=== PATIENT | female | born 1960 | race Two or more races ===

== ENCOUNTER 2020-05-05 12:31 | Outpatient (REF) | payer OTHER, SELFPAY | END 2020-05-05 12:32 | disposition home or self-care (01) | LOC: HO.LAB 12:31 | PROVIDERS: PCP Internal Medicine; Visit Provider Urology | DX: N39.0 Urinary tract infection, site not specified (principal) | CPT/HCPCS: 87086; 87088; 87186 ==

== ENCOUNTER → 2020-10-16 09:46 | Outpatient (BNVA) | payer OTHER, SELFPAY | PROVIDERS: PCP Internal Medicine; Visit Provider Urology | DX: R32 Unspecified urinary incontinence (principal) | CPT/HCPCS: 99212 ==

== ENCOUNTER → 2020-12-11 09:45 | Outpatient (BNVA) | payer OTHER, SELFPAY | PROVIDERS: PCP Internal Medicine | DX: R32 Unspecified urinary incontinence (principal) | CPT/HCPCS: 99212 ==

== ENCOUNTER → 2021-03-30 14:48 | Outpatient (BNVA) | payer OTHER, SELFPAY | PROVIDERS: PCP Hospitalist ==

== ENCOUNTER 2021-04-23 11:21 | Outpatient (RCR) | payer OTHER, SELFPAY ==
--- NOTE | 2021-04-23 13:09 | MHC.PT.EP ---
[facility] [place] Office [place] Office [place] Office [address] Dilip Aguillon [address] [phone] F: [phone] F: [phone] F: [phone] F: [phone] Physical Therapy Plan of Care Date of Evaluation: Date of Surgery: Diagnosis: unspecified urinary incontinence. Assessment: The patient arrived reporting severe mixed urinary incontinence including Stress, Urge, and functional. This has negatively affected her quality of life. She has incontinence that causes her to have to wear a large pad at all times. This saturated pad irritates the skin in her bikini line. 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 This limits her ability to use the bathroom. She also reports fecal incontinence. She is a good candidate for skilled pelvic floor rehab to discuss bladder irritants, diet and lifestyle changes, as well as an internal pelvic muscle exam to assess her strength. The patient deferred internal exam today. Pt also educated about decreasing pressure on her abdomen with her clothing and during functional movements. Frequency and Duration: The patient will be seen 1x/week x 4 weeks. Short Term Goals: 1. Pt to be able to correctly activate her PFM to allow improved support to bowel and bladder. 2. Pt to be able to demonstrate diaphragmatic breathing to improve pressure exchange and intra abdominal load management. [facility] Goals: 3. Pt to be educated on bladder irritants in order to decrease UI triggers 4. Pt to complete a voiding log in order to accurately assess her bladder habits 5. Pt to be educated on behavior training to help decrease urge incontinence. Treatment Plan: Modalities to reduce pain, spasms and effusion. Manual therapy to restore motion and function. Therapeutic exercise to improve strength and flexibility. Neuromuscular re-education for posture and balance. Therapeutic activities to return to functional activities of daily living. Electronically signed by: Please sign and return to therapist. Thank you for your referral.
== END 2021-07-06 11:59 | disposition home or self-care (01) ==
LOC: HO.PT 11:21
PROVIDERS: PCP Hospitalist
DX: R32 Unspecified urinary incontinence (principal)
CPT/HCPCS: 97112; 97163; 97530

== ENCOUNTER → 2021-08-14 08:21 | Outpatient (BNVA) | payer OTHER, SELFPAY | PROVIDERS: PCP Hospitalist | DX: R32 Unspecified urinary incontinence (principal); N39.0 Urinary tract infection, site not specified | CPT/HCPCS: 99212 ==

== ENCOUNTER 2021-09-16 07:25 | Emergency (ER) | payer OTHER, SELFPAY ==
--- NOTE | ~2021-09-16 | CT_ITS ---
EXAMINATION: CT ABDOMEN AND PELVIS WITHOUT CONTRAST CLINICAL INFORMATION: Left-sided abdominal pain. COMPARISON: None TECHNIQUE: Multidetector volumetric imaging was performed from the superior aspect of the liver through the pubic symphysis. Sagittal and coronal reformatted images were obtained on the technologist's workstation. Lack of intravenous and oral contrast limits visceral evaluation. This CT examination was performed using dose optimization techniques as appropriate, variously including the following: *Automated exposure control *Adjustment of mA and/or kV according to patient size (this includes techniques or standardized protocols for targeted exams where dose is matched to indication/reason for exam; i.e. extremities or head) *Use of iterative reconstruction technique DLP: 1139 mGy-cm FINDINGS: LUNG BASES: Mild bibasilar linear atelectasis/scarring. No pleural or pericardial effusions. LIVER, GALLBLADDER, AND BILIARY TREE: Mild diffuse decreased hepatic attenuation with minimal focal fatty sparing adjacent to gallbladder. Minimally distended gallbladder without surrounding abnormality. PANCREAS: Mild fatty infiltration in the head without surrounding abnormality. No pancreatic ductal dilatation. SPLEEN: Unremarkable. ADRENAL GLANDS: Unremarkable. KIDNEYS AND URETERS: The kidneys are normal in size, shape, and attenuation. No hydronephrosis, hydroureter, or calculi seen. No perinephric stranding. BLADDER: Unremarkable. GASTROINTESTINAL TRACT: The stomach, small bowel and appendix are unremarkable. The colon and rectum are unremarkable. ABDOMINAL WALL: No significant hernia is appreciated. LYMPH NODES: No lymphadenopathy. VASCULAR: Unremarkable. PELVIC VISCERA: Unremarkable. OSSEOUS STRUCTURES: Unremarkable. CT/CT abdomen pelvis wo con IMPRESSION: 1. No acute intra-abdominal/pelvic abnormality to explain the patient's pain. 2. Hepatic steatosis. Fleischner guidelines were followed.
[2021-09-16 07:28] VITALS: BP 168/48; PULSE 88; RESP 16; TEMP 35.9; O2SAT 100; BMI 39.6
--- NOTE | 2021-09-16 08:39 | ED.ABDPAIN ---
HPI - Abdominal Pain General Chief Complaint: Abdominal Pain Stated Complaint: painfull ball in abd Time Seen by Provider: 09/16/21 08:26 Source: patient Mode of arrival: ambulatory Limitations: no limitations History of Present Illness HPI narrative: 60-year-old female came in for evaluation of left-sided abdominal pain and feeling bulging of left upper quadrant. Patient's symptoms started few months ago and gradually getting worse, patient was seen and evaluated by her PCP diagnosed with muscular pain. Patient presented today for feeling the pain is worse, pain described as severe 10/10 left upper abdominal and dull aching pain, no radiation, no aggravating factors, no relieving factors. No other symptoms associated with the pain. Normal bowel movement, no nausea, no vomiting, no recent unintentional loss of weight. Related Data Home Medications Medication Instructions Recorded Confirmed alcohol swabs pad TOPICAL TID 10/16/20 amlodipine 5 mg tablet 5 mg PO DAILY 10/16/20 apixaban 5 mg tablet 5 mg PO BID 10/16/20 atorvastatin 10 mg tablet 10 mg PO DAILY 10/16/20 blood sugar diagnostic #10 ea 10/16/20 cholecalciferol (vitamin D3) 50 50 mcg PO BEDTIME 10/16/20 mcg (2,000 unit) capsule citalopram 20 mg tablet 20 mg PO DAILY 10/16/20 citalopram 40 mg tablet 40 mg PO DAILY 10/16/20 diclofenac sodium 1 % topical gel g TOPICAL 10/16/20 fluticasone propionate 50 0 mcg INTRANASAL BID 10/16/20 mcg/actuation nasal spray,suspension hydrochlorothiazide 25 mg tablet 25 mg PO QAM 10/16/20 lancets 30 gauge #100 ea 10/16/20 loratadine 10 mg tablet 10 mg PO DAILY 10/16/20 losartan 100 mg tablet 100 mg PO DAILY 10/16/20 metformin 850 mg tablet 850 mg PO BID 10/16/20 metoprolol succinate 100 mg 100 mg PO DAILY 10/16/20 tablet,extended release 24 hr montelukast 10 mg tablet 10 mg PO DAILY 10/16/20 omeprazole 20 mg capsule,delayed 20 mg PO DAILY 10/16/20 release oxycodone 30 mg tablet 30 mg PO TID PRN 10/16/20 pen needle, diabetic 32 gauge x #50 ea 10/16/20 temazepam 30 mg capsule 30 mg PO BEDTIME PRN 10/16/20 triamcinolone acetonide 0.025 % appl TOPICAL 10/16/20 topical cream tizanidine 4 mg tablet 4 mg PO TID PRN 12/11/20 12/11/20 benzonatate 100 mg capsule 100 mg PO TID 08/14/21 dulaglutide 3 mg/0.5 mL mg SUBCUT QWEEK 08/14/21 subcutaneous pen injector (Trulicity) gemfibrozil 600 mg tablet 600 mg PO BID 08/14/21 insulin glargine 100 unit/mL (3 unit SUBCUT BEDTIME 08/14/21 mL) subcutaneous pen (Lantus Solostar U-100 Insulin) insulin lispro 100 unit/mL 30 unit SUBCUT TID 08/14/21 subcutaneous pen metronidazole 0.75 % vaginal gel 1 appful VAGINAL BEDTIME 08/14/21 Previous Rx's Medication Instructions Recorded incontinence pad, liner, disp #90 ea 10/16/20 (Poise Pads) nitrofurantoin macrocrystal 50 mg 50 mg PO BEDTIME 10 Days #10 cap 12/31/20 capsule Allergies Allergy/AdvReac Type Severity Reaction Status Date / Time oxybutynin Allergy Severe Difficulty Verified 08/14/21 08:39 Swallowing tolterodine Allergy Severe Difficulty Verified 08/14/21 08:39 Swallowing acetaminophen [Percocet] Allergy Unknown hives Verified 08/14/21 08:39 aspirin Allergy Unknown anaphylaxis Verified 08/14/21 08:39 citalopram Allergy Unknown Unknown Verified 08/14/21 08:39 gabapentin Allergy Unknown hives Verified 08/14/21 08:39 hydrocodone [Vicodin] Allergy Unknown hives Verified 08/14/21 08:39 naproxen [Naprosyn] Allergy Unknown anaphylaxis Verified 08/14/21 08:39 oxycodone [Percocet] Allergy Unknown hives Verified 08/14/21 08:39 sertraline Allergy Unknown Unknown Verified 08/14/21 08:39 peanut Allergy Anaphylaxis Verified 09/16/21 09:19 solifenacin AdvReac phlegm Unverified 08/27/21 13:11 Vicodin Allergy Unknown hives Uncoded 10/22/19 00:00 Review of Systems Review of Systems All other systems are reviewed and are negative Constitutional: Reports as per HPI and Reports no additional constitutional complaints Eyes: Reports as per HPI and Reports no additional eye complaints Reports system reviewed and no additional complaints, except as documented Cardiovascular: Reports as per HPI and Reports no additional cardiovascular complaints Respiratory: Reports as per HPI and Reports no additional respiratory complaints Gastrointestinal: Reports as per HPI and Reports no additional gastrointestinal complaints Genitourinary: Reports no additional female genitourinary complaints Musculoskeletal: Reports no additional musculoskeletal complaints Skin/Breast: Reports system reviewed and no additional complaints, except as docu Psychiatric: Reports no additional psychiatric complaints Endocrine: Reports no additional endocrine complaints Hematologic/Lymphatic: Reports no additional hematologic/lymphatic complaints Allergic/Immunologic: Reports no additional allergic/immunologic complaints Reports system reviewed and no additional complaints, except as documented and Reports Abnormal speech present [facility] Past Medical History Medical History Diabetes mellitus HTN (hypertension) Urinary incontinence Urinary incontinence UTI (urinary tract infection) Surgical History History of surgery Social History Social History Alcohol intake: never Patient Tobacco Use Status: Never used Tobacco Use of substances other than those prescribed or required for medical reasons: No Advance Directives: No Advance Directives Information Provided: No Physical Exam ED Vital Signs: Vital Signs - 24 hr 09/16/21 07:28 09/16/21 08:54 09/16/21 10:18 Temperature 96.6 F L Pulse Rate 88 84 92 Respiratory Rate 16 16 16 Blood Pressure 168/48 H 130/74 104/76 Pulse Oximetry 100 100 98 BMI result Body Mass Index 39.6 Vital signs have been reviewed as appeared to be correct. Blood pressure normal. Heart rate normal. Respiration rate normal. Temperature normal. Oxygen saturation normal. Appearance: Alert. Oriented X3. No acute distress. Head: Normal external exam. Normocephalic. Atraumatic. No Butt signs noted. No raccoon eyes noted Eyes: PERRLA. EOMI. Conjunctiva and sclera normal. Eyelids normal. ENT: TM's Normal. Pharynx normal. Uvula midline. Moist mucous membranes. No trismus noted. No drooling noted. No muffled voice noted. Neck: Normal inspection. Neck supple. FROM. No adenopathy. Thyroid Normal. No meningeal signs. No neck mass noted. CVS: Normal heart rate and rhythm. Heart sound normal. No murmurs noted. Pulses normal throughout. Respiratory: No respiratory distress. Painless inspiration. Breath sounds normal. No wheezes/rales/rhonchi noted. Chest nontender. No accessory muscle usage noted or decreased air movement noted. Abdomen: Soft, mild left upper quadrant tenderness, no palpable mass. No guarding, no rebound tenderness. Bowel sounds normal in all 4 quadrants. No distention noted. No organomegaly noted. No visible injury noted. Back: No CVA tenderness. Full range of motion noted. Skin: Skin warm and dry. Normal skin color. Normal skin turgor. No rashes/lesions/lacerations noted. Extremities: No lower extremity edema. Extremities exhibit normal range of motion. Extremities nontender. Neuro: Oriented X 3. Cranial nerve exam: II-XII are grossly intact No motor deficit. No sensory deficit. Reflexes normal. Course Course Course Narrative: Assessment and plan. 60-year-old female came in with left upper quadrant tenderness for the past few weeks, has been evaluated by her PCP and was told it was muscular, returned today for increased pain in the left upper abdominal area, patient declined chest pain or difficulty breathing, patient had a CT of the abdomen pelvis which was unremarkable for hernia or colon pathology. Patient was reassured, will discharge to follow-up with her PCP and continue with heating pad and using [id number] Tylenol for pain control. MDM - Abdominal Pain Lab Data Attestation: I reviewed the patient's lab results. Result diagrams: 09/16/21 08:44 09/16/21 08:44 Labs: Lab Results 09/16/21 09/16/21 09/16/21 Range/Units 08:44 08:44 10:55 WBC 8.2 (4.8-10.8) X10*3/uL RBC 4.24 (4.20-5.50) X10*6/uL Hgb 12.6 (12.0-16.0) g/dl Hct 38.4 (37.0-47.0) % MCV 90.6 (80.0-98.0) fL MCH 29.7 (27.0-33.0) pg MCHC 32.8 (31.0-35.0) g/dl RDW 13.5 (11.0-16.0) % Plt Count 229 (160-400) X10*3/uL MPV 9.2 L (9.4-12.3) fL Immature Gran % (Auto) 0.4 (0.0-0.4) % Neut % (Auto) 59.5 (45-73) % Lymph % (Auto) 29.3 (20-40) % [place]ven % (Auto) 6.1 (2-11) % Eos % (Auto) 4.3 H (0-4) % Baso % (Auto) 0.4 (0-2) % Lymph # (Auto) 2.4 (1.2-4.9) X10*3/uL [place]ven # (Auto) 0.5 (0.1-1.2) X10*3/uL Eos # (Auto) 0.4 (0.0-0.4) X10*3/uL Baso # (Auto) 0.0 (0.0-0.2) X10*3/uL Abs Immat Gran (auto) 0.03 (0.00-0.03) X10*3/uL Absolute Neuts (auto) 4.9 (2.0-8.3) x10*3/uL Absolute Nucleated RBC 0.000 (0.0-0.012) X10*3/uL Nucleated RBC % (auto) 0.0 (0.0-0.2) /100WBC Sodium 136 (135-145) mmol/L Potassium 4.5 (3.3-5.1) mmol/L Chloride 100 (96-108) mmol/L Carbon Dioxide 26 (22-29) mmol/L Anion Gap 15 (12-20) BUN 15 (9-16) mg/dL Creatinine 1.09 (0.5-1.4) mg/dL Estim Creat Clear Calc 61.6 Estimated GFR 52 Random Glucose 242 H (60-115) mg/dL Calcium 10.0 (8.4-10.2) mg/dL Total Bilirubin 0.8 (0.0-1.0) mg/dL Direct Bilirubin 0.3 (0.0-0.5) mg/dL AST 18 (5-31) U/L ALT 23 (0-31) U/L Alkaline Phosphatase 84 (39-117) U/L Total Protein 6.5 (6.5-8.0) g/dL Albumin 3.9 (3.5-5.0) g/dL Lipase 34 (8-78) U/L Urine Color YELLOW Urine Appearance CLEAR Urine pH 6.0 (5.0-8.0) Ur Specific [place] 1.015 (1.005-1.025) Urine Protein NEG (NEG-TRACE) MG/DL Urine Glucose (UA) NEG (NEG) MG/DL Urine Ketones NEG (NEG) MG/DL Urine Blood NEG (NEG) Urine Nitrite NEG (NEG) Ur Leukocyte Esterase NEG (NEG) Imaging Data CT scan - abdomen: Attestation: I personally reviewed and interpreted this imaging study as follows: Radiologist's impression: 1. No acute intra-abdominal/pelvic abnormality to explain the patient's pain. 2. Hepatic steatosis.? ? Discharge Plan Discharge Clinical Impression: Abdominal pain Patient Disposition: Home, Self-Care Instructions: Abdominal Pain (ED) Prescriptions: No Action nitrofurantoin macrocrystal 50 mg capsule 50 mg PO BEDTIME 10 Days Qty: 10 1RF Rx Instructions: must administer with a meal/food (DME) lancets 30 gauge misc See Rx Instructions ea .ROUTE TID Qty: 100 0RF Rx Instructions: As directed (DME) pen needle, diabetic 32 gauge x 5/32 needle See Rx Instructions ea .ROUTE .MEDSUPPLY Qty: 50 0RF Rx Instructions: As directed cholecalciferol (vitamin D3) 50 mcg (2,000 unit) capsule 50 mcg PO BEDTIME 0RF diclofenac sodium 1 % gel topical 0RF loratadine 10 mg tablet 10 mg PO DAILY 0RF fluticasone propionate 50 mcg/actuation spray,suspension 0 mcg intranasal BID 0RF losartan 100 mg tablet 100 mg PO DAILY 0RF hydrochlorothiazide 25 mg tablet 25 mg PO QAM 0RF alcohol swabs Pads, Medicated topical TID 0RF montelukast 10 mg tablet 10 mg PO DAILY 0RF omeprazole 20 mg capsule,delayed release(DR/EC) 20 mg PO DAILY 0RF temazepam 30 mg capsule 30 mg PO BEDTIME PRN0RF citalopram 20 mg tablet 20 mg PO DAILY 0RF amlodipine 5 mg tablet 5 mg PO DAILY 0RF (DME) FreeStyle Lite Strips Strip See Rx Instructions strip Not Applicable TID Qty: 10 0RF Rx Instructions: As directed metformin 850 mg tablet 850 mg PO BID 0RF metoprolol succinate 100 mg tablet extended release 24 hr 100 mg PO DAILY 0RF atorvastatin 10 mg tablet 10 mg PO DAILY 0RF citalopram 40 mg tablet 40 mg PO DAILY 0RF Eliquis 5 mg tablet 5 mg PO BID 0RF oxycodone 30 mg tablet 30 mg PO TID PRN0RF triamcinolone acetonide 0.025 % cream topical 0RF (DME) Poise Pads Pad See Rx Instructions .ROUTE .MEDSUPPLY Qty: 90 0RF Rx Instructions: As directed tizanidine 4 mg tablet 4 mg PO TID PRN0RF benzonatate 100 mg capsule 100 mg PO TID 0RF metronidazole 0.75 % gel 1 appful vaginal BEDTIME 0RF Trulicity 3 mg/0.5 mL pen injector subcut QWEEK 0RF Lantus Solostar U-100 Insulin 100 unit/mL (3 mL) insulin pen subcut BEDTIME 0RF insulin lispro 100 unit/mL insulin pen 30 unit subcut TID 0RF gemfibrozil 600 mg tablet 600 mg PO BID 0RF Referrals: Bagn Hilario MD [Primary Care Provider] -
[2021-09-16 08:52] LABS: MANUAL DIFF FLAG NO
[2021-09-16 08:54] VITALS: BP 130/74; PULSE 84; RESP 16; O2SAT 100
[2021-09-16 08:56] LABS: Basophils Percent Auto 0.4 % (0-2); Eosinophils Absolute Auto 0.4 X10*3/uL (0.0-0.4); Eosinophils Percent Auto 4.3 % (0-4); Hematocrit 38.4 % (37.0-47.0); Hemoglobin 12.6 g/dl (12.0-16.0); Imm Gran Abs Auto 0.03 X10*3/uL (0.00-0.03); Imm Gran Pct Auto 0.4 % (0.0-0.4); Lymphocytes Absolute Auto 2.4 X10*3/uL (1.2-4.9); Lymphocytes Percent Auto 29.3 % (20-40); Mean Corpuscular HGB Conc 32.8 g/dl (31.0-35.0); Mean Corpuscular Hemoglobin 29.7 pg (27.0-33.0); Mean Corpuscular Volume 90.6 fL (80.0-98.0); Mean Platelet Volume 9.2 fL (9.4-12.3); Monocytes Absolute Auto 0.5 X10*3/uL (0.1-1.2); Monocytes Percent Auto 6.1 % (2-11); Neutrophils Absolute Auto 4.9 x10*3/uL (2.0-8.3); Neutrophils Percent Auto 59.5 % (45-73); Platelet Count 229 X10*3/uL (160-400); Red Blood Count 4.24 X10*6/uL (4.20-5.50); Red Cell Distribution Width 13.5 % (11.0-16.0); White Blood Count 8.2 X10*3/uL (4.8-10.8)
--- NOTE | 2021-09-16 08:56 | PC.NURSE ---
Patient reports abdominal pain in LUQ, feels like a ball. Patient is alert and oriented. Respirations regular and even. Skin PWD. Lower left leg amputation. Labs drawn by [facility] via straight stick. Patient tolerated well. Gone to CT scan at this time. Will continue to monitor.
[2021-09-16 09:17] LABS: Alanine Aminotransferase 23 U/L (0-31); Albumin Level 3.9 g/dL (3.5-5.0); Alkaline Phosphatase 84 U/L (39-117); Anion Gap 15 (12-20); Aspartate Amino Transferase 18 U/L (5-31); Bilirubin Direct 0.3 mg/dL (0.0-0.5); Bilirubin Total 0.8 mg/dL (0.0-1.0); Blood Urea Nitrogen 15 mg/dL (9-16); Carbon Dioxide 26 mmol/L (22-29); Chloride 100 mmol/L (96-108); Creatinine Clr Calc Pharmacy 61.6; Estimated Glomerular Filt Rate 52; Glucose Random 242 mg/dL (60-115); Lipase 34 U/L (8-78); Potassium 4.5 mmol/L (3.3-5.1); Sodium 136 mmol/L (135-145); Total Protein 6.5 g/dL (6.5-8.0)
[2021-09-16 10:18] VITALS: BP 104/76; PULSE 92; RESP 16; O2SAT 98
[2021-09-16 11:05] LABS: Appearance Urine CLEAR; Color Urine YELLOW; Glucose Urine UA NEG (NEG); Leukocyte Esterase Urine NEG (NEG); Nitrite Urine NEG (NEG); Specific Gravity - Urine 1.015 (1.005-1.025); Urine Blood NEG (NEG); Urine Ketones NEG (NEG); Urine Protein NEG (NEG-TRACE)
[2021-09-16 11:48] VITALS: BP 136/80; PULSE 99; RESP 18; TEMP 36.8; O2SAT 97
== END 2021-09-16 11:58 | disposition home or self-care (01) ==
PROVIDERS: Emergency Provider Emergency Medicine; PCP Hospitalist
DX: R10.32 Left lower quadrant pain (principal); R10.12 Left upper quadrant pain; Z79.899 Other long term (current) drug therapy
CPT/HCPCS: 36415; 74176; 80048; 80076; 81003; 83690; 85025; 99284

== ENCOUNTER 2021-11-03 17:38 | Emergency (ER) | payer OTHER, SELFPAY ==
--- NOTE | ~2021-11-03 | XR_ITS ---
EXAMINATION: XR SHOULDER, RIGHT CLINICAL INFORMATION: Pain and limited range of motion COMPARISON: None TECHNIQUE: AP and transscapular Y views of the right shoulder. FINDINGS: No fracture or dislocation. Assessment for joint space narrowing is limited due to the absence of a Grashey or axillary view. No large osteophytes glenohumeral joint. Acromiohumeral interval is maintained. No evidence of calcific tendinopathy of the rotator cuff. AC joint is congruent and intact with minimal subchondral sclerosis and tiny osteophytes. Right lung is grossly clear. Facet arthrosis in the mid and lower cervical spine noted. XR/XR shoulder RT min 2V IMPRESSION: No fracture or dislocation identified.
--- NOTE | ~2021-11-03 | XR_ITS ---
EXAMINATION: XR TIBIA AND FIBULA, LEFT CLINICAL INFORMATION: Pain COMPARISON: None TECHNIQUE: AP and lateral views of the left tibia and fibula were obtained. FINDINGS: Status post below the knee amputation. Amputation margins appear well-defined. No erosive or destructive change. No aggressive periostitis. Small amount of curvilinear heterotopic bone just distal to the fibular amputation margin. No tracking soft tissue gas. No knee joint effusion. No large osteophytes the knee. No osseous lesion. XR/XR tibia fibula LT 2V IMPRESSION: 1. No osseous injury, radiographic evidence of advanced osteomyelitis, or knee joint effusion.
[2021-11-03 19:00] VITALS: BP 149/101; PULSE 96; RESP 15; TEMP 36.1; O2SAT 95; BMI 39.6
--- NOTE | 2021-11-03 19:12 | PC.NURSE ---
pt states that she is allergic to percocet, but regularly takes tylenol with no issues
[2021-11-03] MEDS: Acetaminophen 325 MG TABLET 975 MG PO (19:13)
--- NOTE | 2021-11-03 20:41 | ED_ITS ---
HPI - Fall General Chief Complaint: Fall Stated Complaint: fall- left leg injury Source: patient Mode of arrival: ambulatory Limitations: no limitations History of Present Illness HPI Narrative: 61-year-old female with left [id number] amp presents for injuries sustained from a fall that occurred last night. States that she lost balance while transferring from chair to bed. She reports right shoulder pain and left [id number] amputation stump pain she does have a bruise to the left stump. She does not report any other injuries from that fall. MD complaint: fall Onset (ago): day(s) (1) Fall from: chair Fall witnessed: yes, by bystander Place fall occurred: home Loss of consciousness: none Prolonged down time: no Symptoms prior to fall: none Context: tripped/slipped Location of injury - extremities: left: lower leg and right: shoulder Severity: moderate Severity scale (1-10): 6 Quality: aching Related Data Home Medications Medication Instructions Recorded Confirmed alcohol swabs pad topical TID 10/16/20 amlodipine 5 mg tablet 5 mg PO DAILY 10/16/20 apixaban 5 mg tablet 5 mg PO BID 10/16/20 atorvastatin 10 mg tablet 10 mg PO DAILY 10/16/20 blood sugar diagnostic #10 ea 10/16/20 cholecalciferol (vitamin D3) 50 50 mcg PO BEDTIME 10/16/20 mcg (2,000 unit) capsule citalopram 20 mg tablet 20 mg PO DAILY 10/16/20 citalopram 40 mg tablet 40 mg PO DAILY 10/16/20 diclofenac sodium 1 % topical gel g topical 10/16/20 fluticasone propionate 50 0 mcg intranasal BID 10/16/20 mcg/actuation nasal spray,suspension hydrochlorothiazide 25 mg tablet 25 mg PO QAM 10/16/20 lancets 30 gauge #100 ea 10/16/20 loratadine 10 mg tablet 10 mg PO DAILY 10/16/20 losartan 100 mg tablet 100 mg PO DAILY 10/16/20 metformin 850 mg tablet 850 mg PO BID 10/16/20 metoprolol succinate 100 mg 100 mg PO DAILY 10/16/20 tablet,extended release 24 hr montelukast 10 mg tablet 10 mg PO DAILY 10/16/20 omeprazole 20 mg capsule,delayed 20 mg PO DAILY 10/16/20 release oxycodone 30 mg tablet 30 mg PO TID PRN 10/16/20 pen needle, diabetic 32 gauge x #50 ea 10/16/20 temazepam 30 mg capsule 30 mg PO BEDTIME PRN 10/16/20 triamcinolone acetonide 0.025 % appl topical 10/16/20 topical cream tizanidine 4 mg tablet 4 mg PO TID PRN 12/11/20 12/11/20 benzonatate 100 mg capsule 100 mg PO TID 08/14/21 dulaglutide 3 mg/0.5 mL mg subcut QWEEK 08/14/21 subcutaneous pen injector (Trulicity) gemfibrozil 600 mg tablet 600 mg PO BID 08/14/21 insulin glargine 100 unit/mL (3 unit subcut BEDTIME 08/14/21 mL) subcutaneous pen (Lantus Solostar U-100 Insulin) insulin lispro 100 unit/mL 30 unit subcut TID 08/14/21 subcutaneous pen metronidazole 0.75 % vaginal gel 1 appful vaginal BEDTIME 08/14/21 Previous Rx's Medication Instructions Recorded incontinence pad, liner, disp #90 ea 10/16/20 (Poise Pads) nitrofurantoin macrocrystal 50 mg 50 mg PO BEDTIME 10 days #10 caps 12/31/20 capsule Allergies Allergy/AdvReac Type Severity Reaction Status Date / Time oxybutynin Allergy Severe Difficulty Verified 08/14/21 08:39 Swallowing tolterodine Allergy Severe Difficulty Verified 08/14/21 08:39 Swallowing acetaminophen [Percocet] Allergy Unknown hives Verified 08/14/21 08:39 aspirin Allergy Unknown anaphylaxis Verified 08/14/21 08:39 citalopram Allergy Unknown Unknown Verified 08/14/21 08:39 gabapentin Allergy Unknown hives Verified 08/14/21 08:39 hydrocodone [Vicodin] Allergy Unknown hives Verified 08/14/21 08:39 naproxen [Naprosyn] Allergy Unknown anaphylaxis Verified 08/14/21 08:39 oxycodone [Percocet] Allergy Unknown hives Verified 08/14/21 08:39 sertraline Allergy Unknown Unknown Verified 08/14/21 08:39 peanut Allergy Anaphylaxis Verified 09/16/21 09:19 solifenacin AdvReac phlegm Unverified 08/27/21 13:11 Vicodin Allergy Unknown hives Uncoded 10/22/19 00:00 Review of Systems Review of Systems: Constitutional: No Fever, No Chills ENT/Mouth: No Ear Pain, No Hoarseness, No sore throat Eyes: No Eye Pain, No Swelling, No Redness, No Foreign Body Cardiovascular: No Chest Pain, No SOB Respiratory: No Cough, No Dyspnea Gastrointestinal: No Nausea, No Vomiting, No Diarrhea, No abdominal Pain Genitourinary: No Dysuria, No Hematuria Musculoskeletal: positive right shoulder pain, No Myalgias, No Joint Swelling Skin: Positive brace into left AKA, No rash Neuro: No Weakness, No Numbness, No Paresthesias, No Loss of Consciousness, No Dizziness, No Headache Psych: No Anxiety/Panic, No Depression Heme/Lymph: no easy bruising, no Lymphadenopathy Endocrine: No Polyuria, No Polydipsia Yes all other systems are reviewed and are negative [facility] Past Medical History Attestation statement: The following information was validated with the patient. Source: old records reviewed Medical History Diabetes mellitus HTN (hypertension) Urinary incontinence Surgical History History of surgery Social History Social History Alcohol intake: never Patient Tobacco Use Status: Never used Tobacco Advance Directives: No Advance Directives Information Provided: Yes Physical Exam Vital Signs: Vital Signs: Last Vital Signs Temp 97 F 11/03/21 19:00 Pulse 96 11/03/21 19:00 Resp 15 11/03/21 19:00 BP 149/101 H 11/03/21 19:00 Pulse Ox 95 11/03/21 19:00 O2 Del Method 11/03/21 19:00 BMI result Body Mass Index 39.6 Appearance: Alert. Oriented X3. No acute distress. Eyes: Pupils equal, round and reactive to light. ENT: Pharynx normal. Neck: Normal inspection. Neck supple. CVS: Normal heart rate and rhythm. Pulses normal. Respiratory: No respiratory distress. Breath sounds normal. Abdomen: Soft and nontender. Skin: 1 cm x 1 cm superficial abrasion noted to left AKA, Skin warm and dry. Normal skin color. Normal skin turgor. Extremities: No lower extremity edema. Full range of motion to all extremities. No crepitus. Left AKA. Neuro: No motor deficit. No sensory deficit. Cranial nerves 2-12 intact. Course Course Course Narrative: 61-year-old female presents for injury sustained from a fall that occurred yesterday. Patient stated that she was transfering from a chair and slipped. No head injuries or prodromal symptoms. Is asking for x-rays. X-rays of the left AKA and right shoulder are negative for acute findings. Patient does have full range of motion no crepitus. No other injuries reported. X-rays negative for acute findings require emergent intervention. Patient does have significant pain management at home, oxycodone 30 mg b.i.d. patient does understand that I cannot prescribe her any further medications. She will take her home dosage. Patient verbalized understanding of and agrees plan of care discharge home. Verbalized understanding of signs symptoms indicating need for emergent intervention. MDM - Fall Differential Diagnosis Differential diagnosis: Likely dislocation and fracture Medical Records Attestation: I reviewed the patient's medical records. Lab Data Attestation: I reviewed the patient's lab results. Imaging Data Right shoulder x-ray: Attestation: I personally reviewed and interpreted this imaging study as follows: Radiologist's impression: EXAMINATION: XR SHOULDER, RIGHT CLINICAL INFORMATION: Pain and limited range of motion? COMPARISON: None? TECHNIQUE: AP and transscapular Y views of the right shoulder. FINDINGS: No fracture or dislocation. Assessment for joint space narrowing is limited due to the absence of a Grashey or axillary view. No large osteophytes glenohumeral joint. Acromiohumeral interval is maintained. No evidence of calcific tendinopathy of the rotator cuff. AC joint is congruent and intact with minimal subchondral sclerosis and tiny osteophytes. Right lung is grossly clear. Facet arthrosis in the mid and lower cervical spine noted.? XR/XR shoulder RT min 2V IMPRESSION: No fracture or dislocation identified. Tib-fib x-ray: Attestation: I personally reviewed and interpreted this imaging study as follows: Radiologist's impression: COMPARISON: None? TECHNIQUE: AP and lateral views of the left tibia and fibula were obtained. FINDINGS: Status post below the knee amputation. Amputation margins appear well-defined. No erosive or destructive change. No aggressive periostitis. Small amount of curvilinear heterotopic bone just distal to the fibular amputation margin. No tracking soft tissue gas. No knee joint effusion. No large osteophytes the knee. No osseous lesion. XR/XR tibia fibula LT 2V IMPRESSION: ? 1. No osseous injury, radiographic evidence of advanced osteomyelitis, or knee joint effusion. ? Discharge Plan Discharge Clinical Impression: Muscle strain, Bruise Patient Disposition: Home, Self-Care Instructions: Muscle Strain (ED), Contusion in Adults (ED) Additional Instructions: You were evaluated for injuries sustained from a fall. X-rays are negative to the right shoulder and the left [id number] amp. Injuries are consistent with a muscle strain and bruising. Please take your pain medications at home as prescribed Follow-up with primary care physician as needed. Thank you for choosing this emergency department for evaluation. Please follow-up with primary care physician as needed. Return to the emergency department for any new, concerning, or worsening symptoms. Prescriptions: No Action nitrofurantoin macrocrystal 50 mg capsule 50 mg PO BEDTIME 10 Days Qty: 10 1RF Rx Instructions: must administer with a meal/food (DME) lancets 30 gauge misc See Rx Instructions .ROUTE TID Qty: 100 Rx Instructions: As directed (DME) pen needle, diabetic 32 gauge x 5/32 needle See Rx Instructions .ROUTE .MEDSUPPLY Qty: 50 Rx Instructions: As directed cholecalciferol (vitamin D3) 50 mcg (2,000 unit) capsule 50 mcg PO BEDTIME diclofenac sodium 1 % gel topical loratadine 10 mg tablet 10 mg PO DAILY fluticasone propionate 50 mcg/actuation spray,suspension 0 mcg intranasal BID losartan 100 mg tablet 100 mg PO DAILY hydrochlorothiazide 25 mg tablet 25 mg PO QAM alcohol swabs Pads, Medicated topical TID montelukast 10 mg tablet 10 mg PO DAILY omeprazole 20 mg capsule,delayed release(DR/EC) 20 mg PO DAILY temazepam 30 mg capsule 30 mg PO BEDTIME PRN citalopram 20 mg tablet 20 mg PO DAILY amlodipine 5 mg tablet 5 mg PO DAILY (DME) FreeStyle Lite Strips Strip See Rx Instructions Not Applicable TID Qty: 10 Rx Instructions: As directed metformin 850 mg tablet 850 mg PO BID metoprolol succinate 100 mg tablet extended release 24 hr 100 mg PO DAILY atorvastatin 10 mg tablet 10 mg PO DAILY citalopram 40 mg tablet 40 mg PO DAILY Eliquis 5 mg tablet 5 mg PO BID oxycodone 30 mg tablet 30 mg PO TID PRN triamcinolone acetonide 0.025 % cream topical (DME) Poise Pads Pad See Rx Instructions .ROUTE .MEDSUPPLY Qty: 90 0RF Rx Instructions: As directed tizanidine 4 mg tablet 4 mg PO TID PRN benzonatate 100 mg capsule 100 mg PO TID metronidazole 0.75 % gel 1 appful vaginal BEDTIME Trulicity 3 mg/0.5 mL pen injector subcut QWEEK Lantus Solostar U-100 Insulin 100 unit/mL (3 mL) insulin pen subcut BEDTIME insulin lispro 100 unit/mL insulin pen 30 unit subcut TID gemfibrozil 600 mg tablet 600 mg PO BID Referrals: Bagn Hilario MD [Primary Care Provider] -
== END 2021-11-03 22:17 | disposition home or self-care (01) ==
PROVIDERS: Emergency Provider Emergency Medicine; PCP Hospitalist
DX: S80.12XA Contusion of left lower leg, initial encounter (principal); T14.8XXA Other injury of unspecified body region, initial encounter; M25.511 Pain in right shoulder; I10 Essential (primary) hypertension; E11.9 Type 2 diabetes mellitus without complications; Z79.891 Long term (current) use of opiate analgesic; Z89.612 Acquired absence of left leg above knee; W07.XXXA Fall from chair, initial encounter; Y93.9 Activity, unspecified; Y92.009 Unspecified place in unspecified non-institutional (private) residence as the place of occurrence of the external cause; Y99.9 Unspecified external cause status
CPT/HCPCS: 73030; 73590; 99283

== ENCOUNTER 2022-01-21 10:56 | Emergency (ER) | payer OTHER, SELFPAY ==
--- NOTE | ~2022-01-21 | CT_ITS ---
EXAMINATION: CT ABDOMEN AND PELVIS WITHOUT CONTRAST CLINICAL INFORMATION: Pain with blood in stool COMPARISON: 09/16/2021 TECHNIQUE: Multidetector volumetric imaging was performed from the superior aspect of the liver through the pubic symphysis. Sagittal and coronal reformatted images were obtained on the technologist's workstation. This CT examination was performed using dose optimization techniques as appropriate, variously including the following: *Automated exposure control *Adjustment of mA and/or kV according to patient size (this includes techniques or standardized protocols for targeted exams where dose is matched to indication/reason for exam; i.e. extremities or head) *Use of iterative reconstruction technique DLP: 1001 mGy-cm FINDINGS: LUNG BASES: Mild basilar atelectasis or scarring. LIVER, GALLBLADDER, AND BILIARY TREE: Liver unremarkable. The gallbladder is unremarkable with no evidence of radiopaque gallstones, gallbladder wall thickening, or obvious pericholecystic inflammatory changes. PANCREAS: Unremarkable. SPLEEN: Unremarkable. ADRENAL GLANDS: Unremarkable. KIDNEYS AND URETERS: The kidneys are normal in size, shape, and attenuation. No hydronephrosis, hydroureter, or calculi seen. No perinephric stranding. BLADDER: Unremarkable. GASTROINTESTINAL TRACT: Nonobstructing bowel pattern. No free fluid. Appendix within normal limits. ABDOMINAL WALL: No significant hernia is appreciated. LYMPH NODES: Normal. VASCULAR: Atherosclerotic changes. PELVIC VISCERA: Unremarkable. OSSEOUS STRUCTURES: Unremarkable. CT/CT abdomen pelvis wo IV con IMPRESSION: No acute finding. The bowel pattern is felt to be nonobstructing. There is no free fluid. Fleischner guidelines were followed.
[2022-01-21 11:11] VITALS: BP 156/81; PULSE 88; RESP 18; TEMP 36.6; O2SAT 98; BMI 40.2
[2022-01-21 12:28] LABS: MANUAL DIFF FLAG NO
[2022-01-21 12:32] LABS: Basophils Percent Auto 0.3 % (0-2); Eosinophils Absolute Auto 0.1 X10*3/uL (0.0-0.4); Eosinophils Percent Auto 0.9 % (0-4); Hematocrit 44.4 % (37.0-47.0); Hemoglobin 14.3 g/dl (12.0-16.0); Imm Gran Abs Auto 0.05 X10*3/uL (0.00-0.03); Imm Gran Pct Auto 0.4 % (0.0-0.4); Lymphocytes Absolute Auto 2.6 X10*3/uL (1.2-4.9); Lymphocytes Percent Auto 20.5 % (20-40); Mean Corpuscular HGB Conc 32.2 g/dl (31.0-35.0); Mean Corpuscular Volume 93.1 fL (80.0-98.0); Mean Platelet Volume 8.7 fL (9.4-12.3); Monocytes Absolute Auto 0.7 X10*3/uL (0.1-1.2); Monocytes Percent Auto 5.8 % (2-11); Neutrophils Absolute Auto 9.3 x10*3/uL (2.0-8.3); Neutrophils Percent Auto 72.1 % (45-73); Platelet Count 244 X10*3/uL (160-400); Red Blood Count 4.77 X10*6/uL (4.20-5.50); Red Cell Distribution Width 13.1 % (11.0-16.0); White Blood Count 12.9 X10*3/uL (4.8-10.8)
[2022-01-21 12:43] LABS: Appearance Urine Clear; Color Urine Yellow; Glucose Urine UA 500 mg/dL (Negative); Leukocyte Esterase Urine Trace (Negative); Nitrite Urine Negative (Negative); UMIC TRIGGER UACC YES; Urine Blood Negative (Negative); Urine Ketones Negative (Negative); Urine Protein Negative (Neg-Trace)
[2022-01-21 12:45] LABS: Anion Gap 13 (12-20); Blood Urea Nitrogen 16 mg/dL (9-16); Calcium 9.6 mg/dL (8.4-10.2); Carbon Dioxide 32 mmol/L (22-29); Chloride 98 mmol/L (96-108); Creatinine Clr Calc Pharmacy 68.9; Estimated Glomerular Filt Rate 59; Glucose Random 125 mg/dL (60-115); Potassium 4.1 mmol/L (3.3-5.1); Sodium 139 mmol/L (135-145)
[2022-01-21 12:46] LABS: Bacteria Urine None Seen (None Seen); Hyaline Casts Urine 0-2 /LPF (0-2); RBC Urine 0-2 /HPF (0-2); WBC Urine 0-5 /HPF (0-5)
[2022-01-21 15:30] LABS: Glucose, Whole Blood 115 mg/dL (60-115)
--- NOTE | 2022-01-21 18:29 | ED_ITS ---
HPI - Abdominal Pain General Chief Complaint: Abdominal Pain Stated Complaint: stomach pain, Vomiting Time Seen by Provider: 01/21/22 13:36 Source: patient Mode of arrival: ambulatory Limitations: no limitations History of Present Illness HPI narrative: 61 y/o female history of left-sided BKA, diabetes, urinary incontinence, hypertension presenting with generalized abdominal pain, nausea, and vomiting for the past 1 month. Patient tells me that on December 18 she underwent carpal tunnel release surgery and that since then she has had persistent nausea and vomiting. She tells me that she feels a bubbling in her stomach that radiates into her chest causing her to vomit and that she has been belching frequently. She reports feeling bloated. She tells me that she was started on medical marijuana about 1 month ago, unsure if this is related. She is on chronic oxycodone due to residual pain to right BKA. She also tells me that she recently stopped taking her omeprazole and Carafate because she thought this was contributing to the vomiting. She has been having fewer bowel movements recently but attributes this to her vomiting, last bowel movement today. She tells me that she vomits about 4x daily. She states that she is unable to keep down most food and water however, then states that she has been drinking pedialyte and was able to keep down helen crackers today. She also tells me that she was seen by her PCP recently and diagnosed with hemorrhoids, following rectal examination there she had some bleeding from the hemorrhoid but denies any rectal bleeding/blood in stool currently. She reports having shortness of breath but states that this is chronic, unchanged. No known sick contacts. Recent negative COVID-19 test. She denies any chest pain, dizziness, headache, dysuria, back pain, and changes in vision. Related Data Home Medications Medication Instructions Recorded Confirmed alcohol swabs pad topical TID 10/16/20 amlodipine 5 mg tablet 5 mg PO DAILY 10/16/20 apixaban 5 mg tablet 5 mg PO BID 10/16/20 atorvastatin 10 mg tablet 10 mg PO DAILY 10/16/20 blood sugar diagnostic #10 ea 10/16/20 cholecalciferol (vitamin D3) 50 50 mcg PO BEDTIME 10/16/20 mcg (2,000 unit) capsule citalopram 20 mg tablet 20 mg PO DAILY 10/16/20 citalopram 40 mg tablet 40 mg PO DAILY 10/16/20 diclofenac sodium 1 % topical gel g topical 10/16/20 fluticasone propionate 50 0 mcg intranasal BID 10/16/20 mcg/actuation nasal spray,suspension hydrochlorothiazide 25 mg tablet 25 mg PO QAM 10/16/20 lancets 30 gauge #100 ea 10/16/20 loratadine 10 mg tablet 10 mg PO DAILY 10/16/20 losartan 100 mg tablet 100 mg PO DAILY 10/16/20 metformin 850 mg tablet 850 mg PO BID 10/16/20 metoprolol succinate 100 mg 100 mg PO DAILY 10/16/20 tablet,extended release 24 hr montelukast 10 mg tablet 10 mg PO DAILY 10/16/20 omeprazole 20 mg capsule,delayed 20 mg PO DAILY 10/16/20 release oxycodone 30 mg tablet 30 mg PO TID PRN 10/16/20 pen needle, diabetic 32 gauge x #50 ea 10/16/20 temazepam 30 mg capsule 30 mg PO BEDTIME PRN 10/16/20 triamcinolone acetonide 0.025 % appl topical 10/16/20 topical cream tizanidine 4 mg tablet 4 mg PO TID PRN 12/11/20 12/11/20 benzonatate 100 mg capsule 100 mg PO TID 08/14/21 dulaglutide 3 mg/0.5 mL mg subcut QWEEK 08/14/21 subcutaneous pen injector (Trulicity) gemfibrozil 600 mg tablet 600 mg PO BID 08/14/21 insulin glargine 100 unit/mL (3 unit subcut BEDTIME 08/14/21 mL) subcutaneous pen (Lantus Solostar U-100 Insulin) insulin lispro 100 unit/mL 30 unit subcut TID 08/14/21 subcutaneous pen metronidazole 0.75 % (37.5 mg/5 1 appful vaginal BEDTIME 08/14/21 gram) vaginal gel dulaglutide 4.5 mg/0.5 mL mg subcut 12/15/21 subcutaneous pen injector (Trulicity) empagliflozin 10 mg tablet 10 mg PO QAM 12/15/21 (Jardiance) Previous Rx's Medication Instructions Recorded nitrofurantoin macrocrystal 50 mg 50 mg PO BEDTIME 10 days #10 caps 12/31/20 capsule incontinence pad, liner, disp #90 ea 11/13/21 (Poise Pads) vibegron 75 mg tablet (Gemtesa) 75 mg PO DAILY #30 tabs 11/13/21 ondansetron 4 mg disintegrating 4 mg PO Q6H PRN nausea and 01/22/22 tablet vomiting #14 tabs Allergies Allergy/AdvReac Type Severity Reaction Status Date / Time oxybutynin Allergy Severe Difficulty Verified 12/15/21 11:40 Swallowing tolterodine Allergy Severe Difficulty Verified 12/15/21 11:40 Swallowing acetaminophen [Percocet] Allergy Unknown hives Verified 12/15/21 11:40 aspirin Allergy Unknown anaphylaxis Verified 12/15/21 11:40 citalopram Allergy Unknown Unknown Verified 12/15/21 11:40 gabapentin Allergy Unknown hives Verified 12/15/21 11:40 hydrocodone [Vicodin] Allergy Unknown hives Verified 12/15/21 11:40 naproxen [Naprosyn] Allergy Unknown anaphylaxis Verified 12/15/21 11:40 oxycodone [Percocet] Allergy Unknown hives Verified 12/15/21 11:40 sertraline Allergy Unknown Unknown Verified 12/15/21 11:40 peanut Allergy Anaphylaxis Verified 12/15/21 11:40 solifenacin AdvReac phlegm Verified 12/15/21 11:40 Vicodin Allergy Unknown hives Uncoded 11/13/21 13:12 Review of Systems Review of Systems Constitutional : No Weight loss, No Fever, No Chills, No Fatigue, No Malaise ENT/Mouth : No sore throat, No Rhinorrhea Eyes: No Eye Pain, No Swelling, No Redness Cardiovascular : No Chest Pain, + SOB, No Dyspnea on Exertion, No Orthopnea, No Edema, No Palpitations Respiratory : No Cough, No Sputum, No Wheezing Gastrointestinal : + Nausea, + Vomiting, No Diarrhea, No Constipation, + abdominal Pain, No Hematochezia, No Melena Genitourinary : No Dysuria, No Urinary Frequency, No Hematuria, Musculoskeletal : No joint pain, No Myalgias, No Joint Swelling Skin : No Skin Lesions, No rash Neuro : No Weakness, No Numbness, No Dizziness, No Headache Psych : No Anxiety/Panic, No Depression Heme/Lymph: No Bruising, No Bleeding,No Lymphadenopathy Endocrine : No Polyuria, No Polydipsia All other systems reviewed and are negative Yes all other systems are reviewed and are negative [facility] Past Medical History Attestation statement: The following information was validated with the patient. Source: old records reviewed and nursing notes reviewed Medical History Diabetes mellitus HTN (hypertension) Urinary incontinence Urinary incontinence UTI (urinary tract infection) Surgical History History of surgery Social History Social History Alcohol intake: never Patient Tobacco Use Status: Never used Tobacco Advance Directives: No Physical Exam ED Vital Signs: Vital Signs - 24 hr 01/21/22 11:11 01/21/22 19:24 01/22/22 00:00 Temperature 98 F 98.1 F 98.8 F Pulse Rate 88 86 84 Respiratory Rate 18 16 24 H Blood Pressure 156/81 H 148/69 H 120/73 Pulse Oximetry 98 98 98 Oxygen Delivery Method Room Air Room Air Room Air BMI result Body Mass Index 40.2 VSS Appearance: Alert.? Oriented X3.? No acute distress.?Patient resting comfortably in bed. Head: Normocephalic, atraumatic, no step-offs or deformities Eyes: Pupils equal, round and reactive to light.? Neck: Normal inspection.? Neck supple.? CVS: Normal heart rate and rhythm.? Pulses normal.? Respiratory: No respiratory distress.? Breath sounds normal.? Abdomen: Soft. Mild generalized abdominal tenderness. ?+BS. Skin: Skin warm and dry.? Normal skin color.? Normal skin turgor.? Extremities: No lower extremity edema.? No calf ttp. 5/5 strength to bilateral upper and right lower extremity. Right BKA. Back: No midline tenderness, no C-spine tenderness, full range of motion, no CVA tenderness bilaterally Rectal exam: with non thrombosed external non bleeding hemorrhoids, not painful to palpation. Patient with normal rectal tone. No blood per rectum noted Neuro: Oriented X 3.? No motor deficit.? No sensory deficit. CN 2-12 intact Course Reevaluation(s) Reevaluation #1: CBC shows leukocytosis, suspect reactive due to pt's persistent nausea/vomiting. Chemistry unremarkable. Urine shows 500 glucose, otherwise negative. CT abd/pelvis pending. No gap, normal glucose, unlikley DKA. Time: 19:11 Reevaluation #2: CT of the abdomen and pelvis with no acute findings. The bowel pattern is nonobstructing. There is no free fluid. Normal appendix. No other abnormalities noted on exam. Patient will be given Maalox, Dulcolax. Time: 21:23 Reevaluation #3: Patient is still complaining of diffuse abdominal pain still. Time: 22:10 Additional Reevaluation(s): 2231 Patient had normal BM in department w/o blood rectal exam with non thrombosed external non bleeding hemorrhoids. Patient with normal rectal tone. 2237 Patient feeling better after receiving Maalox and Zofran. Suspect patient's pain is due to a combination of GERD/constipation. Patient tolerating PO fluids. Will discharge home and encourage to continue Carafate and Omeprazole. Patient in agreement, discussed return precautions including worsening pain, intractable nausea/vomiting, inability to tolerate PO intake. Patient expresses understanding. I am comfortable with discharge at this time. 2300 Patient's CBC with a stable H&H, not dropping, patient not having any rectal bleeding well here in the emergency department. When I went to go discharge patient telling me she is having pain again and now she is complaining that she cannot pee, of bedside bladder scan was done which showed 235 cc in the urinary bladder, I encouraged waiting for a little bit to see if patient could urinate on her own. 0126 Patient is still unable to urinate, complaining of suprapubic pressure, denies back pain, saddle paresthesias, bowel incontinence/retention, unlikely cauda equina. Patient not complaining of UTI symptoms, urine was clean earlier, no back pain or flank pain, unlikely pyelo. At this time is straight cath will be placed. MDM - Abdominal Pain MDM Narrative Medical decision making narrative: 19:00 PM 61 y/o F presenting with generalized abdominal pain, nausea, and vomiting x 1 month since carpal tunnel surgery. Recently started on medical marijuana, recently stopped carafate & omeprazole. PE remarkable for generalized abdominal tenderness. Abdomen is soft, no signs of acute abdomen. Plan to obtain basic labs, CT abdomen/pelvis, UA. Likely GERD vs. constipation vs. reaction to cannabis. Less likely appendicitis, diverticulitis, torsion, LBO, SBO, no signs of acute abdomen suggesting perforation. Changes in bowel habits could be secondary to chronic opiate use. Medical Records Attestation: I reviewed the patient's medical records. Lab Data Attestation: I reviewed the patient's lab results. Result diagrams: 01/21/22 22:52 01/21/22 12:21 Labs: Lab Results 01/21/22 01/21/22 01/21/22 Range/Units 12:21 12:21 12:32 WBC 12.9 H (4.8-10.8) X10*3/uL RBC 4.77 (4.20-5.50) X10*6/uL Hgb 14.3 (12.0-16.0) g/dl Hct 44.4 (37.0-47.0) % MCV 93.1 (80.0-98.0) fL MCH 30.0 (27.0-33.0) pg MCHC 32.2 (31.0-35.0) g/dl RDW 13.1 (11.0-16.0) % Plt Count 244 (160-400) X10*3/uL MPV 8.7 L (9.4-12.3) fL Immature Gran % (Auto) 0.4 (0.0-0.4) % Neut % (Auto) 72.1 (45-73) % Lymph % (Auto) 20.5 (20-40) % [place] % (Auto) 5.8 (2-11) % Eos % (Auto) 0.9 (0-4) % Baso % (Auto) 0.3 (0-2) % Lymph # (Auto) 2.6 (1.2-4.9) X10*3/uL [place] # (Auto) 0.7 (0.1-1.2) X10*3/uL Eos # (Auto) 0.1 (0.0-0.4) X10*3/uL Baso # (Auto) 0.0 (0.0-0.2) X10*3/uL Abs Immat Gran (auto) 0.05 H (0.00-0.03) X10*3/uL Absolute Neuts (auto) 9.3 H (2.0-8.3) x10*3/uL Absolute Nucleated RBC 0.000 (0.0-0.012) X10*3/uL Nucleated RBC % (auto) 0.0 (0.0-0.2) /100WBC Sodium 139 (135-145) mmol/L Potassium 4.1 (3.3-5.1) mmol/L Chloride 98 (96-108) mmol/L Carbon Dioxide 32 H (22-29) mmol/L Anion Gap 13 (12-20) BUN 16 (9-16) mg/dL Creatinine 0.97 (0.5-1.4) mg/dL Estim Creat Clear Calc 68.9 Estimated GFR 59 POC Glucose (60-115) mg/dL Random Glucose 125 H (60-115) mg/dL Calcium 9.6 (8.4-10.2) mg/dL Urine Color Yellow Urine Appearance Clear Urine pH 8.0 (5.0-9.0) Ur Specific [place] 1.020 (1.005-1.025) Urine Protein Negative (Neg-Trace) mg/dL Urine Glucose (UA) 500 H (Negative) mg/dL Urine Ketones Negative (Negative) mg/dL Urine Blood Negative (Negative) Urine Nitrite Negative (Negative) Ur Leukocyte Esterase Trace H (Negative) Urine RBC 0-2 (0-2) /HPF Urine WBC 0-5 (0-5) /HPF Ur Squamous Epith Cells 3-5 (0-2) /HPF Urine Bacteria None Seen (None Seen) Hyaline Casts 0-2 (0-2) /LPF 01/21/22 01/21/22 01/21/22 Range/Units 15:16 18:34 22:52 WBC 12.4 H (4.8-10.8) X10*3/uL RBC 4.54 (4.20-5.50) X10*6/uL Hgb 13.9 (12.0-16.0) g/dl Hct 41.6 (37.0-47.0) % MCV 91.6 (80.0-98.0) fL MCH 30.6 (27.0-33.0) pg MCHC 33.4 (31.0-35.0) g/dl RDW 13.1 (11.0-16.0) % Plt Count 259 (160-400) X10*3/uL MPV 8.9 L (9.4-12.3) fL Immature Gran % (Auto) 0.3 (0.0-0.4) % Neut % (Auto) 64.0 (45-73) % Lymph % (Auto) 27.9 (20-40) % [place] % (Auto) 6.4 (2-11) % Eos % (Auto) 1.1 (0-4) % Baso % (Auto) 0.3 (0-2) % Lymph # (Auto) 3.5 (1.2-4.9) X10*3/uL [place] # (Auto) 0.8 (0.1-1.2) X10*3/uL Eos # (Auto) 0.1 (0.0-0.4) X10*3/uL Baso # (Auto) 0.0 (0.0-0.2) X10*3/uL Abs Immat Gran (auto) 0.04 H (0.00-0.03) X10*3/uL Absolute Neuts (auto) 8.0 (2.0-8.3) x10*3/uL Absolute Nucleated RBC 0.000 (0.0-0.012) X10*3/uL Nucleated RBC % (auto) 0.0 (0.0-0.2) /100WBC Sodium (135-145) mmol/L Potassium (3.3-5.1) mmol/L Chloride (96-108) mmol/L Carbon Dioxide (22-29) mmol/L Anion Gap (12-20) BUN (9-16) mg/dL Creatinine (0.5-1.4) mg/dL Estim Creat Clear Calc Estimated GFR POC Glucose 115 133 H (60-115) mg/dL Random Glucose (60-115) mg/dL Calcium (8.4-10.2) mg/dL Urine Color Urine Appearance Urine pH (5.0-9.0) Ur Specific [place] (1.005-1.025) Urine Protein (Neg-Trace) mg/dL Urine Glucose (UA) (Negative) mg/dL Urine Ketones (Negative) mg/dL Urine Blood (Negative) Urine Nitrite (Negative) Ur Leukocyte Esterase (Negative) Urine RBC (0-2) /HPF Urine WBC (0-5) /HPF Ur Squamous Epith Cells (0-2) /HPF Urine Bacteria (None Seen) Hyaline Casts (0-2) /LPF Critical Care Time Critical Care Time Critical Care Time: No Discharge Plan Discharge Clinical Impression: Abdominal pain, Nausea & vomiting, Belching Patient Disposition: Home, Self-Care Instructions: Acute Nausea and Vomiting (ED), Abdominal Pain (ED) Additional Instructions: Take your medications as prescribed. If you were prescribed antibiotics today, it is important that you take your medication to their entirety, do not skip any doses, do not finish them early. Follow-up with your primary care provider this week. Follow-up with GI, information below. Return to the emergency department with new or worsening symptoms. Such as fevers, chills, chest pain, shortness of breath, nausea, vomiting, dizziness, headache, vision changes, lethargy In case of emergency call 911 Please continue taking your omeprazole and Carafate as prescribed Prescriptions: New ondansetron 4 mg tablet,disintegrating 4 mg PO Q6H PRN (Reason: nausea and vomiting) Qty: 14 0RF No Action nitrofurantoin macrocrystal 50 mg capsule 50 mg PO BEDTIME 10 Days Qty: 10 1RF Rx Instructions: must administer with a meal/food (DME) lancets 30 gauge misc See Rx Instructions .ROUTE TID Qty: 100 Rx Instructions: As directed (DME) pen needle, diabetic 32 gauge x 5/32 needle See Rx Instructions .ROUTE .MEDSUPPLY Qty: 50 Rx Instructions: As directed cholecalciferol (vitamin D3) 50 mcg (2,000 unit) capsule 50 mcg PO BEDTIME diclofenac sodium 1 % gel topical loratadine 10 mg tablet 10 mg PO DAILY fluticasone propionate 50 mcg/actuation spray,suspension 0 mcg intranasal BID losartan 100 mg tablet 100 mg PO DAILY hydrochlorothiazide 25 mg tablet 25 mg PO QAM alcohol swabs Pads, Medicated topical TID montelukast 10 mg tablet 10 mg PO DAILY omeprazole 20 mg capsule,delayed release(DR/EC) 20 mg PO DAILY temazepam 30 mg capsule 30 mg PO BEDTIME PRN citalopram 20 mg tablet 20 mg PO DAILY amlodipine 5 mg tablet 5 mg PO DAILY (DME) FreeStyle Lite Strips Strip See Rx Instructions Not Applicable TID Qty: 10 Rx Instructions: As directed metformin 850 mg tablet 850 mg PO BID metoprolol succinate 100 mg tablet extended release 24 hr 100 mg PO DAILY atorvastatin 10 mg tablet 10 mg PO DAILY citalopram 40 mg tablet 40 mg PO DAILY Eliquis 5 mg tablet 5 mg PO BID oxycodone 30 mg tablet 30 mg PO TID PRN triamcinolone acetonide 0.025 % cream topical tizanidine 4 mg tablet 4 mg PO TID PRN benzonatate 100 mg capsule 100 mg PO TID metronidazole 0.75 % gel 1 appful vaginal BEDTIME Trulicity 3 mg/0.5 mL pen injector subcut QWEEK Lantus Solostar U-100 Insulin 100 unit/mL (3 mL) insulin pen subcut BEDTIME insulin lispro 100 unit/mL insulin pen 30 unit subcut TID gemfibrozil 600 mg tablet 600 mg PO BID Trulicity 4.5 mg/0.5 mL pen injector subcut Jardiance 10 mg tablet 10 mg PO QAM (DME) Poise Pads Pad See Rx Instructions .ROUTE .MEDSUPPLY Qty: 90 0RF Rx Instructions: As directed Gemtesa 75 mg tablet 75 mg PO DAILY Qty: 30 3RF Referrals: Bang Hilario MD [Primary Care Provider] - 2 days Ila Shannon MD [Physician] - 3 days Stand Alone Forms: Work/School Release
[2022-01-21 18:37] LABS: Glucose, Whole Blood 133 mg/dL (60-115)
[2022-01-21 19:24] VITALS: BP 148/69; PULSE 86; RESP 16; TEMP 36.7; O2SAT 98
[2022-01-21] MEDS: 0.9 % Sodium Chloride 1,000 ML 999 ML IV (20:35)
[2022-01-21] MEDS: ondansetron HCL 4 MG/2 ML VIAL IVPUSH (20:35)
[2022-01-21] MEDS: Morphine Sulfate Immed Release 15 MG TABLET PO (21:52)
[2022-01-21] MEDS: Magnesium Hydrox/Alum Hydrox 30 ML ORAL.SUSP PO (21:52)
[2022-01-21] MEDS: bisacodyL 5 MG TABLET.DR 10 MG PO (21:52)
[2022-01-21 22:59] LABS: MANUAL DIFF FLAG NO
[2022-01-21 23:01] LABS: Basophils Percent Auto 0.3 % (0-2); Eosinophils Absolute Auto 0.1 X10*3/uL (0.0-0.4); Eosinophils Percent Auto 1.1 % (0-4); Hematocrit 41.6 % (37.0-47.0); Hemoglobin 13.9 g/dl (12.0-16.0); Imm Gran Abs Auto 0.04 X10*3/uL (0.00-0.03); Imm Gran Pct Auto 0.3 % (0.0-0.4); Lymphocytes Absolute Auto 3.5 X10*3/uL (1.2-4.9); Lymphocytes Percent Auto 27.9 % (20-40); Mean Corpuscular HGB Conc 33.4 g/dl (31.0-35.0); Mean Corpuscular Hemoglobin 30.6 pg (27.0-33.0); Mean Corpuscular Volume 91.6 fL (80.0-98.0); Mean Platelet Volume 8.9 fL (9.4-12.3); Monocytes Absolute Auto 0.8 X10*3/uL (0.1-1.2); Monocytes Percent Auto 6.4 % (2-11); Platelet Count 259 X10*3/uL (160-400); Red Blood Count 4.54 X10*6/uL (4.20-5.50); Red Cell Distribution Width 13.1 % (11.0-16.0); White Blood Count 12.4 X10*3/uL (4.8-10.8)
[2022-01-22] VITALS: BP 120/73; PULSE 84; RESP 24; TEMP 37.1; O2SAT 98
[2022-01-22 02:00] VITALS: BP 146/87; PULSE 90; RESP 16; TEMP 37.1; O2SAT 97
[2022-01-22] MEDS: Morphine Sulfate Immed Release 15 MG TABLET PO (02:05)
[2022-01-22] MEDS: Simethicone 80 MG TAB.CHEW PO (02:05)
[2022-01-22 02:19] LABS: Appearance Urine Clear; Color Urine Yellow; Glucose Urine UA >=1000 mg/dL (Negative); Leukocyte Esterase Urine Trace (Negative); Nitrite Urine Negative (Negative); PH 7.5 (5.0-9.0); UMIC TRIGGER UACC YES; Urine Blood Negative (Negative); Urine Ketones Negative (Negative); Urine Protein Negative (Neg-Trace)
[2022-01-22 02:34] LABS: Bacteria Urine Trace (None Seen); Hyaline Casts Urine 0-2 /LPF (0-2); RBC Urine 0-2 /HPF (0-2); WBC Urine 0-5 /HPF (0-5)
[2022-01-22 02:42] LABS: Alanine Aminotransferase 30 U/L (0-31); Albumin Level 3.8 g/dL (3.5-5.0); Alkaline Phosphatase 102 U/L (39-117); Aspartate Amino Transferase 17 U/L (5-31); Bilirubin Direct 0.4 mg/dL (0.0-0.5); Bilirubin Total 1.1 mg/dL (0.0-1.0); Lipase 103 U/L (8-78); Total Protein 6.3 g/dL (6.5-8.0)
== END 2022-01-22 03:34 | disposition home or self-care (01) ==
PROVIDERS: Physician Assistant; Emergency Provider Emergency Medicine; PCP Hospitalist
DX: R10.13 Epigastric pain (principal); R11.2 Nausea with vomiting, unspecified; R32 Unspecified urinary incontinence; F12.90 Cannabis use, unspecified, uncomplicated; Z79.899 Other long term (current) drug therapy
CPT/HCPCS: 36415; 74176; 80048; 80076; 81001; 82947; 83690; 85025; 96361; 96374; 99284; 99285; J2405

== ENCOUNTER 2022-06-06 10:58 | Emergency (ER) | payer OTHER, SELFPAY ==
--- NOTE | ~2022-06-06 | CT_ITS ---
EXAMINATION: CT CHEST ANGIOGRAM PE PROTOCOL CLINICAL INFORMATION: , Reason for Exam CP/SOB/ABD PAIN/N/V COMPARISON: None TECHNIQUE: Volumetric imaging was performed through the chest. Reformatted coronal and sagittal imaging was performed. 3-D MIP images performed at a dedicated separate workstation. This CT examination was performed using dose optimization techniques as appropriate, variously including the following: *Automated exposure control *Adjustment of mA and/or kV according to patient size (this includes techniques or standardized protocols for targeted exams where dose is matched to indication/reason for exam; i.e. extremities or head) *Use of iterative reconstruction technique CONTRAST: 85 mL Omnipaque 350 injected DLP: 357 FINDINGS: PULMONARY ARTERIES: There are no large central emboli, there are however nonocclusive filling defects in secondary and tertiary branches of the pulmonary artery to the right upper and right lower lobes, which could be artifact, cannot entirely rule out the possibility of small nonocclusive emboli. No CT evidence of cardiac strain. No pulmonary infarct. LINES/TUBES: None LUNGS: Lung Parenchyma: There is mild vascular congestion, patchy interstitial opacification over the right upper lobe, lingula, both right and left lower lobe, could be areas of superimposed patchy interstitial pneumonitis versus areas of edema's. Lung Nodules:There are no significant lung nodules. AIRWAYS: Trachea and bronchi are normal. PLEURA: No pleural effusion or pneumothorax. MEDIASTINUM AND ROBERTO: The visualized thyroid gland is unremarkable. No mediastinal, hilar or axillary lymphadenopathy. There is no mediastinal mass. VESSELS: Thoracic aorta is normal in size. HEART AND PERICARDIUM: Heart is normal in size. There is no pericardial effusion. There are coronary calcifications. CHEST WALL, LOWER NECK, SURROUNDING SOFT TISSUES: Normal VISUALIZED ABDOMEN: Unremarkable BONES: The visualized bony thorax is within normal limits. CT/CT angio chest PE protocol IMPRESSION: * There are no large central emboli, there are however nonocclusive filling defects in secondary and tertiary branches of the pulmonary arteries to the right upper and right lower lobes, which could be artifact, cannot entirely rule out the possibility of small nonocclusive emboli. No CT evidence of cardiac strain. No pulmonary infarct. * Mild vascular congestion, patchy interstitial opacification over the right upper lobe, lingula, both right and left lower lobe, could be superimposed patchy interstitial pneumonitis versus edema. * Mild Coronary calcifications. (Referring physician staff is being called, to be alerted of the above findings and recommendations.) AJ
--- NOTE | ~2022-06-06 | CT_ITS ---
EXAMINATION: CT abdomen pelvis w IV con CLINICAL INFORMATION: Reason for Exam CP/SOB/ABD PAIN/N/V COMPARISON: No prior CT available for comparison. TECHNIQUE: Multidetector volumetric imaging was performed from the superior aspect of the liver through the pubic symphysis 85 mL Omnipaque 350 injected Sagittal and coronal reformatted images were obtained on the technologist's workstation. This CT examination was performed using dose optimization techniques as appropriate, variously including the following: *Automated exposure control *Adjustment of mA and/or kV according to patient size (this includes techniques or standardized protocols for targeted exams where dose is matched to indication/reason for exam; i.e. extremities or head) *Use of iterative reconstruction technique DLP: 1278 mGy-cm FINDINGS: LOWER THORAX: Included lung bases are clear. HEPATOBILIARY: No focal hepatic lesions. No biliary ductal dilatation. GALLBLADDER: Gallbladder unremarkable. SPLEEN: Spleen is normal in size. PANCREAS: No focal mass or ductal dilatation. STOMACH AND GASTROINTESTINAL TRACT: Stomach is grossly unremarkable. There is no bowel distention or thickening. No CT evidence of appendicitis. ADRENALS: No adrenal nodules. KIDNEYS/URETERS: No hydronephrosis, stones or solid mass lesions. URINARY BLADDER: Partially decompressed. PELVIC VISCERA: Metallic object in the pelvis likely tubal ligation otherwise Unremarkable PERITONEUM: No free air or fluid. LYMPH NODES: No lymphadenopathy. VASCULAR: Mild aortic vascular calcification. Abdominal aorta normal in size, no aneurysm found. BONES, ABDOMINAL WALL AND SOFT TISSUES: Age-appropriate changes of the spine and skeletal system, no destructive osteolytic or osteosclerotic bone lesion found CT/CT abdomen pelvis w IV con IMPRESSION: No CT evidence of acute intra-abdominal process to explain patient's pain symptoms. Normal appendix. No kidney stone or hydronephrosis. Bilateral tubal ligation devices.
[2022-06-06 11:01] VITALS: BP 195/107; PULSE 97; RESP 18; TEMP 36.8; O2SAT 100; BMI 34.7
--- NOTE | 2022-06-06 11:10 | PC.NURSE ---
Patient has prostethic LLE history of blood clots provider aware.
--- NOTE | 2022-06-06 11:22 | ECG_ITS ---
Test Reason : nausea /abd pain Blood Pressure : / mmHG Vent. Rate : 112 BPM Atrial Rate : 112 BPM P-R Int : 146 ms QRS Dur : 094 ms QT Int : 484 ms P-R-T Axes : 041 038 027 degrees QTc Int : 660 ms Sinus tachycardia Nonspecific ST abnormality Prolonged QT Abnormal ECG No previous ECGs available Referred By: Joyce Noble Electronically Signed By:Boogie Isaacs
[2022-06-06 11:31] VITALS: BP 183/99; PULSE 92; RESP 20; O2SAT 98
[2022-06-06] MEDS: guaiFEN/Codeine SF 200/20/10ML 10 ML LIQUID PO (11:32)
[2022-06-06 11:46] LABS: MANUAL DIFF FLAG NO
[2022-06-06 11:48] LABS: Basophils Percent Auto 0.4 % (0-2); Eosinophils Absolute Auto 0.1 X10*3/uL (0.0-0.4); Eosinophils Percent Auto 1.8 % (0-4); Hematocrit 44.2 % (37.0-47.0); Imm Gran Abs Auto 0.02 X10*3/uL (0.00-0.03); Imm Gran Pct Auto 0.3 % (0.0-0.4); Lymphocytes Absolute Auto 1.6 X10*3/uL (1.2-4.9); Lymphocytes Percent Auto 21.7 % (20-40); Mean Corpuscular HGB Conc 33.9 g/dl (31.0-35.0); Mean Corpuscular Hemoglobin 30.2 pg (27.0-33.0); Mean Corpuscular Volume 89.1 fL (80.0-98.0); Mean Platelet Volume 8.9 fL (9.4-12.3); Monocytes Absolute Auto 0.4 X10*3/uL (0.1-1.2); Monocytes Percent Auto 5.3 % (2-11); Neutrophils Absolute Auto 5.2 x10*3/uL (2.0-8.3); Neutrophils Percent Auto 70.5 % (45-73); Platelet Count 288 X10*3/uL (160-400); Red Blood Count 4.96 X10*6/uL (4.20-5.50); Red Cell Distribution Width 13.1 % (11.0-16.0); White Blood Count 7.4 X10*3/uL (4.8-10.8)
[2022-06-06 11:52] LABS: INTERNATIONAL NORM RATIO 1.1 (0.9-1.1); Prothrombin Time 13.2 SEC (10.0-13.1)
[2022-06-06 12:01] LABS: Alanine Aminotransferase 14 U/L (0-31); Albumin Level 4.2 g/dL (3.5-5.0); Alkaline Phosphatase 99 U/L (39-117); Anion Gap 19 (12-20); Aspartate Amino Transferase 16 U/L (5-31); Bilirubin Total 0.9 mg/dL (0.0-1.0); Blood Urea Nitrogen 16 mg/dL (9-16); Calcium 9.7 mg/dL (8.4-10.2); Carbon Dioxide 24 mmol/L (22-29); Chloride 100 mmol/L (96-108); Creatinine Clr Calc Pharmacy 50.2; Estimated Glomerular Filt Rate 45; Glucose Random 193 mg/dL (60-115); Lipase 35 U/L (8-78); Magnesium 2.1 mg/dL (1.6-2.6); Potassium 3.3 mmol/L (3.3-5.1); Sodium 140 mmol/L (135-145); Total Protein 7.3 g/dL (6.5-8.0)
[2022-06-06 12:08] VITALS: PULSE 91; RESP 18; O2SAT 97
[2022-06-06 12:08] LABS: Troponin-I High Sensitivity < 3.5 ng/L (<3.5-17.0)
[2022-06-06] MEDS: Albuterol Sulfate (0.083%) 2.5 MG/3 ML VIAL.NEB 5 MG INHALE (12:08)
[2022-06-06 12:34] LABS: Influenza A PCR NEGATIVE (Negative); Influenza B PCR NEGATIVE (Negative); Resp Syncy Virus RNA Qual PCR NEGATIVE (Negative); SARS COV2 PCR INHOUSE POSITIVE (Negative)
[2022-06-06] MEDS: ondansetron HCL 4 MG/2 ML VIAL IVPUSH (12:49)
[2022-06-06] MEDS: LORazepam 2 MG/ML VIAL 1 MG IVPUSH (12:49)
[2022-06-06] MEDS: 0.9 % Sodium Chloride 1,000 ML 999 ML IVCONT (12:50)
--- NOTE | 2022-06-06 12:57 | ED_ITS ---
HPI - General Adult General Chief complaint: Abdominal Pain Stated complaint: Vomiting Time Seen by Provider: 06/06/22 11:08 Source: patient Mode of arrival: ambulatory Limitations: no limitations History of Present Illness HPI narrative: 61 y/o female history of left-sided BKA, HTN, diabetes, urinary incontinence, History of a PE currently on Eliquis who reports she was recently tested positive for flu 1 week ago who is presenting to the ER with complaints of worsening symptoms which include generalized fatigue /malaise, headaches, nasal congestion/ rhinorrhea, chest pain, shortness of breath, sputum production with clear/ yellow thick sputum, wheezing, nausea/vomiting, abdominal pain for the past 2-3 days worse today. Reports that she has been unable to take any of her medications today. she denies any measured fevers, dizziness, neck pain / stiffness, dyspnea on exertion, orthopnea, palpitations, paresthesias, diarrhea constipation, black or bloody stools, right lower extremity edema, calf tenderness to the right lower extremity, recent falls or trauma, recent travel or sick contacts that she is aware of, rashes, dysuria or hematuria, black or bloody stools, black or bloody emesis or any other symptoms complaints or concerns at this time. MD complaint: cough c sob c N/V and abd pain Onset (ago): day(s) (2-3 worse today) Related Data Home Medications Medication Instructions Recorded Confirmed alcohol swabs pad topical TID 10/16/20 amlodipine 5 mg tablet 5 mg PO DAILY 10/16/20 apixaban 5 mg tablet 5 mg PO BID 10/16/20 atorvastatin 10 mg tablet 10 mg PO DAILY 10/16/20 blood sugar diagnostic #10 ea 10/16/20 cholecalciferol (vitamin D3) 50 50 mcg PO BEDTIME 10/16/20 mcg (2,000 unit) capsule citalopram 20 mg tablet 20 mg PO DAILY 10/16/20 citalopram 40 mg tablet 40 mg PO DAILY 10/16/20 diclofenac sodium 1 % topical gel g topical 10/16/20 fluticasone propionate 50 0 mcg intranasal BID 10/16/20 mcg/actuation nasal spray,suspension hydrochlorothiazide 25 mg tablet 25 mg PO QAM 10/16/20 lancets 30 gauge #100 ea 10/16/20 loratadine 10 mg tablet 10 mg PO DAILY 10/16/20 losartan 100 mg tablet 100 mg PO DAILY 10/16/20 metformin 850 mg tablet 850 mg PO BID 10/16/20 metoprolol succinate 100 mg 100 mg PO DAILY 10/16/20 tablet,extended release 24 hr montelukast 10 mg tablet 10 mg PO DAILY 10/16/20 omeprazole 20 mg capsule,delayed 20 mg PO DAILY 10/16/20 release oxycodone 30 mg tablet 30 mg PO TID PRN 10/16/20 pen needle, diabetic 32 gauge x #50 ea 10/16/20 temazepam 30 mg capsule 30 mg PO BEDTIME PRN 10/16/20 triamcinolone acetonide 0.025 % appl topical 10/16/20 topical cream tizanidine 4 mg tablet 4 mg PO TID PRN 12/11/20 12/11/20 benzonatate 100 mg capsule 100 mg PO TID 08/14/21 dulaglutide 3 mg/0.5 mL mg subcut QWEEK 08/14/21 subcutaneous pen injector (Trulicity) gemfibrozil 600 mg tablet 600 mg PO BID 08/14/21 insulin glargine 100 unit/mL (3 unit subcut BEDTIME 08/14/21 mL) subcutaneous pen (Lantus Solostar U-100 Insulin) insulin lispro 100 unit/mL 30 unit subcut TID 08/14/21 subcutaneous pen metronidazole 0.75 % (37.5 mg/5 1 appful vaginal BEDTIME 08/14/21 gram) vaginal gel dulaglutide 4.5 mg/0.5 mL mg subcut 12/15/21 subcutaneous pen injector (Trulicity) empagliflozin 10 mg tablet 10 mg PO QAM 12/15/21 (Jardiance) Previous Rx's Medication Instructions Recorded nitrofurantoin macrocrystal 50 mg 50 mg PO BEDTIME 10 days #10 caps 12/31/20 capsule incontinence pad, liner, disp #90 ea 11/13/21 (Poise Pads) ondansetron 4 mg disintegrating 4 mg PO Q6H PRN nausea and 01/22/22 tablet vomiting #14 tabs vibegron 75 mg tablet (Gemtesa) 75 mg PO DAILY 90 days #90 tabs 04/27/22 albuterol sulfate 90 mcg/actuation 1 inh inhalation QID PRN shortness 06/06/22 aerosol inhaler of breath or wheezing #8.5 grams azithromycin 250 mg tablet See Rx Instructions PO .COMPLEX #6 06/06/22 tabs cefuroxime axetil 250 mg tablet 250 mg PO BID 7 days #14 tabs 06/06/22 codeine 10 mg-guaifenesin 100 mg/5 5 ml PO Q6H PRN cold symptoms #120 06/06/22 mL oral liquid (Guaifenesin AC) mL prednisone 20 mg tablet 40 mg PO DAILY inflammation 5 days 06/06/22 #10 tabs Allergies Allergy/AdvReac Type Severity Reaction Status Date / Time oxybutynin Allergy Severe Difficulty Verified 12/15/21 11:40 Swallowing tolterodine Allergy Severe Difficulty Verified 12/15/21 11:40 Swallowing acetaminophen [Percocet] Allergy Unknown hives Verified 12/15/21 11:40 aspirin Allergy Unknown anaphylaxis Verified 12/15/21 11:40 citalopram Allergy Unknown Unknown Verified 12/15/21 11:40 gabapentin Allergy Unknown hives Verified 12/15/21 11:40 hydrocodone [Vicodin] Allergy Unknown hives Verified 12/15/21 11:40 naproxen [Naprosyn] Allergy Unknown anaphylaxis Verified 12/15/21 11:40 oxycodone [Percocet] Allergy Unknown hives Verified 12/15/21 11:40 sertraline Allergy Unknown Unknown Verified 12/15/21 11:40 peanut Allergy Anaphylaxis Verified 12/15/21 11:40 solifenacin AdvReac phlegm Verified 12/15/21 11:40 Vicodin Allergy Unknown hives Uncoded 11/13/21 13:12 Review of Systems Review of Systems: Constitutional : +Chills/fatigue/malaise, No Weight loss, No Fever, No Night Sweats ENT/Mouth : No Hearing loss, No Ear Pain, No Nasal Congestion, No Sinus Pain, No Hoarseness, No sore throat, No Rhinorrhea, No Swallowing Difficulty Eyes: No Eye Pain, No Swelling, No Redness, No Foreign Body, No Discharge, No Vision Changes Cardiovascular : + Chest Pain, + SOB, No Dyspnea on Exertion, No Orthopnea, No Edema, No Palpitations Respiratory : + Cough, + Sputum, + Wheezing, No Smoke Exposure, No Dyspnea Gastrointestinal : + Nausea, + Vomiting, No Diarrhea, No Constipation, + abdominal Pain, No Hematochezia, No Melena Genitourinary : no irregular bleeding, No Dysuria, No Urinary Frequency, No Hematuria, No Urinary Incontinence, No Urgency, No Flank Pain, No Urinary Flow Changes, No Hesitancy Musculoskeletal : No joint pain, + Myalgias, No Joint Swelling Skin : No Skin Lesions, No rash Neuro : No Weakness, No Numbness, No Paresthesias, No Loss of Consciousness, No Dizziness, No Headache Psych : No Anxiety/Panic, No Depression, No SI/HI/AH/VH, No Social Issues, Heme/Lymph: No Bruising, No Bleeding,No Lymphadenopathy Endocrine : No Polyuria, No Polydipsia, No Temperature Intolerance Yes all other systems are reviewed and are negative [facility] Past Medical History Attestation statement: The following information was validated with the patient. Source: old records reviewed and nursing notes reviewed Medical History Diabetes mellitus HTN (hypertension) Urinary incontinence Urinary incontinence UTI (urinary tract infection) Surgical History History of surgery Social History Social History Alcohol intake: never Patient Tobacco Use Status: Never used Tobacco Smoked in Last 30 Days: No Use of substances other than those prescribed or required for medical reasons: No Advance Directives: No Advance Directives Information Provided: No Physical Exam ED Vital Signs: Vital Signs - 24 hr 06/06/22 11:01 06/06/22 11:31 06/06/22 12:08 Temperature 98.3 F Pulse Rate 97 92 91 Respiratory Rate 18 20 18 Blood Pressure 195/107 H 183/99 H Pulse Oximetry 100 98 Oxygen Delivery Method Room Air Room Air BMI result Body Mass Index 34.7 vital signs have been reviewed as normal and appeared to be correct. Blood pressure 195/107. Heart rate normal. Respiration rate normal. Temperature normal. Oxygen saturation normal. Appearance: Alert. Oriented X3. No acute distress. Head: Normal external exam. Normocephalic. Atraumatic. Eyes: PERRLA. EOMI. Conjunctiva and sclera normal. Eyelids normal. ENT: EAC normal. TM's Normal. Pharynx normal. Uvula midline. Moist mucous membranes. No lesions/ulcerations or masses noted on the tongue. Normal voice. No trismus noted. No drooling noted. No muffled voice noted. Neck: Normal inspection. Neck supple. FROM. No adenopathy. Thyroid Normal. No tracheal deviation noted. No crepitus is noted. No meningeal signs. No neck mass noted. No signs of trauma noted. CVS: Normal heart rate and rhythm. Heart sound normal. Pulses normal throughout. No murmurs/rales/gallops. Respiratory: No respiratory distress. Painless inspiration. Breath sounds normal. No wheezes/rales/rhonchi noted. Chest nontender. No crepitus is noted. No signs of trauma noted. No accessory muscle usage noted or decreased air movement noted. No signs of trauma. Abdomen: Soft and mild tenderness to the upper quadrants. Nondistended. No guarding. No rigidity. Bowel sounds normal in all 4 quadrants. No distention noted.? No organomegaly noted.? No visible injury noted.? No rebound tenderness.? Negative Rovsing sign.? Negative obturator's sign.? Negative psoas sign.? Negative Albright sign. Back: No CVA tenderness. Full range of motion noted. Nontender. No signs of trauma. Patient neuro intact bilaterally and distally on all 4 extremities. Patient's reflexes intact bilaterally and distally on all 4 extremities. No rashes/lesion/induration/fluctuance or signs of infection noted. Skin: Skin warm and dry. Normal skin color. Normal skin turgor. No rashes/lesions/lacerations noted. Extremities: Patient noted to have a left BKA. No right lower extremity or calf tenderness is noted. Otherwise all other extremities exhibit normal range of motion nontender. Neuro: Oriented X 3. No motor deficit. No sensory deficit. Reflexes normal. Normal steady gait. No focal neuro deficits noted. CN's II-XII intact bilaterally? Vascular: + radial pulses/+ 2 distal pedal pulses/+2 dorsalis pedis b/l. Normal cap refill. No cyanosis noted to upper extremity nails and lower extremity toes nails. Course Course Course Narrative: 11:20am 61 y/o female history of left-sided BKA, HTN, diabetes, urinary incontinence, History of a PE currently on Eliquis who reports she was recently tested positive for flu 1 week ago who is presenting to the ER with complaints of worsening symptoms which include generalized fatigue /malaise, headaches, nasal congestion/ rhinorrhea, chest pain, shortness of breath, sputum production with clear/ yellow thick sputum, wheezing, nausea/vomiting, abdominal pain for the past 2-3 days worse today. Reports that she has been unable to take any of her medications today. On exam patient is alert and oriented although very anxious. Mildly hypertensive at 195/107. Otherwise all other vitals are within normal limits. She is not hypoxic. She is afebrile. Neck is soft nontender supple full range of motion no meningeal signs. CV RRR. Lungs CTA. No wheezes/rhonchi/ rales on my exam. Abdomen is soft and nontender. No lower extremity edema To right lower extremity is noted. patient has left BKA. Plan: Will obtain labs, EKG, CTA of chest for PE, CT scan of abdomen pelvis IV contrast, COVID/RSV/ flu swab. Provide a breathing treatment with 4 mg of Zofran And some p.o. Robitussin with codeine and re-evaluate. Reevaluation(s) Reevaluation #1: Labs reviewed -193 Glucose - patient negative for influenza and RSV. - Patient positive for COVID. Otherwise all other labs are within normal limits. Plan: Therefore patient will need a repeat troponin. Awaiting imaging. Will give the patient her prescribed amlodipine and her chin hydrochlorothiazide along with some Ativan for the patient's anxiety and re-evaluate. Time: 13:53 Reevaluation #2: - repeat troponin 3.9 which is negative delta. CTA of chest have the pulmonary embolism for PE revealed that the patient still has her PEs that she is aware of that she is currently on Eliquis for. No cardiac strain or pulmonary infarct is noted. No large central emboli noted. There reporting mild vascular congestion with patchy interstitial ossification over the right upper lobe, lingula and both right and lower lobe could represent pneumonitis versus edema. Mild coronary calcifications. Otherwise no other acute Processes noted. Therefore at this time patient reports she feels much better and is agreeable to being discharged will DC home with antibiotics, steroids and cough medicine w ith instructions to self isolate per CDC guidelines and to return if any new or worsening symptoms. Patient understands agrees with this plan. Time: 15:18 Medications Administered Discontinued Medications Generic Name Dose Route Start Last Admin Trade Name Freq PRN Reason Stop Dose Admin Albuterol Sulfate 5 mg 06/06/22 11:24 06/06/22 12:08 Albuterol Sulfate (0.083%) 2.5 Mg/3 Ml Vial.Neb INHALE 06/06/22 11:25 5 mg ONCE ONE Administration Amlodipine Besylate 5 mg 06/06/22 13:50 06/06/22 14:13 Amlodipine Besylate 5 Mg Tablet PO 06/06/22 13:51 5 mg ONCE ONE Administration Protocol Guaifenesin/Codeine Phosphate 10 ml 06/06/22 11:24 06/06/22 11:32 Guaifen/Codeine Sf 200/20/10ml 10 Ml Liquid PO 06/06/22 11:25 10 ml ONCE ONE Administration Hydrochlorothiazide 25 mg 06/06/22 13:50 06/06/22 14:13 Hydrochlorothiazide 25 Mg Tablet PO 06/06/22 13:51 25 mg ONCE ONE Administration Protocol Sodium Chloride 1,000 mls @ 999 mls/hr 06/06/22 12:30 06/06/22 12:50 Ns IVCONT 06/06/22 13:30 999 mls/hr .Q1H1M LATASHA Administration Iohexol 100 ml 06/06/22 14:15 06/06/22 14:18 Iohexol 350 Mg/Ml 100 Ml Infus..Btl IV 06/06/22 14:16 85 ml ONCE ONE Administration Lorazepam 1 mg 06/06/22 12:44 06/06/22 12:49 Lorazepam 2 Mg/Ml Vial IVPUSH 06/06/22 12:45 1 mg ONCE ONE Administration Ondansetron HCl 4 mg 06/06/22 12:24 06/06/22 12:49 Ondansetron Hcl 4 Mg/2 Ml Vial IVPUSH 06/06/22 12:25 4 mg ONCE ONE Administration Medical Decision Making Lab Data MDM Lab Attestation statement: I reviewed the patient's lab results. 06/06/22 11:39 06/06/22 11:39 Labs: Lab Results 06/06/22 06/06/22 06/06/22 Range/Units 11:35 11:39 11:39 WBC 7.4 (4.8-10.8) X10*3/uL RBC 4.96 (4.20-5.50) X10*6/uL Hgb 15.0 (12.0-16.0) g/dl Hct 44.2 (37.0-47.0) % MCV 89.1 (80.0-98.0) fL MCH 30.2 (27.0-33.0) pg MCHC 33.9 (31.0-35.0) g/dl RDW 13.1 (11.0-16.0) % Plt Count 288 (160-400) X10*3/uL MPV 8.9 L (9.4-12.3) fL Immature Gran % (Auto) 0.3 (0.0-0.4) % Neut % (Auto) 70.5 (45-73) % Lymph % (Auto) 21.7 (20-40) % Bryan % (Auto) 5.3 (2-11) % Eos % (Auto) 1.8 (0-4) % Baso % (Auto) 0.4 (0-2) % Lymph # (Auto) 1.6 (1.2-4.9) X10*3/uL Bryan # (Auto) 0.4 (0.1-1.2) X10*3/uL Eos # (Auto) 0.1 (0.0-0.4) X10*3/uL Baso # (Auto) 0.0 (0.0-0.2) X10*3/uL Abs Immat Gran (auto) 0.02 (0.00-0.03) X10*3/uL Absolute Neuts (auto) 5.2 (2.0-8.3) x10*3/uL Absolute Nucleated RBC 0.000 (0.0-0.012) X10*3/uL Nucleated RBC % (auto) 0.0 (0.0-0.2) /100WBC PT (10.0-13.1) SEC INR (0.9-1.1) Sodium 140 (135-145) mmol/L Potassium 3.3 (3.3-5.1) mmol/L Chloride 100 (96-108) mmol/L Carbon Dioxide 24 (22-29) mmol/L Anion Gap 19 (12-20) BUN 16 (9-16) mg/dL Creatinine 1.23 (0.5-1.4) mg/dL Estim Creat Clear Calc 50.2 Estimated GFR 45 Random Glucose 193 H (60-115) mg/dL Calcium 9.7 (8.4-10.2) mg/dL Magnesium 2.1 (1.6-2.6) mg/dL Total Bilirubin 0.9 (0.0-1.0) mg/dL AST 16 (5-31) U/L ALT 14 (0-31) U/L Alkaline Phosphatase 99 (39-117) U/L Troponin I High Sens (<3.5-17.0) ng/L B-Natriuretic Peptide (<100) pg/mL Total Protein 7.3 (6.5-8.0) g/dL Albumin 4.2 (3.5-5.0) g/dL Lipase 35 (8-78) U/L Influenza Type A (PCR) NEGATIVE (Negative) Influenza Type B (PCR) NEGATIVE (Negative) RSV RNA Qual (PCR) NEGATIVE (Negative) SARS-CoV-2 RNA (RT-PCR) POSITIVE A (Negative) 06/06/22 06/06/22 06/06/22 Range/Units 11:39 11:39 11:39 WBC (4.8-10.8) X10*3/uL RBC (4.20-5.50) X10*6/uL Hgb (12.0-16.0) g/dl Hct (37.0-47.0) % MCV (80.0-98.0) fL MCH (27.0-33.0) pg MCHC (31.0-35.0) g/dl RDW (11.0-16.0) % Plt Count (160-400) X10*3/uL MPV (9.4-12.3) fL Immature Gran % (Auto) (0.0-0.4) % Neut % (Auto) (45-73) % Lymph % (Auto) (20-40) % Bryan % (Auto) (2-11) % Eos % (Auto) (0-4) % Baso % (Auto) (0-2) % Lymph # (Auto) (1.2-4.9) X10*3/uL Bryan # (Auto) (0.1-1.2) X10*3/uL Eos # (Auto) (0.0-0.4) X10*3/uL Baso # (Auto) (0.0-0.2) X10*3/uL Abs Immat Gran (auto) (0.00-0.03) X10*3/uL Absolute Neuts (auto) (2.0-8.3) x10*3/uL Absolute Nucleated RBC (0.0-0.012) X10*3/uL Nucleated RBC % (auto) (0.0-0.2) /100WBC PT 13.2 H (10.0-13.1) SEC INR 1.1 (0.9-1.1) Sodium (135-145) mmol/L Potassium (3.3-5.1) mmol/L Chloride (96-108) mmol/L Carbon Dioxide (22-29) mmol/L Anion Gap (12-20) BUN (9-16) mg/dL Creatinine (0.5-1.4) mg/dL Estim Creat Clear Calc Estimated GFR Random Glucose (60-115) mg/dL Calcium (8.4-10.2) mg/dL Magnesium (1.6-2.6) mg/dL Total Bilirubin (0.0-1.0) mg/dL AST (5-31) U/L ALT (0-31) U/L Alkaline Phosphatase (39-117) U/L Troponin I High Sens < 3.5 (<3.5-17.0) ng/L B-Natriuretic Peptide 18 (<100) pg/mL Total Protein (6.5-8.0) g/dL Albumin (3.5-5.0) g/dL Lipase (8-78) U/L Influenza Type A (PCR) (Negative) Influenza Type B (PCR) (Negative) RSV RNA Qual (PCR) (Negative) SARS-CoV-2 RNA (RT-PCR) (Negative) 06/06/22 Range/Units 14:22 WBC (4.8-10.8) X10*3/uL RBC (4.20-5.50) X10*6/uL Hgb (12.0-16.0) g/dl Hct (37.0-47.0) % MCV (80.0-98.0) fL MCH (27.0-33.0) pg MCHC (31.0-35.0) g/dl RDW (11.0-16.0) % Plt Count (160-400) X10*3/uL MPV (9.4-12.3) fL Immature Gran % (Auto) (0.0-0.4) % Neut % (Auto) (45-73) % Lymph % (Auto) (20-40) % Bryan % (Auto) (2-11) % Eos % (Auto) (0-4) % Baso % (Auto) (0-2) % Lymph # (Auto) (1.2-4.9) X10*3/uL Bryan # (Auto) (0.1-1.2) X10*3/uL Eos # (Auto) (0.0-0.4) X10*3/uL Baso # (Auto) (0.0-0.2) X10*3/uL Abs Immat Gran (auto) (0.00-0.03) X10*3/uL Absolute Neuts (auto) (2.0-8.3) x10*3/uL Absolute Nucleated RBC (0.0-0.012) X10*3/uL Nucleated RBC % (auto) (0.0-0.2) /100WBC PT (10.0-13.1) SEC INR (0.9-1.1) Sodium (135-145) mmol/L Potassium (3.3-5.1) mmol/L Chloride (96-108) mmol/L Carbon Dioxide (22-29) mmol/L Anion Gap (12-20) BUN (9-16) mg/dL Creatinine (0.5-1.4) mg/dL Estim Creat Clear Calc Estimated GFR Random Glucose (60-115) mg/dL Calcium (8.4-10.2) mg/dL Magnesium (1.6-2.6) mg/dL Total Bilirubin (0.0-1.0) mg/dL AST (5-31) U/L ALT (0-31) U/L Alkaline Phosphatase (39-117) U/L Troponin I High Sens 3.9 (<3.5-17.0) ng/L B-Natriuretic Peptide (<100) pg/mL Total Protein (6.5-8.0) g/dL Albumin (3.5-5.0) g/dL Lipase (8-78) U/L Influenza Type A (PCR) (Negative) Influenza Type B (PCR) (Negative) RSV RNA Qual (PCR) (Negative) SARS-CoV-2 RNA (RT-PCR) (Negative) Independent Interpretation I performed an independent interpretation of an: CT Scan Interpretation: FINDINGS: PULMONARY ARTERIES: There are no large central emboli, there are however nonocclusive filling defects in secondary and tertiary branches of the pulmonary artery to the right upper and right lower lobes, which could be artifact, cannot entirely rule out the possibility of small nonocclusive emboli. No CT evidence of cardiac strain. No pulmonary infarct. LINES/TUBES: None LUNGS: Lung Parenchyma: There is mild vascular congestion, patchy interstitial opacification over the right upper lobe, lingula, both right and left lower lobe, could be areas of superimposed patchy interstitial pneumonitis versus areas of edema's. Lung Nodules:There are no significant lung nodules. AIRWAYS: Trachea and bronchi are normal. PLEURA: No pleural effusion or pneumothorax. MEDIASTINUM AND ROBERTO: The visualized thyroid gland is unremarkable. No mediastinal, hilar or axillary lymphadenopathy. ? There is no mediastinal mass. VESSELS: Thoracic aorta is normal in size. HEART AND PERICARDIUM: Heart is normal in size. There is no pericardial effusion. There are coronary calcifications. CHEST WALL, LOWER NECK, SURROUNDING SOFT TISSUES: Normal VISUALIZED ABDOMEN: Unremarkable BONES: The visualized bony thorax is within normal limits. CT/CT angio chest PE protocol IMPRESSION: ? *? There are no large central emboli, there are however nonocclusive filling defects in secondary and tertiary branches of the pulmonary arteries to the right upper and right lower lobes, which could be artifact, cannot entirely rule out the possibility of small nonocclusive emboli. No CT evidence of cardiac strain. No pulmonary infarct. ? *? Mild vascular congestion, patchy interstitial opacification over the right upper lobe, lingula, both right and left lower lobe, could be superimposed patchy interstitial pneumonitis versus edema. ? *? Mild Coronary calcifications. FINDINGS: LOWER THORAX: Included lung bases are clear. HEPATOBILIARY: No focal hepatic lesions. No biliary ductal dilatation. GALLBLADDER: Gallbladder unremarkable. SPLEEN: Spleen is normal in size. PANCREAS: No focal mass or ductal dilatation. STOMACH AND GASTROINTESTINAL TRACT: Stomach is grossly unremarkable. There is no bowel distention or thickening. No CT evidence of appendicitis. ADRENALS: No adrenal nodules. KIDNEYS/URETERS: No hydronephrosis, stones or solid mass lesions. URINARY BLADDER: Partially decompressed. PELVIC VISCERA: Metallic object in the pelvis likely tubal ligation otherwise Unremarkable PERITONEUM: No free air or fluid. LYMPH NODES: No lymphadenopathy. VASCULAR: Mild aortic vascular calcification. Abdominal aorta normal in size, no aneurysm found. BONES, ABDOMINAL WALL AND SOFT TISSUES: Age-appropriate changes of the spine and skeletal system, no destructive osteolytic or osteosclerotic bone lesion found CT/CT abdomen pelvis w IV con IMPRESSION: No CT evidence of acute intra-abdominal process to explain patient's pain symptoms. ? Normal appendix. ? No kidney stone or hydronephrosis. ? Bilateral tubal ligation devices. Radiology Impression Discussion of test interpretation with radiology: I have reviewed the radiologis t's reading. External Record Review External record reviewed: Inpatient record, Office record, Outpatient record, Prior outpatient labs, Prior outpatient radiology, Primary care record and Outside ED record Critical Care Time Critical Care Time Critical Care Time: Yes Total Critical Care Time: 60 Attestation: I personally attest to this time spent taking care of the patient Discharge Plan Discharge Clinical Impression: COVID-19 Patient Disposition: Home, Self-Care Instructions: COVID-19 (Coronavirus Disease 2019) (ED) Prescriptions: New azithromycin 250 mg tablet See Rx Instructions .ROUTE .COMPLEX Qty: 6 0RF Rx Instructions: take 500 mg today (day 1), then 250 mg for 4 days (days 2-5) codeine-guaifenesin [Guaifenesin AC] 10-100 mg/5 mL liquid 5 ml PO Q6H PRN (Reason: cold symptoms) Qty: 120 0RF albuterol sulfate 90 mcg/actuation HFA aerosol inhaler 1 inh inhalation QID PRN (Reason: shortness of breath or wheezing) Qty: 8.5 0RF prednisone 20 mg tablet 40 mg PO DAILY 5 Days Qty: 10 0RF cefuroxime axetil 250 mg tablet 250 mg PO BID 7 Days Qty: 14 0RF No Action nitrofurantoin macrocrystal 50 mg capsule 50 mg PO BEDTIME 10 Days Qty: 10 1RF Rx Instructions: must administer with a meal/food Gemtesa 75 mg tablet 75 mg PO DAILY 90 Days Qty: 90 1RF ondansetron 4 mg tablet,disintegrating 4 mg PO Q6H PRN (Reason: nausea and vomiting) Qty: 14 0RF (DME) lancets 30 gauge misc See Rx Instructions .ROUTE TID Qty: 100 Rx Instructions: As directed (DME) pen needle, diabetic 32 gauge x 5/32 needle See Rx Instructions .ROUTE .MEDSUPPLY Qty: 50 Rx Instructions: As directed cholecalciferol (vitamin D3) 50 mcg (2,000 unit) capsule 50 mcg PO BEDTIME diclofenac sodium 1 % gel topical loratadine 10 mg tablet 10 mg PO DAILY fluticasone propionate 50 mcg/actuation spray,suspension 0 mcg intranasal BID losartan 100 mg tablet 100 mg PO DAILY hydrochlorothiazide 25 mg tablet 25 mg PO QAM alcohol swabs Pads, Medicated topical TID montelukast 10 mg tablet 10 mg PO DAILY omeprazole 20 mg capsule,delayed release(DR/EC) 20 mg PO DAILY temazepam 30 mg capsule 30 mg PO BEDTIME PRN citalopram 20 mg tablet 20 mg PO DAILY amlodipine 5 mg tablet 5 mg PO DAILY (DME) FreeStyle Lite Strips Strip See Rx Instructions Not Applicable TID Qty: 10 Rx Instructions: As directed metformin 850 mg tablet 850 mg PO BID metoprolol succinate 100 mg tablet extended release 24 hr 100 mg PO DAILY atorvastatin 10 mg tablet 10 mg PO DAILY citalopram 40 mg tablet 40 mg PO DAILY Eliquis 5 mg tablet 5 mg PO BID oxycodone 30 mg tablet 30 mg PO TID PRN triamcinolone acetonide 0.025 % cream topical tizanidine 4 mg tablet 4 mg PO TID PRN benzonatate 100 mg capsule 100 mg PO TID metronidazole 0.75 % gel 1 appful vaginal BEDTIME Trulicity 3 mg/0.5 mL pen injector subcut QWEEK Lantus Solostar U-100 Insulin 100 unit/mL (3 mL) insulin pen subcut BEDTIME insulin lispro 100 unit/mL insulin pen 30 unit subcut TID gemfibrozil 600 mg tablet 600 mg PO BID Trulicity 4.5 mg/0.5 mL pen injector subcut Jardiance 10 mg tablet 10 mg PO QAM (DME) Poise Pads Pad See Rx Instructions .ROUTE .MEDSULY Qty: 90 0RF Rx Instructions: As directed Referrals: Bang Hilario MD [Primary Care Provider] - 2 days
[2022-06-06 13:15] LABS: B Type Natriuretic Peptide 18 pg/mL (<100)
[2022-06-06] MEDS: amLODIPine Besylate 5 MG TABLET PO (14:13)
[2022-06-06] MEDS: hydroCHLOROthiazide 25 MG TABLET PO (14:13)
[2022-06-06] MEDS: iohexoL 350 MG/ML 100 ML INFUS..BTL IV (14:18)
[2022-06-06 14:45] LABS: Troponin-I High Sensitivity 3.9 ng/L (<3.5-17.0)
== END 2022-06-06 15:54 | disposition home or self-care (01) ==
PROVIDERS: Physician Assistant Medical; Emergency Provider Student in an Organized Health Care Education/Training Program; PCP Hospitalist
DX: U07.1 COVID-19 (principal); R51.9 Headache, unspecified; I10 Essential (primary) hypertension; R32 Unspecified urinary incontinence; M54.2 Cervicalgia; R10.13 Epigastric pain; R06.02 Shortness of breath; R53.1 Weakness; Z79.01 Long term (current) use of anticoagulants; Z79.899 Other long term (current) drug therapy; Z86.711 Personal history of pulmonary embolism
CPT/HCPCS: 0241U; 36415; 71275; 74177; 80053; 83690; 83735; 83880; 84484; 85025; 85610; 93005; 94640; 96361; 96374; 96375; 99285; J2060; J2405; Q9967

== ENCOUNTER → 2022-06-22 13:32 | Outpatient (BNVA) | payer OTHER, SELFPAY | PROVIDERS: PCP Hospitalist; Visit Provider Nurse Practitioner Family | DX: Z13.89 Encounter for screening for other disorder (principal) ==

== ENCOUNTER 2022-07-02 13:39 | Emergency (ER) | payer OTHER, SELFPAY ==
--- NOTE | ~2022-07-02 | XR_ITS ---
EXAMINATION: XR SHOULDER, LEFT CLINICAL INFORMATION: Lump, pain COMPARISON: CTA chest 06/06/2022 TECHNIQUE: Left shoulder is imaged in 3 views. FINDINGS: No fracture or dislocation. The glenohumeral joint is unremarkable. No visible rotator cuff calcifications. There is mild widening of the acromioclavicular joint, possibly related to prior sprain. There is mild superior spurring at the distal clavicle and superior spurring at the acromium which could be related to palpable concern. Clinically correlate. Left lung apex is clear. There is no pneumothorax or pleural reaction. XR/XR shoulder LT min 2V IMPRESSION: 1. Mild widening acromioclavicular joint, possibly related to prior sprain. 2. Superior spurring distal clavicle and superior acromium which could be related to palpable concern. Clinically correlate. 3. No fracture, dislocation, or visible rotator cuff calcifications.
--- NOTE | ~2022-07-02 | CT_ITS ---
EXAMINATION: CT CERVICAL SPINE WITHOUT CONTRAST CLINICAL INFORMATION: Fall, trauma 2 weeks ago. Neck pain. COMPARISON: CT had noncontrast 07/02/2022 TECHNIQUE: Multidetector volumetric CT imaging of the cervical spine is performed without contrast in the axial plane. Additional 2D reformatted coronal and sagittal images are generated on the CT workstation and uploaded to PACS. This CT examination was performed using dose optimization techniques as appropriate, variously including the following: *Automated exposure control *Adjustment of mA and/or kV according to patient size (this includes techniques or standardized protocols for targeted exams where dose is matched to indication/reason for exam; i.e. extremities or head) *Use of iterative reconstruction technique DLP: 571 mGy-cm FINDINGS: There is no vertebral compression fracture, fracture line, spondylolisthesis, or prevertebral soft tissue swelling. The craniocervical junction appears normal. The odontoid appears intact. There is straightening cervical lordosis. Degenerative disc changes are present at C4-C5 and C6-C7 with disc narrowing and vertebral spurring. There is are also degenerative changes between anterior arch C1 and the dens. There is no apical pneumothorax. No subcutaneous emphysema. CT/CT cervical spine wo IV con IMPRESSION: 1. No acute bony abnormality or prevertebral soft tissue swelling. 2. Degenerative disc changes C4-C5 and C6-C7.
--- NOTE | ~2022-07-02 | CT_ITS ---
EXAMINATION: CT HEAD WITHOUT CONTRAST CLINICAL INFORMATION: Fall, trauma 2 weeks ago. Headache. COMPARISON: None TECHNIQUE: Contiguous axial imaging was performed from the skull base to vertex without intravenous administration of contrast. Additional 2-D coronal and sagittal reformatted images are generated on the CT workstation and uploaded to PACS. This CT examination was performed using dose optimization techniques as appropriate, variously including the following: *Automated exposure control *Adjustment of mA and/or kV according to patient size (this includes techniques or standardized protocols for targeted exams where dose is matched to indication/reason for exam; i.e. extremities or head) *Use of iterative reconstruction technique DLP: 665 mGy-cm FINDINGS: There is no intracranial hemorrhage, hematoma, or extra-axial fluid collection. The ventricles are normal in size. There is no hydrocephalus, edema, or mass effect. The camarena-white matter differentiation appears well preserved . There is mild periventricular white matter gliosis adjacent to the frontal horns and anterior centrum semiovale consistent with mild chronic small vessel ischemic change. There is no visible acute territorial infarct or mass lesion. The calvarium appears intact. There is no pneumocephalus or orbital emphysema. The visualized sinuses and middle ears and mastoid air cells show no significant mucosal thickening. There are no air-fluid levels. CT/CT head/brain wo IV con IMPRESSION: No acute intracranial abnormality.
[2022-07-02 13:47] VITALS: BP 136/82; PULSE 98; RESP 18; TEMP 36.8; O2SAT 98; BMI 36.2
--- NOTE | 2022-07-02 13:47 | ED.GENADULT ---
HPI - General Adult General Chief complaint: Headache <ANITA Zimmerman - Last Filed: 07/02/22 13:48> Stated complaint: pain from head to L shoulder <ANITA Zimmerman Last Filed: 07/02/22 13:48> Time Seen by Provider: 07/02/22 17:40 <ANITA Zimmerman Last Filed: 07/02/22 13:48> Source: patient <ANITA Colin Last Filed: 07/02/22 20:45> Mode of arrival: ambulatory <ANITA Colin Last Filed: 07/02/22 20:45> Limitations: no limitations <ANITA Colin Last Filed: 07/02/22 20:45> History of Present Illness HPI narrative: 61-year-old female with a history of hypertension and diabetes presents for 2 weeks of a left-sided headache that radiates to her shoulder and at times down her entire L. arm. Patient states she is in 04/17. Patient states that touching the area and moving makes it worse. Patient tells me that 2 weeks ago she dropped something and crawled under the table to retrieve it and hit her head when she was standing up, pain has been constant since then there was no LOC. Patient is currently on Eliquis. Patient states that icing her shoulder area it is the only way to relieve the pain. Has taken oxycodone for the pain with no relief. Patient denies fevers, chills, cp, sob, nausea, vomiting, dizziness, abdominal pain, numbness, tingling, vision changes. NIHSS-0 <ANITA Colin Last Filed: 07/02/22 20:45> Related Data Home medications: Home Medications Medication Instructions Recorded Confirmed alcohol swabs pad topical TID 10/16/20 amlodipine 5 mg tablet 5 mg PO DAILY 10/16/20 apixaban 5 mg tablet 5 mg PO BID 10/16/20 atorvastatin 10 mg tablet 10 mg PO DAILY 10/16/20 blood sugar diagnostic #10 ea 10/16/20 cholecalciferol (vitamin D3) 50 50 mcg PO BEDTIME 10/16/20 mcg (2,000 unit) capsule citalopram 40 mg tablet 40 mg PO DAILY 10/16/20 diclofenac sodium 1 % topical gel g topical 10/16/20 fluticasone propionate 50 0 mcg intranasal BID 10/16/20 mcg/actuation nasal spray,suspension hydrochlorothiazide 25 mg tablet 25 mg PO QAM 10/16/20 lancets 30 gauge #100 ea 10/16/20 loratadine 10 mg tablet 10 mg PO DAILY 10/16/20 losartan 100 mg tablet 100 mg PO DAILY 10/16/20 metoprolol succinate 100 mg 100 mg PO DAILY 10/16/20 tablet,extended release 24 hr montelukast 10 mg tablet 10 mg PO DAILY 10/16/20 omeprazole 20 mg capsule,delayed 20 mg PO DAILY 10/16/20 release oxycodone 30 mg tablet 30 mg PO TID PRN 10/16/20 pen needle, diabetic 32 gauge x #50 ea 10/16/20 temazepam 30 mg capsule 30 mg PO BEDTIME PRN 10/16/20 triamcinolone acetonide 0.025 % appl topical 10/16/20 topical cream tizanidine 4 mg tablet 4 mg PO TID PRN 12/11/20 12/11/20 benzonatate 100 mg capsule 100 mg PO TID 08/14/21 gemfibrozil 600 mg tablet 600 mg PO BID 08/14/21 insulin glargine 100 unit/mL (3 unit subcut BEDTIME 08/14/21 mL) subcutaneous pen (Lantus Solostar U-100 Insulin) insulin lispro 100 unit/mL 30 unit subcut TID 08/14/21 subcutaneous pen metronidazole 0.75 % (37.5 mg/5 1 appful vaginal BEDTIME 08/14/21 gram) vaginal gel dulaglutide 4.5 mg/0.5 mL mg subcut 12/15/21 subcutaneous pen injector (Trulicity) empagliflozin 10 mg tablet 10 mg PO QAM 12/15/21 (Jardiance) Previous Rx's Medication Instructions Recorded nitrofurantoin macrocrystal 50 mg 50 mg PO BEDTIME 10 days #10 caps 12/31/20 capsule incontinence pad, liner, disp #90 ea 11/13/21 (Poise Pads) ondansetron 4 mg disintegrating 4 mg PO Q6H PRN nausea and 01/22/22 tablet vomiting #14 tabs vibegron 75 mg tablet (Gemtesa) 75 mg PO DAILY 90 days #90 tabs 04/27/22 albuterol sulfate 90 mcg/actuation 1 inh inhalation QID PRN shortness 06/06/22 aerosol inhaler of breath or wheezing #8.5 grams pumpkin seed extract-soy germ 300 1 cap PO DAILY 30 days #30 caps 06/22/22 mg capsule (Azo Bladder Control) diphenhydramine HCl 25 mg capsule 25 mg PO TID PRN headache #20 caps 07/02/22 (Benadryl) lidocaine 5 % topical patch 1 patch topical DAILY PRN pain #15 07/02/22 ea metoclopramide HCl 10 mg tablet 10 mg PO Q6H PRN nausea and 07/02/22 (Reglan) vomiting #20 tabs morphine 15 mg immediate release 15 mg PO Q6H PRN pain 5 days #10 07/02/22 tablet tabs prednisone 20 mg tablet 20 mg PO DAILY 5 days #5 tabs 07/02/22 <ANITA Zimmerman - Last Filed: 07/02/22 13:48> Allergies/adverse reactions: Allergies Allergy/AdvReac Type Severity Reaction Status Date / Time oxybutynin Allergy Severe Difficulty Verified 07/02/22 13:47 Swallowing tolterodine Allergy Severe Difficulty Verified 07/02/22 13:47 Swallowing acetaminophen [Percocet] Allergy Unknown hives Verified 07/02/22 13:47 aspirin Allergy Unknown anaphylaxis Verified 07/02/22 13:47 citalopram Allergy Unknown Unknown Verified 07/02/22 13:47 gabapentin Allergy Unknown hives Verified 07/02/22 13:47 hydrocodone [Vicodin] Allergy Unknown hives Verified 07/02/22 13:47 naproxen [Naprosyn] Allergy Unknown anaphylaxis Verified 07/02/22 13:47 oxycodone [Percocet] Allergy Unknown hives Verified 07/02/22 13:47 sertraline Allergy Unknown Unknown Verified 07/02/22 13:47 peanut Allergy Anaphylaxis Verified 06/22/22 16:01 solifenacin AdvReac phlegm Verified 06/22/22 16:01 Vicodin Allergy Unknown hives Uncoded 06/22/22 16:01 <ANITA Zimmerman - Last Filed: 07/02/22 13:48> Review of Systems Review of Systems: Constitutional : No Weight loss, No Fever, No Chills, No Fatigue, No Malaise ENT/Mouth : No sore throat, No Rhinorrhea Eyes: No Eye Pain, No Swelling, No Redness Cardiovascular : No Chest Pain, No SOB, No Dyspnea on Exertion, No Orthopnea, No Edema, No Palpitations Respiratory : No Cough, No Sputum, No Wheezing Gastrointestinal : No Nausea, No Vomiting, No Diarrhea, No Constipation, No abdominal Pain, No Hematochezia, No Melena Genitourinary : No Dysuria, No Urinary Frequency, No Hematuria, Musculoskeletal : No joint pain, + Myalgias, No Joint Swelling, + neck pain Skin : No Skin Lesions, No rash Neuro : No Weakness, No Numbness, No Dizziness, No Headache Psych : No Anxiety/Panic, No Depression All other systems reviewed and are negative <ANITA Colin - Last Filed: 07/02/22 20:45> Yes all other systems are reviewed and are negative <ANITA Colin - Last Filed: 07/02/22 20:45> [facility] Past Medical History Attestation statement: The following information was validated with the patient. <ANITA Colin - Last Filed: 07/02/22 20:45> Source: old records reviewed and nursing notes reviewed <ANITA Colin - Last Filed: 07/02/22 20:45> Medical History: Medical History Diabetes mellitus HTN (hypertension) Urinary incontinence Urinary incontinence UTI (urinary tract infection) <ANITA Zimmerman - Last Filed: 07/02/22 13:48> Surgical History: Surgical History History of surgery <ANITA Zimmerman - Last Filed: 07/02/22 13:48> Social History Social History: Social History Alcohol intake: never Patient Tobacco Use Status: Never used Tobacco Advance Directives: No Advance Directives Information Provided: No <ANITA Zimmerman - Last Filed: 07/02/22 13:48> Physical Exam ED Vital Signs: Vital Signs - 24 hr 02/24/23 13:47 07/02/22 17:18 Temperature 98.2 F 98.5 F Pulse Rate 98 94 Respiratory Rate 18 20 Blood Pressure 136/82 152/82 H Pulse Oximetry 98 98 Oxygen Delivery Method Room Air Room Air BMI result Body Mass Index 36.2 <ANITA Zimmerman Last Filed: 07/02/22 13:48> Vital Signs - 24 hr 07/02/22 13:47 07/02/22 17:18 Temperature 98.2 F 98.5 F Pulse Rate 98 94 Respiratory Rate 18 20 Blood Pressure 136/82 152/82 H Pulse Oximetry 98 98 Oxygen Delivery Method Room Air Room Air BMI result Body Mass Index 36.2 vss <ANITA Colin Last Filed: 07/02/22 20:45> Appearance: Alert.? Oriented X3.? No acute distress.? Head: Normocephalic, atraumatic, no step-offs or deformities Eyes: Pupils equal, round and reactive to light.? ENT: Pharynx normal.??External ears normal, TMs normal bilaterally and EAC's normal. No pain with manipulation of external ears bilaterally. No mastoid tenderness. Neck: Normal inspection.? Neck supple.? No midline tenderness to neck. CVS: Normal heart rate and rhythm.? Pulses normal.? Respiratory: No respiratory distress.? Breath sounds normal.? Abdomen: Soft and nontender.? Skin: Skin warm and dry.? Normal skin color.? Normal skin turgor.? Extremities: No lower extremity edema.? No calf ttp. 5/5 strength to bilateral upper and lower extremities Back: No midline tenderness, no C-spine tenderness, full range of motion, no CVA tenderness bilaterally + Left sided cervical paraspinous tenderness throughout, w/ tenderness to palpation over L. sided trapezius and latissimus dorsi. Neuro: Oriented X 3.? No motor deficit.? No sensory deficit. CN 2-12 intact . Patient ambulating with steady gait normal coordination.Normal finger to nose. <ANITA Colin Last Filed: 07/02/22 20:45> Course Course Course Narrative: RME performed by Maria E Montes PA-C. Patient is a 61 year old female presenting to the emergency department with a headache. Patient states that she hit her head 2 weeks and is having a lot of pain in her head and her neck. Patient states that she also has a lump on her left shoulder. Imaging ordered. Patient placed back in the waiting room pending results and room availability. <ANITA Zimmerman - Last Filed: 07/02/22 13:48> Reevaluation(s) Reevaluation #1: Patient reports this is the best she has felt in weeks, she reports her headache is completely gone. Her left shoulder still feel somewhat sore however much improved. Patient appears much more comfortable than she did when she 1st arrived initially reporting 12/10 pain now reporting her headache is at is 0 and her left shoulder is just slightly bothering her however she states she is very happy as she is finally feeling better. I suspect cervical radiculopathy. As well as headache. Educated patient on diagnosis and treatment plan, answered all question, patient verbalizes understanding. At this time patient will be discharged home, advised to return with new or worsening symptoms. Educated on worrisome signs and symptoms and when to return. At this time I feel comfortable discharge home. <ANITA Colin - Last Filed: 07/02/22 20:45> Time: 18:30 <ANITA Colin - Last Filed: 07/02/22 20:45> Reevaluation #2: Patients CBC wnl. noted to have an acute kidney injury, I explained to her that she would benefit from IV fluids and repeat laboratory studies, patient refusing she tells me she feels so much better. She tells me she is going to drink a lot of water at home advised her to follow-up with her PCP to have repeat laboratory studies. Upon chart review it appears as though patient's kidney function has been this high before however is not around her baseline. She is hydrating tolerating p.o., feels better ambulatory, no complaints with urination no abdominal pain or flank pain. Patient will be discharged home. <ANITA Colin - Last Filed: 07/02/22 20:45> Medications Administered Discontinued Medications Generic Name Dose Route Start Last Admin Trade Name Freq PRN Reason Stop Dose Admin Diazepam 2 mg 07/02/22 17:54 07/02/22 18:16 Diazepam 2 Mg Tablet PO 07/02/22 17:55 2 mg ONCE ONE Administration Diphenhydramine HCl 25 mg 07/02/22 17:40 07/02/22 17:51 Diphenhydramine Hcl 25 Mg Capsule PO 07/02/22 17:41 25 mg ONCE ONE Administration Sodium Chloride 1,000 mls @ 999 mls/hr 07/02/22 20:15 07/02/22 20:25 Ns IV 07/02/22 21:15 Not Given .Q1H1M LATASHA Lidocaine 1 patch 07/02/22 17:54 07/02/22 18:16 Lidocaine 4 % Patch Adh..Patch TRANSDERMA 07/02/22 17:55 1 patch ONCE ONE Administration Protocol Metoclopramide HCl 10 mg 07/02/22 17:40 07/02/22 17:51 Metoclopramide Hcl 10 Mg Tablet PO 07/02/22 17:41 10 mg ONCE ONE Administration Morphine Sulfate 15 mg 07/02/22 17:54 07/02/22 18:16 Morphine Sulfate Immed Release 15 Mg Tablet PO 07/02/22 17:55 15 mg ONCE ONE Administration <ANITA Zimmerman - Last Filed: 07/02/22 13:48> Medications Administered Discontinued Medications Generic Name Dose Route Start Last Admin Trade Name Freq PRN Reason Stop Dose Admin Diazepam 2 mg 07/02/22 17:54 07/02/22 18:16 Diazepam 2 Mg Tablet PO 07/02/22 17:55 2 mg ONCE ONE Administration Diphenhydramine HCl 25 mg 07/02/22 17:40 07/02/22 17:51 Diphenhydramine Hcl 25 Mg Capsule PO 07/02/22 17:41 25 mg ONCE ONE Administration Sodium Chloride 1,000 mls @ 999 mls/hr 07/02/22 20:15 07/02/22 20:25 Ns IV 07/02/22 21:15 Not Given .Q1H1M LATASHA Lidocaine 1 patch 07/02/22 17:54 07/02/22 18:16 Lidocaine 4 % Patch Adh..Patch TRANSDERMA 07/02/22 17:55 1 patch ONCE ONE Administration Protocol Metoclopramide HCl 10 mg 07/02/22 17:40 07/02/22 17:51 Metoclopramide Hcl 10 Mg Tablet PO 07/02/22 17:41 10 mg ONCE ONE Administration Morphine Sulfate 15 mg 07/02/22 17:54 07/02/22 18:16 Morphine Sulfate Immed Release 15 Mg Tablet PO 07/02/22 17:55 15 mg ONCE ONE Administration <ANITA Colin - Last Filed: 07/02/22 20:45> Medical Decision Making Medical Decision Making [facility] Narrative: 1757 61-year-old female presents with headache, neck pain with intermittent radiation down left arm, exacerbated by movement better at rest. Physical exam significant for Left sided cervical paraspinous tenderness throughout, w/ tenderness to palpation over L. sided trapezius and latissimus dorsi. Patient's neuro exam nonfocal. Cerebellar intact. Bilateral tympanic membranes and ear canals within normal limits. Negative Kernig and Brudzinski Likely cervical radiculopathy and probable headache. I do not suspect intracranial hemorrhage, stroke, posterior stroke, disection, meningitis, epidural abscess, cord compression. Plan at this time basic labs, inflammatory markers, head CT, medications for pain <ANITA Colin - Last Filed: 07/02/22 20:45> Differential Diagnosis Differential Diagnoses: The differential diagnosis associated with the presentation includes <ANITA Colin - Last Filed: 07/02/22 20:45> Likely cervical radiculopathy and probable headache. I do not suspect intracranial hemorrhage, stroke, disection, posterior stroke, meningitis, epidural abscess, cord compression. <ANITA Colin - Last Filed: 07/02/22 20:45> Admission/Observation Consideration of admission/observation: Escalation of care including admission/observation considered <ANITA Colin - Last Filed: 07/02/22 20:45> Unlikely <ANITA Colin - Last Filed: 07/02/22 20:45> Lab Data Result Diagrams: 07/02/22 19:31 07/02/22 19:31 <ANITA Zimmerman - Last Filed: 07/02/22 13:48> Labs: Lab Results 07/02/22 07/02/22 07/02/22 Range/Units 19:31 19:31 19:31 WBC 10.5 (4.8-10.8) X10*3/uL RBC 4.91 (4.20-5.50) X10*6/uL Hgb 15.0 (12.0-16.0) g/dl Hct 43.8 (37.0-47.0) % MCV 89.2 (80.0-98.0) fL MCH 30.5 (27.0-33.0) pg MCHC 34.2 (31.0-35.0) g/dl RDW 13.5 (11.0-16.0) % Plt Count 364 D (160-400) X10*3/uL MPV 8.9 L (9.4-12.3) fL Immature Gran % (Auto) 0.4 (0.0-0.4) % Neut % (Auto) 53.1 (45-73) % Lymph % (Auto) 35.8 (20-40) % Lipscomb % (Auto) 7.9 (2-11) % Eos % (Auto) 2.3 (0-4) % Baso % (Auto) 0.5 (0-2) % Lymph # (Auto) 3.8 (1.2-4.9) X10*3/uL Lipscomb # (Auto) 0.8 (0.1-1.2) X10*3/uL Eos # (Auto) 0.2 (0.0-0.4) X10*3/uL Baso # (Auto) 0.1 (0.0-0.2) X10*3/uL Abs Immat Gran (auto) 0.04 H (0.00-0.03) X10*3/uL Absolute Neuts (auto) 5.6 (2.0-8.3) x10*3/uL Absolute Nucleated RBC 0.000 (0.0-0.012) X10*3/uL Nucleated RBC % (auto) 0.0 (0.0-0.2) /100WBC ESR 34 H (0-20) MM/HR Sodium 138 (135-145) mmol/L Potassium 3.5 (3.3-5.1) mmol/L Chloride 99 (96-108) mmol/L Carbon Dioxide 28 (22-29) mmol/L Anion Gap 15 (12-20) BUN 27 H (9-16) mg/dL Creatinine 1.61 H (0.5-1.4) mg/dL Estim Creat Clear Calc 39.2 Estimated GFR 33 Random Glucose 139 H (60-115) mg/dL Calcium 9.6 (8.4-10.2) mg/dL Total Bilirubin 0.9 (0.0-1.0) mg/dL AST 16 (5-31) U/L ALT 21 (0-31) U/L Alkaline Phosphatase 114 (39-117) U/L Troponin I High Sens (<3.5-17.0) ng/L C-Reactive Protein 1.42 H (< or = 0.50) mg/dL Total Protein 7.2 (6.5-8.0) g/dL Albumin 4.2 (3.5-5.0) g/dL 07/02/22 Range/Units 19:31 WBC (4.8-10.8) X10*3/uL RBC (4.20-5.50) X10*6/uL Hgb (12.0-16.0) g/dl Hct (37.0-47.0) % MCV (80.0-98.0) fL MCH (27.0-33.0) pg MCHC (31.0-35.0) g/dl RDW (11.0-16.0) % Plt Count (160-400) X10*3/uL MPV (9.4-12.3) fL Immature Gran % (Auto) (0.0-0.4) % Neut % (Auto) (45-73) % Lymph % (Auto) (20-40) % Lipscomb % (Auto) (2-11) % Eos % (Auto) (0-4) % Baso % (Auto) (0-2) % Lymph # (Auto) (1.2-4.9) X10*3/uL Lipscomb # (Auto) (0.1-1.2) X10*3/uL Eos # (Auto) (0.0-0.4) X10*3/uL Baso # (Auto) (0.0-0.2) X10*3/uL Abs Immat Gran (auto) (0.00-0.03) X10*3/uL Absolute Neuts (auto) (2.0-8.3) x10*3/uL Absolute Nucleated RBC (0.0-0.012) X10*3/uL Nucleated RBC % (auto) (0.0-0.2) /100WBC ESR (0-20) MM/HR Sodium (135-145) mmol/L Potassium (3.3-5.1) mmol/L Chloride (96-108) mmol/L Carbon Dioxide (22-29) mmol/L Anion Gap (12-20) BUN (9-16) mg/dL Creatinine (0.5-1.4) mg/dL Estim Creat Clear Calc Estimated GFR Random Glucose (60-115) mg/dL Calcium (8.4-10.2) mg/dL Total Bilirubin (0.0-1.0) mg/dL AST (5-31) U/L ALT (0-31) U/L Alkaline Phosphatase (39-117) U/L Troponin I High Sens 3.5 (<3.5-17.0) ng/L C-Reactive Protein (< or = 0.50) mg/dL Total Protein (6.5-8.0) g/dL Albumin (3.5-5.0) g/dL <ANITA Zimmerman - Last Filed: 07/02/22 13:48> Lab Results 07/02/22 07/02/22 07/02/22 Range/Units 19:31 19:31 19:31 WBC 10.5 (4.8-10.8) X10*3/uL RBC 4.91 (4.20-5.50) X10*6/uL Hgb 15.0 (12.0-16.0) g/dl Hct 43.8 (37.0-47.0) % MCV 89.2 (80.0-98.0) fL MCH 30.5 (27.0-33.0) pg MCHC 34.2 (31.0-35.0) g/dl RDW 13.5 (11.0-16.0) % Plt Count 364 D (160-400) X10*3/uL MPV 8.9 L (9.4-12.3) fL Immature Gran % (Auto) 0.4 (0.0-0.4) % Neut % (Auto) 53.1 (45-73) % Lymph % (Auto) 35.8 (20-40) % Lipscomb % (Auto) 7.9 (2-11) % Eos % (Auto) 2.3 (0-4) % Baso % (Auto) 0.5 (0-2) % Lymph # (Auto) 3.8 (1.2-4.9) X10*3/uL Lipscomb # (Auto) 0.8 (0.1-1.2) X10*3/uL Eos # (Auto) 0.2 (0.0-0.4) X10*3/uL Baso # (Auto) 0.1 (0.0-0.2) X10*3/uL Abs Immat Gran (auto) 0.04 H (0.00-0.03) X10*3/uL Absolute Neuts (auto) 5.6 (2.0-8.3) x10*3/uL Absolute Nucleated RBC 0.000 (0.0-0.012) X10*3/uL Nucleated RBC % (auto) 0.0 (0.0-0.2) /100WBC ESR 34 H (0-20) MM/HR Sodium 138 (135-145) mmol/L Potassium 3.5 (3.3-5.1) mmol/L Chloride 99 (96-108) mmol/L Carbon Dioxide 28 (22-29) mmol/L Anion Gap 15 (12-20) BUN 27 H (9-16) mg/dL Creatinine 1.61 H (0.5-1.4) mg/dL Estim Creat Clear Calc 39.2 Estimated GFR 33 Random Glucose 139 H (60-115) mg/dL Calcium 9.6 (8.4-10.2) mg/dL Total Bilirubin 0.9 (0.0-1.0) mg/dL AST 16 (5-31) U/L ALT 21 (0-31) U/L Alkaline Phosphatase 114 (39-117) U/L Troponin I High Sens (<3.5-17.0) ng/L C-Reactive Protein 1.42 H (< or = 0.50) mg/dL Total Protein 7.2 (6.5-8.0) g/dL Albumin 4.2 (3.5-5.0) g/dL 07/02/22 Range/Units 19:31 WBC (4.8-10.8) X10*3/uL RBC (4.20-5.50) X10*6/uL Hgb (12.0-16.0) g/dl Hct (37.0-47.0) % MCV (80.0-98.0) fL MCH (27.0-33.0) pg MCHC (31.0-35.0) g/dl RDW (11.0-16.0) % Plt Count (160-400) X10*3/uL MPV (9.4-12.3) fL Immature Gran % (Auto) (0.0-0.4) % Neut % (Auto) (45-73) % Lymph % (Auto) (20-40) % Lipscomb % (Auto) (2-11) % Eos % (Auto) (0-4) % Baso % (Auto) (0-2) % Lymph # (Auto) (1.2-4.9) X10*3/uL Lipscomb # (Auto) (0.1-1.2) X10*3/uL Eos # (Auto) (0.0-0.4) X10*3/uL Baso # (Auto) (0.0-0.2) X10*3/uL Abs Immat Gran (auto) (0.00-0.03) X10*3/uL Absolute Neuts (auto) (2.0-8.3) x10*3/uL Absolute Nucleated RBC (0.0-0.012) X10*3/uL Nucleated RBC % (auto) (0.0-0.2) /100WBC ESR (0-20) MM/HR Sodium (135-145) mmol/L Potassium (3.3-5.1) mmol/L Chloride (96-108) mmol/L Carbon Dioxide (22-29) mmol/L Anion Gap (12-20) BUN (9-16) mg/dL Creatinine (0.5-1.4) mg/dL Estim Creat Clear Calc Estimated GFR Random Glucose (60-115) mg/dL Calcium (8.4-10.2) mg/dL Total Bilirubin (0.0-1.0) mg/dL AST (5-31) U/L ALT (0-31) U/L Alkaline Phosphatase (39-117) U/L Troponin I High Sens 3.5 (<3.5-17.0) ng/L C-Reactive Protein (< or = 0.50) mg/dL Total Protein (6.5-8.0) g/dL Albumin (3.5-5.0) g/dL <ANITA Colin - Last Filed: 07/02/22 20:45> Critical Care Time Critical Care Time Critical Care Time: No <ANITA Colin - Last Filed: 07/02/22 20:45> Discharge Plan Discharge Clinical Impression: Cervical radiculopathy, Headache, MICKEY (acute kidney injury) <ANITA Zimmerman Last Filed: 07/02/22 13:48> Patient Disposition: Home, Self-Care <ANITA Zimmerman - Last Filed: 07/02/22 13:48> Instructions: Acute Headache (ED), Cervical Radiculopathy (ED) <ANITA Zimmerman Last Filed: 07/02/22 13:48> Additional Instructions: Take your medications as prescribed. If you were prescribed antibiotics today, it is important that you take your medication to their entirety, do not skip any doses, do not finish them early. Follow-up with your primary care provider this week. Return to the emergency department with new or worsening symptoms. Such as fevers, chills, chest pain, shortness of breath, nausea, vomiting, dizziness, headache, vision changes, lethargy In case of emergency call 911 Remember, I prescribed you Reglan and Benadryl for headaches, please take these medications together. Please do not take Reglan alone as it can cause involuntary muscle spasms. Prednisone was also sent to her pharmacy, since your diabetic, it can increase her sugars please closely monitor your sugars if they are too high you can discontinue prednisone or adjust insulin. Morphine a narcotic has been sent to your pharmacy please take this as prescribed. Do not take more than the prescribed dose. Narcotic medications can cause addiction. Please do not mix them with alcohol. Do not take them while driving or operating machinery. Do not take them with any other narcotics. Do not share them with friends or family. They can cause constipation. Take them only for severe pain. <ANITA Zimmerman - Last Filed: 07/02/22 13:48> Prescriptions: New metoclopramide HCl [Reglan] 10 mg tablet 10 mg PO Q6H PRN (Reason: nausea and vomiting) Qty: 20 0RF diphenhydramine HCl [Benadryl] 25 mg capsule 25 mg PO TID PRN (Reason: headache) Qty: 20 0RF lidocaine 5 % adhesive patch,medicated 1 patch topical DAILY PRN (Reason: pain) Qty: 15 0RF Rx Instructions: leave on most painful area for up to 12 hrs prednisone 20 mg tablet 20 mg PO DAILY 5 Days Qty: 5 0RF morphine 15 mg tablet 15 mg PO Q6H PRN (Reason: pain) 5 Days Qty: 10 0RF Rx Instructions: Partial Fill upon patient request. No Action nitrofurantoin macrocrystal 50 mg capsule 50 mg PO BEDTIME 10 Days Qty: 10 1RF Rx Instructions: must administer with a meal/food Gemtesa 75 mg tablet 75 mg PO DAILY 90 Days Qty: 90 1RF ondansetron 4 mg tablet,disintegrating 4 mg PO Q6H PRN (Reason: nausea and vomiting) Qty: 14 0RF albuterol sulfate 90 mcg/actuation HFA aerosol inhaler 1 inh inhalation QID PRN (Reason: shortness of breath or wheezing) Qty: 8.5 0RF (DME) lancets 30 gauge misc See Rx Instructions .ROUTE TID Qty: 100 Rx Instructions: As directed (DME) pen needle, diabetic 32 gauge x 5/32 needle See Rx Instructions .ROUTE .MEDSUPPLY Qty: 50 Rx Instructions: As directed cholecalciferol (vitamin D3) 50 mcg (2,000 unit) capsule 50 mcg PO BEDTIME diclofenac sodium 1 % gel topical loratadine 10 mg tablet 10 mg PO DAILY fluticasone propionate 50 mcg/actuation spray,suspension 0 mcg intranasal BID losartan 100 mg tablet 100 mg PO DAILY hydrochlorothiazide 25 mg tablet 25 mg PO QAM alcohol swabs Pads, Medicated topical TID montelukast 10 mg tablet 10 mg PO DAILY omeprazole 20 mg capsule,delayed release(DR/EC) 20 mg PO DAILY temazepam 30 mg capsule 30 mg PO BEDTIME PRN amlodipine 5 mg tablet 5 mg PO DAILY (DME) FreeStyle Lite Strips Strip See Rx Instructions Not Applicable TID Qty: 10 Rx Instructions: As directed metoprolol succinate 100 mg tablet extended release 24 hr 100 mg PO DAILY atorvastatin 10 mg tablet 10 mg PO DAILY citalopram 40 mg tablet 40 mg PO DAILY Eliquis 5 mg tablet 5 mg PO BID oxycodone 30 mg tablet 30 mg PO TID PRN triamcinolone acetonide 0.025 % cream topical tizanidine 4 mg tablet 4 mg PO TID PRN benzonatate 100 mg capsule 100 mg PO TID metronidazole 0.75 % gel 1 appful vaginal BEDTIME Lantus Solostar U-100 Insulin 100 unit/mL (3 mL) insulin pen subcut BEDTIME insulin lispro 100 unit/mL insulin pen 30 unit subcut TID gemfibrozil 600 mg tablet 600 mg PO BID Trulicity 4.5 mg/0.5 mL pen injector subcut Jardiance 10 mg tablet 10 mg PO QAM Azo Bladder Control 300 mg capsule 1 cap PO DAILY 30 Days Qty: 30 3RF (DME) Poise Pads Pad See Rx Instructions .ROUTE .MEDSUPPLY Qty: 90 0RF Rx Instructions: As directed <ANITA Zimmerman - Last Filed: 07/02/22 13:48> Referrals: Bang Hilario MD [Primary Care Provider] - 2 days <ANITA Zimmerman - Last Filed: 07/02/22 13:48> Interventions: ED Discharge Assessment Last Done: 07/02/22 20:26 <ANITA Zimmerman - Last Filed: 07/02/22 13:48> Discharge Date/Time: 07/02/22 20:27 <ANITA Zimmerman - Last Filed: 07/02/22 13:48>
[2022-07-02 17:18] VITALS: BP 152/82; PULSE 94; RESP 20; TEMP 36.9; O2SAT 98
[2022-07-02] MEDS: diphenhydrAMINE HCL 25 MG CAPSULE PO (17:51)
[2022-07-02] MEDS: Metoclopramide HCl 10 MG TABLET PO (17:51)
--- NOTE | 2022-07-02 17:59 | ECG_ITS ---
Test Reason : SHOULDER PAIN Blood Pressure : / mmHG Vent. Rate : 086 BPM Atrial Rate : 087 BPM P-R Int : 146 ms QRS Dur : 090 ms QT Int : 356 ms P-R-T Axes : 032 026 000 degrees QTc Int : 426 ms Normal sinus rhythm Normal ECG When compared with ECG of 06-JUN-2022 13:01, No significant change was found Referred By: Ingrid Reyes Electronically Signed By:ARABELLA PRASAD
[2022-07-02] MEDS: diazePAM 2 MG TABLET PO (18:16)
[2022-07-02] MEDS: Morphine Sulfate Immed Release 15 MG TABLET PO (18:16)
[2022-07-02] MEDS: Lidocaine 4 % Patch ADH..PATCH 1 PATCH TRANSDERMA (18:16)
[2022-07-02 19:38] LABS: MANUAL DIFF FLAG NO
[2022-07-02 19:41] LABS: Basophils Absolute Auto 0.1 X10*3/uL (0.0-0.2); Basophils Percent Auto 0.5 % (0-2); Eosinophils Absolute Auto 0.2 X10*3/uL (0.0-0.4); Eosinophils Percent Auto 2.3 % (0-4); Hematocrit 43.8 % (37.0-47.0); Imm Gran Abs Auto 0.04 X10*3/uL (0.00-0.03); Imm Gran Pct Auto 0.4 % (0.0-0.4); Lymphocytes Absolute Auto 3.8 X10*3/uL (1.2-4.9); Lymphocytes Percent Auto 35.8 % (20-40); Mean Corpuscular HGB Conc 34.2 g/dl (31.0-35.0); Mean Corpuscular Hemoglobin 30.5 pg (27.0-33.0); Mean Corpuscular Volume 89.2 fL (80.0-98.0); Mean Platelet Volume 8.9 fL (9.4-12.3); Monocytes Absolute Auto 0.8 X10*3/uL (0.1-1.2); Monocytes Percent Auto 7.9 % (2-11); Neutrophils Absolute Auto 5.6 x10*3/uL (2.0-8.3); Neutrophils Percent Auto 53.1 % (45-73); Platelet Count 364 X10*3/uL (160-400); Red Blood Count 4.91 X10*6/uL (4.20-5.50); Red Cell Distribution Width 13.5 % (11.0-16.0); White Blood Count 10.5 X10*3/uL (4.8-10.8)
[2022-07-02 19:58] LABS: Alanine Aminotransferase 21 U/L (0-31); Albumin Level 4.2 g/dL (3.5-5.0); Alkaline Phosphatase 114 U/L (39-117); Anion Gap 15 (12-20); Aspartate Amino Transferase 16 U/L (5-31); Bilirubin Total 0.9 mg/dL (0.0-1.0); Blood Urea Nitrogen 27 mg/dL (9-16); C Reactive Protein 1.42 mg/dL (< or = 0.50); Calcium 9.6 mg/dL (8.4-10.2); Carbon Dioxide 28 mmol/L (22-29); Chloride 99 mmol/L (96-108); Creatinine Clr Calc Pharmacy 39.2; Estimated Glomerular Filt Rate 33; Glucose Random 139 mg/dL (60-115); Potassium 3.5 mmol/L (3.3-5.1); Sodium 138 mmol/L (135-145); Total Protein 7.2 g/dL (6.5-8.0)
[2022-07-02 20:05] LABS: Troponin-I High Sensitivity 3.5 ng/L (<3.5-17.0)
[2022-07-02 20:24] LABS: Erythrocyte Sedimentation Rate 34 MM/HR (0-20)
--- NOTE | 2022-07-02 20:25 | PC.NURSE ---
Pt refusing IVF, PA aware. Pt requesting DC paperwork.
== END 2022-07-02 20:27 | disposition home or self-care (01) ==
PROVIDERS: Physician Assistant; Emergency Provider Emergency Medicine Emergency Medical Services; PCP Hospitalist
DX: M54.12 Radiculopathy, cervical region (principal); R51.9 Headache, unspecified; R07.89 Other chest pain; I10 Essential (primary) hypertension; E11.9 Type 2 diabetes mellitus without complications; M25.512 Pain in left shoulder; M25.511 Pain in right shoulder; Z79.899 Other long term (current) drug therapy
CPT/HCPCS: 36415; 70450; 72125; 73030; 80053; 84484; 85025; 85652; 86140; 93005; 99283; 99284

== ENCOUNTER 2022-10-29 09:37 | Emergency (ER) | payer OTHER, SELFPAY ==
--- NOTE | ~2022-10-29 | CT_ITS ---
EXAMINATION: CT ABDOMEN AND PELVIS WITHOUT CONTRAST CLINICAL INFORMATION: Abdominal pain. Nausea and vomiting. COMPARISON: 06/06/2022 TECHNIQUE: Multidetector volumetric imaging was performed from the superior aspect of the liver through the pubic symphysis. Sagittal and coronal reformatted images were obtained on the technologist's workstation. This CT examination was performed using dose optimization techniques as appropriate, variously including the following: *Automated exposure control *Adjustment of mA and/or kV according to patient size (this includes techniques or standardized protocols for targeted exams where dose is matched to indication/reason for exam; i.e. extremities or head) *Use of iterative reconstruction technique DLP: 833 mGy-cm FINDINGS: LUNG BASES: No pleural or pericardial effusion. LIVER, GALLBLADDER, AND BILIARY TREE: The noncontrast liver is normal in size and contour. No biliary ductal dilatation is present. The gallbladder is unremarkable with no evidence of radiopaque gallstones, gallbladder wall thickening, or obvious pericholecystic inflammatory changes. PANCREAS: Unremarkable. SPLEEN: Unremarkable. ADRENAL GLANDS: Unremarkable. KIDNEYS AND URETERS: The kidneys are symmetric in size. 8 mm upper pole right renal cyst. No hydronephrosis, hydroureter, or calculi seen. No perinephric stranding. BLADDER: Unremarkable. GASTROINTESTINAL TRACT: Small and large bowel loops are of normal caliber. No small bowel obstruction. Appendix is within normal limits. Moderate retained stool in the colon. ABDOMINAL WALL: No significant hernia is appreciated. LYMPH NODES: No bulky abdominal or pelvic lymphadenopathy. VASCULAR: Normal caliber abdominal aorta. PELVIC VISCERA: The uterus and adnexa are unremarkable. OSSEOUS STRUCTURES: No destructive bone lesions. CT/CT abdomen pelvis wo IV con IMPRESSION: No acute abnormality in the abdomen or pelvis.
[2022-10-29 09:38] VITALS: BP 147/61; PULSE 85; RESP 20; TEMP 36.9; O2SAT 100; BMI 39.1
[2022-10-29 09:57] LABS: MANUAL DIFF FLAG NO
[2022-10-29 10:00] LABS: Basophils Percent Auto 0.3 % (0-2); Eosinophils Absolute Auto 0.3 X10*3/uL (0.0-0.4); Eosinophils Percent Auto 2.7 % (0-4); Hemoglobin 15.2 g/dl (12.0-16.0); Imm Gran Abs Auto 0.04 X10*3/uL (0.00-0.03); Imm Gran Pct Auto 0.4 % (0.0-0.4); Lymphocytes Absolute Auto 2.4 X10*3/uL (1.2-4.9); Mean Corpuscular Hemoglobin 30.7 pg (27.0-33.0); Mean Corpuscular Volume 92.9 fL (80.0-98.0); Mean Platelet Volume 8.7 fL (9.4-12.3); Monocytes Absolute Auto 0.6 X10*3/uL (0.1-1.2); Monocytes Percent Auto 6.7 % (2-11); Neutrophils Absolute Auto 6.2 x10*3/uL (2.0-8.3); Neutrophils Percent Auto 64.9 % (45-73); Platelet Count 277 X10*3/uL (160-400); Red Blood Count 4.95 X10*6/uL (4.20-5.50); Red Cell Distribution Width 12.9 % (11.0-16.0); White Blood Count 9.5 X10*3/uL (4.8-10.8)
--- NOTE | 2022-10-29 10:00 | PC.NURSE ---
24g iv inserted in L index finger. meds given, fluids started as ordered.
--- NOTE | 2022-10-29 10:17 | ED_ITS ---
HPI - General Adult General Chief complaint: Abdominal Pain Stated complaint: nausea Time Seen by Provider: 10/29/22 10:07 Source: patient Mode of arrival: ambulatory Limitations: no limitations History of Present Illness HPI narrative: 8-year-old female with diabetes, gastroparesis presents with nausea vomiting. Symptoms started over the last 3 days. They have been progressively getting worse. Vomitus is green in color. Patient has moderate pain in the abdomen particularly in the upper abdominal area. The pain is intermittent. There is no clear relieving or exacerbating features. The pain does not radiate. There is no diarrhea but she does have constipation. She denies any fevers or chills. No urinary complaints. Patient is now afraid to eat or drink any food or fluids. Related Data Home Medications Medication Instructions Recorded Confirmed alcohol swabs pad topical TID 10/16/20 amlodipine 5 mg tablet 5 mg PO DAILY 10/16/20 apixaban 5 mg tablet 5 mg PO BID 10/16/20 atorvastatin 10 mg tablet 10 mg PO DAILY 10/16/20 blood sugar diagnostic #10 ea 10/16/20 cholecalciferol (vitamin D3) 50 50 mcg PO BEDTIME 10/16/20 mcg (2,000 unit) capsule citalopram 40 mg tablet 40 mg PO DAILY 10/16/20 diclofenac sodium 1 % topical gel g topical 10/16/20 fluticasone propionate 50 0 mcg intranasal BID 10/16/20 mcg/actuation nasal spray,suspension hydrochlorothiazide 25 mg tablet 25 mg PO QAM 10/16/20 lancets 30 gauge #100 ea 10/16/20 loratadine 10 mg tablet 10 mg PO DAILY 10/16/20 losartan 100 mg tablet 100 mg PO DAILY 10/16/20 metoprolol succinate 100 mg 100 mg PO DAILY 10/16/20 tablet,extended release 24 hr montelukast 10 mg tablet 10 mg PO DAILY 10/16/20 omeprazole 20 mg capsule,delayed 20 mg PO DAILY 10/16/20 release oxycodone 30 mg tablet 30 mg PO TID PRN 10/16/20 pen needle, diabetic 32 gauge x #50 ea 10/16/20 temazepam 30 mg capsule 30 mg PO BEDTIME PRN 10/16/20 triamcinolone acetonide 0.025 % appl topical 10/16/20 topical cream tizanidine 4 mg tablet 4 mg PO TID PRN 12/11/20 12/11/20 benzonatate 100 mg capsule 100 mg PO TID 08/14/21 gemfibrozil 600 mg tablet 600 mg PO BID 08/14/21 insulin glargine 100 unit/mL (3 unit subcut BEDTIME 08/14/21 mL) subcutaneous pen (Lantus Solostar U-100 Insulin) insulin lispro 100 unit/mL 30 unit subcut TID 08/14/21 subcutaneous pen metronidazole 0.75 % (37.5 mg/5 1 appful vaginal BEDTIME 08/14/21 gram) vaginal gel dulaglutide 4.5 mg/0.5 mL mg subcut 12/15/21 subcutaneous pen injector (Trulicity) empagliflozin 10 mg tablet 10 mg PO QAM 12/15/21 (Jardiance) Previous Rx's Medication Instructions Recorded nitrofurantoin macrocrystal 50 mg 50 mg PO BEDTIME 10 days #10 caps 12/31/20 capsule incontinence pad, liner, disp #90 ea 11/13/21 (Poise Pads) ondansetron 4 mg disintegrating 4 mg PO Q6H PRN nausea and 01/22/22 tablet vomiting #14 tabs albuterol sulfate 90 mcg/actuation 1 inh inhalation QID PRN shortness 06/06/22 aerosol inhaler of breath or wheezing #8.5 grams pumpkin seed extract-soy germ 300 1 cap PO DAILY 30 days #30 caps 06/22/22 mg capsule (Azo Bladder Control) diphenhydramine HCl 25 mg capsule 25 mg PO TID PRN headache #20 caps 07/02/22 (Benadryl) lidocaine 5 % topical patch 1 patch topical DAILY PRN pain #15 07/02/22 ea metoclopramide HCl 10 mg tablet 10 mg PO Q6H PRN nausea and 07/02/22 (Reglan) vomiting #20 tabs morphine 15 mg immediate release 15 mg PO Q6H PRN pain 5 days #10 07/02/22 tablet tabs prednisone 20 mg tablet 20 mg PO DAILY 5 days #5 tabs 07/02/22 vibegron 75 mg tablet (Gemtesa) 75 mg PO DAILY 90 days #90 tabs 07/07/22 metoclopramide HCl 10 mg tablet 10 mg PO Q6H PRN nausea and 10/29/22 (Reglan) vomiting #10 tabs ondansetron 4 mg disintegrating 4 mg PO Q8H PRN nausea and 10/29/22 tablet vomiting #10 tabs Allergies Allergy/AdvReac Type Severity Reaction Status Date / Time oxybutynin Allergy Severe Difficulty Verified 07/02/22 13:47 Swallowing tolterodine Allergy Severe Difficulty Verified 07/02/22 13:47 Swallowing acetaminophen [Percocet] Allergy Unknown hives Verified 07/02/22 13:47 aspirin Allergy Unknown anaphylaxis Verified 07/02/22 13:47 citalopram Allergy Unknown Unknown Verified 07/02/22 13:47 gabapentin Allergy Unknown hives Verified 07/02/22 13:47 hydrocodone [Vicodin] Allergy Unknown hives Verified 07/02/22 13:47 naproxen [Naprosyn] Allergy Unknown anaphylaxis Verified 07/02/22 13:47 oxycodone [Percocet] Allergy Unknown hives Verified 07/02/22 13:47 sertraline Allergy Unknown Unknown Verified 07/02/22 13:47 peanut Allergy Anaphylaxis Verified 06/22/22 16:01 solifenacin AdvReac phlegm Verified 06/22/22 16:01 Vicodin Allergy Unknown hives Uncoded 06/22/22 16:01 Review of Systems Review of Systems: CONSTITUTIONAL: Denies weight loss, fever and chills. HEENT: Denies changes in vision and hearing. RESPIRATORY: Denies SOB and cough. CV: Denies palpitations no CP. GI: See HPI : Denies dysuria and urinary frequency. MSK: Denies myalgia and joint pain. SKIN: Denies rash and pruritus. NEUROLOGICAL: Denies headache and syncope. PSYCHIATRIC: Denies recent changes in mood. Denies anxiety and depression. All other ROS are negative unless in HPI PMFSH Past Medical History Medical History Diabetes mellitus HTN (hypertension) Urinary incontinence Urinary incontinence UTI (urinary tract infection) Surgical History History of surgery Social History Social History Alcohol intake: never Patient Tobacco Use Status: Never used Tobacco Smoked in Last 30 Days: No Use of substances other than those prescribed or required for medical reasons: No Advance Directives: Yes Advance Directives Information Provided: Yes Advance Directives on File: No Physical Exam ED Vital Signs: Vital Signs - 24 hr 10/29/22 09:38 10/29/22 14:49 Temperature 98.5 F 98.1 F Pulse Rate 85 82 Respiratory Rate 20 14 Blood Pressure 147/61 H 113/60 Pulse Oximetry 100 97 Oxygen Delivery Method Room Air Room Air BMI result Body Mass Index 39.1 GEN: Well developed, no acute distress, alert, oriented HEENT: Normocephalic, atraumatic, normal external ears, nose appears normal, no oropharyngeal edema or exudates Eyes: Normal to appearance Neck: Supple, no lymphadenopathy Respiratory: Talks in complete sentences, no respiratory distress, clear to auscultation bilaterally Cardiovascular: Regular rate and rhythm, no murmurs rubs or gallops Abdomen: Soft, epigastric and left upper quadrant tenderness, nondistended, no guarding, no rebound Back: No CVA tenderness Extremities: No clubbing cyanosis or edema Neurologic: No focal neurologic deficits, cranial nerves 2-12 intact, strength is 5/5 bilaterally Skin: No rash Course Course Course Narrative: 62-year-old female with history of diabetes and gastroparesis presents with nausea vomiting. She has been emergency department approximately 5 hours at this point. Her nausea has resolved. CT scan did not reveal any evidence of small-bowel obstruction. Lab work was unremarkable. She wished to be discharged at this time. Patient is stable. I will provide prescriptions for antiemetics. She can return for any worsening or concerning symptoms. Medications Administered Discontinued Medications Generic Name Dose Route Start Last Admin Trade Name Emily PRN Reason Stop Dose Admin Famotidine 20 mg 10/29/22 10:14 10/29/22 11:13 Famotidine/Pf 20 Mg/2 Ml Vial IVPUSH 10/29/22 10:15 20 mg ONCE ONE Administration Sodium Chloride 1,000 mls @ 999 mls/hr 10/29/22 10:15 10/29/22 12:19 Ns IV 10/29/22 11:15 Infused .Q1H1M LATASHA Infusion Ceftriaxone Sodium 1 gm/ 50 mls @ 100 mls/hr 10/29/22 12:53 10/29/22 15:08 Sodium Chloride IV 10/29/22 13:22 Infused ONCE ONE Infusion Metoclopramide HCl 10 mg 10/29/22 10:14 10/29/22 11:12 Metoclopramide Hcl 10 Mg/2 Ml Vial IVPUSH 10/29/22 10:15 10 mg ONCE ONE Administration Ondansetron HCl 4 mg 10/29/22 14:33 10/29/22 15:08 Ondansetron Hcl 4 Mg/2 Ml Vial IVPUSH 10/29/22 14:34 Not Given ONCE ONE Medical Decision Making Medical Decision Making [facility] Narrative: 8-year-old female presents with nausea vomiting. Examination reveals upper abdominal tenderness. Differential diagnosis includes gastroparesis, gastritis, peptic ulcer disease, small-bowel obstruction, ileus, outlet obstruction, gastroenteritis, enteritis, colitis, diverticulitis, doubt AAA or dissection. Doubt mesenteric ischemia. Will obtain a CT scan the abdomen pelvis. Will provide patient with symptomatic relief. Will provide her with IV fluids. Will check additional lab testing for other possible causes. Differential Diagnosis Differential Diagnoses: The differential diagnosis associated with the presentation includes (See above) Admission/Observation Consideration of admission/observation: Escalation of care including admission/observation considered Lab Data [facility] Lab Attestation statement: I reviewed the patient's lab results. 10/29/22 09:52 10/29/22 09:52 Labs: Lab Results 10/29/22 10/29/22 10/29/22 Range/Units 09:52 09:52 12:32 WBC 9.5 (4.8-10.8) X10*3/uL RBC 4.95 (4.20-5.50) X10*6/uL Hgb 15.2 (12.0-16.0) g/dl Hct 46.0 (37.0-47.0) % MCV 92.9 (80.0-98.0) fL MCH 30.7 (27.0-33.0) pg MCHC 33.0 (31.0-35.0) g/dl RDW 12.9 (11.0-16.0) % Plt Count 277 (160-400) X10*3/uL MPV 8.7 L (9.4-12.3) fL Immature Gran % (Auto) 0.4 (0.0-0.4) % Neut % (Auto) 64.9 (45-73) % Lymph % (Auto) 25.0 (20-40) % Lassen % (Auto) 6.7 (2-11) % Eos % (Auto) 2.7 (0-4) % Baso % (Auto) 0.3 (0-2) % Lymph # (Auto) 2.4 (1.2-4.9) X10*3/uL Lassen # (Auto) 0.6 (0.1-1.2) X10*3/uL Eos # (Auto) 0.3 (0.0-0.4) X10*3/uL Baso # (Auto) 0.0 (0.0-0.2) X10*3/uL Abs Immat Gran (auto) 0.04 H (0.00-0.03) X10*3/uL Absolute Neuts (auto) 6.2 (2.0-8.3) x10*3/uL Absolute Nucleated RBC 0.000 (0.0-0.012) X10*3/uL Nucleated RBC % (auto) 0.0 (0.0-0.2) /100WBC Sodium 138 (135-145) mmol/L Potassium 3.8 (3.3-5.1) mmol/L Chloride 97 (96-108) mmol/L Carbon Dioxide 31 H (22-29) mmol/L Anion Gap 14 (12-20) BUN 22 H (9-16) mg/dL Creatinine 1.25 (0.5-1.4) mg/dL Estim Creat Clear Calc 52.0 Estimated GFR 44 Random Glucose 150 H (60-115) mg/dL Calcium 10.3 H D (8.4-10.2) mg/dL Total Bilirubin 1.7 H (0.0-1.0) mg/dL Direct Bilirubin 0.4 (0.0-0.5) mg/dL AST 28 (5-31) U/L ALT 22 (0-31) U/L Alkaline Phosphatase 109 (39-117) U/L Total Protein 7.5 (6.5-8.0) g/dL Albumin 4.0 (3.5-5.0) g/dL Lipase 29 (8-78) U/L Urine Color Yellow Urine Appearance Clear Urine pH 6.5 (5.0-9.0) Ur Specific Stow 1.020 (1.005-1.025) Urine Protein Negative (Neg-Trace) mg/dL Urine Glucose (UA) >=1000 H (Negative) mg/dL Urine Ketones 15 (Negative) mg/dL Urine Blood Negative (Negative) Urine Nitrite Negative (Negative) Ur Leukocyte Esterase Moderate (2+) H (Negative) Urine RBC 0-2 (0-2) /HPF Urine WBC 21-50 H (0-5) /HPF Ur Squamous Epith Cells 3-5 (0-2) /HPF Urine Bacteria None Seen (None Seen) Hyaline Casts 0-2 (0-2) /LPF Independent Interpretation I performed an independent interpretation of an: CT Scan Radiology Impression Discussion of test interpretation with radiology: I have reviewed the radiologist's reading. (I have personally reviewed the medical images. I agree with the radiologist's interpretation) Radiologist Impression: CT/CT abdomen pelvis wo IV con IMPRESSION: No acute abnormality in the abdomen or pelvis. Dictated By: Angely Motley MD Signed By: <Electronically signed by Angely Motley MD in OV> 10/29/22 1147 Prescription Management I considered prescription management with: Pain Medication and Antibiotic Chronic Conditions Patient?s care impacted by: Diabetes Discharge Plan Discharge Clinical Impression: Gastroparesis, Abdominal pain Patient Disposition: Home, Self-Care Instructions: Diabetic Gastroparesis (DC), Abdominal Pain (ED) Prescriptions: New metoclopramide HCl [Reglan] 10 mg tablet 10 mg PO Q6H PRN (Reason: nausea and vomiting) Qty: 10 0RF ondansetron 4 mg tablet,disintegrating 4 mg PO Q8H PRN (Reason: nausea and vomiting) Qty: 10 0RF No Action nitrofurantoin macrocrystal 50 mg capsule 50 mg PO BEDTIME 10 Days Qty: 10 1RF Rx Instructions: must administer with a meal/food Gemtesa 75 mg tablet 75 mg PO DAILY 90 Days Qty: 90 1RF ondansetron 4 mg tablet,disintegrating 4 mg PO Q6H PRN (Reason: nausea and vomiting) Qty: 14 0RF albuterol sulfate 90 mcg/actuation HFA aerosol inhaler 1 inh inhalation QID PRN (Reason: shortness of breath or wheezing) Qty: 8.5 0RF metoclopramide HCl [Reglan] 10 mg tablet 10 mg PO Q6H PRN (Reason: nausea and vomiting) Qty: 20 0RF diphenhydramine HCl [Benadryl] 25 mg capsule 25 mg PO TID PRN (Reason: headache) Qty: 20 0RF lidocaine 5 % adhesive patch,medicated 1 patch topical DAILY PRN (Reason: pain) Qty: 15 0RF Rx Instructions: leave on most painful area for up to 12 hrs prednisone 20 mg tablet 20 mg PO DAILY 5 Days Qty: 5 0RF morphine 15 mg tablet 15 mg PO Q6H PRN (Reason: pain) 5 Days Qty: 10 0RF Rx Instructions: Partial Fill upon patient request. (DME) lancets 30 gauge misc See Rx Instructions .ROUTE TID Qty: 100 Rx Instructions: As directed (DME) pen needle, diabetic 32 gauge x / needle See Rx Instructions .ROUTE .MEDSUPPLY Qty: 50 Rx Instructions: As directed cholecalciferol (vitamin D3) 50 mcg (2,000 unit) capsule 50 mcg PO BEDTIME diclofenac sodium 1 % gel topical loratadine 10 mg tablet 10 mg PO DAILY fluticasone propionate 50 mcg/actuation spray,suspension 0 mcg intranasal BID losartan 100 mg tablet 100 mg PO DAILY hydrochlorothiazide 25 mg tablet 25 mg PO QAM alcohol swabs Pads, Medicated topical TID montelukast 10 mg tablet 10 mg PO DAILY omeprazole 20 mg capsule,delayed release(DR/EC) 20 mg PO DAILY temazepam 30 mg capsule 30 mg PO BEDTIME PRN amlodipine 5 mg tablet 5 mg PO DAILY (DME) FreeStyle Lite Strips Strip See Rx Instructions Not Applicable TID Qty: 10 Rx Instructions: As directed metoprolol succinate 100 mg tablet extended release 24 hr 100 mg PO DAILY atorvastatin 10 mg tablet 10 mg PO DAILY citalopram 40 mg tablet 40 mg PO DAILY Eliquis 5 mg tablet 5 mg PO BID oxycodone 30 mg tablet 30 mg PO TID PRN triamcinolone acetonide 0.025 % cream topical tizanidine 4 mg tablet 4 mg PO TID PRN benzonatate 100 mg capsule 100 mg PO TID metronidazole 0.75 % gel 1 appful vaginal BEDTIME Lantus Solostar U-100 Insulin 100 unit/mL (3 mL) insulin pen subcut BEDTIME insulin lispro 100 unit/mL insulin pen 30 unit subcut TID gemfibrozil 600 mg tablet 600 mg PO BID Trulicity 4.5 mg/0.5 mL pen injector subcut Jardiance 10 mg tablet 10 mg PO QAM Azo Bladder Control 300 mg capsule 1 cap PO DAILY 30 Days Qty: 30 3RF (DME) Poise Pads Pad See Rx Instructions .ROUTE .MEDSUPPLY Qty: 90 0RF Rx Instructions: As directed Referrals: Bang Hilario MD [Primary Care Provider] - 5 days
[2022-10-29 10:32] LABS: Alanine Aminotransferase 22 U/L (0-31); Alkaline Phosphatase 109 U/L (39-117); Anion Gap 14 (12-20); Aspartate Amino Transferase 28 U/L (5-31); Bilirubin Direct 0.4 mg/dL (0.0-0.5); Bilirubin Total 1.7 mg/dL (0.0-1.0); Blood Urea Nitrogen 22 mg/dL (9-16); Calcium 10.3 mg/dL (8.4-10.2); Carbon Dioxide 31 mmol/L (22-29); Chloride 97 mmol/L (96-108); Estimated Glomerular Filt Rate 44; Glucose Random 150 mg/dL (60-115); Lipase 29 U/L (8-78); Potassium 3.8 mmol/L (3.3-5.1); Sodium 138 mmol/L (135-145); Total Protein 7.5 g/dL (6.5-8.0)
[2022-10-29] MEDS: 0.9 % Sodium Chloride 1,000 ML 999 ML IV (11:08)
[2022-10-29] MEDS: Metoclopramide HCl 10 MG/2 ML VIAL IVPUSH (11:12)
[2022-10-29] MEDS: Famotidine/PF 20 MG/2 ML VIAL IVPUSH (11:13)
[2022-10-29 12:43] LABS: Appearance Urine Clear; Color Urine Yellow; Glucose Urine UA >=1000 mg/dL (Negative); Leukocyte Esterase Urine Moderate (2+) (Negative); Nitrite Urine Negative (Negative); PH 6.5 (5.0-9.0); UMIC TRIGGER UACC YES; Urine Blood Negative (Negative); Urine Ketones 15 mg/dL (Negative); Urine Protein Negative (Neg-Trace)
[2022-10-29 12:45] LABS: Bacteria Urine None Seen (None Seen); Hyaline Casts Urine 0-2 /LPF (0-2); RBC Urine 0-2 /HPF (0-2); UACC Culture Trigger YES; WBC Urine 21-50 /HPF (0-5)
[2022-10-29] MEDS: cefTRIAXone sodium 1 GM in 0.9 % Sodium Chloride 50 ML IV (13:32)
[2022-10-29 14:49] VITALS: BP 113/60; PULSE 82; RESP 14; TEMP 36.7; O2SAT 97
== END 2022-10-29 15:30 | disposition home or self-care (01) ==
PROVIDERS: Emergency Provider Emergency Medicine; PCP Hospitalist
DX: K31.84 Gastroparesis (principal); R10.9 Unspecified abdominal pain; Z79.899 Other long term (current) drug therapy
CPT/HCPCS: 36415; 74176; 80053; 81001; 82248; 83690; 85025; 87086; 96361; 96365; 96375; 99284; J0696; J2765

== ENCOUNTER 2023-01-13 12:01 | Outpatient (AMB) | payer OTHER, SELFPAY ==
--- NOTE | 2023-01-13 13:38 | A.OFFVIS_ITS ---
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 Required: No Accompanied by: Self / Same As Patient Allergies oxybutynin Allergy (Severe, Verified 01/13/23 21:43) Difficulty Swallowing tolterodine Allergy (Severe, Verified 01/13/23 21:43) Difficulty Swallowing acetaminophen [Percocet] Allergy (Unknown, Verified 01/13/23 21:43) hives aspirin Allergy (Unknown, Verified 01/13/23 21:43) anaphylaxis citalopram Allergy (Unknown, Verified 01/13/23 21:43) Unknown gabapentin Allergy (Unknown, Verified 01/13/23 21:43) hives hydrocodone [Vicodin] Allergy (Unknown, Verified 01/13/23 21:43) hives naproxen [Naprosyn] Allergy (Unknown, Verified 01/13/23 21:43) anaphylaxis oxycodone [Percocet] Allergy (Unknown, Verified 01/13/23 21:43) hives sertraline Allergy (Unknown, Verified 01/13/23 21:43) Unknown peanut Allergy (Verified 01/13/23 21:43) Anaphylaxis solifenacin Adverse Reaction (Verified 01/13/23 21:43) phlegm Vicodin Allergy (Unknown, Uncoded 01/13/23 21:43) hives Medication List - Last Reconciled 01/13/23 by DORIAN Holt albuterol sulfate 90 mcg/actuation 1 inh inhalation QID PRN alcohol swabs pad topical TID amlodipine 5 mg PO DAILY apixaban 5 mg PO BID atorvastatin 10 mg PO DAILY benzonatate 100 mg PO TID blood sugar diagnostic As directed cholecalciferol (vitamin D3) 50 mcg PO BEDTIME citalopram 40 mg PO DAILY diclofenac sodium 1% grams topical diphenhydramine HCl (Benadryl) 25 mg PO TID PRN dulaglutide (Trulicity) mg subcut empagliflozin (Jardiance) 10 mg PO QAM ezetimibe 10 mg PO DAILY fluocinonide 0.05% appl topical DAILY fluticasone propionate 50 mcg/actuation 0 mcg intranasal BID hydrochlorothiazide 25 mg PO QAM hydroxyzine HCl 25 mg PO DAILY incontinence pad, liner, disp (Poise Pads) As directed insulin glargine (Lantus Solostar U-100 Insulin) units subcut BEDTIME insulin lispro 30 units subcut TID lancets As directed lidocaine 5% 1 patch topical DAILY PRN loratadine 10 mg PO DAILY lorazepam 1 mg PO BID losartan 100 mg PO DAILY metformin 850 mg PO BID metoclopramide HCl (Reglan) 10 mg PO Q6H PRN metoclopramide HCl (Reglan) 10 mg PO Q6H PRN metoprolol succinate ER 100 mg PO DAILY metronidazole 0.75%(37.5mg/5gram) 1 appful vaginal BEDTIME montelukast 10 mg PO DAILY nitrofurantoin macrocrystal 50 mg PO BEDTIME 10 days nystatin 1 appl topical TID 30 days omeprazole 20 mg PO DAILY ondansetron 4 mg PO Q8H PRN oxycodone 30 mg PO TID PRN pen needle, diabetic As directed temazepam 30 mg PO BEDTIME PRN tizanidine 4 mg PO TID PRN triamcinolone acetonide 0.025% appl topical vibegron (Gemtesa) 75 mg PO DAILY 90 days HPI HPI Comments History of Present Illness Details Maribell is a pleasant 62-year-old female patient of Dr. Hilario. She has a past medical history of urinary incontinence, hypertension, diabetes, urinary tract infections, gastroparesis, constipation, chronic back pain, left leg below the knee amputation, hypertension, and history of a PE currently on Eliquis. She presents to the office today for follow-up of her lower urinary tract symptoms and history of recurrent urinary tract infections. In discussion with the patient today she reports to be doing and feeling well. She discusses her recent vacation to [facility], and [place]. She reports to be doing well on 75 mg of Gemtesa for lower urinary tract symptoms. She denies any urinary tract like infection symptoms and or to have had any recent UTIs. She discusses losing approximately 80 lb over the last year. When asked she denies any bothersome urinary issues or concerns at this time. However, she discusses issues with her gastroparesis, and constipation. She reports following up with Gastroenterology through [facility] however does not feel any improvement. Discussed at length affects of constipation and bowel issues in correlation with bladder issues. Patient with previous allergies to oxybutynin, tolterodine, and VESIcare. When asked she denies any urological issues or concerns at this time. When asked she denies urinary frequency, urinary urgency, dysuria, hematuria, fever, flank pain, and or chills. In office urinalysis results reviewed with the patient today. PVR 0 mL. PFSH Medical History Urinary incontinence HTN (hypertension) Diabetes mellitus Urinary incontinence UTI (urinary tract infection) Surgical History History of surgery Social History Alcohol intake: never Patient Tobacco Use Status: Never used Tobacco Review of Systems Const Reports no additional complaints Eyes Reports no additional complaints ENT Reports no additional complaints Card Reports no additional complaints Resp Reports no additional complaints GI Reports no additional complaints Reports as per HPI Musc Reports no additional complaints Neuro Reports no additional complaints Endo Reports no additional complaints Rip/Lymph Reports no additional complaints Aller/Immun Reports no additional complaints Physical Exam Const General: cooperative, comfortable, no acute distress, well developed, alert and awake Nutritional Appearance: overweight Orientation/consciousness: patient oriented x3 Limitations: other limitations (patient with left lower limb prosthetic ) HEENT Head: Yes normal to inspection, Yes normocephalic and Yes atraumatic Ears: hearing grossly normal bilaterally Eyes General: appearance normal, both eyes and all related structures Neck Neck: Yes normal visual inspection and Yes trachea midline Chest Chest palpation & inspection: normal inspection of the chest Resp Effort & Inspection: normal respiratory effort and able to speak in complete sentences Cardio Rate: regular rate GI Inspection: Yes normal to inspection General: Yes no CVA tenderness Back/Spine/Pelvis Back: no CVA tenderness Skin General skin exam: no rashes or lesions noted Neuro General: patient oriented x3 Extrem General: Yes normal to inspection Psych Appearance: grossly normal and well kempt Mental Status: mental status grossly normal Speech and movement: Normal speech and movement present and Clear speech present Affect: normal affect Attitude: cooperative Thought process: Normal thought process present Thought content: Normal thought content present Insight: Fair insight present (Psych) Judgement: Fair judgement present (Psych) Office Procedures Post Void Residual Post Residual Void Post Void Residual (PVR): 0 87662-Lnth Void Residual by ultrasound Results AMB Urinalysis, Automated UA Leukoctes 15 Hiral/uL Last Edit by Osvaldo Monroy on 01/13/23 14:00 UA Nitrite Last Edit by Osvaldo Monroy on 01/13/23 14:00 UA Urobilinogen 0.2 mg/dL Last Edit by Brandyce Porfirio on 01/13/23 14:00 UA Protein 0 mg/dL Last Edit by [facility] [employer] Porfirio on 01/13/23 14:00 UA pH 6.0 Last Edit by [facility] Porfirio on 01/13/23 14:00 UA Blood 0 Iron/uL Last Edit by [employer] on 01/13/23 14:00 UA Specific [place] 1.015 Last Edit by [facility] Monroy on 01/13/23 14:00 UA Ketone Last Edit by [facility] [employer] Porfirio on 01/13/23 14:00 UA Bilirubin 0 mg/dL Last Edit by [employer] Porfirio on 01/13/23 14:00 UA Glucose 1000 mg/dL Last Edit by [facility] [employer] Porfir[facility] on 01/13/23 14:00 Results Reviewed Results Reviewed: Laboratory Last Values Urine pH (Auto) 6.0 01/13/23 13:59 Specific [place] (Auto) 1.015 01/13/23 13:59 Urine Protein (Auto) 0 mg/dL 01/13/23 13:59 Glucose (UA)(Auto) 1000 mg/dL 01/13/23 13:59 Urine Blood (Auto) 0 Iron/uL 01/13/23 13:59 Urine Bilirubin (Auto) 0 mg/dL 01/13/23 13:59 Urine Urobilinogen (Auto) 0.2 mg/dL 01/13/23 13:59 Leukocyte Esterase (Auto) 15 Hiral/uL 01/13/23 13:59 Assessment & Plan Assessment & Plan (1) Urinary incontinence: Code(s): R32 - Unspecified urinary incontinence (2) Pelvic floor dysfunction in female: Code(s): M62.89 - Other specified disorders of muscle Plan In office urinalysis results reviewed with the patient today; as noted above PVR 0 mL Continue Gemtesa as prescribed Discussed at length importance of managing diabetes as well as weight loss for improvement in urinary symptoms as well as overall health and well-being. Will refer to GI; patient reporting longstanding history of constipation and gastroparesis; would like referral Start Nystatin as prescribed to abdominal folds. Discussed pelvic floor exercises; information provided Will obtain retroperitoneal ultrasound for further assessment evaluation Discussed near future in office cystoscopy if symptoms worsen Follow-up in 6 months; or sooner with any issues, concerns, and or questions Orders: Orders AMB Urinalysis Automated 01/13/23 Z13.9 - Encounter for screening, unspecified AMB Post Void Residual by ultrasound 01/13/23 R32 - Unspecified urinary incontinence US retroperitoneal comp 01/13/23 M62.89 - Other specified disorders of muscle, R32 - Unspecified urinary incontinence Referrals Gastroenterology Referral K31.84 - Gastroparesis Medications: New nystatin to abdominal fold bilaterally 1 appl topical TID 30 grams 0RF 30 days Patient Instructions: The patient had an opportunity to ask questions regarding the treatment plan. All questions were answered. Physical exam, labs, and imaging were discussed and reviewed in detail. As well as risks, benefits, and discussion of treatment choices. No major barriers to understanding were identified. The patient expressed understanding and agreement with the above treatment plan. The patient was made aware they should contact our office by phone for worsening of their current condition, the appearance of new symptoms, or with any questions or concerns. Compliance is encouraged with any medications and follow up testing that is ordered. It is a privilege to be allowed the opportunity to participate in? your urological care.? Again, if you have any questions or concerns If you have any questions or concerns please do not hesitate to contact me. The office is [phone]. This note is constructed using voice recognition software. While every effort has been made to ensure accuracy guest relations receptionist errors may have been included. Yours sincerely, DORIAN Holt Coding Level of Care Code Est Pt Level 4 (27210) Diagnoses Urinary incontinence R32 Pelvic floor dysfunction in female M62.89 CPT Codes Post Residual Void - PVR CPT Code: 41385-Totr Void Residual by ultrasound ([id number])
== END 2023-01-13 14:46 | disposition home or self-care (01) ==
PROVIDERS: PCP Hospitalist; Visit Provider Nurse Practitioner Family
DX: R32 Unspecified urinary incontinence (principal); M62.89 Other specified disorders of muscle
CPT/HCPCS: 99214

== ENCOUNTER → 2023-01-13 12:01 | Outpatient (BNVA) | payer OTHER, SELFPAY | PROVIDERS: Visit Provider Nurse Practitioner Family | DX: M62.89 Other specified disorders of muscle (principal); R32 Unspecified urinary incontinence | CPT/HCPCS: 51798; 81003; 99212 ==

== ENCOUNTER 2023-02-15 13:11 | Outpatient (AMB) | payer OTHER, SELFPAY ==
--- NOTE | 2023-02-15 13:12 | MHC.OFFVIS ---
Intake Intake Visit Reasons: follow up/ supplies Intake Note: Patient presents for follow up OAB /supplies Urology Medication: Gemtesa Blood thinner: Apixaban Diesel Inspector Required: No Accompanied by: Self / Same As Patient Allergies oxybutynin Allergy (Severe, Verified 02/15/23 13:17) Difficulty Swallowing tolterodine Allergy (Severe, Verified 02/15/23 13:17) Difficulty Swallowing acetaminophen [Percocet] Allergy (Unknown, Verified 02/15/23 13:17) hives aspirin Allergy (Unknown, Verified 02/15/23 13:17) anaphylaxis citalopram Allergy (Unknown, Verified 02/15/23 13:17) Unknown gabapentin Allergy (Unknown, Verified 02/15/23 13:17) hives hydrocodone [Vicodin] Allergy (Unknown, Verified 02/15/23 13:17) hives naproxen [Naprosyn] Allergy (Unknown, Verified 02/15/23 13:17) anaphylaxis oxycodone [Percocet] Allergy (Unknown, Verified 02/15/23 13:17) hives sertraline Allergy (Unknown, Verified 02/15/23 13:17) Unknown peanut Allergy (Verified 02/15/23 13:17) Anaphylaxis solifenacin Adverse Reaction (Verified 02/15/23 13:17) phlegm Vicodin Allergy (Unknown, Uncoded 02/15/23 13:17) hives Medication List - Last Reconciled 02/15/23 by DORIAN Holt albuterol sulfate 90 mcg/actuation 1 inh inhalation QID PRN alcohol swabs pad topical TID amlodipine 5 mg PO DAILY apixaban 5 mg PO BID atorvastatin 10 mg PO DAILY benzonatate 100 mg PO TID blood sugar diagnostic As directed cholecalciferol (vitamin D3) 50 mcg PO BEDTIME citalopram 40 mg PO DAILY diclofenac sodium 1% grams topical diphenhydramine HCl (Benadryl) 25 mg PO TID PRN dulaglutide (Trulicity) mg subcut empagliflozin (Jardiance) 10 mg PO QAM ezetimibe 10 mg PO DAILY fluocinonide 0.05% appl topical DAILY fluticasone propionate 50 mcg/actuation 0 mcg intranasal BID hydrochlorothiazide 25 mg PO QAM hydroxyzine HCl 25 mg PO DAILY incontinence pad, liner, disp (Poise Pads) As directed insulin glargine (Lantus Solostar U-100 Insulin) units subcut BEDTIME insulin lispro 30 units subcut TID lancets As directed lidocaine 5% 1 patch topical DAILY PRN loratadine 10 mg PO DAILY lorazepam 1 mg PO BID losartan 100 mg PO DAILY metformin 850 mg PO BID metoclopramide HCl (Reglan) 10 mg PO Q6H PRN metoclopramide HCl (Reglan) 10 mg PO Q6H PRN metoprolol succinate ER 100 mg PO DAILY metronidazole 0.75%(37.5mg/5gram) 1 appful vaginal BEDTIME montelukast 10 mg PO DAILY nitrofurantoin macrocrystal 50 mg PO BEDTIME 10 days nystatin 1 appl topical TID 30 days omeprazole 20 mg PO DAILY ondansetron 4 mg PO Q8H PRN oxycodone 30 mg PO TID PRN pen needle, diabetic As directed temazepam 30 mg PO BEDTIME PRN tizanidine 4 mg PO TID PRN triamcinolone acetonide 0.025% appl topical vibegron (Gemtesa) 75 mg PO DAILY 90 days HPI HPI Comments History of Present Illness Details Maribell is a pleasant 62-year-old female patient of Dr. Hilario. She has a past medical history of urinary incontinence, hypertension, diabetes, urinary tract infections, gastroparesis, constipation, chronic back pain, left leg below the knee amputation, hypertension, and history of a PE currently on Eliquis. She is being follow-up on today for her lower urinary tract symptoms and history of recurrent urinary tract infections. Discussion with the patient today she reports to be doing and feeling well. She reports previously getting urological supplies/scripts for her incontinent pads, bed pads, and gloves through primary care. However, her new PCP would like her to follow-up with Urology regarding this matter. Patient reports urinary symptoms are much improved on 75 mg of Gemtesa compared to previously. She reports previously being incontinent at all times sensed and unsensed however feels Gemtesa helps lessen incontinent episodes. She denies any urinary tract like infection symptoms and or to have had any recent UTIs. She discusses losing approximately 80 lb over the last year. When asked she denies any bothersome urinary issues or concerns at this time. Patient with previous allergies to oxybutynin, tolterodine, and VESIcare. When asked she denies any urological issues or concerns at this time. When asked she denies dysuria, hematuria, fever, flank pain, and or chills. [facility] Medical History Urinary incontinence HTN (hypertension) Diabetes mellitus Urinary incontinence UTI (urinary tract infection) Surgical History History of surgery Social History Alcohol intake: never Patient Tobacco Use Status: Never used Tobacco Review of Systems Const Reports no additional complaints Eyes Reports no additional complaints ENT Reports no additional complaints Card Reports no additional complaints Resp Reports no additional complaints GI Reports no additional complaints Reports as per HPI Musc Reports no additional complaints Neuro Reports no additional complaints Endo Reports no additional complaints Rip/Lymph Reports no additional complaints Aller/Immun Reports no additional complaints Physical Exam Const General: cooperative Orientation/consciousness: patient oriented x3 Neuro General: patient oriented x3 Psych Speech and movement: Clear speech present Attitude: cooperative Insight: Fair insight present (Psych) Judgement: Fair judgement present (Psych) Assessment & Plan Assessment & Plan (1) Urinary incontinence: Code(s): R32 - Unspecified urinary incontinence (2) Pelvic floor dysfunction in female: Code(s): M62.89 - Other specified disorders of muscle Plan Continue Gemtesa as prescribed Discussed at length importance of managing diabetes as well as weight loss for improvement in urinary symptoms as well as overall health and well-being. Discussed pelvic floor exercises Discussed near future in office cystoscopy if symptoms worsen and or Urodynamics Will send scripts for incontinent pads, bed pads and gloves to [facility] Obtain retroperitoneal ultrasound prior to next appointment. Follow-up in 6 months; or sooner with any issues, concerns, and or questions Patient Instructions: The patient had an opportunity to ask questions regarding the treatment plan. All questions were answered. Physical exam, labs, and imaging were discussed and reviewed in detail. As well as risks, benefits, and discussion of treatment choices. No major barriers to understanding were identified. The patient expressed understanding and agreement with the above treatment plan. The patient was made aware they should contact our office by phone for worsening of their current condition, the appearance of new symptoms, or with any questions or concerns. Compliance is encouraged with any medications and follow up testing that is ordered. It is a privilege to be allowed the opportunity to participate in? your urological care.? Again, if you have any questions or concerns If you have any questions or concerns please do not hesitate to contact me. The office is [phone]. This note is constructed using voice recognition software. While every effort has been made to ensure accuracy generator mechanic errors may have been included. Yours sincerely, CANDELARIO Holt Telehealth Telehealth Location of provider rendering services: practice address Location of patient: address on file Patient Identification confirmed using: Name, : Yes Telehealth method: voice only Patient verbally consented to treatment: Yes Patient verbally consented to billing insurance company: Yes Patient informed of any privacy concerns related to visit: Yes Coding Level of Care Code Tele Est Pt Level 3 (53939) Diagnoses Urinary incontinence R32 Pelvic floor dysfunction in female M62.89
== END 2023-02-15 16:15 | disposition home or self-care (01) ==
LOC: HO.HUSH 13:12
PROVIDERS: PCP Hospitalist; Visit Provider Nurse Practitioner Family
DX: R32 Unspecified urinary incontinence (principal); M62.89 Other specified disorders of muscle
CPT/HCPCS: 99213

== ENCOUNTER → 2023-02-15 13:11 | Outpatient (BNVA) | payer OTHER, SELFPAY | PROVIDERS: PCP Hospitalist; Visit Provider Nurse Practitioner Family ==

== ENCOUNTER 2023-03-15 09:57 | Outpatient (AMB) | payer OTHER, SELFPAY ==
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
[2023-03-15 10:20] VITALS: BP 146/65; PULSE 76; BMI 39.7
== END 2023-03-15 11:13 | disposition home or self-care (01) ==
PROVIDERS: PCP Hospitalist; Visit Provider Nurse Practitioner
DX: K21.9 Gastro-esophageal reflux disease without esophagitis (principal); Z88.9 Allergy status to unspecified drugs, medicaments and biological substances; Z91.018 Allergy to other foods; F11.90 Opioid use, unspecified, uncomplicated; Z98.890 Other specified postprocedural states
CPT/HCPCS: 99203

== ENCOUNTER → 2023-03-15 09:57 | Outpatient (BNVA) | payer OTHER, SELFPAY | PROVIDERS: PCP Hospitalist; Visit Provider Nurse Practitioner | DX: K31.84 Gastroparesis (principal); K21.9 Gastro-esophageal reflux disease without esophagitis; E11.9 Type 2 diabetes mellitus without complications; Z91.018 Allergy to other foods; Z98.890 Other specified postprocedural states; Z79.891 Long term (current) use of opiate analgesic | CPT/HCPCS: 99202 ==

== ENCOUNTER 2023-03-27 13:19 | Emergency (ER) | payer OTHER, SELFPAY ==
[2023-03-27 13:22] VITALS: BP 142/71; PULSE 83; RESP 18; TEMP 37; O2SAT 98; BMI 36.1
--- NOTE | 2023-03-27 13:31 | ED_ITS ---
HPI - General Adult General Chief complaint: Ear Problems Stated complaint: L ear pain Time Seen by Provider: 03/27/23 13:28 Source: patient Mode of arrival: ambulatory Limitations: no limitations History of Present Illness HPI narrative: 62 yold female with pmh of DVT, Anxiety, degenerative disc disease, DM, CKD presents to the for left ear pain since last Tuesday. Patient denies any ear discharge, fever, chills, redness/swelling in front or behind ear, neck pain, headache, nausea, vomitting, chest pain, shortness of breath, blurry vision, or any recent trauma. Patient deneis any loss of hearing. Patient was prescribed neomycin/hydrocortiosne drops by her PCP. Related Data Home Medications Medication Instructions Recorded Confirmed alcohol swabs pad topical TID 10/16/20 amlodipine 5 mg tablet 5 mg PO DAILY 10/16/20 apixaban 5 mg tablet 5 mg PO BID 10/16/20 atorvastatin 10 mg tablet 10 mg PO DAILY 10/16/20 blood sugar diagnostic #10 ea 10/16/20 cholecalciferol (vitamin D3) 50 50 mcg PO BEDTIME 10/16/20 mcg (2,000 unit) capsule citalopram 40 mg tablet 40 mg PO DAILY 10/16/20 diclofenac sodium 1 % topical gel g topical 10/16/20 fluticasone propionate 50 0 mcg intranasal BID 10/16/20 mcg/actuation nasal spray,suspension hydrochlorothiazide 25 mg tablet 25 mg PO QAM 10/16/20 lancets 30 gauge #100 ea 10/16/20 loratadine 10 mg tablet 10 mg PO DAILY 10/16/20 losartan 100 mg tablet 100 mg PO DAILY 10/16/20 metoprolol succinate 100 mg 100 mg PO DAILY 10/16/20 tablet,extended release 24 hr montelukast 10 mg tablet 10 mg PO DAILY 10/16/20 omeprazole 20 mg capsule,delayed 20 mg PO DAILY 10/16/20 release oxycodone 30 mg tablet 30 mg PO TID PRN 10/16/20 pen needle, diabetic 32 gauge x #50 ea 10/16/20 temazepam 30 mg capsule 30 mg PO BEDTIME PRN 10/16/20 triamcinolone acetonide 0.025 % appl topical 10/16/20 topical cream tizanidine 4 mg tablet 4 mg PO TID PRN 12/11/20 12/11/20 benzonatate 100 mg capsule 100 mg PO TID 08/14/21 insulin glargine 100 unit/mL (3 unit subcut BEDTIME 08/14/21 mL) subcutaneous pen (Lantus Solostar U-100 Insulin) insulin lispro 100 unit/mL 30 unit subcut TID 08/14/21 subcutaneous pen metronidazole 0.75 % (37.5 mg/5 1 appful vaginal BEDTIME 08/14/21 gram) vaginal gel dulaglutide 4.5 mg/0.5 mL mg subcut 12/15/21 subcutaneous pen injector (Trulicity) empagliflozin 10 mg tablet 10 mg PO QAM 12/15/21 (Jardiance) ezetimibe 10 mg tablet 10 mg PO DAILY 01/13/23 fluocinonide 0.05 % topical cream appl topical DAILY 01/13/23 hydroxyzine HCl 25 mg tablet 25 mg PO DAILY 01/13/23 lorazepam 1 mg tablet 1 mg PO BID 01/13/23 metformin 850 mg tablet 850 mg PO BID 01/13/23 Previous Rx's Medication Instructions Recorded nitrofurantoin macrocrystal 50 mg 50 mg PO BEDTIME 10 days #10 caps 12/31/20 capsule incontinence pad, liner, disp #90 ea 11/13/21 (Poise Pads) albuterol sulfate 90 mcg/actuation 1 inh inhalation QID PRN shortness 06/06/22 aerosol inhaler of breath or wheezing #8.5 grams diphenhydramine HCl 25 mg capsule 25 mg PO TID PRN headache #20 caps 07/02/22 (Benadryl) lidocaine 5 % topical patch 1 patch topical DAILY PRN pain #15 07/02/22 ea metoclopramide HCl 10 mg tablet 10 mg PO Q6H PRN nausea and 07/02/22 (Reglan) vomiting #20 tabs vibegron 75 mg tablet (Gemtesa) 75 mg PO DAILY 90 days #90 tabs 07/07/22 metoclopramide HCl 10 mg tablet 10 mg PO Q6H PRN nausea and 10/29/22 (Reglan) vomiting #10 tabs ondansetron 4 mg disintegrating 4 mg PO Q8H PRN nausea and 10/29/22 tablet vomiting #10 tabs nystatin 100,000 unit/gram topical 1 appl topical TID 30 days #30 01/13/23 powder grams disposable gloves (Nitrile Exam #50 ea 02/15/23 Gloves) incontinence pad, liner, disp #180 ea 02/15/23 underpads (Bed Underpads) #90 ea 02/15/23 amoxicillin 875 mg-potassium 1 tab PO Q12H 7 days #14 tabs 03/27/23 clavulanate 125 mg tablet Allergies Allergy/AdvReac Type Severity Reaction Status Date / Time octopus Allergy Severe Anaphylaxis Verified 03/27/23 13:22 oxybutynin Allergy Severe Difficulty Verified 03/27/23 13:22 Swallowing tolterodine Allergy Severe Difficulty Verified 03/27/23 13:22 Swallowing acetaminophen [Percocet] Allergy Unknown hives Verified 03/27/23 13:22 aspirin Allergy Unknown anaphylaxis Verified 03/27/23 13:22 citalopram Allergy Unknown Unknown Verified 03/27/23 13:22 empagliflozin Allergy Unknown Unknown Verified 03/27/23 13:22 [From Jardiance] Fish Containing Products Allergy Unknown Unknown Verified 03/27/23 13:22 gabapentin Allergy Unknown hives Verified 03/27/23 13:22 hydrocodone [Vicodin] Allergy Unknown hives Verified 03/27/23 13:22 naproxen [Naprosyn] Allergy Unknown anaphylaxis Verified 03/27/23 13:22 oxycodone [Percocet] Allergy Unknown hives Verified 03/27/23 13:22 pregabalin [From Lyrica] Allergy Unknown Unknown Verified 03/27/23 13:22 sertraline Allergy Unknown Unknown Verified 03/27/23 13:22 shellfish derived Allergy Unknown Unknown Verified 03/27/23 13:22 peanut Allergy Anaphylaxis Verified 03/27/23 13:22 solifenacin AdvReac phlegm Verified 03/27/23 13:22 Vicodin Allergy Unknown hives Uncoded 02/15/23 13:17 Review of Systems Review of Systems: Left ear pain Yes all other systems are reviewed and are negative PMFSH Past Medical History Medical History Amputated toe of right foot History of left below knee amputation Ganglion cyst Urinary incontinence HTN (hypertension) Diabetes mellitus Urinary incontinence UTI (urinary tract infection) Surgical History S/P carpal tunnel release History of surgical removal of ganglion cyst S/P rotator cuff repair History of surgery Social History Social History Alcohol intake: never Patient Tobacco Use Status: Never used Tobacco Advance Directives: No Advance Directives Information Provided: No Physical Exam ED Vital Signs: Vital Signs - 24 hr 03/27/23 13:22 Temperature 98.6 F Pulse Rate 83 Respiratory Rate 18 Blood Pressure 142/71 H Pulse Oximetry 98 Oxygen Delivery Method Room Air BMI result Body Mass Index 36.1 Const General: cooperative, healthy appearing, comfortable, no acute distress, well developed, alert, awake and Physically active Orientation/consciousness: oriented to person, oriented to place, oriented to time and patient oriented x3 HENMT Head: Yes normal to inspection, Yes No palpable skull fracture present, Yes normocephalic and Yes atraumatic Ears: hearing grossly normal bilaterally, external ears normal, mastoids normal, no periauricular adenopathy, Abnormal EAC present (left ear canal swelling. no discharge) edema and TM abnormal erythematous (left ear) Face and sinus: Yes normal facial exam and Yes sinuses nontender Throat: Yes posterior oropharynx normal, Yes tonsils normal and Yes uvula midline Eyes General: appearance normal, both eyes and all related structures Neck Neck: Yes normal visual inspection, Yes full ROM, Yes no lymphadenopathy, Yes no meningeal signs, Yes trachea midline, Yes supple, No anterior neck swelling and No tender Chest Chest palpation & inspection: normal inspection of the chest and normal palpation of entire chest wall Resp Effort & Inspection: normal respiratory effort and able to speak in complete sentences Auscultation: clear to auscultation bilaterally Cardio Jugular venous distension: no JVD Heart sounds: S1 normal heart sound present and S2 normal heart sound present GI Inspection: Yes normal to inspection and No abdominal wall ecchymosis Palpation (GI): Soft to palpation, not firm, nontender, no guarding and not rigid General: Yes no CVA tenderness Back/Spine/Pelvis Back: no CVA tenderness and No back tenderness Skin General skin exam: no rashes or lesions noted, elasticity normal and turgor normal Neuro General: oriented to person, oriented to place, oriented to time, patient oriented x3, gait normal, tone normal, moves all extremities, Normal light touch and pain sensation, no meningeal signs and no focal motor deficits Extrem General: Yes normal to inspection, Yes full ROM and Yes capillary refill normal Psych Appearance: grossly normal, well kempt and not disheveled Course Course Course Narrative: RME: 62 yold female presents to the ED for left ear pain. presently on neomycin and polymyxin and hydrcorotsone since . Left Ear Canal Swelling, but not much discharge. no need wick. TM erythema. Medical Decision Making Medical Decision Making [facility] Narrative: 62 yold female presents to the ED for left ear pain since last tuesday. Patient denies any recent trauma, headache, nausea, vomitting, ringing in the ear, dizziness, chest pain, shortness of breath, blurry vision, neck pain, swelling of face/neck/behind or in front of ears, photophobia, rash, or discharge from ear. Physical exam indicates otitis media/externa. Physical exam does not indicate mastoditits, parotitis, meningitis, carotid disection, TM perforation, vertigo, myocarial infarction, glaucoma, migraine, or barotrauma. Patient instructed to continue taking neomycin and will be discharged with augmentin. Differential Diagnosis Differential Diagnoses: The differential diagnosis associated with the presentation includes (mastoditits, parotitis, meningitis, carotid disection, TM perforation, vertigo, myocardial infarction, glaucoma, migraine, barotrouam) Admission/Observation Consideration of admission/observation: Escalation of care including admission/observation considered External Record Review External record reviewed: Other (Prior Visit) Prescription Management I considered prescription management with: Antibiotic Discharge Plan Discharge Clinical Impression: Otitis media, Otitis externa Patient Disposition: Home, Self-Care Instructions: Otitis Externa (ED), Ear Infection (ED) Additional Instructions: Continue taking your otic antibiotics. You will also be discharged with oral antibiotics for one week due tympanic membrane erythema. DUe to allergies only take tyelnol for pain. Return to the ED for worsening ear pain, decrease hearing, redness/swelling behind right ear, heaache, fever, chills, dizziness, headache, chest pain, shortness of breath, or any other concerning symptoms. Pleae follow up with PPC. Prescriptions: New amoxicillin-pot clavulanate 875-125 mg tablet 1 tab PO Q12H 7 Days Qty: 14 0RF No Action nitrofurantoin macrocrystal 50 mg capsule 50 mg PO BEDTIME 10 Days Qty: 10 1RF Rx Instructions: must administer with a meal/food Gemtesa 75 mg tablet 75 mg PO DAILY 90 Days Qty: 90 1RF (DME) disposable gloves [Nitrile Exam Gloves] Misc See Rx Instructions .Route Qty: 50 11RF Rx Instructions: As directed- pt requesting size XL (DME) incontinence pad, liner, disp Pad See Rx Instructions .ROUTE .MEDSUPPLY Qty: 180 11RF Rx Instructions: As directed- pt requesting 6 per day (DME) underpads [Bed Underpads] Pad See Rx Instructions .Route Qty: 90 11RF Rx Instructions: As directed- pt requesting 3 per night albuterol sulfate 90 mcg/actuation HFA aerosol inhaler 1 inh inhalation QID PRN (Reason: shortness of breath or wheezing) Qty: 8.5 0RF metoclopramide HCl [Reglan] 10 mg tablet 10 mg PO Q6H PRN (Reason: nausea and vomiting) Qty: 20 0RF diphenhydramine HCl [Benadryl] 25 mg capsule 25 mg PO TID PRN (Reason: headache) Qty: 20 0RF lidocaine 5 % adhesive patch,medicated 1 patch topical DAILY PRN (Reason: pain) Qty: 15 0RF Rx Instructions: leave on most painful area for up to 12 hrs metoclopramide HCl [Reglan] 10 mg tablet 10 mg PO Q6H PRN (Reason: nausea and vomiting) Qty: 10 0RF ondansetron 4 mg tablet,disintegrating 4 mg PO Q8H PRN (Reason: nausea and vomiting) Qty: 10 0RF (DME) lancets 30 gauge misc See Rx Instructions .ROUTE TID Qty: 100 Rx Instructions: As directed (DME) pen needle, diabetic 32 gauge x 5/32 needle See Rx Instructions .ROUTE .MEDSUPPLY Qty: 50 Rx Instructions: As directed cholecalciferol (vitamin D3) 50 mcg (2,000 unit) capsule 50 mcg PO BEDTIME diclofenac sodium 1 % gel topical loratadine 10 mg tablet 10 mg PO DAILY fluticasone propionate 50 mcg/actuation spray,suspension 0 mcg intranasal BID losartan 100 mg tablet 100 mg PO DAILY hydrochlorothiazide 25 mg tablet 25 mg PO QAM alcohol swabs Pads, Medicated topical TID montelukast 10 mg tablet 10 mg PO DAILY omeprazole 20 mg capsule,delayed release(DR/EC) 20 mg PO DAILY temazepam 30 mg capsule 30 mg PO BEDTIME PRN amlodipine 5 mg tablet 5 mg PO DAILY (DME) FreeStyle Lite Strips Strip See Rx Instructions Not Applicable TID Qty: 10 Rx Instructions: As directed metoprolol succinate 100 mg tablet extended release 24 hr 100 mg PO DAILY atorvastatin 10 mg tablet 10 mg PO DAILY citalopram 40 mg tablet 40 mg PO DAILY Eliquis 5 mg tablet 5 mg PO BID oxycodone 30 mg tablet 30 mg PO TID PRN triamcinolone acetonide 0.025 % cream topical tizanidine 4 mg tablet 4 mg PO TID PRN benzonatate 100 mg capsule 100 mg PO TID metronidazole 0.75 % gel 1 appful vaginal BEDTIME Lantus Solostar U-100 Insulin 100 unit/mL (3 mL) insulin pen subcut BEDTIME insulin lispro 100 unit/mL insulin pen 30 unit subcut TID Trulicity 4.5 mg/0.5 mL pen injector subcut Jardiance 10 mg tablet 10 mg PO QAM (DME) Poise Pads Pad See Rx Instructions .ROUTE .MEDSUPPLY Qty: 90 0RF Rx Instructions: As directed ezetimibe 10 mg tablet 10 mg PO DAILY fluocinonide 0.05 % cream topical DAILY lorazepam 1 mg tablet 1 mg PO BID hydroxyzine HCl 25 mg tablet 25 mg PO DAILY metformin 850 mg tablet 850 mg PO BID nystatin 100,000 unit/gram powder 1 appl topical TID 30 Days Qty: 30 0RF Rx Instructions: to abdominal fold bilaterally Stand Alone Forms: Work/School Release Interventions: ED Discharge Assessment Last Done: 03/27/23 13:40 Discharge Date/Time: 03/27/23 13:52 Print Language: Syriac
== END 2023-03-27 13:52 | disposition home or self-care (01) ==
PROVIDERS: Emergency Provider Emergency Medicine; PCP Hospitalist
DX: H92.02 Otalgia, left ear (principal); H66.93 Otitis media, unspecified, bilateral; H60.93 Unspecified otitis externa, bilateral
CPT/HCPCS: 99282

== ENCOUNTER 2023-04-01 09:52 | Emergency (ER) | payer OTHER, SELFPAY ==
--- NOTE | ~2023-04-01 | CT_ITS ---
EXAMINATION: CT SOFT TISSUE NECK WITH CONTRAST CLINICAL INFORMATION: Left-sided neck pain and swelling. COMPARISON: Cervical spine CT scan 07/02/2022. TECHNIQUE: Following the intravenous administration of 60 mL of Omnipaque 350 intravenous contrast, helical imaging was performed in the axial plane with generation of coronal and sagittal reformatted images. This CT examination was performed using dose optimization techniques as appropriate, variously including the following: *Automated exposure control *Adjustment of mA and/or kV according to patient size (this includes techniques or standardized protocols for targeted exams where dose is matched to indication/reason for exam; i.e. extremities or head) *Use of iterative reconstruction technique DLP: 573 mGy-cm FINDINGS: Pharyngeal mucosal spaces are symmetric. Parapharyngeal and retromaxillary fat is preserved. Set Up And Charger spaces are symmetric. The parotid and submandibular glands are normal. The tongue base and epiglottis are normal. Preepiglottic fat is preserved. Glottic and subglottic airways are widely patent. The thyroid gland is normal and the remainder of the visualized visceral soft tissues are normal. There are no pathologically enlarged cervical lymph nodes. No mediastinal or axillary adenopathy is visualized within the [id number] of this examination. Lung apices are clear. Scattered atheromatous calcification involves the aortic arch apex. Cervical carotid and vertebral arteries are grossly patent. Internal jugular veins fill symmetrically. There is no acute osseous finding. Specifically no worrisome lytic or blastic osseous lesion. Grossly no spinal canal compromise. The skull base is intact. No mastoid middle ear effusion. No active paranasal sinus disease. Limited visualization of the intracranial anatomy reveals no abnormal finding. CT/CT soft tissue neck w IV con IMPRESSION: Unremarkable soft tissue neck CT scan. No discrete anatomic finding to provide an explanation for this patient's left-sided neck pain.
[2023-04-01 10:09] VITALS: BP 100/73; PULSE 82; RESP 16; TEMP 37.1; O2SAT 97; BMI 39.5
--- NOTE | 2023-04-01 11:23 | ED.GENADULT ---
HPI - General Adult General Chief complaint: General Medical Stated complaint: L side facial pain/ seen recently Time Seen by Provider: 04/01/23 11:16 Source: patient and old records reviewed Mode of arrival: ambulatory Limitations: no limitations History of Present Illness HPI narrative: 62 yo female with PMH of DVT on eliquis, PAD, CKD, anxiety, GERD, HTN, DM, UTI seen on 03/27 placed on augmentin after starting ear drops on 03/25 (neomycin poly) now here with c/o pain opening jaw swelling to face down into neck, chills and subjective fevers. Notes she took augmentin but threw it up yesterday complaint: L sided neck and facial pain/swelling Onset (ago): day(s) (1+) Location: face and neck Severity: severe Quality: crushing Pain Consistency: constant Relieving factors: none Exacerbating factors: eating Associated symptoms: fever/chills Treatments prior to arrival: other (antibiotic) Related Data Home Medications Medication Instructions Recorded Confirmed alcohol swabs pad topical TID 10/16/20 amlodipine 5 mg tablet 5 mg PO DAILY 10/16/20 apixaban 5 mg tablet 5 mg PO BID 10/16/20 atorvastatin 10 mg tablet 10 mg PO DAILY 10/16/20 blood sugar diagnostic #10 ea 10/16/20 cholecalciferol (vitamin D3) 50 50 mcg PO BEDTIME 10/16/20 mcg (2,000 unit) capsule citalopram 40 mg tablet 40 mg PO DAILY 10/16/20 diclofenac sodium 1 % topical gel g topical 10/16/20 fluticasone propionate 50 0 mcg intranasal BID 10/16/20 mcg/actuation nasal spray,suspension hydrochlorothiazide 25 mg tablet 25 mg PO QAM 10/16/20 lancets 30 gauge #100 ea 10/16/20 loratadine 10 mg tablet 10 mg PO DAILY 10/16/20 losartan 100 mg tablet 100 mg PO DAILY 10/16/20 metoprolol succinate 100 mg 100 mg PO DAILY 10/16/20 tablet,extended release 24 hr montelukast 10 mg tablet 10 mg PO DAILY 10/16/20 omeprazole 20 mg capsule,delayed 20 mg PO DAILY 10/16/20 release oxycodone 30 mg tablet 30 mg PO TID PRN 10/16/20 pen needle, diabetic 32 gauge x #50 ea 10/16/20 temazepam 30 mg capsule 30 mg PO BEDTIME PRN 10/16/20 triamcinolone acetonide 0.025 % appl topical 10/16/20 topical cream tizanidine 4 mg tablet 4 mg PO TID PRN 12/11/20 12/11/20 benzonatate 100 mg capsule 100 mg PO TID 08/14/21 insulin glargine 100 unit/mL (3 unit subcut BEDTIME 08/14/21 mL) subcutaneous pen (Lantus Solostar U-100 Insulin) insulin lispro 100 unit/mL 30 unit subcut TID 08/14/21 subcutaneous pen metronidazole 0.75 % (37.5 mg/5 1 appful vaginal BEDTIME 08/14/21 gram) vaginal gel dulaglutide 4.5 mg/0.5 mL mg subcut 12/15/21 subcutaneous pen injector (Trulicity) empagliflozin 10 mg tablet 10 mg PO QAM 12/15/21 (Jardiance) ezetimibe 10 mg tablet 10 mg PO DAILY 01/13/23 fluocinonide 0.05 % topical cream appl topical DAILY 01/13/23 hydroxyzine HCl 25 mg tablet 25 mg PO DAILY 01/13/23 lorazepam 1 mg tablet 1 mg PO BID 01/13/23 metformin 850 mg tablet 850 mg PO BID 01/13/23 Previous Rx's Medication Instructions Recorded nitrofurantoin macrocrystal 50 mg 50 mg PO BEDTIME 10 days #10 caps 12/31/20 capsule incontinence pad, liner, disp #90 ea 11/13/21 (Poise Pads) albuterol sulfate 90 mcg/actuation 1 inh inhalation QID PRN shortness 06/06/22 aerosol inhaler of breath or wheezing #8.5 grams diphenhydramine HCl 25 mg capsule 25 mg PO TID PRN headache #20 caps 07/02/22 (Benadryl) lidocaine 5 % topical patch 1 patch topical DAILY PRN pain #15 07/02/22 ea metoclopramide HCl 10 mg tablet 10 mg PO Q6H PRN nausea and 07/02/22 (Reglan) vomiting #20 tabs vibegron 75 mg tablet (Gemtesa) 75 mg PO DAILY 90 days #90 tabs 07/07/22 metoclopramide HCl 10 mg tablet 10 mg PO Q6H PRN nausea and 10/29/22 (Reglan) vomiting #10 tabs ondansetron 4 mg disintegrating 4 mg PO Q8H PRN nausea and 10/29/22 tablet vomiting #10 tabs nystatin 100,000 unit/gram topical 1 appl topical TID 30 days #30 01/13/23 powder grams disposable gloves (Nitrile Exam #50 ea 02/15/23 Gloves) incontinence pad, liner, disp #180 ea 02/15/23 underpads (Bed Underpads) #90 ea 02/15/23 amoxicillin 875 mg-potassium 1 tab PO Q12H 7 days #14 tabs 03/27/23 clavulanate 125 mg tablet Allergies Allergy/AdvReac Type Severity Reaction Status Date / Time octopus Allergy Severe Anaphylaxis Verified 03/27/23 13:22 oxybutynin Allergy Severe Difficulty Verified 03/27/23 13:22 Swallowing tolterodine Allergy Severe Difficulty Verified 03/27/23 13:22 Swallowing aspirin Allergy Unknown anaphylaxis Verified 03/27/23 13:22 citalopram Allergy Unknown Unknown Verified 03/27/23 13:22 empagliflozin Allergy Unknown Unknown Verified 03/27/23 13:22 [From Jardiance] Fish Containing Products Allergy Unknown Unknown Verified 03/27/23 13:22 gabapentin Allergy Unknown hives Verified 03/27/23 13:22 hydrocodone [Vicodin] Allergy Unknown hives Verified 03/27/23 13:22 naproxen [Naprosyn] Allergy Unknown anaphylaxis Verified 03/27/23 13:22 oxycodone [Percocet] Allergy Unknown hives Verified 03/27/23 13:22 pregabalin [From Lyrica] Allergy Unknown Unknown Verified 03/27/23 13:22 sertraline Allergy Unknown Unknown Verified 03/27/23 13:22 shellfish derived Allergy Unknown Unknown Verified 03/27/23 13:22 peanut Allergy Anaphylaxis Verified 03/27/23 13:22 solifenacin AdvReac phlegm Verified 03/27/23 13:22 Vicodin Allergy Unknown hives Uncoded 02/15/23 13:17 Review of Systems Review of Systems: Constitutional : No Fever, No Chills, No Fatigue ENT/Mouth : No sore throat, No Rhinorrhea, pos facial pain, pos neck pain Eyes: No Eye Pain, No Swelling, No Redness Cardiovascular : No Chest Pain, No SOB, No Dyspnea on Exertion Respiratory : No Cough, No Sputum Gastrointestinal : No Nausea, No Vomiting, No Diarrhea, No abdominal Pain Genitourinary : No Dysuria, No Urinary Frequency, No Hematuria, Musculoskeletal : No joint pain, No Myalgias, No Joint Swelling Skin : No Skin Lesions, No rash Neuro : No Weakness, No Numbness, No Dizziness, positive Headache Psych : No Anxiety/Panic, No Depression Heme/Lymph: No Bruising, No Bleeding,No Lymphadenopathy Endocrine : No Polyuria, No Polydipsia All other systems reviewed and are negative [facility] Past Medical History Attestation statement: The following information was validated with the patient. Source: old records reviewed Medical History Amputated toe of right foot History of left below knee amputation Ganglion cyst Urinary incontinence HTN (hypertension) Diabetes mellitus Urinary incontinence UTI (urinary tract infection) Surgical History S/P carpal tunnel release History of surgical removal of ganglion cyst S/P rotator cuff repair History of surgery Social History Alcohol intake: never Patient Tobacco Use Status: Never used Tobacco Smoked in Last 30 Days: No Substance Use Type: Marijuana Substance Use Frequency: Occasionally Last Used Substance: Weeks (ago) Advance Directives: No Physical Exam ED Vital Signs: Vital Signs - 24 hr 04/01/23 10:09 04/01/23 11:26 Temperature 98.8 F 98.1 F Pulse Rate 82 Respiratory Rate 16 18 Blood Pressure 100/73 101/49 L Pulse Oximetry 97 Oxygen Delivery Method Room Air BMI result Body Mass Index 39.5 Appearance: Alert. Oriented X3. No acute distress. Eyes: Pupils equal, round and reactive to light. ENT: Pharynx trismus noted no dental abscess, no intraoral swelling no sublingual swelling - has no fluctuance or firmness or erythema/warmth noted in submandibular or parotid area but she reports ttp her face does have obesity but it seems symmetric to me. L TM normal Neck: Normal inspection. Neck supple. CVS: Normal heart rate and rhythm. Pulses normal. Respiratory: No respiratory distress. Breath sounds normal. Abdomen: Soft and nontender. Skin: Skin warm and dry. Normal skin color. Normal skin turgor. Extremities: No lower extremity edema. No calf ttp Neuro: Oriented X 3. No motor deficit. No sensory deficit. Course Course Course Narrative: has oxycodone at home Medications Administered Discontinued Medications Generic Name Dose Route Start Last Admin Trade Name Emily PRN Reason Stop Dose Admin Iohexol 60 ml 04/01/23 13:02 04/01/23 13:03 Iohexol 350 Mg/Ml 100 Ml Infus..Btl IV 04/01/23 13:03 60 ml ONCE ONE Administration Medical Decision Making Medical Decision Making [facility] Narrative: 62 yo female with PMH of DVT on eliquis, PAD, CKD, anxiety, GERD, HTN, DM, UTI seen on 03/27 placed on augmentin after starting ear drops on 03/25 (neomycin poly) now here with worsening pain and trismus I do not appreciate a mass or abscess but she is very tender at this time will need basic labs, CT neck for deeper space infection. normal voice and tolerating secretions Differential Diagnosis Differential Diagnoses: The differential diagnosis associated with the presentation includes pain, abscess, parotid gland infection Admission/Observation Consideration of admission/observation: Escalation of care including admission/observation considered labs and CT scan normal Lab Data [facility] Lab Attestation statement: I reviewed the patient's lab results. 04/01/23 11:51 04/01/23 11:51 Labs: Lab Results 04/01/23 Range/Units 11:51 WBC 9.4 (4.8-10.8) X10*3/uL RBC 4.32 (4.20-5.50) X10*6/uL Hgb 13.5 (12.0-16.0) g/dl Hct 40.6 (37.0-47.0) % MCV 94.0 (80.0-98.0) fL MCH 31.3 (27.0-33.0) pg MCHC 33.3 (31.0-35.0) g/dl RDW 13.9 (11.0-16.0) % Plt Count 234 (160-400) X10*3/uL MPV 9.2 L (9.4-12.3) fL Immature Gran % (Auto) 0.4 (0.0-0.4) % Neut % (Auto) 57.3 (45-73) % Lymph % (Auto) 32.7 (20-40) % [place] % (Auto) 6.2 (2-11) % Eos % (Auto) 3.1 (0-4) % Baso % (Auto) 0.3 (0-2) % Lymph # (Auto) 3.1 (1.2-4.9) X10*3/uL [place] # (Auto) 0.6 (0.1-1.2) X10*3/uL Eos # (Auto) 0.3 (0.0-0.4) X10*3/uL Baso # (Auto) 0.0 (0.0-0.2) X10*3/uL Abs Immat Gran (auto) 0.04 H (0.00-0.03) X10*3/uL Absolute Neuts (auto) 5.4 (2.0-8.3) x10*3/uL Absolute Nucleated RBC 0.000 (0.0-0.012) X10*3/uL Nucleated RBC % (auto) 0.0 (0.0-0.2) /100WBC Sodium 141 (135-145) mmol/L Potassium 3.8 (3.3-5.1) mmol/L Chloride 103 (96-108) mmol/L Carbon Dioxide 30 H (22-29) mmol/L Anion Gap 12 (12-20) BUN 17 H (9-16) mg/dL Creatinine 1.35 (0.5-1.4) mg/dL Estim Creat Clear Calc 48.4 Estimated GFR 40 Random Glucose 140 H (60-115) mg/dL Calcium 9.4 D (8.4-10.2) mg/dL Magnesium 1.8 (1.6-2.6) mg/dL Total Bilirubin 0.7 (0.0-1.0) mg/dL Direct Bilirubin 0.2 (0.0-0.5) mg/dL AST 19 (5-31) U/L ALT 21 (0-31) U/L Alkaline Phosphatase 71 (39-117) U/L Total Protein 6.7 (6.5-8.0) g/dL Albumin 3.8 (3.5-5.0) g/dL Independent Interpretation I performed an independent interpretation of an: CT Scan Radiology Impression Discussion of test interpretation with radiology: I have reviewed the radiologist's reading. Independent Historian Clinical information obtained from an independent historian. History obtained from or confirmed by: Spouse External Record Review External record reviewed: Inpatient record Prescription Management I considered prescription management with: Pain Medication Chronic Conditions Patient?s care impacted by: Diabetes Discharge Plan Discharge Clinical Impression: Acute otalgia Qualifiers: Laterality: left Qualified Code(s): H92.02 - Otalgia, left ear Patient Disposition: Home, Self-Care Instructions: Earache (ED) Additional Instructions: your labs and CT scan are normal no signs of infection. continue your medications and follow up with your doctor on , call ENT again next week to get appointment return for worsening pain, fevers, or any other concerns. FINDINGS: Pharyngeal mucosal spaces are symmetric. Parapharyngeal and retromaxillary fat is preserved. [employer] Super[employer] spaces are symmetric. The parotid and submandibular glands are normal. The tongue base and epiglottis are normal. Preepiglottic fat is preserved. Glottic and subglottic airways are widely patent. The thyroid gland is normal and the remainder of the visualized visceral soft tissues are normal. There are no pathologically enlarged cervical lymph nodes. No mediastinal or axillary adenopathy is visualized within the [id number] of this examination. Lung apices are clear. Scattered atheromatous calcification involves the aortic arch apex. Cervical carotid and vertebral arteries are grossly patent. Internal jugular veins fill symmetrically. There is no acute osseous finding. Specifically no worrisome lytic or blastic osseous lesion. Grossly no spinal canal compromise. The skull base is intact. No mastoid middle ear effusion. No active paranasal sinus disease. Limited visualization of the intracranial anatomy reveals no abnormal finding. CT/CT soft tissue neck w IV con IMPRESSION: Unremarkable soft tissue neck CT scan. No discrete anatomic finding to provide an explanation for this patient's left-sided neck pain. Prescriptions: No Action nitrofurantoin macrocrystal 50 mg capsule 50 mg PO BEDTIME 10 Days Qty: 10 1RF Rx Instructions: must administer with a meal/food Gemtesa 75 mg tablet 75 mg PO DAILY 90 Days Qty: 90 1RF (DME) disposable gloves [Nitrile Exam Gloves] Misc See Rx Instructions .Route Qty: 50 11RF Rx Instructions: As directed- pt requesting size XL (DME) incontinence pad, liner, disp Pad See Rx Instructions .ROUTE .MEDSUPPLY Qty: 180 11RF Rx Instructions: As directed- pt requesting 6 per day (DME) underpads [Bed Underpads] Pad See Rx Instructions .Route Qty: 90 11RF Rx Instructions: As directed- pt requesting 3 per night albuterol sulfate 90 mcg/actuation HFA aerosol inhaler 1 inh inhalation QID PRN (Reason: shortness of breath or wheezing) Qty: 8.5 0RF metoclopramide HCl [Reglan] 10 mg tablet 10 mg PO Q6H PRN (Reason: nausea and vomiting) Qty: 20 0RF diphenhydramine HCl [Benadryl] 25 mg capsule 25 mg PO TID PRN (Reason: headache) Qty: 20 0RF lidocaine 5 % adhesive patch,medicated 1 patch topical DAILY PRN (Reason: pain) Qty: 15 0RF Rx Instructions: leave on most painful area for up to 12 hrs metoclopramide HCl [Reglan] 10 mg tablet 10 mg PO Q6H PRN (Reason: nausea and vomiting) Qty: 10 0RF ondansetron 4 mg tablet,disintegrating 4 mg PO Q8H PRN (Reason: nausea and vomiting) Qty: 10 0RF amoxicillin-pot clavulanate 875-125 mg tablet 1 tab PO Q12H 7 Days Qty: 14 0RF (DME) lancets 30 gauge misc See Rx Instructions .ROUTE TID Qty: 100 Rx Instructions: As directed (DME) pen needle, diabetic 32 gauge x 5/32 needle See Rx Instructions .ROUTE .MEDSUPPLY Qty: 50 Rx Instructions: As directed cholecalciferol (vitamin D3) 50 mcg (2,000 unit) capsule 50 mcg PO BEDTIME diclofenac sodium 1 % gel topical loratadine 10 mg tablet 10 mg PO DAILY fluticasone propionate 50 mcg/actuation spray,suspension 0 mcg intranasal BID losartan 100 mg tablet 100 mg PO DAILY hydrochlorothiazide 25 mg tablet 25 mg PO QAM alcohol swabs Pads, Medicated topical TID montelukast 10 mg tablet 10 mg PO DAILY omeprazole 20 mg capsule,delayed release(DR/EC) 20 mg PO DAILY temazepam 30 mg capsule 30 mg PO BEDTIME PRN amlodipine 5 mg tablet 5 mg PO DAILY (DME) FreeStyle Lite Strips Strip See Rx Instructions Not Applicable TID Qty: 10 Rx Instructions: As directed metoprolol succinate 100 mg tablet extended release 24 hr 100 mg PO DAILY atorvastatin 10 mg tablet 10 mg PO DAILY citalopram 40 mg tablet 40 mg PO DAILY Eliquis 5 mg tablet 5 mg PO BID oxycodone 30 mg tablet 30 mg PO TID PRN triamcinolone acetonide 0.025 % cream topical tizanidine 4 mg tablet 4 mg PO TID PRN benzonatate 100 mg capsule 100 mg PO TID metronidazole 0.75 % gel 1 appful vaginal BEDTIME Lantus Solostar U-100 Insulin 100 unit/mL (3 mL) insulin pen subcut BEDTIME insulin lispro 100 unit/mL insulin pen 30 unit subcut TID Trulicity 4.5 mg/0.5 mL pen injector subcut Jardiance 10 mg tablet 10 mg PO QAM (DME) Poise Pads Pad See Rx Instructions .ROUTE .MEDSUPPLY Qty: 90 0RF Rx Instructions: As directed ezetimibe 10 mg tablet 10 mg PO DAILY fluocinonide 0.05 % cream topical DAILY lorazepam 1 mg tablet 1 mg PO BID hydroxyzine HCl 25 mg tablet 25 mg PO DAILY metformin 850 mg tablet 850 mg PO BID nystatin 100,000 unit/gram powder 1 appl topical TID 30 Days Qty: 30 0RF Rx Instructions: to abdominal fold bilaterally
[2023-04-01 11:26] VITALS: BP 101/49; RESP 18; TEMP 36.7
--- NOTE | 2023-04-01 11:28 | PC.NURSE ---
talks w/o issue. reports l facial pain. no swelling noted. no airway issues. +pallor. reports she feels like her left face/neck is swollen/tender.
[2023-04-01 11:56] LABS: MANUAL DIFF FLAG NO
[2023-04-01 12:01] LABS: Basophils Percent Auto 0.3 % (0-2); Eosinophils Absolute Auto 0.3 X10*3/uL (0.0-0.4); Eosinophils Percent Auto 3.1 % (0-4); Hematocrit 40.6 % (37.0-47.0); Hemoglobin 13.5 g/dl (12.0-16.0); Imm Gran Abs Auto 0.04 X10*3/uL (0.00-0.03); Imm Gran Pct Auto 0.4 % (0.0-0.4); Lymphocytes Absolute Auto 3.1 X10*3/uL (1.2-4.9); Lymphocytes Percent Auto 32.7 % (20-40); Mean Corpuscular HGB Conc 33.3 g/dl (31.0-35.0); Mean Corpuscular Hemoglobin 31.3 pg (27.0-33.0); Mean Platelet Volume 9.2 fL (9.4-12.3); Monocytes Absolute Auto 0.6 X10*3/uL (0.1-1.2); Monocytes Percent Auto 6.2 % (2-11); Neutrophils Absolute Auto 5.4 x10*3/uL (2.0-8.3); Neutrophils Percent Auto 57.3 % (45-73); Platelet Count 234 X10*3/uL (160-400); Red Blood Count 4.32 X10*6/uL (4.20-5.50); Red Cell Distribution Width 13.9 % (11.0-16.0); White Blood Count 9.4 X10*3/uL (4.8-10.8)
[2023-04-01 12:14] LABS: Alanine Aminotransferase 21 U/L (0-31); Albumin Level 3.8 g/dL (3.5-5.0); Alkaline Phosphatase 71 U/L (39-117); Anion Gap 12 (12-20); Aspartate Amino Transferase 19 U/L (5-31); Bilirubin Direct 0.2 mg/dL (0.0-0.5); Bilirubin Total 0.7 mg/dL (0.0-1.0); Blood Urea Nitrogen 17 mg/dL (9-16); Calcium 9.4 mg/dL (8.4-10.2); Carbon Dioxide 30 mmol/L (22-29); Chloride 103 mmol/L (96-108); Creatinine Clr Calc Pharmacy 48.4; Estimated Glomerular Filt Rate 40; Glucose Random 140 mg/dL (60-115); Magnesium 1.8 mg/dL (1.6-2.6); Potassium 3.8 mmol/L (3.3-5.1); Sodium 141 mmol/L (135-145); Total Protein 6.7 g/dL (6.5-8.0)
--- NOTE | 2023-04-01 13:00 | PC.NURSE ---
no distress. talks well. breathing well
[2023-04-01] MEDS: iohexoL 350 MG/ML 100 ML INFUS..BTL 60 ML IV (13:03)
[2023-04-01 14:00] VITALS: BP 114/64; PULSE 74; RESP 16; TEMP 36.6; O2SAT 100
[2023-04-01] MEDS: Acetaminophen 325 MG TABLET 975 MG PO (14:25)
== END 2023-04-01 14:36 | disposition home or self-care (01) ==
PROVIDERS: Emergency Provider Emergency Medicine; PCP Hospitalist
DX: H92.02 Otalgia, left ear (principal); R50.9 Fever, unspecified; M54.2 Cervicalgia; I10 Essential (primary) hypertension; R51.9 Headache, unspecified; E11.9 Type 2 diabetes mellitus without complications; Z79.01 Long term (current) use of anticoagulants; Z86.718 Personal history of other venous thrombosis and embolism; Z79.899 Other long term (current) drug therapy; Z79.4 Long term (current) use of insulin
CPT/HCPCS: 36415; 70491; 80048; 80076; 83735; 85025; 99284; Q9967

== ENCOUNTER 2023-04-05 10:14 | Outpatient (AMB) | payer OTHER, SELFPAY ==
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
[2023-04-05 10:27] VITALS: BP 143/71; PULSE 71; BMI 40.1
== END 2023-04-05 11:06 | disposition home or self-care (01) ==
PROVIDERS: PCP Hospitalist; Referring Provider Hospitalist; Visit Provider Nurse Practitioner
DX: K21.9 Gastro-esophageal reflux disease without esophagitis (principal); Z88.9 Allergy status to unspecified drugs, medicaments and biological substances; Z91.018 Allergy to other foods; K31.84 Gastroparesis; E11.9 Type 2 diabetes mellitus without complications
CPT/HCPCS: 99213

== ENCOUNTER → 2023-04-05 10:14 | Outpatient (BNVA) | payer OTHER, SELFPAY | PROVIDERS: PCP Hospitalist; Visit Provider Nurse Practitioner | DX: K31.84 Gastroparesis (principal); K21.9 Gastro-esophageal reflux disease without esophagitis; E11.9 Type 2 diabetes mellitus without complications; Z88.9 Allergy status to unspecified drugs, medicaments and biological substances; Z91.018 Allergy to other foods | CPT/HCPCS: 99212 ==

== ENCOUNTER 2023-04-21 12:45 | Outpatient (AMB) | payer OTHER, MEDICAID, SELFPAY ==
--- NOTE | 2023-04-21 12:58 | MHC.OFFVIS ---
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 States she has like an electrical pulsing in her left ear and headache. Pt states no one has prescribed prednisone. She did has labwork done in late March 2023. Pt states her headache started about a month ago. Pts main issue is the pain and pressure near her ear. Accompanied by: Self / Same As Patient Allergies octopus Allergy (Severe, Verified 04/21/23 13:05) Anaphylaxis oxybutynin Allergy (Severe, Verified 04/21/23 13:05) Difficulty Swallowing tolterodine Allergy (Severe, Verified 04/21/23 13:05) Difficulty Swallowing aspirin Allergy (Unknown, Verified 04/21/23 13:05) anaphylaxis citalopram Allergy (Unknown, Verified 04/21/23 13:05) Unknown empagliflozin [From Jardiance] Allergy (Unknown, Verified 04/21/23 13:05) Unknown Fish Containing Products Allergy (Unknown, Verified 04/21/23 13:05) Unknown gabapentin Allergy (Unknown, Verified 04/21/23 13:05) hives hydrocodone [Vicodin] Allergy (Unknown, Verified 04/21/23 13:05) hives naproxen [Naprosyn] Allergy (Unknown, Verified 04/21/23 13:05) anaphylaxis oxycodone [Percocet] Allergy (Unknown, Verified 04/21/23 13:05) hives pregabalin [From Lyrica] Allergy (Unknown, Verified 04/21/23 13:05) Unknown sertraline Allergy (Unknown, Verified 04/21/23 13:05) Unknown shellfish derived Allergy (Unknown, Verified 04/21/23 13:05) Unknown peanut Allergy (Verified 04/21/23 13:05) Anaphylaxis solifenacin Adverse Reaction (Verified 04/21/23 13:05) phlegm Vicodin Allergy (Unknown, Uncoded 04/21/23 13:05) hives HPI 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 She had originally presented to the ENT. She was prescribed antibiotic drops by her primary care which did not give any improvement. She was at that time given oral Augmentin and did not note any relief. She had presented to her ENT who at that time suggested a possible temporal artery biopsy. She now presents for evaluation. [facility] Medical History Gastroparesis Amputated toe of right foot History of left below knee amputation Ganglion cyst Urinary incontinence HTN (hypertension) Diabetes mellitus Urinary incontinence UTI (urinary tract infection) Surgical History S/P carpal tunnel release History of surgical removal of ganglion cyst S/P rotator cuff repair History of surgery Social History Alcohol intake: never Patient Tobacco Use Status: Never used Tobacco Substance Use Type: Marijuana Review of Systems Const All systems reviewed & are unremarkable except as noted in HPI and below Reports no additional complaints ENT Reports Normal hearing present Card Denies chest pain, Denies chest pain at rest, Denies chest pain with activity and Denies pedal edema Resp Denies cough GI Denies abdominal pain Musc Denies abnormal gait, Denies muscle cramps and Denies radiating pain into limb Skin/Breast Denies skin ulcer and Denies wounds Neuro Reports Normal hearing present and Denies abnormal gait Psych Reports no additional complaints Physical Exam Vital Signs: BMI result Body Mass Index 40.1 Const Other: Morbidly obese General: cooperative, healthy appearing and comfortable Orientation/consciousness: oriented to person, oriented to place and oriented to time HEENT Head: Yes normal to inspection Neck Neck: Yes normal visual inspection Carotids: no bruits Chest Chest palpation & inspection: normal inspection of the chest Resp Effort & Inspection: normal respiratory effort and able to speak in complete sentences Auscultation: clear to auscultation bilaterally, no crackles, no rales, no rhonchi and no wheezes Cardio Rate: regular rate Rhythm: regular rhythm Heart sounds: S1 normal heart sound present and S2 normal heart sound present Bruits: no carotid bruits Peripheral pulses: Peripheral pulses 2+ throughout GI Inspection: Yes normal to inspection Skin Wounds: no wounds Hair: normal Neuro General: oriented to person, oriented to place and oriented to time Cranial nerves: Yes CN's II-XII intact bilaterally and Yes Normal hearing present Cognition (Neuro): normal cognition Motor exam (neuro): 5/5 motor strength present throughout Extrem Other: venous exam: No significant superficial varicosities or spider telangiectasias, minimal edema General: No clubbing, No cyanosis and No edema Psych Appearance: grossly normal Mental Status: mental status grossly normal Speech and movement: Normal speech and movement present Results Reviewed Results Reviewed: 07/02/2022 ESR 34 CRP 1.42 Assessment & Plan Assessment & Plan (1) Giant cell arteritis: Code(s): M31.6 - Other giant cell arteritis Plan: In short the patient notes left-sided temporal headache. Inflammatory markers are elevated although dated back in June there still concerning. She will require left temporal artery biopsy. Risks benefits complications of the procedure were discussed in detail with the patient. They understood and consented. We will schedule as soon as possible. Thank you for allowing us to assist in her care. If there are any questions or concerns please do not hesitate to contact us. The patient had an opportunity to ask questions regarding the treatment plan. All questions were answered. Imaging studies, laboratory studies and physical exam results were discussed and reviewed in detail. No major barriers to understanding were identified. The patient expressed understanding and agreement with the above treatment plan. The patient is aware they should contact our office by phone for worsening of the current condition or the appearance of new symptoms. Thank you for allowing me to participate in the vascular care of this patient. If you have any questions or concerns regarding the treatment for the above condition please do not hesitate to contact me. The office telephone contact is [phone]. This note is constructed using voice recognition software. While every effort has been made to ensure accuracy, radiology transcriptionist errors may have been included. Thank you for allowing me to participate in the care of your patient. Yours sincerely, Alo Franz MD, FACS, R.P.V.I. Coding Level of Care Code New Pt Level 4 (90534) Diagnoses Giant cell arteritis M31.6
[2023-04-21 12:59] VITALS: BMI 40.1
== END 2023-04-21 13:43 | disposition home or self-care (01) ==
PROVIDERS: PCP Hospitalist; Visit Provider Surgery Vascular Surgery
DX: M31.6 Other giant cell arteritis (principal)
CPT/HCPCS: 99204

== ENCOUNTER → 2023-04-21 12:45 | Outpatient (BNVA) | payer OTHER, SELFPAY | PROVIDERS: PCP Hospitalist; Visit Provider Surgery Vascular Surgery | DX: M31.6 Other giant cell arteritis (principal) | CPT/HCPCS: 99202 ==

== ENCOUNTER 2023-04-25 08:55 | Day surgery (SDC) | payer OTHER, SELFPAY ==
--- NOTE | 2023-04-22 08:56 | HO.ANESPROP2 ---
Documented by User: Sanjana Campbell NP 04/22/23 09:01 HPI - Anesthesia Eval Consult details Narrative: 62yo F for Left Temporal Artery Biopsy Eliquis for Hx DVT / PAD No prednisone rx Anesthesia Pre-Procedure Meds Is the patient on any of the following meds?: Dulaglutide (Trulicity) PMFSH Active Problems Active Problems: All Active Problems (Updated 04/21/23 @ 13:31 by Alo Franz MD) Giant cell arteritis (Acute) Multiple food allergies (Acute) Multiple drug allergies (Acute) GERD (gastroesophageal reflux disease) (Acute) Lumbosacral radiculopathy due to degenerative joint disease of spine (Acute) Generalized anxiety disorder (Acute) Amputation of left lower extremity below knee (Acute) Chronic deep vein thrombosis (DVT) (Acute) Chronic anticoagulation (Acute) Peripheral arterial disease (Acute) Chronic, continuous use of opioids (Acute) Chronic pain (Acute) Chronic kidney disease, stage 3 (Acute) IDDM (insulin dependent diabetes mellitus) (Acute) High cholesterol (Acute) MUSA (obstructive sleep apnea) (Acute) Asthma (Acute) Morbid obesity (Acute) COVID-19 (Acute) HTN (hypertension) (Acute) Diabetes mellitus (Acute) Pelvic floor dysfunction in female (Acute) Urinary incontinence (Acute) UTI (urinary tract infection) (Acute) Past Medical History Medical History Gastroparesis Amputated toe of right foot History of left below knee amputation Ganglion cyst Urinary incontinence HTN (hypertension) Diabetes mellitus Urinary incontinence UTI (urinary tract infection) Surgical History Surgical History S/P carpal tunnel release History of surgical removal of ganglion cyst S/P rotator cuff repair History of surgery Social History Social History Alcohol intake: never Patient Tobacco Use Status: Never used Tobacco Substance Use Type: Marijuana Substance Use Frequency: Occasionally Are you DNR?: No Advance Directives: No Advance Directives Information Provided: Yes Nutrition Risks: No Nutritional Risk Meds Allergies Allergy/AdvReac Type Severity Reaction Status Date / Time octopus Allergy Severe Anaphylaxis Verified 04/21/23 13:05 oxybutynin Allergy Severe Difficulty Verified 04/21/23 13:05 Swallowing tolterodine Allergy Severe Difficulty Verified 04/21/23 13:05 Swallowing aspirin Allergy Unknown anaphylaxis Verified 04/21/23 13:05 citalopram Allergy Unknown Unknown Verified 04/21/23 13:05 empagliflozin Allergy Unknown Unknown Verified 04/21/23 13:05 [From Jardiance] Fish Containing Products Allergy Unknown Unknown Verified 04/21/23 13:05 gabapentin Allergy Unknown hives Verified 04/21/23 13:05 hydrocodone [Vicodin] Allergy Unknown hives Verified 04/21/23 13:05 naproxen [Naprosyn] Allergy Unknown anaphylaxis Verified 04/21/23 13:05 oxycodone [Percocet] Allergy Unknown hives Verified 04/21/23 13:05 pregabalin [From Lyrica] Allergy Unknown Unknown Verified 04/21/23 13:05 sertraline Allergy Unknown Unknown Verified 04/21/23 13:05 shellfish derived Allergy Unknown Unknown Verified 04/21/23 13:05 peanut Allergy Anaphylaxis Verified 04/21/23 13:05 solifenacin AdvReac phlegm Verified 04/21/23 13:05 Vicodin Allergy Unknown hives Uncoded 04/21/23 13:05 Home Medications Medication Instructions Recorded Confirmed Last Taken Type alcohol swabs pad topical TID 10/16/20 Unknown History amlodipine 5 mg tablet 5 mg PO DAILY 10/16/20 Unknown History apixaban 5 mg tablet 5 mg PO BID 10/16/20 04/25/23 04/23/23 History atorvastatin 10 mg tablet 10 mg PO DAILY 10/16/20 Unknown History blood sugar diagnostic #10 ea 10/16/20 Unknown History cholecalciferol (vitamin D3) 50 50 mcg PO BEDTIME 10/16/20 Unknown History mcg (2,000 unit) capsule citalopram 40 mg tablet 40 mg PO DAILY 10/16/20 04/25/23 04/25/23 History diclofenac sodium 1 % topical gel g topical 10/16/20 Unknown History fluticasone propionate 50 0 mcg intranasal BID 10/16/20 Unknown History mcg/actuation nasal spray,suspension hydrochlorothiazide 25 mg tablet 25 mg PO QAM 10/16/20 Unknown History lancets 30 gauge #100 ea 10/16/20 Unknown History loratadine 10 mg tablet 10 mg PO DAILY 10/16/20 Unknown History losartan 100 mg tablet 100 mg PO DAILY 10/16/20 Unknown History metoprolol succinate 100 mg 100 mg PO DAILY 10/16/20 Unknown History tablet,extended release 24 hr montelukast 10 mg tablet 10 mg PO DAILY 10/16/20 Unknown History omeprazole 20 mg capsule,delayed 20 mg PO DAILY 10/16/20 Unknown History release oxycodone 30 mg tablet 30 mg PO TID PRN 10/16/20 Unknown History pen needle, diabetic 32 gauge x #50 ea 10/16/20 Unknown History temazepam 30 mg capsule 30 mg PO BEDTIME PRN 10/16/20 Unknown History triamcinolone acetonide 0.025 % appl topical 10/16/20 Unknown History topical cream tizanidine 4 mg tablet 4 mg PO TID PRN 12/11/20 12/11/20 Unknown History benzonatate 100 mg capsule 100 mg PO TID 08/14/21 Unknown History insulin glargine 100 unit/mL (3 unit subcut BEDTIME 08/14/21 Unknown History mL) subcutaneous pen (Lantus Solostar U-100 Insulin) insulin lispro 100 unit/mL 30 unit subcut TID 08/14/21 Unknown History subcutaneous pen metronidazole 0.75 % (37.5 mg/5 1 appful vaginal BEDTIME 08/14/21 Unknown History gram) vaginal gel dulaglutide 4.5 mg/0.5 mL mg subcut 12/15/21 04/17/23 History subcutaneous pen injector (Trulicity) empagliflozin 10 mg tablet 10 mg PO QAM 12/15/21 Unknown History (Jardiance) ezetimibe 10 mg tablet 10 mg PO DAILY 01/13/23 Unknown History fluocinonide 0.05 % topical cream appl topical DAILY 01/13/23 Unknown History hydroxyzine HCl 25 mg tablet 25 mg PO DAILY 01/13/23 Unknown History lorazepam 1 mg tablet 1 mg PO BID 01/13/23 Unknown History metformin 850 mg tablet 850 mg PO BID 01/13/23 Unknown History Exam Pertinent Lab Results Pertinent Lab Results: Laboratory Tests 04/01/23 11:51 WBC 9.4 Hgb 13.5 Hct 40.6 Plt Count 234 Sodium 141 Potassium 3.8 Chloride 103 Carbon Dioxide 30 H BUN 17 H Creatinine 1.35 Narrative Narrative: EKG 06/2022 Vent. Rate : 086 BPM Atrial Rate : 087 BPM P-R Int : 146 ms QRS Dur : 090 ms QT Int : 356 ms P-R-T Axes : 032 026 000 degrees QTc Int : 426 ms Normal sinus rhythm Normal ECG When compared with ECG of 06-JUN-2022 13:01, No significant change was found Assessment and Plan Assessment Anesthesia Assessment: Chart Reviewed Documented by User: Sharee Hunter MD 04/25/23 11:14 HPI - Anesthesia Eval Consult details Narrative: 62yo F for Left Temporal Artery Biopsy Eliquis for Hx DVT / PAD. Last dose 04/23/23 No prednisone rx Anesthesia Pre-Procedure Meds Is the patient on any of the following meds?: Dulaglutide (Trulicity) (Last dose 04/17/23) If Yes to any meds - educate patient: Pt education - increased risk of aspiration PMFSH Active Problems Active Problems: All Active Problems (Updated 04/25/23 @ 10:20 by Sharee Hunter MD) Giant cell arteritis (Acute) Multiple food allergies (Acute) Multiple drug allergies (Acute) GERD (gastroesophageal reflux disease) (Acute) Lumbosacral radiculopathy due to degenerative joint disease of spine (Acute) Generalized anxiety disorder (Acute) Amputation of left lower extremity below knee (Acute) Chronic deep vein thrombosis (DVT) (Acute) Chronic anticoagulation (Acute) Peripheral arterial disease (Acute) Chronic, continuous use of opioids (Acute) Chronic pain (Acute) Chronic kidney disease, stage 3 (Acute) IDDM (insulin dependent diabetes mellitus) (Acute) High cholesterol (Acute) MUSA (obstructive sleep apnea) (Acute). Uses CPAP at night and sometimes during the day Asthma (Acute) Morbid obesity (Acute) BMI 38.8 COVID-19 (Acute) HTN (hypertension) (Acute) Diabetes mellitus (Acute) Pelvic floor dysfunction in female (Acute) Urinary incontinence (Acute) UTI (urinary tract infection) (Acute) Past Medical History Medical History Gastroparesis Amputated toe of right foot History of left below knee amputation Ganglion cyst Urinary incontinence HTN (hypertension) Diabetes mellitus Urinary incontinence UTI (urinary tract infection) Family History Family history of problems with anesthesia: No Surgical History Surgical History S/P carpal tunnel release History of surgical removal of ganglion cyst S/P rotator cuff repair History of surgery History of Problems with Anesthesia: Yes (Patient states 'stopped breathing' with shoulder surgery at [facility] 2019 ?cardiac arrest. Had to be intubated and 'brought back'. ?Cpr. No problems with other surgeries since. No records available. ?problems with intravascular local anesthesia or diaphragmatic affectation if blocked.) Social History Social History Alcohol intake: never Patient Tobacco Use Status: Never used Tobacco Substance Use Type: Marijuana Substance Use Frequency: Occasionally Are you DNR?: No Advance Directives: No Advance Directives Information Provided: Yes Nutrition Risks: No Nutritional Risk Meds Allergies Allergy/AdvReac Type Severity Reaction Status Date / Time octopus Allergy Severe Anaphylaxis Verified 04/21/23 13:05 oxybutynin Allergy Severe Difficulty Verified 04/21/23 13:05 Swallowing tolterodine Allergy Severe Difficulty Verified 04/21/23 13:05 Swallowing aspirin Allergy Unknown anaphylaxis Verified 04/21/23 13:05 citalopram Allergy Unknown Unknown Verified 04/21/23 13:05 empagliflozin Allergy Unknown Unknown Verified 04/21/23 13:05 [From Jardiance] Fish Containing Products Allergy Unknown Unknown Verified 04/21/23 13:05 gabapentin Allergy Unknown hives Verified 04/21/23 13:05 hydrocodone [Vicodin] Allergy Unknown hives Verified 04/21/23 13:05 naproxen [Naprosyn] Allergy Unknown anaphylaxis Verified 04/21/23 13:05 oxycodone [Percocet] Allergy Unknown hives Verified 04/21/23 13:05 pregabalin [From Lyrica] Allergy Unknown Unknown Verified 04/21/23 13:05 sertraline Allergy Unknown Unknown Verified 04/21/23 13:05 shellfish derived Allergy Unknown Unknown Verified 04/21/23 13:05 peanut Allergy Anaphylaxis Verified 04/21/23 13:05 solifenacin AdvReac phlegm Verified 04/21/23 13:05 Vicodin Allergy Unknown hives Uncoded 04/21/23 13:05 Home Medications Medication Instructions Recorded Confirmed Last Taken Type alcohol swabs pad topical TID 10/16/20 Unknown History amlodipine 5 mg tablet 5 mg PO DAILY 10/16/20 Unknown History apixaban 5 mg tablet 5 mg PO BID 10/16/20 04/25/23 04/23/23 History atorvastatin 10 mg tablet 10 mg PO DAILY 10/16/20 Unknown History blood sugar diagnostic #10 ea 10/16/20 Unknown History cholecalciferol (vitamin D3) 50 50 mcg PO BEDTIME 10/16/20 Unknown History mcg (2,000 unit) capsule citalopram 40 mg tablet 40 mg PO DAILY 10/16/20 04/25/23 04/25/23 History diclofenac sodium 1 % topical gel g topical 10/16/20 Unknown History fluticasone propionate 50 0 mcg intranasal BID 10/16/20 Unknown History mcg/actuation nasal spray,suspension hydrochlorothiazide 25 mg tablet 25 mg PO QAM 10/16/20 Unknown History lancets 30 gauge #100 ea 10/16/20 Unknown History loratadine 10 mg tablet 10 mg PO DAILY 10/16/20 Unknown History losartan 100 mg tablet 100 mg PO DAILY 10/16/20 Unknown History metoprolol succinate 100 mg 100 mg PO DAILY 10/16/20 Unknown History tablet,extended release 24 hr montelukast 10 mg tablet 10 mg PO DAILY 10/16/20 Unknown History omeprazole 20 mg capsule,delayed 20 mg PO DAILY 10/16/20 Unknown History release oxycodone 30 mg tablet 30 mg PO TID PRN 10/16/20 Unknown History pen needle, diabetic 32 gauge x #50 ea 10/16/20 Unknown History temazepam 30 mg capsule 30 mg PO BEDTIME PRN 10/16/20 Unknown History triamcinolone acetonide 0.025 % appl topical 10/16/20 Unknown History topical cream tizanidine 4 mg tablet 4 mg PO TID PRN 12/11/20 12/11/20 Unknown History benzonatate 100 mg capsule 100 mg PO TID 08/14/21 Unknown History insulin glargine 100 unit/mL (3 unit subcut BEDTIME 08/14/21 Unknown History mL) subcutaneous pen (Lantus Solostar U-100 Insulin) insulin lispro 100 unit/mL 30 unit subcut TID 08/14/21 Unknown History subcutaneous pen metronidazole 0.75 % (37.5 mg/5 1 appful vaginal BEDTIME 08/14/21 Unknown History gram) vaginal gel dulaglutide 4.5 mg/0.5 mL mg subcut 12/15/21 04/17/23 History subcutaneous pen injector (Trulicity) empagliflozin 10 mg tablet 10 mg PO QAM 12/15/21 Unknown History (Jardiance) ezetimibe 10 mg tablet 10 mg PO DAILY 01/13/23 Unknown History fluocinonide 0.05 % topical cream appl topical DAILY 01/13/23 Unknown History hydroxyzine HCl 25 mg tablet 25 mg PO DAILY 01/13/23 Unknown History lorazepam 1 mg tablet 1 mg PO BID 01/13/23 Unknown History metformin 850 mg tablet 850 mg PO BID 01/13/23 Unknown History Exam Height,Weight and Vital Signs: Height 5 ft 2 in Weight 96.162 kg Vital Signs Temp Pulse Resp BP Pulse Ox O2 Del Method 04/25/23 10:00 98.2 F 84 18 166/76 H 100 Room Air Pertinent Lab Results Pertinent Lab Results: Laboratory Tests 04/01/23 11:51 WBC 9.4 Hgb 13.5 Hct 40.6 Plt Count 234 Sodium 141 Potassium 3.8 Chloride 103 Carbon Dioxide 30 H BUN 17 H Creatinine 1.35 Lab Results 04/25/23 Range/Units 09:54 POC Glucose 121 H (60-115) mg/dL Airway Mallampati Class: IV (TMJ problems. Minimal openong) TM Dist: >3cm Neck ROM: Poor Loose/Missing/Broken Teeth: Yes (Missing molars and a couple more teeth. Denies broken or loose teeth) Heart: RRR Lungs: CTAB Assessment and Plan Assessment Anesthesia Assessment: Anesthesia Plan Discussed Final Anesthetic Review Family History of Problems with Anesthesia: No History of Problems with Anesthesia: Yes (Patient states 'stopped breathing' with shoulder surgery at [facility] 2019 ?cardiac arrest. Had to be intubated and 'brought back'. ?Cpr. No problems with other surgeries since. No records available. ?problems with intravascular local anesthesia or diaphragmatic affectation if blocked.) NPO: Yes ASA Class: III Final Preanesthetic Review: No Changes in Pt Med Stat, Meds/Allgs Chart Reviewed, Consent Obtained/Reviewed and Anes Risks/Benef Reviewed Patient Risk: Intermediate Procedure Risk: Low Assessment/Block/Sedation in SS: Assess/Block/Sedation-SS Anesthetic Plan Anesthetic Plan: GA Disposition: Standard PACU
[2023-04-25] VITALS (7 sets, daily range): BP systolic 127–166; BP diastolic 62–79; PULSE 80–86; RESP 14–18; TEMP 36.6–36.9; O2SAT 95–100; BMI 38.8
[2023-04-25] MEDS: Lactated Ringers 1,000 ML 100 ML IVCONT (09:39)
[2023-04-25 09:59] LABS: Glucose, Whole Blood 121 mg/dL (60-115)
--- NOTE | 2023-04-25 10:23 | MHC.SHP ---
Pre-Procedural Eval Section A Date of Service: 04/25/23 The patient is an INPATIENT: No Changes since office visit: Yes Patient answered all questions The History & Physical has been completed within 30 days and I have reviewed it.: Yes Section B Chief Complaint: Other giant cell arteritis Allergies: Allergies Allergy/AdvReac Type Severity Reaction Status Date / Time octopus Allergy Severe Anaphylaxis Verified 04/21/23 13:05 oxybutynin Allergy Severe Difficulty Verified 04/21/23 13:05 Swallowing tolterodine Allergy Severe Difficulty Verified 04/21/23 13:05 Swallowing aspirin Allergy Unknown anaphylaxis Verified 04/21/23 13:05 citalopram Allergy Unknown Unknown Verified 04/21/23 13:05 empagliflozin Allergy Unknown Unknown Verified 04/21/23 13:05 [From Jardiance] Fish Containing Products Allergy Unknown Unknown Verified 04/21/23 13:05 gabapentin Allergy Unknown hives Verified 04/21/23 13:05 hydrocodone [Vicodin] Allergy Unknown hives Verified 04/21/23 13:05 naproxen [Naprosyn] Allergy Unknown anaphylaxis Verified 04/21/23 13:05 oxycodone [Percocet] Allergy Unknown hives Verified 04/21/23 13:05 pregabalin [From Lyrica] Allergy Unknown Unknown Verified 04/21/23 13:05 sertraline Allergy Unknown Unknown Verified 04/21/23 13:05 shellfish derived Allergy Unknown Unknown Verified 04/21/23 13:05 peanut Allergy Anaphylaxis Verified 04/21/23 13:05 solifenacin AdvReac phlegm Verified 04/21/23 13:05 Vicodin Allergy Unknown hives Uncoded 04/21/23 13:05 Plan I have reviewed the history and physical and performed a pertinent physical examination on my patient. No changes have occurred unless specified. Time Spent With Patient Time: Total time managing care of this patient today ____ minutes.
--- NOTE | 2023-04-25 11:26 | W.PM.OPN ---
Operative Note Operative Note Date of Service: 04/25/23 Narrative: Operative note by [facility] Preoperative diagnosis:1. left temporal headache 2. rule out giant cell arteritis Postoperative diagnosis: same Procedure: left temporal artery biopsy Surgeon:Alo Franz M.D. [employer] Make Ready Worker: none Anesthesia: general Specimens: 1 Drains: none Estimated blood loss: minimal Indications: very pleasant 62-year-old female with history of left temporal headache. Old testing demonstrated elevated ESR and CRP. She now presents for left temporal artery biopsy. The patient has signed the informed consent after reviewing risks, complications, benefits, and alternatives previously discussed with the patient. The patient was given the opportunity to ask any additional questions or voice any concerns. All questions were answered to the patient's satisfaction. Procedure in detail: patient was brought to the operating room prior to which a time-out was called for patient identification site verification. Left temporal region was cleansed with Hibiclens. Incision was carried out just anterior to the year over the temporal artery pulse. Approximately a 3 cm incision was created. There was carried down through the skin fascial tissue and we were able to easily identify the temporal artery. We dissected this clear. Once this was accomplished we placed a 3-0 silk tie proximally and distally. We ligated this. Approximately a 2 cm specimen was sent. Wound was then thoroughly irrigated. Adequate hemostasis was obtained with electrocautery. Deep layer was reapproximated using 2-0 Polysorb skin with a 4-0 Monocryl and Exofin was used as a sterile dressing. This note is constructed using voice recognition software. While every effort has been made to ensure accuracy, proposal development manager errors may have been included. Thank you for allowing me to participate in the care of your patient. Yours sincerely, Alo Franz MD, FACS, R.P.V.I.
== END 2023-04-25 12:43 | disposition home or self-care (01) ==
PROVIDERS: PCP Hospitalist; Visit Provider Surgery Vascular Surgery
PROC: (CPT 37609; principal; 2023-04-25 10:50)
DX: M31.6 Other giant cell arteritis (principal); G89.4 Chronic pain syndrome; I10 Essential (primary) hypertension; E78.00 Pure hypercholesterolemia, unspecified; E11.43 Type 2 diabetes mellitus with diabetic autonomic (poly)neuropathy; K31.84 Gastroparesis; J45.909 Unspecified asthma, uncomplicated; G47.33 Obstructive sleep apnea (adult) (pediatric); E66.01 Morbid (severe) obesity due to excess calories; Z68.41 Body mass index [BMI] 40.0-44.9, adult; F41.1 Generalized anxiety disorder; F11.20 Opioid dependence, uncomplicated; Z89.512 Acquired absence of left leg below knee; Z79.84 Long term (current) use of oral hypoglycemic drugs; Z79.85 Long-term (current) use of injectable non-insulin antidiabetic drugs; Z79.01 Long term (current) use of anticoagulants; Z79.51 Long term (current) use of inhaled steroids; Z79.899 Other long term (current) drug therapy; Z88.5 Allergy status to narcotic agent; Z88.8 Allergy status to other drugs, medicaments and biological substances; Z98.890 Other specified postprocedural states
CPT/HCPCS: 37609; 82947; 88305; J0690; J2250; J2405; J2704; J2795; J3010

== ENCOUNTER → 2023-04-25 08:55 | Outpatient (BNV) | payer OTHER, SELFPAY | PROVIDERS: PCP Hospitalist; Visit Provider Surgery Vascular Surgery | DX: M31.6 Other giant cell arteritis (principal) | CPT/HCPCS: 37609 ==

== ENCOUNTER 2023-05-24 09:15 | Outpatient (REF) | payer OTHER, SELFPAY ==
[2023-05-24 12:35] LABS: Estimated Average Glucose 126 mg/dL
== END 2023-05-24 09:16 | disposition home or self-care (01) ==
LOC: HO.LAB 09:15
PROVIDERS: PCP Hospitalist; Visit Provider Nurse Practitioner
DX: R51.9 Headache, unspecified (principal); K21.9 Gastro-esophageal reflux disease without esophagitis; K31.84 Gastroparesis; E11.9 Type 2 diabetes mellitus without complications; E66.01 Morbid (severe) obesity due to excess calories; Z91.018 Allergy to other foods; Z88.9 Allergy status to unspecified drugs, medicaments and biological substances
CPT/HCPCS: 36415; 83036; 99212

== ENCOUNTER 2023-05-24 09:15 | Outpatient (AMB) | payer OTHER, SELFPAY ==
--- NOTE | 2023-05-24 09:19 | MHC.OFFVIS ---
Intake Vital Signs 05/24/23 09:26 Height 5 ft 2 in Weight 207 lb 3.752 oz BMI 37.9 BP 156/72 H Blood Pressure Location Lt brachial Position Sitting Pulse 80 Intake Visit Reasons: 2 month follow up Intake Note: Patient presents to in office visit today in 2 months follow up of gastroparesis. CC: Patient reports she has been having regular BMs. She c/o vomiting about 4 times per week, dizziness, and losing her balance. Live Ammunition Inspector Required: No Accompanied by: Self / Same As Patient Allergies octopus Allergy (Severe, Verified 05/24/23 10:56) Anaphylaxis oxybutynin Allergy (Severe, Verified 05/24/23 10:56) Difficulty Swallowing tolterodine Allergy (Severe, Verified 05/24/23 10:56) Difficulty Swallowing aspirin Allergy (Unknown, Verified 05/24/23 10:56) anaphylaxis citalopram Allergy (Unknown, Verified 05/24/23 10:56) Unknown empagliflozin [From Jardiance] Allergy (Unknown, Verified 05/24/23 10:56) Unknown Fish Containing Products Allergy (Unknown, Verified 05/24/23 10:56) Unknown gabapentin Allergy (Unknown, Verified 05/24/23 10:56) hives hydrocodone [Vicodin] Allergy (Unknown, Verified 05/24/23 10:56) hives naproxen [Naprosyn] Allergy (Unknown, Verified 05/24/23 10:56) anaphylaxis oxycodone [Percocet] Allergy (Unknown, Verified 05/24/23 10:56) hives pregabalin [From Lyrica] Allergy (Unknown, Verified 05/24/23 10:56) Unknown sertraline Allergy (Unknown, Verified 05/24/23 10:56) Unknown shellfish derived Allergy (Unknown, Verified 05/24/23 10:56) Unknown peanut Allergy (Verified 05/24/23 10:56) Anaphylaxis solifenacin Adverse Reaction (Verified 05/24/23 10:56) phlegm Vicodin Allergy (Unknown, Uncoded 05/24/23 10:56) hives HPI 2 month follow up HPI Details Assessment & Plan (1) GERD (gastroesophageal reflux disease): Code(s): K21.9 - Gastro-esophageal reflux disease without esophagitis (2) Multiple drug allergies: Code(s): Z88.9 - Allergy status to unspecified drugs, medicaments and biological substances (3) Multiple food allergies: Code(s): Z91.018 - Allergy to other foods (4) Gastroparesis: Code(s): K31.84 - Gastroparesis (5) Diabetes mellitus: Code(s): E11.9 - Type 2 diabetes mellitus without complications Plan I review the med list from her PCP and she has been on reglan in the past and tolerated it. BUT she was only taking it BID along with zofran. I will stop zofran and expand metoclompramide dosing to qid scheduled. She still struggles with CIC but she was given senna from her PCP and with the Miralax she is moving her bowels 3 times a day. She feels better with this. She continues to have early satiety, pressure at the epigastrum and intermittent vomiting. I still have not received the records from [facility], and I really need these. ROV May to titrate reglan etc. and review [facility] records. Orders: Orders Hemoglobin A1c 04/05/23 K31.84 - Gastropar esis, E11.9 - Type 2 diabetes mellit us without complic ations Medications: Changed From metoclopramide HCl 10 mg PO Q6H PRN 10 tabs 0RF nausea and vomiting K31.84 - Gastropar esis To metoclopramide HCl (Reglan) 10 mg PO QID 120 t abs 3RF gastropare sis K31.84 - Gastropar esis Discontinued metoclopramide HCl Discontinued R rosanne: Doctor's O rder 10 mg PO Q6H PRN 20 tabs 0RF nausea and vomiting ondansetron Dis continued Reason: Patient Completed Course 4 mg PO Q8H PRN 1 0 tabs 0RF nausea and vomiting LABS: Not obtained not obtained TODAY'S VISIT She is still having nausea and vomiting about twice a day, often in the AM and in the after noon. However, she does feel it is much improved since we started the reglan and she is not having any adverse effects. Since she does have a large BMI I will give her a total of 6 doses a day to see if this helps better. She is also on a very large dose of Trulicity which has gastric stasis s/e. She says she is moving her bowels well, 203 times a day of formed stool and she feels complete evacuation. She is losing weight r/t intentional dieting, about 30 lbs now. She is doing portion control, limiting fats and eating more healthfully. She lost a leg to diabetes, so she is serious about this. Will go for her A1C today, she shows me her glucometer and it appears her recent average blood glucose os 137. I also received the records from [facility], all 48 pages! she DID have a very abnormal GES there with >56% retention and a large amt of food in the stomach after EGD. She got a puppy for [employer], its a terrier mix! He is a handful. ROV 6 weeks. FOR[facility]LY [facility], [facility] Medical History Gastroparesis COVID-19 UTI (urinary tract infection) Amputated toe of right foot History of left below knee amputation Ganglion cyst Urinary incontinence HTN (hypertension) Diabetes mellitus Urinary incontinence Surgical History S/P carpal tunnel release History of surgical removal of ganglion cyst S/P rotator cuff repair History of surgery Social History Alcohol intake: never Patient Tobacco Use Status: Never used Tobacco Substance Use Type: Marijuana Review of Systems Const Denies fatigue, Denies fever(s), Denies night sweats, Denies poor appetite and Reports weight loss (Intentional dieting) Eyes Details: glasses Reports requires corrective lenses ENT Reports Normal hearing present, Denies dental pain, Denies dysphagia, Denies hearing loss, Denies mouth pain, Denies odynophagia, Denies throat swelling, Denies tongue swelling and Reports other (Dentition adequate) Card Reports no additional complaints Resp Reports no additional complaints GI Denies abdominal pain, Denies melena, Denies bloating, Denies hematochezia, Denies constipation, Denies GI cramping, Denies dysphagia, Denies excessive flatus, Reports early satiety, Reports heartburn, Denies diarrhea, Reports nausea, Denies odynophagia, Denies vomiting and Denies hematemesis Skin/Breast Denies pruritus, Denies lesions, Denies rash and Denies jaundice Neuro Reports Normal hearing present and Denies Abnormal speech present Endo Denies fatigue Aller/Immun Denies throat swelling and Denies tongue swelling Physical Exam Vital Signs: Last Vital Signs Pulse 80 05/24/23 09:26 BP 156/72 H 05/24/23 09:26 BMI result Body Mass Index 37.9 Const General: cooperative, no acute distress, well developed and well groomed Nutritional Appearance: well nourished and obese morbidly obese Orientation/consciousness: oriented to person, oriented to place and oriented to time Limitations: No language barrier HEENT Head: Yes normocephalic and Yes atraumatic Eyes General: appearance normal, both eyes and all related structures Pupils: Equal, round and reactive pupils present Neck Neck: Yes normal visual inspection and Yes no lymphadenopathy Thyroid: Thyroid normal Resp Effort & Inspection: normal respiratory effort and able to speak in complete sentences Auscultation: clear to auscultation bilaterally Cardio Rate: regular rate Rhythm: regular rhythm Heart sounds: Normal, physiologic split S2 sound present Peripheral pulses: radial pulses present and posterior tibial pulses present GI Inspection: No distended, Yes Abdominal panniculus present and Yes obesity Palpation (GI): Soft to palpation, nontender, no guarding, not rigid and No hepatosplenomegaly present Percussion: Yes normal to percussion Auscultation: normal bowel sounds Rectal Exam - Female: deferred Skin General skin exam: no rashes or lesions noted, turgor normal, skin not dry, no jaundice, No spider nevi and no striae Rashes: no rashes Nails: normal Neuro General: oriented to person, oriented to place and oriented to time Cranial nerves: Yes Equal, round and reactive pupils present and Yes Normal hearing present Speech: No Abnormal speech present Extrem General: Yes normal to inspection, No clubbing, No cyanosis and No edema Psych Appearance: grossly normal and well kempt Mental Status: mental status grossly normal Speech and movement: Normal speech and movement present Affect: normal affect Attitude: cooperative Thought process: Normal thought process present and not confabulating Thought content: Normal thought content present Insight: Fair insight present (Psych) and Limited insight present (Psych) Judgement: Fair judgement present (Psych) and Limited judgement present (Psych) Assessment & Plan Assessment & Plan (1) GERD (gastroesophageal reflux disease): Code(s): K21.9 - Gastro-esophageal reflux disease without esophagitis (2) Multiple drug allergies: Code(s): Z88.9 - Allergy status to unspecified drugs, medicaments and biological substances (3) Multiple food allergies: Code(s): Z91.018 - Allergy to other foods (4) IDDM (insulin dependent diabetes mellitus): (5) Morbid obesity: Code(s): E66.01 - Morbid (severe) obesity due to excess calories (6) Gastroparesis: Code(s): K31.84 - Gastroparesis Plan She is still having nausea and vomiting about twice a day, often in the AM and in the after noon. However, she does feel it is much improved since we started the reglan and she is not having any adverse effects. Since she does have a large BMI I will give her a total of 6 doses a day to see if this helps better. She is also on a very large dose of Trulicity which has gastric stasis s/e. She continues on her omeprazole 20 mg once a day as well. She says she is moving her bowels well, 203 times a day of formed stool and she feels complete evacuation. She is losing weight r/t intentional dieting, about 30 lbs now. She is doing portion control, limiting fats and eating more healthfully. She lost a leg to diabetes, so she is serious about this. Will go for her A1C today, she shows me her glucometer and it appears her recent average blood glucose os 137. I also received the records from [facility], all 48 pages! she DID have a very abnormal GES there with >56% retention and a large amt of food in the stomach after EGD. She got a puppy for [employer], its a terrier mix! He is a handful. ROV 6 weeks. Medications: New omeprazole 20 mg PO DAILY 30 caps 6RF Changed From metoclopramide HCl (Reglan) 10 mg PO QID 120 tabs 3RF gastroparesis K31.84 - Gastroparesis To metoclopramide HCl (Reglan) 10 mg PO .six times a day 180 tabs 6RF gastroparesis K31.84 - Gastroparesis Coding Level of Care Code Est Pt Level 3 (10541) Diagnoses GERD (gastroesophageal reflux disease) K21.9 Multiple drug allergies Z88.9 Multiple food allergies Z91.018 IDDM (insulin dependent diabetes mellitus) Morbid obesity E66.01 Gastroparesis K31.84
[2023-05-24 09:26] VITALS: BP 156/72; PULSE 80; BMI 37.9
== END 2023-05-24 10:20 | disposition home or self-care (01) ==
PROVIDERS: PCP Hospitalist; Referring Provider Hospitalist; Visit Provider Nurse Practitioner
DX: K21.9 Gastro-esophageal reflux disease without esophagitis (principal); Z88.9 Allergy status to unspecified drugs, medicaments and biological substances; Z91.018 Allergy to other foods; E66.01 Morbid (severe) obesity due to excess calories; K31.84 Gastroparesis
CPT/HCPCS: 99213

== ENCOUNTER 2023-05-24 10:54 | Outpatient (AMB) | payer OTHER, SELFPAY ==
--- NOTE | 2023-05-24 10:53 | A.OFFVIS_ITS ---
Intake Vital Signs 05/24/23 10:54 Height 5 ft 2 in Weight 207 lb BMI 37.9 BP 126/78 Blood Pressure Location Lt brachial Position Sitting Pulse 87 Pulse Source Pulse Oximeter Pulse Oximetry (%) 100 Oxygen Delivery Method Room Air Intake Visit Reasons: Temporal Biopsy pain Intake Note: Pt presents to the office today for temporal biopsy pain. Pt states she has a burning sensation in her left ear that is constantly there. Pt states it wakes her up in the middle of the night. Pt states the inside of her ear is also painful. Allergies octopus Allergy (Severe, Verified 05/24/23 10:56) Anaphylaxis oxybutynin Allergy (Severe, Verified 05/24/23 10:56) Difficulty Swallowing tolterodine Allergy (Severe, Verified 05/24/23 10:56) Difficulty Swallowing aspirin Allergy (Unknown, Verified 05/24/23 10:56) anaphylaxis citalopram Allergy (Unknown, Verified 05/24/23 10:56) Unknown empagliflozin [From Jardiance] Allergy (Unknown, Verified 05/24/23 10:56) Unknown Fish Containing Products Allergy (Unknown, Verified 05/24/23 10:56) Unknown gabapentin Allergy (Unknown, Verified 05/24/23 10:56) hives hydrocodone [Vicodin] Allergy (Unknown, Verified 05/24/23 10:56) hives naproxen [Naprosyn] Allergy (Unknown, Verified 05/24/23 10:56) anaphylaxis oxycodone [Percocet] Allergy (Unknown, Verified 05/24/23 10:56) hives pregabalin [From Lyrica] Allergy (Unknown, Verified 05/24/23 10:56) Unknown sertraline Allergy (Unknown, Verified 05/24/23 10:56) Unknown shellfish derived Allergy (Unknown, Verified 05/24/23 10:56) Unknown peanut Allergy (Verified 05/24/23 10:56) Anaphylaxis solifenacin Adverse Reaction (Verified 05/24/23 10:56) phlegm Vicodin Allergy (Unknown, Uncoded 05/24/23 10:56) hives HPI Temporal Biopsy pain HPI Details Very pleasant 62-year-old female presents for evaluation regarding pain towards her left temporal region. She actually underwent left temporal artery biopsy almost a month ago on 04/25/2023. Upon discussion with her she describes this as more of an inner ear pain and postauricular pain. She does not have any issues with the incision line. She now presents for follow-up evaluation. Of note pathology results were negative for temporal arteritis [facility] Medical History Gastroparesis COVID-19 UTI (urinary tract infection) Amputated toe of right foot History of left below knee amputation Ganglion cyst Urinary incontinence HTN (hypertension) Diabetes mellitus Urinary incontinence Surgical History S/P carpal tunnel release History of surgical removal of ganglion cyst S/P rotator cuff repair History of surgery Social History Alcohol intake: never Patient Tobacco Use Status: Never used Tobacco Substance Use Type: Marijuana Review of Systems Const All systems reviewed & are unremarkable except as noted in HPI and below Reports no additional complaints ENT Reports Normal hearing present Card Denies chest pain, Denies chest pain at rest, Denies chest pain with activity and Denies pedal edema Resp Denies cough GI Denies abdominal pain Musc Denies abnormal gait, Denies muscle cramps and Denies radiating pain into limb Skin/Breast Denies skin ulcer and Denies wounds Neuro Reports Normal hearing present and Denies abnormal gait Psych Reports no additional complaints Physical Exam Vital Signs: Last Vital Signs Pulse 87 05/24/23 10:54 BP 126/78 05/24/23 10:54 Pulse Ox 100 05/24/23 10:54 Oxygen Delivery Method Room Air 05/24/23 10:54 BMI result Body Mass Index 37.9 Const General: cooperative, healthy appearing and comfortable Orientation/consciousness: oriented to person, oriented to place and oriented to time HEENT Head: Yes normal to inspection Neck Neck: Yes normal visual inspection Carotids: no bruits Chest Chest palpation & inspection: normal inspection of the chest Resp Effort & Inspection: normal respiratory effort and able to speak in complete sentences Auscultation: clear to auscultation bilaterally, no crackles, no rales, no rhonchi and no wheezes Cardio Rate: regular rate Rhythm: regular rhythm Heart sounds: S1 normal heart sound present and S2 normal heart sound present Bruits: no carotid bruits Peripheral pulses: Peripheral pulses 2+ throughout GI Inspection: Yes normal to inspection Skin Other: Incision well healed Wounds: no wounds Hair: normal Neuro General: oriented to person, oriented to place and oriented to time Cranial nerves: Yes CN's II-XII intact bilaterally and Yes Normal hearing present Cognition (Neuro): normal cognition Motor exam (neuro): 5/5 motor strength present throughout Extrem Other: venous exam: No significant superficial varicosities or spider telangiectasias, minimal edema General: No clubbing, No cyanosis and No edema Psych Appearance: grossly normal Mental Status: mental status grossly normal Speech and movement: Normal speech and movement present Assessment & Plan Assessment & Plan (1) Headache: Code(s): R51.9 - Headache, unspecified Plan: In short pain does not appear to be related to surgery. Her incision line site is well healed and that is not the source of her pain. She describes in her ear pain which was actually present prior to the surgery according to the patient. She appears to be doing well from a surgical standpoint. She will follow up w ith us on an as-needed basis. Thank you for allowing us to assist in her care. If there are any questions or concerns please do not hesitate to contact us. Coding Level of Care Code Est Pt Level 4 (93592) Diagnoses Headache R51.9
[2023-05-24 10:54] VITALS: BP 126/78; PULSE 87; O2SAT 100; BMI 37.9
== END 2023-05-24 11:14 | disposition home or self-care (01) ==
PROVIDERS: PCP Hospitalist; Visit Provider Surgery Vascular Surgery
DX: R51.9 Headache, unspecified (principal)
CPT/HCPCS: 99213

== ENCOUNTER 2023-05-30 13:11 | Emergency (ER) | payer OTHER, SELFPAY ==
--- NOTE | ~2023-05-30 | CT_ITS ---
EXAMINATION: CT HEAD WITHOUT CONTRAST CLINICAL INFORMATION: Headache dizziness COMPARISON: CT head from 07/02/2022 TECHNIQUE: Contiguous axial imaging was performed from the skull base to vertex without intravenous administration of contrast. This CT examination was performed using dose optimization techniques as appropriate, variously including the following: *Automated exposure control *Adjustment of mA and/or kV according to patient size (this includes techniques or standardized protocols for targeted exams where dose is matched to indication/reason for exam; i.e. extremities or head) *Use of iterative reconstruction technique DLP: 637 mGy-cm FINDINGS: There is no evidence of acute intracranial hemorrhage or territorial infarction. Chronic white matter small vessel ischemic changes. Mild cerebral atrophy with commensurate ventricular changes. No abnormal mass effect or midline shift is seen. Benitez to white matter differentiation is well preserved. No extra-axial fluid collections are identified. The ventricles are normal in size. There is no abnormal attenuation within the brain parenchyma. The osseous structures and soft tissues are normal. The mastoid air cells and visualized portions of the paranasal sinuses are well aerated. As described calcifications are noted. CT/CT head/brain wo IV con IMPRESSION: 1. No acute intracranial pathology. 2. Chronic white matter small vessel ischemic changes.
--- NOTE | 2023-05-30 13:26 | ED.GENADULT ---
HPI - General Adult General Chief complaint: Dizziness Stated complaint: Feels off balanced/dizziness Time Seen by Provider: 05/30/23 20:37 Source: patient Mode of arrival: ambulatory Limitations: no limitations History of Present Illness HPI narrative: Patient is a 62 year old assigned female at with a history of DM and CKD presenting to the emergency department today with dizziness and feeling off balance since waking up. Patient states that ever since she woke up she has felt some what dizzy and off balance. Patient denies any lightheadedness, abdominal pain, nausea, vomiting, fever, chills, blurry vision, double vision, loss of vision, chest pain, difficulty breathing, shortness of breath, back pain, night sweats, pain with urination, increased urinary frequency, increased urinary urgency, blood in her urine or stool, syncope or a near syncopal episode, recent trauma or falls, bowel incontinence, bladder incontinence, bowel retention, bladder retention, or any other complaints at this time. Onset (ago): hour(s) Severity: mild Relieving factors: none Exacerbating factors: none Associated symptoms: denies other symptoms Treatments prior to arrival: none Related Data Home Medications Medication Instructions Recorded Confirmed alcohol swabs pad topical TID 10/16/20 amlodipine 5 mg tablet 5 mg PO DAILY 10/16/20 apixaban 5 mg tablet 5 mg PO BID 10/16/20 04/25/23 atorvastatin 10 mg tablet 10 mg PO DAILY 10/16/20 blood sugar diagnostic #10 ea 10/16/20 cholecalciferol (vitamin D3) 50 50 mcg PO BEDTIME 10/16/20 mcg (2,000 unit) capsule citalopram 40 mg tablet 40 mg PO DAILY 10/16/20 04/25/23 diclofenac sodium 1 % topical gel g topical 10/16/20 fluticasone propionate 50 0 mcg intranasal BID 10/16/20 mcg/actuation nasal spray,suspension hydrochlorothiazide 25 mg tablet 25 mg PO QAM 10/16/20 lancets 30 gauge #100 ea 10/16/20 loratadine 10 mg tablet 10 mg PO DAILY 10/16/20 losartan 100 mg tablet 100 mg PO DAILY 10/16/20 metoprolol succinate 100 mg 100 mg PO DAILY 10/16/20 tablet,extended release 24 hr montelukast 10 mg tablet 10 mg PO DAILY 10/16/20 oxycodone 30 mg tablet 30 mg PO TID PRN 10/16/20 pen needle, diabetic 32 gauge x #50 ea 10/16/20 temazepam 30 mg capsule 30 mg PO BEDTIME PRN 10/16/20 triamcinolone acetonide 0.025 % appl topical 10/16/20 topical cream tizanidine 4 mg tablet 4 mg PO TID PRN 12/11/20 12/11/20 benzonatate 100 mg capsule 100 mg PO TID 08/14/21 insulin glargine 100 unit/mL (3 unit subcut BEDTIME 08/14/21 mL) subcutaneous pen (Lantus Solostar U-100 Insulin) insulin lispro 100 unit/mL 30 unit subcut TID 08/14/21 subcutaneous pen metronidazole 0.75 % (37.5 mg/5 1 appful vaginal BEDTIME 08/14/21 gram) vaginal gel dulaglutide 4.5 mg/0.5 mL mg subcut 12/15/21 subcutaneous pen injector (Trulicity) empagliflozin 10 mg tablet 10 mg PO QAM 12/15/21 (Jardiance) ezetimibe 10 mg tablet 10 mg PO DAILY 01/13/23 fluocinonide 0.05 % topical cream appl topical DAILY 01/13/23 hydroxyzine HCl 25 mg tablet 25 mg PO DAILY 01/13/23 lorazepam 1 mg tablet 1 mg PO BID 01/13/23 metformin 850 mg tablet 850 mg PO BID 01/13/23 Previous Rx's Medication Instructions Recorded incontinence pad, liner, disp #90 ea 11/13/21 (Poise Pads) albuterol sulfate 90 mcg/actuation 1 inh inhalation QID PRN shortness 06/06/22 aerosol inhaler of breath or wheezing #8.5 grams diphenhydramine HCl 25 mg capsule 25 mg PO TID PRN headache #20 caps 07/02/22 (Benadryl) lidocaine 5 % topical patch 1 patch topical DAILY PRN pain #15 07/02/22 ea vibegron 75 mg tablet (Gemtesa) 75 mg PO DAILY 90 days #90 tabs 07/07/22 nystatin 100,000 unit/gram topical 1 appl topical TID 30 days #30 01/13/23 powder grams disposable gloves (Nitrile Exam #50 ea 02/15/23 Gloves) incontinence pad, liner, disp #180 ea 02/15/23 underpads (Bed Underpads) #90 ea 02/15/23 metoclopramide HCl 10 mg tablet 10 mg PO .six times a day 05/24/23 (Reglan) gastroparesis #180 tabs omeprazole 20 mg capsule,delayed 20 mg PO DAILY #30 caps 05/24/23 release Allergies Allergy/AdvReac Type Severity Reaction Status Date / Time octopus Allergy Severe Anaphylaxis Verified 05/30/23 13:26 oxybutynin Allergy Severe Difficulty Verified 05/30/23 13:26 Swallowing tolterodine Allergy Severe Difficulty Verified 05/30/23 13:26 Swallowing aspirin Allergy Unknown anaphylaxis Verified 05/30/23 13:26 citalopram Allergy Unknown Unknown Verified 05/30/23 13:26 empagliflozin Allergy Unknown Unknown Verified 05/30/23 13:26 [From Jardiance] Fish Containing Products Allergy Unknown Unknown Verified 05/30/23 13:26 gabapentin Allergy Unknown hives Verified 05/30/23 13:26 hydrocodone [Vicodin] Allergy Unknown hives Verified 05/30/23 13:26 naproxen [Naprosyn] Allergy Unknown anaphylaxis Verified 05/30/23 13:26 oxycodone [Percocet] Allergy Unknown hives Verified 05/30/23 13:26 pregabalin [From Lyrica] Allergy Unknown Unknown Verified 05/30/23 13:26 sertraline Allergy Unknown Unknown Verified 05/30/23 13:26 shellfish derived Allergy Unknown Unknown Verified 05/30/23 13:26 peanut Allergy Anaphylaxis Verified 05/30/23 13:26 solifenacin AdvReac phlegm Verified 05/30/23 13:26 Vicodin Allergy Unknown hives Uncoded 05/30/23 13:26 Review of Systems Constitutional: Constitutional: Reports no additional constitutional complaints, Denies chills, Denies fever(s) and Denies night sweats Eyes: Eyes: Reports no additional eye complaints, Denies blurry vision, Denies change in vision, Denies diplopia, Denies eye discharge, Denies loss of vision and Denies eye pain ENT: Reports dizziness Cardiovascular: Cardiovascular: Reports no additional cardiovascular complaints, Denies chest pain, Denies lightheadedness, Denies Loss of Consciousness and Denies dyspnea Respiratory: Respiratory: Reports no additional respiratory complaints and Denies dyspnea Gastrointestinal: Gastrointestinal: Reports no additional gastrointestinal complaints, Denies abdominal pain, Denies melena, Denies hematochezia, Denies change in bowel habits and Denies change in stool character Genitourinary: Genitourinary: Denies hematuria, Denies urinary frequency, Denies dysuria, Denies urinary incontinence, Denies urinary hesitancy and Denies urinary urgency Musculoskeletal: Musculoskeletal: Reports no additional musculoskeletal complaints, Denies numbness and Denies tingling Neurologic: Reports dizziness, Denies loss of vision, Denies numbness and Denies tingling Psychiatric: Psychiatric: Reports no additional psychiatric complaints Endocrine: Endocrine: Reports no additional endocrine complaints Hematologic/Lymphatic: Hematologic/Lymphatic: Reports no additional hematologic/lymphatic complaints Allergic/Immunologic: Allergic/Immunologic: Reports no additional allergic/immunologic complaints PMFSH Past Medical History Attestation statement: The following information was validated with the patient. Source: old records reviewed and nursing notes reviewed Medical History Gastroparesis COVID-19 UTI (urinary tract infection) Amputated toe of right foot History of left below knee amputation Ganglion cyst Urinary incontinence HTN (hypertension) Diabetes mellitus Urinary incontinence Surgical History S/P carpal tunnel release History of surgical removal of ganglion cyst S/P rotator cuff repair History of surgery Social History Social History Alcohol intake: never Patient Tobacco Use Status: Never used Tobacco Substance Use Type: Marijuana Advance Directives: No Advance Directives Information Provided: No Physical Exam ED Vital Signs: Vital Signs - 24 hr 05/30/23 13:27 05/30/23 16:55 Temperature 98 F 97.6 F Pulse Rate 81 80 Respiratory Rate 18 16 Blood Pressure 144/71 H 138/71 Pulse Oximetry 99 97 Oxygen Delivery Method Room Air Room Air BMI result Body Mass Index 36.2 Const General: cooperative, no acute distress, alert and awake Nutritional Appearance: well nourished Orientation/consciousness: patient oriented x3 Limitations: no limitations HENMT Head: Yes normal to inspection and Yes atraumatic Ears: hearing grossly normal bilaterally and external ears normal General nose exam: Normal external nose present, no nasal discharge noted and no epistaxis Face and sinus: Yes normal facial exam, No abrasion and No laceration Mouth: Normal oral and palatal mucosa present, no drooling and no muffled voice Eyes General: appearance normal, both eyes and all related structures Periorbital: periorbital findings normal Eyelids: Yes eyelids normal Conjunctivae: conjunctivae normal Pupils: Equal, round and reactive pupils present EOM: EOMs intact bilaterally Neck Neck: Yes normal visual inspection, Yes full ROM and Yes no lymphadenopathy Chest Chest palpation & inspection: normal inspection of the chest Resp Effort & Inspection: normal respiratory effort and able to speak in complete sentences GI Inspection: Yes normal to inspection Neuro General: patient oriented x3 and moves all extremities Cranial nerves: Yes Equal, round and reactive pupils present Cognition (Neuro): normal cognition Motor exam (neuro): 5/5 motor strength present throughout Sensory Exam: Normal double simultaneous stimulation for sensation Coordination: [id number] test normal Extrem General: Yes normal to inspection, Yes full ROM and Yes capillary refill normal Psych Appearance: grossly normal Mental Status: mental status grossly normal Affect: normal affect Attitude: cooperative Thought process: Normal thought process present Thought content: Normal thought content present Insight: Good insight present (Psych) Course Course Course Narrative: RME performed by Maria E Montes PA-C. Patient is a 62 year old assigned female at presenting to the emergency department with dizziness and feeling off balance. Detailed physical exam and review of systems are deferred to the reinspector. [\Labs, imaging, and swabs ordered. Patient placed back in the waiting room pending room availability and results. Medical Decision Making Medical Decision Making MDM Narrative: Patient is a 62 year old assigned female at with a history of DM and CKD presenting to the emergency department today with dizziness and feeling off balance. Patient's limited physical exam performed in triage was unremarkable. Patient had no neurologic deficits. Patient's blood work was unremarkable. Patient's EKG was unremarkable. Patient's head CT showed no acute process. Patient left the department without completing treatment. Patient left the department before myself or any of the other emergency clinicians could review or explain physical exam findings, test results, need or lack there of for additional testing, treatment options, or any treatment plans. Differential Diagnosis Differential Diagnoses: The differential diagnosis associated with the presentation includes Dizziness Admission/Observation Consideration of admission/observation: Escalation of care including admission/observation considered Patient would have been admitted to the hospital had her work up had any findings where hospital admission was appropriate, her clinical presentation warranted hospital admission, and she hadn't left the department. Lab Data [facility] Lab Attestation statement: I reviewed the patient's lab results. My interpretation of these results are in the MDM Rationale portion of this note. 05/30/23 14:55 05/30/23 14:55 Labs: Lab Results 05/30/23 Range/Units 14:55 WBC 11.2 H (4.8-10.8) X10*3/uL RBC 4.70 (4.20-5.50) X10*6/uL Hgb 14.4 (12.0-16.0) g/dl Hct 42.5 (37.0-47.0) % MCV 90.4 (80.0-98.0) fL MCH 30.6 (27.0-33.0) pg MCHC 33.9 (31.0-35.0) g/dl RDW 13.6 (11.0-16.0) % Plt Count 260 (160-400) X10*3/uL MPV 9.1 L (9.4-12.3) fL Immature Gran % (Auto) 0.3 (0.0-0.4) % Neut % (Auto) 54.1 (45-73) % Lymph % (Auto) 36.5 (20-40) % [place] % (Auto) 6.0 (2-11) % Eos % (Auto) 2.7 (0-4) % Baso % (Auto) 0.4 (0-2) % Lymph # (Auto) 4.1 (1.2-4.9) X10*3/uL [place] # (Auto) 0.7 (0.1-1.2) X10*3/uL Eos # (Auto) 0.3 (0.0-0.4) X10*3/uL Baso # (Auto) 0.0 (0.0-0.2) X10*3/uL Abs Immat Gran (auto) 0.03 (0.00-0.03) X10*3/uL Absolute Neuts (auto) 6.1 (2.0-8.3) x10*3/uL Absolute Nucleated RBC 0.000 (0.0-0.012) X10*3/uL Nucleated RBC % (auto) 0.0 (0.0-0.2) /100WBC Sodium 140 (135-145) mmol/L Potassium 3.8 (3.3-5.1) mmol/L Chloride 102 (96-108) mmol/L Carbon Dioxide 29 (22-29) mmol/L Anion Gap 13 (12-20) BUN 24 H (9-16) mg/dL Creatinine 1.23 (0.5-1.4) mg/dL Estim Creat Clear Calc 50.7 Estimated GFR 45 Random Glucose 82 (60-115) mg/dL Calcium 9.7 (8.4-10.2) mg/dL Magnesium 2.0 (1.6-2.6) mg/dL Total Bilirubin 0.5 (0.0-1.0) mg/dL AST 16 (5-31) U/L ALT 20 (0-31) U/L Alkaline Phosphatase 86 (39-117) U/L Troponin I High Sens < 2.7 (<3.5-17.0) ng/L Total Protein 7.2 (6.5-8.0) g/dL Albumin 4.2 (3.5-5.0) g/dL COVID-19 (ANN) Negative (Negative) COVID-19 Clin Com See Note Influenza Type A ([facility]) Negative (Negative) Influenza Type B ([place]) Negative (Negative) Influenza A & B Note See Note Independent Interpretation I performed an independent interpretation of an: EKG and CT Scan Interpretation: My interpretation is in agreement with the radiologist's impression of this imaging study. EXAMINATION: CT HEAD WITHOUT CONTRAST CLINICAL INFORMATION: Headache dizziness COMPARISON: CT head from 07/02/2022 TECHNIQUE: Contiguous axial imaging was performed from the skull base to vertex without intravenous administration of contrast. This CT examination was performed using dose optimization techniques as appropriate, variously including the following: *Automated exposure control *Adjustment of mA and/or kV according to patient size (this includes techniques or standardized protocols for targeted exams where dose is matched to indication/reason for exam; i.e. extremities or head) *Use of iterative reconstruction technique DLP: 637 mGy-cm FINDINGS: There is no evidence of acute intracranial hemorrhage or territorial infarction. Chronic white matter small vessel ischemic changes. Mild cerebral atrophy with commensurate ventricular changes. No abnormal mass effect or midline shift is seen. Benitez to white matter differentiation is well preserved. No extra-axial fluid collections are identified. The ventricles are normal in size. There is no abnormal attenuation within the brain parenchyma. The osseous structures and soft tissues are normal. The mastoid air cells and visualized portions of the paranasal sinuses are well aerated. As described calcifications are noted. CT/CT head/brain wo IV con IMPRESSION: 1. No acute intracranial pathology. 2. Chronic white matter small vessel ischemic changes. Dictated By: Delia Martínez MD Signed By: Electronically signed by Delia Martínez MD 05/30/23 1540 Vent. Rate: 076 BPM Atrial Rate: 076 BPM P-R Int: 144 ms QRS Dur: 088 ms QT Int: 404 ms P-R-T Axes: -03 011 011 degrees QTc Int: 454 ms Normal sinus rhythm Normal ECG When compared with ECG of 02-JUL-2022 19:11, No significant change was found DD/ 1427 Radiology Impression Discussion of test interpretation with radiology: I have reviewed the radiologist's reading. Discharge Plan Discharge Clinical Impression: Dizziness Patient Disposition: Left W/O Completing Treatment Prescriptions: No Action Gemtesa 75 mg tablet 75 mg PO DAILY 90 Days Qty: 90 1RF (DME) disposable gloves [Nitrile Exam Gloves] Misc See Rx Instructions .Route Qty: 50 11RF Rx Instructions: As directed- pt requesting size XL (DME) incontinence pad, liner, disp Pad See Rx Instructions .ROUTE .MEDSUPPLY Qty: 180 11RF Rx Instructions: As directed- pt requesting 6 per day (DME) underpads [Bed Underpads] Pad See Rx Instructions .Route Qty: 90 11RF Rx Instructions: As directed- pt requesting 3 per night albuterol sulfate 90 mcg/actuation HFA aerosol inhaler 1 inh inhalation QID PRN (Reason: shortness of breath or wheezing) Qty: 8.5 0RF diphenhydramine HCl [Benadryl] 25 mg capsule 25 mg PO TID PRN (Reason: headache) Qty: 20 0RF lidocaine 5 % adhesive patch,medicated 1 patch topical DAILY PRN (Reason: pain) Qty: 15 0RF Rx Instructions: leave on most painful area for up to 12 hrs (DME) lancets 30 gauge misc See Rx Instructions .ROUTE TID Qty: 100 Rx Instructions: As directed (DME) pen needle, diabetic 32 gauge x 5/32 needle See Rx Instructions .ROUTE .MEDSUPPLY Qty: 50 Rx Instructions: As directed cholecalciferol (vitamin D3) 50 mcg (2,000 unit) capsule 50 mcg PO BEDTIME diclofenac sodium 1 % gel topical loratadine 10 mg tablet 10 mg PO DAILY fluticasone propionate 50 mcg/actuation spray,suspension 0 mcg intranasal BID losartan 100 mg tablet 100 mg PO DAILY hydrochlorothiazide 25 mg tablet 25 mg PO QAM alcohol swabs Pads, Medicated topical TID montelukast 10 mg tablet 10 mg PO DAILY temazepam 30 mg capsule 30 mg PO BEDTIME PRN amlodipine 5 mg tablet 5 mg PO DAILY (DME) FreeStyle Lite Strips Strip See Rx Instructions Not Applicable TID Qty: 10 Rx Instructions: As directed metoprolol succinate 100 mg tablet extended release 24 hr 100 mg PO DAILY atorvastatin 10 mg tablet 10 mg PO DAILY citalopram 40 mg tablet 40 mg PO DAILY Eliquis 5 mg tablet 5 mg PO BID oxycodone 30 mg tablet 30 mg PO TID PRN triamcinolone acetonide 0.025 % cream topical tizanidine 4 mg tablet 4 mg PO TID PRN benzonatate 100 mg capsule 100 mg PO TID metronidazole 0.75 % gel 1 appful vaginal BEDTIME Lantus Solostar U-100 Insulin 100 unit/mL (3 mL) insulin pen subcut BEDTIME insulin lispro 100 unit/mL insulin pen 30 unit subcut TID Trulicity 4.5 mg/0.5 mL pen injector subcut Jardiance 10 mg tablet 10 mg PO QAM (DME) Poise Pads Pad See Rx Instructions .ROUTE .MEDSUPPLY Qty: 90 0RF Rx Instructions: As directed ezetimibe 10 mg tablet 10 mg PO DAILY fluocinonide 0.05 % cream topical DAILY lorazepam 1 mg tablet 1 mg PO BID hydroxyzine HCl 25 mg tablet 25 mg PO DAILY metformin 850 mg tablet 850 mg PO BID nystatin 100,000 unit/gram powder 1 appl topical TID 30 Days Qty: 30 0RF Rx Instructions: to abdominal fold bilaterally metoclopramide HCl [Reglan] 10 mg tablet 10 mg PO .six times a day Qty: 180 6RF omeprazole 20 mg capsule,delayed release(DR/EC) 20 mg PO DAILY Qty: 30 6RF Discharge Date/Time: 05/30/23 21:07
[2023-05-30 13:27] VITALS: BP 144/71; PULSE 81; RESP 18; TEMP 36.6; O2SAT 99; BMI 36.2
--- NOTE | 2023-05-30 13:27 | ECG_ITS ---
Test Reason : DIZZY Blood Pressure : / mmHG Vent. Rate : 076 BPM Atrial Rate : 076 BPM P-R Int : 144 ms QRS Dur : 088 ms QT Int : 404 ms P-R-T Axes : -03 011 011 degrees QTc Int : 454 ms Normal sinus rhythm Normal ECG When compared with ECG of 02-JUL-2022 19:11, No significant change was found Referred By: Maria E Montes Electronically Signed By:Boogie Isaacs
[2023-05-30 15:00] LABS: MANUAL DIFF FLAG NO
[2023-05-30 15:02] LABS: Basophils Percent Auto 0.4 % (0-2); Eosinophils Absolute Auto 0.3 X10*3/uL (0.0-0.4); Eosinophils Percent Auto 2.7 % (0-4); Hematocrit 42.5 % (37.0-47.0); Hemoglobin 14.4 g/dl (12.0-16.0); Imm Gran Abs Auto 0.03 X10*3/uL (0.00-0.03); Imm Gran Pct Auto 0.3 % (0.0-0.4); Lymphocytes Absolute Auto 4.1 X10*3/uL (1.2-4.9); Lymphocytes Percent Auto 36.5 % (20-40); Mean Corpuscular HGB Conc 33.9 g/dl (31.0-35.0); Mean Corpuscular Hemoglobin 30.6 pg (27.0-33.0); Mean Corpuscular Volume 90.4 fL (80.0-98.0); Mean Platelet Volume 9.1 fL (9.4-12.3); Monocytes Absolute Auto 0.7 X10*3/uL (0.1-1.2); Neutrophils Absolute Auto 6.1 x10*3/uL (2.0-8.3); Neutrophils Percent Auto 54.1 % (45-73); Platelet Count 260 X10*3/uL (160-400); Red Cell Distribution Width 13.6 % (11.0-16.0); White Blood Count 11.2 X10*3/uL (4.8-10.8)
[2023-05-30 15:19] LABS: COVID-19 Test Negative (Negative); IDNOW Serial# 08D9AD1C
[2023-05-30 15:20] LABS: Alanine Aminotransferase 20 U/L (0-31); Albumin Level 4.2 g/dL (3.5-5.0); Alkaline Phosphatase 86 U/L (39-117); Anion Gap 13 (12-20); Aspartate Amino Transferase 16 U/L (5-31); Bilirubin Total 0.5 mg/dL (0.0-1.0); Blood Urea Nitrogen 24 mg/dL (9-16); Calcium 9.7 mg/dL (8.4-10.2); Carbon Dioxide 29 mmol/L (22-29); Chloride 102 mmol/L (96-108); Creatinine Clr Calc Pharmacy 50.7; Estimated Glomerular Filt Rate 45; Glucose Random 82 mg/dL (60-115); Potassium 3.8 mmol/L (3.3-5.1); Sodium 140 mmol/L (135-145); Total Protein 7.2 g/dL (6.5-8.0)
[2023-05-30 15:21] LABS: IDNOW Serial# 9DB6401D; Influenza A Negative (Negative); Influenza B2 Negative (Negative)
[2023-05-30 15:27] LABS: Troponin-I High Sensitivity < 2.7 ng/L (<3.5-17.0)
[2023-05-30 16:55] VITALS: BP 138/71; PULSE 80; RESP 16; TEMP 36.4; O2SAT 97
== END 2023-05-30 21:07 | disposition left against medical advice (07) ==
LOC: HO.ED 21:07
PROVIDERS: Physician Assistant Medical; Emergency Provider Emergency Medicine; PCP Hospitalist
DX: R42 Dizziness and giddiness (principal); Z11.52 Encounter for screening for COVID-19; E11.9 Type 2 diabetes mellitus without complications; I10 Essential (primary) hypertension; E78.00 Pure hypercholesterolemia, unspecified; Z89.512 Acquired absence of left leg below knee; Z79.02 Long term (current) use of antithrombotics/antiplatelets; Z79.01 Long term (current) use of anticoagulants; Z79.4 Long term (current) use of insulin; Z79.85 Long-term (current) use of injectable non-insulin antidiabetic drugs; Z79.899 Other long term (current) drug therapy
CPT/HCPCS: 36415; 70450; 80053; 83735; 84484; 85025; 87502; 87635; 93005; 99283; 99284

== ENCOUNTER → 2023-05-30 13:27 | Outpatient (BNV) | payer OTHER, SELFPAY | PROVIDERS: Emergency Provider Emergency Medicine; PCP Hospitalist; Visit Provider Internal Medicine Cardiovascular Disease | DX: R42 Dizziness and giddiness (principal) | CPT/HCPCS: 93010 ==

== ENCOUNTER 2023-07-19 10:14 | Outpatient (REF) | payer OTHER, SELFPAY ==
--- NOTE | ~2023-07-19 | US_ITS ---
EXAMINATION: US RETROPERITONEAL COMPLETE (RENAL) CLINICAL INFORMATION: Unspecified urinary incontinence. COMPARISON: CT abdomen and pelvis 10/29/2022 ultrasound abdomen 04/09/2022. TECHNIQUE: Real-time imaging of the kidneys and bladder. FINDINGS: RIGHT KIDNEY: 10.8 x 5.3 x 4.8 cm (SAG x AP x TRV). The kidney is normal in size, contour, and echogenicity. Renal cortical thickness is normal. No calculi or focal parenchymal lesions. No hydronephrosis. LEFT KIDNEY: 9.2 x 5.1 x 3.9 cm (SAG x AP x TRV). The kidney is normal in size, contour, and echogenicity. Renal cortical thickness is normal. No calculi or focal parenchymal lesions. No hydronephrosis. BLADDER: Well distended and normal. Bilateral ureteral jets are demonstrated. Prevoid bladder volume is 181 mL. There is no postvoid residual. US/US retroperitoneal comp IMPRESSION: 1. No nephrolithiasis or hydronephrosis. 2. Postvoid bladder volume of essentially 0 mL with visualization of the bilateral ureteral jets.
== END 2023-07-19 10:15 | disposition home or self-care (01) ==
LOC: HO.US 10:14
PROVIDERS: PCP Hospitalist; Visit Provider Nurse Practitioner Family
DX: R32 Unspecified urinary incontinence (principal); M62.89 Other specified disorders of muscle
CPT/HCPCS: 76770

== ENCOUNTER 2023-09-29 07:14 | Emergency (ER) | payer OTHER, SELFPAY ==
--- NOTE | ~2023-09-29 | CT_ITS ---
EXAMINATION: CT HEAD WITHOUT CONTRAST CLINICAL INFORMATION: Left-sided headache numbness COMPARISON: CT head from 05/30/2023 TECHNIQUE: Contiguous axial imaging was performed from the skull base to vertex without intravenous administration of contrast. This CT examination was performed using dose optimization techniques as appropriate, variously including the following: *Automated exposure control *Adjustment of mA and/or kV according to patient size (this includes techniques or standardized protocols for targeted exams where dose is matched to indication/reason for exam; i.e. extremities or head) *Use of iterative reconstruction technique DLP: 634.06 mGy-cm FINDINGS: There is no evidence of acute intracranial hemorrhage or territorial infarction. Chronic white matter small vessel ischemic changes. No abnormal mass effect or midline shift is seen. Benitez to white matter differentiation is well preserved. No extra-axial fluid collections are identified. The ventricles are normal in size. There is no abnormal attenuation within the brain parenchyma. The osseous structures and soft tissues are normal. Layering fluid in the left maxillary sinus. The mastoid air cells and visualized portions of the paranasal sinuses are well aerated. CT/CT cervical spine wo IV con IMPRESSION: 1. No acute intracranial pathology. 2. Chronic white matter small vessel ischemic changes. 3. Layering fluid in the left maxillary sinus. EXAMINATION: Noncontrast CT scan of the cervical spine. INDICATION: Left-sided headache changes in sensation COMPARISON: CT cervical spine from 07/02/2023 TECHNIQUE: Helical, multidetector axial images were obtained from the occiput to the upper thorax. Coronal and sagittal reformats of the cervical spine were provided for interpretation. DLP: 424.82 mGy-cm FINDINGS: No acute fractures or dislocations of the cervical spine are seen. Straightening of normal cervical curvature. Multilevel degenerative changes. Anatomic alignment and positioning of the vertebral bodies and posterior elements is noted. The atlantoaxial joint and craniovertebral articulations are normal without evidence of subluxation. There is no prevertebral soft tissue swelling. The thyroid gland and visualized portions of the lung apices and mediastinum are unremarkable. IMPRESSION: 1. No acute visible fracture or dislocation. 2. Straightening of normal cervical curvature. 3. Multilevel degenerative changes.
[2023-09-29 07:19] VITALS: BP 124/69; PULSE 81; RESP 18; TEMP 36.1; O2SAT 100; BMI 38.7
--- NOTE | 2023-09-29 07:48 | ED_ITS ---
HPI - General Adult General Chief complaint: General Medical Stated complaint: Pain L side of head Time Seen by Provider: 09/29/23 07:47 Source: patient Mode of arrival: ambulatory Limitations: no limitations History of Present Illness ED Provider: Maria E Montes PA-C HPI narrative: Patient is a 63 year old assigned female at with a history of CKD, DM, MUSA, asthma, HTN, HLD, Chronic DVTs on anti-coagulant medication, and left BKA presenting to the emergency department today with left ear and face pain / tingling. Patient states that over the last 5 days she has had left sided ear pain, face pain, and intermittent left sided facial tingling. Patient states that she was recently seen by her PCP for this who referred her to vascular surgery. Vascular surgery performed a biopsy for temporal arteritis on the left. Biopsy was negative for temporal arteritis. Patient denies any dizziness, lightheadedness, abdominal pain, nausea, vomiting, fever, chills, blurry vision, double vision, loss of vision, chest pain, difficulty breathing, shortness of breath, back pain, night sweats, pain with urination, increased urinary frequency, increased urinary urgency, blood in her urine or stool, syncope or a near syncopal episode, recent trauma or falls, bowel incontinence, bladder incontinence, bowel retention, bladder retention, or any other complaints at this time. Onset (ago): day(s) (5) Location: face and left Severity: mild Severity scale (1-10): 3 Pain Consistency: intermittent Relieving factors: none Exacerbating factors: none Associated symptoms: denies other symptoms Treatments prior to arrival: none Related Data Home Medications ?Medication ?Instructions ?Recorded ?Confirmed alcohol swabs pad topical TID 10/16/20 amlodipine 5 mg tablet 5 mg PO DAILY 10/16/20 apixaban 5 mg tablet 5 mg PO BID 10/16/20 04/25/23 atorvastatin 10 mg tablet 10 mg PO DAILY 10/16/20 blood sugar diagnostic #10 ea 10/16/20 cholecalciferol (vitamin D3) 50 50 mcg PO BEDTIME 10/16/20 mcg (2,000 unit) capsule citalopram 40 mg tablet 40 mg PO DAILY 10/16/20 04/25/23 diclofenac sodium 1 % topical gel g topical 10/16/20 fluticasone propionate 50 0 mcg intranasal BID 10/16/20 mcg/actuation nasal spray,suspension hydrochlorothiazide 25 mg tablet 25 mg PO QAM 10/16/20 lancets 30 gauge #100 ea 10/16/20 loratadine 10 mg tablet 10 mg PO DAILY 10/16/20 losartan 100 mg tablet 100 mg PO DAILY 10/16/20 metoprolol succinate 100 mg 100 mg PO DAILY 10/16/20 tablet,extended release 24 hr montelukast 10 mg tablet 10 mg PO DAILY 10/16/20 oxycodone 30 mg tablet 30 mg PO TID PRN 10/16/20 pen needle, diabetic 32 gauge x #50 ea 10/16/20 temazepam 30 mg capsule 30 mg PO BEDTIME PRN 10/16/20 triamcinolone acetonide 0.025 % appl topical 10/16/20 topical cream tizanidine 4 mg tablet 4 mg PO TID PRN 12/11/20 12/11/20 benzonatate 100 mg capsule 100 mg PO TID 08/14/21 insulin glargine 100 unit/mL (3 unit subcut BEDTIME 08/14/21 mL) subcutaneous pen (Lantus Solostar U-100 Insulin) insulin lispro 100 unit/mL 30 unit subcut TID 08/14/21 subcutaneous pen metronidazole 0.75 % (37.5 mg/5 1 appful vaginal BEDTIME 08/14/21 gram) vaginal gel dulaglutide 4.5 mg/0.5 mL mg subcut 12/15/21 subcutaneous pen injector (Trulicity) empagliflozin 10 mg tablet 10 mg PO QAM 12/15/21 (Jardiance) ezetimibe 10 mg tablet 10 mg PO DAILY 01/13/23 fluocinonide 0.05 % topical cream appl topical DAILY 01/13/23 hydroxyzine HCl 25 mg tablet 25 mg PO DAILY 01/13/23 lorazepam 1 mg tablet 1 mg PO BID 01/13/23 metformin 850 mg tablet 850 mg PO BID 01/13/23 Previous Rx's ?Medication ?Instructions ?Recorded incontinence pad, liner, disp #90 ea 11/13/21 (Poise Pads) albuterol sulfate 90 mcg/actuation 1 inh inhalation QID PRN shortness 06/06/22 aerosol inhaler of breath or wheezing #8.5 grams diphenhydramine HCl 25 mg capsule 25 mg PO TID PRN headache #20 caps 07/02/22 (Benadryl) lidocaine 5 % topical patch 1 patch topical DAILY PRN pain #15 07/02/22 ea nystatin 100,000 unit/gram topical 1 appl topical TID 30 days #30 01/13/23 powder grams disposable gloves (Nitrile Exam #50 ea 02/15/23 Gloves) incontinence pad, liner, disp #180 ea 02/15/23 underpads (Bed Underpads) #90 ea 02/15/23 metoclopramide HCl 10 mg tablet 10 mg PO .six times a day 05/24/23 (Reglan) gastroparesis #180 tabs omeprazole 20 mg capsule,delayed 20 mg PO DAILY #30 caps 05/24/23 release vibegron 75 mg tablet (Gemtesa) 75 mg PO DAILY 90 days #90 tabs 06/07/23 doxycycline hyclate 100 mg tablet 100 mg PO BID 7 days #14 tabs 09/29/23 Allergies Allergy/AdvReac Type Severity Reaction Status Date / Time octopus Allergy Severe Anaphylaxis Verified 09/29/23 07:25 oxybutynin Allergy Severe Difficulty Verified 09/29/23 07:25 Swallowing tolterodine Allergy Severe Difficulty Verified 09/29/23 07:25 Swallowing aspirin Allergy Unknown anaphylaxis Verified 09/29/23 07:25 citalopram Allergy Unknown Unknown Verified 09/29/23 07:25 empagliflozin Allergy Unknown Unknown Verified 09/29/23 07:25 [From Jardiance] Fish Containing Products Allergy Unknown Unknown Verified 09/29/23 07:25 gabapentin Allergy Unknown hives Verified 09/29/23 07:25 hydrocodone [Vicodin] Allergy Unknown hives Verified 09/29/23 07:25 naproxen [Naprosyn] Allergy Unknown anaphylaxis Verified 09/29/23 07:25 oxycodone [Percocet] Allergy Unknown hives Verified 09/29/23 07:25 pregabalin [From Lyrica] Allergy Unknown Unknown Verified 09/29/23 07:25 sertraline Allergy Unknown Unknown Verified 09/29/23 07:25 shellfish derived Allergy Unknown Unknown Verified 09/29/23 07:25 peanut Allergy Anaphylaxis Verified 09/29/23 07:25 solifenacin AdvReac phlegm Verified 09/29/23 07:25 Vicodin Allergy Unknown hives Uncoded 05/30/23 13:26 Review of Systems 2 Constitutional: Constitutional: Reports no additional constitutional complaints, Denies chills, Denies fever(s) and Denies night sweats Eyes: Eyes: Reports no additional eye complaints, Denies blurry vision, Denies change in vision, Denies diplopia, Denies eye discharge, Denies loss of vision and Denies eye pain ENT: Denies dizziness Comments: left sided facial pain, left sided ear pain, tingling of the left face / ear Cardiovascular: Cardiovascular: Reports no additional cardiovascular complaints, Denies chest pain, Denies lightheadedness, Denies Loss of Consciousness and Denies dyspnea Respiratory: Respiratory: Reports no additional respiratory complaints and Denies dyspnea Gastrointestinal: Gastrointestinal: Reports no additional gastrointestinal complaints, Denies abdominal pain, Denies melena, Denies hematochezia, Denies change in bowel habits and Denies change in stool character Genitourinary: Genitourinary: Denies hematuria, Denies urinary frequency, Denies dysuria, Denies urinary incontinence, Denies urinary hesitancy and Denies urinary urgency Musculoskeletal: Musculoskeletal: Reports no additional musculoskeletal complaints, Denies numbness and Denies tingling Neurologic: Denies dizziness, Denies loss of vision, Denies numbness and Denies tingling Psychiatric: Psychiatric: Reports no additional psychiatric complaints Endocrine: Endocrine: Reports no additional endocrine complaints Hematologic/Lymphatic: Hematologic/Lymphatic: Reports no additional hematologic/lymphatic complaints Allergic/Immunologic: Allergic/Immunologic: Reports no additional allergic/immunologic complaints PMFSH Past Medical History Attestation statement: The following information was validated with the patient. Source: old records reviewed and nursing notes reviewed Medical History Gastroparesis COVID-19 UTI (urinary tract infection) Amputated toe of right foot Ganglion cyst Urinary incontinence HTN (hypertension) Diabetes mellitus Urinary incontinence Surgical History History of left below knee amputation S/P carpal tunnel release History of surgical removal of ganglion cyst S/P rotator cuff repair History of surgery Social History Social History Alcohol intake: never Patient Tobacco Use Status: Never used Tobacco Substance Use Type: Marijuana Advance Directives: No Advance Directives Information Provided: Yes Do you have a plan to hurt others: No Plan Physical Exam ED Vital Signs: Vital Signs - 24 hr 09/29/23 07:19 09/29/23 08:15 09/29/23 10:17 Temperature 97.0 F 97.5 F 97.5 F Pulse Rate 81 77 77 Respiratory Rate 18 16 16 Blood Pressure 124/69 126/76 126/76 Pulse Oximetry 100 98 98 Oxygen Delivery Method Room Air Room Air Room Air BMI result Body Mass Index 38.7 Const General: cooperative, no acute distress, alert and awake Nutritional Appearance: well nourished Orientation/consciousness: patient oriented x3 Limitations: no limitations HENMT Head: Yes normal to inspection and Yes atraumatic Ears: hearing grossly normal bilaterally and external ears normal General nose exam: Normal external nose present, no nasal discharge noted and no epistaxis Face and sinus: Yes normal facial exam, No abrasion and No laceration Mouth: Normal oral and palatal mucosa present, no drooling and no muffled voice Eyes General: appearance normal, both eyes and all related structures Periorbital: periorbital findings normal Eyelids: Yes eyelids normal Conjunctivae: conjunctivae normal Pupils: Equal, round and reactive pupils present EOM: EOMs intact bilaterally Neck Neck: Yes normal visual inspection, Yes full ROM and Yes no lymphadenopathy Chest Chest palpation & inspection: normal inspection of the chest Resp Effort & Inspection: normal respiratory effort and able to speak in complete sentences GI Inspection: Yes normal to inspection Neuro General: patient oriented x3 and moves all extremities Cranial nerves: Yes Equal, round and reactive pupils present Cognition (Neuro): normal cognition Motor exam (neuro): 5/5 motor strength present throughout Sensory Exam: Normal double simultaneous stimulation for sensation Coordination: [id number] test normal Extrem Other: patient has a chronic left BKA Psych Appearance: grossly normal Mental Status: mental status grossly normal Affect: normal affect Attitude: cooperative Thought process: Normal thought process present Thought content: Normal thought content present Insight: Good insight present (Psych) NIH Stroke Scale Internal: Initial- Upon Arrival Time: 07:14 Level of Consciousness: Alert Level of Consciousness Questions: Answers both questions correctly Level of Consciousness Commands: Performs both tasks correctly Best Gaze: Normal Visual: No visual loss Facial Palsy: Normal Motor Arm (Right): No drift Motor Arm (Left): No drift Motor Leg (Right): No drift Motor Leg (Left): No drift Limb Ataxia: Absent Sensory: Normal Best Language: No aphasia Dysarthia: Normal Extinction and Inattention: No abnormality Score: 0 Medical Decision Making Medical Decision Making [facility] Narrative: Patient is a 63 year old assigned female at with a history of CKD, DM, MUSA, asthma, HTN, HLD, Chronic DVTs on anti-coagulant medication, and left BKA presenting to the emergency department today with left sided ear pain, face pain, numbness and tingling of the left face / ear. Patient's physical exam was unremarkable and consistent with her baseline. Patient's blood work was unremarkable. Patient's CT head and c-spine showed layering fluid in the left maxillary sinus. Given the patient's presentation, the CT findings in the left sinus could show an acute sinusitis which could attribute to the patient's symptoms. However, cannot definitively rule out Trigeminal Neuralgia which would also be consistent with the patient's symptoms. I explained my physical exam findings as well as all test results to the patient. I answered all questions asked by the patient. I stressed the importance of the patient taking her medication as prescribed. I stressed the importance of the patient following up with her primary care provider, a neurologist, and an ENT specialist. I stressed the importance of the patient returning to the emergency department immediately if her symptoms were to worsen or if she were to develop any dizziness, shortness of breath, difficulty breathing, chest pain, blurry vision, loss of vision, nausea, vomiting, abdominal pain, fever, chills, back pain, or any other complaints. Patient verbalized agreement and understanding with this treatment plan and discharge. Differential Diagnosis Differential Diagnoses: The differential diagnosis associated with the presentation includes Trigeminal neuralgia Paresthesias Sinusitis Admission/Observation Consideration of admission/observation: Escalation of care including admission/observation considered Patient would have been admitted to the hospital had her work up had any findings where hospital admission was appropriate and her clinical presentation warranted hospital admission. Lab Data [facility] Lab Attestation statement: I reviewed the patient's lab results. My interpretation of these results are in the [facility] Rationale portion of this note. 09/29/23 08:28 09/29/23 08:28 Labs: Lab Results 09/29/23 Range/Units 08:28 WBC 9.5 (4.8-10.8) X10*3/uL RBC 4.24 (4.20-5.50) X10*6/uL Hgb 13.3 (12.0-16.0) g/dl Hct 39.2 (37.0-47.0) % MCV 92.5 (80.0-98.0) fL MCH 31.4 (27.0-33.0) pg MCHC 33.9 (31.0-35.0) g/dl RDW 12.9 (11.0-16.0) % Plt Count 221 (160-400) X10*3/uL MPV 9.1 L (9.4-12.3) fL Immature Gran % (Auto) 0.3 (0.0-0.4) % Neut % (Auto) 53.5 (45-73) % Lymph % (Auto) 35.4 (20-40) % [place] % (Auto) 6.8 (2-11) % Eos % (Auto) 3.5 (0-4) % Baso % (Auto) 0.5 (0-2) % Lymph # (Auto) 3.4 (1.2-4.9) X10*3/uL [place] # (Auto) 0.7 (0.1-1.2) X10*3/uL Eos # (Auto) 0.3 (0.0-0.4) X10*3/uL Baso # (Auto) 0.1 (0.0-0.2) X10*3/uL Abs Immat Gran (auto) 0.03 (0.00-0.03) X10*3/uL Absolute Neuts (auto) 5.1 (2.0-8.3) x10*3/uL Absolute Nucleated RBC 0.000 (0.0-0.012) X10*3/uL Nucleated RBC % (auto) 0.0 (0.0-0.2) /100WBC Sodium 138 (135-145) mmol/L Potassium 4.2 (3.3-5.1) mmol/L Chloride 102 (96-108) mmol/L Carbon Dioxide 27 (22-29) mmol/L Anion Gap 13 (12-20) BUN 17 H (9-16) mg/dL Creatinine 1.00 (0.5-1.4) mg/dL Estim Creat Clear Calc 63.8 Estimated GFR 56 Random Glucose 132 H (60-115) mg/dL Calcium 9.8 (8.4-10.2) mg/dL Magnesium 2.0 (1.6-2.6) mg/dL Total Bilirubin 0.6 (0.0-1.0) mg/dL AST 24 (5-31) U/L ALT 33 H (0-31) U/L Alkaline Phosphatase 89 (39-117) U/L Total Protein 6.7 (6.5-8.0) g/dL Albumin 3.9 (3.5-5.0) g/dL Independent Interpretation I performed an independent interpretation of an: CT Scan Interpretation: My interpretation is in agreement with the radiologist's impression of these imaging studies. - EXAMINATION: CT HEAD WITHOUT CONTRAST CLINICAL INFORMATION: Left-sided headache numbness COMPARISON: CT head from 05/30/2023 TECHNIQUE: Contiguous axial imaging was performed from the skull base to vertex without intravenous administration of contrast. This CT examination was performed using dose optimization techniques as appropriate, variously including the following: *Automated exposure control *Adjustment of mA and/or kV according to patient size (this includes techniques or standardized protocols for targeted exams where dose is matched to indication/reason for exam; i.e. extremities or head) *Use of iterative reconstruction technique DLP: 634.06 mGy-cm FINDINGS: There is no evidence of acute intracranial hemorrhage or territorial infarction. Chronic white matter small vessel ischemic changes. No abnormal mass effect or midline shift is seen. [place] to white matter differentiation is well preserved. No extra-axial fluid collections are identified. The ventricles are normal in size. There is no abnormal attenuation within the brain parenchyma. The osseous structures and soft tissues are normal. Layering fluid in the left maxillary sinus. The mastoid air cells and visualized portions of the paranasal sinuses are well aerated. CT/CT head/brain wo IV con IMPRESSION: 1. No acute intracranial pathology. 2. Chronic white matter small vessel ischemic changes. 3. Layering fluid in the left maxillary sinus. EXAMINATION: Noncontrast CT scan of the cervical spine. INDICATION: Left-sided headache changes in sensation COMPARISON: CT cervical spine from 07/02/2023 TECHNIQUE: Helical, multidetector axial images were obtained from the occiput to the upper thorax. Coronal and sagittal reformats of the cervical spine were provided for interpretation. DLP: 424.82 mGy-cm FINDINGS: No acute fractures or dislocations of the cervical spine are seen. Straightening of normal cervical curvature. Multilevel degenerative changes. Anatomic alignment and positioning of the vertebral bodies and posterior elements is noted. The atlantoaxial joint and craniovertebral articulations are normal without evidence of subluxation. There is no prevertebral soft tissue swelling. The thyroid gland and visualized portions of the lung apices and mediastinum are unremarkable. IMPRESSION: 1. No acute visible fracture or dislocation. 2. Straightening of normal cervical curvature. 3. Multilevel degenerative changes. Dictated By: Delia Martínez MD Signed By: Electronically signed by Delia Martínez MD 09/29/23 0928 Radiology Impression Discussion of test interpretation with radiology: I have reviewed the radiologist's reading. Prescription Management I considered prescription management with: Antibiotic (patient prescribed an antibiotic for sinusitis) Chronic Conditions Patient?s care impacted by: Diabetes and Hypertension Critical Care Time Critical Care Time Critical Care Time: Yes Total Critical Care Time: 35 Attestation: I spent 35 minutes of Critical Care Time with this patient. This does not include time spent on separately reported billable procedures. Discharge Plan Discharge Clinical Impression: Sinusitis, Trigeminal neuralgia Patient Disposition: Home, Self-Care Instructions: Sinusitis (ED), Trigeminal Neuralgia (ED) Additional Instructions: Your CT scan showed a possible infection of your LEFT sinus. Given this is the same side you are having the issue, we are going to treat it with an antibiotic. However, given the length of time you've had this issue, I am still suspicious of Trigeminal Neuralgia. Follow up with your primary care provider, an ENT specialist, and a neurologist. Return to the emergency department immediately if your symptoms worsen or if you develop any dizziness, shortness of breath, difficulty breathing, chest pain, blurry vision, loss of vision, nausea, vomiting, abdominal pain, fever, chills, back pain, or any other complaints. Prescriptions: New doxycycline hyclate 100 mg tablet 100 mg PO BID 7 Days Qty: 14 0RF No Action (DME) disposable gloves [Nitrile Exam Gloves] Misc See Rx Instructions .Route Qty: 50 11RF Rx Instructions: As directed- pt requesting size XL (DME) incontinence pad, liner, disp Pad See Rx Instructions .ROUTE .MEDSUPPLY Qty: 180 11RF Rx Instructions: As directed- pt requesting 6 per day (DME) underpads [Bed Underpads] Pad See Rx Instructions .Route Qty: 90 11RF Rx Instructions: As directed- pt requesting 3 per night Gemtesa 75 mg tablet 75 mg PO DAILY 90 Days Qty: 90 1RF albuterol sulfate 90 mcg/actuation HFA aerosol inhaler 1 inh inhalation QID PRN (Reason: shortness of breath or wheezing) Qty: 8.5 0RF diphenhydramine HCl [Benadryl] 25 mg capsule 25 mg PO TID PRN (Reason: headache) Qty: 20 0RF lidocaine 5 % adhesive patch,medicated 1 patch topical DAILY PRN (Reason: pain) Qty: 15 0RF Rx Instructions: leave on most painful area for up to 12 hrs (DME) lancets 30 gauge misc See Rx Instructions .ROUTE TID Qty: 100 Rx Instructions: As directed (DME) pen needle, diabetic 32 gauge x 5/32 needle See Rx Instructions .ROUTE .MEDSUPPLY Qty: 50 Rx Instructions: As directed cholecalciferol (vitamin D3) 50 mcg (2,000 unit) capsule 50 mcg PO BEDTIME diclofenac sodium 1 % gel topical loratadine 10 mg tablet 10 mg PO DAILY fluticasone propionate 50 mcg/actuation spray,suspension 0 mcg intranasal BID losartan 100 mg tablet 100 mg PO DAILY hydrochlorothiazide 25 mg tablet 25 mg PO QAM alcohol swabs Pads, Medicated topical TID montelukast 10 mg tablet 10 mg PO DAILY temazepam 30 mg capsule 30 mg PO BEDTIME PRN amlodipine 5 mg tablet 5 mg PO DAILY (DME) FreeStyle Lite Strips Strip See Rx Instructions Not Applicable TID Qty: 10 Rx Instructions: As directed metoprolol succinate 100 mg tablet extended release 24 hr 100 mg PO DAILY atorvastatin 10 mg tablet 10 mg PO DAILY citalopram 40 mg tablet 40 mg PO DAILY Eliquis 5 mg tablet 5 mg PO BID oxycodone 30 mg tablet 30 mg PO TID PRN triamcinolone acetonide 0.025 % cream topical tizanidine 4 mg tablet 4 mg PO TID PRN benzonatate 100 mg capsule 100 mg PO TID metronidazole 0.75 % gel 1 appful vaginal BEDTIME Lantus Solostar U-100 Insulin 100 unit/mL (3 mL) insulin pen subcut BEDTIME insulin lispro 100 unit/mL insulin pen 30 unit subcut TID Trulicity 4.5 mg/0.5 mL pen injector subcut Jardiance 10 mg tablet 10 mg PO QAM (DME) Poise Pads Pad See Rx Instructions .ROUTE .MEDSUPPLY Qty: 90 0RF Rx Instructions: As directed ezetimibe 10 mg tablet 10 mg PO DAILY fluocinonide 0.05 % cream topical DAILY lorazepam 1 mg tablet 1 mg PO BID hydroxyzine HCl 25 mg tablet 25 mg PO DAILY metformin 850 mg tablet 850 mg PO BID nystatin 100,000 unit/gram powder 1 appl topical TID 30 Days Qty: 30 0RF Rx Instructions: to abdominal fold bilaterally metoclopramide HCl [Reglan] 10 mg tablet 10 mg PO .six times a day Qty: 180 6RF omeprazole 20 mg capsule,delayed release(DR/EC) 20 mg PO DAILY Qty: 30 6RF Referrals: [facility] [place] Neuro/Sleep [Provider Group] (Call to establish and follow up with a neurologist.) Bang Hilario MD [Primary Care Provider] - Rick Henry [Physician] - (Call to establish and follow up with an ENT specialist.) Interventions: ED Discharge Assessment Last Done: 09/29/23 10:17 Discharge Date/Time: 09/29/23 10:18 Print Language: Hebrew
[2023-09-29 08:15] VITALS: BP 126/76; PULSE 77; RESP 16; TEMP 36.4; O2SAT 98
[2023-09-29 08:39] LABS: MANUAL DIFF FLAG NO
[2023-09-29 08:42] LABS: Basophils Absolute Auto 0.1 X10*3/uL (0.0-0.2); Basophils Percent Auto 0.5 % (0-2); Eosinophils Absolute Auto 0.3 X10*3/uL (0.0-0.4); Eosinophils Percent Auto 3.5 % (0-4); Hematocrit 39.2 % (37.0-47.0); Hemoglobin 13.3 g/dl (12.0-16.0); Imm Gran Abs Auto 0.03 X10*3/uL (0.00-0.03); Imm Gran Pct Auto 0.3 % (0.0-0.4); Lymphocytes Absolute Auto 3.4 X10*3/uL (1.2-4.9); Lymphocytes Percent Auto 35.4 % (20-40); Mean Corpuscular HGB Conc 33.9 g/dl (31.0-35.0); Mean Corpuscular Hemoglobin 31.4 pg (27.0-33.0); Mean Corpuscular Volume 92.5 fL (80.0-98.0); Mean Platelet Volume 9.1 fL (9.4-12.3); Monocytes Absolute Auto 0.7 X10*3/uL (0.1-1.2); Monocytes Percent Auto 6.8 % (2-11); Neutrophils Absolute Auto 5.1 x10*3/uL (2.0-8.3); Neutrophils Percent Auto 53.5 % (45-73); Platelet Count 221 X10*3/uL (160-400); Red Blood Count 4.24 X10*6/uL (4.20-5.50); Red Cell Distribution Width 12.9 % (11.0-16.0); White Blood Count 9.5 X10*3/uL (4.8-10.8)
[2023-09-29 08:57] LABS: Alanine Aminotransferase 33 U/L (0-31); Albumin Level 3.9 g/dL (3.5-5.0); Alkaline Phosphatase 89 U/L (39-117); Anion Gap 13 (12-20); Aspartate Amino Transferase 24 U/L (5-31); Bilirubin Total 0.6 mg/dL (0.0-1.0); Blood Urea Nitrogen 17 mg/dL (9-16); Calcium 9.8 mg/dL (8.4-10.2); Carbon Dioxide 27 mmol/L (22-29); Chloride 102 mmol/L (96-108); Creatinine Clr Calc Pharmacy 63.8; Estimated Glomerular Filt Rate 56; Glucose Random 132 mg/dL (60-115); Potassium 4.2 mmol/L (3.3-5.1); Sodium 138 mmol/L (135-145); Total Protein 6.7 g/dL (6.5-8.0)
[2023-09-29 10:17] VITALS: BP 126/76; PULSE 77; RESP 16; TEMP 36.4; O2SAT 98
== END 2023-09-29 10:18 | disposition home or self-care (01) ==
PROVIDERS: Physician Assistant Medical; Emergency Provider Emergency Medicine; PCP Hospitalist
DX: G50.0 Trigeminal neuralgia (principal); J32.9 Chronic sinusitis, unspecified; H92.02 Otalgia, left ear; I12.9 Hypertensive chronic kidney disease with stage 1 through stage 4 chronic kidney disease, or unspecified chronic kidney disease; E11.22 Type 2 diabetes mellitus with diabetic chronic kidney disease; N18.9 Chronic kidney disease, unspecified; I82.509 Chronic embolism and thrombosis of unspecified deep veins of unspecified lower extremity; Z79.01 Long term (current) use of anticoagulants; R51.9 Headache, unspecified
CPT/HCPCS: 36415; 70450; 72125; 80053; 83735; 85025; 99283; 99284

== ENCOUNTER 2023-11-04 13:36 | Outpatient (REF) | payer OTHER, SELFPAY | END 2023-11-04 13:37 | disposition home or self-care (01) | LOC: HO.LNP 13:36 | PROVIDERS: PCP Hospitalist; Visit Provider Nurse Practitioner Family | DX: R32 Unspecified urinary incontinence (principal); R39.9 Unspecified symptoms and signs involving the genitourinary system | CPT/HCPCS: 81003; 87086; 99212 ==

== ENCOUNTER 2023-11-04 13:36 | Outpatient (AMB) | payer OTHER, SELFPAY ==
--- NOTE | 2023-11-04 14:09 | MHC.OFFVIS ---
Intake Visit Reasons: US/PVR(set) Intake Note: Patient is present for PVR/US Urology Medication:gemtesa,nystatin Antibiotic Allergy:none Blood Thinner:apixaban Last PVR:0ml Todays PVR:0ml Machine Castings Plasterer Required: No Allergies octopus Allergy (Severe, Verified 11/04/23 14:54) Anaphylaxis oxybutynin Allergy (Severe, Verified 11/04/23 14:54) Difficulty Swallowing tolterodine Allergy (Severe, Verified 11/04/23 14:54) Difficulty Swallowing aspirin Allergy (Unknown, Verified 11/04/23 14:54) anaphylaxis citalopram Allergy (Unknown, Verified 11/04/23 14:54) Unknown empagliflozin [From Jardiance] Allergy (Unknown, Verified 11/04/23 14:54) Unknown Fish Containing Products Allergy (Unknown, Verified 11/04/23 14:54) Unknown gabapentin Allergy (Unknown, Verified 11/04/23 14:54) hives hydrocodone [Vicodin] Allergy (Unknown, Verified 11/04/23 14:54) hives naproxen [Naprosyn] Allergy (Unknown, Verified 11/04/23 14:54) anaphylaxis oxycodone [Percocet] Allergy (Unknown, Verified 11/04/23 14:54) hives pregabalin [From Lyrica] Allergy (Unknown, Verified 11/04/23 14:54) Unknown sertraline Allergy (Unknown, Verified 11/04/23 14:54) Unknown shellfish derived Allergy (Unknown, Verified 11/04/23 14:54) Unknown peanut Allergy (Verified 11/04/23 14:54) Anaphylaxis solifenacin Adverse Reaction (Verified 11/04/23 14:54) phlegm Vicodin Allergy (Unknown, Uncoded 11/04/23 14:54) hives Medication List - Last Reconciled 11/04/23 by DORIAN Holt albuterol sulfate 90 mcg/actuation 1 inh inhalation QID PRN alcohol swabs pad topical TID amlodipine 5 mg PO DAILY apixaban 5 mg PO BID atorvastatin 10 mg PO DAILY benzonatate 100 mg PO TID blood sugar diagnostic As directed cholecalciferol (vitamin D3) 50 mcg PO BEDTIME citalopram 40 mg PO DAILY diclofenac sodium 1% grams topical diphenhydramine HCl (Benadryl) 25 mg PO TID PRN disposable gloves (Nitrile Exam Gloves) As directed- pt requesting size XL doxycycline hyclate 100 mg PO BID 7 days dulaglutide (Trulicity) mg subcut empagliflozin (Jardiance) 10 mg PO QAM ezetimibe 10 mg PO DAILY fluocinonide 0.05% appl topical DAILY fluticasone propionate 50 mcg/actuation 0 mcg intranasal BID hydrochlorothiazide 25 mg PO QAM hydroxyzine HCl 25 mg PO DAILY incontinence pad, liner, disp (Poise Pads) As directed incontinence pad, liner, disp As directed- pt requesting 6 per day insulin glargine (Lantus Solostar U-100 Insulin) units subcut BEDTIME insulin lispro 30 units subcut TID lancets As directed lidocaine 5% 1 patch topical DAILY PRN loratadine 10 mg PO DAILY lorazepam 1 mg PO BID losartan 100 mg PO DAILY metformin 850 mg PO BID metoclopramide HCl (Reglan) 10 mg PO .six times a day metoprolol succinate ER 100 mg PO DAILY metronidazole 0.75%(37.5mg/5gram) 1 appful vaginal BEDTIME montelukast 10 mg PO DAILY nystatin 1 appl topical TID 30 days omeprazole 20 mg PO DAILY oxycodone 30 mg PO TID PRN pen needle, diabetic As directed temazepam 30 mg PO BEDTIME PRN tizanidine 4 mg PO TID PRN triamcinolone acetonide 0.025% appl topical underpads (Bed Underpads) As directed- pt requesting 3 per night vibegron (Gemtesa) 75 mg PO DAILY 90 days HPI Comments Details: Maribell is a pleasant 62-year-old female patient of Dr. Hilario. She has a past medical history of urinary incontinence, hypertension, diabetes, urinary tract infections, gastroparesis, constipation, chronic back pain, left leg below the knee amputation, hypertension, and history of a PE currently on Eliquis. She is being follow-up on today for her lower urinary tract symptoms and history of recurrent urinary tract infections. In discussion with the patient today she reports to be doing and feeling well. She reports no improvement in her lower urinary tract symptoms with 75 mg of Gemtesa daily. She continues with unsensed and sensed urinary incontinence. She continues to report episodes of urinary urgency and frequency. She reports utilizing 4-6 Lyric pads per day. She has previously trialed oxybutynin, tolterodine, and VESIcare. In office urinalysis results reviewed with the patient today 3+ leukocytes negative nitrates. She has baseline lower urinary tract symptoms and is unsure if she has a UTI at this time. PVR 0 mL. Recent retroperitoneal ultrasound results reviewed with the patient today. Bilateral kidneys with no lesions, hydronephrosis, or calculi noted. The bladder is well distended and normal. Bilateral ureteral jets are demonstrated. Pre void bladder volume is approximately 180 mL. There is no postvoid residual. She otherwise denies dysuria, hematuria, fever, flank pain, and or chills. When asked she denies any urological issues or concerns at this time. [facility] Medical History Gastroparesis COVID-19 UTI (urinary tract infection) Amputated toe of right foot Ganglion cyst Urinary incontinence HTN (hypertension) Diabetes mellitus Urinary incontinence Surgical History History of left below knee amputation S/P carpal tunnel release History of surgical removal of ganglion cyst S/P rotator cuff repair History of surgery Social History Alcohol intake: never Patient Tobacco Use Status: Never used Tobacco Substance Use Type: Marijuana Review of Systems Const Reports no additional complaints Eyes Reports no additional complaints ENT Reports no additional complaints Card Reports as per HPI Resp Reports no additional complaints GI Reports as per HPI Reports as per HPI Musc Reports as per HPI Neuro Reports no additional complaints Psych Reports no additional complaints Endo Reports as per HPI Rip/Lymph Reports as per HPI Aller/Immun Reports no additional complaints Physical Exam Const General: cooperative, healthy appearing, comfortable, no acute distress, well developed, alert and awake Nutritional Appearance: overweight Orientation/consciousness: patient oriented x3 Limitations: other limitations (left sided lower leg prosthesis) HEENT Head: Yes normal to inspection, Yes normocephalic and Yes atraumatic Ears: hearing grossly normal bilaterally Eyes General: appearance normal, both eyes and all related structures Neck Neck: Yes normal visual inspection and Yes trachea midline Chest Chest palpation & inspection: normal inspection of the chest Resp Effort & Inspection: normal respiratory effort and able to speak in complete sentences Cardio Rate: regular rate GI Inspection: Yes normal to inspection General: Yes no CVA tenderness Back/Spine/Pelvis Back: no CVA tenderness Skin General skin exam: no rashes or lesions noted Neuro General: patient oriented x3 Extrem General: Yes normal to inspection Psych Appearance: grossly normal and well kempt Mental Status: mental status grossly normal Speech and movement: Normal speech and movement present and Clear speech present Affect: normal affect Attitude: cooperative Thought process: Normal thought process present Thought content: Normal thought content present Insight: Fair insight present (Psych) Judgement: Fair judgement present (Psych) Results AMB Urinalysis, Automated UA Leukoctes 500 Hiral/uL Last Edit by ANDREW Bauer on 11/04/23 14:33 UA Nitrite Negative Last Edit by ANDREW Bauer on 11/04/23 14:33 UA Urobilinogen 0.2 mg/dL Last Edit by Cecille Aguiar CCM on 11/04/23 14:33 UA Protein 15 mg/dL Last Edit by Cecille Aguiar CCM on 11/04/23 14:33 UA pH 6.0 Last Edit by Cecille Aguiar CCM on 11/04/23 14:33 UA Blood 10 Iron/uL Last Edit by ANDREW Bauer on 11/04/23 14:33 UA Specific [place] 1.015 Last Edit by Cecille Aguiar CCM on 11/04/23 14:33 UA Ketone Positive Last Edit by ANDREW Bauer on 11/04/23 14:33 UA Bilirubin 0 mg/dL Last Edit by Cecille Aguiar CCM on 11/04/23 14:33 UA Glucose 0 mg/dL Last Edit by Cecille Aguiar CCM on 11/04/23 14:33 Results Reviewed Results Reviewed: Laboratory Last Values Urine pH (Auto) 6.0 11/04/23 14:31 Specific [place] (Auto) 1.015 11/04/23 14:31 Urine Protein (Auto) 15 mg/dL 11/04/23 14:31 Glucose (UA)(Auto) 0 mg/dL 11/04/23 14:31 Urine Ketones (Auto) Positive 11/04/23 14:31 Urine Blood (Auto) 10 Iron/uL 11/04/23 14:31 Urine Nitrite (Auto) Negative 11/04/23 14:31 Urine Bilirubin (Auto) 0 mg/dL 11/04/23 14:31 Urine Urobilinogen (Auto) 0.2 mg/dL 11/04/23 14:31 Leukocyte Esterase (Auto) 500 Hiarl/uL 11/04/23 14:31 Date of Service: 07/19/23 EXAMINATION: US RETROPERITONEAL COMPLETE (RENAL) FINDINGS: RIGHT KIDNEY: 10.8 x 5.3 x 4.8 cm (SAG x AP x TRV). The kidney is normal in size, contour, and echogenicity. Renal cortical thickness is normal. No calculi or focal parenchymal lesions. No hydronephrosis. LEFT KIDNEY: 9.2 x 5.1 x 3.9 cm (SAG x AP x TRV). The kidney is normal in size, contour, and echogenicity. Renal cortical thickness is normal. No calculi or focal parenchymal lesions. No hydronephrosis. BLADDER: Well distended and normal. Bilateral ureteral jets are demonstrated. Prevoid bladder volume is 181 mL. There is no postvoid residual. IMPRESSION: 1. No nephrolithiasis or hydronephrosis. 2. Postvoid bladder volume of essentially 0 mL with visualization of the bilateral ureteral jets. Assessment & Plan Assessment & Plan (1) Urinary incontinence: Code(s): R32 - Unspecified urinary incontinence Category: Medical (2) Lower urinary tract symptoms: Code(s): R39.9 - Unspecified symptoms and signs involving the genitourinary system Category: Medical Plan In office urinalysis results reviewed with the patient today; as noted above; will send for urine culture. Continue Gemtesa 75 mg daily. Recent retroperitoneal ultrasound results reviewed with the patient today; as noted above. Discussed bladder triggers/irritants. Discussed pelvic floor exercises information provided. Will schedule for in office urodynamics for further assessment evaluation. Orders: Orders AMB Urinalysis Automated Today Z13.9 - Encounter for screening, unspecified Urine Culture Today R32 - Unspecified urinary incontinence Medications: Refilled vibegron (Gemtesa) 75 mg PO DAILY 90 days 90 tabs 1RF Discontinued doxycycline hyclate Discontinued Reason: Patient Completed Course 100 mg PO BID 7 days 14 tabs 0RF Patient Instructions: The patient had an opportunity to ask questions regarding the treatment plan. All questions were answered. Physical exam, labs, and imaging were discussed and reviewed in detail. As well as risks, benefits, and discussion of treatment choices. No major barriers to understanding were identified. The patient expressed understanding and agreement with the above treatment plan. The patient was made aware they should contact our office by phone for worsening of their current condition, the appearance of new symptoms, or with any questions or concerns. Compliance is encouraged with any medications and follow up testing that is ordered. It is a privilege to be allowed the opportunity to participate in? your urological care.? Again, if you have any questions or concerns If you have any questions or concerns please do not hesitate to contact me. The office is [phone]. This note is constructed using voice recognition software. While every effort has been made to ensure accuracy digital sales planner errors may have been included. Yours sincerely, DORIAN Holt Coding Level of Care Code Est Pt Level 3 (65446) Complex EM visit Add On G2211 Diagnoses Urinary incontinence R32 Lower urinary tract symptoms R39.9
== END 2023-11-04 14:56 | disposition home or self-care (01) ==
PROVIDERS: PCP Hospitalist; Referring Provider Hospitalist; Visit Provider Nurse Practitioner Family
DX: R32 Unspecified urinary incontinence (principal); R39.9 Unspecified symptoms and signs involving the genitourinary system; Z13.9 Encounter for screening, unspecified
CPT/HCPCS: 99213; G2211

== ENCOUNTER → 2024-01-17 13:11 | Outpatient (BNV) | payer OTHER, SELFPAY | PROVIDERS: PCP Hospitalist; Visit Provider Urology | DX: R39.9 Unspecified symptoms and signs involving the genitourinary system (principal); R32 Unspecified urinary incontinence; M62.89 Other specified disorders of muscle | CPT/HCPCS: 81003 ==

== ENCOUNTER 2024-01-17 16:39 | Outpatient (REF) | payer OTHER, SELFPAY | END 2024-01-17 16:40 | disposition home or self-care (01) | LOC: HO.LNP 16:39 | PROVIDERS: Visit Provider Urology | DX: R39.9 Unspecified symptoms and signs involving the genitourinary system (principal); R32 Unspecified urinary incontinence; M62.89 Other specified disorders of muscle | CPT/HCPCS: 87086 ==

== ENCOUNTER 2024-03-13 16:34 | Outpatient (REF) | payer OTHER, SELFPAY ==
[2024-03-13 17:07] LABS: Appearance Urine Clear; Color Urine Yellow; Glucose Urine UA Negative (Negative); Leukocyte Esterase Urine Small (1+) (Negative); Nitrite Urine Negative (Negative); PH 5.5 (5.0-9.0); Specific Gravity - Urine 1.015 (1.005-1.025); UMIC TRIGGER UA YES; Urine Blood Negative (Negative); Urine Ketones Negative (Negative); Urine Protein Negative (Neg-Trace)
[2024-03-13 17:12] LABS: Bacteria Urine None Seen (None Seen); Hyaline Casts Urine 0-2 /LPF (0-2); RBC Urine 0-2 /HPF (0-2); Squamous Epithelial Cell Urine 0-2 /HPF (0-2)
== END 2024-03-13 16:35 | disposition home or self-care (01) ==
LOC: HO.LAB 16:34
PROVIDERS: PCP Hospitalist; Visit Provider Urology
DX: R39.9 Unspecified symptoms and signs involving the genitourinary system (principal); R32 Unspecified urinary incontinence; M62.89 Other specified disorders of muscle
CPT/HCPCS: 81001; 87086

== ENCOUNTER 2024-04-17 11:45 | Outpatient (AMB) | payer OTHER, SELFPAY ==
--- NOTE | 2024-04-17 11:52 | A.OFFVIS_ITS ---
Intake Visit Reasons: follow up Intake Note: Patient is present for follow up Urology Medication:gemtesa,nystatin Antibiotic Allergy:none Blood Thinner:apixaban Last PVR:0ml Electroencephalograph Technologist Required: No Allergies octopus Allergy (Severe, Verified 04/17/24 16:28) Anaphylaxis oxybutynin Allergy (Severe, Verified 04/17/24 16:28) Difficulty Swallowing tolterodine Allergy (Severe, Verified 04/17/24 16:28) Difficulty Swallowing aspirin Allergy (Unknown, Verified 04/17/24 16:28) anaphylaxis citalopram Allergy (Unknown, Verified 04/17/24 16:28) Unknown empagliflozin [From Jardiance] Allergy (Unknown, Verified 04/17/24 16:28) Unknown Fish Containing Products Allergy (Unknown, Verified 04/17/24 16:28) Unknown gabapentin Allergy (Unknown, Verified 04/17/24 16:28) hives hydrocodone [Vicodin] Allergy (Unknown, Verified 04/17/24 16:28) hives naproxen [Naprosyn] Allergy (Unknown, Verified 04/17/24 16:28) anaphylaxis oxycodone [Percocet] Allergy (Unknown, Verified 04/17/24 16:28) hives pregabalin [From Lyrica] Allergy (Unknown, Verified 04/17/24 16:28) Unknown sertraline Allergy (Unknown, Verified 04/17/24 16:28) Unknown shellfish derived Allergy (Unknown, Verified 04/17/24 16:28) Unknown peanut Allergy (Verified 04/17/24 16:28) Anaphylaxis solifenacin Adverse Reaction (Verified 04/17/24 16:28) phlegm Vicodin Allergy (Unknown, Uncoded 04/17/24 16:28) hives Medication List - Last Reconciled 04/17/24 by DORIAN Holt albuterol sulfate 90 mcg/actuation 1 inh inhalation QID PRN alcohol swabs pad topical TID amlodipine 5 mg PO DAILY apixaban 5 mg PO BID atorvastatin 10 mg PO DAILY benzonatate 100 mg PO TID blood sugar diagnostic As directed cholecalciferol (vitamin D3) 50 mcg PO BEDTIME citalopram 40 mg PO DAILY diclofenac sodium 1% grams topical diphenhydramine HCl (Benadryl) 25 mg PO TID PRN disposable gloves (Nitrile Exam Gloves) As directed- pt requesting size XL dulaglutide (Trulicity) mg subcut empagliflozin (Jardiance) 10 mg PO QAM ezetimibe 10 mg PO DAILY fluocinonide 0.05% appl topical DAILY fluticasone propionate 50 mcg/actuation 0 mcg intranasal BID hydrochlorothiazide 25 mg PO QAM hydroxyzine HCl 25 mg PO DAILY incontinence pad, liner, disp (Poise Pads) As directed incontinence pad, liner, disp As directed- pt requesting 6 per day insulin glargine (Lantus Solostar U-100 Insulin) units subcut BEDTIME insulin lispro 30 units subcut TID lancets As directed lidocaine 5% 1 patch topical DAILY PRN loratadine 10 mg PO DAILY lorazepam 1 mg PO BID losartan 100 mg PO DAILY metformin 850 mg PO BID metoclopramide HCl (Reglan) 10 mg PO .six times a day metoprolol succinate ER 100 mg PO DAILY montelukast 10 mg PO DAILY nitrofurantoin monohyd/m-cryst 100 mg (Macrobid) 100 mg PO BID 7 days nitrofurantoin monohyd/m-cryst 100 mg (Macrobid) 100 mg PO BID 3 days nystatin 1 appl topical TID 30 days omeprazole 20 mg PO DAILY oxycodone 30 mg PO TID PRN pen needle, diabetic As directed temazepam 30 mg PO BEDTIME PRN tizanidine 4 mg PO TID PRN triamcinolone acetonide 0.025% appl topical underpads (Bed Underpads) As directed- pt requesting 3 per night vibegron (Gemtesa) 75 mg PO DAILY 90 days HPI Comments Details: Maribell is a pleasant 63-year-old female patient of Dr. Hilario. She has a past medical history of urinary incontinence, hypertension, diabetes, urinary tract infections, gastroparesis, constipation, chronic back pain, left leg below the knee amputation, hypertension, and history of a PE currently on Eliquis. She is being follow-up on today via telehealth for her lower urinary tract symptoms and history of recurrent urinary tract infections. She discusses having come to the office last month to undergo urodynamics however was unable to as she had been experiencing episodes of hypoglycemia and diarrhea. She is enquiring reschedule at this time. She reports no improvement in her lower urinary tract symptoms with 75 mg of Gemtesa daily. She continues with unsensed and sensed urinary incontinence. She continues to report episodes of urinary urgency and frequency. She reports utilizing 4-6 Lyric pads per day. She has previously trialed oxybutynin, tolterodine, and VESIcare. Previous workup has included a retroperitoneal ultrasound 07/30 noting bilateral kidneys with no lesions, hydronephrosis, or calculi noted. The bladder is well distended and normal. Bilateral ureteral jets are demonstrated. Pre void bladder volume is approximately 180 mL. There is no postvoid residual. She otherwise denies dysuria, hematuria, fever, flank pain, and or chills. When asked she denies any urological issues or concerns at this time. [facility] Medical History Gastroparesis COVID-19 UTI (urinary tract infection) Amputated toe of right foot Ganglion cyst Urinary incontinence HTN (hypertension) Diabetes mellitus Urinary incontinence Surgical History History of left below knee amputation S/P carpal tunnel release History of surgical removal of ganglion cyst S/P rotator cuff repair History of surgery Social History Alcohol intake: never Patient Tobacco Use Status: Never used Tobacco Substance Use Type: Marijuana Review of Systems Const Reports no additional complaints Eyes Reports no additional complaints ENT Reports no additional complaints Card Reports as per HPI Resp Reports no additional complaints GI Reports as per HPI Reports as per HPI Musc Reports as per HPI Neuro Reports no additional complaints Psych Reports no additional complaints Endo Reports as per HPI Rip/Lymph Reports as per HPI Aller/Immun Reports no additional complaints Physical Exam Const General: cooperative Orientation/consciousness: oriented to person Resp Effort & Inspection: able to speak in complete sentences Neuro General: oriented to person Psych Attitude: cooperative Thought content: Normal thought content present Insight: Fair insight present (Psych) Judgement: Fair judgement present (Psych) Telehealth Telehealth Telehealth Platform: Telephone Location of provider rendering services: practice address Location of patient: address on file Patient Identification confirmed using: Name, : Yes Telehealth method: video Patient verbally consented to treatment: Yes Patient verbally consented to billing insurance company: Yes Patient informed of any privacy concerns related to visit: Yes Minutes spent on Phone/Video with Pt.: 15 Assessment & Plan Assessment & Plan (1) Lower urinary tract symptoms: Code(s): R39.9 - Unspecified symptoms and signs involving the genitourinary system Category: Medical (2) Urinary incontinence: Code(s): R32 - Unspecified urinary incontinence Category: Medical Plan Continue Gemtesa 75 mg daily. Discussed importance of timed/scheduled voiding given patient's decreased mobility Discussed bladder triggers/irritants. Discussed pelvic floor exercises. Will re-schedule for in office urodynamics for further assessment evaluation. Medications: Discontinued nitrofurantoin monohyd/m-cryst 100 mg (Macrobid) must administer with a meal/food Discontinued Reason: Patient Completed Course 100 mg PO BID 7 days 14 caps 0RF nitrofurantoin monohyd/m-cryst 100 mg (Macrobid) must administer with a meal/food Discontinued Reason: Patient Completed Course 100 mg PO BID 3 days 6 caps 0RF Patient Instructions: The patient had an opportunity to ask questions regarding the treatment plan. All questions were answered. Physical exam, labs, and imaging were discussed and reviewed in detail. As well as risks, benefits, and discussion of treatment choices. No major barriers to understanding were identified. The patient expressed understanding and agreement with the above treatment plan. The patient was made aware they should contact our office by phone for worsening of their current condition, the appearance of new symptoms, or with any questions or concerns. Compliance is encouraged with any medications and follow up testing that is ordered. It is a privilege to be allowed the opportunity to participate in? your urological care.? Again, if you have any questions or concerns If you have any questions or concerns please do not hesitate to contact me. The office is [phone]. This note is constructed using voice recognition software. While every effort has been made to ensure accuracy laser machine operator errors may have been included. Yours sincerely, DORIAN Holt Coding Level of Care Code Tele Est Pt Level 3 (11676) Diagnoses Lower urinary tract symptoms R39.9 Urinary incontinence R32
--- OUTSIDE RECORDS SUMMARY | 2024-04-18 20:46 | XMS_ITS ---
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 Name Role Phone ELLA MICHAEL Primary Care Provider Adolfo Vilchis Unavailable [phone] Allergies Allergen (clinical drug ingredient) Drug/Non Drug Allergy documented on EMR Reaction Allergy Type Onset Date Status Fish derivative (substance) fish (uncoded) Unknown Allergy Active Octopus Octopus (uncoded) anaphylaxis Allergy Active peanuts (uncoded) Unknown Allergy Ac tive Shellfish (FN) shellfish (uncoded) Unknown Allergy Active aspirin Aspirin Unknown Drug Allergy Active gabapentin Gabapentin Unknown Drug Allergy Activ e pregabalin Lyrica Unknown Drug Allergy Active naproxen Naprosyn Unknown Drug Allergy Active empagliflozin Jardiance Yeast infection Drug Allergy Active fluocinolone Fluocinolone Unknown Drug Allergy A ctive solifenacin Solifenacin Unknown Drug Allergy Act kathleen REASON FOR VISIT f/up from the last appointment Medications Medication SIG (Take, Route, Frequency, Duration) Notes Start Date End Date Status Albuterol Sulfate HFA 108 (90 Base) MCG/ACT 2 puffs as needed Inhalation every 6 hrs Active Easy Touch Lancets 28G - as directed for 30 days Active LORazepam 1 MG 1 tablet at bedtime as needed Orally Once a day Active Temazepam 30 MG 1 capsule at bedtime as needed Orally Once a day Not-Taking Ventolin HFA 108 (90 Base) MCG/ACT 1 puff as needed Inhalation every 4 hrs Active Zofran 4 MG as directed Orally for 7 days 07/07/2018 Unknown Omeprazole 40 MG 1 capsule 1/2 to 1 hour before morning meal Orally Once a day for 30 days 04/18/2024 Active clonazePAM 1 MG 2 tablets in the am and 2 tablets in pm Orally twice a day CHD Unknown Fluconazole 50 MG 1 tablet Orally Daily for 10 day(s) 06/16/2020 Unknown Ozempic (0.25 or 0.5 MG/DOSE) 2 MG/3ML as directed Subcutaneous once a week Active Fluticasone Propionate 50 MCG/ACT SPRAY TWICE INTO EACH NOSTRIL ONCE A DAY for 30 Unknown metroNIDAZOLE 0.75 % _insert 1 APPLICATORFUL VAGINALLY ONCE A DAY AT BEDTIME FOR 10 DAYS for 10 Unknown Azithromycin 250 MG 2 tablet day one 1 tab daily for 4 days Orally daily for 5 days 03/19/2022 Not-Taking Trulicity 3 MG/0.5ML inject the content of 1 pen under the skin each week as directed Subcutaneous weekly for 30 days 02/23/2022 Not-Taking Admelog SoloStar 100 UNIT/ML 11 units Subcutaneous three times a day for 30 Unknown Benzonatate 100 MG 1 capsule as needed Orally Three times a day for 7 days 10/25/2022 Not-Taking Tessalon Perles 100 MG 1 capsule as need ed Orally Three times a day for 7 days 03/19/2022 Not-Taking predniSONE 10 MG 1 tablet Orally Once a day for 7 days 10/06/2023 Not-Taking Cephalexin 500 MG 1 capsule Orally every 8 hours for 7 days 09/21/2023 Not-Taking Trulicity 1.5 MG/0.5ML inject the conten t of 1 pen under the skin each week as directed Subcutaneous weekly for 30 days 02/23/2022 Not-Taking oxyCODONE HCl 30 mg TAKE 1 TABLET BY MOUTH 3 (THREE) TIMES A DAY NEEDED FOR PAIN by mouth 3 times a day for 14 days 01/02/2024 Not-Taking Doxycycline Hyclate 100 MG 1 capsule Orally Twice a day for 7 days 12/06/2023 Not-Taking Benzonatate 100 MG 1 capsule as needed Orally Three times a day for 14 days 02/29/2024 Not-Taking Benzonatate 100 MG 1 capsule as needed Orally Three times a day for 7 days 12/06/2023 Not-Taking predniSONE 20 MG 1 tablet Orally Once a day for 7 days 12/06/2023 Not-Taking tiZANidine HCl 4 mg 1 tablet oral three times a day prn for 10 days Active Ezetimibe 10 mg TAKE 1 TABLET BY MOUTH ONCE DAILY for 30 days Active Metoprolol Succinate ER 100 mg TAKE 1 TABLET BY MOUTH ONCE DAILY for 30 days Active predniSONE 20 MG 1 tablet Orally Once a day for 7 days 02/29/2024 Not-Taking Montelukast Sodium 10 mg TAKE 1 TABLET B Y MOUTH ONCE A DAY for 30 days Active Losartan Potassium 100 mg TAKE 1 TABLET BY MOUTH ONCE DAILY for 30 days Active Tobramycin 0.3 % 1 drop into affected eye Ophthalmic every 4 hrs for 7 days 02/01/2024 Not-Taking metFORMIN HCl 850 mg TAKE ONE TABLET BY MOUTH two (2) times a day. TAKE WITH MEALS for 30 days Active amLODIPine Besylate 5 mg TAKE ONE TABLET BY MOUTH ONCE A DAY for 30 days Active Atorvastatin Calcium 10 mg TAKE 1 TABLET BY MOUTH ONCE DAILY for 30 days Active FreeStyle Lite Test - USE TO TEST FINGER STICK BLOOD SUGAR 3 (THREE) TIMES A DAY for 30 Active Loratadine 10 mg TAKE 1 TABLET BY MOUTH ONCE DAILY for 30 Active Fluconazole 150 mg TAKE 1 TABLET BY MOUTH EVERY 3 DAYS for 3 Not-Taking Vitamin D3 50 MCG (2000 UT) TAKE 1 CAPSULE BY MOUTH ONCE DAILY for 30 days Active Eliquis 5 mg TAKE ONE TABLET BY MOUTH two (2) times a day 30 for 30 Active hydrOXYzine HCl 25 mg TAKE 1 TABLET BY MOUTH EVERY NIGHT AT BEDTIME NEEDED FOR ITCH for 30 days Active True Comfort Safety Lancets - USE TO TEST FINGER STICK BLOOD SUGAR 3 (THREE) TIMES A DAY for 30 Active Diclofenac Sodium 1 % APPLY TO THE AFFECTED AREA 3 (THREE) TIMES A DAY DIRECTED for 30 Active Rkrcdngx-Fzrjenbgo-TU 1 % 4 drops into affected ear Otic Three times a day for 7 days 05/31/2023 Active Meclizine HCl 25 MG 1 tablet as needed Orally every 12 hrs for 10 days 05/31/2023 Active True Comfort Pen Cogswell 32G X 4 MM USE TO INJECT insulin 5 TIMES A DAY for 25 Active Lidocaine 5 % Apply 1 patch to the affected area for 12 hours a day. Remove for 12 hours. NEEDED FOR most painful AREA for 30 Active Fmwwkcht-Wrnfawdlf-FL 1 % 4 drops into affected ear Otic Three times a day for 7 days 03/18/2023 Not-Taking Ofloxacin 0.3 % 10 drops into affected ear Otic Once a day for 7 days 03/18/2023 Not-Taking Alcohol Pads 70 % USE TOPICALLY THREE TIMES DAILY DIRECTED for 30 Active hydroCHLOROthiazide 25 mg TAKE 1 TABLET BY MOUTH EVERY MORNING for 30 Active Lantus SoloStar 100 UNIT/ML INJECT 90 UNITS UNDER THE SKIN ONCE A DAY DIRECTED for 30 Active Omeprazole 20 mg TAKE 1 CAPSULE BY MOUTH 30 MINUTES BEFORE morning meal for 30 Active Lidocaine HCl Urethral/Mucosal 2 % APPLY SPARINGLY TO THE AFFECTED AREA ON RIGHT TO THE ARM AND CHEST 2 TO 3 TIMES A DAY IF ITCHY for 30 Active Econazole Nitrate 1 % 1 application Externally twice a day for 30 days 11/05/2022 Active Metoclopramide HCl 10 MG 1 tablet before meals Orally Twice a day for 30 days 11/01/2022 Active Insulin Lispro (1 Unit Dial) 100 unit/mL INJECT 30 UNITS UNDER THE SKIN 3 (THREE) TIMES A DAY for 30 Active Serevent Diskus 50 MCG/DOSE Inhale 1 Puff into the lungs 2 times daily for 30 days. for 30 Active Myrbetriq 50 MG 1 tablet Orally twice a day for 30 Urologist Active Ondansetron HCl 4 MG 1 tablet Orally twice a day for 7 days 11/05/2022 Active FreeStyle Lite - as directed to check blood sugars Dx: E11.9 in vitro three times daily for 30 days 02/24/2018 Active EpiPen 2-Amadeo 0.3 MG/0.3ML as directed Injection once as needed for 30 days 10/02/2020 Active Carafate 1 GM/10ML 10 ml on an empty stomach Orally Twice a day for 30 day(s) 05/04/2021 Not-Taking Xopenex 1.25 MG/3ML 3 ml Inhalation three times daily for 15 Active ProAir HFA 108 (90 Base) MCG/ACT 2 puffs Inhalation Every 4 hours,PRN:for wheezing for 17 Not-Taking Cyproheptadine HCl 4 MG TAKE ONE TABLET BY MOUTH 3 (THREE) TIMES A DAY NEEDED FOR ITCH 30 30 for 30 Active Mometasone Furoate 0.1 % Apply sparingly first before calcipotriene twice a day to affected areas on arms and chest as needed 30 30 for 30 Active Citalopram Hydrobromide 40 MG 2 tablet Orally Once a day for 30 day(s) Psy Active Flovent HFA 110 MCG/ACT 2 puffs Inhalati on 2 times a day,Instr:rinse mouth and throat after use for 30 Active Nebulizer/Tubing/Mouthpie ce - as directed for treatment of Dx: J45.30 inhalation every 4-6 hours prn for 30 days 06/26/2019 Active Azelastine HCl 0.1 % 1 puff in each nostril Nasally Twice a day Active Problems Problem Type SNOMED Code ICD Code Onset Dates Problem Status W/U Status Risk Notes Problem Dysphagia (58122378) Dysphagia, unspecified (R13.10) Active confirmed Vital Signs Temperature 97.1 degrees Fahrenheit 04/18/20 24 Oximetry 91 % 04/18/2024 Heart Rate 88 /min 04/18/2024 Blood pressure systolic 130 mm Hg 04/18/20 24 Blood pressure diastolic 74 mm Hg 024 Weight 212.8 lbs 04/18/2024 BMI 38.62 kg/m2 04/18/2024 Height 62.24 in 04/18/2024 Encounters Encounter Location Date Provider Diagnosis [facility] [address] [address] 04/18/2024 Adolfo Efraínindia Diabetes mellitus du e to underlying condition with diabetic neuropathy, unspecified E08.40 ; Essential (primary) hypertension I10 ; Chronic kidney disease, stage 3 unspecified N18.30 and Dysphagia, unspecified R13.10 Assessments Encounter Date Diagnosis (ICD Code) Assessment Notes Treatment Notes Treatment Clinical Notes Section Notes 04/18/2024 Diabetes mellitus due to underlying condition with diabetic neuropathy, unspecified (ICD-10 - E08.40) Maribell is a 63-year-old lady with DM2, hypertension, hyperlipidemia, asthma, insomnia and anxiety here for follow up. Plan is as follows: Type II diabetes mellitus. Hb A1c improve energy 6.1.She is on right medications. She has seen her grill associate in the past 1 year. Foot care discussed. Check A1c. Hypertension. Blood pressure is within reasonable limits. Continue current regimen. DVT. She is on Eliquis 5 MG twice a day. Lumbar radiculopathy. She was on oxycodone 30 MG as needed and her urine toxicology screen was negative. Initially patient mentioned that she was told by urologist to stop taking pain meds while she is on antibiotics. We checked with urology office and they did not give such orders. Today she mentioned that there was a misunderstanding and she forgot to take her pills.. She has used gabapentin and Lyrica with no success. Continue Tylenol arthritis 650 mg 2 tablets twice a day and 1 tablet in the afternoon for breakthrough pains. Urine is positive for benzodiazepines because she is on temazepam. Referred to [facility] Dr. Iraheta. Chronic kidney disease stage 3. She does not appear to be in volume overload. Advised appropriate hydration. Avoid NSAIDs. She sees Dr. Lakhani. Asthma. She uses her inhalers as needed. Generalized anxiety disorder. Mood is stable on Lorazepam 3 times a day. She has a psychiatrist and a therapist. GERD/gastroparesis. Continue Reglan 10 MG twice a day. General health concerns discussed with patient. 04/18/2024 Essential (primary) hypertension (ICD-10 - I10) Maribell is a 63-year-old lady with DM2, hypertension, hyperlipidemia, asthma, insomnia and anxiety here for follow up. Plan is as follows: Type II diabetes mellitus. Hb A1c improve energy 6.1.She is on right medications. She has seen her grill associate in the past 1 year. Foot care discussed. Check A1c. Hypertension. Blood pressure is within reasonable limits. Continue current regimen. DVT. She is on Eliquis 5 MG twice a day. Lumbar radiculopathy. She was on oxycodone 30 MG as needed and her urine toxicology screen was negative. Initially patient mentioned that she was told by urologist to stop taking pain meds while she is on antibiotics. We checked with urology office and they did not give such orders. Today she mentioned that there was a misunderstanding and she forgot to take her pills.. She has used gabapentin and Lyrica with no success. Continue Tylenol arthritis 650 mg 2 tablets twice a day and 1 tablet in the afternoon for breakthrough pains. Urine is positive for benzodiazepines because she is on temazepam. Referred to [facility] Dr. Iraheta. Chronic kidney disease stage 3. She does not appear to be in volume overload. Advised appropriate hydration. Avoid NSAIDs. She sees Dr. Lakhani. Asthma. She uses her inhalers as needed. Generalized anxiety disorder. Mood is stable on Lorazepam 3 times a day. She has a psychiatrist and a therapist. GERD/gastroparesis. Continue Reglan 10 MG twice a day. General health concerns discussed with patient. 04/18/2024 Chronic kidney disease, stage 3 unspecified (ICD-10 - N18.30) Maribell is a 63-year-old lady with DM2, hypertension, hyperlipidemia, asthma, insomnia and anxiety here for follow up. Plan is as follows: Type II diabetes mellitus. Hb A1c improve energy 6.1.She is on right medications. She has seen her grill associate in the past 1 year. Foot care discussed. Check A1c. Hypertension. Blood pressure is within reasonable limits. Continue current regimen. DVT. She is on Eliquis 5 MG twice a day. Lumbar radiculopathy. She was on oxycodone 30 MG as needed and her urine toxicology screen was negative. Initially patient mentioned that she was told by urologist to stop taking pain meds while she is on antibiotics. We checked with urology office and they did not give such orders. Today she mentioned that there was a misunderstanding and she forgot to take her pills.. She has used gabapentin and Lyrica with no success. Continue Tylenol arthritis 650 mg 2 tablets twice a day and 1 tablet in the afternoon for breakthrough pains. Urine is positive for benzodiazepines because she is on temazepam. Referred to [facility] Dr. Iraheta. Chronic kidney disease stage 3. She does not appear to be in volume overload. Advised appropriate hydration. Avoid NSAIDs. She sees Dr. Lakhani. Asthma. She uses her inhalers as needed. Generalized anxiety disorder. Mood is stable on Lorazepam 3 times a day. She has a psychiatrist and a therapist. GERD/gastroparesis. Continue Reglan 10 MG twice a day. General health concerns discussed with patient. 04/18/2024 Dysphagia, unspecified (ICD-10 - R13.10) aMribell is a 63-year-old lady with DM2, hypertension, hyperlipidemia, asthma, insomnia and anxiety here for follow up. Plan is as follows: Type II diabetes mellitus. Hb A1c improve energy 6.1.She is on right medications. She has seen her grill associate in the past 1 year. Foot care discussed. Check A1c. Hypertension. Blood pressure is within reasonable limits. Continue current regimen. DVT. She is on Eliquis 5 MG twice a day. Lumbar radiculopathy. She was on oxycodone 30 MG as needed and her urine toxicology screen was negative. Initially patient mentioned that she was told by urologist to stop taking pain meds while she is on antibiotics. We checked with urology office and they did not give such orders. Today she mentioned that there was a misunderstanding and she forgot to take her pills.. She has used gabapentin and Lyrica with no success. Continue Tylenol arthritis 650 mg 2 tablets twice a day and 1 tablet in the afternoon for breakthrough pains. Urine is positive for benzodiazepines because she is on temazepam. Referred to [facility] Dr. Iraheta. Chronic kidney disease stage 3. She does not appear to be in volume overload. Advised appropriate hydration. Avoid NSAIDs. She sees Dr. Lakhani. Asthma. She uses her inhalers as needed. Generalized anxiety disorder. Mood is stable on Lorazepam 3 times a day. She has a psychiatrist and a therapist. GERD/gastroparesis. Continue Reglan 10 MG twice a day. General health concerns discussed with patient. Plan Of Treatment Medication Medication Name Sig Start Date Stop Date Notes Omeprazole 40 MG 1 capsule 1/2 to 1 h our before morning meal Orally Once a day for 30 days 04/18/2024 Pending Test Test Name Order Date Albumin/Creatinine Ratio,Urine-[id number] Lipid Panel-[id number] 04/18/2024 Comp. Metabolic Panel [id number] 2023 Next Appt Details Follow Up: schedule appt, Re ason: Provider Name:ELLA MICHAEL , 05/23/2024 09:30:00 AM, [address] [place] [address], [id number], Procedure Notes * Category Sub-Category Detail Notes Urinalysis Protein: Negative Ketones: Trace Leukocytes: Negative Nitrates: Negative pH: 6 Spec [place]: 1.010 Glucose: Negative Blood: Negative Bilirubin: Negative Urobili: Negative Progress Notes * MARIBELL TAYLOR HDOB: [birth year] (63 yo F)Acc No.[id number]:04/18/2024 Progress Notes Patient:?MARIBELL TAYLOR Provider:?Adolfo Vilchis :1960???Age:63 Y???Sex:Female D ate:04/18/2024 Address:[address] [place] [address] [id number] Pcp:ELLA MICHAEL Subjective: * Chief Complaints: * ???1. F/up from the last jeffrey ointment. * HPI: ???Internal Medicine:?Maribell is a 63-year-old lady with DM2, hypertension, hyperlipidemia, asthma, insomnia and anxiety here for follow-up. She states that she has a blister on the first digit of the right foot. She has been using Neosporin and slowly improving. She continues nasal congestion, with yellow discharging. She has dry cough. No fever, chills. She also states that she has sensation of something stuck in her throat, and she states that it worsens after eating and she also experiences acid reflux. she also endorses increased urinary Frequency.? That has been chronic.? She denies urgency, burning sensation with urination, flank pain, hematuria.? She states that she has a follow-up with her urologist for urethral sling. Denies any other active issues. * ROS:?General/Constitutional:?Overall health?Good.?Change in appetite?denies.?Chills?denies.?Fever?denies.?Lightheadedness?denies.?Night sweats?denies.?Sleep disturbance?denies.?Weight gain?denies.?Weight loss?denies.?Neurologic:?Difficulty speaking?denies.?Dizziness?denies.?Gait abnormality?denies.?Headache?denies.?Loss of strength?denies.?Memory loss?denies.?Seizures?denies.?Tingling/Numbness?denies ?.?Ophthalmologic:?Blurred vision?denies.?Discharge?denies.?Dry eye?denies.?Red eye?denies.?ENT:?Change in Voice?Denies.?Cold Symptoms?Denies.?Cough?Admits Dry cough..?Dizziness?Denies.?Nasal Congestion?Denies.?Otalgia?Denies.?postnasal drip?Admit.?Blocked ear?denies.?Nosebleed?denies.?Pain?denies.?Snoring?denies.?Cardiovascular:?Diaphoresis?Denies.?Pedal Edema?Denies.?PND (Paroxsymal nocturnal dyspnea)?Denies.?Chest pain?denies.?Difficulty laying flat?denies.?Dyspnea on exertion?denies.?Heart murmur?denies.?Orthopnea?denies.?Respiratory:?Snoring?denies.?Asthma?admits.?Breathing problems?denies.?Cough?admits,non-productive,.?Shortness of breath with exertion?denies.?Sputum production?denies.?Wheezing?denies.?Gastrointestinal:?Change in bowel habits?denies.?Constipation?denies.?Decreased appetite?denies.?Diarrhea?denies.?Heartburn?denies.?Nausea?denies.?Vomiting?sarita es.?Musculoskeletal:?tingling/numbness?Denies.?myalgias?Denies.?Joint Swelling?Denies.?extremeties?normal.?Arthritis?denies.?Back problems?denies.?Carpal tunnel?denies.?Joint stiffness?denies.?Muscle aches?admits.?Painful joints?denies.?Endocrine:?Bowel Changes?Denies.?Breast Discharge?Denies.?poor libido?Denies.?Cold intolerance?denies.?Excessive sweating?denies.?Excessive thirst?denies.?Frequent urination?denies.?Thyroid problems?denies.?Skin:?Bruising?Denies.?Eczema?denies.?Hair changes?denies.?Rash?denies.?Skin lesion(s)?denies.?Psychiatric:?Anxiety?denies.?Depressed mood?denies.?Difficulty sleeping?denies.?Nervous breakdown?denies.?Substance abuse?denies.?Urology:?abnormal menstrual bleeding?denies.?blood in urine?denies.?burning on urination?denies.?difficulty urinating?denies.?discharge?denies.?dysuria?denies.? * Medical History:?Hypertensio n, benign, Hyperlipidemia, IDDM T 2, [facility], Urinary incontinence and she sees Dr. Garcia at [place], Left shoulder pain and she sees Dr. Watters and she is also seen Dr. Diaz, Asthma and she sees Pul at [facility], Generalized anxiety disorder and she is seen by a psychiatrist and she goes to [facility], Pain management and has seen Dr. Montiel at [facility] in past, Peripheral arterial disease and status post amputation below knee joint currently on Coumadin and goes to Coumadin clinic, Lumbar radiculopathy on oxycodone 30 mg 3 times a day, DVT leg LE, sleep apnea see Pul at [facility], Left leg amputation below knee joint, Chronic kidney disease stage 3, Dr. Lakhani, Personal history of COVID-19, - [facility]. * Medications:?Taking Ozempic (0.25 or 0.5 MG/DOSE) 2 MG/3ML Solution Pen-injector as directed Subcutaneous once a week , Taking Ventolin HFA 108 (90 Base) MCG/ACT Aerosol Solution 1 puff as needed Inhalation every 4 hrs , Taking LORazepam 1 MG Tablet 1 tablet at bedtime as needed Orally Once a day , Taking Easy Touch Lancets 28G - Miscellaneous as directed , Taking Albuterol Sulfate HFA 108 (90 Base) MCG/ACT Aerosol Solution 2 puffs as needed Inhalation every 6 hrs , Taking Azelastine HCl 0.1 % Solution 1 puff in each nostril Nasally Twice a day , Taking Citalopram Hydrobromide 40 MG Tablet 2 tablet Orally Once a day , Notes to Pharmacist: Psy, Taking Mometasone Furoate 0.1 % Cream Apply sparingly first before calcipotriene twice a day to affected areas on arms and chest as needed 30 30 , Taking Cyproheptadine HCl 4 MG Tablet TAKE ONE TABLET BY MOUTH 3 (THREE) TIMES A DAY NEEDED FOR ITCH 30 30 , Taking Nebulizer/Tubing/Mouthpiece - Kit as directed for treatment of Dx: J45.30 inhalation every 4-6 hours prn , Taking Flovent HFA 110 MCG/ACT Aerosol 2 puffs Inhalation 2 times a day,Instr:rinse mouth and throat after use , Taking Xopenex 1.25 MG/3ML Nebulization Solution 3 ml Inhalation three times daily , Taking EpiPen 2-Amadeo 0.3 MG/0.3ML Solution Auto-injector as directed Injection once as needed , Taking FreeStyle Lite - Device as directed to check blood sugars Dx: E11.9 in vitro three times daily , Taking Myrbetriq 50 MG Tablet Extended Release 24 Hour 1 tablet Orally twice a day , Notes to Pharmacist: Urologist, Taking Serevent Diskus 50 MCG/DOSE Aerosol Powder Breath Activated Inhale 1 Puff into the lungs 2 times daily for 30 days. , Taking Insulin Lispro (1 Unit Dial) 100 unit/mL Solution Pen-injector INJECT 30 UNITS UNDER THE SKIN 3 (THREE) TIMES A DAY , Taking Metoclopramide HCl 10 MG Tablet 1 tablet before meals Orally Twice a day , Taking Ondansetron HCl 4 MG Tablet 1 tablet Orally twice a day , Taking Econazole Nitrate 1 % Cream 1 application Externally twice a day , Taking Lidocaine HCl Urethral/Mucosal 2 % Gel APPLY SPARINGLY TO THE AFFECTED AREA ON RIGHT TO THE ARM AND CHEST 2 TO 3 TIMES A DAY IF ITCHY , Taking Omeprazole 20 mg Capsule Delayed Release TAKE 1 CAPSULE BY MOUTH 30 MINUTES BEFORE morning meal , Taking hydroCHLOROthiazide 25 mg Tablet TAKE 1 TABLET BY MOUTH EVERY MORNING , Taking Lantus SoloStar 100 UNIT/ML Solution Pen-injector INJECT 90 UNITS UNDER THE SKIN ONCE A DAY DIRECTED , Taking True Comfort Pen Cogswell 32G X 4 MM Miscellaneous USE TO INJECT insulin 5 TIMES A DAY , Taking Alcohol Pads 70 % Pad USE TOPICALLY THREE TIMES DAILY DIRECTED , Taking Lidocaine 5 % Patch Apply 1 patch to the affected area for 12 hours a day. Remove for 12 hours. NEEDED FOR most painful AREA , Taking Meclizine HCl 25 MG Tablet 1 tablet as needed Orally every 12 hrs , Taking Fyyecteh-Dckwrrvat-SE 1 % Solution 4 drops into affected ear Otic Three times a day , Taking Diclofenac Sodium 1 % Gel APPLY TO THE AFFECTED AREA 3 (THREE) TIMES A DAY DIRECTED , Taking True Comfort Safety Lancets - Miscellaneous USE TO TEST FINGER STICK BLOOD SUGAR 3 (THREE) TIMES A DAY , Taking hydrOXYzine HCl 25 mg Tablet TAKE 1 TABLET BY MOUTH EVERY NIGHT AT BEDTIME NEEDED FOR ITCH , Taking Loratadine 10 mg Tablet TAKE 1 TABLET BY MOUTH ONCE DAILY , Taking FreeStyle Lite Test - Strip USE TO TEST FINGER STICK BLOOD SUGAR 3 (THREE) TIMES A DAY , Taking Eliquis 5 mg Tablet TAKE ONE TABLET BY MOUTH two (2) times a day 30 , Taking Vitamin D3 50 MCG (2000 UT) Capsule TAKE 1 CAPSULE BY MOUTH ONCE DAILY , Taking Atorvastatin Calcium 10 mg Tablet TAKE 1 TABLET BY MOUTH ONCE DAILY , Taking amLODIPine Besylate 5 mg Tablet TAKE ONE TABLET BY MOUTH ONCE A DAY , Taking metFORMIN HCl 850 mg Tablet TAKE ONE TABLET BY MOUTH two (2) times a day. TAKE WITH MEALS , Taking Losartan Potassium 100 mg Tablet TAKE 1 TABLET BY MOUTH ONCE DAILY , Taking Metoprolol Succinate ER 100 mg Tablet Extended Release 24 Hour TAKE 1 TABLET BY MOUTH ONCE DAILY , Taking Ezetimibe 10 mg Tablet TAKE 1 TABLET BY MOUTH ONCE DAILY , Taking tiZANidine HCl 4 mg Tablet 1 tablet oral three times a day prn , Taking Montelukast Sodium 10 mg Tablet TAKE 1 TABLET BY MOUTH ONCE A DAY , Not- Taking Temazepam 30 MG Capsule 1 capsule at bedtime as needed Orally Once a day , Not- Taking ProAir HFA 108 (90 Base) MCG/ACT Aerosol Solution 2 puffs Inhalation Every 4 hours,PRN:for wheezing , Not-Taking Carafate 1 GM/10ML Suspension 10 ml on an empty stomach Orally Twice a day , Not-Taking Ofloxacin 0.3 % Solution 10 drops into affected ear Otic Once a day , Not-Taking Nibkxhnd-Btnyoaxkn-[place] 1 % Solution 4 drops into affected ear Otic Three times a day , Not-Taking Fluconazole 150 mg Tablet TAKE 1 TABLET BY MOUTH EVERY 3 DAYS , Not-Taking Tobramycin 0.3 % Solution 1 drop into affected eye Ophthalmic every 4 hrs , Not-Taking predniSONE 20 MG Tablet 1 tablet Orally Once a day , Not-Taking Benzonatate 100 MG Capsule 1 capsule as needed Orally Three times a day , Not-Taking Doxycycline Hyclate 100 MG Capsule 1 capsule Orally Twice a day , Not-Taking predniSONE 20 MG Tablet 1 tablet Orally Once a day , Not-Taking Benzonatate 100 MG Capsule 1 capsule as needed Orally Three times a day , Not-Taking oxyCODONE HCl 30 mg Tablet TAKE 1 TABLET BY MOUTH 3 (THREE) TIMES A DAY NEEDED FOR PAIN by mouth 3 times a day , Not-Taking Cephalexin 500 MG Capsule 1 capsule Orally every 8 hours , Not-Taking predniSONE 10 MG Tablet 1 tablet Orally Once a day , Not-Taking Tessalon Perles 100 MG Capsule 1 capsule as needed Orally Three times a day , Not-Taking Benzonatate 100 MG Capsule 1 capsule as needed Orally Three times a day , Not-Taking Trulicity 1.5 MG/0.5ML Solution Pen-injector inject the content of 1 pen under the skin each week as directed Subcutaneous weekly , Not-Taking Trulicity 3 MG/0.5ML Solution Pen-injector inject the content of 1 pen under the skin each week as directed Subcutaneous weekly , Not-Taking Azithromycin 250 MG Tablet 2 tablet day one 1 tab daily for 4 days Orally daily , Unknown metroNIDAZOLE 0.75 % Gel _insert 1 APPLICATORFUL VAGINALLY ONCE A DAY AT BEDTIME FOR 10 DAYS , Unknown Admelog SoloStar 100 UNIT/ML Solution Pen-injector 11 units Subcutaneous three times a day , Unknown Fluticasone Propionate 50 MCG/ACT Suspension SPRAY TWICE INTO EACH NOSTRIL ONCE A DAY , Unknown Zofran 4 MG Tablet as directed Orally , Unknown Fluconazole 50 MG Tablet 1 tablet Orally Daily , Unknown clonazePAM 1 MG Tablet 2 tablets in the am and 2 tablets in pm Orally twice a day , Notes to Pharmacist: CHD, Medication List reviewed and reconciled with the patient * Allergies:?Aspirin: Allergy, Naprosyn: Allergy, shellfish: Allergy, fish: Allergy, Gabapentin: Allergy, Octopus: anaphylaxis - Allergy, peanuts: Allergy, Jardiance: Yeast infection - Side Effects, Solifenacin, Lyrica, Fluocinolone: Unknown. Objective: * Vitals:?Temp:97.1F, Oxygen s at %:91%, HR:88/min, BP:130/74mm Hg, Wt:212.8lbs, BMI:38.62Index, Ht: 62.24 in. * ???Past Orders: ???Lab:Hemoglobin [id number] (Order Date - 02/16/2024) (Collection Date & Time - 02/18/2024 09:35 AM) ? Value Reference Range ?Hemoglobin A1c/ Hemoglobin total 6.1 H 4.8-5.6 - % * Examination: ???General Examination: ?Psychiatry?Normal.?GENERAL APPEARANCE:?Well developed, well nourished, in no acute distress.?MUSCULOSKELETAL:?left prosthetic leg.?HEAD:?Normocephalic, atraumatic.?EYES:?Pupils equal, round, reactive to light and accommodation, sclera non-icteric.?EARS:?normal, .?ORAL CAVITY:?Normal.?THROAT:?Clear.?OROPHARYNX?Normal.?SINUSES?Normal.?NECK/THYROID:?Neck supple, full range of motion, no cervical lymphadenopathy.?SKIN:?Warm and dry, no suspicious lesions.?HEART:?Normal.?LUNGS:?clear to auscultation bilaterally, , no wheezes, rales, rhonchi.?BREASTS:?__.?ABDOMEN:?bowel sounds present, no rebound tenderness,tender in the epigastric area.?EXTREMITIES:?Normal.?PERIPHERAL PULSES:?Normal.?NEUROLOGIC:??appropriate strength bilateral upper extremities and in the right lower extremity.? Status post amputation left leg below knee joint.?FEMALE GENITOURINARY:?__.?MALE GENITOURINARY:?__.?Verifier Operator? .? Assessment: * Assessment: 1.?Diabetes mellitus due to underlying condition with diabetic neuropathy, unspecified - E08.40???2.?Essential (primary) hypertension - I10???3.?Chronic kidney disease, stage 3 unspecified - N18.30???4.?Dysphagia, unspecified - R13.10??? Maribell is a 63-year-old lady with DM2, hypertension, hyperlipidemia, asthma, insomnia and anxiety here for follow up. Plan is as follows: Type II diabetes mellitus. Hb A1c improve energy 6.1.She is on right medications. She has seen her grill associate in the past 1 year. Foot care discussed. Check A1c. Hypertension. Blood pressure is within reasonable limits. Continue current regimen. DVT. She is on Eliquis 5 MG twice a day. Lumbar radiculopathy. She was on oxycodone 30 MG as needed and her urine toxicology screen was negative. Initially patient mentioned that she was told by urologist to stop taking pain meds while she is on antibiotics. We checked with urology office and they did not give such orders. Today she mentioned that there was a misunderstanding and she forgot to take her pills.. She has used gabapentin and Lyrica with no success. Continue Tylenol arthritis 650 mg 2 tablets twice a day and 1 tablet in the afternoon for breakthrough pains. Urine is positive for benzodiazepines because she is on temazepam. Referred to [facility] Dr. Iraheta. Chronic kidney disease stage 3. She does not appear to be in volume overload. Advised appropriate hydration. Avoid NSAIDs. She sees Dr. Lakhani. Asthma. She uses her inhalers as needed. Generalized anxiety disorder. Mood is stable on Lorazepam 3 times a day. She has a psychiatrist and a therapist. GERD/gastroparesis. Continue Reglan 10 MG twice a day. General health concerns discussed with patient. Plan: * Treatment: 2.?Essential (primary) hyper tension?LAB: Albumin/Creatinine Ratio,[id number] 3.?Dysphagia, unspecified? Start Omeprazole Capsule Delayed Release, 40 MG, 1 capsule 1/2 to 1 hour before morning meal, Orally, Once a day, 30 days, 30, Refills 3.?? * Procedures:?Urinalysis:?Glucose:?Negative.?Bilirubin:?Negative.?Ketones:?Trace.?Spec [place]:?1.010.?Blood:?Negative.?pH:?6.?Protein:?Negative.?Urobili:?Negative.?Nitrates:?Negative.?Leukocytes:?Negative.? * Procedure Codes:?3078F DIAST BP < 80 MM HG, 3075F SYST BP GE 130 - 139MM HG, 79225 URINALYSIS, AUTO, W/O SCOPE, Modifiers: QW * Follow Up:?schedule appt * * Electronic signature of Marco Vilchis PA-C on 04/18/2024 at 08:45 PM EST Sign off status: Pending * Provider:?Adolfo Vilchis Date:?04/18/20 Generated for Hood sanchez/Nataliia/Barbara on:?04/18/2024 08:45 PM EST History and Physical Notes * HPI (History of Present Illness) Category Sub-Category Detail Notes Category Not es Internal Medicine Maribell is a 63-year-old lady with DM2, hypertension, hyperlipidemia, asthma, insomnia and anxiety here for follow-up. She states that she has a blister on the first digit of the right foot. She has been using Neosporin and slowly improving. She continues nasal congestion, with yellow discharging. She has dry cough. No fever, chills. She also states that she has sensation of something stuck in her throat, and she states that it worsens after eating and she also experiences acid reflux. she also endorses increased urinary Frequency. That has been chronic. She denies urgency, burning sensation with urination, flank pain, hematuria. She states that she has a follow-up with her urologist for urethral sling. Denies any other active issues. Examination Category Sub-Category Detail Notes Category Not es General Examination GENERAL APPEARANCE: Well dev eloped, well nourished, in no acute distress HEAD: Normocephalic, atrau matic EYES: Pupils equal, round, reactive to light and accommodation, sclera non-icteric EARS: normal, THROAT: Clear NECK/THYROID: Neck supple, full ra nge of motion, no cervical lymphadenopathy HEART: Normal LUNGS: clear to auscultatio n bilaterally, , no wheezes, rales, rhonchi ABDOMEN: bowel sounds present , no rebound tenderness, tender in the epigastric area NEUROLOGIC: appropriate strength bilateral upper extremities and in the right lower extremity. Status post amputation left leg below knee joint SKIN: Warm and dry, no randy picious lesions EXTREMITIES: Normal PERIPHERAL PULSES: Normal BREASTS: __ MUSCULOSKELETAL: left prosthetic leg MALE GENITOURINARY: __ FEMALE GENITOURINARY: __ ORAL CAVITY: Normal Psychiatry Normal OROPHARYNX Normal SINUSES Normal Verifier Operator
--- OUTSIDE RECORDS SUMMARY | 2024-04-18 20:46 | XMS_ITS ---
Author Organization [facility] Address [address] [place] [id number] Care Team Providers Care Education Administrator Name Role Phone ELLA MICHAEL Primary Care Provider REASON FOR VISIT Montelukast Sodium Medications Medication SIG (Take, Route, Frequency, Duration) Notes Start Date End Date Status Montelukast Sodium 10 mg TAKE 1 TABLET B Y MOUTH ONCE A DAY for 30 days Active Encounters Encounter Location Date Provider Diagnosis [address] [phone] 04/16/2024 ELLA MICHAEL Plan Of Treatment Medication Medication Name Sig Start Date Stop Date Notes Montelukast Sodium 10 mg TAKE 1 TABLET B Y MOUTH ONCE A DAY for 30 days Next Appt Details Provider Name:ELLA MICHAEL , 05/23/2024 09:30:00 AM, [address] [place] [address], [place], [phone], Progress Notes * ZOIE SWEENEY HDOB: 3 (63 yo F)Acc No.[id number]:04/16/2024 Patient:?ZOIE SWEENEY :1960???Age:63 Y???Sex:Female Address:[address] [place] [phone] * Refills? Refill Montelukast Sodium Tablet, 10 mg, 90 Tablet, TAKE 1 TABLET BY MOUTH ONCE A DAY, 30 days, Refills=5 * true * Date:? Generated for Hood sanchez/Nataliia/eTransmitting on:?04/18/2024 08:46 PM EST
--- OUTSIDE RECORDS SUMMARY | 2024-04-18 20:46 | XMS_ITS ---
Author Organization [facility] Address [address] [place] [phone] Care Team Providers Care Detail Maker And Fitter Name Role Phone ELLA MICHAEL Primary Care Provider [phone] REASON FOR VISIT [facility] request Encounters Encounter Location Date Provider Diagnosis [facility] [address] [phone] 04/16/2024 ELLA MICHAEL Plan Of Treatment Next Appt Details Provider Name:ELLA MICHAEL , 05/23/2024 09:30:00 AM, [address] [address], [place], [phone], Progress Notes * ZOIE SWEENEY HDOB: 3 (63 yo F)Acc No.[id number]:04/16/2024 Patient:?ZOIE SWEENEY :1960???Age:63 Y???Sex:Female Address:[address] [place] [phone] * * Date:?
--- OUTSIDE RECORDS SUMMARY | 2024-04-18 20:46 | XMS_ITS | Patient Health Record ---
Author Organization [facility] Address [address] [place] [address] Care Team Providers Care Gas Distribution Supervisor Name Role Phone ELLA MICHAEL Primary Care Provider [phone] Adolfo Vilchis Unavailable [phone] Allergies Allergen (clinical drug ingredient) Drug/Non Drug [...] solifenacin Solifenacin Unknown Drug Allergy Act kathleen Results Component Value Reference Range Notes Hemoglobin [id number] Reviewed date:11/15/2023 07:52:21 AM Interpretation: Performing Lab:[facility], [address] [place] [address], Phone - [phone], Director - Mohsen Notes/Report: Hemoglobin A1c 6.6 4.8-5.6 % . Prediabetes: 5.7 - 6.4 Diabetes: >6.4 Glycemic control for adults with diabetes: <7.0 Acetaminophen, MS, Ur RFX Reviewed date:11/21/2023 08:01:23 AM Interpretation: Performing Lab:[facility], [address] [place] [address], Phone - [phone], Director - Sheri Notes/Report: ANALGESICS/NSAIDS +POSITIVE+ Acetaminophen PRESENT ToxAssure Flex 23, [id number] Reviewed date:11/23/2023 09:11:12 AM Interpretation: Performing Lab:[facility], [address] [place] [address], Phone - [phone], Director - Sheri Notes/Report: Summary Report FINAL Acetaminophen, MS, Ur RFX ToxAssure Flex 23, Urine Test Result Flag Units Drug Present Oxazepam 292 ng/mg creat Temazepam >1639 ng/mg creat Oxazepam and temazepam are expected metabolites of diazepam. Oxazepam is also an expected metabolite of other benzodiazepine drugs, including chlordiazepoxide, prazepam, clorazepate, halazepam, and temazepam. Oxazepam and temazepam are available as scheduled prescription medications. Lorazepam 801 ng/mg creat Source of lorazepam is a scheduled prescription medication. Acetaminophen PRESENT Test Result Flag Units Ref Range Creatinine 122 mg/dL >=20 Declared Medications: Medication list was not provided. For clinical consultation, please call . Creatinine 122 REFERENCE RANGE : Ref Range>=20 AMPHETAMINES IA Negative CUTOFF:300 ng/mL BENZODIAZEPINES +POSITIVE+ Diazepam Not Detected Desmethyldiazepam Not Detected Oxazepam 292 Temazepam >1639 Expected metabolism of benzodiazepine class drugs: Parent Drug Detected Metabolites Diazepam: Desmethyldiazepam, Temazepam, Oxazepam Chlordiazepoxide: Desmethyldiazepam, Oxazepam Clorazepate: Desmethyldiazepam, Oxazepam Halazepam: Desmethyldiazepam, Oxazepam Temazepam: Oxazepam Oxazepam: None Alprazolam Not Detected Alpha-hydroxyalprazolam Not Detected Desalkylflurazepam Not Detected Lorazepam 801 Alpha-hydroxytriazolam Not Detected Clonazepam Not Detected 7-aminoclonazepam Not Detected Midazolam Not Detected Alpha-hydroxymidazolam Not Detected Flunitrazepam Not Detected Desmethylflunitrazepam Not Detected COCAINE METABOLITE IA Negative CUTOFF:150 ng/mL ETHYL ALCOHOL Enzymatic Negative CUTOFF:0 .020 g/dL ETHANOL BIOMARKERS IA Negative CUTOFF:500 ng/mL 6-ACETYLMORPHINE IA Negative CUTOFF:10 ng/mL OPIATE CLASS IA Negative CUTOFF:100 ng/mL OXYCODONE CLASS IA Negative CUTOFF:100 ng/mL METHADONE IA Negative CUTOFF:100 ng/mL METHADONE MTB IA Negative CUTOFF:100 ng/mL BUPRENORPHINE Negative Buprenorphine Not Detected Norbuprenorphine Not Detected FENTANYL / ANALOGUES Negative Fentanyl Not Detected Norfentanyl Not Detected TAPENTADOL IA Negative CUTOFF:200 ng/mL MEPERIDINE IA Negative CUTOFF:200 ng/mL PROPOXYPHENE IA Negative CUTOFF:300 ng/mL TRAMADOL IA Negative CUTOFF:200 ng/mL BARBITURATES IA Negative CUTOFF:200 ng/mL OTHER HALLUCINOGENS Negative Ketamine Not Detected Norketamine Not Detected PHENCYCLIDINE IA Negative CUTOFF:25 ng/mL GABAPENTIN IA Negative CUTOFF:1.0 ug/mL CARISOPRODOL IA Negative CUTOFF:100 ng/mL SEDATIVE/HYPNOTICS Negative Zolpidem Not Detected Zolpidem Acid Not Detected Zopiclone/Eszopiclone Not Detected Amino Chloropyridine Not Detected Zaleplon Not Detected Expected metabolism of Sedatives/Hypnotics: Parent Drug Detected Metabolites Zolpidem: Zolpidem Acid Zopiclone/Eszopiclone: Amino Chloropyridine Zaleplon: None ACETAMINOPHEN IA CUTOFF:5.0 ug/mL Further testing indicated MISCELLANEOUS Negative Dextromethorphan Not Detected Dextrorphan/Levorphanol Not Detected Expected metabolism of Dextromethorphan and Dextrorphan/Levorphanol : Parent Drug Detected Metabolites Dextromethorphan: Dextrorphan Dextrorphan/Levorphanol : None Dextrophan cannot be distinguished from Levorphanol by the method used for analysis. NICOTINE METABOLITE Negative Cotinine Not Detected HEMOGLOBIN A1C WITH EST GLUC OSE Reviewed date:06/02/2023 03:03:34 PM Interpretation: Performing Lab:Testing performed or reported by [facility], a Service of [facility], [address] [place] [address] Tim Watson MD, Acid Conditioning Worker [facility]# [id number] Notes/Report: HEMOGLOBIN A1C 6.3 (4.0-5.6) % MONITORING: In known diabetic patients, hemoglobin A1c targets should be discussed with health care provider. DIAGNOSTIC USE: The [place] Diabetes Association (ADA) and the World Health Organization (WHO) recommend the use of HbA1c to diagnose diabetes using a threshold of 6.5%. Patients who have an HbA1c between 5.7% and 6.4% are considered at increased risk for developing diabetes in the future. CAUTION: Falsely low HbA1c results may be observed in patients with hemolytic anemia, homozygous forms of abnormal hemoglobin (e.g. SS, CC, SC), , recent blood loss or hemoglobin F greater than 7%. Fructosamine may be used as an alternate test in these cases. REFERENCE: ADA: Standards of Medical Care in Diabetes 2020, The Journal of Clinical and Applied Research and Education Volume 43, Supplement 1 ESTIMATED AVERAGE GLUCOSE 134 MICROALBUMIN, URINE Reviewed date:05/19/2023 04:11:12 PM Interpretation: Performing Lab:Testing performed or reported by [facility], a Service of [address] [address] Tim Watson MD, Acid Conditioning Worker [facility]# [id number] Notes/Report: MICRO-ALBUMIN <12.0 (<20) MG/L The urine microalbumin test is designed to monitor renal function. When screening for Bence Hinds proteinuria, urine electrophoresis is recommended. MALB/CREAT RATIO Unable to calculate (0-20) MG/GM URINE CREAT FOR MICRO ALBUMIN 116.5 LIPID PANEL Reviewed date:06/02/2023 03:03:28 PM Interpretation: Performing Lab:Testing performed or reported by [facility], a Service of [address] [address] Tim Watson MD, Acid Conditioning Worker [facility]# [id number] Notes/Report: CHOLESTEROL, TOTAL 105 (<200) MG/DL TRIGLYCERIDE 160 (<150) MG/DL HDL CHOL 34 (>39) MG/DL LDL CHOLESTEROL, CALCULATED 39 (0-130) MG/DL NON HDL CHOLESTEROL (CALC) 71 (<160) MG/DL COMPREHENSIVE METABOLIC PANE L Reviewed date:06/02/2023 03:03:20 PM Interpretation: Performing Lab:Testing performed or reported by [facility], a Service of [address] [address] Tim Watson MD, Acid Conditioning Worker [facility]# [id number] Notes/Report: GLUCOSE 151 (70-99) MG/DL BUN 15 (8-23) MG/DL CREATININE 1.2 (0.5-1.0) MG/DL SODIUM 142 (133-145) MMOL/L POTASSIUM 4.0 (3.6-5.2) MMOL/L CHLORIDE 102 (98-107) MMOL/L BICARBONATE 31 (22-29) MMOL/L ANION GAP 9 (4-17) ALBUMIN 4.1 (3.4-4.8) GM/DL CALCIUM 9.7 (8.6-10.5) MG/DL BILIRUBIN,TOTAL 0.6 (0-1.2) MG/DL TOTAL PROTEIN 6.8 (6.2-8.2) GM/DL AG RATIO 1.5 AST 20 (0-32) U/L ALK PHOS 91 (35-104) U/L ALT 20 (0-33) U/L ESTIMATED GFR CREATININE 52 Creatinine based estimated glomerular filtration (eGFR) in adults is calculated using the National Kidney Foundation recommended 2020 CKD-EPI equation. Estimates GFR from serum creatinine, age and sex. Hemoglobin [id number] Reviewed date:02/20/2024 08:28:37 AM Interpretation: Performing Lab:[facility], [address] [place] [address], Phone - [phone], Director - Mohsen Notes/Report: Hemoglobin A1c 6.1 4.8-5.6 % . Prediabetes: 5.7 - 6.4 Diabetes: >6.4 Glycemic control for adults with diabetes: <7.0 Reason For Referral Reason essential tremors- D r. [place] Diagnosis 1 Essential tremor (G2 5.0) Referral Organization [facility] Referring Provider First Name ELAL Referring Provider Last Name [facility] Referring Provider Speciality Internal edicine Referred Provider Specialty Neurology General Notes Referral faxed - Dep t will call patient for scheduling.Janene Latraya 09/27/2023 02:58:10 PM > Referral Priority Routine Reason Evaluation and manag ement - Dr. Haley Diagnosis 1 Arthralgia of tempor omandibular joint, unspecified side (M26.629) Referral Organization [facility] Referring Provider First Name ELLA Referring Provider Last Name [facility] Referring Provider Speciality Internal edicine Referred Provider Specialty Physical Med icine and Rehabilitation General Notes Referral faxed - Dep t will call patient for scheduling.Janene Latraya 09/21/2023 12:07:16 PM > Referral Priority Routine Reason Evaluation and manag ement Juma Cruz Diagnosis 1 Other hammer toe(s) (acquired), right foot (M20.41) Referral Organization [facility] Referring Provider First Name JARAMILLO Referring Provider Last Name [facility] Referring Provider Speciality Internal M edicine Referred Provider Specialty Podiatry General Notes Referral sent to [facility] in [place] - Office will call patient for scheduling.Janene Latraya 02/02/2024 09:36:19 AM > Referral Priority Routine Reason Evaluation and manag jane - Dr Iraheta Diagnosis 1 Radiculopathy, lumbo sacral region (M54.17) Diagnosis 2 Pain in right should er (M25.511) Diagnosis 3 Pain in left wrist ( M25.532) Diagnosis 4 Pain in left hand (M 79.642) Diagnosis 5 Pain in right foot ( M79.671) Diagnosis 6 Low back pain (M54.5 ) Referral Organization [facility] Referring Provider First Name ELLA Referring Provider Last Name [facility] Referring Provider Speciality Internal M edicine Referred Provider Specialty Pain Medicin e General Notes Referral sent to [facility] in [place] - Office will call patient for scheduling., Naty Watters 02/21/2024 10:54:41 AM > Referral Priority Routine Medications Medication SIG (Take, Route, Frequency, Duration) Notes Start Date End Date Status Zofran 4 MG as directed Orally for 7 days 07/07/2018 Unknown Fluticasone Propionate 50 MCG/ACT SPRAY TWICE INTO EACH NOSTRIL ONCE A DAY for [address] 32G X 4 MM USE TO INJECT insulin 5 TIMES A DAY for 25 Active Lantus SoloStar 100 UNIT/ML INJECT 90 UNITS UNDER THE SKIN ONCE A DAY DIRECTED for 30 Active clonazePAM 1 MG 2 tablets in the am and 2 tablets in pm Orally twice a day CHD Unknown Fluconazole 50 MG 1 tablet Orally Daily for 10 day(s) 06/16/2020 Unknown Lidocaine 5 % Apply 1 patch to the affected area for 12 hours a day. Remove for 12 hours. NEEDED FOR most painful AREA for 30 Active Audvoutf-Zuzgpatkd-UK 1 % 4 drops into affected ear Otic Three times a day for 7 days 03/18/2023 Not-Taking Ofloxacin 0.3 % 10 drops into affected ear Otic Once a day for 7 days 03/18/2023 Not-Taking Alcohol Pads 70 % USE TOPICALLY THREE TIMES DAILY DIRECTED for 30 Active True Comfort Safety Lancets - USE TO TEST FINGER STICK BLOOD SUGAR 3 (THREE) TIMES A DAY for 30 Active Diclofenac Sodium 1 % APPLY TO THE AFFECTED AREA 3 (THREE) TIMES A DAY DIRECTED for 30 Active Egvitxin-Iglxyvzhz-WT 1 % 4 drops into affected ear Otic Three times a day for 7 days 05/31/2023 Active Meclizine HCl 25 MG 1 tablet as needed Orally every 12 hrs for 10 days 05/31/2023 Active oxyCODONE HCl 30 mg TAKE 1 TABLET BY MOUTH 3 (THREE) TIMES A DAY NEEDED FOR PAIN by mouth 3 times a day for 14 days 01/02/2024 Not-Taking Carafate 1 GM/10ML 10 ml on an empty stomach Orally Twice a day for 30 day(s) 05/04/2021 Not-Taking Benzonatate 100 MG 1 capsule as [...] 8 hours for 7 days 09/21/2023 Not-Taking hydroCHLOROthiazide 25 mg TAKE 1 TABLET BY MOUTH EVERY MORNING for 30 Active Metoclopramide HCl 10 MG 1 tablet before meals Orally Twice a day for 30 days 11/01/2022 Active metroNIDAZOLE 0.75 % _insert 1 APPLICATORFUL VAGINALLY ONCE A DAY AT BEDTIME FOR 10 DAYS for 10 Unknown Insulin Lispro (1 Unit Dial) 100 unit/mL INJECT 30 UNITS UNDER THE SKIN 3 (THREE) TIMES A DAY for 30 Active Azithromycin 250 MG 2 tablet day one 1 tab daily for 4 days Orally daily for 5 days 03/19/2022 Not-Taking Serevent Diskus 50 MCG/DOSE Inhale 1 Puff into the lungs 2 times daily for 30 days. for 30 Active Trulicity 3 MG/0.5ML inject the content of 1 pen under the skin each week as directed Subcutaneous weekly for 30 days 02/23/2022 Not-Taking Myrbetriq 50 MG 1 tablet Orally twice a day for 30 Urologist Active Trulicity 1.5 MG/0.5ML inject the conten t of 1 pen under the skin each week as directed Subcutaneous weekly for 30 days 02/23/2022 Not-Taking Omeprazole 20 mg TAKE 1 CAPSULE BY MOUTH 30 MINUTES BEFORE morning meal for 30 Active Lidocaine HCl Urethral/Mucosal 2 % APPLY SPARINGLY TO THE AFFECTED AREA ON RIGHT TO THE ARM AND CHEST 2 TO 3 TIMES A DAY IF ITCHY for 30 Active Econazole Nitrate 1 % 1 application Externally twice a day for 30 days 11/05/2022 Active Ondansetron HCl 4 MG 1 tablet Orally twice a day for 7 days 11/05/2022 Active Admelog SoloStar 100 UNIT/ML 11 units Subcutaneous three times a day for 30 Unknown tiZANidine HCl 4 mg 1 tablet oral three times a day prn for 10 days Active Ezetimibe 10 mg TAKE 1 TABLET BY MOUTH ONCE DAILY for 30 days Active Metoprolol Succinate ER 100 mg TAKE 1 TABLET BY MOUTH ONCE DAILY for 30 days Active Losartan Potassium 100 mg TAKE 1 TABLET BY MOUTH ONCE DAILY for 30 days Active FreeStyle Lite - as directed to check blood sugars Dx: E11.9 in vitro three times daily for 30 days 02/24/2018 Active Omeprazole 40 MG 1 capsule 1/2 to 1 hour before morning meal Orally Once a day for 30 days 04/18/2024 Active EpiPen 2-Amadeo 0.3 MG/0.3ML as directed Injection once as needed for 30 days 10/02/2020 Active Cyproheptadine HCl 4 MG TAKE ONE TABLET BY MOUTH 3 (THREE) TIMES A DAY NEEDED FOR ITCH 30 30 for 30 Active Doxycycline Hyclate 100 MG 1 capsule Orally Twice a day for 7 days 12/06/2023 Not-Taking Mometasone Furoate 0.1 % Apply sparingly first before calcipotriene twice a day to affected areas on arms and chest as needed 30 30 for 30 Active Benzonatate 100 MG 1 capsule as needed Orally Three times a day for 14 days 02/29/2024 Not-Taking Citalopram Hydrobromide 40 MG 2 tablet Orally Once a day for 30 day(s) Psy Active predniSONE 20 MG 1 tablet Orally Once a day for 7 days 02/29/2024 Not-Taking Azelastine HCl 0.1 % 1 puff in each nostril Nasally Twice a day Active Montelukast Sodium 10 mg TAKE 1 TABLET B Y MOUTH ONCE A DAY for 30 days Active Xopenex 1.25 MG/3ML 3 ml Inhalation three times daily for 15 Active ProAir HFA 108 (90 Base) MCG/ACT 2 puffs Inhalation Every 4 hours,PRN:for wheezing for 17 Not-Taking Flovent HFA 110 MCG/ACT 2 puffs Inhalati on 2 times a day,Instr:rinse mouth and throat after use for 30 Active Benzonatate 100 MG 1 capsule as needed Orally Three times a day for 7 days 12/06/2023 Not-Taking Nebulizer/Tubing/Mouthpie ce - as directed for treatment of Dx: J45.30 inhalation every 4-6 hours prn for 30 days 06/26/2019 Active predniSONE 20 MG 1 tablet Orally Once a day for 7 days 12/06/2023 Not-Taking FreeStyle Lite Test - USE TO TEST FINGER STICK BLOOD SUGAR 3 (THREE) TIMES A DAY for 30 Active Loratadine 10 mg TAKE 1 TABLET BY MOUTH ONCE DAILY for 30 Active hydrOXYzine HCl 25 mg TAKE 1 TABLET BY MOUTH EVERY NIGHT AT BEDTIME NEEDED FOR ITCH for 30 days Active Albuterol Sulfate HFA 108 (90 Base) MCG/ACT 2 puffs as needed Inhalation every 6 hrs Active Easy Touch Lancets 28G - as directed for 30 days Active LORazepam 1 MG 1 tablet at bedtime as needed Orally Once a day Active Tobramycin 0.3 % 1 drop into affected eye Ophthalmic every 4 hrs for 7 days 02/01/2024 Not-Taking Fluconazole 150 mg TAKE 1 TABLET BY MOUTH EVERY 3 DAYS for 3 Not-Taking Vitamin D3 50 MCG (2000 UT) TAKE 1 CAPSULE BY MOUTH ONCE DAILY for 30 days Active Eliquis 5 mg TAKE ONE TABLET BY MOUTH two (2) times a day 30 for 30 Active Temazepam 30 MG 1 capsule at bedtime as needed Orally Once a day Not-Taking Ventolin HFA 108 (90 Base) MCG/ACT 1 puff as needed Inhalation every 4 hrs Active metFORMIN HCl 850 mg TAKE ONE TABLET BY MOUTH two (2) times a day. TAKE WITH MEALS for 30 days Active Ozempic (0.25 or 0.5 MG/DOSE) 2 MG/3ML as directed Subcutaneous once a week Active amLODIPine Besylate 5 mg TAKE ONE TABLET BY MOUTH ONCE A DAY for 30 days Active Atorvastatin Calcium 10 mg TAKE 1 TABLET BY MOUTH ONCE DAILY for 30 days Active Immunizations Vaccine Route Administration Date Status Comme nts Influenza, high dose seasonal IM Intramuscular 04/20/2018 Administered Influenza, high dose seasonal Unknown 05/10/2021 Administered Influenza, seasonal, injectable (split), for 3 yrs and up IM Intramuscular 01/29/2019 Administered Social History Tobacco Use: Social History Observation Description Date Details (start date - stop date) Former Smoker NA - NA Tobacco Use/Smoking Question Answer Notes Are you a former smoker How long has it been since you last smoked? > 10 years Alcohol Screen (Audit-C) Question Answer Notes Did you have a drink containing alcohol in the p ast year? No Points 0 Interpretation Negative Problems Problem Type SNOMED Code ICD Code Onset Dates Problem Status W/U Status Risk Notes Problem Diabetic neuropathy (952103958) Diabetes mellitus due to underlying condition with diabetic neuropathy, unspecified (E08.40) Active confirmed Problem Morbid obesity (disorder) (799265755) Morbid (severe) obesity due to excess calories (E66.01) Active confirmed Problem Anxiety disorder (559070027) Anxiety disorder, unspecified (F41.9) Active confirmed Problem Essential tremor (706918228) Essential tremor (G25.0) Active confirmed Problem Insomnia (062360103) Insomnia, unspecified (G47.00) Active confirmed Problem Obstructive sleep apnea syndrome (99687715) Obstructive sleep apnea (adult) (pediatric) (G47.33) Active confirmed Problem Essential hypertension (18712632) Essential (primary) hypertension (I10) Active confirmed Problem Peripheral vascular disease (131853081) Peripheral vascular disease, unspecified (I73.9) Active confirmed Problem Embolism from thrombosis of vein of lower extremity (958268212) Chronic embolism and thrombosis of unspecified deep veins of unspecified lower extremity (I82.509) Active confirmed Problem Uncomplicated mild persistent asthma (025464279) Mild persistent asthma, uncomplicated (J45.30) Active confirmed Problem Polyp of colon (81711238) Polyp of colon (K63.5) Active confirmed Problem Acquired hammer toe of right foot (8839440853302713) Other hammer toe(s) (acquired), right foot (M20.41) Active confirmed Problem Shoulder joint pain (034208582) Pain in left shoulder (M25.512) Active confirmed Problem Lumbosacral radiculopathy (8922546) Radiculopathy, lumbosacral region (M54.17) Active confirmed Problem Dysphagia (95415103) Dysphagia, unspecified (R13.10) Active confirmed Problem Paresthesia (finding) (52662448) Paresthesia of skin (R20.2) Active confirmed Problem Amputated below knee (089617095) Acquired absence of left leg below knee (Z89.512) Active confirmed Problem Chronic kidney disease stage 3 (disorder) (071282650) Chronic kidney disease, stage 3 unspecified (N18.30) Active confirmed Problem 70297609 Type 2 diabetes mellitus with other specified complication, without long-term current use of insulin (E11.69) Active confirmed Problem Gastroesophageal reflux disease (244686888) Gastroesophageal reflux disease, unspecified whether esophagitis present (K21.9) Active confirmed Vital Signs Heart Rate 88 /min 04/18/2024 Temperature 97.1 degrees Fahrenheit 04/18/2024 Blood pressure diastolic 74 mm Hg 04/18/2024 Oximetry 91 % 04/18/2024 Height 62.24 in 04/18/2024 Blood pressure systolic 130 mm Hg 04/18/2024 Weight 212.8 lbs 04/18/2024 BMI 38.62 kg/m2 04/18/2024 Encounters Encounter Location Date Provider Diagnosis [address] [place] [address] 04/18/2024 Adolfo Vilchis Diabetes mellitus du e to underlying condition with diabetic neuropathy, unspecified E08.40 ; Essential (primary) hypertension I10 ; Chronic kidney disease, stage 3 unspecified N18.30 and Dysphagia, unspecified R13.[address] [place] [address] 05/17/2023 ELLA MICHAEL Encounter for genera l adult medical examination without abnormal findings Z00.00 ; Diabetes mellitus due to underlying condition with diabetic neuropathy, unspecified E08.40 ; Essential (primary) hypertension I10 ; Mild persistent asthma, uncomplicated J45.30 ; Radiculopathy, lumbosacral region M54.17 ; Chronic embolism and thrombosis of unspecified deep veins of unspecified lower extremity I82.509 and Chronic kidney disease, stage 3 unspecified N18.[address] [place] [address] 08/18/2023 JARAMILLO GUL Radiculopathy, lumbosacral region M54.17 ; Type 2 diabetes mellitus with other specified complication, without long-term current use of insulin E11.69 ; Essential (primary) hypertension I10 ; Anxiety disorder, unspecified F41.9 ; Insomnia, unspecified G47.00 and Left temporomandibular joint disorder, unspecified M26.[address] [place] [address] 09/01/2023 JARAMILLO GUL Otalgia, left ear H9 2.[address] [place] [address] 09/21/2023 JARAMILLO GUL Local infection of t he skin and subcutaneous tissue, unspecified L08.9 ; Left temporomandibular joint disorder, unspecified M26.602 and Essential tremor G25.[address] [place] [address] 10/06/2023 JARAMILLO GUL Left temporomandibul ar joint disorder, unspecified M26.602 and Otalgia, left ear H92.[address] [place] [address] 11/15/2023 JARAMILLO GUL Radiculopathy, lumbosacral region M54.17 ; Diabetes mellitus due to underlying condition with diabetic neuropathy, unspecified E08.40 ; Essential (primary) hypertension I10 and Chronic kidney disease, stage 3 unspecified N18.[address] [place] [address] 12/06/2023 JARAMILLO GUL Mild persistent asth ma, uncomplicated J45.[address] [place] [address] 02/01/2024 JARAMILLO GUL Other conjunctivitis H10.89 ; Left temporomandibular joint disorder, unspecified M26.602 ; Radiculopathy, lumbosacral region M54.17 and Other hammer toe(s) (acquired), right foot M20.41 [address] [place] [address] 02/21/2024 [facility] Radiculopathy, lumbosacral region M54.17 ; Diabetes mellitus due to underlying condition with diabetic neuropathy, unspecified E08.40 ; Essential (primary) hypertension I10 and Chronic kidney disease, stage 3 unspecified N18.30 [facility] [address] [place] [address] 02/29/2024 Adolfo Vilchis Acute URI J06.9 [facility] [address] [place] [address] 04/16/2024 [facility] [address] [place] [address] 04/19/2023 [facility] [address] [place] [address] 04/22/2023 [facility] [address] [place] [address] 04/28/2023 [facility] [address] [place] [address] 05/31/2023 [facility] [address] [place] [address] 05/31/2023 [facility] [address] [place] [address] 05/31/2023 [facility] [address] [place] [address] 05/31/2023 [facility] [address] [place] [address] 06/07/2023 [facility] [address] [place] [address] 06/10/2023 [facility] [address] [place] [address] 06/16/2023 [facility] [address] [place] [address] 08/04/2023 JARAMILLO L [facility] [address] [place] [address] 08/18/2023 JARAMILLO L [facility] [address] [place] [address] 08/22/2023 [facility] [address] [place] [address] 08/29/2023 [facility] [address] [facility] [place] [address] 09/22/2023 JARAMILLO L Local infection of t he skin and subcutaneous tissue, unspecified L08.9 [facility] [address] [facility] [place] [address] 09/29/2023 [facility] [address] [facility] [place] [address] 10/04/2023 [facility] [address] [facility] [place] [address] 11/14/2023 [facility] [address] [facility] [place] [address] 12/05/2023 [facility] [address] [facility] [place] [address] 12/07/2023 [facility] [address] [place] [address] 12/19/2023 [facility] [address] [facility] [place] [address] 01/02/2024 [facility] [address] [place] [address] 01/10/2024 [facility] [address] [facility] [place] [address] 01/25/2024 ELLA MICHAEL [address] [place] [address] 02/02/2024 ELLA MICHAEL Other conjunctivitis H10.[address] [place] [address] 02/07/2024 ELLA MICHAEL [address] [place] [address] 02/16/2024 ELLA MICHAEL Diabetes mellitus du e to underlying condition with diabetic neuropathy, unspecified E08.[address] [place] [address] 02/23/2024 JARAMILLO [address] [place] [address] 02/28/2024 JARAMILLOMARLON MICHAEL [address] [place] [address] 03/05/2024 Adolfo Vilchis [address] [place] [address] 04/16/2024 ELLA MICHAEL Assessments Encounter Date Diagnosis (ICD Code) Assessment Notes Treatment Notes Treatment Clinical Notes Section Notes 05/17/2023 Encounter for general adult medical examination without abnormal findings (ICD-10 - Z00.00) Maribell is a 62-year-old lady with DM2, hypertension, hyperlipidemia, asthma, insomnia and anxiety here for annual physical. Plan is as follows: Type II diabetes mellitus. Her blood sugars are within reasonable limits. She is on right medications. She has seen her regional operations director in the past 1 year. Foot care discussed. Hypertension. Her blood pressure is borderline high in the office today. Cut back on sodium intake. Advised appropriate hydration, cardio exercises and weight loss. Continue current regimen. Hyperlipidemia. Continue on current regimen. DVT. She is on Eliquis 5 MG twice a day. Lumbar radiculopathy. She takes oxycodone 30 MG as needed. She uses Lidocaine gel. Urine toxicology reviewed and appropriately positive and negative Chronic kidney disease stage 3. She does not appear to be in volume overload. Advised appropriate hydration. Avoid NSAIDs. She sees Dr. Lakhani. Asthma. She uses her inhalers as needed. Morbid obesity. Advised dietary restrictions and regimental exercise. Generalized anxiety disorder. She is under a lot of stress and she has been taking Lorazepam 3 times a day. She has a psychiatrist and a therapist. GERD/gastroparesis. Continue Reglan 10 MG twice a day. Breast cancer screening. She follows up with her background investigator for breast and pelvic exams. Eye screening. She sees her regional operations director regularly. Dental screening. She sees dentist at least twice a year. Colon cancer screening. She is up to date on her colonoscopy. Immunizations. She is up to date on her COVID vaccinations. Blood work reviewed with patient and questions answered. Screening blood work before next appointment General health concerns discussed with patient. 08/18/2023 Radiculopathy, lumbosacral region (ICD-10 - M54.17) Maribell is a 62-year-old lady with DM2, hypertension, hyperlipidemia, asthma, insomnia and anxiety here for follow up. Plan is as follows: Type II diabetes mellitus. A1c 6.3. Fasting sugars 151. She is on right medications. She has seen her regional operations director in the past 1 year. Foot care discussed. Check A1c. Hypertension. Blood pressure is within reasonable limits. Continue current regimen. Hyperlipidemia. Triglycerides are running high. Suggested dietary modifications. Continue on current regimen. DVT. She is on Eliquis 5 MG twice a day. Lumbar radiculopathy. She takes oxycodone 30 MG as needed. She uses Lidocaine gel. Urine toxicology reviewed and appropriately positive and negative Left temporomandibular joint dysfunction. Most likely osteoarthritis/arth ralgia. She is currently going to physical therapy Chronic kidney disease stage 3. She does not appear to be in volume overload. Advised appropriate hydration. Avoid NSAIDs. She sees Dr. Lakhani. Asthma. She uses her inhalers as needed. Morbid obesity. Advised dietary restrictions and regimental exercise. Generalized anxiety disorder. She is under a lot of stress and she has been taking Lorazepam 3 times a day. She has a psychiatrist and a therapist. GERD/gastroparesis. Continue Reglan 10 MG twice a day. Blood work reviewed with patient and questions answered. General health concerns discussed with patient. Scribe services used to formulate this note under HIPAA compliance and under [place] law mandated for scribe services. Patient aware of service. Verbal consent and written consent taken from the patient. Patient understands and verbalizes understanding of the scribes services and all questions answered regarding scribes services. Patient agrees to use of scribes services. 09/21/2023 Local infection of the skin and subcutaneous tissue, unspecified (ICD-10 - L08.9) Maribell is a 62-year-old lady with DM2, hypertension, hyperlipidemia, asthma, insomnia and anxiety here with complaints of umbilical discharge and TMJ pain. Plan is as follows: Umbilical discharge. Start Cephalexin 500 MG every 8 hours for 7 days. Advised nothing is alarming at this point. TMJ disorder. Referred to Physiatry, Dr. Haley. Essential tremor. Referred to Neurology, General health concerns discussed with patient. Scribe services used to formulate this note under HIPAA compliance and under [place] law mandated for scribe services. Patient aware of service. Verbal consent and written consent taken from the patient. Patient understands and verbalizes understanding of the scribes services and all questions answered regarding scribes services. Patient agrees to use of scribes services. 09/21/2023 Left temporomandibular joint disorder, unspecified (ICD-10 - M26.602) Maribell is a 62-year-old lady with DM2, hypertension, hyperlipidemia, asthma, insomnia and anxiety here with complaints of umbilical discharge and TMJ pain. Plan is as follows: Umbilical discharge. Start Cephalexin 500 MG every 8 hours for 7 days. Advised nothing is alarming at this point. TMJ disorder. Referred to PhysiatryDr. Haley. Essential tremor. Referred to Neurology, General health concerns discussed with patient. Scribe services used to formulate this note under HIPAA compliance and under [place] law mandated for scribe services. Patient aware of service. Verbal consent and written consent taken from the patient. Patient understands and verbalizes understanding of the scribes services and all questions answered regarding scribes services. Patient agrees to use of scribes services. 09/22/2023 Local infection of the skin and subcutaneous tissue, unspecified (ICD-10 - L08.9) 10/06/2023 Otalgia, left ear (ICD-10 - H92.02) Maribell is 63 years old lady with above-mentioned comorbidities is here for follow-up after visit to [facility]. Records not available at this point. She complains of left TMJ pain and discomfort and left ear pain. Plan is as follows Left TMJ pain. She is currently on oxycodone and she also use [id number] Tylenol arthritis with no significant relief. We will give her low-dose prednisone on trial basis for 7 days. She has completed physical therapy for TMJ and she has seen dentist for mouth guard. CT scan of the head reviewed with the patient and there were no acute findings. She has appointment with neurologist at [facility] for headaches Left ear pain. She had a couple of courses of antibiotics and there is no improvement. There are no signs of active infection and no need for any more antibiotics. She has an appointment with ENT on October 19 for follow-up. She was advised not to use any Q-tips. 10/06/2023 Left temporomandibular joint disorder, unspecified (ICD-10 - M26.602) Maribell is 63 years old lady with above-mentioned comorbidities is here for follow-up after visit to [facility]. Records not available at this point. She complains of left TMJ pain and discomfort and left ear pain. Plan is as follows Left TMJ pain. She is currently on oxycodone and she also use [id number] Tylenol arthritis with no significant relief. We will give her low-dose prednisone on trial basis for 7 days. She has completed physical therapy for TMJ and she has seen dentist for mouth guard. CT scan of the head reviewed with the patient and there were no acute findings. She has appointment with neurologist at [facility] for headaches Left ear pain. She had a couple of courses of antibiotics and there is no improvement. There are no signs of active infection and no need for any more antibiotics. She has an appointment with ENT on October 19 for follow-up. She was advised not to use any Q-tips. 11/15/2023 Diabetes mellitus due to underlying condition with diabetic neuropathy, unspecified (ICD-10 - E08.40) Maribell is a 63-year-old lady with DM2, hypertension, hyperlipidemia, asthma, insomnia and anxiety here for follow up. Plan is as follows: Type II diabetes mellitus. A1c 6.6. Glucose 151. She is on right medications. She has seen her regional operations director in the past 1 year. Foot care discussed. Check A1c. Hypertension. Blood pressure is within reasonable limits. Continue current regimen. Hyperlipidemia. Triglycerides are running high. Suggested dietary modifications. Continue on current regimen. DVT. She is on Eliquis 5 MG twice a day. Lumbar radiculopathy. She takes oxycodone 30 MG as needed. She uses Lidocaine gel. Urine toxicology reviewed and is negative for oxycodone and urine will be sent out for evaluation. Urine is positive for benzodiazepines because she is on temazepam Chronic kidney disease stage 3. She does not appear to be in volume overload. Advised appropriate hydration. Avoid NSAIDs. She sees Dr. Lakhani. Asthma. She uses her inhalers as needed. Morbid obesity. Advised dietary restrictions and regimental exercise. Generalized anxiety disorder. Mood is stable on Lorazepam 3 times a day. She has a psychiatrist and a therapist. GERD/gastroparesis. Continue Reglan 10 MG twice a day. General health concerns discussed with patient. Scribe services used to formulate this note under HIPAA compliance and under [place] law mandated for scribe services. Patient aware of service. Verbal consent and written consent taken from the patient. Patient understands and verbalizes understanding of the scribes services and all questions answered regarding scribes services. Patient agrees to use of scribes services. 08/18/2023 Type 2 diabetes mellitus with other specified complication, without long-term current use of insulin (ICD-10 - E11.69) Maribell is a 62-year-old lady with DM2, hypertension, hyperlipidemia, asthma, insomnia and anxiety here for follow up. Plan is as follows: Type II diabetes mellitus. A1c 6.3. Fasting sugars 151. She is on right medications. She has seen her regional operations director in the past 1 year. Foot care discussed. Check A1c. Hypertension. Blood pressure is within reasonable limits. Continue current regimen. Hyperlipidemia. Triglycerides are running high. Suggested dietary modifications. Continue on current regimen. DVT. She is on Eliquis 5 MG twice a day. Lumbar radiculopathy. She takes oxycodone 30 MG as needed. She uses Lidocaine gel. Urine toxicology reviewed and appropriately positive and negative Left temporomandibular joint dysfunction. Most likely osteoarthritis/arth ralgia. She is currently going to physical therapy Chronic kidney disease stage 3. She does not appear to be in volume overload. Advised appropriate hydration. Avoid NSAIDs. She sees Dr. Lakhani. Asthma. She uses her inhalers as needed. Morbid obesity. Advised dietary restrictions and regimental exercise. Generalized anxiety disorder. She is under a lot of stress and she has been taking Lorazepam 3 times a day. She has a psychiatrist and a therapist. GERD/gastroparesis. Continue Reglan 10 MG twice a day. Blood work reviewed with patient and questions answered. General health concerns discussed with patient. Scribe services used to formulate this note under HIPAA compliance and under [place] law mandated for scribe services. Patient aware of service. Verbal consent and written consent taken from the patient. Patient understands and verbalizes understanding of the scribes services and all questions answered regarding scribes services. Patient agrees to use of scribes services. 09/01/2023 Otalgia, left ear (ICD-10 - H92.02) Maribell is a 62-year-old lady with DM2, hypertension, hyperlipidemia, asthma, insomnia and anxiety here with complaints of left ear pain. There is no apparent discharge, there is no problem hearing. She denies any upper respiratory tract symptoms. Plan is as follows: Otalgia. otitis externa. Advised not to be used Q-tips in the ear and do not use hydrogen peroxide which can irritate the ear canal. She is using ciprofloxacin drops which are helping General health concerns discussed with patient. Scribe services used to formulate this note under HIPAA compliance and under [place] law mandated for scribe services. Patient aware of service. Verbal consent and written consent taken from the patient. Patient understands and verbalizes understanding of the scribes services and all questions answered regarding scribes services. Patient agrees to use of scribes services. 11/15/2023 Radiculopathy, lumbosacral region (ICD-10 - M54.17) Maribell is a 63-year-old lady with DM2, hypertension, hyperlipidemia, asthma, insomnia and anxiety here for follow up. Plan is as follows: Type II diabetes mellitus. A1c 6.6. Glucose 151. She is on right medications. She has seen her regional operations director in the past 1 year. Foot care discussed. Check A1c. Hypertension. Blood pressure is within reasonable limits. Continue current regimen. Hyperlipidemia. Triglycerides are running high. Suggested dietary modifications. Continue on current regimen. DVT. She is on Eliquis 5 MG twice a day. Lumbar radiculopathy. She takes oxycodone 30 MG as needed. She uses Lidocaine gel. Urine toxicology reviewed and is negative for oxycodone and urine will be sent out for evaluation. Urine is positive for benzodiazepines because she is on temazepam Chronic kidney disease stage 3. She does not appear to be in volume overload. Advised appropriate hydration. Avoid NSAIDs. She sees Dr. Lakhani. Asthma. She uses her inhalers as needed. Morbid obesity. Advised dietary restrictions and regimental exercise. Generalized anxiety disorder. Mood is stable on Lorazepam 3 times a day. She has a psychiatrist and a therapist. GERD/gastroparesis. Continue Reglan 10 MG twice a day. General health concerns discussed with patient. Scribe services used to formulate this note under HIPAA compliance and under [place] law mandated for scribe services. Patient aware of service. Verbal consent and written consent taken from the patient. Patient understands and verbalizes understanding of the scribes services and all questions answered regarding scribes services. Patient agrees to use of scribes services. 12/06/2023 Mild persistent asthma, uncomplicated (ICD-10 - J45.30) Maribell is a 63-year-old lady with DM2, hypertension, hyperlipidemia, asthma, insomnia and anxiety here complaining of breathing problems. She also mentioned her throat has been bothering her and she admits getting sick with fever/chills and body aches. She is also complaining of cough associated with wheezing and she also feels dizzy and light headed at this point. Plan is as follows: Mild persistent asthma. Start Doxycycline 100 MG BID for 7 days along with prednisone 20 MG once a day for 7 days. Cough. Discussed there can also be a touch of walking pneumonia. Start Benzonatate 100 MG TID PRN for 7 days. She can also take Tylenol as needed. Advised appropriate hydration. General health concerns discussed with patient. Scribe services used to formulate this note under HIPAA compliance and under [place] law mandated for scribe services. Patient aware of service. Verbal consent and written consent taken from the patient. Patient understands and verbalizes understanding of the scribes services and all questions answered regarding scribes services. Patient agrees to use of scribes services. 02/01/2024 Other conjunctivitis (ICD-10 - H10.89) Maribell is a 63-year-old lady with DM2, hypertension, hyperlipidemia, asthma, insomnia and anxiety here complaining of arthritic pain. She also presents with eye infection today. Plan is as follows: Conjunctivitis. Start Tobramycin ,1 drop into affected eye, every 4 hrs for 7 days. TMJ pain. She was seen by ENT not too long ago and her exams were negative. Advised there is no need to see a Neurology at this point. Margarita. Referred to Dr Cruz at podiatry. Degenerative disc disease/lumbar radiculopathy. She was on oxycodone 30 mg 1 tablet 3 times a day but her recent urine toxicology screen was negative and it was sent to [facility] for further evaluation and it was reported negative for opioids. It is a breach of contract. Patient mentioned that she was told by urologist to stop narcotics when she was on antibiotics. We reached out to urologist and they report did not mention about stopping narcotics. Furthermore we also discussed with the patient that she has been on antibiotics and at the same time she was taking narcotics so there was no indications to stop narcotics. We can refer her to pain management but she is not interested. General health concerns discussed with patient. Scribe services used to formulate this note under HIPAA compliance and under [place] law mandated for scribe services. Patient aware of service. Verbal consent and written consent taken from the patient. Patient understands and verbalizes understanding of the scribes services and all questions answered regarding scribes services. Patient agrees to use of scribes services. 02/01/2024 Left temporomandibular joint disorder, unspecified (ICD-10 - M26.602) Maribell is a 63-year-old lady with DM2, hypertension, hyperlipidemia, asthma, insomnia and anxiety here complaining of arthritic pain. She also presents with eye infection today. Plan is as follows: Conjunctivitis. Start Tobramycin ,1 drop into affected eye, every 4 hrs for 7 days. TMJ pain. She was seen by ENT not too long ago and her exams were negative. Advised there is no need to see a Neurology at this point. Margarita. Referred to Dr Cruz at podiatry. Degenerative disc disease/lumbar radiculopathy. She was on oxycodone 30 mg 1 tablet 3 times a day but her recent urine toxicology screen was negative and it was sent to [facility] for further evaluation and it was reported negative for opioids. It is a breach of contract. Patient mentioned that she was told by urologist to stop narcotics when she was on antibiotics. We reached out to urologist and they report did not mention about stopping narcotics. Furthermore we also discussed with the patient that she has been on antibiotics and at the same time she was taking narcotics so there was no indications to stop narcotics. We can refer her to pain management but she is not interested. General health concerns discussed with patient. Scribe services used to formulate this note under HIPAA compliance and under [place] law mandated for scribe services. Patient aware of service. Verbal consent and written consent taken from the patient. Patient understands and verbalizes understanding of the scribes services and all questions answered regarding scribes services. Patient agrees to use of scribes services. 02/02/2024 Other conjunctivitis (ICD-10 - H10.89) 02/16/2024 Diabetes mellitus due to underlying condition with diabetic neuropathy, unspecified (ICD-10 - E08.40) 02/21/2024 Diabetes mellitus due to underlying condition with diabetic neuropathy, unspecified (ICD-10 - E08.40) Maribell is a 63-year-old lady with DM2, hypertension, hyperlipidemia, asthma, insomnia and anxiety here for follow up. Plan is as follows: Type II diabetes mellitus. Hb A1c improve energy 6.1.She is on right medications. She has seen her regional operations director in the past 1 year. Foot care [...] because she is on temazepam. Referred to [facility] Dr. Iraheta. Chronic kidney [...] day. General health concerns discussed with patient. Scribe services used to formulate this note under HIPAA compliance and under [place] law mandated for scribe services. Patient aware of service. Verbal consent and written consent taken from the patient. Patient understands and verbalizes understanding of the scribes services and all questions answered regarding scribes services. Patient agrees to use of scribes services. 02/29/2024 Acute URI (ICD-10 - J06.9) Maribell is a 63-year-old lady with DM2, hypertension, hyperlipidemia, asthma, insomnia and anxiety here for For flulike symptoms. Plan as follows Acute URI - Negative flu test, negative strep test, per patient negative COVID test. Physical examination is unremarkable, lungs are clear to auscultation bilateral no wheezing is appreciated, vital signs are within normal limits, no exudative tonsils. Differential diagnosis viral URI, low suspicion for bacterial infection. Given an ongoing cough that wakes her up at night I prescribed prednisone short course for 7 days advised on being compliant with taking albuterol and inhaled corticosteroid as scheduled. I will also start patient on benzonatate for the cough, she can also take Tylenol as needed. Advised hydration. Informed patient that if she spikes a fever, nausea or vomit, productive cough with yellowish to greenish sputum, shortness of breath than she should contact us to order an x-ray to rule out pneumonia. I have rendered the services for this patient under direct supervision of Dr. Michael, who did not see the patient but was available upon request I was present and available in the office during the visit 04/18/2024 Diabetes mellitus due to underlying condition with diabetic neuropathy, unspecified (ICD-10 - E08.40) Maribell is a 63-year-old lady with DM2, hypertension, hyperlipidemia, asthma, insomnia and anxiety here for follow up. Plan is as follows: Type II diabetes mellitus. Hb A1c improve energy 6.1.She is on right medications. She has seen her regional operations director in the past 1 year. Foot care [...] because she is on temazepam. Referred to [facility] Dr. Iraheta. Chronic kidney [...] day. General health concerns discussed with patient. 02/21/2024 Radiculopathy, lumbosacral region (ICD-10 - M54.17) Maribell is a 63-year-old lady with DM2, hypertension, hyperlipidemia, asthma, insomnia and anxiety here for follow up. Plan is as follows: Type II diabetes mellitus. Hb A1c improve energy 6.1.She is on right medications. She has seen her regional operations director in the past 1 year. Foot care [...] because she is on temazepam. Referred to [facility] Dr. Iraheta. Chronic kidney [...] day. General health concerns discussed with patient. Scribe services used to formulate this note under HIPAA compliance and under [place] law mandated for scribe services. Patient aware of service. Verbal consent and written consent taken from the patient. Patient understands and verbalizes understanding of the scribes services and all questions answered regarding scribes services. Patient agrees to use of scribes services. 04/18/2024 Essential (primary) hypertension (ICD-10 - I10) Maribell is a 63-year-old lady with DM2, hypertension, hyperlipidemia, asthma, insomnia and anxiety here for follow up. Plan is as follows: Type II diabetes mellitus. Hb A1c improve energy 6.1.She is on right medications. She has seen her regional operations director in the past 1 year. Foot care [...] because she is on temazepam. Referred to [facility] Dr. Iraheta. Chronic kidney [...] day. General health concerns discussed with patient. 02/21/2024 Essential (primary) hypertension (ICD-10 - I10) Maribell is a 63-year-old lady with DM2, hypertension, hyperlipidemia, asthma, insomnia and anxiety here for follow up. Plan is as follows: Type II diabetes mellitus. Hb A1c improve energy 6.1.She is on right medications. She has seen her regional operations director in the past 1 year. Foot care [...] because she is on temazepam. Referred to [facility] Dr. Iraheta. Chronic kidney [...] day. General health concerns discussed with patient. Scribe services used to formulate this note under HIPAA compliance and under [place] law mandated for scribe services. Patient aware of service. Verbal consent and written consent taken from the patient. Patient understands and verbalizes understanding of the scribes services and all questions answered regarding scribes services. Patient agrees to use of scribes services. 08/18/2023 Essential (primary) hypertension (ICD-10 - I10) Maribell is a 62-year-old lady with DM2, hypertension, hyperlipidemia, asthma, insomnia and anxiety here for follow up. Plan is as follows: Type II diabetes mellitus. A1c 6.3. Fasting sugars 151. She is on right medications. She has seen her regional operations director in the past 1 year. Foot care discussed. Check A1c. Hypertension. Blood pressure is within reasonable limits. Continue current regimen. Hyperlipidemia. Triglycerides are running high. Suggested dietary modifications. Continue on current regimen. DVT. She is on Eliquis 5 MG twice a day. Lumbar radiculopathy. She takes oxycodone 30 MG as needed. She uses Lidocaine gel. Urine toxicology reviewed and appropriately positive and negative Left temporomandibular joint dysfunction. Most likely osteoarthritis/arth ralgia. She is currently going to physical therapy Chronic kidney disease stage 3. She does not appear to be in volume overload. Advised appropriate hydration. Avoid NSAIDs. She sees Dr. Lakhani. Asthma. She uses her inhalers as needed. Morbid obesity. Advised dietary restrictions and regimental exercise. Generalized anxiety disorder. She is under a lot of stress and she has been taking Lorazepam 3 times a day. She has a psychiatrist and a therapist. GERD/gastroparesis. Continue Reglan 10 MG twice a day. Blood work reviewed with patient and questions answered. General health concerns discussed with patient. Scribe services used to formulate this note under HIPAA compliance and under [place] law mandated for scribe services. Patient aware of service. Verbal consent and written consent taken from the patient. Patient understands and verbalizes understanding of the scribes services and all questions answered regarding scribes services. Patient agrees to use of scribes services. 02/01/2024 Radiculopathy, lumbosacral region (ICD-10 - M54.17) Maribell is a 63-year-old lady with DM2, hypertension, hyperlipidemia, asthma, insomnia and anxiety here complaining of arthritic pain. She also presents with eye infection today. Plan is as follows: Conjunctivitis. Start Tobramycin ,1 drop into affected eye, every 4 hrs for 7 days. TMJ pain. She was seen by ENT not too long ago and her exams were negative. Advised there is no need to see a Neurology at this point. Margarita. Referred to Dr Cruz at podiatry. Degenerative disc disease/lumbar radiculopathy. She was on oxycodone 30 mg 1 tablet 3 times a day but her recent urine toxicology screen was negative and it was sent to [facility] for further evaluation and it was reported negative for opioids. It is a breach of contract. Patient mentioned that she was told by urologist to stop narcotics when she was on antibiotics. We reached out to urologist and they report did not mention about stopping narcotics. Furthermore we also discussed with the patient that she has been on antibiotics and at the same time she was taking narcotics so there was no indications to stop narcotics. We can refer her to pain management but she is not interested. General health concerns discussed with patient. Scribe services used to formulate this note under HIPAA compliance and under [place] law mandated for scribe services. Patient aware of service. Verbal consent and written consent taken from the patient. Patient understands and verbalizes understanding of the scribes services and all questions answered regarding scribes services. Patient agrees to use of scribes services. 09/21/2023 Essential tremor (ICD-10 - G25.0) Maribell is a 62-year-old lady with DM2, hypertension, hyperlipidemia, asthma, insomnia and anxiety here with complaints of umbilical discharge and TMJ pain. Plan is as follows: Umbilical discharge. Start Cephalexin 500 MG every 8 hours for 7 days. Advised nothing is alarming at this point. TMJ disorder. Referred to Physiatry, Dr. Haley. Essential tremor. Referred to Neurology, General health concerns discussed with patient. Scribe services used to formulate this note under HIPAA compliance and under [place] law mandated for scribe services. Patient aware of service. Verbal consent and written consent taken from the patient. Patient understands and verbalizes understanding of the scribes services and all questions answered regarding scribes services. Patient agrees to use of scribes services. 11/15/2023 Essential (primary) hypertension (ICD-10 - I10) Maribell is a 63-year-old lady with DM2, hypertension, hyperlipidemia, asthma, insomnia and anxiety here for follow up. Plan is as follows: Type II diabetes mellitus. A1c 6.6. Glucose 151. She is on right medications. She has seen her regional operations director in the past 1 year. Foot care discussed. Check A1c. Hypertension. Blood pressure is within reasonable limits. Continue current regimen. Hyperlipidemia. Triglycerides are running high. Suggested dietary modifications. Continue on current regimen. DVT. She is on Eliquis 5 MG twice a day. Lumbar radiculopathy. She takes oxycodone 30 MG as needed. She uses Lidocaine gel. Urine toxicology reviewed and is negative for oxycodone and urine will be sent out for evaluation. Urine is positive for benzodiazepines because she is on temazepam Chronic kidney disease stage 3. She does not appear to be in volume overload. Advised appropriate hydration. Avoid NSAIDs. She sees Dr. Lakhani. Asthma. She uses her inhalers as needed. Morbid obesity. Advised dietary restrictions and regimental exercise. Generalized anxiety disorder. Mood is stable on Lorazepam 3 times a day. She has a psychiatrist and a therapist. GERD/gastroparesis. Continue Reglan 10 MG twice a day. General health concerns discussed with patient. Scribe services used to formulate this note under HIPAA compliance and under [place] law mandated for scribe services. Patient aware of service. Verbal consent and written consent taken from the patient. Patient understands and verbalizes understanding of the scribes services and all questions answered regarding scribes services. Patient agrees to use of scribes services. 05/17/2023 Diabetes mellitus due to underlying condition with diabetic neuropathy, unspecified (ICD-10 - E08.40) Maribell is a 62-year-old lady with DM2, hypertension, hyperlipidemia, asthma, insomnia and anxiety here for annual physical. Plan is as follows: Type II diabetes mellitus. Her blood sugars are within reasonable limits. She is on right medications. She has seen her regional operations director in the past 1 year. Foot care discussed. Hypertension. Her blood pressure is borderline high in the office today. Cut back on sodium intake. Advised appropriate hydration, cardio exercises and weight loss. Continue current regimen. Hyperlipidemia. Continue on current regimen. DVT. She is on Eliquis 5 MG twice a day. Lumbar radiculopathy. She takes oxycodone 30 MG as needed. She uses Lidocaine gel. Urine toxicology reviewed and appropriately positive and negative Chronic kidney disease stage 3. She does not appear to be in volume overload. Advised appropriate hydration. Avoid NSAIDs. She sees Dr. Lakhani. Asthma. She uses her inhalers as needed. Morbid obesity. Advised dietary restrictions and regimental exercise. Generalized anxiety disorder. She is under a lot of stress and she has been taking Lorazepam 3 times a day. She has a psychiatrist and a therapist. GERD/gastroparesis. Continue Reglan 10 MG twice a day. Breast cancer screening. She follows up with her background investigator for breast and pelvic exams. Eye screening. She sees her regional operations director regularly. Dental screening. She sees dentist at least twice a year. Colon cancer screening. She is up to date on her colonoscopy. Immunizations. She is up to date on her COVID vaccinations. Blood work reviewed with patient and questions answered. Screening blood work before next appointment General health concerns discussed with patient. 05/17/2023 Essential (primary) hypertension (ICD-10 - I10) Maribell is a 62-year-old lady with DM2, hypertension, hyperlipidemia, asthma, insomnia and anxiety here for annual physical. Plan is as follows: Type II diabetes mellitus. Her blood sugars are within reasonable limits. She is on right medications. She has seen her regional operations director in the past 1 year. Foot care discussed. Hypertension. Her blood pressure is borderline high in the office today. Cut back on sodium intake. Advised appropriate hydration, cardio exercises and weight loss. Continue current regimen. Hyperlipidemia. Continue on current regimen. DVT. She is on Eliquis 5 MG twice a day. Lumbar radiculopathy. She takes oxycodone 30 MG as needed. She uses Lidocaine gel. Urine toxicology reviewed and appropriately positive and negative Chronic kidney disease stage 3. She does not appear to be in volume overload. Advised appropriate hydration. Avoid NSAIDs. She sees Dr. Lakhani. Asthma. She uses her inhalers as needed. Morbid obesity. Advised dietary restrictions and regimental exercise. Generalized anxiety disorder. She is under a lot of stress and she has been taking Lorazepam 3 times a day. She has a psychiatrist and a therapist. GERD/gastroparesis. Continue Reglan 10 MG twice a day. Breast cancer screening. She follows up with her background investigator for breast and pelvic exams. Eye screening. She sees her regional operations director regularly. Dental screening. She sees dentist at least twice a year. Colon cancer screening. She is up to date on her colonoscopy. Immunizations. She is up to date on her COVID vaccinations. Blood work reviewed with patient and questions answered. Screening blood work before next appointment General health concerns discussed with patient. 08/18/2023 Anxiety disorder, unspecified (ICD-10 - F41.9) Maribell is a 62-year-old lady with DM2, hypertension, hyperlipidemia, asthma, insomnia and anxiety here for follow up. Plan is as follows: Type II diabetes mellitus. A1c 6.3. Fasting sugars 151. She is on right medications. She has seen her regional operations director in the past 1 year. Foot care discussed. Check A1c. Hypertension. Blood pressure is within reasonable limits. Continue current regimen. Hyperlipidemia. Triglycerides are running high. Suggested dietary modifications. Continue on current regimen. DVT. She is on Eliquis 5 MG twice a day. Lumbar radiculopathy. She takes oxycodone 30 MG as needed. She uses Lidocaine gel. Urine toxicology reviewed and appropriately positive and negative Left temporomandibular joint dysfunction. Most likely osteoarthritis/arth ralgia. She is currently going to physical therapy Chronic kidney disease stage 3. She does not appear to be in volume overload. Advised appropriate hydration. Avoid NSAIDs. She sees Dr. Lakhani. Asthma. She uses her inhalers as needed. Morbid obesity. Advised dietary restrictions and regimental exercise. Generalized anxiety disorder. She is under a lot of stress and she has been taking Lorazepam 3 times a day. She has a psychiatrist and a therapist. GERD/gastroparesis. Continue Reglan 10 MG twice a day. Blood work reviewed with patient and questions answered. General health concerns discussed with patient. Scribe services used to formulate this note under HIPAA compliance and under [place] law mandated for scribe services. Patient aware of service. Verbal consent and written consent taken from the patient. Patient understands and verbalizes understanding of the scribes services and all questions answered regarding scribes services. Patient agrees to use of scribes services. 11/15/2023 Chronic kidney disease, stage 3 unspecified (ICD-10 - N18.30) Maribell is a 63-year-old lady with DM2, hypertension, hyperlipidemia, asthma, insomnia and anxiety here for follow up. Plan is as follows: Type II diabetes mellitus. A1c 6.6. Glucose 151. She is on right medications. She has seen her regional operations director in the past 1 year. Foot care discussed. Check A1c. Hypertension. Blood pressure is within reasonable limits. Continue current regimen. Hyperlipidemia. Triglycerides are running high. Suggested dietary modifications. Continue on current regimen. DVT. She is on Eliquis 5 MG twice a day. Lumbar radiculopathy. She takes oxycodone 30 MG as needed. She uses Lidocaine gel. Urine toxicology reviewed and is negative for oxycodone and urine will be sent out for evaluation. Urine is positive for benzodiazepines because she is on temazepam Chronic kidney disease stage 3. She does not appear to be in volume overload. Advised appropriate hydration. Avoid NSAIDs. She sees Dr. Lakhani. Asthma. She uses her inhalers as needed. Morbid obesity. Advised dietary restrictions and regimental exercise. Generalized anxiety disorder. Mood is stable on Lorazepam 3 times a day. She has a psychiatrist and a therapist. GERD/gastroparesis. Continue Reglan 10 MG twice a day. General health concerns discussed with patient. Scribe services used to formulate this note under HIPAA compliance and under [place] law mandated for scribe services. Patient aware of service. Verbal consent and written consent taken from the patient. Patient understands and verbalizes understanding of the scribes services and all questions answered regarding scribes services. Patient agrees to use of scribes services. 02/01/2024 Other hammer toe(s) (acquired), right foot (ICD-10 - M20.41) Maribell is a 63-year-old lady with DM2, hypertension, hyperlipidemia, asthma, insomnia and anxiety here complaining of arthritic pain. She also presents with eye infection today. Plan is as follows: Conjunctivitis. Start Tobramycin ,1 drop into affected eye, every 4 hrs for 7 days. TMJ pain. She was seen by ENT not too long ago and her exams were negative. Advised there is no need to see a Neurology at this point. Margarita. Referred to Dr Cruz at podiatry. Degenerative disc disease/lumbar radiculopathy. She was on oxycodone 30 mg 1 tablet 3 times a day but her recent urine toxicology screen was negative and it was sent to [facility] for further evaluation and it was reported negative for opioids. It is a breach of contract. Patient mentioned that she was told by urologist to stop narcotics when she was on antibiotics. We reached out to urologist and they report did not mention about stopping narcotics. Furthermore we also discussed with the patient that she has been on antibiotics and at the same time she was taking narcotics so there was no indications to stop narcotics. We can refer her to pain management but she is not interested. General health concerns discussed with patient. Scribe services used to formulate this note under HIPAA compliance and under [place] law mandated for scribe services. Patient aware of service. Verbal consent and written consent taken from the patient. Patient understands and verbalizes understanding of the scribes services and all questions answered regarding scribes services. Patient agrees to use of scribes services. 02/21/2024 Chronic kidney disease, stage 3 unspecified (ICD-10 - N18.30) Maribell is a 63-year-old lady with DM2, hypertension, hyperlipidemia, asthma, insomnia and anxiety here for follow up. Plan is as follows: Type II diabetes mellitus. Hb A1c improve energy 6.1.She is on right medications. She has seen her regional operations director in the past 1 year. Foot care [...] because she is on temazepam. Referred to [facility] Dr. Iraheta. Chronic kidney [...] day. General health concerns discussed with patient. Scribe services used to formulate this note under HIPAA compliance and under [place] law mandated for scribe services. Patient aware of service. Verbal consent and written consent taken from the patient. Patient understands and verbalizes understanding of the scribes services and all questions answered regarding scribes services. Patient agrees to use of scribes services. 04/18/2024 Chronic kidney disease, stage 3 unspecified (ICD-10 - N18.30) Maribell is a 63-year-old lady with DM2, hypertension, hyperlipidemia, asthma, insomnia and anxiety here for follow up. Plan is as follows: Type II diabetes mellitus. Hb A1c improve energy 6.1.She is on right medications. She has seen her regional operations director in the past 1 year. Foot care [...] because she is on temazepam. Referred to [facility] Dr. Iraheta. Chronic kidney [...] patient. 04/18/2024 Dysphagia, unspecified (ICD-10 - R13.10) Maribell is a 63-year-old lady with DM2, hypertension, hyperlipidemia, asthma, insomnia and anxiety here for follow up. Plan is as follows: Type II diabetes mellitus. Hb A1c improve energy 6.1.She is on right medications. She has seen her regional operations director in the past 1 year. Foot care [...] because she is on temazepam. Referred to [facility] Dr. Iraheta. Chronic kidney [...] day. General health concerns discussed with patient. 08/18/2023 Insomnia, unspecified (ICD-10 - G47.00) Maribell is a 62-year-old lady with DM2, hypertension, hyperlipidemia, asthma, insomnia and anxiety here for follow up. Plan is as follows: Type II diabetes mellitus. A1c 6.3. Fasting sugars 151. She is on right medications. She has seen her regional operations director in the past 1 year. Foot care discussed. Check A1c. Hypertension. Blood pressure is within reasonable limits. Continue current regimen. Hyperlipidemia. Triglycerides are running high. Suggested dietary modifications. Continue on current regimen. DVT. She is on Eliquis 5 MG twice a day. Lumbar radiculopathy. She takes oxycodone 30 MG as needed. She uses Lidocaine gel. Urine toxicology reviewed and appropriately positive and negative Left temporomandibular joint dysfunction. Most likely osteoarthritis/arth ralgia. She is currently going to physical therapy Chronic kidney disease stage 3. She does not appear to be in volume overload. Advised appropriate hydration. Avoid NSAIDs. She sees Dr. Lakhani. Asthma. She uses her inhalers as needed. Morbid obesity. Advised dietary restrictions and regimental exercise. Generalized anxiety disorder. She is under a lot of stress and she has been taking Lorazepam 3 times a day. She has a psychiatrist and a therapist. GERD/gastroparesis. Continue Reglan 10 MG twice a day. Blood work reviewed with patient and questions answered. General health concerns discussed with patient. Scribe services used to formulate this note under HIPAA compliance and under [place] law mandated for scribe services. Patient aware of service. Verbal consent and written consent taken from the patient. Patient understands and verbalizes understanding of the scribes services and all questions answered regarding scribes services. Patient agrees to use of scribes services. 05/17/2023 Mild persistent asthma, uncomplicated (ICD-10 - J45.30) Maribell is a 62-year-old lady with DM2, hypertension, hyperlipidemia, asthma, insomnia and anxiety here for annual physical. Plan is as follows: Type II diabetes mellitus. Her blood sugars are within reasonable limits. She is on right medications. She has seen her regional operations director in the past 1 year. Foot care discussed. Hypertension. Her blood pressure is borderline high in the office today. Cut back on sodium intake. Advised appropriate hydration, cardio exercises and weight loss. Continue current regimen. Hyperlipidemia. Continue on current regimen. DVT. She is on Eliquis 5 MG twice a day. Lumbar radiculopathy. She takes oxycodone 30 MG as needed. She uses Lidocaine gel. Urine toxicology reviewed and appropriately positive and negative Chronic kidney disease stage 3. She does not appear to be in volume overload. Advised appropriate hydration. Avoid NSAIDs. She sees Dr. Lakhani. Asthma. She uses her inhalers as needed. Morbid obesity. Advised dietary restrictions and regimental exercise. Generalized anxiety disorder. She is under a lot of stress and she has been taking Lorazepam 3 times a day. She has a psychiatrist and a therapist. GERD/gastroparesis. Continue Reglan 10 MG twice a day. Breast cancer screening. She follows up with her background investigator for breast and pelvic exams. Eye screening. She sees her regional operations director regularly. Dental screening. She sees dentist at least twice a year. Colon cancer screening. She is up to date on her colonoscopy. Immunizations. She is up to date on her COVID vaccinations. Blood work reviewed with patient and questions answered. Screening blood work before next appointment General health concerns discussed with patient. 05/17/2023 Radiculopathy, lumbosacral region (ICD-10 - M54.17) Maribell is a 62-year-old lady with DM2, hypertension, hyperlipidemia, asthma, insomnia and anxiety here for annual physical. Plan is as follows: Type II diabetes mellitus. Her blood sugars are within reasonable limits. She is on right medications. She has seen her regional operations director in the past 1 year. Foot care discussed. Hypertension. Her blood pressure is borderline high in the office today. Cut back on sodium intake. Advised appropriate hydration, cardio exercises and weight loss. Continue current regimen. Hyperlipidemia. Continue on current regimen. DVT. She is on Eliquis 5 MG twice a day. Lumbar radiculopathy. She takes oxycodone 30 MG as needed. She uses Lidocaine gel. Urine toxicology reviewed and appropriately positive and negative Chronic kidney disease stage 3. She does not appear to be in volume overload. Advised appropriate hydration. Avoid NSAIDs. She sees Dr. Lakhani. Asthma. She uses her inhalers as needed. Morbid obesity. Advised dietary restrictions and regimental exercise. Generalized anxiety disorder. She is under a lot of stress and she has been taking Lorazepam 3 times a day. She has a psychiatrist and a therapist. GERD/gastroparesis. Continue Reglan 10 MG twice a day. Breast cancer screening. She follows up with her background investigator for breast and pelvic exams. Eye screening. She sees her regional operations director regularly. Dental screening. She sees dentist at least twice a year. Colon cancer screening. She is up to date on her colonoscopy. Immunizations. She is up to date on her COVID vaccinations. Blood work reviewed with patient and questions answered. Screening blood work before next appointment General health concerns discussed with patient. 08/18/2023 Left temporomandibular joint disorder, unspecified (ICD-10 - M26.602) Maribell is a 62-year-old lady with DM2, hypertension, hyperlipidemia, asthma, insomnia and anxiety here for follow up. Plan is as follows: Type II diabetes mellitus. A1c 6.3. Fasting sugars 151. She is on right medications. She has seen her regional operations director in the past 1 year. Foot care discussed. Check A1c. Hypertension. Blood pressure is within reasonable limits. Continue current regimen. Hyperlipidemia. Triglycerides are running high. Suggested dietary modifications. Continue on current regimen. DVT. She is on Eliquis 5 MG twice a day. Lumbar radiculopathy. She takes oxycodone 30 MG as needed. She uses Lidocaine gel. Urine toxicology reviewed and appropriately positive and negative Left temporomandibular joint dysfunction. Most likely osteoarthritis/arth ralgia. She is currently going to physical therapy Chronic kidney disease stage 3. She does not appear to be in volume overload. Advised appropriate hydration. Avoid NSAIDs. She sees Dr. Lakhani. Asthma. She uses her inhalers as needed. Morbid obesity. Advised dietary restrictions and regimental exercise. Generalized anxiety disorder. She is under a lot of stress and she has been taking Lorazepam 3 times a day. She has a psychiatrist and a therapist. GERD/gastroparesis. Continue Reglan 10 MG twice a day. Blood work reviewed with patient and questions answered. General health concerns discussed with patient. Scribe services used to formulate this note under HIPAA compliance and under [place] law mandated for scribe services. Patient aware of service. Verbal consent and written consent taken from the patient. Patient understands and verbalizes understanding of the scribes services and all questions answered regarding scribes services. Patient agrees to use of scribes services. 05/17/2023 Chronic embolism and thrombosis of unspecified deep veins of unspecified lower extremity (ICD-10 - I82.509) Maribell is a 62-year-old lady with DM2, hypertension, hyperlipidemia, asthma, insomnia and anxiety here for annual physical. Plan is as follows: Type II diabetes mellitus. Her blood sugars are within reasonable limits. She is on right medications. She has seen her regional operations director in the past 1 year. Foot care discussed. Hypertension. Her blood pressure is borderline high in the office today. Cut back on sodium intake. Advised appropriate hydration, cardio exercises and weight loss. Continue current regimen. Hyperlipidemia. Continue on current regimen. DVT. She is on Eliquis 5 MG twice a day. Lumbar radiculopathy. She takes oxycodone 30 MG as needed. She uses Lidocaine gel. Urine toxicology reviewed and appropriately positive and negative Chronic kidney disease stage 3. She does not appear to be in volume overload. Advised appropriate hydration. Avoid NSAIDs. She sees Dr. Lakhani. Asthma. She uses her inhalers as needed. Morbid obesity. Advised dietary restrictions and regimental exercise. Generalized anxiety disorder. She is under a lot of stress and she has been taking Lorazepam 3 times a day. She has a psychiatrist and a therapist. GERD/gastroparesis. Continue Reglan 10 MG twice a day. Breast cancer screening. She follows up with her background investigator for breast and pelvic exams. Eye screening. She sees her regional operations director regularly. Dental screening. She sees dentist at least twice a year. Colon cancer screening. She is up to date on her colonoscopy. Immunizations. She is up to date on her COVID vaccinations. Blood work reviewed with patient and questions answered. Screening blood work before next appointment General health concerns discussed with patient. 05/17/2023 Chronic kidney disease, stage 3 unspecified (ICD-10 - N18.30) Maribell is a 62-year-old lady with DM2, hypertension, hyperlipidemia, asthma, insomnia and anxiety here for annual physical. Plan is as follows: Type II diabetes mellitus. Her blood sugars are within reasonable limits. She is on right medications. She has seen her regional operations director in the past 1 year. Foot care discussed. Hypertension. Her blood pressure is borderline high in the office today. Cut back on sodium intake. Advised appropriate hydration, cardio exercises and weight loss. Continue current regimen. Hyperlipidemia. Continue on current regimen. DVT. She is on Eliquis 5 MG twice a day. Lumbar radiculopathy. She takes oxycodone 30 MG as needed. She uses Lidocaine gel. Urine toxicology reviewed and appropriately positive and negative Chronic kidney disease stage 3. She does not appear to be in volume overload. Advised appropriate hydration. Avoid NSAIDs. She sees Dr. Lakhani. Asthma. She uses her inhalers as needed. Morbid obesity. Advised dietary restrictions and regimental exercise. Generalized anxiety disorder. She is under a lot of stress and she has been taking Lorazepam 3 times a day. She has a psychiatrist and a therapist. GERD/gastroparesis. Continue Reglan 10 MG twice a day. Breast cancer screening. She follows up with her background investigator for breast and pelvic exams. Eye screening. She sees her regional operations director regularly. Dental screening. She sees dentist at least twice a year. Colon cancer screening. She is up to date on her colonoscopy. Immunizations. She is up to date on her COVID vaccinations. Blood work reviewed with patient and questions answered. Screening blood work before next appointment General health concerns discussed with patient. Plan Of Treatment Pending Test Test Name Order Date Urinalysis, Routine 07/04/2020 Urine toxicology 11/25/2017 BASIC METABOLIC PANEL 07/04/2020 HEMOGLOBIN A1C 07/04/2020 LIPID PANEL 07/04/2020 PROTIME PROFILE 12/18/2018 Hemoglobin A1C 04/18/2018 Hemoglobin A1C 01/20/2018 UA W/REFLEX MICROSCOPIC & CULTURE 2022 UA W/REFLEX MICROSCOPIC & CULTURE 2022 Albumin/Creatinine Ratio,[id number] Lipid Panel-[id number] 04/18/2024 Comp. Metabolic Panel [id number] 2023 Next Appt Details Provider Name:ELLA MICHAEL , 05/23/2024 09:30:00 AM, [address] [place] [address] [address], [place], [id number], Insurance Providers Payer Name Payer Address Payer Phone Subscriber Number Group Number Insured Name Patient Relationship to Insured Coverage Start Date Coverage End Date [facility] [address] [place] [address] [id number] CLAUDIAMARIBELL Self - patient is the insured Medical (General) History Medical History History ICD Code hypertension, benign hyperlipidemia IDDM T 2, [facility] endo Urinary incontinence and she sees Dr. England at [place] Left shoulder pain and she sees Dr. Alida villa and she is also seen Dr. Diaz Asthma and she sees Pul at [facility] Generalized anxiety disorder and she is seen by a psychiatrist and she goes to [facility] Pain management and has seen Dr. Montiel at [facility] in past Peripheral arterial disease and status post amputation below knee joint currently on Coumadin and goes to Coumadin clinic Lumbar radiculopathy on oxycodone 30 mg 3 times a day DVT leg LE sleep apnea see Pul at [facility] Left leg amputation below knee joint Chronic kidney disease stage 3, Dr. Janis smalls Personal history of COVID-19 GI- [facility] Surgical History Surgery Date(Month/Year) rotator cuff tear repair September 2017 wrist surgery below the knee amputation 25 11 left side for Blood clots 2/2 to OCP and pt was smoking rt toes amputation 2004 right wrist synovial cyst resection, Dr. Henriquez 2021 right carpal tunnel decompression, Dr. Flores hadley 2021 Hospitalization History Reason Date(Month/Year)
--- OUTSIDE RECORDS SUMMARY | 2024-04-18 20:47 | XMS_ITS | Continuity of Care Document ---
Author Organization [facility] Address [address] [place] [id number] Care Team Providers Care Furnace Maintenance Name Role Phone Samuel Hilario MD Primary Care Physician [facility] Date[place] 03/13/24 - 04/12/24 [facility] [address] [place] [id number] Encounter Type: Triage Allergies, Adverse Reactions, Alerts Substance Criticality Severity Reaction Reaction Severity Status naproxen hives Active aspirin anaphylactic re action Hives Active Depakote swelling lips Active Percocet ITCHING Activ e gabapentin Active Vicodin ITCHING Active Peanuts 1 Active Seafood Anaphylactic re action to food anaphylactic reaction shellfish Active Gold Calero C/O: itching Active 1Peanut butter Immunizations Given and Recorded Vaccine Date Status Refusal Reason SARS-CoV-2(COVID-19)mRNA-LNP vac([id number]) 03/08/24 Given influenza virus vaccine, inactivated 03/08/24 Give n Medications atorvastatin 10 mg oral tablet 1 tablet = 10 mg, By Mouth, Daily, # 30 tablet, 0 Refills, Maintenance, Do Not Route Start Date: 08/21/17 Status: Ordered Quantity: 30.0 Unit: tablet Repeat number: 1 azelastine 137 mcg/inh (0.1%) nasal spray 2 sprays, Nares, Both, Daily, PRN Other Allergies, # 30 mL, 4 Refills, Maintenance, 03/22/22 1:50:00 PM EST, [facility] [place], [place] - [phone], Partial fill upon patient requestif the prescription is for a schedule II opioid drug., 2 sprays Nares, Both Daily,PRN:Other Allergies, 158, cm, 11/03/21 9:54:00 EDT, Height, 99.8, kg, 12/18/21 8:59:00 EDT, Dry Weight Start Date: 03/22/22 Status: Ordered Quantity: 30.0 Unit: mL Repeat number: 5 Benadryl 25 mg oral tablet 25 mg, 1, tablet, By Mouth, 3 times a day, PRN as needed for allergy symptoms, # 30 tablet, 0 Refills, Maintenance Start Date: 12/18/21 Status: Ordered Quantity: 30.0 Unit: tablet Repeat number: 1 benzonatate 100 mg oral capsule 0 Refills, Maintenance, 03/08/24 8:22:00 AM EDT, Partial fill upon patient request if the prescription is for a schedule II opioid drug. Start Date: 03/08/24 Status: Ordered Repeat number: 1 busPIRone 10 mg oral tablet 10 mg, 1, tablet, By Mouth, 2 times a day, # 60 tablet, Refills 0, Tot. Refills 0, Maintenance, 08/21/17 6:57:43 PM EDT, Do Not Route Start Date: 08/21/17 Status: Ordered Quantity: 60.0 Unit: tablet Repeat number: 1 cetirizine 10 mg oral tablet 1 tablet = 10 mg, By Mouth, Daily, # 30 tablet, 0 Refills, Maintenance, 08/21/17 7:01:19 PM EDT, Tablet Start Date: 08/21/17 Status: Ordered Quantity: 30.0 Unit: tablet Repeat number: 1 citalopram 20 mg oral tablet 20 mg, 1, tablet, By Mouth, Daily, # 30 tablet, Refills 0, Tot. Refills 0, Maintenance, 08/21/17 6:56:23 PM EDT, Do Not Route Start Date: 08/21/17 Status: Ordered Quantity: 30.0 Unit: tablet Repeat number: 1 CPAP Machine See Instructions, # 1 each, Maintenance, AutoCPAP 01-24., 10/08/22 3:00:00 PM EDT, Compound Start Date: 10/08/22 Status: Ordered Quantity: 1.0 Unit: each Repeat number: 1 Diflucan 150 mg oral tablet 1 tablet = 150 mg, By Mouth, Once, # 1 tablet, 0 Refills, Soft Stop, 09/16/20 9:26:00 PM EDT, Tablet, [facility]/pharmacy #[id number], Partial fill upon patient request if the prescription is for a schedule II opioid drug., 158, cm, 02/11/20 10:02:00 EDT, Height, 116, kg, 07/10/19 7:58:00 EST, Dry Weight Start Date: 09/16/20 Status: Ordered Quantity: 1.0 Unit: tablet Repeat number: 1 Eliquis 5 mg oral tablet TAKE ONE TABLET BY MOUTH 2 (two) times a day Start Date: 05/03/19 Status: Ordered Repeat number: 1 EPI PEN EPI PEN, PRN Anaphylactic Reaction, Refills 0, Maintenance, 12/18/21 9:03:00 AM EDT, Supply Start Date: 12/18/21 Status: Ordered Repeat number: 1 fluticasone CFC free 110 mcg/inh inhalation aerosol 2 puffs, Inhalation, 2 times a day, # 1 each, 5 Refills, Maintenance, 03/15/24 12:40:00 PM EST, [facility], [place], [place] - [phone], Partial fill upon patient request if the prescription is for a schedule II opioid drug., 158, cm, 03/08/24 8:18:00 EDT, Height Start Date: 03/15/24 Status: Ordered Quantity: 1.0 Unit: each Repeat number: 6 Freestyle Antonio Monitor See Instructions, # 1 each, Refills 0, Tot. Refills 0, Maintenance, use as directed for Type 2 Diabetes Mellitus, E11.9, 07/12/23 1:42:00 PM EST, Supply, 158, cm, 06/08/23 12:26:00 EST, Height, 99.8, kg, 12/18/21 8:59:00 EDT, Dry Weight Start Date: 07/12/23 Stop Date: 08/11/23 Status: Ordered Quantity: 1.0 Unit: each Repeat number: 1 Freestyle Antonio Sensor See Instructions, # 6 each, Refills 3, Tot. Refills 3, Maintenance, Antonio 2 sensors one every 14 days use as directed E11.9, 12/13/23 5:14:00 AM EDT, Supply, 158, cm, 06/08/23 12:26:00 EST, Height, 99.8, kg, 12/18/21 8:59:00 EDT, Dry Weight Start Date: 12/13/23 Stop Date: 04/11/24 Status: Ordered Quantity: 6.0 Unit: each Repeat number: 4 Freestyle Lite Test Strips See Instructions, # 150 each, Refills 11, Tot. Refills 11, Maintenance, e11.65. use with freestyle lite meter to test blood glucose 4 times a day, 11/11/21 1:27:00 PM EDT, Supply, 158, cm, 11/03/21 9:54:00 EDT, Height Start Date: 11/11/21 Status: Ordered Quantity: 150.0 Unit: each Repeat number: 12 Freestyle Lite Test Strips See Instructions, # 100 each, Refills 10, Tot. Refills 10, Maintenance, Test three times daily E11.9, 12/03/22 2:25:00 PM EDT, Compound, 158, cm, 09/23/22 12:25:00 EDT, Height, 99.8, kg, 12/18/21 8:59:00 EDT, Dry Weight Start Date: 12/03/22 Status: Ordered Quantity: 100.0 Unit: each Repeat number: 11 gemfibrozil 600 mg oral tablet 600 mg, 1, tablet, By Mouth, 2 times a day, Refills 0, Maintenance, 12/16/21 5:16:00 PM EDT, Partialfill upon patient request if the prescription is for a schedule II opioid drug. Start Date: 12/16/21 Status: Ordered Repeat number: 1 Gemtesa = 75 mg, By Mouth, Daily, 0 Refills, Maintenance, 12/16/21 5:20:00 PM EDT, Partial fill upon patientrequest if the prescription is for a schedule II opioid drug. Start Date: 12/16/21 Status: Ordered Repeat number: 1 hydrocortisone/neomycin/polymyxin B otic 1%-0.35%-79062 u/ml suspension INSTILL 4 DROP IN THE AFFECTED EAR 3 (THREE) TIMES A DAY FOR 7 DAYS Start Date: 06/08/23 Status: Ordered Repeat number: 1 HydrOXYzine = 25 mg, By Mouth, Daily, as needed for anxiety., 0 Refills, Maintenance, 09/04/19 2:18:00 PM EDT Start Date: 09/04/19 Status: Ordered Repeat number: 1 Jardiance 10 mg oral tablet 1 tablet, By Mouth, Daily in AM, # 30 tablet, 6 Refills, Maintenance, 06/08/23 1:10:00 PM EST, [place], [place] - [phone], 158, cm, 06/08/23 12:26:00 EST, Height, 99.8, kg, 12/18/21 8:59:00 EDT, Dry Weight Start Date: 06/08/23 Status: Ordered Quantity: 30.0 Unit: tablet Repeat number: 7 lidocaine 2% topical gel with applicator 10 mL = 0.2 Gm, Topically, Once, # 30 mL, 0 Refills, Maintenance, 03/06/18 10:08:12 AM EDT, Gel Start Date: 03/06/18 Status: Ordered Quantity: 30.0 Unit: mL Repeat number: 1 Lorazepam By Mouth, Daily at bedtime, 0 Refills, Maintenance, 11/03/21 9:59:00 AM EDT, Partial fill upon patient request if the prescription is for a schedule II opioid drug. Start Date: 11/03/21 Status: Ordered Repeat number: 1 losartan 100 mg oral tablet 1 tablet = 100 mg, By Mouth, Daily, # 30 tablet, 0 Refills, Maintenance, 08/21/17 6:54:52 PM EDT Start Date: 08/21/17 Status: Ordered Quantity: 30.0 Unit: tablet Repeat number: 1 meclizine 25 mg oral tablet TAKE 1 TABLET BY MOUTH EVERY TWELVE HOURS NEEDED FOR 10 DAYS Start Date: 06/08/23 Status: Ordered Repeat number: 1 metFORMIN 850 mg oral tablet 1 tablet = 850 mg, By Mouth, 2 times a day, # 60 tablet, 0 Refills, Maintenance, 08/21/17 6:54:39 PMEDT, Tablet Start Date: 08/21/17 Status: Ordered Quantity: 60.0 Unit: tablet Repeat number: 1 metoprolol 100 mg oral tablet, extended release 100 mg, 1, tablet, By Mouth, Daily, # 30 tablet, Refills 0, Tot. Refills 0, Maintenance, 08/21/17 6:54:28 PM EDT, Do Not Route Start Date: 08/21/17 Status: Ordered Quantity: 30.0 Unit: tablet Repeat number: 1 mometasone 0.1% topical cream 1 application, Topically, Daily, # 30 Gm, 0 Refills, Maintenance, 03/06/18 10:07:50 AM EDT, Cream Start Date: 03/06/18 Status: Ordered Quantity: 30.0 Unit: g Repeat number: 1 montelukast 10 mg oral tablet 10 mg, 1, tablet, By Mouth, Daily, Refills 0, Maintenance, 03/06/18 10:07:58 AM EDT Start Date: 03/06/18 Status: Ordered Repeat number: 1 Nebulizer Supplies Nebulizer Supplies, See Instructions, # 1 each, Refills 11, Tot. Refills 11, Maintenance, Nebulizersupplies A7003 Neb Disp Set A7014 Neb non-Disp Filter A7005 Neb Non-Disp set A7015 Aerosol Mask A7013 Neb Disp Filter Length of need lifetime 99 months. dx Asthma J45.909, 02/07/20 1:26:00 PM EDT, Supply Start Date: 02/07/20 Status: Ordered Quantity: 1.0 Unit: each Repeat number: 12 oxycodone 30 mg oral tablet, extended release 1 tablet = 30 mg, By Mouth, Every 12 hours, # 60 tablet, 0 Refills, Maintenance, 08/21/17 7:00:46 PMEDT Start Date: 08/21/17 Status: Ordered Quantity: 60.0 Unit: tablet Repeat number: 1 Ozempic 2 mg/1.5 mL (0.25 mg or 0.5 mg dose) subcutaneous solution = 0.5 mg, Subcutaneous Injection, Every week, rotate injection sites, # 5 each, 6 Refills, Maintenance, 09/29/23 2:26:00 PM EDT, Solution, [place], [place] - [phone], Partial fill upon patient request if the prescription is for a schedule II opioid drug., 0.5 mg Subcutaneous Injection Every week,x30 days,Instr:rotate injection sites, 158, cm, 06/08/23 12:26:00 EST, Height, 99.8, kg, 12/18/21 8:59:00 EDT, Dry Weight Start Date: 09/29/23 Stop Date: 04/26/24 Status: Ordered Quantity: 5.0 Unit: each Repeat number: 7 pantoprazole 40 mg oral delayed release tablet 1 tablet = 40 mg, By Mouth, Daily, # 30 tablet, 0 Refills, Maintenance, 08/21/17 6:57:28 PM EDT Start Date: 08/21/17 Status: Ordered Quantity: 30.0 Unit: tablet Repeat number: 1 ProAir HFA 90 mcg/inh inhalation aerosol with adapter 2, puffs, Inhalation, Every 4 hours, PRN, j45.40, # 1 each, Refills 6, Tot. Refills 6, Maintenance,03/22/22 12:24:00 PM EST, Route to Pharmacy Electronically, [id number], [place], [place] - [phone], 158, cm, 11/03/21 9:54:00 EDT, Height, 99.8, kg, 12/18/21 8:59:00 EDT, Dry Weight Start Date: 03/22/22 Status: Ordered Quantity: 1.0 Unit: each Repeat number: 7 Serevent Diskus 50 mcg inhalation powder 1 puffs, Inhalation, Every 12 hours, # 60 Unknown, 0 Refills, Maintenance, 03/22/22 9:01:00 AM EST,[facility], 30, INHALE 1 PUFF BY MOUTH INTO THE lungs EVERY TWELVE HOURS, 158, cm, 11/03/21 9:54:00 EDT, Height, 99.8, kg, 12/18/21 8:59:00 EDT, Dry Weight Start Date: 03/22/22 Status: Ordered Quantity: 60.0 Unit: Unknown Repeat number: 1 triamcinolone 0.025% topical cream 1 application, Topically, 3 times a day, PRN Itch, # 60 Gm, 0 Refills, Maintenance, 09/16/20 9:27:00PM EDT, Cream, [facility]/pharmacy #[id number], Partial fill upon patient request if the prescription is for a schedule II opioid drug., 1 application Topically 3 times a day,PRN:Itch, 158, cm, 02/11/20 10:02:00 EDT, Height, 116, kg, 07/10/19 7:58:00 EST, Dry Weight Start Date: 09/16/20 Status: Ordered Quantity: 60.0 Unit: g Repeat number: 1 Trulicity Pen 4.5 mg/0.5 mL subcutaneous solution = 0.5 mL, Subcutaneous Injection, Every week, Please take on same day every week, rotate injection sites E11.9, # 2 mL, 11 Refills, Maintenance, 06/08/23 1:10:00 PM EST, Solution, [place], [place] - [phone], Partial fill upon patient request if the prescription is for a schedule II opioid drug., 158, cm, 06/08/23 12:26:00 EST, Height, 99.8, kg, 12/18/21 8:59:00 EDT, Dry Weight Start Date: 06/08/23 Status: Ordered Quantity: 2.0 Unit: mL Repeat number: 12 Vitamin D3 2000 intl units oral tablet 1 tablet = 2,000 International_Units, By Mouth, Daily, # 30 tablet, 0 Refills, Maintenance, :56:10 PM EDT Start Date: 08/21/17 Status: Ordered Quantity: 30.0 Unit: tablet Repeat number: 1 Problem List Condition Confirmation Course Effective Dates Status H ealth Status Informant Amputated below knee Confirmed Active Asthma Confirmed Active Overactive bladder Confirmed Active Chronic kidney disease stage 3 Confirmed Active Essential hypertension Confirmed Active 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 Confirmed Active Hyperlipidemia Confirmed Active Major depression Confirmed Active Urinary incontinence, mixed Confirmed Active 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 Neuropathy, lower extremity Confirmed Active Obesity Confirmed Active MUSA (obstructive sleep apnea) Confirmed Active Severe obesity (BMI 35.0-39.9) with comorbidity Confirmed Active Shoulder pain, bilateral Confirmed Active Thrombophilia Confirmed Active Controlled type 2 diabetes mellitus Confirmed Active Type 2 diabetes mellitus Confirmed Active Social History Social History Type Response Smoking Status Former smoker, quit more than 30 days ago entered on: 03/08/24 Sex Sex Representation Female (finding) Patient Care team information Care Team Personnel Name: Lacey Lopez Position: [facility] Outreach Member Role: Lifetime Consulting Physician Name: Samuel Hilario MD Position: [facility] Physician - Primary Care Member Role: PCP Address: [address] [place] [address] Telecom: Name: Rosa Carney RN Position: [facility] RN Member Role: Primary Care Nurse Name: Coty Steve Position: [facility] Outreach Member Role: Lifetime Consulting Physician Name: Rukhsana Taylor RN Position: [facility] AMB Nurse Member Role: Primary Care Nurse Name: Nata Gottlieb Position: [facility] Outreach Member Role: Lifetime Consulting Physician Name: Juana Ramirez RN Position: [facility] AMB Nurse Member Role: Primary Care Nurse Care Team Related Persons Name: TEJ TAYLOR Name: JUAN TAYLOR Insurance Providers Guarantor name: [facility] Plan Information #: 1 Payer: [facility] Member Number: NA Policy Number: NA Group Number: NA
--- OUTSIDE RECORDS SUMMARY | 2024-04-18 20:47 | XMS_ITS | Continuity of Care Document ---
Author Organization [facility] Address [address] [place] [address]- Care Team Providers Care Noise Abatement Engineer Name Role Phone Samuel Hilario MD Primary Care Physician [id number] Date(s): 03/08/24 - 04/07/24 [facility] [address], [place] [id number] Encounter Type: Triage Allergies, Adverse Reactions, Alerts Substance Criticality Severity Reaction Reaction Severity Status naproxen hives Active aspirin anaphylactic re action Hives Active Depakote swelling lips Active Percocet 5/325 ITCHING Activ e gabapentin Active Vicodin ITCHING Active Peanuts 1 Active Seafood Anaphylactic re action to food anaphylactic reaction shellfish Active Gold Calero C/O: itching Active 1Peanut butter Immunizations Given and Recorded Vaccine Date Status Refusal Reason SARS-CoV-2(COVID-19)mRNA-LNP vac([id number]) 03/08/24 Given influenza virus vaccine, inactivated 03/08/24 [...] 4 Refills, Maintenance, 03/22/22 1:50:00 PM EST, [place], [facility] [place], [place] - [phone], Partial fill upon patient requestif the prescription [...] # 1 tablet, 0 Refills, Soft Stop, 5/11/21 9:26:00 PM EDT, Tablet, [facility]/pharmacy #[id number], Partial fill upon patient request if the [...] Refills, Maintenance, 03/15/24 12:40:00 PM EST, [facility], [place], [place] - [phone], Partial fill upon patient request if the [...] Ordered Repeat number: 1 hydrocortisone/neomycin/polymyxin B otic 1%-0.35%-59755 u/ml suspension INSTILL 4 DROP IN THE [...] 6 Refills, Maintenance, 06/08/23 1:10:00 PM EST, [place], [place] - [phone], 158, cm, 06/08/23 12:26:00 EST, Height, 99.8, [...] Refills, Maintenance, 09/29/23 2:26:00 PM EDT, Solution, [place], [place] - [phone], Partial fill upon patient request if the [...] 12:24:00 PM EST, Route to Pharmacy Electronically, [id number], [place], [place] - [id number], 158, cm, 11/03/21 9:54:00 EDT, Height, 99.8, kg, 12/18/21 8:59:00 EDT, Dry Weight Start Date: 03/22/22 Status: Ordered Quantity: 1.0 Unit: each Repeat number: 7 Serevent Diskus 50 mcg inhalation powder 1 puffs, Inhalation, Every 12 hours, # 60 Unknown, 0 Refills, Maintenance, 03/22/22 9:01:00 AM EST,[facility], 30, INHALE 1 PUFF BY MOUTH INTO THE lungs EVERY TWELVE HOURS, 158, cm, 11/03/21 9:54:00 EDT, Height, 99.8, kg, 12/18/21 8:59:00 EDT, Dry Weight Start Date: 03/22/22 Status: Ordered Quantity: 60.0 Unit: Unknown Repeat number: 1 triamcinolone 0.025% topical cream 1 application, Topically, 3 times a day, PRN Itch, # 60 Gm, 0 Refills, Maintenance, 09/16/20 9:27:00PM EDT, Cream, [facility]/pharmacy #[id number], Partial fill upon patient request if the [...] Refills, Maintenance, 06/08/23 1:10:00 PM EST, [facility], [place], [place] - [phone], Partial fill upon patient request if the [...] Care Team Personnel Name: Lacey Lopez Position: [facility] Outreach Member Role: Lifetime Consulting Physician Name: Samuel Hilario MD Position: [facility] Physician - Primary Care Member Role: PCP Address: [address] [place] [id number] Telecom: Name: Rosa Carney RN Position: [facility] RN Member Role: Primary Care Nurse Name: Coty Steve Position: [facility] Outreach Member Role: Lifetime Consulting Physician Name: Rukhsana Taylor RN Position: [facility] AMB Nurse Member Role: Primary Care Nurse Name: Nata Gottlieb Position: [facility] Outreach Member Role: Lifetime Consulting Physician Name: Juana Ramirez RN Position: [facility] AMB Nurse Member Role: Primary Care Nurse Care Team Related Persons Name: CLAUDIABRIAN Name: JUAN TAYLOR Insurance Providers Guarantor name: [facility] Information #: 1 Payer: [facility] Member Number: NA Policy Number: NA Group Number: NA
--- OUTSIDE RECORDS SUMMARY | 2024-04-18 20:47 | XMS_ITS | Continuity of Care Document ---
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 Name Role Phone Samuel Hilario MD Primary Care Physician Encounter [facility] Date(s): 02/29/24 - 03/30/24 [facility] [address] [place] [id number] Encounter Type: Triage Allergies, Adverse Reactions, Alerts Substance Criticality Severity Reaction Reaction Severity Status naproxen hives Active aspirin anaphylactic re action Hives Active gabapentin Active Vicodin ITCHING Active Depakote swelling lips Active Peanuts 1 Active Seafood Anaphylactic re action to food anaphylactic reaction shellfish Active Percocet 5/325 ITCHING Activ e Gold Calero C/O: itching Active 1Peanut butter Immunizations Given and Recorded Vaccine Date Status Refusal Reason SARS-CoV-2(COVID-19)mRNA-LNP vac([id number]) 03/08/24 Given influenza virus vaccine, inactivated 03/08/24 [...] 4 Refills, Maintenance, 03/22/22 1:50:00 PM EST, [place], [facility] - [place], [place] - [phone], Partial fill upon patient requestif the prescription [...] Soft Stop, 09/16/20 9:26:00 PM EDT, Tablet, [facility]/pharmacy #[id number], Partial fill upon patient request if the [...] Refills, Maintenance, 03/15/24 12:40:00 PM EST, [facility], [place], [place] - [phone], Partial fill upon patient request if the [...] Ordered Repeat number: 1 hydrocortisone/neomycin/polymyxin B otic 1%-0.35%-58543 u/ml suspension INSTILL 4 DROP IN THE [...] 6 Refills, Maintenance, 06/08/23 1:10:00 PM EST, [place], [place] - [phone], 158, cm, 06/08/23 12:26:00 EST, Height, 99.8, [...] Refills, Maintenance, 09/29/23 2:26:00 PM EDT, [facility], [place], [place] - [phone], Partial fill upon patient request if the [...] 12:24:00 PM EST, Route to Pharmacy Electronically, [id number], [place], [place] - [id number], 158, cm, 11/03/21 9:54:00 EDT, Height, 99.8, kg, 12/18/21 8:59:00 EDT, Dry Weight Start Date: 03/22/22 Status: Ordered Quantity: 1.0 Unit: each Repeat number: 7 Serevent Diskus 50 mcg inhalation powder 1 puffs, Inhalation, Every 12 hours, # 60 Unknown, 0 Refills, Maintenance, 03/22/22 9:01:00 AM EST,[facility], 30, INHALE 1 PUFF BY MOUTH INTO THE lungs EVERY TWELVE HOURS, 158, cm, 11/03/21 9:54:00 EDT, Height, 99.8, kg, 12/18/21 8:59:00 EDT, Dry Weight Start Date: 03/22/22 Status: Ordered Quantity: 60.0 Unit: Unknown Repeat number: 1 triamcinolone 0.025% topical cream 1 application, Topically, 3 times a day, PRN Itch, # 60 Gm, 0 Refills, Maintenance, 09/16/20 9:27:00PM EDT, Cream, [facility]/pharmacy #[id number], Partial fill upon patient request if the [...] Refills, Maintenance, 06/08/23 1:10:00 PM EST, [facility], [place], [place] - [phone], Partial fill upon patient request if the [...] Care Team Personnel Name: Lacey Lopez Position: [facility] Outreach Member Role: Lifetime Consulting Physician Name: Samuel Hilario MD Position: [facility] Physician - Primary Care Member Role: PCP Address: [address] [place] [address] Telecom: Name: Rosa Carney RN Position: [facility] RN Member Role: Primary Care Nurse Name: Coty Steve Position: [facility] Outreach Member Role: Lifetime Consulting Physician Name: Rukhsana Taylor RN Position: [facility] AMB Nurse Member Role: Primary Care Nurse Name: Nata Gottlieb Position: [facility] Outreach Member Role: Lifetime Consulting Physician Name: Juana Ramirze RN Position: [facility] AMB Nurse Member Role: Primary Care Nurse Care Team Related Persons Name: TEJ TAYLOR Name: JUAN TAYLOR Insurance Providers Guarantor name: [facility] Plan Information #: 1 Payer: [facility] Member Number: NA Policy Number: NA Group Number: NA
--- OUTSIDE RECORDS SUMMARY | 2024-04-18 20:47 | XMS_ITS | Data Portability ---
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 Plan of Treatment Reminders Order Date Submit Date Provider Last Modified By Organization Details Last Modified Time Details Appointments [facility] 15 2024 10:15A M DURAN NELSON MD Not available Not available Not available Lab None recorded . Referral None recorded . Procedures None recorded . Surgeries None recorded . Imaging MRI, brain, w/wo contrast - prefers [facility] eld 2023 024 [email or web address] [facility] ([facility]), [address] [place], [address], 01/03/2024 14:20:34 Medication Orders clotrima zole-bet amethaso ne 1 %-0.05 % topical cream 2023 024 [facility] [place], [place] - [phone], [address] [place], [address], 02/29/2024 15:08:30 Patient TargetsNo targets recorded. Patient InstructionsNo instructions recorded. Reason for Referral None Reported. Results Created Date Observation Date Name Description Value Unit Range Abnormal Flag Note LastModifiedBy Organization Detail LastModifiedTime 12/13/19 24 12/12/2023 MRI, brain + brain stem, w/wo contr ast [facility] Access ion Number : [id number] Jhoana lange Name: Maribell Sweeneya l Record Number : [id number] Date of : 1960 Date of Exam: 2023 Referr ing Physic kellen: Duran [facility]es [facility] [place] [address] [place] [address] Exam: MR Brain (C-/C+ ) CPT 24867 Room Descri ption: [facility] Verio 3.0T MR Brain (C-/C+ ) CPT 78604 INDICA TION / CLINIC AL QUESTI ON: Trigem inal neural nish TECHNI QUE: Multip lanar, multis equenc e MRI of the brain was perfor med with and withou t intrav enous contra st. 20 mL Dotare m intrav enous contra st was admini stered . COMPAR KIANA: CT head 024. FINDIN GS: BRAIN and EXTRA- AXIAL SPACES : High-r esolut ion imagin g of the basal cister ns was perfor med. On the right, there is a promin ent draini ng vein abutti ng and mildly indent ing the latera l aspect of the cister nal right trigem inal nerve. On the left, there is a tiny branch vein coursi ng inferi or to the cister nal trigem inal nerve, with no defini te compre ssion or indent ation of the nerve. There is no mass effect , midlin e shift, or efface ment of the basal cister ns. On diffus ion weight ed imagin g, there are no region s of restri cted diffus ion to indica te an acute or subacu te infarc t. There is no eviden ce of intrac ranial hemorr homero on suscep tibili ty sensit kathleen sequen ce. Mild to modera te patchy foci of T2 prolon gation are seen in the subcor tical, deep, and perive ntricu lar white matter . The midlin e struct ures are unrema rkable . Ventri cles, cister ns, and sulci are mildly promin ent, consis tent with volume loss, withou t hydroc ephalu s. No abnorm al extra- axial fluid collec tions are seen. Mening eal surfac es are normal . No abnorm al intrac ranial enhanc ement is seen. Major intrac ranial flow voids are presen t. EXTRAC RANIAL SOFT TISSUE S: Orbits are unrema rkable . There is mild scatte red mucosa l thicke mraiposa in the parana agustin sinuse s, with trace layeri ng fluid in the left maxill shirin sinus. Trace bilate ral mastoi d effusi ons are presen t. Octavianooph radha al contou r is symmet drew. BONES: Marrow signal is preser josemanuel. IMPRES CORNELIO: 1. No mass, infarc t, or other acute intrac ranial abnorm ality. 2. High resolu tion imagin g of the basal cister ns demons trates mild indent ation of the right trigem inal nerve by a promin ent draini ng vein; a smalle r draini ng vein abuts the inferi or left trigem inal nerve withou t indent ation or compre ssion. Correl ate with latera l to the patien t's sympto ms. 3. Mild scatte red mucosa l thicke mariposa in the parana agustin sinuse s with small amount of layeri ng fluid in the left maxill shirin sinus. This may reflec t acute sinusi tis in the appro riate clinic al settin g. Correl ate with patien t's sympto ms. 4. Mild to modera te T2/FLA IR hyperi ntense foci in the white matter , nonspe cific but most common ly reflec ting chroni c small vessel diseas e. Electr onical ly Signed By: Abdulaziz Parmar MD [facility] ([facility]) [address] [facility] [place], [address], 12/31/2023 04:57:08 12/28/19 24 07/18/2023 imagi ng/di agnos tic resul t No observ ation record ed. [email or web address] Not Available 03:26:08 12/28/19 24 07/18/2023 imagi ng/di agnos tic resul t No observ ation record ed. [email or web address] Not Available 03:26:11 12/28/19 24 07/19/2023 imagi ng/di agnos tic resul t No observ ation record ed. [email or web address] Not Available 03:26:12 12/28/19 24 08/04/2020 imagi ng/di agnos tic resul t No observ ation record ed. [email or web address] Not Available 03:26:14 12/28/19 24 04/08/2021 imagi ng/di agnos tic resul t No observ ation record ed. [email or web address] Not Available 03:26:50 Result Notes None recorded. Problems Name Problem SNOMED Code Status Onset Date Resolution Date Notes Provider Name and Address Organization Details Recorded Time Otalgia of left ear 0649322896 Active 2020 Otalgia, left ear; Note: Date Diagnosed : 04/08/2021 3:18 PM (H92.02) Not Available [facility] 4 02:15:47 Diffuse otitis externa 67752270 Active 2020 Diffuse otitis externa, left ear; Note: Date Diagnosed : 07/17/2020 5:26 PM (H60.312) Note: Date Diagnosed : 07/17/2020 5:26 PM (H60.312) Not Available [facility] 4 00:49:08 Pain of left temporoma ndibular joint [id number] 553945 Active 2020 Arthralgi a of left temporoma ndibular joint; Note: Date Diagnosed : 04/08/2021 3:18 PM (M26.622) Not Available [facility] 4 02:15:35 Tinnitus of left ear 91589157074 06 Active 2020 Tinnitus, left ear; Note: Date Diagnosed : 04/08/2021 3:18 PM (H93.12) Not Available [facility] 4 02:13:36 Disorder of nasal sinus 6568225 Active 2019 Unspecifi ed disorder of nose and nasal sinuses; Note: Date Diagnosed : 12/11/2019 7:07 PM (J34.9) Not Available [facility] 4 02:14:50 Disorder of the nose 09913194 Active 2019 Unspecifi ed disorder of nose and nasal sinuses; Note: Date Diagnosed : 12/11/2019 7:07 PM (J34.9) Not Available [facility] 4 02:14:50 Dysphagia 88652004 Active 2017 Dysphagia , unspecifi ed; Note: Date Diagnosed : 10/26/2017 3:35 PM (R13.10) Not Available [facility] 4 02:15:17 Acute maxillary sinusitis 41941431 Active 2019 Acute maxillary sinusitis , unspecifi ed; Note: Date Diagnosed : 12/11/2019 7:07 PM (J01.00) Not Available [facility] 4 02:13:26 Itching of skin 195039465 Active 2019 Pruritus, unspecifi ed; Note: Date Diagnosed : 12/17/2019 9:41 AM (L29.9) Not Available [facility] 4 02:15:04 Gastroeso phageal reflux disease without esophagit is 325728296 Active 2017 Gastro-es ophageal reflux disease without esophagit is; Note: Date Diagnosed : 10/26/2017 3:36 PM (K21.9) Not Available [facility] 4 02:13:57 Sensorine ural hearing loss 63752187 Active 2020 Sensorine ural hearing loss, unilatera l, left ear, with unrestric trisha hearing on the contralat eral side; Note: Date Diagnosed : 08/04/2020 11:03 AM (H90.42) Not Available [facility] 4 02:14:29 Trigemina l neuralgia 10470929 Active 2023 DURAN NELSON MD [address] [place] [address], [facility] [place], [address] , [facility] - [facility] 4 18:40:58 Localized masticato ry muscle soreness 736123802 Active 2023 Myalgia of masticati on muscle; Note: Date Diagnosed : 07/26/2023 2:53 PM (M79.11) Not Available [facility] 4 02:15:11 Type 2 diabetes mellitus without complicat ion 038669930 Active 2023 Type 2 diabetes mellitus without complicat ions; Note: Date Diagnosed : 06/13/2023 1:31 PM (E11.9) Not Available [facility] 4 02:15:17 Problem Notes None recorded. Procedures Surgical History None recorded. Imaging Results Imaging Date Name Status LastModified by Organiz ation Details LastModified Time 12/12/2023 MRI, brain + brain stem, w/wo contrast completed [facility] ([facility]) [address], [place], [address], 12/31/2023 04:57:08 07/18/2023 imaging/diagn ostic result completed Information not available 12/28/2023 03:26:08 07/18/2023 imaging/diagn ostic result completed Information not available 12/28/2023 03:26:11 07/19/2023 imaging/diagn ostic result completed Information not available 12/28/2023 03:26:12 08/04/2020 imaging/diagn ostic result completed Information not available 12/28/2023 03:26:14 04/08/2021 imaging/diagn ostic result completed Information not available 12/28/2023 03:26:50 Procedure Notes None recorded. Medical Equipment None Reported. Allergies Allergen ID Allergen Name Allergen Category Reaction Reaction Severity Criticality Documentation Date Start Date Code Code System Note Provider Name and Address Organization Details Recorded Time 71585 aspirin medicatio n other Not available Not available 09/20/2023 1191 RxNorm React ion: unkno wn, unspe cifie d;; Not Available [facility] 4 00:49:02 36059 acetamino phen / oxycodone medicatio n other Not available Not available 09/20/2023 15871 3 RxNorm React ion: unkno wn, unspe cifie d;; Not Available [facility] 4 00:49:48 65637 naproxen medicatio n other Not available Not available 09/20/2023 7258 RxNorm React ion: unkno wn, unspe cifie d;; Not Available [facility] 4 00:49:48 Medications Name Sig Start Date Stop Date Status Note LastModified by Organization Details LastModified Time d3 50 mcg (1999 ut) caps active Not Available Not Available Not Available alcohol pads 70 % pads active Not Available Not Available Not Available safety lancet 30g/press ure activate d misc active Not Available Not Available Not Available true comfort safety pen needles 32g x 4mm 32g x 4 mm misc active Not Available Not Available Not Available true comfort safety lancets/3 0g misc active Not Available Not Available Not Available neomycin- polymyxin -hydrocor t 3.5 mg/mL-10, 000 unit/mL-1 % ear solution INSTILL 4 DROP IN THE AFFECTED EAR 3 (THREE) TIMES A DAY FOR 7 DAYS active Not Available Not Available No t Available prednison e 10 mg tablet TAKE 1 TABLET BY MOUTH ONCE DAILY FOR 7 DAYS 01/11 completed Not Available Not Available Not Available doxycycli ne hyclate 100 mg capsule TAKE 1 CAPSULE BY MOUTH two (2) times a day FOR 7 DAYS 01/11 completed Not Available Not Available Not Available citalopra m 40 mg tablet Take one (1) tablet by mouth every morning. Dose reduced from 60m to 40mg per day active Not Available Not Available No t Available trazodone 50 mg tablet TAKE 1 TO 2 TABLETS BY MOUTH ONCE DAILY AT BEDTIME active Not Available Not Available No t Available atorvasta tin 10 mg tablet TAKE 1 TABLET BY MOUTH ONCE DAILY active Not Available Not Available No t Available tizanidin e 4 mg tablet TAKE 1 TABLET BY MOUTH 3 (THREE) TIMES A DAY NEEDED active Not Available Not Available No t Available fluconazo le 150 mg tablet TAKE 1 TABLET BY MOUTH EVERY 3 DAYS 01/11 completed Not Available Not Available Not Available benzonata te 200 mg capsule TAKE 1 CAPSULE BY MOUTH 3 (THREE) TIMES A DAY active Not Available Not Available No t Available metronida zole 0.75 % (37.5 mg/5 gram) vaginal gel INSERT 1 APPLICAT ORFUL VAGINALL Y ONCE A DAY AT BEDTIME FOR 10 DAYS active Not Available Not Available No t Available ondansetr on HCl 4 mg tablet TAKE 1 TABLET BY MOUTH two (2) times a day FOR 7 DAYS 01/11 completed Not Available Not Available Not Available prednison e 20 mg tablet TAKE 1 TABLET BY MOUTH ONCE DAILY FOR 7 DAYS 01/11 completed Not Available Not Available Not Available Alcohol Pads USE TOPICALL Y 3 (THREE) TIMES A DAY DIRECTED active Not Available Not Available No t Available metoprolo l succinate ER 100 mg tablet,ex tended release 24 hr TAKE 1 TABLET BY MOUTH ONCE DAILY active Not Available Not Available No t Available metformin 850 mg tablet TAKE ONE TABLET BY MOUTH two (2) times a day. TAKE WITH MEALS active Not Available Not Available No t Available amlodipin e 5 mg tablet TAKE ONE TABLET BY MOUTH ONCE A DAY active Not Available Not Available No t Available ciproflox acin 500 mg tablet Take 1 tablet by mouth twice a day 2023 active Medicati on ID: [id number] D uration Value: 10 Brand Name: ciproflo xacin HCl Send Method: E-Prescr ibed Sub s Allowed: subs OK Medic ationGen ericName : ciproflo xacin HCl Not Available Not Available Not Available zinc oxide 20 % topical ointment APPLY TO THE AFFECTED AREA TOPICALL Y two (2) times a day active Not Available Not Available No t Available nystatin- triamcino lone 100,000 unit/gram -0.1 % topical ointment APPLY TO THE AFFECTED AREA TOPICALL Y two (2) times a day FOR UP TO 2 WEEKS active Not Available Not Available No t Available cyprohept adine 4 mg tablet 2017 active Medicati on ID: [id number] D uration Value: 30 Brand Name: cyprohep tadine S end Method: E-Prescr ibed Sub s Allowed: subs OK Speci al Instruct ion: TAKE ONE TABLET BY MOUTH 3 (THREE) TIMES A DAY NEEDED FOR ITCH Med icationG enericNa me: cyprohep tadine Not Available Not Available Not Available citalopra m 20 mg tablet TAKE 1 TABLET BY MOUTH EVERY MORNING WITH 40mg TABLET, TDD 60mg 01/11 completed Not Available Not Available Not Available temazepam 30 mg capsule Take one (1) capsule by mouth at bedtime, as needed for sleep active Not Available Not Available No t Available meclizine 25 mg tablet TAKE 1 TABLET BY MOUTH EVERY TWELVE HOURS NEEDED FOR 10 DAYS active Not Available Not Available No t Available benzonata te 100 mg capsule TAKE 1 CAPSULE BY MOUTH 3 (THREE) TIMES A DAY NEEDED FOR 7 DAYS active Not Available Not Available No t Available econazole 1 % topical cream APPLY TO THE AFFECTED AREA TOPICALL Y two (2) times a day active Not Available Not Available No t Available cephalexi n 500 mg capsule TAKE 1 CAPSULE BY MOUTH EVERY 8 HOURS FOR 7 DAYS 10/19 completed Not Available Not Available Not Available clotrimaz ole-betam ethasone 1 %-0.05 % topical cream APPLY a small amount of cream TO THE AFFECTED AREA 1 TO 2 TIMES PER WEEK OR APPLY NEEDED FOR PAIN OR itching active Not Available Not Available No t Available lidocaine 5 % topical patch APPLY 1 PATCH TOPICALL Y TO THE AFFECTED AREA FOR 12 HOURS A DAY. remove patch after 12 hours. USE NEEDED FOR most painful AREA active Not Available Not Available No t Available clotrimaz ole 1 % topical solution 01/11 completed Medicati on ID: [id number] D uration Value: 14 Prescri bed By Name: AZUCENA Andrade nd Name: clotrima zoldeja Pa d Method: E-Prescr ibed Sub s Allowed: subs OK Speci al Instruct ion: 4 drops to affected ear BID x 2 weeks Me dication GenericN jean carlos: clotrima zole Not Available Not Available Not Available omeprazol e 20 mg capsule,d elayed release TAKE 1 CAPSULE BY MOUTH 30 MINUTES BEFORE BREAKFAS T active Not Available Not Available No t Available monteluka st 10 mg tablet TAKE 1 TABLET BY MOUTH ONCE A DAY active Not Available Not Available No t Available hydroxyzi ne HCl 25 mg tablet TAKE 1 TABLET BY MOUTH EVERY NIGHT AT BEDTIME NEEDED FOR ITCH active Not Available Not Available No t Available hydrochlo rothiazid e 25 mg tablet TAKE 1 TABLET BY MOUTH IN THE MORNING active Not Available Not Available No t Available mupirocin 2 % topical ointment 1 a small amount 2020 active Medicati on ID: [id number] D uration Value: 7 Prescri bed By Name: AZUCENA Andrade nd Name: lyndseypirocfrankie abel Send Method: E-Prescr ibed Sub s Allowed: subs OK Medic ationGen ericName : mupiroci n Not Available Not Available Not Available oxycodone 30 mg tablet TAKE 1 TABLET BY MOUTH 3 (THREE) TIMES A DAY NEEDED FOR PAIN active Not Available Not Available No t Available lorazepam 1 mg tablet Take one (1) tablet by mouth twice a day, as needed active Not Available Not Available No t Available azelastin e 137 mcg (0.1 %) nasal spray SPRAY TWICE INTO EACH NOSTRIL ONCE DAILY NEEDED FOR ALLERGIE S active Not Available Not Available No t Available epinephri ne 0.3 mg/0.3 mL injection , auto-inje ctor INJECT INTRAMUS CULARLY THE CONTENT OF 1 pen as indicate d by anaphyla xis active Not Available Not Available No t Available polyethyl mayito glycol 3350 17 gram/dose oral powder DISSOLVE 1 capful (17gm) IN WATER AND DRINK 1 TO 2 TIMES daily as NEEDED FOR CONSTIPA TION active Not Available Not Available No t Available fluocinon dee 0.05 % topical cream APPLY TO ARMS AND ON LEGS ONCE DAILY NEEDED FOR flares, decrease USE as SYMPTOMS improve 01/11 completed Not Available Not Available Not Available ondansetr on 4 mg disintegr ating tablet place 1 TABLET UNDER THE TONGUE TO DISSOLVE EVERY 8 HOURS NEEDED FOR NAUSEA AND FOR VOMITING active Not Available Not Available No t Available losartan 100 mg tablet TAKE 1 TABLET BY MOUTH ONCE DAILY active Not Available Not Available No t Available doxycycli ne hyclate 100 mg tablet TAKE 1 TABLET BY MOUTH two (2) times a day FOR 7 DAYS 01/11 completed Not Available Not Available Not Available loratadin e 10 mg tablet TAKE 1 TABLET BY MOUTH ONCE DAILY active Not Available Not Available No t Available metoclopr amide 10 mg tablet TAKE 1 TABLET BY MOUTH 6 TIMES A DAY FOR gastropa resis active Not Available Not Available No t Available amoxicill in 875 mg-potass ium clavulana te 125 mg tablet TAKE 1 TABLET BY MOUTH two (2) times a day 10/19 completed Not Available Not Available Not Available Ventolin HFA 90 mcg/actua tion aerosol inhaler INHALE TWO PUFFS BY MOUTH BY MOUTH EVERY 4 HOURS NEEDED FOR WHEEZING active Not Available Not Available No t Available neomycin- polymyxin -hydrocor t 3.5 mg-10,000 unit/mL-1 % ear drops,randy p INSTILL 4 DROP IN THE AFFECTED EAR 3 (THREE) TIMES A DAY FOR 7 DAYS 01/11 completed Not Available Not Available Not Available TobraDex 0.3 %-0.1 % eye drops,randy pension 01/11 completed Medicati on ID: [id number] Aquilino newberry By Name: AZUCENA Andrade nd Name: TobraDex Send Method: E-Prescr ibed Sub s Allowed: subs OK Speci al Instruct ion: Instill 3 drops in the affect ear BID for 14 days Med icationG enericNa me: TobraDex Not Available Not Available Not Available ezetimibe 10 mg tablet TAKE 1 TABLET BY MOUTH ONCE DAILY active Not Available Not Available No t Available ciproflox acin 0.3 %-dexamet hasone 0.1 % ear drops,randy pension Instill 4 drop into left ear twice a day as directed 01/11 completed Not Available Not Available Not Available nitrofura ntoin monohydra te/macroc rystals 100 mg capsule TAKE 1 CAPSULE BY MOUTH two (2) times a day FOR 3 DAYS. must TAKE WITH A MEAL OR FOOD active Not Available Not Available No t Available Flovent HFA 110 mcg/actua tion aerosol inhaler INHALE TWO PUFFS BY MOUTH two (2) times a day. RINSE MOUTH AFTER USE active Not Available Not Available No t Available Nyamyc 100,000 unit/gram topical powder APPLY TO THE AFFECTED AREA TOPICALL Y 3 (THREE) TIMES A DAY. APPLY TO abdomina l fold bilatera lly active Not Available Not Available No t Available DermOtic Oil 0.01 % ear drops 5 drop 2020 active Medicati on ID: [id number] D uration Value: 30 Prescri bed By Name: Matt lovell MD Brand Name: DermOtic Oil Send Method: E-Prescr ibed Sub s Allowed: subs OK Medic ationGen ericName : DermOtic Oil Not Available Not Available Not Available FreeStyle Lite Strips USE TO TEST FINGER STICK BLOOD SUGAR 3 (THREE) TIMES A DAY active Not Available Not Available No t Available Lantus Solostar U-100 Insulin 100 unit/mL (3 mL) subcutane ous pen INJECT 90 UNITS SUBCUTAN EOUSLY ONCE DAILY active Not Available Not Available No t Available omeprazol e 20 mg tablet,de layed release 1 tablet by mouth 10/19 completed Medicati on ID: [id number] D uration Value: 30 Prescri bed By Name: Paula KrugerVINAY nd Name: omeprazo le Send Method: E-Prescr ibed Sub s Allowed: subs OK Speci al Instruct ion: Take 1 tablet by mouth every day before a meal Med icationG enericNa me: omeprazo le Medic ation ID: [id number] D uration Value: 30 Prescri bed By Name: Paula KrugerVINAY nd Name: omeprazo le Send Method: E-Prescr ibed Sub s Allowed: subs OK Speci al Instruct ion: Take 1 tablet by mouth every day before a meal Med icationG enericNa me: omeprazo le Not Available Not Available Not Available diclofena c 1 % topical gel APPLY TO THE AFFECTED AREA 3 (THREE) TIMES A DAY DIRECTED active Not Available Not Available No t Available cholecalc iferol (vitamin D3) 50 mcg (2,000 unit) capsule TAKE 1 CAPSULE BY MOUTH ONCE DAILY active Not Available Not Available No t Available Eliquis 5 mg tablet TAKE 1 TABLET BY MOUTH two (2) times a day active Not Available Not Available No t Available Comfort EZ Pen [place] 32 gauge x 5/32 USE TO INJECT insulin 5 TIMES A DAY active Not Available Not Available No t Available Jardiance 10 mg tablet TAKE 1 TABLET BY MOUTH EVERY MORNING active Not Available Not Available No t Available Flonase Allergy Relief 50 mcg/actua tion nasal spray,randy pension 2 puff into both nostrils 2019 active Medicati on ID: [id number] D uration Value: 30 Prescri bed By Name: AZUCENA Alexandra nd Name: Flonase Allergy Relief S end Method: E-Prescr ibed Sub s Allowed: subs OK Medic ationGen ericName : Flonase Allergy Relief Not Available Not Available Not Available True Comfort Lancet 30 gauge USE TO TEST FINGER STICK BLOOD SUGAR 3 (THREE) TIMES A DAY active Not Available Not Available No t Available FreeStyle Antonio 2 Sensor kit Antonio 2 sensors; one every 14 days use as directed ; E11.9 active Not Available Not Available No t Available FreeStyle Antonio 2 [place] USE DIRECTED active Not Available Not Available No t Available Trulicity 4.5 mg/0.5 mL subcutane ous pen injector INJECT THE CONTENT OF 1 pen SUBCUTAN EOUSLY EVERY WEEK. USE ON THE same DAY EVERY WEEK. rotate injectio n sites 10/19 completed Not Available Not Available Not Available Gemtesa 75 mg tablet TAKE 1 TABLET BY MOUTH ONCE DAILY active Not Available Not Available No t Available True Comfort Safety Pen Needle 32 gauge x 5/32 USE TO INJECT INSULIN FIVE TIMES DAILY active Not Available Not Available No t Available Ozempic 0.25 mg or 0.5 mg (2 mg/3 mL) subcutane ous pen injector INJECT 0.5mg UNDER THE SKIN EACH WEEK. rotate injectio n sites active Not Available Not Available No t Available Vitals Date Recorded Body height Body mass index (BMI) Body weight Provider Name and Address Organization Details Last Updated DateTime 12/27/2023 157.48 cm 35.5 kg/m2 92760.92 g Nyla Rowland [place] - [facility] 12/27/2023 13:07:29 Date Recorded Body height Body mass index (BMI) Body weight Provider Name and Address Organization Details Last Updated DateTime 01/12/2024 157.48 cm 35.5 kg/m2 25363.92 g Nyla Rowland [facility] 01/12/2024 13:05:16 Date Recorded Body height Body mass index (BMI) Body weight Provider Name and Address Organization Details Last Updated DateTime 10/20/2023 157.48 cm 38.2 kg/m2 97304.81 g Nyla Rowland [facility] 10/20/2023 13:21:31 Social History None recorded. Functional Status None recorded. Mental Status None recorded. Family History Nothing Reported. Medical History No medical history recorded. Gynecological HistoryNo gynecological history recorded. Obstetrics History GPAL:G 0 P 0 0 0 0 Past Encounters Encounter ID Performer Location Encounter Start Date Encounter Closed Date Diagnosis/Indication Diagnosis SNOMED-CT Code Diagnosis ICD10 Code [id number] DURAN NELSON MD [facility] on [address] [place] [address] 10/20/2023 13:04:44 10/20/2023 14:59:17 Otalgia of left ear 0699209675 H92.02 Trigeminal neuralgia 316 38351 G50.0 [id number] DURAN NELSON MD [facility] on [address] [place] [id number] 2 12/27/2023 13:00:52 12/27/2023 13:42:13 Diffuse otitis externa [id number] H60.312 Otalgia of left ear 1010 [id number] H92.02 [id number] DURAN NELSON MD [facility] on [address] [place] [id number] 2 01/12/2024 12:56:02 01/12/2024 14:21:07 Otalgia of left ear [id number] H92.02 Health Concerns Section Related Observation LastModified by Organization Detai ls LastModified Time None Recorded Concern Status LastModified by Organization Details LastModified Time None Recorded Advance Directives Directive None Recorded Payers Encounter Date Sequence Insurance Name Policy Number Policy Yost Covered Member ID Yost Member ID Guarantor Name 10/20/2023 1 [facility] [id number] Maribell H Colon [id number] 1 Maribell H Colon 12/27/2023 1 [facility] [id number] Maribell H Colon [id number] 1 Maribell H Colon 01/12/2024 1 [facility] [id number] Maribell H Colon [id number] 1 Maribell H Colon Notes Date Note Type Note Provider Name and Address Organization Details Recorded Time 10/20/2023 text/html 63 yo F presents for follow up of her left ear. She is here for scheduled cerumen removal, but she is concerned about persistent pain. She was seen in [place] at the end of January and had a CT which purportedly showed possible infection in the left sinus, but overall symptoms thought to be more consistent with trigeminal neuralgia. She has not yet seen a neurologist. PV:62-year-old female presents for reevaluation of left-sided periauricular pain. Patient has well controlled diabetes and has been followed for a left-sided OE. Initially a wick was placed and she was treated with oral ciprofloxacin and ciprodex drops. She discontinued oral medication after several days as she was having hallucinations. She did continue Ciprodex drops. When the wick was removed she had improved canal edema but but with persistent OE. She was having significant pain with manipulation of the ear and given history of diabetes a CT temporal bone was recommended to rule out osteomyelitis. This was completed and noted to be normal, without signs of chronic inflammation, middle ear, or mastoid disease. Today she reports continued pain in the ear particularly with manipulation. The pain is behind the ear and radiates out into her face. She has completed her otic drops as prescribed and her sugars remain well-managed.Previo usly, the patient has been evaluated for pain on left side in our office with normal ear exam. She had a CT scan of the neck at [place] which did not show any sign of malignancy or adenopathy. She has had persistent normal ear examination in the presence of significant otalgia. There was concern about temporal arteritis versus trigeminal neuralgia. She had a negative temporal artery biopsy. There has also been concern about TMJ D in the past. She has a mouth guard which she wears every night. She reports that she wakes up in the morning and can barely open her mouth to to tightness DURAN NELSON MD [address] [place] [address], [id number], [facility] - [facility] 10/30/2023 18:46:54 12/27/2023 text/html 63-year-old luis carlos bull presents today for follow-up and reassessment of her ear. PV:63 yo F presents for follow up of her left ear. She is here for scheduled cerumen removal, but she is concerned about persistent pain. She was seen in [place] at the end of January and had a CT which purportedly showed possible infection in the left sinus, but overall symptoms thought to be more consistent with trigeminal neuralgia. She has not yet seen a neurologist. PV:62-year-old female presents for reevaluation of left-sided periauricular pain. Patient has well controlled diabetes and has been followed for a left-sided OE. Initially a wick was placed and she was treated with oral ciprofloxacin and ciprodex drops. She discontinued oral medication after several days as she was having hallucinations. She did continue Ciprodex drops. When the wick was removed she had improved canal edema but but with persistent OE. She was having significant pain with manipulation of the ear and given history of diabetes a CT temporal bone was recommended to rule out osteomyelitis. This was completed and noted to be normal, without signs of chronic inflammation, middle ear, or mastoid disease. Today she reports continued pain in the ear particularly with manipulation. The pain is behind the ear and radiates out into her face. She has completed her otic drops as prescribed and her sugars remain well-managed.Previo usly, the patient has been evaluated for pain on left side in our office with normal ear exam. She had a CT scan of the neck at [place] which did not show any sign of malignancy or adenopathy. She has had persistent normal ear examination in the presence of significant otalgia. There was concern about temporal arteritis versus trigeminal neuralgia. She had a negative temporal artery biopsy. There has also been concern about TMJ D in the past. She has a mouth guard which she wears every night. She reports that she wakes up in the morning and can barely open her mouth to to tightness DURAN NELSON MD [address] [place] [address],[address], [id number], [facility] 01/03/2024 08:17:01 01/12/2024 text/html 63 yo F presents for follow up after lotrisone injection on the left. She does feel improvement in left otalgia. \ She was seen in [place] at the end of January and had a CT which purportedly showed possible infection in the left sinus, but overall symptoms thought to be more consistent with trigeminal neuralgia. Of note, her imaging earlier this year did not show clinically significant sinus disease. She has not yet seen a neurologist. She has been worked up for the otalgia extensively, including CT temporal bone, CT neck with contrast, dental evaluation, temporal artery biopsy. Since her last visit, she did have an MRI which did show proximity of veins to her trigeminal nerves, but this was actually more prominent on the right side and she is having symptoms on the left. DURAN NELSON MD [address] [place] [address],[address], [phone], [place] - [facility] 01/18/2024 06:10:12 OBGyn Episode No OBEpisode recorded.
--- OUTSIDE RECORDS SUMMARY | 2024-04-18 20:47 | XMS_ITS | Continuity of Care Document ---
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 Name Role Phone Samuel Hilario MD Primary Care Physician Encounter [facility] Date(s): 03/08/24 - 04/07/24 [facility] [address] [place] [id number] Attending Physician: AdmNicole cast Admitting Physician: AdmtrNicole Referring Physician: Admtr, Ar8 Encounter Type: Triage Allergies, Adverse Reactions, Alerts [...] Recorded Vaccine Date Status Refusal Reason SARS-CoV-2(COVID-19)mRNA-LNP vac([id number]) 03/08/24 Given influenza virus vaccine, inactivated 03/08/24 [...] 4 Refills, Maintenance, 03/22/22 1:50:00 PM EST, [facility] - [place], [place] - [phone], Partial fill upon patient requestif the prescription [...] See Instructions, # 1 each, Maintenance, AutoCPAP 9-18., 10/08/22 3:00:00 PM EDT, Compound Start Date: 10/08/22 Status: Ordered Quantity: 1.0 Unit: each Repeat number: 1 Diflucan 150 mg oral tablet 1 tablet = 150 mg, By Mouth, Once, # 1 tablet, 0 Refills, Soft Stop, 09/16/20 9:26:00 PM EDT, Tablet, [facility]/pharmacy #[id number], Partial fill upon patient request if the [...] Refills, Maintenance, 03/15/24 12:40:00 PM EST, [facility], [place], [place] - [phone], Partial fill upon patient request if the [...] Ordered Repeat number: 1 hydrocortisone/neomycin/polymyxin B otic 1%-0.35%-88526 u/ml suspension INSTILL 4 DROP IN THE [...] 6 Refills, Maintenance, 06/08/23 1:10:00 PM EST, [place], [place] - [phone], 158, cm, 06/08/23 12:26:00 EST, Height, 99.8, [...] Refills, Maintenance, 09/29/23 2:26:00 PM EDT, [facility], [place], [place] - [phone], Partial fill upon patient request if the [...] 12:24:00 PM EST, Route to Pharmacy Electronically, [id number], [place], [place] - [phone], 158, cm, 11/03/21 9:54:00 EDT, Height, 99.8, kg, 12/18/21 8:59:00 EDT, Dry Weight Start Date: 03/22/22 Status: Ordered Quantity: 1.0 Unit: each Repeat number: 7 Serevent Diskus 50 mcg inhalation powder 1 puffs, Inhalation, Every 12 hours, # 60 Unknown, 0 Refills, Maintenance, 03/22/22 9:01:00 AM EST,[facility], 30, INHALE 1 PUFF BY MOUTH INTO THE lungs EVERY TWELVE HOURS, 158, cm, 11/03/21 9:54:00 EDT, Height, 99.8, kg, 12/18/21 8:59:00 EDT, Dry Weight Start Date: 03/22/22 Status: Ordered Quantity: 60.0 Unit: Unknown Repeat number: 1 triamcinolone 0.025% topical cream 1 application, Topically, 3 times a day, PRN Itch, # 60 Gm, 0 Refills, Maintenance, 09/16/20 9:27:00PM EDT, Cream, [facility]/pharmacy #[id number], Partial fill upon patient request if the [...] Refills, Maintenance, 06/08/23 1:10:00 PM EST, [facility], [place], [place] - [phone], Partial fill upon patient request if the prescription is for a schedule II opioid drug., 158, cm, 06/08/23 12:26:00 EST, Height, 99.8, kg, 12/18/21 8:59:00 EDT, Dry Weight Start Date: 06/08/23 Status: Ordered Quantity: 2.0 Unit: mL Repeat number: 12 Vitamin D3 2000 intl units oral tablet 1 tablet = 2,000 International_Units, By Mouth, Daily, # 30 tablet, 0 Refills, Maintenance, 186:56:10 PM EDT Start Date: 08/21/17 Status: Ordered [...] on: 03/08/24 Sex Sex Representation Female (finding) Laboratory * Event Display: Non BH Lab Results Authored Date: * Event Display: Non BH Lab Results Authored Date: * Event Display: Non BH Lab Results Authored Date: Radiology * Event Display: CT Scan Abdomen, Non- BH Authored Date: * Event Display: X-Ray Chest, Non- Authored Date: Patient Care team information Care Team Personnel Name: BruceLacey reeder Position: [facility] Outreach Member Role: Lifetime Consulting Physician Name: Samuel Hilario MD Position: [facility] Physician - Primary Care Member Role: PCP Address: [address] [place] [address] Telecom: Name: Rosa Carney RN Position: [facility] RN Member Role: Primary Care Nurse Name: Coty Steve Position: [facility] Outreach Member Role: Lifetime Consulting Physician Name: Rukhsana Taylor RN Position: [facility] AMB Nurse Member Role: Primary Care Nurse Name: Nata Gottlieb Position: [facility] Outreach Member Role: Lifetime Consulting Physician Name: Juana Ramirez RN Position: [facility] AMB Nurse Member Role: Primary Care Nurse Care Team Related Persons Name: TEJ TAYLOR Name: JUAN TAYLOR Insurance Providers Guarantor name: [facility] Health Plan Information #: 1 Payer: [facility] Member Number: NA Policy Number: NA Group Number: NA
== END 2024-04-17 16:14 | disposition home or self-care (01) ==
LOC: HO.HUSH 11:45
PROVIDERS: PCP Hospitalist; Visit Provider Nurse Practitioner Family
DX: R39.9 Unspecified symptoms and signs involving the genitourinary system (principal); R32 Unspecified urinary incontinence
CPT/HCPCS: 99213

== ENCOUNTER 2024-04-20 10:22 | Outpatient (AMB) | payer OTHER, SELFPAY ==
--- OUTSIDE RECORDS SUMMARY | 2024-04-20 10:41 | XMS_ITS ---
Author Organization [facility] Address [address] [place] [address] Care Team Providers Care Optimization Analyst Name Role Phone ELLA MICHAEL Primary Care Provider Adolfo Vilchis Unavailable [phone] Allergies Allergen (clinical drug ingredient) Drug/Non Drug [...] TIMES A DAY DIRECTED for 30 Active Vrrawcoq-Nmtwhqlbr-UJ 1 % 4 drops into affected ear Otic Three times a day for 7 days 05/31/2023 Active Meclizine HCl 25 MG 1 tablet as needed Orally every 12 hrs for 10 days 05/31/2023 Active True Comfort Pen [place] 32G X 4 MM USE TO INJECT insulin 5 TIMES A DAY for 25 Active Lidocaine 5 % Apply 1 patch to the affected area for 12 hours a day. Remove for 12 hours. NEEDED FOR most painful AREA for 30 Active Brucmfbq-Lqiroancq-MP 1 % 4 drops into affected ear [...] Status W/U Status Risk Notes Problem Dysphagia ([id number]) Dysphagia, unspecified (R13.10) Active confirmed Problem Urinary incontinence (477796809) Urinary incontinence, unspecified type (R32) Active confirmed Vital Signs Temperature 97.1 degrees Fahrenheit 04/18/20 Oximetry 91 % 04/18/2024 Heart Rate 88 /min 04/18/2024 Blood pressure systolic 130 mm Hg 04/18/20 Blood pressure diastolic 74 mm Hg 024 Weight 212.8 lbs 04/18/2024 BMI 38.62 kg/m2 04/18/2024 Height 62.24 in 04/18/2024 Encounters Encounter Location Date Provider Diagnosis [facility] [address] [address] 04/18/2024 Adolfo Vilchis Diabetes mellitus du e to underlying condition with diabetic neuropathy, unspecified E08.40 ; Essential (primary) hypertension I10 ; Chronic embolism and thrombosis of unspecified deep veins of unspecified lower extremity I82.509 ; Radiculopathy, lumbosacral region M54.17 ; Chronic kidney disease, stage 3 unspecified N18.30 ; Anxiety disorder, unspecified F41.9 ; Dysphagia, unspecified R13.10 ; Gastroesophageal reflux disease, unspecified whether esophagitis present K21.9 ; Mild persistent asthma, uncomplicated J45.30 ; Obstructive sleep apnea (adult) (pediatric) G47.33 ; Urinary incontinence, unspecified type R32 ; Frequency of micturition R35.0 and Epidermal cyst L72.0 Assessments Encounter Date Diagnosis (ICD Code) Assessment Notes Treatment Notes Treatment Clinical Notes Section Notes 04/18/2024 Diabetes mellitus due to underlying condition with diabetic neuropathy, unspecified (ICD-10 - E08.40) Maribell is a 63-year-old lady with DM2, hypertension, hyperlipidemia, asthma, insomnia and anxiety here for follow up. Plan is as follows: Type II diabetes mellitus. - A1c improve energy 6.1.She is on right medications. She follows with Endocrinology every 3 months. Hypertension. -Blood pressure is within reasonable limits. Continue current regimen. DVT. -She is on Eliquis 5 MG twice a day. Lumbar radiculopathy. - Continue Tylenol arthritis 650 mg 2 tablets twice a day and 1 tablet in the afternoon for breakthrough pains. She follows with [facility] Dr. Iraheta. Chronic kidney disease stage 3. -She does not appear to be in volume overload. Advised appropriate hydration. Avoid NSAIDs. She sees Dr. Lakhani. Asthma. -She uses her inhalers as needed. Follows with Dr. [facility] Generalized anxiety disorder. -Mood is stable on Lorazepam 3 times a day. She has a psychiatrist and a therapist. GERD/gastropares is/dysphagia - Currently she is on omperazole 20m and Reglan 10 MG twice a day. I have increased omperazole to 40mg and advised patient to follow-up with her GI at [facility]. She has an appt in May. MUSA: - Stable on CPAP. Urinary incontience Frequency of micturition: - She has an upcoming procedure to help with urinary incontinence. Negative UA. Negative CVA. It is secondary due to overreactive bladder. Patient is to follow with her urologist Epidermal cyst on the first right big toe: - Reassurance is given. No signs of infection. Continue using abx neosporin. She can also soak foot in salt/water. Apply warm compresses. General health concerns discussed with patient. total of 60 minutes spent with the patient reviewing her problem list and answering questions to her satisfaction I have rendered the services for this patient under direct supervision of Dr. Michael, who did not see the patient but was available upon request 04/18/2024 Essential (primary) hypertension (ICD-10 - I10) Maribell is a 63-year-old lady with DM2, hypertension, hyperlipidemia, asthma, insomnia and anxiety here for follow up. Plan is as follows: Type II diabetes mellitus. - A1c improve energy 6.1.She is on right medications. She follows with Endocrinology every 3 months. Hypertension. -Blood pressure is within reasonable limits. Continue current regimen. DVT. -She is on Eliquis 5 MG twice a day. Lumbar radiculopathy. - Continue Tylenol arthritis 650 mg 2 tablets twice a day and 1 tablet in the afternoon for breakthrough pains. She follows with [facility] Dr. Iraheta. Chronic kidney disease stage 3. -She does not appear to be in volume overload. Advised appropriate hydration. Avoid NSAIDs. She sees Dr. Lakhani. Asthma. -She uses her inhalers as needed. Follows with Dr. [facility] Generalized anxiety disorder. -Mood is stable on Lorazepam 3 times a day. She has a psychiatrist and a therapist. GERD/gastropares is/dysphagia - Currently she is on omperazole 20m and Reglan 10 MG twice a day. I have increased omperazole to 40mg and advised patient to follow-up with her GI at [facility]. She has an appt in May. MUSA: - Stable on CPAP. Urinary incontience Frequency of micturition: - She has an upcoming procedure to help with urinary incontinence. Negative UA. Negative CVA. It is secondary due to overreactive bladder. Patient is to follow with her urologist Epidermal cyst on the first right big toe: - Reassurance is given. No signs of infection. Continue using abx neosporin. She can also soak foot in salt/water. Apply warm compresses. General health concerns discussed with patient. total of 60 minutes spent with the patient reviewing her problem list and answering questions to her satisfaction I have rendered the services for this patient under direct supervision of Dr. 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 Plan is as follows: Type II diabetes mellitus. - A1c improve energy 6.1.She is on right medications. She follows with Endocrinology every 3 months. Hypertension. -Blood pressure is within reasonable limits. Continue current regimen. DVT. -She is on Eliquis 5 MG twice a day. Lumbar radiculopathy. - Continue Tylenol arthritis 650 mg 2 tablets twice a day and 1 tablet in the afternoon for breakthrough pains. She follows with [facility] Dr. Iraheta. Chronic kidney disease stage 3. -She does not appear to be in volume overload. Advised appropriate hydration. Avoid NSAIDs. She sees Dr. Lakhani. Asthma. -She uses her inhalers as needed. Follows with Dr. Rea Generalized anxiety disorder. -Mood is stable on Lorazepam 3 times a day. She has a psychiatrist and a therapist. GERD/gastropares is/dysphagia - Currently she is on omperazole 20m and Reglan 10 MG twice a day. I have increased omperazole to 40mg and advised patient to follow-up with her GI at [facility]. She has an appt in May. MUSA: - Stable on CPAP. Urinary incontience Frequency of micturition: - She has an upcoming procedure to help with urinary incontinence. Negative UA. Negative CVA. It is secondary due to overreactive bladder. Patient is to follow with her urologist Epidermal cyst on the first right big toe: - Reassurance is given. No signs of infection. Continue using abx neosporin. She can also soak foot in salt/water. Apply warm compresses. General health concerns discussed with patient. total of 60 minutes spent with the patient reviewing her problem list and answering questions to her satisfaction I have rendered the services for this patient under direct supervision of Dr. Michael, who did not see the patient but was available upon request 04/18/2024 Radiculopathy, lumbosacral region (ICD-10 - M54.17) Maribell is a 63-year-old lady with DM2, hypertension, hyperlipidemia, asthma, insomnia and anxiety here for follow up. Plan is as follows: Type II diabetes mellitus. - A1c improve energy 6.1.She is on right medications. She follows with Endocrinology every 3 months. Hypertension. -Blood pressure is within reasonable limits. Continue current regimen. DVT. -She is on Eliquis 5 MG twice a day. Lumbar radiculopathy. - Continue Tylenol arthritis 650 mg 2 tablets twice a day and 1 tablet in the afternoon for breakthrough pains. She follows with [facility] Dr. Iraheta. Chronic kidney disease stage 3. -She does not appear to be in volume overload. Advised appropriate hydration. Avoid NSAIDs. She sees Dr. Lakhani. Asthma. -She uses her inhalers as needed. Follows with Dr. Rea Generalized anxiety disorder. -Mood is stable on Lorazepam 3 times a day. She has a psychiatrist and a therapist. GERD/gastropares is/dysphagia - Currently she is on omperazole 20m and Reglan 10 MG twice a day. I have increased omperazole to 40mg and advised patient to follow-up with her GI at [facility]. She has an appt in May. MUSA: - Stable on CPAP. Urinary incontience Frequency of micturition: - She has an upcoming procedure to help with urinary incontinence. Negative UA. Negative CVA. It is secondary due to overreactive bladder. Patient is to follow with her urologist Epidermal cyst on the first right big toe: - Reassurance is given. No signs of infection. Continue using abx neosporin. She can also soak foot in salt/water. Apply warm compresses. General health concerns discussed with patient. total of 60 minutes spent with the patient reviewing her problem list and answering questions to her satisfaction I have rendered the services for this patient under direct supervision of Dr. Michael, who did not see the patient but was available upon request 04/18/2024 Chronic kidney disease, stage 3 unspecified (ICD-10 - N18.30) Maribell is a 63-year-old lady with DM2, hypertension, hyperlipidemia, asthma, insomnia and anxiety here for follow up. Plan is as follows: Type II diabetes mellitus. - A1c improve energy 6.1.She is on right medications. She follows with Endocrinology every 3 months. Hypertension. -Blood pressure is within reasonable limits. Continue current regimen. DVT. -She is on Eliquis 5 MG twice a day. Lumbar radiculopathy. - Continue Tylenol arthritis 650 mg 2 tablets twice a day and 1 tablet in the afternoon for breakthrough pains. She follows with [facility] Dr. Iraheta. Chronic kidney disease stage 3. -She does not appear to be in volume overload. Advised appropriate hydration. Avoid NSAIDs. She sees Dr. Lakhani. Asthma. -She uses her inhalers as needed. Follows with Dr. [facility] Generalized anxiety disorder. -Mood is stable on Lorazepam 3 times a day. She has a psychiatrist and a therapist. GERD/gastropares is/dysphagia - Currently she is on omperazole 20m and Reglan 10 MG twice a day. I have increased omperazole to 40mg and advised patient to follow-up with her GI at [facility]. She has an appt in May. MUSA: - Stable on CPAP. Urinary incontience Frequency of micturition: - She has an upcoming procedure to help with urinary incontinence. Negative UA. Negative CVA. It is secondary due to overreactive bladder. Patient is to follow with her urologist Epidermal cyst on the first right big toe: - Reassurance is given. No signs of infection. Continue using abx neosporin. She can also soak foot in salt/water. Apply warm compresses. General health concerns discussed with patient. total of 60 minutes spent with the patient reviewing her problem list and answering questions to her satisfaction I have rendered the services for this patient under direct supervision of Dr. Michael, who did not see the patient but was available upon request 04/18/2024 Anxiety disorder, unspecified (ICD-10 - F41.9) Maribell is a 63-year-old lady with DM2, hypertension, hyperlipidemia, asthma, insomnia and anxiety here for follow up. Plan is as follows: Type II diabetes mellitus. - A1c improve energy 6.1.She is on right medications. She follows with Endocrinology every 3 months. Hypertension. -Blood pressure is within reasonable limits. Continue current regimen. DVT. -She is on Eliquis 5 MG twice a day. Lumbar radiculopathy. - Continue Tylenol arthritis 650 mg 2 tablets twice a day and 1 tablet in the afternoon for breakthrough pains. She follows with [facility] Dr. Iraheta. Chronic kidney disease stage 3. -She does not appear to be in volume overload. Advised appropriate hydration. Avoid NSAIDs. She sees Dr. Lakhani. Asthma. -She uses her inhalers as needed. Follows with Dr. [facility] Generalized anxiety disorder. -Mood is stable on Lorazepam 3 times a day. She has a psychiatrist and a therapist. GERD/gastropares is/dysphagia - Currently she is on omperazole 20m and Reglan 10 MG twice a day. I have increased omperazole to 40mg and advised patient to follow-up with her GI at [facility]. She has an appt in May. MUSA: - Stable on CPAP. Urinary incontience Frequency of micturition: - She has an upcoming procedure to help with urinary incontinence. Negative UA. Negative CVA. It is secondary due to overreactive bladder. Patient is to follow with her urologist Epidermal cyst on the first right big toe: - Reassurance is given. No signs of infection. Continue using abx neosporin. She can also soak foot in salt/water. Apply warm compresses. General health concerns discussed with patient. total of 60 minutes spent with the patient reviewing her problem list and answering questions to her satisfaction I have rendered the services for this patient under direct supervision of Dr. Michael, who did not see the patient but was available upon request 04/18/2024 Dysphagia, unspecified (ICD-10 - R13.10) Maribell is a 63-year-old lady with DM2, hypertension, hyperlipidemia, asthma, insomnia and anxiety here for follow up. Plan is as follows: Type II diabetes mellitus. - A1c improve energy 6.1.She is on right medications. She follows with Endocrinology every 3 months. Hypertension. -Blood pressure is within reasonable limits. Continue current regimen. DVT. -She is on Eliquis 5 MG twice a day. Lumbar radiculopathy. - Continue Tylenol arthritis 650 mg 2 tablets twice a day and 1 tablet in the afternoon for breakthrough pains. She follows with [facility] Dr. Iraheta. Chronic kidney disease stage 3. -She does not appear to be in volume overload. Advised appropriate hydration. Avoid NSAIDs. She sees Dr. Lakhani. Asthma. -She uses her inhalers as needed. Follows with Dr. [facility] Generalized anxiety disorder. -Mood is stable on Lorazepam 3 times a day. She has a psychiatrist and a therapist. GERD/gastropares is/dysphagia - Currently she is on omperazole 20m and Reglan 10 MG twice a day. I have increased omperazole to 40mg and advised patient to follow-up with her GI at [facility]. She has an appt in May. MUSA: - Stable on CPAP. Urinary incontience Frequency of micturition: - She has an upcoming procedure to help with urinary incontinence. Negative UA. Negative CVA. It is secondary due to overreactive bladder. Patient is to follow with her urologist Epidermal cyst on the first right big toe: - Reassurance is given. No signs of infection. Continue using abx neosporin. She can also soak foot in salt/water. Apply warm compresses. General health concerns discussed with patient. total of 60 minutes spent with the patient reviewing her problem list and answering questions to her satisfaction I have rendered the services for this patient under direct supervision of Dr. Michael, who did not see the patient but was available upon request 04/18/2024 Gastroesophageal reflux disease, unspecified whether esophagitis present (ICD-10 - K21.9) Maribell is a 63-year-old lady with DM2, hypertension, hyperlipidemia, asthma, insomnia and anxiety here for follow up. Plan is as follows: Type II diabetes mellitus. - A1c improve energy 6.1.She is on right medications. She follows with Endocrinology every 3 months. Hypertension. -Blood pressure is within reasonable limits. Continue current regimen. DVT. -She is on Eliquis 5 MG twice a day. Lumbar radiculopathy. - Continue Tylenol arthritis 650 mg 2 tablets twice a day and 1 tablet in the afternoon for breakthrough pains. She follows with [facility] Dr. Iraheta. Chronic kidney disease stage 3. -She does not appear to be in volume overload. Advised appropriate hydration. Avoid NSAIDs. She sees Dr. Lakhani. Asthma. -She uses her inhalers as needed. Follows with Dr. [facility] Generalized anxiety disorder. -Mood is stable on Lorazepam 3 times a day. She has a psychiatrist and a therapist. GERD/gastropares is/dysphagia - Currently she is on omperazole 20m and Reglan 10 MG twice a day. I have increased omperazole to 40mg and advised patient to follow-up with her GI at [facility]. She has an appt in May. MUSA: - Stable on CPAP. Urinary incontience Frequency of micturition: - She has an upcoming procedure to help with urinary incontinence. Negative UA. Negative CVA. It is secondary due to overreactive bladder. Patient is to follow with her urologist Epidermal cyst on the first right big toe: - Reassurance is given. No signs of infection. Continue using abx neosporin. She can also soak foot in salt/water. Apply warm compresses. General health concerns discussed with patient. total of 60 minutes spent with the patient reviewing her problem list and answering questions to her satisfaction I have rendered the services for this patient under direct supervision of Dr. Michael, who did not see the patient but was available upon request 04/18/2024 Mild persistent asthma, uncomplicated (ICD-10 - J45.30) Maribell is a 63-year-old lady with DM2, hypertension, hyperlipidemia, asthma, insomnia and anxiety here for follow up. Plan is as follows: Type II diabetes mellitus. - A1c improve energy 6.1.She is on right medications. She follows with Endocrinology every 3 months. Hypertension. -Blood pressure is within reasonable limits. Continue current regimen. DVT. -She is on Eliquis 5 MG twice a day. Lumbar radiculopathy. - Continue Tylenol arthritis 650 mg 2 tablets twice a day and 1 tablet in the afternoon for breakthrough pains. She follows with [facility] Dr. Iraheta. Chronic kidney disease stage 3. -She does not appear to be in volume overload. Advised appropriate hydration. Avoid NSAIDs. She sees Dr. Lakhani. Asthma. -She uses her inhalers as needed. Follows with Dr. [facility] Generalized anxiety disorder. -Mood is stable on Lorazepam 3 times a day. She has a psychiatrist and a therapist. GERD/gastropares is/dysphagia - Currently she is on omperazole 20m and Reglan 10 MG twice a day. I have increased omperazole to 40mg and advised patient to follow-up with her GI at [facility]. She has an appt in May. MUSA: - Stable on CPAP. Urinary incontience Frequency of micturition: - She has an upcoming procedure to help with urinary incontinence. Negative UA. Negative CVA. It is secondary due to overreactive bladder. Patient is to follow with her urologist Epidermal cyst on the first right big toe: - Reassurance is given. No signs of infection. Continue using abx neosporin. She can also soak foot in salt/water. Apply warm compresses. General health concerns discussed with patient. total of 60 minutes spent with the patient reviewing her problem list and answering questions to her satisfaction I have rendered the services for this patient under direct supervision of Dr. Michael, who did not see the patient but was available upon request 04/18/2024 Obstructive sleep apnea (adult) (pediatric) (ICD-10 - G47.33) Maribell is a 63-year-old lady with DM2, hypertension, hyperlipidemia, asthma, insomnia and anxiety here for follow up. Plan is as follows: Type II diabetes mellitus. - A1c improve energy 6.1.She is on right medications. She follows with Endocrinology every 3 months. Hypertension. -Blood pressure is within reasonable limits. Continue current regimen. DVT. -She is on Eliquis 5 MG twice a day. Lumbar radiculopathy. - Continue Tylenol arthritis 650 mg 2 tablets twice a day and 1 tablet in the afternoon for breakthrough pains. She follows with [facility] Dr. Iraheta. Chronic kidney disease stage 3. -She does not appear to be in volume overload. Advised appropriate hydration. Avoid NSAIDs. She sees Dr. Lahkani. Asthma. -She uses her inhalers as needed. Follows with Dr. [facility] Generalized anxiety disorder. -Mood is stable on Lorazepam 3 times a day. She has a psychiatrist and a therapist. GERD/gastropares is/dysphagia - Currently she is on omperazole 20m and Reglan 10 MG twice a day. I have increased omperazole to 40mg and advised patient to follow-up with her GI at [facility]. She has an appt in May. MUSA: - Stable on CPAP. Urinary incontience Frequency of micturition: - She has an upcoming procedure to help with urinary incontinence. Negative UA. Negative CVA. It is secondary due to overreactive bladder. Patient is to follow with her urologist Epidermal cyst on the first right big toe: - Reassurance is given. No signs of infection. Continue using abx neosporin. She can also soak foot in salt/water. Apply warm compresses. General health concerns discussed with patient. total of 60 minutes spent with the patient reviewing her problem list and answering questions to her satisfaction I have rendered the services for this patient under direct supervision of Dr. Michael, who did not see the patient but was available upon request 04/18/2024 Urinary incontinence, unspecified type (ICD-10 - R32) Maribell is a 63-year-old lady with DM2, hypertension, hyperlipidemia, asthma, insomnia and anxiety here for follow up. Plan is as follows: Type II diabetes mellitus. - A1c improve energy 6.1.She is on right medications. She follows with Endocrinology every 3 months. Hypertension. -Blood pressure is within reasonable limits. Continue current regimen. DVT. -She is on Eliquis 5 MG twice a day. Lumbar radiculopathy. - Continue Tylenol arthritis 650 mg 2 tablets twice a day and 1 tablet in the afternoon for breakthrough pains. She follows with [facility] Dr. Iraheta. Chronic kidney disease stage 3. -She does not appear to be in volume overload. Advised appropriate hydration. Avoid NSAIDs. She sees Dr. Lakhani. Asthma. -She uses her inhalers as needed. Follows with Dr. [facility] Generalized anxiety disorder. -Mood is stable on Lorazepam 3 times a day. She has a psychiatrist and a therapist. GERD/gastropares is/dysphagia - Currently she is on omperazole 20m and Reglan 10 MG twice a day. I have increased omperazole to 40mg and advised patient to follow-up with her GI at [facility]. She has an appt in May. MUSA: - Stable on CPAP. Urinary incontience Frequency of micturition: - She has an upcoming procedure to help with urinary incontinence. Negative UA. Negative CVA. It is secondary due to overreactive bladder. Patient is to follow with her urologist Epidermal cyst on the first right big toe: - Reassurance is given. No signs of infection. Continue using abx neosporin. She can also soak foot in salt/water. Apply warm compresses. General health concerns discussed with patient. total of 60 minutes spent with the patient reviewing her problem list and answering questions to her satisfaction I have rendered the services for this patient under direct supervision of Dr. Michael, who did not see the patient but was available upon request 04/18/2024 Frequency of micturition (ICD-10 - R35.0) Maribell is a 63-year-old lady with DM2, hypertension, hyperlipidemia, asthma, insomnia and anxiety here for follow up. Plan is as follows: Type II diabetes mellitus. - A1c improve energy 6.1.She is on right medications. She follows with Endocrinology every 3 months. Hypertension. -Blood pressure is within reasonable limits. Continue current regimen. DVT. -She is on Eliquis 5 MG twice a day. Lumbar radiculopathy. - Continue Tylenol arthritis 650 mg 2 tablets twice a day and 1 tablet in the afternoon for breakthrough pains. She follows with [facility] Dr. Iraheta. Chronic kidney disease stage 3. -She does not appear to be in volume overload. Advised appropriate hydration. Avoid NSAIDs. She sees Dr. Lakhani. Asthma. -She uses her inhalers as needed. Follows with Dr. Rea Generalized anxiety disorder. -Mood is stable on Lorazepam 3 times a day. She has a psychiatrist and a therapist. GERD/gastropares is/dysphagia - Currently she is on omperazole 20m and Reglan 10 MG twice a day. I have increased omperazole to 40mg and advised patient to follow-up with her GI at [facility]. She has an appt in May. MUSA: - Stable on CPAP. Urinary incontience Frequency of micturition: - She has an upcoming procedure to help with urinary incontinence. Negative UA. Negative CVA. It is secondary due to overreactive bladder. Patient is to follow with her urologist Epidermal cyst on the first right big toe: - Reassurance is given. No signs of infection. Continue using abx neosporin. She can also soak foot in salt/water. Apply warm compresses. General health concerns discussed with patient. total of 60 minutes spent with the patient reviewing her problem list and answering questions to her satisfaction I have rendered the services for this patient under direct supervision of Dr. Michael, who did not see the patient but was available upon request 04/18/2024 Epidermal cyst (ICD-10 - L72.0) Maribell is a 63-year-old lady with DM2, hypertension, hyperlipidemia, asthma, insomnia and anxiety here for follow up. Plan is as follows: Type II diabetes mellitus. - A1c improve energy 6.1.She is on right medications. She follows with Endocrinology every 3 months. Hypertension. -Blood pressure is within reasonable limits. Continue current regimen. DVT. -She is on Eliquis 5 MG twice a day. Lumbar radiculopathy. - Continue Tylenol arthritis 650 mg 2 tablets twice a day and 1 tablet in the afternoon for breakthrough pains. She follows with [facility] Dr. Iraheta. Chronic kidney disease stage 3. -She does not appear to be in volume overload. Advised appropriate hydration. Avoid NSAIDs. She sees Dr. Lakhani. Asthma. -She uses her inhalers as needed. Follows with Dr. Rea Generalized anxiety disorder. -Mood is stable on Lorazepam 3 times a day. She has a psychiatrist and a therapist. GERD/gastropares is/dysphagia - Currently she is on omperazole 20m and Reglan 10 MG twice a day. I have increased omperazole to 40mg and advised patient to follow-up with her GI at [facility]. She has an appt in May. MUSA: - Stable on CPAP. Urinary incontience Frequency of micturition: - She has an upcoming procedure to help with urinary incontinence. Negative UA. Negative CVA. It is secondary due to overreactive bladder. Patient is to follow with her urologist Epidermal cyst on the first right big toe: - Reassurance is given. No signs of infection. Continue using abx neosporin. She can also soak foot in salt/water. Apply warm compresses. General health concerns discussed with patient. total of 60 minutes spent with the patient reviewing her problem list and answering questions to her satisfaction I have rendered the services for this patient under direct supervision of Dr. Michael, who did not see the patient but was available upon request Plan Of Treatment Medication Medication Name Sig Start Date Stop Date Notes Omeprazole 40 MG 1 capsule 1/2 to 1 h our before morning meal Orally Once a day for 30 days 04/18/2024 Pending Test Test Name Order Date Albumin/Creatinine Ratio,[id number] Lipid Panel-[id number] 04/18/2024 Comp. Metabolic Panel [id number] 2023 Next Appt Details Follow Up: schedule Rosanne flores son: Provider Name:ELLA MICHAEL , 05/23/2024 09:30:00 AM, [address] [place] [address], [id number], Procedure Notes * Category Sub-Category Detail Notes Urinalysis Protein: Negative Ketones: Trace Leukocytes: Negative Nitrates: Negative pH: 6 Spec Dania: 1.010 Glucose: Negative Blood: Negative Bilirubin: Negative Urobili: Negative Progress Notes * CLAUDIA MARIBELL HDOB: [birth year] (63 yo F)Acc No.[id number]:04/18/2024 Progress Notes Patient:?MARIBELL TAYLOR Provider:?Adolfo Vilchis DOB:1960???Age:63 Y???Sex:Female D ate:04/18/2024 Address:[address] [place] [address] [place] [phone] Pcp:ELLA MICHAEL Subjective: * Chief Complaints: * ???F/up from the last appoin tment * HPI: ???Internal Medicine:?Maribell is a 63-year-old lady with DM2, hypertension, hyperlipidemia, asthma, insomnia and anxiety here for follow-up. She states that she has a blister on the first digit of the right foot. She has been using Neosporin and slowly improving. She continues nasal congestion, with yellow discharging. She has dry cough. No fever, chills, n/v, SOB. She also states that she has sensation [...] gain?denies.?Weight loss?denies.?Neurologic:?Difficulty speaking?denies.?Dizziness?denies.?Gait abnormality?denies.?Headache?denies.?Loss of strength?denies.?Memory loss?denies.?Seizures?denies.?Tingling/Numbness?denies .?Ophthalmologic:?Blurred vision?denies.?Discharge?denies.?Dry eye?denies.?Red eye?denies.?ENT:?Change in Voice?Denies.?Cold Symptoms?Denies.?Cough?Admits Dry cough..?Dizziness?Denies.?Nasal Congestion?Denies.?Otalgia?Denies.?postnasal drip?Admit.?Blocked ear?denies.?Nosebleed?denies.?Pain?denies.?Snoring?denies.?Cardiovascular:?Diaphoresis?Denies.?Pedal Edema?Denies.?PND (Paroxsymal nocturnal dyspnea)?Denies.?Chest pain?denies.?Difficulty laying flat?denies.?Dyspnea on exertion?denies.?Heart murmur?denies.?Orthopnea?denies.?Respiratory:?Snoring?denies.?Asthma?admits.?Breathing problems?denies.?Cough?admits,non-productive,.?Shortness of breath with exertion?denies.?Sputum production?denies.?Wheezing?denies.?Gastrointestinal:?Patient complaining of?dysphagia.?Change in bowel habits?denies.?Constipation?denies.?Decreased appetite?denies.?Diarrhea?denies.?Heartburn?admits,aggravated by food.?Nausea?denies.?Vomiting?denies.?Musculoskeletal:?tingling/numbness?Denies.?myalgias?Denies.?Joint Swelling?Denies.?extremeties?normal.?Arthritis?denies.?Back problems?denies.?Carpal tunnel?denies.?Joint stiffness?denies.?Muscle aches?admits.?Painful joints?denies.?Endocrine:?Bowel Changes?Denies.?Breast Discharge?Denies.?poor libido?Denies.?Cold intolerance?denies.?Excessive sweating?denies.?Excessive thirst?denies.?Frequent urination?admits.?Thyroid problems?denies.?Skin:?Bruising?Denies.?Eczema?denies.?Hair changes?denies.?Rash?denies.?Skin lesion(s)?denies.?Psychiatric:?Anxiety?denies.?Depressed mood?denies.?Difficulty sleeping?denies.?Nervous breakdown?denies.?Substance abuse?denies.?Urology:?abnormal menstrual bleeding?denies.?blood in urine?denies.?burning on urination?denies.?difficulty urinating?denies.?discharge?denies.?dysuria?denies.? * Medical History:? * Surgical History:? * Hospitalization/Major Diagno stic Procedure:? * Medications:?TakingOzempic ( 0.25 or 0.5 MG/DOSE) 2 MG/3ML Solution Pen-injector as directed Subcutaneous once a week Ventolin HFA 108 (90 Base) MCG/ACT Aerosol Solution 1 puff as needed Inhalation every 4 hrs LORazepam 1 MG Tablet 1 tablet at bedtime as needed Orally Once a day Easy Touch Lancets 28G - Miscellaneous as directed Albuterol Sulfate HFA 108 (90 Base) MCG/ACT Aerosol Solution 2 puffs as needed Inhalation every 6 hrs Azelastine HCl 0.1 % Solution 1 puff in each nostril Nasally Twice a day Citalopram Hydrobromide 40 MG Tablet 2 tablet Orally Once a day , Notes to Pharmacist: PsyMometasone Furoate 0.1 % Cream Apply sparingly first before calcipotriene twice a day to affected areas on arms and chest as needed 30 30 Cyproheptadine HCl 4 MG Tablet TAKE ONE TABLET BY MOUTH 3 (THREE) TIMES A DAY NEEDED FOR ITCH 30 30 Nebulizer/Tubing/Mouthpiece - Kit as directed for treatment of Dx: J45.30 inhalation every 4-6 hours prn Flovent HFA 110 MCG/ACT Aerosol 2 puffs Inhalation 2 times a day,Instr:rinse mouth and throat after use Xopenex 1.25 MG/3ML Nebulization Solution 3 ml Inhalation three times daily EpiPen 2-Amadeo 0.3 MG/0.3ML Solution Auto-injector as directed Injection once as needed FreeStyle Lite - Device as directed to check blood sugars Dx: E11.9 in vitro three times daily Myrbetriq 50 MG Tablet Extended Release 24 Hour 1 tablet Orally twice a day , Notes to Pharmacist: UrologistSerevent Diskus 50 MCG/DOSE Aerosol Powder Breath Activated Inhale 1 Puff into the lungs 2 times daily for 30 days. Insulin Lispro (1 Unit Dial) 100 unit/mL Solution Pen-injector INJECT 30 UNITS UNDER THE SKIN 3 (THREE) TIMES A DAY Metoclopramide HCl 10 MG Tablet 1 tablet before meals Orally Twice a day Ondansetron HCl 4 MG Tablet 1 tablet Orally twice a day Econazole Nitrate 1 % Cream 1 application Externally twice a day Lidocaine HCl Urethral/Mucosal 2 % Gel APPLY SPARINGLY TO THE AFFECTED AREA ON RIGHT TO THE ARM AND CHEST 2 TO 3 TIMES A DAY IF ITCHY Omeprazole 20 mg Capsule Delayed Release TAKE 1 CAPSULE BY MOUTH 30 MINUTES BEFORE morning meal hydroCHLOROthiazide 25 mg Tablet TAKE 1 TABLET BY MOUTH EVERY MORNING Lantus SoloStar 100 UNIT/ML Solution Pen-injector INJECT 90 UNITS UNDER THE SKIN ONCE A DAY DIRECTED True Comfort Pen [place] 32G X 4 MM Miscellaneous USE TO INJECT insulin 5 TIMES A DAY Alcohol Pads 70 % Pad USE TOPICALLY THREE TIMES DAILY DIRECTED Lidocaine 5 % Patch Apply 1 patch to the affected area for 12 hours a day. Remove for 12 hours. NEEDED FOR most painful AREA Meclizine HCl 25 MG Tablet 1 tablet as needed Orally every 12 hrs Nrotmskb-Tzbzydhfo-WS 1 % Solution 4 drops into affected ear Otic Three times a day Diclofenac Sodium 1 % Gel APPLY TO THE AFFECTED AREA 3 (THREE) TIMES A DAY DIRECTED True Comfort Safety Lancets - Miscellaneous USE TO TEST FINGER STICK BLOOD SUGAR 3 (THREE) TIMES A DAY hydrOXYzine HCl 25 mg Tablet TAKE 1 TABLET BY MOUTH EVERY NIGHT AT BEDTIME NEEDED FOR ITCH Loratadine 10 mg Tablet TAKE 1 TABLET BY MOUTH ONCE DAILY FreeStyle Lite Test - Strip USE TO TEST FINGER STICK BLOOD SUGAR 3 (THREE) TIMES A DAY Eliquis 5 mg Tablet TAKE ONE TABLET BY MOUTH two (2) times a day 30 Vitamin D3 50 MCG (1999 UT) Capsule TAKE 1 CAPSULE BY MOUTH ONCE DAILY Atorvastatin Calcium 10 mg Tablet TAKE 1 TABLET BY MOUTH ONCE DAILY amLODIPine Besylate 5 mg Tablet TAKE ONE TABLET BY MOUTH ONCE A DAY metFORMIN HCl 850 mg Tablet TAKE ONE TABLET BY MOUTH two (2) times a day. TAKE WITH MEALS Losartan Potassium 100 mg Tablet TAKE 1 TABLET BY MOUTH ONCE DAILY Metoprolol Succinate ER 100 mg Tablet Extended Release 24 Hour TAKE 1 TABLET BY MOUTH ONCE DAILY Ezetimibe 10 mg Tablet TAKE 1 TABLET BY MOUTH ONCE DAILY tiZANidine HCl 4 mg Tablet 1 tablet oral three times a day prn Montelukast Sodium 10 mg Tablet TAKE 1 TABLET BY MOUTH ONCE A DAY Taking Ozempic (0.25 or 0.5 MG/DOSE) 2 MG/3ML Solution Pen-injector as directed Subcutaneous once a week Taking Ventolin HFA 108 (90 Base) MCG/ACT Aerosol Solution 1 puff as needed Inhalation every 4 hrs Taking LORazepam 1 MG Tablet 1 tablet at bedtime as needed Orally Once a day Taking Easy Touch Lancets 28G - Miscellaneous as directed Taking Albuterol Sulfate HFA 108 (90 Base) MCG/ACT Aerosol Solution 2 puffs as needed Inhalation every 6 hrs Taking Azelastine HCl 0.1 % Solution 1 puff in each nostril Nasally Twice a day Taking Citalopram Hydrobromide 40 MG Tablet 2 tablet Orally Once a day , Notes to Pharmacist: PsyTaking Mometasone Furoate 0.1 % Cream Apply sparingly first before calcipotriene twice a day to affected areas on arms and chest as needed 30 30 Taking Cyproheptadine HCl 4 MG Tablet TAKE ONE TABLET BY MOUTH 3 (THREE) TIMES A DAY NEEDED FOR ITCH 30 30 Taking Nebulizer/Tubing/Mouthpiece - Kit as directed for treatment of Dx: J45.30 inhalation every 4-6 hours prn Taking Flovent HFA 110 MCG/ACT Aerosol 2 puffs Inhalation 2 times a day,Instr:rinse mouth and throat after use Taking Xopenex 1.25 MG/3ML Nebulization Solution 3 ml Inhalation three times daily Taking EpiPen 2-Amadeo 0.3 MG/0.3ML Solution Auto-injector as directed Injection once as needed Taking FreeStyle Lite - Device as directed to check blood sugars Dx: E11.9 in vitro three times daily Taking Myrbetriq 50 MG Tablet Extended Release 24 Hour 1 tablet Orally twice a day , Notes to Pharmacist: UrologistTaking Serevent Diskus 50 MCG/DOSE Aerosol Powder Breath Activated Inhale 1 Puff into the lungs 2 times daily for 30 days. Taking Insulin Lispro (1 Unit Dial) 100 unit/mL Solution Pen-injector INJECT 30 UNITS UNDER THE SKIN 3 (THREE) TIMES A DAY Taking Metoclopramide HCl 10 MG Tablet 1 tablet before meals Orally Twice a day Taking Ondansetron HCl 4 MG Tablet 1 tablet Orally twice a day Taking Econazole Nitrate 1 % Cream 1 application Externally twice a day Taking Lidocaine HCl Urethral/Mucosal 2 % Gel APPLY SPARINGLY TO THE AFFECTED AREA ON RIGHT TO THE ARM AND CHEST 2 TO 3 TIMES A DAY IF ITCHY Taking Omeprazole 20 mg Capsule Delayed Release TAKE 1 CAPSULE BY MOUTH 30 MINUTES BEFORE morning meal Taking hydroCHLOROthiazide 25 mg Tablet TAKE 1 TABLET BY MOUTH EVERY MORNING Taking Lantus SoloStar 100 UNIT/ML Solution Pen-injector INJECT 90 UNITS UNDER THE SKIN ONCE A DAY DIRECTED Taking True Comfort Pen [place] 32G X 4 MM Miscellaneous USE TO INJECT insulin 5 TIMES A DAY Taking Alcohol Pads 70 % Pad USE TOPICALLY THREE TIMES DAILY DIRECTED Taking Lidocaine 5 % Patch Apply 1 patch to the affected area for 12 hours a day. Remove for 12 hours. NEEDED FOR most painful AREA Taking Meclizine HCl 25 MG Tablet 1 tablet as needed Orally every 12 hrs Taking Rljonrdr-Dmdaywzjt-FL 1 % Solution 4 drops into affected ear Otic Three times a day Taking Diclofenac Sodium 1 % Gel APPLY TO THE AFFECTED AREA 3 (THREE) TIMES A DAY DIRECTED Taking True Comfort Safety Lancets - Miscellaneous USE TO TEST FINGER STICK BLOOD SUGAR 3 (THREE) TIMES A DAY Taking hydrOXYzine HCl 25 mg Tablet TAKE 1 TABLET BY MOUTH EVERY NIGHT AT BEDTIME NEEDED FOR ITCH Taking Loratadine 10 mg Tablet TAKE 1 TABLET BY MOUTH ONCE DAILY Taking FreeStyle Lite Test - Strip USE TO TEST FINGER STICK BLOOD SUGAR 3 (THREE) TIMES A DAY Taking Eliquis 5 mg Tablet TAKE ONE TABLET BY MOUTH two (2) times a day 30 Taking Vitamin D3 50 MCG (1999 UT) Capsule TAKE 1 CAPSULE BY MOUTH ONCE DAILY Taking Atorvastatin Calcium 10 mg Tablet TAKE 1 TABLET BY MOUTH ONCE DAILY Taking amLODIPine Besylate 5 mg Tablet TAKE ONE TABLET BY MOUTH ONCE A DAY Taking metFORMIN HCl 850 mg Tablet TAKE ONE TABLET BY MOUTH two (2) times a day. TAKE WITH MEALS Taking Losartan Potassium 100 mg Tablet TAKE 1 TABLET BY MOUTH ONCE DAILY Taking Metoprolol Succinate ER 100 mg Tablet Extended Release 24 Hour TAKE 1 TABLET BY MOUTH ONCE DAILY Taking Ezetimibe 10 mg Tablet TAKE 1 TABLET BY MOUTH ONCE DAILY Taking tiZANidine HCl 4 mg Tablet 1 tablet oral three times a day prn Taking Montelukast Sodium 10 mg Tablet TAKE 1 TABLET BY MOUTH ONCE A DAY Not-TakingTemazepam 30 MG Capsule 1 capsule at bedtime as needed Orally Once a day ProAir HFA 108 (90 Base) MCG/ACT Aerosol Solution 2 puffs Inhalation Every 4 hours,PRN:for wheezing Carafate 1 GM/10ML Suspension 10 ml on an empty stomach Orally Twice a day Ofloxacin 0.3 % Solution 10 drops into affected ear Otic Once a day Qxyoepfe-Izyweqjcy-JI 1 % Solution 4 drops into affected ear Otic Three times a day Fluconazole 150 mg Tablet TAKE 1 TABLET BY MOUTH EVERY 3 DAYS Tobramycin 0.3 % Solution 1 drop into affected eye Ophthalmic every 4 hrs predniSONE 20 MG Tablet 1 tablet Orally Once a day Benzonatate 100 MG Capsule 1 capsule as needed Orally Three times a day Doxycycline Hyclate 100 MG Capsule 1 capsule Orally Twice a day predniSONE 20 MG Tablet 1 tablet Orally Once a day Benzonatate 100 MG Capsule 1 capsule as needed Orally Three times a day oxyCODONE HCl 30 mg Tablet TAKE 1 TABLET BY MOUTH 3 (THREE) TIMES A DAY NEEDED FOR PAIN by mouth 3 times a day Cephalexin 500 MG Capsule 1 capsule Orally every 8 hours predniSONE 10 MG Tablet 1 tablet Orally Once a day Tessalon Perles 100 MG Capsule 1 capsule as needed Orally Three times a day Benzonatate 100 MG Capsule 1 capsule as needed Orally Three times a day Trulicity 1.5 MG/0.5ML Solution Pen-injector inject the content of 1 pen under the skin each week as directed Subcutaneous weekly Trulicity 3 MG/0.5ML Solution Pen-injector inject the content of 1 pen under the skin each week as directed Subcutaneous weekly Azithromycin 250 MG Tablet 2 tablet day one 1 tab daily for 4 days Orally daily Not-Taking Temazepam 30 MG Capsule 1 capsule at bedtime as needed Orally Once a day Not-Taking ProAir HFA 108 (90 Base) MCG/ACT Aerosol Solution 2 puffs Inhalation Every 4 hours,PRN:for wheezing Not-Taking Carafate 1 GM/10ML Suspension 10 ml on an empty stomach Orally Twice a day Not-Taking Ofloxacin 0.3 % Solution 10 drops into affected ear Otic Once a day Not-Taking Ikyjmubn-Vvuukghkm-PY 1 % Solution 4 drops into affected ear Otic Three times a day Not-Taking Fluconazole 150 mg Tablet TAKE 1 TABLET BY MOUTH EVERY 3 DAYS Not-Taking Tobramycin 0.3 % Solution 1 drop into affected eye Ophthalmic every 4 hrs Not-Taking predniSONE 20 MG Tablet 1 tablet Orally Once a day Not-Taking Benzonatate 100 MG Capsule 1 capsule as needed Orally Three times a day Not-Taking Doxycycline Hyclate 100 MG Capsule 1 capsule Orally Twice a day Not-Taking predniSONE 20 MG Tablet 1 tablet Orally Once a day Not-Taking Benzonatate 100 MG Capsule 1 capsule as needed Orally Three times a day Not-Taking oxyCODONE HCl 30 mg Tablet TAKE 1 TABLET BY MOUTH 3 (THREE) TIMES A DAY NEEDED FOR PAIN by mouth 3 times a day Not-Taking Cephalexin 500 MG Capsule 1 capsule Orally every 8 hours Not-Taking predniSONE 10 MG Tablet 1 tablet Orally Once a day Not-Taking Tessalon Perles 100 MG Capsule 1 capsule as needed Orally Three times a day Not-Taking Benzonatate 100 MG Capsule 1 capsule as needed Orally Three times a day Not-Taking Trulicity 1.5 MG/0.5ML Solution Pen-injector inject the content of 1 pen under the skin each week as directed Subcutaneous weekly Not- Taking Trulicity 3 MG/0.5ML Solution Pen-injector inject the content of 1 pen under the skin each week as directed Subcutaneous weekly Not-Taking Azithromycin 250 MG Tablet 2 tablet day one 1 tab daily for 4 days Orally daily UnknownmetroNIDAZOLE 0.75 % Gel _insert 1 APPLICATORFUL VAGINALLY ONCE A DAY AT BEDTIME FOR 10 DAYS Admelog SoloStar 100 UNIT/ML Solution Pen-injector 11 units Subcutaneous three times a day Fluticasone Propionate 50 MCG/ACT Suspension SPRAY TWICE INTO EACH NOSTRIL ONCE A DAY Zofran 4 MG Tablet as directed Orally Fluconazole 50 MG Tablet 1 tablet Orally Daily clonazePAM 1 MG Tablet 2 tablets in the am and 2 tablets in pm Orally twice a day , Notes to Pharmacist: CHDMedication List reviewed and reconciled with the patientUnknown metroNIDAZOLE 0.75 % Gel _insert 1 APPLICATORFUL VAGINALLY ONCE A DAY AT BEDTIME FOR 10 DAYS Unknown Admelog SoloStar 100 UNIT/ML Solution Pen-injector 11 units Subcutaneous three times a day Unknown Fluticasone Propionate 50 MCG/ACT Suspension SPRAY TWICE INTO EACH NOSTRIL ONCE A DAY Unknown Zofran 4 MG Tablet as directed Orally Unknown Fluconazole 50 MG Tablet 1 tablet Orally Daily Unknown clonazePAM 1 MG Tablet 2 tablets in the am and 2 tablets in pm Orally twice a day , Notes to Pharmacist: CHDMedication List reviewed and reconciled with the patient * Allergies:?Aspirin: AllergyN aprosyn: Allergyshellfish: Allergyfish: AllergyGabapentin: AllergyOctopus: anaphylaxis - Allergypeanuts: AllergyJardiance: Yeast infection - Side EffectsSolifenacinLyricaFluocinolone: Unknownno[Allergies Verified] Objective: * Vitals:?Temp:97.1F, Oxygen s at %:91%, HR:88/min, BP:130/74mm Hg, Wt:212.8lbs, BMI:38.62Index, Ht: 62.24 in. * ???Past Orders: ???Lab:Hemoglobin [id number] (Order Date - 02/16/2024) (Collection Date & [...] amputation left leg below knee joint.?FEMALE GENITOURINARY:?__.?MALE GENITOURINARY:?__.?[employer]? .? Assessment: * Assessment: 1.?Diabetes mellitus due to underlying condition with diabetic neuropathy, unspecified - E08.40???2.?Essential (primary) hypertension - I10???3.?Chronic embolism and thrombosis of unspecified deep veins of unspecified lower extremity - I82.509???4.?Radiculopathy, lumbosacral region - M54.17???5.?Chronic kidney disease, stage 3 unspecified - N18.30???6.?Anxiety disorder, unspecified - F41.9???7.?Dysphagia, unspecified - R13.10???8.?Gastroesophageal reflux disease, unspecified whether esophagitis present - K21.9???9.?Mild persistent asthma, uncomplicated - J45.30???10.?Obstructive sleep apnea (adult) (pediatric) - G47.33???11.?Urinary incontinence, unspecified type - R32???12.?Frequency of micturition - R35.0???13.?Epidermal cyst - L72.0??? Maribell is a 63-year-old lady with DM2, hypertension, hyperlipidemia, asthma, insomnia and anxiety here for follow up. Plan is as follows: Type II diabetes mellitus. - A1c improve energy 6.1.She is on right medications. She follows with Endocrinology every 3 months. Hypertension. -Blood pressure is within reasonable limits. Continue current regimen. DVT. -She is on Eliquis 5 MG twice a day. Lumbar radiculopathy. - Continue Tylenol arthritis 650 mg 2 tablets twice a day and 1 tablet in the afternoon for breakthrough pains. She follows with [facility] Dr. Iraheta. Chronic kidney disease stage 3. -She does not appear to be in volume overload. Advised appropriate hydration. Avoid NSAIDs. She sees Dr. Lakhani. Asthma. -She uses her inhalers as needed. Follows with Dr. [facility] Generalized anxiety disorder. -Mood is stable on Lorazepam 3 times a day. She has a psychiatrist and a therapist. GERD/gastroparesis/dysphagia - Currently she is on omperazole 20m and Reglan 10 MG twice a day. I have increased omperazole to 40mg and advised patient to follow-up with her GI at [facility]. She has an appt in May. MUSA: - Stable on CPAP. Urinary incontience Frequency of micturition: - She has an upcoming procedure to help with urinary incontinence. Negative UA. Negative CVA. It is secondary due to overreactive bladder. Patient is to follow with her urologist Epidermal cyst on the first right big toe: - Reassurance is given. No signs of infection. Continue using abx neosporin. She can also soak foot in salt/water. Apply warm compresses. General health concerns discussed with patient. total of 60 minutes spent with the patient reviewing her problem list and answering questions to her satisfaction I have rendered the services for this patient under direct supervision of Dr. Michael, who did not see the patient but was available upon request Plan: * Treatment: 2.?Essential (primary) hyper tension?LAB: Albumin/Creatinine Ratio,[id number] 3.?Dysphagia, unspecified? Start Omeprazole Capsule Delayed Release, 40 MG, 1 capsule 1/2 to 1 hour before morning meal, Orally, Once a day, 30 days, 30, Refills 3.?? * Procedures:?Urinalysis:?Glucose:?Negative.?Bilirubin:?Negative.?Ketones:?Trace.?Spec Dania:?1.010.?Blood:?Negative.?pH:?6.?Protein:?Negative.?Urobili:?Negative.?Nitrates:?Negative.?Leukocytes:?Negative.? * Procedure Codes:?3078F DIAST BP < 80 MM [id number] SYST BP GE 130 - 139MM [id number] URINALYSIS, AUTO, W/O SCOPE, Modifiers: QW * Follow Up:?schedule sandra * * Sign off status: Completed true * Provider:?Adolfo Vilchis Date:?04/18/20 24 Generated for Hood sanchez/Nataliia/eTransmitting on:?04/20/2024 10:40 AM EST History and Physical Notes * HPI [...] discharging. She has dry cough. No fever, chills, n/v, SOB. She also states that she has sensation [...] Normal Psychiatry Normal OROPHARYNX Normal SINUSES Normal [employer]
--- OUTSIDE RECORDS SUMMARY | 2024-04-20 10:41 | XMS_ITS ---
Author Organization [facility] Address [address] [place] [id number] Care Team Providers Care Correctional Probation Officer Name Role Phone ELLA MICHAEL Primary Care Provider [phone] REASON FOR VISIT [facility] request Encounters Encounter Location Date Provider Diagnosis [facility] [address] [address] 04/16/2024 ELLA MICHAEL Plan Of Treatment Next Appt Details Provider Name:ELLA MICHAEL , 05/23/2024 09:30:00 AM, [address] [address], [place], [phone], Progress Notes * ZOIE SWEENEY HDOB: 3 (63 yo F)Acc No.[id number]:04/16/2024 Patient:?ZOIE SWEENEY :1960???Age:63 Y???Sex:Female Address:[address] [place] [id number] * * Date:?
--- OUTSIDE RECORDS SUMMARY | 2024-04-20 10:41 | XMS_ITS ---
Author Organization [facility] Address [address] [place] [phone] Care Team Providers Care Digital Commentator Name Role Phone ELLA MICHAEL Primary Care Provider [phone] REASON FOR VISIT Montelukast Sodium Medications Medication SIG (Take, Route, Frequency, Duration) Notes Start Date End Date Status Montelukast Sodium 10 mg TAKE 1 TABLET B Y MOUTH ONCE A DAY for 30 days Active Encounters Encounter Location Date Provider Diagnosis [address] [address] 04/16/2024 ELLA MICHAEL Plan Of Treatment Medication Medication Name Sig Start Date Stop Date Notes Montelukast Sodium 10 mg TAKE 1 TABLET B Y MOUTH ONCE A DAY for 30 days Next Appt Details Provider Name:ELLA MICHAEL , 05/23/2024 09:30:00 AM, [address] [place] [address], [place], [phone], Progress Notes * ZOIE SWEENEY HDOB: 3 (63 yo F)Acc No.[id number]:04/16/2024 Patient:?ZOIE SWEENEY :1960???Age:63 Y???Sex:Female Address:[address] [place] [id number] * Refills? Refill Montelukast Sodium Tablet, 10 mg, 90 Tablet, TAKE 1 TABLET BY MOUTH ONCE A DAY, 30 days, Refills=5 * true * Date:? Generated for Hood sanchez/Nataliia/eTransmitting on:?04/20/2024 10:41 AM EST
--- OUTSIDE RECORDS SUMMARY | 2024-04-20 10:42 | XMS_ITS | Patient Health Record ---
Author Organization [facility] [facility] Address [address] [place] [address] Care Team Providers Care Meeting Planner Name Role Phone ELLA MICHAEL Primary Care Provider Adolfo Vilchis Unavailable [phone] Allergies Allergen (clinical drug ingredient) Drug/Non Drug [...] kathleen Results Component Value Reference Range Notes Acetaminophen, MS, Ur RFX Reviewed date:11/21/2023 08:01:23 AM Interpretation: Performing Lab:[facility], [address] [place] [address], Phone - [phone], Director - Sheri Notes/Report: ANALGESICS/NSAIDS +POSITIVE+ Acetaminophen PRESENT Hemoglobin [id number] Reviewed date:11/15/2023 07:52:21 AM Interpretation: Performing Lab:[facility], [address] [place] [address], Phone - [phone], Director - Mohsen Notes/Report: Hemoglobin A1c 6.6 4.8-5.6 % . Prediabetes: 5.7 - 6.4 Diabetes: >6.4 Glycemic control for adults with diabetes: <7.0 ToxAssure Flex 23, Urine-[id number] Reviewed date:11/23/2023 09:11:12 AM Interpretation: Performing Lab:[facility], [address] [place] [address], Phone - [phone], Director - Sheri Notes/Report: Summary Report FINAL [...] analysis. NICOTINE METABOLITE Negative Cotinine Not Detected Hemoglobin [id number] Reviewed date:02/20/2024 08:28:37 AM Interpretation: Performing Lab:[facility], [address] [place] [address], [place], Phone - [phone], Director - Mohsen Notes/Report: Hemoglobin A1c 6.1 4.8-5.6 % . Prediabetes: 5.7 - 6.4 Diabetes: >6.4 Glycemic control for adults with diabetes: <7.0 HEMOGLOBIN A1C WITH EST GLUC OSE Reviewed date:06/02/2023 03:03:34 PM Interpretation: Performing Lab:Testing performed or reported by [facility], a Service of [facility], [address] [place] [address] Tim Watson MD, [employer] [facility]# [id number] Notes/Report: HEMOGLOBIN A1C 6.3 (4.0-5.6) % MONITORING: In known diabetic patients, hemoglobin A1c targets should be discussed with health care provider. DIAGNOSTIC USE: The [place] Diabetes [employer] (ADA) and the World Health [...] Interpretation: Performing Lab:Testing performed or reported by [facility], [place] [address] Tim Watson MD, Brick Molder [employer] [facility]# [id number] Notes/Report: MICRO-ALBUMIN <12.0 (<20) MG/L The urine microalbumin test is designed to monitor renal function. When screening for Bence Hinds proteinuria, urine electrophoresis is recommended. MALB/CREAT RATIO Unable to calculate (0-20) MG/GM URINE CREAT FOR MICRO ALBUMIN 116.5 LIPID PANEL Reviewed date:06/02/2023 03:03:28 PM Interpretation: Performing Lab:Testing performed or reported by [facility], a Service of [address] [address] Tim Watson MD, Brick [employer] [facility]# [id number] Notes/Report: CHOLESTEROL, TOTAL 105 (<200) MG/DL TRIGLYCERIDE 160 (<150) MG/DL HDL CHOL 34 (>39) MG/DL LDL CHOLESTEROL, CALCULATED 39 (0-130) MG/DL NON HDL CHOLESTEROL (CALC) 71 (<160) MG/DL COMPREHENSIVE METABOLIC PANE L Reviewed date:06/02/2023 03:03:20 PM Interpretation: Performing Lab:Testing performed or reported by [facility], a Service of [address] [address] Tim Watson MD, Brick [employer] [facility]# [id number] Notes/Report: GLUCOSE 151 (70-99) MG/DL BUN 15 [...] GFR from serum creatinine, age and sex. Reason For Referral Reason essential tremors- D r. [place] Diagnosis 1 Essential tremor (G2 5.0) Referral Organization [facility] Referring Provider First Name JARAMILLO Referring Provider Last Name [facility] Referring Provider Speciality Internal edicine Referred Provider Specialty Neurology General Notes Referral faxed - Dep t will call patient for scheduling.Janene Latraya 09/27/2023 02:58:10 PM > Referral Priority Routine Reason Evaluation and manag ement - Dr. Haley Diagnosis 1 Arthralgia of tempor omandibular joint, unspecified side (M26.629) Referral Organization [facility] Referring Provider First Name JARAMILLO Referring Provider Last Name [facility] Referring Provider Speciality Internal edicine Referred Provider Specialty Physical Med icine and Rehabilitation General Notes Referral faxed - Dep t will call patient for scheduling.Janene Latraya 09/21/2023 12:07:16 PM > Referral Priority Routine Reason Evaluation and manag ement Juma Cruz Diagnosis 1 Other hammer toe(s) (acquired), right foot (M20.41) Referral Organization [facility] Referring Provider First Name JARAMILLO Referring Provider Last Name [facility] Referring Provider Speciality Internal M edicine Referred Provider Specialty Podiatry General Notes Referral sent to [facility] in [place] - Office will call patient for scheduling.Janene [...] Low back pain (M54.5 ) Referral Organization [facility] Referring Provider First Name ELLA Referring Provider Last Name [facility] Referring Provider Speciality Internal M edicine Referred Provider Specialty Pain Medicin e General Notes Referral sent to [facility] in [place] - Office will call patient for scheduling., Naty Watters 02/21/2024 10:54:41 AM > Referral Priority Routine Medications Medication SIG (Take, Route, Frequency, Duration) Notes Start Date End Date Status Zofran 4 MG as directed Orally for 7 days 07/07/2018 Unknown Fluticasone Propionate 50 MCG/ACT SPRAY TWICE INTO EACH NOSTRIL ONCE A DAY for 30 Unknown True Comfort [place] 32G X 4 MM USE TO INJECT [...] FOR most painful AREA for 30 Active Rpvfpkaf-Disdatuka-II 1 % 4 drops into affected ear [...] TIMES A DAY DIRECTED for 30 Active Cuhmirfl-Ozfxwzogr-MT 1 % 4 drops into affected ear [...] W/U Status Risk Notes Problem Diabetic neuropathy (898381148) Diabetes mellitus due to underlying condition with diabetic neuropathy, unspecified (E08.40) Active confirmed Problem Morbid obesity (disorder) (312953274) Morbid (severe) obesity due to excess calories (E66.01) Active confirmed Problem Anxiety disorder (245561640) Anxiety disorder, unspecified (F41.9) Active confirmed Problem Essential tremor (475992280) Essential tremor (G25.0) Active confirmed Problem Insomnia (660968423) Insomnia, unspecified (G47.00) Active confirmed Problem Obstructive sleep apnea syndrome (91017588) Obstructive sleep apnea (adult) (pediatric) (G47.33) Active confirmed Problem Essential hypertension (54861672) Essential (primary) hypertension (I10) Active confirmed Problem Peripheral vascular disease (508468868) Peripheral vascular disease, unspecified (I73.9) Active confirmed Problem Embolism from thrombosis of vein of lower extremity (150764112) Chronic embolism and thrombosis of unspecified deep veins of unspecified lower extremity (I82.509) Active confirmed Problem Uncomplicated mild persistent asthma (236209106) Mild persistent asthma, uncomplicated (J45.30) Active confirmed Problem Polyp of colon (42290232) Polyp of colon (K63.5) Active confirmed Problem Acquired hammer toe of right foot (6484153422557629) Other hammer toe(s) (acquired), right foot (M20.41) Active confirmed Problem Shoulder joint pain (241310696) Pain in left shoulder (M25.512) Active confirmed Problem Lumbosacral radiculopathy (6788536) Radiculopathy, lumbosacral region (M54.17) Active confirmed Problem Dysphagia (29616681) Dysphagia, unspecified (R13.10) Active confirmed Problem Paresthesia (finding) (96132154) Paresthesia of skin (R20.2) Active confirmed Problem Amputated below knee (985786164) Acquired absence of left leg below knee (Z89.512) Active confirmed Problem Chronic kidney disease stage 3 (disorder) (764858922) Chronic kidney disease, stage 3 unspecified (N18.30) Active confirmed Problem 34313345 Type 2 diabetes mellitus with other specified complication, without long-term current use of insulin (E11.69) Active confirmed Problem Urinary incontinence (918237354) Urinary incontinence, unspecified type (R32) Active confirmed Problem Gastroesophageal reflux disease (033062806) Gastroesophageal reflux disease, unspecified whether esophagitis present (K21.9) Active confirmed Vital Signs Heart Rate 88 /min 04/18/2024 Temperature 97.1 degrees Fahrenheit 04/18/2024 Blood pressure diastolic 74 mm Hg 04/18/2024 Oximetry 91 % 04/18/2024 Height 62.24 in 04/18/2024 Blood pressure systolic 130 mm Hg 04/18/2024 Weight 212.8 lbs 04/18/2024 BMI 38.62 kg/m2 04/18/2024 Encounters Encounter Location Date Provider Diagnosis [facility] [address] [facility] [address] [place] [address] 05/17/2023 ELLA MICHAEL Encounter for genera l [...] Chronic kidney disease, stage 3 unspecified N18.30 [facility] [address] [facility] [address] [place] [address] 08/18/2023 ELLA MICHAEL Radiculopathy, lumbosacral region M54.17 ; Type 2 diabetes mellitus with other specified complication, without long-term current use of insulin E11.69 ; Essential (primary) hypertension I10 ; Anxiety disorder, unspecified F41.9 ; Insomnia, unspecified G47.00 and Left temporomandibular joint disorder, unspecified M26.[address] [place] [address] 09/01/2023 JARAMILLO GUL Otalgia, left ear H9 2.[address] [place] [address] 09/21/2023 JARAMILLO GUL Local infection of t he skin and subcutaneous tissue, unspecified L08.9 ; Left temporomandibular joint disorder, unspecified M26.602 and Essential tremor G25.[address] [place] [address] 10/06/2023 JARAMILLO GUL Left temporomandibul ar joint disorder, unspecified M26.602 and Otalgia, left ear H92.[address] [place] [address] 11/15/2023 JARAMILLO GUL Radiculopathy, lumbosacral region M54.17 ; Diabetes mellitus due to underlying condition with diabetic neuropathy, unspecified E08.40 ; Essential (primary) hypertension I10 and Chronic kidney disease, stage 3 unspecified N18.[address] [place] [address] 12/06/2023 JARAMILLO GUL Mild persistent asth ma, uncomplicated J45.[address] [place] [address] 02/01/2024 JARAMILLO GUL Other conjunctivitis H10.89 ; Left temporomandibular joint disorder, unspecified M26.602 ; Radiculopathy, lumbosacral region M54.17 and Other hammer toe(s) (acquired), right foot M20.[address] [address] 02/21/2024 JARAMILLO GUL Radiculopathy, lumbosacral region M54.17 ; Diabetes mellitus due to underlying condition with diabetic neuropathy, unspecified E08.40 ; Essential (primary) hypertension I10 and Chronic kidney disease, stage 3 unspecified N18.30 [facility] [address] [facility] [address] [place] [address] 02/29/2024 Mitchelldeandra Efraínindia Acute URI J06.9 [facility] [address] [place] [address] 04/18/2024 Mitchelldeandra Efraínindia Diabetes mellitus du e to underlying [...] of micturition R35.0 and Epidermal cyst L72.[address] [place] [address] 04/16/[address] [place] [address] 04/22/[address] [place] [address] 04/28/[address] [place] [address] 05/31/[address] [place] [address] 05/31/[address] [place] [address] 05/31/[address] [place] [address] 05/31/[address] [facility] [place] [address] 06/07/2023 [facility] [address] [facility] [place] [address] 06/10/2023 [facility] [address] [facility] [place] [address] 06/16/2023 [facility] [address] [place] [address] 08/04/2023 [facility] [address] [place] [address] 08/18/2023 [facility] [address] [place] [address] 08/22/2023 [facility] [address] [place] [address] 08/29/2023 [facility] [address] [place] [address] 09/22/2023 [facility] Local infection of t he skin and subcutaneous tissue, unspecified L08.9 [facility] [address] [place] [address] 09/29/2023 [facility] [address] [place] [address] 10/04/2023 [facility] [address] [place] [address] 11/14/2023 [facility] [address] [place] [address] 12/05/2023 [facility] [address] [place] [address] 12/07/2023 [facility] [address] [place] [address] 12/19/[address] [place] [address] 01/02/[address] [place] [address] 01/10/[address] [place] [address] 01/25/[address] [place] [address] 02/02/2024 [facility] Other conjunctivitis H10.[address] [place] [address] 02/07/[address] [place] [address] 02/16/2024 [facility] Diabetes mellitus du e to underlying condition with diabetic neuropathy, unspecified E08.[address] [place] [address] 02/23/[address] [place] [address] 02/28/[address] [place] [address] 03/05/2024 Adolfo Vilchis [address] [place] [address] 04/16/2024 JARAMILLO GU Assessments Encounter Date Diagnosis (ICD Code) Assessment [...] on right medications. She has seen her air brake man in the past 1 year. Foot care [...] cancer screening. She follows up with her professor of kinesiology for breast and pelvic exams. Eye screening. She sees her air brake man regularly. Dental screening. She sees dentist at [...] on right medications. She has seen her air brake man in the past 1 year. Foot care [...] this note under HIPAA compliance and under [place] law mandated for scribe services. Patient aware [...] on right medications. She has seen her air brake man in the past 1 year. Foot care [...] this note under HIPAA compliance and under [place] law mandated for scribe services. Patient aware [...] this note under HIPAA compliance and under [place] law mandated for scribe services. Patient aware [...] this note under HIPAA compliance and under [place] law mandated for scribe services. Patient aware [...] this note under HIPAA compliance and under [place] law mandated for scribe services. Patient aware of service. Verbal consent and written consent taken from the patient. Patient understands and verbalizes understanding of the scribes services and all questions answered regarding scribes services. Patient agrees to use of scribes services. 09/22/2023 Local infection of the skin and subcutaneous tissue, unspecified (ICD-10 - L08.9) 10/06/2023 Left temporomandibular joint disorder, unspecified (ICD-10 - M26.602) Maribell is 63 years old lady with above-mentioned comorbidities is here for follow-up after visit to [facility]. Records not available at this point. She complains of left TMJ pain and discomfort and left ear pain. Plan is as follows Left TMJ pain. She is currently on oxycodone and she also use sjru-rtx-tnxqpwu Tylenol arthritis with no significant relief. We will give her low-dose prednisone on trial basis for 7 days. She has completed physical therapy for TMJ and she has seen dentist for mouth guard. CT scan of the head reviewed with the patient and there were no acute findings. She has appointment with neurologist at [facility] for headaches Left ear pain. She had a couple of courses of antibiotics and there is no improvement. There are no signs of active infection and no need for any more antibiotics. She has an appointment with ENT on October 19 for follow-up. She was advised not to use any Q-tips. 10/06/2023 Otalgia, left ear (ICD-10 - H92.02) Maribell is 63 years old lady with above-mentioned comorbidities is here for follow-up after visit to [facility]. Records not available at this point. She complains of left TMJ pain and discomfort and left ear pain. Plan is as follows Left TMJ pain. She is currently on oxycodone and she also use kydz-nwk-lzypjll Tylenol arthritis with no significant relief. We will give her low-dose prednisone on trial basis for 7 days. She has completed physical therapy for TMJ and she has seen dentist for mouth guard. CT scan of the head reviewed with the patient and there were no acute findings. She has appointment with neurologist at [facility] for headaches Left ear pain. She had a couple of courses of antibiotics and there is no improvement. There are no signs of active infection and no need for any more antibiotics. She has an appointment with ENT on October 19 for follow-up. She was advised not to use any Q-tips. 11/15/2023 Radiculopathy, lumbosacral region (ICD-10 - M54.17) Maribell is a 63-year-old lady with DM2, hypertension, hyperlipidemia, asthma, insomnia and anxiety here for follow up. Plan is as follows: Type II diabetes mellitus. A1c 6.6. Glucose 151. She is on right medications. She has seen her air brake man in the past 1 year. Foot care [...] this note under HIPAA compliance and under [place] law mandated for scribe services. Patient aware of service. Verbal consent and written consent taken from the patient. Patient understands and verbalizes understanding of the scribes services and all questions answered regarding scribes services. Patient agrees to use of scribes services. 11/15/2023 Diabetes mellitus due to underlying condition with diabetic neuropathy, unspecified (ICD-10 - E08.40) Maribell is a 63-year-old lady with DM2, hypertension, hyperlipidemia, asthma, insomnia and anxiety here for follow up. Plan is as follows: Type II diabetes mellitus. A1c 6.6. Glucose 151. She is on right medications. She has seen her air brake man in the past 1 year. Foot care [...] this note under HIPAA compliance and under [place] law mandated for scribe services. Patient aware [...] this note under HIPAA compliance and under [place] law mandated for scribe services. Patient aware [...] was negative and it was sent to [facility] for further evaluation and it was reported [...] this note under HIPAA compliance and under [place] law mandated for scribe services. Patient aware [...] to see a Neurology at this point. Celialorrainedeja. Referred to Dr Cruz at podiatry. Degenerative disc disease/lumbar radiculopathy. She was on oxycodone 30 mg 1 tablet 3 times a day but her recent urine toxicology screen was negative and it was sent to [facility] for further evaluation and it was reported [...] this note under HIPAA compliance and under [place] law mandated for scribe services. Patient aware of service. Verbal consent and written consent taken from the patient. Patient understands and verbalizes understanding of the scribes services and all questions answered regarding scribes services. Patient agrees to use of scribes services. 02/02/2024 Other conjunctivitis (ICD-10 - H10.89) 02/16/2024 Diabetes mellitus due to underlying condition with diabetic neuropathy, unspecified (ICD-10 - E08.40) 02/21/2024 Radiculopathy, lumbosacral region (ICD-10 - M54.17) Maribell is a 63-year-old lady with DM2, hypertension, hyperlipidemia, asthma, insomnia and anxiety here for follow up. Plan is as follows: Type II diabetes mellitus. Hb A1c improve energy 6.1.She is on right medications. She has seen her air brake man in the past 1 year. Foot care [...] because she is on temazepam. Referred to [facility] Dr. Iraheta. Chronic kidney disease [...] this note under HIPAA compliance and under [place] law mandated for scribe services. Patient aware of service. Verbal consent and written consent taken from the patient. Patient understands and verbalizes understanding of the scribes services and all questions answered regarding scribes services. Patient agrees to use of scribes services. 02/21/2024 Diabetes mellitus due to underlying condition with diabetic neuropathy, unspecified (ICD-10 - E08.40) Maribell is a 63-year-old lady with DM2, hypertension, hyperlipidemia, asthma, insomnia and anxiety here for follow up. Plan is as follows: Type II diabetes mellitus. Hb A1c improve energy 6.1.She is on right medications. She has seen her air brake man in the past 1 year. Foot care [...] because she is on temazepam. Referred to [facility] Dr. Iraheta. Chronic kidney disease [...] this note under HIPAA compliance and under [place] law mandated for scribe services. Patient aware [...] afternoon for breakthrough pains. She follows with [facility] Dr. Iraheta. Chronic kidney disease stage 3. -She does not appear to be in volume overload. Advised appropriate hydration. Avoid NSAIDs. She sees Dr. Lakhani. Asthma. -She uses her inhalers as needed. Follows with Dr. Shipley-[facility] Generalized anxiety disorder. -Mood is stable on Lorazepam 3 times a day. She has a psychiatrist and a therapist. GERD/gastroparesis/ dysphagia - Currently she is on omperazole 20m and Reglan 10 MG twice a day. I have increased omperazole to 40mg and advised patient to follow-up with her GI at [place]. She has an appt in May. MUSA: [...] afternoon for breakthrough pains. She follows with [facility] Dr. Iraheta. Chronic kidney disease stage 3. -She does not appear to be in volume overload. Advised appropriate hydration. Avoid NSAIDs. She sees Dr. Lakhani. Asthma. -She uses her inhalers as needed. Follows with Dr. Shipley-[facility] Generalized anxiety disorder. -Mood is stable on Lorazepam 3 times a day. She has a psychiatrist and a therapist. GERD/gastroparesis/ dysphagia - Currently she is on omperazole 20m and Reglan 10 MG twice a day. I have increased omperazole to 40mg and advised patient to follow-up with her GI at [place]. She has an appt in May. MUSA: [...] the patient but was available upon request 02/21/2024 Essential (primary) hypertension (ICD-10 - I10) Maribell is a 63-year-old lady with DM2, hypertension, hyperlipidemia, asthma, insomnia and anxiety here for follow up. Plan is as follows: Type II diabetes mellitus. Hb A1c improve energy 6.1.She is on right medications. She has seen her air brake man in the past 1 year. Foot care [...] because she is on temazepam. Referred to [facility] Dr. Iraheta. Chronic kidney disease [...] this note under HIPAA compliance and under [place] law mandated for scribe services. Patient aware [...] was negative and it was sent to [facility] for further evaluation and it was reported [...] this note under HIPAA compliance and under [place] law mandated for scribe services. Patient aware [...] on right medications. She has seen her air brake man in the past 1 year. Foot care [...] this note under HIPAA compliance and under [place] law mandated for scribe services. Patient aware [...] this note under HIPAA compliance and under [place] law mandated for scribe services. Patient aware [...] on right medications. She has seen her air brake man in the past 1 year. Foot care [...] this note under HIPAA compliance and under [place] law mandated for scribe services. Patient aware [...] on right medications. She has seen her air brake man in the past 1 year. Foot care [...] cancer screening. She follows up with her professor of kinesiology for breast and pelvic exams. Eye screening. She sees her air brake man regularly. Dental screening. She sees dentist at [...] on right medications. She has seen her air brake man in the past 1 year. Foot care [...] cancer screening. She follows up with her professor of kinesiology for breast and pelvic exams. Eye screening. She sees her air brake man regularly. Dental screening. She sees dentist at [...] on right medications. She has seen her air brake man in the past 1 year. Foot care [...] this note under HIPAA compliance and under [place] law mandated for scribe services. Patient aware [...] on right medications. She has seen her air brake man in the past 1 year. Foot care [...] this note under HIPAA compliance and under [place] law mandated for scribe services. Patient aware [...] was negative and it was sent to [facility] for further evaluation and it was reported [...] this note under HIPAA compliance and under [place] law mandated for scribe services. Patient aware [...] on right medications. She has seen her air brake man in the past 1 year. Foot care [...] because she is on temazepam. Referred to [facility] Dr. Iraheta. Chronic kidney disease [...] this note under HIPAA compliance and under [place] law mandated for scribe services. Patient aware of service. Verbal consent and written consent taken from the patient. Patient understands and verbalizes understanding of the scribes services and all questions answered regarding scribes services. Patient agrees to use of scribes services. 04/18/2024 Chronic embolism and thrombosis of unspecified [...] afternoon for breakthrough pains. She follows with [facility] Dr. Iraheta. Chronic kidney disease stage 3. -She does not appear to be in volume overload. Advised appropriate hydration. Avoid NSAIDs. She sees Dr. Lakhani. Asthma. -She uses her inhalers as needed. [place]s with [place]. [place] Generalized anxiety disorder. -Mood is stable on Lorazepam 3 times a day. She has a psychiatrist and a therapist. GERD/gastroparesis/ dysphagia - Currently she is on omperazole 20m and Reglan 10 MG twice a day. I have increased omperazole to 40mg and advised patient to follow-up with her GI at [place]. She has an appt in May. MUSA: [...] afternoon for breakthrough pains. She follows with [facility] Dr. Iraheta. Chronic kidney disease stage 3. -She does not appear to be in volume overload. Advised appropriate hydration. Avoid NSAIDs. She sees Dr. Lakhani. Asthma. -She uses her inhalers as needed. Follows with Dr. Rea Generalized anxiety disorder. -Mood is stable on Lorazepam 3 times a day. She has a psychiatrist and a therapist. GERD/gastroparesis/ dysphagia - Currently she is on omperazole 20m and Reglan 10 MG twice a day. I have increased omperazole to 40mg and advised patient to follow-up with her GI at [place]. She has an appt in May. MUSA: [...] the patient but was available upon request 08/18/2023 Insomnia, unspecified (ICD-10 - G47.00) Maribell is a 62-year-old lady with DM2, hypertension, hyperlipidemia, asthma, insomnia and anxiety here for follow up. Plan is as follows: Type II diabetes mellitus. A1c 6.3. Fasting sugars 151. She is on right medications. She has seen her air brake man in the past 1 year. Foot care [...] this note under HIPAA compliance and under [place] law mandated for scribe services. Patient aware [...] on right medications. She has seen her air brake man in the past 1 year. Foot care [...] cancer screening. She follows up with her professor of kinesiology for breast and pelvic exams. Eye screening. She sees her air brake man regularly. Dental screening. She sees dentist at [...] on right medications. She has seen her air brake man in the past 1 year. Foot care [...] cancer screening. She follows up with her professor of kinesiology for breast and pelvic exams. Eye screening. She sees her air brake man regularly. Dental screening. She sees dentist at [...] on right medications. She has seen her air brake man in the past 1 year. Foot care [...] this note under HIPAA compliance and under [place] law mandated for scribe services. Patient aware [...] afternoon for breakthrough pains. She follows with [facility] Dr. Iraheta. Chronic kidney disease stage 3. -She does not appear to be in volume overload. Advised appropriate hydration. Avoid NSAIDs. She sees Dr. Lakhani. Asthma. -She uses her inhalers as needed. Follows with Dr. Shipley-[facility] Generalized anxiety disorder. -Mood is stable on Lorazepam 3 times a day. She has a psychiatrist and a therapist. GERD/gastroparesis/ dysphagia - Currently she is on omperazole 20m and Reglan 10 MG twice a day. I have increased omperazole to 40mg and advised patient to follow-up with her GI at [place]. She has an appt in May. MUSA: [...] the patient but was available upon request 05/17/2023 Chronic embolism and thrombosis of unspecified deep veins of unspecified lower extremity (ICD-10 - I82.509) Maribell is a 62-year-old lady with DM2, hypertension, hyperlipidemia, asthma, insomnia and anxiety here for annual physical. Plan is as follows: Type II diabetes mellitus. Her blood sugars are within reasonable limits. She is on right medications. She has seen her air brake man in the past 1 year. Foot care [...] cancer screening. She follows up with her professor of kinesiology for breast and pelvic exams. Eye screening. She sees her air brake man regularly. Dental screening. She sees dentist at least twice a year. Colon cancer screening. She is up to date on her colonoscopy. Immunizations. She is up to date on her COVID vaccinations. Blood work reviewed with patient and questions answered. Screening blood work before next appointment General health concerns discussed with patient. 04/18/2024 Anxiety disorder, unspecified (ICD-10 - F41.9) [...] afternoon for breakthrough pains. She follows with [facility] Dr. Iraheta. Chronic kidney disease stage 3. -She does not appear to be in volume overload. Advised appropriate hydration. Avoid NSAIDs. She sees Dr. Lakhani. Asthma. -She uses her inhalers as needed. Follows with Dr. Shipley-[facility] Generalized anxiety disorder. -Mood is stable on Lorazepam 3 times a day. She has a psychiatrist and a therapist. GERD/gastroparesis/ dysphagia - Currently she is on omperazole 20m and Reglan 10 MG twice a day. I have increased omperazole to 40mg and advised patient to follow-up with her GI at [place]. She has an appt in May. MUSA: [...] the patient but was available upon request 05/17/2023 Chronic kidney disease, stage 3 unspecified (ICD-10 - N18.30) Maribell is a 62-year-old lady with DM2, hypertension, hyperlipidemia, asthma, insomnia and anxiety here for annual physical. Plan is as follows: Type II diabetes mellitus. Her blood sugars are within reasonable limits. She is on right medications. She has seen her air brake man in the past 1 year. Foot care [...] cancer screening. She follows up with her professor of kinesiology for breast and pelvic exams. Eye screening. She sees her air brake man regularly. Dental screening. She sees dentist at least twice a year. Colon cancer screening. She is up to date on her colonoscopy. Immunizations. She is up to date on her COVID vaccinations. Blood work reviewed with patient and questions answered. Screening blood work before next appointment General health concerns discussed with patient. 04/18/2024 [...] afternoon for breakthrough pains. She follows with [facility] Dr. Iraheta. Chronic kidney disease stage 3. -She does not appear to be in volume overload. Advised appropriate hydration. Avoid NSAIDs. She sees Dr. Lakhani. Asthma. -She uses her inhalers as needed. Follows with Dr. Rea Generalized anxiety disorder. -Mood is stable on Lorazepam 3 times a day. She has a psychiatrist and a therapist. GERD/gastroparesis/ dysphagia - Currently she is on omperazole 20m and Reglan 10 MG twice a day. I have increased omperazole to 40mg and advised patient to follow-up with her GI at [place]. She has an appt in May. MUSA: [...] afternoon for breakthrough pains. She follows with [facility] Dr. Iraheta. Chronic kidney disease stage 3. -She does not appear to be in volume overload. Advised appropriate hydration. Avoid NSAIDs. She sees Dr. Lakhani. Asthma. -She uses her inhalers as needed. Follows with Dr. Rea Generalized anxiety disorder. -Mood is stable on Lorazepam 3 times a day. She has a psychiatrist and a therapist. GERD/gastroparesis/ dysphagia - Currently she is on omperazole 20m and Reglan 10 MG twice a day. I have increased omperazole to 40mg and advised patient to follow-up with her GI at [place]. She has an appt in May. MUSA: [...] afternoon for breakthrough pains. She follows with [facility] Dr. Iraheta. Chronic kidney disease stage 3. -She does not appear to be in volume overload. Advised appropriate hydration. Avoid NSAIDs. She sees Dr. Lakhani. Asthma. -She uses her inhalers as needed. Follows with Dr. Shipley-[facility] Generalized anxiety disorder. -Mood is stable on Lorazepam 3 times a day. She has a psychiatrist and a therapist. GERD/gastroparesis/ dysphagia - Currently she is on omperazole 20m and Reglan 10 MG twice a day. I have increased omperazole to 40mg and advised patient to follow-up with her GI at [place]. She has an appt in May. MUSA: [...] afternoon for breakthrough pains. She follows with [facility] Dr. Iraheta. Chronic kidney disease stage 3. -She does not appear to be in volume overload. Advised appropriate hydration. Avoid NSAIDs. She sees Dr. Lakhani. Asthma. -She uses her inhalers as needed. Follows with Dr. Shipley-[facility] Generalized anxiety disorder. -Mood is stable on Lorazepam 3 times a day. She has a psychiatrist and a therapist. GERD/gastroparesis/ dysphagia - Currently she is on omperazole 20m and Reglan 10 MG twice a day. I have increased omperazole to 40mg and advised patient to follow-up with her GI at [place]. She has an appt in May. MUSA: [...] afternoon for breakthrough pains. She follows with [facility] Dr. Iraheta. Chronic kidney disease stage 3. -She does not appear to be in volume overload. Advised appropriate hydration. Avoid NSAIDs. She sees Dr. Lakahni. Asthma. -She uses her inhalers as needed. Follows with Dr. Shipley-[facility] Generalized anxiety disorder. -Mood is stable on Lorazepam 3 times a day. She has a psychiatrist and a therapist. GERD/gastroparesis/ dysphagia - Currently she is on omperazole 20m and Reglan 10 MG twice a day. I have increased omperazole to 40mg and advised patient to follow-up with her GI at [place]. She has an appt in May. MUSA: [...] afternoon for breakthrough pains. She follows with [facility] Dr. Iraheta. Chronic kidney disease stage 3. -She does not appear to be in volume overload. Advised appropriate hydration. Avoid NSAIDs. She sees Dr. Lakhani. Asthma. -She uses her inhalers as needed. Follows with Dr. Shipley-[facility] Generalized anxiety disorder. -Mood is stable on Lorazepam 3 times a day. She has a psychiatrist and a therapist. GERD/gastroparesis/ dysphagia - Currently she is on omperazole 20m and Reglan 10 MG twice a day. I have increased omperazole to 40mg and advised patient to follow-up with her GI at [place]. She has an appt in May. MUSA: [...] afternoon for breakthrough pains. She follows with [facility] Dr. Iraheta. Chronic kidney disease stage 3. -She does not appear to be in volume overload. Advised appropriate hydration. Avoid NSAIDs. She sees Dr. Lakhani. Asthma. -She uses her inhalers as needed. Follows with Dr. Shipley-[facility] Generalized anxiety disorder. -Mood is stable on Lorazepam 3 times a day. She has a psychiatrist and a therapist. GERD/gastroparesis/ dysphagia - Currently she is on omperazole 20m and Reglan 10 MG twice a day. I have increased omperazole to 40mg and advised patient to follow-up with her GI at [place]. She has an appt in May. MUSA: [...] was available upon request Plan Of Treatment Pending Test Test Name Order Date Urinalysis, Routine 07/04/2020 Urine toxicology 11/25/2017 BASIC METABOLIC PANEL 07/04/2020 HEMOGLOBIN A1C 07/04/2020 LIPID PANEL 07/04/2020 PROTIME PROFILE 12/18/2018 Hemoglobin A1C 04/18/2018 Hemoglobin A1C 01/20/2018 UA W/REFLEX MICROSCOPIC & CULTURE 2022 UA W/REFLEX MICROSCOPIC & CULTURE 2022 Albumin/Creatinine Ratio,[id number] Lipid Panel-[id number] 04/18/2024 Comp. Metabolic Panel [id number] 2023 Next Appt Details Provider Name:ELLA MICHAEL , 05/23/2024 09:30:00 AM, [address] [place] [address] [address], [place], [id number], Insurance Providers Payer Name Payer Address Payer Phone Subscriber Number Group Number Insured Name Patient Relationship to Insured Coverage Start Date Coverage End Date [facility] [address] [place] [address] [id number] MARIBELL TAYLOR Self - patient is the insured Medical (General) History Medical History History ICD Code hypertension, benign hyperlipidemia IDDM T 2, [facility] Urinary incontinence and she sees Dr. England at [place] Left shoulder pain and she sees Dr. Alida villa and she is also seen Dr. Diaz Asthma and she sees Pul at [facility] Generalized anxiety disorder and she is seen by a psychiatrist and she goes to [facility] management and has seen Dr. Montiel at [facility] in past Peripheral arterial disease and status post amputation below knee joint currently on Coumadin and goes to Coumadin clinic Lumbar radiculopathy on oxycodone 30 mg 3 times a day DVT leg LE sleep apnea [place] [facility] [place] leg amputation below knee joint Chronic kidney disease stage 3, Dr. Janis smalls Personal history of COVID-19 GI- [facility] Surgical History Surgery Date(Month/Year) rotator cuff tear repair September 2017 wrist surgery below the knee amputation 07 left side for Blood clots 2/2 to OCP and pt was smoking rt toes amputation 2004 right wrist synovial cyst resection, Dr. Henriquez 2021 right carpal tunnel decompression, Dr. Flores hadley 2021 Hospitalization History Reason Date(Month/Year)
[2024-04-20 10:45] VITALS: BP 117/64; PULSE 84; O2SAT 97; BMI 37.6
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
== END 2024-04-20 12:29 | disposition home or self-care (01) ==
PROVIDERS: PCP Hospitalist; Visit Provider Nurse Practitioner Family
DX: R51.9 Headache, unspecified (principal); M26.622 Arthralgia of left temporomandibular joint; M54.2 Cervicalgia
CPT/HCPCS: 99204

== ENCOUNTER → 2024-04-20 10:22 | Outpatient (BNVA) | payer OTHER, SELFPAY | PROVIDERS: PCP Hospitalist; Visit Provider Nurse Practitioner Family | DX: R51.9 Headache, unspecified (principal); M54.2 Cervicalgia; M26.622 Arthralgia of left temporomandibular joint | CPT/HCPCS: 99202 ==

== ENCOUNTER 2024-04-24 11:28 | Outpatient (REF) | payer OTHER, SELFPAY ==
--- OUTSIDE RECORDS SUMMARY | 2024-04-24 11:46 | XMS_ITS ---
Author Organization [facility] Address [address] [place] [id number] Care Team Providers Care Sports Cartoonist Name Role Phone ELLA MICHAEL Primary Care Provider REASON FOR VISIT [facility] request Encounters Encounter Location Date Provider Diagnosis [facility] [address] [phone] 04/16/2024 ELLA MICHAEL Plan Of Treatment Next Appt Details Provider Name:ELLA MICHAEL , 05/23/2024 09:30:00 AM, [address] [address], [place], [id number], Progress Notes * ZOIE SWEENEY HDOB: 3 (63 yo F)Acc No.[id number]:04/16/2024 Patient:?ZOIE SWEENEY :1960???Age:63 Y???Sex:Female Address:[address] [place] [id number] * true * Date:? Generated for Jaylyni daniel/Nataliia/eTransmitting on:?04/24/2024 11:45 AM EST
--- OUTSIDE RECORDS SUMMARY | 2024-04-24 11:46 | XMS_ITS | Patient Health Record ---
Author Organization [facility] Address [address] [place] [address] Care Team Providers Care Catastrophe Claims Supervisor Name Role Phone FERNANDA JARAMILLO Primary Care Provider Adolfo Vilchis Unavailable [phone] Allergies Allergen (clinical drug ingredient) Drug/Non Drug [...] kathleen Results Component Value Reference Range Notes COMPREHENSIVE METABOLIC PANE L Reviewed date:06/02/2023 03:03:20 PM Interpretation: Performing Lab:Testing performed or reported by [facility], a Service of [facility], [address] [place] [address] Tim Watson MD, [employer] [facility]# [id number] Notes/Report: GLUCOSE 151 (70-99) MG/DL BUN 15 [...] GFR from serum creatinine, age and sex. LIPID PANEL Reviewed date:06/02/2023 03:03:28 PM Interpretation: Performing Lab:Testing performed or reported by [facility], [place] [address] Tim Watson MD, [employer] [facility]# [id number] Notes/Report: CHOLESTEROL, TOTAL 105 (<200) MG/DL TRIGLYCERIDE 160 (<150) MG/DL HDL CHOL 34 (>39) MG/DL LDL CHOLESTEROL, CALCULATED 39 (0-130) MG/DL NON HDL CHOLESTEROL (CALC) 71 (<160) MG/DL MICROALBUMIN, URINE Reviewed date:05/19/2023 04:11:12 PM Interpretation: Performing Lab:Testing performed or reported by [facility], [place] [address] Tim Watson MD, [employer] [facility]# [id number] Notes/Report: MICRO-ALBUMIN <12.0 (<20) MG/L The urine microalbumin test is designed to monitor renal function. When screening for Bence Hinds proteinuria, urine electrophoresis is recommended. MALB/CREAT RATIO Unable to calculate (0-20) MG/GM URINE CREAT FOR MICRO ALBUMIN 116.5 HEMOGLOBIN A1C WITH EST GLUC OSE Reviewed date:06/02/2023 03:03:34 PM Interpretation: Performing Lab:Testing performed or reported by [facility], a Service of [address] [address] Tim Watson MD, [employer] [facility]# [id number] Notes/Report: HEMOGLOBIN A1C 6.3 (4.0-5.6) % MONITORING: In known diabetic patients, hemoglobin A1c targets should be discussed with health care provider. DIAGNOSTIC USE: The [place] Diabetes Association (ADA) and the World Health [...] 43, Supplement 1 ESTIMATED AVERAGE GLUCOSE 134 Hemoglobin [id number] Reviewed date:02/20/2024 08:28:37 AM Interpretation: Performing Lab:[facility], [address] [place] [address], Phone - [phone], Director - Mohsen Notes/Report: Hemoglobin A1c 6.1 4.8-5.6 % . Prediabetes: 5.7 - 6.4 Diabetes: >6.4 Glycemic control for adults with diabetes: <7.0 Acetaminophen, MS, Ur RFX Reviewed date:11/21/2023 08:01:23 AM Interpretation: Performing Lab:[facility], [address] [place] [address], Phone - [phone], Director - Sheri Notes/Report: ANALGESICS/NSAIDS +POSITIVE+ Acetaminophen PRESENT Hemoglobin [id number] Reviewed date:11/15/2023 07:52:21 AM Interpretation: Performing Lab:[facility], [address] [place] [address], Phone - [phone], Director - Mohsen Notes/Report: Hemoglobin A1c 6.6 4.8-5.6 % . Prediabetes: 5.7 - 6.4 Diabetes: >6.4 Glycemic control for adults with diabetes: <7.0 ToxAssure Flex 23, Urine-010 379 Reviewed date:11/23/2023 09:11:12 AM Interpretation: Performing Lab:[facility], [address] [place] [address], Phone - [phone], Director - Sheri Notes/Report: Summary Report FINAL [...] analysis. NICOTINE METABOLITE Negative Cotinine Not Detected Reason For Referral Reason essential tremors- D r. [place] Diagnosis 1 Essential tremor (G2 5.0) Referral Organization [facility] Referring Provider First Name [facility] Referring Provider Last Name [facility] Referring Provider Speciality [facility] Referred Provider Specialty Neurology General Notes Referral faxed - Dep t will call patient for scheduling.Janene Latraya 09/27/2023 02:58:10 PM > Referral Priority Routine Reason Evaluation and manag ement - Dr. Haley Diagnosis 1 Arthralgia of tempor omandibular joint, unspecified side (M26.629) Referral Organization [facility] Referring Provider First Name [facility] Referring Provider Last Name [facility] Referring Provider Speciality [facility] Referred Provider Specialty Physical Med icine and Rehabilitation General Notes Referral faxed - Dep t will call patient for scheduling.Janene Latraya 09/21/2023 12:07:16 PM > Referral Priority Routine Reason Evaluation and manag ement Juma Cruz Diagnosis 1 Other hammer toe(s) (acquired), right foot (M20.41) Referral Organization [facility] Referring Provider First Name JARAMILLO Referring Provider Last Name [facility] Referring Provider Speciality Internal [facility] edicine Referred Provider Specialty Podiatry General Notes Referral sent to [facility] in [place] - Office will call patient for scheduling.Janene [...] Low back pain (M54.5 ) Referral Organization [facility] Referring Provider First Name ELLA Referring Provider Last Name [facility] Referring Provider Speciality Internal [facility] edicine Referred Provider Specialty Pain Medicin e General Notes Referral sent to [facility] in [place] - Office will call patient for scheduling., Naty Watters 02/21/2024 10:54:41 AM > Referral Priority Routine Medications Medication SIG (Take, Route, Frequency, Duration) Notes Start Date End Date Status Zofran 4 MG as directed Orally for 7 days 07/07/2018 Unknown Fluticasone Propionate 50 MCG/ACT SPRAY TWICE INTO EACH NOSTRIL ONCE A DAY for 30 Unknown True Comfort Pen [place] 32G X 4 MM USE TO INJECT [...] FOR most painful AREA for 30 Active Lzlcystm-Tsnqudakm-RF 1 % 4 drops into affected ear [...] TIMES A DAY DIRECTED for 30 Active Ajrdwywo-Xznidtrix-KZ 1 % 4 drops into affected ear [...] W/U Status Risk Notes Problem Diabetic neuropathy (249865062) Diabetes mellitus due to underlying condition with diabetic neuropathy, unspecified (E08.40) Active confirmed Problem Morbid obesity (disorder) (179501398) Morbid (severe) obesity due to excess calories (E66.01) Active confirmed Problem Anxiety disorder (730901175) Anxiety disorder, unspecified (F41.9) Active confirmed Problem Essential tremor (293175068) Essential tremor (G25.0) Active confirmed Problem Insomnia (647756772) Insomnia, unspecified (G47.00) Active confirmed Problem Obstructive sleep apnea syndrome (34656709) Obstructive sleep apnea (adult) (pediatric) (G47.33) Active confirmed Problem Essential hypertension (80202969) Essential (primary) hypertension (I10) Active confirmed Problem Peripheral vascular disease (426153225) Peripheral vascular disease, unspecified (I73.9) Active confirmed Problem Embolism from thrombosis of vein of lower extremity (400318166) Chronic embolism and thrombosis of unspecified deep veins of unspecified lower extremity (I82.509) Active confirmed Problem Uncomplicated mild persistent asthma (128504077) Mild persistent asthma, uncomplicated (J45.30) Active confirmed Problem Polyp of colon (53682524) Polyp of colon (K63.5) Active confirmed Problem Acquired hammer toe of right foot (5097994132857924) Other hammer toe(s) (acquired), right foot (M20.41) Active confirmed Problem Shoulder joint pain (574647310) Pain in left shoulder (M25.512) Active confirmed Problem Lumbosacral radiculopathy (2171933) Radiculopathy, lumbosacral region (M54.17) Active confirmed Problem Dysphagia (30324185) Dysphagia, unspecified (R13.10) Active confirmed Problem Paresthesia (finding) (14149968) Paresthesia of skin (R20.2) Active confirmed Problem Amputated below knee (464803576) Acquired absence of left leg below knee (Z89.512) Active confirmed Problem Chronic kidney disease stage 3 (disorder) (054124727) Chronic kidney disease, stage 3 unspecified (N18.30) Active confirmed Problem 60759629 Type 2 diabetes mellitus with other specified complication, without long-term current use of insulin (E11.69) Active confirmed Problem Urinary incontinence (513410508) Urinary incontinence, unspecified type (R32) Active confirmed Problem Gastroesophageal reflux disease (228681163) Gastroesophageal reflux disease, unspecified whether esophagitis present (K21.9) Active confirmed Vital Signs Heart Rate 88 /min 04/18/2024 Temperature 97.1 degrees Fahrenheit 04/18/2024 Oximetry 91 % 04/18/2024 Blood pressure diastolic 74 mm Hg 04/18/2024 Height 62.24 in 04/18/2024 Blood pressure systolic 130 mm Hg 04/18/2024 Weight 212.8 lbs 04/18/2024 BMI 38.62 kg/m2 04/18/2024 Encounters Encounter Location Date Provider Diagnosis [facility] [address] [place] [address] 05/17/2023 ELLA MICHAEL Encounter for genera l [...] Chronic kidney disease, stage 3 unspecified N18.30 [facility] [address] [place] [address] 08/18/2023 ELLA MICHAEL Radiculopathy, lumbosacral region M54.17 ; Type 2 diabetes mellitus with other specified complication, without long-term current use of insulin E11.69 ; Essential (primary) hypertension I10 ; Anxiety disorder, unspecified F41.9 ; Insomnia, unspecified G47.00 and Left temporomandibular joint disorder, unspecified M26.[address] [place] [address] 09/01/2023 JARAMILLO GUL Otalgia, left ear H9 2.[address] [place] [address] 09/21/2023 JARAMILLO GUL Local infection of t he skin and subcutaneous tissue, unspecified L08.9 ; Left temporomandibular joint disorder, unspecified M26.602 and Essential tremor G25.[address] [place] [address] 10/06/2023 JARAMILLO GUL Left temporomandibul ar joint disorder, unspecified M26.602 and Otalgia, left ear H92.[address] [place] [address] 11/15/2023 JARAMILLO GUL Radiculopathy, lumbosacral region M54.17 ; Diabetes mellitus due to underlying condition with diabetic neuropathy, unspecified E08.40 ; Essential (primary) hypertension I10 and Chronic kidney disease, stage 3 unspecified N18.[address] [place] [address] 12/06/2023 JARAMILLO GUL Mild persistent asth ma, uncomplicated J45.[address] [place] [address] 02/01/2024 JARAMILLO GUL Other conjunctivitis H10.89 ; Left temporomandibular joint disorder, unspecified M26.602 ; Radiculopathy, lumbosacral region M54.17 and Other hammer toe(s) (acquired), right foot M20.[address] [address] 02/21/2024 JARAMILLO GUL Radiculopathy, lumbosacral region M54.17 ; Diabetes mellitus due to underlying condition with diabetic neuropathy, unspecified E08.40 ; Essential (primary) hypertension I10 and Chronic kidney disease, stage 3 unspecified N18.30 [facility] [address] [place] [address] 02/29/2024 Mitchelldeandra Efraínindia Acute URI J06.9 [facility] [address] [place] [address] 04/18/2024 Mitchellkarolynnas Kennyindia Diabetes mellitus du e to underlying condition [...] of micturition R35.0 and Epidermal cyst L72.[address] [place] [address] 04/28/[address] [place] [address] 05/31/[address] [place] [address] 05/31/[address] [place] [address] 05/31/[address] [place] [address] 05/31/[address] [place] [address] 06/07/[address] [place] [address] 06/10/[address] [facility] [place] [address] 06/16/2023 JARAMILLO L [facility] [address] [facility] [address] 08/04/2023 [facility] [address] [facility] [place] [address] 08/18/2023 [facility] [address] [facility] [place] [address] 08/22/2023 [facility] [address] [place] [address] 08/29/2023 [facility] [address] [facility] [place] [address] 09/22/2023 [facility] Local infection of t he skin and subcutaneous tissue, unspecified L08.9 [facility] [address] [facility] [place] [address] 09/29/2023 [facility] [address] [place] [address] 10/04/2023 [facility] [address] [facility] [place] [address] 11/14/2023 [facility] [address] [place] [address] 12/05/2023 [facility] [address] [facility] [address] 12/07/2023 [facility] [address] [place] [address] 12/19/2023 [facility] [address] [facility] [place] [address] 01/02/2024 [facility] [address] [place] [address] 01/10/[address] [place] [address] 01/25/[address] [place] [address] 02/02/2024 JARAMILLO JAZMIN Other conjunctivitis H10.[address] [place] [address] 02/07/[address] [place] [address] 02/16/2024 JARAMILLO [facility] Diabetes mellitus du e to underlying condition with diabetic neuropathy, unspecified E08.[address] [place] [address] 02/23/[address] [place] [address] 02/28/[address] [place] [address] 03/05/2024 Adolfo Vilchis [address] [place] [address] 04/16/[address] [place] [address] 04/16/2024 JARAMILLO FERNANDA Assessments Encounter Date Diagnosis (ICD Code) Assessment Notes Treatment Notes Treatment Clinical Notes Section Notes 02/01/2024 Other conjunctivitis (ICD-10 - H10.89) Maribell [...] was negative and it was sent to [facility] for further evaluation and it was reported [...] this note under HIPAA compliance and under [place] law mandated for scribe services. Patient aware [...] was negative and it was sent to [facility] for further evaluation and it was reported [...] this note under HIPAA compliance and under [place] law mandated for scribe services. Patient aware [...] on right medications. She has seen her hotel maintenance technician in the past 1 year. Foot care [...] because she is on temazepam. Referred to [facility] Dr. Iraheta. Chronic kidney disease [...] this note under HIPAA compliance and under [place] law mandated for scribe services. Patient aware of service. Verbal consent and written consent taken from the patient. Patient understands and verbalizes understanding of the scribes services and all questions answered regarding scribes services. Patient agrees to use of scribes services. 05/17/2023 Encounter for general adult medical examination without abnormal findings (ICD-10 - Z00.00) Maribell is a 62-year-old lady with DM2, hypertension, hyperlipidemia, asthma, insomnia and anxiety here for annual physical. Plan is as follows: Type II diabetes mellitus. Her blood sugars are within reasonable limits. She is on right medications. She has seen her hotel maintenance technician in the past 1 year. Foot care [...] cancer screening. She follows up with her platform builder for breast and pelvic exams. Eye screening. She sees her hotel maintenance technician regularly. Dental screening. She sees dentist at [...] on right medications. She has seen her hotel maintenance technician in the past 1 year. Foot care [...] this note under HIPAA compliance and under [place] law mandated for scribe services. Patient aware [...] on right medications. She has seen her hotel maintenance technician in the past 1 year. Foot care [...] this note under HIPAA compliance and under [place] law mandated for scribe services. Patient aware [...] this note under HIPAA compliance and under [place] law mandated for scribe services. Patient aware [...] this note under HIPAA compliance and under [place] law mandated for scribe services. Patient aware [...] this note under HIPAA compliance and under [place] law mandated for scribe services. Patient aware [...] is here for follow-up after visit to [facility]. Records not available at this point. She complains of left TMJ pain and discomfort and left ear pain. Plan is as follows Left TMJ pain. She is currently on oxycodone and she also use kxmr-chd-zdszzwc Tylenol arthritis with no significant relief. We will give her low-dose prednisone on trial basis for 7 days. She has completed physical therapy for TMJ and she has seen dentist for mouth guard. CT scan of the head reviewed with the patient and there were no acute findings. She has appointment with neurologist at [facility] for headaches Left ear pain. She had [...] is here for follow-up after visit to [facility]. Records not available at this point. She complains of left TMJ pain and discomfort and left ear pain. Plan is as follows Left TMJ pain. She is currently on oxycodone and she also use plxi-zmj-fhdezip Tylenol arthritis with no significant relief. We will give her low-dose prednisone on trial basis for 7 days. She has completed physical therapy for TMJ and she has seen dentist for mouth guard. CT scan of the head reviewed with the patient and there were no acute findings. She has appointment with neurologist at [facility] for headaches Left ear pain. She had [...] on right medications. She has seen her hotel maintenance technician in the past 1 year. Foot care [...] this note under HIPAA compliance and under [place] law mandated for scribe services. Patient aware [...] on right medications. She has seen her hotel maintenance technician in the past 1 year. Foot care [...] this note under HIPAA compliance and under [place] law mandated for scribe services. Patient aware [...] this note under HIPAA compliance and under [place] law mandated for scribe services. Patient aware [...] with diabetic neuropathy, unspecified (ICD-10 - E08.40) aMribell is a 63-year-old lady with DM2, [...] afternoon for breakthrough pains. She follows with [facility] Dr. Iraheta. Chronic kidney disease stage 3. -She does not appear to be in volume overload. Advised appropriate hydration. Avoid NSAIDs. She sees Dr. Lakhani. Asthma. -She uses her inhalers as needed. Follows with Dr. [facility] Generalized anxiety disorder. -Mood is stable on Lorazepam 3 times a day. She has a psychiatrist and a therapist. GERD/gastroparesis/ dysphagia - Currently she is on omperazole 20m and Reglan 10 MG twice a day. I have increased omperazole to 40mg and advised patient to follow-up with her GI at [facility]. She has an appt in May. MUSA: [...] patient but was available upon request 02/21/2024 Radiculopathy, lumbosacral region (ICD-10 - M54.17) Maribell is a 63-year-old lady with DM2, hypertension, hyperlipidemia, asthma, insomnia and anxiety here for follow up. Plan is as follows: Type II diabetes mellitus. Hb A1c improve energy 6.1.She is on right medications. She has seen her hotel maintenance technician in the past 1 year. Foot care [...] because she is on temazepam. Referred to [facility] Dr. Iraheta. Chronic kidney disease [...] this note under HIPAA compliance and under [place] law mandated for scribe services. Patient aware [...] afternoon for breakthrough pains. She follows with [facility] Dr. Iraheta. Chronic kidney disease stage 3. -She does not appear to be in volume overload. Advised appropriate hydration. Avoid NSAIDs. She sees Dr. Lakhani. Asthma. -She uses her inhalers as needed. Follows with Dr. [facility] Generalized anxiety disorder. -Mood is stable on Lorazepam 3 times a day. She has a psychiatrist and a therapist. GERD/gastroparesis/ dysphagia - Currently she is on omperazole 20m and Reglan 10 MG twice a day. I have increased omperazole to 40mg and advised patient to follow-up with her GI at [facility]. She has an appt in May. MUSA: [...] the patient but was available upon request 11/15/2023 Essential (primary) hypertension (ICD-10 - I10) Maribell is a 63-year-old lady with DM2, hypertension, hyperlipidemia, asthma, insomnia and anxiety here for follow up. Plan is as follows: Type II diabetes mellitus. A1c 6.6. Glucose 151. She is on right medications. She has seen her hotel maintenance technician in the past 1 year. Foot care [...] this note under HIPAA compliance and under [place] law mandated for scribe services. Patient aware [...] this note under HIPAA compliance and under [place] law mandated for scribe services. Patient aware [...] on right medications. She has seen her hotel maintenance technician in the past 1 year. Foot care [...] this note under HIPAA compliance and under [place] law mandated for scribe services. Patient aware [...] on right medications. She has seen her hotel maintenance technician in the past 1 year. Foot care [...] cancer screening. She follows up with her platform builder for breast and pelvic exams. Eye screening. She sees her hotel maintenance technician regularly. Dental screening. She sees dentist at least twice a year. Colon cancer screening. She is up to date on her colonoscopy. Immunizations. She is up to date on her COVID vaccinations. Blood work reviewed with patient and questions answered. Screening blood work before next appointment General health concerns discussed with patient. 02/21/2024 Essential (primary) hypertension (ICD-10 - I10) Maribell is a 63-year-old lady with DM2, hypertension, hyperlipidemia, asthma, insomnia and anxiety here for follow up. Plan is as follows: Type II diabetes mellitus. Hb A1c improve energy 6.1.She is on right medications. She has seen her hotel maintenance technician in the past 1 year. Foot care [...] because she is on temazepam. Referred to [facility] Dr. Iraheta. Chronic kidney disease [...] this note under HIPAA compliance and under [place] law mandated for scribe services. Patient aware [...] was negative and it was sent to [facility] for further evaluation and it was reported [...] this note under HIPAA compliance and under [place] law mandated for scribe services. Patient aware [...] was negative and it was sent to [facility] for further evaluation and it was reported [...] this note under HIPAA compliance and under [place] law mandated for scribe services. Patient aware of service. Verbal consent and written consent taken from the patient. Patient understands and verbalizes understanding of the scribes services and all questions answered regarding scribes services. Patient agrees to use of scribes services. 05/17/2023 Essential (primary) hypertension (ICD-10 - I10) Maribell is a 62-year-old lady with DM2, hypertension, hyperlipidemia, asthma, insomnia and anxiety here for annual physical. Plan is as follows: Type II diabetes mellitus. Her blood sugars are within reasonable limits. She is on right medications. She has seen her hotel maintenance technician in the past 1 year. Foot care [...] cancer screening. She follows up with her platform builder for breast and pelvic exams. Eye screening. She sees her hotel maintenance technician regularly. Dental screening. She sees dentist at [...] on right medications. She has seen her hotel maintenance technician in the past 1 year. Foot care [...] this note under HIPAA compliance and under [place] law mandated for scribe services. Patient aware [...] on right medications. She has seen her hotel maintenance technician in the past 1 year. Foot care [...] this note under HIPAA compliance and under [place] law mandated for scribe services. Patient aware [...] afternoon for breakthrough pains. She follows with [facility] Dr. Iraheta. Chronic kidney disease stage 3. -She does not appear to be in volume overload. Advised appropriate hydration. Avoid NSAIDs. She sees Dr. Lakhani. Asthma. -She uses her inhalers as needed. Follows with Dr. [facility] Generalized anxiety disorder. -Mood is stable on Lorazepam 3 times a day. She has a psychiatrist and a therapist. GERD/gastroparesis/ dysphagia - Currently she is on omperazole 20m and Reglan 10 MG twice a day. I have increased omperazole to 40mg and advised patient to follow-up with her GI at [facility]. She has an appt in May. MUSA: [...] patient but was available upon request 02/21/2024 Chronic kidney disease, stage 3 unspecified (ICD-10 - N18.30) Maribell is a 63-year-old lady with DM2, hypertension, hyperlipidemia, asthma, insomnia and anxiety here for follow up. Plan is as follows: Type II diabetes mellitus. Hb A1c improve energy 6.1.She is on right medications. She has seen her hotel maintenance technician in the past 1 year. Foot care [...] because she is on temazepam. Referred to [facility] Dr. Iraheta. Chronic kidney disease [...] this note under HIPAA compliance and under [place] law mandated for scribe services. Patient aware of service. Verbal consent and written consent taken from the patient. Patient understands and verbalizes understanding of the scribes services and all questions answered regarding scribes services. Patient agrees to use of scribes services. 04/18/2024 Radiculopathy, lumbosacral region (ICD-10 - M54.17) [...] afternoon for breakthrough pains. She follows with [facility] Dr. Iraheta. Chronic kidney disease stage 3. -She does not appear to be in volume overload. Advised appropriate hydration. Avoid NSAIDs. She sees Dr. Lakhani. Asthma. -She uses her inhalers as needed. Follows with Dr. [facility] Generalized anxiety disorder. -Mood is stable on Lorazepam 3 times a day. She has a psychiatrist and a therapist. GERD/gastroparesis/ dysphagia - Currently she is on omperazole 20m and Reglan 10 MG twice a day. I have increased omperazole to 40mg and advised patient to follow-up with her GI at [facility]. She has an appt in May. MUSA: [...] on right medications. She has seen her hotel maintenance technician in the past 1 year. Foot care [...] this note under HIPAA compliance and under [place] law mandated for scribe services. Patient aware [...] on right medications. She has seen her hotel maintenance technician in the past 1 year. Foot care [...] cancer screening. She follows up with her platform builder for breast and pelvic exams. Eye screening. She sees her hotel maintenance technician regularly. Dental screening. She sees dentist at [...] on right medications. She has seen her hotel maintenance technician in the past 1 year. Foot care [...] cancer screening. She follows up with her platform builder for breast and pelvic exams. Eye screening. She sees her hotel maintenance technician regularly. Dental screening. She sees dentist at [...] on right medications. She has seen her hotel maintenance technician in the past 1 year. Foot care [...] this note under HIPAA compliance and under [place] law mandated for scribe services. Patient aware [...] afternoon for breakthrough pains. She follows with [facility] Dr. Iraheta. Chronic kidney disease stage 3. -She does not appear to be in volume overload. Advised appropriate hydration. Avoid NSAIDs. She sees Dr. Lakhani. Asthma. -She uses her inhalers as needed. Follows with Dr. [facility] Generalized anxiety disorder. -Mood is stable on Lorazepam 3 times a day. She has a psychiatrist and a therapist. GERD/gastroparesis/ dysphagia - Currently she is on omperazole 20m and Reglan 10 MG twice a day. I have increased omperazole to 40mg and advised patient to follow-up with her GI at [facility]. She has an appt in May. MUSA: [...] afternoon for breakthrough pains. She follows with [facility] Dr. Iraheta. Chronic kidney disease stage 3. -She does not appear to be in volume overload. Advised appropriate hydration. Avoid NSAIDs. She sees Dr. Lakhani. Asthma. -She uses her inhalers as needed. Follows with Dr. [facility] Generalized anxiety disorder. -Mood is stable on Lorazepam 3 times a day. She has a psychiatrist and a therapist. GERD/gastroparesis/ dysphagia - Currently she is on omperazole 20m and Reglan 10 MG twice a day. I have increased omperazole to 40mg and advised patient to follow-up with her GI at [facility]. She has an appt in May. MUSA: [...] on right medications. She has seen her hotel maintenance technician in the past 1 year. Foot care [...] cancer screening. She follows up with her platform builder for breast and pelvic exams. Eye screening. She sees her hotel maintenance technician regularly. Dental screening. She sees dentist at [...] on right medications. She has seen her hotel maintenance technician in the past 1 year. Foot care [...] cancer screening. She follows up with her platform builder for breast and pelvic exams. Eye screening. She sees her hotel maintenance technician regularly. Dental screening. She sees dentist at [...] afternoon for breakthrough pains. She follows with [facility] Dr. Iraheta. Chronic kidney disease [...] patient to follow-up with her GI at [facility]. She has an appt in May. MUSA: [...] afternoon for breakthrough pains. She follows with [facility] Dr. Iraheta. Chronic kidney disease [...] patient to follow-up with her GI at [facility]. She has an appt in May. MUSA: [...] afternoon for breakthrough pains. She follows with [facility] Dr. Iraheta. Chronic kidney disease stage 3. -She does not appear to be in volume overload. Advised appropriate hydration. Avoid NSAIDs. She sees Dr. Lakhani. Asthma. -She uses her inhalers as needed. Follows with Dr. [facility] Generalized anxiety disorder. -Mood is stable on Lorazepam 3 times a day. She has a psychiatrist and a therapist. GERD/gastroparesis/ dysphagia - Currently she is on omperazole 20m and Reglan 10 MG twice a day. I have increased omperazole to 40mg and advised patient to follow-up with her GI at [facility]. She has an appt in May. MUSA: [...] afternoon for breakthrough pains. She follows with [facility] Dr. Iraheta. Chronic kidney disease stage 3. -She does not appear to be in volume overload. Advised appropriate hydration. Avoid NSAIDs. She sees Dr. Lakhani. Asthma. -She uses her inhalers as needed. Follows with Dr. [facility] Generalized anxiety disorder. -Mood is stable on Lorazepam 3 times a day. She has a psychiatrist and a therapist. GERD/gastroparesis/ dysphagia - Currently she is on omperazole 20m and Reglan 10 MG twice a day. I have increased omperazole to 40mg and advised patient to follow-up with her GI at [facility]. She has an appt in May. MUSA: [...] afternoon for breakthrough pains. She follows with [facility] Dr. Iraheta. Chronic kidney disease stage 3. -She does not appear to be in volume overload. Advised appropriate hydration. Avoid NSAIDs. She sees Dr. Lakhani. Asthma. -She uses her inhalers as needed. Follows with Dr. [facility] Generalized anxiety disorder. -Mood is stable on Lorazepam 3 times a day. She has a psychiatrist and a therapist. GERD/gastroparesis/ dysphagia - Currently she is on omperazole 20m and Reglan 10 MG twice a day. I have increased omperazole to 40mg and advised patient to follow-up with her GI at [facility]. She has an appt in May. MUSA: [...] afternoon for breakthrough pains. She follows with [facility] Dr. Iraheta. Chronic kidney disease stage 3. -She does not appear to be in volume overload. Advised appropriate hydration. Avoid NSAIDs. She sees Dr. Lakhani. Asthma. -She uses her inhalers as needed. Follows with Dr. [facility] Generalized anxiety disorder. -Mood is stable on Lorazepam 3 times a day. She has a psychiatrist and a therapist. GERD/gastroparesis/ dysphagia - Currently she is on omperazole 20m and Reglan 10 MG twice a day. I have increased omperazole to 40mg and advised patient to follow-up with her GI at [facility]. She has an appt in May. MUSA: [...] afternoon for breakthrough pains. She follows with [facility] Dr. Iraheta. Chronic kidney disease stage 3. -She does not appear to be in volume overload. Advised appropriate hydration. Avoid NSAIDs. She sees Dr. Lakhani. Asthma. -She uses her inhalers as needed. Follows with Dr. [facility] Generalized anxiety disorder. -Mood is stable on Lorazepam 3 times a day. She has a psychiatrist and a therapist. GERD/gastroparesis/ dysphagia - Currently she is on omperazole 20m and Reglan 10 MG twice a day. I have increased omperazole to 40mg and advised patient to follow-up with her GI at [facility]. She has an appt in May. MUSA: [...] UA W/REFLEX MICROSCOPIC & CULTURE 2022 Albumin/Creatinine Ratio,[id number] Lipid Panel-[id number] 04/18/2024 Comp. Metabolic Panel [id number] 2023 Next Appt Details Provider Name:ELLA MICHAEL , 05/23/2024 09:30:00 AM, [address] [place] [address], [place], [phone], Insurance Providers Payer Name Payer Address Payer Phone Subscriber Number Group Number Insured Name Patient Relationship to Insured Coverage Start Date Coverage End Date [facility] [address] [place] [address] [id number] MARIBELL TAYLOR Self - patient is the insured Medical (General) History Medical History History ICD Code hypertension, benign hyperlipidemia IDDM T 2, [facility] endo Urinary incontinence and she sees Dr. England at [facility] Left shoulder pain and she sees Dr. Alida villa and she is also seen Dr. Diaz Asthma and she sees Pul at [facility] Generalized anxiety disorder and she is seen by a psychiatrist and she goes to [facility] Pain management and has seen Dr. Montiel at [facility] in past Peripheral arterial disease and status post amputation below knee joint currently on Coumadin and goes to Coumadin clinic Lumbar radiculopathy on oxycodone 30 mg 3 times a day DVT leg LE sleep apnea see Pul at [facility] Left leg amputation below knee joint Chronic kidney disease stage 3, Dr. Janis smalls Personal history of COVID-19 GI- [facility] Surgical History Surgery Date(Month/Year) rotator cuff tear repair September 2017 wrist surgery below the knee amputation 20 07 left side for Blood clots 2/2 to OCP and pt was smoking rt toes amputation 2004 right wrist synovial cyst resection, Dr. Henriquez 2021 right carpal tunnel decompression, Dr. Flores hadley 2021 Hospitalization History Reason Date(Month/Year)
--- OUTSIDE RECORDS SUMMARY | 2024-04-24 11:46 | XMS_ITS ---
Author Organization [facility] Address [address] [place] [id number] Care Team Providers Care Counter Intelligence Name Role Phone ELLA MICHAEL Primary Care Provider REASON FOR VISIT Montelukast Sodium Medications Medication SIG (Take, Route, Frequency, Duration) Notes Start Date End Date Status Montelukast Sodium 10 mg TAKE 1 TABLET B Y MOUTH ONCE A DAY for 30 days Active Encounters Encounter Location Date Provider Diagnosis [address] [id number] 04/16/2024 ELLA MICHAEL Plan Of Treatment Medication Medication Name Sig Start Date Stop Date Notes Montelukast Sodium 10 mg TAKE 1 TABLET B Y MOUTH ONCE A DAY for 30 days Next Appt Details Provider Name:ELLA MICHAEL , 05/23/2024 09:30:00 AM, [address] [place] [address], [place], [phone], Progress Notes * ZOIE SWEENEY HDOB: 3 (63 yo F)Acc No.[id number]:04/16/2024 Patient:?ZOIE SWEENEY :1960???Age:63 Y???Sex:Female Address:[address] [place] [id number] * Refills? Refill Montelukast Sodium Tablet, 10 mg, 90 Tablet, TAKE 1 TABLET BY MOUTH ONCE A DAY, 30 days, Refills=5 * true * Date:? Generated for Hood sanchez/Nataliia/eTransmitting on:?04/24/2024 11:45 AM EST
--- OUTSIDE RECORDS SUMMARY | 2024-04-24 11:46 | XMS_ITS ---
Author Organization [facility] Address [address] [place] [address] Care Team Providers Care Pigment Presser Name Role Phone ELLA MICHAEL Primary Care Provider Adolfo Vilchis Unavailable [phone] Allergies Allergen (clinical drug ingredient) Drug/Non Drug [...] TIMES A DAY DIRECTED for 30 Active Jlnadhzd-Dgrfmaxqb-HJ 1 % 4 drops into affected ear Otic Three times a day for 7 days 05/31/2023 Active Meclizine HCl 25 MG 1 tablet as needed Orally every 12 hrs for 10 days 05/31/2023 Active True Comfort Pen [place] 32G X 4 MM USE TO INJECT insulin 5 TIMES A DAY for 25 Active Lidocaine 5 % Apply 1 patch to the affected area for 12 hours a day. Remove for 12 hours. NEEDED FOR most painful AREA for 30 Active Phoqeqdo-Nkxoqcyoe-HX 1 % 4 drops into affected ear [...] Status W/U Status Risk Notes Problem Dysphagia (98017925) Dysphagia, unspecified (R13.10) Active confirmed Problem Urinary incontinence (213047658) Urinary incontinence, unspecified type (R32) Active confirmed Vital Signs Temperature 97.1 degrees Fahrenheit 04/18/20 Oximetry 91 % 04/18/2024 Heart Rate 88 /min 04/18/2024 Blood pressure systolic 130 mm Hg 04/18/20 Blood pressure diastolic 74 mm Hg 024 Weight 212.8 lbs 04/18/2024 BMI 38.62 kg/m2 04/18/2024 Height 62.24 in 04/18/2024 Encounters Encounter Location Date Provider Diagnosis [facility] [address] [address] 04/18/2024 Adolfo Vilchis Diabetes mellitus du e [...] afternoon for breakthrough pains. She follows with [facility] Dr. Iraheta. Chronic kidney disease stage 3. -She does not appear to be in volume overload. Advised appropriate hydration. Avoid NSAIDs. She sees Dr. Lakhani. Asthma. -She uses her inhalers as needed. Follows with Dr. [facility] Generalized anxiety disorder. -Mood is stable on Lorazepam 3 times a day. She has a psychiatrist and a therapist. GERD/gastropares is/dysphagia - Currently she is on omperazole 20m and Reglan 10 MG twice a day. I have increased omperazole to 40mg and advised patient to follow-up with her GI at [place]. She has an appt in May. MUSA: [...] afternoon for breakthrough pains. She follows with [facility] Dr. Iraheta. Chronic kidney disease stage 3. -She does not appear to be in volume overload. Advised appropriate hydration. Avoid NSAIDs. She sees Dr. Lakhani. Asthma. -She uses her inhalers as needed. Follows with Dr. [facility] Generalized anxiety disorder. -Mood is stable on Lorazepam 3 times a day. She has a psychiatrist and a therapist. GERD/gastropares is/dysphagia - Currently she is on omperazole 20m and Reglan 10 MG twice a day. I have increased omperazole to 40mg and advised patient to follow-up with her GI at [place]. She has an appt in May. MUSA: [...] afternoon for breakthrough pains. She follows with [facility] Dr. Iraheta. Chronic kidney [...] patient to follow-up with her GI at [place]. She has an appt in May. MUSA: [...] afternoon for breakthrough pains. She follows with [facility] Dr. Iraheta. Chronic kidney [...] patient to follow-up with her GI at [place]. She has an appt in May. MUSA: [...] disease, stage 3 unspecified (ICD-10 - N18.30) Mariblel is a 63-year-old lady with DM2, hypertension, [...] afternoon for breakthrough pains. She follows with [facility] Dr. Iraheta. Chronic kidney disease stage 3. -She does not appear to be in volume overload. Advised appropriate hydration. Avoid NSAIDs. She sees Dr. Lakhani. Asthma. -She uses her inhalers as needed. Follows with Dr. [facility] Generalized anxiety disorder. -Mood is stable on Lorazepam 3 times a day. She has a psychiatrist and a therapist. GERD/gastropares is/dysphagia - Currently she is on omperazole 20m and Reglan 10 MG twice a day. I have increased omperazole to 40mg and advised patient to follow-up with her GI at [place]. She has an appt in May. MUSA: [...] afternoon for breakthrough pains. She follows with [facility] Dr. Iraheta. Chronic kidney disease stage 3. -She does not appear to be in volume overload. Advised appropriate hydration. Avoid NSAIDs. She sees Dr. Lakhani. Asthma. -She uses her inhalers as needed. Follows with Dr. [facility] Generalized anxiety disorder. -Mood is stable on Lorazepam 3 times a day. She has a psychiatrist and a therapist. GERD/gastropares is/dysphagia - Currently she is on omperazole 20m and Reglan 10 MG twice a day. I have increased omperazole to 40mg and advised patient to follow-up with her GI at [place]. She has an appt in May. MUSA: [...] afternoon for breakthrough pains. She follows with [facility] Dr. Iraheta. Chronic kidney disease stage 3. -She does not appear to be in volume overload. Advised appropriate hydration. Avoid NSAIDs. She sees Dr. Lakhani. Asthma. -She uses her inhalers as needed. Follows with Dr. [facility] Generalized anxiety disorder. -Mood is stable on Lorazepam 3 times a day. She has a psychiatrist and a therapist. GERD/gastropares is/dysphagia - Currently she is on omperazole 20m and Reglan 10 MG twice a day. I have increased omperazole to 40mg and advised patient to follow-up with her GI at [place]. She has an appt in May. MUSA: [...] afternoon for breakthrough pains. She follows with [facility] Dr. Iraheta. Chronic kidney disease stage 3. -She does not appear to be in volume overload. Advised appropriate hydration. Avoid NSAIDs. She sees Dr. Lakhani. Asthma. -She uses her inhalers as needed. Follows with Dr. [facility] Generalized anxiety disorder. -Mood is stable on Lorazepam 3 times a day. She has a psychiatrist and a therapist. GERD/gastropares is/dysphagia - Currently she is on omperazole 20m and Reglan 10 MG twice a day. I have increased omperazole to 40mg and advised patient to follow-up with her GI at [place]. She has an appt in May. MUSA: [...] afternoon for breakthrough pains. She follows with [facility] Dr. Iraheta. Chronic kidney disease stage 3. -She does not appear to be in volume overload. Advised appropriate hydration. Avoid NSAIDs. She sees Dr. Lakhani. Asthma. -She uses her inhalers as needed. Follows with Dr. [facility] Generalized anxiety disorder. -Mood is stable on Lorazepam 3 times a day. She has a psychiatrist and a therapist. GERD/gastropares is/dysphagia - Currently she is on omperazole 20m and Reglan 10 MG twice a day. I have increased omperazole to 40mg and advised patient to follow-up with her GI at [place]. She has an appt in May. MUSA: [...] afternoon for breakthrough pains. She follows with [facility] Dr. Iraheta. Chronic kidney disease stage 3. -She does not appear to be in volume overload. Advised appropriate hydration. Avoid NSAIDs. She sees Dr. Lakhani. Asthma. -She uses her inhalers as needed. Follows with Dr. [facility] Generalized anxiety disorder. -Mood is stable on Lorazepam 3 times a day. She has a psychiatrist and a therapist. GERD/gastropares is/dysphagia - Currently she is on omperazole 20m and Reglan 10 MG twice a day. I have increased omperazole to 40mg and advised patient to follow-up with her GI at [place]. She has an appt in May. MUSA: [...] afternoon for breakthrough pains. She follows with [facility] Dr. Iraheta. Chronic kidney disease stage 3. -She does not appear to be in volume overload. Advised appropriate hydration. Avoid NSAIDs. She sees Dr. Lakhani. Asthma. -She uses her inhalers as needed. Follows with Dr. [facility] Generalized anxiety disorder. -Mood is stable on Lorazepam 3 times a day. She has a psychiatrist and a therapist. GERD/gastropares is/dysphagia - Currently she is on omperazole 20m and Reglan 10 MG twice a day. I have increased omperazole to 40mg and advised patient to follow-up with her GI at [place]. She has an appt in May. MUSA: [...] afternoon for breakthrough pains. She follows with [facility] Dr. Iraheta. Chronic kidney [...] patient to follow-up with her GI at [place]. She has an appt in May. MUSA: [...] afternoon for breakthrough pains. She follows with [facility] Dr. Iraheta. Chronic kidney [...] patient to follow-up with her GI at [place]. She has an appt in May. MUSA: [...] Pending Test Test Name Order Date Albumin/Creatinine Ratio,Urine-[id number] Lipid Panel-[id number] 04/18/2024 Comp. Metabolic Panel [id number] 2023 Next Appt Details Follow Up: schedule Rosanne flores son: Provider Name:ELLA MICHAEL , 05/23/2024 09:30:00 AM, [address] [place] [address], [phone], Procedure Notes * Category Sub-Category Detail Notes Urinalysis Protein: Negative Ketones: Trace Leukocytes: Negative Nitrates: Negative pH: 6 Spec Hampton: 1.010 Glucose: Negative Blood: Negative Bilirubin: Negative Urobili: Negative Progress Notes * CLAUDIA MARIBELL HDOB: 3 (63 yo F)Acc No.[id number]:04/18/2024 Progress Notes Patient:?MARIBELL TAYLOR Provider:?Adolfo Vilchis DOB:1960???Age:63 Y???Sex:Female D ate:04/18/2024 Address:[address] [place] [address] PAULINO [phone] Pcp:ELLA MICHAEL Subjective: * Chief Complaints: * [...] ONCE A DAY DIRECTED True Comfort Pen [place] 32G X 4 MM Miscellaneous USE TO INJECT insulin 5 TIMES A DAY Alcohol Pads 70 % Pad USE TOPICALLY THREE TIMES DAILY DIRECTED Lidocaine 5 % Patch Apply 1 patch to the affected area for 12 hours a day. Remove for 12 hours. NEEDED FOR most painful AREA Meclizine HCl 25 MG Tablet 1 tablet as needed Orally every 12 hrs Kccvkiij-Jqqdverub-FU 1 % Solution 4 drops into affected [...] A DAY DIRECTED Taking True Comfort Pen [place] 32G X 4 MM Miscellaneous USE TO [...] as needed Orally every 12 hrs Taking Yskanzel-Ypcbtdlml-RI 1 % Solution 4 drops into affected [...] into affected ear Otic Once a day Wispuxas-Swekqiszk-AK 1 % Solution 4 drops into affected [...] affected ear Otic Once a day Not-Taking Fvbmtbah-Duqnkwdft-AY 1 % Solution 4 drops into affected [...] Ht: 62.24 in. * ???Past Orders: ???Lab:Hemoglobin [id number] (Order Date - 02/16/2024) (Collection Date & [...] amputation left leg below knee joint.?FEMALE GENITOURINARY:?__.?MALE GENITOURINARY:?__.?Mold Repair Technician? .? Assessment: * Assessment: 1.?Diabetes mellitus due [...] afternoon for breakthrough pains. She follows with [facility] Dr. Iraheta. Chronic kidney disease stage 3. -She does not appear to be in volume overload. Advised appropriate hydration. Avoid NSAIDs. She sees Dr. Lakhani. Asthma. -She uses her inhalers as needed. Follows with Dr. [facility] Generalized anxiety disorder. -Mood is stable on Lorazepam 3 times a day. She has a psychiatrist and a therapist. GERD/gastroparesis/dysphagia - Currently she is on omperazole 20m and Reglan 10 MG twice a day. I have increased omperazole to 40mg and advised patient to follow-up with her GI at [place]. She has an appt in May. MUSA: [...] * Treatment: 2.?Essential (primary) hyper tension?LAB: Albumin/Creatinine Ratio,Urine-[id number] 3.?Dysphagia, unspecified? Start Omeprazole Capsule Delayed Release, 40 MG, 1 capsule 1/2 to 1 hour before morning meal, Orally, Once a day, 30 days, 30, Refills 3.?? * Procedures:?Urinalysis:?Glucose:?Negative.?Bilirubin:?Negative.?Ketones:?Trace.?Spec Hampton:?1.010.?Blood:?Negative.?pH:?6.?Protein:?Negative.?Urobili:?Negative.?Nitrates:?Negative.?Leukocytes:?Negative.? * Procedure Codes:?3078F DIAST BP < 80 MM FY7973V SYST BP GE 130 - 139MM [id number] URINALYSIS, AUTO, W/O SCOPE, Modifiers: QW * Follow Up:?schedule sandra * * Sign off status: Completed true * Provider:?Adolfo Vilchis Date:?04/18/20 24 Generated for Hood sanchez/Nataliia/eTransmitting on:?04/24/2024 11:45 AM EST History and Physical Notes * [...] Normal Psychiatry Normal OROPHARYNX Normal SINUSES Normal Mold Repair Technician
--- OUTSIDE RECORDS SUMMARY | 2024-04-24 11:47 | XMS_ITS | Data Portability ---
Author Organization [place] - [facility], Allergy Address [address] [address] Care Team Providers Care Medical Office Rep Name Role Phone ELLA MICHAEL Primary Care [...] Imaging MRI, brain, w/wo contrast - prefers [facility] eld 2023 0[facility] ([facility] [address] [place], [address], 01/03/2024 14:20:34 Medication Orders clotrima zole-bet amethaso ne 1 %-0.05 % topical cream 2023 024 [facility] [place], [place] - [id number], [address] [place], [address], 02/29/2024 15:08:30 Patient TargetsNo targets recorded. Patient InstructionsNo instructions recorded. Reason for Referral None Reported. Results Created Date Observation Date Name Description Value Unit Range Abnormal Flag Note LastModifiedBy Organization Detail LastModifiedTime 12/13/19 24 12/12/2023 MRI, brain + brain stem, w/wo contr ast [facility] Access ion Number : [id number] Jhoana lange Name: Maribell Sweeneya l Record Number : [id number] Date of : 1960 Date of Exam: 2023 Referr ing Physic kellen: [facility] [place] [address] [place] [address] Exam: MR Brain (C-/C+ ) CPT 78205 Room Descri ption: [facility] Verio 3.0T MR Brain (C-/C+ ) CPT 95121 INDICA TION / CLIN[facility] ON: [...] is mild scatte red mucosa l thicke mar[place] in the parana agustin sinuse s, with [...] onical ly Signed By: Abdulaziz Parmar MD [facility] ([facility]) [address] [facility] [place], [address], 12/31/2023 04:57:08 12/28/19 24 07/18/2023 imagi ng/di [...] Details Recorded Time Otalgia of left ear 7781962966 Active 2020 Otalgia, left ear; Note: Date Diagnosed : 04/08/2021 3:18 PM (H92.02) Not Available [facility] 4 02:15:47 Diffuse otitis externa 12875841 Active 2020 Diffuse otitis externa, left ear; Note: Date Diagnosed : 07/17/2020 5:26 PM (H60.312) Note: Date Diagnosed : 07/17/2020 5:26 PM (H60.312) Not Available [facility] 4 00:49:08 Pain of left temporoma ndibular joint 75081629675 017754 Active 2020 Arthralgi a of left temporoma ndibular joint; Note: Date Diagnosed : 04/08/2021 3:18 PM (M26.622) Not Available [facility] 4 02:15:35 Tinnitus of left ear 28982817059 06 Active 2020 Tinnitus, left ear; Note: Date Diagnosed : 04/08/2021 3:18 PM (H93.12) Not Available [facility] 4 02:13:36 Disorder of nasal sinus 7441717 Active 2019 Unspecifi ed disorder of nose and nasal sinuses; Note: Date Diagnosed : 12/11/2019 7:07 PM (J34.9) Not Available [facility] 4 02:14:50 Disorder of the nose 84950772 Active 2019 Unspecifi ed disorder of nose and nasal sinuses; Note: Date Diagnosed : 12/11/2019 7:07 PM (J34.9) Not Available [facility] 4 02:14:50 Dysphagia 28672477 Active 2017 Dysphagia , unspecifi ed; Note: Date Diagnosed : 10/26/2017 3:35 PM (R13.10) Not Available [facility] 4 02:15:17 Acute maxillary sinusitis 45726065 Active 2019 Acute maxillary sinusitis , unspecifi ed; Note: Date Diagnosed : 12/11/2019 7:07 PM (J01.00) Not Available [facility] 4 02:13:26 Itching of skin 721509717 Active 2019 Pruritus, unspecifi ed; Note: Date Diagnosed : 12/17/2019 9:41 AM (L29.9) Not Available [facility] 4 02:15:04 Gastroeso phageal reflux disease without esophagit is 781576416 Active 2017 Gastro-es ophageal reflux disease without esophagit is; Note: Date Diagnosed : 10/26/2017 3:36 PM (K21.9) Not Available [facility] hospital 4 02:13:57 Sensorine ural hearing loss 77633433 Active 2020 Sensorine ural hearing loss, unilatera l, left ear, with unrestric trisha hearing on the contralat eral side; Note: Date Diagnosed : 08/04/2020 11:03 AM (H90.42) Not Available Critical [facility] hospital 4 02:14:29 Trigemina l neuralgia 94990684 Active 2023 DURAN NELSON MD [address] [place] [address], [place], [address] , [facility] - [facility] 4 18:40:58 Localized masticato ry muscle soreness 086441125 Active 2023 Myalgia of masticati on muscle; Note: Date Diagnosed : 07/26/2023 2:53 PM (M79.11) Not Available [facility] 4 02:15:11 Type 2 diabetes mellitus without complicat ion 210642064 Active 2023 Type 2 diabetes mellitus without complicat ions; Note: Date Diagnosed : 06/13/2023 1:31 PM (E11.9) Not Available Critical access hospital 4 02:15:17 Problem Notes None recorded. Procedures Surgical History None recorded. Imaging Results Imaging Date Name Status LastModified by Organiz ation Details LastModified Time 12/12/2023 MRI, brain + brain stem, w/wo contrast completed [facility] ([facility]) [address], [place], [address], 12/31/2023 04:57:08 07/18/2023 imaging/diagn ostic result completed [...] Name and Address Organization Details Recorded Time 22977 aspirin medicatio n other Not available Not available 09/20/2023 1191 RxNorm React ion: unkno wn, unspe cifie d;; Not Available [facility] 4 00:49:02 11360 acetamino phen / oxycodone medicatio n other Not available Not available 09/20/2023 50206 3 RxNorm React ion: unkno wn, unspe cifie d;; Not Available [facility] 4 00:49:48 27142 naproxen medicatio n other Not available Not available 09/20/2023 7258 RxNorm React ion: unkno wn, unspe cifie d;; Not Available [facility] 4 00:49:48 Medications Name Sig Start Date [...] a day 2023 active Medicati on ID: 832408 D uration Value: 10 Brand Name: ciproflo [...] mg tablet 2017 active Medicati on ID: 503460 D uration Value: 30 Brand Name: cyprohep [...] topical solution 01/11 completed Medicati on ID: 783490 D uration Value: 14 Prescri bed By [...] small amount 2020 active Medicati on ID: 415158 D uration Value: 7 Prescri bed By [...] drops,randy pension 01/11 completed Medicati on ID: 211388 Aquilino newberry By Name: AZUCENA Andrade nd [...] 5 drop 2020 active Medicati on ID: 549957 D uration Value: 30 Prescri bed By [...] by mouth 10/19 completed Medicati on ID: 961813 D uration Value: 30 Prescri bed By Name: Paula KrugerVINAY nd Name: omeprazo le Send Method: E-Prescr ibed Sub s Allowed: subs OK Speci al Instruct ion: Take 1 tablet by mouth every day before a meal Med icationG enericNa me: omeprazo le Medic ation ID: [id number] D uration Value: 30 Prescri bed By [...] Available No t Available Comfort EZ Pen [place] 32 gauge x 5/32 USE TO INJECT insulin 5 TIMES A DAY active Not Available Not Available No t Available Jardiance 10 mg tablet TAKE 1 TABLET BY MOUTH EVERY MORNING active Not Available Not Available No t Available Flonase Allergy Relief 50 mcg/actua tion nasal spray,randy pension 2 puff into both nostrils 2019 active Medicati on ID: 356276 D uration Value: 30 Prescri bed By [...] Available No t Available FreeStyle Antonio 2 [place] USE DIRECTED active Not Available Not Available [...] Updated DateTime 12/27/2023 157.48 cm 35.5 kg/m2 69978.92 g Nyla Rowland [place] - [facility] 12/27/2023 13:07:29 Date Recorded Body height Body mass index (BMI) Body weight Provider Name and Address Organization Details Last Updated DateTime 01/12/2024 157.48 cm 35.5 kg/m2 28505.92 g Nyla Rowland [facility] 01/12/2024 13:05:16 Date Recorded Body height Body mass index (BMI) Body weight Provider Name and Address Organization Details Last Updated DateTime 10/20/2023 157.48 cm 38.2 kg/m2 45548.81 g Nyla Rowland [facility] 10/20/2023 13:21:31 Social History None recorded. [...] Code 3841 DURAN NELSON MD [facility] on [address] [place] [address] 10/20/2023 13:04:44 10/20/2023 14:59:17 Otalgia of left ear 9865607622 H92.02 Trigeminal neuralgia 316 12717 G50.0 20907 DURAN NELSON MD [facility] on [address] [place] [address] 12/27/2023 13:00:52 12/27/2023 13:42:13 Diffuse otitis externa 30059293 H60.312 Otalgia of left ear 1010 566859 H92.02 22953 DURAN NELSON MD [facility] on [address] [place] [phone] 01/12/2024 12:56:02 01/12/2024 14:21:07 Otalgia of left ear 3161583792 H92.02 Health Concerns Section Related Observation LastModified by Organization Detai ls LastModified Time None Recorded Concern Status LastModified by Organization Details LastModified Time None Recorded Advance Directives Directive None Recorded Payers Encounter Date Sequence Insurance Name Policy Number Policy Yost Covered Member ID Yost Member ID Guarantor Name 10/20/2023 1 [facility] [id number] Maribell H Colon [id number] 1 Maribell H Colon 12/27/2023 1 [facility] [id number] Maribell H Colon [id number] 1 Maribell H Colon 01/12/2024 1 [facility] [id number] Maribell H Colon [id number] 1 Maribell H Colon Notes Date Note Type Note Provider Name and Address Organization Details Recorded Time 10/20/2023 text/html 63 yo F presents for follow up of her left ear. She is here for scheduled cerumen removal, but she is concerned about persistent pain. She was seen in [place] at the end of January and had [...] a CT scan of the neck at [place] which did not show any sign of [...] mouth to to tightness DURAN NELSON MD [address] [place] [address], [phone], [facility] - [facility] 10/30/2023 18:46:54 12/27/2023 text/html 63-year-old luis carlos bull presents today for follow-up and reassessment of her ear. PV:63 yo F presents for follow up of her left ear. She is here for scheduled cerumen removal, but she is concerned about persistent pain. She was seen in [place] at the end of January and had [...] a CT scan of the neck at [place] which did not show any sign of [...] mouth to to tightness DURAN NELSON MD [address] [place] [address],[address], [address], [facility] 01/03/2024 08:17:01 01/12/2024 text/html 63 yo F presents for follow up after lotrisone injection on the left. She does feel improvement in left otalgia. \ She was seen in [place] at the end of January and had [...] symptoms on the left. DURAN NELSON MD [address] [place] [address], [address], [place] - [facility] 01/18/2024 06:10:12 OBGyn Episode No OBEpisode recorded.
[2024-04-24 11:58] LABS: MANUAL DIFF FLAG NO
[2024-04-24 12:02] LABS: Basophils Percent Auto 0.4 % (0-2); Eosinophils Absolute Auto 0.4 X10*3/uL (0.0-0.4); Eosinophils Percent Auto 3.7 % (0-4); Hematocrit 37.4 % (37.0-47.0); Hemoglobin 12.9 g/dl (12.0-16.0); Imm Gran Abs Auto 0.03 X10*3/uL (0.00-0.03); Imm Gran Pct Auto 0.3 % (0.0-0.4); Lymphocytes Percent Auto 31.3 % (20-40); Mean Corpuscular HGB Conc 34.5 g/dl (31.0-35.0); Mean Corpuscular Hemoglobin 31.7 pg (27.0-33.0); Mean Corpuscular Volume 91.9 fL (80.0-98.0); Mean Platelet Volume 9.1 fL (9.4-12.3); Monocytes Absolute Auto 0.6 X10*3/uL (0.1-1.2); Monocytes Percent Auto 6.2 % (2-11); Neutrophils Absolute Auto 5.7 x10*3/uL (2.0-8.3); Neutrophils Percent Auto 58.1 % (45-73); Platelet Count 225 X10*3/uL (160-400); Red Blood Count 4.07 X10*6/uL (4.20-5.50); White Blood Count 9.7 X10*3/uL (4.8-10.8)
[2024-04-24 12:13] LABS: Estimated Average Glucose 143 mg/dL; Hemoglobin A1C 162.1124 umol/L; Hemoglobin A1c % 6.6 % (<6.0); Total Hemoglobin (HGBA1C) 3305.0443 umol/L
[2024-04-24 12:42] LABS: Erythrocyte Sedimentation Rate 12 MM/HR (0-20)
[2024-04-24 12:51] LABS: Rheumatoid Factor < 13.0 IU/mL (<15.0); TSH reflex Free T4 1.98 uIU/mL (0.32-4.0)
[2024-04-24 12:52] LABS: Alanine Aminotransferase 47 U/L (0-31); Albumin Level 3.8 g/dL (3.5-5.0); Alkaline Phosphatase 87 U/L (39-117); Anion Gap 10 (12-20); Aspartate Amino Transferase 33 U/L (5-31); Bilirubin Total 0.3 mg/dL (0.0-1.0); Blood Urea Nitrogen 16 mg/dL (9-16); Calcium 9.6 mg/dL (8.4-10.2); Carbon Dioxide 29 mmol/L (22-29); Chloride 106 mmol/L (96-108); Estimated Glomerular Filt Rate 52; Glucose Random 124 mg/dL (60-115); Potassium 4.6 mmol/L (3.3-5.1); Sodium 140 mmol/L (135-145); Total Protein 6.5 g/dL (6.5-8.0)
[2024-04-24 13:04] LABS: Vitamin B12 565 pg/mL (200-900)
[2024-04-25 08:18] LABS: HBc Num1 0.08 S/CO (0.00-0.79); HBsAGNum1 0.31 S/CO (0.00-0.99); HIV AB/AG Nonreactive (Nonreactive); HIV Num 1 0.06 S/CO (0.00-0.99); Hepatitis A Antibody IgM 0.14 Index (0-0.79); Hepatitis B Core Antibody Nonreactive (Nonreactive); Hepatitis B Surface Antigen Negative (Negative); ~HepC Num1 0.08 S/CO (0.00-0.79); ~Hepatitis A Antibody IgM Nonreactive (Nonreactive); ~Hepatitis B Surface Antibody NONREACTIVE (Nonreactive); ~Hepatitis C Antibody Nonreactive (Nonreactive)
[2024-04-26 14:43] LABS: Anti Nuclear Antibody Screen NEGATIVE (NEGATIVE)
[2024-04-28 13:03] LABS: CRP High Sensitivity 5.1 mg/L
== END 2024-04-24 11:29 | disposition home or self-care (01) ==
LOC: HO.LAB 11:28
PROVIDERS: Absent Provider Nurse Practitioner; PCP Hospitalist; Visit Provider Nurse Practitioner Family
DX: M31.6 Other giant cell arteritis (principal); R19.7 Diarrhea, unspecified; I73.9 Peripheral vascular disease, unspecified; N18.30 Chronic kidney disease, stage 3 unspecified; R51.9 Headache, unspecified
CPT/HCPCS: 36415; 80053; 82607; 82746; 83036; 84443; 85025; 85652; 86038; 86141; 86431; 86704; 86706; 86709; 86803; 87340; 87389

== ENCOUNTER 2024-04-27 13:23 | Outpatient (REF) | payer OTHER, SELFPAY ==
--- OUTSIDE RECORDS SUMMARY | 2024-04-27 13:25 | XMS_ITS ---
Author Organization [facility] Address [address] [place] [phone] Care Team Providers Care Make Up Editor Name Role Phone ELLA MICHAEL Primary Care Provider REASON FOR VISIT [facility] request Encounters Encounter Location Date Provider Diagnosis [facility] [address] [address] 04/16/2024 ELLA MICHAEL Plan Of Treatment Next Appt Details Provider Name:ELLA MICHAEL , 05/23/2024 09:30:00 AM, [address] [address], [place], [address], Progress Notes * ZOIE SWEENEY HDOB: 3 (63 yo F)Acc No.[id number]:04/16/2024 Patient:?ZOIE SWEENEY :1960???Age:63 Y???Sex:Female Address:[address] [place] [phone] * true * Date:? Generated for Jaylyni daniel/Nataliia/eTransmitting on:?04/27/2024 01:25 PM EST
--- OUTSIDE RECORDS SUMMARY | 2024-04-27 13:25 | XMS_ITS ---
Author Organization [facility] Address [address] [place] [id number] Care Team Providers Care Metropolitan Editor Name Role Phone ELLA MICHAEL Primary Care Provider [phone] REASON FOR VISIT Montelukast Sodium Medications Medication SIG (Take, Route, Frequency, Duration) Notes Start Date End Date Status Montelukast Sodium 10 mg TAKE 1 TABLET B Y MOUTH ONCE A DAY for 30 days Active Encounters Encounter Location Date Provider Diagnosis [address] [address] 04/16/2024 ELLA MICHAEL Plan Of Treatment Medication Medication Name Sig Start Date Stop Date Notes Montelukast Sodium 10 mg TAKE 1 TABLET B Y MOUTH ONCE A DAY for 30 days Next Appt Details Provider Name:ELLA MICHAEL , 05/23/2024 09:30:00 AM, [address] [place] [address], [place], [phone], Progress Notes * ZOIE SWEENEY HDOB: 3 (63 yo F)Acc No.[id number]:04/16/2024 Patient:?ZOIE SWEENEY :1960???Age:63 Y???Sex:Female Address:[address] [place] [id number] * Refills? Refill Montelukast Sodium Tablet, 10 mg, 90 Tablet, TAKE 1 TABLET BY MOUTH ONCE A DAY, 30 days, Refills=5 * true * Date:? Generated for Hood sanchez/Nataliia/eTransmitting on:?04/27/2024 01:25 PM EST
--- OUTSIDE RECORDS SUMMARY | 2024-04-27 13:25 | XMS_ITS ---
Author Organization [facility] Address [address] [facility] [address] [place] [address] Care Team Providers Care Account Resolution Analyst Name Role Phone ELLA MICHAEL Primary Care Provider [phone] Adolfo Vilchis Unavailable [phone] Allergies Allergen (clinical drug ingredient) Drug/Non Drug [...] TIMES A DAY DIRECTED for 30 Active Zedbazca-Nsepsttpn-HK 1 % 4 drops into affected ear Otic Three times a day for 7 days 05/31/2023 Active Meclizine HCl 25 MG 1 tablet as needed Orally every 12 hrs for 10 days 05/31/2023 Active True Comfort Pen Bidwell 32G X 4 MM USE TO INJECT insulin 5 TIMES A DAY for 25 Active Lidocaine 5 % Apply 1 patch to the affected area for 12 hours a day. Remove for 12 hours. NEEDED FOR most painful AREA for 30 Active Rbprxjvv-Micgbvqqw-DK 1 % 4 drops into affected ear [...] Status W/U Status Risk Notes Problem Dysphagia (69820094) Dysphagia, unspecified (R13.10) Active confirmed Problem Urinary incontinence (715074373) Urinary incontinence, unspecified type (R32) Active confirmed Vital Signs Temperature 97.1 degrees Fahrenheit 04/18/20 Oximetry 91 % 04/18/2024 Heart Rate 88 /min 04/18/2024 Blood pressure systolic 130 mm Hg 04/18/20 Blood pressure diastolic 74 mm Hg 024 Weight 212.8 lbs 04/18/2024 BMI 38.62 kg/m2 04/18/2024 Height 62.24 in 04/18/2024 Encounters Encounter Location Date Provider Diagnosis [facility] [address] [phone] 04/18/2024 Adolfo Vilchis Diabetes mellitus du e [...] afternoon for breakthrough pains. She follows with [facility] Dr. Iraheta. Chronic kidney disease stage 3. -She does not appear to be in volume overload. Advised appropriate hydration. Avoid NSAIDs. She sees Dr. Lakhani. Asthma. -She uses her inhalers as needed. Follows with Dr. [facility] Generalized anxiety disorder. -Mood is stable on Lorazepam 3 times a day. She has a psychiatrist and a therapist. GERD/gastropares is/dysphagia - Currently she is on omperazole 20m and Reglan 10 MG twice a day. I have increased omperazole to 40mg and advised patient to follow-up with her GI at [place]. She has an appt in May. MUSA: [...] afternoon for breakthrough pains. She follows with [facility] Dr. Iraheta. Chronic kidney disease stage 3. -She does not appear to be in volume overload. Advised appropriate hydration. Avoid NSAIDs. She sees Dr. Lakhani. Asthma. -She uses her inhalers as needed. Follows with Dr. [facility] Generalized anxiety disorder. -Mood is stable on Lorazepam 3 times a day. She has a psychiatrist and a therapist. GERD/gastropares is/dysphagia - Currently she is on omperazole 20m and Reglan 10 MG twice a day. I have increased omperazole to 40mg and advised patient to follow-up with her GI at [place]. She has an appt in May. MUSA: [...] afternoon for breakthrough pains. She follows with [facility] Dr. Iraheta. Chronic kidney [...] patient to follow-up with her GI at [place]. She has an appt in May. MUSA: [...] afternoon for breakthrough pains. She follows with [facility] Dr. Iraheta. Chronic kidney [...] patient to follow-up with her GI at [place]. She has an appt in May. MUSA: [...] afternoon for breakthrough pains. She follows with [facility] Dr. Iraheta. Chronic kidney disease stage 3. -She does not appear to be in volume overload. Advised appropriate hydration. Avoid NSAIDs. She sees Dr. Lakhani. Asthma. -She uses her inhalers as needed. Follows with Dr. [facility] Generalized anxiety disorder. -Mood is stable on Lorazepam 3 times a day. She has a psychiatrist and a therapist. GERD/gastropares is/dysphagia - Currently she is on omperazole 20m and Reglan 10 MG twice a day. I have increased omperazole to 40mg and advised patient to follow-up with her GI at [place]. She has an appt in May. MUSA: [...] afternoon for breakthrough pains. She follows with [facility] Dr. Iraheta. Chronic kidney disease stage 3. -She does not appear to be in volume overload. Advised appropriate hydration. Avoid NSAIDs. She sees Dr. Lakhani. Asthma. -She uses her inhalers as needed. Follows with Dr. [facility] Generalized anxiety disorder. -Mood is stable on Lorazepam 3 times a day. She has a psychiatrist and a therapist. GERD/gastropares is/dysphagia - Currently she is on omperazole 20m and Reglan 10 MG twice a day. I have increased omperazole to 40mg and advised patient to follow-up with her GI at [place]. She has an appt in May. MUSA: [...] afternoon for breakthrough pains. She follows with [facility] Dr. Iraheta. Chronic kidney disease stage 3. -She does not appear to be in volume overload. Advised appropriate hydration. Avoid NSAIDs. She sees Dr. Lakhani. Asthma. -She uses her inhalers as needed. Follows with Dr. [facility] Generalized anxiety disorder. -Mood is stable on Lorazepam 3 times a day. She has a psychiatrist and a therapist. GERD/gastropares is/dysphagia - Currently she is on omperazole 20m and Reglan 10 MG twice a day. I have increased omperazole to 40mg and advised patient to follow-up with her GI at [place]. She has an appt in May. MUSA: [...] afternoon for breakthrough pains. She follows with [facility] Dr. Iraheta. Chronic kidney disease stage 3. -She does not appear to be in volume overload. Advised appropriate hydration. Avoid NSAIDs. She sees Dr. Lakhani. Asthma. -She uses her inhalers as needed. Follows with Dr. [facility] Generalized anxiety disorder. -Mood is stable on Lorazepam 3 times a day. She has a psychiatrist and a therapist. GERD/gastropares is/dysphagia - Currently she is on omperazole 20m and Reglan 10 MG twice a day. I have increased omperazole to 40mg and advised patient to follow-up with her GI at [place]. She has an appt in May. MUSA: [...] afternoon for breakthrough pains. She follows with [facility] Dr. Iraheta. Chronic kidney disease stage 3. -She does not appear to be in volume overload. Advised appropriate hydration. Avoid NSAIDs. She sees Dr. Lakhani. Asthma. -She uses her inhalers as needed. Follows with Dr. [facility] Generalized anxiety disorder. -Mood is stable on Lorazepam 3 times a day. She has a psychiatrist and a therapist. GERD/gastropares is/dysphagia - Currently she is on omperazole 20m and Reglan 10 MG twice a day. I have increased omperazole to 40mg and advised patient to follow-up with her GI at [place]. She has an appt in May. MUSA: [...] afternoon for breakthrough pains. She follows with [facility] Dr. Iraheta. Chronic kidney disease stage 3. -She does not appear to be in volume overload. Advised appropriate hydration. Avoid NSAIDs. She sees Dr. Lakhani. Asthma. -She uses her inhalers as needed. Follows with Dr. [facility] Generalized anxiety disorder. -Mood is stable on Lorazepam 3 times a day. She has a psychiatrist and a therapist. GERD/gastropares is/dysphagia - Currently she is on omperazole 20m and Reglan 10 MG twice a day. I have increased omperazole to 40mg and advised patient to follow-up with her GI at [place]. She has an appt in May. MUSA: [...] afternoon for breakthrough pains. She follows with [facility] Dr. Iraheta. Chronic kidney disease stage 3. -She does not appear to be in volume overload. Advised appropriate hydration. Avoid NSAIDs. She sees Dr. Lakhani. Asthma. -She uses her inhalers as needed. Follows with Dr. [facility] Generalized anxiety disorder. -Mood is stable on Lorazepam 3 times a day. She has a psychiatrist and a therapist. GERD/gastropares is/dysphagia - Currently she is on omperazole 20m and Reglan 10 MG twice a day. I have increased omperazole to 40mg and advised patient to follow-up with her GI at [place]. She has an appt in May. MUSA: [...] afternoon for breakthrough pains. She follows with [facility] Dr. Iraheta. Chronic kidney [...] patient to follow-up with her GI at [place]. She has an appt in May. MUSA: [...] afternoon for breakthrough pains. She follows with [facility] Dr. Iraheta. Chronic kidney [...] patient to follow-up with her GI at [place]. She has an appt in May. MUSA: [...] Pending Test Test Name Order Date Albumin/Creatinine Ratio,[id number] Lipid Panel-[id number] 04/18/2024 Comp. Metabolic Panel [id number] 2023 Next Appt Details Follow Up: schedule Rosanne flores son: Provider Name:ELLA MICHAEL , 05/23/2024 09:30:00 AM, [address] [place] [address], [phone], Procedure Notes * Category Sub-Category Detail Notes Urinalysis Protein: Negative Ketones: Trace Leukocytes: Negative Nitrates: Negative pH: 6 Spec Bennett: 1.010 Glucose: Negative Blood: Negative Bilirubin: Negative Urobili: Negative Progress Notes * CLAUDIA MARIBELL HDOB: 3 (63 yo F)Acc No.[id number]:04/18/2024 Progress Notes Patient:?MARIBELL TAYLOR Provider:?Adolfo Vilchis DOB:1960???Age:63 Y???Sex:Female D ate:04/18/2024 Address:[address] [place] [address] [place] [id number] Pcp:ELLA MICHAEL Subjective: * Chief Complaints: * [...] ONCE A DAY DIRECTED True Comfort Pen Bidwell 32G X 4 MM Miscellaneous USE TO INJECT insulin 5 TIMES A DAY Alcohol Pads 70 % Pad USE TOPICALLY THREE TIMES DAILY DIRECTED Lidocaine 5 % Patch Apply 1 patch to the affected area for 12 hours a day. Remove for 12 hours. NEEDED FOR most painful AREA Meclizine HCl 25 MG Tablet 1 tablet as needed Orally every 12 hrs Wfsceovp-Mqzddwvzc-OX 1 % Solution 4 drops into affected [...] A DAY DIRECTED Taking True Comfort Pen Bidwell 32G X 4 MM Miscellaneous USE TO [...] as needed Orally every 12 hrs Taking Yevioemn-Ugvciwexs-ZU 1 % Solution 4 drops into affected [...] into affected ear Otic Once a day Fmzlokfs-Xxdzammdl-HI 1 % Solution 4 drops into affected [...] affected ear Otic Once a day Not-Taking Vzsstohx-Zhviyqskq-IC 1 % Solution 4 drops into affected [...] Ht: 62.24 in. * ???Past Orders: ???Lab:Hemoglobin [id number] (Order Date - 02/16/2024) (Collection Date & [...] amputation left leg below knee joint.?FEMALE GENITOURINARY:?__.?MALE GENITOURINARY:?__.?Software Installer? .? Assessment: * Assessment: 1.?Diabetes mellitus due [...] afternoon for breakthrough pains. She follows with [facility] Dr. Iraheta. Chronic kidney disease stage 3. -She does not appear to be in volume overload. Advised appropriate hydration. Avoid NSAIDs. She sees Dr. Lakhani. Asthma. -She uses her inhalers as needed. Follows with Dr. [facility] Generalized anxiety disorder. -Mood is stable on Lorazepam 3 times a day. She has a psychiatrist and a therapist. GERD/gastroparesis/dysphagia - Currently she is on omperazole 20m and Reglan 10 MG twice a day. I have increased omperazole to 40mg and advised patient to follow-up with her GI at [place]. She has an appt in May. MUSA: [...] * Treatment: 2.?Essential (primary) hyper tension?LAB: Albumin/Creatinine Ratio,Urine-[id number] 3.?Dysphagia, unspecified? Start Omeprazole Capsule Delayed Release, 40 MG, 1 capsule 1/2 to 1 hour before morning meal, Orally, Once a day, 30 days, 30, Refills 3.?? * Procedures:?Urinalysis:?Glucose:?Negative.?Bilirubin:?Negative.?Ketones:?Trace.?Spec Bennett:?1.010.?Blood:?Negative.?pH:?6.?Protein:?Negative.?Urobili:?Negative.?Nitrates:?Negative.?Leukocytes:?Negative.? * Procedure Codes:?3078F DIAST BP < 80 MM [id number] SYST BP GE 130 - 139MM [id number] URINALYSIS, AUTO, W/O SCOPE, Modifiers: QW * Follow Up:?schedule sandra * * Sign off status: Completed true * Provider:?Adolfo Vilchis Date:?04/18/20 24 Generated for Hood sanchez/Nataliia/eTransmitting on:?04/27/2024 01:25 PM EST History and Physical Notes * [...] Normal Psychiatry Normal OROPHARYNX Normal SINUSES Normal Software Installer
--- OUTSIDE RECORDS SUMMARY | 2024-04-27 13:26 | XMS_ITS | Patient Health Record ---
Author Organization [facility] Address [address] [place] [address] Care Team Providers Care Occupational Therapy Instructor Name Role Phone ELLA MICHAEL Primary Care Provider Adolfo Vilchis Unavailable [phone] Allergies Allergen (clinical drug ingredient) Drug/Non Drug [...] RFX Reviewed date:11/21/2023 08:01:23 AM Interpretation: Performing Lab:[facility], [address] [place] [address], Phone - [phone], Director - Sheri Notes/Report: ANALGESICS/NSAIDS +POSITIVE+ Acetaminophen PRESENT Hemoglobin [id number] Reviewed date:11/15/2023 07:52:21 AM Interpretation: Performing Lab:[facility], [address] [place] [address], Phone - [phone], Director - Mohsen Notes/Report: Hemoglobin A1c 6.6 4.8-5.6 % . Prediabetes: 5.7 - 6.4 Diabetes: >6.4 Glycemic control for adults with diabetes: <7.0 ToxAssure Flex 23, Urine-[id number] Reviewed date:11/23/2023 09:11:12 AM Interpretation: Performing Lab:[facility], [address] [place] [address], Phone - [phone], Director - Sheri Notes/Report: Summary Report FINAL [...] Interpretation: Performing Lab:Testing performed or reported by [facility], a Service of [facility], [address] [place] [address] Tim Watson MD, Meat S[employer] [facility]# [id number] Notes/Report: HEMOGLOBIN A1C 6.3 (4.0-5.6) % MONITORING: In known diabetic patients, hemoglobin A1c targets should be discussed with health care provider. DIAGNOSTIC USE: The [place] Diabetes [employer] (ADA) and the World Health [...] Interpretation: Performing Lab:Testing performed or reported by [facility], a Service of [address] [address] Tim Watson MD, Meat Slicer [facility]# [id number] Notes/Report: MICRO-ALBUMIN <12.0 (<20) MG/L The urine microalbumin test is designed to monitor renal function. When screening for Bence Hinds proteinuria, urine electrophoresis is recommended. MALB/CREAT RATIO Unable to calculate (0-20) MG/GM URINE CREAT FOR MICRO ALBUMIN 116.5 LIPID PANEL Reviewed date:06/02/2023 03:03:28 PM Interpretation: Performing Lab:Testing performed or reported by [facility], a Service of [address] [address] Tim Watson MD, Meat S[employer] [facility]# [id number] Notes/Report: CHOLESTEROL, TOTAL 105 (<200) MG/DL TRIGLYCERIDE 160 (<150) MG/DL HDL CHOL 34 (>39) MG/DL LDL CHOLESTEROL, CALCULATED 39 (0-130) MG/DL NON HDL CHOLESTEROL (CALC) 71 (<160) MG/DL COMPREHENSIVE METABOLIC PANE L Reviewed date:06/02/2023 03:03:20 PM Interpretation: Performing Lab:Testing performed or reported by [facility], a Service of [address] [address] Tim Watson MD, Meat S[employer]er [facility]# [id number] Notes/Report: GLUCOSE 151 (70-99) MG/DL BUN 15 [...] from serum creatinine, age and sex. Hemoglobin [id number] Reviewed date:02/20/2024 08:28:37 AM Interpretation: Performing Lab:[facility], [address] [place] [address], Phone - [phone], Director - Mohsen Notes/Report: Hemoglobin A1c 6.1 4.8-5.6 % . Prediabetes: 5.7 - 6.4 Diabetes: >6.4 Glycemic control for adults with diabetes: <7.0 Reason For Referral Reason essential tremors- D r. [place] Diagnosis 1 Essential tremor (G2 5.0) Referral Organization [facility] Referring Provider First Name ELLA Referring Provider Last Name [facility] Referring Provider Speciality Internal edicine Referred Provider Specialty Neurology General Notes Referral faxed - Dep t will call patient for scheduling.Janene Latraya 09/27/2023 02:58:10 PM > Referral Priority Routine Reason Evaluation and manag ement - Dr. Haley Diagnosis 1 Arthralgia of tempor omandibular joint, unspecified side (M26.629) Referral Organization [facility] Referring Provider First Name ELLA Referring Provider Last Name [facility] Referring Provider Speciality Internal edicine Referred Provider Specialty Physical Med icine and Rehabilitation General Notes Referral faxed - Dep t will call patient for scheduling.Janene Latraya 09/21/2023 12:07:16 PM > Referral Priority Routine Reason Evaluation and manag ement Juma Cruz Diagnosis 1 Other hammer toe(s) (acquired), right foot (M20.41) Referral Organization [facility] Referring Provider First Name JARAMILLO Referring Provider Last Name GU Referring Provider Speciality Internal M edicine Referred Provider Specialty Podiatry General Notes Referral sent to [facility] in [place] - Office will call patient for scheduling.Janene Latraya 02/02/2024 09:36:19 AM > Referral Priority Routine Reason Evaluation and manag jane Iraheta Diagnosis 1 Radiculopathy, lumbo sacral region (M54.17) Diagnosis 2 Pain in right should er (M25.511) Diagnosis 3 Pain in left wrist ( M25.532) Diagnosis 4 Pain in left hand (M 79.642) Diagnosis 5 Pain in right foot ( M79.671) Diagnosis 6 Low back pain (M54.5 ) Referral Organization [facility] Referring Provider First Name ELLA Referring Provider Last Name [facility] Referring Provider Speciality Internal M edicine Referred Provider Specialty Pain Medicin e General Notes Referral sent to [facility] in [place] - Office will call patient for scheduling., Naty Watters 02/21/2024 10:54:41 AM > Referral Priority Routine Medications Medication SIG (Take, Route, Frequency, Duration) Notes Start Date End Date Status Zofran 4 MG as directed Orally for 7 days 07/07/2018 Unknown Fluticasone Propionate 50 MCG/ACT SPRAY TWICE INTO EACH NOSTRIL ONCE A DAY for 30 Unknown True Comfort Pen Lawrence 32G X 4 MM USE TO INJECT insulin 5 TIMES A DAY for 25 Active Lantus SoloStar 100 UNIT/ML INJECT 90 UNITS UNDER THE SKIN ONCE A DAY DIRECTED for 30 Active clonazePAM 1 MG 2 tablets in the am and 2 tablets in pm Orally twice a day CHD Unknown Fluconazole 50 MG 1 tablet Orally Daily for 10 day(s) 06/16/2020 Unknown hydrOXYzine HCl 25 MG 1 tablet Orally Once a day for 90 days Active Lsfsspbt-Vilsnybpt-QU 1 % 4 drops into affected ear Otic Three times a day for 7 days 03/18/2023 Not-Taking Lidocaine 5 % 1 patch remove after 12 hours Externally Once a day for 90 days Active Ofloxacin 0.3 % 10 drops into affected [...] TIMES A DAY DIRECTED for 30 Active Bxpldcql-Xxjmxdblk-BH 1 % 4 drops into affected ear [...] BY MOUTH ONCE DAILY for 30 Active Albuterol Sulfate HFA 108 (90 Base) [...] W/U Status Risk Notes Problem Diabetic neuropathy (830788642) Diabetes mellitus due to underlying condition with diabetic neuropathy, unspecified (E08.40) Active confirmed Problem Morbid obesity (disorder) (719115925) Morbid (severe) obesity due to excess calories (E66.01) Active confirmed Problem Anxiety disorder (280830040) Anxiety disorder, unspecified (F41.9) Active confirmed Problem Essential tremor (781038718) Essential tremor (G25.0) Active confirmed Problem Insomnia (113853993) Insomnia, unspecified (G47.00) Active confirmed Problem Obstructive sleep apnea syndrome (26788789) Obstructive sleep apnea (adult) (pediatric) (G47.33) Active confirmed Problem Essential hypertension (53994266) Essential (primary) hypertension (I10) Active confirmed Problem Peripheral vascular disease (336676725) Peripheral vascular disease, unspecified (I73.9) Active confirmed Problem Embolism from thrombosis of vein of lower extremity (598900810) Chronic embolism and thrombosis of unspecified deep veins of unspecified lower extremity (I82.509) Active confirmed Problem Uncomplicated mild persistent asthma (846652581) Mild persistent asthma, uncomplicated (J45.30) Active confirmed Problem Polyp of colon (70402995) Polyp of colon (K63.5) Active confirmed Problem Acquired hammer toe of right foot (6986452656994013) Other hammer toe(s) (acquired), right foot (M20.41) Active confirmed Problem Shoulder joint pain (642114909) Pain in left shoulder (M25.512) Active confirmed Problem Lumbosacral radiculopathy (7219726) Radiculopathy, lumbosacral region (M54.17) Active confirmed Problem Dysphagia (36967673) Dysphagia, unspecified (R13.10) Active confirmed Problem Paresthesia (finding) (73956541) Paresthesia of skin (R20.2) Active confirmed Problem Amputated below knee (038157203) Acquired absence of left leg below knee (Z89.512) Active confirmed Problem Chronic kidney disease stage 3 (disorder) (720709208) Chronic kidney disease, stage 3 unspecified (N18.30) Active confirmed Problem 47097287 Type 2 diabetes mellitus with other specified complication, without long-term current use of insulin (E11.69) Active confirmed Problem Urinary incontinence (234478177) Urinary incontinence, unspecified type (R32) Active confirmed Problem Gastroesophageal reflux disease (878455035) Gastroesophageal reflux disease, unspecified whether esophagitis present (K21.9) Active confirmed Vital Signs Heart Rate 88 /min 04/18/2024 Temperature 97.1 degrees Fahrenheit 04/18/2024 Blood pressure diastolic 74 mm Hg 04/18/2024 Oximetry 91 % 04/18/2024 Height 62.24 in 04/18/2024 Blood pressure systolic 130 mm Hg 04/18/2024 Weight 212.8 lbs 04/18/2024 BMI 38.62 kg/m2 04/18/2024 Encounters Encounter Location Date Provider Diagnosis [address] [place] [address] 05/17/2023 ELLA MICHAEL Encounter for genera l [...] Chronic kidney disease, stage 3 unspecified N18.[address] [place] [address] 08/18/2023 ELLA MICHAEL Radiculopathy, lumbosacral region M54.17 ; Type 2 diabetes mellitus with other specified complication, without long-term current use of insulin E11.69 ; Essential (primary) hypertension I10 ; Anxiety disorder, unspecified F41.9 ; Insomnia, unspecified G47.00 and Left temporomandibular joint disorder, unspecified M26.[address] [place] [address] 09/01/2023 JARAMILLO GUL Otalgia, left ear H9 2.[address] [place] [address] 09/21/2023 JARAMILLO GUL Local infection of t he skin and subcutaneous tissue, unspecified L08.9 ; Left temporomandibular joint disorder, unspecified M26.602 and Essential tremor G25.[address] [place] [address] 10/06/2023 JARAMILLO GUL Left temporomandibul ar joint disorder, unspecified M26.602 and Otalgia, left ear H92.[address] [place] [address] 11/15/2023 JARAMILLO GUL Radiculopathy, lumbosacral region M54.17 ; Diabetes mellitus due to underlying condition with diabetic neuropathy, unspecified E08.40 ; Essential (primary) hypertension I10 and Chronic kidney disease, stage 3 unspecified N18.[address] [place] [address] 12/06/2023 JARAMILLO GUL Mild persistent asth ma, uncomplicated J45.[address] [address] 02/01/2024 JARAMILLO GUL Other conjunctivitis H10.89 ; Left temporomandibular joint disorder, unspecified M26.602 ; Radiculopathy, lumbosacral region M54.17 and Other hammer toe(s) (acquired), right foot M20.[address] [address] 02/21/2024 JARAMILLO GUL Radiculopathy, lumbosacral region M54.17 ; Diabetes mellitus due to underlying condition with diabetic neuropathy, unspecified E08.40 ; Essential (primary) hypertension I10 and Chronic kidney disease, stage 3 unspecified N18.[address] [place] [address] 02/29/2024 Adolfo Efraínindia Acute URI J06.9 [facility] [address] [place] [address] 04/18/2024 Mitchellkarolynnas Kennypolykuldeep Diabetes mellitus du e to underlying condition [...] of micturition R35.0 and Epidermal cyst L72.[address] [place] [address] 04/28/[address] [place] [address] 05/31/[address] [place] [address] 05/31/[address] [place] [address] 05/31/[address] [place] [address] 05/31/[address] [place] [address] 06/07/[address] [place] [address] 06/10/[address] [place] [address] 06/16/2023 [facility] [address] [place] [address] 08/04/2023 JARAMILLO L [facility] [address] [place] [address] 08/18/2023 JARAMILLO L [facility] [address] [place] [address] 08/22/2023 JARAMILLO L [facility] [address] [place] [address] 08/29/2023 JARAMILLO L [facility] [address] [place] [address] 09/22/2023 JARAMILLO L Local infection of t he skin and subcutaneous tissue, unspecified L08.9 [facility] [address] [place] [address] 09/29/2023 [facility] [address] [place] [address] 10/04/2023 [facility] [address] [place] [address] 11/14/2023 [facility] [address] [facility] [place] [address] 12/05/2023 [facility] [address] [place] [address] 12/07/2023 JARAMILLO L [facility] [address] [place] [address] 12/19/2023 JARAMILLO GUL [facility] [address] [place] [address] 01/02/2024 [facility] [address] [place] [address] 01/10/2024 JARAMILLO L [facility] [address] [facility] [place] [address] 01/25/[address] [place] [address] 02/02/2024 ELLA MICHAEL Other conjunctivitis H10.[address] [place] [address] 02/07/[address] [place] [address] 02/16/2024 ELLA MICHAEL Diabetes mellitus du e to underlying condition with diabetic neuropathy, unspecified E08.[address] [place] [address] 02/23/2024 [address]ARAM[address] [place] [address] 02/28/2024 [address]ARAM[address] [place] [address] 03/05/2024 Adolfo Vilchis [address] [place] [address] 04/16/[address] [place] [address] 04/16/2024 ELLA MICHAEL Assessments Encounter Date Diagnosis [...] on right medications. She has seen her card assembler in the past 1 year. Foot care [...] cancer screening. She follows up with her field marketer for breast and pelvic exams. Eye screening. She sees her card assembler regularly. Dental screening. She sees dentist at [...] on right medications. She has seen her card assembler in the past 1 year. Foot care [...] this note under HIPAA compliance and under [place] law mandated for scribe services. Patient aware of service. Verbal consent and written consent taken from the patient. Patient understands and verbalizes understanding of the scribes services and all questions answered regarding scribes services. Patient agrees to use of scribes services. 09/21/2023 Local infection of the skin and subcutaneous tissue, unspecified (ICD-10 - L08.9) Mairbell is a 62-year-old lady with DM2, hypertension, [...] this note under HIPAA compliance and under [place] law mandated for scribe services. Patient aware [...] this note under HIPAA compliance and under [place] law mandated for scribe services. Patient aware [...] is here for follow-up after visit to [facility]. Records not available at this point. She complains of left TMJ pain and discomfort and left ear pain. Plan is as follows Left TMJ pain. She is currently on oxycodone and she also use nhkq-bdo-ejvywmk Tylenol arthritis with no significant relief. We will give her low-dose prednisone on trial basis for 7 days. She has completed physical therapy for TMJ and she has seen dentist for mouth guard. CT scan of the head reviewed with the patient and there were no acute findings. She has appointment with neurologist at [facility] for headaches Left ear pain. She had [...] is here for follow-up after visit to [facility]. Records not available at this point. She complains of left TMJ pain and discomfort and left ear pain. Plan is as follows Left TMJ pain. She is currently on oxycodone and she also use qvvj-onp-kgxvpbn Tylenol arthritis with no significant relief. We will give her low-dose prednisone on trial basis for 7 days. She has completed physical therapy for TMJ and she has seen dentist for mouth guard. CT scan of the head reviewed with the patient and there were no acute findings. She has appointment with neurologist at [facility] for headaches Left ear pain. She had [...] on right medications. She has seen her card assembler in the past 1 year. Foot care [...] this note under HIPAA compliance and under [place] law mandated for scribe services. Patient aware [...] on right medications. She has seen her card assembler in the past 1 year. Foot care [...] this note under HIPAA compliance and under [place] law mandated for scribe services. Patient aware [...] this note under HIPAA compliance and under [place] law mandated for scribe services. Patient aware [...] on right medications. She has seen her card assembler in the past 1 year. Foot care [...] this note under HIPAA compliance and under [place] law mandated for scribe services. Patient aware [...] this note under HIPAA compliance and under [place] law mandated for scribe services. Patient aware [...] negative and it was sent to [facility] for further evaluation and it was reported [...] this note under HIPAA compliance and under [place] law mandated for scribe services. Patient aware [...] negative and it was sent to [facility] for further evaluation and it was reported [...] this note under HIPAA compliance and under [place] law mandated for scribe services. Patient aware [...] on right medications. She has seen her card assembler in the past 1 year. Foot care [...] because she is on temazepam. Referred to [facility] Dr. Iraheta. Chronic kidney [...] this note under HIPAA compliance and under [place] law mandated for scribe services. Patient aware [...] afternoon for breakthrough pains. She follows with [facility] Dr. Iraheta. Chronic kidney disease stage 3. -She does not appear to be in volume overload. Advised appropriate hydration. Avoid NSAIDs. She sees Dr. Lakhani. Asthma. -She uses her inhalers as needed. Follows with Dr. [facility] Generalized anxiety disorder. -Mood is stable on Lorazepam 3 times a day. She has a psychiatrist and a therapist. GERD/gastroparesis/ dysphagia - Currently she is on omperazole 20m and Reglan 10 MG twice a day. I have increased omperazole to 40mg and advised patient to follow-up with her GI at [place]. She has an appt in May. MUSA: [...] on right medications. She has seen her card assembler in the past 1 year. Foot care [...] because she is on temazepam. Referred to [facility] Dr. Iraheta. Chronic kidney [...] this note under HIPAA compliance and under [place] law mandated for scribe services. Patient aware [...] afternoon for breakthrough pains. She follows with [facility] Dr. Iraheta. Chronic kidney disease stage 3. -She does not appear to be in volume overload. Advised appropriate hydration. Avoid NSAIDs. She sees Dr. Lakhani. Asthma. -She uses her inhalers as needed. Follows with Dr. Shipley-[facility] Generalized anxiety disorder. -Mood is stable on Lorazepam 3 times a day. She has a psychiatrist and a therapist. GERD/gastroparesis/ dysphagia - Currently she is on omperazole 20m and Reglan 10 MG twice a day. I have increased omperazole to 40mg and advised patient to follow-up with her GI at [place]. She has an appt in May. MUSA: [...] on right medications. She has seen her card assembler in the past 1 year. Foot care [...] because she is on temazepam. Referred to [facility] Dr. Iraheta. Chronic kidney [...] this note under HIPAA compliance and under [place] law mandated for scribe services. Patient aware [...] on right medications. She has seen her card assembler in the past 1 year. Foot care [...] this note under HIPAA compliance and under [place] law mandated for scribe services. Patient aware [...] negative and it was sent to [facility] for further evaluation and it was reported [...] this note under HIPAA compliance and under [place] law mandated for scribe services. Patient aware [...] this note under HIPAA compliance and under [place] law mandated for scribe services. Patient aware [...] on right medications. She has seen her card assembler in the past 1 year. Foot care [...] this note under HIPAA compliance and under [place] law mandated for scribe services. Patient aware [...] on right medications. She has seen her card assembler in the past 1 year. Foot care [...] cancer screening. She follows up with her field marketer for breast and pelvic exams. Eye screening. She sees her card assembler regularly. Dental screening. She sees dentist at [...] on right medications. She has seen her card assembler in the past 1 year. Foot care [...] cancer screening. She follows up with her field marketer for breast and pelvic exams. Eye screening. She sees her card assembler regularly. Dental screening. She sees dentist at [...] on right medications. She has seen her card assembler in the past 1 year. Foot care [...] this note under HIPAA compliance and under [place] law mandated for scribe services. Patient aware [...] on right medications. She has seen her card assembler in the past 1 year. Foot care [...] this note under HIPAA compliance and under [place] law mandated for scribe services. Patient aware [...] negative and it was sent to [facility] for further evaluation and it was reported [...] this note under HIPAA compliance and under [place] law mandated for scribe services. Patient aware [...] afternoon for breakthrough pains. She follows with [facility] Dr. Iraheta. Chronic kidney disease stage 3. -She does not appear to be in volume overload. Advised appropriate hydration. Avoid NSAIDs. She sees Dr. Lakhani. Asthma. -She uses her inhalers as needed. Follows with Dr. Shipley-[facility] Generalized anxiety disorder. -Mood is stable on Lorazepam 3 times a day. She has a psychiatrist and a therapist. GERD/gastroparesis/ dysphagia - Currently she is on omperazole 20m and Reglan 10 MG twice a day. I have increased omperazole to 40mg and advised patient to follow-up with her GI at [place]. She has an appt in May. MUSA: [...] on right medications. She has seen her card assembler in the past 1 year. Foot care [...] because she is on temazepam. Referred to [facility] Dr. Iraheta. Chronic kidney [...] this note under HIPAA compliance and under [place] law mandated for scribe services. Patient aware [...] afternoon for breakthrough pains. She follows with [facility] Dr. Iraheta. Chronic kidney disease stage 3. -She does not appear to be in volume overload. Advised appropriate hydration. Avoid NSAIDs. She sees Dr. Lakhani. Asthma. -She uses her inhalers as needed. Follows with Dr. Shipley-[facility] Generalized anxiety disorder. -Mood is stable on Lorazepam 3 times a day. She has a psychiatrist and a therapist. GERD/gastroparesis/ dysphagia - Currently she is on omperazole 20m and Reglan 10 MG twice a day. I have increased omperazole to 40mg and advised patient to follow-up with her GI at [place]. She has an appt in May. MUSA: [...] on right medications. She has seen her card assembler in the past 1 year. Foot care [...] this note under HIPAA compliance and under [place] law mandated for scribe services. Patient aware [...] on right medications. She has seen her card assembler in the past 1 year. Foot care [...] cancer screening. She follows up with her field marketer for breast and pelvic exams. Eye screening. She sees her card assembler regularly. Dental screening. She sees dentist at [...] on right medications. She has seen her card assembler in the past 1 year. Foot care [...] cancer screening. She follows up with her field marketer for breast and pelvic exams. Eye screening. She sees her card assembler regularly. Dental screening. She sees dentist at [...] on right medications. She has seen her card assembler in the past 1 year. Foot care [...] this note under HIPAA compliance and under [place] law mandated for scribe services. Patient aware [...] afternoon for breakthrough pains. She follows with [facility] Dr. Iraheta. Chronic kidney disease stage 3. -She does not appear to be in volume overload. Advised appropriate hydration. Avoid NSAIDs. She sees Dr. Lakhani. Asthma. -She uses her inhalers as needed. Follows with Dr. Shipley-[facility] Generalized anxiety disorder. -Mood is stable on Lorazepam 3 times a day. She has a psychiatrist and a therapist. GERD/gastroparesis/ dysphagia - Currently she is on omperazole 20m and Reglan 10 MG twice a day. I have increased omperazole to 40mg and advised patient to follow-up with her GI at [place]. She has an appt in May. MUSA: [...] afternoon for breakthrough pains. She follows with [facility] Dr. Iraheta. Chronic kidney disease stage 3. -She does not appear to be in volume overload. Advised appropriate hydration. Avoid NSAIDs. She sees Dr. Lakhani. Asthma. -She uses her inhalers as needed. Follows with Dr. Shipley-[facility] Generalized anxiety disorder. -Mood is stable on Lorazepam 3 times a day. She has a psychiatrist and a therapist. GERD/gastroparesis/ dysphagia - Currently she is on omperazole 20m and Reglan 10 MG twice a day. I have increased omperazole to 40mg and advised patient to follow-up with her GI at [place]. She has an appt in May. MUSA: [...] on right medications. She has seen her card assembler in the past 1 year. Foot care [...] cancer screening. She follows up with her field marketer for breast and pelvic exams. Eye screening. She sees her card assembler regularly. Dental screening. She sees dentist at [...] on right medications. She has seen her card assembler in the past 1 year. Foot care [...] cancer screening. She follows up with her field marketer for breast and pelvic exams. Eye screening. She sees her card assembler regularly. Dental screening. She sees dentist at [...] afternoon for breakthrough pains. She follows with [facility] Dr. Iraheta. Chronic kidney disease stage 3. -She does not appear to be in volume overload. Advised appropriate hydration. Avoid NSAIDs. She sees Dr. Lakhani. Asthma. -She uses her inhalers as needed. Follows with Dr. Shipley-[facility] Generalized anxiety disorder. -Mood is stable on Lorazepam 3 times a day. She has a psychiatrist and a therapist. GERD/gastroparesis/ dysphagia - Currently she is on omperazole 20m and Reglan 10 MG twice a day. I have increased omperazole to 40mg and advised patient to follow-up with her GI at [place]. She has an appt in May. MUSA: [...] afternoon for breakthrough pains. She follows with [facility] Dr. Iraheta. Chronic kidney disease stage 3. -She does not appear to be in volume overload. Advised appropriate hydration. Avoid NSAIDs. She sees Dr. Lakhani. Asthma. -She uses her inhalers as needed. Follows with Dr. Shipley-[facility] Generalized anxiety disorder. -Mood is stable on Lorazepam 3 times a day. She has a psychiatrist and a therapist. GERD/gastroparesis/ dysphagia - Currently she is on omperazole 20m and Reglan 10 MG twice a day. I have increased omperazole to 40mg and advised patient to follow-up with her GI at [place]. She has an appt in May. MUSA: [...] afternoon for breakthrough pains. She follows with [facility] Dr. Iraheta. Chronic kidney disease stage 3. -She does not appear to be in volume overload. Advised appropriate hydration. Avoid NSAIDs. She sees Dr. Lakhani. Asthma. -She uses her inhalers as needed. Follows with Dr. Shipley-[facility] Generalized anxiety disorder. -Mood is stable on Lorazepam 3 times a day. She has a psychiatrist and a therapist. GERD/gastroparesis/ dysphagia - Currently she is on omperazole 20m and Reglan 10 MG twice a day. I have increased omperazole to 40mg and advised patient to follow-up with her GI at [place]. She has an appt in May. MUSA: [...] afternoon for breakthrough pains. She follows with [facility] Dr. Iraheta. Chronic kidney disease stage 3. -She does not appear to be in volume overload. Advised appropriate hydration. Avoid NSAIDs. She sees Dr. Lakhani. Asthma. -She uses her inhalers as needed. Follows with Dr. Shipley-[facility] Generalized anxiety disorder. -Mood is stable on Lorazepam 3 times a day. She has a psychiatrist and a therapist. GERD/gastroparesis/ dysphagia - Currently she is on omperazole 20m and Reglan 10 MG twice a day. I have increased omperazole to 40mg and advised patient to follow-up with her GI at [place]. She has an appt in May. MUSA: [...] afternoon for breakthrough pains. She follows with [facility] Dr. Iraheta. Chronic kidney disease stage 3. -She does not appear to be in volume overload. Advised appropriate hydration. Avoid NSAIDs. She sees Dr. Lakhani. Asthma. -She uses her inhalers as needed. Follows with Dr. Shipley-[facility] Generalized anxiety disorder. -Mood is stable on Lorazepam 3 times a day. She has a psychiatrist and a therapist. GERD/gastroparesis/ dysphagia - Currently she is on omperazole 20m and Reglan 10 MG twice a day. I have increased omperazole to 40mg and advised patient to follow-up with her GI at [place]. She has an appt in May. MUSA: [...] afternoon for breakthrough pains. She follows with [facility] Dr. Iraheta. Chronic kidney disease stage 3. -She does not appear to be in volume overload. Advised appropriate hydration. Avoid NSAIDs. She sees Dr. Lakhani. Asthma. -She uses her inhalers as needed. Follows with Dr. Shipley-[facility] Generalized anxiety disorder. -Mood is stable on Lorazepam 3 times a day. She has a psychiatrist and a therapist. GERD/gastroparesis/ dysphagia - Currently she is on omperazole 20m and Reglan 10 MG twice a day. I have increased omperazole to 40mg and advised patient to follow-up with her GI at [place]. She has an appt in May. MUSA: [...] afternoon for breakthrough pains. She follows with [facility] Dr. Iraheta. Chronic kidney disease stage 3. -She does not appear to be in volume overload. Advised appropriate hydration. Avoid NSAIDs. She sees Dr. Lakhani. Asthma. -She uses her inhalers as needed. Follows with Dr. Shipley-[facility] Generalized anxiety disorder. -Mood is stable on Lorazepam 3 times a day. She has a psychiatrist and a therapist. GERD/gastroparesis/ dysphagia - Currently she is on omperazole 20m and Reglan 10 MG twice a day. I have increased omperazole to 40mg and advised patient to follow-up with her GI at [place]. She has an appt in May. MUSA: [...] UA W/REFLEX MICROSCOPIC & CULTURE 2022 Albumin/Creatinine Ratio,Urine-[id number] Lipid Panel-[id number] 04/18/2024 Comp. Metabolic Panel [id number] 2023 Next Appt Details Provider Name:ELLA MICHAEL , 05/23/2024 09:30:00 AM, [address] [place] [address] [address], [place], [address], Insurance Providers Payer Name Payer Address Payer Phone Subscriber Number Group Number Insured Name Patient Relationship to Insured Coverage Start Date Coverage End Date [facility] [address] [place] [address] [id number] MARIBELL TAYLOR Self - patient is the insured Medical (General) History Medical History History ICD Code hypertension, benign hyperlipidemia IDDM T 2, [facility] Urinary incontinence and she sees Dr. England at [place] Left shoulder pain and she sees Dr. Alida villa and she is also seen Dr. Diaz Asthma and she sees Pul at [facility] Generalized anxiety disorder and she is seen by a psychiatrist and she goes to [facility] Pain management and has seen Dr. Montiel at [facility] in past Peripheral arterial disease and status post amputation below knee joint currently on Coumadin and goes to Coumadin clinic Lumbar radiculopathy on oxycodone 30 mg 3 times a day DVT leg LE sleep apnea see Pul at [facility] Left leg amputation below knee joint Chronic kidney disease stage 3, Dr. Janis smalls Personal history of COVID-19 GI- [facility] Surgical History Surgery Date(Month/Year) rotator cuff tear repair September 2017 wrist surgery below the knee amputation 07 left side for Blood clots 2/2 to OCP and pt was smoking rt toes amputation 2004 right wrist synovial cyst resection, Dr. Henriquez 2021 right carpal tunnel decompression, Dr. Flores hadley 2021 Hospitalization History Reason Date(Month/Year)
[2024-04-27 14:49] LABS: CDiff Gene PCR NEGATIVE (Negative)
[2024-04-27 14:59] LABS: Adenovirus F 40/41 Not Detected (Not Detect.); Astrovirus Not Detected (Not Detect.); Campylobacter Not Detected (Not Detect.); Cryptosporidium Not Detected (Not Detect.); Cyclospora cayetanensis Not Detected (Not Detect.); E. coli EAEC Not Detected (Not Detect.); E. coli EPEC Not Detected (Not Detect.); E. coli ETEC Not Detected (Not Detect.); E. coli STEC Not Detected (Not Detect.); Entamoeba histolytica Not Detected (Not Detect.); Giardia lamblia Not Detected (Not Detect.); Norovirus GI/GII Not Detected (Not Detect.); Plesiomonas shigelloides Not Detected (Not Detect.); Rotavirus A Not Detected (Not Detect.); Salmonella Not Detected (Not Detect.); Sapovirus Not Detected (Not Detect.); Shigella sp./EIEC Not Detected (Not Detect.); Vibrio Not Detected (Not Detect.); Vibrio Cholerae Not Detected (Not Detect.); Yersinia enterocolitica Not Detected (Not Detect.)
== END 2024-04-27 13:24 | disposition home or self-care (01) ==
LOC: HO.LNP 13:23
PROVIDERS: Visit Provider Nurse Practitioner
DX: R19.7 Diarrhea, unspecified (principal)
CPT/HCPCS: 87493; 87507

== ENCOUNTER 2024-05-14 07:22 | Outpatient (REF) | payer OTHER, SELFPAY ==
[2024-05-14 07:38] LABS: MANUAL DIFF FLAG NO
[2024-05-14 08:21] LABS: Basophils Absolute Auto 0.1 X10*3/uL (0.0-0.2); Basophils Percent Auto 0.5 % (0-2); Eosinophils Absolute Auto 0.3 X10*3/uL (0.0-0.4); Eosinophils Percent Auto 3.3 % (0-4); Hematocrit 39.2 % (37.0-47.0); Hemoglobin 12.8 g/dl (12.0-16.0); Imm Gran Abs Auto 0.13 X10*3/uL (0.00-0.03); Imm Gran Pct Auto 1.3 % (0.0-0.4); Lymphocytes Absolute Auto 3.2 X10*3/uL (1.2-4.9); Lymphocytes Percent Auto 32.9 % (20-40); Mean Corpuscular HGB Conc 32.7 g/dl (31.0-35.0); Mean Corpuscular Hemoglobin 31.1 pg (27.0-33.0); Mean Corpuscular Volume 95.1 fL (80.0-98.0); Mean Platelet Volume 9.2 fL (9.4-12.3); Monocytes Absolute Auto 0.6 X10*3/uL (0.1-1.2); Monocytes Percent Auto 6.2 % (2-11); Neutrophils Absolute Auto 5.5 x10*3/uL (2.0-8.3); Neutrophils Percent Auto 55.8 % (45-73); Platelet Count 242 X10*3/uL (160-400); Red Blood Count 4.12 X10*6/uL (4.20-5.50); Red Cell Distribution Width 12.8 % (11.0-16.0); White Blood Count 9.8 X10*3/uL (4.8-10.8)
[2024-05-14 08:56] LABS: Appearance Urine Hazy; Color Urine Yellow; Glucose Urine UA Negative (Negative); Leukocyte Esterase Urine Moderate (2+) (Negative); Nitrite Urine Negative (Negative); PH 5.5 (5.0-9.0); Specific Gravity - Urine >= 1.030 (1.005-1.025); UMIC TRIGGER UA YES; Urine Blood Trace (Negative); Urine Ketones Negative (Negative); Urine Protein Negative (Neg-Trace)
[2024-05-14 09:08] LABS: Bacteria Urine None Seen (None Seen); RBC Urine 0-2 /HPF (0-2)
[2024-05-14 09:15] LABS: Alanine Aminotransferase 42 U/L (0-31); Albumin Level 3.8 g/dL (3.5-5.0); Alkaline Phosphatase 82 U/L (39-117); Anion Gap 14 (12-20); Aspartate Amino Transferase 27 U/L (5-31); Bilirubin Total 0.6 mg/dL (0.0-1.0); Blood Urea Nitrogen 20 mg/dL (9-16); Calcium 9.6 mg/dL (8.4-10.2); Carbon Dioxide 24 mmol/L (22-29); Chloride 107 mmol/L (96-108); Estimated Glomerular Filt Rate 43; Glucose Random 174 mg/dL (60-115); Potassium 4.5 mmol/L (3.3-5.1); Sodium 140 mmol/L (135-145); Total Protein 6.6 g/dL (6.5-8.0)
== END 2024-05-14 07:23 | disposition home or self-care (01) ==
LOC: HO.LAB 07:22
PROVIDERS: Absent Provider Nurse Practitioner Family; PCP Hospitalist; Visit Provider Nurse Practitioner Family
DX: M31.6 Other giant cell arteritis (principal); I73.9 Peripheral vascular disease, unspecified; N18.30 Chronic kidney disease, stage 3 unspecified; R51.9 Headache, unspecified; R39.9 Unspecified symptoms and signs involving the genitourinary system; R32 Unspecified urinary incontinence
CPT/HCPCS: 36415; 80053; 81001; 85025; 87086

== ENCOUNTER 2024-05-25 08:11 | Outpatient (AMB) | payer OTHER, SELFPAY ==
--- OUTSIDE RECORDS SUMMARY | 2024-05-25 08:23 | XMS_ITS | Data Portability ---
Author Organization [place] - [facility], Allergy Address [address] [address] Care Team Providers Care Steel Manager Name Role Phone ELLA MICHAEL Primary Care Provider Assessment No assessment recorded. Plan of Treatment Reminders Order Date Submit Date Provider Last Modified By Organization Details Last Modified Time Details Appointments [facility] 15 2024 10:15A M DURAN NELSON MD Not available Not available Not available Lab None recorded . Referral None recorded . Procedures None recorded . Surgeries None recorded . Imaging MRI, brain, w/wo contrast - prefers [facility] eld 2023 024 [email or web address] ([facility]), [address] [place], [address], 01/03/2024 14:20:34 Medication Orders clotrima zole-bet amethaso ne 1 %-0.05 % topical cream 2023 024 [facility] [place], [place] - [id number], [address] [place], [address], 02/29/2024 15:08:30 Patient TargetsNo targets recorded. Patient InstructionsNo instructions recorded. Reason for Referral None Reported. Results Created Date Observation Date Name Description Value Unit Range Abnormal Flag Note LastModifiedBy Organization Detail LastModifiedTime 12/13/19 24 12/12/2023 MRI, brain + brain stem, w/wo contr ast [facility] Access ion Number : [id number] Jhoana lange Name: Maribell Sweeneya l Record Number : [id number] Date of : 1960 Date of Exam: 2023 Referr ing Physic kellen: Duran Estes [facility] [place] [address] [facility] [place] [address] Exam: MR Brain (C-/C+ ) CPT 23424 Room Descri ption: [facility] Verio 3.0T MR Brain (C-/C+ ) CPT 74823 INDICA TION / [facility] ON: [...] onical ly Signed By: Abdulaziz Parmar MD [facility] ([facility]) [address] [facility] [place], [address], 12/31/2023 04:57:08 12/28/19 24 07/18/2023 imagi ng/di [...] Details Recorded Time Otalgia of left ear 5653804705 Active 2020 Otalgia, left ear; Note: Date Diagnosed : 04/08/2021 3:18 PM (H92.02) Not Available [facility] 4 02:15:47 Diffuse otitis externa 44771122 Active 2020 Diffuse otitis externa, left ear; Note: Date Diagnosed : 07/17/2020 5:26 PM (H60.312) Note: Date Diagnosed : 07/17/2020 5:26 PM (H60.312) Not Available [facility] 4 00:49:08 Pain of left temporoma ndibular joint 26209256911 343620 Active 2020 Arthralgi a of left temporoma ndibular joint; Note: Date Diagnosed : 04/08/2021 3:18 PM (M26.622) Not Available [facility] 4 02:15:35 Tinnitus of left ear 51111828453 06 Active 2020 Tinnitus, left ear; Note: Date Diagnosed : 04/08/2021 3:18 PM (H93.12) Not Available [facility] 4 02:13:36 Disorder of nasal sinus 4623344 Active 2019 Unspecifi ed disorder of nose and nasal sinuses; Note: Date Diagnosed : 12/11/2019 7:07 PM (J34.9) Not Available [facility] 4 02:14:50 Disorder of the nose 95238231 Active 2019 Unspecifi ed disorder of nose and nasal sinuses; Note: Date Diagnosed : 12/11/2019 7:07 PM (J34.9) Not Available [facility] 4 02:14:50 Dysphagia 39685486 Active 2017 Dysphagia , unspecifi ed; Note: Date Diagnosed : 10/26/2017 3:35 PM (R13.10) Not Available [facility] 4 02:15:17 Acute maxillary sinusitis 39860898 Active 2019 Acute maxillary sinusitis , unspecifi ed; Note: Date Diagnosed : 12/11/2019 7:07 PM (J01.00) Not Available [facility] 4 02:13:26 Itching of skin 362508834 Active 2019 Pruritus, unspecifi ed; Note: Date Diagnosed : 12/17/2019 9:41 AM (L29.9) Not Available [facility] 4 02:15:04 Gastroeso phageal reflux disease without esophagit is 973793560 Active 2017 Gastro-es ophageal reflux disease without esophagit is; Note: Date Diagnosed : 10/26/2017 3:36 PM (K21.9) Not Available [facility] 4 02:13:57 Sensorine ural hearing loss 04181582 Active 2020 Sensorine ural hearing loss, unilatera l, left ear, with unrestric trisha hearing on the contralat eral side; Note: Date Diagnosed : 08/04/2020 11:03 AM (H90.42) Not Available [facility] 4 02:14:29 Trigemina l neuralgia 10824606 Active 2023 DURAN NELSON MD [address] [place] [address], [place], [address] , [facility] - [facility] 4 18:40:58 Localized masticato ry muscle soreness 804948610 Active 2023 Myalgia of masticati on muscle; Note: Date Diagnosed : 07/26/2023 2:53 PM (M79.11) Not Available [facility] 4 02:15:11 Type 2 diabetes mellitus without complicat ion 798680870 Active 2023 Type 2 diabetes mellitus without complicat ions; Note: Date Diagnosed : 06/13/2023 1:31 PM (E11.9) Not Available [facility] 4 02:15:17 Problem Notes None recorded. Procedures Surgical History None recorded. Imaging Results Imaging Date Name Status LastModified by Organiz ation Details LastModified Time 12/12/2023 MRI, brain + brain stem, w/wo contrast completed [facility] ([facility]) [address], [place], [address], 12/31/2023 04:57:08 07/18/2023 imaging/diagn ostic result completed [...] Name and Address Organization Details Recorded Time 66937 aspirin medicatio n other Not available Not available 09/20/2023 1191 RxNorm React ion: unkno wn, unspe cifie d;; Not Available [facility] 4 00:49:02 34127 acetamino phen / oxycodone medicatio n other Not available Not available 09/20/2023 50133 3 RxNorm React ion: unkno wn, unspe cifie d;; Not Available [facility] 4 00:49:48 51214 naproxen medicatio n other Not available Not available 09/20/2023 7258 RxNorm React ion: unkno wn, unspe cifie d;; Not Available [facility] 4 00:49:48 Medications Name Sig Start Date [...] a day 2023 active Medicati on ID: 358754 D uration Value: 10 Brand Name: ciproflo [...] mg tablet 2017 active Medicati on ID: 543476 D uration Value: 30 Brand Name: cyprohep [...] Available Not Available No t Available econazole nitrate 1 % topical cream APPLY TO THE [...] topical solution 01/11 completed Medicati on ID: 099885 D uration Value: 14 Prescri bed By [...] small amount 2020 active Medicati on ID: 340432 D uration Value: 7 Prescri bed By Name: AZUCENA Andrade nd Name: ramirez abel Send Method: E-Prescr ibed Sub s [...] drops,randy pension 01/11 completed Medicati on ID: 700585 Aquilino newberry By Name: AZUCENA Andrade nd [...] 5 drop 2020 active Medicati on ID: 381304 D uration Value: 30 Prescri bed By [...] by mouth 10/19 completed Medicati on ID: 523583 D uration Value: 30 Prescri bed By Name: Paula KrugerVINAY nd Name: omeprazo le Send Method: E-Prescr ibed Sub s Allowed: subs OK Speci al Instruct ion: Take 1 tablet by mouth every day before a meal Med icationG enericNa me: omeprazo le Medic ation ID: [id number] D uration Value: 30 Prescri bed By [...] Available No t Available Comfort EZ Pen [place] 32 gauge x 5/32 USE TO INJECT insulin 5 TIMES A DAY active Not Available Not Available No t Available Jardiance 10 mg tablet TAKE 1 TABLET BY MOUTH EVERY MORNING active Not Available Not Available No t Available Flonase Allergy Relief 50 mcg/actua tion nasal spray,randy pension 2 puff into both nostrils 2019 active Medicati on ID: 281969 D uration Value: 30 Prescri bed By [...] Available No t Available FreeStyle Antonio 2 [place] USE DIRECTED active Not Available Not Available [...] Updated DateTime 12/27/2023 157.48 cm 35.5 kg/m2 18145.92 g Nyla Rowland [facility] 12/27/2023 13:07:29 Date Recorded Body height Body mass index (BMI) Body weight Provider Name and Address Organization Details Last Updated DateTime 01/12/2024 157.48 cm 35.5 kg/m2 81602.92 g Nyla Rowland [facility] 01/12/2024 13:05:16 Date Recorded Body height Body mass index (BMI) Body weight Provider Name and Address Organization Details Last Updated DateTime 10/20/2023 157.48 cm 38.2 kg/m2 41654.81 g Nyla Rowland [facility] 10/20/2023 13:21:31 Social History None recorded. Functional Status None recorded. Mental Status None recorded. Family History Nothing Reported. Medical History No medical history recorded. Gynecological HistoryNo gynecological history recorded. Obstetrics History GPAL:G 0 P 0 0 0 0 Past Encounters Encounter ID Performer Location Encounter Start Date Encounter Closed Date Diagnosis/Indication Diagnosis SNOMED-CT Code Diagnosis ICD10 Code Diagnosis Note [id number] DURAN NELSON MD [facility] on [address] [place] [address] 10/20/2023 13:04:44 10/20/2023 14:59:17 Otalgia of left ear 8785217739 H92.02 63 yo F presents for follow up of her left ear. She is here for scheduled cerumen removal, but she is concerned about persistent pain. She was seen in [place] at the end of January and had a CT which purportedl y showed possible infection in the left sinus, but overall symptoms thought to be more consistent with trigeminal neuralgia. Of note, her imaging earlier this year did not show clinically significan t sinus disease. She has not yet seen a neurologis t. She has been worked up for the otalgia extensivel y, including CT temporal bone, CT neck with contrast, dental evaluation , temporal artery biopsy. There is no evidence of ear infection on exam or any obstructiv e cerumen. I recommende d against any Q tip use. There is tenderness over her midface. [facility] Trigeminal neuralgia 316 16459 G50.0 [id number] DURAN NELSON MD [facility] on [address] [place] [address] 12/27/2023 13:00:52 12/27/2023 13:42:13 Diffuse otitis externa 99858234 H60.312 Otalgia of left ear 1010 014741 H92.02 63 yo F presents for follow up of her left ear. She is here for scheduled cerumen removal, but she is concerned about persistent pain. She was seen in [place] at the end of January and had a CT which purportedl y showed possible infection in the left sinus, but overall symptoms thought to be more consistent with trigeminal neuralgia. Of note, her imaging earlier this year did not show clinically significan t sinus disease. She has not yet seen a neurologis t. She has been worked up for the otalgia extensivel y, including CT temporal bone, CT neck with contrast, dental evaluation , temporal artery biopsy. Since her last visit, she did have an MRI which did show proximity of veins to her trigeminal nerves, but this was actually more prominent on the right side and she is having symptoms on the left.On exam today, there was some squamous debris in the ear canal which was suctioned. I did put some Lotrisone into the canal. Follow-up 2 weeks. [id number] DURAN NELSON MD [facility] on [address] [facility] [place] [address] 01/12/2024 12:56:02 01/12/2024 14:21:07 Otalgia of left ear 7558386934 H92.02 63 yo F presents for follow up of her left ear. Lotrisone is gone. No infection. Middle ear aerated. she can continue the vinegar drops for maintenanc e as lotrisone sparingly to the EAC meatus. Follow up three months for reassessme nt and cleaning. Health Concerns Section Related Observation LastModified by Organization Detai ls LastModified Time None Recorded Concern Status LastModified by Organization Details LastModified Time None Recorded Advance Directives Directive None Recorded Payers Encounter Date Sequence Insurance Name Policy Number Policy Yost Covered Member ID Yost Member ID Guarantor Name 10/20/2023 1 [facility] [id number] Maribell H Colon [id number] 1 Maribell H Colon 12/27/2023 1 [facility] [id number] Maribell H Colon [id number] 1 Maribell H Colon 01/12/2024 1 [facility] [id number] Maribell H Colon [id number] 1 Maribell H Colon Notes Date Note Type Note Provider Name and Address Organization Details Recorded Time 10/20/2023 text/html 63 yo F presents for follow up of her left ear. She is here for scheduled cerumen removal, but she is concerned about persistent pain. She was seen in [place] at the end of January and had [...] a CT scan of the neck at [place] which did not show any sign of [...] mouth to to tightness DURAN NELSON MD [address] [place] [address], [id number], [facility] - [facility] 10/30/2023 18:46:54 12/27/2023 text/html 63-year-old luis carlos bull presents today for follow-up and reassessment of her ear. PV:63 yo F presents for follow up of her left ear. She is here for scheduled cerumen removal, but she is concerned about persistent pain. She was seen in [place] at the end of January and had [...] a CT scan of the neck at [place] which did not show any sign of [...] mouth to to tightness DURAN NELSON MD [address] [facility],[address], [address], [facility] - [facility] 01/03/2024 08:17:01 01/12/2024 text/html 63 yo F presents for follow up after lotrisone injection on the left. She does feel improvement in left otalgia. \ She was seen in [place] at the end of January and had [...] symptoms on the left. DURAN NELSON MD [address] [facility],[place] [address], [place], [address], [place] - [facility] 01/18/2024 06:10:12 OBGyn Episode No OBEpisode recorded.
--- NOTE | 2024-05-25 08:34 | MHC.OFFVIS ---
Intake Visit Reasons: urodynamics Intake Note: Patient is present for Urodynamics Allergies octopus Allergy (Severe, Verified 04/20/24 10:49) Anaphylaxis oxybutynin Allergy (Severe, Verified 04/20/24 10:49) Difficulty Swallowing tolterodine Allergy (Severe, Verified 04/20/24 10:49) Difficulty Swallowing aspirin Allergy (Unknown, Verified 04/20/24 10:49) anaphylaxis citalopram Allergy (Unknown, Verified 04/20/24 10:49) Unknown empagliflozin [From Jardiance] Allergy (Unknown, Verified 04/20/24 10:49) Unknown Fish Containing Products Allergy (Unknown, Verified 04/20/24 10:49) Unknown gabapentin Allergy (Unknown, Verified 04/20/24 10:49) hives hydrocodone [Vicodin] Allergy (Unknown, Verified 04/20/24 10:49) hives naproxen [Naprosyn] Allergy (Unknown, Verified 04/20/24 10:49) anaphylaxis oxycodone [Percocet] Allergy (Unknown, Verified 04/20/24 10:49) hives pregabalin [From Lyrica] Allergy (Unknown, Verified 04/20/24 10:49) Unknown sertraline Allergy (Unknown, Verified 04/20/24 10:49) Unknown shellfish derived Allergy (Unknown, Verified 04/20/24 10:49) Unknown peanut Allergy (Verified 04/20/24 10:49) Anaphylaxis solifenacin Adverse Reaction (Verified 04/20/24 10:49) phlegm Vicodin Allergy (Unknown, Uncoded 04/17/24 16:28) hives Medication List - Last Reconciled 05/25/24 by Nahun Aldana MD albuterol sulfate 90 mcg/actuation 1 inh inhalation QID PRN alcohol swabs pad topical TID amlodipine 5 mg PO DAILY apixaban 5 mg PO BID atorvastatin 10 mg PO DAILY baclofen 10 mg PO BID 30 days benzonatate 100 mg PO TID blood sugar diagnostic As directed cholecalciferol (vitamin D3) 50 mcg PO BEDTIME citalopram 40 mg PO DAILY diclofenac sodium 1% grams topical diphenhydramine HCl (Benadryl) 25 mg PO TID PRN disposable gloves (Nitrile Exam Gloves) As directed- pt requesting size XL dulaglutide (Trulicity) mg subcut empagliflozin (Jardiance) 10 mg PO QAM ezetimibe 10 mg PO DAILY fluocinonide 0.05% appl topical DAILY fluticasone propionate 50 mcg/actuation 0 mcg intranasal BID hydrochlorothiazide 25 mg PO QAM hydroxyzine HCl 25 mg PO DAILY incontinence pad, liner, disp (Poise Pads) As directed incontinence pad, liner, disp As directed- pt requesting 6 per day insulin glargine (Lantus Solostar U-100 Insulin) units subcut BEDTIME insulin lispro 30 units subcut TID lancets As directed lidocaine 5% 1 patch topical DAILY PRN loratadine 10 mg PO DAILY lorazepam 1 mg PO BID losartan 100 mg PO DAILY metformin 850 mg PO BID metoclopramide HCl (Reglan) 10 mg PO .six times a day metoprolol succinate ER 100 mg PO DAILY montelukast 10 mg PO DAILY nystatin 1 appl topical TID 30 days omeprazole 20 mg PO DAILY oxcarbazepine (Trileptal) 150 mg PO DAILY 30 days pen needle, diabetic As directed temazepam 30 mg PO BEDTIME PRN triamcinolone acetonide 0.025% appl topical trospium ER 60 mg PO DAILY underpads (Bed Underpads) As directed- pt requesting 3 per night vibegron (Gemtesa) 75 mg PO DAILY 90 days HPI Comments Details: Maribell is here for urodynamics. The patient has complaints of urinary incontinence. She has been on several anticholinergics without adequate improvement in urinary symptoms. Currently she is on Gemtesa 75 mg daily and takes OTC Azo-bladder. Interpretation: During the filling phase there was sensory urgency was noted, strong urge was noted at 169 mL with a small detrusor contraction; bladder capacity was less than average, the patient felt that she was at capacity at 182 mL and voided 190 mL. Findings consistent with neurogenic bladder, less than average functional bladder capacity. EMG- Appropriate changes in the waveforms were noted through out the study. Discussed with patient that urinary leakage can be related to pelvic floor muscles weakness and/or bladder spasms. Discussed findings. Treatment options discussed for OAB included anticholinergics/antimuscarinics, neuromodulation, bladder botox injection. The patient wants to avoid any procedures at this time. Will use combination PO anticholinergic Gemtesa with trospium. [facility] Medical History Gastroparesis COVID-19 UTI (urinary tract infection) Amputated toe of right foot Ganglion cyst Urinary incontinence HTN (hypertension) Diabetes mellitus Urinary incontinence Surgical History History of left below knee amputation S/P carpal tunnel release History of surgical removal of ganglion cyst S/P rotator cuff repair History of surgery Social History Alcohol intake: never Patient Tobacco Use Status: Never used Tobacco Substance Use Type: Marijuana Review of Systems Const All systems reviewed & are unremarkable except as noted in HPI and below Reports no additional complaints Eyes Reports no additional complaints ENT Reports no additional complaints Card Reports no additional complaints Resp Reports no additional complaints GI Reports no additional complaints Reports as per HPI Musc Reports no additional complaints Skin/Breast Reports system reviewed and no additional complaints, except as documented Neuro Reports no additional complaints Psych Reports no additional complaints Endo Reports no additional complaints Rip/Lymph Reports no additional complaints Aller/Immun Reports no additional complaints Office Procedures Urodynamic Studies Consent Discussed risk and benefit or proposed procedure with the patient. Information consent for procedure given to the patient. Discussed technical aspects, risks, benefits and alternatives in full. Addressed all of the patient's questions and concerns regarding the procedure. The patient demonstrated knowledge and understanding. They wish to proceed with this procedure. Preparation The patient was prepped in the usual manner. A beer coil cleaner was present and in the room. Genitalia was prepped with betadine solution in a sterile manner. Procedure Complex Uroflow Complex uroflow performed by: Nahun Aldana Maximum urinary flow rate (mL/second): 14 Voiding time (seconds): 13 Voided volume (mL): 95 Residual urine (mL): minimal Cystometrogram Vaginal/rectal catheter type: vaginal First sensation at (mL): 13 mL Strong desire to void occured at (mL): 179 mL Strong desire detrussor pressure (cm H2O): 3.7 Maximum fill (mL): 182 mL Voided with max detrussor pressure of (cm H2O): 82 collected (more urine missed contained- estimated voided urine 190 Maximum flow rate (mL/second): 11 mL/s Prep: The patient was prepped in the usual manner. A beer coil cleaner was present and in the room. Genitalia was prepped with betadine solution in a sterile manner. 73764-Eyyiviroioxrrr w/ APPLICATION SUPPORT DEVELOPER 26824-Cgrituh-Ifrhmtofeoiy First 63826-Qvii/Urinary Muscle Study 83516-Utulr-Eqatvfwsv Pressure Test Procedure code (CPT) selection complete Office Meds nitrofurantoin monohydrate/macrocrystals 100 mg capsule Performing Provider: Nahun Aldana MD [facility] Administered by: Malachi Carter LPN on 05/25/24 08:45 Dose Route Admin Location Dispensed Lot Number Expiration Date NDC Java Mobile Developer 100 mg PO 1 cap Assessment & Plan Assessment & Plan (1) Spastic neurogenic bladder: Code(s): N31.8 - Other neuromuscular dysfunction of bladder Category: Medical (2) Urge incontinence of urine: Code(s): N39.41 - Urge incontinence Category: Medical Plan Disussed Botox bladder injection Orders: Orders AMB Urodynamics Studies Today M62.89 - Other specified disorders of muscle, R32 - Unspecified urinary incontinence, R39.9 - Unspecified symptoms and signs involving the genitourinary system Medications: New trospium ER must be taken on empty stomach at least 1 hour before a meal/food with water only 60 mg PO DAILY 90 caps 3RF Refilled vibegron (Gemtesa) 75 mg PO DAILY 90 days 90 tabs 3RF Patient Instructions: The patient had an opportunity to ask questions regarding treatment plan. The patient expressed understanding and agreement with the above treatment plan. The patient is aware they should contact our office by phone for worsening of their current condition or the appearance of new symptoms. Compliance is encouraged with any medications and followup testing that is ordered. It is a privilege to be allowed the opportunity to participate in the urologic care of your patient. If you have any questions or concerns regarding treatment for the above conditions please do not hesitate to contact me. The office telephone contact is [phone]. This note is constructed in part using voice recognition software. While every effort has been made to ensure accuracy self sealing fuel tank builder errors may have been included. Yours sincerely, Nahun Aldana MD Coding Level of Care Code Est Pt Level 3 (36208) Diagnoses Spastic neurogenic bladder N31.8 Urge incontinence of urine N39.41 CPT Codes Urodynamic Studies - CPT: 82346-Tqroxzecofqqwn w/ APPLICATION SUPPORT DEVELOPER ([id number]) Urodynamic Studies - CPT: 58792-Dfjlgyb-Slbudjcjhthq First ([id number]) Urodynamic Studies - CPT: 30912-Olry/Urinary Muscle Study ([id number]) Urodynamic Studies - CPT: 10767-Slpuc-Rktislpff Pressure Test ([id number])
== END 2024-05-25 10:00 | disposition home or self-care (01) ==
PROVIDERS: PCP Hospitalist; Visit Provider Urology
DX: R39.9 Unspecified symptoms and signs involving the genitourinary system (principal); R32 Unspecified urinary incontinence; M62.89 Other specified disorders of muscle; N31.8 Other neuromuscular dysfunction of bladder; N39.41 Urge incontinence
CPT/HCPCS: 51728; 51741; 51784; 51797; 99213

== ENCOUNTER → 2024-05-25 08:11 | Outpatient (BNVA) | payer OTHER, SELFPAY | PROVIDERS: PCP Hospitalist; Visit Provider Urology | DX: N31.8 Other neuromuscular dysfunction of bladder (principal); N39.41 Urge incontinence | CPT/HCPCS: 51728; 51741; 51784; 51797; 99212 ==

== ENCOUNTER → 2024-05-30 16:12 | Outpatient (BNV) | payer OTHER, SELFPAY | PROVIDERS: PCP Hospitalist; Visit Provider Radiology Diagnostic Radiology | DX: G95.89 Other specified diseases of spinal cord (principal) | CPT/HCPCS: 72141 ==

== ENCOUNTER 2024-05-30 16:40 | Outpatient (REF) | payer OTHER, SELFPAY ==
--- NOTE | ~2024-05-30 | MR_ITS ---
CLINICAL HISTORY: M26.622 - Arthralgia of left temporomandibular joint MR cervical spine without gadolinium Comparison: CT/REG/SR - CT CERVICAL SPINE WO IV CON - 09/29/23 08:[address]/SR - CT CERVICAL SPINE WO IV CON - 07/02/22 14:09 EST Findings: Similar straightening of the cervical lordosis. Normal vertebral body height and precervical soft tissue thickness. Chronic fibro sclerotic predominantly Modic type 2 and type 3 degenerative endplate changes at C4-5 and C5-6. No acute appearing marrow signal changes. Intact craniocervical junction and C1-2. C2-3: Left-sided facet arthritis narrowing left C3 foramen. Disc level otherwise intact. C3-4: Small disc osteophyte complex without cord contact or effacement. Left-sided facet arthritis and C4 foraminal narrowing greater to left. C4-5: Broad-based disc osteophyte complex without cord contact or effacement. Mild facet arthritis. Bilateral C5 foraminal narrowing. C5-6: Small disc osteophyte complex without significant mass effect. Mild facet arthritis and effacement C4 C6 foramina. C6-7: Broad-based disc osteophyte complex approaching although not clearly abutting or effacing ventral cervical cord. Facet arthritis and C7 foraminal narrowing slightly greater to the left. C7-T1: Disc osteophyte complex eccentric laterally to the left. Mild thecal sac effacement without marked mass effect. Narrowing left C8 foramen. Generalized disc desiccation and disc space narrowing of T1-2, T2-3 and T3-4. Mild Modic type 1 reactive endplate changes at T2-3 eccentric to the left. The cervical cord signal and contours normal. Posterior fossa structures intact. No acute appearing abnormality of the paracervical soft tissues. Impression: Generalized degenerative changes throughout the cervical spine with very similar appearance to prior CT. Ventral defects on the thecal sac at each level. No cord effacement or intradural signal abnormality. Multilevel facet arthritis and generalized foraminal narrowing as detailed. This document has been electronically signed by: Nick Hamm MD on 05/31/2024 12:20:45
--- OUTSIDE RECORDS SUMMARY | 2024-05-30 18:22 | XMS_ITS | Encounter Summary ---
Author Organization [employer] Address [address] [place] [address] Care Team Providers Care Clinical Nurse Manager Name Role Phone Samuel Hilario MD Primary Care Provider [phone] Reason for Visit * Reason Comments Foot Problem bryson Avila Encounter Details Date Type Department Care Team ([facility] st Contact Info) Description 05/10/2024 1:30 PM EST Consult Orthopedic Surgery [facility] [address] [phone] Nolberto Cruz, DPM [address] [place] [address] Dermatophytosis of nail (Primary Dx); Hx of BKA, left ([facility]/HCC); Type II diabetes mellitus with peripheral circulatory disorder ([facility]/HCC); Diabetic mononeuropathy simplex ([facility]); Corns and callosities Social History Tobacco Use Types Packs/Day Years Used Date Smoking Tobacco: Former Cigarettes Q uit: 05/09/1999 Smokeless Tobacco: Never Alcohol Use Standard Drinks/Week Comments No 0 (1 standard drink = 0.6 oz pur e alcohol) Sex and Gender Information Value Date Recorded Sex Assigned at Not on file Gender Identity Not on file Sexual Orientation Not on file Job Start Date Occupation Industry Not on file Not on file Not on file documented as of this encounter Last Filed Vital Signs Vital Sign Reading Time Taken Comments Blood Pressure - - Pulse - - Temperature - - Respiratory Rate - - Oxygen Saturation - - Inhaled Oxygen Concentration - - Weight 91.2 kg (201 lb) 05/10/2024 1:49 PM EST Height 157.5 cm (5' 2.01 ) 05/10/2024 1:49 PM ES T Body Mass Index 36.75 05/10/2024 1:49 PM EST documented in this encounter Progress Notes * Nolberto Cruz DPM - 05/10/2024 1:30 PM EST IDENTIFIER: Patel is a 63 y.o. year old female who presents for consultation. CC: Foot pain HPI: Presents today for evaluation of her feet has a history of below-knee amputation left lower extremity is a type II diabetic from blood clots notes that her right foot is well She does not she occasionally has throbbing achy pain in her right lower extremity she has numbness and tingling does not that she is also getting curling of her toes states that her big toes hammering is been bothering her w ith irritation of the skin ROS: GENERAL: Pt denies nausea, fever, vomiting, chills, or shortness of breath. Pt in NAD. CARDIOLOGY: pt denies chest pain, palpitations LUNGS: pt denies shortness of breath MUSCULOSKELETAL: See HPI, otherwise no joint pain or swelling, back pain, or muscle pain. SKIN: see HPI, otherwise no lesions, rash or itching NEURO: No persistent headache, weakness or numbness The remainder of the review of systems is noncontributory PAST MEDICAL HISTORY: Patient Active Problem List Diagnosis Arterial embolism and thrombosis of lower extremity ([facility]) Hypertension Morbid obesity ([facility]) Type 2 diabetes mellitus with neurological manifestations ([facility]) Diabetic gastroparesis ([facility]) Heartburn Fatty liver Diarrhea Urinary incontinence Postmenopausal bleeding Phantom limb syndrome ([facility]) Sleep apnea MUSA (obstructive sleep apnea) Asthma Chronic shoulder pain Chronic pain Carpal tunnel syndrome Depressive disorder Panic attacks Lumbago Lumbosacral spondylosis without myelopathy Rotator cuff tear Prurigo nodularis Eczema Generalized headaches History of leg amputation ([facility]) S/P BKA (below knee amputation) ([facility]) Tardive dyskinesia SOCIAL HISTORY: Social History Tobacco Use Smoking status: Former Current packs/day: 0.00 Types: Cigarettes Quit date: 05/09/1999 Years since quittin.0 Smokeless tobacco: Never Substance Use Topics Alcohol use: No ACTIVE MEDICATIONS: No outpatient medications have been marked as taking for the 05/10/24 encounter (Consult) with Nolberto Cruz DPM. ALLERGIES: Allergies Allergen Reactions Nsaids (Non-Steroidal Anti-Inflammatory Drug) Anaphylaxis Shellfish Containing Products Anaphylaxis Shellfish Derived Anaphylaxis Acetaminophen Aspirin Cephalexin Codeine Iodinated Contrast Media Menthol-Zinc Oxide Rash Naproxen Wheezing Oxycodone-Acetaminophen Peanut Butter Flavor Topiramate PHYSICAL EXAM: Visit Vitals Ht 1.575 m (62.01 ) Wt 91.2 kg (201 lb) BMI 36.75 kg/m?? Smoking Status Former BSA 1.92 m?? PODIATRIC EXAMINATION: GENERAL: Patient appears well nourished, with NAD. VASCULAR: PT 0 out of 4 DP 1 out of 4 right lower extremity Left BKA NEUROLOGICAL: Sharp/dull sensation , protective sensation 0/10 with 5.07 semmes ana paula bilaterally, vibratory sensation with tuning fork intact to the tibial tuberosity. ORTHOPEDIC: BKA left DERMATOLOGICAL:.Nails thickened discolored x 10 irritation of skin right great toe BIOMECHANICS: Below-knee amputation left hammertoe right hallux IMAGING: IMPRESSION: 1. Dermatophytosis of nail 2. Hx of BKA, left ([facility]) 3. Type II diabetes mellitus with peripheral circulatory disorder ([facility]) 4. Diabetic mononeuropathy simplex ([facility]) PLAN: Pt was seen and examined, history reviewed. New diabetic shoes prescribed for contractural deformity with preulcerative lesions Silicone toe sleeve recommended for hammertoe contracture right foot Discussed with patient regarding proper glucose control, exercise, and diet. Explained to patient proper shoe gear, and importance of daily foot checks. I reviewed neuropathy and why it occurs in diabetics. I educated the patient on proper blood sugar control and the importance of an HgBA1c of less than 7.0%. I reviewed the signs and symptoms of neuropathy with the patient Pt to return for another evaluation in 1-3 months. Nolberto Cruz DPM documented in this encounter Plan of Treatment Upcoming Encounters Date Type Department Care Team (Late st Contact Info) Description 06/21/2024 3:15 PM EST Office Visit Orthopedic Surgery - [place] [address] [phone] Nolberto Cruz DPM [address] [place] [address] 08/07/2024 2:30 PM EDT Office Visit Obstetrics & Gynecology - [address] [phone] Betty Matt, CNM [address] [place] [address] documented as of this encounter Visit Diagnoses Diagnosis Dermatophytosis of nail- Primary Hx of BKA, left ([facility]) Type II diabetes mellitus with peripheral circulatory disorder ([facility]) Type II or unspecified type diabetes mellitus with peripheral circulatory disorders, not stated as uncontrolled Diabetic mononeuropathy simplex ([facility]) Type II or unspecified type diabetes mellitus with neurological manifestations, not stated as uncontrolled Corns and callosities documented in this encounter Care Teams Clinical Nurse Manager Relationship Specialty Start Date End Date Samuel Hilario MD [address] [place] [phone] PCP - General Internal Medicine 03/19/20 documented as of this encounter
--- OUTSIDE RECORDS SUMMARY | 2024-05-30 18:22 | XMS_ITS | Clinical Summary ---
Author Organization [facility] Address [address] [facility] [address] [place] [address] Phone Care Team Providers Care Short Order Fry Cook Name Role Phone Samuel Hilario MD Primary Care Provider [phone] Allergies Active Allergy Reactions Criticality Noted Date Comments Aspirin Anaphylaxis,Hives High 05/26/2021 Gabapentin 05/26/2021 Pregabalin 03/22/2022 Menthol-Zinc Oxide Other (see comments) 022 Naproxen Hives 05/26/2021 Oxycodone-Acetaminophen Itching 05/26/2021 Valproic Acid Anaphylaxis High 05/26/2021 Hydrocodone-Acetaminophen Itching 05/26/2021 Medications glucose blood test strip See Instructions, # 100 each, Maintenance, Test three times daily, 08/21/17 18:59:38 EDT, Compound 8 Active salmeterol (Serevent Diskus) 50 MCG/DOSE diskus inhaler Inhale 50 mcg 8 Active cholecalciferol (VITAMIN D-3) 50 MCG (2000 UT) capsule Take 2,000 Int'l Units by mouth 8 Active albuterol (2.5 MG/3ML) 0.083% nebulizer solution Inhale 2.5 mg 9 Active apixaban (ELIQUIS) 5 MG tablet TAKE ONE TABLET BY MOUTH 2 (two) times a day 9 Active busPIRone (BUSPAR) 10 MG tablet Take 10 mg by mouth 8 Active cetirizine (ZyrTEC) 10 MG tablet Take 10 mg by mouth 8 Active citalopram (CeleXA) 20 MG tablet Take 20 mg by mouth 8 Active fluticasone HFA (Flovent HFA) 110 MCG/ACT inhaler Inhale 9 Active Insulin Degludec (TRESIBA FLEXTOUCH SC) once a week, 0 Refills, Maintenance, 02/11/20 10:04:00 EDT 0 Active insulin glargine (LANTUS) 100 UNIT/ML injection Inject under the skin 8 Active Insulin Lispro, 1 Unit Dial, 100 UNIT/ML solution pen-injector Inject under the skin 9 Active insulin lispro (HumaLOG) 100 UNIT/ML injection Inject under the skin 8 Active lidocaine (XYLOCAINE) 2 % jelly Apply 0.2 g topically 8 Active loratadine (CLARITIN) 10 MG tablet Take 10 mg by mouth 9 Active losartan (COZAAR) 100 MG tablet Take 100 mg by mouth 8 Active metoprolol succinate XL (TOPROL-XL) 100 MG 24 hr tablet Take 100 mg by mouth 8 Active mometasone (ELOCON) 0.1 % cream Apply topically 8 Active montelukast (SINGULAIR) 10 MG tablet Take 10 mg by mouth 8 Active nystatin (MYCOSTATIN) powder Apply topically 4 Active pantoprazole (PROTONIX) 40 MG EC tablet Take 40 mg by mouth 8 Active amLODIPine (NORVASC) 5 MG tablet TAKE ONE TABLET BY MOUTH ONCE A DAY 2 Active Trulicity 3 MG/0.5ML solution pen-injector INJECT THE CONTENT OF 1 pen UNDER THE SKIN EACH WEEK DIRECTED 2 Active fluticasone (FLONASE) 50 MCG/ACT nasal spray 2 Active hydrOXYzine (ATARAX) 25 MG tablet TAKE ONE TABLET BY MOUTH 3 (THREE) TIMES A DAY NEEDED 1 Active Comfort EZ Pen [place] 32G X 4 MM [facility] 2 Active Easy Comfort Lancets [facility] 2 Active gemfibrozil (LOPID) 600 MG tablet TAKE ONE TABLET BY MOUTH two (2) times a day 30 MINUTES BEFORE morning AND EVENING MEALS 2 Active oxyCODONE (ROXICODONE) 30 MG immediate release tablet 2 Active omeprazole (PriLOSEC) [address] capsule TAKE ONE CAPSULE BY MOUTH DAILY DIRECTED BEFORE A MEAL 2 Active hydroCHLOROthiaz dee 25 MG tablet TAKE ONE TABLET BY MOUTH ONCE A DAY IN THE MORNING 2 Active temazepam (RESTORIL) 30 MG capsule Take 30 mg by mouth at night if needed 2 Active tiZANidine (ZANAFLEX) 4 MG tablet TAKE ONE TABLET BY MOUTH 3 (THREE) TIMES A DAY FOR 7 DAYS 1 Active EPINEPHrine (EPIPEN IJ) Inject as directed Active levalbuterol (XOPENEX) 1.25 MG/3ML nebulizer solution Take 1 ampule by nebulization 3 (three) times a day Active cyproheptadine (PERIACTIN) 4 MG tablet Take 4 mg by mouth 3 (three) times a day if needed for allergies Active azelastine (OPTIVAR) 0.05 % ophthalmic solution 1 drop 2 (two) times a day Active ondansetron (ZOFRAN) 24 MG tablet Take 24 mg by mouth 1 (one) time Active sulfamethoxazole -trimethoprim 800-160 MG per tablet Take 1 tablet by mouth in the morning and 1 tablet in the evening. Do all this for 5 days. 10 tablet 1 2 Active Semaglutide 3 MG tabletIndication s:Type 2 diabetes mellitus with diabetic chronic kidney disease (HCC) Take 1 tablet by mouth 1 (one) time each day 90 tablet 5 2 Active solifenacin (VESICARE) 10 MG tablet Take 10 mg by mouth 1 (one) time each day Swallow tablet whole; do not crush, chew, or split. Active pregabalin (Lyrica) 25 MG capsuleIndicatio ns:Type 2 diabetes mellitus with diabetic chronic kidney disease (HCC),Persistent proteinuria,Esse ntial hypertension Take 1 capsule (25 mg total) by mouth in the morning and 1 capsule (25 mg total) in the evening. 180 capsule 3 2 Active Fluticasone-Salm eterol 250-50 MCG/ACT aerosol powder Inhale Active azelastine (ASTELIN) 0.1 % nasal spray 2 sprays each nostril each day Active docusate calcium (SURFAK) 240 MG capsule Take by mouth Active beclomethasone (QNASL) 80 MCG/ACT aerosol solution Administer 2 Squirts into affected nostril(s) 8 Active betamethasone, augmented, (DIPROLENE) 0.05 % cream Apply to eczematous patches daily as needed, for no longer than a 2-3 week period, then only on Sat/Sun 7 Active calcipotriene (DOVONOX) 0.005 % ointment Apply sparingly second after mometasone twice a day to affected areas on arms and legs as needed 7 Active clotrimazole-bet amethasone (LOTRISONE) cream Apply topically Acti ve clobetasol (TEMOVATE) 0.05 % cream To affected area 2-3 times daily for no more than 2-3 weeks, then only using on the weekends prn 7 Active fluconazole (DIFLUCAN) 150 MG tablet Take one tab today, if no improvement in 3 dys then take 2nd dose 3 Active Empagliflozin (Jardiance) 10 MG tablet Take 1 tablet by mouth 2 Active diclofenac (VOLTAREN) 75 MG EC tablet Take 75 mg by mouth Active ipratropium-albu terol (DUO-NEB) 0.5-2.5 mg/3 mL nebulizer solution Inhale 0 Active Lactobacillus (Acidophilus) capsule Take 1 capsule by mouth 1 (one) time each day 2 Active levalbuterol (XOPENEX) 0.63 MG/3ML nebulizer solution Inhale 0.63 mg 8 Active Mirabegron ER (Myrbetriq) 25 MG tablet sustained-releas e 24 hour 1 tablet 7 Active metFORMIN (GLUCOPHAGE) 850 MG tablet Take 850 mg by mouth Active ezetimibe (ZETIA) 10 MG tablet Take 10 mg by mouth 1 (one) time each day 3 Active Vibegron (Gemtesa) 75 MG tablet Take by mouth Active Active Problems Problem Noted Date Diagnosed Date Persistent proteinuria 02/06/2024 Stage 3a chronic kidney disease 02/02/2024 Gastroparesis due to diabetes mellitus 3 Insomnia 06/17/2021 Deep venous thrombosis 06/17/2021 Anxiety 06/17/2021 Asthma 05/26/2021 Bladder muscle dysfunction - overactive 05/26/19 22 Hypertension 05/26/2021 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 Abilify Long-term current use of anticoagulant 5 Rupture of rotator cuff of shoulder 05/18/2014 Overview (09/06/2022): Chronic anterior/superior tear, managed medically Carpal tunnel syndrome 05/18/2014 Overview (09/06/2022): left Chronic pain 04/15/2014 Overview (09/06/2022): Left upper leg. ?neuropathy. Intol gabapentin Fibromyalgia Pain clinic injection 09/20. Good results Intolerant gabapentin Urinary incontinence 03/29/2014 Overview (09/06/2022): [place]. Changed to [place] Panic attack 03/29/2014 Overview (09/06/2022): Sees psych Disorder of nervous system due to type 2 diabete s mellitus 03/29/2014 Overview (09/06/2022): Left stump neuropathy Intolerant metformin Refused increase med. See Tel. 02/02/16 Lumbosacral spondylosis without myelopathy 03/18 H/O: pulmonary embolus 03/18/2014 Overview (09/06/2022): 2011 Dr. Junior. Chronic coumadin (this history was noted in old records but pt denies. States coumadin since 2004, ?arterial clot, recommended by Dr. 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/19/2005 Overview (09/06/2022): from birthcontrol.had amputation on 10/11.on coumadin since October previous pcp dr ANA Echeverria reclathal u/s negative in [place] 08/16/05 plastic sugeon for wound care s/p amputation.sees dr loyd for infection suresh gray is her plastic surgeon just finished reconstruciton Family History Medical History Relation Comments Diabetes Brother Hypertension Brother Stroke Mother Relation Status Comments Brother Mother Social History Tobacco Use Types Packs/Day Years Used Date Smoking Tobacco: Former Cigarettes Smokeless Tobacco: Never Tobacco Cessation:Counseling Given: Not Answered Alcohol Use Standard Drinks/Week Comments Not Currently 0 (1 standard drink = 0.6 oz pur e alcohol) Comments Unknown Sex and Gender Information Value Date Recorded Sex Assigned at Not on file Legal Sex Female 9:26 AM EST Gender Identity Not on file Sexual Orientation Not on file Last Filed Vital Signs Vital Sign Reading Time Taken Comments Blood Pressure 102/68 02/02/2024 10:54 AM EDT Pulse 78 08/01/2023 3:46 PM EDT Temperature - - Respiratory Rate - - Oxygen Saturation 93% 09/29/2022 12:23 PM EDT Inhaled Oxygen Concentration - - Weight 93.9 kg (207 lb) 02/02/2024 10:54 AM EDT Height 157.5 cm (5' 2 ) 08/18/2021 11:20 AM EDT Body Mass Index 37.86 08/18/2021 11:20 AM EDT Plan of Treatment Upcoming Encounters Date Type Department Care Team (Late st Contact Info) Description 06/09/2024 Orders Only [facility] [address] [place] [address] [phone] Racheal Wood ARNP [address] [phone] Stage 3a chronic kidney disease (HCC); Hypertension; Persistent proteinuria 08/01/2024 11:00 AM EDT Office Visit [facility] [address] [phone] Racheal Wood ARNP [address] [place] [phone] Health Maintenance Due Date Last Done Comments Breast Cancer Screening 1960 Colorectal Cancer Screening: Annual FOBT 09/25/2011 Colorectal Cancer Screening: Colonoscopy 09/25/2011 Colorectal Cancer Screening: Sigmoidoscopy 09/25/2011 Pneumococcal Vaccine: Pediat rics (0 to 5 Years) and At-Risk Patients (6 to 64 Years) (2 of 2 - PCV) 04/29/2015 04/29/2014 Diabetes: Ophthalmology Exam 05/26/2021 09/25/2009 Diabetes: Pedal Pulse Checked 05/26/2021 Diabetes: Sensory Foot Exam 05/26/2021 Diabetes: Visual Foot Exam 05/26/2021 Diabetes: Hemoglobin A1C 09/14/2021 06/17/2021 Influenza Vaccine (#1) 2024 02/02/2017 Hepatitis B Vaccine Aged Out No longe r eligible based on patient's age to complete this topic Procedures Procedure Name Priority Date/Time Associated Diagnosis Comments HEMOGLOBIN A1C Routine 06/17/2021 4:28 PM EST Type 2 diabetes mellitus with diabetic chronic kidney disease (HCC) from Last 3 Months or Most Recently Relevant to Health Maintenance Results * (ABNORMAL) Hemoglobin A1c (06/17/2021 4:28 PM EST) Hemoglobin A1C 9.2(H) (4.0-5.6) % [facility] Comment: MONITORING: In known diabetic patients, hemoglobin A1c targets should be discussed with health care provider. DIAGNOSTIC USE: ??The [place] [employer] Association (ADA) and the World Health [...] Research and Education Volume 43, Supplement 1 Testing performed or reported by [facility], a Service of [facility], [address] [place] [address] Bertin Bethea MD, Wildlife Photographer [facility]# [id number] Blood (Blood, Venous) 06/17/2021 4:28 PM EST 06/17/2021 4:29 PM EST Feroz Lakhani MD LAB BLOOD ORDERABLES Final Re sult [facility] from Last 3 Months or Most Recently Relevant to Health Maintenance Insurance [place] [employer] Care Teams Short Order Fry Cook Relationship Specialty Start Date End Date Samuel Hilario MD [address] [place] [phone] PCP - General Internal Medicine 05/26/21
--- OUTSIDE RECORDS SUMMARY | 2024-05-30 18:22 | XMS_ITS | Clinical Summary ---
Author Organization 175 [facility] Address [address] [place] [phone] Phone Care Team Providers Care Rodbuster Name Role Phone Samuel Hilario MD Primary Care Provider [phone] Allergies Active Allergy Reactions Criticality Noted Date Comments Acetaminophen 05/21/2016 Aspirin 05/21/2016 Cephalexin 05/21/2016 Codeine 05/21/2016 Iodinated Contrast Media 05/21/2016 Menthol-Zinc Oxide Rash 08/19/2005 Naproxen Wheezing 08/19/2005 Nsaids (Non-Steroidal Anti-I nflammatory Drug) Anaphylaxis High 03/18/2014 Oxycodone-Acetaminophen 05/21/2016 Peanut Butter Flavor 10/02/2020 Shellfish Containing Products Anaphylaxis High 04/17 Shellfish Derived Anaphylaxis High 05/15/2009 Topiramate 05/21/2016 Medications Medication Sig Dispensed Refills Start Date End Date Status polyethylene glycol (MIRALAX) 17 gram packet DISSOLVE 1 capful (17gm) IN WATER AND DRINK 1 TO 2 TIMES daily as NEEDED FOR CONSTIPATION 10/18/2023 Active zinc oxide 20 % ointment APPLY TO THE AFFECTED AREA TOPICALLY two (2) times a day 10/13/2023 Active fluconazole (DIFLUCAN) 150 mg tablet Take one tab today, if no improvement in 3 days then take 2nd dose 07/01/2023 Active nystatin-triamcinol one (MYCOLOG II) ointment Apply to affected area BID for up to 2 weeks 07/01/2023 Active LACTOBACILLUS BIFIDUS ORAL Take 1 capsule by mouth 1 (one) time each day. 03/09/2022 Active empagliflozin-metfo rmin (Synjardy XR) 12.5-1,000 mg tablet, IR - ER, biphasic 24hr Take by mouth. 1 at bedtime Active apixaban (ELIQUIS) 5 mg tablet Take by mouth. Active montelukast (SINGULAIR) 10 mg tablet Take 1 tablet (10 mg total) by mouth at bedtime. For 30 days 10/19/2017 Active oxyCODONE (ROXICODONE) 30 mg immediate release tablet Take 1 tablet (30 mg total) by mouth 3 (three) times a day if needed for moderate pain. Max Daily Amount: 90 mg 08/04/2017 Active EASY COMFORT LANCETS MISC USE TO TEST FINGER STICK BLOOD SUGAR THREE TIMES DAILY 08/04/2017 Active mometasone (ELOCON) 0.1 % cream Apply sparingly first before calcipotriene twice a day to affected areas on arms and chest as needed 08/04/2017 Active isopropyl alcohol-benzocaine 70-6 % pads, medicated USE TOPICALLY THREE TIMES DAILY DIRECTED 07/12/2017 Active cyproheptadine (PERIACTIN) 4 mg tablet TAKE ONE TABLET BY MOUTH 3 (THREE) TIMES A DAY NEEDED FOR ITCH 07/12/2017 Active insulin glargine,hum.rec.an log (Basaglar KwchemaPen U-100 Insulin) 100 unit/mL (3 mL) injection pen INJECT 75 UNITS UNDER THE SKIN DAILY 07/12/2017 Active cetirizine (ZyrTEC) 10 mg tablet Take 1 tablet (10 mg total) by mouth 1 (one) time each day. 06/06/2017 Active atorvastatin (LIPITOR) 10 mg tablet Take 1 tablet (10 mg total) by mouth 1 (one) time each day. 06/06/2017 Active losartan (COZAAR) 100 mg tablet Take 1 tablet (100 mg total) by mouth 1 (one) time each day. 06/06/2017 Active salmeteroL (SEREVENT) 50 mcg/dose diskus inhaler Inhale 1 puff by mouth 2 (two) times a day. For 30 days 06/01/2017 Active azelastine (ASTELIN) 137 mcg (0.1 %) nasal spray 2 Sprays by Each Nare route 2 times daily for 30 days. Use in each nostril as directed 06/01/2017 Active fluticasone HFA (FLOVENT HFA) 110 mcg/actuation inhaler Inhale 2 puffs by mouth 2 (two) times a day. For 30 days 06/01/2017 Active levalbuterol (XOPENEX) 0.63 mg/3 mL nebulizer solution Take 1 ampule by nebulization every 4 (four) hours if needed for wheezing. 06/01/2017 Active albuterol HFA (PROAIR HFA ; PROVENTIL HFA ; VENTOLIN HFA) 90 mcg/actuation inhaler Inhale 2 puffs by mouth every 4 (four) hours if needed for wheezing or shortness of breath (for up to 30 days). 06/01/2017 Active beclomethasone (QNASL) 80 mcg/actuation HFA aerosol inhaler 2 Squirts by Nasal route daily for 30 days. 06/01/2017 Active lidocaine hydrogel ([facility]) 2 % topical spray Apply sparingly 2-3 times a day to affected areas on right arm and chest if itchy 04/14/2017 Active pantoprazole (PROTONIX) 40 mg EC tablet Take 1 tablet (40 mg total) by mouth 1 (one) time each day. 04/11/2017 Active tiZANidine (ZANAFLEX) 2 mg tablet Take 1 tablet (2 mg total) by mouth every 8 (eight) hours if needed for muscle spasms (for up to 5 days). 03/25/2017 Active pen needle, diabetic 32 gauge x needle Inject 5x daily 03/01/2017 Active blood sugar diagnostic (FreeStyle Lite Strips) test strip USE TO TEST FINGER STICK BLOOD SUGAR THREE TIMES DAILY 02/07/2017 Active temazepam (RESTORIL) 15 mg capsule Take 1 capsule (15 mg total) by mouth at bedtime as needed. Max Daily Amount: 15 mg Active calcipotriene (DOVONOX) 0.005 % ointment Apply sparingly second after mometasone twice a day to affected areas on arms and legs as needed 11/13/2016 Active mirabegron (Myrbetriq) 25 mg 24 hr tablet 1 Tab daily. 09/10/2016 Active insulin lispro (HumaLOG KwikPen Insulin) 100 unit/mL injection pen Inject 5-10 Units into the skin 3 times daily (with meals). 10/01/2016 Active clobetasoL (TEMOVATE) 0.05 % cream To affected area 2-3 times daily for no more than 2-3 weeks, then only using on the weekends prn 08/11/2016 Active hydrOXYzine HCL (ATARAX) 10 mg tablet Take 1 tablet (10 mg total) by mouth 3 (three) times a day if needed for itching. 08/11/2016 Active betamethasone, augmented, (DIPROLENE-AF) 0.05 % cream Apply to eczematous patches daily as needed, for no longer than a 2-3 week period, then only on Sat/Sun 08/11/2016 Active citalopram (CeleXA) 20 mg tablet Take 1 tablet (20 mg total) by mouth 1 (one) time each day. Active albuterol HFA (PROAIR HFA ; PROVENTIL HFA ; VENTOLIN HFA) 90 mcg/actuation inhaler Inhale 2 puffs by mouth every 4 (four) hours if needed. 03/20/2009 Active oxycodone HCl/acetaminophen (TYLOX ORAL) 1 CAPSULE EVERY 6 HOURS NEEDED 08/28/2009 Active incontinence pad, liner, disp pad use as directed 08/05/2009 Acti ve QUEtiapine (SEROquel) 100 mg tablet 1 tab at hs 07/08/2009 Active mirtazapine (REMERON) 15 mg tablet 1 TABLET DAILY 07/08/2009 Active azelastine HCl (AZELASTINE NASL) 2 sprays each nostril each day Active ipratropium-albuter oL (DUONEB) 0.5-2.5 mg/3 mL nebulizer solution 3 ML 4 TIMES DAILY 07/02/2009 Active triamcinolone (KENALOG) 0.1 % cream apply bid to affected areas 05/28/2009 Active hydroCHLOROthiazide (HYDRODIURIL) 25 mg tablet 1 TABLET DAILY 05/28/2009 Active metoprolol succinate (TOPROL-XL) 100 mg 24 hr tablet 1 TABLET DAILY 05/28/2009 Active UNDERPADS MISC use for bed at night for incontinence 04/25/2009 Active docusate sodium (STOOL SOFTENER ORAL) None Entered Active albuterol HFA (PROAIR HFA ; PROVENTIL HFA ; VENTOLIN HFA) 90 mcg/actuation inhaler Inhale 2 puffs by mouth every 4 (four) hours if needed. Active clotrimazole-betame thasone (LOTRISONE) 1-0.05 % cream apply to affected area bid Active fluticasone-salmete rol (Advair Diskus) 250-50 mcg/dose diskus inhaler 1 PUFF BID Active loratadine (Claritin) 10 mg tablet 1 po qd prn Active Active Problems Problem Noted Date Diagnosed Date Hypertension 03/27/2024 Postmenopausal bleeding 10/07/2022 Overview (03/27/2024): Last Assessment & Plan: I discussed the common causes of postmenopausal bleeding including trauma, atrophy, and endometrial polyps, as well as less common but more concerning causes including endometrial hyperplasia and endometrial carcinoma. Recommend pelvic ultrasound, which was ordered today. Discussed recommendation for endometrial sampling, as well, particulary if the endometrial stripe measures >4mm on ultrasound. I reviewed with the patient that it is reasonable to continue with expectant management if the endometrial stripe is <4mm, however if she experiences another episode of PMB endometrial sampling would be indicated at that time. All questions answered. Diabetic gastroparesis 08/25/2022 Prurigo nodularis 11/13/2016 Overview (03/27/2024): Prurigo nodularis 11/22 right arm Generalized headaches 05/31/2016 Diarrhea 02/13/2016 Overview (03/27/2024): Pleet 02/21 prob IBS Fatty liver 01/02/2016 Tardive dyskinesia 09/04/2015 Overview (03/27/2024): 08/22. Abilify Carpal tunnel syndrome 05/18/2014 Overview (03/27/2024): left Rotator cuff tear 05/18/2014 Overview (03/27/2024): Chronic anterior/superior tear, managed medically Chronic shoulder pain 04/15/2014 Overview (03/27/2024): Left rotator tear per pt. surg declined by ortho Chronic pain 04/15/2014 Overview (03/27/2024): Left upper leg. ?neuropathy. Intol gabapentin Fibromyalgia Pain clinic injection 09/20. 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 See Tel. 02/02/16 Urinary incontinence 03/29/2014 Overview (03/27/2024): Darline. 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 08/19/2005 Overview (03/27/2024): from birthcontrol.had amputation on 10/11.on coumadin since October previous pcp dr ANA ignacio u/s negative in [place] 08/16/05 plastic sugeon for wound care s/p amputation.sees dr loyd for infection suresh gray is her plastic surgeon just finished reconstruciton Heartburn 08/19/2005 Phantom limb syndrome 08/19/2005 Overview (03/27/2024): IMO update Asthma 08/19/2005 Depressive disorder 08/19/2005 Overview (03/27/2024): [facility].they give wellbutrin,remerenon,seroquel Encounters Date Type Department Care Team Description 05/14/2024 Telephone Orthopedic Surgery [facility] [address] [phone] Nolberto Cruz DPM medication 05/10/2024 1:30 PM EST Consult Orthopedic Surgery [facility] [address] [phone] Nolberto Cruz, DPM Dermatophytosis of nail (Primary Dx); Hx of BKA, left ([facility]); Type II diabetes mellitus with peripheral circulatory disorder ([facility]); Diabetic mononeuropathy simplex ([facility]); Corns and callosities from Last 3 Months Immunizations Name Administration Dates Next Due Influenza Quadravalent, MDCK , 0.5ml, with preservative (Flucelvax) 6mo and older 02/02/2017 Moderna SARS-CoV-2 COVID-19, mRNA, LNP-S, preservative free 09/19/2020,08/21/2020 Pneumococcal polysaccharide 23 valent (Pneumovax 23) 2yo and older 04/29/2014 Tdap Tetanus diptheria acell ular pertussis (Boostrix; Adacel) 7yo and older 04/17/2015 Surgical History Surgery Date Site/Laterality Comments ENDOMETRIAL ABLATION 2006 PROCEDURE: [place] ENDOMETRIAL ABLTJ THERMAL W/O HYSTEROSCOPIC GUID; COMMENT: Whit OTHER SURGICAL HISTORY 2011 Left PROCEDURE: HISTORICAL BELOW KNEE AMP; COMMENT: vascular problems COLONOSCOPY 08/20/2008 PROCEDURE: HISTORICAL COLONOSCOPY; COMMENT: normal TUBAL LIGATION PROCEDURE: HISTORICAL TUBAL LIGATION CARPAL TUNNEL RELEASE 2021 PROCEDURE: [place] NEUROPLASTY &/TRANSPOS MEDIAN NRV CARPAL TUNNE Medical History Medical History Date Comments 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) DX:Arterial embolism and thr ombosis of lower extremity (HCC) Left hip pain DX:Left hip pain Amenorrhea DX:Amenorrhea Chronic abdominal pain DX:Chroni c abdominal pain Asthma DX:Asthma Obesity DX:Obesity Amputation of leg (CMS/HCC) DX:A mputation of leg ([facility]) Incontinence DX:Incontinence Otitis media DX:Otitis media Pelvic pain DX:Pelvic pain Left shoulder pain DX:Left shoul krystle pain Sleep apnea DX:Sleep apnea; COMMENT: CPAP Historical Medical DX 2004 DX:HTN; CO MMENT: Metropolol and Buspar Rotator cuff tear 05/18/2014 DX:Rotator cuf f tear; COMMENT: Chronic anterior/superior tear, managed medically Carpal tunnel syndrome 05/18/2014 DX:Carpal tunnel syndrome; COMMENT: left History of leg amputation ([facility]) 03/18/2014 DX:History of leg amputation ([facility]); COMMENT: BKA 08/10/11 (leg not specified) History of pulmonary embolism 03/18/2014 DX :History of pulmonary embolism; COMMENT: 2011 MUSA (obstructive sleep apnea) 03/18/2014 DX :MUSA (obstructive sleep apnea) Impaired fasting glucose 03/18/2014 DX:Impa ired fasting glucose Lumbosacral spondylosis with out myelopathy 03/18/2014 DX:Lumbosacral spondylosis w ithout myelopathy Eczema 03/18/2014 DX:Eczema Morbid obesity ([facility]) 03/18/2014 DX:Morb id obesity ([facility]); COMMENT: BMI 43.0 on 02/07/14 Hypertension DX:Hypertension Type 2 diabetes mellitus wit hout complications ([facility]) DX:Type 2 diabetes mellitus without complications ([facility]) Diabetic gastroparesis ([facility]) 08/25/2022 DX:Diabetic gastroparesis ([facility]) Family History Medical History Relation Name Comments Breast cancer Aunt father's siste r, unsure of age at dx Coronary artery disease Mother Blindness Neg Hx Cancer of Small Bowel Neg Hx Cataracts Neg Hx Colon cancer Neg Hx Glaucoma Neg Hx Kidney cancer Neg Hx Macular degeneration Neg Hx Ovarian cancer Neg Hx Pancreatic cancer Neg Hx Strabismus Neg Hx Uterine cancer Neg Hx Relation Name Status Comments Aunt Alive Brother Alive 2,healthy Father throat ca/copd; colostomy Maternal Grandfather throat cancer Maternal Grandmother DM Mother Alive CAD Sister Alive 3,healthy Social History Tobacco Use Types Packs/Day Years [...] file Not on file Not on file Obstetrics History Last Filed Vital Signs Vital Sign Reading Time Taken Comments Blood Pressure 101/66 07/01/2023 1:38 PM EST Pulse 88 07/01/2023 1:38 PM EST Temperature - - Respiratory Rate - - Oxygen Saturation - - Inhaled Oxygen Concentration - - Weight 91.2 kg (201 lb) 05/10/2024 1:49 PM EST Height 157.5 cm (5' 2.01 ) 05/10/2024 1:49 PM ES T Body Mass Index 36.75 05/10/2024 1:49 PM EST Plan of Treatment Upcoming Encounters Date Type Department Care Team (Late st Contact Info) Description 06/21/2024 3:15 PM EST Office Visit Orthopedic Surgery [place] [id number] [phone] Nolberto Cruz, DPM [address] [place] [address] 08/07/2024 2:30 PM EDT Office Visit Obstetrics & Gynecology - [facility] [address] [place] [phone] Tony Matt, NAZ [address] [place] [id number] Health Maintenance Due Date Last Done Comments Diabetes: Annual GFR (Glomerular Filtration Rate) 1960 Diabetes: Annual Foot Exam 1972 Diabetes: Annual Retina Eye Exam 1972 Pneumococcal Vaccine: Pediatrics (0 to 5 Years) and At-Risk Patients (6 to 64 Years) (2 of 2 - PCV) 04/29/2015 04/29/2014 Cholesterol Screening (Lipid Panel) 04/17/2022 02/25/2017 Colorectal Cancer Screening: Colonoscopy 04/17/2022 Depression Screening 04/17/2022 08/19/2005 HIV Screening 04/17/2022 Social Influencers of Health Screening 04/17/2022 Diabetes: Annual Urine Albumin-Creatinine Ratio (uACR) 04/24/2022 02/25/2017 Diabetes: Blood Sugar Control Test (HGBA1C) 04/24/2022 06/17/2021, 02/25/2017 Hypertension/CHF/CAD Annual BMP Blood Test 04/24/2022 Breast Cancer Screening 10/21/2022 10/22/19, 08/22/2018, 08/18/2017 DTaP,Tdap,and Td Vaccines (2 - Td or Tdap) 04/17/2025 04/17/2015 Cervical Cancer Screening: HPV 10/02/2025 10/02/2020 Hepatitis C Screening Completed 01/02/2016 RSV Immunization Patients 60+ Years Old Completed 02/28/2023 Zoster Vaccines Completed 05/12/2023, 02/28/2023 COVID-19 Vaccine Completed 03/08/2024, 06/2021, 05/12/2021, Additional history exists Influenza Vaccine Completed 03/08/2024, , 05/10/2021, Additional history exists HIB Vaccines Aged Out No longer eligi ble based on patient's age to complete this topic HPV Vaccines Aged Out No longer eligi ble based on patient's age to complete this topic Hepatitis A Vaccines Aged Out No long er eligible based on patient's age to complete this topic Hepatitis B Vaccines Aged Out No long er eligible based on patient's age to complete this topic IPV Vaccines Aged Out No longer eligi ble based on patient's age to complete this topic MMR Vaccines Aged Out No longer eligi ble based on patient's age to complete this topic Meningococcal ACWY Vaccine Aged Out N o longer eligible based on patient's age to complete this topic RSV Immunization Patients Under 20 months Aged Out No longer eligible based on patient's age to complete this topic Varicella Vaccines Aged Out No longer eligible based on patient's age to complete this topic Procedures Procedure Name Priority Date/Time Associated Diagnosis Comments LAURA SCREENING DIGITAL Routine 10/21/2020 11:47 AM EDT Encounter for screening mammogram for malignant neoplasm of breast HM HPV Routine 10/02/2020 HM URINE ALBUMIN CREATININE RATIO Routine 02/25/2017 HEMOGLOBIN A1C Routine 02/25/2017 LIPID PANEL Routine 02/25/2017 HEPATITIS C SCREENING Routine 01/02/2016 DEPRESSION SCREENING Routine 08/19/2005 from Last 3 Months or Most Recently Relevant to Health Maintenance Results * LAURA SCREENING DIGITAL (10/21/2020 11:47 AM EDT) Anatomical Region Laterality Modality Mammography 10/21/2020 10:5 4 AM EDT Narrative 10/21/2020 11:47 AM EDT [facility] Diagnostic Imaging Department [address] [place] [address] Patient: ??COLON,MARIBELL ?/Age/Sex: 1960 - 60 - F Unit#: ??[id number] ? Location/Status: ??SPDIMAM/REG CLI ? Mnemonic/Ordering Site: ??DIGSC/SPMAM Ordering Physician: ??TONY MATT CNM Laura Screening Digital - 10/21/201120 EXAM: Laura Screening Digital EXAM DATE AND TIME: 10/21/2020 11:22 AM HISTORY: ??Screening. COMPARISON: ??08/22/18, 08/18/17, 07/15/16, 06/05/15 TECHNIQUE: CC and MLO views of both breasts were obtained using full field digital mammography. Bilateral digital breast tomosynthesis was performed in the MLO projection. Computer aided detection with the Twijector 7.2-H was employed. TISSUE DENSITY: a. The breasts are almost entirely fatty. FINDINGS: No suspicious masses, grouped microcalcifications, or areas of architectural distortion are seen. Vascular calcification is present. The skin is unremarkable. IMPRESSION: Stable mammographic appearance of the breasts. ??No evidence of malignancy is seen. A negative mammogram in the presence of a clinically suspicious palpable abnormality does not preclude the possibility of malignancy or alter the indications for biopsy. BI-RADS: ??Category 2: Benign RECOMMENDATION(S): 1: Routine screening mammogram BILATERAL in 1 year. [id number], [id number] 3342F, 7025F Dictating Physician: ??BONNIE OSUNA MD Electronically Signed by: ??BONNIE OSUNA MD Dic Date/Time: ??10/21/20 1146 Sign date/Time: ??10/21/20 1147 Procedure Note Bonnie Osuna MD - 04/27/2022 [facility] Diagnostic Imaging Department [address] [place] [id number] Patient: MARIBELL TAYLOR./Age/Sex: 1960 - 60 - F Unit#: [id number] Location/Status: [facility]/REG CLI Mnemonic/Ordering Site: [facility] Ordering Physician: TONY MATT CNM [facility] Screening Digital - 10/21/20 - 112 EXAM: [facility] Screening Digital EXAM DATE AND TIME: 10/21/2020 11:22 AM HISTORY: Screening. COMPARISON: 08/22/18, 08/18/17, 07/15/16, 06/05/15 TECHNIQUE: CC and MLO views of both breasts were obtained using fullfield digital mammography. Bilateral digital breast tomosynthesis was performedin the MLO projection. Computer aided detection with the [employer].2-AirPOSas employed. TISSUE DENSITY: a. The breasts are almost entirely fatty. FINDINGS: No suspicious masses, grouped microcalcifications, or areas ofarchitectural distortion are seen. Vascular calcification is present. The skin is unremarkable. IMPRESSION: Stable mammographic appearance of the breasts. No evidence of malignancyis seen. A negative mammogram in the presence of a clinically suspicious palpable abnormality does not preclude the possibility of malignancy or alter the indications for biopsy. BI-RADS: Category 2: Benign RECOMMENDATION(S): 1: Routine screening mammogram BILATERAL in 1 year. [id number], [id number] 3342F, 7025F Dictating Physician: BONNIE OSUNA MD Electronically Signed by: BONNIE OSUNA MD Dic Date/Time: 10/21/20 1146 Sign date/Time: 10/21/20 1147 Tony Matt CNM IMG BI PROCEDURES * Cervical Cancer Screening: HPV (10/02/2020) [facility] Cervical Cancer Screening: HPV abstracted, negative Historical Provider MD ISABEL CARRENO * Urine Albumin Creatinine Ratio (02/25/2017) [facility] Urine Albumin Creatinine Ratio abstracted Historical Provider MD ISABEL CARRENO E * (ABNORMAL) Hemoglobin A1c (02/25/2017) [facility] Hemoglobin A1C 7.4(A) 4.0 - 6.0 % Blood Venous blood specimen / Unknown Historical Provider LAB BLOOD ORDERAB LES * (ABNORMAL) Lipid panel (02/25/2017) [facility] LDL/HDL Ratio 4 0 - 4 Triglycerides 280(A) 0 - 150 mg/dL Cholesterol 110 0 - 200 mg/dL HDL 29(A) 40 mg/dL LDL Cholesterol 25 0 - 100 mg/dL Blood Venous blood specimen / Unknown Historical Provider LAB BLOOD ORDERAB LES * Hepatitis C Screening (01/02/2016) Hepatitis C Screening abstracted Historical Provider [facility] * Depression Screening (08/19/2005) Depression Screening abstracted Historical Provider [facility] from Last 3 Months or Most Recently Relevant to Health Maintenance Care Teams Rodbuster Relationship Specialty Start Date End Date Samuel Hilario MD [address] [place] [phone] PCP - General Internal Medicine 03/19/20
--- OUTSIDE RECORDS SUMMARY | 2024-05-30 18:22 | XMS_ITS | Data Portability ---
Author Organization [place] - [facility], Allergy Address [address] [address] Care Team Providers Care Military Education Coordinator Name Role Phone ELLA MICHAEL Primary Care Provider [phone] Assessment No assessment recorded. Plan of Treatment Reminders Order Date Submit Date Provider Last Modified By Organization Details Last Modified Time Details Appointments [facility] 15 2024 10:15A M DURAN NELSON MD Not available Not available Not available Lab None recorded . Referral None recorded . Procedures None recorded . Surgeries None recorded . Imaging MRI, brain, w/wo contrast - prefers [facility] eld 2023 024 [email or web address] [facility] ([facility]), [address] [place], [address], 01/03/2024 14:20:34 Medication Orders clotrima zole-bet amethaso ne 1 %-0.05 % topical cream 2023 024 [facility] [place], [place] - [id number], [address] [place], [address], 02/29/2024 15:08:30 Patient TargetsNo targets recorded. Patient InstructionsNo instructions recorded. Reason for Referral None Reported. Results Created Date Observation Date Name Description Value Unit Range Abnormal Flag Note LastModifiedBy Organization Detail LastModifiedTime 12/13/19 24 12/12/2023 MRI, brain + brain stem, w/wo contr ast [facility] Access ion Number : [id number] Jhoana lange Name: Maribell Sweeneya l Record Number : [id number] Date of : 1960 Date of Exam: 2023 Referr ing Physic kellen: Duran Estes [facility] [place] [address] [place] [address] Exam: MR Brain (C-/C+ ) CPT 23926 Room Descri ption: [facility] Verio 3.0T MR Brain (C-/C+ ) CPT 66975 INDICA TION / [facility] ON: [...] onical ly Signed By: Abdulaziz Parmar MD [facility] ([facility]) [address] [facility] [place], [address], 12/31/2023 04:57:08 12/28/19 24 07/18/2023 imagi ng/di [...] Details Recorded Time Otalgia of left ear 9934992026 Active 2020 Otalgia, left ear; Note: Date Diagnosed : 04/08/2021 3:18 PM (H92.02) Not Available [facility] 4 02:15:47 Diffuse otitis externa 18772387 Active 2020 Diffuse otitis externa, left ear; Note: Date Diagnosed : 07/17/2020 5:26 PM (H60.312) Note: Date Diagnosed : 07/17/2020 5:26 PM (H60.312) Not Available [facility] 4 00:49:08 Pain of left temporoma ndibular joint 53121195784 754679 Active 2020 Arthralgi a of left temporoma ndibular joint; Note: Date Diagnosed : 04/08/2021 3:18 PM (M26.622) Not Available [facility] 4 02:15:35 Tinnitus of left ear 42217256510 06 Active 2020 Tinnitus, left ear; Note: Date Diagnosed : 04/08/2021 3:18 PM (H93.12) Not Available [facility] 4 02:13:36 Disorder of nasal sinus 9360877 Active 2019 Unspecifi ed disorder of nose and nasal sinuses; Note: Date Diagnosed : 12/11/2019 7:07 PM (J34.9) Not Available [facility] 4 02:14:50 Disorder of the nose 51225959 Active 2019 Unspecifi ed disorder of nose and nasal sinuses; Note: Date Diagnosed : 12/11/2019 7:07 PM (J34.9) Not Available [facility] 4 02:14:50 Dysphagia 39295053 Active 2017 Dysphagia , unspecifi ed; Note: Date Diagnosed : 10/26/2017 3:35 PM (R13.10) Not Available [facility] 4 02:15:17 Acute maxillary sinusitis 84042038 Active 2019 Acute maxillary sinusitis , unspecifi ed; Note: Date Diagnosed : 12/11/2019 7:07 PM (J01.00) Not Available [facility] 4 02:13:26 Itching of skin 304565680 Active 2019 Pruritus, unspecifi ed; Note: Date Diagnosed : 12/17/2019 9:41 AM (L29.9) Not Available [facility] 4 02:15:04 Gastroeso phageal reflux disease without esophagit is 321847936 Active 2017 Gastro-es ophageal reflux disease without esophagit is; Note: Date Diagnosed : 10/26/2017 3:36 PM (K21.9) Not Available [facility] 4 02:13:57 Sensorine ural hearing loss 24570210 Active 2020 Sensorine ural hearing loss, unilatera l, left ear, with unrestric trisha hearing on the contralat eral side; Note: Date Diagnosed : 08/04/2020 11:03 AM (H90.42) Not Available [facility] 4 02:14:29 Trigemina l neuralgia 22782592 Active 2023 DURAN NELSON MD [address] [place] [address], [place], [address] , [facility] - [facility] 4 18:40:58 Localized masticato ry muscle soreness 916869966 Active 2023 Myalgia of masticati on muscle; Note: Date Diagnosed : 07/26/2023 2:53 PM (M79.11) Not Available [facility] 4 02:15:11 Type 2 diabetes mellitus without complicat ion 460011740 Active 2023 Type 2 diabetes mellitus without complicat ions; Note: Date Diagnosed : 06/13/2023 1:31 PM (E11.9) Not Available [facility] 4 02:15:17 Problem Notes None recorded. Procedures Surgical History None recorded. Imaging Results Imaging Date Name Status LastModified by Organiz ation Details LastModified Time 12/12/2023 MRI, brain + brain stem, w/wo contrast completed [facility] ([facility]) [address], [place], [address], 12/31/2023 04:57:08 07/18/2023 imaging/diagn ostic result completed [...] Name and Address Organization Details Recorded Time 76167 aspirin medicatio n other Not available Not available 09/20/2023 1191 RxNorm React ion: unkno wn, unspe cifie d;; Not Available [facility] 4 00:49:02 92747 acetamino phen / oxycodone medicatio n other Not available Not available 09/20/2023 84249 3 RxNorm React ion: unkno wn, unspe cifie d;; Not Available [facility] 4 00:49:48 02682 naproxen medicatio n other Not available Not available 09/20/2023 7258 RxNorm React ion: unkno wn, unspe cifie d;; Not Available [facility] 4 00:49:48 Medications Name Sig Start [...] a day 2023 active Medicati on ID: 632304 D uration Value: 10 Brand Name: ciproflo [...] mg tablet 2017 active Medicati on ID: 565740 D uration Value: 30 Brand Name: cyprohep [...] topical solution 01/11 completed Medicati on ID: 764376 D uration Value: 14 Prescri bed By [...] small amount 2020 active Medicati on ID: 052807 D uration Value: 7 Prescri bed By [...] drops,randy pension 01/11 completed Medicati on ID: 711799 Aquilino newberry By Name: AZUCENA Andrade nd [...] 5 drop 2020 active Medicati on ID: 856664 D uration Value: 30 Prescri bed By [...] by mouth 10/19 completed Medicati on ID: 337822 D uration Value: 30 Prescri bed By Name: Paula KrugerVINAY nd Name: omeprazo le Send Method: E-Prescr ibed Sub s Allowed: subs OK Speci al Instruct ion: Take 1 tablet by mouth every day before a meal Med icationG enericNa me: omeprazo le Medic ation ID: [id number] D uration Value: 30 Prescri bed By [...] Available No t Available Comfort EZ Pen [place] 32 gauge x 5/32 USE TO INJECT insulin 5 TIMES A DAY active Not Available Not Available No t Available Jardiance 10 mg tablet TAKE 1 TABLET BY MOUTH EVERY MORNING active Not Available Not Available No t Available Flonase Allergy Relief 50 mcg/actua tion nasal spray,randy pension 2 puff into both nostrils 2019 active Medicati on ID: 956706 D uration Value: 30 Prescri bed By [...] Available No t Available FreeStyle Antonio 2 [place] USE DIRECTED active Not Available Not Available [...] Updated DateTime 12/27/2023 157.48 cm 35.5 kg/m2 57710.92 g Nyla Rowland [facility] 12/27/2023 13:07:29 Date Recorded Body height Body mass index (BMI) Body weight Provider Name and Address Organization Details Last Updated DateTime 01/12/2024 157.48 cm 35.5 kg/m2 90404.92 g Nyla Rowland [facility] 01/12/2024 13:05:16 Date Recorded Body height Body mass index (BMI) Body weight Provider Name and Address Organization Details Last Updated DateTime 10/20/2023 157.48 cm 38.2 kg/m2 73027.81 g Nyla Rowland [facility] 10/20/2023 13:21:31 Social History None recorded. Functional [...] Note [id number] DURAN NELSON MD [facility] on [address] [place] [address] 10/20/2023 13:04:44 10/20/2023 14:59:17 Otalgia of left ear 8710205387 H92.02 63 yo F presents for follow up of her left ear. She is here for scheduled cerumen removal, but she is concerned about persistent pain. She was seen in [place] at the end of January and had [...] her midface. [place] [facility]. Trigeminal neuralgia 316 32826 G50.0 [id number] DURAN NELSON MD [facility] on [address] [place] [address] 12/27/2023 13:00:52 12/27/2023 13:42:13 Diffuse otitis externa 04460119 H60.312 Otalgia of left ear 1010 648535 H92.02 63 yo F presents for follow up of her left ear. She is here for scheduled cerumen removal, but she is concerned about persistent pain. She was seen in [place] at the end of January and had [...] Lotrisone into the canal. Follow-up 2 weeks. [id number] DURAN NELSON MD [facility] on [address] [facility] [address] 01/12/2024 12:56:02 01/12/2024 14:21:07 Otalgia of left ear 4465610221 H92.02 63 yo F presents for follow [...] Yost Member ID Guarantor Name 10/20/2023 1 [facility] [id number] Maribell H Colon [id number] 1 Maribell H Colon 12/27/2023 1 [facility] [id number] Maribell H Colon [id number] 1 Maribell H Colon 01/12/2024 1 [facility] [id number] Maribell H Colon [id number] 1 Maribell H Colon Notes Date Note Type Note Provider Name and Address Organization Details Recorded Time 10/20/2023 text/html 63 yo F presents for follow up of her left ear. She is here for scheduled cerumen removal, but she is concerned about persistent pain. She was seen in [place] at the end of January and had [...] a CT scan of the neck at [place] which did not show any sign of [...] mouth to to tightness DURAN NELSON MD [address] [place] [address], [address], [facility] - [facility] 10/30/2023 18:46:54 12/27/2023 text/html 63-year-old luis carlos bull presents today for follow-up and reassessment of her ear. PV:63 yo F presents for follow up of her left ear. She is here for scheduled cerumen removal, but she is concerned about persistent pain. She was seen in [place] at the end of January and had [...] a CT scan of the neck at [place] which did not show any sign of [...] to to tightness DURAN NELSON MD [address] [facility],[address], [address], [facility] - [facility] 01/03/2024 08:17:01 01/12/2024 text/html 63 yo F presents for follow up after lotrisone injection on the left. She does feel improvement in left otalgia. \ She was seen in [place] at the end of January and had [...] on the left. DURAN NELSON MD [address] [facility],[place] [address], [place], [address], [place] - [facility] 01/18/2024 06:10:12 OBGyn Episode No OBEpisode recorded.
--- OUTSIDE RECORDS SUMMARY | 2024-05-30 18:22 | XMS_ITS | Encounter Summary ---
Author Organization [facility] Address [address] [place] [address] Care Team Providers Care Igniter Capper Name Role Phone Samuel Hilario MD Primary Care Provider [phone] Reason for Visit * Reason Onset Date Comments medication 05/14/2024 Encounter Details Date Type Department Care Team ([facility] Contact Info) Description 05/14/2024 Telephone Orthopedic Surgery [facility] [address] [address] Nolberto Cruz, DPM [address] [place] [address] medication Social History Tobacco Use Types Packs/Day Years [...] on file documented as of this encounter Progress Notes * Katia Beavers - 05/14/2024 2:45 PM EST Patient is calling inquiring on the status of a script for a Cream for her right foot for dry skin [facility]/ Please advise. She can be reached @ [phone] Thanks. documented in this encounter Plan of Treatment Upcoming Encounters Date Type Department Care Team (Late Contact Info) Description 06/21/2024 3:15 PM EST Office Visit Orthopedic Surgery - [place] [address] [facility] [address] [place] [phone] Nolberto Cruz, DPM [address] [place] [address] 08/07/2024 2:30 PM EDT Office Visit Obstetrics & Gynecology - [address] [phone] Betty Matt, NAZ [address] [place] [address] documented as of this encounter Visit Diagnoses Not on filedocumented in this encounter Care Teams Igniter Capper Relationship Specialty Start Date End Date Samuel Hilario MD [address] [place] [address] PCP - General Internal Medicine 03/19/20 documented as of this encounter
== END 2024-05-30 16:41 | disposition home or self-care (01) ==
LOC: HO.MRI 16:40
PROVIDERS: PCP Hospitalist; Visit Provider Nurse Practitioner Family
DX: M26.622 Arthralgia of left temporomandibular joint (principal); M54.2 Cervicalgia; G24.3 Spasmodic torticollis
CPT/HCPCS: 72141

== ENCOUNTER 2024-06-04 11:37 | Outpatient (REF) | payer OTHER, SELFPAY ==
[2024-06-04 12:48] LABS: Appearance Urine Cloudy; Color Urine Yellow; Glucose Urine UA Negative (Negative); Leukocyte Esterase Urine Large (3+) (Negative); Nitrite Urine Negative (Negative); PH 5.5 (5.0-9.0); UMIC TRIGGER UA YES; Urine Blood Negative (Negative); Urine Ketones Negative (Negative); Urine Protein Negative (Neg-Trace)
[2024-06-04 13:34] LABS: Bacteria Urine 1+ (None Seen); Hyaline Casts Urine 0-2 /LPF (0-2); WBC Urine 0-5 /HPF (0-5)
[2024-06-04 13:35] LABS: RBC Urine 0-2 /HPF (0-2)
--- OUTSIDE RECORDS SUMMARY | 2024-06-04 16:33 | XMS_ITS | Clinical Summary ---
Author Organization [facility] Address [address] [facility] [address] [place] [address] Phone Care Team Providers Care Sales Assistant Institutional Sales Name Role Phone Samuel Hilario MD Primary Care Provider [phone] Allergies Active Allergy Reactions Criticality Noted Date [...] DAY NEEDED 1 Active Comfort EZ Pen [place] 32G X 4 MM [facility] 2 Active Easy Comfort Lancets [facility] 2 Active gemfibrozil (LOPID) 600 MG tablet [...] incontinence 03/29/2014 Overview (09/06/2022): Darline. Changed to [place] Panic attack 03/29/2014 Overview (09/06/2022): Sees psych [...] Orders Only [facility] [address] [place] [phone] Racheal Wood ARNP [address] [phone] Stage 3a chronic kidney disease (HCC); Hypertension; Persistent proteinuria 08/01/2024 11:00 AM EDT Office Visit [facility] [address] [phone] Racheal Wood ARNP [address] [place] [phone] Health Maintenance Due Date Last Done Comments [...] PM EST) Hemoglobin A1C 9.2(H) (4.0-5.6) % [facility] Comment: MONITORING: In known diabetic patients, hemoglobin A1c targets should be discussed with health care provider. DIAGNOSTIC USE: ??The [place] Diabetes Association (ADA) and the World Health [...] Supplement 1 Testing performed or reported by [facility], a Service of [facility], [address] [place] [address] Bertin Bethea MD, Excellence Consultant [facility]# [id number] Blood (Blood, Venous) 06/17/2021 4:28 PM EST 06/17/2021 4:29 PM EST Feroz Lakhani MD LAB BLOOD ORDERABLES Final Re sult [facility] from Last 3 Months or Most Recently Relevant to Health Maintenance Insurance [place] [employer] Care Teams Sales Assistant Institutional Sales Relationship Specialty Start Date End Date Samuel Hilario MD [address] [place] [phone] PCP - General Internal Medicine 05/26/21
--- OUTSIDE RECORDS SUMMARY | 2024-06-04 16:33 | XMS_ITS | Clinical Summary ---
Author Organization [facility] Address [address] [place] [phone] Phone Care Team Providers Care Railroad Auditor Name Role Phone Samuel Hilario MD Primary Care Provider [phone] Allergies Active Allergy Reactions Criticality Noted Date [...] incontinence 03/29/2014 Overview (03/27/2024): Darline. Changed to [place] Panic attacks 03/29/2014 Overview (03/27/2024): Sees psych [...] Care Team Description 05/14/2024 Telephone Orthopedic Surgery [facility] [address] [phone] Nolberto Cruz DPM medication 05/10/2024 1:30 PM EST Consult Orthopedic Surgery [facility] [address] [phone] Nolberto Cruz, DPM Dermatophytosis of nail (Primary Dx); Hx of BKA, left ([facility]); Type II diabetes mellitus with peripheral circulatory disorder ([facility]); Diabetic mononeuropathy simplex ([facility]); Corns and callosities from Last 3 Months [...] Date Site/Laterality Comments ENDOMETRIAL ABLATION 2006 PROCEDURE: GA ENDOMETRIAL ABLTJ THERMAL W/O HYSTEROSCOPIC GUID; COMMENT: Whit OTHER SURGICAL HISTORY 2011 Left PROCEDURE: HISTORICAL BELOW KNEE AMP; COMMENT: vascular problems COLONOSCOPY 08/20/2008 PROCEDURE: HISTORICAL COLONOSCOPY; COMMENT: normal TUBAL LIGATION PROCEDURE: HISTORICAL TUBAL LIGATION CARPAL TUNNEL RELEASE 2021 PROCEDURE: GA NEUROPLASTY &/TRANSPOS MEDIAN NRV CARPAL TUNNE Medical History Medical History Date Comments 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) DX:Arterial embolism and thr ombosis of lower extremity (HCC) Left hip pain DX:Left hip pain Amenorrhea DX:Amenorrhea Chronic abdominal pain DX:Chroni c abdominal pain Asthma DX:Asthma Obesity DX:Obesity Amputation of leg (CMS/HCC) DX:A mputation of leg ([facility]) Incontinence DX:Incontinence Otitis media DX:Otitis media Pelvic pain DX:Pelvic pain Left shoulder pain DX:Left shoul krystle pain Sleep apnea DX:Sleep apnea; COMMENT: CPAP Historical Medical DX 2004 DX:HTN; CO MMENT: Metropolol and Buspar Rotator cuff tear 05/18/2014 DX:Rotator cuf f tear; COMMENT: Chronic anterior/superior tear, managed medically Carpal tunnel syndrome 05/18/2014 DX:Carpal tunnel syndrome; COMMENT: left History of leg amputation ([facility]) 03/18/2014 DX:History of leg amputation ([facility]); COMMENT: BKA 08/10/11 (leg not specified) History of pulmonary embolism 03/18/2014 DX :History of pulmonary embolism; COMMENT: 2011 MUSA (obstructive sleep apnea) 03/18/2014 DX :MUSA (obstructive sleep apnea) Impaired fasting glucose 03/18/2014 DX:Impa ired fasting glucose Lumbosacral spondylosis with out myelopathy 03/18/2014 DX:Lumbosacral spondylosis w ithout myelopathy Eczema 03/18/2014 DX:Eczema Morbid obesity ([facility]) 03/18/2014 DX:Morb id obesity ([facility]); COMMENT: BMI 43.0 on 02/07/14 Hypertension DX:Hypertension Type 2 diabetes mellitus wit hout complications ([facility]) DX:Type 2 diabetes mellitus without complications ([facility]) Diabetic gastroparesis ([facility]) 08/25/2022 DX:Diabetic gastroparesis ([facility]) Family History Medical History Relation Name Comments [...] 3:15 PM EST Office Visit Orthopedic Surgery [place] [address] [phone] Nolberto Cruz, DPM [address] [address] 08/07/2024 2:30 PM EDT Office Visit Obstetrics & Gynecology - [facility] [address] [place] [phone] Tony Matt, ALAINAM [address] [place] [phone] Health Maintenance Due Date Last Done Comments [...] AM EDT Narrative 10/21/2020 11:47 AM EDT [facility] Diagnostic Imaging Department [address] [place] [address] Patient: ??COLON,MARIBELL ?/Age/Sex: 1960 - 60 - F Unit#: ??[id number] ? Location/Status: ??SPDIMAM/REG CLI ? Mnemonic/Ordering Site: [...] MLO projection. Computer aided detection with the Zentila 7.2-H was employed. TISSUE DENSITY: a. The [...] Routine screening mammogram BILATERAL in 1 year. [address], [id number] 3342F, 7025F Dictating Physician: ??BONNIE OSUNA MD Electronically Signed by: ??BONNIE OSUNA MD Dic Date/Time: ??10/21/20 1146 Sign date/Time: ??10/21/20 1147 Procedure Note Bonnie Osuna MD - 04/27/2022 [facility] Diagnostic Imaging Department [address] [place] [id number] Patient: MARIBELL TAYLOR D.O.B./Age/Sex: 1960 - 60 - F Unit#: [id number] Location/Status: [facility]/REG CLI Mnemonic/Ordering Site: [facility] Ordering Physician: TONY MATT CNM [facility] Screening Digital - 10/21/20 - 1121 EXAM: [facility] Screening Digital EXAM DATE AND TIME: 10/21/2020 11:22 AM HISTORY: Screening. COMPARISON: 08/22/18, 08/18/17, 07/15/16, 06/05/15 TECHNIQUE: CC and MLO views of both breasts were obtained using fullfield digital mammography. Bilateral digital breast tomosynthesis was performedin the MLO projection. Computer aided detection with the Osito[employer] employed. TISSUE DENSITY: a. The breasts are [...] Routine screening mammogram BILATERAL in 1 year. 34377, [id number] 3342F, 7025F Dictating Physician: BONNIE OSUNA MD Electronically Signed by: BONNIE OSUNA MD Dic Date/Time: 10/21/20 1146 Sign date/Time: 10/21/20 1147 Tony Matt CNM IMG BI PROCEDURES * Cervical Cancer Screening: HPV (10/02/2020) [facility] Cervical Cancer Screening: HPV abstracted, negative Historical [facility] * Urine Albumin Creatinine Ratio (02/25/2017) [facility] Urine Albumin Creatinine Ratio abstracted Historical Provider MD ISABEL CARRENO E * (ABNORMAL) Hemoglobin A1c (02/25/2017) [facility] Hemoglobin A1C 7.4(A) 4.0 - 6.0 % Blood Venous blood specimen / Unknown Historical Provider LAB BLOOD ORDERAB LES * (ABNORMAL) Lipid panel (02/25/2017) [facility] LDL/HDL Ratio 4 0 - 4 Triglycerides 280(A) 0 - 150 mg/dL Cholesterol 110 0 - 200 mg/dL HDL 29(A) 40 mg/dL LDL Cholesterol 25 0 - 100 mg/dL Blood Venous blood specimen / Unknown Historical Provider LAB BLOOD ORDERAB LES * Hepatitis C Screening (01/02/2016) Hepatitis C Screening abstracted Historical Provider HEALTH MAINTENANC E * Depression Screening (08/19/2005) Depression Screening abstracted Historical Provider MD HALL MAINTENANC E from Last 3 Months or Most Recently Relevant to Health Maintenance Care Teams Railroad Auditor Relationship Specialty Start Date End Date Samuel Hilario MD [address] [phone] PCP - General Internal Medicine 03/19/20
--- OUTSIDE RECORDS SUMMARY | 2024-06-04 16:33 | XMS_ITS ---
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 Name Role Phone ELLA MICHAEL Primary Care Provider Allergies Allergen (clinical drug ingredient) Drug/Non Drug [...] Drug Allergy Act kathleen REASON FOR VISIT 3 month f/u Medications Medication SIG (Take, Route, Frequency, Duration) Notes Start Date End Date Status predniSONE 10 MG 1 tablet Orally Once a day for 7 days 10/06/2023 Not-Taking Tessalon Perles 100 MG 1 capsule as need ed Orally Three times a day for 7 days 03/19/2022 Not-Taking Cephalexin 500 MG 1 capsule Orally every 8 hours for 7 days 09/21/2023 Not-Taking Trulicity 1.5 MG/0.5ML inject the conten t of 1 pen under the skin each week as directed Subcutaneous weekly for 30 days 02/23/2022 Not-Taking Benzonatate 100 MG 1 capsule as needed Orally Three times a day for 7 days 10/25/2022 Not-Taking oxyCODONE HCl 30 mg TAKE 1 TABLET BY MOUTH 3 (THREE) TIMES A DAY NEEDED FOR PAIN by mouth 3 times a day for 14 days 01/02/2024 Not-Taking predniSONE 20 MG 1 tablet Orally Once a day for 7 days 12/06/2023 Not-Taking Benzonatate 100 MG 1 capsule as needed Orally Three times a day for 7 days 12/06/2023 Not-Taking Benzonatate 100 MG 1 capsule as needed Orally Three times a day for 14 days 02/29/2024 Not-Taking Doxycycline Hyclate 100 MG 1 capsule Orally Twice a day for 7 days 12/06/2023 Not-Taking Ofloxacin 0.3 % 10 drops into affected ear Otic Once a day for 7 days 03/18/2023 Not-Taking Hiscjnla-Loicvonpo-ZN 1 % 4 drops into affected ear Otic Three times a day for 7 days 03/18/2023 Not-Taking Fluconazole 150 mg TAKE 1 TABLET BY MOUTH EVERY 3 DAYS for 3 Not-Taking Tobramycin 0.3 % 1 drop into affected eye Ophthalmic every 4 hrs for 7 days 02/01/2024 Not-Taking predniSONE 20 MG 1 tablet Orally Once a day for 7 days 02/29/2024 Not-Taking ProAir HFA 108 (90 Base) MCG/ACT 2 puffs Inhalation Every 4 hours,PRN:for wheezing for 17 Not-Taking Carafate 1 GM/10ML 10 ml on an empty stomach Orally Twice a day for 30 day(s) 05/04/2021 Not-Taking Lidocaine 5 % 1 patch remove after 12 hours Externally Once a day for 90 days Active Temazepam 30 MG 1 capsule at bedtime as needed Orally Once a day Not-Taking hydrOXYzine HCl 25 MG 1 tablet Orally Once a day for 90 days Active Metoprolol Succinate ER 100 mg TAKE 1 TABLET BY MOUTH ONCE DAILY for 30 days Active Ezetimibe 10 mg TAKE 1 TABLET BY MOUTH ONCE DAILY for 30 days Active tiZANidine HCl 4 mg 1 tablet oral three times a day prn for 10 days Active Montelukast Sodium 10 mg TAKE 1 TABLET B Y MOUTH ONCE A DAY for 30 days Active Omeprazole 40 MG 1 capsule 1/2 to 1 hour before morning meal Orally Once a day for 30 days 04/18/2024 Active Losartan Potassium 100 mg TAKE 1 TABLET BY MOUTH ONCE DAILY for 30 days Active amLODIPine Besylate 5 mg TAKE ONE TABLET BY MOUTH ONCE A DAY for 30 days Active metFORMIN HCl 850 mg TAKE ONE TABLET BY MOUTH two (2) times a day. TAKE WITH MEALS for 30 days Active Vitamin D3 50 MCG (2000 UT) TAKE 1 CAPSULE BY MOUTH ONCE DAILY for 30 days Active Atorvastatin Calcium 10 mg TAKE 1 TABLET BY MOUTH ONCE DAILY for 30 days Active Loratadine 10 mg TAKE 1 TABLET BY MOUTH ONCE DAILY for 30 Active Diclofenac Sodium 1 % APPLY TO THE AFFECTED AREA 3 (THREE) TIMES A DAY DIRECTED for 30 Active True Comfort Safety Lancets - USE TO TEST FINGER STICK BLOOD SUGAR 3 (THREE) TIMES A DAY for 30 Active FreeStyle Lite Test - USE TO TEST FINGER STICK BLOOD SUGAR 3 (THREE) TIMES A DAY for 30 Active Eliquis 5 mg TAKE ONE TABLET BY MOUTH two (2) times a day 30 for 30 Active Meclizine HCl 25 MG 1 tablet as needed Orally every 12 hrs for 10 days 05/31/2023 Active Znuesltg-Jztbaeamk-IR 1 % 4 drops into affected ear Otic Three times a day for 7 days 05/31/2023 Active True Comfort Pen [place] 32G X 4 MM USE TO INJECT insulin 5 TIMES A DAY for 25 Active Alcohol Pads 70 % USE TOPICALLY THREE TIMES DAILY DIRECTED for 30 Active Lantus SoloStar 100 UNIT/ML INJECT 90 UNITS UNDER THE SKIN ONCE A DAY DIRECTED for 30 Active Econazole Nitrate 1 % 1 application Externally twice a day for 30 days 11/05/2022 Active Lidocaine HCl Urethral/Mucosal 2 % APPLY SPARINGLY TO THE AFFECTED AREA ON RIGHT TO THE ARM AND CHEST 2 TO 3 TIMES A DAY IF ITCHY for 30 Active Ondansetron HCl 4 MG 1 tablet Orally twice a day for 7 days 11/05/2022 Active hydroCHLOROthiazide 25 mg TAKE 1 TABLET BY MOUTH EVERY MORNING for 30 Active Omeprazole 20 mg TAKE 1 CAPSULE BY MOUTH 30 MINUTES BEFORE morning meal for 30 Active Serevent Diskus 50 MCG/DOSE Inhale 1 Puff into the lungs 2 times daily for 30 days. for 30 Active Insulin Lispro (1 Unit Dial) 100 unit/mL INJECT 30 UNITS UNDER THE SKIN 3 (THREE) TIMES A DAY for 30 Active FreeStyle Lite - as directed to check blood sugars Dx: E11.9 in vitro three times daily for 30 days 02/24/2018 Active Myrbetriq 50 MG 1 tablet Orally twice a day for 30 Urologist Active Metoclopramide HCl 10 MG 1 tablet before meals Orally Twice a day for 30 days 11/01/2022 Active Cyproheptadine HCl 4 MG TAKE ONE TABLET BY MOUTH 3 (THREE) TIMES A DAY NEEDED FOR ITCH 30 30 for 30 Active Nebulizer/Tubing/Mouthpie ce - as directed for treatment of Dx: J45.30 inhalation every 4-6 hours prn for 30 days 06/26/2019 Active Flovent HFA 110 MCG/ACT 2 puffs Inhalati on 2 times a day,Instr:rinse mouth and throat after use for 30 Active Xopenex 1.25 MG/3ML 3 ml Inhalation three times daily for 15 Active EpiPen 2-Amadeo 0.3 MG/0.3ML as directed Injection once as needed for 30 days 10/02/2020 Active Albuterol Sulfate HFA 108 (90 Base) MCG/ACT 2 puffs as needed Inhalation every 6 hrs Active Azelastine HCl 0.1 % 1 puff in each nostril Nasally Twice a day Active Easy Touch Lancets 28G - as directed for 30 days Active Citalopram Hydrobromide 40 MG 2 tablet Orally Once a day for 30 day(s) Psy Active Mometasone Furoate 0.1 % Apply sparingly first before calcipotriene twice a day to affected areas on arms and chest as needed 30 30 for 30 Active LORazepam 1 MG 1 tablet at bedtime as needed Orally Once a day Active Baclofen 10 MG 1 tablet as needed Orally Twice a day Active OXcarbazepine 150 MG 1 tablet Orally Once a day Active Ozempic (0.25 or 0.5 MG/DOSE) 2 MG/3ML as directed Subcutaneous once a week Active Ventolin HFA 108 (90 Base) MCG/ACT 1 puff as needed Inhalation every 4 hrs Active clonazePAM 1 MG 2 tablets in the am and 2 tablets in pm Orally twice a day CHD Unknown Zofran 4 MG as directed Orally for 7 days 07/07/2018 Unknown Fluconazole 50 MG 1 tablet Orally Daily for 10 day(s) 06/16/2020 Unknown Admelog SoloStar 100 UNIT/ML 11 units Subcutaneous three times a day for 30 Unknown Fluticasone Propionate 50 MCG/ACT SPRAY TWICE INTO EACH NOSTRIL ONCE A DAY for 30 Unknown Trulicity 3 MG/0.5ML inject the content of 1 pen under the skin each week as directed Subcutaneous weekly for 30 days 02/23/2022 Not-Taking Azithromycin 250 MG 2 tablet day one 1 tab daily for 4 days Orally daily for 5 days 03/19/2022 Not-Taking metroNIDAZOLE 0.75 % _insert 1 APPLICATORFUL VAGINALLY ONCE A DAY AT BEDTIME FOR 10 DAYS for 10 Unknown Vital Signs Temperature 95.7 degrees Fahrenheit 05/23/19 25 Oximetry 97 % 05/23/2024 Heart Rate 84 /min 05/23/2024 Blood pressure systolic 120 mm Hg 05/23/19 25 Blood pressure diastolic 72 mm Hg 025 Weight 220.8 lbs 05/23/2024 BMI 40.07 kg/m2 05/23/2024 Height 62.24 in 05/23/2024 Encounters Encounter Location Date Provider Diagnosis [facility] [address] [id number] 05/23/2024 ELLA MICHAEL Diabetes mellitus du e to underlying condition with diabetic neuropathy, unspecified E08.40 ; Essential (primary) hypertension I10 ; Obstructive sleep apnea (adult) (pediatric) G47.33 ; Anxiety disorder, unspecified F41.9 ; Mild persistent asthma, uncomplicated J45.30 ; Chronic embolism and thrombosis of unspecified deep veins of unspecified lower extremity I82.509 and Chronic kidney disease, stage 3 unspecified N18.30 Assessments Encounter Date Diagnosis (ICD Code) Assessment Notes Treatment Notes Treatment Clinical Notes Section Notes 05/23/2024 Diabetes mellitus due to underlying condition with diabetic neuropathy, unspecified (ICD-10 - E08.40) Maribell is 63 years old lady with DM type II, hypertension, hyperlipidemia, morbid persistent asthma, generalized anxiety disorder/depressio n, chronic kidney disease stage IIIa, trigeminal neuralgia, obstructive sleep apnea, chronic pain syndrome is here for follow-up. Plan is as follows Diabetes mellitus type 2 with diabetic neuropathy. She follows up with [facility] endocrinology and according to patient her last A1c was within normal range. She is seen power barker in the past. She follows up with [facility] try out worker and kidney function is stable. Foot care discussed with the patient. Hypertension/hyper lipidemia. Blood pressure well controlled and last lipid panel was within reasonable limits Obstructive sleep apnea. Continue on CPAP machine and no daytime sleepiness. Moderate persistent asthma. She stable when she follows up with bacon stringer Anxiety/depression . Stable on current regimen. Considering her neuropathy she may be a good candidate for duloxetine which can be added to her regimen and she will check with her psychiatrist. Chronic kidney disease. She is stable and she follows up with [facility] try out worker to avoid NSAIDs. Right lower extremity swelling. It is nonpitting edema most likely lymphedema. She is on Eliquis and less likely to be a DVT but considering her history we will do ultrasound right lower extremity in the next few days. 05/23/2024 Essential (primary) hypertension (ICD-10 - I10) Maribell is 63 years old lady with DM type II, hypertension, hyperlipidemia, morbid persistent asthma, generalized anxiety disorder/depressio n, chronic kidney disease stage IIIa, trigeminal neuralgia, obstructive sleep apnea, chronic pain syndrome is here for follow-up. Plan is as follows Diabetes mellitus type 2 with diabetic neuropathy. She follows up with [facility] endocrinology and according to patient her last A1c was within normal range. She is seen power barker in the past. She follows up with [facility] try out worker and kidney function is stable. Foot care discussed with the patient. Hypertension/hyper lipidemia. Blood pressure well controlled and last lipid panel was within reasonable limits Obstructive sleep apnea. Continue on CPAP machine and no daytime sleepiness. Moderate persistent asthma. She stable when she follows up with bacon stringer Anxiety/depression . Stable on current regimen. Considering her neuropathy she may be a good candidate for duloxetine which can be added to her regimen and she will check with her psychiatrist. Chronic kidney disease. She is stable and she follows up with [facility] try out worker to avoid NSAIDs. Right lower extremity swelling. It is nonpitting edema most likely lymphedema. She is on Eliquis and less likely to be a DVT but considering her history we will do ultrasound right lower extremity in the next few days. 05/23/2024 Obstructive sleep apnea (adult) (pediatric) (ICD-10 - G47.33) Maribell is 63 years old lady with DM type II, hypertension, hyperlipidemia, morbid persistent asthma, generalized anxiety disorder/depressio n, chronic kidney disease stage IIIa, trigeminal neuralgia, obstructive sleep apnea, chronic pain syndrome is here for follow-up. Plan is as follows Diabetes mellitus type 2 with diabetic neuropathy. She follows up with [facility] endocrinology and according to patient her last A1c was within normal range. She is seen power barker in the past. She follows up with [facility] try out worker and kidney function is stable. Foot care discussed with the patient. Hypertension/hyper lipidemia. Blood pressure well controlled and last lipid panel was within reasonable limits Obstructive sleep apnea. Continue on CPAP machine and no daytime sleepiness. Moderate persistent asthma. She stable when she follows up with bacon stringer Anxiety/depression . Stable on current regimen. Considering her neuropathy she may be a good candidate for duloxetine which can be added to her regimen and she will check with her psychiatrist. Chronic kidney disease. She is stable and she follows up with [facility] try out worker to avoid NSAIDs. Right lower extremity swelling. It is nonpitting edema most likely lymphedema. She is on Eliquis and less likely to be a DVT but considering her history we will do ultrasound right lower extremity in the next few days. 05/23/2024 Anxiety disorder, unspecified (ICD-10 - F41.9) Maribell is 63 years old lady with DM type II, hypertension, hyperlipidemia, morbid persistent asthma, generalized anxiety disorder/depressio n, chronic kidney disease stage IIIa, trigeminal neuralgia, obstructive sleep apnea, chronic pain syndrome is here for follow-up. Plan is as follows Diabetes mellitus type 2 with diabetic neuropathy. She follows up with [facility] endocrinology and according to patient her last A1c was within normal range. She is seen power barker in the past. She follows up with [facility] try out worker and kidney function is stable. Foot care discussed with the patient. Hypertension/hyper lipidemia. Blood pressure well controlled and last lipid panel was within reasonable limits Obstructive sleep apnea. Continue on CPAP machine and no daytime sleepiness. Moderate persistent asthma. She stable when she follows up with bacon stringer Anxiety/depression . Stable on current regimen. Considering her neuropathy she may be a good candidate for duloxetine which can be added to her regimen and she will check with her psychiatrist. Chronic kidney disease. She is stable and she follows up with [facility] try out worker to avoid NSAIDs. Right lower extremity swelling. It is nonpitting edema most likely lymphedema. She is on Eliquis and less likely to be a DVT but considering her history we will do ultrasound right lower extremity in the next few days. 05/23/2024 Mild persistent asthma, uncomplicated (ICD-10 - J45.30) Maribell is 63 years old lady with DM type II, hypertension, hyperlipidemia, morbid persistent asthma, generalized anxiety disorder/depressio n, chronic kidney disease stage IIIa, trigeminal neuralgia, obstructive sleep apnea, chronic pain syndrome is here for follow-up. Plan is as follows Diabetes mellitus type 2 with diabetic neuropathy. She follows up with [facility] endocrinology and according to patient her last A1c was within normal range. She is seen power barker in the past. She follows up with [facility] try out worker and kidney function is stable. Foot care discussed with the patient. Hypertension/hyper lipidemia. Blood pressure well controlled and last lipid panel was within reasonable limits Obstructive sleep apnea. Continue on CPAP machine and no daytime sleepiness. Moderate persistent asthma. She stable when she follows up with bacon stringer Anxiety/depression . Stable on current regimen. Considering her neuropathy she may be a good candidate for duloxetine which can be added to her regimen and she will check with her psychiatrist. Chronic kidney disease. She is stable and she follows up with [facility] die try out worker to avoid NSAIDs. Right lower extremity swelling. It is nonpitting edema most likely lymphedema. She is on Eliquis and less likely to be a DVT but considering her history we will do ultrasound right lower extremity in the next few days. 05/23/2024 Chronic embolism and thrombosis of unspecified deep veins of unspecified lower extremity (ICD-10 - I82.509) Maribell is 63 years old lady with DM type II, hypertension, hyperlipidemia, morbid persistent asthma, generalized anxiety disorder/depressio n, chronic kidney disease stage IIIa, trigeminal neuralgia, obstructive sleep apnea, chronic pain syndrome is here for follow-up. Plan is as follows Diabetes mellitus type 2 with diabetic neuropathy. She follows up with [facility] endocrinology and according to patient her last A1c was within normal range. She is seen power barker in the past. She follows up with stamp[facility] die try out worker and kidney function is stable. Foot care discussed with the patient. Hypertension/hyper lipidemia. Blood pressure well controlled and last lipid panel was within reasonable limits Obstructive sleep apnea. Continue on CPAP machine and no daytime sleepiness. Moderate persistent asthma. She stable when she follows up with bacon stringer Anxiety/depression . Stable on current regimen. Considering her neuropathy she may be a good candidate for duloxetine which can be added to her regimen and she will check with her psychiatrist. Chronic kidney disease. She is stable and she follows up with [facility] try out worker to avoid NSAIDs. Right lower extremity swelling. It is nonpitting edema most likely lymphedema. She is on Eliquis and less likely to be a DVT but considering her history we will do ultrasound right lower extremity in the next few days. 05/23/2024 Chronic kidney disease, stage 3 unspecified (ICD-10 - N18.30) Maribell is 63 years old lady with DM type II, hypertension, hyperlipidemia, morbid persistent asthma, generalized anxiety disorder/depressio n, chronic kidney disease stage IIIa, trigeminal neuralgia, obstructive sleep apnea, chronic pain syndrome is here for follow-up. Plan is as follows Diabetes mellitus type 2 with diabetic neuropathy. She follows up with [facility] endocrinology and according to patient her last A1c was within normal range. She is seen power barker in the past. She follows up with stamp[facility] die try out worker and kidney function is stable. Foot care discussed with the patient. Hypertension/hyper lipidemia. Blood pressure well controlled and last lipid panel was within reasonable limits Obstructive sleep apnea. Continue on CPAP machine and no daytime sleepiness. Moderate persistent asthma. She stable when she follows up with bacon stringer Anxiety/depression . Stable on current regimen. Considering her neuropathy she may be a good candidate for duloxetine which can be added to her regimen and she will check with her psychiatrist. Chronic kidney disease. She is stable and she follows up with stamp[facility] die try out worker to avoid NSAIDs. Right lower extremity swelling. It is nonpitting edema most likely lymphedema. She is on Eliquis and less likely to be a DVT but considering her history we will do ultrasound right lower extremity in the next few days. Plan Of Treatment Next Appt Details Follow Up: 6 Months, Reason: Provider Name:ELLA MICHAEL , 11/26/2024 10:00:00 AM, [address] [place] [address], [id number], Progress Notes * MARIBELL TAYLOR HDOB: [birth year] (63 yo F)Acc No.[id number]:05/23/2024 Progress Notes Patient:?MARIBELL TAYLOR Provider:?ELLA MICHAEL MD :1960???Age:63 Y???Sex:Female D ate:05/23/2024 Address:[address] [place], [place] [id number] Subjective: * Chief Complaints: * ???3 month f/u * HPI: ???Internal Medicine:?Maribell is a 63-year-old lady with DM2, hypertension, hyperlipidemia, asthma, insomnia and anxiety here for follow-up. She was seen recently for swelling of the right leg and she still waiting for ultrasound right lower extremity to rule out DVT.? They may be question of lymphedema which is causing swelling and she is also on Eliquis which puts her at a lower risk for DVT.? She follows up with endocrinology at [facility] and according to the patient and her A1c is within reasonable limits.? She also follows up with psychiatrist and her anxiety and depression are under control.? She is not exercising much.? She was on pain pills in the past and her urine toxicology was negative for oxycodone and she was tapered off.? She still complained of neuropathic pain.? She has obstructive sleep apnea and she uses CPAP machine.? She does not complain of any or GI issues.? No other complaints today. * ROS:?General/Constitutional:?Overall health?Good.?Change in appetite?denies.?Chills?denies.?Fever?denies.?Lightheadedness?denies.?Night sweats?denies.?Sleep disturbance?denies.?Weight gain?denies.?Weight loss?denies.?Neurologic:?Difficulty speaking?denies.?Dizziness?denies.?Gait abnormality?denies.?Headache?denies.?Loss of strength?denies.?Memory loss?denies.?Seizures?denies.?Tingling/Numbness?denies .?Ophthalmologic:?Blurred vision?denies.?Discharge?denies.?Dry eye?denies.?Red eye?denies.?ENT:?Change in Voice?Denies.?Cold Symptoms?Denies.?Cough?Admits Dry cough..?Dizziness?Denies.?Nasal Congestion?Denies.?Otalgia?Denies.?postnasal drip?, Denies.?Blocked ear?denies.?Nosebleed?denies.?Pain?denies.?Snoring?denies.?Cardiovascular:?Diaphoresis?Denies.?Pedal Edema?Denies.?PND (Paroxsymal nocturnal dyspnea)?Denies.?Chest pain?denies.?Difficulty laying flat?denies.?Dyspnea on exertion?denies.?Heart murmur?denies.?Orthopnea?denies.?Respiratory:?Snoring?denies.?Asthma?, denies.?Breathing problems?denies.?Cough?, denies.?Shortness of breath with exertion?denies.?Sputum production?denies.?Wheezing?denies.?Gastrointestinal:?Change in bowel habits?denies.?Constipation?denies.?Decreased appetite?denies.?Diarrhea?denies.?Nausea?denies.?Vomiting?denies.?Musculoskeletal:?tingling/numbness?Denies.?myalgias?Denies.?Joint Swelling?Denies.?extremeties?normal.?Arthritis?denies.?Back problems?denies.?Carpal tunnel?denies.?Joint stiffness?denies.?Muscle aches?admits in the right leg.?Painful joints?denies.?Endocrine:?Bowel Changes?Denies.?Breast Discharge?Denies.?poor libido?Denies.?Cold intolerance?denies.?Excessive sweating?denies.?Excessive thirst?denies.?Frequent urination?, denies.?Thyroid problems?denies.?Skin:?Bruising?Denies.?Eczema?denies.?Hair changes?denies.?Rash?denies.?Skin lesion(s)?denies.?Psychiatric:?Anxiety?denies.?Depressed mood?denies.?Difficulty sleeping?denies.?Nervous breakdown?denies.?Substance abuse?denies.?Urology:?abnormal menstrual bleeding?denies.?blood in urine?denies.?burning on urination?denies.?difficulty urinating?denies.?discharge?denies.?dysuria?denies.? * Medical History:? * Surgical History:?rotator cu ff tear repair September 2017 wrist surgery below the knee amputation 2006 left side for Blood clots 2/2 to OCP and pt was smoking rt toes amputation 2004 right wrist synovial cyst resection, Dr. Henriquez ight carpal tunnel decompression, Dr. Henriquez 2021 * Hospitalization/Major Diagno stic Procedure:? * Family History:?Father: dece ased, esophagus cancer.?Mother: alive, alzheimer's dementia, diagnosed with Hypertension.? * Social History:?Miscellaneous:?Exercise: none. ?Marital status: . ?Occupation: Unemployed. * Medications:?TakingBaclofen 10 MG Tablet 1 tablet as needed Orally Twice a day OXcarbazepine 150 MG Tablet 1 tablet Orally Once a day Ozempic (0.25 or 0.5 MG/DOSE) 2 MG/3ML [...] ONCE A DAY DIRECTED True Comfort Pen [place] 32G X 4 MM Miscellaneous USE TO INJECT insulin 5 TIMES A DAY Alcohol Pads 70 % Pad USE TOPICALLY THREE TIMES DAILY DIRECTED Meclizine HCl 25 MG Tablet 1 tablet as needed Orally every 12 hrs Kcdsqoif-Sayrhsuda-WL 1 % Solution 4 drops into affected ear Otic Three times a day Diclofenac Sodium 1 % Gel APPLY TO THE AFFECTED AREA 3 (THREE) TIMES A DAY DIRECTED True Comfort Safety Lancets - Miscellaneous USE TO TEST FINGER STICK BLOOD SUGAR 3 (THREE) TIMES A DAY Loratadine 10 mg Tablet TAKE 1 TABLET BY MOUTH ONCE DAILY FreeStyle Lite Test - Strip USE TO TEST FINGER STICK BLOOD SUGAR 3 (THREE) TIMES A DAY Eliquis 5 mg Tablet TAKE ONE TABLET BY MOUTH two (2) times a day 30 Vitamin D3 50 MCG (2000 UT) Capsule [...] 1 TABLET BY MOUTH ONCE A DAY Omeprazole 40 MG Capsule Delayed Release 1 capsule 1/2 to 1 hour before morning meal Orally Once a day hydrOXYzine HCl 25 MG Tablet 1 tablet Orally Once a day Lidocaine 5 % Patch 1 patch remove after 12 hours Externally Once a day Taking Baclofen 10 MG Tablet 1 tablet as needed Orally Twice a day Taking OXcarbazepine 150 MG Tablet 1 tablet Orally Once a day Taking Ozempic (0.25 or 0.5 MG/DOSE) 2 [...] as directed Injection once as needed Taking VibeDeck Lite - Device as directed to check [...] A DAY DIRECTED Taking True Comfort [place] 32G X 4 MM Miscellaneous USE TO INJECT insulin 5 TIMES A DAY Taking Alcohol Pads 70 % Pad USE TOPICALLY THREE TIMES DAILY DIRECTED Taking Meclizine HCl 25 MG Tablet 1 tablet as needed Orally every 12 hrs Taking Jtsmkkqu-Iyvdtpzgj-PQ 1 % Solution 4 drops into affected ear Otic Three times a day Taking Diclofenac Sodium 1 % Gel APPLY TO THE AFFECTED AREA 3 (THREE) TIMES A DAY DIRECTED Taking True Comfort Safety Lancets - Miscellaneous USE TO TEST FINGER STICK BLOOD SUGAR 3 (THREE) TIMES A DAY Taking Loratadine 10 mg Tablet TAKE 1 [...] TABLET BY MOUTH ONCE A DAY Taking Omeprazole 40 MG Capsule Delayed Release 1 capsule 1/2 to 1 hour before morning meal Orally Once a day Taking hydrOXYzine HCl 25 MG Tablet 1 tablet Orally Once a day Taking Lidocaine 5 % Patch 1 patch remove after 12 hours Externally Once a day Not-TakingTemazepam 30 MG Capsule 1 capsule at bedtime as needed Orally Once a day ProAir HFA 108 (90 Base) MCG/ACT Aerosol Solution 2 puffs Inhalation Every 4 hours,PRN:for wheezing Carafate 1 GM/10ML Suspension 10 ml on an empty stomach Orally Twice a day Ofloxacin 0.3 % Solution 10 drops into affected ear Otic Once a day Iramkebt-Unscexuva-AX 1 % Solution 4 drops into affected [...] affected ear Otic Once a day Not-Taking Cqdmoxme-Rahaotvye-AW 1 % Solution 4 drops into affected [...] - Side EffectsSolifenacinLyricaFluocinolone: Unknownno[Allergies Verified] Objective: * Vitals:?Temp:95.7F, Oxygen s at %:97%, HR:84/min, BP:120/72mm Hg, Wt:220.8lbs, BMI:40.07Index, Ht: 62.24 in. * ???Past Orders: Lab:Hemoglobin P1c-[id number] * Collection Date 02/18/2024 11/14/2023 Collection Time 09:35 AM 08:56 AM Order Date 02/16/2024 11/14/2023 Hemoglobin A1c/ Hemoglobin total 6.1? H (Ref Range: 4.8-5.6 %) 6.6?H (Ref Range: 4.8-5.6 %) * Examination: ???General Examination: ?Psychiatry?Normal.?GENERAL APPEARANCE:?Well developed, well nourished, in no acute distress.?MUSCULOSKELETAL:?left prosthetic leg.? Right leg pain on palpation in the calf and Homans sign is weak positive.?HEAD:?Normocephalic, atraumatic.?EYES:?Pupils equal, round, reactive to light and accommodation, sclera non-icteric.?EARS:?normal, .?ORAL CAVITY:?Normal.?THROAT:?Clear.?OROPHARYNX?Normal.?SINUSES?Normal.?NECK/THYROID:?Neck supple, full range of motion, no cervical lymphadenopathy.?SKIN:?Warm and dry, no suspicious lesions.?HEART:?Normal.?LUNGS:?clear to auscultation bilaterally, , no wheezes, rales, rhonchi.?BREASTS:?__.?ABDOMEN:?bowel sounds present, no rebound tenderness,?.?EXTREMITIES:?Normal.?PERIPHERAL PULSES:?Normal.?NEUROLOGIC:??appropriate strength bilateral upper extremities and in the right lower extremity.? Status post amputation left leg below knee joint.?FEMALE GENITOURINARY:?__.?MALE GENITOURINARY:?__.?Turf Farmer? .? Assessment: * Assessment: 1.?Diabetes mellitus due to underlying condition with diabetic neuropathy, unspecified - E08.40 (Primary)???2.?Essential (primary) hypertension - I10???3.?Obstructive sleep apnea (adult) (pediatric) - G47.33???4.?Anxiety disorder, unspecified - F41.9???5.?Mild persistent asthma, uncomplicated - J45.30???6.?Chronic embolism and thrombosis of unspecified deep veins of unspecified lower extremity - I82.509???7.?Chronic kidney disease, stage 3 unspecified - N18.30??? Maribell is 63 years old lady with DM type II, hypertension, hyperlipidemia, morbid persistent asthma, generalized anxiety disorder/depression, chronic kidney disease stage IIIa, trigeminal neuralgia, obstructive sleep apnea, chronic pain syndrome is here for follow-up.? Plan is as follows Diabetes mellitus type 2 with diabetic neuropathy.? She follows up with [facility] endocrinology and according to patient her last A1c was within normal range.? She is seen power barker in the past.? She follows up with stamping die try out worker and kidney function is stable.? Foot care discussed with the patient. Hypertension/hyperlipidemia.? Blood pressure well controlled and last lipid panel was within reasonable limits Obstructive sleep apnea.? Continue on CPAP machine and no daytime sleepiness. Moderate persistent asthma.? She stable when she follows up with bacon stringer Anxiety/depression.? Stable on current regimen.? Considering her neuropathy she may be a good candidate for duloxetine which can be added to her regimen and she will check with her psychiatrist. Chronic kidney disease.? She is stable and she follows up with stamping die try out worker to avoid NSAIDs. Right lower extremity swelling.? It is nonpitting edema most likely lymphedema.? She is on Eliquis and less likely to be a DVT but considering her history we will do ultrasound right lower extremity in the next few days. Plan: * Treatment: * Procedure Codes:?3078F DIAST BP < 80 MM [id number] SYST BP LT 130 MM HG * Follow Up:?6 Months * * Sign off status: Completed true * Provider:?ELLA MICHAEL MD Date:?05/23 Generated for Hood sanchez/Nataliia/Josefransmitting on:?06/04/2024 04:33 PM EST History and Physical Notes * HPI (History of Present Illness) Category Sub-Category Detail Notes Category Not es Internal Medicine Maribell is a 63-year-old lady with DM2, hypertension, hyperlipidemia, asthma, insomnia and anxiety here for follow-up. She was seen recently for swelling of the right leg and she still waiting for ultrasound right lower extremity to rule out DVT. They may be question of lymphedema which is causing swelling and she is also on Eliquis which puts her at a lower risk for DVT. She follows up with endocrinology at [facility] and according to the patient and her A1c is within reasonable limits. She also follows up with psychiatrist and her anxiety and depression are under control. She is not exercising much. She was on pain pills in the past and her urine toxicology was negative for oxycodone and she was tapered off. She still complained of neuropathic pain. She has obstructive sleep apnea and she uses CPAP machine. She does not complain of any or GI issues. No other complaints today. Examination Category Sub-Category Detail Notes Category Not [...] bowel sounds present , no rebound tenderness, NEUROLOGIC: appropriate strength bilateral upper extremities and in the right lower extremity. Status post amputation left leg below knee joint SKIN: Warm and dry, no randy picious lesions EXTREMITIES: Normal PERIPHERAL PULSES: Normal BREASTS: __ MUSCULOSKELETAL: left prosthetic leg. Right leg pain on palpation in the calf and Homans sign is weak positive MALE GENITOURINARY: __ FEMALE GENITOURINARY: __ ORAL CAVITY: Normal Psychiatry Normal OROPHARYNX Normal SINUSES Normal Turf Farmer
--- OUTSIDE RECORDS SUMMARY | 2024-06-04 16:33 | XMS_ITS | Data Portability ---
Author Organization [place] - [facility], Allergy Address [address] [address] Care Team Providers Care Vice President Business Development Name Role Phone ELLA MICHAEL Primary Care Provider Assessment No assessment recorded. Plan of Treatment Reminders Order Date Submit Date Provider Last Modified By Organization Details Last Modified Time Details Appointments [facility] 15 2024 10:15A M DURAN NELSON MD Not available Not available Not available Lab None recorded . Referral None recorded . Procedures None recorded . Surgeries None recorded . Imaging MRI, brain, w/wo contrast - prefers [facility] eld 2023 024 [email or web address] [facility] ([facility]), [address] [place], [address], 01/03/2024 14:20:34 Medication Orders clotrima zole-bet amethaso ne 1 %-0.05 % topical cream 2023 024 [facility] - [place], [place] - [id number], [address] [place], [address], 02/29/2024 15:08:30 Patient TargetsNo targets recorded. Patient InstructionsNo instructions recorded. Reason for Referral None Reported. Results Created Date Observation Date Name Description Value Unit Range Abnormal Flag Note LastModifiedBy Organization Detail LastModifiedTime 12/13/19 24 12/12/2023 MRI, brain + brain stem, w/wo contr ast [facility] Access ion Number : [id number] Jhoana lange Name: Maribell Sweeneya l Record Number : [id number] Date of : 1960 Date of Exam: 2023 Referr ing Physic kellen: Duran Estes [facility] [place] [address] [facility] [place] [address] Exam: MR Brain (C-/C+ ) CPT 72247 Room Descri ption: [facility] Verio 3.0T MR Brain (C-/C+ ) CPT 61273 INDICA TION / [facility] ON: [...] onical ly Signed By: Abdulaziz Parmar MD [facility] ([facility]) [address] [facility] [place], [address], 12/31/2023 04:57:08 12/28/19 24 07/18/2023 imagi ng/di [...] Details Recorded Time Otalgia of left ear 1856976204 Active 2020 Otalgia, left ear; Note: Date Diagnosed : 04/08/2021 3:18 PM (H92.02) Not Available [facility] 4 02:15:47 Diffuse otitis externa 15493753 Active 2020 Diffuse otitis externa, left ear; Note: Date Diagnosed : 07/17/2020 5:26 PM (H60.312) Note: Date Diagnosed : 07/17/2020 5:26 PM (H60.312) Not Available [facility] 4 00:49:08 Pain of left temporoma ndibular joint 04371625231 742430 Active 2020 Arthralgi a of left temporoma ndibular joint; Note: Date Diagnosed : 04/08/2021 3:18 PM (M26.622) Not Available [facility] 4 02:15:35 Tinnitus of left ear 35827933448 06 Active 2020 Tinnitus, left ear; Note: Date Diagnosed : 04/08/2021 3:18 PM (H93.12) Not Available [facility] 4 02:13:36 Disorder of nasal sinus 4839620 Active 2019 Unspecifi ed disorder of nose and nasal sinuses; Note: Date Diagnosed : 12/11/2019 7:07 PM (J34.9) Not Available [facility] 4 02:14:50 Disorder of the nose 35937940 Active 2019 Unspecifi ed disorder of nose and nasal sinuses; Note: Date Diagnosed : 12/11/2019 7:07 PM (J34.9) Not Available [facility] 4 02:14:50 Dysphagia 74276543 Active 2017 Dysphagia , unspecifi ed; Note: Date Diagnosed : 10/26/2017 3:35 PM (R13.10) Not Available [facility] 4 02:15:17 Acute maxillary sinusitis 71511456 Active 2019 Acute maxillary sinusitis , unspecifi ed; Note: Date Diagnosed : 12/11/2019 7:07 PM (J01.00) Not Available [facility] 4 02:13:26 Itching of skin 765300845 Active 2019 Pruritus, unspecifi ed; Note: Date Diagnosed : 12/17/2019 9:41 AM (L29.9) Not Available [facility] 4 02:15:04 Gastroeso phageal reflux disease without esophagit is 838831481 Active 2017 Gastro-es ophageal reflux disease without esophagit is; Note: Date Diagnosed : 10/26/2017 3:36 PM (K21.9) Not Available [facility] 4 02:13:57 Sensorine ural hearing loss 31501306 Active 2020 Sensorine ural hearing loss, unilatera l, left ear, with unrestric trisha hearing on the contralat eral side; Note: Date Diagnosed : 08/04/2020 11:03 AM (H90.42) Not Available [facility] 4 02:14:29 Trigemina l neuralgia 41808343 Active 2023 DURAN NELSON MD [address] [place] [address], [place], [address] , [facility] - [facility] 4 18:40:58 Localized masticato ry muscle soreness 191903417 Active 2023 Myalgia of masticati on muscle; Note: Date Diagnosed : 07/26/2023 2:53 PM (M79.11) Not Available [facility] 4 02:15:11 Type 2 diabetes mellitus without complicat ion 875650142 Active 2023 Type 2 diabetes mellitus without complicat ions; Note: Date Diagnosed : 06/13/2023 1:31 PM (E11.9) Not Available [facility] 4 02:15:17 Problem Notes None recorded. Procedures Surgical History None recorded. Imaging Results Imaging Date Name Status LastModified by Organiz ation Details LastModified Time 12/12/2023 MRI, brain + brain stem, w/wo contrast completed [facility] ([facility]) [address], [place], [address], 12/31/2023 04:57:08 07/18/2023 imaging/diagn ostic result completed [...] Name and Address Organization Details Recorded Time 70461 aspirin medicatio n other Not available Not available 09/20/2023 1191 RxNorm React ion: unkno wn, unspe cifie d;; Not Available [facility] 4 00:49:02 60829 acetamino phen / oxycodone medicatio n other Not available Not available 09/20/2023 64201 3 RxNorm React ion: unkno wn, unspe cifie d;; Not Available [facility] 4 00:49:48 42985 naproxen medicatio n other Not available Not available 09/20/2023 7258 RxNorm React ion: unkno wn, unspe cifie d;; Not Available [facility] 4 00:49:48 Medications Name Sig Start [...] a day 2023 active Medicati on ID: 750946 D uration Value: 10 Brand Name: ciproflo [...] mg tablet 2017 active Medicati on ID: 165010 D uration Value: 30 Brand Name: cyprohep [...] topical solution 01/11 completed Medicati on ID: 303026 D uration Value: 14 Prescri bed By [...] small amount 2020 active Medicati on ID: 128016 D uration Value: 7 Prescri bed By [...] drops,randy pension 01/11 completed Medicati on ID: 853292 Aquilino newberry By Name: AZUCENA Andrade nd [...] 5 drop 2020 active Medicati on ID: 631380 D uration Value: 30 Prescri bed By [...] by mouth 10/19 completed Medicati on ID: 655066 D uration Value: 30 Prescri bed By Name: Paula KrugerVINAY nd Name: omeprazo le Send Method: E-Prescr ibed Sub s Allowed: subs [place] Speci al Instruct ion: Take 1 tablet by mouth every day before a meal Med icationG enericNa me: omeprazo le Medic ation ID: [id number] D uration Value: 30 Prescri bed By [...] Available No t Available Comfort EZ Pen Peerless 32 gauge x 5/32 USE TO INJECT insulin 5 TIMES A DAY active Not Available Not Available No t Available Jardiance 10 mg tablet TAKE 1 TABLET BY MOUTH EVERY MORNING active Not Available Not Available No t Available Flonase Allergy Relief 50 mcg/actua tion nasal spray,randy pension 2 puff into both nostrils 2019 active Medicati on ID: 945065 D uration Value: 30 Prescri bed By [...] Available No t Available FreeStyle Antonio 2 Brooks USE DIRECTED active Not Available Not Available [...] Updated DateTime 12/27/2023 157.48 cm 35.5 kg/m2 07903.[address] [facility] 12/27/2023 13:07:29 Date Recorded Body height Body mass index (BMI) Body weight Provider Name and Address Organization Details Last Updated DateTime 01/12/2024 157.48 cm 35.5 kg/m2 [address]242.[address] [facility] 01/12/2024 13:05:16 Date Recorded Body height Body mass index (BMI) Body weight Provider Name and Address Organization Details Last Updated DateTime 10/20/2023 157.48 cm 38.2 kg/m2 [address]1224.[address] [facility] 10/20/2023 13:21:31 Social History None recorded. [...] Note [id number] DURAN NELSON MD [facility] [address] [place] [address] 10/20/2023 13:04:44 10/20/2023 14:59:17 Otalgia of left ear 3128101069 H92.02 63 yo F presents for follow up of her left ear. She is here for scheduled cerumen removal, but she is concerned about persistent pain. She was seen in [place] at the end of January and had [...] her midface. [facility]. Trigeminal neuralgia 316 84408 G50.0 [id number] DURAN NELSON MD [facility] [address] [place] [address] 12/27/2023 13:00:52 12/27/2023 13:42:13 Diffuse otitis externa 80607070 H60.312 Otalgia of left ear 1010 744493 H92.02 63 yo F presents for follow up of her left ear. She is here for scheduled cerumen removal, but she is concerned about persistent pain. She was seen in [place] at the end of January and had [...] Lotrisone into the canal. Follow-up 2 weeks. [id number] DURAN NELSON MD [facility] [address] [facility] [place] [address] 01/12/2024 12:56:02 01/12/2024 14:21:07 Otalgia of left ear 6067779505 H92.02 63 yo F presents for follow [...] Yost Member ID Guarantor Name 10/20/2023 1 [facility] [id number] Maribell H Colon [id number] 1 Maribell H Colon 12/27/2023 1 [facility] [id number] Maribell H Colon [id number] 1 Maribell H Colon 01/12/2024 1 [facility] [id number] Maribell H Colon [id number] 1 Maribell H Colon Notes Date Note Type Note Provider Name and Address Organization Details Recorded Time 10/20/2023 text/html 63 yo F presents for follow up of her left ear. She is here for scheduled cerumen removal, but she is concerned about persistent pain. She was seen in [place] at the end of January and had [...] a CT scan of the neck at [place] which did not show any sign of [...] mouth to to tightness DURAN NELSON MD [address] [place] [address], [address], [facility] - [facility] 10/30/2023 18:46:54 12/27/2023 text/html 63-year-old luis carlos bull presents today for follow-up and reassessment of her ear. PV:63 yo F presents for follow up of her left ear. She is here for scheduled cerumen removal, but she is concerned about persistent pain. She was seen in [place] at the end of January and had [...] a CT scan of the neck at [place] which did not show any sign of [...] to to tightness DURAN NELSON MD [address] [facility],[address], [address], [facility] - [facility] 01/03/2024 08:17:01 01/12/2024 text/html 63 yo F presents for follow up after lotrisone injection on the left. She does feel improvement in left otalgia. \ She was seen in [place] at the end of January and had [...] on the left. DURAN NELSON MD [address] [facility],[place] [address], [place], [address], [place] - [facility] 01/18/2024 06:10:12 OBGyn Episode No OBEpisode recorded.
--- OUTSIDE RECORDS SUMMARY | 2024-06-04 16:33 | XMS_ITS | Encounter Summary ---
Author Organization [facility] Address [address] [place] [address] Care Team Providers Care Grill Associate Name Role Phone Samuel Hilario MD Primary Care Provider [phone] Reason for Visit * Reason Onset Date Comments medication 05/14/2024 Encounter Details Date Type Department Care Team ([facility] [address] Contact Info) Description 05/14/2024 Telephone Orthopedic Surgery - [place] [address] [phone] Nolberto Cruz, DPM [address] [address] medication Social History Tobacco Use Types Packs/Day [...] skin [facility]/ Please advise. She can be reached @ [phone] Thanks. documented in this encounter Plan of Treatment Upcoming Encounters Date Type Department Care Team (Late Contact Info) Description 06/21/2024 3:15 PM EST Office Visit Orthopedic Surgery - [place] [address] [phone] Nolberto Cruz, DPM [address] [address] 08/07/2024 2:30 PM EDT Office Visit Obstetrics & Gynecology - [address] [phone] Betty Matt, [facility] [address] [place] [address] documented as of this encounter Visit Diagnoses Not on filedocumented in this encounter Care Teams Grill Associate Relationship Specialty Start Date End Date Samuel Hilario MD [address] [place] [place] [address] PCP - General Internal Medicine 03/19/20 documented as of this encounter
--- OUTSIDE RECORDS SUMMARY | 2024-06-04 16:33 | XMS_ITS ---
Author Organization [facility] Address [address] [place] [address] Care Team Providers Care Swift Tender Name Role Phone ELLA MICHAEL Primary Care [...] Drug Allergy Act kathleen REASON FOR VISIT Right leg is swollen Medications Medication SIG (Take, Route, Frequency, Duration) Notes Start Date End Date Status Ondansetron HCl 4 MG 1 tablet Orally twice a day for 7 days 11/05/2022 Active Econazole Nitrate 1 % 1 application Externally twice a day for 30 days 11/05/2022 Active Insulin Lispro (1 Unit Dial) 100 unit/mL INJECT 30 UNITS UNDER THE SKIN 3 (THREE) TIMES A DAY for 30 Active Metoclopramide HCl 10 MG 1 tablet before meals Orally Twice a day for 30 days 11/01/2022 Active Lidocaine HCl Urethral/Mucosal 2 % APPLY SPARINGLY TO THE AFFECTED AREA ON RIGHT TO THE ARM AND CHEST 2 TO 3 TIMES A DAY IF ITCHY for 30 Active Myrbetriq 50 MG 1 tablet Orally twice a day for 30 Urologist Active Serevent Diskus 50 MCG/DOSE Inhale 1 Puff into the lungs 2 times daily for 30 days. for 30 Active FreeStyle Lite - as directed to check blood sugars Dx: E11.9 in vitro three times daily for 30 days 02/24/2018 Active Xopenex 1.25 MG/3ML 3 ml Inhalation three times daily for 15 Active EpiPen 2-Amadeo 0.3 MG/0.3ML as directed Injection once as needed for 30 days 10/02/2020 Active Mometasone Furoate 0.1 % Apply sparingly first before calcipotriene twice a day to affected areas on arms and chest as needed 30 30 for 30 Active Cyproheptadine HCl 4 MG TAKE ONE TABLET BY MOUTH 3 (THREE) TIMES A DAY NEEDED FOR ITCH 30 30 for 30 Active Citalopram Hydrobromide 40 MG 2 tablet Orally Once a day for 30 day(s) Psy Active Nebulizer/Tubing/Mouthpie ce - as directed for treatment of Dx: J45.30 inhalation every 4-6 hours prn for 30 days 06/26/2019 Active Flovent HFA 110 MCG/ACT 2 puffs Inhalati on 2 times a day,Instr:rinse mouth and throat after use for 30 Active Azelastine HCl 0.1 % 1 puff in each nostril Nasally Twice a day Active Easy Touch Lancets 28G - as directed for 30 days Active Albuterol Sulfate HFA 108 (90 Base) MCG/ACT 2 puffs as needed Inhalation every 6 hrs Active LORazepam 1 MG 1 tablet at bedtime as needed Orally Once a day Active Ventolin HFA 108 (90 Base) MCG/ACT 1 puff as needed Inhalation every 4 hrs Active clonazePAM 1 MG 2 tablets in the am and 2 tablets in pm Orally twice a day CHD Unknown Fluconazole 50 MG 1 tablet Orally Daily for 10 day(s) 06/16/2020 Unknown Ozempic (0.25 or 0.5 MG/DOSE) 2 MG/3ML as directed Subcutaneous once a week Active Baclofen 10 MG 1 tablet as needed Orally Twice a day Active OXcarbazepine 150 MG 1 tablet Orally Once a day Active Zofran 4 MG as directed Orally for 7 days 07/07/2018 Unknown Admelog SoloStar 100 UNIT/ML 11 units Subcutaneous three times a day for 30 Unknown Fluticasone Propionate 50 MCG/ACT SPRAY TWICE INTO EACH NOSTRIL ONCE A DAY for 30 Unknown Azithromycin 250 MG 2 tablet day one 1 tab daily for 4 days Orally daily for 5 days 03/19/2022 Not-Taking metroNIDAZOLE 0.75 % _insert 1 APPLICATORFUL VAGINALLY ONCE A DAY AT BEDTIME FOR 10 DAYS for 10 Unknown Trulicity 3 MG/0.5ML inject the content of 1 pen under the skin each week as directed Subcutaneous weekly for 30 days 02/23/2022 Not-Taking Benzonatate 100 MG 1 capsule as needed Orally Three times a day for 7 days 10/25/2022 Not-Taking Trulicity 1.5 MG/0.5ML inject the conten t of 1 pen under the skin each week as directed Subcutaneous weekly for 30 days 02/23/2022 Not-Taking predniSONE 10 MG 1 tablet Orally Once a day for 7 days 10/06/2023 Not-Taking Tessalon Perles 100 MG 1 capsule as need ed Orally Three times a day for 7 days 03/19/2022 Not-Taking oxyCODONE HCl 30 mg TAKE 1 TABLET BY MOUTH 3 (THREE) TIMES A DAY NEEDED FOR PAIN by mouth 3 times a day for 14 days 01/02/2024 Not-Taking Cephalexin 500 MG 1 capsule Orally every 8 hours for 7 days 09/21/2023 Not-Taking predniSONE 20 MG 1 tablet Orally Once a day for 7 days 12/06/2023 Not-Taking Benzonatate 100 MG 1 capsule as needed Orally Three times a day for 7 days 12/06/2023 Not-Taking Doxycycline Hyclate 100 MG 1 capsule Orally Twice a day for 7 days 12/06/2023 Not-Taking predniSONE 20 MG 1 tablet Orally Once a day for 7 days 02/29/2024 Not-Taking Fluconazole 150 mg TAKE 1 TABLET BY MOUTH EVERY 3 DAYS for 3 Not-Taking Tobramycin 0.3 % 1 drop into affected eye Ophthalmic every 4 hrs for 7 days 02/01/2024 Not-Taking Dsvmlfsx-Gxjfqvuue-KY 1 % 4 drops into affected ear Otic Three times a day for 7 days 03/18/2023 Not-Taking Benzonatate 100 MG 1 capsule as needed Orally Three times a day for 14 days 02/29/2024 Not-Taking Ofloxacin 0.3 % 10 drops into affected ear Otic Once a day for 7 days 03/18/2023 Not-Taking ProAir HFA 108 (90 Base) MCG/ACT [...] as needed Orally Once a day Not-Taking Montelukast Sodium 10 mg TAKE 1 TABLET B Y MOUTH ONCE A DAY for 30 days Active Omeprazole 40 MG 1 capsule 1/2 to 1 hour before morning meal Orally Once a day for 30 days 04/18/2024 Active Ezetimibe 10 mg TAKE 1 TABLET BY MOUTH ONCE DAILY for 30 days Active tiZANidine HCl 4 mg 1 tablet oral three times a day prn for 10 days Active hydrOXYzine HCl 25 MG 1 tablet Orally Once a day for 90 days Active Losartan Potassium 100 mg TAKE [...] TAKE WITH MEALS for 30 days Active Atorvastatin Calcium 10 mg TAKE 1 TABLET BY MOUTH ONCE DAILY for 30 days Active True Comfort Safety Lancets - USE TO TEST FINGER STICK BLOOD SUGAR 3 (THREE) TIMES A DAY for 30 Active Loratadine 10 mg TAKE 1 TABLET BY MOUTH ONCE DAILY for 30 Active Vitamin D3 50 MCG (2000 UT) TAKE 1 CAPSULE BY MOUTH ONCE DAILY for 30 days Active FreeStyle Lite Test - USE TO TEST FINGER STICK BLOOD SUGAR 3 (THREE) TIMES A DAY for 30 Active Eliquis 5 mg TAKE ONE TABLET BY MOUTH two (2) times a day 30 for 30 Active Uvdxogfq-Emdaekupa-GC 1 % 4 drops into affected ear Otic Three times a day for 7 days 05/31/2023 Active Diclofenac Sodium 1 % APPLY TO THE AFFECTED AREA 3 (THREE) TIMES A DAY DIRECTED for 30 Active Alcohol Pads 70 % USE TOPICALLY THREE TIMES DAILY DIRECTED for 30 Active Meclizine HCl 25 MG 1 tablet as needed Orally every 12 hrs for 10 days 05/31/2023 Active True Comfort Pen [place] 32G X 4 MM USE TO INJECT insulin 5 TIMES A DAY for 25 Active Lantus SoloStar 100 UNIT/ML INJECT 90 UNITS UNDER THE SKIN ONCE A DAY DIRECTED for 30 Active hydroCHLOROthiazide 25 mg TAKE 1 TABLET BY MOUTH EVERY MORNING for 30 Active Omeprazole 20 mg TAKE 1 CAPSULE BY MOUTH 30 MINUTES BEFORE morning meal for 30 Active Vital Signs Temperature 95.6 degrees Fahrenheit 05/14/19 25 Oximetry 96 % 05/14/2024 Heart Rate 80 /min 05/14/2024 Blood pressure systolic 130 mm Hg 05/14/19 25 Blood pressure diastolic 76 mm Hg 025 Weight 217.2 lbs 05/14/2024 BMI 39.42 kg/m2 05/14/2024 Height 62.24 in 05/14/2024 Encounters Encounter Location Date Provider Diagnosis [facility] [address] [facility] [address] [place] [address] 05/14/2024 ELLA MICHAEL Pain in right leg M79.604 Assessments Encounter Date Diagnosis (ICD Code) Assessment Notes Treatment Notes Treatment Clinical Notes Section Notes 05/14/2024 Pain in right leg (ICD-10 - M79.604) Maribell is 63 years old lady with DM type II, hypertension, hyperlipidemia, generalized anxiety disorder, mild persistent asthma, insomnia, peripheral vascular disease, history of DVT, obesity, chronic kidney disease stage III is here for pain and discomfort in the right calf. Plan is as follows Pain right calf. She has history of DVT/pulmonary embolism. We will do ultrasound right lower extremity to rule out DVT. Keep leg elevated and continue Eliquis 5 mg twice a day Plan Of Treatment Pending Test Test Name Order Date US Duplex Venous Study RT 05/14/2024 Next Appt Details Follow Up: next appt, Reason : Provider Name:ELLA MICHAEL , 11/26/2024 10:00:00 AM, [address] [facility] [address], [place], [address], Progress Notes * MARIBELL SWEENEY HDOB: [birth year] (63 yo F)Acc No.[id number]:05/14/2024 Patient:?MARIBELL SWEENEY Provider:?ELLA MICHAEL MD :[id number]???Age:63 Y???Sex:Female D ate:05/14/2024 Address:[address] [place] [address] [place] [id number] Subjective: * Chief Complaints: * ???Right leg is swollen * HPI: ???Internal Medicine:?Maribell is a 63-year-old lady with DM2, hypertension, hyperlipidemia, asthma, insomnia and anxiety here for follow-up. She states that she had swelling of the right leg pain and discomfort.? She recently traveled to [facility].? There was no discoloration of the right leg.? No history of injury or trauma.? No other complaints. * ROS:?General/Constitutional:?Overall health?Good.?Change in appetite?denies.?Chills?denies.?Fever?denies.?Lightheadedness?denies.?Night sweats?denies.?Sleep disturbance?denies.?Weight [...] on urination?denies.?difficulty urinating?denies.?discharge?denies.?dysuria?denies.? * Medical History:? * Medications:?TakingBaclofen 10 MG Tablet 1 tablet [...] ONCE A DAY DIRECTED True Comfort Pen [place] 32G X 4 MM Miscellaneous USE TO INJECT insulin 5 TIMES A DAY Alcohol Pads 70 % Pad USE TOPICALLY THREE TIMES DAILY DIRECTED Meclizine HCl 25 MG Tablet 1 tablet as needed Orally every 12 hrs Mbqbrlyo-Rodrxdqfr-WK 1 % Solution 4 drops into affected [...] A DAY DIRECTED Taking True Comfort Pen [place] 32G X 4 MM Miscellaneous USE TO INJECT insulin 5 TIMES A DAY Taking Alcohol Pads 70 % Pad USE TOPICALLY THREE TIMES DAILY DIRECTED Taking Meclizine HCl 25 MG Tablet 1 tablet as needed Orally every 12 hrs Taking Nxgvdyou-Lgfhvyzng-AP 1 % Solution 4 drops into affected [...] day 30 Taking Vitamin D3 50 MCG (2000 UT) [...] into affected ear Otic Once a day Jzgnkcnm-Guoxeclpe-RG 1 % Solution 4 drops into affected [...] affected ear Otic Once a day Not-Taking Cvpcrsok-Mfmkrvdhq-GA 1 % Solution 4 drops into affected [...] - Side EffectsSolifenacinLyricaFluocinolone: Unknownno[Allergies Verified] Objective: * Vitals:?Temp:95.6F, Oxygen s at %:96%, HR:80/min, BP:130/76mm Hg, Wt:217.2lbs, BMI:39.42Index, Ht: 62.24 in. * Examination: ???General Examination: ?Psychiatry?Normal.?GENERAL APPEARANCE:?Well developed, [...] amputation left leg below knee joint.?FEMALE GENITOURINARY:?__.?MALE GENITOURINARY:?__.?Marquetry Worker? .? Assessment: * Assessment: 1.?Pain in right leg - M79.6 04 (Primary)??? Maribell is 63 years old lady with DM type II, hypertension, hyperlipidemia, generalized anxiety disorder, mild persistent asthma, insomnia, peripheral vascular disease, history of DVT, obesity, chronic kidney disease stage III is here for pain and discomfort in the right calf.? Plan is as follows Pain right calf.? She has history of DVT/pulmonary embolism.? We will do ultrasound right lower extremity to rule out DVT.? Keep leg elevated and continue Eliquis 5 mg twice a day Plan: * Treatment: * Procedure Codes:?3078F DIAST BP < 80 MM [id number] SYST BP GE 130 - 139MM HG * Follow Up:?next appt * * Sign off status: Completed true * Provider:?ELLA MICHAEL MD Date:?05/14 Generated for Hood sanchez/Nataliia/Barbara on:?06/04/2024 04:32 PM EST History and Physical Notes * HPI (History of Present Illness) Category Sub-Category Detail Notes Category Not es Internal Medicine Maribell is a 63-year-old lady with DM2, hypertension, hyperlipidemia, asthma, insomnia and anxiety here for follow-up. She states that she had swelling of the right leg pain and discomfort. She recently traveled to [facility]. There was no discoloration of the right leg. No history of injury or trauma. No other complaints Examination Category Sub-Category Detail Notes Category Not [...] Normal Psychiatry Normal OROPHARYNX Normal SINUSES Normal Marquetry Worker
--- OUTSIDE RECORDS SUMMARY | 2024-06-04 16:34 | XMS_ITS | Encounter Summary ---
Author Organization [facility] Address [address] [place] [address] Care Team Providers Care Media Center Director School Name Role Phone Samuel Hilario MD Primary Care Provider [phone] Reason for Visit * Reason Comments Foot Problem bryson Avila Encounter Details Date Type Department Care Team ([facility] st Contact Info) Description 05/10/2024 1:30 PM EST Consult Orthopedic Surgery - [place] [address] [phone] Nolberto Cruz, DPM [address] [address] Dermatophytosis of nail (Primary Dx); Hx of BKA, left ([facility]/HCC); Type II diabetes mellitus with peripheral circulatory disorder ([facility]); Diabetic mononeuropathy simplex ([facility]); Corns and callosities Social History [...] Arterial embolism and thrombosis of lower extremity ([facility]) Hypertension Morbid obesity ([facility]) Type 2 diabetes mellitus with neurological manifestations ([facility]) Diabetic gastroparesis ([facility]) Heartburn Fatty liver Diarrhea Urinary incontinence Postmenopausal bleeding Phantom limb syndrome ([facility]) Sleep apnea MUSA (obstructive sleep apnea) Asthma Chronic shoulder pain Chronic pain Carpal tunnel syndrome Depressive disorder Panic attacks Lumbago Lumbosacral spondylosis without myelopathy Rotator cuff tear Prurigo nodularis Eczema Generalized headaches History of leg amputation ([facility]) S/P BKA (below knee amputation) ([facility]) Tardive dyskinesia SOCIAL HISTORY: Social [...] of nail 2. Hx of BKA, left ([facility]) 3. Type II diabetes mellitus with peripheral circulatory disorder ([facility]) 4. Diabetic mononeuropathy simplex ([facility]) PLAN: Pt was seen and [...] PM EST Office Visit Orthopedic Surgery - [place] [address] [phone] Nolberto Cruz DPM [address] [address] 08/07/2024 2:30 PM EDT Office Visit Obstetrics & Gynecology - [address] [phone] Betty Matt, CNM [address] [place] [address] documented as of this encounter Visit Diagnoses Diagnosis Dermatophytosis of nail- Primary Hx of BKA, left ([facility]) Type II diabetes mellitus with peripheral circulatory disorder ([facility]) Type II or unspecified type diabetes mellitus with peripheral circulatory disorders, not stated as uncontrolled Diabetic mononeuropathy simplex ([facility]) Type II or unspecified type diabetes mellitus with neurological manifestations, not stated as uncontrolled Corns and callosities documented in this encounter Care Teams Media Center Director School Relationship Specialty Start Date End Date Samuel Hilario MD [address] [place] [place] [address] PCP - General Internal Medicine 03/19/20 documented as of this encounter
== END 2024-06-04 11:38 | disposition home or self-care (01) ==
LOC: HO.LAB 11:37
PROVIDERS: PCP Hospitalist; Visit Provider Nurse Practitioner Family
DX: N39.41 Urge incontinence (principal); R39.9 Unspecified symptoms and signs involving the genitourinary system
CPT/HCPCS: 81001; 87086; 87088; 87186

== ENCOUNTER 2024-07-05 10:47 | Outpatient (REF) | payer OTHER, SELFPAY ==
--- OUTSIDE RECORDS SUMMARY | 2024-07-05 12:49 | XMS_ITS | Encounter Summary ---
Author Organization [employer] Address [address] [place] [address] Care Team Providers Care Press Helper Name Role Phone Samuel Hilario MD Primary Care Provider [phone] Reason for Visit * Reason Onset Date Comments medication 05/14/2024 Encounter Details Date Type Department Care Team ([facility] Contact Info) Description 05/14/2024 Telephone Orthopedic Surgery - [place] [address] [phone] Nolberto Cruz, DPM [address] [address] medication Social History Tobacco Use Types Packs/Day Years Used Date Smoking Tobacco: Former Cigarettes Q uit: 05/09/1999 Smokeless Tobacco: Never Alcohol Use Standard Drinks/Week Comments No 0 (1 standard drink = 0.6 oz pur e alcohol) Comments Unknown Sex and Gender Information Value Date Recorded Sex Assigned at Not on file Legal Sex Female 1:57 PM EST Gender Identity Not on file Sexual Orientation Not on file documented as of this encounter Progress Notes * Katia Beavers - 05/14/2024 2:45 PM EST Patient is calling inquiring on the status of a script for a Cream for her right foot for dry skin [facility]/ Please advise. She can be reached @ [phone] Thanks. documented in this encounter Plan of Treatment Upcoming Encounters Date Type Department Care Team ([facility] Contact Info) Description 08/07/2024 2:30 PM EDT [facility] [address] [place] [address] Betty Matt, NAZ [address] [place] [address] 09/19/2024 2:00 PM EDT Office Visit Orthopedic Surgery - [place] [address] [phone] Nolberto Cruz, DPM [address] [address] documented as of this encounter Visit Diagnoses Not on filedocumented in this encounter Care Teams Press Helper Relationship Specialty Start Date End Date Samuel Hilario MD [address] [place] [address] PCP - General Internal Medicine 03/19/20 documented as of this encounter
--- OUTSIDE RECORDS SUMMARY | 2024-07-05 12:49 | XMS_ITS | Continuity of Care Document ---
Author Organization [facility], [facility] Address [address] [place] [address] Care Team Providers Care Stablehand Name Role Phone ELLA MICHAEL Primary Care Provider Assessment No assessment recorded. Plan of Treatment Reminders Order Date Submit Date Provider Last Modified By Organization Details Last Modified Time Details Appointments Hearing Test 2024 03:00P M Hearing Test Not available Not available Not available Establish ed 15 2024 03:30P M DURAN NELSON MD Not available Not available Not available Lab None recorded. Referral None recorded. Procedures None recorded. Surgeries None recorded. Imaging None recorded. Medication Orders None recorded. Patient TargetsNo targets recorded. Patient InstructionsNo instructions recorded. Reason for Referral None Reported. Results Created Date Observation Date Name Description Value Unit Range Abnormal Flag Note LastModifiedBy Organization Detail LastModifiedTime 06/14/19 25 05/30/2024 MRI, cervi elina spine , w/o contr ast No observ ation record ed. [facility]iology ([facility]) [address], [place], [address], 06/14/2024 10:19:22 06/20/19 25 05/30/2024 MRI, cervi elina spine , w/o contr ast No observ ation record ed. [email or web address] Not Available 2024 16:10:50 Result Notes None recorded. Problems Name Problem SNOMED Code Status Onset Date Resolution Date Notes Provider Name and Address Organization Details Recorded Time Otalgia of left ear 5193991628 Active 2020 Otalgia, left ear; Note: Date Diagnosed : 04/08/2021 3:18 PM (H92.02) Not Available [facility] 4 02:15:47 Diffuse otitis externa 80113759 Active 2020 Diffuse otitis externa, left ear; Note: Date Diagnosed : 07/17/2020 5:26 PM (H60.312) Note: Date Diagnosed : 07/17/2020 5:26 PM (H60.312) Not Available [facility] 4 00:49:08 Pain of left temporoma ndibular joint [id number] 924675 Active 2020 Arthralgi a of left temporoma ndibular joint; Note: Date Diagnosed : 04/08/2021 3:18 PM (M26.622) Not Available [facility] 4 02:15:35 Tinnitus of left ear 90592714914 06 Active 2020 Tinnitus, left ear; Note: Date Diagnosed : 04/08/2021 3:18 PM (H93.12) Not Available [facility] 4 02:13:36 Disorder of nasal sinus 1333605 Active 2019 Unspecifi ed disorder of nose and nasal sinuses; Note: Date Diagnosed : 12/11/2019 7:07 PM (J34.9) Not Available [facility] 4 02:14:50 Disorder of the nose 68207577 Active 2019 Unspecifi ed disorder of nose and nasal sinuses; Note: Date Diagnosed : 12/11/2019 7:07 PM (J34.9) Not Available [facility] 4 02:14:50 Dysphagia 05692009 Active 2017 Dysphagia , unspecifi ed; Note: Date Diagnosed : 10/26/2017 3:35 PM (R13.10) Not Available [facility] 4 02:15:17 Acute maxillary sinusitis 08468501 Active 2019 Acute maxillary sinusitis , unspecifi ed; Note: Date Diagnosed : 12/11/2019 7:07 PM (J01.00) Not Available [facility] 4 02:13:26 Itching of skin 517380796 Active 2019 Pruritus, unspecifi ed; Note: Date Diagnosed : 12/17/2019 9:41 AM (L29.9) Not Available [facility] 4 02:15:04 Gastroeso phageal reflux disease without esophagit is 187083677 Active 2017 Gastro-es ophageal reflux disease without esophagit is; Note: Date Diagnosed : 10/26/2017 3:36 PM (K21.9) Not Available [facility] 4 02:13:57 Sensorine ural hearing loss 29836726 Active 2020 Sensorine ural hearing loss, unilatera l, left ear, with unrestric trisha hearing on the contralat eral side; Note: Date Diagnosed : 08/04/2020 11:03 AM (H90.42) Not Available [facility] 4 02:14:29 Trigemina l neuralgia 23860968 Active 2023 DURAN NELSON MD [address] [place] [address], [facility] [place], [address] , [facility] 4 18:40:58 Localized masticato ry muscle soreness 764797875 Active 2023 Myalgia of masticati on muscle; Note: Date Diagnosed : 07/26/2023 2:53 PM (M79.11) Not Available [facility] 4 02:15:11 Type 2 diabetes mellitus without complicat ion 303993171 Active 2023 Type 2 diabetes mellitus without complicat ions; Note: Date Diagnosed : 06/13/2023 1:31 PM (E11.9) Not Available [facility] 4 02:15:17 Problem Notes None recorded. Medical Equipment None Reported. Allergies Allergen ID Allergen Name Allergen Category Reaction Reaction Severity Criticality Documentation Date Start Date Code Code System Note Provider Name and Address Organization Details Recorded Time 13406 aspirin medicatio n other Not available Not available 09/20/2023 1191 RxNorm React ion: unkno wn, unspe cifie d;; Not Available [facility] 4 00:49:02 26210 acetamino phen / oxycodone medicatio n other Not available Not available 09/20/2023 61542 3 RxNorm React ion: unkno wn, unspe cifie d;; Not Available [facility] 4 00:49:48 03065 naproxen medicatio n other Not available Not available 09/20/2023 7258 RxNorm React ion: unkno wn, unspe cifie d;; Not Available [facility] 4 00:49:48 Medications Name Sig Start Date Stop Date Status Note LastModified by Organization Details LastModified Time d3 super strength 50 mcg (1999 ut) caps active Not Available Not Available Not Available d3 50 mcg (1999 ut) caps active [...] (THREE) TIMES A DAY FOR 7 DAYS 06/14 completed Not Available Not Available Not Available oxcarbaze pine 150 mg tablet TAKE 1 TABLET BY [...] 1 TABLET BY MOUTH EVERY 3 DAYS 06/14 completed Not Available Not Available Not Available benzonata te 200 mg capsule TAKE 1 CAPSULE BY MOUTH 3 (THREE) TIMES A DAY 06/14 completed Not Available Not Available Not Available metronida zole 0.75 % (37.5 mg/5 [...] BY MOUTH ONCE DAILY FOR 7 DAYS 06/14 completed Not Available Not Available Not Available Alcohol Pads USE TOPICALL Y THREE TIMES DAILY active Not Available Not Available No t Available metoprolo l succinate ER 100 mg tablet,ex tended release 24 hr TAKE 1 TABLET BY MOUTH ONCE DAILY active Not Available Not Available No t Available metformin 850 mg tablet TAKE 1 TABLET BY MOUTH two (2) times a day. TAKE WITH MEALS 06/14 completed Not Available Not Available Not Available amlodipin e 5 mg tablet TAKE ONE TABLET BY MOUTH ONCE A DAY active Not Available Not Available No t Available ciproflox acin 500 mg tablet Take 1 tablet by mouth twice a day 06/14 completed Medicati on ID: [id number] D uration Value: 10 Brand Name: ciproflo xacin HCl Send Method: E-Prescr ibed Sub s Allowed: subs OK Medic ationGen ericName : ciproflo xacin HCl Not Available Not Available Not Available omeprazol e 40 mg capsule,d elayed release TAKE 1 CAPSULE BY MOUTH 1/2 TO 1 HOUR BEFORE A MEAL IN THE MORNING active Not Available Not Available No t Available zinc oxide 20 % topical ointment [...] mg tablet 2017 active Medicati on ID: [id number] D uration Value: 30 Brand Name: cyprohep [...] Not Available Not Available No t Available baclofen 10 mg tablet TAKE 1 TABLET BY MOUTH two (2) times a day active Not Available Not Available No t Available benzonata te 100 mg capsule TAKE 1 CAPSULE BY MOUTH 3 (THREE) TIMES A DAY NEEDED 06/14 completed Not Available Not Available Not Available econazole nitrate 1 % topical cream APPLY TO THE AFFECTED AREA TOPICALL Y two (2) times a day active Not Available Not Available No t Available cephalexi n 500 mg capsule TAKE 1 CAPSULE BY MOUTH EVERY 8 HOURS FOR 7 DAYS 10/19 completed Not Available Not Available Not Available tobramyci n 0.3 % eye drops INSTILL 1 DROP INTO AFFECTED EYE(S) EVERY 4 HOURS FOR 7 DAYS 06/14 completed Not Available Not Available Not Available [...] topical solution 01/11 completed Medicati on ID: [id number] D uration Value: 14 Prescri bed By Name: AZUCENA Andrade nd Name: charity newberry Method: E-Prescr ibed Sub s Allowed: subs OK Speci al Instruct ion: 4 drops to affected ear BID x 2 weeks Me dication GenericN jean carlos: clotrima zole Not Available Not Available Not Available omeprazol e 20 mg capsule,d elayed release TAKE 1 CAPSULE BY MOUTH 30 MINUTES BEFORE BREAKFAS T 06/14 completed Not Available Not Available Not Available monteluka st 10 mg tablet TAKE [...] small amount 2020 active Medicati on ID: [id number] D uration Value: 7 Prescri bed By Name: AZUCENA Andrade nd Name: ramirez aebl Send Method: E-Prescr ibed Sub s Allowed: subs OK Medic ationGen ericName : mupiroci n Not Available Not Available Not Available oxycodone 30 mg tablet TAKE 1 TABLET BY MOUTH 3 (THREE) TIMES A DAY NEEDED FOR PAIN 06/14 completed Not Available Not Available Not Available lorazepam 1 mg tablet TAKE 1 TABLET BY MOUTH two (2) times a day NEEDED active Not Available Not Available No [...] HOURS NEEDED FOR NAUSEA AND FOR VOMITING 06/14 completed Not Available Not Available Not Available losartan 100 mg tablet TAKE 1 [...] Not Available Not Available No t Available fluticaso ne propionat e 110 mcg/actua tion HFA aerosol inhaler INHALE 2 PUFFS BY MOUTH INTO THE lungs two (2) times a day active Not [...] completed Not Available Not Available Not Available amoxicill in 500 mg-potass ium clavulana te 125 mg tablet TAKE 1 TABLET BY MOUTH EVERY 8 HOURS FOR 10 DAYS active Not Available Not Available No t Available Ventolin HFA 90 mcg/actua tion aerosol [...] drops,randy pension 01/11 completed Medicati on ID: [id number] P stewart d By Name: AZUCENA Andrade nd Name: TobraDex Send Method: E-Prescr ibed Sub s Allowed: subs OK Speci al Instruct ion: Instill 3 drops in the affect ear BID for 14 days Med icationG enericNa me: TobraDex Not Available Not Available Not Available ezetimibe 10 mg tablet TAKE 1 TABLET BY MOUTH ONCE DAILY active Not Available Not Available No t Available metformin ER 750 mg tablet,ex tended release 24 hr TAKE 1 TABLET BY MOUTH two (2) [...] must TAKE WITH A MEAL OR FOOD 06/14 completed Not Available Not Available Not Available Nyamyc 100,000 unit/gram topical powder APPLY TO THE AFFECTED AREA TOPICALL Y 3 (THREE) TIMES A DAY. APPLY TO abdomina l fold bilatera lly active Not Available Not Available No t Available DermOtic Oil 0.01 % ear drops 5 drop 2020 active Medicati on ID: [id number] D uration Value: 30 Prescri bed By [...] by mouth 10/19 completed Medicati on ID: [id number] D uration Value: 30 Prescri bed By Name: VINAY Cheney nd Name: omeprazo le Send Method: E-Prescr ibed Sub s Allowed: subs OK Speci al Instruct ion: Take 1 tablet by mouth every day before a meal Med icationG enericNa me: omeprazo le Medic ation ID: [id number] D uration Value: 30 Prescri bed By Name: VINAY Cheney nd Name: omeprazo le Send Method: E-Prescr [...] Not Available Not Available No t Available Vitamin D3 50 mcg (2,000 unit) capsule TAKE 1 CAPSULE BY MOUTH ONCE DAILY active Not Available Not Available No t Available Eliquis 5 mg tablet TAKE 1 TABLET BY MOUTH two (2) times a day active Not Available Not Available No t Available Comfort EZ Pen [place] 32 gauge x 5/32 USE TO INJECT insulin 5 TIMES A DAY active Not Available Not Available No t Available Jardiance 10 mg tablet TAKE 1 TABLET BY MOUTH EVERY MORNING active Not Available Not Available No t Available Asmanex HFA 100 mcg/actua tion aerosol inhaler INHALE 2 PUFFS BY MOUTH INTO THE LUNGS two (2) times a day, rinse mouth and throat after use active Not Available Not Available No t Available Flonase Allergy Relief 50 mcg/actua tion nasal spray,randy pension 2 puff into both nostrils 2019 active Medicati on ID: [id number] D uration Value: 30 Prescri bed By [...] Available No t Available FreeStyle Antonio 2 Hellier USE DIRECTED active Not Available Not Available [...] and Address Organization Details Last Updated DateTime 06/14/2024 157.48 cm 36.9 kg/m2 36146.66 g Nyla Rowland [place] - [facility] 06/14/2024 09:18:50 Social History None recorded. Functional Status None recorded. Mental Status None recorded. Family History Nothing Reported. Medical History No medical history recorded. Gynecological HistoryNo gynecological history recorded. Obstetrics History GPAL:G 0 P 0 0 0 0 Past Encounters Encounter ID Performer Location Encounter Start Date Encounter Closed Date Diagnosis/Indication Diagnosis SNOMED-CT Code Diagnosis ICD10 Code Diagnosis Note [id number] DURAN NELSON MD [facility] [address] [place] [address] 06/14/2024 09:03:19 06/14/2024 09:30:18 Otalgia of left ear [id number] H92.02 63 yo F presents for follow up of her left ear. No infection. Middle ear aerated. she can continue the vinegar drops for maintenanc e and lotrisone sparingly to the EAC meatus as needed. Follow up three months for reassessme nt. Will recheck hearing then. If ear canal is healthy appearing at that visit, we will stretch follow-up to 6 months. Health Concerns Section Related Observation LastModified by Organization Detai ls LastModified Time None Recorded Concern Status LastModified by Organization Details LastModified Time None Recorded Payers Encounter Date Sequence Insurance Name Policy Number Policy Yost Covered Member ID Yost Member ID Guarantor Name 06/14/2024 1 [facility] [id number] Maribell Blackwell Colon [id number] Maribell Blackwell Colon Notes Date Note Type Note Provider Name and Address Organization Details Recorded Time 06/14/2024 text/html Oxcarbazepine helping with headaches. Since her last visit, she had an MRI of the cervical spine which showed generalized degenerative changes with very similar appearance to prior CT, ventral defects of the thecal sac at each level with no cord effacement or intradural signal abnormality. There is also multi level facet and general foraminal narrowing. She has been referred for physical therapy. She had to defer that as she is currently being treated for a UTI. Some intermittent tinnitus on the left. Most recent AIC 7.4. DURAN NELSON MD [address] [place] [address], [place], [address], [place] [facility] 06/14/2024 09:30:26 OBGyn Episode No OBEpisode recorded.
[2024-07-05 12:50] LABS: Appearance Urine Clear; Color Urine Yellow; Glucose Urine UA Negative (Negative); Leukocyte Esterase Urine Negative (Negative); Nitrite Urine Negative (Negative); PH 5.5 (5.0-9.0); Urine Blood Negative (Negative); Urine Ketones Negative (Negative); Urine Protein Negative (Neg-Trace)
--- OUTSIDE RECORDS SUMMARY | 2024-07-05 12:50 | XMS_ITS | Encounter Summary ---
Author Organization [facility] Address [address] [place] [address] Care Team Providers Care Electrical Cad Designer Name Role Phone Samuel Hilario MD Primary Care Provider [phone] Reason for Visit * Reason Comments Follow-up Hammer toe right carmel t Encounter Details Date Type Department Care Team ([facility] st Contact Info) Description 06/20/2024 2:45 PM EST Office Visit Orthopedic Surgery [facility] [address] [phone] Nolberto Cruz, DPM [address] [address] Acquired hammer toe of right foot (Primary Dx); Dermatophytosis of nail; Hx of BKA, left (CMS/HCC); Type II diabetes mellitus with peripheral circulatory disorder ([facility]/HCC); Corns and callosities; Diabetic mononeuropathy simplex ([facility]) Social History Tobacco Use Types Packs/Day Years [...] - Inhaled Oxygen Concentration - - Weight 90.7 kg (200 lb) 06/20/2024 1:38 PM EST Height 157.5 cm (5' 2.01 ) 06/20/2024 1:38 PM ES T Body Mass Index 36.57 06/20/2024 1:38 PM EST documented in this encounter Progress Notes * Nolberto Cruz, DPM - 06/20/2024 2:45 PM EST S Presents today for evaluation of her feet [...] her w ith irritation of the skin states that she can do much better new shoe gear previously prescribed states she needs a new shoes and has helped tremendously with her hammertoe contractural deformity she is very happy with wider shoe gear ROS: GENERAL: Pt denies nausea, fever, vomiting, [...] Arterial embolism and thrombosis of lower extremity ([facility]) Hypertension Morbid obesity ([facility]) Type 2 diabetes mellitus with neurological manifestations ([facility]) Diabetic gastroparesis ([facility]) Heartburn Fatty liver Diarrhea Urinary incontinence Postmenopausal bleeding Phantom limb syndrome ([facility]) Sleep apnea MUSA (obstructive sleep apnea) Asthma Chronic shoulder pain Chronic pain Carpal tunnel syndrome Depressive disorder Panic attacks Lumbago Lumbosacral spondylosis without myelopathy Rotator cuff tear Prurigo nodularis Eczema Generalized headaches History of leg amputation ([facility]) S/P BKA (below knee amputation) ([facility]) Tardive dyskinesia SOCIAL HISTORY: Social History Tobacco Use Smoking status: Former Current packs/day: 0.00 Types: Cigarettes Quit date: 05/09/1999 Years since quittin.1 Smokeless tobacco: Never Substance Use Topics Alcohol use: No ACTIVE MEDICATIONS: Outpatient Medications Marked as Taking for the 06/20/24 encounter (Office Visit) with Nolberto Sun DPM Medication Sig Dispense Refill albuterol HFA (PROAIR HFA ; PROVENTIL HFA ; VENTOLIN HFA) 90 mcg/actuation inhaler Inhale 2 puffs by mouth every 4 (four) hours if needed for wheezing or shortness of breath (for up to 30 days). albuterol HFA (PROAIR HFA ; PROVENTIL HFA ; VENTOLIN HFA) 90 mcg/actuation inhaler Inhale 2 puffs by mouth every 4 (four) hours if needed. albuterol HFA (PROAIR HFA ; PROVENTIL HFA ; VENTOLIN HFA) 90 mcg/actuation inhaler Inhale 2 puffs by mouth every 4 (four) hours if needed. apixaban (ELIQUIS) 5 mg tablet Take by mouth. atorvastatin (LIPITOR) 10 mg tablet Take 1 tablet (10 mg total) by mouth 1 (one) time each day. azelastine (ASTELIN) 137 mcg (0.1 %) nasal spray 2 Sprays by Each Nare route 2 times daily for 30 days. Use in each nostril as directed azelastine HCl (AZELASTINE NASL) 2 sprays each nostril each day beclomethasone (QNASL) 80 mcg/actuation HFA aerosol inhaler 2 Squirts by Nasal route daily for 30 days. betamethasone, augmented, (DIPROLENE-AF) 0.05 % cream Apply to eczematous patches daily as needed, for no longer than a 2-3 week period, then only on Sat/Sun blood sugar diagnostic (FreeStyle Lite Strips) test strip USE TO TEST FINGER STICK BLOOD SUGAR THREE TIMES DAILY calcipotriene (DOVONOX) 0.005 % ointment Apply sparingly second after mometasone twice a day to affected areas on arms and legs as needed cetirizine (ZyrTEC) 10 mg tablet Take 1 tablet (10 mg total) by mouth 1 (one) time each day. citalopram (CeleXA) 20 mg tablet Take 1 tablet (20 mg total) by mouth 1 (one) time each day. clobetasoL (TEMOVATE) 0.05 % cream To affected area 2-3 times daily for no more than 2-3 weeks, then only using on the weekends prn clotrimazole-betamethasone (LOTRISONE) 1-0.05 % cream apply to affected area bid cyproheptadine (PERIACTIN) 4 mg tablet TAKE ONE TABLET BY MOUTH 3 (THREE) TIMES A DAY NEEDED FORITCH docusate sodium (STOOL SOFTENER ORAL) None Entered EASY COMFORT LANCETS MISC USE TO TEST FINGER STICK BLOOD SUGAR THREE TIMES DAILY empagliflozin-metformin (Synjardy XR) 12.5-1,000 mg tablet, IR - ER, biphasic 24hr Take by mouth. 1at bedtime fluconazole (DIFLUCAN) 150 mg tablet Take one tab today, if no improvement in 3 days then take 2nd dose fluticasone HFA (FLOVENT HFA) 110 mcg/actuation inhaler Inhale 2 puffs by mouth 2 (two) times a day. For 30 days fluticasone-salmeterol (Advair Diskus) 250-50 mcg/dose diskus inhaler 1 PUFF BID hydroCHLOROthiazide (HYDRODIURIL) 25 mg tablet 1 TABLET DAILY hydrOXYzine HCL (ATARAX) 10 mg tablet Take 1 tablet (10 mg total) by mouth 3 (three) times a day ifneeded for itching. incontinence pad, liner, disp pad use as directed insulin glargine,hum.rec.anlog (Basaglar KwikPen U-100 Insulin) 100 unit/mL (3 mL) injection pen INJECT 75 UNITS UNDER THE SKIN DAILY insulin lispro (HumaLOG KwikPen Insulin) 100 unit/mL injection pen Inject 5-10 Units into the skin 3 times daily (with meals). ipratropium-albuteroL (DUONEB) 0.5-2.5 mg/3 mL nebulizer solution 3 ML 4 TIMES DAILY isopropyl alcohol-benzocaine 70-6 % pads, medicated USE TOPICALLY THREE TIMES DAILY DIRECTED LACTOBACILLUS BIFIDUS ORAL Take 1 capsule by mouth 1 (one) time each day. levalbuterol (XOPENEX) 0.63 mg/3 mL nebulizer solution Take 1 ampule by nebulization every 4 (four)hours if needed for wheezing. lidocaine hydrogel ([facility]) 2 % topical spray Apply sparingly 2-3 times a day to affected areas on right arm and chest if itchy loratadine (Claritin) 10 mg tablet 1 po qd prn losartan (COZAAR) 100 mg tablet Take 1 tablet (100 mg total) by mouth 1 (one) time each day. metoprolol succinate (TOPROL-XL) 100 mg 24 hr tablet 1 TABLET DAILY mirabegron (Myrbetriq) 25 mg 24 hr tablet 1 Tab daily. mirtazapine (REMERON) 15 mg tablet 1 TABLET DAILY mometasone (ELOCON) 0.1 % cream Apply sparingly first before calcipotriene twice a day to affected areas on arms and chest as needed montelukast (SINGULAIR) 10 mg tablet Take 1 tablet (10 mg total) by mouth at bedtime. For 30 days nystatin-triamcinolone (MYCOLOG II) ointment Apply to affected area BID for up to 2 weeks oxyCODONE (ROXICODONE) 30 mg immediate release tablet Take 1 tablet (30 mg total) by mouth 3 (three) times a day if needed for moderate pain. oxycodone HCl/acetaminophen (TYLOX ORAL) 1 CAPSULE EVERY 6 HOURS NEEDED pantoprazole (PROTONIX) 40 mg EC tablet Take 1 tablet (40 mg total) by mouth 1 (one) time each day. pen needle, diabetic 32 gauge x 5/32 needle Inject 5x daily polyethylene glycol (MIRALAX) 17 gram packet DISSOLVE 1 capful (17gm) IN WATER AND DRINK 1 TO 2 TIMES daily as NEEDED FOR CONSTIPATION QUEtiapine (SEROquel) 100 mg tablet 1 tab at hs salmeteroL (SEREVENT) 50 mcg/dose diskus inhaler Inhale 1 puff by mouth 2 (two) times a day. For 30days temazepam (RESTORIL) 15 mg capsule Take 1 capsule (15 mg total) by mouth at bedtime as needed. tiZANidine (ZANAFLEX) 2 mg tablet Take 1 tablet (2 mg total) by mouth every 8 (eight) hours if needed for muscle spasms (for up to 5 days). triamcinolone (KENALOG) 0.1 % cream apply bid to affected areas UNDERPADS MISC use for bed at night for incontinence zinc oxide 20 % ointment APPLY TO THE AFFECTED AREA TOPICALLY two (2) times a day ALLERGIES: Allergies Allergen Reactions Nsaids (Non-Steroidal Anti-Inflammatory Drug) Anaphylaxis Shellfish Containing Products Anaphylaxis Shellfish Derived Anaphylaxis Acetaminophen Aspirin Cephalexin Codeine Iodinated Contrast Media Menthol-Zinc Oxide Rash Naproxen Wheezing Oxycodone-Acetaminophen Peanut Butter Flavor Topiramate PHYSICAL EXAM: Visit Vitals Ht 1.575 m (62.01 ) Wt 90.7 kg (200 lb) BMI 36.57 kg/m?? Smoking Status Former BSA 1.91 m?? PODIATRIC EXAMINATION: GENERAL: Patient appears well [...] left hammertoe right hallux IMAGING: IMPRESSION: 1. Acquired hammer toe of right foot 2. Dermatophytosis of nail 3. Hx of BKA, left ([facility]) 4. Type II diabetes mellitus with peripheral circulatory disorder ([facility]) 5. Corns and callosities 6. Diabetic mononeuropathy simplex ([facility]) PLAN: Pt was seen and examined, history reviewed. Continue with newly fitted diabetic shoes prescribed for contractural deformity with [...] Care Team (Late st Contact Info) Description 08/07/2024 2:30 PM EDT Office Visit [facility] [address] [place] [address] Betty Matt CNM [address] [place] [address] 09/19/2024 2:00 PM EDT Office Visit Orthopedic Surgery - [place] [address] [phone] Nolberto Cruz, DPM [address] [phone] documented as of this encounter Visit Diagnoses Diagnosis Acquired hammer toe of right foot- Primary Dermatophytosis of nail Hx of BKA, left (CMS/HCC) Type II diabetes mellitus with peripheral circulatory disorder (CMS/HCC) Type II or unspecified type diabetes mellitus with peripheral circulatory disorders, not stated as uncontrolled Corns and callosities Diabetic mononeuropathy simplex (CMS/HCC) Type II or unspecified type diabetes mellitus with neurological manifestations, not stated as uncontrolled documented in this encounter Care Teams Electrical Cad Designer Relationship Specialty Start Date End Date Samuel Hilario MD [address] [place] [address] PCP - General Internal Medicine 03/19/20 documented as of this encounter
--- OUTSIDE RECORDS SUMMARY | 2024-07-05 12:50 | XMS_ITS | Clinical Summary ---
Author Organization 175 [facility] Address [address] [place] [address] Phone Care Team Providers Care Field Operations Technician Name Role Phone Samuel Hilario MD Primary Care Provider [phone] Allergies Active Allergy Reactions Criticality Noted Date Comments Acetaminophen 05/21/2016 Aspirin 05/21/2016 Cephalexin 05/21/2016 Codeine 05/21/2016 Iodinated Contrast Media 05/21/2016 Menthol-Zinc Oxide Rash 08/19/2005 Naproxen Wheezing 08/19/2005 Nsaids (Non-Steroidal Anti-I nflammatory Drug) Anaphylaxis High 03/18/2014 Oxycodone-Acetaminophen 05/21/2016 Peanut Butter Flavor 10/02/2020 Shellfish Containing Products Anaphylaxis High 04/17 Shellfish Derived Anaphylaxis High 05/15/2009 Topiramate 05/21/2016 Medications polyethylene glycol (MIRALAX) 17 gram packet DISSOLVE 1 capful (17gm) IN WATER AND DRINK 1 TO 2 TIMES daily as NEEDED FOR CONSTIPATION 4 Active zinc oxide 20 % ointment APPLY TO THE AFFECTED AREA TOPICALLY two (2) times a day 4 Active fluconazole (DIFLUCAN) 150 mg tablet Take one tab today, if no improvement in 3 days then take 2nd dose 4 Active nystatin-triam cinolone (MYCOLOG II) ointment Apply to affected area BID for up to 2 weeks 4 Active LACTOBACILLUS BIFIDUS ORAL Take 1 capsule by mouth 1 (one) time each day. 2 Active empagliflozin- metformin (Synjardy XR) 12.5-1,000 mg tablet, IR - ER, biphasic 24hr Take by mouth. 1 at bedtime Active apixaban (ELIQUIS) 5 mg tablet Take by mouth. Activ e montelukast (SINGULAIR) 10 mg tablet Take 1 tablet (10 mg total) by mouth at bedtime. For 30 days 8 Active oxyCODONE (ROXICODONE) 30 mg immediate release tablet Take 1 tablet (30 mg total) by mouth 3 (three) times a day if needed for moderate pain. 8 Active EASY COMFORT LANCETS MISC USE TO TEST FINGER STICK BLOOD SUGAR THREE TIMES DAILY 8 Active mometasone (ELOCON) 0.1 % cream Apply sparingly first before calcipotriene twice a day to affected areas on arms and chest as needed 8 Active isopropyl alcohol-benzoc berhane 70-6 % pads, medicated USE TOPICALLY THREE TIMES DAILY DIRECTED 8 Active cyproheptadine (PERIACTIN) 4 mg tablet TAKE ONE TABLET BY MOUTH 3 (THREE) TIMES A DAY NEEDED FOR ITCH 8 Active insulin glargine,hum.r ec.anlog (Basaglar KwikPen U-100 Insulin) 100 unit/mL (3 mL) injection pen INJECT 75 UNITS UNDER THE SKIN DAILY 8 Active cetirizine (ZyrTEC) 10 mg tablet Take 1 tablet (10 mg total) by mouth 1 (one) time each day. 8 Active atorvastatin (LIPITOR) 10 mg tablet Take 1 tablet (10 mg total) by mouth 1 (one) time each day. 8 Active losartan (COZAAR) 100 mg tablet Take 1 tablet (100 mg total) by mouth 1 (one) time each day. 8 Active salmeteroL (SEREVENT) 50 mcg/dose diskus inhaler Inhale 1 puff by mouth 2 (two) times a day. For 30 days 8 Active azelastine (ASTELIN) 137 mcg (0.1 %) nasal spray 2 Sprays by Each Nare route 2 times daily for 30 days. Use in each nostril as directed 8 Active fluticasone HFA (FLOVENT HFA) 110 mcg/actuation inhaler Inhale 2 puffs by mouth 2 (two) times a day. For 30 days 8 Active levalbuterol (XOPENEX) 0.63 mg/3 mL nebulizer solution Take 1 ampule by nebulization every 4 (four) hours if needed for wheezing. 8 Active albuterol HFA (PROAIR HFA ; PROVENTIL HFA ; VENTOLIN HFA) 90 mcg/actuation inhaler Inhale 2 puffs by mouth every 4 (four) hours if needed for wheezing or shortness of breath (for up to 30 days). 8 Active beclomethasone (QNASL) 80 mcg/actuation HFA aerosol inhaler 2 Squirts by Nasal route daily for 30 days. 8 Active lidocaine hydrogel ([facility] [place] [facility]) 2 % topical spray Apply sparingly 2-3 times a day to affected areas on right arm and chest if itchy 7 Active pantoprazole (PROTONIX) 40 mg EC tablet Take 1 tablet (40 mg total) by mouth 1 (one) time each day. 7 Active tiZANidine (ZANAFLEX) 2 mg tablet Take 1 tablet (2 mg total) by mouth every 8 (eight) hours if needed for muscle spasms (for up to 5 days). 7 Active pen needle, diabetic 32 gauge x /32 needle Inject 5x daily 7 Active blood sugar diagnostic (FreeStyle Lite Strips) test strip USE TO TEST FINGER STICK BLOOD SUGAR THREE TIMES DAILY 7 Active temazepam (RESTORIL) 15 mg capsule Take 1 capsule (15 mg total) by mouth at bedtime as needed. Active calcipotriene (DOVONOX) 0.005 % ointment Apply sparingly second after mometasone twice a day to affected areas on arms and legs as needed 7 Active mirabegron (Myrbetriq) 25 mg 24 hr tablet 1 Tab daily. 7 Active insulin lispro (HumaLOG KwikPen Insulin) 100 unit/mL injection pen Inject 5-10 Units into the skin 3 times daily (with meals). 7 Active clobetasoL (TEMOVATE) 0.05 % cream To affected area 2-3 times daily for no more than 2-3 weeks, then only using on the weekends prn 7 Active hydrOXYzine HCL (ATARAX) 10 mg tablet Take 1 tablet (10 mg total) by mouth 3 (three) times a day if needed for itching. 7 Active betamethasone, augmented, (DIPROLENE-AF) 0.05 % cream Apply to eczematous patches daily as needed, for no longer than a 2-3 week period, then only on Sat/Sun 7 Active citalopram (CeleXA) 20 mg tablet Take 1 tablet (20 mg total) by mouth 1 (one) time each day. Active albuterol HFA (PROAIR HFA ; PROVENTIL HFA ; VENTOLIN HFA) 90 mcg/actuation inhaler Inhale 2 puffs by mouth every 4 (four) hours if needed. 9 Active oxycodone HCl/acetaminop hen (TYLOX ORAL) 1 CAPSULE EVERY 6 HOURS NEEDED 0 Active incontinence pad, liner, disp pad use as directed 0 Active QUEtiapine (SEROquel) 100 mg tablet 1 tab at hs 0 Active mirtazapine (REMERON) 15 mg tablet 1 TABLET DAILY 0 Active azelastine HCl (AZELASTINE NASL) 2 sprays each nostril each day Active ipratropium-al buteroL (DUONEB) 0.5-2.5 mg/3 mL nebulizer solution 3 ML 4 TIMES DAILY 0 Active triamcinolone (KENALOG) 0.1 % cream apply bid to affected areas 0 Active hydroCHLOROthi azide (HYDRODIURIL) 25 mg tablet 1 TABLET DAILY 0 Active metoprolol succinate (TOPROL-XL) 100 mg 24 hr tablet 1 TABLET DAILY 0 Active UNDERPADS MISC use for bed at night for incontinence 9 Active docusate sodium (STOOL SOFTENER ORAL) None Entered Ac tive albuterol HFA (PROAIR HFA ; PROVENTIL HFA ; VENTOLIN HFA) 90 mcg/actuation inhaler Inhale 2 puffs by mouth every 4 (four) hours if needed. Active clotrimazole-b etamethasone (LOTRISONE) 1-0.05 % cream apply to affected area bid Active fluticasone-sa lmeterol (Advair Diskus) 250-50 mcg/dose diskus inhaler 1 PUFF BID Acti ve loratadine (Claritin) 10 mg tablet 1 po [...] incontinence 03/29/2014 Overview (03/27/2024): Darline. Changed to [place] Panic attacks 03/29/2014 Overview (03/27/2024): Sees psych [...] Asthma 08/19/2005 Depressive disorder 08/19/2005 Overview (03/27/2024): [facility] wellbut[facility],remerenon,seroquel Encounters Date Type Department Care Team Description 06/20/2024 2:45 PM EST Office Visit Orthopedic Surgery [place] [address] [phone] Nolberto Cruz DPM Acquired hammer toe of right foot (Primary Dx); Dermatophytosis of nail; Hx of BKA, left (CMS/HCC); Type II diabetes mellitus with peripheral circulatory disorder (CMS/HCC); Corns and callosities; Diabetic mononeuropathy simplex (CMS/HCC) 05/14/2024 Telephone Orthopedic Surgery [facility] [address] [phone] Nolberto Cruz DPM medication 05/10/2024 1:30 PM EST Consult Orthopedic Surgery [facility] [address] [phone] Nolberto Cruz DPM Dermatophytosis of nail (Primary Dx); Hx of BKA, left (CMS/HCC); Type II diabetes mellitus with peripheral circulatory disorder ([facility]/HCC); Diabetic mononeuropathy simplex ([facility]/HCC); Corns and callosities from Last 3 Months [...] Date Site/Laterality Comments ENDOMETRIAL ABLATION 2006 PROCEDURE: MI ENDOMETRIAL ABLTJ THERMAL W/O HYSTEROSCOPIC GUID; COMMENT: Whit OTHER SURGICAL HISTORY 2011 Left PROCEDURE: HISTORICAL BELOW KNEE AMP; COMMENT: vascular problems COLONOSCOPY 08/20/2008 PROCEDURE: HISTORICAL COLONOSCOPY; COMMENT: normal TUBAL LIGATION PROCEDURE: HISTORICAL TUBAL LIGATION CARPAL TUNNEL RELEASE 2021 PROCEDURE: MI NEUROPLASTY &/TRANSPOS MEDIAN NRV CARPAL TUNNE Medical History Medical History Date Comments 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) DX:Arterial embolism and thr ombosis of lower extremity (HCC) Left hip pain DX:Left hip pain Amenorrhea DX:Amenorrhea Chronic abdominal pain DX:Chroni c abdominal pain Asthma DX:Asthma Obesity DX:Obesity Amputation of leg (CMS/HCC) DX:A mputation of leg ([facility]) Incontinence DX:Incontinence Otitis media DX:Otitis media Pelvic pain DX:Pelvic pain Left shoulder pain DX:Left shoul krystle pain Sleep apnea DX:Sleep apnea; COMMENT: CPAP Historical Medical DX 2004 DX:HTN; CO MMENT: Metropolol and Buspar Rotator cuff tear 05/18/2014 DX:Rotator cuf f tear; COMMENT: Chronic anterior/superior tear, managed medically Carpal tunnel syndrome 05/18/2014 DX:Carpal tunnel syndrome; COMMENT: left History of leg amputation (CMS/HCC) 03/18/2014 DX:History of leg amputation ([facility]); COMMENT: BKA 08/10/11 (leg not specified) History of pulmonary embolism 03/18/2014 DX :History of pulmonary embolism; COMMENT: 2011 MUSA (obstructive sleep apnea) 03/18/2014 DX :MUSA (obstructive sleep apnea) Impaired fasting glucose 03/18/2014 DX:Impa ired fasting glucose Lumbosacral spondylosis with out myelopathy 03/18/2014 DX:Lumbosacral spondylosis w ithout myelopathy Eczema 03/18/2014 DX:Eczema Morbid obesity (CMS/HCC) 03/18/2014 DX:Morb id obesity ([facility]); COMMENT: BMI 43.0 on 02/07/14 Hypertension DX:Hypertension Type 2 diabetes mellitus wit hout complications (CMS/HCC) DX:Type 2 diabetes mellitus without complications ([facility]) Diabetic gastroparesis (CMS/HCC) 08/25/2022 DX:Diabetic gastroparesis ([facility]) Family History Medical History Relation Name [...] on file Sexual Orientation Not on file Obstetrics History Last Filed [...] Mass Index 36.57 06/20/2024 1:38 PM EST Plan of Treatment Upcoming Encounters Date Type Department Care Team (Late st Contact Info) Description 08/07/2024 2:30 PM EDT Office Visit Obstetrics and Gynecology - [facility] [address] [place] [address] Tony Matt, CNM [address] [place] [address] 09/19/2024 2:00 PM EDT Office Visit Orthopedic Surgery - [place] [address] [phone] Nolberto Cruz, DPM [address] [address] Health Maintenance Due Date Last Done Comments Diabetes: Annual GFR (Glomerular Filtration Rate) 1962 Diabetes: Annual Foot Exam 1972 Diabetes: Annual Retina Eye Exam 1972 Pneumococcal Vaccine: 50+ Years (2 of 2 - PCV) 04/29/2015 04/29/2014 Pneumococcal Vaccine: Pediatrics (0 to 5 Years) [...] patient's age to complete this topic Meningococcal B Vacine Aged Out No lo nger eligible based on patient's age to complete [...] screening mammogram for malignant neoplasm of breast HPV Routine 10/02/2020 URINE ALBUMIN CREATININE RATIO Routine 02/25/2017 HEMOGLOBIN [facility] Department [address] [place] [address] [id number] Patient: ??COLON,MARIBELL ?/Age/Sex: 1960 - 60 - F Unit#: ??[id number] ? Location/Status: ??SPDIMAM/REG CLI ? Mnemonic/Ordering Site: [...] MLO projection. 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 TISSUE DENSITY: a. The breasts [...] Routine screening mammogram BILATERAL in 1 year. [address]573, [id number] 3342F, 7025F Dictating Physician: ??BONNIE OSUNA MD Electronically Signed by: ??BONNIE OSUNA MD Dic Date/Time: ??10/21/20 1146 Sign date/Time: ??10/21/20 1147 Procedure Note Bonnie Osuna MD - 04/27/2022 [facility] Diagnostic Imaging Department [address] [place], [place] [id number] Patient: MARIBELL TAYLOR /Age/Sex: 1960 - 60 - F Unit#: [id number] Location/Status: SPDIMAM/REG CLI Mnemonic/Ordering Site: [facility] Ordering Physician: TONY MATT CNM [facility] Screening Digital - 10/21/20 - 1120 EXAM: [facility] Screening Digital EXAM DATE AND TIME: 10/21/2020 11:22 AM HISTORY: Screening. COMPARISON: 08/22/18, 08/18/17, 07/15/16, 06/05/15 TECHNIQUE: CC and MLO views of both breasts were obtained using fullfield digital mammography. Bilateral digital breast tomosynthesis was performedin the MLO projection. 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 TISSUE DENSITY: a. The breasts are [...] Routine screening mammogram BILATERAL in 1 year. [address]862, [id number] 3342F, 7025F Dictating Physician: BONNIE OSUNA MD Electronically Signed by: BONNIE OSUNA MD Dic Date/Time: 10/21/20 1146 Sign date/Time: 10/21/20 1147 Tony Matt CNM [facility] BI PROCEDURES Final Resul t * Hm Cervical Cancer Screening: HPV (10/02/2020) [facility] Cervical Cancer Screening: HPV abstracted, negative Result [facility] Provider HEALTH MAINTENANCE Final Result * Urine Albumin Creatinine Ratio (02/25/2017) [facility] Urine Albumin Creatinine Ratio abstracted Result [facility] Provider HEALTH MAINTENANCE Final Result * (ABNORMAL) Hemoglobin A1c (02/25/2017) [facility] Hemoglobin A1C 7.4(A) 4.0 - 6.0 % Blood Venous blood specimen / Unknown Result [facility] Provider LAB BLOOD ORDERABLES Jessy l Result * (ABNORMAL) Lipid panel (02/25/2017) [facility] LDL/HDL Ratio 4 0 - 4 Triglycerides 280(A) 0 - 150 mg/dL Cholesterol 110 0 - 200 mg/dL HDL 29(A) >=40 mg/dL LDL Cholesterol 25 0 - 100 mg/dL Blood Venous blood specimen / Unknown Result [facility] Provider LAB BLOOD ORDERABLES Jessy l Result * Hepatitis C Screening (01/02/2016) [facility] Hepatitis C Screening abstracted Result [facility] Provider HEALTH MAINTENANCE Final Result * Depression Screening (08/19/2005) [facility] Depression Screening abstracted Result [facility] Provider HEALTH MAINTENANCE Final Result from Last 3 Months or Most Recently Relevant to Health Maintenance Insurance [facility] [employer] Care Teams Field Operations Technician Relationship Specialty Start Date End Date Samuel Hilario MD [address] [place] [address] PCP - General Internal Medicine 03/19/20
--- OUTSIDE RECORDS SUMMARY | 2024-07-05 12:50 | XMS_ITS | Clinical Summary ---
Author Organization [facility] Address [address] [facility] [address] [place] [address] Phone Care Team Providers Care Night Filler Name Role Phone Samuel Hilario MD Primary Care Provider [phone] Allergies Active Allergy Reactions Criticality Noted Date [...] DAY NEEDED 1 Active Comfort EZ Pen Shirley 32G X 4 MM [facility] 2 Active Easy Comfort Lancets [facility] 2 Active gemfibrozil (LOPID) 600 MG tablet [...] incontinence 03/29/2014 Overview (09/06/2022): Darline. Changed to [place] Panic attack 03/29/2014 Overview (09/06/2022): Sees psych [...] is her plastic surgeon just finished reconstruciton Encounters Date Type Department Care Team Description 06/09/2024 Orders Only [facility] [address] [phone] Racheal Wood ARNP Stage 3a chronic kidney disease (HCC); Hypertension; Persistent proteinuria from Last 3 Months Family History Medical History Relation Comments Diabetes [...] Care Team (Late st Contact Info) Description 07/07/2024 Orders Only [facility] [place] [id number] [phone] Racheal Wood ARNP [address] [phone] Stage 3a chronic kidney disease (HCC); Hypertension 08/01/2024 11:00 AM EDT Office Visit [facility] [address] [phone] Racheal Wood ARNP [address] [facility] [address] [place] [address] Health Maintenance Due Date Last Done Comments [...] PM EST) Hemoglobin A1C 9.2(H) (4.0-5.6) % [facility] Comment: MONITORING: In known diabetic patients, hemoglobin A1c targets should be discussed with health care provider. DIAGNOSTIC USE: ??The [place] [employer] (ADA) and the World Health [...] Supplement 1 Testing performed or reported by [facility], a Service of [facility], [address] [place] [address] Bertin Bethea MD, [employer] [facility]# [id number] Blood (Blood, Venous) 06/17/2021 4:28 PM EST 06/17/2021 4:29 PM EST Feroz Lakhani MD LAB BLOOD ORDERABLES Final Re sult [facility] from Last 3 Months or Most Recently Relevant to Health Maintenance Insurance [place] Care Teams Night Filler Relationship Specialty Start Date End Date Samuel Hilario MD [address] [place] [address] PCP - General Internal Medicine 05/26/21
--- OUTSIDE RECORDS SUMMARY | 2024-07-05 12:50 | XMS_ITS | Data Portability ---
Author Organization [facility], Allergy Address [address] [address] Care Team Providers Care Consulting Psychiatrist Name Role Phone ELLA MICHAEL Primary Care Provider Assessment No assessment recorded. Plan of Treatment Reminders Order Date Submit Date Provider Last Modified By Organization Details Last Modified Time Details Appointments Hearing Test 2024 03:00P M Hearing Test Not available Not available Not available Establis hed 15 2024 03:30P M DURAN NELSON MD Not available Not available Not available Lab None recorded . Referral None recorded . Procedures None recorded . Surgeries None recorded . Imaging MRI, brain, w/wo contrast - prefers [facility] eld 2023 024 david [facility] ([facility]), [address] [place], [address], 01/03/2024 14:20:34 Medication Orders clotrima zole-bet amethaso ne 1 %-0.05 % topical cream 2023 024 [facility] [place], [place] - [id number], [address] [place], [address], 02/29/2024 15:08:30 Patient TargetsNo targets recorded. Patient InstructionsNo instructions recorded. Reason for Referral None Reported. Results Created Date Observation Date Name Description Value Unit Range Abnormal Flag Note LastModifiedBy Organization Detail LastModifiedTime 12/13/19 24 12/12/2023 MRI, brain + brain stem, w/wo contr ast [facility] Access ion Number : [id number] Patien t Name: Maribell Sweeney Record Number : [id number] Date of : 1960 Date of Exam: 2023 Referr ing Physic kellen: Duran Estes [facility] [address] [place] [address] Exam: MR Brain (C-/C+ ) CPT 49538 Room Descri ption: [facility] Verio 3.0T MR Brain (C-/C+ ) CPT 61082 INDICA TION / CLINIC AL QUESTI ON: [...] mastoi d effusi ons are presen t. Nasoph arynge al contou r is symmet drew. BONES: [...] reflec t acute sinusi tis in the approp riate clinic al settin g. Correl ate with patien t's sympto ms. 4. Mild to modera te T2/FLA IR hyperi ntense foci in the white matter , nonspe cific but most common ly reflec ting chroni c small vessel diseas e. Electr onical ly Signed By: Abdulaziz Parmar MD [facility] ([facility]) [address] [facility] [address], [place], [address], 12/31/2023 04:57:08 12/28/1907/18/2023 imagi ng/di agnos tic resul t No observ ation record ed. [email or web address] Not Available 03:26:08 12/28/19 24 07/18/2023 imagi ng/di agnos tic resul t No observ ation record ed. [email or web address] Not Available 03:26:11 12/28/1907/19/2023 imagi ng/di agnos tic resul t No observ ation record ed. [email or web address] Not Available 03:26:12 12/28/19 24 08/04/2020 imagi ng/di agnos tic resul t No observ ation record ed. [email or web address] Not Available 03:26:14 12/28/19 24 04/08/2021 imagi ng/di agnos tic resul t No observ ation record ed. [email or web address] Not Available 03:26:50 06/14/19 25 05/30/2024 MRI, cervi elina spine , w/o contr ast No observ ation record ed. [facility] [address] [facility] [address], [place], [address], 06/14/2024 10:19:22 06/20/19 25 05/30/2024 MRI, cervi elina spine , w/o contr ast No observ ation record ed. [email or web address] Not Available 2024 16:10:50 Result Notes None recorded. Problems Name Problem SNOMED Code Status Onset Date Resolution Date Notes Provider Name and Address Organization Details Recorded Time Otalgia of left ear 6772704806 Active 2020 Otalgia, left ear; Note: Date Diagnosed : 04/08/2021 3:18 PM (H92.02) Not Available [facility] 4 02:15:47 Diffuse otitis externa 77768862 Active 2020 Diffuse otitis externa, left ear; Note: Date Diagnosed : 07/17/2020 5:26 PM (H60.312) Note: Date Diagnosed : 07/17/2020 5:26 PM (H60.312) Not Available [facility] 4 00:49:08 Pain of left temporoma ndibular joint 88148268531 236542 Active 2020 Arthralgi a of left temporoma ndibular joint; Note: Date Diagnosed : 04/08/2021 3:18 PM (M26.622) Not Available [facility] 4 02:15:35 Tinnitus of left ear 88630124335 06 Active 2020 Tinnitus, left ear; Note: Date Diagnosed : 04/08/2021 3:18 PM (H93.12) Not Available [facility] 4 02:13:36 Disorder of nasal sinus 2478809 Active 2019 Unspecifi ed disorder of nose and nasal sinuses; Note: Date Diagnosed : 12/11/2019 7:07 PM (J34.9) Not Available [facility] 4 02:14:50 Disorder of the nose 13019616 Active 2019 Unspecifi ed disorder of nose and nasal sinuses; Note: Date Diagnosed : 12/11/2019 7:07 PM (J34.9) Not Available [facility] 4 02:14:50 Dysphagia 18414135 Active 2017 Dysphagia , unspecifi ed; Note: Date Diagnosed : 10/26/2017 3:35 PM (R13.10) Not Available [facility] 4 02:15:17 Acute maxillary sinusitis 78197200 Active 2019 Acute maxillary sinusitis , unspecifi ed; Note: Date Diagnosed : 12/11/2019 7:07 PM (J01.00) Not Available [facility] 4 02:13:26 Itching of skin 331957005 Active 2019 Pruritus, unspecifi ed; Note: Date Diagnosed : 12/17/2019 9:41 AM (L29.9) Not Available [facility] 4 02:15:04 Gastroeso phageal reflux disease without esophagit is 440007827 Active 2017 Gastro-es ophageal reflux disease without esophagit is; Note: Date Diagnosed : 10/26/2017 3:36 PM (K21.9) Not Available [facility] 4 02:13:57 Sensorine ural hearing loss 46384754 Active 2020 Sensorine ural hearing loss, unilatera l, left ear, with unrestric trisha hearing on the contralat eral side; Note: Date Diagnosed : 08/04/2020 11:03 AM (H90.42) Not Available [facility] 4 02:14:29 Trigemina l neuralgia 91847785 Active 2023 DURAN NELSON MD [address] [place] [address], [place], [address] , [facility] - [facility] 4 18:40:58 Localized masticato ry muscle soreness 323031578 Active 2023 Myalgia of masticati on muscle; Note: Date Diagnosed : 07/26/2023 2:53 PM (M79.11) Not Available [facility] 02:15:11 Type 2 diabetes mellitus without complicat ion 418627056 Active 2023 Type 2 diabetes mellitus without complicat ions; Note: Date Diagnosed : 06/13/2023 1:31 PM (E11.9) Not Available [facility] 02:15:17 Problem Notes None recorded. Procedures Surgical History None recorded. Imaging Results Imaging Date Name Status [facility]Modified by [facility] Details LastModified Time 12/12/2023 MRI, brain + brain stem, w/wo contrast completed [facility] ([facility]) [address], [place], [address], 12/31/2023 04:57:08 07/18/2023 imaging/diagn ostic result completed Information not available 12/28/2023 03:26:08 07/18/2023 imaging/diagn ostic result completed Information not available 12/28/2023 03:26:11 07/19/2023 imaging/diagn ostic result completed Information not available 12/28/2023 03:26:12 08/04/2020 imaging/diagn ostic result completed Information not available 12/28/2023 03:26:14 04/08/2021 imaging/diagn ostic result completed Information not available 12/28/2023 03:26:50 05/30/2024 MRI, cervical spine, w/o contrast completed [facility] ([facility]) [address] [facility] [address], [place], [address], 06/14/2024 10:19:22 05/30/2024 MRI, cervical spine, w/o contrast completed [email or web address] Information not available 06/20/2024 16:10:50 Procedure Notes None recorded. Medical Equipment None Reported. Allergies Allergen ID Allergen Name Allergen Category Reaction Reaction Severity Criticality Documentation Date Start Date Code Code System Note Provider Name and Address Organization Details Recorded Time 26654 aspirin medicatio n other Not available Not available 09/20/2023 1191 RxNorm React ion: unkno wn, unspe cifie d;; Not Available [facility] 4 00:49:02 22548 acetamino phen / oxycodone medicatio n other Not available Not available 09/20/2023 38397 3 RxNorm React ion: unkno wn, unspe cifie d;; Not Available [facility] 4 00:49:48 66949 naproxen medicatio n other Not available Not available 09/20/2023 7258 RxNorm React ion: unkno wn, unspe cifie d;; Not Available [facility] 4 00:49:48 Medications Name Sig Start Date Stop Date Status Note LastModified by Organization Details LastModified Time d3 super strength 50 mcg (2000 ut) caps active Not Available Not Available Not Available d3 50 mcg (2000 ut) caps active Not Available Not Available [...] a day 06/14 completed Medicati on ID: 984883 D uration Value: 10 Brand Name: ciproflo [...] mg tablet 2017 active Medicati on ID: 712069 D uration Value: 30 Brand Name: cyprohep tadine S end Method: E-Prescr ibed Sub s Allowed: subs OK Speci al Instruct ion: TAKE ONE TABLET BY MOUTH 3 (THREE) TIMES A DAY NEEDED FOR ITCH Med ication enericNa me: cyprohep tadine Not Available Not [...] topical solution 01/11 completed Medicati on ID: 683670 D uration Value: 14 Prescri bed By Name: AZUCENA Andrade nd Name: clotrima krish Sen d Method: E-Prescr ibed Sub s Allowed: [...] small amount 2020 active Medicati on ID: 843114 D uration Value: 7 Prescri bed By Name: AZUCENA Andrade nd Name: mupiroci n Send Method: E-Prescr ibed Sub s Allowed: [...] (THREE) TIMES A DAY FOR 7 DAYS 09/05 /2024 completed Not Available Not Available Not Available TobraDex 0.3 %-0.1 % eye drops,randy pension 01/11 completed Medicati on ID: 458994 Aquilino william d By Name: AZUCENA Andrade nd Name: [...] 5 drop 2020 active Medicati on ID: 553319 D uration Value: 30 Prescri bed By [...] by mouth 10/19 completed Medicati on ID: 992239 D uration Value: 30 Prescri bed By Name: Paula KrugerVINAY nd Name: omeprazo le Send Method: E-Prescr ibed Sub s Allowed: subs OK Speci al Instruct ion: Take 1 tablet by mouth every day before a meal Med icationG enericNa me: omeprazo le Medic ation ID: [id number] D uration Value: 30 Prescri bed By [...] Available No t Available Comfort EZ Pen Colerain 32 gauge x 5/32 USE TO INJECT [...] both nostrils 2019 active Medicati on ID: 923517 D uration Value: 30 Prescri bed By [...] Available No t Available FreeStyle Antonio 2 Mcdade USE DIRECTED active Not Available Not Available [...] Updated DateTime 12/27/2023 157.48 cm 35.5 kg/m2 00362.92 g Nyla Rowland MD - [facility] 12/27/2023 13:07:29 Date Recorded Body height Body mass index (BMI) Body weight Provider Name and Address Organization Details Last Updated DateTime 01/12/2024 157.48 cm 35.5 kg/m2 35863.92 g Nyla Rowland [place] - [facility] 01/12/2024 13:05:16 Date Recorded Body height Body mass index (BMI) Body weight Provider Name and Address Organization Details Last Updated DateTime 06/14/2024 157.48 cm 36.9 kg/m2 06747.66 g Nyla Rowland [place] - [facility] 06/14/2024 09:18:50 Date Recorded Body height Body mass index (BMI) Body weight Provider Name and Address Organization Details Last Updated DateTime 10/20/2023 157.48 cm 38.2 kg/m2 56829.81 g Nyla Rowland MD - [facility] [...] Note [id number] DURAN NELSON MD [facility] on [address] [place] [address] 10/20/2023 13:04:44 10/20/2023 14:59:17 Otalgia of left ear 9969671910 H92.02 63 yo F presents for follow up of her left ear. She is here for scheduled cerumen removal, but she is concerned about persistent pain. She was seen in [place] at the end of January and had [...] her midface. I have ordered MRI in anticipati on of her neurology visit. Trigeminal neuralgia 316 21141 G50.0 [id number] DURAN NELSON MD [facility] on [address] [place] [address] 12/27/2023 13:00:52 12/27/2023 13:42:13 Diffuse otitis externa 17063741 H60.312 Otalgia of left ear 1010 160019 H92.02 63 yo F presents for follow up of her left ear. She is here for scheduled cerumen removal, but she is concerned about persistent pain. She was seen in [place] at the end of January and had [...] Lotrisone into the canal. Follow-up 2 weeks. [id number] DURAN NELSON MD [facility] on [address] [place] [address], [place] [address] 01/12/2024 12:56:02 01/12/2024 14:21:07 Otalgia of left ear 2214118430 H92.02 63 yo F presents for follow up of her left ear. Lotrisone is gone. No infection. Middle ear aerated. she can continue the vinegar drops for maintenanc e as lotrisone sparingly to the EAC meatus. Follow up three months for reassessme nt and cleaning. [id number] DURAN NELSON MD [facility] on [address] [place] [address], [place] [address] 06/14/2024 09:03:19 06/14/2024 09:30:18 Otalgia of left ear 8994140071 H92.02 63 yo F presents for follow [...] Yost Member ID Guarantor Name 10/20/2023 1 [facility] [id number] Maribell H Colon [id number] 1 Maribell H Colon 12/27/2023 1 [facility] [id number] Maribell H Colon [id number] 1 Maribell H Colon 01/12/2024 1 [facility] [id number] Maribell Blackwell Colon [id number] 1 Maribell Blackwell Colon 06/14/2024 1 [facility] [id number] Maribell Blackwell Colon [id number] 1 Maribell Blackwell Colon Notes Date Note Type Note Provider Name and Address Organization Details Recorded Time 10/20/2023 text/html 63 yo F presents for follow up of her left ear. She is here for scheduled cerumen removal, but she is concerned about persistent pain. She was seen in [place] at the end of January and had [...] a CT scan of the neck at [place] which did not show any sign of [...] mouth to to tightness DURAN NELSON MD [address] [place] [address], [place], [address], [place] - [facility] 10/30/2023 18:46:54 12/27/2023 text/html 63-year-old luis carlos bull presents today for follow-up and reassessment of her ear. PV:63 yo F presents for follow up of her left ear. She is here for scheduled cerumen removal, but she is concerned about persistent pain. She was seen in [place] at the end of January and had [...] a CT scan of the neck at [place] which did not show any sign of [...] mouth to to tightness DURAN NELSON MD [address] [place] [address], [place], [address], [place] - [facility] 01/03/2024 08:17:01 01/12/2024 text/html 63 yo F presents for follow up after lotrisone injection on the left. She does feel improvement in left otalgia. \ She was seen in [place] at the end of January and had [...] on the left. DURAN NELSON MD 100 [facility],[address], [address], [place] - [facility] 01/18/2024 06:10:12 06/14/2024 text/html Oxcarbazepine helping with headaches. Since [...] Most recent AIC 7.4. DURAN NELSON MD 100 [facility],[address], [address], [place] - [facility] 06/14/2024 09:30:26 OBGyn Episode No OBEpisode recorded.
--- OUTSIDE RECORDS SUMMARY | 2024-07-05 12:50 | XMS_ITS | Encounter Summary ---
Author Organization [facility] Address [address] [address] Phone Care Team Providers Care Senior Investment Manager Name Role Phone Samuel Hilario MD Primary Care Provider [phone] Encounter Details Date Type Department Care Team ([facility] Contact Info) Description 06/09/2024 Orders Only [facility] [address] [place] [phone] Racheal Wood ARNP [address] [address] Stage 3a chronic kidney disease (HCC); Hypertension; Persistent proteinuria Social History Tobacco Use Types Packs/Day Years Used Date Smoking Tobacco: Former Cigarettes Smokeless Tobacco: Never Alcohol Use Standard Drinks/Week Comments Not Currently 0 (1 standard drink = 0.6 oz pur e alcohol) Comments Unknown Sex and Gender Information Value Date Recorded Sex Assigned at Not on file Legal Sex Female 9:26 AM EST Gender Identity Not on file Sexual Orientation Not on file documented as of this encounter Plan of Treatment Upcoming Encounters Date Type Department Care Team (Late Contact Info) Description 07/07/2024 Orders Only [facility] [address] [address] Racheal Wood ARNP [address] [address] Stage 3a chronic kidney disease (HCC); Hypertension 08/01/2024 11:00 AM EDT Office Visit [facility] [address] [address] Racheal Wood ARNP [address] [address] documented as of this encounter Visit Diagnoses Diagnosis Stage 3a chronic kidney disease (HCC) Hypertension Persistent proteinuria Stage 3a chronic kidney disease (HCC) Hypertension documented in this encounter Care Teams Senior Investment Manager Relationship Specialty Start Date End Date Samuel Hilario MD [address] [place] [id number] PCP - General Internal Medicine 05/26/21 documented as of this encounter
--- OUTSIDE RECORDS SUMMARY | 2024-07-05 12:50 | XMS_ITS ---
Author Organization [facility] Address [address] [place] [address] Care Team Providers Care Scientific Glass Blower Name Role Phone ELLA MICHAEL Primary Care Provider [phone] REASON FOR VISIT FYI. Encounters Encounter Location Date Provider Diagnosis [facility] [address] [address] 06/21/2024 ELLA MICHAEL Plan Of Treatment Next Appt Details Provider Name:ELLA MICHAEL , 11/26/2024 10:00:00 AM, [address] [address], [place], [address], Progress Notes * ZOIE SWEENEY HDOB: 3 (63 yo F)Acc No.[id number]:06/21/2024 Patient:?ZOIE SWEENEY :1960???Age:63 Y???Sex:Female Address:[address] [place] [address] * true * Date:? Generated for Printi daniel/Nataliia/eTransmitting on:?07/05/2024 12:50 PM EST
[2024-07-05 13:00] LABS: Bacteria Urine None Seen (None Seen); Hyaline Casts Urine 0-2 /LPF (0-2); RBC Urine 0-2 /HPF (0-2); Squamous Epithelial Cell Urine 0-2 /HPF (0-2)
== END 2024-07-05 10:48 | disposition home or self-care (01) ==
LOC: HO.LAB 10:47
PROVIDERS: PCP Hospitalist; Visit Provider Nurse Practitioner Family
DX: N39.41 Urge incontinence (principal); N31.8 Other neuromuscular dysfunction of bladder; R39.9 Unspecified symptoms and signs involving the genitourinary system; R32 Unspecified urinary incontinence
CPT/HCPCS: 81001; 87086

== ENCOUNTER 2024-07-25 09:44 | Outpatient (REF) | payer OTHER, SELFPAY ==
--- NOTE | 2024-07-25 09:47 | EMG_ITS ---
Chief complaint: Seen by Neurology in ED for left-sided facial/temporal headache. She also has history of diabetes with neuropathy, left BKA, left sided Carpal Tunnel Syndrome years ago, left rotator cuff surgery and tendinitis surgery on left wrist. Reason for referral: Evaluate for radiculopathy Referred by: Kassy Bai NP Procedure done: Bilateral upper extremities NCS/EMG Precautions and/or limitations: She is on Eliquis which is a contraindication to needle EMG to paraspinals. The limb temperature was monitored continuously and remained between 32-36 degrees C during the performance of the NCS. Ulnar motor NCS was performed with moderate elbow flexion between 70-90 degrees, with across-elbow distance of 10 cm. Nerve Conduction Studies Anti Sensory Summary Table ?Stim Site NR Onset (ms) Norm Onset (ms) Peak (ms) Norm Peak (ms) O-P Amp (?V) Norm O-P Amp Site1 Site2 Delta-0 (ms) Dist (cm) Lincoln (m/s) Norm Lincoln (m/s) Left Median Anti Sensory (2nd Digit) Wrist ? 3.3 4.0 <3.6 12.7 >10 Wrist 2nd Digit 3.3 14.0 42 Right Median Anti Sensory (2nd Digit) Wrist ? 3.0 4.0 <3.6 16.2 >10 Wrist 2nd Digit 3.0 14.0 47 Left Radial Anti Sensory (Thumb) Forearm ? 2.0 2.5 <3.1 14.4 Forearm Thumb 2.0 0.0 Right Radial Anti Sensory (Thumb) Forearm ? 1.8 2.3 <3.1 5.6 Forearm Thumb 1.8 0.0 Left Ulnar Anti Sensory (5th Digit) Wrist ? 2.8 3.7 <3.7 6.9 >15.0 Wrist 5th Digit 2.8 14.0 50 Right Ulnar Anti Sensory (5th Digit) Wrist ? 2.5 3.6 <3.7 15.3 >15.0 Wrist 5th Digit 2.5 24.0 96 Motor Summary Table ?Stim Site NR Onset (ms) Norm Onset (ms) O-P Amp (mV) Norm O-P Amp iAmp (mV) Amp (1st) (%) Site1 Site2 Delta-0 (ms) Dist (cm) Lincoln (m/s) Norm Lincoln (m/s) Left Median Motor (Abd Poll Brev) Wrist ? 4.1 <3.9 8.6 >4.5 10.4 100.0 Elbow Wrist 4.0 17.0 43 >45 Elbow ? 8.1 6.8 8.4 79.1 Right Median Motor (Abd Poll Brev) Wrist ? 3.8 <3.9 7.2 >4.5 9.4 100.0 Elbow Wrist 3.8 18.0 47 >45 Elbow ? 7.6 6.6 8.6 91.7 Left Ulnar Motor (Abd Dig Minimi) Wrist ? 3.3 <3.0 6.5 >5 7.8 100.0 B Elbow Wrist 3.1 16.0 52 >45 B Elbow ? 6.4 5.8 7.1 89.2 A Elbow B Elbow 1.3 10.0 77 >45 A Elbow ? 7.7 5.4 7.1 83.1 Right Ulnar Motor (Abd Dig Minimi) Wrist ? 3.3 <3.0 7.7 >5 9.0 100.0 B Elbow Wrist 3.2 16.0 50 >45 B Elbow ? 6.5 6.9 8.4 89.6 A Elbow B Elbow 1.7 10.0 59 >45 A Elbow ? 8.2 6.0 7.4 77.9 EMG ?Side Muscle Nerve Root Ins Act Fibs Psw Amp Dur Poly Recrt Int Pat Comment Right 1stDorInt Ulnar C8-T1 Incr 1+ 1+ Nml Nml 0 Nml Complete Right FlexCarRad Median C6-7 Nml Nml Nml Nml Nml 0 Nml Complete Right Biceps Musculocut C5-6 Nml Nml Nml Nml Nml 0 Nml Complete Right Triceps Radial C6-7-8 Nml Nml Nml Nml Nml 0 Nml Complete Right Deltoid Axillary C5-6 Nml Nml Nml Nml Nml 0 Nml Complete Left 1stDorInt Ulnar C8-T1 Nml Nml Nml Nml Nml 0 Nml Complete Left FlexCarRad Median C6-7 Nml Nml Nml Nml Nml 0 Nml Complete Left Biceps Musculocut C5-6 Nml Nml Nml Nml Nml 0 Nml Complete Left Triceps Radial C6-7-8 Nml Nml Nml Nml Nml 0 Nml Complete Left Deltoid Axillary C5-6 Nml Nml Nml Nml Nml 0 Nml Complete Left ExtIndicis Radial (Post Int) C7-8 Nml Nml Nml Nml Nml 0 Nml Complete FINDINGS: Left median motor nerve showed prolonged distal latency, normal amplitude and slow conduction velocity. Bilateral ulnar motor nerves showed prolonged distal latency, normal amplitude and normal conduction velocity. No conduction block across elbow. Bilateral median sensory nerves showed prolonged peak latency. Left ulnar sensory nerve showed normal peak latency but small amplitude. All other nerves tested were within normal. Concentric needle EMG was performed in selected muscles of the bilateral upper extremities. Study revealed signs of electric abnormalities as shown in the table above. Right FDI showed increased insertional activity, PSWs and fibrillations. No other C8 innervated muscle showed denervation. IMPRESSION: 1. This is an abnormal study. 2. There is electrodiagnostic evidence for left moderate-severe and right mild median neuropathy at the wrist, consistent with Carpal Tunnel Syndrome. 3. There are electrodiagnostic findings suggestive of chronic bilateral ulnar neuropathy. Interpret such evidence in the setting of diabetic neuropathy. 4. There is no electrodiagnostic evidence for brachial plexopathy or cervical radiculopathy. CLINICAL COMMENT: Interpret above results in the setting of diabetic neuropathy. Thank you for your kind referral. Anita Acuna MD, GINA Board Certified, [place] [employer] and Rehabilitation (ABPMR) Board Certified, [place] Board of Electrodiagnostic Medicine (ABEM) CODIN [phone] MTDD
--- OUTSIDE RECORDS SUMMARY | 2024-07-25 10:53 | XMS_ITS | Encounter Summary ---
Author Organization [facility] Address [address] [place] [phone] Phone Care Team Providers Care Shellacker Name Role Phone Samuel Hilario MD Primary Care Provider [phone] Encounter Details Date Type Department Care Team ([facility] Contact Info) Description 07/07/2024 Orders Only [facility] [address] [place] [phone] Racheal Wood ARNP [address] [phone] Stage 3a chronic kidney disease (HCC); Hypertension Social History Tobacco Use Types Packs/Day Years [...] Upcoming Encounters Date Type Department Care Team ([facility] Contact Info) Description 08/01/2024 11:00 AM EDT Office Visit [facility] [address] [phone] Racheal Wood ARNP [address] [phone] documented as of this encounter Visit Diagnoses Diagnosis Stage 3a chronic kidney disease (HCC) Hypertension documented in this encounter Care Teams Shellacker Relationship Specialty Start Date End Date Samuel Hilario MD [address] [place] [address] PCP - General Internal Medicine 05/26/21 documented as of this encounter
--- OUTSIDE RECORDS SUMMARY | 2024-07-25 10:53 | XMS_ITS ---
Author Organization [facility] Address [address] [address] Care Team Providers Care Power Press Supervisor Name Role Phone ELLA MICHAEL Primary Care Provider REASON FOR VISIT [facility] Urology Referral Encounters Encounter Location Date Provider Diagnosis [facility] [address] [facility] [address] [place] [address] 07/13/2024 ELLA MICHAEL Plan Of Treatment Next Appt Details Provider Name:ELLA MICHAEL , 11/26/2024 10:00:00 AM, [address] [facility] [address], [place], [address], Progress Notes * ZOIE SWEENEY HDOB: 3 (63 yo F)Acc No.[id number]:07/13/2024 Patient:?ZOIE SWEENEY :1960???Age:63 Y???Sex:Female Address:[address] [place] [phone] * true * Date:? Generated for Printi daniel/Nataliia/eTransmitting on:?07/25/2024 10:53 AM EDT
--- OUTSIDE RECORDS SUMMARY | 2024-07-25 10:53 | XMS_ITS | Continuity of Care Document ---
Author Organization [facility] Address [address] [place] [phone]- Care Team Providers Care Wrapper Counter Name Role Phone Samuel Hilario MD Primary Care Physician Encounter [facility] Date(s): 06/14/24 - 07/14/24 [facility] [address] [place] [id number] Encounter Type: Triage Allergies, Adverse Reactions, Alerts Substance Criticality Severity Reaction Reaction Severity Status naproxen hives Active aspirin anaphylactic re action Hives Active gabapentin Active Depakote swelling lips Active Seafood Anaphylactic re action to food anaphylactic reaction shellfish Active Percocet 5/325 ITCHING Activ e Vicodin ITCHING Active Peanuts 1 Active Gold Calero C/O: itching Active 1Peanut butter Immunizations Given and Recorded Vaccine Date Status Refusal Reason SARS-CoV-2(COVID-19)mRNA-LNP vac([id number]) 03/08/24 Given influenza virus vaccine, inactivated 03/08/24 Give n Medications Asmanex HFA 100 mcg/inh inhalation aerosol 2 inhalation = 200 mcg, Inhalation, 2 times a day, rinse mouth and throat after use, # 1 each, 6 Refills, Maintenance, 06/27/24 12:48:00 PM EST, Aerosol, [facility] - [place], [place] - [phone], Replacing Fluticasone, 158, cm, 05/17/24 10:23:00 EST, Height Start Date: 06/27/24 Status: Ordered Quantity: 1.0 Unit: each Repeat number: 7 atorvastatin 10 mg oral tablet 1 tablet = 10 mg, By Mouth, Daily, # 30 tablet, 0 Refills, Maintenance, Do Not Route Start Date: 08/21/17 Status: Ordered Quantity: 30.0 Unit: tablet Repeat number: 1 azelastine 137 mcg/inh (0.1%) nasal spray 2 sprays, Nares, Both, Daily, PRN Other Allergies, # 30 mL, 4 Refills, Maintenance, 03/22/22 1:50:00 PM EST, [facility], [place], [place] - [phone], Partial fill upon patient requestif the prescription [...] Soft Stop, 09/16/20 9:26:00 PM EDT, Tablet, [facility]/pharmacy #[id number], Partial fill upon patient request if [...] Date: 12/18/21 Status: Ordered Repeat number: 1 Freestyle Antonio Monitor See Instructions, # 1 [...] Ordered Repeat number: 1 hydrocortisone/neomycin/polymyxin B otic 1%-0.35%-41437 u/ml suspension INSTILL 4 DROP IN THE [...] 6 Refills, Maintenance, 06/08/23 1:10:00 PM EST, [facility], [place] - [phone], 158, cm, 06/08/23 12:26:00 EST, Height, 99.8, [...] 06/08/23 Status: Ordered Repeat number: 1 metFORMIN 750 mg oral tablet, extended release See Instructions, 1 tablet By Mouth twice daily. 3- day supply, # 60 each, 11 Refills, Maintenance,05/17/24 10:49:00 AM EST, [facility], [place], [place] - [phone], Partial fill upon patient request if the prescription is for a schedule II opioid drug., 158, cm, 05/17/24 10:23:00 EST, Height Start Date: 05/17/24 Status: Ordered Quantity: 60.0 Unit: each Repeat number: 12 metFORMIN 850 mg oral tablet 1 tablet [...] Refills, Maintenance, 09/29/23 2:26:00 PM EDT, [facility], [place], [place] - [phone], Partial fill upon patient request if the [...] 12:24:00 PM EST, Route to Pharmacy Electronically, [id number], [place], [place] - [id number], 158, cm, 11/03/21 9:54:00 EDT, Height, 99.8, kg, 12/18/21 8:59:00 EDT, Dry Weight Start Date: 03/22/22 Status: Ordered Quantity: 1.0 Unit: each Repeat number: 7 Serevent Diskus 50 mcg inhalation powder 1 puffs, Inhalation, Every 12 hours, # 60 Unknown, 0 Refills, Maintenance, 03/22/22 9:01:00 AM EST,[facility], 30, INHALE 1 PUFF BY MOUTH INTO THE lungs EVERY TWELVE HOURS, 158, cm, 11/03/21 9:54:00 EDT, Height, 99.8, kg, 12/18/21 8:59:00 EDT, Dry Weight Start Date: 03/22/22 Status: Ordered Quantity: 60.0 Unit: Unknown Repeat number: 1 triamcinolone 0.025% topical cream 1 application, Topically, 3 times a day, PRN Itch, # 60 Gm, 0 Refills, Maintenance, 09/16/20 9:27:00PM EDT, Cream, [id number], Partial fill upon patient request if the prescription is for a schedule II opioid drug., 1 application Topically 3 times a day,PRN:Itch, 158, cm, 02/11/20 10:02:00 EDT, Height, 116, kg, 07/10/19 7:58:00 EST, Dry Weight Start Date: 09/16/20 Status: Ordered Quantity: 60.0 Unit: g Repeat number: 1 Vitamin D3 2000 intl units oral tablet [...] Care Team Personnel Name: Lacey Lopez Position: [facility] Outreach Member Role: Lifetime Consulting Physician Name: Samuel Hilario MD Position: [facility] Physician - Primary Care Member Role: PCP Address: [address] [facility] [address] [place] [address]- Telecom: Name: Rosa Carney RN Position: [facility] RN Member Role: Primary Care Nurse Name: Coty Steve Position: [facility] Outreach Member Role: Lifetime Consulting Physician Name: Rukhsana Taylor RN Position: [facility] Nurse Member Role: Primary Care Nurse Name: Nata Gottlieb Position: [facility] Outreach Member Role: Lifetime Consulting Physician Name: Juana Ramirez RN Position: [facility] AMB Nurse Member Role: Primary Care Nurse Care Team Related Persons Name: TEJ TAYLOR Name: JUAN TAYLOR Insurance Providers Guarantor name: [facility] Plan Information #: 1 Payer: [employer] Member Number: NA Policy Number: NA Group Number: NA
--- OUTSIDE RECORDS SUMMARY | 2024-07-25 10:54 | XMS_ITS | Data Portability ---
Author Organization [facility], Allergy Address [address] [address] Care Team Providers Care Sql Consultant Name Role Phone ELLA MICHAEL Primary Care [...] Imaging MRI, brain, w/wo contrast - prefers [facility] eld 2023 024 david Benjamin [facility] ([facility]), [address] [place], [address], 01/03/2024 14:20:34 Medication Orders clotrima zole-bet amethaso ne 1 %-0.05 % topical cream 2023 024 [facility] [place], [place] - [id number], [address] [place], [address], 02/29/2024 15:08:30 Patient TargetsNo targets recorded. Patient InstructionsNo instructions recorded. Reason for Referral None Reported. Results Created Date Observation Date Name Description Value Unit Range Abnormal Flag Note LastModifiedBy Organization Detail LastModifiedTime 12/13/19 24 12/12/2023 MRI, brain + brain stem, w/wo contr ast [facility] Access ion Number : [id number] Patien t Name: Maribell Sweeney Record Number : [id number] Date of : 1960 Date of Exam: 2023 Referr ing Physic kellen: Duran Estes [facility] [address] [facility] [place] [address] Exam: MR Brain (C-/C+ ) CPT 02146 Room Descri ption: [facility] Verio 3.0T MR Brain (C-/C+ ) CPT 59849 INDICA TION / CLIN[facility] ON: [...] onical ly Signed By: Abdulaziz Parmar MD [facility] ([facility]) [address] [facility] [address], [place], [address], 12/31/2023 04:57:08 12/28/1907/18/2023 imagi ng/di agnos tic [...] contr ast No observ ation record ed. [facility] [address] [facility] [address], [place], [address], 06/14/2024 10:19:22 06/20/19 25 05/30/2024 MRI, cervi elina spine , w/o contr ast No observ ation record ed. [email or web address] Not Available 2024 16:10:50 Result Notes None recorded. Problems Name Problem SNOMED Code Status Onset Date Resolution Date Notes Provider Name and Address Organization Details Recorded Time Otalgia of left ear 2384983200 Active 2020 Otalgia, left ear; Note: Date Diagnosed : 04/08/2021 3:18 PM (H92.02) Not Available [facility] 4 02:15:47 Diffuse otitis externa 68580701 Active 2020 Diffuse otitis externa, left ear; Note: Date Diagnosed : 07/17/2020 5:26 PM (H60.312) Note: Date Diagnosed : 07/17/2020 5:26 PM (H60.312) Not Available [facility] 4 00:49:08 Pain of left temporoma ndibular joint 37487706947 761808 Active 2020 Arthralgi a of left temporoma ndibular joint; Note: Date Diagnosed : 04/08/2021 3:18 PM (M26.622) Not Available [facility] 4 02:15:35 Tinnitus of left ear 77251194119 06 Active 2020 Tinnitus, left ear; Note: Date Diagnosed : 04/08/2021 3:18 PM (H93.12) Not Available [facility] 4 02:13:36 Disorder of nasal sinus 1869320 Active 2019 Unspecifi ed disorder of nose and nasal sinuses; Note: Date Diagnosed : 12/11/2019 7:07 PM (J34.9) Not Available [facility] 4 02:14:50 Disorder of the nose 87895054 Active 2019 Unspecifi ed disorder of nose and nasal sinuses; Note: Date Diagnosed : 12/11/2019 7:07 PM (J34.9) Not Available [facility] 4 02:14:50 Dysphagia 35286681 Active 2017 Dysphagia , unspecifi ed; Note: Date Diagnosed : 10/26/2017 3:35 PM (R13.10) Not Available [facility] 4 02:15:17 Acute maxillary sinusitis 38406621 Active 2019 Acute maxillary sinusitis , unspecifi ed; Note: Date Diagnosed : 12/11/2019 7:07 PM (J01.00) Not Available [facility] 4 02:13:26 Itching of skin 334540392 Active 2019 Pruritus, unspecifi ed; Note: Date Diagnosed : 12/17/2019 9:41 AM (L29.9) Not Available [facility] 4 02:15:04 Gastroeso phageal reflux disease without esophagit is 730612909 Active 2017 Gastro-es ophageal reflux disease without esophagit is; Note: Date Diagnosed : 10/26/2017 3:36 PM (K21.9) Not Available [facility] 4 02:13:57 Sensorine ural hearing loss 53599632 Active 2020 Sensorine ural hearing loss, unilatera l, left ear, with unrestric trisha hearing on the contralat eral side; Note: Date Diagnosed : 08/04/2020 11:03 AM (H90.42) Not Available [facility] 4 02:14:29 Trigemina l neuralgia 22980627 Active 2023 DURAN NELSON MD [address] [place] [address], [place], [address] , [facility] - [facility] 4 18:40:58 Localized masticato ry muscle soreness 470288033 Active 2023 Myalgia of masticati on muscle; Note: Date Diagnosed : 07/26/2023 2:53 PM (M79.11) Not Available [facility] 02:15:11 Type 2 diabetes mellitus without complicat ion 258727456 Active 2023 Type 2 diabetes mellitus without complicat ions; Note: Date Diagnosed : 06/13/2023 1:31 PM (E11.9) Not Available [facility] 02:15:17 Problem Notes None recorded. Procedures Surgical History None recorded. Imaging Results Imaging Date Name Status LastModified by [facility] Details LastModified Time 12/12/2023 MRI, brain + brain stem, w/wo contrast completed [facility] ([facility]) [address], [place], [address], 12/31/2023 04:57:08 07/18/2023 imaging/diagn ostic result completed Information not available 12/28/2023 03:26:08 07/18/2023 imaging/diagn ostic result completed Information not available 12/28/2023 03:26:11 07/19/2023 imaging/diagn ostic result completed Information not available 12/28/2023 03:26:12 08/04/2020 imaging/diagn ostic result completed Information not available 12/28/2023 03:26:14 04/08/2021 imaging/diagn ostic result completed Information not available 12/28/2023 03:26:50 05/30/2024 MRI, cervical spine, w/o contrast completed [facility] ([facility]) [address] [facility] [address], [place], [address], 06/14/2024 10:19:22 05/30/2024 MRI, cervical spine, w/o contrast completed [email or web address] Information not available 06/20/2024 16:10:50 Procedure Notes None recorded. Medical Equipment None Reported. Allergies Allergen ID Allergen Name Allergen Category Reaction Reaction Severity Criticality Documentation Date Start Date Code Code System Note Provider Name and Address Organization Details Recorded Time 56173 aspirin medicatio n other Not available Not available 09/20/2023 1191 RxNorm React ion: unkno wn, unspe cifie d;; Not Available [facility] 4 00:49:02 49668 acetamino phen / oxycodone medicatio n other Not available Not available 09/20/2023 70242 3 RxNorm React ion: unkno wn, unspe cifie d;; Not Available [facility] 4 00:49:48 47167 naproxen medicatio n other Not available Not available 09/20/2023 7258 RxNorm React ion: unkno wn, unspe cifie d;; Not Available [facility] 4 00:49:48 Medications Name Sig Start Date Stop Date Status Note LastModified by Organization Details LastModified Time d3 50 mcg (2000 ut) caps active Not Available Not Available Not Available d3 super strength 50 mcg (2000 ut) [...] a day 06/14 completed Medicati on ID: 123278 D uration Value: 10 Brand Name: ciproflo [...] mg tablet 2017 active Medicati on ID: 039682 D uration Value: 30 Brand Name: cyprohep [...] topical solution 01/11 completed Medicati on ID: 016981 D uration Value: 14 Prescri bed By [...] small amount 2020 active Medicati on ID: 130058 D uration Value: 7 Prescri bed By [...] drops,randy pension 01/11 completed Medicati on ID: [id number] Aquilino william d By Name: AZUCENA Andrade [...] 5 drop 2020 active Medicati on ID: 966422 D uration Value: 30 Prescri bed By [...] by mouth 10/19 completed Medicati on ID: 066828 D uration Value: 30 Prescri bed By Name: Paula KrugerVINAY nd Name: omeprazo le Send Method: E-Prescr ibed Sub s Allowed: subs OK Speci al Instruct ion: Take 1 tablet by mouth every day before a meal Med icationG enericNa me: omeprazo le Medic ation ID: [id number] D uration Value: 30 Prescri bed By [...] Available No t Available Comfort EZ Pen [place] 32 gauge x 5/32 USE TO INJECT [...] both nostrils 2019 active Medicati on ID: 769859 D uration Value: 30 Prescri bed By [...] Available No t Available FreeStyle [place] 2 [place] USE DIRECTED active Not Available Not Available [...] Updated DateTime 12/27/2023 157.48 cm 35.5 kg/m2 44789.92 g Nyla Rowland [place] - [facility] 12/27/2023 13:07:29 Date Recorded Body height Body mass index (BMI) Body weight Provider Name and Address Organization Details Last Updated DateTime 01/12/2024 157.48 cm 35.5 kg/m2 70847.92 g Nyla Rowland [place] - [facility] 01/12/2024 13:05:16 Date Recorded Body height Body mass index (BMI) Body weight Provider Name and Address Organization Details Last Updated DateTime 06/14/2024 157.48 cm 36.9 kg/m2 65016.66 g Nyla Rowland [place] - [facility] 06/14/2024 09:18:50 Date Recorded Body height Body mass index (BMI) Body weight Provider Name and Address Organization Details Last Updated DateTime 10/20/2023 157.48 cm 38.2 kg/m2 92039.81 g Nyla Rowland [place] [facility] 10/20/2023 13:21:31 Social History None recorded. Functional Status None recorded. Mental Status None recorded. Family History Nothing Reported. Medical History No medical history recorded. Gynecological HistoryNo gynecological history recorded. Obstetrics History GPAL:G 0 P 0 0 0 0 Past Encounters Encounter ID Performer Location Encounter Start Date Encounter Closed Date Diagnosis/Indication Diagnosis SNOMED-CT Code Diagnosis ICD10 Code Diagnosis Note [id number] UDRAN NELSON MD [facility] [address] [place] [address] 10/20/2023 13:04:44 10/20/2023 14:59:17 Otalgia of left ear 3240387668 H92.02 63 yo F presents for follow up of her left ear. She is here for scheduled cerumen removal, but she is concerned about persistent pain. She was seen in [place] at the end of January and had [...] of her neurology visit. Trigeminal neuralgia 316 81056 G50.0 [id number] DURAN NELSON MD [facility] on [address] [place] [address] 2 12/27/2023 13:00:52 12/27/2023 13:42:13 Diffuse otitis externa 68783275 H60.312 Otalgia of left ear 1010 499661 H92.02 63 yo F presents for follow up of her left ear. She is here for scheduled cerumen removal, but she is concerned about persistent pain. She was seen in [place] at the end of January and had [...] Lotrisone into the canal. Follow-up 2 weeks. [id number] DURAN NELSON MD [facility] on [address] [place] [address], [place] [address] 01/12/2024 12:56:02 01/12/2024 14:21:07 Otalgia of left ear 6198816273 H92.02 63 yo F presents for follow up of her left ear. Lotrisone is gone. No infection. Middle ear aerated. she can continue the vinegar drops for maintenanc e as lotrisone sparingly to the EAC meatus. Follow up three months for reassessme nt and cleaning. [id number] DURAN NELSON MD [facility] on [address] [place] [address], [place] [address] 06/14/2024 09:03:19 06/14/2024 09:30:18 Otalgia of left ear 2146550457 H92.02 63 yo F presents for follow [...] Yost Member ID Guarantor Name 10/20/2023 1 [facility] [id number] Maribell H Colon [id number] 1 Maribell H Colon 12/27/2023 1 [facility] [id number] Maribell H Colon [id number] 1 Maribell H Colon 01/12/2024 1 [facility] [id number] Maribell Blackwell Colon [id number] 1 Maribell Blackwell Colon 06/14/2024 1 [facility] [id number] Maribell Blackwell Colon [id number] 1 Maribell Blackwell Colon Notes Date Note Type Note Provider Name and Address Organization Details Recorded Time 10/20/2023 text/html 63 yo F presents for follow up of her left ear. She is here for scheduled cerumen removal, but she is concerned about persistent pain. She was seen in [place] at the end of January and had [...] a CT scan of the neck at [place] which did not show any sign of [...] mouth to to tightness DURAN NELSON MD [address] [place] [address], [place], [address], [place] [facility] [place] 10/30/2023 18:46:54 12/27/2023 text/html 63-year-old luis carlos bull presents today for follow-up and reassessment of her ear. PV:63 yo F presents for follow up of her left ear. She is here for scheduled cerumen removal, but she is concerned about persistent pain. She was seen in [place] at the end of January and had [...] a CT scan of the neck at [place] which did not show any sign of [...] mouth to to tightness DURAN NELSON MD [address] [place] [address], [place], [address], [place] - [facility] 01/03/2024 08:17:01 01/12/2024 text/html 63 yo F presents for follow up after lotrisone injection on the left. She does feel improvement in left otalgia. \ She was seen in [place] at the end of January and had [...] on the left. DURAN NELSON MD 100 [facility],[address], [address], [place] - [facility] 01/18/2024 06:10:12 06/14/2024 text/html Oxcarbazepine helping with [...] recent AIC 7.4. DURAN NELSON MD 100 [facility],[address], [address], [place] - [facility] 06/14/2024 09:30:26 OBGyn Episode No OBEpisode recorded.
--- OUTSIDE RECORDS SUMMARY | 2024-07-25 10:54 | XMS_ITS | Clinical Summary ---
Author Organization [facility] Address [address] [place] [address] Phone Care Team Providers Care Head Turbine Operator Name Role Phone Samuel Hilario MD Primary Care Provider [phone] Allergies Active Allergy Reactions Criticality Noted Date [...] DAY NEEDED 1 Active Comfort EZ Pen [place] 32G X 4 MM [facility] 2 Active Easy Comfort Lancets [facility] 2 Active gemfibrozil (LOPID) 600 MG tablet [...] incontinence 03/29/2014 Overview (09/06/2022): Darline. Changed to [place] Panic attack 03/29/2014 Overview (09/06/2022): Sees psych [...] care s/p amputation.sees dr loyd for infection denaudrey marina is her plastic surgeon just finished reconstruciton Encounters Date Type Department Care Team Description 07/07/2024 Orders Only [facility] [address] [address] Racheal Wood ARNP Stage 3a chronic kidney disease (HCC); Hypertension 06/09/2024 Orders Only [facility] [place] [id number] [address] Racheal Wood ARNP Stage 3a chronic [...] Care Team (Late st Contact Info) Description 08/01/2024 11:00 AM EDT Office Visit [facility] [address] [address] WoodRacheal ARNP [address] [address] Health Maintenance Due Date Last Done Comments Breast Cancer Screening 1960 Colorectal Cancer Screening: Annual FOBT 09/25/2011 Colorectal Cancer Screening: Colonoscopy 09/25/2011 Colorectal Cancer Screening: Sigmoidoscopy 09/25/2011 Pneumococcal Vaccine: Pediatrics (0 to 5 Years) and At-Risk Patients (6 to 64 Years) (2 of 2 - PCV) 04/29/2015 04/29/2014 Diabetes: Ophthalmology Exam 05/26/2021 09/25/2009 Diabetes: Pedal Pulse Checked 05/26/2021 Diabetes: Sensory Foot Exam 05/26/2021 Diabetes: Visual Foot Exam 05/26/2021 Diabetes: Hemoglobin A1C 09/14/2021 022, 02/25/2017 Influenza Vaccine Completed 03/08/2024, 02/02/2017 Hepatitis B Vaccine Aged Out No [...] PM EST) Hemoglobin A1C 9.2(H) (4.0-5.6) % [facility] Comment: MONITORING: In known diabetic patients, hemoglobin A1c targets should be discussed with health care provider. DIAGNOSTIC USE: ??The [place] Diabetes Association (ADA) and the World Health [...] Supplement 1 Testing performed or reported by [facility] [employer], a Service of [facility], [address] [place] [address] Bertin Bethea MD, Scratch Finisher [facility]# [id number] Blood (Blood, Venous) 06/17/2021 4:28 PM EST 06/17/2021 4:29 PM EST Feroz Lakhani MD LAB BLOOD ORDERABLES Final Re sult [facility] from Last 3 Months or Most Recently Relevant to Health Maintenance Insurance MEDICAID MEDICAID Care Teams Head Turbine Operator Relationship Specialty Start Date End Date Samuel Hilario MD [address] [place] [address] PCP - General Internal Medicine 05/26/21
--- OUTSIDE RECORDS SUMMARY | 2024-07-25 10:54 | XMS_ITS | Clinical Summary ---
Author Organization 175 [facility] Address 175 [place] [address] Phone Care Team Providers Care Pmo Project Manager Name Role Phone Samuel Hilario MD Primary Care Provider [phone] Allergies Active Allergy Reactions Criticality Noted Date [...] incontinence 03/29/2014 Overview (03/27/2024): Darline. Changed to [place] Panic attacks 03/29/2014 Overview (03/27/2024): Sees psych [...] 08/19/2005 Depressive disorder 08/19/2005 Overview (03/27/2024): [facility] give wellbutrin,remerenon,seroquel Encounters Date Type Department Care Team Description 06/20/2024 2:45 PM EST Office Visit Orthopedic Surgery [place] [address] [phone] Nolberto Cruz DPM Acquired hammer toe of right foot (Primary Dx); Dermatophytosis of nail; Hx of BKA, left (CMS/HCC); Type II diabetes mellitus with peripheral circulatory disorder (CMS/HCC); Corns and callosities; Diabetic mononeuropathy simplex (CMS/HCC) 05/14/2024 Telephone Orthopedic Surgery [facility] [address] [phone] Nolberto Cruz DPM medication 05/10/2024 1:30 PM EST Consult Orthopedic Surgery [facility] [address] [phone] Nolberto Cruz DPM Dermatophytosis of nail (Primary Dx); Hx of BKA, left (CMS/HCC); Type II diabetes mellitus with peripheral circulatory disorder ([facility]/HCC); Diabetic mononeuropathy simplex ([facility]/HCC); Corns and callosities from Last 3 Months [...] Date Site/Laterality Comments ENDOMETRIAL ABLATION 2006 PROCEDURE: WI ENDOMETRIAL ABLTJ THERMAL W/O HYSTEROSCOPIC GUID; COMMENT: Whit OTHER SURGICAL HISTORY 2011 Left PROCEDURE: HISTORICAL BELOW KNEE AMP; COMMENT: vascular problems COLONOSCOPY 08/20/2008 PROCEDURE: HISTORICAL COLONOSCOPY; COMMENT: normal TUBAL LIGATION PROCEDURE: HISTORICAL TUBAL LIGATION CARPAL TUNNEL RELEASE 2021 PROCEDURE: WI NEUROPLASTY &/TRANSPOS MEDIAN NRV CARPAL TUNNE Medical History Medical History Date Comments 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) DX:Arterial embolism and thr ombosis of lower extremity (HCC) Left hip pain DX:Left hip pain Amenorrhea DX:Amenorrhea Chronic abdominal pain DX:Chroni c abdominal pain Asthma DX:Asthma Obesity DX:Obesity Amputation of leg (CMS/HCC) DX:A mputation of leg ([facility]) Incontinence DX:Incontinence Otitis media DX:Otitis media Pelvic [...] amputation (CMS/HCC) 03/18/2014 DX:History of leg amputation ([facility]); COMMENT: BKA 08/10/11 (leg not specified) History of pulmonary embolism 03/18/2014 DX :History of pulmonary embolism; COMMENT: 2011 MUSA (obstructive sleep apnea) 03/18/2014 DX :MUSA (obstructive sleep apnea) Impaired fasting glucose 03/18/2014 DX:Impa ired fasting glucose Lumbosacral spondylosis with out myelopathy 03/18/2014 DX:Lumbosacral spondylosis w ithout myelopathy Eczema 03/18/2014 DX:Eczema Morbid obesity (CMS/HCC) 03/18/2014 DX:Morb id obesity ([facility]); COMMENT: BMI 43.0 on 02/07/14 Hypertension DX:Hypertension Type 2 diabetes mellitus wit hout complications (CMS/HCC) DX:Type 2 diabetes mellitus without complications ([facility]) Diabetic gastroparesis (CMS/HCC) 08/25/2022 DX:Diabetic gastroparesis ([facility]) Family History Medical History Relation Name Comments [...] EDT Office Visit Obstetrics and Gynecology - [facility] [address] [place] [address] Tony Matt, CNM [address] [place] [address] 09/19/2024 2:00 PM EDT Office Visit Orthopedic Surgery - [place] [address] [phone] Nolberto Cruz, DPM [address] [address] Health Maintenance Due Date Last Done Comments [...] AM EDT Narrative 10/21/2020 11:47 AM EDT [facility] Diagnostic Imaging Department [address] [place] [address] [id number] Patient: ??COLON,MARIBELL ?/Age/Sex: 1960 - 60 - F Unit#: ??[id number] ? Location/Status: ??SPDIMAM/REG CLI ? Mnemonic/Ordering Site: [...] MLO projection. 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 TISSUE DENSITY: a. The breasts [...] Routine screening mammogram BILATERAL in 1 year. 14428, 35800 3342F, 7025F Dictating Physician: ??BONNIE OSUNA MD Electronically Signed by: ??BONNIE OSUNA MD Dic Date/Time: ??10/21/20 1146 Sign date/Time: ??10/21/20 1147 Procedure Note Bonnie Osuna MD - 04/27/2022 [facility] Diagnostic Imaging Department [address] [place], [place] [id number] Patient: MARIBELL TAYLOR /Age/Sex: 1960 - 60 - F Unit#: [id number] Location/Status: SPDIMAM/REG CLI Mnemonic/Ordering Site: [facility] Ordering Physician: TONY MATT CNM [facility] Screening Digital - 10/21/20 - 1120 EXAM: [facility] Screening Digital EXAM DATE AND TIME: 10/21/2020 11:22 AM HISTORY: Screening. COMPARISON: 08/22/18, 08/18/17, 07/15/16, 06/05/15 TECHNIQUE: CC and MLO views of both breasts were obtained using fullfield digital mammography. Bilateral digital breast tomosynthesis was performedin the MLO projection. 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 TISSUE DENSITY: a. The breasts are [...] Routine screening mammogram BILATERAL in 1 year. 86544, 19163 3342F, 7025F Dictating Physician: BONNIE OSUNA MD Electronically Signed by: BONNIE OSUNA MD Dic Date/Time: 10/21/20 1146 Sign date/Time: 10/21/20 1147 Tony Matt CNM [facility] BI PROCEDURES Final Resul t * Hm Cervical Cancer Screening: HPV (10/02/2020) [facility] Cervical Cancer Screening: HPV abstracted, negative Result [facility] Provider HEALTH MAINTENANCE Final Result * Urine Albumin Creatinine Ratio (02/25/2017) [facility] Urine Albumin Creatinine Ratio abstracted Result [facility] Provider HEALTH MAINTENANCE Final Result * (ABNORMAL) Hemoglobin A1c (02/25/2017) [facility] Hemoglobin A1C 7.4(A) 4.0 - 6.0 % Blood Venous blood specimen / Unknown Result [facility] Provider LAB BLOOD ORDERABLES Jessy l Result * (ABNORMAL) Lipid panel (02/25/2017) [facility] LDL/HDL Ratio 4 0 - 4 Triglycerides 280(A) 0 - 150 mg/dL Cholesterol 110 0 - 200 mg/dL HDL 29(A) >=40 mg/dL LDL Cholesterol 25 0 - 100 mg/dL Blood Venous blood specimen / Unknown Result [facility] Provider LAB BLOOD ORDERABLES Jessy l Result * Hepatitis C Screening (01/02/2016) [facility] Hepatitis C Screening abstracted Result [facility] Provider HEALTH MAINTENANCE Final Result * Depression Screening (08/19/2005) [facility] Depression Screening abstracted Result [facility] Provider HEALTH MAINTENANCE Final Result from Last 3 Months or Most Recently Relevant to Health Maintenance Insurance [facility] [employer] Care Teams Pmo Project Manager Relationship Specialty Start Date End Date Samuel Hilario MD [address] [place] [address] PCP - General Internal Medicine 03/19/20
--- OUTSIDE RECORDS SUMMARY | 2024-07-25 10:55 | XMS_ITS ---
Author Organization [facility] Address [address] [place] [phone] Care Team Providers Care Electrical Appliance Mechanic Name Role Phone ELLA MICHAEL Primary Care Provider REASON FOR VISIT FYI. Encounters Encounter Location Date Provider Diagnosis [facility] [address] [phone] 06/21/2024 ELLA MICHAEL Plan Of Treatment Next Appt Details Provider Name:ELLA MICHAEL , 11/26/2024 10:00:00 AM, [address] [address], [place], [address], Progress Notes * ZOIE SWEENEY HDOB: 3 (63 yo F)Acc No.[id number]:06/21/2024 Patient:?ZOIE SWEENEY :1960???Age:63 Y???Sex:Female Address:[address] [place] [address] * true * Date:? Generated for Printi ng/Faramag/eTransmitting on:?07/25/2024 10:54 AM EDT
== END 2024-07-25 09:45 | disposition home or self-care (01) ==
LOC: HO.NEURO 09:44
PROVIDERS: PCP Hospitalist; Visit Provider Nurse Practitioner Family
DX: R51.9 Headache, unspecified (principal); M54.2 Cervicalgia; M48.02 Spinal stenosis, cervical region; G24.3 Spasmodic torticollis
CPT/HCPCS: 95886; 95911

== ENCOUNTER → 2024-07-25 09:47 | Outpatient (BNV) | payer OTHER, SELFPAY | PROVIDERS: PCP Hospitalist; Visit Provider Physical Medicine & Rehabilitation | DX: G56.03 Carpal tunnel syndrome, bilateral upper limbs (principal); G56.23 Lesion of ulnar nerve, bilateral upper limbs; E11.40 Type 2 diabetes mellitus with diabetic neuropathy, unspecified | CPT/HCPCS: 95886; 95911 ==

== ENCOUNTER 2024-07-30 13:16 | Outpatient (AMB) | payer OTHER, SELFPAY ==
--- NOTE | 2024-07-30 13:16 | MHC.OFFVIS ---
Intake Visit Reasons: 10w follow up Intake Note: Patient is present for 10w follow up Urology Medication:Gemtesa Blood Thinner:Apixaban Allergy to Antibiotic: Allergies octopus Allergy (Severe, Verified 07/30/24 13:20) Anaphylaxis oxybutynin Allergy (Severe, Verified 07/30/24 13:20) Difficulty Swallowing tolterodine Allergy (Severe, Verified 07/30/24 13:20) Difficulty Swallowing aspirin Allergy (Unknown, Verified 07/30/24 13:20) anaphylaxis citalopram Allergy (Unknown, Verified 07/30/24 13:20) Unknown empagliflozin [From Jardiance] Allergy (Unknown, Verified 07/30/24 13:20) Unknown Fish Containing Products Allergy (Unknown, Verified 07/30/24 13:20) Unknown gabapentin Allergy (Unknown, Verified 07/30/24 13:20) hives hydrocodone [Vicodin] Allergy (Unknown, Verified 07/30/24 13:20) hives naproxen [Naprosyn] Allergy (Unknown, Verified 07/30/24 13:20) anaphylaxis oxycodone [Percocet] Allergy (Unknown, Verified 07/30/24 13:20) hives pregabalin [From Lyrica] Allergy (Unknown, Verified 07/30/24 13:20) Unknown sertraline Allergy (Unknown, Verified 07/30/24 13:20) Unknown shellfish derived Allergy (Unknown, Verified 07/30/24 13:20) Unknown peanut Allergy (Verified 07/30/24 13:20) Anaphylaxis solifenacin Adverse Reaction (Verified 07/30/24 13:20) phlegm Vicodin Allergy (Unknown, Uncoded 04/17/24 16:28) hives Medication List - Last Reconciled 07/30/24 by Nahun Aldana MD albuterol sulfate 90 mcg/actuation 1 inh inhalation QID PRN alcohol swabs pad topical TID amlodipine 5 mg PO DAILY amoxicillin-pot clavulanate 500-125 mg (Augmentin) 1 tab PO Q8H 10 days apixaban 5 mg PO BID atorvastatin 10 mg PO DAILY baclofen 10 mg PO BID 30 days benzonatate 100 mg PO TID blood sugar diagnostic As directed cholecalciferol (vitamin D3) 50 mcg PO BEDTIME citalopram 40 mg PO DAILY diclofenac sodium 1% grams topical diphenhydramine HCl (Benadryl) 25 mg PO TID PRN disposable gloves (Nitrile Exam Gloves) As directed- pt requesting size XL dulaglutide (Trulicity) mg subcut empagliflozin (Jardiance) 10 mg PO QAM ezetimibe 10 mg PO DAILY fluocinonide 0.05% appl topical DAILY fluticasone propionate 50 mcg/actuation 0 mcg intranasal BID hydrochlorothiazide 25 mg PO QAM hydroxyzine HCl 25 mg PO DAILY incontinence pad, liner, disp (Poise Pads) As directed incontinence pad, liner, disp As directed- pt requesting 6 per day insulin glargine (Lantus Solostar U-100 Insulin) units subcut BEDTIME insulin lispro 30 units subcut TID lancets As directed lidocaine 5% 1 patch topical DAILY PRN loratadine 10 mg PO DAILY lorazepam 1 mg PO BID losartan 100 mg PO DAILY metformin 850 mg PO BID metoclopramide HCl (Reglan) 10 mg PO .six times a day metoprolol succinate ER 100 mg PO DAILY montelukast 10 mg PO DAILY nystatin 1 appl topical TID 30 days omeprazole 20 mg PO DAILY oxcarbazepine (Trileptal) 150 mg PO DAILY 30 days pen needle, diabetic As directed temazepam 30 mg PO BEDTIME PRN triamcinolone acetonide 0.025% appl topical trospium ER 60 mg PO DAILY underpads (Bed Underpads) As directed- pt requesting 3 per night vibegron (Gemtesa) 75 mg PO DAILY 90 days HPI Comments Details: 07/30/24--Maribell is a 63-year-old female presenting with overactive bladder. She had urodynamics performed on May 25, 2024, findings c/w detrusor overactivity, neurogenic bladder. Despite being prescribed Gemtesa, she is currently experiencing ongoing urinary incontinence, requiring the use of 8-9 pads daily. Also using [id number] bladder control agents have also been ineffective. The frequency and impact of symptoms are significant, affecting her daily routine and quality of life. The patient is on Eliquis. I have discussed I do not need her to stop the eliquis prior to the botox procedure. I have discussed risks to include hematuria, UTI, urinary retention, need to repeat procedure for sustained efficacy. 05/25/24--Maribell is here for urodynamics. The patient has complaints of urinary incontinence. She has been on several anticholinergics without adequate improvement in urinary symptoms. Currently she is on Gemtesa 75 mg daily and takes OTC Azo-bladder. Interpretation: During the filling phase there was sensory urgency was noted, strong urge was noted at 169 mL with a small detrusor contraction; bladder capacity was less than average, the patient felt that she was at capacity at 182 mL and voided 190 mL. Findings consistent with neurogenic bladder, less than average functional bladder capacity. EMG- Appropriate changes in the waveforms were noted through out the study. Discussed with patient that urinary leakage can be related to pelvic floor muscles weakness and/or bladder spasms. Discussed findings. Treatment options discussed for OAB included anticholinergics/antimuscarinics, neuromodulation, bladder botox injection. The patient wants to avoid any procedures at this time. Will use combination PO anticholinergic Gemtesa with trospium. [facility] Medical History Gastroparesis COVID-19 UTI (urinary tract infection) Amputated toe of right foot Ganglion cyst Urinary incontinence HTN (hypertension) Diabetes mellitus Urinary incontinence Surgical History History of left below knee amputation S/P carpal tunnel release History of surgical removal of ganglion cyst S/P rotator cuff repair History of surgery Social History Alcohol intake: never Patient Tobacco Use Status: Never used Tobacco Substance Use Type: Marijuana Review of Systems Const All systems reviewed & are unremarkable except as noted in HPI and below Reports no additional complaints Eyes Reports no additional complaints ENT Reports no additional complaints Card Reports no additional complaints Resp Reports no additional complaints GI Reports no additional complaints Reports as per HPI Musc Reports no additional complaints Skin/Breast Reports system reviewed and no additional complaints, except as documented Neuro Reports no additional complaints Psych Reports no additional complaints Endo Reports no additional complaints Rip/Lymph Reports no additional complaints Aller/Immun Reports no additional complaints Telehealth Telehealth Telehealth Platform: [facility] Location of provider rendering services: practice address Location of patient: address on file Patient Identification confirmed using: Name, : Yes Telehealth method: video Patient verbally consented to treatment: Yes Patient verbally consented to billing insurance company: Yes Patient informed of any privacy concerns related to visit: Yes Assessment & Plan Assessment & Plan (1) Spastic neurogenic bladder: Code(s): N31.8 - Other neuromuscular dysfunction of bladder Category: Medical (2) Urge incontinence of urine: Code(s): N39.41 - Urge incontinence Category: Medical (3) OAB (overactive bladder): Code(s): N32.81 - Overactive bladder Category: Medical Plan Plan - Continue taking Gemtesa as prescribed - Botox injection procedure 100 units, needs insurance approval - No need to stop Eliquis before the procedure - the nurse will contact for further instructions on scheduling - Use urinary pads as needed Patient Instructions: The patient had an opportunity to ask questions regarding treatment plan. The patient expressed understanding and agreement with the above treatment plan. The patient is aware they should contact our office by phone for worsening of their current condition or the appearance of new symptoms. Compliance is encouraged with any medications and followup testing that is ordered. It is a privilege to be allowed the opportunity to participate in the urologic care of your patient. If you have any questions or concerns regarding treatment for the above conditions please do not hesitate to contact me. The office telephone contact is [phone]. This note is constructed in part using voice recognition software. While every effort has been made to ensure accuracy perioperative manager errors may have been included. Yours sincerely, Nahun Aldana MD Scribe Plan - Not visible on output: Patient was informed and verbally consented to the use of an ambient scribe for clinic note documentation during this visit. Coding Level of Care Code Est Pt Level 4 (92664) Diagnoses Spastic neurogenic bladder N31.8 Urge incontinence of urine N39.41 OAB (overactive bladder) N32.81
== END 2024-07-30 14:47 | disposition home or self-care (01) ==
LOC: HO.HUSH 13:16
PROVIDERS: PCP Hospitalist; Visit Provider Urology
DX: N31.8 Other neuromuscular dysfunction of bladder (principal); N39.41 Urge incontinence; N32.81 Overactive bladder
CPT/HCPCS: 99214

== ENCOUNTER → 2024-07-30 13:16 | Outpatient (BNVA) | payer OTHER, SELFPAY | PROVIDERS: PCP Hospitalist; Visit Provider Urology | DX: N32.81 Overactive bladder (principal); N31.8 Other neuromuscular dysfunction of bladder; N39.41 Urge incontinence | CPT/HCPCS: 99212 ==

== ENCOUNTER 2024-08-16 12:26 | Outpatient (RCR) | payer OTHER, SELFPAY ==
[2024-07-05 12:27] VITALS: BP 138/64; PULSE 84; O2SAT 96
--- NOTE | 2024-07-05 15:19 | MHC.PT.EP ---
[facility] [place] Office [place] Office [place] Office [address] Dilip [address] [phone] F: [phone] F: [phone] F: [phone] F: [phone] Physical Therapy Plan of Care Date of Evaluation: 07/05/24 Date of Surgery: Diagnosis: CERVICALGIA- Lt TMJ, Lt TEMPORAL HEADACHE Assessment: 63 YO FEMALE REF TO PT WITH CERVICAL PAIN AND TEMPORAL DE [place], SINCE SEPTEMBER 2023-> SHE DENIES TRAUMA AND TIA/ NEURO ORIGIN R/O-> SHE HAS A H/O Lt RC REPAIR YRS AGO. THE Pt HAS A Lt BKA PROSTHESIS AND COMPENSATORY POSTURE. 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 FUNCTIONALLY, THE Pt LEADS A SEDENTARY LIFESTYLE, SHE STATED SHE SPENDS HER DAYS LYING IN BED WATCHING TV- SHE STATED SHE IS LIMITED W HOUSECHORES AND HAS DIFFIC SLEEPING W HER CPAP MACHINE. WE DISCUSSED A PT POC , ADDRESSING POSTURE, SOFT TISSUE TENSION, DEV HEP, AND ADDRESSING PAIN MGMT-> INCREASING HEWR OVERALL ADL TOLERANCE/ ACTIVITY LEVEL. Frequency and Duration: The patient will be seen 2 x WK x 4 WKS Short Term Goals: DECR CERV /UT TISSUE TENSION INCR CERV AROM INITIATE HEP DECR CERV PAIN TO 2-3/10 Retirement Goals: Pt INDEP W HEP Pt INCREASE HER ADL [place] , SLEEP , EVIDENT W IMPROVED NPDI (AT EVAL 32/50) Pt INCREASE POST RC/ SCAP STRENGTH BY 1/2 TO 1 GRADE Pt DEMON INDEP W SELF CORRECT POSTURE W VRIED ADLs Treatment Plan: Modalities to reduce pain, spasms and effusion. Manual therapy to restore motion and function. Therapeutic exercise to improve strength and flexibility. Neuromuscular re-education for posture and balance. Therapeutic activities to return to functional activities of daily living. Electronically signed by: TYESHA WALLS,PT Please sign and return to therapist. Thank you for your referral.
--- NOTE | 2024-08-16 13:42 | MHC.PT.DC ---
[facility] [place] Office [place] Office [place] Office [address] Dilip Aguillon [address] [phone] F: [phone] F: [phone] F: [phone] F: [phone] Physical Therapy Discharge Report Diagnosis: CERVICALGIA- Lt TMJ, Lt TEMPORAL HEADACHE Date of Surgery: Date of Evaluation: 07/05/24 Date of Discharge: 08/16/24 Treatments to Date: 8 Cancellations to Date: No Shows to Date: 1 Discharge Status: Achieved Goals Improved Function Independent with HEP Discharge Summary: ZOIE HAS PROGRESSED NICELY IN PT- SHE HAS REDUCED NECK PAIN AND IMPROVED ACTIVITY [place]- HER NPDI AT [place] WAS 32/50 AND TODAY AT D/C , 12/50. HER CERV AROM HAS GREATLY IMPROVED WELL POSTERIOR RC/ SCAPULAR MM ACTIV. SHE HAS MET HER PT GOALS AT THIS TIME AND IS D/C W HER HEP AT THIS TIME Electronically signed by: TYESHA WALLS,PT Please sign and return to therapist. Thank you for your referral.
== END 2024-08-16 13:42 | disposition home or self-care (01) ==
LOC: HO.PT 12:26
PROVIDERS: PCP Hospitalist; Visit Provider Nurse Practitioner Family
DX: M54.2 Cervicalgia (principal); M26.622 Arthralgia of left temporomandibular joint; R51.9 Headache, unspecified
CPT/HCPCS: 97110; 97140; 97162

== ENCOUNTER 2024-09-04 07:50 | Day surgery (SDC) | payer OTHER, SELFPAY ==
--- OUTSIDE RECORDS SUMMARY | 2024-08-22 14:10 | XMS_ITS ---
Author Organization [facility] Address [address] [place] [address] [address] [place] [address] Care Team Providers Care Solar Installer Pv Name Role Phone ELLA MICHAEL Primary Care Provider REASON FOR VISIT Lipid Panel 6 months lab slip Encounters Encounter Location Date Provider Diagnosis [facility] 294 [facility] [address] [place] [address] 08/16/2024 ELLA MICHAEL Pure hypercholesterolemia, unspecified E78.00 Assessments Encounter Date Diagnosis (ICD Code) Assessment Notes Treatment Notes Treatment Clinical Notes Section Notes 08/16/2024 Pure hypercholesterol emia, unspecified (ICD-10 - E78.00) Plan Of Treatment Pending Test Test Name Order Date Lipid Panel-[id number] 08/16/2024 Next Appt Details Provider Name:ELLA Flores FERNANDA , 11/06/2024 09:30:00 AM, [address] [place] [address], [phone], Provider Name:JARAMILLOMARLON WUAme , 11/26/2024 10:00:00 AM, [address] [place] [address], [phone], Progress Notes * ZOIE TAYLOR HDOB: 3 (63 yo F)Acc No.[id number]:08/16/2024 Patient:?ZOIE TAYLOR :1960???Age:63 Y???Sex:Female Address:[address] [place] [phone] Subjective: * Chief Complaints: * ???Lipid Panel 6 months lab slip * Medical History:? * Surgical History:? * Hospitalization/Major Diagno stic Procedure:? * Medications:? Objective: * Vitals:? * Physical Examination:? Assessment: * Assessment: 1.?Pure hypercholesterolemia , unspecified - E78.00??? Plan: * Treatment: * Procedure Codes:? * true * Date:? Generated for Hood sanchez/Nataliia/eTransmitting on:?08/22/2024 02:10 PM EDT
--- OUTSIDE RECORDS SUMMARY | 2024-08-22 14:11 | XMS_ITS | Encounter Summary ---
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 Phone Samuel Hilario MD Primary Care Provider [phone] Reason for Referral * Imaging (Routine) - Authorized Specialty Diagnoses / Procedures Referred By Rosie lange Referred To Contact Radiology Diagnoses Encounter for well woman exam with routine gynecological exam Screening breast examination Procedures MG Mammo Digital Screening w Betty Schaefer CNM [address] [place] [address] Phone: tel: fax: [address] [phone] Phone: tel: Referral ID Status Reason Start Date Expiration Date V isits Requested Visits Authorized [id number] Authorized 08/07/2024 08/07/2025 1 1 Reason for Visit * Imaging (Routine) - Authorized Specialty Diagnoses / Procedures Referred By Rosie lange Referred To Contact Radiology Diagnoses Encounter for well woman exam with routine gynecological exam Screening breast examination Procedures MG Mammo Digital Screening w Betty Schaefer CNM [address] [place] [address] Phone: tel: fax: [address] [phone] Phone: tel: Referral ID Status Reason Start Date Expiration Date V isits Requested Visits Authorized [id number] Authorized 08/07/2024 08/07/2025 1 1 Encounter Details Date Type Department Care Team (Latest Contact Info) Description 08/20/2024 9:05 AM EDT - 08/20/2024 11:59 PM EDT Hospital [facility] [address] [phone] Encounter for well woman exam with routine gynecological exam; Screening breast examination Discharge Disposition: Home or Self Care Social History Tobacco Use Types Packs/Day Years Used Date Smoking Tobacco: Former Cigarettes Q uit: 05/09/1999 Smokeless Tobacco: Never Alcohol Use Standard Drinks/Week Comments No 0 (1 standard drink = 0.6 oz pur e alcohol) Comments No Sex and Gender Information Value Date Recorded Sex Assigned at Not on file Legal Sex Female 1:57 PM EST Gender Identity Not on file Sexual Orientation Not on file Occupation Industry Job Start Date Job End Date Disabled Not on file Not on file Not on file documented as of this encounter Last Filed Vital Signs Vital Sign Reading Time Taken Comments Blood Pressure - - Pulse - - Temperature - - Respiratory Rate - - Oxygen Saturation - - Inhaled Oxygen Concentration - - Weight 100 kg (221 lb) 08/20/2024 9:36 AM EDT Height 157.5 cm (5' 2 ) 08/20/2024 9:36 AM EDT Body Mass Index 40.42 08/20/2024 9:36 AM EDT documented in this encounter Medications at Time of Discharge albuterol HFA (PROAIR HFA ; PROVENTIL HFA ; VENTOLIN HFA) 90 mcg/actuation inhaler Inhale 2 puffs by mouth every 4 (four) hours if needed for wheezing or shortness of breath (for up to 30 days). 06/01/2017 albuterol HFA (PROAIR HFA ; PROVENTIL HFA ; VENTOLIN HFA) 90 mcg/actuation inhaler Inhale 2 puffs by mouth every 4 (four) hours if needed. 03/20/2009 albuterol HFA (PROAIR HFA ; PROVENTIL HFA ; VENTOLIN HFA) 90 mcg/actuation inhaler Inhale 2 puffs by mouth every 4 (four) hours if needed. apixaban (ELIQUIS) 5 mg tablet Take by mouth. atorvastatin (LIPITOR) 10 mg tablet Take 1 tablet (10 mg total) by mouth 1 (one) time each day. 06/06/2017 azelastine (ASTELIN) 137 mcg (0.1 %) nasal spray 2 Sprays by Each Nare route 2 times daily for 30 days. Use in each nostril as directed 06/01/2017 azelastine HCl (AZELASTINE NASL) 2 sprays each nostril each day beclomethasone (QNASL) 80 mcg/actuation HFA aerosol inhaler 2 Squirts by Nasal route daily for 30 days. 06/01/2017 betamethasone, augmented, (DIPROLENE-AF) 0.05 % cream Apply to eczematous patches daily as needed, for no longer than a 2-3 week period, then only on Sat/Sun 08/11/2016 blood sugar diagnostic (FreeStyle Lite Strips) test strip USE TO TEST FINGER STICK BLOOD SUGAR THREE TIMES DAILY 02/07/2017 calcipotriene (DOVONOX) 0.005 % ointment Apply sparingly second after mometasone twice a day to affected areas on arms and legs as needed 11/13/2016 cetirizine (ZyrTEC) 10 mg tablet Take 1 tablet (10 mg total) by mouth 1 (one) time each day. 06/06/2017 citalopram (CeleXA) 20 mg tablet Take 1 tablet (20 mg total) by mouth 1 (one) time each day. clobetasoL (TEMOVATE) 0.05 % cream To affected area 2-3 times daily for no more than 2-3 weeks, then only using on the weekends prn 08/11/2016 clotrimazole-bet amethasone (LOTRISONE) 1-0.05 % cream apply to affected area bid cyproheptadine (PERIACTIN) 4 mg tablet TAKE ONE TABLET BY MOUTH 3 (THREE) TIMES A DAY NEEDED FOR ITCH 07/12/2017 docusate sodium (STOOL SOFTENER ORAL) None Entered EASY COMFORT LANCETS MISC USE TO TEST FINGER STICK BLOOD SUGAR THREE TIMES DAILY 08/04/2017 empagliflozin-me tformin (Synjardy XR) 12.5-1,000 mg tablet, IR - ER, biphasic 24hr Take by mouth. 1 at bedtime fluconazole (DIFLUCAN) 150 mg tablet Take one tab today, if no improvement in 3 days then take 2nd dose 07/01/2023 fluticasone HFA (FLOVENT HFA) 110 mcg/actuation inhaler Inhale 2 puffs by mouth 2 (two) times a day. For 30 days 06/01/2017 fluticasone-salm eterol (Advair Diskus) 250-50 mcg/dose diskus inhaler 1 PUFF BID hydroCHLOROthiaz dee (HYDRODIURIL) 25 mg tablet 1 TABLET DAILY 05/28/2009 hydrOXYzine HCL (ATARAX) 10 mg tablet Take 1 tablet (10 mg total) by mouth 3 (three) times a day if needed for itching. 08/11/2016 incontinence pad, liner, disp pad use as directed 08/05/2009 insulin glargine,hum.rec .anlog (Basaglar KwikPen U-100 Insulin) 100 unit/mL (3 mL) injection pen INJECT 75 UNITS UNDER THE SKIN DAILY 07/12/2017 insulin lispro (HumaLOG KwikPen Insulin) 100 unit/mL injection pen Inject 5-10 Units into the skin 3 times daily (with meals). 10/01/2016 ipratropium-albu teroL (DUONEB) 0.5-2.5 mg/3 mL nebulizer solution 3 ML 4 TIMES DAILY 07/02/2009 isopropyl alcohol-benzocai ne 70-6 % pads, medicated USE TOPICALLY THREE TIMES DAILY DIRECTED 07/12/2017 LACTOBACILLUS BIFIDUS ORAL Take 1 capsule by mouth 1 (one) time each day. 03/09/2022 levalbuterol (XOPENEX) 0.63 mg/3 mL nebulizer solution Take 1 ampule by nebulization every 4 (four) hours if needed for wheezing. 06/01/2017 lidocaine hydrogel ([facility]) 2 % topical spray Apply sparingly 2-3 times a day to affected areas on right arm and chest if itchy 04/14/2017 loratadine (Claritin) 10 mg tablet 1 po qd prn losartan (COZAAR) 100 mg tablet Take 1 tablet (100 mg total) by mouth 1 (one) time each day. 06/06/2017 metoprolol succinate (TOPROL-XL) 100 mg 24 hr tablet 1 TABLET DAILY 05/28/2009 mirabegron (Myrbetriq) 25 mg 24 hr tablet 1 Tab daily. 09/10/2016 mirtazapine (REMERON) 15 mg tablet 1 TABLET DAILY 07/08/2009 mometasone (ELOCON) 0.1 % cream Apply sparingly first before calcipotriene twice a day to affected areas on arms and chest as needed 08/04/2017 montelukast (SINGULAIR) 10 mg tablet Take 1 tablet (10 mg total) by mouth at bedtime. For 30 days 10/19/2017 nystatin (MYCOSTATIN) 100,000 unit/gram powder Apply topically 3 (three) times a day. 15 g 2 08/07/2024 nystatin-triamci nolone (MYCOLOG II) ointment Apply to affected area BID for up to 2 weeks 07/01/2023 oxyCODONE (ROXICODONE) 30 mg immediate release tablet Take 1 tablet (30 mg total) by mouth 3 (three) times a day if needed for moderate pain. 08/04/2017 oxycodone HCl/acetaminophe n (TYLOX ORAL) 1 CAPSULE EVERY 6 HOURS NEEDED 08/28/2009 pantoprazole (PROTONIX) 40 mg EC tablet Take 1 tablet (40 mg total) by mouth 1 (one) time each day. 04/11/2017 pen needle, diabetic 32 gauge x 32 needle Inject 5x daily 03/01/2017 polyethylene glycol (MIRALAX) 17 gram packet DISSOLVE 1 capful (17gm) IN WATER AND DRINK 1 TO 2 TIMES daily as NEEDED FOR CONSTIPATION 10/18/2023 QUEtiapine (SEROquel) 100 mg tablet 1 tab at hs 07/08/2009 salmeteroL (SEREVENT) 50 mcg/dose diskus inhaler Inhale 1 puff by mouth 2 (two) times a day. For 30 days 06/01/2017 temazepam (RESTORIL) 15 mg capsule Take 1 capsule (15 mg total) by mouth at bedtime as needed. tiZANidine (ZANAFLEX) 2 mg tablet Take 1 tablet (2 mg total) by mouth every 8 (eight) hours if needed for muscle spasms (for up to 5 days). 03/25/2017 triamcinolone (KENALOG) 0.1 % cream apply bid to affected areas 05/28/2009 UNDERPADS MISC use for bed at night for incontinence 04/25/2009 zinc oxide 20 % ointment APPLY TO THE AFFECTED AREA TOPICALLY two (2) times a day 10/13/2023 documented as of this encounter Discharge Disposition Disposition Code Departure Means Destination Home or Self Care documented in this encounter Plan of Treatment Upcoming Encounters Date Type Department Care Team (Late st Contact Info) Description 09/19/2024 2:00 PM EDT Office Visit Orth[facility] [place] [address] [phone] Nolberto Cruz, DPM [address] [address] documented as of this encounter Procedures Procedure Name Priority Date/Time Associated Diagnosis Comments MG MAMMO DIGITAL SCREENING W LOUIE BILAT Routine 08/20/2024 10:13 AM EDT Encounter for well woman exam with routine gynecological exam Screening breast examination documented in this encounter Results * MG Mammo Digital Screening w Louie bilat (08/20/2024 10:13 AM EDT) Anatomical Region Laterality Modality Breast Bilateral Mammography 08/20/2024 4:32 PM EDT Impressions 08/20/2024 4:39 PM EDT No mammographic evidence of malignancy. ?? No suspicious interval change. A negative mammogram in the presence of a clinically suspicious palpable abnormality does not preclude the possibility of malignancy or alter the indications for biopsy. ASSESSMENT: ?? BI-RADS 1: NEGATIVE RECOMMENDATION(S): 1: Routine screening mammogram BILATERAL in 1 year. [facility] [address] [place], [address] -------- FINAL REPORT -------- Dictated By: Sd Restrepo Dictated Date: 08/20/2024 16:32 ET Assigned Physician: Sd Restrepo Reviewed and Electronically Signed By: Sd Restrepo Signed Date: 08/20/2024 16:39 ET Workstation ID: [id number] Transcribed By: Self Edit Transcribed Date: 08/20/2024 16:32 ET Narrative 08/20/2024 4:39 PM EDT EXAM: ??SCREENING MAMMOGRAPHY, BILATERAL HISTORY: ??SCREENING. ??Paternal aunt diagnosed with breast cancer age 39 COMPARISON: ??10/21/20 TECHNIQUE: Synthesized CC and MLO projections of each breast. ??Tomosynthesis of each breast in the CC and MLO projections. ADDITIONAL IMAGING: None Computer-aided detection was employed with the iCAD ??ProFound AI 3-D. TISSUE DENSITY: The breasts are almost entirely fatty. (BI-RADS ??Category A) FINDINGS: RIGHT BREAST: No suspicious mass. No suspicious calcification. No distortion. ?? No additional suspicious right breast findings LEFT BREAST: No suspicious mass. No suspicious calcification. No distortion. ?? No additional suspicious left breast findings Procedure Note Sd Restrepo MD - 08/20/2024 EXAM: SCREENING MAMMOGRAPHY, BILATERAL HISTORY: SCREENING. Paternal aunt diagnosed with breast cancer age 39 COMPARISON: 10/21/20 TECHNIQUE: Synthesized CC and MLO projections of each breast.Tomosynthesis of each breast in the CC and MLO projections. ADDITIONAL IMAGING: None Computer-aided detection was employed with the iCAD ProFound AI 3-D. TISSUE DENSITY: The breasts are almost entirely fatty. (BI-RADS CategoryA) FINDINGS: RIGHT BREAST: No suspicious mass. No suspicious calcification. No distortion. Noadditional suspicious right breast findings LEFT BREAST: No suspicious mass. No suspicious calcification. No distortion. Noadditional suspicious left breast findings IMPRESSION: No mammographic evidence of malignancy. No suspicious interval change. A negative mammogram in the presence of a clinically suspicious palpableabnormality does not preclude the possibility of malignancy or alter theindications for biopsy. ASSESSMENT: BI-RADS 1: NEGATIVE RECOMMENDATION(S): 1: Routine screening mammogram BILATERAL in 1 year. [facility] location[facility] [address], [address] -------- FINAL REPORT -------- Dictated By: Sd Restrepo Dictated Date: 08/20/2024 16:32 ET Assigned Physician: Sd Restrepo Reviewed and Electronically Signed By: Sd Restrepo Signed Date: 08/20/2024 16:39 ET Workstation ID: [id number] Transcribed By: Self Edit Transcribed Date: 08/20/2024 16:32 ET Betty Matt CNM IMG BI PROCEDURES Final Resul t documented in this encounter Visit Diagnoses Diagnosis Encounter for well woman exam with routine gynecological exam Screening breast examination Other screening breast examination documented in this encounter 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
--- OUTSIDE RECORDS SUMMARY | 2024-08-22 14:11 | XMS_ITS | Clinical Summary ---
Author Organization [facility] Address [address] [place] [address] Phone Care Team Providers Care Stylist Apprentice Name Role Phone Samuel Hilario MD Primary Care Provider Allergies Active Allergy Reactions Criticality Noted Date [...] mg tablet 1 po qd prn Active nystatin (MYCOSTATIN) 100,000 unit/gram powder Apply topically 3 (three) times a day. 15 g 2 5 08/08/19 26 Active Active Problems Problem Noted Date Diagnosed [...] that time. All questions answered. Diabetic gastroparesis ([facility] V24, [facility] V28 ) 08/25/2022 Prurigo nodularis 11/13/2016 Overview (03/27/2024): Prurigo [...] results Intolerant gabapentin Type 2 diabetes mellitus wit h neurological manifestations ([facility] V24, [facility] V28) 03/29/2014 Overview (03/27/2024): Left stump neuropathy Intolerant metformin Refused increase med. See Tel. 02/02/16 Urinary incontinence 03/29/2014 Overview (03/27/2024): Darline. Changed to [place] Panic attacks 03/29/2014 Overview (03/27/2024): Sees psych Morbid obesity ([facility] V24, [facility] V28) 2013 Overview (03/27/2024): BMI 43.0 on 02/07/14 per transfer records MUSA (obstructive sleep apnea) 03/18/2014 Lumbosacral spondylosis without myelopathy 03/18 Eczema 03/18/2014 History of leg amputation ([facility] V24, [facility] V28) 03/18/2014 Overview (03/27/2024): BKA 08/10/11 left Lumbago 04/16/2009 S/P BKA (below knee amputation) ([facility] V24, S/[facility] V28) 12/30/2008 Overview (03/27/2024): left Sleep apnea 09/01/2005 Overview (03/27/2024): uses CPAP IMO update 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 ([facility] V24, [facility] V28) 08/19/2005 Overview (03/27/2024): from birthcontrol.had amputation on 10/11.on coumadin since October previous pcp dr ANA ignacio u/s negative in [place] 08/16/05 plastic sugeon for wound care s/p amputation.sees dr loyd for infection suresh gray is her plastic surgeon just finished reconstruciton Heartburn 08/19/2005 Phantom limb syndrome ([facility] V24, [facility] V28) 08/19/2005 Overview (03/27/2024): IMO update Asthma 08/19/2005 Depressive disorder 08/19/2005 Overview (03/27/2024): [facility] give wellbutrin,remerenon,seroquel Encounters Date Type Department Care Team Description 08/20/2024 9:05 AM EDT - 08/20/2024 11:59 PM EDT Hospital [facility] [address] [place] [id number] Encounter for well woman exam with routine gynecological exam; Screening breast examination Discharge Disposition: Home or Self Care 08/07/2024 2:30 PM EDT [facility] [address] [place] [phone] Betty Matt CNM Encounter for well woman exam with routine gynecological exam (Primary Dx); Screening breast examination; Screening for malignant neoplasm of cervix 06/20/2024 2:45 PM EST Office Visit Orthopedic Surgery - [facility] [address] [facility] [address] [place] [phone] Nolberto Cruz DPM Acquired hammer toe of right foot (Primary Dx); Dermatophytosis of nail; Hx of BKA, left ([facility] V24, [facility] V28); Type II diabetes mellitus with peripheral circulatory disorder ([facility] V24, [facility] V28); Corns and callosities; Diabetic mononeuropathy simplex ([facility] V24, [facility] V28) from Last 3 Months Immunizations Name Administration Dates Next Due Influenza Quadravalent, MDCK , 0.5ml, with preservative (Flucelvax) 6mo and older 02/02/2017 Moderna SARS-CoV-2 COVID-19, mRNA, LNP-S, preservative free 09/19/2020,08/21/2020 Pneumococcal polysaccharide 23 valent (Pneumovax 23) 2yo and older 04/29/2014 Tdap Tetanus diptheria acell ular pertussis (Boostrix; Adacel) 7yo and older 04/17/2015 Surgical History Surgery Date Site/Laterality Comments ENDOMETRIAL ABLATION 2006 PROCEDURE: OR ENDOMETRIAL ABLTJ THERMAL W/O HYSTEROSCOPIC GUID; COMMENT: Whit OTHER SURGICAL HISTORY 2011 Left PROCEDURE: HISTORICAL BELOW KNEE AMP; COMMENT: vascular problems COLONOSCOPY 08/20/2008 PROCEDURE: HISTORICAL COLONOSCOPY; COMMENT: normal TUBAL LIGATION PROCEDURE: HISTORICAL TUBAL LIGATION CARPAL TUNNEL RELEASE 2021 PROCEDURE: OR NEUROPLASTY &/TRANSPOS MEDIAN NRV CARPAL TUNNE Medical History Medical History Date Comments 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 ([facility] V24, [facility] V28) DX:Arterial embolism and thr ombosis of lower extremity ([facility]) Left hip pain DX:Left hip pain Amenorrhea DX:Amenorrhea Chronic abdominal pain DX:Chroni c abdominal pain Asthma DX:Asthma Obesity DX:Obesity Amputation of leg ([facility] V 24, [facility] V28) DX:Amputation of leg ([facility]) Incontinence DX:Incontinence Otitis media DX:Otitis media Pelvic pain DX:Pelvic pain Left shoulder pain DX:Left shoul krystle pain Sleep apnea DX:Sleep apnea; COMMENT: CPAP Historical Medical DX 2004 DX:HTN; CO MMENT: Metropolol and Buspar Rotator cuff tear 05/18/2014 DX:Rotator cuf f tear; COMMENT: Chronic anterior/superior tear, managed medically Carpal tunnel syndrome 05/18/2014 DX:Carpal tunnel syndrome; COMMENT: left History of leg amputation ([facility] V24, [facility] V28) 03/18/2014 DX:History of leg amputation ([facility]); COMMENT: BKA 08/10/11 (leg not specified) History of pulmonary embolism 03/18/2014 DX :History of pulmonary embolism; COMMENT: 2011 MUSA (obstructive sleep apnea) 03/18/2014 DX :MUSA (obstructive sleep apnea) Impaired fasting glucose 03/18/2014 DX:Impa ired fasting glucose Lumbosacral spondylosis with out myelopathy 03/18/2014 DX:Lumbosacral spondylosis w ithout myelopathy Eczema 03/18/2014 DX:Eczema Morbid obesity ([facility] V24, [facility] V28) 03/18/2014 DX:Morbid obesity (HCC); COM MENT: BMI 43.0 on 02/07/14 Hypertension DX:Hypertension Type 2 diabetes mellitus wit hout complications ([facility] V24, [facility] V28) DX:Type 2 diabetes mellitus without complications (HCC) Diabetic gastroparesis ([facility] V24, [facility] V28) 08/25/2022 DX:Diabetic gastroparesis (H CC) Family History Medical History Relation Name Comments [...] Grandfather throat cancer Maternal Grandmother DM Mother CAD Sister Alive 3,healthy Social History Tobacco Use Types Packs/Day Years Used Date Smoking Tobacco: Former Cigarettes Q uit: 05/09/1999 Smokeless Tobacco: Never Tobacco Cessation:Counseling Given: Not Answered Alcohol Use Standard Drinks/Week Comments No 0 [...] on file Not on file Obstetrics History Para Term AB IAB SAB Ectopic Multiple Livin g Live Births 3 3 3 Date Outcome GA Total Labor Labor/2nd/3rd Weight Sex Type Anes PTL Mi A1 A5 Name Clin SAB SAB 2009 SAB Comments:d&c Last Filed Vital Signs Vital Sign Reading Time Taken Comments Blood Pressure 153/80 08/07/2024 1:51 PM EDT Pulse 93 08/07/2024 1:51 PM EDT Temperature - - Respiratory Rate 12 08/07/2024 1:51 PM EDT Oxygen Saturation - - Inhaled Oxygen Concentration - - Weight 100 kg (221 lb) 08/20/2024 9:36 AM EDT Height 157.5 cm (5' 2 ) 08/20/2024 9:36 AM EDT Body Mass Index 40.42 08/20/2024 9:36 AM EDT Plan of Treatment Upcoming Encounters Date Type Department Care Team (Late st Contact Info) Description 09/19/2024 2:00 PM EDT Office Visit Orthopedic Surgery - [facility] [address] [phone] Nolberto Cruz, TOI [address] [address] Health Maintenance Due Date Last Done Comments [...] 02/25/2017 Hypertension/CHF/CAD Annual BMP Blood Test 04/24/2022 DTaP,Tdap,and Td Vaccines (2 - Td or Tdap) 04/17/2025 04/17/2015 Breast Cancer Screening 08/20/2026 08/21/19, 10/21/2020, 08/22/2018, Additional history exists Cervical Cancer Screening: HPV 08/07/2029 08/07/2024, 10/02/2020 Hepatitis C Screening Completed 01/02/2016 RSV Immunization Adult Patients Completed 02/28/2023 Zoster Vaccines Completed 05/12/2023, 02/28/2023 [...] age to complete this topic Meningococcal B Vaccine Aged Out No l onger eligible based on patient's age to complete [...] with routine gynecological exam Screening breast examination PAP SMEAR Routine 08/07/2024 2:32 PM EDT Encounter for well woman exam with routine gynecological exam Screening for malignant neoplasm of cervix HPV WITH REFLEX GENOTYPE Routine 08/07/2024 2:32 PM EDT Encounter for well woman exam with routine gynecological exam Screening for malignant neoplasm of cervix HM URINE ALBUMIN CREATININE RATIO Routine 02/25/2017 HEMOGLOBIN A1C Routine 02/25/2017 LIPID PANEL Routine 02/25/2017 HM HEPATITIS C SCREENING Routine 01/02/2016 DEPRESSION SCREENING Routine 08/19/2005 from Last 3 Months or Most Recently Relevant to Health Maintenance Results * MG Mammo Digital Screening w Louie bilat (08/20/2024 10:13 AM EDT) Anatomical Region Laterality Modality Breast Bilateral Mammography 08/20/2024 4:3 2 PM EDT Impressions 08/20/2024 4:39 PM EDT No mammographic evidence of malignancy. ?? No suspicious interval change. A negative mammogram in the presence of a clinically suspicious palpable abnormality does not preclude the possibility of malignancy or alter the indications for biopsy. ASSESSMENT: ?? BI-RADS 1: NEGATIVE RECOMMENDATION(S): 1: Routine screening mammogram BILATERAL in 1 year. [facility] location[facility] [address], [address] -------- FINAL REPORT -------- Dictated By: Sd Restrepo Dictated Date: 08/20/2024 16:32 ET Assigned Physician: Sd Restrepo Reviewed and Electronically Signed By: Sd Restrepo Signed Date: 08/20/2024 16:39 ET Workstation ID: [id number] Transcribed By: Self Edit Transcribed Date: 08/20/2024 [...] year. Mammography location: [facility] [address], [address] -------- FINAL REPORT -------- Dictated By: Sd Restrepo Dictated Date: 08/20/2024 16:32 ET Assigned Physician: Sd Restrepo Reviewed and Electronically Signed By: Sd Restrepo Signed Date: 08/20/2024 16:39 ET Workstation ID: [id number] Transcribed By: Self Edit Transcribed Date: 08/20/2024 16:32 ET Betty Matt CNM IMG BI PROCEDURES Final Resul t * HPV with reflex genotype (08/07/2024 2:32 PM EDT) HPV Negative Negative LAB MICROBIOLOGY METHOD 08/08/2024 1:09 PM EDT [facility] Brushing/Spatula Cervix uteri structure / Unknown 08/07/2024 2:32 PM EDT 08/08/2024 6:17 AM EDT Betty FOLEY LAB MOLECULAR DIAGNOSTICS ORD ERABLES Final Result Performing Organization Address City/[facility]/ZIP Co de Phone Number [facility] [address] [place] [address], [place] [phone] * Pap smear (08/07/2024 2:32 PM EDT) Interpretation Negative for intraepithelial lesion or malignancy 08/09/2024 8:45 AM EDT [facility] General Categorization Negative 08/09/2024 8:45 AM EDT [facility] Specimen Adequacy Satisfactory for evaluation, endocervical/rothman sformation zone component present 08/09/2024 8:45 AM EDT [facility] Pap Methodology Liquid Based Pap Test 08/09/2024 8:45 AM EDT [facility] Disclaimer The Pap test is a screening test which carries an inherent false negative rate. These test results should be correlated with the patient's clinical findings and history. This Pap test was processed using an automated screening system. Technical cytopathology services provided by [facility], at [address] [place] [address] (CLIA # [id number]/Lainey Connelly MD, Manager Customer.) 08/09/2024 8:45 AM EDT [facility] Console Pap Interpretation Reported 08/09/2024 8:45 AM EDT [facility] Brushing/Spatula Cervix uteri structure / Unknown 08/07/2024 2:32 PM EDT 08/07/2024 2:32 PM EDT Betty Matt [facility] CYTOLOGY ORDERABLES Final Result Performing Organization Address City/[facility]/ZIP Co de Phone Number [facility] [address] [place] [address], [place] [phone] * HM Urine Albumin Creatinine Ratio (02/25/2017) Pathologist [facility] Urine Albumin Creatinine Ratio abstracted Result [facility] Provider HEALTH MAINTENANCE Final Result * (ABNORMAL) Hemoglobin A1c (02/25/2017) [facility] Hemoglobin A1C 7.4(A) 4.0 - 6.0 % Blood Venous blood specimen / Unknown Result [facility] Provider LAB BLOOD ORDERABLES Jessy l Result * (ABNORMAL) Lipid panel (02/25/2017) [facility] LDL/HDL Ratio 4 0 - 4 Triglycerides 280(A) 0 - 150 mg/dL Cholesterol 110 0 - 200 mg/dL HDL 29(A) >=40 mg/dL LDL Cholesterol 25 0 - 100 mg/dL Blood Venous blood specimen / Unknown Result [facility] Provider LAB BLOOD ORDERABLES Jessy l Result * Hepatitis C Screening (01/02/2016) [facility] Hepatitis C Screening abstracted Result [facility] Provider HEALTH MAINTENANCE Final Result * Depression Screening (08/19/2005) [facility] Depression Screening abstracted Result [facility] Provider HEALTH MAINTENANCE Final Result from Last 3 Months or Most Recently Relevant to Health Maintenance Insurance [facility] [employer] Care Teams Stylist Apprentice Relationship Specialty Start Date End Date Samuel Hilario MD [address] [place] [address] PCP - General Internal Medicine 03/19/20
--- OUTSIDE RECORDS SUMMARY | 2024-08-22 14:11 | XMS_ITS ---
Author Organization [facility] Address [address] [place] [phone] Care Team Providers Care Revenue Investigator Name Role Phone ELLA MICHAEL Primary Care Provider REASON FOR VISIT Zinc Oxide Ointment Medications Medication SIG (Take, Route, Fr equency, Duration) Notes Start Date End Date Status Econazole Nitrate 1 % 1 application Exte rnally twice a day for 30 days 11/05/2022 Active Encounters Encounter Location Date Provider Diagnosis [address] [phone] 08/22/2024 ELLA MICHAEL Plan Of Treatment Medication Medication Name Sig Start Date Stop Date Notes Econazole Nitrate 1 % 1 application Exte rnally twice a day for 30 days 11/05/2022 Next Appt Details Provider Name:ELLA MICHAEL , 11/06/2024 09:30:00 AM, [address] [place] [address], [phone], Provider Name:ELLA MICHAEL , 11/26/2024 10:00:00 AM, [address] [place] [address], [phone], Progress Notes * ZOIE SWEENEY HDOB: 3 (63 yo F)Acc No.[id number]:08/22/2024 Patient:?ZOIE SWEENEY :1960???Age:63 Y???Sex:Female Address:[address] [place] [address] [place] [address] * Refills? Refill Econazole Nitrate Cream, 1 %, Externally, 1 Unspecified, 1 application, twice a day, 30 days, Refills=0 Subjective: * Chief Complaints: * ???Zinc Oxide Ointment * Medical History:? * Surgical History:? * Hospitalization/Major Diagno stic Procedure:? * Medications:? Objective: * Vitals:? * Physical Examination:? Assessment: Plan: * Treatment: * Procedure Codes:? * true * Date:? Generated for Hood sanchez/Nataliia/eTransmitting on:?08/22/2024 02:10 PM EDT
--- OUTSIDE RECORDS SUMMARY | 2024-08-22 14:11 | XMS_ITS | Data Portability ---
Author Organization [facility] - [facility], Allergy Address [address] [address] Care Team Providers Care Junior Project Manager Name Role Phone ELLA MICHAEL Primary Care Provider [phone] Assessment No assessment recorded. Plan of Treatment [...] Imaging MRI, brain, w/wo contrast - prefers [facility] eld 2023 024 david [facility] ([facility]), [address] [place], [address], 01/03/2024 14:20:34 Medication Orders clotrima zole-bet amethaso ne 1 %-0.05 % topical cream 2023 024 [facility] - [place], [place] - [id number], [address] [place], [address], 02/29/2024 15:08:30 Patient TargetsNo targets recorded. Patient InstructionsNo instructions recorded. Reason for Referral None Reported. Results Created Date Observation Date Name Description Value Unit Range Abnormal Flag Note LastModifiedBy Organization Detail LastModifiedTime 12/13/19 24 12/12/2023 MRI, brain + brain stem, w/wo contr ast [facility] Access ion Number : [id number] Patien t Name: Maribell Sweeney Record Number : [id number] Date of : 1960 Date of Exam: 2023 Referr ing Physic kellen: Duran Estes [facility] [address] [place] [address] Exam: MR Brain (C-/C+ ) CPT 23565 Room Descri ption: [facility] Verio 3.0T MR Brain (C-/C+ ) CPT 64956 INDICA TION / [facility] ON: [...] onical ly Signed By: Abdulaziz Parmar MD [facility] ([facility]) [address] [facility] [address], [place], [address], 12/31/2023 04:57:08 12/28/1907/18/2023 imagi ng/di agnos tic [...] contr ast No observ ation record ed. [facility] [address] [facility] [address], [place], [address], 06/14/2024 10:19:22 06/20/19 25 05/30/2024 MRI, cervi elina spine , w/o contr ast No observ ation record ed. [email or web address] Not Available 2024 16:10:50 Result Notes None recorded. Problems Name Problem SNOMED Code Status Onset Date Resolution Date Notes Provider Name and Address Organization Details Recorded Time Otalgia of left ear 4065312822 Active 2020 Otalgia, left ear; Note: Date Diagnosed : 04/08/2021 3:18 PM (H92.02) Not Available [facility] 4 02:15:47 Diffuse otitis externa 36289904 Active 2020 Diffuse otitis externa, left ear; Note: Date Diagnosed : 07/17/2020 5:26 PM (H60.312) Note: Date Diagnosed : 07/17/2020 5:26 PM (H60.312) Not Available [facility] 4 00:49:08 Pain of left temporoma ndibular joint 23047385098 860726 Active 2020 Arthralgi a of left temporoma ndibular joint; Note: Date Diagnosed : 04/08/2021 3:18 PM (M26.622) Not Available [facility] 4 02:15:35 Tinnitus of left ear 92870541830 06 Active 2020 Tinnitus, left ear; Note: Date Diagnosed : 04/08/2021 3:18 PM (H93.12) Not Available [facility] 4 02:13:36 Disorder of nasal sinus 1542479 Active 2019 Unspecifi ed disorder of nose and nasal sinuses; Note: Date Diagnosed : 12/11/2019 7:07 PM (J34.9) Not Available [facility] 4 02:14:50 Disorder of the nose 36964486 Active 2019 Unspecifi ed disorder of nose and nasal sinuses; Note: Date Diagnosed : 12/11/2019 7:07 PM (J34.9) Not Available [facility] 4 02:14:50 Dysphagia 20018133 Active 2017 Dysphagia , unspecifi ed; Note: Date Diagnosed : 10/26/2017 3:35 PM (R13.10) Not Available [facility] 4 02:15:17 Acute maxillary sinusitis 25279620 Active 2019 Acute maxillary sinusitis , unspecifi ed; Note: Date Diagnosed : 12/11/2019 7:07 PM (J01.00) Not Available [facility] 4 02:13:26 Itching of skin 856711200 Active 2019 Pruritus, unspecifi ed; Note: Date Diagnosed : 12/17/2019 9:41 AM (L29.9) Not Available [facility] 4 02:15:04 Gastroeso phageal reflux disease without esophagit is 050920432 Active 2017 Gastro-es ophageal reflux disease without esophagit is; Note: Date Diagnosed : 10/26/2017 3:36 PM (K21.9) Not Available [facility] 4 02:13:57 Sensorine ural hearing loss 60179024 Active 2020 Sensorine ural hearing loss, unilatera l, left ear, with unrestric trisha hearing on the contralat eral side; Note: Date Diagnosed : 08/04/2020 11:03 AM (H90.42) Not Available [facility] 4 02:14:29 Trigemina l neuralgia 70158920 Active 2023 DURAN NELSON MD [address] [place] [address], [facility] [place], [address] , [facility] - [facility] 4 18:40:58 Localized masticato ry muscle soreness 269428277 Active 2023 Myalgia of masticati on muscle; Note: Date Diagnosed : 07/26/2023 2:53 PM (M79.11) Not Available [facility] 02:15:11 Type 2 diabetes mellitus without complicat ion 526441841 Active 2023 Type 2 diabetes mellitus without complicat ions; Note: Date Diagnosed : 06/13/2023 1:31 PM (E11.9) Not Available [facility] 02:15:17 Problem Notes None recorded. Procedures Surgical History None recorded. Imaging Results Imaging Date Name Status LastModified by Organiz [facility] Details LastModified Time 12/12/2023 MRI, brain + brain stem, w/wo contrast completed [facility] ([facility]) [address], [place], [address], 12/31/2023 04:57:08 07/18/2023 imaging/diagn ostic result completed Information not available 12/28/2023 03:26:08 07/18/2023 imaging/diagn ostic result completed Information not available 12/28/2023 03:26:11 07/19/2023 imaging/diagn ostic result completed Information not available 12/28/2023 03:26:12 08/04/2020 imaging/diagn ostic result completed Information not available 12/28/2023 03:26:14 04/08/2021 imaging/diagn ostic result completed Information not available 12/28/2023 03:26:50 05/30/2024 MRI, cervical spine, w/o contrast completed [facility] ([facility]) [address] [facility] [address], [place], [address], 06/14/2024 10:19:22 05/30/2024 MRI, cervical spine, w/o contrast completed [email or web address] Information not available 06/20/2024 16:10:50 Procedure Notes None recorded. Medical Equipment None Reported. Allergies Allergen ID Allergen Name Allergen Category Reaction Reaction Severity Criticality Documentation Date Start Date Code Code System Note Provider Name and Address Organization Details Recorded Time 52132 aspirin medicatio n other Not available Not available 09/20/2023 1191 RxNorm React ion: unkno wn, unspe cifie d;; Not Available [facility] 4 00:49:02 72039 acetamino phen / oxycodone medicatio n other Not available Not available 09/20/2023 74152 3 RxNorm React ion: unkno wn, unspe cifie d;; Not Available [facility] 4 00:49:48 12025 naproxen medicatio n other Not available Not available 09/20/2023 7258 RxNorm React ion: unkno wn, unspe cifie d;; Not Available [facility] 4 00:49:48 Medications Name Sig Start [...] a day 06/14 completed Medicati on ID: 514226 D uration Value: 10 Brand Name: ciproflo [...] mg tablet 2017 active Medicati on ID: 170225 D uration Value: 30 Brand Name: cyprohep [...] topical solution 01/11 completed Medicati on ID: 963670 D uration Value: 14 Prescri bed By [...] small amount 2020 active Medicati on ID: 391248 D uration Value: 7 Prescri bed By [...] drops,randy pension 01/11 completed Medicati on ID: 636308 Aquilino william d By Name: AZUCENA Andrade [...] 5 drop 2020 active Medicati on ID: 504277 D uration Value: 30 Prescri bed By [...] by mouth 10/19 completed Medicati on ID: 920852 D uration Value: 30 Prescri bed By Name: Paula KrugerVINAY nd Name: omeprazo le Send Method: E-Prescr ibed Sub s Allowed: subs OK Speci al Instruct ion: Take 1 tablet by mouth every day before a meal Med icationG enericNa me: omeprazo le Medic ation ID: [id number] D uration Value: 30 Prescri bed By [...] Available No t Available Comfort EZ Pen [place] 32 gauge x 5/32 USE TO INJECT [...] both nostrils 2019 active Medicati on ID: 825982 D uration Value: 30 Prescri bed By [...] Available No t Available FreeStyle Antonio 2 Naches USE DIRECTED active Not Available Not Available [...] Updated DateTime 12/27/2023 157.48 cm 35.5 kg/m2 02190.92 g Nyla Rowland [place] - [facility] 12/27/2023 13:07:29 Date Recorded Body height Body mass index (BMI) Body weight Provider Name and Address Organization Details Last Updated DateTime 01/12/2024 157.48 cm 35.5 kg/m2 97616.92 g Nyla Rowland [place] - [facility] 01/12/2024 13:05:16 Date Recorded Body height Body mass index (BMI) Body weight Provider Name and Address Organization Details Last Updated DateTime 06/14/2024 157.48 cm 36.9 kg/m2 40663.66 g Nyla Rowland [place] - [facility] 06/14/2024 09:18:50 Date Recorded Body height Body mass index (BMI) Body weight Provider Name and Address Organization Details Last Updated DateTime 10/20/2023 157.48 cm 38.2 kg/m2 76383.81 g Nyla Rowland [place] - [facility] 10/20/2023 13:21:31 Social History None recorded. [...] Note [id number] DURAN NELSON MD [facility] on [address] [place] [address] 10/20/2023 13:04:44 10/20/2023 14:59:17 Otalgia of left ear 2425063813 H92.02 63 yo F presents for follow up of her left ear. She is here for scheduled cerumen removal, but she is concerned about persistent pain. She was seen in [place] at the end of January and had [...] of her neurology visit. Trigeminal neuralgia 316 68809 G50.0 [id number] DURAN NELSON MD [facility] on [address] [place] [address] 12/27/2023 13:00:52 12/27/2023 13:42:13 Diffuse otitis externa 20144914 H60.312 Otalgia of left ear 1010 379534 H92.02 63 yo F presents for follow up of her left ear. She is here for scheduled cerumen removal, but she is concerned about persistent pain. She was seen in [place] at the end of January and had [...] Lotrisone into the canal. Follow-up 2 weeks. [id number] DURAN NELSON MD [facility] on [address] [place] [address], [place] [address] 01/12/2024 12:56:02 01/12/2024 14:21:07 Otalgia of left ear 6122859745 H92.02 63 yo F presents for follow up of her left ear. Lotrisone is gone. No infection. Middle ear aerated. she can continue the vinegar drops for maintenanc e as lotrisone sparingly to the EAC meatus. Follow up three months for reassessme nt and cleaning. [id number] DURAN NELSON MD [facility] on [address] [place] [address], [place] [address] 06/14/2024 09:03:19 06/14/2024 09:30:18 Otalgia of left ear 0609080290 H92.02 63 yo F presents for follow [...] Yost Member ID Guarantor Name 10/20/[address] [facility] [id number] Maribell H Colon [id number] 1 Maribell H Colon 12/27/[address] [facility] [id number] Maribell H Colon [id number] 1 Maribell H Colon 01/12/[address] [facility] [id number] Maribell [place] Colon [id number] 1 Maribell Blackwell Colon 06/14/[address] [facility] [id number] Maribell [place] Colon [id number] 1 Maribell Blackwell Colon Notes Date Note Type Note Provider Name and Address Organization Details Recorded Time 10/20/2023 text/html 63 yo F presents for follow up of her left ear. She is here for scheduled cerumen removal, but she is concerned about persistent pain. She was seen in [place] at the end of January and had [...] a CT scan of the neck at [place] which did not show any sign of [...] mouth to to tightness DURAN NELSON MD [address] [place] [address], [place], [address], [place] - [facility] [place] 10/30/2023 18:46:54 12/27/2023 text/html 63-year-old luis carlos bull presents today for follow-up and reassessment of her ear. PV:63 yo F presents for follow up of her left ear. She is here for scheduled cerumen removal, but she is concerned about persistent pain. She was seen in [place] at the end of January and had [...] a CT scan of the neck at [place] which did not show any sign of [...] mouth to to tightness DURAN NELSON MD [address] [place] [address], [place], [address], [place] - [facility] 01/03/2024 08:17:01 01/12/2024 text/html 63 yo F presents for follow up after lotrisone injection on the left. She does feel improvement in left otalgia. \ She was seen in [place] at the end of January and had [...] on the left. DURAN NELSON MD 100 [facility],[address], [address], [place] - [facility] 01/18/2024 06:10:12 06/14/2024 text/html Oxcarbazepine helping [...] recent AIC 7.4. DURAN NELSON MD 100 [facility],[address], [address], [place] - [facility] 06/14/2024 09:30:26 OBGyn Episode No OBEpisode recorded.
--- OUTSIDE RECORDS SUMMARY | 2024-08-22 14:11 | XMS_ITS | Clinical Summary ---
Author Organization [facility] Address [address] [place] [phone] Phone Care Team Providers Care Director Of Housing And Energy Services Name Role Phone Samuel Hilario MD Primary [...] DAY NEEDED 1 Active Comfort EZ Pen [place] 32G X 4 MM [facility] 2 Active Easy Comfort Lancets [facility] 2 Active gemfibrozil (LOPID) 600 MG tablet [...] Active Problems Problem Noted Date Diagnosed Date Dysuria 08/01/2024 Left flank pain 08/01/2024 Persistent proteinuria 02/06/2024 Stage 3a chronic kidney [...] incontinence 03/29/2014 Overview (09/06/2022): Darline. Changed to [place] Panic attack 03/29/2014 Overview (09/06/2022): Sees psych [...] since October previous pcp dr ANA Echeverria recntl u/s negative in [place] 08/16/05 plastic sugeon for wound care s/p amputation.sees dr loyd for infection suresh gray is her plastic surgeon just finished reconstruciton Encounters Date Type Department Care Team Description 08/01/2024 11:00 AM EDT Office Visit [facility] [address] [phone] Racheal Wood ARNP Stage 3a chronic kidney disease (HCC) (Primary Dx); Hypertension; Dysuria; Left flank pain 07/07/2024 Orders Only [facility] [address] [address] Racheal Wood ARNP Stage 3a chronic kidney disease (HCC); Hypertension 06/09/2024 Orders Only [facility] [address] [address] Racheal Wood ARNP Stage 3a [...] Sign Reading Time Taken Comments Blood Pressure 130/80 08/01/2024 11:44 AM EDT Pulse 77 08/01/2024 11:44 AM EDT Temperature - - Respiratory Rate - - Oxygen Saturation 98% 08/01/2024 11:44 AM EDT Inhaled Oxygen Concentration - - Weight 98 kg (216 lb) 08/01/2024 11:44 AM EDT Height 157.5 cm (5' 2 ) 08/18/2021 11:20 AM EDT Body Mass Index 39.51 08/18/2021 11:20 AM EDT Plan of Treatment Upcoming Encounters Date Type Department Care Team (Late st Contact Info) Description 02/04/2025 11:15 AM EDT Office Visit [facility] P.CLloyd [address] [address] Racheal Wood ARNP [address] [address] Health Maintenance Due Date Last Done Comments Breast Cancer Screening 1960 Colorectal Cancer Screening: Annual FOBT 09/25/2011 Colorectal Cancer Screening: Colonoscopy 09/25/2011 Colorectal Cancer Screening: Sigmoidoscopy 09/25/2011 Pneumococcal Vaccine: 50+ Years (2 of 2 - PCV) 04/29/2015 04/29/2014 Diabetes: Ophthalmology Exam 05/26/2021 09/25/2009 Diabetes: Pedal Pulse Checked 05/26/2021 Diabetes: Sensory Foot Exam 05/26/2021 Diabetes: Visual Foot Exam 05/26/2021 Diabetes: Hemoglobin A1C 09/14/2021 022, 02/25/2017 Pneumococcal Vaccine: Peds ( 0 to 5 Years) and At-Risk Patients (6 to 49 Years) Discontinued 04/29/2014 Influenza Vaccine Completed 03/08/2024, 02/02/2017 Hepatitis B Vaccine Aged Out No longe r eligible based on patient's age to complete this topic Procedures Procedure Name Priority Date/Time Associated Diagnosis Comments PROTEIN / CREATININE RATIO, URINE Routine 08/01/2024 9:51 AM EDT Stage 3a chronic kidney disease (HCC) Hypertension CBC Routine 08/01/2024 9:51 AM EDT Stage 3a chronic kidney disease (HCC) Hypertension RENAL FUNCTION PANEL Routine 08/01/2024 9:51 AM EDT Stage 3a chronic kidney disease (HCC) Hypertension PTH, INTACT Routine 08/01/2024 9:51 AM EDT Stage 3a chronic kidney disease (HCC) Hypertension HEMOGLOBIN A1C Routine 06/17/2021 4:28 PM EST Type 2 diabetes mellitus with diabetic chronic kidney disease (HCC) from Last 3 Months or Most Recently Relevant to Health Maintenance Results * Urine Protein / creatinine ratio (08/01/2024 9:51 AM EDT) Creatinine, Ur 91.5 Not Estab. mg/dL [facility] Protein, Ur 15.4 Not Estab. mg/dL [facility] Urine Protein/Creatin ine Ratio 168 0 - 200 mg/g creat [facility] Urine (Urine, Clean Catch) 08/01/2024 9:51 AM EDT 08/01/2024 Racheal RUCKER LAB URINE ORDERABLES Final Result [facility] [address] [place] [address] * CBC (08/01/2024 9:51 AM EDT) WBC 8.6 3.4 - 10.8 x10E3/uL [facility] RBC 4.26 3.77 - 5.28 x10E6/uL [facility] Hemoglobin 13.0 11.1 - 15.9 g/dL [facility] Hematocrit 39.2 34.0 - 46.6 % [facility] MCV 92 79 - 97 fL [facility] MCH 30.5 26.6 - 33.0 pg [facility] MCHC 33.2 31.5 - 35.7 g/dL [facility] RDW 12.3 11.7 - 15.4 % [facility] Platelets 243 150 - 450 x10E3/uL [facility] Blood (Blood, Venous) 08/01/2024 9:51 AM EDT 08/01/2024 Racheal [facility] LAB BLOOD ORDERABLES Final Result [facility] [address] [place] [address] * PTH, intact (08/01/2024 9:51 AM EDT) Pathologist [facility] PTH 28 15 - 65 pg/mL [facility] Blood (Blood, Venous) 08/01/2024 9:51 AM EDT 08/01/2024 Racheal [facility] LAB BLOOD ORDERABLES Final Result Performing Organization Address [facility]/ZIP Co de Phone Number [facility] [address] [place] [address] * (ABNORMAL) Renal function panel (08/01/2024 9:51 AM EDT) Pathologist [facility] Glucose 100(H) 70 - 99 mg/dL [facility] BUN 19 8 - 27 mg/dL [facility] Creatinine 1.28(H) 0.57 - 1.00 mg/dL [facility] eGFR CKD-EPI CR 2020 48(L) >59 mL/min/1.7 3 [facility] BUN/Creatinine Ratio 15 12 - 28 [facility] Sodium 140 134 - 144 mmol/L [facility] Potassium 4.7 3.5 - 5.2 mmol/L [facility] Chloride 102 96 - 106 mmol/L [facility] Bicarbonate (CO2) 24 20 - 29 mmol/L [facility] Calcium 9.8 8.7 - 10.3 mg/dL [facility] Phosphorus 5.3(H) 3.0 - 4.3 mg/dL [facility] Albumin 4.1 3.9 - 4.9 g/dL [facility] Blood (Blood, Venous) 08/01/2024 9:51 AM EDT 08/01/2024 Racheal Israel [facility] LAB BLOOD ORDERABLES Final Result [facility] [address] [place] [address] * (ABNORMAL) Hemoglobin A1c (06/17/2021 4:28 PM EST) Hemoglobin A1C 9.2(H) (4.0-5.6) % [facility] Comment: MONITORING: In known diabetic patients, hemoglobin A1c targets should be discussed with health care provider. DIAGNOSTIC USE: ??The [place] Diabetes Association (ADA) and the World Health [...] Supplement 1 Testing performed or reported by [facility], a Service of [facility], [address] [place] [address] Bertin Bethea MD, Investment Advisor [facility]# [id number] Blood (Blood, Venous) 06/17/2021 4:28 PM EST 06/17/2021 4:29 PM EST Feroz Lakhani MD LAB BLOOD ORDERABLES Final Re sult [facility] from Last 3 Months or Most Recently Relevant to Health Maintenance [place] [address] Medicaid Care Teams Director Of Housing And Energy Services Relationship Specialty Start Date End Date Samuel Hilario MD [address] [place] [address] PCP - General Internal Medicine 05/26/21
--- OUTSIDE RECORDS SUMMARY | 2024-08-22 14:12 | XMS_ITS ---
Author Organization [facility] Address [address] [place] [address] [address] [place] [address] Care Team Providers Care Aircraft Mechanic Armament Name Role Phone JAZMINAme JARAMILLO Primary Care Provider Adolfo Vilchis [phone] REASON FOR VISIT returning call regarding labs Encounters Encounter Location Date Provider Diagnosis [address] [place] [address] 08/16/2024 Adolfo Vilchis Plan Of Treatment Next Appt Details Provider Name:JARAMILLOMARLON WUAme , 11/06/2024 09:30:00 AM, [address] [place] [address], [place], [address], Provider Name:ELLA MICHAEL , 11/26/2024 10:00:00 AM, [address] [place] [address], [place], [address], Progress Notes * ZOIE TAYLOR HDOB: 3 (63 yo F)Acc No.[id number]:08/16/2024 Patient:?ZOIE TAYLOR :1960???Age:63 Y???Sex:Female Address:[address] [place] [address] * true * Date:? Generated for Printi ng/Faramag/eTransmitting on:?08/22/2024 02:12 PM EDT
--- OUTSIDE RECORDS SUMMARY | 2024-08-22 14:12 | XMS_ITS | Patient Health Record ---
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 Prediabetes: 5.7 - 6.4 Diabetes: >6.4 Glycemic control for adults with diabetes: <7.0 HPV WITH REFLEX GENOTYPE Reviewed date:08/08/2024 01:37:20 PM Interpretation: Performing Lab: Notes/Report: HPV Negative Negative MG MAMMO DIGITAL SCREENING W TONG BILAT (Not yet reviewed by provider) Interpretation: Performing Lab: Notes/Report: Note See Note [facility], a member of [employer] Patient Name: MARIBELL TAYLOR Date of : 1960 Reason for Exam: Breast cancer screen, avg risk, asymptomatic (Age => 42y) Exam Date: 08/20/2024 [id number] EST Report Status: Final Ordering Provider: TONY RAPP PCP: ELLA MICHAEL EXAM: SCREENING MAMMOGRAPHY, BILATERAL HISTORY: SCREENING. Paternal aunt diagnosed with breast cancer age 39 COMPARISON: 10/21/20 TECHNIQUE: Synthesized CC and MLO projections of each breast. Tomosynthesis of each breast in the CC and MLO projections. ADDITIONAL IMAGING: None Computer-aided detection was employed with the iCAD ProFound AI 3-D. TISSUE DENSITY: The breasts are almost entirely fatty. (BI-RADS Category A) FINDINGS: RIGHT BREAST: No suspicious mass. No suspicious calcification. No distortion. No additional suspicious right breast findings LEFT BREAST: No suspicious mass. No suspicious calcification. No distortion. No additional suspicious left breast findings IMPRESSION: No mammographic evidence of malignancy. No suspicious interval change. A negative mammogram in the presence of a clinically suspicious palpable abnormality does not preclude the possibility of malignancy or alter the indications for biopsy. ASSESSMENT: BI-RADS 1: NEGATIVE RECOMMENDATION(S): 1: Routine screening mammogram BILATERAL in 1 year. [facility]amm[facility] location[facility] [address], [address] -------- FINAL REPOR T -------- Dictated By: Sd Restrepo Dictated Date: 08/20/2024 16:32 ET Assigned Physician: Sd Restrepo Reviewed and Electronically Signed By: Sd Restrepo Signed Date: 08/20/2024 16:39 ET Workstation ID: [id number] Transcribed By: Self Edit Transcribed Date: 08/20/2024 16:32 ET PAP SMEAR Reviewed date:08/09/2024 01:14:25 PM Interpretation: Performing Lab: Notes/Report: Interpretation Negative for intraepithelial lesion or malignancy Specimen Adequacy Satisfactory for evaluation, endocervical/transfor mation zone component present Pap Methodology Liquid Based Pap Test Disclaimer The Pap test is a screening test which carries an inherent false negative rate. These test results should be correlated with the patient's clinical findings and history. This Pap test was processed using an automated screening system. Technical cytopathology services provided by [facility], at [address] [place] [address], [place] [address] ([facility] # [id number]/Omi Connelly MD, Switchman.) Console Pap Interpretation Reported General Categorization Negative Acetaminophen, MS, Ur RFX Reviewed date:11/21/2023 08:01:23 AM Interpretation: Performing Lab:[facility], [address] [place] [address], Phone - [phone], Director - Sheri Notes/Report: ANALGESICS/NSAIDS +POSITIVE+ Acetaminophen PRESENT ToxAssure Flex 23, Urine-[id number] Reviewed date:11/23/2023 09:11:12 AM Interpretation: Performing Lab:[facility], [address] [place] [address], Phone - [phone], Director - Sheri Notes/Report: Summary Report FINAL ===== Acetaminophen, MS, Ur RFX ToxAssure Flex 23, Urine ===== Test Result Flag Units Drug Present Oxazepam 292 ng/mg creat Temazepam >1639 ng/mg creat Oxazepam and temazepam are expected metabolites of diazepam. Oxazepam is also an expected metabolite of other benzodiazepine drugs, including chlordiazepoxide, prazepam, clorazepate, halazepam, and temazepam. Oxazepam and temazepam are available as scheduled prescription medications. Lorazepam 801 ng/mg creat Source of lorazepam is a scheduled prescription medication. Acetaminophen PRESENT ===== Test Result Flag Units Ref Range Creatinine 122 mg/dL >=20 ===== Declared Medications: Medication list was not provided. ===== For clinical consultation, please call . ===== Creatinine 122 REFERENCE RANGE : Ref Range>=20 [...] Parent Drug Detected Metabolites Zolpidem: Zolpidem Acid Zopiclone/Eszopiclone : Amino Chloropyridine Zaleplon: None ACETAMINOPHEN IA CUTOFF:5.0 ug/mL Further testing indicated MISCELLANEOUS Negative Dextromethorphan Not Detected Dextrorphan/Levorphanol Not Detected Expected metabolism of Dextromethorphan and Dextrorphan/Levorphan ol: Parent Drug Detected Metabolites Dextromethorphan: Dextrorphan Dextrorphan/Levorphan ol: None Dextrophan cannot be distinguished from Levorphanol by the method used for analysis. NICOTINE METABOLITE Negative Cotinine Not Detected Hemoglobin [id number] Reviewed date:02/20/2024 08:28:37 AM Interpretation: Performing Lab:[facility], [address] [place] [address], Phone - [phone], Director - MDHelgadry Notes/Report: Hemoglobin A1c 6.1 4.8-5.6 % . Prediabetes: 5.7 - 6.4 Diabetes: >6.4 Glycemic control for adults with diabetes: <7.0 Comp. Metabolic Panel ([id number] Reviewed date:08/04/2024 01:36:37 PM Interpretation: Performing Lab:[facility], [address] [place] [address], Phone - [phone], Director - MDHelgadry Notes/Report: Glucose 101 70-99 mg/dL BUN 19 8-27 mg/dL Creatinine 1.31 0.57-1.00 mg/dL eGFR 46 >59 mL/min/1.73 BUN/Creatinine Ratio 15 12-28 Sodium 141 134-144 mmol/L Potassium 4.7 3.5-5.2 mmol/L Chloride 101 96-106 mmol/L Carbon Dioxide, Total 24 20-29 mmol/L Calcium 9.8 8.7-10.3 mg/dL Protein, Total 6.2 6.0-8.5 g/dL Albumin 4.1 3.9-4.9 g/dL Globulin, Total 2.1 1.5-4.5 g/dL Bilirubin, Total 0.2 0.0-1.2 mg/dL Alkaline Phosphatase 100 44-121 IU/L AST (SGOT) 29 0-40 IU/L ALT (SGPT) 46 0-32 IU/L Lipid [id number] Reviewed date:08/16/2024 04:22:18 PM Interpretation: Performing Lab:[facility] [address] [place] [address], Phone - [phone], Director - MDHelgadry Notes/Report: Cholesterol, Total 132 100-199 mg/dL Triglycerides 228 0-149 mg/dL HDL Cholesterol 38 >39 mg/dL VLDL Cholesterol Timothy 37 5-40 mg/dL LDL Chol Calc (NIH) 57 0-99 mg/dL Albumin/Creatinine Ratio,Uri ne-[id number] Reviewed date:08/04/2024 01:31:32 PM Interpretation: Performing Lab:[facility] [address] [place] [address], Phone - [phone], Director - MDJodry Notes/Report: Creatinine, Urine 88.2 Not Estab. mg/dL Albumin, Urine 19.2 Not Estab. ug/mL Alb/Creat Ratio 22 0-29 mg/g creat Normal: 0 - 29 Moderately increased: 30 - 300 Severely increased: >300 Hemoglobin [id number] Reviewed date:08/04/2024 01:31:25 PM Interpretation: Performing Lab:[facility] [place], [address], [place], Phone - [phone], Director - Sonyay Notes/Report: Hemoglobin A1c 7.1 4.8-5.6 % . Prediabetes: 5.7 - 6.4 Diabetes: >6.4 Glycemic control for adults with diabetes: <7.0 Reason For Referral Reason essential tremors- D r. [place] Diagnosis 1 Essential tremor (G2 5.0) Referral Organization [facility] Referring Provider First Name ELLA Referring Provider Last Name [facility] Referring Provider Speciality Internal edicine Referred Provider Specialty Neurology General Notes Referral faxed - Dep t will call patient for scheduling.Janene Latraya 09/27/2023 02:58:10 PM > Referral Priority Routine Reason Evaluation and manag ement - Dr. Haley Diagnosis 1 Arthralgia of tempor omandibular joint, unspecified side (M26.629) Referral Organization [facility] Referring Provider First Name ELLA Referring Provider Last Name [facility] Referring Provider Speciality Internal edicine Referred Provider Specialty Physical Med icine and Rehabilitation General Notes Referral faxed - Dep t will call patient for scheduling.Janene Latraya 09/21/2023 12:07:16 PM > Referral Priority Routine Reason Evaluation and manag ement - Dr Cruz Diagnosis 1 Other hammer toe(s) (acquired), right foot (M20.41) Referral Organization [facility] Referring Provider First Name ELLA Referring Provider Last Name [facility] Referring Provider Speciality Internal edicine Referred Provider Specialty Podiatry General Notes Referral sent to [facility] in [place] - Office will call patient for scheduling.Janene Latraya 02/02/2024 09:36:19 AM > Referral Priority Routine Reason Evaluation and manag ement - Dr Iraheta Diagnosis 1 Radiculopathy, lumbo sacral region (M54.17) Diagnosis 2 Pain in right should er (M25.511) Diagnosis 3 Pain in left wrist ( M25.532) Diagnosis 4 Pain in left hand (M 79.642) Diagnosis 5 Pain in right foot ( M79.671) Diagnosis 6 Low back pain (M54.5 ) Referral Organization [facility] Referring Provider First Name ELLA Referring Provider Last Name FERNANDA Referring Provider Speciality Internal M edicine Referred Provider Specialty Pain Medicin e General Notes Referral sent to [facility] in [place] - Office will call patient for scheduling., Naty Watters 02/21/2024 10:54:41 AM > Referral Priority Routine Medications Medication SIG (Take, Route, Frequency, Duration) Notes Start Date End Date Status tiZANidine HCl 4 mg 1 tablet oral three times a day prn for 10 days Active Fluticasone Propionate 50 MCG/ACT SPRAY TWICE INTO EACH NOSTRIL ONCE A DAY for 30 Unknown Montelukast Sodium 10 mg TAKE 1 TABLET B Y MOUTH ONCE A DAY for 30 days Active Zofran 4 MG as directed Orally for 7 days 07/07/2018 Unknown Fluconazole 50 MG 1 tablet Orally Daily for 10 day(s) 06/16/2020 Unknown clonazePAM 1 MG 2 tablets in the am and 2 tablets in pm Orally twice a day CHD Unknown Losartan Potassium 100 mg TAKE 1 TABLET BY MOUTH ONCE DAILY for 30 days Active Diflucan 150 MG 1 tablet Orally daily for 3 days 07/31/2024 Active Ezetimibe 10 mg TAKE 1 TABLET BY MOUTH ONCE DAILY for 30 days Active Admelog SoloStar 100 UNIT/ML 11 units Subcutaneous three times a day for 30 Unknown Eliquis 5 mg TAKE ONE TABLET BY MOUTH two (2) times a day 30 for 30 Active Vitamin D3 50 MCG (1999 UT) TAKE 1 CAPSULE BY MOUTH ONCE DAILY for 30 days Active Atorvastatin Calcium 10 mg TAKE 1 TABLET BY MOUTH ONCE DAILY for 30 days Active amLODIPine Besylate 5 mg TAKE ONE TABLET BY MOUTH ONCE A DAY for 30 Active Azithromycin 250 MG 2 tablet day one 1 tab daily for 4 days Orally daily for 5 days 03/19/2022 Not-Taking metroNIDAZOLE 0.75 % _insert 1 APPLICATORFUL VAGINALLY ONCE A DAY AT BEDTIME FOR 10 DAYS for 10 Unknown Tessalon Perles 100 MG 1 capsule as need ed Orally Three times a day for 7 days 03/19/2022 Not-Taking Benzonatate 100 MG 1 capsule as needed Orally Three times a day for 7 days 10/25/2022 Not-Taking Trulicity 1.5 MG/0.5ML inject the conten t of 1 pen under the skin each week as directed Subcutaneous weekly for 30 days 02/23/2022 Not-Taking Trulicity 3 MG/0.5ML inject the content of 1 pen under the skin each week as directed Subcutaneous weekly for 30 days 02/23/2022 Not-Taking LORazepam 1 MG 1 tablet at bedtime as needed Orally Once a day Active Insulin Lispro (1 Unit Dial) 100 unit/mL INJECT 30 UNITS UNDER THE SKIN 3 (THREE) TIMES A DAY for 30 Active Easy Touch Lancets 28G - as directed for 30 days Active Albuterol Sulfate HFA 108 (90 Base) MCG/ACT 2 puffs as needed Inhalation every 6 hrs Active Azelastine HCl 0.1 % 1 puff in each nostril Nasally Twice a day Active Baclofen 10 MG 1 tablet as needed Orally Twice a day Active Diclofenac Sodium 1 % as directed Externally 2 times a day for 30 days Active OXcarbazepine 150 MG 1 tablet Orally Onc e a day Active Fluconazole 150 mg TAKE 1 TABLET BY MOUTH EVERY 3 DAYS for 3 Active Ozempic (0.25 or 0.5 MG/DOSE) 2 MG/3ML as directed Subcutaneous once a week Active Omeprazole 40 MG 1 capsule 1/2 to 1 hour before morning meal Orally Once a day for 30 days Active Ventolin HFA 108 (90 Base) MCG/ACT 1 puff as needed Inhalation every 4 hrs Active EPINEPHrine 0.3 MG/0.3ML INJECT INTRAMUSCULARLY THE CONTENT OF 1 pen as indicated by anaphylaxis for 7 Active Lidocaine 5 % 1 patch remove after 12 hours Externally Once a day for 90 days Active Alcohol Pads 70 % USE TOPICALLY THREE TIMES DAILY for 30 days Active True Comfort Pen Dawson 32G X 4 MM USE TO INJECT insulin 5 TIMES A DAY for 25 Active True Comfort Safety Lancets - USE TO TEST FINGER STICK BLOOD SUGAR 3 (THREE) TIMES A DAY for 30 Active hydrOXYzine HCl 25 MG 1 tablet Orally On ce a day for 90 days Active Metoprolol Succinate ER 100 mg TAKE 1 TABLET BY MOUTH ONCE DAILY for 30 Active metFORMIN HCl 850 mg TAKE 1 TABLET BY MOUTH two (2) times a day. TAKE WITH MEALS for 30 Active FreeStyle Lite - as directed to check blood sugars Dx: E11.9 in vitro three times daily for 30 days 02/24/2018 Active Myrbetriq 50 MG 1 tablet Orally twice a day for 30 Urologist Active Serevent Diskus 50 MCG/DOSE Inhale 1 Puff into the lungs 2 times daily for 30 days. for 30 Active Metoclopramide HCl 10 MG 1 tablet before meals Orally Twice a day for 30 days 11/01/2022 Active Nebulizer/Tubing/Mouthpie ce - as directed for treatment of Dx: J45.30 inhalation every 4-6 hours prn for 30 days 06/26/2019 Active predniSONE 20 MG 1 tablet Orally Once a day for 7 days 02/29/2024 Not-Taking Flovent HFA 110 MCG/ACT 2 puffs Inhalati on 2 times a day,Instr:rinse mouth and throat after use for 30 Active Benzonatate 100 MG 1 capsule as needed Orally Three times a day for 14 days 02/29/2024 Not-Taking Xopenex 1.25 MG/3ML 3 ml Inhalation three times daily for 15 Active Doxycycline Hyclate 100 MG 1 capsule Orally Twice a day for 7 days 12/06/2023 Not-Taking EpiPen 2-Amadeo 0.3 MG/0.3ML as directed Injection once as needed for 30 days 10/02/2020 Active predniSONE 20 MG 1 tablet Orally Once a day for 7 days 12/06/2023 Not-Taking Carafate 1 GM/10ML 10 ml on an empty stomach Orally Twice a day for 30 day(s) 05/04/2021 Not-Taking Ofloxacin 0.3 % 10 drops into affected ear Otic Once a day for 7 days 03/18/2023 Not-Taking Mometasone Furoate 0.1 % Apply sparingly first before calcipotriene twice a day to affected areas on arms and chest as needed 30 30 for 30 Active Vflzqrdg-Dqzsfvzmt-FR 1 % 4 drops into affected ear Otic Three times a day for 7 days 03/18/2023 Not-Taking Cyproheptadine HCl 4 MG TAKE ONE TABLET BY MOUTH 3 (THREE) TIMES A DAY NEEDED FOR ITCH 30 30 for 30 Active Tobramycin 0.3 % 1 drop into affected eye Ophthalmic every 4 hrs for 7 days 02/01/2024 Not-Taking Temazepam 30 MG 1 capsule at bedtime as needed Orally Once a day Not-Taking ProAir HFA 108 (90 Base) MCG/ACT 2 puffs Inhalation Every 4 hours,PRN:for wheezing for 17 Not-Taking Citalopram Hydrobromide 40 MG 2 tablet Orally Once a day for 30 day(s) Psy Active Fwtfyfqh-Rnsrxumza-EE 1 % 4 drops into affected ear Otic Three times a day for 7 days 05/31/2023 Active Benzonatate 100 MG 1 capsule as needed Orally Three times a day for 7 days 12/06/2023 Not-Taking Loratadine 10 mg TAKE 1 TABLET BY MOUTH ONCE DAILY for 30 Active oxyCODONE HCl 30 mg TAKE 1 TABLET BY MOUTH 3 (THREE) TIMES A DAY NEEDED FOR PAIN by mouth 3 times a day for 14 days 01/02/2024 Not-Taking FreeStyle Lite Test - USE TO TEST FINGER STICK BLOOD SUGAR 3 (THREE) TIMES A DAY for 30 Active Cephalexin 500 MG 1 capsule Orally every 8 hours for 7 days 09/21/2023 Not-Taking predniSONE 10 MG 1 tablet Orally Once a day for 7 days 10/06/2023 Not-Taking Omeprazole 20 mg TAKE 1 CAPSULE BY MOUTH 30 MINUTES BEFORE morning meal for 30 Active hydroCHLOROthiazide 25 mg TAKE 1 TABLET BY MOUTH EVERY MORNING for 30 Active Lantus SoloStar 100 UNIT/ML INJECT 90 UNITS UNDER THE SKIN ONCE A DAY DIRECTED for 30 Active Meclizine HCl 25 MG 1 tablet as needed Orally every 12 hrs for 10 days 05/31/2023 Active Ondansetron HCl 4 MG 1 tablet Orally twice a day for 7 days 11/05/2022 Active Lidocaine HCl Urethral/Mucosal 2 % APPLY SPARINGLY TO THE AFFECTED AREA ON RIGHT TO THE ARM AND CHEST 2 TO 3 TIMES A DAY IF ITCHY for 30 Active Econazole Nitrate 1 % 1 application Externally twice a day for 30 days 11/05/2022 Active Immunizations Vaccine Route Administration Date Status [...] W/U Status Risk Notes Problem Diabetic neuropathy (282309685) Diabetes mellitus due to underlying condition with diabetic neuropathy, unspecified (E08.40) Active confirmed Problem Morbid obesity (disorder) (586678373) Morbid (severe) obesity due to excess calories (E66.01) Active confirmed Problem Anxiety disorder (404403998) Anxiety disorder, unspecified (F41.9) Active confirmed Problem Essential tremor (639938833) Essential tremor (G25.0) Active confirmed Problem Insomnia (101898798) Insomnia, unspecified (G47.00) Active confirmed Problem Obstructive sleep apnea syndrome (15696996) Obstructive sleep apnea (adult) (pediatric) (G47.33) Active confirmed Problem Essential hypertensi on (61868639) Essential (primary) hypertension (I10) Active confirmed Problem Peripheral vascular disease (649595301) Peripheral vascular disease, unspecified (I73.9) Active confirmed Problem Embolism from thrombosis of vein of lower extremity (406053244) Chronic embolism and thrombosis of unspecified deep veins of unspecified lower extremity (I82.509) Active confirmed Problem Uncomplicated mild persistent asthma (711228585) Mild persistent asthma, uncomplicated (J45.30) Active confirmed Problem Polyp of colon (06647084) Polyp of colon (K63.5) Active confirmed Problem Acquired hammer toe of right foot (0012649182430595) Other hammer toe(s) (acquired), right foot (M20.41) Active confirmed Problem Shoulder joint pain (121365028) Pain in left shoulder (M25.512) Active confirmed Problem Lumbosacral radiculopathy (8767108) Radiculopathy, lumbosacral region (M54.17) Active confirmed Problem Dysphagia (24868438) Dysphagia, unspecified (R13.10) Active confirmed Problem Paresthesia (finding ) (66647090) Paresthesia of skin (R20.2) Active confirmed Problem Amputated below knee (355932044) Acquired absence of left leg below knee (Z89.512) Active confirmed Problem Pure hypercholesterolemia (335098545) Pure hypercholesterolem ia, unspecified (E78.00) Active confirmed Problem Chronic kidney disea se stage 3 (disorder) (509149591) Chronic kidney disease, stage 3 unspecified (N18.30) Active confirmed Problem 97527204 Type 2 diabetes mellitus with other specified complication, without long-term current use of insulin (E11.69) Active confirmed Problem Urinary incontinence (439723576) Urinary incontinence, unspecified type (R32) Active confirmed Problem Gastroesophageal reflux disease (201654854) Gastroesophageal reflux disease, unspecified whether esophagitis present (K21.9) Active confirmed Vital Signs Heart Rate 84 /min 07/31/2024 Temperature 97.2 degrees Fahrenheit 07/31/2024 Blood pressure diastolic 82 mm Hg 07/31/2024 Oximetry 99 % 07/31/2024 Height 62.24 in 07/31/2024 Blood pressure systolic 130 mm Hg 07/31/2024 Weight 222.7 lbs 07/31/2024 BMI 40.41 kg/m2 07/31/2024 Encounters Encounter Location Date Provider Diagnosis [address] [address] 09/01/2023 JARAMILLO GUL Otalgia, left ear H9 2.[address] [address] 09/21/2023 JARAMILLO GUL Local infection of t he skin and subcutaneous tissue, unspecified L08.9 ; Left temporomandibular joint disorder, unspecified M26.602 and Essential tremor G25.[address] [address] 10/06/2023 JARAMILLO GUL Left temporomandibul ar joint disorder, unspecified M26.602 and Otalgia, left ear H92.[address] [address] 11/15/2023 JARAMILLO GUL Radiculopathy, lumbosacral region M54.17 ; Diabetes mellitus due to underlying condition with diabetic neuropathy, unspecified E08.40 ; Essential (primary) hypertension I10 and Chronic kidney disease, stage 3 unspecified N18.[address] [place] [address] 12/06/2023 JARAMILLO GUL Mild persistent asth ma, uncomplicated J45.[address] [place] [address] 02/01/2024 JARAMILLO GUL Other conjunctivitis H10.89 ; Left temporomandibular joint disorder, unspecified M26.602 ; Radiculopathy, lumbosacral region M54.17 and Other hammer toe(s) (acquired), right foot M20.[address] [place] [address] 02/21/2024 JARAMILLO GUL Radiculopathy, lumbosacral region M54.17 ; Diabetes mellitus due to underlying condition with diabetic neuropathy, unspecified E08.40 ; Essential (primary) hypertension I10 and Chronic kidney disease, stage 3 unspecified N18.[address] [address] 02/29/2024 Ghadeer Efraínloum Acute URI J06.[address] [address] 04/18/2024 Ghadeer Mazloum Diabetes mellitus du e to underlying condition [...] of micturition R35.0 and Epidermal cyst L72.[address] [address] 05/14/2024 JARAMILLO GUL Pain in right leg M7 9.[address] [place] [address] 05/23/2024 ELLA MICHAEL Diabetes mellitus du e to underlying condition with diabetic neuropathy, unspecified E08.40 ; Essential (primary) hypertension I10 ; Obstructive sleep apnea (adult) (pediatric) G47.33 ; Anxiety disorder, unspecified F41.9 ; Mild persistent asthma, uncomplicated J45.30 ; Chronic embolism and thrombosis of unspecified deep veins of unspecified lower extremity I82.509 and Chronic kidney disease, stage 3 unspecified N18.[address] [place] [address] 07/31/2024 ELLA MICHAEL Diabetes mellitus du e to underlying condition with diabetic neuropathy, unspecified E08.40 ; Other urogenital candidiasis B37.49 ; Essential (primary) hypertension I10 ; Obstructive sleep apnea (adult) (pediatric) G47.33 ; Anxiety disorder, unspecified F41.9 ; Mild persistent asthma, uncomplicated J45.30 ; Chronic embolism and thrombosis of unspecified deep veins of unspecified lower extremity I82.509 and Chronic kidney disease, stage 3 unspecified N18.[address] [place] [address] 08/29/[address] [place] [address] 09/22/2023 ELLA MICHAEL Local infection of t he skin and subcutaneous tissue, unspecified L08.[address] [place] [address] 09/29/[address] [place] [address] 10/04/[address] [place] [address] 11/14/[address] [place] [address] 12/05/[address] [place] [address] 12/07/2023 [facility] [address] [place] [address] 12/19/2023 [facility] [address] [place] [address] 01/02/2024 [facility] [address] [place] [address] 01/10/2024 [facility] [address] [place] [address] 01/25/2024 [facility] [address] [place] [address] 02/02/2024 [facility] Other conjunctivitis H10.89 [facility] [address] [place] [address] 02/07/2024 [facility] [address] [place] [address] 02/16/2024 [facility] Diabetes mellitus du e to underlying condition with diabetic neuropathy, unspecified E08.40 [facility] [address] [place] [address] 02/23/2024 [facility] [address] [place] [address] 02/28/2024 [facility] [address] [place] [address] 03/05/2024 Adolfo Vlichis [facility] [facility] [address] [place] [address] 04/16/2024 [facility] [address] [place] [address] 04/16/2024 [facility] [address] [place] [address] 06/21/[address] [place] [address] 07/13/[address] [place] [address] 07/30/2024 [address]O [address] [place] [address] 08/16/2024 Adolfo Vilchis [address] [place] [address] 08/16/2024 [facility] Pure hypercholesterolemia, unspecified E78.[address] [place] [address] 08/22/2024 JARAMILLO [facility] Assessments Encounter Date Diagnosis (ICD Code) Assessment Notes Treatment Notes Treatment Clinical Notes Section Notes 07/31/2024 Diabetes mellitus due to underlying condition with diabetic neuropathy, unspecified (ICD-10 - E08.40) Maribell is 63 years old lady with DM type II, hypertension, hyperlipidemia, morbid persistent asthma, generalized anxiety disorder/depressio n, chronic kidney disease stage IIIa, trigeminal neuralgia, obstructive sleep apnea, chronic pain syndrome is here for follow-up. Plan is as follows Diabetes mellitus type 2 with diabetic neuropathy. She has noticed her blood sugars at home. Continue on Lantus 90 units and lispro 30 units with meals along with metformin 850 mg twice a day and check fasting blood sugars and hemoglobin A1c and follows up with [facility] endocrinology. She is seen roof promenade tile setter in the past. She follows up with bit sander and kidney function is stable. Foot care discussed with the patient. Hypertension/hyper lipidemia. Blood pressure well controlled and last lipid panel was within reasonable limits Obstructive sleep apnea. Continue on CPAP machine and no daytime sleepiness. Moderate persistent asthma. She stable when she follows up with software team leader Anxiety/depression . Stable on current regimen. Considering her neuropathy she may be a good candidate for duloxetine which can be added to her regimen and she will check with her psychiatrist. Chronic kidney disease. She is stable and she follows up with bit sander to avoid NSAIDs. Right lower extremity swelling. It is nonpitting edema most likely lymphedema. She is on Eliquis and less likely to be a DVT and ultrasound lower extremity was negative. Vaginal candidiasis. She is given fluconazole and advised to control blood sugars 08/16/2024 Pure hypercholesterolemia , unspecified (ICD-10 - E78.00) 09/21/2023 Local infection of the skin and [...] is here for follow-up after visit to [facility]. Records not available at this point. She complains of left TMJ pain and discomfort and left ear pain. Plan is as follows Left TMJ pain. She is currently on oxycodone and she also use [id number] Tylenol arthritis with no significant relief. We will give her low-dose prednisone on trial basis for 7 days. She has completed physical therapy for TMJ and she has seen dentist for mouth guard. CT scan of the head reviewed with the patient and there were no acute findings. She has appointment with neurologist at [facility] for headaches Left ear pain. [...] is here for follow-up after visit to [facility]. Records not available at this point. She complains of left TMJ pain and discomfort and left ear pain. Plan is as follows Left TMJ pain. She is currently on oxycodone and she also use [id number] Tylenol arthritis with no significant relief. We will give her low-dose prednisone on trial basis for 7 days. She has completed physical therapy for TMJ and she has seen dentist for mouth guard. CT scan of the head reviewed with the patient and there were no acute findings. She has appointment with neurologist at [facility] for headaches Left ear pain. [...] on right medications. She has seen her roof promenade tile setter in the past 1 year. Foot care [...] She has a psychiatrist and a therapist. GERD/gastroparesis . Continue Reglan 10 MG twice a day. [...] 09/01/2023 Otalgia, left ear (ICD-10 - H92.02) aMribell is a 62-year-old lady with DM2, hypertension, [...] on right medications. She has seen her roof promenade tile setter in the past 1 year. Foot care [...] She has a psychiatrist and a therapist. GERD/gastroparesis . Continue Reglan 10 MG twice a day. [...] negative and it was sent to [facility] for further evaluation and it was [...] on right medications. She has seen her roof promenade tile setter in the past 1 year. Foot care [...] because she is on temazepam. Referred to [facility] Dr. Iraheta. Chronic kidney disease stage 3. She does not appear to be in volume overload. Advised appropriate hydration. Avoid NSAIDs. She sees Dr. Lakhani. Asthma. She uses her inhalers as needed. Generalized anxiety disorder. Mood is stable on Lorazepam 3 times a day. She has a psychiatrist and a therapist. GERD/gastroparesis . Continue Reglan 10 MG twice a day. [...] negative and it was sent to [facility] for further evaluation and it was [...] agrees to use of scribes services. 02/21/2024 Radiculopathy, lumbosacral region (ICD-10 - M54.17) Maribell is a 63-year-old lady with DM2, hypertension, hyperlipidemia, asthma, insomnia and anxiety here for follow up. Plan is as follows: Type II diabetes mellitus. Hb A1c improve energy 6.1.She is on right medications. She has seen her roof promenade tile setter in the past 1 year. Foot care [...] because she is on temazepam. Referred to [facility] Dr. Iraheta. Chronic kidney disease stage 3. She does not appear to be in volume overload. Advised appropriate hydration. Avoid NSAIDs. She sees Dr. Lakhani. Asthma. She uses her inhalers as needed. Generalized anxiety disorder. Mood is stable on Lorazepam 3 times a day. She has a psychiatrist and a therapist. GERD/gastroparesis . Continue Reglan 10 MG twice a day. [...] afternoon for breakthrough pains. She follows with [facility] Dr. Iraheta. Chronic kidney disease stage 3. -She does not appear to be in volume overload. Advised appropriate hydration. Avoid NSAIDs. She sees Dr. Lakhani. Asthma. -She uses her inhalers as needed. Follows with Dr. Shipley-[facility] Generalized anxiety disorder. -Mood is stable on Lorazepam 3 times a day. She has a psychiatrist and a therapist. GERD/gastroparesis /dysphagia - Currently she is on omperazole 20m and Reglan 10 MG twice a day. I have increased omperazole to 40mg and advised patient to follow-up with her GI at [facility]. She has an appt in May. MUSA: [...] the patient but was available upon request 05/14/2024 Pain in right leg (ICD-10 - [...] continue Eliquis 5 mg twice a day 05/23/2024 Diabetes mellitus due to underlying condition [...] with diabetic neuropathy. She follows up with [facility] endocrinology and according to patient her last A1c was within normal range. She is seen roof promenade tile setter in the past. She follows up with bit sander and kidney function is stable. Foot care discussed with the patient. Hypertension/hyper lipidemia. Blood pressure well controlled and last lipid panel was within reasonable limits Obstructive sleep apnea. Continue on CPAP machine and no daytime sleepiness. Moderate persistent asthma. She stable when she follows up with software team leader Anxiety/depression . Stable on current regimen. Considering her neuropathy she may be a good candidate for duloxetine which can be added to her regimen and she will check with her psychiatrist. Chronic kidney disease. She is stable and she follows up with bit sander to avoid NSAIDs. Right lower extremity swelling. It is nonpitting edema most likely lymphedema. She is on Eliquis and less likely to be a DVT but considering her history we will do ultrasound right lower extremity in the next few days. 02/01/2024 Radiculopathy, lumbosacral region (ICD-10 - M54.17) [...] negative and it was sent to [facility] for further evaluation and it was [...] Patient agrees to use of scribes services. 05/23/2024 Essential (primary) hypertension (ICD-10 - I10) Maribell is 63 years old lady with DM type II, hypertension, hyperlipidemia, morbid persistent asthma, generalized anxiety disorder/depressio n, chronic kidney disease stage IIIa, trigeminal neuralgia, obstructive sleep apnea, chronic pain syndrome is here for follow-up. Plan is as follows Diabetes mellitus type 2 with diabetic neuropathy. She follows up with [facility] endocrinology and according to patient her last A1c was within normal range. She is seen roof promenade tile setter in the past. She follows up with bit sander and kidney function is stable. Foot care discussed with the patient. Hypertension/hyper lipidemia. Blood pressure well controlled and last lipid panel was within reasonable limits Obstructive sleep apnea. Continue on CPAP machine and no daytime sleepiness. Moderate persistent asthma. She stable when she follows up with software team leader Anxiety/depression . Stable on current regimen. Considering her neuropathy she may be a good candidate for duloxetine which can be added to her regimen and she will check with her psychiatrist. Chronic kidney disease. She is stable and she follows up with bit sander to avoid NSAIDs. Right lower extremity swelling. It is nonpitting edema most likely lymphedema. She is on Eliquis and less likely to be a DVT but considering her history we will do ultrasound right lower extremity in the next few days. 04/18/2024 Essential (primary) hypertension (ICD-10 - I10) [...] afternoon for breakthrough pains. She follows with [facility] Dr. Iraheta. Chronic kidney disease stage 3. -She does not appear to be in volume overload. Advised appropriate hydration. Avoid NSAIDs. She sees Dr. Lakhani. Asthma. -She uses her inhalers as needed. Follows with Dr. Shipley-[facility] Generalized anxiety disorder. -Mood is stable on Lorazepam 3 times a day. She has a psychiatrist and a therapist. GERD/gastroparesis /dysphagia - Currently she is on omperazole 20m and Reglan 10 MG twice a day. I have increased omperazole to 40mg and advised patient to follow-up with her GI at [facility]. She has an appt in May. MUSA: [...] on right medications. She has seen her roof promenade tile setter in the past 1 year. Foot care [...] because she is on temazepam. Referred to [facility] Dr. Iraheta. Chronic kidney disease stage 3. She does not appear to be in volume overload. Advised appropriate hydration. Avoid NSAIDs. She sees Dr. Lakhani. Asthma. She uses her inhalers as needed. Generalized anxiety disorder. Mood is stable on Lorazepam 3 times a day. She has a psychiatrist and a therapist. GERD/gastroparesis . Continue Reglan 10 MG twice a day. [...] on right medications. She has seen her roof promenade tile setter in the past 1 year. Foot care [...] She has a psychiatrist and a therapist. GERD/gastroparesis . Continue Reglan 10 MG twice a day. [...] Patient agrees to use of scribes services. 07/31/2024 Other urogenital candidiasis (ICD-10 - B37.49) Maribell is 63 years old lady with DM type II, hypertension, hyperlipidemia, morbid persistent asthma, generalized anxiety disorder/depressio n, chronic kidney disease stage IIIa, trigeminal neuralgia, obstructive sleep apnea, chronic pain syndrome is here for follow-up. Plan is as follows Diabetes mellitus type 2 with diabetic neuropathy. She has noticed her blood sugars at home. Continue on Lantus 90 units and lispro 30 units with meals along with metformin 850 mg twice a day and check fasting blood sugars and hemoglobin A1c and follows up with [facility] endocrinology. She is seen roof promenade tile setter in the past. She follows up with bit sander and kidney function is stable. Foot care discussed with the patient. Hypertension/hyper lipidemia. Blood pressure well controlled and last lipid panel was within reasonable limits Obstructive sleep apnea. Continue on CPAP machine and no daytime sleepiness. Moderate persistent asthma. She stable when she follows up with software team leader Anxiety/depression . Stable on current regimen. Considering her neuropathy she may be a good candidate for duloxetine which can be added to her regimen and she will check with her psychiatrist. Chronic kidney disease. She is stable and she follows up with bit sander to avoid NSAIDs. Right lower extremity swelling. It is nonpitting edema most likely lymphedema. She is on Eliquis and less likely to be a DVT and ultrasound lower extremity was negative. Vaginal candidiasis. She is given fluconazole and advised to control blood sugars 07/31/2024 Essential (primary) hypertension (ICD-10 - I10) Maribell is 63 years old lady with DM type II, hypertension, hyperlipidemia, morbid persistent asthma, generalized anxiety disorder/depressio n, chronic kidney disease stage IIIa, trigeminal neuralgia, obstructive sleep apnea, chronic pain syndrome is here for follow-up. Plan is as follows Diabetes mellitus type 2 with diabetic neuropathy. She has noticed her blood sugars at home. Continue on Lantus 90 units and lispro 30 units with meals along with metformin 850 mg twice a day and check fasting blood sugars and hemoglobin A1c and follows up with [facility] endocrinology. She is seen roof promenade tile setter in the past. She follows up with bit sander and kidney function is stable. Foot care discussed with the patient. Hypertension/hyper lipidemia. Blood pressure well controlled and last lipid panel was within reasonable limits Obstructive sleep apnea. Continue on CPAP machine and no daytime sleepiness. Moderate persistent asthma. She stable when she follows up with software team leader Anxiety/depression . Stable on current regimen. Considering her neuropathy she may be a good candidate for duloxetine which can be added to her regimen and she will check with her psychiatrist. Chronic kidney disease. She is stable and she follows up with bit sander to avoid NSAIDs. Right lower extremity swelling. It is nonpitting edema most likely lymphedema. She is on Eliquis and less likely to be a DVT and ultrasound lower extremity was negative. Vaginal candidiasis. She is given fluconazole and advised to control blood sugars 05/23/2024 Obstructive sleep apnea (adult) (pediatric) (ICD-10 - G47.33) Maribell is 63 years old lady with DM type II, hypertension, hyperlipidemia, morbid persistent asthma, generalized anxiety disorder/depressio n, chronic kidney disease stage IIIa, trigeminal neuralgia, obstructive sleep apnea, chronic pain syndrome is here for follow-up. Plan is as follows Diabetes mellitus type 2 with diabetic neuropathy. She follows up with [facility] endocr[facility]ology and according to patient her last A1c was within normal range. She is seen roof promenade tile setter in the past. She follows up with bit sander and kidney function is stable. Foot care discussed with the patient. Hypertension/hyper lipidemia. Blood pressure well controlled and last lipid panel was within reasonable limits Obstructive sleep apnea. Continue on CPAP machine and no daytime sleepiness. Moderate persistent asthma. She stable when she follows up with software team leader Anxiety/depression . Stable on current regimen. Considering her neuropathy she may be a good candidate for duloxetine which can be added to her regimen and she will check with her psychiatrist. Chronic kidney disease. She is stable and she follows up with bit sander to avoid NSAIDs. Right lower extremity swelling. It is nonpitting edema most likely lymphedema. She is on Eliquis and less likely to be a DVT but considering her history we will do ultrasound right lower extremity in the next few days. 07/31/2024 Obstructive sleep apnea (adult) (pediatric) (ICD-10 - G47.33) Maribell is 63 years old lady with DM type II, hypertension, hyperlipidemia, morbid persistent asthma, generalized anxiety disorder/depressio n, chronic kidney disease stage IIIa, trigeminal neuralgia, obstructive sleep apnea, chronic pain syndrome is here for follow-up. Plan is as follows Diabetes mellitus type 2 with diabetic neuropathy. She has noticed her blood sugars at home. Continue on Lantus 90 units and lispro 30 units with meals along with metformin 850 mg twice a day and check fasting blood sugars and hemoglobin A1c and follows up with [facility] endocrinology. She is seen roof promenade tile setter in the past. She follows up with bit sander and kidney function is stable. Foot care discussed with the patient. Hypertension/hyper lipidemia. Blood pressure well controlled and last lipid panel was within reasonable limits Obstructive sleep apnea. Continue on CPAP machine and no daytime sleepiness. Moderate persistent asthma. She stable when she follows up with software team leader Anxiety/depression . Stable on current regimen. Considering her neuropathy she may be a good candidate for duloxetine which can be added to her regimen and she will check with her psychiatrist. Chronic kidney disease. She is stable and she follows up with bit sander to avoid NSAIDs. Right lower extremity swelling. It is nonpitting edema most likely lymphedema. She is on Eliquis and less likely to be a DVT and ultrasound lower extremity was negative. Vaginal candidiasis. She is given fluconazole and advised to control blood sugars 11/15/2023 Chronic kidney disease, stage 3 unspecified (ICD-10 - N18.30) Maribell is a 63-year-old lady with DM2, hypertension, hyperlipidemia, asthma, insomnia and anxiety here for follow up. Plan is as follows: Type II diabetes mellitus. A1c 6.6. Glucose 151. She is on right medications. She has seen her roof promenade tile setter in the past 1 year. Foot care [...] She has a psychiatrist and a therapist. GERD/gastroparesis . Continue Reglan 10 MG twice a day. [...] afternoon for breakthrough pains. She follows with [facility] Dr. Iraheta. Chronic kidney disease stage 3. -She does not appear to be in volume overload. Advised appropriate hydration. Avoid NSAIDs. She sees Dr. Lakhani. Asthma. -She uses her inhalers as needed. Follows with Dr. Shipley-[facility] Generalized anxiety disorder. -Mood is stable on Lorazepam 3 times a day. She has a psychiatrist and a therapist. GERD/gastroparesis /dysphagia - Currently she is on omperazole 20m and Reglan 10 MG twice a day. I have increased omperazole to 40mg and advised patient to follow-up with her GI at [facility]. She has an appt in May. MUSA: [...] on right medications. She has seen her roof promenade tile setter in the past 1 year. Foot care [...] because she is on temazepam. Referred to [facility] Dr. Iraheta. Chronic kidney disease stage 3. She does not appear to be in volume overload. Advised appropriate hydration. Avoid NSAIDs. She sees Dr. Lakhani. Asthma. She uses her inhalers as needed. Generalized anxiety disorder. Mood is stable on Lorazepam 3 times a day. She has a psychiatrist and a therapist. GERD/gastroparesis . Continue Reglan 10 MG twice a day. [...] negative and it was sent to [facility] for further evaluation and it was [...] Patient agrees to use of scribes services. 05/23/2024 Anxiety disorder, unspecified (ICD-10 - F41.9) Maribell is 63 years old lady with DM type II, hypertension, hyperlipidemia, morbid persistent asthma, generalized anxiety disorder/depressio n, chronic kidney disease stage IIIa, trigeminal neuralgia, obstructive sleep apnea, chronic pain syndrome is here for follow-up. Plan is as follows Diabetes mellitus type 2 with diabetic neuropathy. She follows up with [facility] endocr[facility]ology and according to patient her last A1c was within normal range. She is seen roof promenade tile setter in the past. She follows up with bit sander and kidney function is stable. Foot care discussed with the patient. Hypertension/hyper lipidemia. Blood pressure well controlled and last lipid panel was within reasonable limits Obstructive sleep apnea. Continue on CPAP machine and no daytime sleepiness. Moderate persistent asthma. She stable when she follows up with software team leader Anxiety/depression . Stable on current regimen. Considering her neuropathy she may be a good candidate for duloxetine which can be added to her regimen and she will check with her psychiatrist. Chronic kidney disease. She is stable and she follows up with bit sander to avoid NSAIDs. Right lower extremity swelling. It is nonpitting edema most likely lymphedema. She is on Eliquis and less likely to be a DVT but considering her history we will do ultrasound right lower extremity in the next few days. 04/18/2024 Radiculopathy, lumbosacral region (ICD-10 - M54.17) [...] afternoon for breakthrough pains. She follows with [facility] Dr. Iraheta. Chronic kidney disease stage 3. -She does not appear to be in volume overload. Advised appropriate hydration. Avoid NSAIDs. She sees Dr. Lakhani. Asthma. -She uses her inhalers as needed. Follows with Dr. Shipley-[facility] Generalized anxiety disorder. -Mood is stable on Lorazepam 3 times a day. She has a psychiatrist and a therapist. GERD/gastroparesis /dysphagia - Currently she is on omperazole 20m and Reglan 10 MG twice a day. I have increased omperazole to 40mg and advised patient to follow-up with her GI at [facility]. She has an appt in May. MUSA: [...] the patient but was available upon request 07/31/2024 Anxiety disorder, unspecified (ICD-10 - F41.9) Maribell is 63 years old lady with DM type II, hypertension, hyperlipidemia, morbid persistent asthma, generalized anxiety disorder/depressio n, chronic kidney disease stage IIIa, trigeminal neuralgia, obstructive sleep apnea, chronic pain syndrome is here for follow-up. Plan is as follows Diabetes mellitus type 2 with diabetic neuropathy. She has noticed her blood sugars at home. Continue on Lantus 90 units and lispro 30 units with meals along with metformin 850 mg twice a day and check fasting blood sugars and hemoglobin A1c and follows up with [facility] end[facility]. She is seen roof promenade tile setter in the past. She follows up with bit sander and kidney function is stable. Foot care discussed with the patient. Hypertension/hyper lipidemia. Blood pressure well controlled and last lipid panel was within reasonable limits Obstructive sleep apnea. Continue on CPAP machine and no daytime sleepiness. Moderate persistent asthma. She stable when she follows up with software team leader Anxiety/depression . Stable on current regimen. Considering her neuropathy she may be a good candidate for duloxetine which can be added to her regimen and she will check with her psychiatrist. Chronic kidney disease. She is stable and she follows up with bit sander to avoid NSAIDs. Right lower extremity swelling. It is nonpitting edema most likely lymphedema. She is on Eliquis and less likely to be a DVT and ultrasound lower extremity was negative. Vaginal candidiasis. She is given fluconazole and advised to control blood sugars 07/31/2024 Mild persistent asthma, uncomplicated (ICD-10 - J45.30) Maribell is 63 years old lady with DM type II, hypertension, hyperlipidemia, morbid persistent asthma, generalized anxiety disorder/depressio n, chronic kidney disease stage IIIa, trigeminal neuralgia, obstructive sleep apnea, chronic pain syndrome is here for follow-up. Plan is as follows Diabetes mellitus type 2 with diabetic neuropathy. She has noticed her blood sugars at home. Continue on Lantus 90 units and lispro 30 units with meals along with metformin 850 mg twice a day and check fasting blood sugars and hemoglobin A1c and follows up with [facility] endocr[facility]ology. She is seen roof promenade tile setter in the past. She follows up with bit sander and kidney function is stable. Foot care discussed with the patient. Hypertension/hyper lipidemia. Blood pressure well controlled and last lipid panel was within reasonable limits Obstructive sleep apnea. Continue on CPAP machine and no daytime sleepiness. Moderate persistent asthma. She stable when she follows up with software team leader Anxiety/depression . Stable on current regimen. Considering her neuropathy she may be a good candidate for duloxetine which can be added to her regimen and she will check with her psychiatrist. Chronic kidney disease. She is stable and she follows up with bit sander to avoid NSAIDs. Right lower extremity swelling. It is nonpitting edema most likely lymphedema. She is on Eliquis and less likely to be a DVT and ultrasound lower extremity was negative. Vaginal candidiasis. She is given fluconazole and advised to control blood sugars 04/18/2024 Chronic kidney disease, stage 3 unspecified [...] afternoon for breakthrough pains. She follows with [facility] Dr. Iraheta. Chronic kidney disease stage 3. -She does not appear to be in volume overload. Advised appropriate hydration. Avoid NSAIDs. She sees Dr. Lakhani. Asthma. -She uses her inhalers as needed. Follows with Dr. Shipley-[facility] Generalized anxiety disorder. -Mood is stable on Lorazepam 3 times a day. She has a psychiatrist and a therapist. GERD/gastroparesis /dysphagia - Currently she is on omperazole 20m and Reglan 10 MG twice a day. I have increased omperazole to 40mg and advised patient to follow-up with her GI at [facility]. She has an appt in May. MUSA: [...] the patient but was available upon request 05/23/2024 Mild persistent asthma, uncomplicated (ICD-10 - J45.30) Maribell is 63 years old lady with DM type II, hypertension, hyperlipidemia, morbid persistent asthma, generalized anxiety disorder/depressio n, chronic kidney disease stage IIIa, trigeminal neuralgia, obstructive sleep apnea, chronic pain syndrome is here for follow-up. Plan is as follows Diabetes mellitus type 2 with diabetic neuropathy. She follows up with [facility] endocrinology and according to patient her last A1c was within normal range. She is seen roof promenade tile setter in the past. She follows up with bit sander and kidney function is stable. Foot care discussed with the patient. Hypertension/hyper lipidemia. Blood pressure well controlled and last lipid panel was within reasonable limits Obstructive sleep apnea. Continue on CPAP machine and no daytime sleepiness. Moderate persistent asthma. She stable when she follows up with software team leader Anxiety/depression . Stable on current regimen. Considering her neuropathy she may be a good candidate for duloxetine which can be added to her regimen and she will check with her psychiatrist. Chronic kidney disease. She is stable and she follows up with bit sander to avoid NSAIDs. Right lower extremity swelling. [...] with diabetic neuropathy. She follows up with [facility] endocrinology and according to patient her last A1c was within normal range. She is seen roof promenade tile setter in the past. She follows up with bit sander and kidney function is stable. Foot care discussed with the patient. Hypertension/hyper lipidemia. Blood pressure well controlled and last lipid panel was within reasonable limits Obstructive sleep apnea. Continue on CPAP machine and no daytime sleepiness. Moderate persistent asthma. She stable when she follows up with software team leader Anxiety/depression . Stable on current regimen. Considering her neuropathy she may be a good candidate for duloxetine which can be added to her regimen and she will check with her psychiatrist. Chronic kidney disease. She is stable and she follows up with bit sander to avoid NSAIDs. Right lower extremity swelling. It is nonpitting edema most likely lymphedema. She is on Eliquis and less likely to be a DVT but considering her history we will do ultrasound right lower extremity in the next few days. 04/18/2024 Anxiety disorder, unspecified (ICD-10 - F41.9) [...] afternoon for breakthrough pains. She follows with [facility] Dr. Iraheta. Chronic kidney disease stage 3. -She does not appear to be in volume overload. Advised appropriate hydration. Avoid NSAIDs. She sees Dr. Lakhani. Asthma. -She uses her inhalers as needed. Follows with Dr. Shipley-[facility] Generalized anxiety disorder. -Mood is stable on Lorazepam 3 times a day. She has a psychiatrist and a therapist. GERD/gastroparesis /dysphagia - Currently she is on omperazole 20m and Reglan 10 MG twice a day. I have increased omperazole to 40mg and advised patient to follow-up with her GI at [facility]. She has an appt in May. MUSA: [...] the patient but was available upon request 07/31/2024 Chronic embolism and thrombosis of unspecified deep veins of unspecified lower extremity (ICD-10 - I82.509) Maribell is 63 years old lady with DM type II, hypertension, hyperlipidemia, morbid persistent asthma, generalized anxiety disorder/depressio n, chronic kidney disease stage IIIa, trigeminal neuralgia, obstructive sleep apnea, chronic pain syndrome is here for follow-up. Plan is as follows Diabetes mellitus type 2 with diabetic neuropathy. She has noticed her blood sugars at home. Continue on Lantus 90 units and lispro 30 units with meals along with metformin 850 mg twice a day and check fasting blood sugars and hemoglobin A1c and follows up with [facility] endocrinology. She is seen roof promenade tile setter in the past. She follows up with bit sander and kidney function is stable. Foot care discussed with the patient. Hypertension/hyper lipidemia. Blood pressure well controlled and last lipid panel was within reasonable limits Obstructive sleep apnea. Continue on CPAP machine and no daytime sleepiness. Moderate persistent asthma. She stable when she follows up with software team leader Anxiety/depression . Stable on current regimen. Considering her neuropathy she may be a good candidate for duloxetine which can be added to her regimen and she will check with her psychiatrist. Chronic kidney disease. She is stable and she follows up with bit sander to avoid NSAIDs. Right lower extremity swelling. It is nonpitting edema most likely lymphedema. She is on Eliquis and less likely to be a DVT and ultrasound lower extremity was negative. Vaginal candidiasis. She is given fluconazole and advised to control blood sugars 07/31/2024 Chronic kidney disease, stage 3 unspecified (ICD-10 - N18.30) Maribell is 63 years old lady with DM type II, hypertension, hyperlipidemia, morbid persistent asthma, generalized anxiety disorder/depressio n, chronic kidney disease stage IIIa, trigeminal neuralgia, obstructive sleep apnea, chronic pain syndrome is here for follow-up. Plan is as follows Diabetes mellitus type 2 with diabetic neuropathy. She has noticed her blood sugars at home. Continue on Lantus 90 units and lispro 30 units with meals along with metformin 850 mg twice a day and check fasting blood sugars and hemoglobin A1c and follows up with [facility] endocrinology. She is seen roof promenade tile setter in the past. She follows up with bit sander and kidney function is stable. Foot care discussed with the patient. Hypertension/hyper lipidemia. Blood pressure well controlled and last lipid panel was within reasonable limits Obstructive sleep apnea. Continue on CPAP machine and no daytime sleepiness. Moderate persistent asthma. She stable when she follows up with software team leader Anxiety/depression . Stable on current regimen. Considering her neuropathy she may be a good candidate for duloxetine which can be added to her regimen and she will check with her psychiatrist. Chronic kidney disease. She is stable and she follows up with bit sander to avoid NSAIDs. Right lower extremity swelling. It is nonpitting edema most likely lymphedema. She is on Eliquis and less likely to be a DVT and ultrasound lower extremity was negative. Vaginal candidiasis. She is given fluconazole and advised to control blood sugars 04/18/2024 Dysphagia, unspecified (ICD-10 - R13.10) Maribell [...] afternoon for breakthrough pains. She follows with [facility] Dr. Iraheta. Chronic kidney disease stage 3. -She does not appear to be in volume overload. Advised appropriate hydration. Avoid NSAIDs. She sees Dr. Lakhani. Asthma. -She uses her inhalers as needed. Follows with Dr. Shipley-[facility] Generalized anxiety disorder. -Mood is stable on Lorazepam 3 times a day. She has a psychiatrist and a therapist. GERD/gastroparesis /dysphagia - Currently she is on omperazole 20m and Reglan 10 MG twice a day. I have increased omperazole to 40mg and advised patient to follow-up with her GI at [facility]. She has an appt in May. MUSA: [...] the patient but was available upon request 05/23/2024 Chronic kidney disease, stage 3 unspecified (ICD-10 - N18.30) Maribell is 63 years old lady with DM type II, hypertension, hyperlipidemia, morbid persistent asthma, generalized anxiety disorder/depressio n, chronic kidney disease stage IIIa, trigeminal neuralgia, obstructive sleep apnea, chronic pain syndrome is here for follow-up. Plan is as follows Diabetes mellitus type 2 with diabetic neuropathy. She follows up with [facility] endocr[facility]ology and according to patient her last A1c was within normal range. She is seen roof promenade tile setter in the past. She follows up with bit sander and kidney function is stable. Foot care discussed with the patient. Hypertension/hyper lipidemia. Blood pressure well controlled and last lipid panel was within reasonable limits Obstructive sleep apnea. Continue on CPAP machine and no daytime sleepiness. Moderate persistent asthma. She stable when she follows up with software team leader Anxiety/depression . Stable on current regimen. Considering her neuropathy she may be a good candidate for duloxetine which can be added to her regimen and she will check with her psychiatrist. Chronic kidney disease. She is stable and she follows up with bit sander to avoid NSAIDs. Right lower extremity swelling. It is nonpitting edema most likely lymphedema. She is on Eliquis and less likely to be a DVT but considering her history we will do ultrasound right lower extremity in the next few days. 04/18/2024 Gastroesophageal reflux disease, unspecified whether esophagitis [...] afternoon for breakthrough pains. She follows with [facility] Dr. Iraheta. Chronic kidney disease stage 3. -She does not appear to be in volume overload. Advised appropriate hydration. Avoid NSAIDs. She sees Dr. Lakhani. Asthma. -She uses her inhalers as needed. Follows with Dr. Rea Generalized anxiety disorder. -Mood is stable on Lorazepam 3 times a day. She has a psychiatrist and a therapist. GERD/gastroparesis /dysphagia - Currently she is on omperazole 20m and Reglan 10 MG twice a day. I have increased omperazole to 40mg and advised patient to follow-up with her GI at [facility]. She has an appt in May. MUSA: [...] afternoon for breakthrough pains. She follows with [facility] Dr. Iraheta. Chronic kidney disease stage 3. -She does not appear to be in volume overload. Advised appropriate hydration. Avoid NSAIDs. She sees Dr. Lakhani. Asthma. -She uses her inhalers as needed. Follows with Dr. Rea Generalized anxiety disorder. -Mood is stable on Lorazepam 3 times a day. She has a psychiatrist and a therapist. GERD/gastroparesis /dysphagia - Currently she is on omperazole 20m and Reglan 10 MG twice a day. I have increased omperazole to 40mg and advised patient to follow-up with her GI at [facility]. She has an appt in May. MUSA: [...] afternoon for breakthrough pains. She follows with [facility] Dr. Iraheta. Chronic kidney disease stage 3. -She does not appear to be in volume overload. Advised appropriate hydration. Avoid NSAIDs. She sees Dr. Lakhani. Asthma. -She uses her inhalers as needed. Follows with Dr. Shipley-[facility] Generalized anxiety disorder. -Mood is stable on Lorazepam 3 times a day. She has a psychiatrist and a therapist. GERD/gastroparesis /dysphagia - Currently she is on omperazole 20m and Reglan 10 MG twice a day. I have increased omperazole to 40mg and advised patient to follow-up with her GI at [facility]. She has an appt in May. MUSA: [...] afternoon for breakthrough pains. She follows with [facility] Dr. Iraheta. Chronic kidney disease stage 3. -She does not appear to be in volume overload. Advised appropriate hydration. Avoid NSAIDs. She sees Dr. Lakhani. Asthma. -She uses her inhalers as needed. Follows with Dr. Shipley-[facility] Generalized anxiety disorder. -Mood is stable on Lorazepam 3 times a day. She has a psychiatrist and a therapist. GERD/gastroparesis /dysphagia - Currently she is on omperazole 20m and Reglan 10 MG twice a day. I have increased omperazole to 40mg and advised patient to follow-up with her GI at [facility]. She has an appt in May. MUSA: [...] afternoon for breakthrough pains. She follows with [facility] Dr. Iraheta. Chronic kidney disease stage 3. -She does not appear to be in volume overload. Advised appropriate hydration. Avoid NSAIDs. She sees Dr. Lakhani. Asthma. -She uses her inhalers as needed. Follows with Dr. Shipley-[facility] Generalized anxiety disorder. -Mood is stable on Lorazepam 3 times a day. She has a psychiatrist and a therapist. GERD/gastroparesis /dysphagia - Currently she is on omperazole 20m and Reglan 10 MG twice a day. I have increased omperazole to 40mg and advised patient to follow-up with her GI at [facility]. She has an appt in May. MUSA: [...] afternoon for breakthrough pains. She follows with [facility] Dr. Iraheta. Chronic kidney disease stage 3. -She does not appear to be in volume overload. Advised appropriate hydration. Avoid NSAIDs. She sees Dr. Lakhani. Asthma. -She uses her inhalers as needed. Follows with Dr. Shipley-[facility] Generalized anxiety disorder. -Mood is stable on Lorazepam 3 times a day. She has a psychiatrist and a therapist. GERD/gastroparesis /dysphagia - Currently she is on omperazole 20m and Reglan 10 MG twice a day. I have increased omperazole to 40mg and advised patient to follow-up with her GI at [facility]. She has an appt in May. MUSA: [...] 07/04/2020 LIPID PANEL 07/04/2020 PROTIME PROFILE 12/18/2018 US Duplex Venous Study RT 05/14/2024 Hemoglobin A1C 04/18/2018 Hemoglobin A1C 01/20/2018 UA W/REFLEX MICROSCOPIC & CULTURE 2022 UA W/REFLEX MICROSCOPIC & CULTURE 2022 Albumin/Creatinine Ratio,[id number] Lipid Panel-[id number] 08/16/2024 Lipid Panel-[id number] 04/18/2024 Comp. Metabolic Panel [id number] 2023 MG MAMMO DIGITAL SCREENING W TONG BILAT 08/20/2024 Next Appt Details Provider Name:ELLA MICHAEL , 11/06/2024 09:30:00 AM, [address] [place] [address], [phone], Provider Name:ELLA MICHAEL , 11/26/2024 10:00:00 AM, [address] [place] [address], [id number], Insurance Providers Payer Name Payer Address Payer Phone Subscriber Number Group Number Insured Name Patient Relationship to Insured Coverage Start Date Coverage End Date [facility] [address] [place] [phone] [id number] MARIBELL TAYLOR Self - patient is the insured Medical (General) History Medical History History ICD Code hypertension, benign hyperlipidemia IDDM T 2, [facility] end[facility] Urinary incontinence and she sees Dr. England at [facility] Left shoulder pain and she sees Dr. Alida villa and she is also seen Dr. Diaz Asthma and she sees Pul at [facility] Generalized anxiety disorder and she is seen by a psychiatrist and she goes to [facility] and has seen Dr. Montiel at [facility] in past Peripheral arterial disease and status post amputation below knee joint currently on Coumadin and goes to Coumadin clinic Lumbar radiculopathy on oxycodone 30 mg 3 times a day DVT leg LE sleep apnea see Pul at [facility] Left leg amputation below knee joint Chronic kidney disease stage 3, Dr. Janis smalls Personal history of COVID-19 [facility] Surgical History Surgery Date(Month/Year) rotator cuff tear repair September 2017 wrist surgery below the knee amputation 07 left side for Blood clots 2/2 to OCP and pt was smoking rt toes amputation 2004 right wrist synovial cyst resection, Dr. Henriquez 2021 right carpal tunnel decompression, Dr. Flores hadley 2021 Hospitalization History Reason Date(Month/Year)
[2024-08-31 11:46] VITALS: BMI 37.5
--- NOTE | 2024-09-03 11:58 | P.CONAN_ITS ---
Documented by User: Sanjana Campbell NP 09/03/24 12:02 HPI - Anesthesia Eval Consult details Narrative: 63yo F for Cystoscopy Botox Injection Eliquis - chronic DVT s/p amp Anesthesia Pre-Procedure Meds Is the patient on any of the following meds?: GLP1/DPP4 and SGLT2 Inhib PMFSH Active Problems Active Problems: All Active Problems Ulnar neuropathy (Acute) Carpal tunnel syndrome (Acute) OAB (overactive bladder) (Acute) Neuroforaminal stenosis of cervical spine (Acute) Urge incontinence of urine (Acute) Spastic neurogenic bladder (Acute) Cervical dystonia (Acute) Left temporal headache (Acute) Left-sided temporomandibular joint pain-dysfunction syndrome (Acute) Cervicalgia (Acute) Acute diarrhea (Acute) Lower urinary tract symptoms (Acute) Giant cell arteritis (Acute) Multiple food allergies (Acute) Multiple drug allergies (Acute) GERD (gastroesophageal reflux disease) (Acute) Lumbosacral radiculopathy due to degenerative joint disease of spine (Acute) Generalized anxiety disorder (Acute) Amputation of left lower extremity below knee (Acute) Chronic deep vein thrombosis (DVT) (Acute) Chronic anticoagulation (Acute) Peripheral arterial disease (Acute) Chronic, continuous use of opioids (Acute) Chronic pain (Acute) Chronic kidney disease, stage 3 (Acute) IDDM (insulin dependent diabetes mellitus) (Acute) High cholesterol (Acute) MUSA (obstructive sleep apnea) (Acute) Asthma (Acute) Morbid obesity (Acute) Pelvic floor dysfunction in female (Acute) Gastroparesis (Acute) HTN (hypertension) (Acute) Diabetes mellitus (Acute) Urinary incontinence (Acute) Past Medical History Medical History Gastroparesis COVID-19 UTI (urinary tract infection) Amputated toe of right foot Ganglion cyst Urinary incontinence HTN (hypertension) Diabetes mellitus Urinary incontinence Family History Family history of problems with anesthesia: No Surgical History Surgical History History of left below knee amputation S/P carpal tunnel release History of surgical removal of ganglion cyst S/P rotator cuff repair History of surgery History of Problems with Anesthesia: Yes Social History Social History Are you a primary urgent care physician assistant to a significant other at home: No Do you presently have visiting nurse or other home services: No Alcohol intake: never Patient Tobacco Use Status: Former Tobacco user Use of substances other than those prescribed or required for medical reasons: No Substance Use Type: Marijuana Have you been hit, kicked, punched, or otherwise hurt by someone within the past year? If so, by whom?: No Are you DNR?: No Advance Directives: No Advance Directives Information Provided: Yes Meds Allergies Allergy/AdvReac Type Severity Reaction Status Date / Time octopus Allergy Severe Anaphylaxis Verified 09/04/24 08:26 oxybutynin Allergy Severe Difficulty Verified 09/04/24 08:26 Swallowing tolterodine Allergy Severe Difficulty Verified 09/04/24 08:26 Swallowing aspirin Allergy Unknown anaphylaxis Verified 09/04/24 08:26 citalopram Allergy Unknown Unknown Verified 09/04/24 08:26 empagliflozin Allergy Unknown Unknown Verified 09/04/24 08:26 [From Jardiance] Fish Containing Products Allergy Unknown Unknown Verified 09/04/24 08:26 gabapentin Allergy Unknown hives Verified 09/04/24 08:26 hydrocodone [Vicodin] Allergy Unknown hives Verified 09/04/24 08:26 naproxen [Naprosyn] Allergy Unknown anaphylaxis Verified 09/04/24 08:26 oxycodone [Percocet] Allergy Unknown hives Verified 09/04/24 08:26 pregabalin [From Lyrica] Allergy Unknown Unknown Verified 09/04/24 08:26 sertraline Allergy Unknown Unknown Verified 09/04/24 08:26 shellfish derived Allergy Unknown Unknown Verified 09/04/24 08:26 peanut Allergy Anaphylaxis Verified 09/04/24 08:26 solifenacin AdvReac phlegm Verified 09/04/24 08:26 Vicodin Allergy Unknown hives Uncoded 09/04/24 08:26 Home Medications ?Medication ?Instructions ?Recorded ?Confirmed ?Last Taken ?Type alcohol swabs pad topical TID 10/16/20 07/30/24 Unknown History amlodipine 5 mg tablet 5 mg PO DAILY 10/16/20 09/04/24 09/04/24 History apixaban 5 mg tablet 5 mg PO BID 10/16/20 09/04/24 08/26/24 History atorvastatin 10 mg tablet 10 mg PO DAILY 10/16/20 07/30/24 Unknown History blood sugar diagnostic #10 ea 10/16/20 07/30/24 Unknown History cholecalciferol (vitamin D3) 50 50 mcg PO BEDTIME 10/16/20 07/30/24 Unknown History mcg (2,000 unit) capsule citalopram 40 mg tablet 40 mg PO DAILY 10/16/20 07/30/24 04/25/23 History diclofenac sodium 1 % topical gel g topical 10/16/20 07/30/24 Unknown History fluticasone propionate 50 0 mcg intranasal BID 10/16/20 07/30/24 Unknown History mcg/actuation nasal spray,suspension hydrochlorothiazide 25 mg tablet 25 mg PO QAM 10/16/20 07/30/24 Unknown History lancets 30 gauge #100 ea 10/16/20 07/30/24 Unknown History loratadine 10 mg tablet 10 mg PO DAILY 10/16/20 07/30/24 Unknown History losartan 100 mg tablet 100 mg PO DAILY 10/16/20 09/04/24 09/04/24 History metoprolol succinate 100 mg 100 mg PO DAILY 10/16/20 07/30/24 Unknown History tablet,extended release 24 hr montelukast 10 mg tablet 10 mg PO DAILY 10/16/20 07/30/24 Unknown History pen needle, diabetic 32 gauge x #50 ea 10/16/20 07/30/24 Unknown History temazepam 30 mg capsule 30 mg PO BEDTIME PRN 10/16/20 07/30/24 Unknown History triamcinolone acetonide 0.025 % appl topical 10/16/20 07/30/24 Unknown History topical cream benzonatate 100 mg capsule 100 mg PO TID 08/14/21 07/30/24 Unknown History insulin glargine 100 unit/mL (3 unit subcut BEDTIME 08/14/21 07/30/24 Unknown History mL) subcutaneous pen (Lantus Solostar U-100 Insulin) insulin lispro 100 unit/mL 30 unit subcut TID 08/14/21 07/30/24 Unknown History subcutaneous pen dulaglutide 4.5 mg/0.5 mL mg subcut 12/15/21 07/30/24 08/22/24 History subcutaneous pen injector (Trulicity) ezetimibe 10 mg tablet 10 mg PO DAILY 01/13/23 07/30/24 Unknown History fluocinonide 0.05 % topical cream appl topical DAILY 01/13/23 07/30/24 Unknown History hydroxyzine HCl 25 mg tablet 25 mg PO DAILY 01/13/23 07/30/24 Unknown History lorazepam 1 mg tablet 1 mg PO BID 01/13/23 07/30/24 Unknown History metformin 850 mg tablet 850 mg PO BID 01/13/23 07/30/24 Unknown History Exam Height,Weight and Vital Signs: Height 5 ft 2 in Weight 92.986 kg Pertinent Lab Results Pertinent Lab Results: Laboratory Tests 05/14/24 07:36 WBC 9.8 Hgb 12.8 Hct 39.2 Plt Count 242 Sodium 140 Potassium 4.5 Chloride 107 Carbon Dioxide 24 BUN 20 H Creatinine 1.27 Assessment and Plan Assessment Anesthesia Assessment: Chart Reviewed Final Anesthetic Review Family History of Problems with Anesthesia: No History of Problems with Anesthesia: Yes Documented by User: Saniya Goldberg MD 09/04/24 08:46 [facility] [place] Past Medical History Medical History Gastroparesis COVID-19 UTI (urinary tract infection) Amputated toe of right foot Ganglion cyst Urinary incontinence HTN (hypertension) Diabetes mellitus Urinary incontinence Surgical History Surgical History History of left below knee amputation S/P carpal tunnel release History of surgical removal of ganglion cyst S/P rotator cuff repair History of surgery History of Problems with Anesthesia: No Social History Social History Are you a primary urgent care physician assistant to a significant other at home: No Do you presently have visiting nurse or other home services: No Alcohol intake: never Patient Tobacco Use Status: Former Tobacco user Use of substances other than those prescribed or required for medical reasons: No Substance Use Type: Marijuana Have you been hit, kicked, punched, or otherwise hurt by someone within the past year? If so, by whom?: No Are you DNR?: No Advance Directives: No Advance Directives Information Provided: Yes Meds Allergies Allergy/AdvReac Type Severity Reaction Status Date / Time octopus Allergy Severe Anaphylaxis Verified 09/04/24 08:26 oxybutynin Allergy Severe Difficulty Verified 09/04/24 08:26 Swallowing tolterodine Allergy Severe Difficulty Verified 09/04/24 08:26 Swallowing aspirin Allergy Unknown anaphylaxis Verified 09/04/24 08:26 citalopram Allergy Unknown Unknown Verified 09/04/24 08:26 empagliflozin Allergy Unknown Unknown Verified 09/04/24 08:26 [From Jardiance] Fish Containing Products Allergy Unknown Unknown Verified 09/04/24 08:26 gabapentin Allergy Unknown hives Verified 09/04/24 08:26 hydrocodone [Vicodin] Allergy Unknown hives Verified 09/04/24 08:26 naproxen [Naprosyn] Allergy Unknown anaphylaxis Verified 09/04/24 08:26 oxycodone [Percocet] Allergy Unknown hives Verified 09/04/24 08:26 pregabalin [From Lyrica] Allergy Unknown Unknown Verified 09/04/24 08:26 sertraline Allergy Unknown Unknown Verified 09/04/24 08:26 shellfish derived Allergy Unknown Unknown Verified 09/04/24 08:26 peanut Allergy Anaphylaxis Verified 09/04/24 08:26 solifenacin AdvReac phlegm Verified 09/04/24 08:26 Vicodin Allergy Unknown hives Uncoded 09/04/24 08:26 Home Medications ?Medication ?Instructions ?Recorded ?Confirmed ?Last Taken ?Type alcohol swabs pad topical TID 10/16/20 07/30/24 Unknown History amlodipine 5 mg tablet 5 mg PO DAILY 10/16/20 09/04/24 09/04/24 History apixaban 5 mg tablet 5 mg PO BID 10/16/20 09/04/24 08/26/24 History atorvastatin 10 mg tablet 10 mg PO DAILY 10/16/20 07/30/24 Unknown History blood sugar diagnostic #10 ea 10/16/20 07/30/24 Unknown History cholecalciferol (vitamin D3) 50 50 mcg PO BEDTIME 10/16/20 07/30/24 Unknown History mcg (2,000 unit) capsule citalopram 40 mg tablet 40 mg PO DAILY 10/16/20 07/30/24 04/25/23 History diclofenac sodium 1 % topical gel g topical 10/16/20 07/30/24 Unknown History fluticasone propionate 50 0 mcg intranasal BID 10/16/20 07/30/24 Unknown History mcg/actuation nasal spray,suspension hydrochlorothiazide 25 mg tablet 25 mg PO QAM 10/16/20 07/30/24 Unknown History lancets 30 gauge #100 ea 10/16/20 07/30/24 Unknown History loratadine 10 mg tablet 10 mg PO DAILY 10/16/20 07/30/24 Unknown History losartan 100 mg tablet 100 mg PO DAILY 10/16/20 09/04/24 09/04/24 History metoprolol succinate 100 mg 100 mg PO DAILY 10/16/20 07/30/24 Unknown History tablet,extended release 24 hr montelukast 10 mg tablet 10 mg PO DAILY 10/16/20 07/30/24 Unknown History pen needle, diabetic 32 gauge x #50 ea 10/16/20 07/30/24 Unknown History temazepam 30 mg capsule 30 mg PO BEDTIME PRN 10/16/20 07/30/24 Unknown History triamcinolone acetonide 0.025 % appl topical 10/16/20 07/30/24 Unknown History topical cream benzonatate 100 mg capsule 100 mg PO TID 08/14/21 07/30/24 Unknown History insulin glargine 100 unit/mL (3 unit subcut BEDTIME 08/14/21 07/30/24 Unknown History mL) subcutaneous pen (Lantus Solostar U-100 Insulin) insulin lispro 100 unit/mL 30 unit subcut TID 08/14/21 07/30/24 Unknown History subcutaneous pen dulaglutide 4.5 mg/0.5 mL mg subcut 12/15/21 07/30/24 08/22/24 History subcutaneous pen injector (Trulicity) ezetimibe 10 mg tablet 10 mg PO DAILY 01/13/23 07/30/24 Unknown History fluocinonide 0.05 % topical cream appl topical DAILY 01/13/23 07/30/24 Unknown History hydroxyzine HCl 25 mg tablet 25 mg PO DAILY 01/13/23 07/30/24 Unknown History lorazepam 1 mg tablet 1 mg PO BID 01/13/23 07/30/24 Unknown History metformin 850 mg tablet 850 mg PO BID 01/13/23 07/30/24 Unknown History Exam Airway Mallampati Class: III TM Dist: >3cm Neck ROM: Full Assessment and Plan Assessment Anesthesia Assessment: Anesthesia Plan Discussed Final Anesthetic Review History of Problems with Anesthesia: No NPO: Yes ASA Class: III Final Preanesthetic Review: No Changes in Pt Med Stat, Meds/Allgs Chart Reviewed, Consent Obtained/Reviewed and Anes Risks/Benef Reviewed Patient Risk: Intermediate Procedure Risk: Low Anesthetic Plan Anesthetic Plan: TIVA Disposition: Standard PACU
[2024-09-04] VITALS (7 sets, daily range): BP systolic 117–152; BP diastolic 42–83; PULSE 78–83; RESP 14–16; TEMP 36.2–36.4; O2SAT 94–100; BMI 39.5
--- NOTE | 2024-09-04 09:09 | W.PM.OPN ---
Operative Note Operative Note Date of Service: 09/04/24 Narrative: PREOP DIAGNOSIS: OAB POSTOP DIAGNOSIS: OAB PROCEDURE: CYSTOSCOPY, BLADDER BOTOX INJECTION 100 UNITS SURGEON: Nahun Aldana MD ANESTHESIA: General Details of procedure: The patient was brought into the operating room placed on the OR table in supine position. Antibiotics confirmed. General anesthesia was administered. The patient was repositioned into lithotomy position, prepped and draped in the usual sterile fashion. Time-out was done per protocol. A 22 fr cystoscope was placed transurethrally into the bladder. Urine was sent for culture. The right and left ureteral orifices were visualized. There were moderate trabeculations noted. There were no suspicious bladder lesions seen. The Botox 100 units was mixed with 10 cc of normal saline and transurethral injections were placed into the posterior wall of the bladder. 0.5cc placed at each injection site. Injections were placed in a grid 5 across and 4 longitudinally. Injections were placed from the inferior to superior position. 2% lidocaine urojet was passed transurethrally into the bladder. The patient was brought out of anesthesia and taken to recovery in stable condition. Complications: None EBL: minimal (<5 mL) Drains: none
--- NOTE | 2024-09-04 09:09 | MHC.SHP ---
Pre-Procedural Eval Section A - 24 Hr Update-Section A only Date of Service: 09/04/24 The patient is an INPATIENT: No The patient has been examined within 24 hours of the surgical procedure. The History & Physical has been completed within 30 days and I have reviewed it.: Yes Section B - Complete if H&P > 30 days Chief Complaint: Overactive bladder Allergies: Allergies Allergy/AdvReac Type Severity Reaction Status Date / Time octopus Allergy Severe Anaphylaxis Verified 09/04/24 08:26 oxybutynin Allergy Severe Difficulty Verified 09/04/24 08:26 Swallowing tolterodine Allergy Severe Difficulty Verified 09/04/24 08:26 Swallowing aspirin Allergy Unknown anaphylaxis Verified 09/04/24 08:26 citalopram Allergy Unknown Unknown Verified 09/04/24 08:26 empagliflozin Allergy Unknown Unknown Verified 09/04/24 08:26 [From Jardiance] Fish Containing Products Allergy Unknown Unknown Verified 09/04/24 08:26 gabapentin Allergy Unknown hives Verified 09/04/24 08:26 hydrocodone [Vicodin] Allergy Unknown hives Verified 09/04/24 08:26 naproxen [Naprosyn] Allergy Unknown anaphylaxis Verified 09/04/24 08:26 oxycodone [Percocet] Allergy Unknown hives Verified 09/04/24 08:26 pregabalin [From Lyrica] Allergy Unknown Unknown Verified 09/04/24 08:26 sertraline Allergy Unknown Unknown Verified 09/04/24 08:26 shellfish derived Allergy Unknown Unknown Verified 09/04/24 08:26 peanut Allergy Anaphylaxis Verified 09/04/24 08:26 solifenacin AdvReac phlegm Verified 09/04/24 08:26 Vicodin Allergy Unknown hives Uncoded 09/04/24 08:26 Plan Diagnosis/Plan: Unchanged I have reviewed the history and physical and performed a pertinent physical examination on my patient. No changes have occurred unless specified. Cystoscopy. Bladder botox injection 100 units. I have discussed risks to include hematuria, UTI, urinary retention, need to repeat procedure for sustained efficacy. Time Spent With Patient Time: Total time managing care of this patient today ____ minutes.
[2024-09-04] MEDS: Lactated Ringers 1,000 ML 100 ML IVCONT (09:30)
[2024-09-04] MEDS: Phenazopyridine HCL 200 MG TABLET PO (10:23)
== END 2024-09-04 11:58 | disposition home or self-care (01) ==
PROVIDERS: PCP Hospitalist; Visit Provider Urology
PROC: 3E0K8GC Introduction of Other Therapeutic Substance into Genitourinary Tract, Via Natural or Artificial Opening Endoscopic (ICD-10-PCS; CPT 52287; principal; 2024-09-04 09:30)
DX: N32.81 Overactive bladder (principal); N39.41 Urge incontinence; N31.8 Other neuromuscular dysfunction of bladder; I10 Essential (primary) hypertension; E11.9 Type 2 diabetes mellitus without complications; K31.84 Gastroparesis; Z89.421 Acquired absence of other right toe(s); Z79.4 Long term (current) use of insulin; Z79.84 Long term (current) use of oral hypoglycemic drugs; Z79.85 Long-term (current) use of injectable non-insulin antidiabetic drugs; Z79.01 Long term (current) use of anticoagulants; Z79.899 Other long term (current) drug therapy; Z88.6 Allergy status to analgesic agent; Z88.8 Allergy status to other drugs, medicaments and biological substances; Z91.010 Allergy to peanuts; Z91.013 Allergy to seafood; Z91.09 Other allergy status, other than to drugs and biological substances
CPT/HCPCS: 52287; 87086; J0585; J0690; J2003; J2405; J2704; J3010

== ENCOUNTER → 2024-09-04 07:50 | Outpatient (BNV) | payer OTHER, SELFPAY | PROVIDERS: PCP Hospitalist; Visit Provider Urology | DX: N32.81 Overactive bladder (principal) | CPT/HCPCS: 52287 ==

== ENCOUNTER → 2024-09-12 09:01 | Outpatient (BNVA) | payer OTHER, SELFPAY | PROVIDERS: PCP Hospitalist; Visit Provider Urology | DX: N32.81 Overactive bladder (principal) | CPT/HCPCS: 51798 ==

== ENCOUNTER 2024-09-28 08:43 | Outpatient (AMB) | payer OTHER, SELFPAY ==
--- NOTE | 2024-09-28 08:46 | A.OFFVIS_ITS ---
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 Patient reports numbness and tingling of the right basal joint as well as the right ring and small fingers that occurs on some days, sporadic. Patient explains it is hard to open and close lids. She finds herself dropping objects and having difficulty staying asleep. Denies bilateral finger locking. Patient reports right tendonitis surgery at [facility] over 5 years ago, left carpal tunnel release and cyst excision 3-4 years ago at [facility]. EMG done 07/25/24. Allergies octopus Allergy (Severe, Verified 09/28/24 09:23) Anaphylaxis oxybutynin Allergy (Severe, Verified 09/28/24 09:23) Difficulty Swallowing tolterodine Allergy (Severe, Verified 09/28/24 09:23) Difficulty Swallowing aspirin Allergy (Unknown, Verified 09/28/24 09:23) anaphylaxis citalopram Allergy (Unknown, Verified 09/28/24 09:23) Unknown empagliflozin [From Jardiance] Allergy (Unknown, Verified 09/28/24 09:23) Unknown Fish Containing Products Allergy (Unknown, Verified 09/28/24 09:23) Unknown gabapentin Allergy (Unknown, Verified 09/28/24 09:23) hives hydrocodone [Vicodin] Allergy (Unknown, Verified 09/28/24 09:23) hives naproxen [Naprosyn] Allergy (Unknown, Verified 09/28/24 09:23) anaphylaxis oxycodone [Percocet] Allergy (Unknown, Verified 09/28/24 09:23) hives pregabalin [From Lyrica] Allergy (Unknown, Verified 09/28/24 09:23) Unknown sertraline Allergy (Unknown, Verified 09/28/24 09:23) Unknown shellfish derived Allergy (Unknown, Verified 09/28/24 09:23) Unknown peanut Allergy (Verified 09/28/24 09:23) Anaphylaxis solifenacin Adverse Reaction (Verified 09/28/24 09:23) phlegm Vicodin Allergy (Unknown, Uncoded 09/28/24 09:23) hives [facility] Medical History Gastroparesis COVID-19 UTI (urinary tract infection) Amputated toe of right foot Ganglion cyst Urinary incontinence HTN (hypertension) Diabetes mellitus Urinary incontinence Surgical History History of left below knee amputation S/P carpal tunnel release History of surgical removal of ganglion cyst S/P rotator cuff repair History of surgery Social History Are you a primary hospice patient care secretary to a significant other at home: No Do you presently have visiting nurse or other home services: No Alcohol intake: never Patient Tobacco Use Status: Former Tobacco user Substance Use Type: Marijuana Current occupational status: disabled Current occupation: rt handed Physical Exam Vital Signs: BMI result Body Mass Index 39.5 Assessment & Plan Assessment & Plan (1) Carpal tunnel syndrome: Code(s): G56.00 - Carpal tunnel syndrome, unspecified upper limb Category: Medical Plan History of Present Illness The patient is a 64-year-old female presenting with bilateral carpal tunnel syndrome. She has undergone previous surgical intervention for the right wrist without complete resolution of symptoms. Persistent numbness and tingling in the middle and small fingers are noted, consistent with her diagnosis. This condition is complicated by known diabetic neuropathy. Additionally, the patient presents with symptoms suggestive of cubital tunnel syndrome. Her symptoms vary, with intermittent sensations in the elbow and hand. She has diabetes, with a last known A1c between 7.2 and 7.4, and a significant surgical history, having previously experienced cardiac arrest under anesthesia. Current medications include Eliquis. Review of Systems - Neurological: Reports numbness and tingling in the middle and small fingers bilaterally; reports sensation in the elbow. - Endocrine: Reports diagnosis of diabetes mellitus. Systems reviewed and are negative except as per HPI and below Physical Exam Neuro:Decreased sensation in the Median nerve distribution of the left hand. Normal sensation to all other digits in the left hand today.Normal sensation in the tips of all digits of the right hand today.No thenar or intrinsic wasting.Good APB muscle firing and good finger cross. Vascular:Capillary refill brisk. ROM:Patient can make a fist and extend all their digits. Skin:No lacerations or abrasions noted. General:No ecchymosis. No erythema or evidence of infection. Results - Tests and Diagnostics: EMG and nerve conduction study confirmed bilateral carpal and cubital tunnel syndromes. Procedure - Informed consent was obtained for carpal tunnel release on the left hand. The risks, including injury to blood vessels, nerves, tendons, infection, and potential for unsatisfactory results, were discussed. The procedure will be performed under local anesthesia using lidocaine. Plan The patient's bilateral carpal tunnel syndrome will be addressed surgically on the left with a carpal tunnel release. Details of the plan were discussed, including its compatibility with her controlled diabetes level. Symptoms of cubital tunnel syndrome are noted, but no intervention planned at this stage. Improvements in symptoms are anticipated within the four-week recovery time. Surgery will be performed under local anesthesia due to the patient's previous cardiac arrest event, for which detailed consent has been provided and obtained. The existing Eliquis regimen will continue without interruption. I educated the patient about the condition. I discussed both operative and nonoperative treatment options. The patient would like to proceed with surgery. The risks and benefits of operative treatment were discussed with the patient and the patient wishes to proceed with surgery. These risks include, but are not limited to, risk of damage to blood vessels, nerves, tendons, infection, recurrence, incomplete relief of preoperative symptoms, persistent pain, possible need for further surgery, and the risks associated with regional blocks and/or anesthesia. Plan is to take the patient to the operating room at some point in the next few weeks for the following procedures: 1. Left carpal tunnel release under local All of the preoperative paperwork including the consent was discussed today. All of the patient's questions were answered in the clinic today. The patient understands that they will be in contact with our hospitality director to discuss scheduling their procedure. Patient reports diabetes, last A1c 7.4 Reports blood thinners Denies asthma, heart issues, lung issues, kidney issues, or current smoking. Patient was informed and verbally consented to the use of an ambient scribe for clinic note documentation during this visit. Discussion Notes I discussed with the patient that her EMG and nerve conduction studies confirmed bilateral carpal tunnel syndrome and cubital tunnel syndrome. Surgical intervention for the left carpal tunnel is recommended and planned under local anesthesia due to the patient's past cardiac arrest experience. I highlighted the advantages of local anesthesia in mitigating significant risks. Details of the surgery were reviewed, including potential risks of nerve, tendon, and vascular injury, alongside infection. The expected four-week recovery and post-surgical restrictions were clearly outlined to the patient. Consent was obtained to proceed, aiming to manage her condition, improve symptoms, and accommodate her preferred timeline. Patient Instructions - Prepare for the carpal tunnel procedure in December. - Continue taking Eliquis as prescribed. - Eat and drink normally on the day of the procedure. - Wear a short-sleeve shirt on the day of surgery. - Protect the surgical site postoperatively by keeping it clean and dry, especially during bathing. - Limit lifting with the operative hand for four weeks post-surgery, avoiding anything heavier than a cellphone. - Schedule a two-week postoperative visit for suture removal. - Follow-up with a preoperative visit if surgery is scheduled beyond three months. Coding Level of Care Code New Pt Level 4 (06603) Diagnoses Carpal tunnel syndrome G56.00
[2024-09-28 08:47] VITALS: BMI 39.5
--- OUTSIDE RECORDS SUMMARY | 2024-09-28 08:58 | XMS_ITS | Data Portability ---
Author Organization [place] - [facility], Allergy Address [address] [address] Care Team Providers Care Char Conveyor Tender Cellar Name Role Phone ELLA MICHAEL Primary Care Provider Assessment Encounter Date Assessment Date Assessment LastModified by Organization Details LastModified Time 09/13/2024 09/13/2024 63 yo F presents for follow up of her left ear. No sign of infection. TM intact and middle ear space well aerated. She can continue the vinegar drops for maintenance and lotrisone sparingly to the EAC meatus as needed. Audiometric testing today demonstrates normal hearing and type A tympanometry bilaterally. Given that ear canal is healthy in appearance she will follow up in 6 months. Patient seen and evaluated by ANDRZEJ Mejia Not available 09/13/2024 15:21:33 Plan of Treatment Reminders Order Date Submit Date Provider Last Modified By Organization Details Last Modified Time Details Appointments [facility] 15 2024 02:15P Moncho NELSON MD Not available Not available Not available Lab None recorded . Referral None recorded . Procedures None recorded . Surgeries None recorded . Imaging MRI, brain, w/wo contrast - prefers [facility] eld 2023 024 david [facility] ([facility]), [address] [facility], [place], [address], 01/03/2024 14:20:34 Medication Orders clotrima zole-bet amethaso ne 1 %-0.05 % topical cream 2023 024 [facility] - [place], [place] - [phone], [address] [place], [address], 02/29/2024 15:08:30 Patient TargetsNo targets recorded. Patient InstructionsNo instructions recorded. Reason for Referral None Reported. Results Created Date Observation Date Name Description Value Unit Range Abnormal Flag Note LastModifiedBy Organization Detail LastModifiedTime 12/13/19 24 12/12/2023 MRI, brain + brain stem, w/wo contr ast [facility] Access ion Number : [id number] Patiangela t Name: Maribell Sweeney Record Number : [id number] Date of : 1960 Date of Exam: 2023 Referr ing Physic kellen: Duran Estes [facility] [address] [place] [address] Exam: MR Brain (C-/C+ ) CPT 36427 Room Descri ption: [facility] Verio 3.0T MR Brain (C-/C+ ) CPT 47170 INDICA TION / [facility] ON: [...] onical ly Signed By: Abdulaziz Parmar MD [facility] ([facility]) [address], [place], [address], 12/31/2023 04:57:08 12/28/19 24 07/18/2023 imagi ng/di agnos tic resul t No observ ation record ed. [email or web address] Not Available 03:26:08 12/28/19 24 07/18/2023 imagi ng/di agnos tic resul t No observ ation record ed. [email or web address] Not Available 03:26:11 12/28/1907/19/2023 imagi ng/di agnos tic resul t No observ ation record ed. [email or web address] Not Available 03:26:12 12/28/1908/04/2020 imagi ng/di agnos tic resul t No observ ation record ed. [email or web address] Not Available 03:26:14 12/28/19 24 04/08/2021 imagi ng/di agnos tic resul t No observ ation record ed. [email or web address] Not Available 03:26:50 06/14/19 25 05/30/2024 MRI, cervi elina spine , w/o contr ast No observ ation [facility] [address] [address], [place], [address], 06/14/2024 10:19:22 06/20/19 25 05/30/2024 MRI, cervi elina spine , w/o contr ast No observ ation record ed. [email or web address] Not Available 2024 16:10:50 09/18/19 25 09/13/2024 audio gram No observ ation record ed. [email or web address] Not Available 2024 11:25:21 Result Notes None recorded. Problems Name Problem SNOMED Code Status Onset Date Resolution Date Notes Provider Name and Address Organization Details Recorded Time Otalgia of left ear 2380259518 Active 2020 Otalgia, left ear; Note: Date Diagnosed : 04/08/2021 3:18 PM (H92.02) Not Available [facility] 02:15:47 Diffuse otitis externa 05364475 Active 2020 Diffuse otitis externa, left ear; Note: Date Diagnosed : 07/17/2020 5:26 PM (H60.312) Note: Date Diagnosed : 07/17/2020 5:26 PM (H60.312) Not Available [facility] 4 00:49:08 Pain of left temporoma ndibular joint 96859999164 252393 Active 2020 Arthralgi a of left temporoma ndibular joint; Note: Date Diagnosed : 04/08/2021 3:18 PM (M26.622) Not Available [facility] 4 02:15:35 Tinnitus of left ear 86912468632 06 Active 2020 Tinnitus, left ear; Note: Date Diagnosed : 04/08/2021 3:18 PM (H93.12) Not Available [facility] 4 02:13:36 Disorder of nasal sinus 9473121 Active 2019 Unspecifi ed disorder of nose and nasal sinuses; Note: Date Diagnosed : 12/11/2019 7:07 PM (J34.9) Not Available [facility] 4 02:14:50 Disorder of the nose 35323460 Active 2019 Unspecifi ed disorder of nose and nasal sinuses; Note: Date Diagnosed : 12/11/2019 7:07 PM (J34.9) Not Available [facility] 4 02:14:50 Dysphagia 04967671 Active 2017 Dysphagia , unspecifi ed; Note: Date Diagnosed : 10/26/2017 3:35 PM (R13.10) Not Available [facility] 4 02:15:17 Acute maxillary sinusitis 44831460 Active 2019 Acute maxillary sinusitis , unspecifi ed; Note: Date Diagnosed : 12/11/2019 7:07 PM (J01.00) Not Available [facility] 4 02:13:26 Itching of skin 772399835 Active 2019 Pruritus, unspecifi ed; Note: Date Diagnosed : 12/17/2019 9:41 AM (L29.9) Not Available [facility] 4 02:15:04 Gastroeso phageal reflux disease without esophagit is 702028585 Active 2017 Gastro-es ophageal reflux disease without esophagit is; Note: Date Diagnosed : 10/26/2017 3:36 PM (K21.9) Not Available [facility] 4 02:13:57 Sensorine ural hearing loss 15126416 Active 2020 Sensorine ural hearing loss, unilatera l, left ear, with unrestric trisha hearing on the contralat eral side; Note: Date Diagnosed : 08/04/2020 11:03 AM (H90.42) Not Available [facility] 4 02:14:29 Trigemina l neuralgia 38507462 Active 2023 DURAN NELSON MD [address] [facility],[address] [address], [place], [address] , [facility] - [facility] 4 18:40:58 Localized masticato ry muscle soreness 843699852 Active 2023 Myalgia of masticati on muscle; Note: Date Diagnosed : 07/26/2023 2:53 PM (M79.11) Not Available [facility] 4 02:15:11 Type 2 diabetes mellitus without complicat ion 152229011 Active 2023 Type 2 diabetes mellitus without complicat ions; Note: Date Diagnosed : 06/13/2023 1:31 PM (E11.9) Not Available [facility] 4 02:15:17 Abnormal auditory perceptio n 04037200 Active 2024 Shelia BEY [address] [facility] [address], [place], [address] , [facility] - [facility] 5 15:01:40 Problem Notes None recorded. Procedures Surgical History Date Name Laterality Status Provider Name and Address Organization Details Recorded Time 09/13/2024 Air & Speech Audio with Tymps - 34757, 58122 & [address]00 completed Shelia BEY [address] [facility],[address], [place], [address], [place] - [facility] [place] 09/13/2024 15:01:28 Imaging Results Imaging Date Name Status LastModified by Organiz ation Details LastModified Time 12/12/2023 MRI, brain + brain stem, w/wo contrast completed [facility] ([facility]) [address], [place], [address], 12/31/2023 04:57:08 07/18/2023 imaging/diagno stic result completed Information not available 12/28/2023 03:26:08 07/18/2023 imaging/diagno stic result completed Information not available 12/28/2023 03:26:11 07/19/2023 imaging/diagno stic result completed Information not available 12/28/2023 03:26:12 08/04/2020 imaging/diagno stic result completed Information not available 12/28/2023 03:26:14 04/08/2021 imaging/diagno stic result completed Information not available 12/28/2023 03:26:50 05/30/2024 MRI, cervical spine, w/o contrast completed [facility] ([facility]) [address] [facility] [address] [address], [place], [address], 06/14/2024 10:19:22 05/30/2024 MRI, cervical spine, w/o contrast completed [email or web address] Information not available 06/20/2024 16:10:50 09/13/2024 [facility]ogram [email or web address] Information no t available 09/17/2024 11:25:21 Procedure Notes None recorded. Medical Equipment None Reported. Allergies Allergen ID Allergen Name Allergen Category Reaction Reaction Severity Criticality Documentation Date Start Date Code Code System Note Provider Name and Address Organization Details Recorded Time 12211 aspirin medicatio n other Not available Not available 09/20/2023 1191 RxNorm React ion: unkno wn, unspe cifie d;; Not Available [facility] 00:49:02 78382 acetamino phen / oxycodone medicatio n other Not available Not available 09/20/2023 67920 3 RxNorm React ion: unkno wn, unspe cifie d;; Not Available [facility] 4 00:49:48 57655 naproxen medicatio n other Not available Not available 09/20/2023 7258 RxNorm React ion: unkno wn, unspe cifie d;; Not Available [facility] 4 00:49:48 Medications Name Sig Start Date Stop Date Status Note LastModified by Organization Details LastModified Time d3 50 mcg (1999) caps active Not Available Not Available Not Available d3 super strength 50 mcg (1999) caps active Not Available Not Available Not [...] one (1) tablet by mouth every morning. with a 20mg celex TDD IS 60MG active Not Available Not Available No t Available trazodone 50 mg tablet Take one (1)- (2) tablet by mouth at bedtime active Not Available Not Available No t [...] 1 TABLET BY MOUTH ONCE DAILY FOR 3 DAYS active Not Available Not Available No t Available benzonata te 200 mg capsule TAKE 1 CAPSULE BY MOUTH 3 (THREE) TIMES A DAY 06/14 completed Not Available Not Available Not Available phenazopy ridine 200 mg tablet TAKE 1 TABLET BY MOUTH two (2) times a day WITH FOOD active Not Available Not Available No [...] BY MOUTH two (2) times a day WITH MEALS active Not Available Not Available No t Available amlodipin e 5 mg tablet TAKE 1 TABLET BY MOUTH ONCE DAILY active Not Available Not Available No t Available ciproflox acin 500 mg tablet Take 1 tablet by mouth twice a day 06/14 completed Medicati on ID: [id number] D uration Value: 10 Brand Name: ciproflo xacin HCl Send Method: E-Prescr ibed Sub s Allowed: subs OK Medic ationGen ericName : ciproflo xacin HCl Not Available Not Available Not Available omeprazol e 40 mg capsule,d elayed release TAKE 1 CAPSULE BY MOUTH 1/2 TO 1 HOUR BEFORE BREAKFAS T active Not Available Not [...] mg tablet 2017 active Medicati on ID: [id number] D uration Value: 30 Brand Name: alesia lock S end Method: E-Prescr ibed Sub s Allowed: subs OK Speci al Instruct ion: TAKE ONE TABLET BY MOUTH 3 (THREE) TIMES A DAY NEEDED FOR ITCH Med icationG enericNa me: alesia ortizine Not Available Not Available Not Available citalopra m 20 mg tablet Take one (1) tablet by mouth every morning with a d40mg TDD is 60mg Every morning active Not Available Not Available No t Available temazepam 30 mg capsule Take one [...] t Available lidocaine 5 % topical patch Apply 1 patch to the affected area for 12 hours a day. Remove for 12 hours active Not Available Not Available No t Available clotrimaz ole 1 % topical solution 01/11 completed Medicati on ID: [id number] D uration Value: 14 Prescri bed By Name: AZUCENA Andrade nd Name: charity Pa d Method: E-Prescr ibed Sub s [...] small amount 2020 active Medicati on ID: [id number] D uration Value: 7 Prescri bed By [...] Available Not Available lorazepam 1 mg tablet Take one (1) tablet by mouth daily AND two (2) tablets at bedtime active Not Available Not Available No t [...] drops,randy pension 01/11 completed Medicati on ID: [id number] P rescribe d By Name: AZUCENA Andrade nd Name: TobraDex Send Method: E-Prescr ibed Sub s Allowed: subs OK Speci al Instruct ion: Instill 3 drops in the affect ear BID for 14 days Med icationG enericNa me: TobraDex Not Available Not Available Not Available insulin lispro (U-100) 100 unit/mL subcutane ous pen INJECT 30 UNITS UNDER THE SKIN 3 (THREE) TIMES A DAY active Not Available Not Available No t Available ezetimibe 10 mg tablet TAKE 1 [...] capsule TAKE 1 CAPSULE BY MOUTH EVERY TWELVE HOURS FOR 3 DAYS. must TAKE WITH A MEAL OR FOOD active Not Available Not Available No t Available duloxetin e 30 mg capsule,d elayed release TAKE 1 CAPSULE BY MOUTH EVERY MORNING. active Not Available Not Available No t Available Nyamyc 100,000 unit/gram topical powder Apply topicall y 3 (three) times a day. active Not Available Not Available No t Available DermOtic Oil 0.01 % ear drops 5 drop 2020 active Medicati on ID: [id number] D uration Value: 30 Prescri bed By [...] by mouth 10/19 completed Medicati on ID: [id number] D uration Value: 30 Prescri bed By Name: VINAY Cheney nd Name: omeprazo le Send Method: E-Prescr ibed Sub s Allowed: subs OK Speci al Instruct ion: Take 1 tablet by mouth every day before a meal Med icationG enericNa me: omeprazo le Medic ation ID: [id number] D uration Value: 30 Prescri bed By Name: Paula Edward Dalhaus, LITHOGRAPHIC STRIPPER-C Bra nd Name: omeprazo le Send Method: E-Prescr ibed Sub s Allowed: subs OK Speci al Instruct ion: Take 1 tablet by mouth every day before a meal Med icaCharlie angelaAndre me: omeprazo le Not Available Not Available Not Available diclofena c 1 % topical gel APPLY TO THE AFFECTED AREA TOPICALL Y two (2) times a day DIRECTED active Not Available Not Available No t Available Vitamin D3 50 mcg (2,000 unit) capsule TAKE 1 CAPSULE BY MOUTH ONCE DAILY active Not Available Not Available No t Available Eliquis 5 mg tablet TAKE 1 TABLET BY MOUTH two (2) times a day active Not Available Not Available No t Available Comfort EZ Pen Speonk 32 gauge x 5/32 USE TO INJECT insulin 5 TIMES A DAY active Not Available Not Available No t Available Jardiance 10 mg tablet TAKE 1 TABLET BY MOUTH EVERY MORNING active Not Available Not Available No t Available Asmanex HFA 100 mcg/actua tion aerosol inhaler INHALE 2 PUFFS BY MOUTH INTO THE lungs two (2) times a day. rinse mouth and throat after use active Not Available Not Available No t Available Flonase Allergy Relief 50 mcg/actua tion nasal spray,randy pension 2 puff into both nostrils 2019 active Medicati on ID: [id number] D uration Value: 30 Prescri bed By [...] Available No t Available FreeStyle Antonio 2 Dowell USE DIRECTED active Not Available Not Available [...] Comfort Safety Pen Needle 32 gauge x /32 USE TO INJECT insulin 5 TIMES A [...] Updated DateTime 12/27/2023 157.48 cm 35.5 kg/m2 92839.92 g Nyla Rowland [place] - [facility] 12/27/2023 13:07:29 Date Recorded Body height Body mass index (BMI) Body weight Provider Name and Address Organization Details Last Updated DateTime 01/12/2024 157.48 cm 35.5 kg/m2 48014.92 g Nyla Rowland [facility] 01/12/2024 13:05:16 Date Recorded Body height Body mass index (BMI) Body weight Provider Name and Address Organization Details Last Updated DateTime 06/14/2024 157.48 cm 36.9 kg/m2 05122.66 g Nyla Rowland [facility] 06/14/2024 09:18:50 Date Recorded Body height Body mass index (BMI) Body weight Provider Name and Address Organization Details Last Updated DateTime 10/20/2023 157.48 cm 38.2 kg/m2 51307.81 g Nyla Rowland [facility] 10/20/2023 13:21:31 Social History None recorded. [...] Note [id number] DURAN NELSON MD [facility] on [address] [place] [address] 10/20/2023 13:04:44 10/20/2023 14:59:17 Otalgia of left ear 6543977264 H92.02 63 yo F presents for follow up of her left ear. She is here for scheduled cerumen removal, but she is concerned about persistent pain. She was seen in [place] at the end of January and had [...] of her neurology visit. Trigeminal neuralgia 316 92612 G50.0 [id number] DURAN NELSON MD [facility] on [address] [place] [address], [place] [address] 12/27/2023 13:00:52 12/27/2023 13:42:13 Diffuse otitis externa 24682286 H60.312 Otalgia of left ear 1010 997954 H92.02 63 yo F presents for follow up of her left ear. She is here for scheduled cerumen removal, but she is concerned about persistent pain. She was seen in [place] at the end of January and had [...] Lotrisone into the canal. Follow-up 2 weeks. [id number] DURAN NELSON MD [facility] on [address] [place] [address], [place] [address] 01/12/2024 12:56:02 01/12/2024 14:21:07 Otalgia of left ear 8470776368 H92.02 63 yo F presents for follow up of her left ear. Lotrisone is gone. No infection. Middle ear aerated. she can continue the vinegar drops for maintenanc e as lotrisone sparingly to the EAC meatus. Follow up three months for reassessme nt and cleaning. [id number] DURNA NELSON MD [facility] on [address] [place] [address], [place] [address] 06/14/2024 09:03:19 06/14/2024 09:30:18 Otalgia of left ear 6329996541 H92.02 63 yo F presents for follow up of her left ear. No infection. Middle ear aerated. she can continue the vinegar drops for maintenanc e and lotrisone sparingly to the EAC meatus as needed. Follow up three months for reassessme nt. Will recheck hearing then. If ear canal is healthy appearing at that visit, we will stretch follow-up to 6 months. [id number] TYESHA CARRION PA-C [facility] on [address] [place] [address], [place] [address] 09/13/2024 14:30:16 09/13/2024 15:19:39 Abnormal auditory perception 44227576 H93.292 Audiologic al evaluation results: Right ear: {{Normal* Normal through 2 kHz Mild M oderate Mo derately-s evere Hui re Profoun d}} {{hearing* hearing. sloping to a mild slopi ng to a moderate s loping to moderately severe slo ping to severe slo ping to profound f lat high frequency low frequency mid frequency cookie bite humphrey curve}} {{with* se nsorineura l hearing loss with condu ctive hearing loss with mixed hearing loss with}} {{excellen t* good fa ir poor no measurable }} word recognitio n. Left ear: {{Normal* Normal through 2 kHz Mild M oderate Mo derately-s evere Hui re Profoun d}} {{hearing* hearing. sloping to a mild slopi ng to a moderate s loping to moderately severe slo ping to severe slo ping to profound f lat high frequency low frequency mid frequency cookie bite humphrey curve}} {{with* se nsorineura l hearing loss with condu ctive hearing loss with mixed hearing loss with}} {{excellen t* good fa ir poor no measurable }} word recognitio n. Tympanomet ry: Right Ear:{{Type A* Type A with rounded peak Type A with double peak Type As Type As with rounded peak Type Ad Type C Type C, shallow & rounded peak Type B Type B with large volume Cou ld not maintain a hermetic seal}} Left Ear:{{Type A* Type A with rounded peak Type A with double peak Type As Type As with rounded peak Type Ad Type C Type C, shallow & rounded peak Type B Type B with large volume Cou ld not maintain a hermetic seal}} Health Concerns Section Related Observation LastModified by Organization Detai ls LastModified Time None Recorded Concern Status LastModified by Organization Details LastModified Time None Recorded Advance Directives Directive None Recorded Payers Insurance Date Sequence Insurance Name Policy Number Policy Yost Covered Member ID Yost Member ID Guarantor Name 10/20/2023 1 [facility] (MEDICARE SUPPLEMENT) [id number] Maribell H Colon [id number] 1 Maribell H Colon 09/13/2024 1 [facility] [id number] Maribell H Colon [id number] 1 Maribell H Colon Notes Date Note Type Note Provider Name and Address Organization Details Recorded Time 10/20/2023 text/html 63 yo F presents for follow up of her left ear. She is here for scheduled cerumen removal, but she is concerned about persistent pain. She was seen in [place] at the end of January and had [...] a CT scan of the neck at [place] which did not show any sign of [...] mouth to to tightness DURAN NELSON MD [address] [place] [address], [phone], [facility] - [facility] 10/30/2023 18:46:54 12/27/2023 text/html 63-year-old luis carlos bull presents today for follow-up and reassessment of her ear. PV:63 yo F presents for follow up of her left ear. She is here for scheduled cerumen removal, but she is concerned about persistent pain. She was seen in [place] at the end of January and had [...] a CT scan of the neck at [place] which did not show any sign of [...] to to tightness DURAN NELSON MD [address] [facility],[address], [address], [facility] - [facility] 01/03/2024 08:17:01 01/12/2024 text/html 63 yo F presents for follow up after lotrisone injection on the left. She does feel improvement in left otalgia. \ She was seen in [place] at the end of January and had [...] on the left. DURAN NELSON MD [address] [facility],[address], [address], [facility] - [facility] 01/18/2024 06:10:12 06/14/2024 text/html Oxcarbazepine helping [...] Most recent AIC 7.4. DURAN NELSON MD [address] [place] [address], [phone], [facility] - [facility] 06/14/2024 09:30:26 09/13/2024 text/html 63 year old luis carlos bull presents for 3 month follow up of her left ear. She reports continued itching. She has been using Vinegar drops. She still has sensation that there is something in the ear after a shower. DURAN NELSON MD [address] [facility],[address], [address], [facility] - [facility] 09/17/2024 08:17:08 OBGyn Episode No OBEpisode recorded.
== END 2024-09-28 09:59 | disposition home or self-care (01) ==
LOC: HO.HOS 08:43
PROVIDERS: PCP Hospitalist
DX: G56.03 Carpal tunnel syndrome, bilateral upper limbs (principal)
CPT/HCPCS: 99204

== ENCOUNTER → 2024-09-28 08:43 | Outpatient (BNVA) | payer OTHER, SELFPAY | PROVIDERS: PCP Hospitalist | DX: G56.03 Carpal tunnel syndrome, bilateral upper limbs (principal) | CPT/HCPCS: 99202 ==

== ENCOUNTER 2024-11-07 09:34 | Outpatient (AMB) | payer OTHER, SELFPAY ==
--- OUTSIDE RECORDS SUMMARY | 2024-11-07 09:55 | XMS_ITS | Patient Health Record ---
Author Organization [facility] Address [address] [place] [address] Care Team Providers Care Anesthesiologist/Physician Name Role Phone FERNANDA JARAMILLO Primary Care Provider Adolfo Vilchis Unavailable [phone] Allergies Allergen (clinical drug ingredient) Drug/Non Drug [...] kathleen Results Component Value Reference Range Notes Albumin/Creatinine Ratio,Uri [id number] Reviewed date:09/03/2024 02:43:41 PM Interpretation: Performing Lab:[facility], [facility], Phone - [phone], Director - Mohsen Notes/Report: Creatinine, Urine 75.8 Not Estab. mg/dL Albumin, Urine 24.0 Not Estab. ug/mL Alb/Creat Ratio 32 0-29 mg/g creat Normal: 0 - 29 Moderately increased: 30 - 300 Severely increased: >300 Lipid Panel-[id number] Reviewed date:09/03/2024 02:43:34 PM Interpretation: Performing Lab:[facility], [facility], Phone - [phone], Director - Mohsen Notes/Report: Cholesterol, Total 126 100-199 mg/dL Triglycerides 205 0-149 mg/dL HDL Cholesterol 38 >39 mg/dL VLDL Cholesterol Timothy 33 5-40 mg/dL LDL Chol Calc (NIH) 55 0-99 mg/dL Comp. Metabolic Panel (14)- Reviewed date:09/03/2024 02:43:50 PM Interpretation: Performing Lab:[facility], [address] [facility], Phone - [phone], [facility] - [facility] Notes/Report: Glucose 145 70-99 mg/dL BUN 21 8-27 mg/dL Creatinine 1.12 0.57-1.00 mg/dL eGFR 56 >59 mL/min/1.73 BUN/Creatinine Ratio 19 12-28 Sodium 140 134-144 mmol/L Potassium 5.0 3.5-5.2 mmol/L Chloride 102 96-106 mmol/L Carbon Dioxide, Total 21 20-29 mmol/L Calcium 9.5 8.7-10.3 mg/dL Protein, Total 6.2 6.0-8.5 g/dL Albumin 4.0 3.9-4.9 g/dL Globulin, Total 2.2 1.5-4.5 g/dL Bilirubin, Total 0.4 0.0-1.2 mg/dL Alkaline Phosphatase 96 44-121 IU/L AST (SGOT) 23 0-40 IU/L ALT (SGPT) 38 0-32 IU/L Acetaminophen, MS, Ur RFX Reviewed date:11/21/2023 08:01:23 AM Interpretation: Performing Lab:[facility], [address] [place] [address], Phone - [phone], Director - [facility] Notes/Report: ANALGESICS/NSAIDS +POSITIVE+ Acetaminophen PRESENT Comp. Metabolic Panel (14)- Reviewed date:08/04/2024 01:36:37 PM Interpretation: Performing Lab:[facility], [address] [facility] [place], Phone - [phone], [facility] Notes/Report: Glucose 101 70-99 mg/dL BUN 19 [...] IU/L ALT (SGPT) 46 0-32 IU/L Lipid Panel-[id number] Reviewed date:08/16/2024 04:22:18 PM Interpretation: Performing Lab:[facility], [address] [place] [address], Phone - [phone], Director - MDJodry Notes/Report: Cholesterol, Total 132 100-199 mg/dL Triglycerides 228 0-149 mg/dL HDL Cholesterol 38 >39 mg/dL VLDL Cholesterol Timothy 37 5-40 mg/dL LDL Chol Calc (NIH) 57 0-99 mg/dL Albumin/Creatinine Ratio,Uri [id number] Reviewed date:08/04/2024 01:31:32 PM Interpretation: Performing Lab:[facility] [address] [place] [address], Phone - [phone], Director - MDJodry Notes/Report: Creatinine, Urine 88.2 Not Estab. mg/dL Albumin, Urine 19.2 Not Estab. ug/mL Alb/Creat Ratio 22 0-29 mg/g creat Normal: 0 - 29 Moderately increased: 30 - 300 Severely increased: >300 Hemoglobin [id number] Reviewed date:08/04/2024 01:31:25 PM Interpretation: Performing Lab:[facility] [address] [place] [address], Phone - [phone], Director - MDJodry Notes/Report: Hemoglobin A1c 7.1 4.8-5.6 % . Prediabetes: 5.7 - 6.4 Diabetes: >6.4 Glycemic control for adults with diabetes: <7.0 Hemoglobin [id number] Reviewed date:02/20/2024 08:28:37 AM Interpretation: Performing Lab:[facility]ruti Ch[facility], Phone - [phone], Director - Mohsen Notes/Report: Hemoglobin A1c 6.1 4.8-5.6 % . Prediabetes: 5.7 - 6.4 Diabetes: >6.4 Glycemic control for adults with diabetes: <7.0 HPV WITH REFLEX GENOTYPE Reviewed date:08/08/2024 01:37:20 PM Interpretation: Performing Lab: Notes/Report: HPV Negative Negative MG MAMMO DIGITAL SCREENING W TONG MORENOAT Reviewed date:08/22/2024 02:13:16 PM Interpretation: Performing Lab: Notes/Report: Note See Note [facility], a member of [employer] Patient Name: MARIBELL TAYLOR Date of : 1960 Reason for Exam: Breast cancer screen, avg risk, asymptomatic (Age => 42y) Exam Date: 08/20/2024 [id number] EST Report Status: Final Ordering Provider: TONY RAPP PCP: ELLA MICHAEL EXAM: SCREENING MAMMOGRAPHY, BILATERAL HISTORY: SCREENING. Paternal aunt diagnosed with breast cancer age 39 COMPARISON: 10/21/20 TECHNIQUE: Synthesized CC and MLO projections of each breast. Tomosynthesis of each breast in the CC and MLO projections. 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 TISSUE DENSITY: The breasts are [...] year. [facility] [address], [address] -------- FINAL REPOR T -------- Dictated By: Sd Restrepo Dictated Date: 08/20/2024 16:32 ET Assigned Physician: Sd Restrepo Reviewed and Electronically Signed By: Sd Restrepo Signed Date: 08/20/2024 16:39 ET Workstation ID: [id number] Transcribed By: Self Edit Transcribed Date: 08/20/2024 [...] screening system. Technical cytopathology services provided by [facility], at [address] [place] [address] (CLIA # [id number]/Omi Connelly MD, Oil Rag Washer.) Console Pap Interpretation Reported General Categorization Negative ToxAssure Flex 23, Urine-[id number] Reviewed date:11/23/2023 09:11:12 AM Interpretation: Performing Lab:[facility], [address] [place] [address], Phone - [phone], Director - Sheri Notes/Report: Summary Report FINAL [...] NICOTINE METABOLITE Negative Cotinine Not Detected Hemoglobin [id number] Reviewed date:11/15/2023 07:52:21 AM Interpretation: Performing Lab:[facility] [place], [address] [facility] [place], Phone - [phone], Director - MDNigel Notes/Report: Hemoglobin A1c 6.6 4.8-5.6 % . Prediabetes: 5.7 - 6.4 Diabetes: >6.4 Glycemic control for adults with diabetes: <7.0 Lipid Panel-[id number] Reviewed date:08/26/2024 07:23:29 AM Interpretation: Performing Lab:[facility] [place], [address] [facility] [place], Phone - [phone], Director - MDNigel Notes/Report: Cholesterol, Total 125 100-199 mg/dL Triglycerides 203 0-149 mg/dL HDL Cholesterol 39 >39 mg/dL VLDL Cholesterol Timothy 33 5-40 mg/dL LDL Chol Calc (NIH) 53 0-99 mg/dL Reason For Referral Reason Evaluation and manag ement - Dr Cruz Diagnosis 1 Other hammer toe(s) (acquired), right foot (M20.41) Referral Organization [facility] Referring Provider First Name ELLA Referring Provider Last Name JAZMIN Referring Provider Speciality Internal edicine Referred Provider Specialty Podiatry General Notes Referral sent to [facility] in [place] - Office will call patient for scheduling.Janene [...] Low back pain (M54.5 ) Referral Organization [facility] Referring Provider First Name ELLA Referring Provider Last Name GU Referring Provider Speciality Internal edicine Referred Provider Specialty Pain Medicin e General Notes Referral sent to [facility] in [place] - Office will call patient for scheduling., Naty Watters 02/21/2024 10:54:41 AM > Referral Priority Routine Medications Medication SIG (Take, Route, Frequency, Duration) Notes Start Date End Date Status Alcohol Pads 70 % USE TOPICALLY THREE TIMES DAILY; Duration: 30 days Active Lidocaine 5 % 1 patch remove after 12 hours Externally Once a day; Duration: 90 days Active True Comfort Pen [place] 32G X 4 MM USE TO INJECT insulin 5 TIMES A DAY; Duration: 25 Active Eliquis 5 mg TAKE ONE TABLET BY MOUTH two (2) times a day 30; Duration: 30 Active Zofran 4 MG as directed Orally; Duration: 7 days 07/07/2018 Unknown Loratadine 10 mg TAKE 1 TABLET BY MOUTH ONCE DAILY; Duration: 30 days Active FreeStyle Lite Test - USE TO TEST FINGER STICK BLOOD SUGAR 3 (THREE) TIMES A DAY; Duration: 30 Active Fluticasone Propionate 50 MCG/ACT SPRAY TWICE INTO EACH NOSTRIL ONCE A DAY; Duration: 30 Unknown hydrOXYzine HCl 25 MG 1 tablet Orally On ce a day; Duration: 90 days Active Montelukast Sodium 10 mg TAKE 1 TABLET B Y MOUTH ONCE A DAY; Duration: 30 days Active Fluconazole 50 MG 1 tablet Orally Daily; Duration: 10 day(s) 06/16/2020 Unknown Meclizine HCl 25 MG 1 tablet as needed Orally every 12 hrs; Duration: 10 days 05/31/2023 Active Azithromycin 250 MG 2 tablet day one 1 tab daily for 4 days Orally daily; Duration: 5 days 03/19/2022 Not-Taking Trulicity 3 MG/0.5ML inject the content of 1 pen under the skin each week as directed Subcutaneous weekly; Duration: 30 days 02/23/2022 Not-Taking Admelog SoloStar 100 UNIT/ML 11 units Subcutaneous three times a day; Duration: 30 Unknown Tvahievv-Lhbpiqayh-RQ 1 % 4 drops into affected ear Otic Three times a day; Duration: 7 days 05/31/2023 Active metroNIDAZOLE 0.75 % _insert 1 APPLICATORFUL VAGINALLY ONCE A DAY AT BEDTIME FOR 10 DAYS; Duration: 10 Unknown Tessalon Perles 100 MG 1 capsule as need ed Orally Three times a day; Duration: 7 days 03/19/2022 Not-Taking Trulicity 1.5 MG/0.5ML inject the conten t of 1 pen under the skin each week as directed Subcutaneous weekly; Duration: 30 days 02/23/2022 Not-Taking Benzonatate 100 MG 1 capsule as needed Orally Three times a day; Duration: 7 days 10/25/2022 Not-Taking Omeprazole 20 mg TAKE 1 CAPSULE BY MOUTH 30 MINUTES BEFORE morning meal; Duration: 30 Active Lidocaine HCl Urethral/Mucosal 2 % APPLY SPARINGLY TO THE AFFECTED AREA ON RIGHT TO THE ARM AND CHEST 2 TO 3 TIMES A DAY IF ITCHY; Duration: 30 Active Lantus SoloStar 100 UNIT/ML INJECT 90 UNITS UNDER THE SKIN ONCE A DAY DIRECTED; Duration: 30 Active hydroCHLOROthiazide 25 mg TAKE 1 TABLET BY MOUTH EVERY MORNING; Duration: 30 Active Serevent Diskus 50 MCG/DOSE Inhale 1 Puff into the lungs 2 times daily for 30 days.; Duration: 30 Active oxyCODONE HCl 30 mg TAKE 1 TABLET BY MOUTH 3 (THREE) TIMES A DAY NEEDED FOR PAIN by mouth 3 times a day; Duration: 14 days 01/02/2024 Not-Taking Myrbetriq 50 MG 1 tablet Orally twice a day; Duration: 30 Urologist Active Benzonatate 100 MG 1 capsule as needed Orally Three times a day; Duration: 7 days 12/06/2023 Not-Taking Ondansetron HCl 4 MG 1 tablet Orally twice a day; Duration: 7 days 11/05/2022 Active predniSONE 10 MG 1 tablet Orally Once a day; Duration: 7 days 10/06/2023 Not-Taking Metoclopramide HCl 10 MG 1 tablet before meals Orally Twice a day; Duration: 30 days 11/01/2022 Active Cephalexin 500 MG 1 capsule Orally every 8 hours; Duration: 7 days 09/21/2023 Not-Taking predniSONE 20 MG 1 tablet Orally Once a day; Duration: 7 days 02/29/2024 Not-Taking FreeStyle Lite - as directed to check blood sugars Dx: E11.9 in vitro three times daily; Duration: 30 days 02/24/2018 Active predniSONE 20 MG 1 tablet Orally Once a day; Duration: 7 days 12/06/2023 Not-Taking EpiPen 2-Amadeo 0.3 MG/0.3ML as directed Injection once as needed; Duration: 30 days 10/02/2020 Active Doxycycline Hyclate 100 MG 1 capsule Orally Twice a day; Duration: 7 days 12/06/2023 Not-Taking Tobramycin 0.3 % 1 drop into affected eye Ophthalmic every 4 hrs; Duration: 7 days 02/01/2024 Not-Taking Habwwvcc-Ohfxpmnsk-WW 1 % 4 drops into affected ear Otic Three times a day; Duration: 7 days 03/18/2023 Not-Taking Benzonatate 100 MG 1 capsule as needed Orally Three times a day; Duration: 14 days 02/29/2024 Active Ofloxacin 0.3 % 10 drops into affected ear Otic Once a day; Duration: 7 days 03/18/2023 Not-Taking Temazepam 30 MG 1 capsule at bedtime as needed Orally Once a day Not-Taking D3 Super Strength 50 MCG (2000 UT) TAKE 1 CAPSULE BY MOUTH ONCE DAILY; Duration: 30 Active Carafate 1 GM/10ML 10 ml on an empty stomach Orally Twice a day; Duration: 30 day(s) 05/04/2021 Not-Taking ProAir HFA 108 (90 Base) MCG/ACT 2 puffs Inhalation Every 4 hours,PRN:for wheezing; Duration: 17 Not-Taking Xopenex 1.25 MG/3ML 3 ml Inhalation three times daily; Duration: 15 Active Ezetimibe 10 mg TAKE 1 TABLET BY MOUTH ONCE DAILY; Duration: 30 Active Flovent HFA 110 MCG/ACT 2 puffs Inhalati on 2 times a day,Instr:rinse mouth and throat after use; Duration: 30 Active tiZANidine HCl 4 MG 1 tablet Orally 3 times a day; Duration: 30 days As needed Active Losartan Potassium 100 mg TAKE 1 TABLET BY MOUTH ONCE DAILY; Duration: 30 Active Atorvastatin Calcium 10 mg TAKE 1 TABLET BY MOUTH ONCE DAILY; Duration: 30 Active Mometasone Furoate 0.1 % Apply sparingly first before calcipotriene twice a day to affected areas on arms and chest as needed 30 30; Duration: 30 Active Citalopram Hydrobromide 40 MG 2 tablet Orally Once a day; Duration: 30 day(s) Psy Active Nebulizer/Tubing/Mouthpie ce - as directed for treatment of Dx: J45.30 inhalation every 4-6 hours prn; Duration: 30 days 06/26/2019 Active amLODIPine Besylate 5 mg TAKE ONE TABLET BY MOUTH ONCE A DAY once a day; Duration: 90 days Active Cyproheptadine HCl 4 MG TAKE ONE TABLET BY MOUTH 3 (THREE) TIMES A DAY NEEDED FOR ITCH 30 30; Duration: 30 Active Easy Touch Lancets 28G - as directed; Duration: 30 days Active LORazepam 1 MG 1 tablet at bedtime as needed Orally Once a day Active Azelastine HCl 0.1 % 1 puff in each nostril Nasally Twice a day Active Albuterol Sulfate HFA 108 (90 Base) MCG/ACT 2 puffs as needed Inhalation every 6 hrs Active Econazole Nitrate 1 % 1 application Externally twice a day; Duration: 30 days 11/05/2022 Active Metoprolol Succinate ER 100 mg TAKE 1 TABLET BY MOUTH ONCE DAILY; Duration: 30 Active Insulin Lispro (1 Unit Dial) 100 unit/mL INJECT 30 UNITS UNDER THE SKIN 3 (THREE) TIMES A DAY; Duration: 30 Active EPINEPHrine 0.3 MG/0.3ML INJECT INTRAMUSCULARLY THE CONTENT OF 1 pen as indicated by anaphylaxis; Duration: 7 Active metFORMIN HCl 850 mg TAKE 1 TABLET BY MOUTH two (2) times a day. TAKE WITH MEALS; Duration: 30 Active Diflucan 150 MG 1 tablet Orally daily; Duration: 3 days 07/31/2024 Active Ozempic (0.25 or 0.5 MG/DOSE) 2 MG/3ML as directed Subcutaneous once a week Active Diclofenac Sodium 1 % as directed Externally 2 times a day; Duration: 30 days Active OXcarbazepine 150 MG 1 tablet Orally Onc e a day Active True Comfort Safety Lancets - USE TO TEST FINGER STICK BLOOD SUGAR 3 (THREE) TIMES A DAY; Duration: 30 Active Omeprazole 40 MG 1 capsule 1/2 to 1 hour before morning meal Orally Once a day; Duration: 30 days Active Ventolin HFA 108 (90 Base) MCG/ACT 1 puff as needed Inhalation every 4 hrs Active Fluconazole 150 mg TAKE 1 TABLET BY MOUTH EVERY 3 DAYS; Duration: 3 Active clonazePAM 1 MG 2 tablets in the am and 2 tablets in pm Orally twice a day CHD Unknown Baclofen 10 MG 1 tablet as needed Orally Twice a day Active Immunizations Vaccine Route Administration Date Status [...] W/U Status Risk Notes Problem Diabetic neuropathy (418128788) Diabetes mellitus due to underlying condition with diabetic neuropathy, unspecified (E08.40) Active confirmed Problem Morbid obesity (disorder) (537323888) Morbid (severe) obesity due to excess calories (E66.01) Active confirmed Problem Anxiety disorder (343114148) Anxiety disorder, unspecified (F41.9) Active confirmed Problem Essential tremor (104806743) Essential tremor (G25.0) Active confirmed Problem Insomnia (297147399) Insomnia, unspecified (G47.00) Active confirmed Problem Obstructive sleep apnea syndrome (39424060) Obstructive sleep apnea (adult) (pediatric) (G47.33) Active confirmed Problem Essential hypertensi on (28309567) Essential (primary) hypertension (I10) Active confirmed Problem Peripheral vascular disease (144521758) Peripheral vascular disease, unspecified (I73.9) Active confirmed Problem Embolism from thrombosis of vein of lower extremity (440947910) Chronic embolism and thrombosis of unspecified deep veins of unspecified lower extremity (I82.509) Active confirmed Problem Uncomplicated mild persistent asthma (984456116) Mild persistent asthma, uncomplicated (J45.30) Active confirmed Problem Polyp of colon (92738531) Polyp of colon (K63.5) Active confirmed Problem Acquired hammer toe of right foot (5538836570426200) Other hammer toe(s) (acquired), right foot (M20.41) Active confirmed Problem Shoulder joint pain (909206041) Pain in left shoulder (M25.512) Active confirmed Problem Lumbosacral radiculopathy (2098885) Radiculopathy, lumbosacral region (M54.17) Active confirmed Problem Dysphagia (86647102) Dysphagia, unspecified (R13.10) Active confirmed Problem Paresthesia (finding ) (05345912) Paresthesia of skin (R20.2) Active confirmed Problem Amputated below knee (595195529) Acquired absence of left leg below knee (Z89.512) Active confirmed Problem Pure hypercholesterolemia (403575024) Pure hypercholesterolem ia, unspecified (E78.00) Active confirmed Problem Chronic kidney disea se stage 3 (disorder) (056860434) Chronic kidney disease, stage 3 unspecified (N18.30) Active confirmed Problem Type 2 diabetes mellitus with other specified complication, without long-term current use of insulin (E11.69) Active confirmed Problem Urinary incontinence (106015058) Urinary incontinence, unspecified type (R32) Active confirmed Problem Gastroesophageal reflux disease (515626008) Gastroesophageal reflux disease, unspecified whether esophagitis present (K21.9) Active confirmed Vital Signs Heart Rate 80 /min 09/17/2024 Temperature 96.5 degrees Fahrenheit 09/17/2024 Blood pressure diastolic 80 mm Hg 09/17/2024 Oximetry 98 % 09/17/2024 Height 62.24 in 09/17/2024 Blood pressure systolic 126 mm Hg 09/17/2024 Weight 224.4 lbs 09/17/2024 BMI 40.72 kg/m2 09/17/2024 Encounters Encounter Location Date Provider Diagnosis [address] [place] [address] 11/14/[address] [place] [address] 12/05/[address] [place] [address] 12/07/[address] [place] [address] 12/19/[address] [place] [address] 01/02/[address] [place] [address] 01/10/[address] [place] [address] 01/25/[address] [place] [address] 02/02/2024 JARAMILLO GUL Other conjunctivitis H10.89 [facility] [address] [place] [address] 02/07/2024 [facility] [address] [place] [address] 02/16/2024 JARAMILLO GU Diabetes mellitus du e to underlying condition with diabetic neuropathy, unspecified E08.40 [facility] [address] [place] [address] 02/23/2024 [facility] [address] [place] [address] 02/28/2024 [facility] [address] [place] [address] 03/05/2024 [facility] [address] [place] [address] 04/16/2024 [facility] [address] [place] [address] 04/16/2024 [facility] [address] [place] [address] 06/21/2024 [facility] [address] [place] [address] 07/13/2024 [facility] [address] [place] [address] 07/30/2024 [facility] [address] [place] [address] 08/16/2024 [facility] [address] [place] [address] 08/16/2024 [facility] Pure hypercholesterolemia, unspecified E78.00 [facility] [address] [place] [address] 08/22/2024 JARAMILLO JAZMINL [address] [place] [address] 08/22/2024 JARAMILLO GUL [address] [place] [address] 09/25/2024 JARAMILLO GUL Acute URI J06.[address] [place] [address] 02/29/2024 Ghadeer Mazloum Acute URI J06.[address] [place] [address] 12/06/2023 JARAMILLO GUL Mild persistent asth ma, uncomplicated J45.[address] [place] [address] 02/01/2024 JARAMILLO GUL Other conjunctivitis H10.89 ; Left temporomandibular joint disorder, unspecified M26.602 ; Radiculopathy, lumbosacral region M54.17 and Other hammer toe(s) (acquired), right foot M20.[address] [place] [address] 07/31/2024 JARAMILLO GUL Diabetes mellitus du e to underlying condition with diabetic neuropathy, unspecified E08.40 ; Other urogenital candidiasis B37.49 ; Essential (primary) hypertension I10 ; Obstructive sleep apnea (adult) (pediatric) G47.33 ; Anxiety disorder, unspecified F41.9 ; Mild persistent asthma, uncomplicated J45.30 ; Chronic embolism and thrombosis of unspecified deep veins of unspecified lower extremity I82.509 and Chronic kidney disease, stage 3 unspecified N18.[address] [place] [address] 09/17/2024 JARAMILLO GUL Unspecified fall, in itial encounter W19.XXXA and Pain in right leg M79.[address] [place] [address] 05/14/2024 JARAMILLO GUL Pain in right leg M7 9.[address] [place] [address] 11/15/2023 JARAMILLO GUL Radiculopathy, lumbosacral region M54.17 ; Diabetes mellitus due to underlying condition with diabetic neuropathy, unspecified E08.40 ; Essential (primary) hypertension I10 and Chronic kidney disease, stage 3 unspecified N18.[address] [address] 02/21/2024 JARAMILLO GUL Radiculopathy, lumbosacral region M54.17 ; Diabetes mellitus due to underlying condition with diabetic neuropathy, unspecified E08.40 ; Essential (primary) hypertension I10 and Chronic kidney disease, stage 3 unspecified N18.[address] [address] 04/18/2024 Adolfo Vilchis Diabetes mellitus du e [...] of micturition R35.0 and Epidermal cyst L72.[address] [address] 05/23/2024 JARAMILLO GUL Diabetes mellitus du e to underlying condition [...] Treatment Notes Treatment Clinical Notes Section Notes 09/25/2024 Acute URI (ICD-10 - J06.9) 09/17/2024 Pain in right leg (ICD-10 - M79.604) Maribell is 63 years old lady with 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 She is on Eliquis. She was taken to [facility] ER where she had CT scan of the head and x-ray of the right leg which were negative. Plan is as follows Hematoma of right [place]. Discussed with the patient that it is superficial and she is low risk for DVTs. Keep the leg elevated and iced the leg. 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 She is on Eliquis. She was taken to [facility] ER where she had CT scan of the head and x-ray of the right leg which were negative. Plan is as follows Hematoma of right [place]. Discussed with the patient that it is superficial and she is low risk for DVTs. Keep the leg elevated and iced the leg. No other intervention is very 08/16/2024 Pure hypercholesterolemia , unspecified (ICD-10 - E78.00) 05/23/2024 Diabetes mellitus due to underlying condition [...] with diabetic neuropathy. She follows up with [facility] endocrinology and according to patient her last A1c was within normal range. 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 She follows up with kiln feeder and kidney function is stable. Foot care discussed with the patient. Hypertension/hyper lipidemia. Blood pressure well controlled and last lipid panel was within reasonable limits Obstructive sleep apnea. Continue on CPAP machine and no daytime sleepiness. Moderate persistent asthma. She stable when she follows up with bpm architect Anxiety/depression . Stable on current regimen. Considering her neuropathy she may be a good candidate for duloxetine which can be added to her regimen and she will check with her psychiatrist. Chronic kidney disease. She is stable and she follows up with kiln feeder to avoid NSAIDs. Right lower extremity swelling. It is nonpitting edema most likely lymphedema. She is on Eliquis and less likely to be a DVT but considering her history we will do ultrasound right lower extremity in the next few days. 02/01/2024 Other conjunctivitis (ICD-10 - H10.89) Maribell [...] was negative and it was sent to [facility] for further evaluation and it was reported [...] this note under HIPAA compliance and under [place] law mandated for scribe services. Patient aware [...] was negative and it was sent to [facility] for further evaluation and it was reported [...] this note under HIPAA compliance and under [place] law mandated for scribe services. Patient aware of service. Verbal consent and written consent taken from the patient. Patient understands and verbalizes understanding of the scribes services and all questions answered regarding scribes services. Patient agrees to use of scribes services. 05/14/2024 Pain in right leg (ICD-10 - [...] continue Eliquis 5 mg twice a day 07/31/2024 Diabetes mellitus due to underlying condition [...] and hemoglobin A1c and follows up with [facility] end[facility]. 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 She follows up with kiln feeder and kidney function is stable. Foot care discussed with the patient. Hypertension/hyper lipidemia. Blood pressure well controlled and last lipid panel was within reasonable limits Obstructive sleep apnea. Continue on CPAP machine and no daytime sleepiness. Moderate persistent asthma. She stable when she follows up with bpm architect Anxiety/depression . Stable on current regimen. Considering her neuropathy she may be a good candidate for duloxetine which can be added to her regimen and she will check with her psychiatrist. Chronic kidney disease. She is stable and she follows up with kiln feeder to avoid NSAIDs. Right lower extremity swelling. It is nonpitting edema most likely lymphedema. She is on Eliquis and less likely to be a DVT and ultrasound lower extremity was negative. Vaginal candidiasis. She is given fluconazole and advised to control blood sugars 02/21/2024 Diabetes mellitus due to underlying condition with diabetic neuropathy, unspecified (ICD-10 - E08.40) Maribell is a 63-year-old lady with DM2, hypertension, hyperlipidemia, asthma, insomnia and anxiety here for follow up. Plan is as follows: Type II diabetes mellitus. Hb A1c improve energy 6.1.She is on right medications. She has seen her hoisting engineer pile driving in the past 1 year. Foot care [...] because she is on temazepam. Referred to [facility] Dr. Iraheta. Chronic kidney [...] this note under HIPAA compliance and under [place] law mandated for scribe services. Patient aware [...] on right medications. She has seen her hoisting engineer pile driving in the past 1 year. Foot care [...] because she is on temazepam. Referred to [facility] Dr. Iraheta. Chronic kidney [...] this note under HIPAA compliance and under [place] law mandated for scribe services. Patient aware of service. Verbal consent and written consent taken from the patient. Patient understands and verbalizes understanding of the scribes services and all questions answered regarding scribes services. Patient agrees to use of scribes services. 02/02/2024 Other conjunctivitis (ICD-10 - H10.89) 02/29/2024 Acute URI (ICD-10 - J06.9) Maribell [...] available in the office during the visit 02/16/2024 Diabetes mellitus due to underlying condition with diabetic neuropathy, unspecified (ICD-10 - E08.40) 12/06/2023 Mild persistent asthma, uncomplicated (ICD-10 - [...] this note under HIPAA compliance and under [place] law mandated for scribe services. Patient aware [...] on right medications. She has seen her hoisting engineer pile driving in the past 1 year. Foot care [...] this note under HIPAA compliance and under [place] law mandated for scribe services. Patient aware [...] on right medications. She has seen her hoisting engineer pile driving in the past 1 year. Foot care [...] this note under HIPAA compliance and under [place] law mandated for scribe services. Patient aware of service. Verbal consent and written consent taken from the patient. Patient understands and verbalizes understanding of the scribes services and all questions answered regarding scribes services. Patient agrees to use of scribes services. 04/18/2024 Diabetes mellitus due to underlying condition [...] afternoon for breakthrough pains. She follows with [facility] Dr. Iraheta. Chronic kidney disease stage 3. -She does not appear to be in volume overload. Advised appropriate hydration. Avoid NSAIDs. She sees Dr. Lakhani. Asthma. -She uses her inhalers as needed. Follows with Dr. Shipley-[facility] Generalized anxiety disorder. -Mood is stable on Lorazepam 3 times a day. She has a psychiatrist and a therapist. GERD/gastroparesis /dysphagia - Currently she is on omperazole 20m and Reglan 10 MG twice a day. I have increased omperazole to 40mg and advised patient to follow-up with her GI at [place]. She has an appt in May. MUSA: [...] afternoon for breakthrough pains. She follows with [facility] Dr. Iraheta. Chronic kidney disease stage 3. -She does not appear to be in volume overload. Advised appropriate hydration. Avoid NSAIDs. She sees Dr. Lakhani. Asthma. -She uses her inhalers as needed. Follows with Dr. Shipley-[facility] Generalized anxiety disorder. -Mood is stable on Lorazepam 3 times a day. She has a psychiatrist and a therapist. GERD/gastroparesis /dysphagia - Currently she is on omperazole 20m and Reglan 10 MG twice a day. I have increased omperazole to 40mg and advised patient to follow-up with her GI at [place]. She has an appt in May. MUSA: [...] on right medications. She has seen her hoisting engineer pile driving in the past 1 year. Foot care [...] this note under HIPAA compliance and under [place] law mandated for scribe services. Patient aware [...] with diabetic neuropathy. She follows up with [facility] and according to patient her last A1c was within normal range. 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 She follows up with kiln feeder and kidney function is stable. Foot care discussed with the patient. Hypertension/hyper lipidemia. Blood pressure well controlled and last lipid panel was within reasonable limits Obstructive sleep apnea. Continue on CPAP machine and no daytime sleepiness. Moderate persistent asthma. She stable when she follows up with bpm architect Anxiety/depression . Stable on current regimen. Considering her neuropathy she may be a good candidate for duloxetine which can be added to her regimen and she will check with her psychiatrist. Chronic kidney disease. She is stable and she follows up with kiln feeder to avoid NSAIDs. Right lower extremity swelling. It is nonpitting edema most likely lymphedema. She is on Eliquis and less likely to be a DVT but considering her history we will do ultrasound right lower extremity in the next few days. 02/21/2024 Essential (primary) hypertension (ICD-10 - I10) Maribell is a 63-year-old lady with DM2, hypertension, hyperlipidemia, asthma, insomnia and anxiety here for follow up. Plan is as follows: Type II diabetes mellitus. Hb A1c improve energy 6.1.She is on right medications. She has seen her hoisting engineer pile driving in the past 1 year. Foot care [...] because she is on temazepam. Referred to [facility] Dr. Iraheta. Chronic kidney [...] this note under HIPAA compliance and under [place] law mandated for scribe services. Patient aware [...] was negative and it was sent to [facility] for further evaluation and it was reported [...] this note under HIPAA compliance and under [place] law mandated for scribe services. Patient aware of service. Verbal consent and written consent taken from the patient. Patient understands and verbalizes understanding of the scribes services and all questions answered regarding scribes services. Patient agrees to use of scribes services. 07/31/2024 Essential (primary) hypertension (ICD-10 - I10) [...] and hemoglobin A1c and follows up with [facility]. 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 She follows up with kiln feeder and kidney function is stable. Foot care discussed with the patient. Hypertension/hyper lipidemia. Blood pressure well controlled and last lipid panel was within reasonable limits Obstructive sleep apnea. Continue on CPAP machine and no daytime sleepiness. Moderate persistent asthma. She stable when she follows up with bpm architect Anxiety/depression . Stable on current regimen. Considering her neuropathy she may be a good candidate for duloxetine which can be added to her regimen and she will check with her psychiatrist. Chronic kidney disease. She is stable and she follows up with kiln feeder to avoid NSAIDs. Right lower extremity swelling. It is nonpitting edema most likely lymphedema. She is on Eliquis and less likely to be a DVT and ultrasound lower extremity was negative. Vaginal candidiasis. She is given fluconazole and advised to control blood sugars 07/31/2024 Other urogenital candidiasis (ICD-10 - B37.49) [...] and hemoglobin A1c and follows up with [facility]. 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 She follows up with kiln feeder and kidney function is stable. Foot care discussed with the patient. Hypertension/hyper lipidemia. Blood pressure well controlled and last lipid panel was within reasonable limits Obstructive sleep apnea. Continue on CPAP machine and no daytime sleepiness. Moderate persistent asthma. She stable when she follows up with bpm architect Anxiety/depression . Stable on current regimen. Considering her neuropathy she may be a good candidate for duloxetine which can be added to her regimen and she will check with her psychiatrist. Chronic kidney disease. She is stable and she follows up with kiln feeder to avoid NSAIDs. Right lower extremity swelling. It is nonpitting edema most likely lymphedema. She is on Eliquis and less likely to be a DVT and ultrasound lower extremity was negative. Vaginal candidiasis. She is given fluconazole and advised to control blood sugars 02/01/2024 Other hammer toe(s) (acquired), right foot [...] was negative and it was sent to [facility] for further evaluation and it was reported [...] this note under HIPAA compliance and under [place] law mandated for scribe services. Patient aware of service. Verbal consent and written consent taken from the patient. Patient understands and verbalizes understanding of the scribes services and all questions answered regarding scribes services. Patient agrees to use of scribes services. 07/31/2024 Obstructive sleep apnea (adult) (pediatric) (ICD-10 [...] and hemoglobin A1c and follows up with [facility]. 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 She follows up with kiln feeder and kidney function is stable. Foot care discussed with the patient. Hypertension/hyper lipidemia. Blood pressure well controlled and last lipid panel was within reasonable limits Obstructive sleep apnea. Continue on CPAP machine and no daytime sleepiness. Moderate persistent asthma. She stable when she follows up with bpm architect Anxiety/depression . Stable on current regimen. Considering her neuropathy she may be a good candidate for duloxetine which can be added to her regimen and she will check with her psychiatrist. Chronic kidney disease. She is stable and she follows up with kiln feeder to avoid NSAIDs. Right lower extremity swelling. It is nonpitting edema most likely lymphedema. She is on Eliquis and less likely to be a DVT and ultrasound lower extremity was negative. Vaginal candidiasis. She is given fluconazole and advised to control blood sugars 02/21/2024 Chronic kidney disease, stage 3 unspecified (ICD-10 - N18.30) Maribell is a 63-year-old lady with DM2, hypertension, hyperlipidemia, asthma, insomnia and anxiety here for follow up. Plan is as follows: Type II diabetes mellitus. Hb A1c improve energy 6.1.She is on right medications. She has seen her hoisting engineer pile driving in the past 1 year. Foot care [...] because she is on temazepam. Referred to [facility] Dr. Iraheta. Chronic kidney [...] this note under HIPAA compliance and under [place] law mandated for scribe services. Patient aware of service. Verbal consent and written consent taken from the patient. Patient understands and verbalizes understanding of the scribes services and all questions answered regarding scribes services. Patient agrees to use of scribes services. 05/23/2024 Obstructive sleep apnea (adult) (pediatric) (ICD-10 - G47.33) Maribell is 63 years old lady with DM type II, hypertension, hyperlipidemia, morbid persistent asthma, generalized anxiety disorder/depressio n, chronic kidney disease stage IIIa, trigeminal neuralgia, obstructive sleep apnea, chronic pain syndrome is here for follow-up. Plan is as follows Diabetes mellitus type 2 with diabetic neuropathy. She follows up with [facility] and according to patient her last A1c was within normal range. 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 She follows up with kiln feeder and kidney function is stable. Foot care discussed with the patient. Hypertension/hyper lipidemia. Blood pressure well controlled and last lipid panel was within reasonable limits Obstructive sleep apnea. Continue on CPAP machine and no daytime sleepiness. Moderate persistent asthma. She stable when she follows up with bpm architect Anxiety/depression . Stable on current regimen. Considering her neuropathy she may be a good candidate for duloxetine which can be added to her regimen and she will check with her psychiatrist. Chronic kidney disease. She is stable and she follows up with kiln feeder to avoid NSAIDs. Right lower extremity swelling. It is nonpitting edema most likely lymphedema. She is on Eliquis and less likely to be a DVT but considering her history we will do ultrasound right lower extremity in the next few days. 11/15/2023 Chronic kidney disease, stage 3 unspecified (ICD-10 - N18.30) Maribell is a 63-year-old lady with DM2, hypertension, hyperlipidemia, asthma, insomnia and anxiety here for follow up. Plan is as follows: Type II diabetes mellitus. A1c 6.6. Glucose 151. She is on right medications. She has seen her hoisting engineer pile driving in the past 1 year. Foot care [...] this note under HIPAA compliance and under [place] law mandated for scribe services. Patient aware [...] afternoon for breakthrough pains. She follows with [facility] Dr. Iraheta. Chronic kidney disease stage 3. -She does not appear to be in volume overload. Advised appropriate hydration. Avoid NSAIDs. She sees Dr. Lakhani. Asthma. -She uses her inhalers as needed. Follows with Dr. Shipley-[facility] Generalized anxiety disorder. -Mood is stable on Lorazepam 3 times a day. She has a psychiatrist and a therapist. GERD/gastroparesis /dysphagia - Currently she is on omperazole 20m and Reglan 10 MG twice a day. I have increased omperazole to 40mg and advised patient to follow-up with her GI at [place]. She has an appt in May. MUSA: [...] afternoon for breakthrough pains. She follows with [facility] Dr. Iraheta. Chronic kidney disease stage 3. -She does not appear to be in volume overload. Advised appropriate hydration. Avoid NSAIDs. She sees Dr. Lakhani. Asthma. -She uses her inhalers as needed. Follows with Dr. Shipley-[facility] Generalized anxiety disorder. -Mood is stable on Lorazepam 3 times a day. She has a psychiatrist and a therapist. GERD/gastroparesis /dysphagia - Currently she is on omperazole 20m and Reglan 10 MG twice a day. I have increased omperazole to 40mg and advised patient to follow-up with her GI at [place]. She has an appt in May. MUSA: [...] and hemoglobin A1c and follows up with [facility]. 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 She follows up with kiln feeder and kidney function is stable. Foot care discussed with the patient. Hypertension/hyper lipidemia. Blood pressure well controlled and last lipid panel was within reasonable limits Obstructive sleep apnea. Continue on CPAP machine and no daytime sleepiness. Moderate persistent asthma. She stable when she follows up with bpm architect Anxiety/depression . Stable on current regimen. Considering her neuropathy she may be a good candidate for duloxetine which can be added to her regimen and she will check with her psychiatrist. Chronic kidney disease. She is stable and she follows up with kiln feeder to avoid NSAIDs. Right lower extremity swelling. It is nonpitting edema most likely lymphedema. She is on Eliquis and less likely to be a DVT and ultrasound lower extremity was negative. Vaginal candidiasis. She is given fluconazole and advised to control blood sugars 05/23/2024 Anxiety disorder, unspecified (ICD-10 - F41.9) Maribell is 63 years old lady with DM type II, hypertension, hyperlipidemia, morbid persistent asthma, generalized anxiety disorder/depressio n, chronic kidney disease stage IIIa, trigeminal neuralgia, obstructive sleep apnea, chronic pain syndrome is here for follow-up. Plan is as follows Diabetes mellitus type 2 with diabetic neuropathy. She follows up with [facility] and according to patient her last A1c was within normal range. 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 She follows up with kiln feeder and kidney function is stable. Foot care discussed with the patient. Hypertension/hyper lipidemia. Blood pressure well controlled and last lipid panel was within reasonable limits Obstructive sleep apnea. Continue on CPAP machine and no daytime sleepiness. Moderate persistent asthma. She stable when she follows up with bpm architect Anxiety/depression . Stable on current regimen. Considering her neuropathy she may be a good candidate for duloxetine which can be added to her regimen and she will check with her psychiatrist. Chronic kidney disease. She is stable and she follows up with kiln feeder to avoid NSAIDs. Right lower extremity swelling. It is nonpitting edema most likely lymphedema. She is on Eliquis and less likely to be a DVT but considering her history we will do ultrasound right lower extremity in the next few days. 07/31/2024 Mild persistent asthma, uncomplicated (ICD-10 - [...] and hemoglobin A1c and follows up with [facility]. 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 She follows up with kiln feeder and kidney function is stable. Foot care discussed with the patient. Hypertension/hyper lipidemia. Blood pressure well controlled and last lipid panel was within reasonable limits Obstructive sleep apnea. Continue on CPAP machine and no daytime sleepiness. Moderate persistent asthma. She stable when she follows up with bpm architect Anxiety/depression . Stable on current regimen. Considering her neuropathy she may be a good candidate for duloxetine which can be added to her regimen and she will check with her psychiatrist. Chronic kidney disease. She is stable and she follows up with kiln feeder to avoid NSAIDs. Right lower extremity swelling. It is nonpitting edema most likely lymphedema. She is on Eliquis and less likely to be a DVT and ultrasound lower extremity was negative. Vaginal candidiasis. She is given fluconazole and advised to control blood sugars 05/23/2024 Mild persistent asthma, uncomplicated (ICD-10 - J45.30) Maribell is 63 years old lady with DM type II, hypertension, hyperlipidemia, morbid persistent asthma, generalized anxiety disorder/depressio n, chronic kidney disease stage IIIa, trigeminal neuralgia, obstructive sleep apnea, chronic pain syndrome is here for follow-up. Plan is as follows Diabetes mellitus type 2 with diabetic neuropathy. She follows up with [facility] and according to patient her last A1c was within normal range. 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 She follows up with kiln feeder and kidney function is stable. Foot care discussed with the patient. Hypertension/hyper lipidemia. Blood pressure well controlled and last lipid panel was within reasonable limits Obstructive sleep apnea. Continue on CPAP machine and no daytime sleepiness. Moderate persistent asthma. She stable when she follows up with bpm architect Anxiety/depression . Stable on current regimen. Considering her neuropathy she may be a good candidate for duloxetine which can be added to her regimen and she will check with her psychiatrist. Chronic kidney disease. She is stable and she follows up with kiln feeder to avoid NSAIDs. Right lower extremity swelling. It is nonpitting edema most likely lymphedema. She is on Eliquis and less likely to be a DVT but considering her history we will do ultrasound right lower extremity in the next few days. 04/18/2024 Chronic kidney disease, stage 3 unspecified [...] afternoon for breakthrough pains. She follows with [facility] Dr. Iraheta. Chronic kidney disease stage 3. -She does not appear to be in volume overload. Advised appropriate hydration. Avoid NSAIDs. She sees Dr. Lakhani. Asthma. -She uses her inhalers as needed. Follows with Dr. Shipley-[facility] Generalized anxiety disorder. -Mood is stable on Lorazepam 3 times a day. She has a psychiatrist and a therapist. GERD/gastroparesis /dysphagia - Currently she is on omperazole 20m and Reglan 10 MG twice a day. I have increased omperazole to 40mg and advised patient to follow-up with her GI at [place]. She has an appt in May. MUSA: [...] afternoon for breakthrough pains. She follows with [facility] Dr. Iraheta. Chronic kidney disease stage 3. -She does not appear to be in volume overload. Advised appropriate hydration. Avoid NSAIDs. She sees Dr. Lakhani. Asthma. -She uses her inhalers as needed. Follows with Dr. Shipley-[facility] Generalized anxiety disorder. -Mood is stable on Lorazepam 3 times a day. She has a psychiatrist and a therapist. GERD/gastroparesis /dysphagia - Currently she is on omperazole 20m and Reglan 10 MG twice a day. I have increased omperazole to 40mg and advised patient to follow-up with her GI at [place]. She has an appt in May. MUSA: [...] but was available upon request 05/23/2024 Chronic embolism and thrombosis of unspecified [...] with diabetic neuropathy. She follows up with [facility] and according to patient her last A1c was within normal range. 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 She follows up with kiln feeder and kidney function is stable. Foot care discussed with the patient. Hypertension/hyper lipidemia. Blood pressure well controlled and last lipid panel was within reasonable limits Obstructive sleep apnea. Continue on CPAP machine and no daytime sleepiness. Moderate persistent asthma. She stable when she follows up with bpm architect Anxiety/depression . Stable on current regimen. Considering her neuropathy she may be a good candidate for duloxetine which can be added to her regimen and she will check with her psychiatrist. Chronic kidney disease. She is stable and she follows up with kiln feeder to avoid NSAIDs. Right lower extremity swelling. It is nonpitting edema most likely lymphedema. She is on Eliquis and less likely to be a DVT but considering her history we will do ultrasound right lower extremity in the next few days. 07/31/2024 Chronic embolism and thrombosis of unspecified [...] and hemoglobin A1c and follows up with [facility] endocrinology. 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 She follows up with kiln feeder and kidney function is stable. Foot care discussed with the patient. Hypertension/hyper lipidemia. Blood pressure well controlled and last lipid panel was within reasonable limits Obstructive sleep apnea. Continue on CPAP machine and no daytime sleepiness. Moderate persistent asthma. She stable when she follows up with bpm architect Anxiety/depression . Stable on current regimen. Considering her neuropathy she may be a good candidate for duloxetine which can be added to her regimen and she will check with her psychiatrist. Chronic kidney disease. She is stable and she follows up with kiln feeder to avoid NSAIDs. Right lower extremity swelling. [...] and hemoglobin A1c and follows up with [facility] endocrinology. 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 She follows up with kiln feeder and kidney function is stable. Foot care discussed with the patient. Hypertension/hyper lipidemia. Blood pressure well controlled and last lipid panel was within reasonable limits Obstructive sleep apnea. Continue on CPAP machine and no daytime sleepiness. Moderate persistent asthma. She stable when she follows up with bpm architect Anxiety/depression . Stable on current regimen. Considering her neuropathy she may be a good candidate for duloxetine which can be added to her regimen and she will check with her psychiatrist. Chronic kidney disease. She is stable and she follows up with kiln feeder to avoid NSAIDs. Right lower extremity swelling. It is nonpitting edema most likely lymphedema. She is on Eliquis and less likely to be a DVT and ultrasound lower extremity was negative. Vaginal candidiasis. She is given fluconazole and advised to control blood sugars 05/23/2024 Chronic kidney disease, stage 3 unspecified (ICD-10 - N18.30) Maribell is 63 years old lady with DM type II, hypertension, hyperlipidemia, morbid persistent asthma, generalized anxiety disorder/depressio n, chronic kidney disease stage IIIa, trigeminal neuralgia, obstructive sleep apnea, chronic pain syndrome is here for follow-up. Plan is as follows Diabetes mellitus type 2 with diabetic neuropathy. She follows up with [facility] endocrinology and according to patient her last A1c was within normal range. 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 She follows up with kiln feeder and kidney function is stable. Foot care discussed with the patient. Hypertension/hyper lipidemia. Blood pressure well controlled and last lipid panel was within reasonable limits Obstructive sleep apnea. Continue on CPAP machine and no daytime sleepiness. Moderate persistent asthma. She stable when she follows up with bpm architect Anxiety/depression . Stable on current regimen. Considering her neuropathy she may be a good candidate for duloxetine which can be added to her regimen and she will check with her psychiatrist. Chronic kidney disease. She is stable and she follows up with kiln feeder to avoid NSAIDs. Right lower extremity swelling. It is nonpitting edema most likely lymphedema. She is on Eliquis and less likely to be a DVT but considering her history we will do ultrasound right lower extremity in the next few days. 04/18/2024 Dysphagia, unspecified (ICD-10 - R13.10) Maribell [...] afternoon for breakthrough pains. She follows with [facility] Dr. Iraheta. Chronic kidney [...] patient to follow-up with her GI at [place]. She has an appt in May. MUSA: [...] afternoon for breakthrough pains. She follows with [facility] Dr. Iraheta. Chronic kidney disease stage 3. -She does not appear to be in volume overload. Advised appropriate hydration. Avoid NSAIDs. She sees Dr. Lakhani. Asthma. -She uses her inhalers as needed. Follows with Dr. RiveraCuster Generalized anxiety disorder. -Mood is stable on Lorazepam 3 times a day. She has a psychiatrist and a therapist. GERD/gastroparesis /dysphagia - Currently she is on omperazole 20m and Reglan 10 MG twice a day. I have increased omperazole to 40mg and advised patient to follow-up with her GI at [place]. She has an appt in May. MUSA: [...] afternoon for breakthrough pains. She follows with [facility] Dr. Iraheta. Chronic kidney disease stage 3. -She does not appear to be in volume overload. Advised appropriate hydration. Avoid NSAIDs. She sees Dr. Lakhani. Asthma. -She uses her inhalers as needed. Follows with Dr. Shipley-[facility] Generalized anxiety disorder. -Mood is stable on Lorazepam 3 times a day. She has a psychiatrist and a therapist. GERD/gastroparesis /dysphagia - Currently she is on omperazole 20m and Reglan 10 MG twice a day. I have increased omperazole to 40mg and advised patient to follow-up with her GI at [place]. She has an appt in May. MUSA: [...] afternoon for breakthrough pains. She follows with [facility] Dr. Iraheta. Chronic kidney disease stage 3. -She does not appear to be in volume overload. Advised appropriate hydration. Avoid NSAIDs. She sees Dr. Lakhani. Asthma. -She uses her inhalers as needed. Follows with Dr. Shipley-[facility] Generalized anxiety disorder. -Mood is stable on Lorazepam 3 times a day. She has a psychiatrist and a therapist. GERD/gastroparesis /dysphagia - Currently she is on omperazole 20m and Reglan 10 MG twice a day. I have increased omperazole to 40mg and advised patient to follow-up with her GI at [place]. She has an appt in May. MUSA: [...] afternoon for breakthrough pains. She follows with [facility] Dr. Iraheta. Chronic kidney disease stage 3. -She does not appear to be in volume overload. Advised appropriate hydration. Avoid NSAIDs. She sees Dr. Lakhani. Asthma. -She uses her inhalers as needed. Follows with Dr. Shipley-[facility] Generalized anxiety disorder. -Mood is stable on Lorazepam 3 times a day. She has a psychiatrist and a therapist. GERD/gastroparesis /dysphagia - Currently she is on omperazole 20m and Reglan 10 MG twice a day. I have increased omperazole to 40mg and advised patient to follow-up with her GI at [place]. She has an appt in May. MUSA: [...] afternoon for breakthrough pains. She follows with [facility] Dr. Iraheta. Chronic kidney disease stage 3. -She does not appear to be in volume overload. Advised appropriate hydration. Avoid NSAIDs. She sees Dr. Lakhani. Asthma. -She uses her inhalers as needed. Follows with Dr. Shipley-[facility] Generalized anxiety disorder. -Mood is stable on Lorazepam 3 times a day. She has a psychiatrist and a therapist. GERD/gastroparesis /dysphagia - Currently she is on omperazole 20m and Reglan 10 MG twice a day. I have increased omperazole to 40mg and advised patient to follow-up with her GI at [place]. She has an appt in May. MUSA: [...] afternoon for breakthrough pains. She follows with [facility] Dr. Iraheta. Chronic kidney disease stage 3. -She does not appear to be in volume overload. Advised appropriate hydration. Avoid NSAIDs. She sees Dr. Lakhani. Asthma. -She uses her inhalers as needed. Follows with Dr. Shipley-[facility] Generalized anxiety disorder. -Mood is stable on Lorazepam 3 times a day. She has a psychiatrist and a therapist. GERD/gastroparesis /dysphagia - Currently she is on omperazole 20m and Reglan 10 MG twice a day. I have increased omperazole to 40mg and advised patient to follow-up with her GI at [place]. She has an appt in May. MUSA: [...] Duplex Venous Study RT 05/14/2024 Hemoglobin A1C 01/20/2018 Hemoglobin A1C 04/18/2018 UA W/REFLEX MICROSCOPIC & CULTURE 2022 UA W/REFLEX MICROSCOPIC & CULTURE 2022 Next Appt Details Provider Name:ELLA MICHAEL , 11/26/2024 10:00:00 AM, [address] [place] [address], [id number], Insurance Providers Payer Name Payer Address Payer Phone Subscriber Number Group Number Insured Name Patient Relationship to Insured Coverage Start Date Coverage End Date [facility] [address] [place] [address] [id number] Maribell Taylor Self - patient is the insured Medical (General) History Medical History History ICD Code hypertension, benign hyperlipidemia IDDM T 2, [facility] endo Urinary incontinence and she sees Dr. England at [place] Left shoulder pain and she sees Dr. Alida villa and she is also seen Dr. Diaz Asthma and she sees Pul at [facility] Generalized anxiety disorder and she is seen by a psychiatrist and she goes to [facility] Pain management and has seen Dr. Montiel at [facility] in past Peripheral arterial disease and status post amputation below knee joint currently on Coumadin and goes to Coumadin clinic Lumbar radiculopathy on oxycodone 30 mg 3 times a day DVT leg LE sleep apnea see Pul at [facility] Left leg amputation below knee joint Chronic kidney disease stage 3, Dr. Janis smalls Personal history of COVID-19 GI- [facility] Surgical History Surgery Date(Month/Year) rotator cuff tear repair September 2017 wrist surgery below the knee amputation 07 left side for Blood clots 2/2 to OCP and pt was smoking rt toes amputation 2004 right wrist synovial cyst resection, Dr. Henriquez 2021 right carpal tunnel decompression, Dr. Flores hadley 2021 Hospitalization History Reason Date(Month/Year)
--- OUTSIDE RECORDS SUMMARY | 2024-11-07 09:55 | XMS_ITS | Clinical Summary ---
Author Organization [address] [facility] Address [address] [place] [address] Phone Care Team Providers Care Eligibility Supervisor Name Role Phone Samuel Hilario MD Primary Care Provider [phone] Allergies Active Allergy Reactions Criticality Noted Date [...] that time. All questions answered. 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 See Tel. 02/02/16 Urinary incontinence 03/29/2014 Overview (03/27/2024): [place]line. Changed to [place] Panic attacks 03/29/2014 Overview (03/27/2024): Sees psych Morbid obesity ([facility] V24, [facility] V28) 2013 Overview (03/27/2024): BMI 43.0 on 02/07/14 per transfer records MUSA (obstructive sleep apnea) 03/18/2014 Lumbosacral spondylosis without myelopathy 03/18 Eczema 03/18/2014 History of leg amputation ([facility] V24, [facility] V28) 03/18/2014 Overview (03/27/2024): BKA 08/10/11 left Lumbago 04/16/2009 S/P BKA (below knee amputation) ([facility] V24, [facility] V28) 12/30/2008 Overview (03/27/2024): left Sleep apnea 09/01/2005 Overview (03/27/2024): uses CPAP IMO update 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 ([facility] V24, [facility] V28) 08/19/2005 Overview (03/27/2024): from birthcontrol.had amputation on 10/11.on coumadin since October previous pcp dr ANA ignacio u/s negative in [place] 08/16/05 plastic sugeon for wound care s/p amputation.sees dr loyd for infection suresh gray is her plastic surgeon just finished reconstruciton Heartburn 08/19/2005 Phantom limb syndrome ([facility] V24, [facility] V28) 08/19/2005 Overview (03/27/2024): IMO update Asthma 08/19/2005 Depressive disorder 08/19/2005 Overview (03/27/2024): [facility] give wellbutrin,remerenon,seroquel Encounters Date Type Department Care Team Description 09/19/2024 2:00 PM EDT Office Visit Orthopedic Surgery - [address] [phone] Nolberto Cruz, DPM Acquired hammer toe of right foot (Primary Dx); Dermatophytosis of nail; Type II diabetes mellitus with peripheral circulatory disorder ([facility] V24, [facility] V28); Diabetic mononeuropathy simplex ([facility] V24, [facility] V28) 08/20/2024 9:05 AM EDT - 08/20/2024 11:59 PM EDT [facility] [address] [phone] Encounter for well woman exam with routine gynecological exam; Screening breast examination Discharge Disposition: Home or Self Care from Last 3 Months Immunizations Name Administration Dates Next Due Influenza Quadravalent, MDCK , 0.5ml, with preservative (Flucelvax) 6mo and older 02/02/2017 Moderna SARS-CoV-2 COVID-19, mRNA, LNP-S, preservative free 09/19/2020,08/21/2020 Pneumococcal polysaccharide 23 valent (Pneumovax 23) 2yo and older 04/29/2014 Tdap Tetanus diptheria acell ular pertussis (Boostrix; Adacel) 7yo and older 04/17/2015 Surgical History Surgery Date Site/Laterality Comments ENDOMETRIAL ABLATION 2006 PROCEDURE: NC ENDOMETRIAL ABLTJ THERMAL W/O HYSTEROSCOPIC GUID; COMMENT: Whit OTHER SURGICAL HISTORY 2011 Left PROCEDURE: HISTORICAL BELOW KNEE AMP; COMMENT: vascular problems COLONOSCOPY 08/20/2008 PROCEDURE: HISTORICAL COLONOSCOPY; COMMENT: normal TUBAL LIGATION PROCEDURE: HISTORICAL TUBAL LIGATION CARPAL TUNNEL RELEASE 2021 PROCEDURE: [place] NEUROPLASTY &/TRANSPOS MEDIAN NRV CARPAL TUNNE Medical History Medical History Date Comments 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 V24, CMS/HCC V28) DX:Arterial embolism and thr ombosis of lower extremity (HCC) Left hip pain DX:Left hip pain Amenorrhea DX:Amenorrhea Chronic abdominal pain DX:Chroni c abdominal pain Asthma DX:Asthma Obesity DX:Obesity Amputation of leg (CMS/HCC V 24, CMS/HCC V28) DX:Amputation of leg ([facility]) Incontinence DX:Incontinence Otitis media DX:Otitis media Pelvic pain DX:Pelvic pain Left shoulder pain DX:Left shoul krystle pain Sleep apnea DX:Sleep apnea; COMMENT: CPAP Historical Medical DX 2004 DX:HTN; CO MMENT: Metropolol and Buspar Rotator cuff tear 05/18/2014 DX:Rotator cuf f tear; COMMENT: Chronic anterior/superior tear, managed medically Carpal tunnel syndrome 05/18/2014 DX:Carpal tunnel syndrome; COMMENT: left History of leg amputation (C AK/HCC V24, CMS/HCC V28) 03/18/2014 DX:History of leg amputation ([facility]); COMMENT: BKA 08/10/11 (leg not specified) History of pulmonary embolism 03/18/2014 DX :History of pulmonary embolism; COMMENT: 2011 MUSA (obstructive sleep apnea) 03/18/2014 DX :MUSA (obstructive sleep apnea) Impaired fasting glucose 03/18/2014 DX:Impa ired fasting glucose Lumbosacral spondylosis with out myelopathy 03/18/2014 DX:Lumbosacral spondylosis w ithout myelopathy Eczema 03/18/2014 DX:Eczema Morbid obesity (CMS/HCC V24, CMS/HCC V28) 03/18/2014 DX:Morbid obesity ([facility]); COM MENT: BMI 43.0 on 02/07/14 Hypertension DX:Hypertension Type 2 diabetes mellitus wit hout complications ([facility] V24, [facility] V28) DX:Type 2 diabetes mellitus without complications (HCC) Diabetic gastroparesis ([facility] V24, [facility] V28) 08/25/2022 DX:Diabetic gastroparesis (H CC) Family [...] - - Weight 100 kg (221 lb) 09/19/2024 1:28 PM EDT Height 157.5 cm (5' 2.01 ) 09/19/2024 1:28 PM ED T Body Mass Index 40.41 09/19/2024 1:28 PM EDT Plan of Treatment Upcoming Encounters Date Type Department Care Team (Late st Contact Info) Description 12/20/2024 1:45 PM EDT Office Visit Orthopedic Surgery - [place] [address] [phone] Nolberto Cruz, DPM [address] [facility] [address] [place] [address] Health Maintenance Due Date Last Done Comments [...] 02/25/2017 Hypertension/CHF/CAD Annual BMP Blood Test 04/24/2022 Influenza Vaccine (#1) 2025 , 04/15/2022, 05/10/2021, Additional history exists DTaP,Tdap,and Td Vaccines (2 - Td or Tdap) 04/17/2025 04/17/2015 Breast Cancer Screening 08/20/2026 08/21/19, 10/21/2020, 08/22/2018, Additional history exists Cervical Cancer Screening: HPV 08/07/2029 08/07/2024, 10/02/2020 Hepatitis C Screening Completed 01/02/2016 RSV Immunization Adult Patients Completed 02/28/2023 Zoster Vaccines Completed 05/12/2023, 02/28/2023 COVID-19 Vaccine Completed 03/08/2024, 06/2021, 05/12/2021, Additional history exists HIB Vaccines Aged Out [...] with routine gynecological exam Screening breast examination HPV WITH REFLEX GENOTYPE Routine 08/07/2024 2:32 PM EDT Encounter for well woman exam with routine gynecological exam Screening for malignant neoplasm of cervix HM URINE ALBUMIN CREATININE RATIO Routine 02/25/2017 HEMOGLOBIN A1C Routine 02/25/2017 LIPID PANEL Routine 02/25/2017 HM HEPATITIS C SCREENING Routine 01/02/2016 HM DEPRESSION SCREENING Routine 08/19/2005 from Last 3 Months or Most Recently Relevant to Health Maintenance Results * MG Mammo Digital Screening w Louie bilat (08/20/2024 10:13 AM EDT) Anatomical Region Laterality Modality Breast Bilateral Mammography 08/20/2024 4:32 PM EDT Impressions 08/20/2024 4:39 PM EDT No mammographic evidence of malignancy. No suspicious interval change. A negative mammogram in the presence of a clinically suspicious palpable abnormality does not preclude the possibility of malignancy or alter the indications for biopsy. ASSESSMENT: BI-RADS 1: NEGATIVE RECOMMENDATION(S): 1: Routine screening mammogram BILATERAL in 1 year. [facility] [address], [address] -------- FINAL REPORT -------- Dictated By: Sd Restrepo Dictated Date: 08/20/2024 16:32 ET Assigned Physician: Sd Restrepo Reviewed and Electronically Signed By: Sd Restrepo Signed Date: 08/20/2024 16:39 ET Workstation ID: [id number] Transcribed By: Self Edit Transcribed Date: 08/20/2024 16:32 ET Narrative 08/20/2024 4:39 PM EDT EXAM: SCREENING MAMMOGRAPHY, BILATERAL HISTORY: SCREENING. Paternal aunt diagnosed with breast cancer age 39 COMPARISON: 10/21/20 TECHNIQUE: Synthesized CC and MLO projections of each breast. Tomosynthesis of each breast in the CC and MLO projections. ADDITIONAL IMAGING: None Computer-aided detection was employed with the M-SIX AI 3-D. TISSUE DENSITY: The breasts are almost entirely fatty. (BI-RADS Category A) FINDINGS: RIGHT BREAST: No suspicious mass. No suspicious calcification. No distortion. No additional suspicious right breast findings LEFT BREAST: No suspicious mass. No suspicious calcification. No distortion. No additional suspicious left breast findings Procedure Note Sd Restrepo MD - 08/20/2024 EXAM: SCREENING MAMMOGRAPHY, BILATERAL HISTORY: SCREENING. Paternal aunt diagnosed with breast cancer age 39 COMPARISON: 10/21/20 TECHNIQUE: Synthesized CC and MLO projections of each breast.Tomosynthesis of each breast in the CC and MLO projections. ADDITIONAL IMAGING: None Computer-aided detection was employed with the M-SIX AI 3-D. TISSUE DENSITY: The breasts are [...] year. [facility]amm[facility]: [facility] [address] [place], [address] -------- FINAL REPORT -------- Dictated By: Sd Restrepo Dictated Date: 08/20/2024 16:32 ET Assigned Physician: Sd Restrepo Reviewed and Electronically Signed By: Sd Restrepo Signed Date: 08/20/2024 16:39 ET Workstation ID: [id number] Transcribed By: Self Edit Transcribed Date: 08/20/2024 16:32 ET Betty Matt CNM IMG BI PROCEDURES Final Resul t * HPV with reflex genotype (08/07/2024 2:32 PM EDT) Pathologist [facility] HPV Negative Negative LAB MICROBIOLOGY METHOD 08/08/2024 1:09 PM EDT [facility] Brushing/Spatula Cervix uteri structure / Unknown 08/07/2024 2:32 PM EDT 08/08/2024 6:17 AM EDT Betty Matt CNM LAB MOLECULAR DIAGNOSTICS ORD ERABLES Final Result [facility] [address] [place] [address], [place] [phone] * Urine Albumin Creatinine Ratio (02/25/2017) Pathologist [facility] Urine Albumin Creatinine Ratio abstracted Historical Provider HEALTH MAINTENANCE Final Result * (ABNORMAL) Hemoglobin A1c (02/25/2017) Pathologist [facility] Hemoglobin A1C 7.4(A) 4.0 - 6.0 % Blood Venous blood specimen / Unknown Result [facility] Provider LAB BLOOD ORDERABLES Jessy l Result * (ABNORMAL) Lipid panel (02/25/2017) [facility] LDL/HDL Ratio 4 0 - 4 Triglycerides 280(A) 0 - 150 mg/dL Cholesterol 110 0 - 200 mg/dL HDL 29(A) >=40 mg/dL LDL Cholesterol 25 0 - 100 mg/dL Blood Venous blood specimen / Unknown Result [facility] Provider LAB BLOOD ORDERABLES Ejssy l Result * Hepatitis C Screening (01/02/2016) [facility] Hepatitis C Screening abstracted Result [facility] Provider HEALTH MAINTENANCE Final Result * Depression Screening (08/19/2005) [facility] Depression Screening abstracted Result [facility] Provider HEALTH MAINTENANCE Final Result from Last 3 Months or Most Recently Relevant to Health Maintenance Insurance [facility] [employer] Care Teams Eligibility Supervisor Relationship Specialty Start Date End Date Samuel Hilario MD [address] [place] [id number] PCP - General Internal Medicine 03/19/20
--- OUTSIDE RECORDS SUMMARY | 2024-11-07 09:55 | XMS_ITS | Data Portability ---
Author Organization [place] - [facility], Allergy Address [address] [address] Care Team Providers Care Curtain Inspector Name Role Phone ELLA MICHAEL Primary Care [...] Organization Details Last Modified Time Details Appointments Establ[facility] 15 2024 02:15P Moncho NELSON MD Not available Not available Not available Lab None recorded . Referral None recorded . Procedures None recorded . Surgeries None recorded . Imaging MRI, brain, w/wo contrast - prefers [facility] eld 2023 024 david [facility] ([facility]), [address], [place], [address], 01/03/2024 14:20:34 Medication Orders clotrima zole-bet amethaso ne 1 %-0.05 % topical cream 2023 024 [facility] [place], [place] - [id number], [address] [facility], [place], [address], 02/29/2024 15:08:30 Patient TargetsNo targets recorded. Patient InstructionsNo instructions recorded. Reason for Referral None Reported. Results Created Date Observation Date Name Description Value Unit Range Abnormal Flag Note LastModifiedBy Organization Detail LastModifiedTime 12/13/19 24 12/12/2023 MRI, brain + brain stem, w/wo contr ast [facility] Access ion Number : [id number] Patien t Name: Patel, Maribell Meadowsa l Record Number : [id number] Date of : 1960 Date of Exam: 2023 Referr ing Physic kellen: Duran Estes [facility] [address] [place] [address] Exam: MR Brain (C-/C+ ) CPT 15785 Room Descri ption: [facility] 3.0T MR Brain (C-/C+ ) CPT 77969 INDICA TION / CLINIC [facility] ON: [...] onical ly Signed By: Abdulaziz Parmar MD [facility] ([facility]) [address], [place], [place], [address], 12/31/2023 04:57:08 12/28/19 24 07/18/2023 imagi ng/di [...] contr ast No observ ation record ed. [facility] ([facility]) [address] [address], [place], [address], 06/14/2024 10:19:22 06/20/19 25 05/30/2024 MRI, cervi elina spine , w/o contr ast No observ ation record ed. [email or web address] Not Available 2024 16:10:50 09/18/19 25 09/13/2024 audio gram No observ ation record ed. [email or web address] Not Available 2024 11:25:21 Result Notes Documentation Provider Name and Address Organization Details Recorded Time Mri, Brain + Brain Stem, W/wo Contrast : [facility] Accession Number: [id number] Patient Name: Maribell Sweeney Date of : 1960 Date of Exam: 12-12-2023 Referring Physician: Duran [facility] of [address] [address] Exam: MR Brain (C-/C+) CPT 58786 Room Description: [facility] 3.0T MR Brain (C-/C+) CPT 47470 INDICATION / CLINICAL QUESTION: Trigeminal neuralgia TECHNIQUE: Multiplanar, multisequence MRI of the brain was performed with and without intravenous contrast. 20 mL Dotarem intravenous contrast was administered. COMPARISON: CT head 05/30/2023. FINDINGS: BRAIN and EXTRA-AXIAL SPACES: High-resolution imaging of the basal cisterns was performed. On the right, there is a prominent draining vein abutting and mildly indenting the lateral aspect of the cisternal right trigeminal nerve. On the left, there is a tiny branch vein coursing inferior to the cisternal trigeminal nerve, with no definite compression or indentation of the nerve. There is no mass effect, midline shift, or effacement of the basal cisterns. On diffusion weighted imaging, there are no regions of restricted diffusion to indicate an acute or subacute infarct. There is no evidence of intracranial hemorrhage on susceptibility sensitive sequence. Mild to moderate patchy foci of T2 prolongation are seen in the subcortical, deep, and periventricular white matter. The midline structures are unremarkable. Ventricles, cisterns, and sulci are mildly prominent, consistent with volume loss, without hydrocephalus. No abnormal extra-axial fluid collections are seen. Meningeal surfaces are normal. No abnormal intracranial enhancement is seen. Major intracranial flow voids are present. EXTRACRANIAL SOFT TISSUES: Orbits are unremarkable. There is mild scattered mucosal thickening in the paranasal sinuses, with trace layering fluid in the left maxillary sinus. Trace bilateral mastoid effusions are present. Nasopharyngeal contour is symmetric. BONES: Marrow signal is preserved. IMPRESSION: 1. No mass, infarct, or other acute intracranial abnormality. 2. High resolution imaging of the basal cisterns demonstrates mild indentation of the right trigeminal nerve by a prominent draining vein; a smaller draining vein abuts the inferior left trigeminal nerve without indentation or compression. Correlate with lateral to the patient's symptoms. 3. Mild scattered mucosal thickening in the paranasal sinuses with small amount of layering fluid in the left maxillary sinus. This may reflect acute sinusitis in the appropriate clinical setting. Correlate with patient's symptoms. 4. Mild to moderate T2/FLAIR hyperintense foci in the white matter, nonspecific but most commonly reflecting chronic small vessel disease. Electronically Signed By: Kaleigh NELSON MD [address] [place] [address], [phone], [facility] 12/31/2023 04:57:08 Problems Name Problem SNOMED Code Status Onset Date Resolution Date Notes Provider Name and Address Organization Details Recorded Time Otalgia of left ear 9721443146 Active 2020 Otalgia, left ear; Note: Date Diagnosed : 04/08/2021 3:18 PM (H92.02) Not Available [facility] 4 02:15:47 Diffuse otitis externa 10710874 Active 2020 Diffuse otitis externa, left ear; Note: Date Diagnosed : 07/17/2020 5:26 PM (H60.312) Note: Date Diagnosed : 07/17/2020 5:26 PM (H60.312) Not Available [facility] 4 00:49:08 Pain of left temporoma ndibular joint 55216624581 604912 Active 2020 Arthralgi a of left temporoma ndibular joint; Note: Date Diagnosed : 04/08/2021 3:18 PM (M26.622) Not Available [facility] 4 02:15:35 Tinnitus of left ear 02083174167 06 Active 2020 Tinnitus, left ear; Note: Date Diagnosed : 04/08/2021 3:18 PM (H93.12) Not Available [facility] 4 02:13:36 Disorder of nasal sinus 8411406 Active 2019 Unspecifi ed disorder of nose and nasal sinuses; Note: Date Diagnosed : 12/11/2019 7:07 PM (J34.9) Not Available [facility] 4 02:14:50 Disorder of the nose 38820768 Active 2019 Unspecifi ed disorder of nose and nasal sinuses; Note: Date Diagnosed : 12/11/2019 7:07 PM (J34.9) Not Available [facility] 4 02:14:50 Dysphagia 98712930 Active 2017 Dysphagia , unspecifi ed; Note: Date Diagnosed : 10/26/2017 3:35 PM (R13.10) Not Available [facility] 4 02:15:17 Acute maxillary sinusitis 49242082 Active 2019 Acute maxillary sinusitis , unspecifi ed; Note: Date Diagnosed : 12/11/2019 7:07 PM (J01.00) Not Available [facility] 4 02:13:26 Itching of skin 167650640 Active 2019 Pruritus, unspecifi ed; Note: Date Diagnosed : 12/17/2019 9:41 AM (L29.9) Not Available [facility] 4 02:15:04 Gastroeso phageal reflux disease without esophagit is 897344960 Active 2017 Gastro-es ophageal reflux disease without esophagit is; Note: Date Diagnosed : 10/26/2017 3:36 PM (K21.9) Not Available [facility] 4 02:13:57 Sensorine ural hearing loss 35724869 Active 2020 Sensorine ural hearing loss, unilatera l, left ear, with unrestric trisha hearing on the contralat eral side; Note: Date Diagnosed : 08/04/2020 11:03 AM (H90.42) Not Available [facility] 4 02:14:29 Trigemina l neuralgia 03011136 Active 2023 DURAN NELSON MD [address] [place] [address], [place], [address] , [facility] - [facility] 4 18:40:58 Localized masticato ry muscle soreness 058668898 Active 2023 Myalgia of masticati on muscle; Note: Date Diagnosed : 07/26/2023 2:53 PM (M79.11) Not Available [facility] 4 02:15:11 Type 2 diabetes mellitus without complicat ion 174773265 Active 2023 Type 2 diabetes mellitus without complicat ions; Note: Date Diagnosed : 06/13/2023 1:31 PM (E11.9) Not Available [facility] 4 02:15:17 Abnormal auditory perceptio n 36420127 Active 2024 LEXIS MONET, AuD [address] [facility],[address] [address], [place], [address] , [facility] 15:01:40 Problem Notes None recorded. Procedures Surgical History Date Name Laterality Status Provider Name and Address Organization Details Recorded Time 09/13/2024 Air & Speech Audio with Tymps - 84523, 24826 & 50851 completed LEXIS MONET, AuD [address] [facility] [address], [place], [address], [facility] 09/13/2024 15:01:28 Imaging Results None recorded. Procedure Notes None recorded. Medical Equipment None Reported. Allergies Allergen ID Allergen Name Allergen Category Reaction Reaction Severity Criticality Documentation Date Start Date Code Code System Note Provider Name and Address Organization Details Recorded Time 54977 aspirin medicatio n other Not available Not available 09/20/2023 1191 RxNorm React ion: unkno wn, unspe cifie d;; Not Available [facility] 4 00:49:02 25476 acetamino phen / oxycodone medicatio n other Not available Not available 09/20/2023 81490 3 RxNorm React ion: unkno wn, unspe cifie d;; Not Available [facility] 4 00:49:48 79456 naproxen medicatio n other Not available Not available 09/20/2023 7258 RxNorm React ion: unkno wn, unspe cifie d;; Not Available [facility] 4 00:49:48 Medications Name Sig Start Date [...] a day 06/14 completed Medicati on ID: 286445 D uration Value: 10 Brand Name: ciproflo [...] mg tablet 2017 active Medicati on ID: 633721 D uration Value: 30 Brand Name: cyprohep [...] topical solution 01/11 completed Medicati on ID: 604245 D uration Value: 14 Prescri bed By Name: AZUCENA Andrade nd Name: clotrima zole Sen d Method: E-Prescr ibed Sub s [...] small amount 2020 active Medicati on ID: 398444 D uration Value: 7 Prescri bed By Name: AZUCENA Andrade nd Name: lyndseypirocfrankie n Send Method: E-Prescr ibed Sub s [...] drops,randy pension 01/11 completed Medicati on ID: 403090 P rescribe d By Name: AZUCENA Andrade [...] 5 drop 2020 active Medicati on ID: 139419 D uration Value: 30 Prescri bed By [...] by mouth 10/19 completed Medicati on ID: 725688 D uration Value: 30 Prescri bed By Name: Paula Leon VINAY Kruger nd Name: omeprazo le Send Method: E-Prescr ibed Sub s Allowed: subs [place] Speci al Instruct ion: Take 1 tablet by mouth every day before a meal Med icationG enericNa me: omeprazo le Medic ation ID: [id number] D uration Value: 30 Prescri bed By Name: Paula Leon VINAY Kruger nd Name: omeprazo le Send Method: E-Prescr [...] both nostrils 2019 active Medicati on ID: 468001 D uration Value: 30 Prescri bed By [...] Available No t Available FreeStyle Antonio 2 Mcbee USE DIRECTED active Not Available Not Available No t Available Trulicity 4.5 mg/0.5 mL subcutane ous pen injector INJECT THE CONTENT OF 1 pen SUBCUTAN EOUSLY EVERY WEEK. USE ON THE same DAY EVERY WEEK. rotate injectio n [facility] 10/19 completed Not Available Not Available Not [...] Updated DateTime 06/14/2024 157.48 cm 36.9 kg/m2 06177.66 g Nyla Rowland [place] - [facility] 06/14/2024 09:18:50 Date Recorded Body height Body mass index (BMI) Body weight Provider Name and Address Organization Details Last Updated DateTime 10/20/2023 157.48 cm 38.2 kg/m2 00738.81 g Nyla Rowland [place] - [facility] 10/20/2023 13:21:31 Date Recorded Body height Body mass index (BMI) Body weight Provider Name and Address Organization Details Last Updated DateTime 12/27/2023 157.48 cm 35.5 kg/m2 99275.92 g Nyla Janett [place] - [facility] 12/27/2023 13:07:29 Date Recorded Body height Body mass index (BMI) Body weight Provider Name and Address Organization Details Last Updated DateTime 01/12/2024 157.48 cm 35.5 kg/m2 04977.92 g Nyla Janett [facility] 01/12/2024 13:05:16 Social History None recorded. Functional Status None recorded. Mental Status None recorded. Family History Nothing Reported. Medical History No medical history recorded. Gynecological HistoryNo gynecological history recorded. Obstetrics History GPAL:G 0 P 0 0 0 0 Past Encounters Encounter ID Performer Location Encounter Start Date Encounter Closed Date Diagnosis/Indication Diagnosis SNOMED-CT Code Diagnosis ICD10 Code Diagnosis Note [id number] DURAN NELSON MD [facility] on [address] [place] [phone] 10/20/2023 13:04:44 10/20/2023 14:59:17 Otalgia of left ear 5191576666 H92.02 63 yo F presents for follow up of her left ear. She is here for scheduled cerumen removal, but she is concerned about persistent pain. She was seen in [place] at the end of January and had [...] of her neurology visit. Trigeminal neuralgia 316 61028 G50.0 [id number] DURAN NELSON MD [facility] on [address] [place] [id number] 12/27/2023 13:00:52 12/27/2023 13:42:13 Diffuse otitis externa 08015689 H60.312 Otalgia of left ear 1010 863912 H92.02 63 yo F presents for follow up of her left ear. She is here for scheduled cerumen removal, but she is concerned about persistent pain. She was seen in [place] at the end of January and had [...] Lotrisone into the canal. Follow-up 2 weeks. [id number] DURAN NELSON MD [facility] on [address] [place] [address], [place] [address] 01/12/2024 12:56:02 01/12/2024 14:21:07 Otalgia of left ear 0625180000 H92.02 63 yo F presents for follow up of her left ear. Lotrisone is gone. No infection. Middle ear aerated. she can continue the vinegar drops for maintenanc e as lotrisone sparingly to the EAC meatus. Follow up three months for reassessme nt and cleaning. [id number] DURAN NELSON MD [facility] on [address] [place] [address], [place] [address] 06/14/2024 09:03:19 06/14/2024 09:30:18 Otalgia of left ear 7984352944 H92.02 63 yo F presents for follow up of her left ear. No infection. Middle ear aerated. she can continue the vinegar drops for maintenanc e and lotrisone sparingly to the EAC meatus as needed. Follow up three months for reassessme nt. Will recheck hearing then. If ear canal is healthy appearing at that visit, we will stretch follow-up to 6 months. [id number] TYESHA CARRION PA-C [facility] on [address] [place] [address] 09/13/2024 14:30:16 09/13/2024 15:19:39 Abnormal auditory perception 37927591 H93.292 Audiologic al evaluation results: Right ear: Normal hearing with excellent word recognitio n. Left ear: Normal hearing with excellent word recognitio n. Tympanomet ry: Right Ear:Type A Left Ear:Type A Health Concerns Section Related Observation LastModified by Organization Detai ls LastModified Time None Recorded Concern Status LastModified by Organization Details LastModified Time None Recorded Advance Directives Directive None Recorded Payers Insurance Date Sequence Insurance Name Policy Number Policy Yost Covered Member ID Yost Member ID Guarantor Name 10/20/2023 1 [facility] - PREFERRED (MEDICARE SUPPLEMENT) [id number] Maribell H Colon [id number] Maribell H Colon 09/13/2024 1 [facility] [id number] Maribell H Colon [id number] Maribell H Colon Notes Date Note Type Note Provider Name and Address Organization Details Recorded Time 10/20/2023 text/html 63 yo F presents for follow up of her left ear. She is here for scheduled cerumen removal, but she is concerned about persistent pain. She was seen in [place] at the end of January and had [...] a CT scan of the neck at [place] which did not show any sign of [...] mouth to to tightness DURAN NELSON MD [address] [place] [address], [phone], [facility] - [facility] 10/30/2023 18:46:54 12/27/2023 text/html 63-year-old luis carlos bull presents today for follow-up and reassessment of her ear. PV:63 yo F presents for follow up of her left ear. She is here for scheduled cerumen removal, but she is concerned about persistent pain. She was seen in [place] at the end of January and had [...] a CT scan of the neck at [place] which did not show any sign of [...] to to tightness DURAN NELSON MD [address] [facility] [place],[address] [place] [address], [address], [facility] - [facility] 01/03/2024 08:17:01 01/12/2024 text/html 63 yo F presents for follow up after lotrisone injection on the left. She does feel improvement in left otalgia. \ She was seen in [place] at the end of January and had [...] on the left. DURAN NELSON MD [address] [facility],[address] [address], [place], [address], [facility] - [facility] 01/18/2024 06:10:12 06/14/2024 text/html Oxcarbazepine helping with [...] recent AIC 7.4. DURAN NELSON MD [address] [facility],[address] [place] [address], [address], [facility] 06/14/2024 09:30:26 09/13/2024 text/html 63 year old femchristina bull presents for 3 month follow up of her left ear. She reports continued itching. She has been using Vinegar drops. She still has sensation that there is something in the ear after a shower. DURAN NELSON MD [address] [facility],[address] [address], [place], [address], [facility] 09/17/2024 08:17:08 OBGyn Episode No OBEpisode recorded.
--- OUTSIDE RECORDS SUMMARY | 2024-11-07 09:55 | XMS_ITS | Clinical Summary ---
Author Organization [facility] Address [address] [place] [phone] Phone Care Team Providers Care [employer] Operations Specialist Name Role Phone Samuel Hilario MD Primary Care Provider [phone] Allergies Active Allergy Reactions Criticality Noted Date [...] DAY NEEDED 1 Active Comfort EZ Pen [place] 32G X 4 MM [facility] 2 Active Easy Comfort Lancets [facility] 2 Active gemfibrozil (LOPID) 600 MG tablet [...] incontinence 03/29/2014 Overview (09/06/2022): Darline. Changed to [place] Panic attack 03/29/2014 Overview (09/06/2022): Sees psych [...] Care Team (Late st Contact Info) Description 12/07/2024 Orders Only [facility] [address] [phone] Racheal Wood ARNP [address] [phone] Stage 3a chronic kidney disease (HCC); Hypertension 02/04/2025 11:15 AM EDT Office Visit [facility] [address] [phone] Racheal Wood ARNP [address] [phone] Health Maintenance Due Date Last Done Comments Breast Cancer Screening 1960 Colorectal Cancer Screening: Annual FOBT 09/25/2011 Colorectal Cancer Screening: Colonoscopy 09/25/2011 Colorectal Cancer Screening: Sigmoidoscopy 09/25/2011 Pneumococcal Vaccine: 50+ Years (2 of 2 - PCV) 04/29/2015 04/29/2014 Diabetes: Ophthalmology Exam 05/26/2021 09/25/2009 Diabetes: Pedal Pulse Checked 05/26/2021 Diabetes: Sensory Foot Exam 05/26/2021 Diabetes: Visual Foot Exam 05/26/2021 Diabetes: Hemoglobin A1C 09/14/2021 06/17/2021, 02/07 Influenza Vaccine (#1) 2025 , 05/10/2021, 04/20/2018, Additional history exists Pneumococcal Vaccine: Peds (0 to 5 Years) and At-Risk Patients (6 to 49 Years) Discontinued 04/29/2014 Hepatitis B Vaccine Aged Out No longe r eligible based on patient's age to complete this topic Procedures Procedure Name Priority Date/Time Associated Diagnosis Comments URINE CULTURE Routine 08/24/2024 11:49 AM EDT Dysuria Left flank pain URINALYSIS WITH MICROSCOPIC Routine 08/24/2024 11:49 AM EDT Dysuria Left flank pain RESULT Routine 08/24/2024 11:49 AM EDT MICROSCOPIC EXAMINATION - DO NOT USE Routine 08/24/2024 11:49 AM EDT RENAL FUNCTION PANEL Routine 08/24/2024 11:47 AM EDT Stage 3a chronic kidney disease (HCC) Hypertension Persistent proteinuria PTH, INTACT Routine 08/24/2024 11:47 AM EDT Stage 3a chronic kidney disease (HCC) Hypertension Persistent proteinuria PROTEIN / CREATININE RATIO, URINE Routine 08/24/2024 11:47 AM EDT Stage 3a chronic kidney disease (HCC) Hypertension Persistent proteinuria CBC Routine 08/24/2024 11:47 AM EDT Stage 3a chronic kidney disease (HCC) Hypertension Persistent proteinuria HEMOGLOBIN A1C Routine 06/17/2021 4:28 PM EST Type 2 diabetes mellitus with diabetic chronic kidney disease (HCC) from Last 3 Months or Most Recently Relevant to Health Maintenance Results * Result (08/24/2024 11:49 AM EDT) Result Comment [facility] Comment: Mixed urogenital kathleen 25,000-50,000 colony forming units per mL 08/24/2024 11:4 9 AM EDT 08/24/2024 Racheal GAMINGP LAB MICROBIOLOGY - GENERAL ORDERABLES Final Result [facility] [address], [address] [place] [address] * Microscopic Examination (08/24/2024 11:49 AM EDT) WBC, Urine 0-5 0 - 5 /hpf [facility] RBC, Urine None seen 0 - 2 /hpf [facility] Squamous Epithelial, Urine 0-10 0 - 10 /hpf [facility] Casts None seen None seen /lpf [facility] Bacteria, Urine None seen None seen/Few [facility] 08/24/2024 11:4 9 AM EDT 08/24/2024 Racheal GAMINGP LAB MICROBIOLOGY - GENERAL ORDERABLES Final Result [facility] [address] [place] [phone] * (ABNORMAL) Urinalysis with microscopic (08/24/2024 11:49 AM EDT) Specific [place], Urine 1.019 1.005 - 1.030 [facility] [phone] pH Urine 6.0 5.0 - 7.5 [facility] Color, Urine Yellow Yellow [facility] Appearance Urine Clear Clear [facility] [phone] WBC Esterase Urine 1+(A) Negative [facility] [phone] Protein, Ur Negative Negative/Tra ce [facility] Glucose, Ur Negative Negative [facility] Ketones, Urine Negative Negative [facility] Blood Urine Negative Negative [facility] Bilirubin Urine Negative Negative [facility] [phone] Urobilinogen Urine 0.2 0.2 - 1.0 mg/dL [facility] [phone] Nitrite, Urine Negative Negative [facility] Microscopic Examination See below: [facility] Comment:Microscopic was geri cated and was performed. Urine specimen (specimen) Urine specimen obtained by clean catch procedure / Unknown 08/24/2024 11:49 AM EDT 08/24/2024 [facility] ORDERAB[facility] Final Result [facility] [address] [place] [address] * Urine culture (08/24/2024 11:49 AM EDT) Culture Result, Urine Final [facility] Urine specimen (specimen) Urine specimen obtained by clean catch procedure / Unknown 08/24/2024 11:49 AM EDT 08/24/2024 Comment: [facility] Final Result Performing Organization Address City/[facility]/ZIP Co de Phone Number [facility] [address], [address] [place] [phone] * (ABNORMAL) Urine Protein / creatinine ratio (08/24/2024 11:47 AM EDT) Creatinine, Ur 74.7 Not Estab. mg/dL [facility] Protein, Ur 16.9 Not Estab. mg/dL [facility] Urine Protein/Creati nine Ratio 226(H) 0 - 200 mg/g creat [facility] Urine specimen (specimen) Urine specimen obtained by clean catch procedure / Unknown 08/24/2024 11:47 AM EDT 08/24/2024 Racheal Wood [facility] LAB URINE ORDERABLES Final Result Performing Organization Address [facility]/ZIP Co de Phone Number [facility] [address] [place] [address] * CBC (08/24/2024 11:47 AM EDT) WBC 8.2 3.4 - 10.8 x10E3/uL [facility] RBC 3.95 3.77 - 5.28 x10E6/uL [facility] Hemoglobin 12.0 11.1 - 15.9 g/dL [facility] Hematocrit 36.3 34.0 - 46.6 % [facility] MCV 92 79 - 97 fL [facility] MCH 30.4 26.6 - 33.0 pg [facility] MCHC 33.1 31.5 - 35.7 g/dL [facility] RDW 12.4 11.7 - 15.4 % [facility] Platelets 241 150 - 450 x10E3/uL [facility] Blood specimen (specimen) Venous blood / Unknown 08/24/2024 11:47 AM EDT 08/24/2024 [facility] LAB BLOOD ORDERABLES Final Result Performing Organization Address City/[facility]/ZIP Co de Phone Number [facility] [address] [place] [phone] * PTH, intact (08/24/2024 11:47 AM EDT) Pathologist [facility] PTH 30 15 - 65 pg/mL [facility] Blood specimen (specimen) Venous blood / Unknown 08/24/2024 11:47 AM EDT 08/24/2024 [facility] LAB BLOOD ORDERABLES Final Result Performing Organization Address City/[facility]/ZIP Co de Phone Number [facility] [address] [place] [phone] * (ABNORMAL) Renal function panel (08/24/2024 11:47 AM EDT) Glucose 140(H) 70 - 99 mg/dL [facility] BUN 22 8 - 27 mg/dL [facility] Creatinine 1.11(H) 0.57 - 1.00 mg/dL [facility] eGFR CKD-EPI CR 2020 57(L) >59 mL/min/1.7 3 [facility] BUN/Creatinine Ratio 20 12 - 28 [facility] Sodium 141 134 - 144 mmol/L [facility] Potassium 5.0 3.5 - 5.2 mmol/L [facility] Chloride 102 96 - 106 mmol/L [facility] Bicarbonate (CO2) 22 20 - 29 mmol/L [facility] Calcium 9.8 8.7 - 10.3 mg/dL [facility] Albumin 4.0 3.9 - 4.9 g/dL [facility] Phosphorus 3.9 3.0 - 4.3 mg/dL [facility] Blood specimen (specimen) Venous blood / Unknown 08/24/2024 11:47 AM EDT 08/24/2024 Racheal Wood [facility] LAB BLOOD ORDERABLES Final Result [facility] [address] [place] [address] * (ABNORMAL) Hemoglobin A1c (06/17/2021 4:28 PM EST) Hemoglobin A1C 9.2(H) (4.0-5.6) % [facility] Comment: MONITORING: In known diabetic patients, hemoglobin A1c targets should be discussed with health care provider. DIAGNOSTIC USE: The [place] [employer] (ADA) and the World [...] Supplement 1 Testing performed or reported by [facility], a Service of [facility], [address] [place] [id number] Bertin Bethea MD, Ammonia Nitrate Operator [facility]# [id number] Blood specimen (specimen) Venous blood / Unknown 06/17/2021 4:28 PM EST 06/17/2021 4:29 PM EST Feroz Lakhani MD LAB BLOOD ORDERABLES Final Re sult [facility] from Last 3 Months or Most Recently Relevant to Health Maintenance Insurance Care Teams Airways Operations Specialist Relationship Specialty Start Date End Date Samuel Hilario MD [address] [place] [phone] PCP - General Internal Medicine 05/26/21
[2024-11-07 11:08] VITALS: BP 140/62; PULSE 77; O2SAT 98; BMI 37.5
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
== END 2024-11-07 12:22 | disposition home or self-care (01) ==
LOC: HO.HSMS 09:35
PROVIDERS: PCP Hospitalist; Visit Provider Nurse Practitioner Family
DX: M26.622 Arthralgia of left temporomandibular joint (principal); M54.2 Cervicalgia; G44.009 Cluster headache syndrome, unspecified, not intractable
CPT/HCPCS: 99214

== ENCOUNTER → 2024-11-07 09:34 | Outpatient (BNVA) | payer OTHER, SELFPAY | PROVIDERS: PCP Hospitalist; Visit Provider Nurse Practitioner Family | DX: G44.009 Cluster headache syndrome, unspecified, not intractable (principal); G44.89 Other headache syndrome; M26.622 Arthralgia of left temporomandibular joint; M54.2 Cervicalgia | CPT/HCPCS: 99212 ==

== ENCOUNTER 2024-12-05 13:27 | Outpatient (AMB) | payer OTHER, SELFPAY ==
--- OUTSIDE RECORDS SUMMARY | 2024-12-05 14:02 | XMS_ITS | Patient Health Record ---
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, [place], Phone - [phone], Director - Mohsen Notes/Report: Cholesterol, Total 125 100-199 mg/dL Triglycerides 203 0-149 mg/dL HDL Cholesterol 39 >39 mg/dL VLDL Cholesterol Timothy 33 5-40 mg/dL LDL Chol Calc ([facility]) 53 0-99 mg/dL MG MAMMO DIGITAL SCREENING W TONG BILAT Reviewed date:08/22/2024 02:13:16 PM Interpretation: Performing Lab: Notes/Report: Note See Note [facility], a member of [employer] Patient Name: MARIBELL COLON Date of : 1960 Reason for Exam: Breast cancer screen, avg risk, asymptomatic (Age => 42y) Exam Date: 08/20/2024 [id number] EST Report Status: Final Ordering Provider: TONY [...] Mamm[facility] location[facility] [address], [address] -------- FINAL REPOR T -------- Dictated By: Sd Holbrook Dictated Date: 08/20/2024 16:32 ET Assigned Physician: Sd Restrepo Reviewed and Electronically Signed By: Sd Restrepo Signed Date: 025 16:39 ET Workstation ID: [id number] Transcribed By: Self Edit Transcribed Date: 08/20/2024 16:32 ET HPV WITH REFLEX GENOTYPE Reviewed date:08/08/2024 01:37:20 PM Interpretation: Performing Lab: Notes/Report: HPV Negative Negative PAP SMEAR Reviewed date:08/09/2024 01:14:25 PM Interpretation: [...] screening system. Technical cytopathology services provided by [facility], at [address] [place] [address] (CLIA # [id number]/Omi Connelly MD, Dye Range Feeder.) Console Pap Interpretation Reported General Categorization Negative Hemoglobin [id number] Reviewed date:08/04/2024 01:31:25 PM Interpretation: Performing Lab:[facility], [address] [place] [address], Phone - [phone], Director - Mohsen Notes/Report: Hemoglobin A1c 7.1 4.8-5.6 % . Prediabetes: 5.7 - 6.4 Diabetes: >6.4 Glycemic control for adults with diabetes: <7.0 Albumin/Creatinine Ratio,Uri ne-[id number] Reviewed date:08/04/2024 01:31:32 PM Interpretation: Performing Lab:[facility], [address] [place] [address], Phone - [phone], Director - Mohsen Notes/Report: Creatinine, Urine 88.2 Not Estab. mg/dL Albumin, Urine 19.2 Not Estab. ug/mL Alb/Creat Ratio 22 0-29 mg/g creat Normal: 0 - 29 Moderately increased: 30 - 300 Severely increased: >300 Lipid Panel-[id number] Reviewed date:08/16/2024 04:22:18 PM Interpretation: Performing Lab:[facility], [address] [place] [address], Phone - [phone], Director - Sonyay Notes/Report: Cholesterol, Total 132 100-199 mg/dL Triglycerides 228 0-149 mg/dL HDL Cholesterol 38 >39 mg/dL VLDL Cholesterol Timothy 37 5-40 mg/dL LDL Chol Calc (NI[facility]) 57 0-99 mg/dL Comp. Metabolic Panel (14)-3 Reviewed date:08/04/2024 01:36:37 PM Interpretation: Performing Lab:[facility], [address] [place] [address], Phone - [phone], Director - Mohsen Notes/Report: Glucose 101 70-99 mg/dL BUN 19 [...] 0-40 IU/L ALT (SGPT) 46 0-32 IU/L Hemoglobin [id number] Reviewed date:02/20/2024 08:28:37 AM Interpretation: Performing Lab:[facility], [address] [place] [address], Phone - [phone], Director - MDJodry Notes/Report: Hemoglobin A1c 6.1 4.8-5.6 % . Prediabetes: 5.7 - 6.4 Diabetes: >6.4 Glycemic control for adults with diabetes: <7.0 Comp. Metabolic Panel (14)-3 Reviewed date:09/03/2024 02:43:50 PM Interpretation: Performing Lab:[facility], [address] [facility], Phone - [phone], Director - MDJodry Notes/Report: Glucose 145 70-99 mg/dL BUN 21 [...] 0-40 IU/L ALT (SGPT) 38 0-32 IU/L Lipid Panel-[id number] Reviewed date:09/03/2024 02:43:34 PM Interpretation: Performing Lab:[facility] [place], [address] [facility], [place], Phone - [phone], Director - Mohsen Notes/Report: Cholesterol, Total 126 100-199 mg/dL Triglycerides 205 0-149 mg/dL HDL Cholesterol 38 >39 mg/dL VLDL Cholesterol Timothy 33 5-40 mg/dL LDL Chol Calc (NI[facility]) 55 0-99 mg/dL Albumin/Creatinine Ratio,Uri ne-[id number] Reviewed date:09/03/2024 02:43:41 PM Interpretation: Performing Lab:[facility] [place], [address] [facility], [place], Phone - [phone], Director - MDNigel Notes/Report: Creatinine, Urine 75.8 Not Estab. mg/dL Albumin, Urine 24.0 Not Estab. ug/mL Alb/Creat Ratio 32 0-29 mg/g creat Normal: 0 - 29 Moderately increased: 30 - 300 Severely increased: >300 Reason For Referral Reason Evaluation and manag ement - Dr Cruz Diagnosis 1 Other hammer toe(s) (acquired), right foot (M20.41) Referral Organization [facility] Referring Provider First Name ELLA Referring Provider Last Name [facility] Referring Provider Speciality Internal edicine Referred Provider Specialty Podiatry General Notes Referral sent to [facility] in [place] - Office will call patient for scheduling.Janene Latraya 02/02/2024 09:36:19 AM > Referral Priority Routine Reason Evaluation and manag emchristian - Dr Iraheta Diagnosis 1 Radiculopathy, lumbo sacral region (M54.17) Diagnosis 2 Pain in right should er (M25.511) Diagnosis 3 Pain in left wrist ( M25.532) Diagnosis 4 Pain in left hand (M 79.642) Diagnosis 5 Pain in right foot ( M79.671) Diagnosis 6 Low back pain (M54.5 ) Referral Organization [facility] Referring Provider First Name ELLA Referring Provider Last Name [facility] Referring Provider Speciality Internal M edicine Referred Provider Specialty Pain Medicin e General Notes Referral sent to [facility] in [place] - Office will call patient for scheduling., Naty Watters 02/21/2024 10:54:41 AM > Referral Priority Routine Medications Medication SIG (Take, Route, Frequency, Duration) Notes Start Date End Date Status Meclizine HCl 25 MG 1 tablet as needed Orally every 12 hrs; Duration: 10 days 05/31/2023 Active Admelog SoloStar 100 UNIT/ML 11 units Subcutaneous three times a day; Duration: 30 Not-Taking Knee Compression Sleeve/L/XL - as directed; Duration: 100 days 11/26/2024 Active FreeStyle Lite Test - USE TO TEST FINGER STICK BLOOD SUGAR 3 (THREE) TIMES A DAY; Duration: 30 Active Fluticasone Propionate 50 MCG/ACT SPRAY TWICE INTO EACH NOSTRIL ONCE A DAY; Duration: 30 Not-Taking hydroCHLOROthiazide 25 mg TAKE 1 TABLET BY MOUTH EVERY MORNING; Duration: 30 Active Azithromycin 250 MG 2 tablet day one 1 tab daily for 4 days Orally daily; Duration: 5 days 03/19/2022 Not-Taking Lantus SoloStar 100 UNIT/ML INJECT 90 UNITS UNDER THE SKIN ONCE A DAY DIRECTED; Duration: 30 Active metroNIDAZOLE 0.75 % _insert 1 APPLICATORFUL VAGINALLY ONCE A DAY AT BEDTIME FOR 10 DAYS; Duration: 10 Not-Taking Lidocaine HCl Urethral/Mucosal 2 % APPLY SPARINGLY TO THE AFFECTED AREA ON RIGHT TO THE ARM AND CHEST 2 TO 3 TIMES A DAY IF ITCHY; Duration: 30 Active Trulicity 1.5 MG/0.5ML inject the conten t of 1 pen under the skin each week as directed Subcutaneous weekly; Duration: 30 days 02/23/2022 Not-Taking Omeprazole 20 mg TAKE 1 CAPSULE BY MOUTH 30 MINUTES BEFORE morning meal; Duration: 30 Active Trulicity 3 MG/0.5ML inject the content of 1 pen under the skin each week as directed Subcutaneous weekly; Duration: 30 days 02/23/2022 Not-Taking Tessalon Perles 100 MG 1 capsule as need ed Orally Three times a day; Duration: 7 days 03/19/2022 Not-Taking Benzonatate 100 MG 1 capsule as needed Orally Three times a day; Duration: 7 days 10/25/2022 Not-Taking hydrOXYzine HCl 25 MG 1 tablet Orally On ce a day; Duration: 90 days Active Lidocaine 5 % 1 patch remove after 12 hours Externally Once a day; Duration: 90 days Active Eliquis 5 mg TAKE ONE TABLET BY MOUTH two (2) times a day 30; Duration: 30 Active Montelukast Sodium 10 mg TAKE 1 TABLET B Y MOUTH ONCE A DAY; Duration: 30 days Active Cephalexin 500 MG 1 capsule Orally every 8 hours; Duration: 7 days 09/21/2023 Not-Taking predniSONE 10 MG 1 tablet Orally Once a day; Duration: 7 days 10/06/2023 Not-Taking Cyproheptadine HCl 4 MG TAKE ONE TABLET BY MOUTH 3 (THREE) TIMES A DAY NEEDED FOR ITCH 30 30; Duration: 30 Active predniSONE 20 MG 1 tablet Orally Once a day; Duration: 7 days 12/06/2023 Not-Taking Nebulizer/Tubing/Mouthpie ce - as directed for treatment of Dx: J45.30 inhalation every 4-6 hours prn; Duration: 30 days 06/26/2019 Active Benzonatate 100 MG 1 capsule as needed Orally Three times a day; Duration: 7 days 12/06/2023 Not-Taking Citalopram Hydrobromide 40 MG 2 tablet Orally Once a day; Duration: 30 day(s) Psy Active predniSONE 20 MG 1 tablet Orally Once a day; Duration: 7 days 02/29/2024 Not-Taking Mometasone Furoate 0.1 % Apply sparingly first before calcipotriene twice a day to affected areas on arms and chest as needed 30 30; Duration: 30 Active Doxycycline Hyclate 100 MG 1 capsule Orally Twice a day; Duration: 7 days 12/06/2023 Not-Taking Aszsvcrp-Rpquvnnmv-SB 1 % 4 drops into affected ear Otic Three times a day; Duration: 7 days 03/18/2023 Not-Taking Azelastine HCl 0.1 % 1 puff in each nostril Nasally Twice a day Active Tobramycin 0.3 % 1 drop into affected eye Ophthalmic every 4 hrs; Duration: 7 days 02/01/2024 Not-Taking Carafate 1 GM/10ML 10 ml on an empty stomach Orally Twice a day; Duration: 30 day(s) 05/04/2021 Not-Taking Ofloxacin 0.3 % 10 drops into affected ear Otic Once a day; Duration: 7 days 03/18/2023 Not-Taking Ondansetron HCl 4 MG 1 tablet Orally twice a day; Duration: 7 days 11/05/2022 Active Myrbetriq 50 MG 1 tablet Orally twice a day; Duration: 30 Urologist Active Metoclopramide HCl 10 MG 1 tablet before meals Orally Twice a day; Duration: 30 days 11/01/2022 Active Xopenex 1.25 MG/3ML 3 ml Inhalation three times daily; Duration: 15 Active oxyCODONE HCl 30 mg TAKE 1 TABLET BY MOUTH 3 (THREE) TIMES A DAY NEEDED FOR PAIN by mouth 3 times a day; Duration: 14 days 01/02/2024 Not-Taking FreeStyle Lite - as directed to check blood sugars Dx: E11.9 in vitro three times daily; Duration: 30 days 02/24/2018 Active ProAir HFA 108 (90 Base) MCG/ACT 2 puffs Inhalation Every 4 hours,PRN:for wheezing; Duration: 17 Not-Taking Nystatin-Triamcinolone 986255-9.1 UNIT/GM 1 application Externally Twice a day; Duration: 28 days 11/12/2024 Active Losartan Potassium 100 mg TAKE 1 TABLET BY MOUTH ONCE DAILY; Duration: 30 Active Baclofen 10 MG 1 tablet as needed Orally Twice a day Active D3 Super Strength 50 MCG (2000 UT) TAKE 1 CAPSULE BY MOUTH ONCE DAILY; Duration: 30 Active Ezetimibe 10 mg TAKE 1 TABLET BY MOUTH ONCE DAILY; Duration: 30 Active Atorvastatin Calcium 10 mg TAKE 1 TABLET BY MOUTH ONCE DAILY; Duration: 30 Active amLODIPine Besylate 5 mg TAKE ONE TABLET BY MOUTH ONCE A DAY once a day; Duration: 90 days Active tiZANidine HCl 4 MG 1 tablet Orally 3 times a day; Duration: 30 days As needed Active metFORMIN HCl 850 mg TAKE 1 TABLET BY MOUTH two (2) times a day. TAKE WITH MEALS; Duration: 30 Active Metoprolol Succinate ER 100 mg TAKE 1 TABLET BY MOUTH ONCE DAILY; Duration: 30 Active Easy Touch Lancets 28G - as directed; Duration: 30 days Active Albuterol Sulfate HFA 108 (90 Base) MCG/ACT 2 puffs as needed Inhalation every 6 hrs Active Ventolin HFA 108 (90 Base) MCG/ACT 1 puff as needed Inhalation every 4 hrs Active LORazepam 1 MG 1 tablet at bedtime as needed Orally Once a day Active OXcarbazepine 150 MG 1 tablet Orally Twice a day Active Loratadine 10 mg TAKE 1 TABLET BY MOUTH ONCE DAILY; Duration: 30 days Active Ozempic (0.25 or 0.5 MG/DOSE) 2 MG/3ML as directed Subcutaneous once a week Active Temazepam 30 MG 1 capsule at bedtime as needed Orally Once a day Not-Taking Omeprazole 40 MG 1 capsule 1/2 to 1 hour before morning meal Orally Once a day; Duration: 30 days Active Diclofenac Sodium 1 % as directed Externally 2 times a day; Duration: 30 days Active Fluconazole 150 mg TAKE 1 TABLET BY MOUTH EVERY 3 DAYS; Duration: 3 Active True Comfort Pen [place] 32G X 4 MM USE TO INJECT insulin 5 TIMES A DAY; Duration: 25 Active True Comfort Safety Lancets - USE TO TEST FINGER STICK BLOOD SUGAR 3 (THREE) TIMES A DAY; Duration: 30 Active Alcohol Pads 70 % USE TOPICALLY THREE TIMES DAILY; Duration: 30 days Active EPINEPHrine 0.3 MG/0.3ML INJECT INTRAMUSCULARLY THE CONTENT OF 1 pen as indicated by anaphylaxis; Duration: 7 Active Insulin Lispro (1 Unit Dial) 100 unit/mL INJECT 30 UNITS UNDER THE SKIN 3 (THREE) TIMES A DAY; Duration: 30 Active Fluconazole 50 MG 1 tablet Orally Daily; Duration: 10 day(s) 06/16/2020 Not-Taking clonazePAM 1 MG 2 tablets in the am and 2 tablets in pm Orally twice a day CHD Not-Taking Zofran 4 MG as directed Orally; Duration: 7 days 07/07/2018 Not-Taking Immunizations Vaccine Route Administration Date Status Comme nts COVID Moderna Unknown 08/21/2020 Administered COVID Moderna Unknown 09/19/2020 Administered COVID Moderna Unknown 05/12/2021 Administered COVID Moderna Unknown 10/08/2021 Administered Flublok Unknown 03/08/2024 Administered Influenza, high dose seasonal IM Intramuscular 04/20/2018 Administered Influenza, high dose seasonal Unknown 05/10/2021 Administered Influenza, seasonal, injectable (split), for 3 yrs and up IM Intramuscular 01/29/2019 Administered Pneumococcal polysaccharide PPV23 Unknown 04/29/2014 Administered Shingrix Unknown 05/12/2023 Administered TDAP Unknown 04/17/2015 Administered Social History Tobacco Use: Social History [...] W/U Status Risk Notes Problem Diabetic neuropathy (838716820) Diabetes mellitus due to underlying condition with diabetic neuropathy, unspecified (E08.40) Active confirmed Problem Morbid obesity (disorder) (837177756) Morbid (severe) obesity due to excess calories (E66.01) Active confirmed Problem Anxiety disorder (679544835) Anxiety disorder, unspecified (F41.9) Active confirmed Problem Essential tremor (409768896) Essential tremor (G25.0) Active confirmed Problem Insomnia (852239760) Insomnia, unspecified (G47.00) Active confirmed Problem Obstructive sleep apnea syndrome (71845005) Obstructive sleep apnea (adult) (pediatric) (G47.33) Active confirmed Problem Essential hypertensi on (08936413) Essential (primary) hypertension (I10) Active confirmed Problem Chronic kidney disea se due to hypertension (019730215293378) Hypertensive chronic kidney disease with stage 1 through stage 4 chronic kidney disease, or unspecified chronic kidney disease (I12.9) Active confirmed Problem Peripheral vascular disease (604982737) Peripheral vascular disease, unspecified (I73.9) Active confirmed Problem Embolism from thrombosis of vein of lower extremity (137064804) Chronic embolism and thrombosis of unspecified deep veins of unspecified lower extremity (I82.509) Active confirmed Problem Uncomplicated mild persistent asthma (151625990) Mild persistent asthma, uncomplicated (J45.30) Active confirmed Problem Polyp of colon (16653186) Polyp of colon (K63.5) Active confirmed Problem Acquired hammer toe of right foot (5005829320554370) Other hammer toe(s) (acquired), right foot (M20.41) Active confirmed Problem Shoulder joint pain (900528699) Pain in left shoulder (M25.512) Active confirmed Problem Lumbosacral radiculopathy (6110721) Radiculopathy, lumbosacral region (M54.17) Active confirmed Problem Dysphagia (62260362) Dysphagia, unspecified (R13.10) Active confirmed Problem Paresthesia (finding ) (54067165) Paresthesia of skin (R20.2) Active confirmed Problem Amputated below knee (247030778) Acquired absence of left leg below knee (Z89.512) Active confirmed Problem Pure hypercholesterolemia (784367822) Pure hypercholesterolem ia, unspecified (E78.00) Active confirmed Problem Chronic kidney disea se stage 3 (disorder) (802770889) Chronic kidney disease, stage 3 unspecified (N18.30) Active confirmed Problem Chronic kidney disea se stage 3A (disorder) (448400702) Chronic kidney disease, stage 3a (N18.31) Active confirmed Problem Type 2 diabetes mellitus with other specified complication, without long-term current use of insulin (E11.69) Active confirmed Problem Urinary incontinence (133299498) Urinary incontinence, unspecified type (R32) Active confirmed Problem Gastroesophageal reflux disease (821698412) Gastroesophageal reflux disease, unspecified whether esophagitis present (K21.9) Active confirmed Vital Signs Heart Rate 74 /min 11/26/2024 Temperature 97.0 degrees Fahrenheit 11/26/2024 Blood pressure diastolic 78 mm Hg 11/26/2024 Oximetry 96 % 11/26/2024 Height 62.24 in 11/26/2024 Blood pressure systolic 130 mm Hg 11/26/2024 Weight 229.8 lbs 11/26/2024 BMI 41.7 kg/m2 11/26/2024 Encounters Encounter Location Date Provider Diagnosis [address] [address] 12/06/2023 JARAMILLO GUL Mild persistent asth ma, uncomplicated J45.[address] [address] 02/01/2024 JARAMILLO GUL Other conjunctivitis H10.89 ; Left temporomandibular joint disorder, unspecified M26.602 ; Radiculopathy, lumbosacral region M54.17 and Other hammer toe(s) (acquired), right foot M20.[address] [address] 02/21/2024 JARAMILLO GUL Radiculopathy, lumbosacral region M54.17 ; Diabetes mellitus due to underlying condition with diabetic neuropathy, unspecified E08.40 ; Essential (primary) hypertension I10 and Chronic kidney disease, stage 3 unspecified N18.[address] [place] [address] 02/29/2024 Mitchellkarolynnas Kennypolykuldeep Acute URI J06.[address] [place] [address] 04/18/2024 Mitchellkarolynnas Kennypolykuldeep Diabetes mellitus du e [...] of micturition R35.0 and Epidermal cyst L72.[address] [address] 05/14/2024 JARAMILLO GUL Pain in right leg M7 9.[address] [address] 05/23/2024 JARAMILLO GUL Diabetes mellitus du e to underlying condition with diabetic neuropathy, unspecified E08.40 ; Essential (primary) hypertension I10 ; Obstructive sleep apnea (adult) (pediatric) G47.33 ; Anxiety disorder, unspecified F41.9 ; Mild persistent asthma, uncomplicated J45.30 ; Chronic embolism and thrombosis of unspecified deep veins of unspecified lower extremity I82.509 and Chronic kidney disease, stage 3 unspecified N18.[address] [place] [address] 07/31/2024 JARAMILLO GUL Diabetes mellitus du e [...] Chronic kidney disease, stage 3 unspecified N18.30 [facility] [address] [facility] [address] [place] [address] 09/17/2024 ELLA MICHAEL Unspecified fall, in itial encounter W19.XXXA and Pain in right leg M79.604 [facility] [address] [facility] [address] [place] [address] 11/26/2024 ELLA MICHAEL Annual physical exam Z00.00 ; Essential (primary) hypertension I10 ; Diabetes mellitus due to underlying condition with diabetic neuropathy, unspecified E08.40 ; Anxiety disorder, unspecified F41.9 ; Chronic kidney disease, stage 3a N18.31 ; Hypertensive chronic kidney disease with stage 1 through stage 4 chronic kidney disease, or unspecified chronic kidney disease I12.9 ; Mild persistent asthma, uncomplicated J45.30 ; Obstructive sleep apnea (adult) (pediatric) G47.33 and Chronic embolism and thrombosis of unspecified deep veins of unspecified lower extremity I82.[address] [place] [address] 12/07/[address] [place] [address] 12/19/[address] [place] [address] 01/02/[address] [place] [address] 01/10/[address] [place] [address] 01/25/[address] [place] [address] 02/02/2024 JARAMILLO GUL Other conjunctivitis H10.[address] [place] [address] [facility] [address] [place] [address] 02/07/2024 [facility] [address] [facility] [address] [place] [address] 02/16/2024 [facility] Diabetes mellitus du e to underlying condition with diabetic neuropathy, unspecified E08.40 [facility] [address] [facility] [address] [place] [address] 02/23/2024 [facility] [address] [facility] [address] [place] [address] 02/28/2024 [facility] [address] [facility] [address] [place] [address] 03/05/2024 [facility] [address] [facility] [address] [place] [address] 04/16/2024 [facility] [address] [facility] [address] [place] [address] 04/16/2024 [facility] [address] [facility] [address] [place] [address] 06/21/2024 [facility] [address] [facility] [address] [place] [address] 07/13/2024 [facility] [address] [facility] [address] [place] [address] 07/30/2024 [facility] [address] [facility] [address] [place] [address] 08/16/2024 [facility] [address] [facility] [address] [place] [address] 08/16/2024 [facility] Pure hypercholesterolemia, unspecified E78.00 [facility] [address] [facility] [address] [place] [address] 08/22/2024 [facility] [address] [facility] [address] [place] [address] 08/22/2024 ELLA MICHAEL [facility] [address] [address] 09/25/2024 ELLA MICHAEL Acute URI J06.[address] [place] [address] 11/08/2024 ELLA MICHAEL [address] [address] 11/12/2024 JARAMILLOMARLON MICHAEL [address] [place] [address] 11/26/2024 ELLA MICHAEL Peripheral vascular disease, unspecified I73.9 Assessments Encounter Date Diagnosis (ICD Code) Assessment [...] this note under HIPAA compliance and under [place] law mandated for scribe services. Patient aware [...] negative and it was sent to [facility] for further evaluation and it was reported [...] this note under HIPAA compliance and under [place] law mandated for scribe services. Patient aware [...] negative and it was sent to [facility] for further evaluation and it was reported [...] this note under HIPAA compliance and under [place] law mandated for scribe services. Patient aware of service. Verbal consent and written consent taken from the patient. Patient understands and verbalizes understanding of the scribes services and all questions answered regarding scribes services. Patient agrees to use of scribes services. 02/02/2024 Other conjunctivitis (ICD-10 - H10.89) 02/16/2024 Diabetes mellitus due to underlying condition with diabetic neuropathy, unspecified (ICD-10 - E08.40) 02/29/2024 Acute URI (ICD-10 - J06.9) Maribell [...] afternoon for breakthrough pains. She follows with [facility] Dr. Iraheta. Chronic kidney disease stage 3. -She does not appear to be in volume overload. Advised appropriate hydration. Avoid NSAIDs. She sees Dr. Lakhani. Asthma. -She uses her inhalers as needed. Follows with Dr. [facility] Generalized anxiety disorder. -Mood is stable on Lorazepam 3 times a day. She has a psychiatrist and a therapist. GERD/gastroparesis /dysphagia - Currently she is on omperazole 20m and Reglan 10 MG twice a day. I have increased omperazole to 40mg and advised patient to follow-up with her GI at [place]. She has an appt in May. MUSA: [...] patient but was available upon request 05/23/2024 Diabetes mellitus due to underlying condition [...] with diabetic neuropathy. She follows up with [facility] endocrinology and according to patient her last A1c was within normal range. She is seen can dryer in the past. She follows up with farm appraiser and kidney function is stable. Foot care discussed with the patient. Hypertension/hyper lipidemia. Blood pressure well controlled and last lipid panel was within reasonable limits Obstructive sleep apnea. Continue on CPAP machine and no daytime sleepiness. Moderate persistent asthma. She stable when she follows up with die repair Anxiety/depression . Stable on current regimen. Considering her neuropathy she may be a good candidate for duloxetine which can be added to her regimen and she will check with her psychiatrist. Chronic kidney disease. She is stable and she follows up with farm appraiser to avoid NSAIDs. Right lower extremity swelling. [...] and hemoglobin A1c and follows up with [facility] end[facility]. She is seen can dryer in the past. She follows up with farm appraiser and kidney function is stable. Foot care discussed with the patient. Hypertension/hyper lipidemia. Blood pressure well controlled and last lipid panel was within reasonable limits Obstructive sleep apnea. Continue on CPAP machine and no daytime sleepiness. Moderate persistent asthma. She stable when she follows up with die repair Anxiety/depression . Stable on current regimen. Considering her neuropathy she may be a good candidate for duloxetine which can be added to her regimen and she will check with her psychiatrist. Chronic kidney disease. She is stable and she follows up with farm appraiser to avoid NSAIDs. Right lower extremity swelling. It is nonpitting edema most likely lymphedema. She is on Eliquis and less likely to be a DVT and ultrasound lower extremity was negative. Vaginal candidiasis. She is given fluconazole and advised to control blood sugars 08/16/2024 Pure hypercholesterolemia , unspecified (ICD-10 - E78.00) 09/17/2024 Pain in right leg (ICD-10 - [...] is on Eliquis. She was taken to [facility] where she had CT scan of [...] is on Eliquis. She was taken to [facility] where she had CT scan of the head and x-ray of the right leg which were negative. Plan is as follows Hematoma of right [place]. Discussed with the patient that it is superficial and she is low risk for DVTs. Keep the leg elevated and iced the leg. No other intervention is very 09/25/2024 Acute URI (ICD-10 - J06.9) 02/21/2024 Diabetes mellitus due to underlying condition with diabetic neuropathy, unspecified (ICD-10 - E08.40) Maribell is a 63-year-old lady with DM2, hypertension, hyperlipidemia, asthma, insomnia and anxiety here for follow up. Plan is as follows: Type II diabetes mellitus. Hb A1c improve energy 6.1.She is on right medications. She has seen her can dryer in the past 1 year. Foot care [...] because she is on temazepam. Referred to [facility] Dr. Iraheta. Chronic kidney [...] this note under HIPAA compliance and under [place] law mandated for scribe services. Patient aware [...] on right medications. She has seen her can dryer in the past 1 year. Foot care [...] because she is on temazepam. Referred to [facility] Dr. Iraheta. Chronic kidney [...] this note under HIPAA compliance and under [place] law mandated for scribe services. Patient aware [...] continue Eliquis 5 mg twice a day 11/26/2024 Essential (primary) hypertension (ICD-10 - I10) Maribell is a 64-year-old lady with DM2, hypertension, hyperlipidemia, asthma, insomnia, anxiety, obstructive sleep apnea, peripheral vascular disease, DVT right lower extremity, obesity, chronic kidney disease stage IIIa and follows up with farm appraiser is here today for annual physical. Diabetes mellitus type 2 with diabetic neuropathy. Her last hemoglobin A1c was 7.1. She is stable on the above-mentioned regimen. She follows up with x ray consultant. She is seeing can dryer in the past 1 year. She takes good care of her right leg and foot. She is on appropriate medications. Hypertension/hyper lipidemia. Blood pressure well controlled on current regimen and she is on statins and THADDEUS. Generalized anxiety disorder. She follows up with psychiatry and she is stable on the above-mentioned regimen. Mild persistent asthma. Stable on current regimen. Chronic kidney disease stage III. Stable and does not appear to be in volume overload. Avoid NSAIDs. Obstructive sleep apnea. She uses CPAP machine on a regular basis and no daytime sleepiness. Multiple joint osteoarthritis. We tried Topamax which she could not tolerate. Other option is Cymbalta which she will discuss with her psychiatrist and will let us know. Obesity. She is gaining weight. Advised physical activity, portion control and goal is to lose roughly 6 pounds a month. She is a good candidate for GLP-1. Advised to talk to her x ray consultant to start the medication. EKG is normal sinus rhythm at [address] with no acute ST or T wave changes., no bundle branch blocks, normal intervals She is up to date on age specific screening. She is full code and her is her healthcare proxy 11/26/2024 Annual physical exam (ICD-10 - Z00.00) Maribell is a 64-year-old lady with DM2, hypertension, hyperlipidemia, asthma, insomnia, anxiety, obstructive sleep apnea, peripheral vascular disease, DVT right lower extremity, obesity, chronic kidney disease stage IIIa and follows up with farm appraiser is here today for annual physical. Diabetes mellitus type 2 with diabetic neuropathy. Her last hemoglobin A1c was 7.1. She is stable on the above-mentioned regimen. She follows up with x ray consultant. She is seeing can dryer in the past 1 year. She takes good care of her right leg and foot. She is on appropriate medications. Hypertension/hyper lipidemia. Blood pressure well controlled on current regimen and she is on statins and THADDEUS. Generalized anxiety disorder. She follows up with psychiatry and she is stable on the above-mentioned regimen. Mild persistent asthma. Stable on current regimen. Chronic kidney disease stage III. Stable and does not appear to be in volume overload. Avoid NSAIDs. Obstructive sleep apnea. She uses CPAP machine on a regular basis and no daytime sleepiness. Multiple joint osteoarthritis. We tried Topamax which she could not tolerate. Other option is Cymbalta which she will discuss with her psychiatrist and will let us know. Obesity. She is gaining weight. Advised physical activity, portion control and goal is to lose roughly 6 pounds a month. She is a good candidate for GLP-1. Advised to talk to her x ray consultant to start the medication. EKG is normal sinus rhythm at [address] bpm with no acute ST or T wave changes., no bundle branch blocks, normal intervals She is up to date on age specific screening. She is full code and her is her healthcare proxy 11/26/2024 Diabetes mellitus due to underlying condition with diabetic neuropathy, unspecified (ICD-10 - E08.40) Maribell is a 64-year-old lady with DM2, hypertension, hyperlipidemia, asthma, insomnia, anxiety, obstructive sleep apnea, peripheral vascular disease, DVT right lower extremity, obesity, chronic kidney disease stage IIIa and follows up with farm appraiser is here today for annual physical. Diabetes mellitus type 2 with diabetic neuropathy. Her last hemoglobin A1c was 7.1. She is stable on the above-mentioned regimen. She follows up with x ray consultant. She is seeing can dryer in the past 1 year. She takes good care of her right leg and foot. She is on appropriate medications. Hypertension/hyper lipidemia. Blood pressure well controlled on current regimen and she is on statins and THADDEUS. Generalized anxiety disorder. She follows up with psychiatry and she is stable on the above-mentioned regimen. Mild persistent asthma. Stable on current regimen. Chronic kidney disease stage III. Stable and does not appear to be in volume overload. Avoid NSAIDs. Obstructive sleep apnea. She uses CPAP machine on a regular basis and no daytime sleepiness. Multiple joint osteoarthritis. We tried Topamax which she could not tolerate. Other option is Cymbalta which she will discuss with her psychiatrist and will let us know. Obesity. She is gaining weight. Advised physical activity, portion control and goal is to lose roughly 6 pounds a month. She is a good candidate for GLP-1. Advised to talk to her x ray consultant to start the medication. EKG is normal sinus rhythm at [address]pm with no acute ST or T wave changes., no bundle branch blocks, normal intervals She is up to date on age specific screening. She is full code and her is her healthcare proxy 02/21/2024 Essential (primary) hypertension (ICD-10 - I10) Maribell is a 63-year-old lady with DM2, hypertension, hyperlipidemia, asthma, insomnia and anxiety here for follow up. Plan is as follows: Type II diabetes mellitus. Hb A1c improve energy 6.1.She is on right medications. She has seen her can dryer in the past 1 year. Foot care [...] because she is on temazepam. Referred to [facility] Dr. Iraheta. Chronic kidney [...] this note under HIPAA compliance and under [place] law mandated for scribe services. Patient aware of service. Verbal consent and written consent taken from the patient. Patient understands and verbalizes understanding of the scribes services and all questions answered regarding scribes services. Patient agrees to use of scribes services. 11/26/2024 Peripheral vascular disease, unspecified (ICD-10 - I73.9) 07/31/2024 Essential (primary) hypertension (ICD-10 - I10) [...] and hemoglobin A1c and follows up with [facility]. She is seen can dryer in the past. She follows up with farm appraiser and kidney function is stable. Foot care discussed with the patient. Hypertension/hyper lipidemia. Blood pressure well controlled and last lipid panel was within reasonable limits Obstructive sleep apnea. Continue on CPAP machine and no daytime sleepiness. Moderate persistent asthma. She stable when she follows up with die repair Anxiety/depression . Stable on current regimen. Considering her neuropathy she may be a good candidate for duloxetine which can be added to her regimen and she will check with her psychiatrist. Chronic kidney disease. She is stable and she follows up with farm appraiser to avoid NSAIDs. Right lower extremity swelling. [...] with diabetic neuropathy. She follows up with [facility] and according to patient her last A1c was within normal range. She is seen can dryer in the past. She follows up with farm appraiser and kidney function is stable. Foot care discussed with the patient. Hypertension/hyper lipidemia. Blood pressure well controlled and last lipid panel was within reasonable limits Obstructive sleep apnea. Continue on CPAP machine and no daytime sleepiness. Moderate persistent asthma. She stable when she follows up with die repair Anxiety/depression . Stable on current regimen. Considering her neuropathy she may be a good candidate for duloxetine which can be added to her regimen and she will check with her psychiatrist. Chronic kidney disease. She is stable and she follows up with farm appraiser to avoid NSAIDs. Right lower extremity swelling. It is nonpitting edema most likely lymphedema. She is on Eliquis and less likely to be a DVT but considering her history we will do ultrasound right lower extremity in the next few days. 07/31/2024 Other urogenital candidiasis (ICD-10 - B37.49) [...] and hemoglobin A1c and follows up with [facility]. She is seen can dryer in the past. She follows up with farm appraiser and kidney function is stable. Foot care discussed with the patient. Hypertension/hyper lipidemia. Blood pressure well controlled and last lipid panel was within reasonable limits Obstructive sleep apnea. Continue on CPAP machine and no daytime sleepiness. Moderate persistent asthma. She stable when she follows up with die repair Anxiety/depression . Stable on current regimen. Considering her neuropathy she may be a good candidate for duloxetine which can be added to her regimen and she will check with her psychiatrist. Chronic kidney disease. She is stable and she follows up with farm appraiser to avoid NSAIDs. Right lower extremity swelling. It is nonpitting edema most likely lymphedema. She is on Eliquis and less likely to be a DVT and ultrasound lower extremity was negative. Vaginal candidiasis. She is given fluconazole and advised to control blood sugars 02/01/2024 Radiculopathy, lumbosacral region (ICD-10 - M54.17) [...] negative and it was sent to [facility] for further evaluation and it was reported [...] this note under HIPAA compliance and under [place] law mandated for scribe services. Patient aware [...] afternoon for breakthrough pains. She follows with [facility] Dr. Iraheta. Chronic kidney disease stage 3. -She does not appear to be in volume overload. Advised appropriate hydration. Avoid NSAIDs. She sees Dr. Lakhani. Asthma. -She uses her inhalers as needed. Follows with Dr. [facility] Generalized anxiety disorder. -Mood is stable on Lorazepam 3 times a day. She has a psychiatrist and a therapist. GERD/gastroparesis /dysphagia - Currently she is on omperazole 20m and Reglan 10 MG twice a day. I have increased omperazole to 40mg and advised patient to follow-up with her GI at [place]. She has an appt in May. MUSA: [...] afternoon for breakthrough pains. She follows with [facility] Dr. Iraheta. Chronic kidney disease stage 3. -She does not appear to be in volume overload. Advised appropriate hydration. Avoid NSAIDs. She sees Dr. Lakhani. Asthma. -She uses her inhalers as needed. Follows with Dr. Shipley-[facility] Generalized anxiety disorder. -Mood is stable on Lorazepam 3 times a day. She has a psychiatrist and a therapist. GERD/gastroparesis /dysphagia - Currently she is on omperazole 20m and Reglan 10 MG twice a day. I have increased omperazole to 40mg and advised patient to follow-up with her GI at [place]. She has an appt in May. MUSA: [...] the patient but was available upon request 02/01/2024 Other hammer toe(s) (acquired), right foot [...] negative and it was sent to [facility] for further evaluation and it was reported [...] this note under HIPAA compliance and under [place] law mandated for scribe services. Patient aware [...] with diabetic neuropathy. She follows up with [facility] and according to patient her last A1c was within normal range. She is seen can dryer in the past. She follows up with farm appraiser and kidney function is stable. Foot care discussed with the patient. Hypertension/hyper lipidemia. Blood pressure well controlled and last lipid panel was within reasonable limits Obstructive sleep apnea. Continue on CPAP machine and no daytime sleepiness. Moderate persistent asthma. She stable when she follows up with die repair Anxiety/depression . Stable on current regimen. Considering her neuropathy she may be a good candidate for duloxetine which can be added to her regimen and she will check with her psychiatrist. Chronic kidney disease. She is stable and she follows up with farm appraiser to avoid NSAIDs. Right lower extremity swelling. [...] and hemoglobin A1c and follows up with [facility]. She is seen can dryer in the past. She follows up with farm appraiser and kidney function is stable. Foot care discussed with the patient. Hypertension/hyper lipidemia. Blood pressure well controlled and last lipid panel was within reasonable limits Obstructive sleep apnea. Continue on CPAP machine and no daytime sleepiness. Moderate persistent asthma. She stable when she follows up with die repair Anxiety/depression . Stable on current regimen. Considering her neuropathy she may be a good candidate for duloxetine which can be added to her regimen and she will check with her psychiatrist. Chronic kidney disease. She is stable and she follows up with farm appraiser to avoid NSAIDs. Right lower extremity swelling. [...] on right medications. She has seen her can dryer in the past 1 year. Foot care [...] because she is on temazepam. Referred to [facility] Dr. Iraheta. Chronic kidney [...] this note under HIPAA compliance and under [place] law mandated for scribe services. Patient aware of service. Verbal consent and written consent taken from the patient. Patient understands and verbalizes understanding of the scribes services and all questions answered regarding scribes services. Patient agrees to use of scribes services. 11/26/2024 Anxiety disorder, unspecified (ICD-10 - F41.9) Maribell is a 64-year-old lady with DM2, hypertension, hyperlipidemia, asthma, insomnia, anxiety, obstructive sleep apnea, peripheral vascular disease, DVT right lower extremity, obesity, chronic kidney disease stage IIIa and follows up with farm appraiser is here today for annual physical. Diabetes mellitus type 2 with diabetic neuropathy. Her last hemoglobin A1c was 7.1. She is stable on the above-mentioned regimen. She follows up with x ray consultant. She is seeing can dryer in the past 1 year. She takes good care of her right leg and foot. She is on appropriate medications. Hypertension/hyper lipidemia. Blood pressure well controlled on current regimen and she is on statins and THADDEUS. Generalized anxiety disorder. She follows up with psychiatry and she is stable on the above-mentioned regimen. Mild persistent asthma. Stable on current regimen. Chronic kidney disease stage III. Stable and does not appear to be in volume overload. Avoid NSAIDs. Obstructive sleep apnea. She uses CPAP machine on a regular basis and no daytime sleepiness. Multiple joint osteoarthritis. We tried Topamax which she could not tolerate. Other option is Cymbalta which she will discuss with her psychiatrist and will let us know. Obesity. She is gaining weight. Advised physical activity, portion control and goal is to lose roughly 6 pounds a month. She is a good candidate for GLP-1. Advised to talk to her x ray consultant to start the medication. EKG is normal sinus rhythm at [address]pm with no acute ST or T wave changes., no bundle branch blocks, normal intervals She is up to date on age specific screening. She is full code and her is her healthcare proxy 11/26/2024 Chronic kidney disease, stage 3a (ICD-10 - N18.31) Maribell is a 64-year-old lady with DM2, hypertension, hyperlipidemia, asthma, insomnia, anxiety, obstructive sleep apnea, peripheral vascular disease, DVT right lower extremity, obesity, chronic kidney disease stage IIIa and follows up with farm appraiser is here today for annual physical. Diabetes mellitus type 2 with diabetic neuropathy. Her last hemoglobin A1c was 7.1. She is stable on the above-mentioned regimen. She follows up with x ray consultant. She is seeing can dryer in the past 1 year. She takes good care of her right leg and foot. She is on appropriate medications. Hypertension/hyper lipidemia. Blood pressure well controlled on current regimen and she is on statins and THADDEUS. Generalized anxiety disorder. She follows up with psychiatry and she is stable on the above-mentioned regimen. Mild persistent asthma. Stable on current regimen. Chronic kidney disease stage III. Stable and does not appear to be in volume overload. Avoid NSAIDs. Obstructive sleep apnea. She uses CPAP machine on a regular basis and no daytime sleepiness. Multiple joint osteoarthritis. We tried Topamax which she could not tolerate. Other option is Cymbalta which she will discuss with her psychiatrist and will let us know. Obesity. She is gaining weight. Advised physical activity, portion control and goal is to lose roughly 6 pounds a month. She is a good candidate for GLP-1. Advised to talk to her x ray consultant to start the medication. EKG is normal sinus rhythm at [address]pm with no acute ST or T wave changes., no bundle branch blocks, normal intervals She is up to date on age specific screening. She is full code and her is her healthcare proxy 07/31/2024 Anxiety disorder, unspecified (ICD-10 - F41.9) [...] and hemoglobin A1c and follows up with [facility]. She is seen can dryer in the past. She follows up with farm appraiser and kidney function is stable. Foot care discussed with the patient. Hypertension/hyper lipidemia. Blood pressure well controlled and last lipid panel was within reasonable limits Obstructive sleep apnea. Continue on CPAP machine and no daytime sleepiness. Moderate persistent asthma. She stable when she follows up with die repair Anxiety/depression . Stable on current regimen. Considering her neuropathy she may be a good candidate for duloxetine which can be added to her regimen and she will check with her psychiatrist. Chronic kidney disease. She is stable and she follows up with farm appraiser to avoid NSAIDs. Right lower extremity swelling. It is nonpitting edema most likely lymphedema. She is on Eliquis and less likely to be a DVT and ultrasound lower extremity was negative. Vaginal candidiasis. She is given fluconazole and advised to control blood sugars 05/23/2024 Anxiety disorder, unspecified (ICD-10 - F41.9) Mariebll is 63 years old lady with DM type II, hypertension, hyperlipidemia, morbid persistent asthma, generalized anxiety disorder/depressio n, chronic kidney disease stage IIIa, trigeminal neuralgia, obstructive sleep apnea, chronic pain syndrome is here for follow-up. Plan is as follows Diabetes mellitus type 2 with diabetic neuropathy. She follows up with [facility] and according to patient her last A1c was within normal range. She is seen can dryer in the past. She follows up with farm appraiser and kidney function is stable. Foot care discussed with the patient. Hypertension/hyper lipidemia. Blood pressure well controlled and last lipid panel was within reasonable limits Obstructive sleep apnea. Continue on CPAP machine and no daytime sleepiness. Moderate persistent asthma. She stable when she follows up with die repair Anxiety/depression . Stable on current regimen. Considering her neuropathy she may be a good candidate for duloxetine which can be added to her regimen and she will check with her psychiatrist. Chronic kidney disease. She is stable and she follows up with farm appraiser to avoid NSAIDs. Right lower extremity swelling. [...] afternoon for breakthrough pains. She follows with [facility] Dr. Iraheta. Chronic kidney disease stage 3. -She does not appear to be in volume overload. Advised appropriate hydration. Avoid NSAIDs. She sees Dr. Lakhani. Asthma. -She uses her inhalers as needed. Follows with Dr. Ship[facility] Generalized anxiety disorder. -Mood is stable on Lorazepam 3 times a day. She has a psychiatrist and a therapist. GERD/gastroparesis /dysphagia - Currently she is on omperazole 20m and Reglan 10 MG twice a day. I have increased omperazole to 40mg and advised patient to follow-up with her GI at [place]. She has an appt in May. MUSA: [...] afternoon for breakthrough pains. She follows with [facility] Dr. Iraheta. Chronic kidney disease stage 3. -She does not appear to be in volume overload. Advised appropriate hydration. Avoid NSAIDs. She sees Dr. Lakhani. Asthma. -She uses her inhalers as needed. Follows with Dr. Ship[facility] Generalized anxiety disorder. -Mood is stable on Lorazepam 3 times a day. She has a psychiatrist and a therapist. GERD/gastroparesis /dysphagia - Currently she is on omperazole 20m and Reglan 10 MG twice a day. I have increased omperazole to 40mg and advised patient to follow-up with her GI at [place]. She has an appt in May. MUSA: [...] with diabetic neuropathy. She follows up with [facility] and according to patient her last A1c was within normal range. She is seen can dryer in the past. She follows up with farm appraiser and kidney function is stable. Foot care discussed with the patient. Hypertension/hyper lipidemia. Blood pressure well controlled and last lipid panel was within reasonable limits Obstructive sleep apnea. Continue on CPAP machine and no daytime sleepiness. Moderate persistent asthma. She stable when she follows up with die repair Anxiety/depression . Stable on current regimen. Considering her neuropathy she may be a good candidate for duloxetine which can be added to her regimen and she will check with her psychiatrist. Chronic kidney disease. She is stable and she follows up with farm appraiser to avoid NSAIDs. Right lower extremity swelling. [...] and hemoglobin A1c and follows up with [facility] endocrinology. She is seen can dryer in the past. She follows up with farm appraiser and kidney function is stable. Foot care discussed with the patient. Hypertension/hyper lipidemia. Blood pressure well controlled and last lipid panel was within reasonable limits Obstructive sleep apnea. Continue on CPAP machine and no daytime sleepiness. Moderate persistent asthma. She stable when she follows up with die repair Anxiety/depression . Stable on current regimen. Considering her neuropathy she may be a good candidate for duloxetine which can be added to her regimen and she will check with her psychiatrist. Chronic kidney disease. She is stable and she follows up with farm appraiser to avoid NSAIDs. Right lower extremity swelling. It is nonpitting edema most likely lymphedema. She is on Eliquis and less likely to be a DVT and ultrasound lower extremity was negative. Vaginal candidiasis. She is given fluconazole and advised to control blood sugars 11/26/2024 Hypertensive chronic kidney disease with stage 1 through stage 4 chronic kidney disease, or unspecified chronic kidney disease (ICD-10 - I12.9) Maribell is a 64-year-old lady with DM2, hypertension, hyperlipidemia, asthma, insomnia, anxiety, obstructive sleep apnea, peripheral vascular disease, DVT right lower extremity, obesity, chronic kidney disease stage IIIa and follows up with farm appraiser is here today for annual physical. Diabetes mellitus type 2 with diabetic neuropathy. Her last hemoglobin A1c was 7.1. She is stable on the above-mentioned regimen. She follows up with x ray consultant. She is seeing can dryer in the past 1 year. She takes good care of her right leg and foot. She is on appropriate medications. Hypertension/hyper lipidemia. Blood pressure well controlled on current regimen and she is on statins and THADDEUS. Generalized anxiety disorder. She follows up with psychiatry and she is stable on the above-mentioned regimen. Mild persistent asthma. Stable on current regimen. Chronic kidney disease stage III. Stable and does not appear to be in volume overload. Avoid NSAIDs. Obstructive sleep apnea. She uses CPAP machine on a regular basis and no daytime sleepiness. Multiple joint osteoarthritis. We tried Topamax which she could not tolerate. Other option is Cymbalta which she will discuss with her psychiatrist and will let us know. Obesity. She is gaining weight. Advised physical activity, portion control and goal is to lose roughly 6 pounds a month. She is a good candidate for GLP-1. Advised to talk to her x ray consultant to start the medication. EKG is normal sinus rhythm at [address]pm with no acute ST or T wave changes., no bundle branch blocks, normal intervals She is up to date on age specific screening. She is full code and her is her healthcare proxy 11/26/2024 Mild persistent asthma, uncomplicated (ICD-10 - J45.30) Maribell is a 64-year-old lady with DM2, hypertension, hyperlipidemia, asthma, insomnia, anxiety, obstructive sleep apnea, peripheral vascular disease, DVT right lower extremity, obesity, chronic kidney disease stage IIIa and follows up with farm appraiser is here today for annual physical. Diabetes mellitus type 2 with diabetic neuropathy. Her last hemoglobin A1c was 7.1. She is stable on the above-mentioned regimen. She follows up with x ray consultant. She is seeing can dryer in the past 1 year. She takes good care of her right leg and foot. She is on appropriate medications. Hypertension/hyper lipidemia. Blood pressure well controlled on current regimen and she is on statins and THADDEUS. Generalized anxiety disorder. She follows up with psychiatry and she is stable on the above-mentioned regimen. Mild persistent asthma. Stable on current regimen. Chronic kidney disease stage III. Stable and does not appear to be in volume overload. Avoid NSAIDs. Obstructive sleep apnea. She uses CPAP machine on a regular basis and no daytime sleepiness. Multiple joint osteoarthritis. We tried Topamax which she could not tolerate. Other option is Cymbalta which she will discuss with her psychiatrist and will let us know. Obesity. She is gaining weight. Advised physical activity, portion control and goal is to lose roughly 6 pounds a month. She is a good candidate for GLP-1. Advised to talk to her x ray consultant to start the medication. EKG is normal sinus rhythm at 88 bpm with no acute ST or T wave changes., no bundle branch blocks, normal intervals She is up to date on age specific screening. She is full code and her is her healthcare proxy 07/31/2024 Chronic embolism and thrombosis of unspecified [...] and hemoglobin A1c and follows up with [facility] endocrinology. She is seen can dryer in the past. She follows up with farm appraiser and kidney function is stable. Foot care discussed with the patient. Hypertension/hyper lipidemia. Blood pressure well controlled and last lipid panel was within reasonable limits Obstructive sleep apnea. Continue on CPAP machine and no daytime sleepiness. Moderate persistent asthma. She stable when she follows up with die repair Anxiety/depression . Stable on current regimen. Considering her neuropathy she may be a good candidate for duloxetine which can be added to her regimen and she will check with her psychiatrist. Chronic kidney disease. She is stable and she follows up with farm appraiser to avoid NSAIDs. Right lower extremity swelling. It is nonpitting edema most likely lymphedema. She is on Eliquis and less likely to be a DVT and ultrasound lower extremity was negative. Vaginal candidiasis. She is given fluconazole and advised to control blood sugars 05/23/2024 Chronic embolism and thrombosis of unspecified [...] with diabetic neuropathy. She follows up with [facility] endocrinology and according to patient her last A1c was within normal range. She is seen can dryer in the past. She follows up with farm appraiser and kidney function is stable. Foot care discussed with the patient. Hypertension/hyper lipidemia. Blood pressure well controlled and last lipid panel was within reasonable limits Obstructive sleep apnea. Continue on CPAP machine and no daytime sleepiness. Moderate persistent asthma. She stable when she follows up with die repair Anxiety/depression . Stable on current regimen. Considering her neuropathy she may be a good candidate for duloxetine which can be added to her regimen and she will check with her psychiatrist. Chronic kidney disease. She is stable and she follows up with farm appraiser to avoid NSAIDs. Right lower extremity swelling. [...] afternoon for breakthrough pains. She follows with [facility] Dr. Iraheta. Chronic kidney disease stage 3. -She does not appear to be in volume overload. Advised appropriate hydration. Avoid NSAIDs. She sees Dr. Lakhani. Asthma. -She uses her inhalers as needed. Follows with Dr. [facility]ley[facility] Generalized anxiety disorder. -Mood is stable on Lorazepam 3 times a day. She has a psychiatrist and a therapist. GERD/gastroparesis /dysphagia - Currently she is on omperazole 20m and Reglan 10 MG twice a day. I have increased omperazole to 40mg and advised patient to follow-up with her GI at [place]. She has an appt in May. MUSA: [...] with diabetic neuropathy. She follows up with [facility] endocrinology and according to patient her last A1c was within normal range. She is seen can dryer in the past. She follows up with farm appraiser and kidney function is stable. Foot care discussed with the patient. Hypertension/hyper lipidemia. Blood pressure well controlled and last lipid panel was within reasonable limits Obstructive sleep apnea. Continue on CPAP machine and no daytime sleepiness. Moderate persistent asthma. She stable when she follows up with die repair Anxiety/depression . Stable on current regimen. Considering her neuropathy she may be a good candidate for duloxetine which can be added to her regimen and she will check with her psychiatrist. Chronic kidney disease. She is stable and she follows up with farm appraiser to avoid NSAIDs. Right lower extremity swelling. [...] afternoon for breakthrough pains. She follows with [facility] Dr. Iraheta. Chronic kidney disease stage 3. -She does not appear to be in volume overload. Advised appropriate hydration. Avoid NSAIDs. She sees Dr. Lakhani. Asthma. -She uses her inhalers as needed. Follows with Dr. [facility]ley[facility] Generalized anxiety disorder. -Mood is stable on Lorazepam 3 times a day. She has a psychiatrist and a therapist. GERD/gastroparesis /dysphagia - Currently she is on omperazole 20m and Reglan 10 MG twice a day. I have increased omperazole to 40mg and advised patient to follow-up with her GI at [place]. She has an appt in May. MUSA: [...] but was available upon request 07/31/2024 Chronic kidney disease, stage 3 unspecified [...] and hemoglobin A1c and follows up with [facility] endocrinology. She is seen can dryer in the past. She follows up with farm appraiser and kidney function is stable. Foot care discussed with the patient. Hypertension/hyper lipidemia. Blood pressure well controlled and last lipid panel was within reasonable limits Obstructive sleep apnea. Continue on CPAP machine and no daytime sleepiness. Moderate persistent asthma. She stable when she follows up with die repair Anxiety/depression . Stable on current regimen. Considering her neuropathy she may be a good candidate for duloxetine which can be added to her regimen and she will check with her psychiatrist. Chronic kidney disease. She is stable and she follows up with farm appraiser to avoid NSAIDs. Right lower extremity swelling. It is nonpitting edema most likely lymphedema. She is on Eliquis and less likely to be a DVT and ultrasound lower extremity was negative. Vaginal candidiasis. She is given fluconazole and advised to control blood sugars 11/26/2024 Obstructive sleep apnea (adult) (pediatric) (ICD-10 - G47.33) Maribell is a 64-year-old lady with DM2, hypertension, hyperlipidemia, asthma, insomnia, anxiety, obstructive sleep apnea, peripheral vascular disease, DVT right lower extremity, obesity, chronic kidney disease stage IIIa and follows up with farm appraiser is here today for annual physical. Diabetes mellitus type 2 with diabetic neuropathy. Her last hemoglobin A1c was 7.1. She is stable on the above-mentioned regimen. She follows up with x ray consultant. She is seeing can dryer in the past 1 year. She takes good care of her right leg and foot. She is on appropriate medications. Hypertension/hyper lipidemia. Blood pressure well controlled on current regimen and she is on statins and THADDEUS. Generalized anxiety disorder. She follows up with psychiatry and she is stable on the above-mentioned regimen. Mild persistent asthma. Stable on current regimen. Chronic kidney disease stage III. Stable and does not appear to be in volume overload. Avoid NSAIDs. Obstructive sleep apnea. She uses CPAP machine on a regular basis and no daytime sleepiness. Multiple joint osteoarthritis. We tried Topamax which she could not tolerate. Other option is Cymbalta which she will discuss with her psychiatrist and will let us know. Obesity. She is gaining weight. Advised physical activity, portion control and goal is to lose roughly 6 pounds a month. She is a good candidate for GLP-1. Advised to talk to her x ray consultant to start the medication. EKG is normal sinus rhythm at 88 bpm with no acute ST or T wave changes., no bundle branch blocks, normal intervals She is up to date on age specific screening. She is full code and her is her healthcare proxy 11/26/2024 Chronic embolism and thrombosis of unspecified deep veins of unspecified lower extremity (ICD-10 - I82.509) Maribell is a 64-year-old lady with DM2, hypertension, hyperlipidemia, asthma, insomnia, anxiety, obstructive sleep apnea, peripheral vascular disease, DVT right lower extremity, obesity, chronic kidney disease stage IIIa and follows up with farm appraiser is here today for annual physical. Diabetes mellitus type 2 with diabetic neuropathy. Her last hemoglobin A1c was 7.1. She is stable on the above-mentioned regimen. She follows up with x ray consultant. She is seeing can dryer in the past 1 year. She takes good care of her right leg and foot. She is on appropriate medications. Hypertension/hyper lipidemia. Blood pressure well controlled on current regimen and she is on statins and THADDEUS. Generalized anxiety disorder. She follows up with psychiatry and she is stable on the above-mentioned regimen. Mild persistent asthma. Stable on current regimen. Chronic kidney disease stage III. Stable and does not appear to be in volume overload. Avoid NSAIDs. Obstructive sleep apnea. She uses CPAP machine on a regular basis and no daytime sleepiness. Multiple joint osteoarthritis. We tried Topamax which she could not tolerate. Other option is Cymbalta which she will discuss with her psychiatrist and will let us know. Obesity. She is gaining weight. Advised physical activity, portion control and goal is to lose roughly 6 pounds a month. She is a good candidate for GLP-1. Advised to talk to her x ray consultant to start the medication. EKG is normal sinus rhythm at 88 bpm with no acute ST or T wave changes., no bundle branch blocks, normal intervals She is up to date on age specific screening. She is full code and her is her healthcare proxy 04/18/2024 Gastroesophageal reflux disease, unspecified whether esophagitis [...] afternoon for breakthrough pains. She follows with [facility] Dr. Iraheta. Chronic kidney disease stage 3. -She does not appear to be in volume overload. Advised appropriate hydration. Avoid NSAIDs. She sees Dr. Lakhani. Asthma. -She uses her inhalers as needed. Follows with Dr. [facility] Generalized anxiety disorder. -Mood is stable on Lorazepam 3 times a day. She has a psychiatrist and a therapist. GERD/gastroparesis /dysphagia - Currently she is on omperazole 20m and Reglan 10 MG twice a day. I have increased omperazole to 40mg and advised patient to follow-up with her GI at [place]. She has an appt in May. MUSA: [...] afternoon for breakthrough pains. She follows with [facility] Dr. Iraheta. Chronic kidney disease stage 3. -She does not appear to be in volume overload. Advised appropriate hydration. Avoid NSAIDs. She sees Dr. Lakhani. Asthma. -She uses her inhalers as needed. Follows with Dr. [facility]ley[facility] Generalized anxiety disorder. -Mood is stable on Lorazepam 3 times a day. She has a psychiatrist and a therapist. GERD/gastroparesis /dysphagia - Currently she is on omperazole 20m and Reglan 10 MG twice a day. I have increased omperazole to 40mg and advised patient to follow-up with her GI at [place]. She has an appt in May. MUSA: [...] afternoon for breakthrough pains. She follows with [facility] Dr. Iraheta. Chronic kidney disease stage 3. -She does not appear to be in volume overload. Advised appropriate hydration. Avoid NSAIDs. She sees Dr. Lakhani. Asthma. -She uses her inhalers as needed. Follows with Dr. [facility]ley[facility] Generalized anxiety disorder. -Mood is stable on Lorazepam 3 times a day. She has a psychiatrist and a therapist. GERD/gastroparesis /dysphagia - Currently she is on omperazole 20m and Reglan 10 MG twice a day. I have increased omperazole to 40mg and advised patient to follow-up with her GI at [place]. She has an appt in May. MUSA: [...] afternoon for breakthrough pains. She follows with [facility] Dr. Iraheta. Chronic kidney disease stage 3. -She does not appear to be in volume overload. Advised appropriate hydration. Avoid NSAIDs. She sees Dr. Lakhani. Asthma. -She uses her inhalers as needed. Follows with Dr. [facility]ley[facility] Generalized anxiety disorder. -Mood is stable on Lorazepam 3 times a day. She has a psychiatrist and a therapist. GERD/gastroparesis /dysphagia - Currently she is on omperazole 20m and Reglan 10 MG twice a day. I have increased omperazole to 40mg and advised patient to follow-up with her GI at [place]. She has an appt in May. MUSA: [...] afternoon for breakthrough pains. She follows with [facility] Dr. Iraheta. Chronic kidney disease stage 3. -She does not appear to be in volume overload. Advised appropriate hydration. Avoid NSAIDs. She sees Dr. Lakhani. Asthma. -She uses her inhalers as needed. Follows with Dr. [facility]ley[facility] Generalized anxiety disorder. -Mood is stable on Lorazepam 3 times a day. She has a psychiatrist and a therapist. GERD/gastroparesis /dysphagia - Currently she is on omperazole 20m and Reglan 10 MG twice a day. I have increased omperazole to 40mg and advised patient to follow-up with her GI at [place]. She has an appt in May. MUSA: [...] afternoon for breakthrough pains. She follows with [facility] Dr. Iraheta. Chronic kidney disease stage 3. -She does not appear to be in volume overload. Advised appropriate hydration. Avoid NSAIDs. She sees Dr. Lakhani. Asthma. -She uses her inhalers as needed. Follows with Dr. [facility] Generalized anxiety disorder. -Mood is stable on Lorazepam 3 times a day. She has a psychiatrist and a therapist. GERD/gastroparesis /dysphagia - Currently she is on omperazole 20m and Reglan 10 MG twice a day. I have increased omperazole to 40mg and advised patient to follow-up with her GI at [place]. She has an appt in May. MUSA: [...] Next Appt Details Provider Name:ELLA MICHAEL , 05/29/2025 10:30:00 AM, [address] [place] [address], [id number], Insurance Providers Payer Name Payer Address Payer Phone Subscriber Number Group Number Insured Name Patient Relationship to Insured Coverage Start Date Coverage End Date [facility] [address] [place] [address] [id number] Maribell Sweeney Self - patient is the insured Medical (General) History Medical History History ICD Code hypertension, benign hyperlipidemia IDDM T 2, [facility] end[facility] Urinary incontinence and she sees Dr. England at [place] Left shoulder pain and she sees Dr. Alida villa and she is also seen Dr. Diaz Asthma and she sees Pul at [facility] Generalized anxiety disorder and she is seen by a psychiatrist and [facility] Pain management and has seen Dr. Montiel at [facility] in past Peripheral arterial disease and status post amputation below knee joint currently on Coumadin and goes to [facility]madin clinic Lumbar radiculopathy on oxycodone 30 mg 3 times a day DVT leg LE sleep apnea see Pul at [facility] Left leg amputation below knee joint Chronic kidney disease stage 3, Dr. Janis smalls Personal history of COVID-19 GI- [facility] Surgical History Surgery Date(Month/Year) rotator cuff tear repair September 2017 wrist surgery below the knee amputation 07 left side for Blood clots 2/2 to OCP and pt was smoking rt toes amputation 2004 right wrist synovial cyst resection, Dr. Henriquez 2021 right carpal tunnel decompression, Dr. Flores hadley 2021 Hospitalization History Reason Date(Month/Year)
--- OUTSIDE RECORDS SUMMARY | 2024-12-05 14:02 | XMS_ITS | Clinical Summary ---
Author Organization [facility] Address [address] [place] [phone] Phone Care Team Providers Care Shoder Filler Name Role Phone Samuel Hilario MD Primary Care Provider [phone] Allergies Active Allergy Reactions Criticality Noted Date [...] DAY NEEDED 1 Active Comfort EZ Pen [place] 32G X 4 MM [facility] 2 Active Easy Comfort Lancets [facility] 2 Active gemfibrozil (LOPID) 600 [...] incontinence 03/29/2014 Overview (09/06/2022): Darline. Changed to [place] Panic attack 03/29/2014 Overview (09/06/2022): Sees psych [...] Orders Only [facility] [address] [phone] Racheal Wood ARNP [address] [phone] Stage 3a chronic kidney disease (HCC); Hypertension 02/04/2025 11:15 AM EDT Office Visit [facility] [address] [phone] Rcaheal Wood ARNP [address] [phone] Health Maintenance Due Date Last Done Comments [...] FUNCTION PANEL Routine 11/07/2024 9:01 AM EDT HEMOGLOBIN A1C Routine 06/17/2021 4:28 PM EST Type 2 diabetes mellitus with diabetic chronic kidney disease (HCC) from Last 3 Months or Most Recently Relevant to Health Maintenance Results * (ABNORMAL) Protein, Total, Random Urine w/Creatinine (Protein/Creat Ratio) (11/07/2024 9:01 AM EDT) Creatinine, Ur 76.5 Not Estab. mg/dL [facility] [place] Protein, Ur 29.8 Not Estab. mg/dL [facility] [place] Urine Protein/Creati nine Ratio 390(H) 0 - 200 mg/g creat [facility] [place] [facility] 11/07/2024 9:01 AM EDT 11/07/2024 [facility] LAB URINE ORDERABLES Final Result [facility] [place] [facility] [address] [place] [address] * (ABNORMAL) Urine Albumin / Creatinine Ratio (11/07/2024 9:01 AM EDT) Albumin, Urine 35.1 Not Estab. ug/mL [facility] Albumin/Creatin ine Ratio 46(H) 0 - 29 mg/g creat [facility] Comment: Normal: 0 - 29 Moderately increased: 30 - 300 Severely increased: >300 11/07/2024 9:01 AM EDT 11/07/2024 [facility] LAB URINE ORDERABLES Final Result Performing Organization Address City/[facility]/ZIP Co de Phone Number [facility] [place] [address] [place] [address] * CBC (11/07/2024 9:01 AM EDT) WBC 9.5 3.4 - 10.8 x10E3/uL [facility] [place] RBC 4.38 3.77 - 5.28 x10E6/uL [facility] Hemoglobin 13.3 11.1 - 15.9 g/dL [facility] [place] [facility] Hematocrit 40.9 34.0 - 46.6 % [facility] MCV 93 79 - 97 fL [facility] [place] MCH 30.4 26.6 - 33.0 pg [facility] [place] MCHC 32.5 31.5 - 35.7 g/dL [facility] [place] RDW 12.6 11.7 - 15.4 % [facility] Platelets 244 150 - 450 x10E3/uL [facility] [place] 11/07/2024 9:01 AM EDT 11/07/2024 Racheal Wood [facility] LAB BLOOD ORDERABLES Final Result [facility] [place] [address] [place] [address] * PTH, Intact (11/07/2024 9:01 AM EDT) PTH 35 15 - 65 pg/mL [facility] [place] 11/07/2024 9:01 AM EDT 11/07/2024 Racheal Wood [facility] LAB BLOOD ORDERABLES Final Result Performing Organization Address City/[facility]/ZIP Co de Phone Number [facility] [place] [facility] [address] [place] [address] * Magnesium (11/07/2024 9:01 AM EDT) Magnesium 1.7 1.6 - 2.3 mg/dL [facility] [place] 11/07/2024 9:01 AM EDT 11/07/2024 Racheal Wood [facility] LAB BLOOD ORDERABLES Final Result [facility] [place] [facility] [address] [place] [address] * (ABNORMAL) Renal Function Panel (11/07/2024 9:01 AM EDT) Glucose 196(H) 70 - 99 mg/dL [facility] BUN 20 8 - 27 mg/dL [facility] Creatinine 1.17(H) 0.57 - 1.00 mg/dL [facility] eGFR CKD-EPI CR 2020 53(L) >59 mL/min/1.7 3 [facility] BUN/Creatinine Ratio 17 12 - 28 [facility] Sodium 138 134 - 144 mmol/L [facility] Potassium 4.5 3.5 - 5.2 mmol/L [facility] Chloride 102 96 - 106 mmol/L [facility] Bicarbonate (CO2) 20 20 - 29 mmol/L [facility] Calcium 9.7 8.7 - 10.3 mg/dL [facility] Albumin 4.0 3.9 - 4.9 g/dL [facility] Phosphorus 3.7 3.0 - 4.3 mg/dL [facility] 11/07/2024 9:01 AM EDT 11/07/2024 Racheal Wood [facility] LAB BLOOD ORDERABLES Final Result [facility] [place] [address] [place] [address] * (ABNORMAL) Hemoglobin A1c (06/17/2021 4:28 PM EST) Hemoglobin A1C 9.2(H) (4.0-5.6) % [facility] Comment: MONITORING: In known diabetic patients, hemoglobin A1c targets should be discussed with health care provider. DIAGNOSTIC USE: The [place] Diabetes [employer] (ADA) and the World Health [...] Supplement 1 Testing performed or reported by [facility] Reference [employer], a Service of [facility], [address] [place] [id number] Bertin Bethea MD, Pediatric Licensed Practical Nurse [facility]# [id number] Blood specimen (specimen) Venous blood / Unknown 06/17/2021 4:28 PM EST 06/17/2021 4:29 PM EST us Feroz Lakhani MD LAB BLOOD ORDERABLES Final Re sult [facility] from Last 3 Months or Most Recently Relevant to Health Maintenance Insurance [facility] Medicaid Care Teams Shoder Filler Relationship Specialty Start Date End Date Samuel Hilario MD [address] [place] [address] PCP - General Internal Medicine 05/26/21
--- OUTSIDE RECORDS SUMMARY | 2024-12-05 14:02 | XMS_ITS | Clinical Summary ---
Author Organization [address] [facility] Address [address] [place] [address] Phone Care Team Providers Care Vending Supervisor Name Role Phone Samuel Hilario MD Primary Care Provider [phone] Allergies Active Allergy Reactions Criticality Noted Date [...] that time. All questions answered. Diabetic gastroparesis ([facility] V24, [facility] V28 ) 08/25/2022 Prurigo nodularis 11/13/2016 Overview [...] 2 diabetes mellitus wit h neurological manifestations ([facility] V24, [facility] V28) 03/29/2014 Overview (03/27/2024): Left stump neuropathy Intolerant metformin Refused increase med. See Tel. 02/02/16 Urinary incontinence 03/29/2014 Overview (03/27/2024): Darline. Changed to [place] Panic attacks 03/29/2014 Overview (03/27/2024): Sees psych Morbid obesity ([facility] V24, [facility] V28) 2013 Overview (03/27/2024): BMI 43.0 on 02/07/14 per transfer records MUSA (obstructive sleep apnea) 03/18/2014 Lumbosacral spondylosis without myelopathy 03/18 Eczema 03/18/2014 History of leg amputation ([facility] V24, [facility] V28) 03/18/2014 Overview (03/27/2024): BKA 08/10/11 left Lumbago 04/16/2009 S/P BKA (below knee amputation) ([facility] V24, S/[facility] V28) 12/30/2008 Overview (03/27/2024): left Sleep apnea 09/01/2005 Overview (03/27/2024): uses CPAP IMO update 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 ([facility] V24, [facility] V28) 08/19/2005 Overview (03/27/2024): from birthcontrol.had amputation on 10/11.on coumadin since October previous pcp dr ANA ignacio u/s negative in [place] 08/16/05 plastic sugeon for wound care s/p amputation.sees dr loyd for infection suresh gray is her plastic surgeon just finished reconstruciton Heartburn 08/19/2005 Phantom limb syndrome ([facility] [place], [facility] V28) 08/19/2005 Overview (03/27/2024): IMO update Asthma 08/19/2005 Depressive disorder 08/19/2005 Overview (03/27/2024): [facility]they give wellbutrin,remerenon,seroquel Encounters Date Type Department Care Team Description 09/19/2024 2:00 PM EDT Office Visit Orthopedic Surgery - [address] [phone] Nolberto Cruz, DPM Acquired hammer toe of right foot (Primary Dx); Dermatophytosis of nail; Type II diabetes mellitus with peripheral circulatory disorder ([facility] [place]24, [facility] V28); Diabetic mononeuropathy simplex ([facility] [place]24, [facility] V28) from Last 3 Months Immunizations Name Administration Dates Next Due Influenza Quadravalent, MDCK , 0.5ml, with preservative (Flucelvax) 6mo and older 02/02/2017 Moderna SARS-CoV-2 COVID-19, mRNA, LNP-S, preservative free 09/19/2020,08/21/2020 Pneumococcal polysaccharide 23 valent (Pneumovax 23) 2yo and older 04/29/2014 Tdap Tetanus diptheria acell ular pertussis (Boostrix; Adacel) 7yo and older 04/17/2015 Surgical History Surgery Date Site/Laterality Comments ENDOMETRIAL ABLATION 2006 PROCEDURE: PA ENDOMETRIAL ABLTJ THERMAL W/O HYSTEROSCOPIC GUID; COMMENT: Whit OTHER SURGICAL HISTORY 2011 Left PROCEDURE: HISTORICAL BELOW KNEE AMP; COMMENT: vascular problems COLONOSCOPY 08/20/2008 PROCEDURE: HISTORICAL COLONOSCOPY; COMMENT: normal TUBAL LIGATION PROCEDURE: HISTORICAL TUBAL LIGATION CARPAL TUNNEL RELEASE 2021 PROCEDURE: PA NEUROPLASTY &/TRANSPOS MEDIAN NRV CARPAL TUNNE Medical History Medical History Date Comments 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 ([facility] V24, [facility] V28) DX:Arterial embolism and thr ombosis of lower extremity (HCC) Left hip pain DX:Left hip pain Amenorrhea DX:Amenorrhea Chronic abdominal pain DX:Chroni c abdominal pain Asthma DX:Asthma Obesity DX:Obesity Amputation of leg ([facility] V 24, [facility] V28) DX:Amputation of leg ([facility]) Incontinence DX:Incontinence Otitis media DX:Otitis media Pelvic pain DX:Pelvic pain Left shoulder pain DX:Left shoul krystle pain Sleep apnea DX:Sleep apnea; COMMENT: CPAP Historical Medical DX 2004 DX:HTN; CO MMENT: Metropolol and Buspar Rotator cuff tear 05/18/2014 DX:Rotator cuf f tear; COMMENT: Chronic anterior/superior tear, managed medically Carpal tunnel syndrome 05/18/2014 DX:Carpal tunnel syndrome; COMMENT: left History of leg amputation ([facility] [place]/[facility] V24, [facility] V28) 03/18/2014 DX:History of leg amputation ([facility]); COMMENT: BKA 08/10/11 (leg not specified) History of pulmonary embolism 03/18/2014 DX :History of pulmonary embolism; COMMENT: 2011 MUSA (obstructive sleep apnea) 03/18/2014 DX :MUSA (obstructive sleep apnea) Impaired fasting glucose 03/18/2014 DX:Impa ired fasting glucose Lumbosacral spondylosis with out myelopathy 03/18/2014 DX:Lumbosacral spondylosis w ithout myelopathy Eczema 03/18/2014 DX:Eczema Morbid obesity ([facility] V24, [facility] V28) 03/18/2014 DX:Morbid obesity (HCC); COM MENT: BMI 43.0 on 02/07/14 Hypertension DX:Hypertension Type 2 diabetes mellitus wit hout complications ([facility] V24, [facility] V28) DX:Type 2 diabetes mellitus without complications (HCC) Diabetic gastroparesis ([facility]/ [facility] V24, [facility] V28) 08/25/2022 DX:Diabetic gastroparesis (H CC) Family [...] PM EDT Office Visit Orthopedic Surgery - [place] [address] [phone] Nolberto Cruz, DPM [address] [address] Health Maintenance Due Date Last Done Comments Diabetes: Annual GFR (Glomerular Filtration Rate) 1962 Diabetes: Annual Foot Exam 1972 Diabetes: Annual Retina Eye Exam 1972 Pneumococcal Vaccine: 50+ Years (2 of 2 - PCV) 04/29/2015 04/29/2014 Cholesterol Screening (Lipid Panel) 04/17/2022 02/25/2017 Colorectal Cancer Screening: Colonoscopy 04/17/2022 HIV Screening 04/17/2022 Social Influencers of Health Screening 04/17/2022 Diabetes: Annual Urine Albumin-Creatinine Ratio (uACR) 04/24/2022 02/25/2017 Diabetes: Blood Sugar Control Test (HGBA1C) 04/24/2022 06/17/2021, 02/25/2017 Hypertension/CHF/CAD Annual BMP Blood Test 04/24/2022 Depression Screening 05/09/2024 08/19/2005 Influenza Vaccine (#1) 2025 , 04/15/2022, 05/10/2021, [...] year. [facility]amm[facility] [address], [address] -------- FINAL REPORT -------- Dictated By: Sd Restrepo Dictated Date: 08/20/2024 16:32 ET Assigned Physician: Sd Restrepo Reviewed and Electronically Signed By: Sd Restrepo Signed Date: 08/20/2024 16:39 ET Workstation ID: [id number] Transcribed By: Self Edit Transcribed Date: 08/20/2024 16:32 ET Narrative 08/20/2024 4:39 PM EDT EXAM: SCREENING MAMMOGRAPHY, BILATERAL HISTORY: SCREENING. Paternal aunt diagnosed with breast cancer age 39 COMPARISON: 10/21/20 TECHNIQUE: Synthesized CC and MLO projections of each breast. Tomosynthesis of each breast in the CC and MLO projections. ADDITIONAL IMAGING: None Computer-aided detection was employed with the [employer] AI 3-D. TISSUE DENSITY: The breasts are [...] None Computer-aided detection was employed with the [employer] ProFound AI 3-D. TISSUE DENSITY: The breasts [...] year. Mammography location: [facility] at [address], [address] -------- FINAL REPORT -------- Dictated By: Sd Restrepo Dictated Date: 08/20/2024 16:32 ET Assigned Physician: Sd Restrepo Reviewed and Electronically Signed By: Sd Restrepo Signed Date: 08/20/2024 16:39 ET Workstation ID: [id number] Transcribed By: Self Edit Transcribed Date: 08/20/2024 16:32 ET Betty Matt CNM IMG BI PROCEDURES Final Resul t * HPV with reflex genotype (08/07/2024 2:32 PM EDT) [facility] HPV Negative Negative LAB MICROBIOLOGY METHOD 08/08/2024 1:09 PM EDT [facility] Brushing/Spatula Cervix uteri structure / Unknown 08/07/2024 2:32 PM EDT 08/08/2024 6:17 AM EDT Betty Matt CNM LAB MOLECULAR DIAGNOSTICS ORD ERABLES Final Result [facility] [address] [place] [address], * HM Urine Albumin Creatinine Ratio (02/25/2017) [facility] Urine Albumin Creatinine Ratio abstracted Result [facility] Historical Provider HEALTH MAINTENANCE Final Result * (ABNORMAL) Hemoglobin A1c (02/25/2017) [facility] Hemoglobin A1C 7.4(A) 4.0 - 6.0 % Blood Venous blood specimen / Unknown Result [facility] Historical Provider LAB BLOOD ORDERABLES Jessy l Result * (ABNORMAL) Lipid panel (02/25/2017) [facility] LDL/HDL Ratio 4 0 - 4 Triglycerides 280(A) 0 - 150 mg/dL Cholesterol 110 0 - 200 mg/dL HDL 29(A) >=40 mg/dL LDL Cholesterol 25 0 - 100 mg/dL Blood Venous blood specimen / Unknown Historical Provider LAB BLOOD ORDERABLES Jessy l Result * Hepatitis C Screening (01/02/2016) Hepatitis C Screening abstracted Historical Provider HEALTH MAINTENANCE Final Result * Depression Screening (08/19/2005) Depression Screening abstracted Historical Provider HEALTH MAINTENANCE Final Result from Last 3 Months or Most Recently Relevant to Health Maintenance Insurance [facility] [employer] Care Teams Vending Supervisor Relationship Specialty Start Date End Date Samuel Hilario MD [address] [place] [phone] PCP - General Internal Medicine 03/19/20
--- NOTE | 2024-12-05 14:56 | MHC.OFFVIS ---
Intake Visit Reasons: OAB/Botox f/u Intake Note: Patient is present for OAB/Botox follow up Urology Medication:Gemtesa Blood Thinner:Apixaban Allergy to Antibiotic:none PVR:69ml Allergies octopus Allergy (Severe, Verified 12/05/24 15:02) Anaphylaxis oxybutynin Allergy (Severe, Verified 12/05/24 15:02) Difficulty Swallowing tolterodine Allergy (Severe, Verified 12/05/24 15:02) Difficulty Swallowing aspirin Allergy (Unknown, Verified 12/05/24 15:02) anaphylaxis citalopram Allergy (Unknown, Verified 12/05/24 15:02) Unknown empagliflozin (From Jardiance) Allergy (Unknown, Verified 12/05/24 15:02) Unknown Fish Containing Products Allergy (Unknown, Verified 12/05/24 15:02) Unknown gabapentin Allergy (Unknown, Verified 12/05/24 15:02) hives hydrocodone (Vicodin) Allergy (Unknown, Verified 12/05/24 15:02) hives naproxen (Naprosyn) Allergy (Unknown, Verified 12/05/24 15:02) anaphylaxis oxycodone (Percocet) Allergy (Unknown, Verified 12/05/24 15:02) hives pregabalin (From Lyrica) Allergy (Unknown, Verified 12/05/24 15:02) Unknown sertraline Allergy (Unknown, Verified 12/05/24 15:02) Unknown shellfish derived Allergy (Unknown, Verified 12/05/24 15:02) Unknown peanut Allergy (Verified 12/05/24 15:02) Anaphylaxis solifenacin Adverse Reaction (Verified 12/05/24 15:02) phlegm Vicodin Allergy (Unknown, Uncoded 09/28/24 09:23) hives HPI Comments Details: 12/05/24-in where 07/30/24--Maribell is a 63-year-old female presenting with overactive bladder. She had urodynamics performed on May 25, 2024, findings c/w detrusor overactivity, neurogenic bladder. Despite being prescribed Gemtesa, she is currently experiencing ongoing urinary incontinence, requiring the use of 8-9 pads daily. Also using [id number]-tum-mudhgya bladder control agents have also been ineffective. The frequency and impact of symptoms are significant, affecting her daily routine and quality of life. The patient is on Eliquis. I have discussed I do not need her to stop the eliquis prior to the botox procedure. I have discussed risks to include hematuria, UTI, urinary retention, need to repeat procedure for sustained efficacy. 05/25/24--Maribell is here for urodynamics. The patient has complaints of urinary incontinence. She has been on several anticholinergics without adequate improvement in urinary symptoms. Currently she is on Gemtesa 75 mg daily and takes OTC Azo-bladder. Interpretation: During the filling phase there was sensory urgency was noted, strong urge was noted at 169 mL with a small detrusor contraction; bladder capacity was less than average, the patient felt that she was at capacity at 182 mL and voided 190 mL. Findings consistent with neurogenic bladder, less than average functional bladder capacity. EMG- Appropriate changes in the waveforms were noted through out the study. Discussed with patient that urinary leakage can be related to pelvic floor muscles weakness and/or bladder spasms. Discussed findings. Treatment options discussed for OAB included anticholinergics/antimuscarinics, neuromodulation, bladder botox injection. The patient wants to avoid any procedures at this time. Will use combination PO anticholinergic Gemtesa with trospium. [facility] Medical History Amputated toe of right foot Ganglion cyst Gastroparesis COVID-19 HTN (hypertension) Diabetes mellitus Urinary incontinence UTI (urinary tract infection) Surgical History History of left below knee amputation S/P carpal tunnel release History of surgical removal of ganglion cyst S/P rotator cuff repair History of surgery Social History Are you a primary ambulatory care coordinator to a significant other at home: No Do you presently have visiting nurse or other home services: No Alcohol intake: never Patient Tobacco Use Status: Former Tobacco user Substance Use Type: Marijuana Current occupational status: disabled Current occupation: rt handed Results AMB Urinalysis, Automated UA Leukoctes 70 Hiral/uL Last Edit by Mackenzie Villa on 12/05/24 16:38 UA Nitrite Negative Last Edit by Mackenzie Villa on 12/05/24 16:38 UA Urobilinogen 0.2 mg/dL Last Edit by Mackenzie Villa on 12/05/24 16:38 UA Protein 15 mg/dL Last Edit by Mackenzie Villa on 12/05/24 16:38 UA pH 5.5 Last Edit by Mackenzie Villa on 12/05/24 16:38 UA Blood 10 Iron/uL Last Edit by Mackenzie Villa on 12/05/24 16:38 UA Specific [place] 1.015 Last Edit by Mackenzie Villa on 12/05/24 16:38 UA Ketone Negative Last Edit by Mackenzie Villa on 12/05/24 16:38 UA Bilirubin 0 mg/dL Last Edit by Mackenzie Villa on 12/05/24 16:38 UA Glucose 0 mg/dL Last Edit by Mackenzie Villa on 12/05/24 16:38 Assessment & Plan Assessment & Plan Orders: Orders AMB Urinalysis Automated Today Z13.9 - Encounter for screening, unspecified AMB Post Void Residual by ultrasound Today N31.8 - Other neuromuscular dysfunction of bladder, R32 - Unspecified urinary incontinence Coding
== END 2024-12-05 15:42 | disposition home or self-care (01) ==
LOC: HO.HUSH 13:28
PROVIDERS: PCP Hospitalist; Visit Provider Urology
DX: Z13.9 Encounter for screening, unspecified (principal)

== ENCOUNTER → 2024-12-05 13:27 | Outpatient (BNVA) | payer OTHER, SELFPAY | PROVIDERS: PCP Hospitalist; Visit Provider Urology | DX: R32 Unspecified urinary incontinence (principal) | CPT/HCPCS: 81003 ==

== ENCOUNTER 2024-12-06 18:22 | Outpatient (REF) | payer OTHER, SELFPAY | END 2024-12-06 18:23 | disposition home or self-care (01) | LOC: HO.MRI 18:22 | PROVIDERS: PCP Hospitalist; Visit Provider Nurse Practitioner Family | DX: Z13.89 Encounter for screening for other disorder (principal) ==

== ENCOUNTER → 2024-12-22 15:31 | Outpatient (BNV) | payer OTHER, SELFPAY | PROVIDERS: PCP Hospitalist; Visit Provider Radiology Diagnostic Radiology | DX: R51.9 Headache, unspecified (principal) | CPT/HCPCS: 70544; 70549 ==

== ENCOUNTER 2024-12-22 15:34 | Outpatient (REF) | payer OTHER, SELFPAY ==
--- NOTE | ~2024-12-22 | MR_ITS ---
EXAMINATION: MR ANGIOGRAPHY NECK WITHOUT AND WITH CONTRAST CLINICAL INFORMATION: Headache. COMPARISON: None available. TECHNIQUE: MRA of the neck was obtained using routine sequences without and with contrast. Intravenous contrast: Gadolinium based contrast 10.0 mL. The degree of stenosis determined by criteria similar to NASCET. No reported immediate complications. FINDINGS: Patient's motion artifact. Right CCA: Normal patency. No intimal flap. No focal stenosis. Right ICA: Normal patency. No focal stenosis. No intimal flap. Left CCA: Tortuosity proximal segment. Normal patency. No focal stenosis. No intimal flap. Left ICA: Normal patency. No focal stenosis. No intimal flap. V1/V2 segments: Tortuosity in the proximal segment. Normal patency. No focal stenosis. No intimal flap. Codominant vertebral arteries. MR/MR angio neck wo/w con IMPRESSION: No high degree stenosis or dissection. Electronically signed by: Sammy Rosa MD 12/24/2024 08:28 AM EDT
--- NOTE | ~2024-12-22 | MR_ITS ---
EXAMINATION: MR ANGIOGRAPHY BRAIN WITHOUT CONTRAST CLINICAL INFORMATION: Headache COMPARISON: None available. TECHNIQUE: 3-D [id number]. Maximum intensity projections [place]. FINDINGS: Patient's motion artifact. Anterior cerebral circulation: ICAs: No flow signal gap or abrupt cut off. MCA's: No flow signal gap or abrupt cut off. No gross vascular irregularity is at the bifurcation/trifurcation. ACAs: Absent/atretic right A1 segment. No flow signal gap or abrupt cut off. Anterior communicating artery flow signal is present. Ophthalmic arteries flow signal is present. Posterior, extending arteries flow signal is present and robust, bilaterally. Posterior cerebral circulation: V3/V4 segment: No flow signal gap or intimal flap. Codominant vertebral arteries. Posterior inferior cerebral arteries flow signal is present. Basilar artery flow signal demonstrates small caliber without flow signal gap or abrupt cut off. Anterior inferior cerebral arteries flow signal is present although small caliber. Superior cerebellar arteries flow signal is faint. autocad electrical designer: P1 segments are absent/atretic. T2/PD 3 segments flow signal is present bilaterally. MR/MR angio head wo con IMPRESSION: Aerated by patient's motion artifact. origin of the autocad electrical designer bilaterally. Hypoplastic/atrophic right A1 segment. No main cerebral artery occlusion or embolus. Electronically signed by: Sammy Rosa MD 12/24/2024 08:23 AM EDT
== END 2024-12-22 15:35 | disposition home or self-care (01) ==
LOC: HO.MRI 15:34
PROVIDERS: PCP Hospitalist; Visit Provider Nurse Practitioner Family
DX: G44.009 Cluster headache syndrome, unspecified, not intractable (principal)
CPT/HCPCS: 70544; 70549; A9585

== ENCOUNTER 2024-12-24 10:18 | Day surgery (SDC) | payer OTHER, SELFPAY ==
--- OUTSIDE RECORDS SUMMARY | 2024-11-19 14:28 | XMS_ITS | Clinical Summary ---
Author Organization [facility] Address [address] [place] [phone] Phone Care Team Providers Care Fur Pointer Name Role Phone Samuel Hilario MD Primary Care Provider [phone] Allergies Active Allergy Reactions Criticality Noted Date [...] DAY NEEDED 1 Active Comfort EZ Pen [place] 32G X 4 MM [facility] [place] 2 Active Easy Comfort Lancets [facility] [place] 2 Active gemfibrozil (LOPID) 600 MG tablet [...] incontinence 03/29/2014 Overview (09/06/2022): Darline. Changed to [place] Panic attack 03/29/2014 Overview (09/06/2022): Sees psych [...] [facility] [address] [phone] Racheal Wood ARNP [address] [phone] Stage 3a chronic kidney disease (HCC); Hypertension 02/04/2025 11:15 AM EDT Office Visit [facility] [address] [phone] Racheal Wood ARNP [address] [phone] Health Maintenance Due Date Last Done Comments [...] Procedure Name Priority Date/Time Associated Diagnosis Comments PTH, INTACT Routine 11/07/2024 9:01 AM EDT MAGNESIUM Routine 11/07/2024 9:01 AM EDT URINE ALBUMIN / CREATININE RATIO Routine 11/07/2024 9:01 AM EDT PROTEIN / CREATININE RATIO, URINE Routine 11/07/2024 9:01 AM EDT CBC Routine 11/07/2024 9:01 AM EDT RENAL FUNCTION PANEL Routine 11/07/2024 9:01 AM EDT URINE CULTURE Routine 08/24/2024 11:49 AM EDT [...] Relevant to Health Maintenance Results * (ABNORMAL) Protein, Total, Random Urine w/Creatinine (Protein/Creat Ratio) (11/07/2024 9:01 AM EDT) Only the most recent of2 resultswithin the time period is included. Creatinine, Ur 76.5 Not Estab. mg/dL [facility] Protein, Ur 29.8 Not Estab. mg/dL [facility] Urine Protein/Creati nine Ratio 390(H) 0 - 200 mg/g creat [facility] 11/07/2024 9:01 AM EDT 11/07/2024 us Racheal GAMINGP LAB URINE ORDERABLES Final Result [facility] [address] [place] [address] * (ABNORMAL) Urine Albumin / Creatinine Ratio (11/07/2024 9:01 AM EDT) Albumin, Urine 35.1 Not Estab. ug/mL [facility] Albumin/Creatin ine Ratio 46(H) 0 - 29 mg/g creat [facility] Comment: Normal: 0 - 29 Moderately increased: 30 - 300 Severely increased: >300 11/07/2024 9:01 AM EDT 11/07/2024 Racheal [facility] LAB URINE ORDERABLES Final Result Performing Organization Address City/[facility] Co de Phone Number [facility] [address] [place] [address] * CBC (11/07/2024 9:01 AM EDT) Only the most recent of2 resultswithin the time period is included. WBC 9.5 3.4 - 10.8 x10E3/uL [facility] RBC 4.38 3.77 - 5.28 x10E6/uL [facility] Hemoglobin 13.3 11.1 - 15.9 g/dL [facility] Hematocrit 40.9 34.0 - 46.6 % [facility] MCV 93 79 - 97 fL [facility] MCH 30.4 26.6 - 33.0 pg [facility] MCHC 32.5 31.5 - 35.7 g/dL [facility] RDW 12.6 11.7 - 15.4 % [facility] Platelets 244 150 - 450 x10E3/uL [facility] 11/07/2024 9:01 AM EDT 11/07/2024 Racheal [facility] LAB BLOOD ORDERABLES Final Result Performing Organization Address City/[facility]/ZIP Co de Phone Number [facility] [address] [place] [address] * PTH, Intact (11/07/2024 9:01 AM EDT) Only the most recent of2 resultswithin the time period is included. PTH 35 15 - 65 pg/mL [facility] 11/07/2024 9:01 AM EDT 11/07/2024 [facility] LAB BLOOD ORDERABLES Final Result Performing Organization Address City/[facility] Co de Phone Number [facility] [address] [place] [address] * Magnesium (11/07/2024 9:01 AM EDT) Magnesium 1.7 1.6 - 2.3 mg/dL [facility] 11/07/2024 9:01 AM EDT 11/07/2024 [facility] LAB BLOOD ORDERABLES Final Result Performing Organization Address City/[facility] Co de Phone Number [facility] [address] [place] [address] * (ABNORMAL) Renal Function Panel (11/07/2024 9:01 AM EDT) Only the most recent of2 resultswithin the time period is included. Glucose 196(H) 70 - 99 mg/dL [facility] BUN 20 8 - 27 mg/dL [facility] Creatinine 1.17(H) 0.57 - 1.00 mg/dL [facility] eGFR CKD-EPI CR 2020 53(L) >59 mL/min/1.7 3 [facility] BUN/Creatinine Ratio 17 12 - 28 [facility] Sodium 138 134 - 144 mmol/L [facility] Potassium 4.5 3.5 - 5.2 mmol/L [facility] Chloride 102 96 - 106 mmol/L [facility] Bicarbonate (CO2) 20 20 - 29 mmol/L [facility] Calcium 9.7 8.7 - 10.3 mg/dL [facility] Albumin 4.0 3.9 - 4.9 g/dL [facility] Phosphorus 3.7 3.0 - 4.3 mg/dL [facility] 11/07/2024 9:01 AM EDT 11/07/2024 [facility] LAB BLOOD ORDERABLES Final Result [facility] [address] [place] [phone] * Result (08/24/2024 11:49 AM EDT) Result Comment Ronnyrachaelhever Bolden Comment: Mixed urogenital kathleen 25,000-50,000 colony forming units per mL 08/24/2024 11:4 9 AM EDT 08/24/2024 [employer] LAB MICROBIOLOGY - GENERAL ORDERABLES Final Result [facility] J Carlos [place] [address], [address] [place] [address] * Microscopic Examination (08/24/2024 11:49 AM EDT) WBC, Urine 0-5 0 - 5 /hpf [facility] RBC, Urine None seen 0 - 2 /hpf [facility] Squamous Epithelial, Urine 0-10 0 - 10 /hpf [facility] Casts None seen None seen /lpf [facility] Bacteria, Urine None seen None seen/Few [facility] 08/24/2024 11:4 9 AM EDT 08/24/2024 Racheal Wood [facility] LAB MICROBIOLOGY - GENERAL ORDERABLES Final Result [facility] [address] [place] [address] * (ABNORMAL) Urinalysis with microscopic (08/24/2024 11:49 AM EDT) Specific [place], Urine 1.019 1.005 - 1.030 [facility] pH Urine 6.0 5.0 - 7.5 [facility] Color, Urine Yellow Yellow [facility] Appearance Urine Clear Clear [facility] [phone] WBC Esterase Urine 1+(A) Negative [facility] [phone] Protein, Ur Negative Negative/Tra ce [facility] Glucose, Ur Negative Negative [facility] Ketones, Urine Negative Negative [facility] Blood Urine Negative Negative [facility] [phone] Bilirubin Urine Negative Negative [facility] Urobilinogen Urine 0.2 0.2 - 1.0 mg/dL [facility] Nitrite, Urine Negative Negative [facility] Microscopic Examination See below: [facility] Comment:Microscopic was geri cated and was performed. Urine specimen (specimen) Urine specimen obtained by clean catch procedure / Unknown 08/24/2024 11:49 AM EDT 08/24/2024 Racheal [employer] [facility] URINE ORDERABLES Final Result [facility] [address] [place] [address] * Urine culture (08/24/2024 11:49 AM EDT) Culture Result, Urine Final report [facility] Urine specimen (specimen) Urine specimen obtained by clean catch procedure / Unknown 08/24/2024 11:49 AM EDT 08/24/2024 Comment: Racheal [employer] [facility] LAB URINE ORDERABLES Final Result [facility] [address], [address] [place] [address] * (ABNORMAL) Hemoglobin A1c (06/17/2021 4:28 PM EST) Hemoglobin A1C 9.2(H) (4.0-5.6) % [facility] Comment: MONITORING: In known diabetic patients, hemoglobin A1c targets should be discussed with health care provider. DIAGNOSTIC USE: The [place] [employer] (ADA) and the World Health [...] Supplement 1 Testing performed or reported by [facility], a Service of [facility], [address] [place] [address] Bertin Bethea MD, [facility]# [id number] Blood specimen (specimen) Venous blood / Unknown 06/17/2021 4:28 PM EST 06/17/2021 4:29 PM EST Feroz Lakhani MD LAB BLOOD ORDERABLES Final Re sult [facility] from Last 3 Months or Most Recently Relevant to Health Maintenance Insurance Medicaid Medicaid Care Teams Fur Pointer Relationship Specialty Start Date End Date Samuel Hilraio MD [address] [place] [address] PCP - General Internal Medicine 05/26/21
--- OUTSIDE RECORDS SUMMARY | 2024-11-19 14:28 | XMS_ITS | Clinical Summary ---
Author Organization [address] [facility] Address [address] [place] [address] Phone Care Team Providers Care Management Nurse Rn Name Role Phone Samuel Hilario MD Primary Care Provider [phone] Allergies Active Allergy Reactions Criticality Noted Date [...] that time. All questions answered. Diabetic gastroparesis ([facility] V24, [facility] V28 ) 08/25/2022 Prurigo nodularis [...] 2 diabetes mellitus wit h neurological manifestations ([facility] V24, [facility] V28) 03/29/2014 Overview (03/27/2024): Left stump neuropathy Intolerant metformin Refused increase med. See Tel. 02/02/16 Urinary incontinence 03/29/2014 Overview (03/27/2024): Darline. Changed to [place] Panic attacks 03/29/2014 Overview (03/27/2024): Sees psych Morbid obesity ([facility] V24, [facility] V28) 2013 Overview (03/27/2024): BMI 43.0 on 02/07/14 per transfer records MUSA (obstructive sleep apnea) 03/18/2014 Lumbosacral spondylosis without myelopathy 03/18 Eczema 03/18/2014 History of leg amputation ([facility] V24, [facility] V28) 03/18/2014 Overview (03/27/2024): BKA 08/10/11 left Lumbago 04/16/2009 S/P BKA (below knee amputation) (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 V24, [facility] V28) 08/19/2005 Overview (03/27/2024): from birthcontrol.had amputation on 10/11.on coumadin since October previous pcp dr ANA ignacio u/s negative in [place] 08/16/05 plastic sugeon for wound care s/p amputation.sees dr loyd for infection suresh gray is her plastic surgeon just finished reconstruciton Heartburn 08/19/2005 Phantom limb syndrome ([facility] V24, [facility] V28) 08/19/2005 Overview (03/27/2024): IMO update Asthma 08/19/2005 Depressive disorder 08/19/2005 Overview (03/27/2024): [facility] give wellbutrin,remerenon,seroquel Encounters Date Type Department Care Team Description 09/19/2024 2:00 PM EDT Office Visit Orthopedic Surgery - [address] [phone] Nolberto Cruz, DPM Acquired hammer toe of right foot (Primary Dx); Dermatophytosis of nail; Type II diabetes mellitus with peripheral circulatory disorder ([facility] V24, [facility] V28); Diabetic mononeuropathy simplex ([facility] V24, [facility] V28) 08/20/2024 9:05 AM EDT - 08/20/2024 11:59 PM EDT [facility] [address] [phone] Encounter for well woman exam with routine [...] Date Site/Laterality Comments ENDOMETRIAL ABLATION 2006 PROCEDURE: FL ENDOMETRIAL ABLTJ THERMAL W/O HYSTEROSCOPIC GUID; COMMENT: Whit OTHER SURGICAL HISTORY 2011 Left PROCEDURE: HISTORICAL BELOW KNEE AMP; COMMENT: vascular problems COLONOSCOPY 08/20/2008 PROCEDURE: HISTORICAL COLONOSCOPY; COMMENT: normal TUBAL LIGATION PROCEDURE: HISTORICAL TUBAL LIGATION CARPAL TUNNEL RELEASE 2021 PROCEDURE: FL NEUROPLASTY &/TRANSPOS MEDIAN NRV CARPAL TUNNE Medical History Medical History Date Comments 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 V24, CMS/HCC V28) DX:Arterial embolism and thr ombosis of lower extremity (HCC) Left hip pain DX:Left hip pain Amenorrhea DX:Amenorrhea Chronic abdominal pain DX:Chroni c abdominal pain Asthma DX:Asthma Obesity DX:Obesity Amputation of leg (CMS/HCC V 24, CMS/HCC V28) DX:Amputation of leg ([facility]) Incontinence DX:Incontinence Otitis media DX:Otitis media Pelvic pain DX:Pelvic pain Left shoulder pain DX:Left shoul krystle pain Sleep apnea DX:Sleep apnea; COMMENT: CPAP Historical Medical DX 2004 DX:HTN; CO MMENT: Metropolol and Buspar Rotator cuff tear 05/18/2014 DX:Rotator cuf f tear; COMMENT: Chronic anterior/superior tear, managed medically Carpal tunnel syndrome 05/18/2014 DX:Carpal tunnel syndrome; COMMENT: left History of leg amputation (C DE/HCC V24, CMS/HCC V28) 03/18/2014 DX:History of leg amputation ([facility]); COMMENT: BKA 08/10/11 (leg not specified) History of pulmonary embolism 03/18/2014 DX :History of pulmonary embolism; COMMENT: 2011 MUSA (obstructive sleep apnea) 03/18/2014 DX :MUSA (obstructive sleep apnea) Impaired fasting glucose 03/18/2014 DX:Impa ired fasting glucose Lumbosacral spondylosis with out myelopathy 03/18/2014 DX:Lumbosacral spondylosis w ithout myelopathy Eczema 03/18/2014 DX:Eczema Morbid obesity (CMS/HCC V24, CMS/HCC V28) 03/18/2014 DX:Morbid obesity ([facility]); COM MENT: BMI 43.0 on 02/07/14 Hypertension DX:Hypertension Type 2 diabetes mellitus wit hout complications ([facility] V24, [facility] V28) DX:Type 2 diabetes mellitus without complications (HCC) Diabetic gastroparesis ([facility] V24, [facility] V28) 08/25/2022 DX:Diabetic gastroparesis (H CC) Family [...] PM EDT Office Visit Orthopedic Surgery - [place] [address] [phone] Nolberto Cruz, DPM 175 [facility] [address] [place] [address] Health Maintenance Due Date Last Done Comments [...] exam Screening for malignant neoplasm of cervix URINE ALBUMIN CREATININE RATIO Routine 02/25/2017 HEMOGLOBIN [...] year. [facility]amm[facility] location[facility] [address], [address] -------- FINAL REPORT -------- Dictated By: Sd Restrepo Dictated Date: 08/20/2024 16:32 ET Assigned Physician: Sd Restrepo Reviewed and Electronically Signed By: Sd Restrepo Signed Date: 08/20/2024 16:39 ET Workstation ID: [id number] Transcribed By: Self Edit Transcribed Date: 08/20/2024 16:32 ET Narrative 08/20/2024 4:39 PM EDT EXAM: SCREENING MAMMOGRAPHY, BILATERAL HISTORY: SCREENING. Paternal aunt diagnosed with breast cancer age 39 COMPARISON: 10/21/20 TECHNIQUE: Synthesized CC and MLO projections of each breast. Tomosynthesis of each breast in the CC and MLO projections. ADDITIONAL IMAGING: None Computer-aided detection was employed with the Untangle AI 3-D. TISSUE DENSITY: The breasts are [...] None Computer-aided detection was employed with the [employer] AI 3-D. TISSUE DENSITY: The breasts are [...] year. [facility]ammography location: [facility] [address] [place], [address] -------- FINAL REPORT -------- Dictated By: Sd Restrepo Dictated Date: 08/20/2024 16:32 ET Assigned Physician: Sd Restrepo Reviewed and Electronically Signed By: Sd Restrepo Signed Date: 08/20/2024 16:39 ET Workstation ID: [id number] Transcribed By: Self Edit Transcribed Date: 08/20/2024 16:32 ET Betty Matt CNM IMG BI PROCEDURES Final Resul t * HPV with reflex genotype (08/07/2024 2:32 PM EDT) Pathologist [facility] HPV Negative Negative LAB MICROBIOLOGY METHOD 08/08/2024 1:09 PM EDT [facility] Brushing/Spatula Cervix uteri structure / Unknown 08/07/2024 2:32 PM EDT 08/08/2024 6:17 AM EDT Betty Matt CNM LAB MOLECULAR DIAGNOSTICS ORD ERABLES Final Result [facility] [address] [place] [address], [place] [phone] * Urine Albumin Creatinine Ratio (02/25/2017) [facility] Urine Albumin Creatinine Ratio abstracted Historical Provider HEALTH MAINTENANCE Final Result * (ABNORMAL) Hemoglobin A1c (02/25/2017) Pathologist [facility] Hemoglobin A1C 7.4(A) 4.0 - 6.0 % Blood Venous blood specimen / Unknown Historical Provider LAB BLOOD ORDERABLES Jessy l Result * (ABNORMAL) Lipid panel (02/25/2017) Pathologist [facility] LDL/HDL Ratio 4 0 - 4 Triglycerides 280(A) 0 - 150 mg/dL Cholesterol 110 0 - 200 mg/dL HDL 29(A) >=40 mg/dL LDL Cholesterol 25 0 - 100 mg/dL Blood Venous blood specimen / Unknown [facility] Provider LAB BLOOD ORDERABLES Jessy l Result * Hepatitis C Screening (01/02/2016) Pathologist [facility] Hepatitis C Screening abstracted [facility] Provider HEALTH MAINTENANCE Final Result * Depression Screening (08/19/2005) Pathologist [facility] Depression Screening abstracted [facility] Provider HEALTH MAINTENANCE Final Result from Last 3 Months or Most Recently Relevant to Health Maintenance Insurance [facility] [employer] Care Teams Management Nurse Rn Relationship Specialty Start Date End Date Samuel Hilario MD [address] [place] [place] [address] PCP - General Internal Medicine 03/19/20
--- OUTSIDE RECORDS SUMMARY | 2024-11-19 14:28 | XMS_ITS | Data Portability ---
Author Organization [place] - [facility], Allergy Address [address] [address] Care Team Providers Care Charter Coordinator Name Role Phone ELLA MICHAEL Primary [...] Details Last Modified Time Details Appointments [facility] 15 2024 02:15P Moncho NELSON MD Not available Not available Not available Lab None recorded . Referral None recorded . Procedures None recorded . Surgeries None recorded . Imaging MRI, brain, w/wo contrast - prefers [facility] eld 2023 024 david [facility] ([facility]), [address], [place], [address], 01/03/2024 14:20:34 Medication Orders clotrima zole-bet amethaso ne 1 %-0.05 % topical cream 2023 024 [facility] [place], [place] - [phone], [address] [facility], [place], [address], 02/29/2024 15:08:30 Patient TargetsNo targets recorded. Patient InstructionsNo instructions recorded. Reason for Referral None Reported. Results Created Date Observation Date Name Description Value Unit Range Abnormal Flag Note LastModifiedBy Organization Detail LastModifiedTime 12/13/19 24 12/12/2023 MRI, brain + brain stem, w/wo contr ast [facility] Access ion Number : [id number] Patien t Name: Patel, Maribell Meadowsa l Record Number : [id number] Date of : 1960 Date of Exam: 2023 Referr ing Physic kellen: Duran Estes [facility] [address] [place] [address] Exam: MR Brain (C-/C+ ) CPT 26752 Room Descri ption: [facility] 3.0T MR Brain (C-/C+ ) CPT 79353 INDICA TION / CLINIC [facility] ON: [...] BONES: Marrow signal is preser josemanuel. IMPRES CRONELIO: 1. No mass, infarc t, or other [...] onical ly Signed By: Abdulaziz Parmar MD [facility] ([facility]) [address], [place], [place], [address], 12/31/2023 04:57:08 12/28/19 24 07/18/2023 imagi ng/di [...] contr ast No observ ation record ed. [facility] ([facility]) [address] [address], [place], [address], 06/14/2024 10:19:22 06/20/19 25 05/30/2024 MRI, cervi elina spine , w/o contr ast No observ ation record ed. [email or web address] Not Available 2024 16:10:50 09/18/19 25 09/13/2024 audio gram No observ ation record ed. [email or web address] Not Available 2024 11:25:21 Result Notes Documentation Provider Name and Address Organization Details Recorded Time Mri, Brain + Brain Stem, W/wo Contrast : [facility] Accession Number: [id number] Patient Name: Maribell Sweeney Date of : 1960 Date of Exam: 12-12-2023 Referring Physician: Duran [facility] [address] [address] Exam: MR Brain (C-/C+) CPT 38388 Room Description: [facility] 3.0T MR Brain (C-/C+) CPT 40883 INDICATION / CLINICAL QUESTION: Trigeminal neuralgia TECHNIQUE: [...] disease. Electronically Signed By: Kaleigh NELSON MD [address] [place] [address], [phone], [facility] 12/31/2023 04:57:08 Problems Name Problem SNOMED Code Status Onset Date Resolution Date Notes Provider Name and Address Organization Details Recorded Time Otalgia of left ear 8323621792 Active 2020 Otalgia, left ear; Note: Date Diagnosed : 04/08/2021 3:18 PM (H92.02) Not Available [facility] 4 02:15:47 Diffuse otitis externa 86001221 Active 2020 Diffuse otitis externa, left ear; Note: Date Diagnosed : 07/17/2020 5:26 PM (H60.312) Note: Date Diagnosed : 07/17/2020 5:26 PM (H60.312) Not Available [facility] 4 00:49:08 Pain of left temporoma ndibular joint 46565448603 275941 Active 2020 Arthralgi a of left temporoma ndibular joint; Note: Date Diagnosed : 04/08/2021 3:18 PM (M26.622) Not Available [facility] 4 02:15:35 Tinnitus of left ear 25844904092 06 Active 2020 Tinnitus, left ear; Note: Date Diagnosed : 04/08/2021 3:18 PM (H93.12) Not Available [facility] 4 02:13:36 Disorder of nasal sinus 6842220 Active 2019 Unspecifi ed disorder of nose and nasal sinuses; Note: Date Diagnosed : 12/11/2019 7:07 PM (J34.9) Not Available [facility] 4 02:14:50 Disorder of the nose 81140157 Active 2019 Unspecifi ed disorder of nose and nasal sinuses; Note: Date Diagnosed : 12/11/2019 7:07 PM (J34.9) Not Available [facility] 4 02:14:50 Dysphagia 06182399 Active 2017 Dysphagia , unspecifi ed; Note: Date Diagnosed : 10/26/2017 3:35 PM (R13.10) Not Available [facility] 4 02:15:17 Acute maxillary sinusitis 09553291 Active 2019 Acute maxillary sinusitis , unspecifi ed; Note: Date Diagnosed : 12/11/2019 7:07 PM (J01.00) Not Available [facility] 4 02:13:26 Itching of skin 909543126 Active 2019 Pruritus, unspecifi ed; Note: Date Diagnosed : 12/17/2019 9:41 AM (L29.9) Not Available [facility] 4 02:15:04 Gastroeso phageal reflux disease without esophagit is 431970636 Active 2017 Gastro-es ophageal reflux disease without esophagit is; Note: Date Diagnosed : 10/26/2017 3:36 PM (K21.9) Not Available [facility] 4 02:13:57 Sensorine ural hearing loss 40769413 Active 2020 Sensorine ural hearing loss, unilatera l, left ear, with unrestric trisha hearing on the contralat eral side; Note: Date Diagnosed : 08/04/2020 11:03 AM (H90.42) Not Available [facility] 4 02:14:29 Trigemina l neuralgia 83316021 Active 2023 DURAN NELSON MD [address] [place] [address], [place], [address] , [facility] - [facility] 4 18:40:58 Localized masticato ry muscle soreness 825839368 Active 2023 Myalgia of masticati on muscle; Note: Date Diagnosed : 07/26/2023 2:53 PM (M79.11) Not Available [facility] 4 02:15:11 Type 2 diabetes mellitus without complicat ion 088214695 Active 2023 Type 2 diabetes mellitus without complicat ions; Note: Date Diagnosed : 06/13/2023 1:31 PM (E11.9) Not Available [facility] 4 02:15:17 Abnormal auditory perceptio n 85526041 Active 2024 LEXIS MONET, AuD [address] [facility],[address] [address], [place], [address] , [facility] 15:01:40 Problem Notes None recorded. Procedures Surgical History Date Name Laterality Status Provider Name and Address Organization Details Recorded Time 09/13/2024 Air & Speech Audio with Tymps - 70496, 82093 & 14549 completed LEXIS MONET, AuD [address] [facility] [address], [place], [address], [facility] 09/13/2024 15:01:28 Imaging Results None recorded. Procedure Notes None recorded. Medical Equipment None Reported. Allergies Allergen ID Allergen Name Allergen Category Reaction Reaction Severity Criticality Documentation Date Start Date Code Code System Note Provider Name and Address Organization Details Recorded Time 48942 aspirin medicatio n other Not available Not available 09/20/2023 1191 RxNorm React ion: unkno wn, unspe cifie d;; Not Available [facility] 4 00:49:02 98755 acetamino phen / oxycodone medicatio n other Not available Not available 09/20/2023 80605 3 RxNorm React ion: unkno wn, unspe cifie d;; Not Available [facility] 4 00:49:48 67860 naproxen medicatio n other Not available Not available 09/20/2023 7258 RxNorm React ion: unkno wn, unspe cifie d;; Not Available [facility] 4 00:49:48 Medications Name Sig Start Date [...] a day 06/14 completed Medicati on ID: 994466 D uration Value: 10 Brand Name: ciproflo [...] mg tablet 2017 active Medicati on ID: 103342 D uration Value: 30 Brand Name: cyprohep [...] topical solution 01/11 completed Medicati on ID: 127956 D uration Value: 14 Prescri bed By [...] small amount 2020 active Medicati on ID: 933304 D uration Value: 7 Prescri bed By [...] drops,randy pension 01/11 completed Medicati on ID: 932764 P rescribe d By Name: AZUCENA Andrade [...] 5 drop 2020 active Medicati on ID: 785618 D uration Value: 30 Prescri bed By [...] by mouth 10/19 completed Medicati on ID: 892986 D uration Value: 30 Prescri bed By Name: Paula Leon VINAY Kruger nd Name: omeprazo le Send Method: E-Prescr ibed Sub s Allowed: subs OK Speci al Instruct ion: Take 1 tablet by mouth every day before a meal Med icationG enericNa me: omeprazo le Medic ation ID: 476110 D uration Value: 30 Prescri bed By [...] Available No t Available Comfort EZ Pen [place] 32 gauge x 5/32 USE TO INJECT [...] both nostrils 2019 active Medicati on ID: 436956 D uration Value: 30 Prescri bed By [...] Available No t Available FreeStyle Antonio 2 [place] USE DIRECTED active Not Available Not Available No t Available Trulicity 4.5 mg/0.5 mL subcutane ous pen injector INJECT THE CONTENT OF 1 pen SUBCUTAN EOUSLY EVERY WEEK. USE ON THE same DAY EVERY WEEK. rotate injectio n [facility] 10/19 completed Not Available Not Available Not [...] Updated DateTime 06/14/2024 157.48 cm 36.9 kg/m2 06859.66 g Nyla Rowland [place] - [facility] 06/14/2024 09:18:50 Date Recorded Body height Body mass index (BMI) Body weight Provider Name and Address Organization Details Last Updated DateTime 10/20/2023 157.48 cm 38.2 kg/m2 32279.81 g Nyla Rowland [place] - [facility] 10/20/2023 13:21:31 Date Recorded Body height Body mass index (BMI) Body weight Provider Name and Address Organization Details Last Updated DateTime 12/27/2023 157.48 cm 35.5 kg/m2 56155.92 g Nyla Janett [place] - [facility] 12/27/2023 13:07:29 Date Recorded Body height Body mass index (BMI) Body weight Provider Name and Address Organization Details Last Updated DateTime 01/12/2024 157.48 cm 35.5 kg/m2 65713.92 g Nyla Janett [facility] 01/12/2024 13:05:16 Social History None recorded. Functional [...] Note [id number] DURAN NELSON MD [facility] on [address] [place] [phone] 10/20/2023 13:04:44 10/20/2023 14:59:17 Otalgia of left ear 8573867848 H92.02 63 yo F presents for follow up of her left ear. She is here for scheduled cerumen removal, but she is concerned about persistent pain. She was seen in [place] at the end of January and had [...] of her neurology visit. Trigeminal neuralgia 316 31454 G50.0 [id number] DURAN NELSON MD [facility] on [address] [place] [phone] 12/27/2023 13:00:52 12/27/2023 13:42:13 Diffuse otitis externa 72452643 H60.312 Otalgia of left ear 1010 732157 H92.02 63 yo F presents for follow up of her left ear. She is here for scheduled cerumen removal, but she is concerned about persistent pain. She was seen in [place] at the end of January and had [...] Lotrisone into the canal. Follow-up 2 weeks. [id number] DURAN NELSON MD [facility] on [address] [place] [address], [place] [address] 01/12/2024 12:56:02 01/12/2024 14:21:07 Otalgia of left ear 4183816954 H92.02 63 yo F presents for follow up of her left ear. Lotrisone is gone. No infection. Middle ear aerated. she can continue the vinegar drops for maintenanc e as lotrisone sparingly to the EAC meatus. Follow up three months for reassessme nt and cleaning. [id number] DURAN NELSON MD [facility] on [address] [place] [address], [place] [address] 06/14/2024 09:03:19 06/14/2024 09:30:18 Otalgia of left ear 9278942497 H92.02 63 yo F presents for follow up of her left ear. No infection. Middle ear aerated. she can continue the vinegar drops for maintenanc e and lotrisone sparingly to the EAC meatus as needed. Follow up three months for reassessme nt. Will recheck hearing then. If ear canal is healthy appearing at that visit, we will stretch follow-up to 6 months. [id number] TYESHA CARRION PA-C [facility] on [address] [place] [address] 09/13/2024 14:30:16 09/13/2024 15:19:39 Abnormal auditory perception 09476056 H93.292 Audiologic al evaluation results: Right ear: [...] [facility] - PREFERRED (MEDICARE SUPPLEMENT) [id number] Maribell H Colon [id number] Maribell H Colon 09/13/2024 1 [facility] [id number] Maribell H Colon [id number] Maribell H Colon Notes Date Note Type Note Provider Name and Address Organization Details Recorded Time 10/20/2023 text/html 63 yo F presents for follow up of her left ear. She is here for scheduled cerumen removal, but she is concerned about persistent pain. She was seen in [place] at the end of January and had [...] a CT scan of the neck at [place] which did not show any sign of [...] mouth to to tightness DURAN NELSON MD [address] [place] [address], [address], [facility] - [facility] 10/30/2023 18:46:54 12/27/2023 text/html 63-year-old luis carlos bull presents today for follow-up and reassessment of her ear. PV:63 yo F presents for follow up of her left ear. She is here for scheduled cerumen removal, but she is concerned about persistent pain. She was seen in [place] at the end of January and had [...] a CT scan of the neck at [place] which did not show any sign of [...] to to tightness DURAN NELSON MD [address] [facility], [address], [facility] - [facility] 01/03/2024 08:17:01 01/12/2024 text/html 63 yo F presents for follow up after lotrisone injection on the left. She does feel improvement in left otalgia. \ She was seen in [place] at the end of January and had [...] on the left. DURAN NELSON MD [address] [facility],[address] [address], [place], [address], [facility] - [facility] 01/18/2024 06:10:12 06/14/2024 text/html Oxcarbazepine helping with [...] recent AIC 7.4. DURAN NELSON MD [address] [facility],[address], [address], [facility] 06/14/2024 09:30:26 09/13/2024 text/html 63 year old femchristina bull presents for 3 month follow up of her left ear. She reports continued itching. She has been using Vinegar drops. She still has sensation that there is something in the ear after a shower. DURAN NELSON MD [address] [facility],[address] [address], [place], [address], [facility] 09/17/2024 08:17:08 OBGyn Episode No OBEpisode recorded.
--- OUTSIDE RECORDS SUMMARY | 2024-11-19 14:29 | XMS_ITS | Patient Health Record ---
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 Prediabetes: 5.7 - 6.4 Diabetes: >6.4 Glycemic control for adults with diabetes: <7.0 Hemoglobin [id number] Reviewed date:02/20/2024 08:28:37 AM Interpretation: Performing Lab:[facility], [address] [facility], Phone - [phone], Director - Mohsen Notes/Report: Hemoglobin A1c 6.1 4.8-5.6 % . Prediabetes: 5.7 - 6.4 Diabetes: >6.4 Glycemic control for adults with diabetes: <7.0 Albumin/Creatinine Ratio,[facility] ne-[id number] Reviewed date:09/03/2024 02:43:41 PM Interpretation: Performing Lab:[facility], [address] [place] [address], Phone - [phone], Director - Mohsen Notes/Report: Creatinine, Urine 75.8 Not Estab. mg/dL Albumin, Urine 24.0 Not Estab. ug/mL Alb/Creat Ratio 32 0-29 mg/g creat Normal: 0 - 29 Moderately increased: 30 - 300 Severely increased: >300 Albumin/Creatinine Ratio,Uri ne-[id number] Reviewed date:08/04/2024 01:31:32 PM Interpretation: Performing Lab:[facility], [address] [place] [address], Phone - [phone], Director - Mohsen Notes/Report: Creatinine, Urine 88.2 Not Estab. mg/dL Albumin, Urine 19.2 Not Estab. ug/mL Alb/Creat Ratio 22 0-29 mg/g creat Normal: 0 - 29 Moderately increased: 30 - 300 Severely increased: >300 Lipid Panel-[id number] Reviewed date:08/16/2024 04:22:18 PM Interpretation: Performing Lab:[facility] [address] [place] [address], Phone - [phone], Director - Mohsen Notes/Report: Cholesterol, Total 132 100-199 mg/dL Triglycerides 228 0-149 mg/dL HDL Cholesterol 38 >39 mg/dL VLDL Cholesterol Timothy 37 5-40 mg/dL LDL Chol Calc (NIH) 57 0-99 mg/dL Lipid Panel-[id number] Reviewed date:09/03/2024 02:43:34 PM Interpretation: Performing Lab:[facility] [address] [place] [address], Phone - [phone], Director - Mohsen Notes/Report: Cholesterol, Total 126 100-199 mg/dL Triglycerides 205 0-149 mg/dL HDL Cholesterol 38 >39 mg/dL VLDL Cholesterol Timothy 33 5-40 mg/dL LDL Chol Calc (NIH) 55 0-99 mg/dL Lipid Panel-[id number] Reviewed date:08/26/2024 07:23:29 AM Interpretation: Performing Lab:[facility], [address] [facility], Phone - [phone], Director - MDNigel Notes/Report: Cholesterol, Total 125 100-199 mg/dL Triglycerides 203 0-149 mg/dL HDL Cholesterol 39 >39 mg/dL VLDL Cholesterol Timothy 33 5-40 mg/dL LDL Chol Calc ([facility]) 53 0-99 mg/dL Comp. Metabolic Panel (14)-3 Reviewed date:09/03/2024 02:43:50 PM Interpretation: Performing Lab:[facility], [address] [facility], Phone - [phone], Director - MDNigel Notes/Report: Glucose 145 70-99 mg/dL BUN 21 [...] 0-40 IU/L ALT (SGPT) 38 0-32 IU/L Comp. Metabolic Panel (14)- Reviewed date:08/04/2024 01:36:37 PM Interpretation: Performing [facility], [address] [facility], Phone - [phone], Director - MDSvitlanay Notes/Report: Glucose 101 70-99 mg/dL BUN 19 [...] 0-40 IU/L ALT (SGPT) 46 0-32 IU/L PAP SMEAR Reviewed date:08/09/2024 01:14:25 PM Interpretation: Performing Lab: Notes/Report: Interpretation Negative for intraepithelial lesion or malignancy Specimen Adequacy Satisfactory for evaluation, endocervical/transforma tion zone component present Pap Methodology Liquid Based Pap Test Disclaimer The Pap test is a screening test which carries an inherent false negative rate. These test results should be correlated with the patient's clinical findings and history. This Pap test was processed using an automated screening system. Technical cytopathology services provided by [facility], at [address] [place] [address] (CLIA # [id number]/Omi Connelly MD, [place] [employer].) Console Pap Interpretation Reported General Categorization Negative MG MAMMO DIGITAL SCREENING W TONG BILAT Reviewed date:08/22/2024 02:13:16 PM Interpretation: Performing Lab: Notes/Report: Note See Note [facility], a member of [facility] Patient Name: MARIBELL TAYLOR Date of : 1960 Reason for Exam: Breast cancer screen, avg risk, asymptomatic (Age => 42y) Exam Date: 08/20/2024 [id number] EST Report Status: Final Ordering Provider: TONY RAPP PCP: ELLA MICHAEL EXAM: SCREENING MAMMOGRAPHY, BILATERAL HISTORY: SCREENING. Paternal aunt diagnosed with breast cancer age 39 COMPARISON: 10/21/20 TECHNIQUE: Synthesiz ed CC and MLO projections of each breast. [...] No mammographic evidence of malignancy. No suspicious interv al change. A negative mammogram in the presence of a clinically suspicious palpable abnormality does not preclude the possibility of malignancy or alter the indications for biopsy. ASSESSMENT: BI-RADS 1: NEGATIVE RECOMMENDATION(S): 1: Routine screening mammogram BILATERAL in 1 year. [facility] [address], [address] -------- FINAL REPOR T -------- Dictated By: Sd Holbrook Dictated Date: 08/20/2024 16:32 ET Assigned Physician: Sd Restrepo Reviewed and Electronically Signed By: Sd Restrepo Signed Date: 025 16:39 ET Workstation ID: [id number] Transcribed By: Self Edit Transcribed Date: 08/20/2024 16:32 ET HPV WITH REFLEX GENOTYPE Reviewed date:08/08/2024 01:37:20 PM Interpretation: Performing Lab: Notes/Report: HPV Negative Negative Reason For Referral Reason Evaluation and manag ement - Dr Cruz Diagnosis 1 Other hammer toe(s) (acquired), right foot (M20.41) Referral Organization [facility] Referring Provider First Name ELLA Referring Provider Last Name [facility] Referring Provider [facility] Referred Provider Specialty Podiatry General Notes Referral sent to [facility] in [place] - Office will call patient for scheduling.Janene Latraya 02/02/2024 09:36:19 AM > Referral Priority Routine Reason Evaluation and manag emchristian Iraheta Diagnosis 1 Radiculopathy, lumbo sacral region (M54.17) Diagnosis 2 Pain in right should er (M25.511) Diagnosis 3 Pain in left wrist ( M25.532) Diagnosis 4 Pain in left hand (M 79.642) Diagnosis 5 Pain in right foot ( M79.671) Diagnosis 6 Low back pain (M54.5 ) Referral Organization [facility] Referring Provider First Name ELLA Referring Provider Last Name [facility] Referring Provider Speciality Internal M edicine Referred Provider Specialty Pain Medicin e General Notes Referral sent to [facility] in [place] - Office will call patient for scheduling., Janene Keyarian 02/21/2024 10:54:41 AM > Referral Priority Routine Medications Medication SIG (Take, Route, Frequency, Duration) Notes Start Date End Date Status Nystatin-Triamcinolone 731395-8.1 UNIT/GM 1 application Externally Twice a day; Duration: 28 days 11/12/2024 Active Nystatin-Triamcinolone 386375-4.1 UNIT/GM 1 application Externally Twice a day Active Baclofen 10 MG 1 tablet as needed Orally Twice a day Active OXcarbazepine 150 MG 1 tablet Orally Onc e a day Active Ozempic (0.25 or 0.5 MG/DOSE) 2 MG/3ML as directed Subcutaneous once a week Active Ventolin HFA 108 (90 Base) MCG/ACT 1 puff as needed Inhalation every 4 hrs Active Omeprazole 40 MG 1 capsule 1/2 to 1 hour before morning meal Orally Once a day; Duration: 30 days Active LORazepam 1 MG 1 tablet at bedtime as needed Orally Once a day Active EPINEPHrine 0.3 MG/0.3ML INJECT INTRAMUSCULARLY THE CONTENT OF 1 pen as indicated by anaphylaxis; Duration: 7 Active Easy Touch Lancets 28G - as directed; Duration: 30 days Active Insulin Lispro (1 Unit Dial) 100 unit/mL INJECT 30 UNITS UNDER THE SKIN 3 (THREE) TIMES A DAY; Duration: 30 Active Diflucan 150 MG 1 tablet Orally daily; Duration: 3 days 07/31/2024 Active metFORMIN HCl 850 mg TAKE 1 TABLET BY MOUTH two (2) times a day. TAKE WITH MEALS; Duration: 30 Active Metoprolol Succinate ER 100 mg TAKE 1 TABLET BY MOUTH ONCE DAILY; Duration: 30 Active Econazole Nitrate 1 % 1 application Externally twice a day; Duration: 30 days 11/05/2022 Active amLODIPine Besylate 5 mg TAKE ONE TABLET BY MOUTH ONCE A DAY once a day; Duration: 90 days Active tiZANidine HCl 4 MG 1 tablet Orally 3 times a day; Duration: 30 days As needed Active Ezetimibe 10 mg TAKE 1 TABLET BY MOUTH ONCE DAILY; Duration: 30 Active Trulicity 1.5 MG/0.5ML inject the conten t of 1 pen under the skin each week as directed Subcutaneous weekly; Duration: 30 days 02/23/2022 Not-Taking Trulicity 3 MG/0.5ML inject the content of 1 pen under the skin each week as directed Subcutaneous weekly; Duration: 30 days 02/23/2022 Not-Taking Azithromycin 250 MG 2 tablet day one 1 tab daily for 4 days Orally daily; Duration: 5 days 03/19/2022 Not-Taking metroNIDAZOLE 0.75 % _insert 1 APPLICATORFUL VAGINALLY ONCE A DAY AT BEDTIME FOR 10 DAYS; Duration: 10 Not-Taking FreeStyle Lite Test - USE TO TEST FINGER STICK BLOOD SUGAR 3 (THREE) TIMES A DAY; Duration: 30 Active Admelog SoloStar 100 UNIT/ML 11 units Subcutaneous three times a day; Duration: 30 Not-Taking Eliquis 5 mg TAKE ONE TABLET BY MOUTH two (2) times a day 30; Duration: 30 Active Fluticasone Propionate 50 MCG/ACT SPRAY TWICE INTO EACH NOSTRIL ONCE A DAY; Duration: 30 Not-Taking Montelukast Sodium 10 mg TAKE 1 TABLET B Y MOUTH ONCE A DAY; Duration: 30 days Active Zofran 4 MG as directed Orally; Duration: 7 days 07/07/2018 Not-Taking hydrOXYzine HCl 25 MG 1 tablet Orally On ce a day; Duration: 90 days Active Fluconazole 50 MG 1 tablet Orally Daily; Duration: 10 day(s) 06/16/2020 Not-Taking Lidocaine 5 % 1 patch remove after 12 hours Externally Once a day; Duration: 90 days Active clonazePAM 1 MG 2 tablets in the am and 2 tablets in pm Orally twice a day CHD Not-Taking Alcohol Pads 70 % USE TOPICALLY THREE TIMES DAILY; Duration: 30 days Active True Comfort Pen Weogufka 32G X 4 MM USE TO INJECT insulin 5 TIMES A DAY; Duration: 25 Active True Comfort Safety Lancets - USE TO TEST FINGER STICK BLOOD SUGAR 3 (THREE) TIMES A DAY; Duration: 30 Active Diclofenac Sodium 1 % as directed Externally 2 times a day; Duration: 30 days Active Fluconazole 150 mg TAKE 1 TABLET BY MOUTH EVERY 3 DAYS; Duration: 3 Active Tobramycin 0.3 % 1 drop into affected eye Ophthalmic every 4 hrs; Duration: 7 days 02/01/2024 Not-Taking predniSONE 20 MG 1 tablet Orally Once a day; Duration: 7 days 02/29/2024 Not-Taking Doxycycline Hyclate 100 MG 1 capsule Orally Twice a day; Duration: 7 days 12/06/2023 Not-Taking predniSONE 20 MG 1 tablet Orally Once a day; Duration: 7 days 12/06/2023 Not-Taking Myrbetriq 50 MG 1 tablet Orally twice a day; Duration: 30 Urologist Active Benzonatate 100 MG 1 capsule as needed Orally Three times a day; Duration: 7 days 12/06/2023 Not-Taking Oavtjuci-Ivuqrkwsf-GI 1 % 4 drops into affected ear Otic Three times a day; Duration: 7 days 05/31/2023 Active Serevent Diskus 50 MCG/DOSE Inhale 1 Puff into the lungs 2 times daily for 30 days.; Duration: 30 Active oxyCODONE HCl 30 mg TAKE 1 TABLET BY MOUTH 3 (THREE) TIMES A DAY NEEDED FOR PAIN by mouth 3 times a day; Duration: 14 days 01/02/2024 Not-Taking Metoclopramide HCl 10 MG 1 tablet before meals Orally Twice a day; Duration: 30 days 11/01/2022 Active Cephalexin 500 MG 1 capsule Orally every 8 hours; Duration: 7 days 09/21/2023 Not-Taking Ondansetron HCl 4 MG 1 tablet Orally twice a day; Duration: 7 days 11/05/2022 Active predniSONE 10 MG 1 tablet Orally Once a day; Duration: 7 days 10/06/2023 Not-Taking Lidocaine HCl Urethral/Mucosal 2 % APPLY SPARINGLY TO THE AFFECTED AREA ON RIGHT TO THE ARM AND CHEST 2 TO 3 TIMES A DAY IF ITCHY; Duration: 30 Active Tessalon Perles 100 MG 1 capsule as need ed Orally Three times a day; Duration: 7 days 03/19/2022 Not-Taking Omeprazole 20 mg TAKE 1 CAPSULE BY MOUTH 30 MINUTES BEFORE morning meal; Duration: 30 Active Benzonatate 100 MG 1 capsule as needed Orally Three times a day; Duration: 7 days 10/25/2022 Not-Taking hydroCHLOROthiazide 25 mg TAKE 1 TABLET BY MOUTH EVERY MORNING; Duration: 30 Active Lantus SoloStar 100 UNIT/ML INJECT 90 UNITS UNDER THE SKIN ONCE A DAY DIRECTED; Duration: 30 Active Meclizine HCl 25 MG 1 tablet as needed Orally every 12 hrs; Duration: 10 days 05/31/2023 Active Atorvastatin Calcium 10 mg TAKE 1 TABLET BY MOUTH ONCE DAILY; Duration: 30 Active Losartan Potassium 100 mg TAKE 1 TABLET BY MOUTH ONCE DAILY; Duration: 30 Active D3 Super Strength 50 MCG (2000 UT) TAKE 1 CAPSULE BY MOUTH ONCE DAILY; Duration: 30 Active Benzonatate 100 MG 1 capsule as needed Orally Three times a day; Duration: 14 days 02/29/2024 Active EpiPen 2-Amadeo 0.3 MG/0.3ML as directed Injection once as needed; Duration: 30 days 10/02/2020 Active FreeStyle Lite - as directed to check blood sugars Dx: E11.9 in vitro three times daily; Duration: 30 days 02/24/2018 Active Albuterol Sulfate HFA 108 (90 Base) MCG/ACT 2 puffs as needed Inhalation every 6 hrs Active Loratadine 10 mg TAKE 1 TABLET BY MOUTH ONCE DAILY; Duration: 30 days Active Azelastine HCl 0.1 % 1 puff in each nostril Nasally Twice a day Active Temazepam 30 MG 1 capsule at bedtime as needed Orally Once a day Not-Taking Citalopram Hydrobromide 40 MG 2 tablet Orally Once a day; Duration: 30 day(s) Psy Active ProAir HFA 108 (90 Base) MCG/ACT 2 puffs Inhalation Every 4 hours,PRN:for wheezing; Duration: 17 Not-Taking Mometasone Furoate 0.1 % Apply sparingly first before calcipotriene twice a day to affected areas on arms and chest as needed 30 30; Duration: 30 Active Carafate 1 GM/10ML 10 ml on an empty stomach Orally Twice a day; Duration: 30 day(s) 05/04/2021 Not-Taking Cyproheptadine HCl 4 MG TAKE ONE TABLET BY MOUTH 3 (THREE) TIMES A DAY NEEDED FOR ITCH 30 30; Duration: 30 Active Ofloxacin 0.3 % 10 drops into affected ear Otic Once a day; Duration: 7 days 03/18/2023 Not-Taking Nebulizer/Tubing/Mouthpie ce - as directed for treatment of Dx: J45.30 inhalation every 4-6 hours prn; Duration: 30 days 06/26/2019 Active Acnaasti-Hrkssxfyr-VE 1 % 4 drops into affected ear Otic Three times a day; Duration: 7 days 03/18/2023 Not-Taking Flovent HFA 110 MCG/ACT 2 puffs Inhalati on 2 times a day,Instr:rinse mouth and throat after use; Duration: 30 Active Xopenex 1.25 MG/3ML 3 ml Inhalation three times daily; Duration: 15 Active Immunizations Vaccine Route Administration Date Status [...] W/U Status Risk Notes Problem Diabetic neuropathy (990082831) Diabetes mellitus due to underlying condition with diabetic neuropathy, unspecified (E08.40) Active confirmed Problem Morbid obesity (disorder) (723449518) Morbid (severe) obesity due to excess calories (E66.01) Active confirmed Problem Anxiety disorder (428527077) Anxiety disorder, unspecified (F41.9) Active confirmed Problem Essential tremor (606347531) Essential tremor (G25.0) Active confirmed Problem Insomnia (399272865) Insomnia, unspecified (G47.00) Active confirmed Problem Obstructive sleep apnea syndrome (95118562) Obstructive sleep apnea (adult) (pediatric) (G47.33) Active confirmed Problem Essential hypertensi on (18817926) Essential (primary) hypertension (I10) Active confirmed Problem Peripheral vascular disease (419879080) Peripheral vascular disease, unspecified (I73.9) Active confirmed Problem Embolism from thrombosis of vein of lower extremity (294462958) Chronic embolism and thrombosis of unspecified deep veins of unspecified lower extremity (I82.509) Active confirmed Problem Uncomplicated mild persistent asthma (740248972) Mild persistent asthma, uncomplicated (J45.30) Active confirmed Problem Polyp of colon (91007457) Polyp of colon (K63.5) Active confirmed Problem Acquired hammer toe of right foot (3468178626009888) Other hammer toe(s) (acquired), right foot (M20.41) Active confirmed Problem Shoulder joint pain (457928065) Pain in left shoulder (M25.512) Active confirmed Problem Lumbosacral radiculopathy (2701972) Radiculopathy, lumbosacral region (M54.17) Active confirmed Problem Dysphagia (89871659) Dysphagia, unspecified (R13.10) Active confirmed Problem Paresthesia (finding ) (56862952) Paresthesia of skin (R20.2) Active confirmed Problem Amputated below knee (626254193) Acquired absence of left leg below knee (Z89.512) Active confirmed Problem Pure hypercholesterolemia (979622293) Pure hypercholesterolem ia, unspecified (E78.00) Active confirmed Problem Chronic kidney disea se stage 3 (disorder) (769379344) Chronic kidney disease, stage 3 unspecified (N18.30) Active confirmed Problem Type 2 diabetes mellitus with other specified complication, without long-term current use of insulin (E11.69) Active confirmed Problem Urinary incontinence (175629704) Urinary incontinence, unspecified type (R32) Active confirmed Problem Gastroesophageal reflux disease (672807131) Gastroesophageal reflux disease, unspecified whether esophagitis present (K21.9) Active confirmed Vital Signs Heart Rate 80 /min 09/17/2024 Temperature 96.5 degrees Fahrenheit 09/17/2024 Blood pressure diastolic 80 mm Hg 09/17/2024 Oximetry 98 % 09/17/2024 Height 62.24 in 09/17/2024 Blood pressure systolic 126 mm Hg 09/17/2024 Weight 224.4 lbs 09/17/2024 BMI 40.72 kg/m2 09/17/2024 Encounters Encounter Location Date Provider Diagnosis [address] [address] 12/06/2023 JARAMILLO GUL Mild persistent asth ma, uncomplicated J45.[address] [address] 02/01/2024 JARAMILLO GUL Other conjunctivitis H10.89 ; Left temporomandibular joint disorder, unspecified M26.602 ; Radiculopathy, lumbosacral region M54.17 and Other hammer toe(s) (acquired), right foot M20.[address] [address] 02/21/2024 JARAMILLO GUL Radiculopathy, lumbosacral region M54.17 ; Diabetes mellitus due to underlying condition with diabetic neuropathy, unspecified E08.40 ; Essential (primary) hypertension I10 and Chronic kidney disease, stage 3 unspecified N18.[address] [place] [address] 02/29/2024 Mitchellkarolynnas Kennypolykuldeep Acute URI J06.[address] [address] 04/18/2024 Ghadeer Efraínloum Diabetes mellitus du e to underlying condition [...] of micturition R35.0 and Epidermal cyst L72.[address] [address] 05/14/2024 JARAMILLO GUL Pain in right leg M7 9.[address] [address] 05/23/2024 JARAMILLO GUL Diabetes mellitus du e to underlying condition with diabetic neuropathy, unspecified E08.40 ; Essential (primary) hypertension I10 ; Obstructive sleep apnea (adult) (pediatric) G47.33 ; Anxiety disorder, unspecified F41.9 ; Mild persistent asthma, uncomplicated J45.30 ; Chronic embolism and thrombosis of unspecified deep veins of unspecified lower extremity I82.509 and Chronic kidney disease, stage 3 unspecified N18.[address] [address] 07/31/2024 JARAMILLO GUL Diabetes mellitus du e [...] Chronic kidney disease, stage 3 unspecified N18.[address] [place] [address] 09/17/2024 JARAMILLO GUL Unspecified fall, in itial encounter W19.XXXA and Pain in right leg M79.[address] [place] [address] 12/05/[address] [place] [address] 12/07/[address] [place] [address] 12/19/[address] [place] [address] 01/02/[address] [place] [address] 01/10/[address] [place] [address] 01/25/[address] [place] [address] 02/02/2024 JARAMILLO GU Other conjunctivitis H10.[address] [place] [address] 02/07/[address] [place] [address] 02/16/2024 JARAMILLO GUL Diabetes mellitus du e to underlying condition with diabetic neuropathy, unspecified E08.[address] [place] [address] 02/23/2024 JARAMILLO L [facility] [address] [facility] [address] [place] [address] 02/28/2024 JARAMILLO L [facility] [address] [facility] [address] [place] [address] 03/05/2024 [facility] [address] [facility] [address] [place] [address] 04/16/2024 [facility] [address] [facility] [address] [place] [address] 04/16/2024 [facility] [address] [facility] [address] [place] [address] 06/21/2024 [facility] [address] [facility] [address] [place] [address] 07/13/2024 [facility] [address] [facility] [address] [place] [address] 07/30/2024 [facility] [address] [facility] [address] [place] [address] 08/16/2024 [facility] [address] [place] [address] 08/16/2024 [facility] Pure hypercholesterolemia, unspecified E78.00 [facility] [address] [facility] [address] [place] [address] 08/22/2024 [facility] [address] [facility] [address] [place] [address] 08/22/2024 [facility] [address] [facility] [address] [place] [address] 09/25/2024 [facility] Acute URI J06.9 [facility] [address] [facility] [address] [place] [address] 11/08/2024 [facility] [address] [place] [address] 11/12/2024 ELLA MICHAEL Assessments Encounter Date Diagnosis (ICD Code) Assessment Notes Treatment Notes Treatment Clinical Notes Section Notes 12/06/2023 Mild persistent asthma, uncomplicated (ICD-10 - [...] this note under HIPAA compliance and under [place] law mandated for scribe services. Patient aware [...] was negative and it was sent to [facility] for further evaluation and it was [...] this note under HIPAA compliance and under [place] law mandated for scribe services. Patient aware [...] was negative and it was sent to [facility] for further evaluation and it was [...] this note under HIPAA compliance and under [place] law mandated for scribe services. Patient aware [...] on right medications. She has seen her fire ranger in the past 1 year. Foot care [...] because she is on temazepam. Referred to [facility] Dr. Iraheta. Chronic kidney [...] this note under HIPAA compliance and under [place] law mandated for scribe services. Patient aware [...] on right medications. She has seen her fire ranger in the past 1 year. Foot care [...] because she is on temazepam. Referred to [facility] Dr. Iraheta. Chronic kidney [...] this note under HIPAA compliance and under [place] law mandated for scribe services. Patient aware [...] afternoon for breakthrough pains. She follows with [facility] Dr. Iraheta. Chronic kidney disease stage 3. -She does not appear to be in volume overload. Advised appropriate hydration. Avoid NSAIDs. She sees Dr. Lakhani. Asthma. -She uses her inhalers as needed. Follows with Dr. [facility] Generalized anxiety disorder. -Mood is stable on Lorazepam 3 times a day. She has a psychiatrist and a therapist. GERD/gastroparesis /dysphagia - Currently she is on omperazole 20m and Reglan 10 MG twice a day. I have increased omperazole to 40mg and advised patient to follow-up with her GI at [facility]. She has an appt in May. MUSA: [...] with diabetic neuropathy. She follows up with [facility] endocrinology and according to patient her last A1c was within normal range. She is seen fire ranger in the past. She follows up with daycare teacher and kidney function is stable. Foot care discussed with the patient. Hypertension/hyper lipidemia. Blood pressure well controlled and last lipid panel was within reasonable limits Obstructive sleep apnea. Continue on CPAP machine and no daytime sleepiness. Moderate persistent asthma. She stable when she follows up with jack strip assembler Anxiety/depression . Stable on current regimen. Considering her neuropathy she may be a good candidate for duloxetine which can be added to her regimen and she will check with her psychiatrist. Chronic kidney disease. She is stable and she follows up with daycare teacher to avoid NSAIDs. Right lower extremity swelling. It is nonpitting edema most likely lymphedema. She is on Eliquis and less likely to be a DVT but considering her history we will do ultrasound right lower extremity in the next few days. 07/31/2024 Diabetes mellitus due to underlying condition [...] and hemoglobin A1c and follows up with [facility] end[facility]. She is seen fire ranger in the past. She follows up with daycare teacher and kidney function is stable. Foot care discussed with the patient. Hypertension/hyper lipidemia. Blood pressure well controlled and last lipid panel was within reasonable limits Obstructive sleep apnea. Continue on CPAP machine and no daytime sleepiness. Moderate persistent asthma. She stable when she follows up with jack strip assembler Anxiety/depression . Stable on current regimen. Considering her neuropathy she may be a good candidate for duloxetine which can be added to her regimen and she will check with her psychiatrist. Chronic kidney disease. She is stable and she follows up with daycare teacher to avoid NSAIDs. Right lower extremity swelling. It is nonpitting edema most likely lymphedema. She is on Eliquis and less likely to be a DVT and ultrasound lower extremity was negative. Vaginal candidiasis. She is given fluconazole and advised to control blood sugars 08/16/2024 Pure hypercholesterolemia , unspecified (ICD-10 - E78.00) 09/17/2024 Unspecified fall, initial encounter (ICD-10 - [...] is on Eliquis. She was taken to [facility] ER where she had CT scan of the head and x-ray of the right leg which were negative. Plan is as follows Hematoma of right wiseman. Discussed with the patient that it is superficial and she is low risk for DVTs. Keep the leg elevated and iced the leg. No other intervention is very 09/17/2024 Pain in right leg (ICD-10 - [...] is on Eliquis. She was taken to [facility] ER where she had CT scan of the head and x-ray of the right leg which were negative. Plan is as follows Hematoma of right wiseman. Discussed with the patient that it is superficial and she is low risk for DVTs. Keep the leg elevated and iced the leg. No other intervention is very 09/25/2024 Acute URI (ICD-10 - J06.9) 07/31/2024 Essential (primary) hypertension (ICD-10 - I10) [...] and hemoglobin A1c and follows up with [facility] end[facility]. She is seen fire ranger in the past. She follows up with daycare teacher and kidney function is stable. Foot care discussed with the patient. Hypertension/hyper lipidemia. Blood pressure well controlled and last lipid panel was within reasonable limits Obstructive sleep apnea. Continue on CPAP machine and no daytime sleepiness. Moderate persistent asthma. She stable when she follows up with jack strip assembler Anxiety/depression . Stable on current regimen. Considering her neuropathy she may be a good candidate for duloxetine which can be added to her regimen and she will check with her psychiatrist. Chronic kidney disease. She is stable and she follows up with daycare teacher to avoid NSAIDs. Right lower extremity swelling. [...] and hemoglobin A1c and follows up with [facility] end[facility]. She is seen fire ranger in the past. She follows up with daycare teacher and kidney function is stable. Foot care discussed with the patient. Hypertension/hyper lipidemia. Blood pressure well controlled and last lipid panel was within reasonable limits Obstructive sleep apnea. Continue on CPAP machine and no daytime sleepiness. Moderate persistent asthma. She stable when she follows up with jack strip assembler Anxiety/depression . Stable on current regimen. Considering her neuropathy she may be a good candidate for duloxetine which can be added to her regimen and she will check with her psychiatrist. Chronic kidney disease. She is stable and she follows up with daycare teacher to avoid NSAIDs. Right lower extremity swelling. It is nonpitting edema most likely lymphedema. She is on Eliquis and less likely to be a DVT and ultrasound lower extremity was negative. Vaginal candidiasis. She is given fluconazole and advised to control blood sugars 05/23/2024 Essential (primary) hypertension (ICD-10 - I10) Maribell is 63 years old lady with DM type II, hypertension, hyperlipidemia, morbid persistent asthma, generalized anxiety disorder/depressio n, chronic kidney disease stage IIIa, trigeminal neuralgia, obstructive sleep apnea, chronic pain syndrome is here for follow-up. Plan is as follows Diabetes mellitus type 2 with diabetic neuropathy. She follows up with [facility] end[facility] and according to patient her last A1c was within normal range. She is seen fire ranger in the past. She follows up with daycare teacher and kidney function is stable. Foot care discussed with the patient. Hypertension/hyper lipidemia. Blood pressure well controlled and last lipid panel was within reasonable limits Obstructive sleep apnea. Continue on CPAP machine and no daytime sleepiness. Moderate persistent asthma. She stable when she follows up with jack strip assembler Anxiety/depression . Stable on current regimen. Considering her neuropathy she may be a good candidate for duloxetine which can be added to her regimen and she will check with her psychiatrist. Chronic kidney disease. She is stable and she follows up with daycare teacher to avoid NSAIDs. Right lower extremity swelling. [...] afternoon for breakthrough pains. She follows with [facility] Dr. Iraheta. Chronic kidney disease stage 3. -She does not appear to be in volume overload. Advised appropriate hydration. Avoid NSAIDs. She sees Dr. Lakhani. Asthma. -She uses her inhalers as needed. Follows with Dr. Shipley-[facility] Generalized anxiety disorder. -Mood is stable on Lorazepam 3 times a day. She has a psychiatrist and a therapist. GERD/gastroparesis /dysphagia - Currently she is on omperazole 20m and Reglan 10 MG twice a day. I have increased omperazole to 40mg and advised patient to follow-up with her GI at [facility]. She has an appt in May. MUSA: [...] on right medications. She has seen her fire ranger in the past 1 year. Foot care [...] because she is on temazepam. Referred to [facility] Dr. Iraheta. Chronic kidney [...] this note under HIPAA compliance and under [place] law mandated for scribe services. Patient aware [...] was negative and it was sent to [facility] for further evaluation and it was [...] this note under HIPAA compliance and under [place] law mandated for scribe services. Patient aware [...] at this point. Margarita. Referred to Dr Curz at podiatry. Degenerative disc disease/lumbar radiculopathy. She was on oxycodone 30 mg 1 tablet 3 times a day but her recent urine toxicology screen was negative and it was sent to [facility] for further evaluation and it was [...] this note under HIPAA compliance and under [place] law mandated for scribe services. Patient aware [...] on right medications. She has seen her fire ranger in the past 1 year. Foot care [...] because she is on temazepam. Referred to [facility] Dr. Iraheta. Chronic kidney [...] this note under HIPAA compliance and under [place] law mandated for scribe services. Patient aware [...] with diabetic neuropathy. She follows up with [facility] end[facility] and according to patient her last A1c was within normal range. She is seen fire ranger in the past. She follows up with daycare teacher and kidney function is stable. Foot care discussed with the patient. Hypertension/hyper lipidemia. Blood pressure well controlled and last lipid panel was within reasonable limits Obstructive sleep apnea. Continue on CPAP machine and no daytime sleepiness. Moderate persistent asthma. She stable when she follows up with jack strip assembler Anxiety/depression . Stable on current regimen. Considering her neuropathy she may be a good candidate for duloxetine which can be added to her regimen and she will check with her psychiatrist. Chronic kidney disease. She is stable and she follows up with daycare teacher to avoid NSAIDs. Right lower extremity swelling. It is nonpitting edema most likely lymphedema. She is on Eliquis and less likely to be a DVT but considering her history we will do ultrasound right lower extremity in the next few days. 04/18/2024 Chronic embolism and thrombosis of unspecified [...] afternoon for breakthrough pains. She follows with [facility] Dr. Iraheta. Chronic kidney disease stage 3. -She does not appear to be in volume overload. Advised appropriate hydration. Avoid NSAIDs. She sees Dr. Lakhani. Asthma. -She uses her inhalers as needed. Follows with Dr. Shipley-[facility] Generalized anxiety disorder. -Mood is stable on Lorazepam 3 times a day. She has a psychiatrist and a therapist. GERD/gastroparesis /dysphagia - Currently she is on omperazole 20m and Reglan 10 MG twice a day. I have increased omperazole to 40mg and advised patient to follow-up with her GI at [facility]. She has an appt in May. MUSA: [...] patient but was available upon request 07/31/2024 Obstructive sleep apnea (adult) (pediatric) (ICD-10 [...] and hemoglobin A1c and follows up with [facility] end[facility]. She is seen fire ranger in the past. She follows up with daycare teacher and kidney function is stable. Foot care discussed with the patient. Hypertension/hyper lipidemia. Blood pressure well controlled and last lipid panel was within reasonable limits Obstructive sleep apnea. Continue on CPAP machine and no daytime sleepiness. Moderate persistent asthma. She stable when she follows up with jack strip assembler Anxiety/depression . Stable on current regimen. Considering her neuropathy she may be a good candidate for duloxetine which can be added to her regimen and she will check with her psychiatrist. Chronic kidney disease. She is stable and she follows up with daycare teacher to avoid NSAIDs. Right lower extremity swelling. It is nonpitting edema most likely lymphedema. She is on Eliquis and less likely to be a DVT and ultrasound lower extremity was negative. Vaginal candidiasis. She is given fluconazole and advised to control blood sugars 07/31/2024 Anxiety disorder, unspecified (ICD-10 - F41.9) [...] and hemoglobin A1c and follows up with [facility] end[facility]. She is seen fire ranger in the past. She follows up with daycare teacher and kidney function is stable. Foot care discussed with the patient. Hypertension/hyper lipidemia. Blood pressure well controlled and last lipid panel was within reasonable limits Obstructive sleep apnea. Continue on CPAP machine and no daytime sleepiness. Moderate persistent asthma. She stable when she follows up with jack strip assembler Anxiety/depression . Stable on current regimen. Considering her neuropathy she may be a good candidate for duloxetine which can be added to her regimen and she will check with her psychiatrist. Chronic kidney disease. She is stable and she follows up with daycare teacher to avoid NSAIDs. Right lower extremity swelling. It is nonpitting edema most likely lymphedema. She is on Eliquis and less likely to be a DVT and ultrasound lower extremity was negative. Vaginal candidiasis. She is given fluconazole and advised to control blood sugars 04/18/2024 Radiculopathy, lumbosacral region (ICD-10 - M54.17) [...] afternoon for breakthrough pains. She follows with [facility] Dr. Iraheta. Chronic kidney disease stage 3. -She does not appear to be in volume overload. Advised appropriate hydration. Avoid NSAIDs. She sees Dr. Lakhani. Asthma. -She uses her inhalers as needed. Follows with Dr. Shipley-[facility] Generalized anxiety disorder. -Mood is stable on Lorazepam 3 times a day. She has a psychiatrist and a therapist. GERD/gastroparesis /dysphagia - Currently she is on omperazole 20m and Reglan 10 MG twice a day. I have increased omperazole to 40mg and advised patient to follow-up with her GI at [facility]. She has an appt in May. MUSA: [...] patient but was available upon request 05/23/2024 Anxiety disorder, unspecified (ICD-10 - F41.9) Maribell is 63 years old lady with DM type II, hypertension, hyperlipidemia, morbid persistent asthma, generalized anxiety disorder/depressio n, chronic kidney disease stage IIIa, trigeminal neuralgia, obstructive sleep apnea, chronic pain syndrome is here for follow-up. Plan is as follows Diabetes mellitus type 2 with diabetic neuropathy. She follows up with [facility] end[facility] and according to patient her last A1c was within normal range. She is seen fire ranger in the past. She follows up with daycare teacher and kidney function is stable. Foot care discussed with the patient. Hypertension/hyper lipidemia. Blood pressure well controlled and last lipid panel was within reasonable limits Obstructive sleep apnea. Continue on CPAP machine and no daytime sleepiness. Moderate persistent asthma. She stable when she follows up with jack strip assembler Anxiety/depression . Stable on current regimen. Considering her neuropathy she may be a good candidate for duloxetine which can be added to her regimen and she will check with her psychiatrist. Chronic kidney disease. She is stable and she follows up with daycare teacher to avoid NSAIDs. Right lower extremity swelling. [...] afternoon for breakthrough pains. She follows with [facility] Dr. Iraheta. Chronic kidney disease stage 3. -She does not appear to be in volume overload. Advised appropriate hydration. Avoid NSAIDs. She sees Dr. Lakhani. Asthma. -She uses her inhalers as needed. Follows with Dr. Shipley-[facility] Generalized anxiety disorder. -Mood is stable on Lorazepam 3 times a day. She has a psychiatrist and a therapist. GERD/gastroparesis /dysphagia - Currently she is on omperazole 20m and Reglan 10 MG twice a day. I have increased omperazole to 40mg and advised patient to follow-up with her GI at [facility]. She has an appt in May. MUSA: [...] with diabetic neuropathy. She follows up with [facility] and according to patient her last A1c was within normal range. She is seen fire ranger in the past. She follows up with daycare teacher and kidney function is stable. Foot care discussed with the patient. Hypertension/hyper lipidemia. Blood pressure well controlled and last lipid panel was within reasonable limits Obstructive sleep apnea. Continue on CPAP machine and no daytime sleepiness. Moderate persistent asthma. She stable when she follows up with jack strip assembler Anxiety/depression . Stable on current regimen. Considering her neuropathy she may be a good candidate for duloxetine which can be added to her regimen and she will check with her psychiatrist. Chronic kidney disease. She is stable and she follows up with daycare teacher to avoid NSAIDs. Right lower extremity swelling. [...] and hemoglobin A1c and follows up with [facility] end[facility]. She is seen fire ranger in the past. She follows up with daycare teacher and kidney function is stable. Foot care discussed with the patient. Hypertension/hyper lipidemia. Blood pressure well controlled and last lipid panel was within reasonable limits Obstructive sleep apnea. Continue on CPAP machine and no daytime sleepiness. Moderate persistent asthma. She stable when she follows up with jack strip assembler Anxiety/depression . Stable on current regimen. Considering her neuropathy she may be a good candidate for duloxetine which can be added to her regimen and she will check with her psychiatrist. Chronic kidney disease. She is stable and she follows up with daycare teacher to avoid NSAIDs. Right lower extremity swelling. It is nonpitting edema most likely lymphedema. She is on Eliquis and less likely to be a DVT and ultrasound lower extremity was negative. Vaginal candidiasis. She is given fluconazole and advised to control blood sugars 07/31/2024 Chronic embolism and thrombosis of unspecified [...] and hemoglobin A1c and follows up with [facility] end[facility]. She is seen fire ranger in the past. She follows up with daycare teacher and kidney function is stable. Foot care discussed with the patient. Hypertension/hyper lipidemia. Blood pressure well controlled and last lipid panel was within reasonable limits Obstructive sleep apnea. Continue on CPAP machine and no daytime sleepiness. Moderate persistent asthma. She stable when she follows up with jack strip assembler Anxiety/depression . Stable on current regimen. Considering her neuropathy she may be a good candidate for duloxetine which can be added to her regimen and she will check with her psychiatrist. Chronic kidney disease. She is stable and she follows up with daycare teacher to avoid NSAIDs. Right lower extremity swelling. It is nonpitting edema most likely lymphedema. She is on Eliquis and less likely to be a DVT and ultrasound lower extremity was negative. Vaginal candidiasis. She is given fluconazole and advised to control blood sugars 04/18/2024 Anxiety disorder, unspecified (ICD-10 - F41.9) [...] afternoon for breakthrough pains. She follows with [facility] Dr. Iraheta. Chronic kidney disease stage 3. -She does not appear to be in volume overload. Advised appropriate hydration. Avoid NSAIDs. She sees Dr. Lakhani. Asthma. -She uses her inhalers as needed. Follows with Dr. Shipley-[facility] Generalized anxiety disorder. -Mood is stable on Lorazepam 3 times a day. She has a psychiatrist and a therapist. GERD/gastroparesis /dysphagia - Currently she is on omperazole 20m and Reglan 10 MG twice a day. I have increased omperazole to 40mg and advised patient to follow-up with her GI at [facility]. She has an appt in May. MUSA: [...] with diabetic neuropathy. She follows up with [facility] and according to patient her last A1c was within normal range. She is seen fire ranger in the past. She follows up with daycare teacher and kidney function is stable. Foot care discussed with the patient. Hypertension/hyper lipidemia. Blood pressure well controlled and last lipid panel was within reasonable limits Obstructive sleep apnea. Continue on CPAP machine and no daytime sleepiness. Moderate persistent asthma. She stable when she follows up with jack strip assembler Anxiety/depression . Stable on current regimen. Considering her neuropathy she may be a good candidate for duloxetine which can be added to her regimen and she will check with her psychiatrist. Chronic kidney disease. She is stable and she follows up with daycare teacher to avoid NSAIDs. Right lower extremity swelling. [...] afternoon for breakthrough pains. She follows with [facility] Dr. Iraheta. Chronic kidney disease stage 3. -She does not appear to be in volume overload. Advised appropriate hydration. Avoid NSAIDs. She sees Dr. Lakhani. Asthma. -She uses her inhalers as needed. Follows with Dr. Shipley-[facility] Generalized anxiety disorder. -Mood is stable on Lorazepam 3 times a day. She has a psychiatrist and a therapist. GERD/gastroparesis /dysphagia - Currently she is on omperazole 20m and Reglan 10 MG twice a day. I have increased omperazole to 40mg and advised patient to follow-up with her GI at [facility]. She has an appt in May. MUSA: [...] with diabetic neuropathy. She follows up with [facility] and according to patient her last A1c was within normal range. She is seen fire ranger in the past. She follows up with daycare teacher and kidney function is stable. Foot care discussed with the patient. Hypertension/hyper lipidemia. Blood pressure well controlled and last lipid panel was within reasonable limits Obstructive sleep apnea. Continue on CPAP machine and no daytime sleepiness. Moderate persistent asthma. She stable when she follows up with jack strip assembler Anxiety/depression . Stable on current regimen. Considering her neuropathy she may be a good candidate for duloxetine which can be added to her regimen and she will check with her psychiatrist. Chronic kidney disease. She is stable and she follows up with daycare teacher to avoid NSAIDs. Right lower extremity swelling. It is nonpitting edema most likely lymphedema. She is on Eliquis and less likely to be a DVT but considering her history we will do ultrasound right lower extremity in the next few days. 07/31/2024 Chronic kidney disease, stage 3 unspecified [...] and hemoglobin A1c and follows up with [facility] end[facility]. She is seen fire ranger in the past. She follows up with daycare teacher and kidney function is stable. Foot care discussed with the patient. Hypertension/hyper lipidemia. Blood pressure well controlled and last lipid panel was within reasonable limits Obstructive sleep apnea. Continue on CPAP machine and no daytime sleepiness. Moderate persistent asthma. She stable when she follows up with jack strip assembler Anxiety/depression . Stable on current regimen. Considering her neuropathy she may be a good candidate for duloxetine which can be added to her regimen and she will check with her psychiatrist. Chronic kidney disease. She is stable and she follows up with daycare teacher to avoid NSAIDs. Right lower extremity swelling. It is nonpitting edema most likely lymphedema. She is on Eliquis and less likely to be a DVT and ultrasound lower extremity was negative. Vaginal candidiasis. She is given fluconazole and advised to control blood sugars 04/18/2024 Gastroesophageal reflux disease, unspecified whether esophagitis [...] afternoon for breakthrough pains. She follows with [facility] Dr. Iraheta. Chronic kidney [...] patient to follow-up with her GI at [facility]. She has an appt in May. MUSA: [...] afternoon for breakthrough pains. She follows with [facility] Dr. Iraheta. Chronic kidney [...] patient to follow-up with her GI at [facility]. She has an appt in May. MUSA: [...] afternoon for breakthrough pains. She follows with [facility] Dr. Iraheta. Chronic kidney disease stage 3. -She does not appear to be in volume overload. Advised appropriate hydration. Avoid NSAIDs. She sees Dr. Lakhani. Asthma. -She uses her inhalers as needed. Follows with Dr. Shipley-[facility] Generalized anxiety disorder. -Mood is stable on Lorazepam 3 times a day. She has a psychiatrist and a therapist. GERD/gastroparesis /dysphagia - Currently she is on omperazole 20m and Reglan 10 MG twice a day. I have increased omperazole to 40mg and advised patient to follow-up with her GI at [facility]. She has an appt in May. MUSA: [...] afternoon for breakthrough pains. She follows with [facility] Dr. Iraheta. Chronic kidney disease stage 3. -She does not appear to be in volume overload. Advised appropriate hydration. Avoid NSAIDs. She sees Dr. Lakhani. Asthma. -She uses her inhalers as needed. Follows with Dr. Shipley-[facility] Generalized anxiety disorder. -Mood is stable on Lorazepam 3 times a day. She has a psychiatrist and a therapist. GERD/gastroparesis /dysphagia - Currently she is on omperazole 20m and Reglan 10 MG twice a day. I have increased omperazole to 40mg and advised patient to follow-up with her GI at [facility]. She has an appt in May. MUSA: [...] afternoon for breakthrough pains. She follows with [facility] Dr. Iraheta. Chronic kidney disease stage 3. -She does not appear to be in volume overload. Advised appropriate hydration. Avoid NSAIDs. She sees Dr. Lakhani. Asthma. -She uses her inhalers as needed. [facility] [facility] Generalized anxiety disorder. -Mood is stable on Lorazepam 3 times a day. She has a psychiatrist and a therapist. GERD/gastroparesis /dysphagia - Currently she is on omperazole 20m and Reglan 10 MG twice a day. I have increased omperazole to 40mg and advised patient to follow-up with her GI at [facility]. She has an appt in May. MUSA: [...] afternoon for breakthrough pains. She follows with [facility] Dr. Iraheta. Chronic kidney disease stage 3. -She does not appear to be in volume overload. Advised appropriate hydration. Avoid NSAIDs. She sees Dr. Lakhani. Asthma. -She uses her inhalers as needed. Follows with Dr. [facility] Generalized anxiety disorder. -Mood is stable on Lorazepam 3 times a day. She has a psychiatrist and a therapist. GERD/gastroparesis /dysphagia - Currently she is on omperazole 20m and Reglan 10 MG twice a day. I have increased omperazole to 40mg and advised patient to follow-up with her GI at [facility]. She has an appt in May. MUSA: [...] CULTURE 2022 Next Appt Details Provider Name:ELLA Tanner FERNANDA , 11/26/2024 10:00:00 AM, [address] [place] [id number], [place], [address], Insurance Providers Payer Name Payer Address Payer Phone Subscriber Number Group Number Insured Name Patient Relationship to Insured Coverage Start Date Coverage End Date [facility] [address] [place] [address] [id number] Maribell Taylor Self - patient is the insured Medical (General) History Medical History History ICD Code hypertension, benign hyperlipidemia IDDM T 2, [facility] Urinary incontinence and she sees Dr. England at [facility] Left shoulder pain and she sees Dr. Alida villa and she is also seen Dr. Diaz Asthma and she sees Pul at [facility] Generalized anxiety disorder and she is seen by a psychiatrist and she goes to [facility] Pain management and has seen Dr. Montiel at [facility] in past Peripheral arterial disease and status post amputation below knee joint currently on Coumadin and goes to Coumadin clinic Lumbar radiculopathy on oxycodone 30 mg 3 times a day DVT leg LE sleep apnea see Pul at [facility] [place] Left leg amputation below knee joint Chronic kidney disease stage 3, Dr. Janis smalls Personal history of COVID-19 GI- [facility] Surgical History Surgery Date(Month/Year) rotator cuff tear repair September 2017 wrist surgery below the knee amputation 25 11 left side for Blood clots 2/2 to OCP and pt was smoking rt toes amputation 2004 right wrist synovial cyst resection, Dr. Henriquez 2021 right carpal tunnel decompression, Dr. Flores hadley 2021 Hospitalization History Reason Date(Month/Year)
[2024-12-24 10:31] VITALS: BP 119/61; PULSE 78; RESP 18; TEMP 36.1; O2SAT 99; BMI 40.1
--- NOTE | 2024-12-24 11:35 | MHC.SHP ---
Pre-Procedural Eval Section A - 24 Hr Update-Section A only Date of Service: 12/24/24 The patient is an INPATIENT: No Changes since office visit: No Cold of Flu in the past 2 weeks, No New Medical Problems, No Changes in Medication and No Patient answered all questions The patient has been examined within 24 hours of the surgical procedure. The History & Physical has been completed within 30 days and I have reviewed it.: Yes Section B - Complete if H&P > 30 days Chief Complaint: Carpal tunnel syndrome, left upper limb Allergies: Allergies Allergy/AdvReac Type Severity Reaction Status Date / Time octopus Allergy Severe Anaphylaxis Verified 12/05/24 15:02 oxybutynin Allergy Severe Difficulty Verified 12/05/24 15:02 Swallowing tolterodine Allergy Severe Difficulty Verified 12/05/24 15:02 Swallowing aspirin Allergy Unknown anaphylaxis Verified 12/05/24 15:02 citalopram Allergy Unknown Unknown Verified 12/05/24 15:02 empagliflozin (From Allergy Unknown Unknown Verified 12/05/24 15:02 Jardiance) Fish Containing Products Allergy Unknown Unknown Verified 12/05/24 15:02 gabapentin Allergy Unknown hives Verified 12/05/24 15:02 hydrocodone (Vicodin) Allergy Unknown hives Verified 12/05/24 15:02 naproxen (Naprosyn) Allergy Unknown anaphylaxis Verified 12/05/24 15:02 oxycodone (Percocet) Allergy Unknown hives Verified 12/05/24 15:02 pregabalin (From Lyrica) Allergy Unknown Unknown Verified 12/05/24 15:02 sertraline Allergy Unknown Unknown Verified 12/05/24 15:02 shellfish derived Allergy Unknown Unknown Verified 12/05/24 15:02 peanut Allergy Anaphylaxis Verified 12/05/24 15:02 solifenacin AdvReac phlegm Verified 12/05/24 15:02 Vicodin Allergy Unknown hives Uncoded 09/28/24 09:23 Plan Diagnosis/Plan: Unchanged I have reviewed the history and physical and performed a pertinent physical examination on my patient. No changes have occurred unless specified. Time Spent With Patient Time: Total time managing care of this patient today ____ minutes.
--- NOTE | 2024-12-24 11:36 | P.OP_ITS ---
Operative Note Operative Note Date of Service: 12/24/24 Narrative: Preop diagnosis: 1. Left Carpal tunnel syndrome Postop diagnosis: same Procedure: 1. Left Carpal tunnel release Surgeon: Whit Carty MD Pharmacy Services Representative: None Anesthesia: local block using 1% lidocaine with epinephrine Findings: Thickened transverse carpal ligament. EBL: Less than 5 mL Specimens: None Complications: None Disposition: Brought to recovery room in stable condition Plan: Follow-up for 10-14 days for wound check and suture removal Indications: The patient is 64 years old, with left carpal tunnel syndrome that has been unresponsive to nonoperative management. The risks and benefits of operative treatment including but not limited to risk of damage to blood vessels, nerves, tendons, infection, persistent pain, persistent symptoms, or possible need for additional surgery were discussed with the patient and the patient wishes to proceed with surgery. Procedure: Once consent was obtained a local block was performed using a combination of 1% lidocaine with epinephrine. The patient was then brought back to the operating suite and placed on the operative table in supine position. The left upper extremity was prepped and draped in a standard surgical fashion. Once assured that we had a good block, a 2.0 cm longitudinal incision was made centered over the carpal tunnel. The incision was made through the skin to the subcutaneous tissues using a #15 blade. Dissection was made down to the level of the transverse carpal ligament with care being taken to protect the palmar cutaneous nerve. Once the transverse carpal ligament was clearly visualized, a longitudinal incision was made in the transverse carpal ligament 1st using a #15 blade, then using tenotomy scissors under direct visualization. Care was taken to look for and protect the motor branch of the median nerve when seen in this area. Once satisfied with our carpal tunnel release the wound was copiously irrigated with normal saline and hemostasis was obtained with a brief period of local pressure. The skin edges were reapproximated with some 5.0 nylon suture material and a sterile dressing was applied. The patient appears to have tolerated the procedure well and with no complicatio ns. All digits were well vascularized at the conclusion of the case.
[2024-12-24 13:04] VITALS: BP 110/62; PULSE 78; RESP 16; O2SAT 98
== END 2024-12-24 13:06 | disposition home or self-care (01) ==
PROVIDERS: PCP Hospitalist; Visit Provider Orthopaedic Surgery
PROC: (CPT 64721; principal; 2024-12-24 12:20)
DX: G56.02 Carpal tunnel syndrome, left upper limb (principal); R20.0 Anesthesia of skin; R20.2 Paresthesia of skin; K31.84 Gastroparesis; I10 Essential (primary) hypertension; E11.9 Type 2 diabetes mellitus without complications; R32 Unspecified urinary incontinence; Z89.421 Acquired absence of other right toe(s); Z88.5 Allergy status to narcotic agent; Z88.8 Allergy status to other drugs, medicaments and biological substances; Z91.010 Allergy to peanuts; Z91.013 Allergy to seafood; Z98.890 Other specified postprocedural states; Z87.891 Personal history of nicotine dependence
CPT/HCPCS: 64721; J0165; J2003

== ENCOUNTER → 2024-12-24 10:18 | Outpatient (BNV) | payer OTHER, SELFPAY | PROVIDERS: PCP Hospitalist; Visit Provider Orthopaedic Surgery | DX: G56.02 Carpal tunnel syndrome, left upper limb (principal) | CPT/HCPCS: 64721 ==

== ENCOUNTER 2025-01-08 09:16 | Outpatient (AMB) | payer OTHER, SELFPAY ==
--- OUTSIDE RECORDS SUMMARY | 2025-01-02 23:59 | XMS_ITS | Continuity of Care Document ---
Author Organization [facility] Address [address] [place] [id number]- Care Team Providers Care New Grad Rn Name Role Phone Samuel Hilario MD Primary Care Physician [phone] Encounter [facility] Date(s): 12/03/24 - 01/02/25 [facility] [address] [place] [id number] Attending Physician: AdmLewis cast8 Admitting Physician: AdmtrNicole Referring Physician: Admtr, Ar8 [...] Recorded Vaccine Date Status Refusal Reason SARS-CoV-2(COVID-19)mRNA-LNP vac([id number]) 03/08/24 Given influenza virus vaccine, inactivated 03/08/24 Give n Medications Asmanex HFA 100 mcg/inh inhalation aerosol 2 inhalation = 200 mcg, Inhalation, 2 times a day, rinse mouth and throat after use, # 1 each, 6 Refills, Maintenance, 06/27/24 12:48:00 PM EST, Aerosol, [facility] [place], [place] - [phone], Replacing Fluticasone, 158, cm, 05/17/24 10:23:00 EST, [...] 4 Refills, Maintenance, 03/22/22 1:50:00 PM EST, [facility], [place], [place] - [phone], Partial fill upon patient requestif the prescription [...] Soft Stop, 09/16/20 9:26:00 PM EDT, Tablet, [facility]/pharmacy #[id number], Partial fill upon patient request if the [...] Status: Ordered Repeat number: 1 Freestyle Antonio 2 Plus Sensor Freestyle Antonio 2 Plus Sensor, See Instructions, # 6 each, Refills 3, Tot. Refills 3, Maintenance, use as directed for diabetes control. 90 day supply. change every 15 days. E11.9, 12/03/24 4:47:00 PMEDT, Supply, 157, cm, 12/03/24 16:22:00 EDT, Height, 101, kg, 08/02/24 12:59:00 EDT, Dry Weight Start Date: 12/03/24 Status: Ordered Quantity: 6.0 Unit: each Repeat number: 4 Freestyle Antonio Monitor See Instructions, # 1 each, Refills 0, Tot. Refills 0, Maintenance, use as directed for Type 2 Diabetes Mellitus, E11.9, 07/12/23 1:42:00 PM EST, Supply, 158, cm, 06/08/23 12:26:00 EST, Height, 99.8, kg, 12/18/21 8:59:00 EDT, Dry Weight Start Date: 07/12/23 Stop Date: 08/11/23 Status: Ordered Quantity: 1.0 Unit: each Repeat number: 1 Freestyle Lite Test Strips See Instructions, # [...] Ordered Repeat number: 1 hydrocortisone/neomycin/polymyxin B otic 1%-0.35%-86877 u/ml suspension INSTILL 4 DROP IN THE AFFECTED EAR 3 (THREE) TIMES A DAY FOR 7 DAYS Start Date: 06/08/23 Status: Ordered Repeat number: 1 HydrOXYzine = 25 mg, By Mouth, Daily, as needed for anxiety., 0 Refills, Maintenance, 09/04/19 2:18:00 PM EDT Start Date: 09/04/19 Status: Ordered Repeat number: 1 lidocaine 2% topical gel with applicator 10 [...] Refills, Maintenance,05/17/24 10:49:00 AM EST, ER [facility], [place], [place] - [phone], Partial fill upon patient request if the [...] Date: 03/06/18 Status: Ordered Repeat number: 1 Mounjaro 2.5 mg/0.5 mL subcutaneous solution = 2.5 mg, Subcutaneous Injection, Every week, rotate injection sites. please call office in 3-4 weeks if tolerating dose for increase in dose., # 4 each, 5 Refills, Maintenance, 12/05/24 12:56:00 PM EDT, Solution, [place], [place] - [phone], Partial fill upon patient request if the prescription is for a schedule II opioid drug., 157, cm, 12/03/24 16:22:00 EDT, Height, 101, kg, 08/02/24 12:59:00 EDT, Dry Weight Start Date: 12/05/24 Status: Ordered Quantity: 4.0 Unit: each Repeat number: 6 Nebulizer Supplies Nebulizer Supplies, See Instructions, # [...] Quantity: 60.0 Unit: tablet Repeat number: 1 pantoprazole 40 mg oral delayed release tablet [...] 12:24:00 PM EST, Route to Pharmacy Electronically, [id number], [place], [place] - [id number], 158, cm, 11/03/21 9:54:00 EDT, Height, 99.8, kg, 12/18/21 8:59:00 EDT, Dry Weight Start Date: 03/22/22 Status: Ordered Quantity: 1.0 Unit: each Repeat number: 7 Serevent Diskus 50 mcg inhalation powder 1 puffs, Inhalation, Every 12 hours, # 60 Unknown, 0 Refills, Maintenance, 03/22/22 9:01:00 AM EST,[facility], 30, INHALE 1 PUFF BY MOUTH INTO THE lungs EVERY TWELVE HOURS, 158, cm, 11/03/21 9:54:00 EDT, Height, 99.8, kg, 12/18/21 8:59:00 EDT, Dry Weight Start Date: 03/22/22 Status: Ordered Quantity: 60.0 Unit: Unknown Repeat number: 1 triamcinolone 0.025% topical cream 1 application, Topically, 3 times a day, PRN Itch, # 60 Gm, 0 Refills, Maintenance, 09/16/20 9:27:00PM EDT, Cream, [facility]/pharmacy #[id number], Partial fill upon patient request if the [...] (obstructive sleep apnea) Confirmed Active Severe obesity Confirmed Active Shoulder pain, bilateral Confirmed Active Thrombophilia Confirmed Active Controlled type 2 diabetes mellitus Confirmed Active Type 2 diabetes mellitus Confirmed Active Social History Social History Type Response Smoking Status Former smoker, quit more than 30 days ago entered on: 03/08/24 Sex Sex Representation Female (finding) Patient Care team information Care Team Personnel Name: Lacey Lopez Position: [facility] Outreach Member Role: Lifetime Consulting Physician Name: Samuel Hilario MD Position: [facility] Physician - Primary Care Member Role: PCP Address: [address] [place] [address] [address] [place], [place] [address] Telecom: Name: Coty Steve Position: [facility] Outreach Member Role: Lifetime Consulting Physician Name: Rukhsana Taylor RN Position: [facility] AMB Nurse Member Role: Primary Care Nurse Name: Nata Gottlieb Position: [facility] Outreach Member Role: Lifetime Consulting Physician Name: Juana Ramirez RN Position: [facility] AMB Nurse Member Role: Primary Care Nurse Care Team Related Persons Name: TEJ TAYLOR Name: JUAN TAYLOR Insurance Providers Guarantor name: ZOIE TAYLOR Health Plan Information #: 1 Payer: [employer] Payer Identifier: NA Member Number: [id number] Group Number: [id number] Subscriber Identifier: [id number] Relationship to Subscriber: self Coverage Type: Medicaid (Managed Care) Coverage Verification Date: NA Telecom: NA Address: NA
[2025-01-08 10:10] VITALS: BMI 40.1
--- NOTE | 2025-01-08 10:10 | MHC.OFFVIS ---
Vital Signs 01/08/25 10:10 Height 5 ft 2 in Weight 219 lb BMI 40.1 Intake Visit Reasons: PO LT CTR 12/24/24 AR Intake Note: Mariebll is a 64 year old right hand dominant female who presents today post-operatively status post Left Carpal Tunnel Release performed by Dr. Carty on 12/24/24. Patient reports today she is doing great. Denies stiffness, numbness, tingling, finger locking. She is taking Tylenol when needed with relief. Sutures were removed and steri strips applied. Allergies octopus Allergy (Severe, Verified 01/08/25 10:11) Anaphylaxis oxybutynin Allergy (Severe, Verified 01/08/25 10:11) Difficulty Swallowing tolterodine Allergy (Severe, Verified 01/08/25 10:11) Difficulty Swallowing aspirin Allergy (Unknown, Verified 01/08/25 10:11) anaphylaxis citalopram Allergy (Unknown, Verified 01/08/25 10:11) Unknown empagliflozin (From Jardiance) Allergy (Unknown, Verified 01/08/25 10:11) Unknown Fish Containing Products Allergy (Unknown, Verified 01/08/25 10:11) Unknown gabapentin Allergy (Unknown, Verified 01/08/25 10:11) hives hydrocodone (Vicodin) Allergy (Unknown, Verified 01/08/25 10:11) hives naproxen (Naprosyn) Allergy (Unknown, Verified 01/08/25 10:11) anaphylaxis oxycodone (Percocet) Allergy (Unknown, Verified 01/08/25 10:11) hives pregabalin (From Lyrica) Allergy (Unknown, Verified 01/08/25 10:11) Unknown sertraline Allergy (Unknown, Verified 01/08/25 10:11) Unknown shellfish derived Allergy (Unknown, Verified 01/08/25 10:11) Unknown peanut Allergy (Verified 01/08/25 10:11) Anaphylaxis solifenacin Adverse Reaction (Verified 01/08/25 10:11) phlegm Vicodin Allergy (Unknown, Uncoded 01/08/25 10:11) hives HPI HPI PO LT CTR 12/24/24 AR: Details: Maribell is a 64 year old right hand dominant female who presents today post-operatively status post Left Carpal Tunnel Release performed by Dr. Carty on 12/24/24. Patient reports today she is doing great. Denies stiffness, numbness, tingling, finger locking. She is taking Tylenol when needed with relief. Sutures were removed and steri strips applied. [facility] Medical History Amputated toe of right foot Ganglion cyst Gastroparesis COVID-19 HTN (hypertension) Diabetes mellitus Urinary incontinence UTI (urinary tract infection) Surgical History History of left below knee amputation S/P carpal tunnel release History of surgical removal of ganglion cyst S/P rotator cuff repair History of surgery Social History Are you a primary property caretaker to a significant other at home: No Do you presently have visiting nurse or other home services: No Alcohol intake: never Patient Tobacco Use Status: Former Tobacco user Substance Use Type: Marijuana Current occupational status: disabled Current occupation: rt handed Review of Systems Const All systems reviewed & are unremarkable except as noted in HPI and below Physical Exam Vital Signs: BMI result Body Mass Index 40.1 Extrem Other: Patient is alert, oriented, and in no acute distress. Neuro: Normal sensation of the tips of all digits of the left hand at this time Vascular: Cap refill brisk Pain: No tenderness to palpation about the incision site on left volar wrist ROM: Patient is able to make a closed fist and extend all digits of the left hand fully Skin: Well approximated and well healing incision site noted on the volar left wrist No lacerations or abrasions. General: No ecchymosis, erythema, or evidence of infection. Psych: Appears grossly normal Affect normal Attitude cooperative Assessment & Plan Assessment & Plan (1) Carpal tunnel syndrome: Code(s): G56.00 - Carpal tunnel syndrome, unspecified upper limb Category: Medical Plan 1. Status post left carpal tunnel release DOS 12/24/2024 With complete symptom resolution postoperatively Patient appears to be recovering well postoperatively Patient is educated about the typical recovery course No under water for one-week, 2 lb weight limit for 2 weeks No acute follow-up indicated, as patient appears to be recovering quite well Patient is amenable to this plan 2. Right carpal tunnel syndrome Intermittent, daily, worse at night I educated the patient about the condition. I discussed both operative and nonoperative treatment options. The patient would like to proceed with surgery. The risks and benefits of operative treatment were discussed with the patient and the patient wishes to proceed with surgery. These risks include, but are not limited to, risk of damage to blood vessels, nerves, tendons, infection, recurrence, incomplete relief of preoperative symptoms, persistent pain, possible need for further surgery, and the risks associated with regional blocks and/or anesthesia. Plan is to take the patient to the operating room at some point in the next few weeks for the following procedures: 1. Right carpal tunnel release under local All of the preoperative paperwork including the consent was discussed today. All of the patient's questions were answered in the clinic today. The patient understands that they will be in contact with our certified surgical technologist to discuss scheduling their procedure. Patient does have diabetes, last A1c 6.6 Patient reports Eliquis 5 mg p.o. b.i.d. Patient denies asthma, lung issues, kidney issues, or current smoking. Coding Level of Care Code Est Pt Level 4 (99129) Diagnoses Carpal tunnel syndrome G56.00
--- OUTSIDE RECORDS SUMMARY | 2025-01-08 10:10 | XMS_ITS | Clinical Summary ---
Author Organization [address] [facility] Address [address] [place] [address] Phone Care Team Providers Care Blade Balancer Name Role Phone Samuel Hilario MD Primary Care Provider [phone] Allergies Active Allergy Reactions Criticality Noted Date [...] that time. All questions answered. Diabetic gastroparesis ([facility] V24, [facility] V28 ) 08/25/2022 Prurigo nodularis 11/13/2016 Overview [...] 2 diabetes mellitus wit h neurological manifestations ([facility] V24, [facility] V28) 03/29/2014 Overview (03/27/2024): Left stump neuropathy Intolerant metformin Refused increase med. See Tel. 02/02/16 Urinary incontinence 03/29/2014 Overview (03/27/2024): Darline. Changed to [place] Panic attacks 03/29/2014 Overview (03/27/2024): Sees psych Morbid obesity ([facility] V24, [facility] V28) 2013 Overview (03/27/2024): BMI 43.0 on 02/07/14 per transfer records MUSA (obstructive sleep apnea) 03/18/2014 Lumbosacral spondylosis without myelopathy 03/18 Eczema 03/18/2014 History of leg amputation ([facility] V24, [facility] V28) 03/18/2014 Overview (03/27/2024): BKA 08/10/11 left Lumbago 04/16/2009 S/P BKA (below knee amputation) ([facility] V24, S/[facility] V28) 12/30/2008 Overview (03/27/2024): left Sleep apnea 09/01/2005 Overview (03/27/2024): uses CPAP IMO update 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 ([facility] V24, [place] V28) 08/19/2005 Overview (03/27/2024): from birthcontrol.had amputation on 10/11.on coumadin since October previous pcp dr ANA ignacio u/s negative in [place] 08/16/05 plastic sugeon for wound care s/p amputation.sees dr loyd for infection suresh gray is her plastic surgeon just finished reconstruciton Heartburn 08/19/2005 Phantom limb syndrome ([place] V24, [place] V28) 08/19/2005 Overview (03/27/2024): IMO update Asthma 08/19/2005 Depressive disorder 08/19/2005 Overview (03/27/2024): Shannon hernandez,[facility].they give wellbutrin,remerenon,seroquel Encounters Date Type Department Care Team Description 12/20/2024 1:45 PM EDT Office Visit Orthopedic Surgery - [address] [phone] Nolberto Cruz, DPM Dermatophytosis of nail (Primary Dx); Acquired hammer toe of right foot; Type II diabetes mellitus with peripheral circulatory disorder ([place] V24, [place] V28); Diabetic mononeuropathy simplex ([place] V24, [place] V28); Hx of BKA, left ([place] V24, [place] V28); Corns and callosities from Last 3 Months [...] Date Site/Laterality Comments ENDOMETRIAL ABLATION 2006 PROCEDURE: AK ENDOMETRIAL ABLTJ THERMAL W/O HYSTEROSCOPIC GUID; COMMENT: Whit OTHER SURGICAL HISTORY 2011 Left PROCEDURE: HISTORICAL BELOW KNEE AMP; COMMENT: vascular problems COLONOSCOPY 08/20/2008 PROCEDURE: HISTORICAL COLONOSCOPY; COMMENT: normal TUBAL LIGATION PROCEDURE: HISTORICAL TUBAL LIGATION CARPAL TUNNEL RELEASE 2021 PROCEDURE: AK NEUROPLASTY &/TRANSPOS MEDIAN NRV CARPAL TUNNE Medical History Medical History Date Comments 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 V24, [facility] V28) DX:Arterial embolism and thr ombosis of lower extremity (HCC) Left hip pain DX:Left hip pain Amenorrhea DX:Amenorrhea Chronic abdominal pain DX:Chroni c abdominal pain Asthma DX:Asthma Obesity DX:Obesity Amputation of leg ([facility] V 24, [facility] V28) DX:Amputation of leg ([facility]) Incontinence DX:Incontinence Otitis media DX:Otitis media Pelvic pain DX:Pelvic pain Left shoulder pain DX:Left shoul krystle pain Sleep apnea DX:Sleep apnea; COMMENT: CPAP Historical Medical DX 2004 DX:HTN; CO MMENT: Metropolol and Buspar Rotator cuff tear 05/18/2014 DX:Rotator cuf f tear; COMMENT: Chronic anterior/superior tear, managed medically Carpal tunnel syndrome 05/18/2014 DX:Carpal tunnel syndrome; COMMENT: left History of leg amputation ([facility] V24, [facility] V28) 03/18/2014 DX:History of leg amputation (HCC); COMMENT: BKA 08/10/11 (leg not specified) History of pulmonary embolism 03/18/2014 DX :History of pulmonary embolism; COMMENT: 2011 MUSA (obstructive sleep apnea) 03/18/2014 DX :MUSA (obstructive sleep apnea) Impaired fasting glucose 03/18/2014 DX:Impa ired fasting glucose Lumbosacral spondylosis with out myelopathy 03/18/2014 DX:Lumbosacral spondylosis w ithout myelopathy Eczema 03/18/2014 DX:Eczema Morbid obesity (CMS/HCC V24, [facility] V28) 03/18/2014 DX:Morbid obesity (HCC); COM MENT: BMI 43.0 on 02/07/14 Hypertension DX:Hypertension Type 2 diabetes mellitus wit hout complications ([facility] V24, [facility] V28) DX:Type 2 diabetes mellitus without complications (HCC) Diabetic gastroparesis (CMS/ HCC V24, CMS/HCC V28) 08/25/2022 DX:Diabetic gastroparesis (H CC) Family [...] on file Not on file Obstetrics History * This document contains information received from the source organization and may not represent a complete record from that organization. Para Term AB IAB SAB Ectopic Multiple Livin g Live Births 3 Date Outcome GA Total Labor Labor/2nd/3rd Weight Sex Type Anes PTL Mi A1 A5 Name Clin 2009 Last Filed Vital Signs Vital Sign Reading [...] Care Team (Late st Contact Info) Description 03/25/2025 2:30 PM EST Office Visit Orthopedic Surgery - [place] [address] [facility] [address] [place] [address] [place] [phone] Nolberto Cruz, DPM [address] [phone] Health Maintenance Due Date Last Done Comments Diabetes: Annual GFR (Glomerular Filtration Rate) 1962 Diabetes: Annual Foot Exam 1972 Diabetes: Annual Retina Eye Exam 1972 Pneumococcal Vaccine: 50+ Years (2 of 2 - PCV) 04/29/2015 04/29/2014 Cholesterol Screening (Lipid Panel) 04/17/2022 02/25/2017 Colorectal Cancer Screening: Colonoscopy 04/17/2022 HIV Screening 04/17/2022 Social Influencers of Health Screening 04/17/2022 Diabetes: Blood Sugar Control Test (HGBA1C) 04/24/2022 06/17/2021, 02/25/2017 Hypertension/CHF/CAD Annual BMP Blood Test 04/24/2022 Depression Screening 05/09/2024 08/19/2005 Influenza Vaccine (#1) 2025 4, 04/15/2022, 05/10/2021, Additional history exists DTaP,Tdap,and Td Vaccines (2 - Td or Tdap) 04/17/2025 04/17/2015 Diabetes: Annual Urine Albumin-Creatinine Ratio (uACR) 11/07/2025 11/07/2024, 02/25/2017 Breast Cancer Screening 08/20/2026 08/21/19, 10/21/2020, 08/22/2018, [...] mammogram BILATERAL in 1 year. Mammography location: [facility] at [address], [address] -------- FINAL REPORT -------- Dictated By: Sd Restrepo Dictated Date: 08/20/2024 16:32 ET Assigned Physician: Sd Restrepo Reviewed and Electronically Signed By: Sd Restrepo Signed Date: 08/20/2024 16:39 ET Workstation ID: [id number] Transcribed By: Self Edit Transcribed Date: 08/20/2024 16:32 ET Narrative 08/20/2024 4:39 PM EDT EXAM: SCREENING MAMMOGRAPHY, BILATERAL HISTORY: SCREENING. Paternal aunt diagnosed with breast cancer age 39 COMPARISON: 10/21/20 TECHNIQUE: Synthesized CC and MLO projections of each breast. Tomosynthesis of each breast in the CC and MLO projections. ADDITIONAL IMAGING: None Computer-aided detection was employed with the OptiNose AI 3-D. TISSUE DENSITY: The breasts are [...] None Computer-aided detection was employed with the [employer] AI 3-D. TISSUE DENSITY: The breasts are [...] year. [facility] [address] [place], [address] -------- FINAL REPORT -------- Dictated By: Sd Restrepo Dictated Date: 08/20/2024 16:32 ET Assigned Physician: Sd Restrepo Reviewed and Electronically Signed By: Sd Restrepo Signed Date: 08/20/2024 16:39 ET Workstation ID: [id number] Transcribed By: Self Edit Transcribed Date: 08/20/2024 16:32 ET Betty Matt CNM IMG BI PROCEDURES Final Resul t * HPV with reflex genotype (08/07/2024 2:32 PM EDT) [facility] HPV Negative Negative LAB MICROBIOLOGY METHOD 08/08/2024 1:09 PM EDT [facility] Brushing/Spatula Cervix uteri structure / Unknown 08/07/2024 2:32 PM EDT 08/08/2024 6:17 AM EDT Betty Matt CNM LAB MOLECULAR DIAGNOSTICS ORD ERABLES Final Result [facility] [address] [place] [address], * HM Urine Albumin Creatinine Ratio (02/25/2017) Pathologist [facility] Urine Albumin Creatinine Ratio abstracted Historical Provider HEALTH MAINTENANCE Final Result * (ABNORMAL) Hemoglobin A1c (02/25/2017) [facility] Hemoglobin A1C 7.4(A) 4.0 - 6.0 % Blood Venous blood specimen / Unknown Historical Provider LAB BLOOD ORDERABLES Jessy l Result * (ABNORMAL) Lipid panel (02/25/2017) [facility] LDL/HDL Ratio 4 0 - 4 Triglycerides 280(A) 0 - 150 mg/dL Cholesterol 110 0 - 200 mg/dL HDL 29(A) >=40 mg/dL LDL Cholesterol 25 0 - 100 mg/dL Blood Venous blood specimen / Unknown Historical Provider LAB BLOOD ORDERABLES Jessy l Result * Hepatitis C Screening (01/02/2016) Pathologist [facility] Hepatitis C Screening abstracted [facility] Provider HEALTH MAINTENANCE Final Result * Depression Screening (08/19/2005) Pathologist [facility] Depression Screening abstracted [facility] Provider HEALTH MAINTENANCE Final Result from Last 3 Months or Most Recently Relevant to Health Maintenance Insurance [facility] [employer] Care Teams Blade Balancer Relationship Specialty Start Date End Date Samuel Hilario MD [address] [place] [phone] PCP - General Internal Medicine 03/19/20
--- OUTSIDE RECORDS SUMMARY | 2025-01-08 10:10 | XMS_ITS | Clinical Summary ---
Author Organization [facility] Address [address] [place] [phone] Phone Care Team Providers Care Certified Medical Coding Specialist Name Role Phone Samuel Hilario MD Primary Care Provider [phone] Allergies Active Allergy Reactions Criticality Noted Date [...] DAY NEEDED 1 Active Comfort EZ Pen [place] 32G X 4 MM [facility] 2 Active Easy Comfort Lancets [facility] 2 Active gemfibrozil (LOPID) 600 MG tablet [...] incontinence 03/29/2014 Overview (09/06/2022): [place]. Changed to [place] Panic attack 03/29/2014 Overview (09/06/2022): Sees psych [...] Encounters Date Type Department Care Team Description 12/07/2024 Orders Only [facility] [address] [phone] Racheal Wood ARNP Stage 3a chronic kidney disease (HCC); Hypertension from Last 3 Months Family History Medical [...] [facility] [address] [phone] Racheal Wood ARNP [address] [phone] Health Maintenance Due Date Last [...] Creatinine, Ur 76.5 Not Estab. mg/dL [facility] Protein, Ur 29.8 Not Estab. mg/dL [facility] Urine Protein/Creati nine Ratio 390(H) 0 - 200 mg/g creat [facility] 11/07/2024 9:01 AM EDT 11/07/2024 [facility] LAB URINE ORDERABLES Final Result Performing Organization Address City/[facility] Co de Phone Number [facility] [address] [place] [address] * (ABNORMAL) Urine Albumin / Creatinine Ratio (11/07/2024 9:01 AM EDT) Albumin, Urine 35.1 Not Estab. ug/mL [facility] Albumin/Creatin ine Ratio 46(H) 0 - 29 mg/g creat [facility] Comment: Normal: 0 - 29 Moderately increased: 30 - 300 Severely increased: >300 11/07/2024 9:01 AM EDT 11/07/2024 [facility] LAB URINE ORDERABLES Final Result Performing Organization Address [facility] Co de Phone Number [facility] [address] [place] [address] * CBC (11/07/2024 9:01 AM EDT) WBC 9.5 3.4 - 10.8 x10E3/uL [facility] RBC 4.38 3.77 - 5.28 x10E6/uL [facility] Hemoglobin 13.3 11.1 - 15.9 g/dL [facility] Hematocrit 40.9 34.0 - 46.6 % [facility] MCV 93 79 - 97 fL [facility] [place] MCH 30.4 26.6 - 33.0 pg [facility] MCHC 32.5 31.5 - 35.7 g/dL [facility] RDW 12.6 11.7 - 15.4 % [facility] Platelets 244 150 - 450 x10E3/uL [facility] 11/07/2024 9:01 AM EDT 11/07/2024 [facility] LAB BLOOD ORDERABLES Final Result [facility] [address] [place] [address] * PTH, Intact (11/07/2024 9:01 AM EDT) PTH 35 15 - 65 pg/mL [facility] 11/07/2024 9:01 AM EDT 11/07/2024 [facility] LAB BLOOD ORDERABLES Final Result Performing Organization Address [facility] Co de Phone Number [facility] [address] [place] [address] * Magnesium (11/07/2024 9:01 AM EDT) Magnesium 1.7 1.6 - 2.3 mg/dL [facility] 11/07/2024 9:01 AM EDT 11/07/2024 [facility] LAB BLOOD ORDERABLES Final Result Performing Organization Address City/[facility]/ZIP Co de Phone Number [facility] [address] [place] [address] * (ABNORMAL) Renal Function Panel (11/07/2024 9:01 AM EDT) Glucose 196(H) 70 - 99 mg/dL [facility] BUN 20 8 - 27 mg/dL [facility] Creatinine 1.17(H) 0.57 - 1.00 mg/dL [facility] eGFR CKD-EPI CR 2020 53(L) >59 mL/min/1.7 3 [facility] BUN/Creatinine Ratio 17 12 - 28 [facility] Sodium 138 134 - 144 mmol/L [facility] Potassium 4.5 3.5 - 5.2 mmol/L [facility] Chloride 102 96 - 106 mmol/L [facility] Bicarbonate (CO2) 20 20 - 29 mmol/L [facility] Calcium 9.7 8.7 - 10.3 mg/dL [facility] Albumin 4.0 3.9 - 4.9 g/dL [facility] Phosphorus 3.7 3.0 - 4.3 mg/dL [facility] 11/07/2024 9:01 AM EDT 11/07/2024 Racheal Wood [facility] LAB BLOOD ORDERABLES Final Result [facility] [address] [place] [address] * (ABNORMAL) Hemoglobin A1c (06/17/2021 4:28 PM EST) Hemoglobin A1C 9.2(H) (4.0-5.6) % [facility] Comment: MONITORING: In known diabetic patients, hemoglobin A1c targets should be discussed with health care provider. DIAGNOSTIC USE: The [place] [employer] (ADA) and the World Health [...] Supplement 1 Testing performed or reported by [facility], a Service of [facility], [address] [place] [address] Bertin Bethea MD, [employer] [facility]# [id number] Blood specimen (specimen) Venous blood / Unknown 06/17/2021 4:28 PM EST 06/17/2021 4:29 PM EST us Feroz Lakhani MD LAB BLOOD ORDERABLES Final Re sult [facility] from Last 3 Months or Most Recently Relevant to Health Maintenance Insurance [employer] Care Teams Certified Medical Coding Specialist Relationship Specialty Start Date End Date Samuel Hilario MD [address] [place] [address] PCP - General Internal Medicine 05/26/21
--- OUTSIDE RECORDS SUMMARY | 2025-01-08 10:10 | XMS_ITS | Patient Health Record ---
Author Organization [facility] Address [address] [place] [address] Care Team Providers Care Event Lighting Specialist Name Role Phone ELLA MICHAEL Primary Care Provider Adolfo Vilchis Unavailable [phone] Allergies Allergen (clinical drug ingredient) Drug/Non Drug [...] Results Component Value Reference Range Notes Hemoglobin [id number] Reviewed date:02/20/2024 08:28:37 AM Interpretation: Performing Lab:[facility], [address] [facility], Phone - [phone], Director - Mohsen Notes/Report: Hemoglobin A1c 6.1 4.8-5.6 % . Prediabetes: 5.7 - 6.4 Diabetes: >6.4 Glycemic control for adults with diabetes: <7.0 Hemoglobin [id number] Reviewed date:08/04/2024 01:31:25 PM Interpretation: Performing Lab:[facility], [address] [facility], Phone - [phone], Director - Mohsen Notes/Report: Hemoglobin A1c 7.1 4.8-5.6 % . Prediabetes: 5.7 - 6.4 Diabetes: >6.4 Glycemic control for adults with diabetes: <7.0 Albumin/Creatinine Ratio,[facility] [id number] Reviewed date:08/04/2024 01:31:32 PM Interpretation: Performing Lab:[facility], [address] [place] [address], Phone - [phone], Director - Mohsen Notes/Report: Creatinine, Urine 88.2 Not Estab. mg/dL Albumin, Urine 19.2 Not Estab. ug/mL Alb/Creat Ratio 22 0-29 mg/g creat Normal: 0 - 29 Moderately increased: 30 - 300 Severely increased: >300 Albumin/Creatinine Ratio,Ur [id number] Reviewed date:09/03/2024 02:43:41 PM Interpretation: Performing Lab:[facility], [address] [place] [address], Phone - [phone], Director - Mohsen Notes/Report: Creatinine, Urine 75.8 Not Estab. mg/dL Albumin, Urine 24.0 Not Estab. ug/mL Alb/Creat Ratio 32 0-29 mg/g creat Normal: 0 - 29 Moderately increased: 30 - 300 Severely increased: >300 Lipid Panel-[id number] Reviewed date:09/03/2024 02:43:34 PM Interpretation: Performing Lab:[facility], [address] [place] [address], Phone - [phone], Director - Mohsen Notes/Report: Cholesterol, Total 126 100-199 mg/dL Triglycerides 205 0-149 mg/dL HDL Cholesterol 38 >39 mg/dL VLDL Cholesterol Timothy 33 5-40 mg/dL LDL Chol Calc (NIH) 55 0-99 mg/dL Lipid Panel-[id number] Reviewed date:08/26/2024 07:23:29 AM Interpretation: Performing Lab:[facility] [address] [place] [address], Phone - [phone], Director - Mohsen Notes/Report: Cholesterol, Total 125 100-199 mg/dL Triglycerides 203 0-149 mg/dL HDL Cholesterol 39 >39 mg/dL VLDL Cholesterol Timothy 33 5-40 mg/dL LDL Chol Calc (NIH) 53 0-99 mg/dL Lipid Panel-[id number] Reviewed date:08/16/2024 04:22:18 PM Interpretation: Performing Lab:[facility], [address] [facility], Phone - [phone], Director - MDNigel Notes/Report: Cholesterol, Total 132 100-199 mg/dL Triglycerides 228 0-149 mg/dL HDL Cholesterol 38 >39 mg/dL VLDL Cholesterol Timothy 37 5-40 mg/dL LDL Chol Calc (NIH) 57 0-99 mg/dL Comp. Metabolic Panel (14)-3 Reviewed date:08/04/2024 01:36:37 PM Interpretation: Performing Lab:[facility], [address] [facility], Phone - [phone], Director - MDNigel Notes/Report: Glucose 101 70-99 mg/dL BUN 19 [...] 0-40 IU/L ALT (SGPT) 46 0-32 IU/L Comp. Metabolic Panel (14)- Reviewed date:09/03/2024 02:43:50 PM Interpretation: Performing Lab[facility], [address] [facility], Phone - [phone], Director - MDSvitlanay Notes/Report: Glucose 145 70-99 mg/dL BUN 21 [...] 0-40 IU/L ALT (SGPT) 38 0-32 IU/L PAP SMEAR Reviewed date:08/09/2024 01:14:25 [...] screening system. Technical cytopathology services provided by [facility], at [address] [place] [address] (CLIA # [id number]/Omi Connelly MD, Marketing Content Manager.) Console Pap Interpretation Reported General Categorization Negative MG MAMMO DIGITAL SCREENING W TONG BILAT Reviewed date:08/22/2024 02:13:16 PM Interpretation: Performing Lab: Notes/Report: Note See Note [facility], a member of [facility] Patient Name: MARIBELL TAYLOR Date of : 1960 Reason for Exam: Breast cancer screen, avg risk, asymptomatic (Age => 42y) Exam Date: 08/20/2024 [id number] EST Report Status: Final Ordering Provider: TONY [...] Mamm[facility] location: [facility] [address], [address] -------- FINAL REPOR T -------- Dictated By: Sd Holbrook Dictated Date: 08/20/2024 16:32 ET Assigned Physician: Sd Restrepo Reviewed and Electronically Signed By: Sd Restrepo Signed Date: 025 16:39 ET Workstation ID: [id number] Transcribed By: Self Edit Transcribed Date: 08/20/2024 16:32 ET HPV WITH REFLEX GENOTYPE Reviewed date:08/08/2024 01:37:20 PM Interpretation: Performing Lab: Notes/Report: HPV Negative Negative Reason For Referral Reason Evaluation and manag ement - Dr Cruz Diagnosis 1 Other hammer toe(s) (acquired), right foot (M20.41) Referral Organization [facility] Referring Provider First Name ELLA Referring Provider Last Name [facility] Referring Provider [facility]erred Provider Specialty Podiatry General Notes Referral sent to [facility] General Surgery in [place] - Office will call patient for scheduling.Janene [...] Low back pain (M54.5 ) Referral Organization [facility] Referring Provider First Name ELLA Referring Provider Last Name [facility] Referring Provider Speciality Internal M edicine Referred Provider Specialty Pain Medicin e General Notes Referral sent to [facility] in [place] - Office will call patient for scheduling., [...] as directed; Duration: 100 days 11/26/2024 Active Fluticasone Propionate 50 MCG/ACT SPRAY TWICE [...] times a day 30; Duration: 30 Active Omeprazole 40 mg TAKE 1 CAPSULE BY MOUTH 1/2 TO 1 HOUR BEFORE BREAKFAST; Duration: 30 Active Montelukast Sodium 10 mg TAKE 1 TABLET B Y MOUTH ONCE A DAY; Duration: 30 days Active FreeStyle Lite Test - USE TO TEST FINGER STICK BLOOD SUGAR 3 (THREE) TIMES A DAY; Duration: 33 Active Cephalexin 500 MG 1 capsule Orally [...] a day; Duration: 7 days 12/06/2023 Not-Taking Shyplbfs-Trbkihqmz-DE 1 % 4 drops into affected ear [...] 4 hours,PRN:for wheezing; Duration: 17 Not-Taking Nystatin-Triamcinolone 171304-4.1 UNIT/GM 1 application Externally Twice a day; [...] as needed Orally Once a day Not-Taking Diclofenac Sodium 1 % as directed Externally 2 times a day; Duration: 30 days Active Fluconazole 150 mg TAKE 1 TABLET BY MOUTH EVERY 3 DAYS; Duration: 3 Active True Comfort Pen [place] 32G X 4 MM USE TO INJECT [...] W/U Status Risk Notes Problem Diabetic neuropathy (332541958) Diabetes mellitus due to underlying condition with diabetic neuropathy, unspecified (E08.40) Active confirmed Problem Morbid obesity (disorder) (740627601) Morbid (severe) obesity due to excess calories (E66.01) Active confirmed Problem Anxiety disorder (846757664) Anxiety disorder, unspecified (F41.9) Active confirmed Problem Essential tremor (788419811) Essential tremor (G25.0) Active confirmed Problem Insomnia (909778706) Insomnia, unspecified (G47.00) Active confirmed Problem Obstructive sleep apnea syndrome (37913174) Obstructive sleep apnea (adult) (pediatric) (G47.33) Active confirmed Problem Essential hypertensi on (00398192) Essential (primary) hypertension (I10) Active confirmed Problem Chronic kidney disea se due to hypertension (006946209655182) Hypertensive chronic kidney disease with stage 1 through stage 4 chronic kidney disease, or unspecified chronic kidney disease (I12.9) Active confirmed Problem Peripheral vascular disease (523377157) Peripheral vascular disease, unspecified (I73.9) Active confirmed Problem Embolism from thrombosis of vein of lower extremity (853145507) Chronic embolism and thrombosis of unspecified deep veins of unspecified lower extremity (I82.509) Active confirmed Problem Uncomplicated mild persistent asthma (426082320) Mild persistent asthma, uncomplicated (J45.30) Active confirmed Problem Polyp of colon (39132196) Polyp of colon (K63.5) Active confirmed Problem Acquired hammer toe of right foot (9709144378299533) Other hammer toe(s) (acquired), right foot (M20.41) Active confirmed Problem Shoulder joint pain (955907152) Pain in left shoulder (M25.512) Active confirmed Problem Lumbosacral radiculopathy (6135730) Radiculopathy, lumbosacral region (M54.17) Active confirmed Problem Dysphagia (32918913) Dysphagia, unspecified (R13.10) Active confirmed Problem Paresthesia (finding ) (59121317) Paresthesia of skin (R20.2) Active confirmed Problem Amputated below knee (318472559) Acquired absence of left leg below knee (Z89.512) Active confirmed Problem Pure hypercholesterolemia (792925843) Pure hypercholesterolem ia, unspecified (E78.00) Active confirmed Problem Chronic kidney disea se stage 3 (disorder) (103706283) Chronic kidney disease, stage 3 unspecified (N18.30) Active confirmed Problem Chronic kidney disea se stage 3A (disorder) (177103732) Chronic kidney disease, stage 3a (N18.31) Active confirmed Problem Type 2 diabetes mellitus with other specified complication, without long-term current use of insulin (E11.69) Active confirmed Problem Urinary incontinence (211406737) Urinary incontinence, unspecified type (R32) Active confirmed Problem Gastroesophageal reflux disease (188528058) Gastroesophageal reflux disease, unspecified whether esophagitis present (K21.9) Active confirmed Vital Signs Heart Rate 74 /min 11/26/2024 Temperature 97.0 degrees Fahrenheit 11/26/2024 Blood pressure diastolic 78 mm Hg 11/26/2024 Oximetry 96 % 11/26/2024 Height 62.24 in 11/26/2024 Blood pressure systolic 130 mm Hg 11/26/2024 Weight 229.8 lbs 11/26/2024 BMI 41.7 kg/m2 11/26/2024 Encounters Encounter Location Date Provider Diagnosis [address] [address] 02/01/2024 JARAMILLO GUL Other conjunctivitis H10.89 ; Left temporomandibular joint disorder, unspecified M26.602 ; Radiculopathy, lumbosacral region M54.17 and Other hammer toe(s) (acquired), right foot M20.[address] [address] 02/21/2024 JARAMILLO GUL Radiculopathy, lumbosacral region M54.17 ; Diabetes mellitus due to underlying condition with diabetic neuropathy, unspecified E08.40 ; Essential (primary) hypertension I10 and Chronic kidney disease, stage 3 unspecified N18.[address] [address] 02/29/2024 Adolfo Efraínpolykuldeep Acute URI J06.[address] [place] [address] 04/18/2024 Adolfo Vilchis Diabetes mellitus du e [...] of micturition R35.0 and Epidermal cyst L72.[address] [place] [address] 05/14/2024 JARAMILLO GUL Pain in right leg M7 9.[address] [place] [address] 05/23/2024 JARAMILLO GUL Diabetes mellitus du e to underlying condition with diabetic neuropathy, unspecified E08.40 ; Essential (primary) hypertension I10 ; Obstructive sleep apnea (adult) (pediatric) G47.33 ; Anxiety disorder, unspecified F41.9 ; Mild persistent asthma, uncomplicated J45.30 ; Chronic embolism and thrombosis of unspecified deep veins of unspecified lower extremity I82.509 and Chronic kidney disease, stage 3 unspecified N18.[address] [place] [address] 07/31/2024 JARAMILLO GUL Diabetes mellitus du e [...] Chronic kidney disease, stage 3 unspecified N18.[address] [place] [address] 09/17/2024 ELLA MICHAEL Unspecified fall, in itial encounter W19.XXXA and Pain in right leg M79.[address] [place] [address] 11/26/2024 ELLA MICHAEL Annual physical exam Z00.00 [...] deep veins of unspecified lower extremity I82.[address] [place] [address] 01/10/[address] [place] [address] 01/25/[address] [place] [address] 02/02/2024 ELLA MICHAEL Other conjunctivitis H10.[address] [place] [address] 02/07/[address] [place] [address] 02/16/2024 ELLA MICHAEL Diabetes mellitus du e to underlying condition with diabetic neuropathy, unspecified E08.[address] [place] [address] 02/23/[address] [place] [address] 02/28/2024 [facility] [address] [facility] [address] [place] [address] 03/05/2024 [facility] [address] [facility] [address] [place] [address] 04/16/2024 [facility] [address] [facility] [address] [place] [address] 04/16/2024 [facility] [address] [facility] [address] [place] [address] 06/21/2024 [facility] [address] [facility] [address] [place] [address] 07/13/2024 [facility] [address] [facility] [address] [place] [address] 07/30/2024 [facility] [address] [facility] [address] [place] [address] 08/16/2024 [facility] [address] [facility] [address] [place] [address] 08/16/2024 [facility] Pure hypercholesterolemia, unspecified E78.00 [facility] [address] [facility] [address] [place] [address] 08/22/2024 [facility] [address] [facility] [address] [place] [address] 08/22/2024 [facility] [address] [facility] [address] [place] [address] 09/25/2024 [facility] GUL Acute URI J06.9 [facility] [address] [facility] [address] [place] [address] 11/08/2024 [facility] [address] [facility] [address] [place] [address] 11/12/2024 [facility] [address] [facility] [address] [place] [address] 11/26/2024 ELLA MICHAEL Peripheral vascular disease, unspecified [...] was negative and it was sent to [facility] for further evaluation and it was [...] this note under HIPAA compliance and under [place] law mandated for scribe services. Patient aware [...] was negative and it was sent to [facility] for further evaluation and it was [...] this note under HIPAA compliance and under [place] law mandated for scribe services. Patient aware [...] on right medications. She has seen her small package and bundle sorter clerk in the past 1 year. Foot care [...] because she is on temazepam. Referred to [facility] Dr. Iraheta. Chronic kidney [...] this note under HIPAA compliance and under [place] law mandated for scribe services. Patient aware [...] on right medications. She has seen her small package and bundle sorter clerk in the past 1 year. Foot care [...] because she is on temazepam. Referred to [facility] Dr. Iraheta. Chronic kidney [...] this note under HIPAA compliance and under [place] law mandated for scribe services. Patient aware [...] afternoon for breakthrough pains. She follows with [facility] Dr. Iraheta. Chronic kidney disease stage 3. -She does not appear to be in volume overload. Advised appropriate hydration. Avoid NSAIDs. She sees Dr. Lakhani. Asthma. -She uses her inhalers as needed. Follows with Dr. Shipley-[facility] Generalized anxiety disorder. -Mood is stable on Lorazepam 3 times a day. She has a psychiatrist and a therapist. GERD/gastroparesis /dysphagia - Currently she is on omperazole 20m and Reglan 10 MG twice a day. I have increased omperazole to 40mg and advised patient to follow-up with her GI at [place]. She has an appt in May. MUSA: [...] with diabetic neuropathy. She follows up with [facility] endocrinology and according to patient her last A1c was within normal range. She is seen small package and bundle sorter clerk in the past. She follows up with field marketing lead and kidney function is stable. Foot care discussed with the patient. Hypertension/hyper lipidemia. Blood pressure well controlled and last lipid panel was within reasonable limits Obstructive sleep apnea. Continue on CPAP machine and no daytime sleepiness. Moderate persistent asthma. She stable when she follows up with trend investigator Anxiety/depression . Stable on current regimen. Considering her neuropathy she may be a good candidate for duloxetine which can be added to her regimen and she will check with her psychiatrist. Chronic kidney disease. She is stable and she follows up with field marketing lead to avoid NSAIDs. Right lower extremity swelling. [...] and hemoglobin A1c and follows up with [facility] endocrinology. She is seen small package and bundle sorter clerk in the past. She follows up with field marketing lead and kidney function is stable. Foot care discussed with the patient. Hypertension/hyper lipidemia. Blood pressure well controlled and last lipid panel was within reasonable limits Obstructive sleep apnea. Continue on CPAP machine and no daytime sleepiness. Moderate persistent asthma. She stable when she follows up with trend investigator Anxiety/depression . Stable on current regimen. Considering her neuropathy she may be a good candidate for duloxetine which can be added to her regimen and she will check with her psychiatrist. Chronic kidney disease. She is stable and she follows up with field marketing lead to avoid NSAIDs. Right lower extremity swelling. [...] is on Eliquis. She was taken to [facility] ER where she had CT scan [...] is on Eliquis. She was taken to [facility] ER where she had CT scan of the head and x-ray of the right leg which were negative. Plan is as follows Hematoma of right wiseman. Discussed with the patient that it is superficial and she is low risk for DVTs. Keep the leg elevated and iced the leg. No other intervention is very 09/25/2024 Acute URI (ICD-10 - J06.9) 11/26/2024 Annual physical exam (ICD-10 - Z00.00) Maribell is a 64-year-old lady with DM2, hypertension, hyperlipidemia, asthma, insomnia, anxiety, obstructive sleep apnea, peripheral vascular disease, DVT right lower extremity, obesity, chronic kidney disease stage IIIa and follows up with field marketing lead is here today for annual physical. Diabetes mellitus type 2 with diabetic neuropathy. Her last hemoglobin A1c was 7.1. She is stable on the above-mentioned regimen. She follows up with stage director. She is seeing small package and bundle sorter clerk in the past 1 year. She takes [...] for GLP-1. Advised to talk to her stage director to start the medication. EKG is normal sinus rhythm at [address]pm with no acute ST or T wave changes., no bundle branch blocks, normal intervals She is up to date on age specific screening. She is full code and her is her healthcare proxy 11/26/2024 Essential (primary) hypertension (ICD-10 - I10) Maribell is a 64-year-old lady with DM2, hypertension, hyperlipidemia, asthma, insomnia, anxiety, obstructive sleep apnea, peripheral vascular disease, DVT right lower extremity, obesity, chronic kidney disease stage IIIa and follows up with field marketing lead is here today for annual physical. Diabetes mellitus type 2 with diabetic neuropathy. Her last hemoglobin A1c was 7.1. She is stable on the above-mentioned regimen. She follows up with stage director. She is seeing small package and bundle sorter clerk in the past 1 year. She takes [...] for GLP-1. Advised to talk to her stage director to start the medication. EKG is normal [...] disease stage IIIa and follows up with field marketing lead is here today for annual physical. Diabetes mellitus type 2 with diabetic neuropathy. Her last hemoglobin A1c was 7.1. She is stable on the above-mentioned regimen. She follows up with stage director. She is seeing small package and bundle sorter clerk in the past 1 year. She takes [...] for GLP-1. Advised to talk to her stage director to start the medication. EKG is normal sinus rhythm at 88 bpm with no acute ST or T wave changes., no bundle branch blocks, normal intervals She is up to date on age specific screening. She is full code and her is her healthcare proxy 11/26/2024 Peripheral vascular disease, unspecified (ICD-10 - [...] and hemoglobin A1c and follows up with [facility] endocrinology. She is seen small package and bundle sorter clerk in the past. She follows up with field marketing lead and kidney function is stable. Foot care discussed with the patient. Hypertension/hyper lipidemia. Blood pressure well controlled and last lipid panel was within reasonable limits Obstructive sleep apnea. Continue on CPAP machine and no daytime sleepiness. Moderate persistent asthma. She stable when she follows up with trend investigator Anxiety/depression . Stable on current regimen. Considering her neuropathy she may be a good candidate for duloxetine which can be added to her regimen and she will check with her psychiatrist. Chronic kidney disease. She is stable and she follows up with field marketing lead to avoid NSAIDs. Right lower extremity swelling. [...] and hemoglobin A1c and follows up with [facility] endocrinology. She is seen small package and bundle sorter clerk in the past. She follows up with field marketing lead and kidney function is stable. Foot care discussed with the patient. Hypertension/hyper lipidemia. Blood pressure well controlled and last lipid panel was within reasonable limits Obstructive sleep apnea. Continue on CPAP machine and no daytime sleepiness. Moderate persistent asthma. She stable when she follows up with trend investigator Anxiety/depression . Stable on current regimen. Considering her neuropathy she may be a good candidate for duloxetine which can be added to her regimen and she will check with her psychiatrist. Chronic kidney disease. She is stable and she follows up with field marketing lead to avoid NSAIDs. Right lower extremity swelling. [...] with diabetic neuropathy. She follows up with [facility] endocrinology and according to patient her last A1c was within normal range. She is seen small package and bundle sorter clerk in the past. She follows up with field marketing lead and kidney function is stable. Foot care discussed with the patient. Hypertension/hyper lipidemia. Blood pressure well controlled and last lipid panel was within reasonable limits Obstructive sleep apnea. Continue on CPAP machine and no daytime sleepiness. Moderate persistent asthma. She stable when she follows up with trend investigator Anxiety/depression . Stable on current regimen. Considering her neuropathy she may be a good candidate for duloxetine which can be added to her regimen and she will check with her psychiatrist. Chronic kidney disease. She is stable and she follows up with field marketing lead to avoid NSAIDs. Right lower extremity swelling. [...] afternoon for breakthrough pains. She follows with [facility] Dr. Iraheta. Chronic kidney disease stage 3. -She does not appear to be in volume overload. Advised appropriate hydration. Avoid NSAIDs. She sees Dr. Lakhani. Asthma. -She uses her inhalers as needed. Follows with Dr. Shipley-[facility] Generalized anxiety disorder. -Mood is stable on Lorazepam 3 times a day. She has a psychiatrist and a therapist. GERD/gastroparesis /dysphagia - Currently she is on omperazole 20m and Reglan 10 MG twice a day. I have increased omperazole to 40mg and advised patient to follow-up with her GI at [facility]. She has an appt in May. MUSA: [...] on right medications. She has seen her small package and bundle sorter clerk in the past 1 year. Foot care [...] because she is on temazepam. Referred to [facility] Dr. Iraheta. Chronic kidney [...] this note under HIPAA compliance and under [place] law mandated for scribe services. Patient aware [...] was negative and it was sent to [facility] for further evaluation and it was [...] this note under HIPAA compliance and under [place] law mandated for scribe services. Patient aware [...] was negative and it was sent to [facility] for further evaluation and it was [...] this note under HIPAA compliance and under [place] law mandated for scribe services. Patient aware [...] on right medications. She has seen her small package and bundle sorter clerk in the past 1 year. Foot care [...] because she is on temazepam. Referred to [facility] Dr. Iraheta. Chronic kidney [...] this note under HIPAA compliance and under [place] law mandated for scribe services. Patient aware [...] with diabetic neuropathy. She follows up with [facility] endocrinology and according to patient her last A1c was within normal range. She is seen small package and bundle sorter clerk in the past. She follows up with field marketing lead and kidney function is stable. Foot care discussed with the patient. Hypertension/hyper lipidemia. Blood pressure well controlled and last lipid panel was within reasonable limits Obstructive sleep apnea. Continue on CPAP machine and no daytime sleepiness. Moderate persistent asthma. She stable when she follows up with trend investigator Anxiety/depression . Stable on current regimen. Considering her neuropathy she may be a good candidate for duloxetine which can be added to her regimen and she will check with her psychiatrist. Chronic kidney disease. She is stable and she follows up with field marketing lead to avoid NSAIDs. Right lower extremity swelling. [...] afternoon for breakthrough pains. She follows with [facility] Dr. Iraheta. Chronic kidney disease stage 3. -She does not appear to be in volume overload. Advised appropriate hydration. Avoid NSAIDs. She sees Dr. Lakhani. Asthma. -She uses her inhalers as needed. Follows with Dr. Shipley-[facility] Generalized anxiety disorder. -Mood is stable on Lorazepam 3 times a day. She has a psychiatrist and a therapist. GERD/gastroparesis /dysphagia - Currently she is on omperazole 20m and Reglan 10 MG twice a day. I have increased omperazole to 40mg and advised patient to follow-up with her GI at [facility]. She has an appt in May. MUSA: [...] and hemoglobin A1c and follows up with [facility] endocrinology. She is seen small package and bundle sorter clerk in the past. She follows up with field marketing lead and kidney function is stable. Foot care discussed with the patient. Hypertension/hyper lipidemia. Blood pressure well controlled and last lipid panel was within reasonable limits Obstructive sleep apnea. Continue on CPAP machine and no daytime sleepiness. Moderate persistent asthma. She stable when she follows up with trend investigator Anxiety/depression . Stable on current regimen. Considering her neuropathy she may be a good candidate for duloxetine which can be added to her regimen and she will check with her psychiatrist. Chronic kidney disease. She is stable and she follows up with field marketing lead to avoid NSAIDs. Right lower extremity swelling. It is nonpitting edema most likely lymphedema. She is on Eliquis and less likely to be a DVT and ultrasound lower extremity was negative. Vaginal candidiasis. She is given fluconazole and advised to control blood sugars 11/26/2024 Anxiety disorder, unspecified (ICD-10 - F41.9) Maribell is a 64-year-old lady with DM2, hypertension, hyperlipidemia, asthma, insomnia, anxiety, obstructive sleep apnea, peripheral vascular disease, DVT right lower extremity, obesity, chronic kidney disease stage IIIa and follows up with field marketing lead is here today for annual physical. Diabetes mellitus type 2 with diabetic neuropathy. Her last hemoglobin A1c was 7.1. She is stable on the above-mentioned regimen. She follows up with stage director. She is seeing small package and bundle sorter clerk in the past 1 year. She takes [...] for GLP-1. Advised to talk to her stage director to start the medication. EKG is normal [...] disease stage IIIa and follows up with field marketing lead is here today for annual physical. Diabetes mellitus type 2 with diabetic neuropathy. Her last hemoglobin A1c was 7.1. She is stable on the above-mentioned regimen. She follows up with stage director. She is seeing small package and bundle sorter clerk in the past 1 year. She takes [...] for GLP-1. Advised to talk to her stage director to start the medication. EKG is normal [...] and hemoglobin A1c and follows up with [facility] endocrinology. She is seen small package and bundle sorter clerk in the past. She follows up with field marketing lead and kidney function is stable. Foot care discussed with the patient. Hypertension/hyper lipidemia. Blood pressure well controlled and last lipid panel was within reasonable limits Obstructive sleep apnea. Continue on CPAP machine and no daytime sleepiness. Moderate persistent asthma. She stable when she follows up with trend investigator Anxiety/depression . Stable on current regimen. Considering her neuropathy she may be a good candidate for duloxetine which can be added to her regimen and she will check with her psychiatrist. Chronic kidney disease. She is stable and she follows up with field marketing lead to avoid NSAIDs. Right lower extremity swelling. [...] afternoon for breakthrough pains. She follows with [facility] Dr. Iraheta. Chronic kidney disease stage 3. -She does not appear to be in volume overload. Advised appropriate hydration. Avoid NSAIDs. She sees Dr. Lakhani. Asthma. -She uses her inhalers as needed. Follows with Dr. [facility]ley-[facility] Generalized anxiety disorder. -Mood is stable on Lorazepam 3 times a day. She has a psychiatrist and a therapist. GERD/gastroparesis /dysphagia - Currently she is on omperazole 20m and Reglan 10 MG twice a day. I have increased omperazole to 40mg and advised patient to follow-up with her GI at [facility]. She has an appt in May. MUSA: [...] with diabetic neuropathy. She follows up with [facility] endocrinology and according to patient her last A1c was within normal range. She is seen small package and bundle sorter clerk in the past. She follows up with field marketing lead and kidney function is stable. Foot care discussed with the patient. Hypertension/hyper lipidemia. Blood pressure well controlled and last lipid panel was within reasonable limits Obstructive sleep apnea. Continue on CPAP machine and no daytime sleepiness. Moderate persistent asthma. She stable when she follows up with trend investigator Anxiety/depression . Stable on current regimen. Considering her neuropathy she may be a good candidate for duloxetine which can be added to her regimen and she will check with her psychiatrist. Chronic kidney disease. She is stable and she follows up with field marketing lead to avoid NSAIDs. Right lower extremity swelling. [...] afternoon for breakthrough pains. She follows with [facility] Dr. Iraheta. Chronic kidney disease stage 3. -She does not appear to be in volume overload. Advised appropriate hydration. Avoid NSAIDs. She sees Dr. Lakhani. Asthma. -She uses her inhalers as needed. Follows with Dr. [facility]ley-[facility] Generalized anxiety disorder. -Mood is stable on Lorazepam 3 times a day. She has a psychiatrist and a therapist. GERD/gastroparesis /dysphagia - Currently she is on omperazole 20m and Reglan 10 MG twice a day. I have increased omperazole to 40mg and advised patient to follow-up with her GI at [facility]. She has an appt in May. MUSA: [...] with diabetic neuropathy. She follows up with [facility] endocrinology and according to patient her last A1c was within normal range. She is seen small package and bundle sorter clerk in the past. She follows up with field marketing lead and kidney function is stable. Foot care discussed with the patient. Hypertension/hyper lipidemia. Blood pressure well controlled and last lipid panel was within reasonable limits Obstructive sleep apnea. Continue on CPAP machine and no daytime sleepiness. Moderate persistent asthma. She stable when she follows up with trend investigator Anxiety/depression . Stable on current regimen. Considering her neuropathy she may be a good candidate for duloxetine which can be added to her regimen and she will check with her psychiatrist. Chronic kidney disease. She is stable and she follows up with field marketing lead to avoid NSAIDs. Right lower extremity swelling. [...] and hemoglobin A1c and follows up with [facility] endocrinology. She is seen small package and bundle sorter clerk in the past. She follows up with field marketing lead and kidney function is stable. Foot care discussed with the patient. Hypertension/hyper lipidemia. Blood pressure well controlled and last lipid panel was within reasonable limits Obstructive sleep apnea. Continue on CPAP machine and no daytime sleepiness. Moderate persistent asthma. She stable when she follows up with trend investigator Anxiety/depression . Stable on current regimen. Considering her neuropathy she may be a good candidate for duloxetine which can be added to her regimen and she will check with her psychiatrist. Chronic kidney disease. She is stable and she follows up with field marketing lead to avoid NSAIDs. Right lower extremity swelling. [...] disease stage IIIa and follows up with field marketing lead is here today for annual physical. Diabetes mellitus type 2 with diabetic neuropathy. Her last hemoglobin A1c was 7.1. She is stable on the above-mentioned regimen. She follows up with stage director. She is seeing small package and bundle sorter clerk in the past 1 year. She takes [...] for GLP-1. Advised to talk to her stage director to start the medication. EKG is normal [...] disease stage IIIa and follows up with field marketing lead is here today for annual physical. Diabetes mellitus type 2 with diabetic neuropathy. Her last hemoglobin A1c was 7.1. She is stable on the above-mentioned regimen. She follows up with stage director. She is seeing small package and bundle sorter clerk in the past 1 year. She takes [...] for GLP-1. Advised to talk to her stage director to start the medication. EKG is normal [...] and hemoglobin A1c and follows up with [facility] endocrinology. She is seen small package and bundle sorter clerk in the past. She follows up with field marketing lead and kidney function is stable. Foot care discussed with the patient. Hypertension/hyper lipidemia. Blood pressure well controlled and last lipid panel was within reasonable limits Obstructive sleep apnea. Continue on CPAP machine and no daytime sleepiness. Moderate persistent asthma. She stable when she follows up with trend investigator Anxiety/depression . Stable on current regimen. Considering her neuropathy she may be a good candidate for duloxetine which can be added to her regimen and she will check with her psychiatrist. Chronic kidney disease. She is stable and she follows up with field marketing lead to avoid NSAIDs. Right lower extremity swelling. [...] afternoon for breakthrough pains. She follows with [facility] Dr. Iraheta. Chronic kidney disease stage 3. -She does not appear to be in volume overload. Advised appropriate hydration. Avoid NSAIDs. She sees Dr. Lakhani. Asthma. -She uses her inhalers as needed. Follows with Dr. [facility]ley[facility] Generalized anxiety disorder. -Mood is stable on Lorazepam 3 times a day. She has a psychiatrist and a therapist. GERD/gastroparesis /dysphagia - Currently she is on omperazole 20m and Reglan 10 MG twice a day. I have increased omperazole to 40mg and advised patient to follow-up with her GI at [facility]. She has an appt in May. MUSA: [...] with diabetic neuropathy. She follows up with [facility] endocrinology and according to patient her last A1c was within normal range. She is seen small package and bundle sorter clerk in the past. She follows up with field marketing lead and kidney function is stable. Foot care discussed with the patient. Hypertension/hyper lipidemia. Blood pressure well controlled and last lipid panel was within reasonable limits Obstructive sleep apnea. Continue on CPAP machine and no daytime sleepiness. Moderate persistent asthma. She stable when she follows up with trend investigator Anxiety/depression . Stable on current regimen. Considering her neuropathy she may be a good candidate for duloxetine which can be added to her regimen and she will check with her psychiatrist. Chronic kidney disease. She is stable and she follows up with field marketing lead to avoid NSAIDs. Right lower extremity swelling. [...] afternoon for breakthrough pains. She follows with [facility] Dr. Iraheta. Chronic kidney disease stage 3. -She does not appear to be in volume overload. Advised appropriate hydration. Avoid NSAIDs. She sees Dr. Lakhani. Asthma. -She uses her inhalers as needed. Follows with Dr. Shipley-[facility] Generalized anxiety disorder. -Mood is stable on Lorazepam 3 times a day. She has a psychiatrist and a therapist. GERD/gastroparesis /dysphagia - Currently she is on omperazole 20m and Reglan 10 MG twice a day. I have increased omperazole to 40mg and advised patient to follow-up with her GI at [facility]. She has an appt in May. MUSA: [...] with diabetic neuropathy. She follows up with [facility] endocrinology and according to patient her last A1c was within normal range. She is seen small package and bundle sorter clerk in the past. She follows up with field marketing lead and kidney function is stable. Foot care discussed with the patient. Hypertension/hyper lipidemia. Blood pressure well controlled and last lipid panel was within reasonable limits Obstructive sleep apnea. Continue on CPAP machine and no daytime sleepiness. Moderate persistent asthma. She stable when she follows up with trend investigator Anxiety/depression . Stable on current regimen. Considering her neuropathy she may be a good candidate for duloxetine which can be added to her regimen and she will check with her psychiatrist. Chronic kidney disease. She is stable and she follows up with field marketing lead to avoid NSAIDs. Right lower extremity swelling. [...] and hemoglobin A1c and follows up with [facility] endocrinology. She is seen small package and bundle sorter clerk in the past. She follows up with field marketing lead and kidney function is stable. Foot care discussed with the patient. Hypertension/hyper lipidemia. Blood pressure well controlled and last lipid panel was within reasonable limits Obstructive sleep apnea. Continue on CPAP machine and no daytime sleepiness. Moderate persistent asthma. She stable when she follows up with trend investigator Anxiety/depression . Stable on current regimen. Considering her neuropathy she may be a good candidate for duloxetine which can be added to her regimen and she will check with her psychiatrist. Chronic kidney disease. She is stable and she follows up with field marketing lead to avoid NSAIDs. Right lower extremity swelling. [...] disease stage IIIa and follows up with field marketing lead is here today for annual physical. Diabetes mellitus type 2 with diabetic neuropathy. Her last hemoglobin A1c was 7.1. She is stable on the above-mentioned regimen. She follows up with stage director. She is seeing small package and bundle sorter clerk in the past 1 year. She takes [...] for GLP-1. Advised to talk to her stage director to start the medication. EKG is normal [...] disease stage IIIa and follows up with field marketing lead is here today for annual physical. Diabetes mellitus type 2 with diabetic neuropathy. Her last hemoglobin A1c was 7.1. She is stable on the above-mentioned regimen. She follows up with stage director. She is seeing small package and bundle sorter clerk in the past 1 year. She takes [...] for GLP-1. Advised to talk to her stage director to start the medication. EKG is normal [...] afternoon for breakthrough pains. She follows with [facility] Dr. Iraheta. Chronic kidney disease stage 3. -She does not appear to be in volume overload. Advised appropriate hydration. Avoid NSAIDs. She sees Dr. Lakhani. Asthma. -She uses her inhalers as needed. Follows with Dr. [facility] Generalized anxiety disorder. -Mood is stable on Lorazepam 3 times a day. She has a psychiatrist and a therapist. GERD/gastroparesis /dysphagia - Currently she is on omperazole 20m and Reglan 10 MG twice a day. I have increased omperazole to 40mg and advised patient to follow-up with her GI at [facility]. She has an appt in May. MUSA: [...] afternoon for breakthrough pains. She follows with [facility] Dr. Iraheta. Chronic kidney disease stage 3. -She does not appear to be in volume overload. Advised appropriate hydration. Avoid NSAIDs. She sees Dr. Lakhani. Asthma. -She uses her inhalers as needed. Follows with Dr. Shipley-[facility] Generalized anxiety disorder. -Mood is stable on Lorazepam 3 times a day. She has a psychiatrist and a therapist. GERD/gastroparesis /dysphagia - Currently she is on omperazole 20m and Reglan 10 MG twice a day. I have increased omperazole to 40mg and advised patient to follow-up with her GI at [facility]. She has an appt in May. MUSA: [...] afternoon for breakthrough pains. She follows with [facility] Dr. Iraheta. Chronic kidney disease stage 3. -She does not appear to be in volume overload. Advised appropriate hydration. Avoid NSAIDs. She sees Dr. Lakhani. Asthma. -She uses her inhalers as needed. Follows with Dr. Shipley-[facility] Generalized anxiety disorder. -Mood is stable on Lorazepam 3 times a day. She has a psychiatrist and a therapist. GERD/gastroparesis /dysphagia - Currently she is on omperazole 20m and Reglan 10 MG twice a day. I have increased omperazole to 40mg and advised patient to follow-up with her GI at [facility]. She has an appt in May. MUSA: [...] afternoon for breakthrough pains. She follows with [facility] Dr. Iraheta. Chronic kidney disease stage 3. -She does not appear to be in volume overload. Advised appropriate hydration. Avoid NSAIDs. She sees Dr. Lakhani. Asthma. -She uses her inhalers as needed. Follows with Dr. Shipley-[facility] Generalized anxiety disorder. -Mood is stable on Lorazepam 3 times a day. She has a psychiatrist and a therapist. GERD/gastroparesis /dysphagia - Currently she is on omperazole 20m and Reglan 10 MG twice a day. I have increased omperazole to 40mg and advised patient to follow-up with her GI at [facility]. She has an appt in May. MUSA: [...] afternoon for breakthrough pains. She follows with [facility] Dr. Iraheta. Chronic kidney disease stage 3. -She does not appear to be in volume overload. Advised appropriate hydration. Avoid NSAIDs. She sees Dr. Lakhani. Asthma. -She uses her inhalers as needed. Follows with Dr. Shipley-[facility] Generalized anxiety disorder. -Mood is stable on Lorazepam 3 times a day. She has a psychiatrist and a therapist. GERD/gastroparesis /dysphagia - Currently she is on omperazole 20m and Reglan 10 MG twice a day. I have increased omperazole to 40mg and advised patient to follow-up with her GI at [facility]. She has an appt in May. MUSA: [...] afternoon for breakthrough pains. She follows with [facility] Dr. Iraheta. Chronic kidney disease stage 3. -She does not appear to be in volume overload. Advised appropriate hydration. Avoid NSAIDs. She sees Dr. Lakhani. Asthma. -She uses her inhalers as needed. Follows with Dr. [facility] Generalized anxiety disorder. -Mood is stable on Lorazepam 3 times a day. She has a psychiatrist and a therapist. GERD/gastroparesis /dysphagia - Currently she is on omperazole 20m and Reglan 10 MG twice a day. I have increased omperazole to 40mg and advised patient to follow-up with her GI at [facility]. She has an appt in May. MUSA: [...] Provider Name:ELLA MICHAEL , 05/29/2025 10:30:00 AM, [address] [place] [address], [place], [id number], Insurance Providers Payer Name Payer Address Payer Phone Subscriber Number Group Number Insured Name Patient Relationship to Insured Coverage Start Date Coverage End Date [facility] [address] [place] [phone] [id number] PatelMaribell Self - patient is the insured Medical (General) History Medical History History ICD Code hypertension, benign hyperlipidemia IDDM T 2, [facility] endo Urinary incontinence and she sees Dr. England at [facility] Left shoulder pain and she sees Dr. Alida villa and she is also seen Dr. Diaz Asthma and she sees Pul at [facility] Generalized anxiety disorder and she is seen by a psychiatrist and she goes to [facility] Pain management and has seen Dr. Montiel at [facility] in past Peripheral arterial disease and status post amputation below knee joint currently on Coumadin and goes to Coumadin clinic Lumbar radiculopathy on oxycodone 30 mg 3 times a day DVT leg LE sleep apnea [place] [facility] [place] leg amputation below knee joint Chronic kidney disease stage 3, Dr. Janis smalls Personal history of COVID-19 - [facility] Surgical History Surgery Date(Month/Year) rotator cuff tear repair September 2017 wrist surgery below the knee amputation 07 left side for Blood clots 2/2 to OCP and pt was smoking rt toes amputation 2004 right wrist synovial cyst resection, Dr. Henriquez 2021 right carpal tunnel decompression, Dr. Flores hadley 2021 Hospitalization History Reason Date(Month/Year)
== END 2025-01-08 11:03 | disposition home or self-care (01) ==
LOC: HO.HOS 09:17
PROVIDERS: PCP Hospitalist
DX: G56.03 Carpal tunnel syndrome, bilateral upper limbs (principal)
CPT/HCPCS: 99214

== ENCOUNTER → 2025-01-08 09:16 | Outpatient (BNVA) | payer OTHER, SELFPAY | PROVIDERS: PCP Hospitalist | DX: G56.01 Carpal tunnel syndrome, right upper limb (principal) | CPT/HCPCS: 99212 ==

== ENCOUNTER → 2025-02-12 07:49 | Day surgery (SDC) | payer OTHER, SELFPAY ==
--- OUTSIDE RECORDS SUMMARY | 2025-01-29 07:02 | XMS_ITS | Clinical Summary ---
Author Organization 175 [facility] Address [address] [place] [address] Phone Care Team Providers Care Stick Feeder Name Role Phone Samuel Hilario MD Primary Care Provider [phone] Allergies Active Allergy Reactions Criticality Noted Date [...] that time. All questions answered. Diabetic gastroparesis ([facility] V24, [facility] V28 ) 08/25/2022 Prurigo nodularis [...] 2 diabetes mellitus wit h neurological manifestations ([facility] V24, [facility] V28) 03/29/2014 Overview (03/27/2024): Left stump neuropathy Intolerant metformin Refused increase med. See Tel. 02/02/16 Urinary incontinence 03/29/2014 Overview (03/27/2024): Darline. Changed to [place] Panic attacks 03/29/2014 Overview (03/27/2024): Sees psych Morbid obesity ([facility] V24, [facility] V28) 2013 Overview (03/27/2024): BMI 43.0 on 02/07/14 per transfer records MUSA (obstructive sleep apnea) 03/18/2014 Lumbosacral spondylosis without myelopathy 03/18 Eczema 03/18/2014 History of leg amputation ([facility] V24, [facility] V28) 03/18/2014 Overview (03/27/2024): BKA 08/10/11 left Lumbago 04/16/2009 S/P BKA (below knee amputation) ([facility] V24, S/[facility] V28) 12/30/2008 Overview (03/27/2024): left Sleep apnea 09/01/2005 Overview (03/27/2024): uses CPAP IMO update 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 ([facility] V24, [facility] [place]) 08/19/2005 Overview (03/27/2024): from birthcontrol.had amputation on 10/11.on coumadin since October previous pcp dr ANA ignacio u/s negative in [place] 08/16/05 plastic sugeon for wound care s/p amputation.sees dr loyd for infection suresh gray is her plastic surgeon just finished reconstruciton Heartburn 08/19/2005 Phantom limb syndrome ([facility] [place], [facility] V28) 08/19/2005 Overview (03/27/2024): IMO update Asthma 08/19/2005 Depressive disorder 08/19/2005 Overview (03/27/2024): Shannon hernandez,[facility].they give wellbutrin,remerenon,seroquel Encounters Date Type Department Care Team Description 12/20/2024 1:45 PM EDT Office Visit Orthopedic Surgery - [address] [address] Nolberto Cruz, DPM Dermatophytosis of nail (Primary Dx); Acquired hammer toe of right foot; Type II diabetes mellitus with peripheral circulatory disorder ([facility] [place], [facility] V28); Diabetic mononeuropathy simplex ([facility], [facility] V28); Hx of BKA, left ([facility], [facility] V28); Corns and callosities from Last 3 [...] thromb osis of lower extremity (CMS/HCC V24, [facility] V28) DX:Arterial embolism and thr ombosis of lower extremity (HCC) Left hip pain DX:Left hip pain Amenorrhea DX:Amenorrhea Chronic abdominal pain DX:Chroni c abdominal pain Asthma DX:Asthma Obesity DX:Obesity Amputation of leg ([facility] V 24, [facility] V28) DX:Amputation of leg ([facility]) Incontinence DX:Incontinence Otitis media DX:Otitis media Pelvic pain DX:Pelvic pain Left shoulder pain DX:Left shoul krystle pain Sleep apnea DX:Sleep apnea; COMMENT: CPAP Historical Medical DX 2004 DX:HTN; CO MMENT: Metropolol and Buspar Rotator cuff tear 05/18/2014 DX:Rotator cuf f tear; COMMENT: Chronic anterior/superior tear, managed medically Carpal tunnel syndrome 05/18/2014 DX:Carpal tunnel syndrome; COMMENT: left History of leg amputation ([facility] V24, [facility] V28) 03/18/2014 DX:History of leg amputation (HCC); COMMENT: BKA 08/10/11 (leg not specified) History of pulmonary embolism 03/18/2014 DX :History of pulmonary embolism; COMMENT: 2011 MUSA (obstructive sleep apnea) 03/18/2014 DX :MUSA (obstructive sleep apnea) Impaired fasting glucose 03/18/2014 DX:Impa ired fasting glucose Lumbosacral spondylosis with out myelopathy 03/18/2014 DX:Lumbosacral spondylosis w ithout myelopathy Eczema 03/18/2014 DX:Eczema Morbid obesity (CMS/HCC V24, [facility] V28) 03/18/2014 DX:Morbid obesity (HCC); COM MENT: BMI 43.0 on 02/07/14 Hypertension DX:Hypertension Type 2 diabetes mellitus wit hout complications ([facility] V24, [facility] V28) DX:Type 2 diabetes mellitus [...] PM EST Office Visit Orthopedic Surgery - [place] [address] [facility] [address] [place] [address] [place] [phone] Nolberto Cruz, DPM [address] [phone] Health Maintenance Due Date Last Done Comments [...] mammogram BILATERAL in 1 year. Mammography location: [facility] Mammography at [address], [address] -------- FINAL REPORT -------- Dictated By: Sd Restrepo Dictated Date: 08/20/2024 16:32 ET Assigned Physician: Sd Restrepo Reviewed and Electronically Signed By: Sd Restrepo Signed Date: 08/20/2024 16:39 ET Workstation ID: [id number] Transcribed By: Self Edit Transcribed Date: 08/20/2024 16:32 ET Narrative 08/20/2024 4:39 PM EDT EXAM: SCREENING MAMMOGRAPHY, BILATERAL HISTORY: SCREENING. Paternal aunt diagnosed with breast cancer age 39 COMPARISON: 10/21/20 TECHNIQUE: Synthesized CC and MLO projections of each breast. Tomosynthesis of each breast in the CC and MLO projections. ADDITIONAL IMAGING: None Computer-aided detection was employed with the [employer] AI 3-D. TISSUE DENSITY: The breasts are [...] None Computer-aided detection was employed with the [employer] AI 3-D. TISSUE DENSITY: The breasts are [...] [facility]amm[facility] [address] [place], [address] -------- FINAL REPORT -------- Dictated By: Sd Restrepo Dictated Date: 08/20/2024 16:32 ET Assigned Physician: Sd Restrepo Reviewed and Electronically Signed By: Sd Restrepo Signed Date: 08/20/2024 16:39 ET Workstation ID: [id number] Transcribed By: Self Edit Transcribed Date: 08/20/2024 16:32 ET Betty Matt CNM IMG BI PROCEDURES Final Resul t * HPV with reflex genotype (08/07/2024 2:32 PM EDT) [facility] HPV Negative Negative LAB MICROBIOLOGY METHOD 08/08/2024 1:09 PM EDT [facility] Brushing/Spatula Cervix uteri structure / Unknown 08/07/2024 2:32 PM EDT 08/08/2024 6:17 AM EDT Betty Matt CNM LAB MOLECULAR DIAGNOSTICS ORD ERABLES Final Result [facility] [address] [place] [address], * HM Urine Albumin Creatinine Ratio (02/25/2017) Pathologist [facility] Urine Albumin Creatinine Ratio abstracted Historical Provider HEALTH MAINTENANCE Final Result * (ABNORMAL) Hemoglobin A1c (02/25/2017) [facility] Hemoglobin A1C 7.4(A) 4.0 - 6.0 % Blood Venous blood specimen / Unknown Historical Provider LAB BLOOD ORDERABLES Jessy l Result * (ABNORMAL) Lipid panel (02/25/2017) [facility] LDL/HDL Ratio 4 0 - 4 Triglycerides 280(A) 0 - 150 mg/dL Cholesterol 110 0 - 200 mg/dL HDL 29(A) >=40 mg/dL LDL Cholesterol 25 0 - 100 mg/dL Blood Venous blood specimen / Unknown Historical Provider LAB BLOOD ORDERABLES Jessy l Result * Hepatitis C Screening (01/02/2016) Pathologist [facility] Hepatitis C Screening abstracted [facility] Provider HEALTH MAINTENANCE Final Result * Depression Screening (08/19/2005) Pathologist [facility] Depression Screening abstracted [facility] Provider HEALTH MAINTENANCE Final Result from Last 3 Months or Most Recently Relevant to Health Maintenance Insurance [facility] [employer] Care Teams Stick Feeder Relationship Specialty Start Date End Date Samuel Hilario MD [address] [phone] PCP - General Internal Medicine 03/19/20
--- OUTSIDE RECORDS SUMMARY | 2025-01-29 07:03 | XMS_ITS | Clinical Summary ---
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 Changed to [place] Panic attack 03/29/2014 Overview (09/06/2022): Sees psych [...] [facility] [address] [phone] Racheal Wood ARNP Stage 3a chronic kidney [...] [facility] [address] [phone] Racheal Wood ARNP [address] [phone] Health Maintenance Due Date Last [...] Creatinine, Ur 76.5 Not Estab. mg/dL [facility] Protein, Ur 29.8 Not Estab. mg/dL [facility] Urine Protein/Creati nine Ratio 390(H) 0 - 200 mg/g creat [facility] 11/07/2024 9:01 AM EDT 11/07/2024 Racheal [facility] LAB URINE ORDERABLES Final Result Performing Organization Address City/[facility] Co de Phone Number [facility] [address] [place] [address] * (ABNORMAL) Urine Albumin / Creatinine Ratio (11/07/2024 9:01 AM EDT) Albumin, Urine 35.1 Not Estab. ug/mL [facility] Albumin/Creatin ine Ratio 46(H) 0 - 29 mg/g creat [facility] Comment: Normal: 0 - 29 Moderately increased: 30 - 300 Severely increased: >300 11/07/2024 9:01 AM EDT 11/07/2024 [facility] LAB URINE ORDERABLES Final Result Performing Organization Address [facility] Co de Phone Number [facility] [address] [place] [address] * CBC (11/07/2024 9:01 AM EDT) WBC 9.5 3.4 - 10.8 x10E3/uL [facility] RBC 4.38 3.77 - 5.28 x10E6/uL [facility] Hemoglobin 13.3 11.1 - 15.9 g/dL [facility] Hematocrit 40.9 34.0 - 46.6 % [facility] MCV 93 79 - 97 fL [facility] MCH 30.4 26.6 - 33.0 pg [facility] MCHC 32.5 31.5 - 35.7 g/dL [facility] RDW 12.6 11.7 - 15.4 % [facility] Platelets 244 150 - 450 x10E3/uL [facility] 11/07/2024 9:01 AM EDT 11/07/2024 Racheal [facility] LAB BLOOD ORDERABLES Final Result [facility] [address] [place] [address] * PTH, Intact (11/07/2024 9:01 AM EDT) PTH 35 15 - 65 pg/mL [facility] 11/07/2024 9:01 AM EDT 11/07/2024 Racheal [facility] LAB BLOOD ORDERABLES Final Result Performing Organization Address [facility] Co de Phone Number [facility] [address] [place] [address] * Magnesium (11/07/2024 9:01 AM EDT) Magnesium 1.7 1.6 - 2.3 mg/dL [facility] 11/07/2024 9:01 AM EDT 11/07/2024 Racheal [facility] LAB BLOOD ORDERABLES Final Result Performing Organization Address City/[facility]/ZIP Co de Phone Number [facility] [address] [place] [address] * (ABNORMAL) Renal Function Panel (11/07/2024 9:01 AM EDT) Glucose 196(H) 70 - 99 mg/dL [facility] BUN 20 8 - 27 mg/dL [facility] Creatinine 1.17(H) 0.57 - 1.00 mg/dL [facility] eGFR CKD-EPI CR 2020 53(L) >59 mL/min/1.7 3 [facility] BUN/Creatinine Ratio 17 12 - 28 [facility] Sodium 138 134 - 144 mmol/L [facility] Potassium 4.5 3.5 - 5.2 mmol/L [facility] Chloride 102 96 - 106 mmol/L [facility] Bicarbonate (CO2) 20 20 - 29 mmol/L [facility] Calcium 9.7 8.7 - 10.3 mg/dL [facility] Albumin 4.0 3.9 - 4.9 g/dL [facility] Phosphorus 3.7 3.0 - 4.3 mg/dL [facility] 11/07/2024 9:01 AM EDT 11/07/2024 Racheal Wood [facility] LAB BLOOD ORDERABLES Final Result [facility] [address] [place] [address] * (ABNORMAL) Hemoglobin A1c (06/17/2021 4:28 PM EST) Hemoglobin A1C 9.2(H) (4.0-5.6) % [facility] Comment: MONITORING: In known diabetic patients, hemoglobin A1c targets should be discussed with health care provider. DIAGNOSTIC USE: The [place] [employer] (ADA) and the World Health [...] Supplement 1 Testing performed or reported by [facility], a Service of [facility], [address] [place] [address] Bertin Bethea MD, Restaurant Hospitality Manager [facility]# [id number] Blood specimen (specimen) Venous blood / Unknown 06/17/2021 4:28 PM EST 06/17/2021 4:29 PM EST us Feroz Lakhani MD LAB BLOOD ORDERABLES Final Re sult [facility] from Last 3 Months or Most Recently Relevant to Health Maintenance Insurance [employer] [employer] [place] [employer] Care Teams Stone Product Fabricator Relationship Specialty Start Date End Date Samuel Hilario MD [address] [place] [address] PCP - General Internal Medicine 05/26/21
--- OUTSIDE RECORDS SUMMARY | 2025-01-29 07:03 | XMS_ITS | Patient Health Record ---
Author Organization [employer] [facility] Address [address] [place] [address] Care Team Providers Care Rn Acute Dialysis Name Role Phone ELLA MICHAEL Primary Care Provider Adolfo Vilchis Unavailable [phone] Allergies Allergen (clinical drug ingredient) Drug/Non Drug [...] kathleen Results Component Value Reference Range Notes Comp. Metabolic Panel (14)-3 [id number] Reviewed date:08/04/2024 01:36:37 PM Interpretation: Performing Lab:[facility], [address] [facility], Phone - [phone], Director - Mohsen Notes/Report: Glucose 101 70-99 [...] IU/L ALT (SGPT) 46 0-32 IU/L Lipid Panel-[id number] Reviewed date:08/16/2024 04:22:18 PM Interpretation: Performing Lab:[facility], [address] [place] [address], Phone - [phone], Director - MDJodry Notes/Report: Cholesterol, Total 132 100-199 mg/dL Triglycerides 228 0-149 mg/dL HDL Cholesterol 38 >39 mg/dL VLDL Cholesterol Timothy 37 5-40 mg/dL LDL Chol Calc (NIH) 57 0-99 mg/dL Albumin/Creatinine Ratio,Uri [id number] Reviewed date:08/04/2024 01:31:32 PM Interpretation: Performing Lab:[facility], [address] [place] [address], Phone - [phone], Director - MDHelgadry Notes/Report: Creatinine, Urine 88.2 Not Estab. mg/dL Albumin, Urine 19.2 Not Estab. ug/mL Alb/Creat Ratio 22 0-29 mg/g creat Normal: 0 - 29 Moderately increased: 30 - 300 Severely increased: >300 Hemoglobin [id number] Reviewed date:08/04/2024 01:31:25 PM Interpretation: Performing Lab:[facility], [address] [place] [address], Phone - [phone], Director - MDHelgadry Notes/Report: Hemoglobin A1c 7.1 4.8-5.6 % . Prediabetes: 5.7 - 6.4 Diabetes: >6.4 Glycemic control for adults with diabetes: <7.0 MG MAMMO DIGITAL SCREENING W TONG BILAT Reviewed date:08/22/2024 02:13:16 PM Interpretation: Performing Lab: Notes/Report: Note See Note [facility], a member of [employer] Patient Name: MARIBELL TAYLOR Date of : 1960 Reason for Exam: Breast cancer screen, avg risk, asymptomatic (Age => 42y) Exam Date: 08/20/2024 [id number] EST Report Status: Final Ordering Provider: TONY [...] Mamm[facility] location[facility] [address], [address] -------- FINAL REPOR T -------- Dictated By: Sd Holbrook Dictated Date: 08/20/2024 16:32 ET Assigned Physician: Sd Restrepo Reviewed and Electronically Signed By: Sd Restrepo Signed Date: 16:39 ET Workstation ID: [id number] Transcribed By: Self Edit Transcribed Date: 08/20/2024 16:32 ET Comp. Metabolic Panel (14)-3 [id number] Reviewed date:09/03/2024 02:43:50 PM Interpretation: Performing Lab:[facility], [address], [place], Phone - [phone], Director - Mohsen Notes/Report: Glucose 145 70-99 mg/dL BUN 21 [...] IU/L ALT (SGPT) 38 0-32 IU/L Lipid Panel-[id number] Reviewed date:09/03/2024 02:43:34 PM Interpretation: Performing Lab:[facility], [address] [facility], Phone - [phone], Director - MDJodry Notes/Report: Cholesterol, Total 126 100-199 mg/dL Triglycerides 205 0-149 mg/dL HDL Cholesterol 38 >39 mg/dL VLDL Cholesterol Timothy 33 5-40 mg/dL LDL Chol Calc (NIH) 55 0-99 mg/dL Albumin/Creatinine Ratio,Uri [id number] Reviewed date:09/03/2024 02:43:41 PM Interpretation: Performing Lab:[facility], [address] [facility], [place], Phone - [phone], Director - MDJodry Notes/Report: Creatinine, Urine 75.8 Not Estab. mg/dL Albumin, Urine 24.0 Not Estab. ug/mL Alb/Creat Ratio 32 0-29 mg/g creat Normal: 0 - 29 Moderately increased: 30 - 300 Severely increased: >300 HPV WITH REFLEX GENOTYPE Reviewed date:08/08/2024 01:37:20 [...] cytopathology services provided by [facility], at [address] [place] [address], [place] [address] ([facility] # [id number]/Omi Connelly MD, Tower Equipment Repairer.) Console Pap Interpretation Reported General Categorization Negative Lipid Panel-[id number] Reviewed date:08/26/2024 07:23:29 AM Interpretation: Performing Lab:[facility] [place], [address] [facility], [place], Phone - [phone], Director - Mohsen Notes/Report: Cholesterol, Total 125 100-199 mg/dL Triglycerides 203 0-149 mg/dL HDL Cholesterol 39 >39 mg/dL VLDL Cholesterol Timothy 33 5-40 mg/dL LDL Chol Calc (NIH) 53 0-99 mg/dL Hemoglobin [id number] Reviewed date:02/20/2024 08:28:37 AM Interpretation: Performing Lab:[facility] [place], [address] [facility], [place], Phone - [phone], Director - Mohsen Notes/Report: Hemoglobin A1c 6.1 4.8-5.6 % . Prediabetes: 5.7 - 6.4 Diabetes: >6.4 Glycemic control for adults with diabetes: <7.0 Reason For Referral Reason Evaluation and manag ement - Dr Cruz Diagnosis 1 Other hammer toe(s) (acquired), right foot (M20.41) Referral Organization [facility] Referring Provider First Name ELLA Referring Provider Last Name GU Referring Provider Speciality Internal edicine Referred Provider Specialty Podiatry General Notes Referral sent to [facility] in [place] - Office will call patient for scheduling.Janene [...] Low back pain (M54.5 ) Referral Organization [facility] Referring Provider First Name ELLA Referring Provider Last Name [facility] Referring Provider Speciality Internal M edicine Referred Provider Specialty Pain Medicin e General Notes Referral sent to [facility] in [place] - Office will call patient for scheduling., Naty Watters 02/21/2024 10:54:41 AM > Referral Priority Routine Medications Medication SIG (Take, Route, Frequency, Duration) Notes Start Date End Date Status Fluconazole 150 mg TAKE 1 TABLET BY MOUTH EVERY 3 DAYS; Duration: 3 Active EPINEPHrine 0.3 MG/0.3ML INJECT INTRAMUSCULARLY THE CONTENT OF 1 pen as indicated by anaphylaxis; Duration: 7 Active True Comfort Safety Lancets - USE TO TEST FINGER STICK BLOOD SUGAR 3 (THREE) TIMES A DAY; Duration: 30 Active Diclofenac Sodium 1 % as directed Externally 2 times a day; Duration: 30 days Active Metoprolol Succinate ER 100 mg TAKE 1 TABLET BY MOUTH ONCE DAILY; Duration: 30 Active amLODIPine Besylate 5 mg TAKE ONE TABLET BY MOUTH ONCE A DAY once a day; Duration: 90 days Active Fluconazole 50 MG 1 tablet Orally Daily; Duration: 10 day(s) 06/16/2020 Not-Taking Insulin Lispro (1 Unit Dial) 100 unit/mL INJECT 30 UNITS UNDER THE SKIN 3 (THREE) TIMES A DAY; Duration: 30 Active metFORMIN HCl 850 mg TAKE 1 TABLET BY MOUTH two (2) times a day. TAKE WITH MEALS; Duration: 30 Active tiZANidine HCl 4 MG 1 tablet Orally 3 times a day; Duration: 30 days As needed Active clonazePAM 1 MG 2 tablets in the am and 2 tablets in pm Orally twice a day CHD Not-Taking Ezetimibe 10 mg TAKE 1 TABLET BY MOUTH ONCE DAILY; Duration: 30 Active Benzonatate 100 MG 1 capsule as needed Orally Three times a day; Duration: 7 days 01/21/2025 Active Omeprazole 20 mg TAKE 1 CAPSULE BY MOUTH 30 MINUTES BEFORE morning meal; Duration: 30 Active hydroCHLOROthiazide 25 mg TAKE 1 TABLET BY MOUTH EVERY MORNING; Duration: 30 Active Lidocaine HCl Urethral/Mucosal 2 % APPLY SPARINGLY TO THE AFFECTED AREA ON RIGHT TO THE ARM AND CHEST 2 TO 3 TIMES A DAY IF ITCHY; Duration: 30 Active Montelukast Sodium 10 mg TAKE 1 TABLET B Y MOUTH ONCE A DAY; Duration: 30 days Active hydrOXYzine HCl 25 MG 1 tablet Orally On ce a day; Duration: 90 days Active Lantus SoloStar 100 UNIT/ML INJECT 90 UNITS UNDER THE SKIN ONCE A DAY DIRECTED; Duration: 30 Active Meclizine HCl 25 MG 1 tablet as needed Orally every 12 hrs; Duration: 10 days 05/31/2023 Active True Comfort Pen [place] 32G X 4 MM USE TO INJECT insulin 5 TIMES A DAY; Duration: 25 Active Benzonatate 100 MG 1 capsule as needed Orally Three times a day; Duration: 7 days 10/25/2022 Not-Taking Trulicity 1.5 MG/0.5ML inject the conten t of 1 pen under the skin each week as directed Subcutaneous weekly; Duration: 30 days 02/23/2022 Not-Taking Lidocaine 5 % 1 patch remove after 12 hours Externally Once a day; Duration: 90 days Active predniSONE 10 MG 1 tablet Orally Once a day; Duration: 7 days 10/06/2023 Not-Taking Alcohol Pads 70 % USE TOPICALLY THREE TIMES DAILY; Duration: 30 days Active Tessalon Perles 100 MG 1 capsule as need ed Orally Three times a day; Duration: 7 days 03/19/2022 Not-Taking metroNIDAZOLE 0.75 % _insert 1 APPLICATORFUL VAGINALLY ONCE A DAY AT BEDTIME FOR 10 DAYS; Duration: 10 Not-Taking Admelog SoloStar 100 UNIT/ML 11 units Subcutaneous three times a day; Duration: 30 Not-Taking Trulicity 3 MG/0.5ML inject the content of 1 pen under the skin each week as directed Subcutaneous weekly; Duration: 30 days 02/23/2022 Not-Taking Azithromycin 250 MG 2 tablet day one 1 tab daily for 4 days Orally daily; Duration: 5 days 03/19/2022 Not-Taking Fluticasone Propionate 50 MCG/ACT SPRAY TWICE INTO EACH NOSTRIL ONCE A DAY; Duration: 30 Not-Taking Zofran 4 MG as directed Orally; Duration: 7 days 07/07/2018 Not-Taking Azelastine HCl 0.1 % 1 puff in each nostril Nasally Twice a day Active Citalopram Hydrobromide 40 MG 2 tablet Orally Once a day; Duration: 30 day(s) Psy Active Nebulizer/Tubing/Mouthpie ce - as directed for treatment of Dx: J45.30 inhalation every 4-6 hours prn; Duration: 30 days 06/26/2019 Active Xopenex 1.25 MG/3ML 3 ml Inhalation three times daily; Duration: 15 Active Mometasone Furoate 0.1 % Apply sparingly first before calcipotriene twice a day to affected areas on arms and chest as needed 30 30; Duration: 30 Active Cyproheptadine HCl 4 MG TAKE ONE TABLET BY MOUTH 3 (THREE) TIMES A DAY NEEDED FOR ITCH 30 30; Duration: 30 Active Metoclopramide HCl 10 MG 1 tablet before meals Orally Twice a day; Duration: 30 days 11/01/2022 Active Ofloxacin 0.3 % 10 drops into affected ear Otic Once a day; Duration: 7 days 03/18/2023 Not-Taking Ondansetron HCl 4 MG 1 tablet Orally twice a day; Duration: 7 days 11/05/2022 Active Osfohkuy-Rtzgwjnna-CN 1 % 4 drops into affected ear Otic Three times a day; Duration: 7 days 03/18/2023 Not-Taking FreeStyle Lite - as directed to check blood sugars Dx: E11.9 in vitro three times daily; Duration: 30 days 02/24/2018 Active Myrbetriq 50 MG 1 tablet Orally twice a day; Duration: 30 Urologist Active Carafate 1 GM/10ML 10 ml on an empty stomach Orally Twice a day; Duration: 30 day(s) 05/04/2021 Not-Taking Doxycycline Hyclate 100 MG 1 capsule Orally Twice a day; Duration: 7 days 12/06/2023 Not-Taking predniSONE 20 MG 1 tablet Orally Once a day; Duration: 7 days 12/06/2023 Not-Taking Tobramycin 0.3 % 1 drop into affected eye Ophthalmic every 4 hrs; Duration: 7 days 02/01/2024 Not-Taking predniSONE 20 MG 1 tablet Orally Once a day; Duration: 7 days 02/29/2024 Not-Taking Cephalexin 500 MG 1 capsule Orally every 8 hours; Duration: 7 days 09/21/2023 Not-Taking Benzonatate 100 MG 1 capsule as needed Orally Three times a day; Duration: 7 days 12/06/2023 Not-Taking oxyCODONE HCl 30 mg TAKE 1 TABLET BY MOUTH 3 (THREE) TIMES A DAY NEEDED FOR PAIN by mouth 3 times a day; Duration: 14 days 01/02/2024 Not-Taking Atorvastatin Calcium 10 mg TAKE 1 TABLET BY MOUTH ONCE DAILY; Duration: 30 Active predniSONE 10 MG 1 tablet with food or milk Orally Once a day; Duration: 7 days 01/21/2025 Active Loratadine 10 mg TAKE 1 TABLET BY MOUTH ONCE DAILY; Duration: 30 days Active Knee Compression Sleeve/L/XL - as directed; Duration: 100 days 11/26/2024 Active Losartan Potassium 100 mg TAKE 1 TABLET BY MOUTH ONCE DAILY; Duration: 30 Active D3 Super Strength 50 MCG (2000 UT) TAKE 1 CAPSULE BY MOUTH ONCE DAILY; Duration: 30 Active Baclofen 10 MG 1 tablet as needed Orally Twice a day Active Eliquis 5 mg TAKE ONE TABLET BY MOUTH two (2) times a day 30; Duration: 30 Active OXcarbazepine 150 MG 1 tablet Orally Twice a day Active Temazepam 30 MG 1 capsule at bedtime as needed Orally Once a day Not-Taking FreeStyle Lite Test - USE TO TEST FINGER STICK BLOOD SUGAR 3 (THREE) TIMES A DAY; Duration: 33 Active Nystatin-Triamcinolone 263673-2.1 UNIT/GM 1 application Externally Twice a day; Duration: 28 days 11/12/2024 Active Omeprazole 40 mg TAKE 1 CAPSULE BY MOUTH 1/2 TO 1 HOUR BEFORE BREAKFAST; Duration: 30 Active LORazepam 1 MG 1 tablet at bedtime as needed Orally Once a day Active Easy Touch Lancets 28G - as directed; Duration: 30 days Active Ozempic (0.25 or 0.5 MG/DOSE) 2 MG/3ML as directed Subcutaneous once a week Active ProAir HFA 108 (90 Base) MCG/ACT 2 puffs Inhalation Every 4 hours,PRN:for wheezing; Duration: 17 Not-Taking Ventolin HFA 108 (90 Base) MCG/ACT 1 puff as needed Inhalation every 4 hrs Active Albuterol Sulfate HFA 108 (90 Base) MCG/ACT 2 puffs as needed Inhalation every 6 hrs Active Immunizations Vaccine Route Administration Date Status [...] W/U Status Risk Notes Problem Diabetic neuropathy (306308191) Diabetes mellitus due to underlying condition with diabetic neuropathy, unspecified (E08.40) Active confirmed Problem Morbid obesity (disorder) (833709124) Morbid (severe) obesity due to excess calories (E66.01) Active confirmed Problem Anxiety disorder (494343394) Anxiety disorder, unspecified (F41.9) Active confirmed Problem Essential tremor (632279212) Essential tremor (G25.0) Active confirmed Problem Insomnia (212164022) Insomnia, unspecified (G47.00) Active confirmed Problem Obstructive sleep apnea syndrome (17545997) Obstructive sleep apnea (adult) (pediatric) (G47.33) Active confirmed Problem Essential hypertensi on (49727467) Essential (primary) hypertension (I10) Active confirmed Problem Chronic kidney disea se due to hypertension (194286141961401) Hypertensive chronic kidney disease with stage 1 through stage 4 chronic kidney disease, or unspecified chronic kidney disease (I12.9) Active confirmed Problem Peripheral vascular disease (096237603) Peripheral vascular disease, unspecified (I73.9) Active confirmed Problem Embolism from thrombosis of vein of lower extremity (556164204) Chronic embolism and thrombosis of unspecified deep veins of unspecified lower extremity (I82.509) Active confirmed Problem Uncomplicated mild persistent asthma (593458624) Mild persistent asthma, uncomplicated (J45.30) Active confirmed Problem Polyp of colon (75317713) Polyp of colon (K63.5) Active confirmed Problem Acquired hammer toe of right foot (9320902678147523) Other hammer toe(s) (acquired), right foot (M20.41) Active confirmed Problem Shoulder joint pain (366656429) Pain in left shoulder (M25.512) Active confirmed Problem Lumbosacral radiculopathy (1769170) Radiculopathy, lumbosacral region (M54.17) Active confirmed Problem Dysphagia (52006892) Dysphagia, unspecified (R13.10) Active confirmed Problem Paresthesia (finding ) (70354497) Paresthesia of skin (R20.2) Active confirmed Problem Amputated below knee (987797108) Acquired absence of left leg below knee (Z89.512) Active confirmed Problem Pure hypercholesterolemia (927393029) Pure hypercholesterolem ia, unspecified (E78.00) Active confirmed Problem Chronic kidney disea se stage 3 (disorder) (187972650) Chronic kidney disease, stage 3 unspecified (N18.30) Active confirmed Problem Chronic kidney disea se stage 3A (disorder) (729888179) Chronic kidney disease, stage 3a (N18.31) Active confirmed Problem Type 2 diabetes mellitus with other specified complication, without long-term current use of insulin (E11.69) Active confirmed Problem Urinary incontinence (806353844) Urinary incontinence, unspecified type (R32) Active confirmed Problem Gastroesophageal reflux disease (618864527) Gastroesophageal reflux disease, unspecified whether esophagitis present (K21.9) Active confirmed Vital Signs Heart Rate 79 /min 01/21/2025 Temperature 96.8 degrees Fahrenheit 01/21/2025 Blood pressure diastolic 72 mm Hg 01/21/2025 Oximetry 96 % 01/21/2025 Height 62.24 in 01/21/2025 Blood pressure systolic 130 mm Hg 01/21/2025 Weight 226.0 lbs 01/21/2025 BMI 41.01 kg/m2 01/21/2025 Encounters Encounter Location Date Provider Diagnosis [address] [address] 02/01/2024 JARAMILLO FERNANDA Other conjunctivitis H10.89 ; Left temporomandibular joint disorder, unspecified M26.602 ; Radiculopathy, lumbosacral region M54.17 and Other hammer toe(s) (acquired), right foot M20.[address] [address] 02/21/2024 ELLA MICHAEL Radiculopathy, lumbosacral region M54.17 ; Diabetes mellitus due to underlying condition with diabetic neuropathy, unspecified E08.40 ; Essential (primary) hypertension I10 and Chronic kidney disease, stage 3 unspecified N18.[address] [place] [address] 02/29/2024 Adolfo Vilchis Acute URI J06.[address] [place] [address] 04/18/2024 Adolfo Vilchis Diabetes mellitus du e [...] of micturition R35.0 and Epidermal cyst L72.[address] [address] 05/14/2024 JARAMILLO GUL Pain in right leg M7 9.[address] [address] 05/23/2024 JARAMILLO GUL Diabetes mellitus du e to underlying condition with diabetic neuropathy, unspecified E08.40 ; Essential (primary) hypertension I10 ; Obstructive sleep apnea (adult) (pediatric) G47.33 ; Anxiety disorder, unspecified F41.9 ; Mild persistent asthma, uncomplicated J45.30 ; Chronic embolism and thrombosis of unspecified deep veins of unspecified lower extremity I82.509 and Chronic kidney disease, stage 3 unspecified N18.[address] [address] 07/31/2024 JARAMILLO GUL Diabetes mellitus du e [...] kidney disease, stage 3 unspecified N18.[address] [place] [address] 09/17/2024 JARAMILLO GUL Unspecified fall, in itial encounter W19.XXXA and Pain in right leg M79.[address] [place] [address] 11/26/2024 JARAMILLOMARLON MICHAEL Annual physical exam Z00.00 ; Essential [...] deep veins of unspecified lower extremity I82.[address] [place] [address] 01/21/2025 JARAMILLO GUL Diarrhea, unspecifie d R19.7 and Viral infection, unspecified B34.[address] [place] [address] 02/02/2024 JARAMILLO GUL Other conjunctivitis H10.[address] [place] [address] 02/07/2024 JARAMILLO GUL [address] [place] [address] 02/16/2024 JARAMILLO GUL Diabetes mellitus du e to underlying condition with diabetic neuropathy, unspecified E08.[address] [place] [address] 02/23/2024 JARAMILLO GUL [facility] [address] [place] [address] 02/28/2024 JARAMILLO L [facility] [address] [place] [address] 03/05/2024 [facility] [address] [place] [address] 04/16/2024 JARAMILLO [facility] [address] [place] [address] 04/16/2024 JARAMILLO [facility] [address] [place] [address] 06/21/2024 [facility] [address] [place] [address] 07/13/2024 JARAMILLO [facility] [address] [place] [address] 07/30/2024 [facility] [address] [place] [address] 08/16/2024 [facility] [address] [place] [address] 08/16/2024 [facility] Pure hypercholesterolemia, unspecified E78.00 [facility] [address] [place] [address] 08/22/2024 [facility] [address] [place] [address] 08/22/2024 JARAMILLO [facility] [address] [place] [address] 09/25/2024 JARAMILLO GUL Acute URI J06.9 [facility] [address] [place] [address] 11/08/2024 [facility] [address] [place] [address] 11/12/2024 ELLA MICHAEL [facility] [address] [facility] [address] [place] [address] 11/26/2024 JARAMILLO [facility] Peripheral vascular disease, unspecified I73.9 [facility] [address] [place] [address] 01/17/2025 ELLA MICHAEL Assessments Encounter Date Diagnosis (ICD Code) Assessment Notes Treatment Notes Treatment Clinical Notes Section Notes 01/21/2025 Viral infection, unspecified (ICD-10 - B34.9) Maribell is a 64-year-old lady with DM2, hypertension, hyperlipidemia, asthma, insomnia, anxiety, obstructive sleep apnea, peripheral vascular disease, DVT right lower extremity, obesity, chronic kidney disease stage IIIa and follows up with supervisor powdered metal is for cough, postnasal dripping, diarrhea which is 3-4 times a day and it is watery in consistency. She is also running a low-grade fever. plan is as follows. Viral infection. She is negative for coronavirus 19 infection on home testing. She has history of asthma and she is mild bilateral wheeze. She started on prednisone 20 mg 1 tablet daily for 7 days and Tessalon Perles 100 mg 1 tablet 3 times a day and advised appropriate hydration. Diarrhea. It can be viral gastroenteritis. Stay appropriately hydrated, soft diet and advance as tolerated. 01/21/2025 Diarrhea, unspecified (ICD-10 - R19.7) Maribell is a 64-year-old lady with DM2, hypertension, hyperlipidemia, asthma, insomnia, anxiety, obstructive sleep apnea, peripheral vascular disease, DVT right lower extremity, obesity, chronic kidney disease stage IIIa and follows up with supervisor powdered metal is for cough, postnasal dripping, diarrhea which is 3-4 times a day and it is watery in consistency. She is also running a low-grade fever. plan is as follows. Viral infection. She is negative for coronavirus 19 infection on home testing. She has history of asthma and she is mild bilateral wheeze. She started on prednisone 20 mg 1 tablet daily for 7 days and Tessalon Perles 100 mg 1 tablet 3 times a day and advised appropriate hydration. Diarrhea. It can be viral gastroenteritis. Stay appropriately hydrated, soft diet and advance as tolerated. 05/23/2024 Diabetes mellitus due to underlying condition [...] with diabetic neuropathy. She follows up with [facility] endocrinology and according to patient her last A1c was within normal range. She is seen orchard sprayer in the past. She follows up with supervisor powdered metal and kidney function is stable. Foot care discussed with the patient. Hypertension/hyper lipidemia. Blood pressure well controlled and last lipid panel was within reasonable limits Obstructive sleep apnea. Continue on CPAP machine and no daytime sleepiness. Moderate persistent asthma. She stable when she follows up with cut off worker Anxiety/depression . Stable on current regimen. Considering her neuropathy she may be a good candidate for duloxetine which can be added to her regimen and she will check with her psychiatrist. Chronic kidney disease. She is stable and she follows up with supervisor powdered metal to avoid NSAIDs. Right lower extremity swelling. It is nonpitting edema most likely lymphedema. She is on Eliquis and less likely to be a DVT but considering her history we will do ultrasound right lower extremity in the next few days. 04/18/2024 Diabetes mellitus due to underlying condition [...] afternoon for breakthrough pains. She follows with [facility] Dr. Iraheta. Chronic kidney disease stage 3. -She does not appear to be in volume overload. Advised appropriate hydration. Avoid NSAIDs. She sees Dr. Lakhani. Asthma. -She uses her inhalers as needed. Follows with Dr. [facility] Generalized anxiety disorder. -Mood is stable on Lorazepam 3 times a day. She has a psychiatrist and a therapist. GERD/gastroparesis /dysphagia - Currently she is on omperazole 20m and Reglan 10 MG twice a day. I have increased omperazole to 40mg and advised patient to follow-up with her GI at [place]. She has an appt in May. MUSA: [...] the patient but was available upon request 02/29/2024 Acute URI (ICD-10 - J06.9) aMribell is a 63-year-old lady with DM2, [...] available in the office during the visit 02/21/2024 Diabetes mellitus due to underlying condition with diabetic neuropathy, unspecified (ICD-10 - E08.40) Maribell is a 63-year-old lady with DM2, hypertension, hyperlipidemia, asthma, insomnia and anxiety here for follow up. Plan is as follows: Type II diabetes mellitus. Hb A1c improve energy 6.1.She is on right medications. She has seen her orchard sprayer in the past 1 year. Foot care [...] because she is on temazepam. Referred to [facility] Dr. Iraheta. Chronic kidney [...] this note under HIPAA compliance and under [place] law mandated for scribe services. Patient aware of service. Verbal consent and written consent taken from the patient. Patient understands and verbalizes understanding of the scribes services and all questions answered regarding scribes services. Patient agrees to use of scribes services. 02/16/2024 Diabetes mellitus due to underlying condition with diabetic neuropathy, unspecified (ICD-10 - E08.40) 02/02/2024 Other conjunctivitis (ICD-10 - H10.89) 02/01/2024 Other conjunctivitis (ICD-10 - H10.89) Maribell [...] was negative and it was sent to [facility] for further evaluation and it was [...] this note under HIPAA compliance and under [place] law mandated for scribe services. Patient aware [...] on right medications. She has seen her orchard sprayer in the past 1 year. Foot care [...] because she is on temazepam. Referred to [facility] Dr. Iraheta. Chronic kidney [...] this note under HIPAA compliance and under [place] law mandated for scribe services. Patient aware [...] was negative and it was sent to [facility] for further evaluation and it was [...] this note under HIPAA compliance and under [place] law mandated for scribe services. Patient aware of service. Verbal consent and written consent taken from the patient. Patient understands and verbalizes understanding of the scribes services and all questions answered regarding scribes services. Patient agrees to use of scribes services. 11/26/2024 Essential (primary) hypertension (ICD-10 - I10) Maribell is a 64-year-old lady with DM2, hypertension, hyperlipidemia, asthma, insomnia, anxiety, obstructive sleep apnea, peripheral vascular disease, DVT right lower extremity, obesity, chronic kidney disease stage IIIa and follows up with supervisor powdered metal is here today for annual physical. Diabetes mellitus type 2 with diabetic neuropathy. Her last hemoglobin A1c was 7.1. She is stable on the above-mentioned regimen. She follows up with metal dresser. She is seeing orchard sprayer in the past 1 year. She takes [...] for GLP-1. Advised to talk to her metal dresser to start the medication. EKG is normal [...] disease stage IIIa and follows up with supervisor powdered metal is here today for annual physical. Diabetes mellitus type 2 with diabetic neuropathy. Her last hemoglobin A1c was 7.1. She is stable on the above-mentioned regimen. She follows up with metal dresser. She is seeing orchard sprayer in the past 1 year. She takes [...] for GLP-1. Advised to talk to her metal dresser to start the medication. EKG is normal sinus rhythm at [address] with no acute [address] or T wave changes., no bundle branch blocks, normal intervals She is up to date on age specific screening. She is full code and her is her healthcare proxy 09/25/2024 Acute URI (ICD-10 - J06.9) 09/17/2024 [...] on Eliquis. She was taken to [facility] where she had CT scan of the [...] is on Eliquis. She was taken to [facility] ER where she had CT scan of the head and x-ray of the right leg which were negative. Plan is as follows Hematoma of right [place]. Discussed with the patient that it is superficial and she is low risk for DVTs. Keep the leg elevated and iced the leg. No other intervention is very 07/31/2024 Diabetes mellitus due to underlying condition [...] and hemoglobin A1c and follows up with [facility] end[facility]. She is seen orchard sprayer in the past. She follows up with supervisor powdered metal and kidney function is stable. Foot care discussed with the patient. Hypertension/hyper lipidemia. Blood pressure well controlled and last lipid panel was within reasonable limits Obstructive sleep apnea. Continue on CPAP machine and no daytime sleepiness. Moderate persistent asthma. She stable when she follows up with cut off worker Anxiety/depression . Stable on current regimen. Considering her neuropathy she may be a good candidate for duloxetine which can be added to her regimen and she will check with her psychiatrist. Chronic kidney disease. She is stable and she follows up with supervisor powdered metal to avoid NSAIDs. Right lower extremity swelling. It is nonpitting edema most likely lymphedema. She is on Eliquis and less likely to be a DVT and ultrasound lower extremity was negative. Vaginal candidiasis. She is given fluconazole and advised to control blood sugars 08/16/2024 Pure hypercholesterolemia , unspecified (ICD-10 - E78.00) 05/14/2024 Pain in right leg (ICD-10 - [...] Eliquis 5 mg twice a day 07/31/2024 Essential (primary) hypertension (ICD-10 - I10) [...] and hemoglobin A1c and follows up with [facility]. She is seen orchard sprayer in the past. She follows up with supervisor powdered metal and kidney function is stable. Foot care discussed with the patient. Hypertension/hyper lipidemia. Blood pressure well controlled and last lipid panel was within reasonable limits Obstructive sleep apnea. Continue on CPAP machine and no daytime sleepiness. Moderate persistent asthma. She stable when she follows up with cut off worker Anxiety/depression . Stable on current regimen. Considering her neuropathy she may be a good candidate for duloxetine which can be added to her regimen and she will check with her psychiatrist. Chronic kidney disease. She is stable and she follows up with supervisor powdered metal to avoid NSAIDs. Right lower extremity swelling. [...] and hemoglobin A1c and follows up with [facility]. She is seen orchard sprayer in the past. She follows up with supervisor powdered metal and kidney function is stable. Foot care discussed with the patient. Hypertension/hyper lipidemia. Blood pressure well controlled and last lipid panel was within reasonable limits Obstructive sleep apnea. Continue on CPAP machine and no daytime sleepiness. Moderate persistent asthma. She stable when she follows up with cut off worker Anxiety/depression . Stable on current regimen. Considering her neuropathy she may be a good candidate for duloxetine which can be added to her regimen and she will check with her psychiatrist. Chronic kidney disease. She is stable and she follows up with supervisor powdered metal to avoid NSAIDs. Right lower extremity swelling. It is nonpitting edema most likely lymphedema. She is on Eliquis and less likely to be a DVT and ultrasound lower extremity was negative. Vaginal candidiasis. She is given fluconazole and advised to control blood sugars 11/26/2024 Diabetes mellitus due to underlying condition with diabetic neuropathy, unspecified (ICD-10 - E08.40) Maribell is a 64-year-old lady with DM2, hypertension, hyperlipidemia, asthma, insomnia, anxiety, obstructive sleep apnea, peripheral vascular disease, DVT right lower extremity, obesity, chronic kidney disease stage IIIa and follows up with supervisor powdered metal is here today for annual physical. Diabetes mellitus type 2 with diabetic neuropathy. Her last hemoglobin A1c was 7.1. She is stable on the above-mentioned regimen. She follows up with metal dresser. She is seeing orchard sprayer in the past 1 year. She takes [...] for GLP-1. Advised to talk to her metal dresser to start the medication. EKG is normal sinus rhythm at [address] with [address] or T wave changes., no bundle branch blocks, normal intervals She is up to date on age specific screening. She is full code and her is her healthcare proxy 02/01/2024 Radiculopathy, lumbosacral region (ICD-10 - M54.17) [...] was negative and it was sent to [facility] for further evaluation and it was [...] this note under HIPAA compliance and under [place] law mandated for scribe services. Patient aware of service. Verbal consent and written consent taken from the patient. Patient understands and verbalizes understanding of the scribes services and all questions answered regarding scribes services. Patient agrees to use of scribes services. 02/21/2024 Essential (primary) hypertension (ICD-10 - I10) Maribell is a 63-year-old lady with DM2, hypertension, hyperlipidemia, asthma, insomnia and anxiety here for follow up. Plan is as follows: Type II diabetes mellitus. Hb A1c improve energy 6.1.She is on right medications. She has seen her orchard sprayer in the past 1 year. Foot care [...] because she is on temazepam. Referred to [facility] Dr. Iraheta. Chronic kidney [...] this note under HIPAA compliance and under [place] law mandated for scribe services. Patient aware of service. Verbal consent and written consent taken from the patient. Patient understands and verbalizes understanding of the scribes services and all questions answered regarding scribes services. Patient agrees to use of scribes services. 11/26/2024 Peripheral vascular disease, unspecified (ICD-10 - I73.9) 05/23/2024 Essential (primary) hypertension (ICD-10 - I10) Maribell is 63 years old lady with DM type II, hypertension, hyperlipidemia, morbid persistent asthma, generalized anxiety disorder/depressio n, chronic kidney disease stage IIIa, trigeminal neuralgia, obstructive sleep apnea, chronic pain syndrome is here for follow-up. Plan is as follows Diabetes mellitus type 2 with diabetic neuropathy. She follows up with [facility] and according to patient her last A1c was within normal range. She is seen orchard sprayer in the past. She follows up with supervisor powdered metal and kidney function is stable. Foot care discussed with the patient. Hypertension/hyper lipidemia. Blood pressure well controlled and last lipid panel was within reasonable limits Obstructive sleep apnea. Continue on CPAP machine and no daytime sleepiness. Moderate persistent asthma. She stable when she follows up with cut off worker Anxiety/depression . Stable on current regimen. Considering her neuropathy she may be a good candidate for duloxetine which can be added to her regimen and she will check with her psychiatrist. Chronic kidney disease. She is stable and she follows up with supervisor powdered metal to avoid NSAIDs. Right lower extremity swelling. [...] afternoon for breakthrough pains. She follows with [facility] Dr. Iraheta. Chronic kidney disease stage 3. -She does not appear to be in volume overload. Advised appropriate hydration. Avoid NSAIDs. She sees Dr. Lakhani. Asthma. -She uses her inhalers as needed. Follows with Dr. Shipley-[facility] Generalized anxiety disorder. -Mood is stable on Lorazepam 3 times a day. She has a psychiatrist and a therapist. GERD/gastroparesis /dysphagia - Currently she is on omperazole 20m and Reglan 10 MG twice a day. I have increased omperazole to 40mg and advised patient to follow-up with her GI at [place]. She has an appt in May. MUSA: [...] afternoon for breakthrough pains. She follows with [facility] Dr. Iraheta. Chronic kidney disease stage 3. -She does not appear to be in volume overload. Advised appropriate hydration. Avoid NSAIDs. She sees Dr. Lakhain. Asthma. -She uses her inhalers as needed. Follows with Dr. Shipley-[facility] Generalized anxiety disorder. -Mood is stable on Lorazepam 3 times a day. She has a psychiatrist and a therapist. GERD/gastroparesis /dysphagia - Currently she is on omperazole 20m and Reglan 10 MG twice a day. I have increased omperazole to 40mg and advised patient to follow-up with her GI at [place]. She has an appt in May. MUSA: [...] patient but was available upon request 05/23/2024 Obstructive sleep apnea (adult) (pediatric) (ICD-10 - G47.33) Maribell is 63 years old lady with DM type II, hypertension, hyperlipidemia, morbid persistent asthma, generalized anxiety disorder/depressio n, chronic kidney disease stage IIIa, trigeminal neuralgia, obstructive sleep apnea, chronic pain syndrome is here for follow-up. Plan is as follows Diabetes mellitus type 2 with diabetic neuropathy. She follows up with [facility] and according to patient her last A1c was within normal range. She is seen orchard sprayer in the past. She follows up with supervisor powdered metal and kidney function is stable. Foot care discussed with the patient. Hypertension/hyper lipidemia. Blood pressure well controlled and last lipid panel was within reasonable limits Obstructive sleep apnea. Continue on CPAP machine and no daytime sleepiness. Moderate persistent asthma. She stable when she follows up with cut off worker Anxiety/depression . Stable on current regimen. Considering her neuropathy she may be a good candidate for duloxetine which can be added to her regimen and she will check with her psychiatrist. Chronic kidney disease. She is stable and she follows up with supervisor powdered metal to avoid NSAIDs. Right lower extremity swelling. It is nonpitting edema most likely lymphedema. She is on Eliquis and less likely to be a DVT but considering her history we will do ultrasound right lower extremity in the next few days. 02/21/2024 Chronic kidney disease, stage 3 unspecified (ICD-10 - N18.30) Maribell is a 63-year-old lady with DM2, hypertension, hyperlipidemia, asthma, insomnia and anxiety here for follow up. Plan is as follows: Type II diabetes mellitus. Hb A1c improve energy 6.1.She is on right medications. She has seen her orchard sprayer in the past 1 year. Foot care [...] because she is on temazepam. Referred to [facility] Dr. Iraheta. Chronic kidney [...] this note under HIPAA compliance and under [place] law mandated for scribe services. Patient aware [...] was negative and it was sent to [facility] for further evaluation and it was [...] this note under HIPAA compliance and under [place] law mandated for scribe services. Patient aware [...] disease stage IIIa and follows up with supervisor powdered metal is here today for annual physical. Diabetes mellitus type 2 with diabetic neuropathy. Her last hemoglobin A1c was 7.1. She is stable on the above-mentioned regimen. She follows up with metal dresser. She is seeing orchard sprayer in the past 1 year. She takes [...] for GLP-1. Advised to talk to her metal dresser to start the medication. EKG is normal sinus rhythm at [address] with no acute [address] or T wave changes., no bundle branch blocks, normal intervals She is up to date on age specific screening. She is full code and her is her healthcare proxy 07/31/2024 Obstructive sleep apnea (adult) (pediatric) (ICD-10 [...] and hemoglobin A1c and follows up with [facility]. She is seen orchard sprayer in the past. She follows up with supervisor powdered metal and kidney function is stable. Foot care discussed with the patient. Hypertension/hyper lipidemia. Blood pressure well controlled and last lipid panel was within reasonable limits Obstructive sleep apnea. Continue on CPAP machine and no daytime sleepiness. Moderate persistent asthma. She stable when she follows up with cut off worker Anxiety/depression . Stable on current regimen. Considering her neuropathy she may be a good candidate for duloxetine which can be added to her regimen and she will check with her psychiatrist. Chronic kidney disease. She is stable and she follows up with supervisor powdered metal to avoid NSAIDs. Right lower extremity swelling. It is nonpitting edema most likely lymphedema. She is on Eliquis and less likely to be a DVT and ultrasound lower extremity was negative. Vaginal candidiasis. She is given fluconazole and advised to control blood sugars 11/26/2024 Chronic kidney disease, stage 3a (ICD-10 - N18.31) Maribell is a 64-year-old lady with DM2, hypertension, hyperlipidemia, asthma, insomnia, anxiety, obstructive sleep apnea, peripheral vascular disease, DVT right lower extremity, obesity, chronic kidney disease stage IIIa and follows up with supervisor powdered metal is here today for annual physical. Diabetes mellitus type 2 with diabetic neuropathy. Her last hemoglobin A1c was 7.1. She is stable on the above-mentioned regimen. She follows up with metal dresser. She is seeing orchard sprayer in the past 1 year. She takes [...] for GLP-1. Advised to talk to her metal dresser to start the medication. EKG is normal [...] and hemoglobin A1c and follows up with [facility]. She is seen orchard sprayer in the past. She follows up with supervisor powdered metal and kidney function is stable. Foot care discussed with the patient. Hypertension/hyper lipidemia. Blood pressure well controlled and last lipid panel was within reasonable limits Obstructive sleep apnea. Continue on CPAP machine and no daytime sleepiness. Moderate persistent asthma. She stable when she follows up with cut off worker Anxiety/depression . Stable on current regimen. Considering her neuropathy she may be a good candidate for duloxetine which can be added to her regimen and she will check with her psychiatrist. Chronic kidney disease. She is stable and she follows up with supervisor powdered metal to avoid NSAIDs. Right lower extremity swelling. [...] afternoon for breakthrough pains. She follows with [facility] Dr. Iraheta. Chronic kidney disease stage 3. -She does not appear to be in volume overload. Advised appropriate hydration. Avoid NSAIDs. She sees Dr. Lakhani. Asthma. -She uses her inhalers as needed. Follows with Dr. Shipley-[facility] Generalized anxiety disorder. -Mood is stable on Lorazepam 3 times a day. She has a psychiatrist and a therapist. GERD/gastroparesis /dysphagia - Currently she is on omperazole 20m and Reglan 10 MG twice a day. I have increased omperazole to 40mg and advised patient to follow-up with her GI at [place]. She has an appt in May. MUSA: [...] with diabetic neuropathy. She follows up with [facility] and according to patient her last A1c was within normal range. She is seen orchard sprayer in the past. She follows up with supervisor powdered metal and kidney function is stable. Foot care discussed with the patient. Hypertension/hyper lipidemia. Blood pressure well controlled and last lipid panel was within reasonable limits Obstructive sleep apnea. Continue on CPAP machine and no daytime sleepiness. Moderate persistent asthma. She stable when she follows up with cut off worker Anxiety/depression . Stable on current regimen. Considering her neuropathy she may be a good candidate for duloxetine which can be added to her regimen and she will check with her psychiatrist. Chronic kidney disease. She is stable and she follows up with supervisor powdered metal to avoid NSAIDs. Right lower extremity swelling. [...] with diabetic neuropathy. She follows up with [facility] and according to patient her last A1c was within normal range. She is seen orchard sprayer in the past. She follows up with supervisor powdered metal and kidney function is stable. Foot care discussed with the patient. Hypertension/hyper lipidemia. Blood pressure well controlled and last lipid panel was within reasonable limits Obstructive sleep apnea. Continue on CPAP machine and no daytime sleepiness. Moderate persistent asthma. She stable when she follows up with cut off worker Anxiety/depression . Stable on current regimen. Considering her neuropathy she may be a good candidate for duloxetine which can be added to her regimen and she will check with her psychiatrist. Chronic kidney disease. She is stable and she follows up with supervisor powdered metal to avoid NSAIDs. Right lower extremity swelling. [...] afternoon for breakthrough pains. She follows with [facility] Dr. Iraheta. Chronic kidney disease stage 3. -She does not appear to be in volume overload. Advised appropriate hydration. Avoid NSAIDs. She sees Dr. Lakhani. Asthma. -She uses her inhalers as needed. Follows with Dr. Shipley[facility] Generalized anxiety disorder. -Mood is stable on Lorazepam 3 times a day. She has a psychiatrist and a therapist. GERD/gastroparesis /dysphagia - Currently she is on omperazole 20m and Reglan 10 MG twice a day. I have increased omperazole to 40mg and advised patient to follow-up with her GI at [place]. She has an appt in May. MUSA: [...] the patient but was available upon request 11/26/2024 Hypertensive chronic kidney disease with stage 1 through stage 4 chronic kidney disease, or unspecified chronic kidney disease (ICD-10 - I12.9) Maribell is a 64-year-old lady with DM2, hypertension, hyperlipidemia, asthma, insomnia, anxiety, obstructive sleep apnea, peripheral vascular disease, DVT right lower extremity, obesity, chronic kidney disease stage IIIa and follows up with supervisor powdered metal is here today for annual physical. Diabetes mellitus type 2 with diabetic neuropathy. Her last hemoglobin A1c was 7.1. She is stable on the above-mentioned regimen. She follows up with metal dresser. She is seeing orchard sprayer in the past 1 year. She takes [...] for GLP-1. Advised to talk to her metal dresser to start the medication. EKG is normal sinus rhythm at [address] with no acute [address] or T wave changes., no bundle branch blocks, normal intervals She is up to date on age specific screening. She is full code and her is her healthcare proxy 07/31/2024 Mild persistent asthma, uncomplicated (ICD-10 - [...] and hemoglobin A1c and follows up with [facility] end[facility]. She is seen orchard sprayer in the past. She follows up with supervisor powdered metal and kidney function is stable. Foot care discussed with the patient. Hypertension/hyper lipidemia. Blood pressure well controlled and last lipid panel was within reasonable limits Obstructive sleep apnea. Continue on CPAP machine and no daytime sleepiness. Moderate persistent asthma. She stable when she follows up with cut off worker Anxiety/depression . Stable on current regimen. Considering her neuropathy she may be a good candidate for duloxetine which can be added to her regimen and she will check with her psychiatrist. Chronic kidney disease. She is stable and she follows up with supervisor powdered metal to avoid NSAIDs. Right lower extremity swelling. [...] and hemoglobin A1c and follows up with [facility] end[facility]. She is seen orchard sprayer in the past. She follows up with supervisor powdered metal and kidney function is stable. Foot care discussed with the patient. Hypertension/hyper lipidemia. Blood pressure well controlled and last lipid panel was within reasonable limits Obstructive sleep apnea. Continue on CPAP machine and no daytime sleepiness. Moderate persistent asthma. She stable when she follows up with cut off worker Anxiety/depression . Stable on current regimen. Considering her neuropathy she may be a good candidate for duloxetine which can be added to her regimen and she will check with her psychiatrist. Chronic kidney disease. She is stable and she follows up with supervisor powdered metal to avoid NSAIDs. Right lower extremity swelling. It is nonpitting edema most likely lymphedema. She is on Eliquis and less likely to be a DVT and ultrasound lower extremity was negative. Vaginal candidiasis. She is given fluconazole and advised to control blood sugars 11/26/2024 Mild persistent asthma, uncomplicated (ICD-10 - J45.30) Maribell is a 64-year-old lady with DM2, hypertension, hyperlipidemia, asthma, insomnia, anxiety, obstructive sleep apnea, peripheral vascular disease, DVT right lower extremity, obesity, chronic kidney disease stage IIIa and follows up with supervisor powdered metal is here today for annual physical. Diabetes mellitus type 2 with diabetic neuropathy. Her last hemoglobin A1c was 7.1. She is stable on the above-mentioned regimen. She follows up with metal dresser. She is seeing orchard sprayer in the past 1 year. She takes [...] for GLP-1. Advised to talk to her metal dresser to start the medication. EKG is normal sinus rhythm at [address]pm with no acute ST or T wave changes., no bundle branch blocks, normal intervals She is up to date on age specific screening. She is full code and her is her healthcare proxy 04/18/2024 Anxiety disorder, unspecified (ICD-10 - F41.9) [...] afternoon for breakthrough pains. She follows with [facility] Dr. Iraheta. Chronic kidney disease stage 3. -She does not appear to be in volume overload. Advised appropriate hydration. Avoid NSAIDs. She sees Dr. Lakhani. Asthma. -She uses her inhalers as needed. Follows with Dr. [facility] Generalized anxiety disorder. -Mood is stable on Lorazepam 3 times a day. She has a psychiatrist and a therapist. GERD/gastroparesis /dysphagia - Currently she is on omperazole 20m and Reglan 10 MG twice a day. I have increased omperazole to 40mg and advised patient to follow-up with her GI at [facility]. She has an appt in May. MUSA: [...] with diabetic neuropathy. She follows up with [facility] endocrinology and according to patient her last A1c was within normal range. She is seen orchard sprayer in the past. She follows up with supervisor powdered metal and kidney function is stable. Foot care discussed with the patient. Hypertension/hyper lipidemia. Blood pressure well controlled and last lipid panel was within reasonable limits Obstructive sleep apnea. Continue on CPAP machine and no daytime sleepiness. Moderate persistent asthma. She stable when she follows up with cut off worker Anxiety/depression . Stable on current regimen. Considering her neuropathy she may be a good candidate for duloxetine which can be added to her regimen and she will check with her psychiatrist. Chronic kidney disease. She is stable and she follows up with supervisor powdered metal to avoid NSAIDs. Right lower extremity swelling. [...] with diabetic neuropathy. She follows up with [facility] endocrinology and according to patient her last A1c was within normal range. She is seen orchard sprayer in the past. She follows up with supervisor powdered metal and kidney function is stable. Foot care discussed with the patient. Hypertension/hyper lipidemia. Blood pressure well controlled and last lipid panel was within reasonable limits Obstructive sleep apnea. Continue on CPAP machine and no daytime sleepiness. Moderate persistent asthma. She stable when she follows up with cut off worker Anxiety/depression . Stable on current regimen. Considering her neuropathy she may be a good candidate for duloxetine which can be added to her regimen and she will check with her psychiatrist. Chronic kidney disease. She is stable and she follows up with supervisor powdered metal to avoid NSAIDs. Right lower extremity swelling. [...] afternoon for breakthrough pains. She follows with [facility] Dr. Iraheta. Chronic kidney disease stage 3. -She does not appear to be in volume overload. Advised appropriate hydration. Avoid NSAIDs. She sees Dr. Lakhani. Asthma. -She uses her inhalers as needed. [facility]. -Mood is stable on Lorazepam 3 times a day. She has a psychiatrist and a therapist. GERD/gastroparesis /dysphagia - Currently she is on omperazole 20m and Reglan 10 MG twice a day. I have increased omperazole to 40mg and advised patient to follow-up with her GI at [facility]. She has an appt in May. MUSA: [...] the patient but was available upon request 11/26/2024 Obstructive sleep apnea (adult) (pediatric) (ICD-10 - G47.33) Maribell is a 64-year-old lady with DM2, hypertension, hyperlipidemia, asthma, insomnia, anxiety, obstructive sleep apnea, peripheral vascular disease, DVT right lower extremity, obesity, chronic kidney disease stage IIIa and follows up with supervisor powdered metal is here today for annual physical. Diabetes mellitus type 2 with diabetic neuropathy. Her last hemoglobin A1c was 7.1. She is stable on the above-mentioned regimen. She follows up with metal dresser. She is seeing orchard sprayer in the past 1 year. She takes [...] for GLP-1. Advised to talk to her metal dresser to start the medication. EKG is normal sinus rhythm at 88 bpm with no acute ST or T wave changes., no bundle branch blocks, normal intervals She is up to date on age specific screening. She is full code and her is her healthcare proxy 07/31/2024 Chronic kidney disease, stage 3 unspecified [...] and hemoglobin A1c and follows up with [facility] endocrinology. She is seen orchard sprayer in the past. She follows up with supervisor powdered metal and kidney function is stable. Foot care discussed with the patient. Hypertension/hyper lipidemia. Blood pressure well controlled and last lipid panel was within reasonable limits Obstructive sleep apnea. Continue on CPAP machine and no daytime sleepiness. Moderate persistent asthma. She stable when she follows up with cut off worker Anxiety/depression . Stable on current regimen. Considering her neuropathy she may be a good candidate for duloxetine which can be added to her regimen and she will check with her psychiatrist. Chronic kidney disease. She is stable and she follows up with supervisor powdered metal to avoid NSAIDs. Right lower extremity swelling. It is nonpitting edema most likely lymphedema. She is on Eliquis and less likely to be a DVT and ultrasound lower extremity was negative. Vaginal candidiasis. She is given fluconazole and advised to control blood sugars 11/26/2024 Chronic embolism and thrombosis of unspecified deep veins of unspecified lower extremity (ICD-10 - I82.509) Maribell is a 64-year-old lady with DM2, hypertension, hyperlipidemia, asthma, insomnia, anxiety, obstructive sleep apnea, peripheral vascular disease, DVT right lower extremity, obesity, chronic kidney disease stage IIIa and follows up with supervisor powdered metal is here today for annual physical. Diabetes mellitus type 2 with diabetic neuropathy. Her last hemoglobin A1c was 7.1. She is stable on the above-mentioned regimen. She follows up with metal dresser. She is seeing orchard sprayer in the past 1 year. She takes [...] for GLP-1. Advised to talk to her metal dresser to start the medication. EKG is normal [...] afternoon for breakthrough pains. She follows with [facility] Dr. Iraheta. Chronic kidney [...] patient to follow-up with her GI at [facility]. She has an appt in May. MUSA: [...] afternoon for breakthrough pains. She follows with [facility] Dr. Iraheta. Chronic kidney [...] patient to follow-up with her GI at [facility]. She has an appt in May. MUSA: [...] afternoon for breakthrough pains. She follows with [facility] Dr. Iraheta. Chronic kidney disease stage 3. -She does not appear to be in volume overload. Advised appropriate hydration. Avoid NSAIDs. She sees Dr. Lakhain. Asthma. -She uses her inhalers as needed. Follows with Dr. [facility] Generalized anxiety disorder. -Mood is stable on Lorazepam 3 times a day. She has a psychiatrist and a therapist. GERD/gastroparesis /dysphagia - Currently she is on omperazole 20m and Reglan 10 MG twice a day. I have increased omperazole to 40mg and advised patient to follow-up with her GI at [facility]. She has an appt in May. MUSA: [...] afternoon for breakthrough pains. She follows with [facility] Dr. Iraheta. Chronic kidney disease stage 3. -She does not appear to be in volume overload. Advised appropriate hydration. Avoid NSAIDs. She sees Dr. Lakhani. Asthma. -She uses her inhalers as needed. Follows with Dr. [facility] Generalized anxiety disorder. -Mood is stable on Lorazepam 3 times a day. She has a psychiatrist and a therapist. GERD/gastroparesis /dysphagia - Currently she is on omperazole 20m and Reglan 10 MG twice a day. I have increased omperazole to 40mg and advised patient to follow-up with her GI at [facility]. She has an appt in May. MUSA: [...] afternoon for breakthrough pains. She follows with [facility] Dr. Iraheta. Chronic kidney disease stage 3. -She does not appear to be in volume overload. Advised appropriate hydration. Avoid NSAIDs. She sees Dr. Lakhani. Asthma. -She uses her inhalers as needed. Follows with Dr. [facility] Generalized anxiety disorder. -Mood is stable on Lorazepam 3 times a day. She has a psychiatrist and a therapist. GERD/gastroparesis /dysphagia - Currently she is on omperazole 20m and Reglan 10 MG twice a day. I have increased omperazole to 40mg and advised patient to follow-up with her GI at [facility]. She has an appt in May. MUSA: [...] afternoon for breakthrough pains. She follows with [facility] Dr. Iraheta. Chronic kidney disease stage 3. -She does not appear to be in volume overload. Advised appropriate hydration. Avoid NSAIDs. She sees Dr. Lakhani. Asthma. -She uses her inhalers as needed. Follows with Dr. [facility] Generalized anxiety disorder. -Mood is stable on Lorazepam 3 times a day. She has a psychiatrist and a therapist. GERD/gastroparesis /dysphagia - Currently she is on omperazole 20m and Reglan 10 MG twice a day. I have increased omperazole to 40mg and advised patient to follow-up with her GI at [facility]. She has an appt in May. MUSA: [...] Provider Name:ELLA MICHAEL , 05/29/2025 10:30:00 AM, [address] [place] [address], [place], [id number], Insurance Providers Payer Name Payer Address Payer Phone Subscriber Number Group Number Insured Name Patient Relationship to Insured Coverage Start Date Coverage End Date [facility] [address] [place] [address] [id number] Maribell Taylor Self - patient is the insured Medical (General) History Medical History History ICD Code hypertension, benign hyperlipidemia IDDM T 2, [facility] endo Urinary incontinence and she sees Dr. England at [facility] Left shoulder pain and she sees Dr. Alida villa and she is also seen Dr. Diaz Asthma and she sees Pul at [facility] Generalized anxiety disorder and she is seen by a psychiatrist and she goes to [facility] Pain management and has seen Dr. Montiel at [facility] in past Peripheral arterial disease and status post amputation below knee joint currently on Coumadin and goes to Coumadin clinic Lumbar radiculopathy on oxycodone 30 mg 3 times a day DVT leg LE sleep apnea see Pul at [facility] Left leg amputation below [...]
[2025-02-08 09:57] VITALS: BMI 39.5
--- NOTE | 2025-02-08 11:55 | HO.ANESPROP2 ---
HPI - Anesthesia Eval Consult details Narrative: 64 yr old female for Cystoscopy Bladder Botox Injection Had cystoscopy with botox with TIVA 08/2024 Type 2 DM: A1 6.6% 05/01 Morbid obesity: BMI 39.5 Chronic DVT: on eliquis MUSA: unsure of CPAP status Asthma: has ICS, prn JOHN, on montelukast Anesthesia Pre-Procedure Meds Is the patient on any of the following meds?: GLP1/DPP4 PMFSH Active Problems Active Problems: All Active Problems On antiepileptic therapy (Acute) Cluster headache (Acute) Ulnar neuropathy (Acute) Carpal tunnel syndrome (Acute) OAB (overactive bladder) (Acute) Neuroforaminal stenosis of cervical spine (Acute) Urge incontinence of urine (Acute) Spastic neurogenic bladder (Acute) Cervical dystonia (Acute) Left temporal headache (Acute) Left-sided temporomandibular joint pain-dysfunction syndrome (Acute) Cervicalgia (Acute) Acute diarrhea (Acute) Lower urinary tract symptoms (Acute) Giant cell arteritis (Acute) Multiple food allergies (Acute) Multiple drug allergies (Acute) GERD (gastroesophageal reflux disease) (Acute) Lumbosacral radiculopathy due to degenerative joint disease of spine (Acute) Generalized anxiety disorder (Acute) Amputation of left lower extremity below knee (Acute) Chronic deep vein thrombosis (DVT) (Acute) Chronic anticoagulation (Acute) Peripheral arterial disease (Acute) Chronic, continuous use of opioids (Acute) Chronic pain (Acute) Chronic kidney disease, stage 3 (Acute) IDDM (insulin dependent diabetes mellitus) (Acute) High cholesterol (Acute) MUSA (obstructive sleep apnea) (Acute) Asthma (Acute) Morbid obesity (Acute) Pelvic floor dysfunction in female (Acute) Gastroparesis (Acute) HTN (hypertension) (Acute) Diabetes mellitus (Acute) Urinary incontinence (Acute) Past Medical History Medical History Amputated toe of right foot Ganglion cyst Gastroparesis COVID-19 HTN (hypertension) Diabetes mellitus Urinary incontinence UTI (urinary tract infection) Family History Family history of problems with anesthesia: No Surgical History Surgical History History of left below knee amputation S/P carpal tunnel release History of surgical removal of ganglion cyst S/P rotator cuff repair History of surgery History of Problems with Anesthesia: No Social History Social History Are you a primary home health aide caregiver to a significant other at home: No Do you presently have visiting nurse or other home services: No Alcohol intake: never Patient Tobacco Use Status: Former Tobacco user Substance Use Type: Marijuana Current occupational status: disabled Current occupation: rt handed Meds Allergies Allergy/AdvReac Type Severity Reaction Status Date / Time octopus Allergy Severe Anaphylaxis Verified 01/08/25 10:11 oxybutynin Allergy Severe Difficulty Verified 01/08/25 10:11 Swallowing tolterodine Allergy Severe Difficulty Verified 01/08/25 10:11 Swallowing aspirin Allergy Unknown anaphylaxis Verified 01/08/25 10:11 citalopram Allergy Unknown Unknown Verified 01/08/25 10:11 empagliflozin (From Allergy Unknown Unknown Verified 01/08/25 10:11 Jardiance) Fish Containing Products Allergy Unknown Unknown Verified 01/08/25 10:11 gabapentin Allergy Unknown hives Verified 01/08/25 10:11 hydrocodone (Vicodin) Allergy Unknown hives Verified 01/08/25 10:11 naproxen (Naprosyn) Allergy Unknown anaphylaxis Verified 01/08/25 10:11 oxycodone (Percocet) Allergy Unknown hives Verified 01/08/25 10:11 pregabalin (From Lyrica) Allergy Unknown Unknown Verified 01/08/25 10:11 sertraline Allergy Unknown Unknown Verified 01/08/25 10:11 shellfish derived Allergy Unknown Unknown Verified 01/08/25 10:11 peanut Allergy Anaphylaxis Verified 01/08/25 10:11 solifenacin AdvReac phlegm Verified 01/08/25 10:11 Vicodin Allergy Unknown hives Uncoded 01/08/25 10:11 Home Medications ?Medication ?Instructions ?Recorded ?Confirmed ?Last Taken ?Type alcohol swabs pad topical TID 10/16/20 07/30/24 Unknown History amlodipine 5 mg tablet 5 mg PO DAILY 10/16/20 12/24/24 09/04/24 History apixaban 5 mg tablet 5 mg PO BID 10/16/20 12/24/24 08/26/24 History atorvastatin 10 mg tablet 10 mg PO DAILY 10/16/20 12/24/24 Unknown History blood sugar diagnostic #10 ea 10/16/20 07/30/24 Unknown History cholecalciferol (vitamin D3) 50 50 mcg PO BEDTIME 10/16/20 12/24/24 Unknown History mcg (2,000 unit) capsule citalopram 40 mg tablet 40 mg PO DAILY 10/16/20 12/24/24 04/25/23 History diclofenac sodium 1 % topical gel g topical 10/16/20 07/30/24 Unknown History fluticasone propionate 50 0 mcg intranasal BID 10/16/20 12/24/24 Unknown History mcg/actuation nasal spray,suspension hydrochlorothiazide 25 mg tablet 25 mg PO QAM 10/16/20 12/24/24 Unknown History lancets 30 gauge #100 ea 10/16/20 07/30/24 Unknown History loratadine 10 mg tablet 10 mg PO DAILY 10/16/20 12/24/24 Unknown History losartan 100 mg tablet 100 mg PO DAILY 10/16/20 12/24/24 09/04/24 History metoprolol succinate 100 mg 100 mg PO DAILY 10/16/20 12/24/24 Unknown History tablet,extended release 24 hr montelukast 10 mg tablet 10 mg PO DAILY 10/16/20 12/24/24 Unknown History pen needle, diabetic 32 gauge x #50 ea 10/16/20 07/30/24 Unknown History temazepam 30 mg capsule 30 mg PO BEDTIME PRN Sleep 10/16/20 12/24/24 Unknown History triamcinolone acetonide 0.025 % appl topical 10/16/20 07/30/24 Unknown History topical cream insulin glargine 100 unit/mL (3 unit subcut BEDTIME 08/14/21 07/30/24 Unknown History mL) subcutaneous pen (Lantus Solostar U-100 Insulin) insulin lispro 100 unit/mL 30 unit subcut TID 08/14/21 12/24/24 Unknown History subcutaneous pen ezetimibe 10 mg tablet 10 mg PO DAILY 01/13/23 12/24/24 Unknown History hydroxyzine HCl 25 mg tablet 25 mg PO DAILY 01/13/23 12/24/24 Unknown History lorazepam 1 mg tablet 1 mg PO BID 01/13/23 12/24/24 Unknown History metformin 850 mg tablet 850 mg PO BID 01/13/23 12/24/24 Unknown History citalopram 20 mg tablet 20 mg PO DAILY 09/28/24 12/24/24 Unknown History semaglutide 0.25 mg or 0.5 mg (2 mg subcut 09/28/24 Unknown History mg/3 mL) subcutaneous pen injector (Ozempic) Exam Height,Weight and Vital Signs: Height 5 ft 2 in Weight 98 kg Assessment and Plan Final Anesthetic Review Family History of Problems with Anesthesia: No History of Problems with Anesthesia: No
[2025-02-12 08:16] LABS: Glucose, Whole Blood 406 mg/dL (60-115)
--- NOTE | 2025-02-12 08:23 | PC.NURSE ---
Pt arrived to Pre op, states feels woozy and thought she had a low blood sugar. Pt reports had 4oz. of apple juice at 7am. RN checked BG = 406 at 8:15am. RN d/w anesthesia, Dr. Tse. Procedure cx. Pt to be sent to ED for further evaluation.
--- NOTE | 2025-02-12 08:36 | P.ENANES_ITS ---
Anesthesia Event Note Date of Service: 02/12/25 Event Note: Patient was scheduled for an elective procedure today - cystoscopy with botox injection to the bladder. She reported feeling woozy for a few days now and drank some apple juice on the way to [facility]. POC glucose was 406 in pre-op. Patient states that she did not take any insulin today or yesterday. Procedure was cancelled, and patient will be transferred to the ED for further work-up and management. [id number] phone conversation made with Dr. Kumari. Time Spent With Patient Time: Total time managing care of this patient today ____ minutes.
--- NOTE | 2025-02-12 08:45 | PC.NURSE ---
Report given to [facility] charge nurse. Pt transported to ED via w/c.
== END ==
LOC: HO.SSS 07:50
PROVIDERS: PCP Hospitalist; Visit Provider Urology
DX: N32.81 Overactive bladder (principal); Z53.09 Procedure and treatment not carried out because of other contraindication; E11.9 Type 2 diabetes mellitus without complications; Z79.4 Long term (current) use of insulin
CPT/HCPCS: 82947; 99499; J0585

== ENCOUNTER 2025-02-12 08:51 | Emergency (ER) | payer OTHER, SELFPAY ==
--- NOTE | 2025-02-12 08:56 | ECG_ITS ---
Test Reason : WEAKNESS Blood Pressure : */* mmHG Vent. Rate : 70 BPM Atrial Rate : 70 BPM P-R Int : 140 ms QRS Dur : 80 ms QT Int : 410 ms P-R-T Axes : 11 9 19 degrees QTcB Int : 442 ms Normal sinus rhythm Possible Anterior infarct , age undetermined Abnormal ECG When compared with ECG of 30-May-2023 14:27, No significant change was found Referred By: Bonnie Kumari Electronically Signed By: JOSE MOREIRA MD
[2025-02-12 08:58] VITALS: BP 124/54; PULSE 72; RESP 18; O2SAT 98; BMI 42.1
--- NOTE | 2025-02-12 09:07 | ED.RECABL ---
HPI - Recheck/Abnormal Lab/Rx General Chief Complaint: Recheck/Abnormal Lab/Rx Stated Complaint: Sent from [facility], pt hyperglycemia. Sugar over 400 Time Seen by Provider: 02/12/25 08:55 Source: patient and old records reviewed Mode of arrival: wheelchair Limitations: no limitations History of Present Illness ED Provider: DAO ALMENDAREZ narrative: 64 yo female with PMH of DM, HTN, LLE amputation, hx of blood clots in leg on eliquis, urinary incontinence due for botox injections and cystoscopy today but she states she hasn't take her eliquis or any oral/inj diabetic medications in 3 days. She was in pre op and c/o fatigue and she was noted to have bs of 406. She notes other than fatigue she has no fevers, urinary symptoms. Her procedure was held. She states in the past they have done the same with holding DM medications and she has done okay. complaint: abnormal lab Initial visit (ago): hour(s) (1) Initial visit for: other Returns today for: called because of abnormal lab/test Description of abnormal result: BS 406 Symptoms since prior visit: no new symptoms Context: other Associated symptoms: malaise Related Data Home Medications ?Medication ?Instructions ?Recorded ?Confirmed alcohol swabs pad topical TID 10/16/20 07/30/24 amlodipine 5 mg tablet 5 mg PO DAILY 10/16/20 12/24/24 apixaban 5 mg tablet 5 mg PO BID 10/16/20 12/24/24 atorvastatin 10 mg tablet 10 mg PO DAILY 10/16/20 12/24/24 blood sugar diagnostic #10 ea 10/16/20 07/30/24 cholecalciferol (vitamin D3) 50 50 mcg PO BEDTIME 10/16/20 12/24/24 mcg (2,000 unit) capsule citalopram 40 mg tablet 40 mg PO DAILY 10/16/20 12/24/24 diclofenac sodium 1 % topical gel g topical 10/16/20 07/30/24 fluticasone propionate 50 0 mcg intranasal BID 10/16/20 12/24/24 mcg/actuation nasal spray,suspension hydrochlorothiazide 25 mg tablet 25 mg PO QAM 10/16/20 12/24/24 lancets 30 gauge #100 ea 10/16/20 07/30/24 loratadine 10 mg tablet 10 mg PO DAILY 10/16/20 12/24/24 losartan 100 mg tablet 100 mg PO DAILY 10/16/20 12/24/24 metoprolol succinate 100 mg 100 mg PO DAILY 10/16/20 12/24/24 tablet,extended release 24 hr montelukast 10 mg tablet 10 mg PO DAILY 10/16/20 12/24/24 pen needle, diabetic 32 gauge x #50 ea 10/16/20 07/30/24 temazepam 30 mg capsule 30 mg PO BEDTIME PRN Sleep 10/16/20 12/24/24 triamcinolone acetonide 0.025 % appl topical 10/16/20 07/30/24 topical cream insulin glargine 100 unit/mL (3 unit subcut BEDTIME 08/14/21 07/30/24 mL) subcutaneous pen (Lantus Solostar U-100 Insulin) insulin lispro 100 unit/mL 30 unit subcut TID 08/14/21 12/24/24 subcutaneous pen ezetimibe 10 mg tablet 10 mg PO DAILY 01/13/23 12/24/24 hydroxyzine HCl 25 mg tablet 25 mg PO DAILY 01/13/23 12/24/24 lorazepam 1 mg tablet 1 mg PO BID 01/13/23 12/24/24 metformin 850 mg tablet 850 mg PO BID 01/13/23 12/24/24 citalopram 20 mg tablet 20 mg PO DAILY 09/28/24 12/24/24 semaglutide 0.25 mg or 0.5 mg (2 mg subcut 09/28/24 mg/3 mL) subcutaneous pen injector (Ozempic) Previous Rx's ?Medication ?Instructions ?Recorded incontinence pad, liner, disp #90 ea 11/13/21 (Poise Pads) albuterol sulfate 90 mcg/actuation 1 inh inhalation QID PRN shortness 06/06/22 aerosol inhaler of breath or wheezing #8.5 grams lidocaine 5 % topical patch 1 patch topical DAILY PRN pain #15 07/02/22 ea nystatin 100,000 unit/gram topical 1 appl topical TID 30 days #30 01/13/23 powder grams disposable gloves (Nitrile Exam #50 ea 02/15/23 Gloves) incontinence pad, liner, disp #180 ea 02/15/23 underpads (Bed Underpads) #90 ea 02/15/23 omeprazole 20 mg capsule,delayed 20 mg PO DAILY #30 caps 05/24/23 release trospium 60 mg capsule,extended 60 mg PO DAILY #90 caps 05/25/24 release 24 hr vibegron 75 mg tablet (Gemtesa) 75 mg PO DAILY 90 days #90 tabs 05/25/24 metoclopramide HCl 10 mg tablet 10 mg PO .six times a day 06/18/24 (Reglan) gastroparesis #180 tabs baclofen 10 mg tablet 10 mg PO BID 30 days #60 tabs 08/29/24 nitrofurantoin 100 mg PO Q12H 3 days #6 caps 09/04/24 monohydrate/macrocrystals 100 mg capsule (Macrobid) phenazopyridine 200 mg tablet 200 mg PO BID #6 tabs 09/04/24 (Pyridium) fluocinonide 0.05 % topical cream 1 appl topical DAILY #30 grams 10/05/24 Oxygen Home Use #3 ea 11/07/24 diphenhydramine HCl 25 mg capsule 50 mg (2 x 25 mg) PO .COMPLEX #2 12/14/24 (Allergy (diphenhydramine)) caps prednisone 50 mg tablet 50 mg PO .COMPLEX #3 tabs 12/14/24 oxcarbazepine 150 mg tablet 150 mg PO TID 30 days #90 tabs 01/11/25 (Trileptal) galcanezumab-gnlm 300 mg/3 mL (100 300 mg (3 mL) subcut QMONTH 30 01/20/25 mg/mL x 3) subcutaneous syringe days #3 mL (Emgality) Allergies Allergy/AdvReac Type Severity Reaction Status Date / Time octopus Allergy Severe Anaphylaxis Verified 02/12/25 09:00 oxybutynin Allergy Severe Difficulty Verified 02/12/25 09:00 Swallowing tolterodine Allergy Severe Difficulty Verified 02/12/25 09:00 Swallowing aspirin Allergy Unknown anaphylaxis Verified 02/12/25 09:00 citalopram Allergy Unknown Unknown Verified 02/12/25 09:00 empagliflozin (From Allergy Unknown Unknown Verified 02/12/25 09:00 Jardiance) Fish Containing Products Allergy Unknown Unknown Verified 02/12/25 09:00 gabapentin Allergy Unknown hives Verified 02/12/25 09:00 hydrocodone (Vicodin) Allergy Unknown hives Verified 02/12/25 09:00 naproxen (Naprosyn) Allergy Unknown anaphylaxis Verified 02/12/25 09:00 oxycodone (Percocet) Allergy Unknown hives Verified 02/12/25 09:00 pregabalin (From Lyrica) Allergy Unknown Unknown Verified 02/12/25 09:00 sertraline Allergy Unknown Unknown Verified 02/12/25 09:00 shellfish derived Allergy Unknown Unknown Verified 02/12/25 09:00 peanut Allergy Anaphylaxis Verified 02/12/25 09:00 solifenacin AdvReac phlegm Verified 02/12/25 09:00 Vicodin Allergy Unknown hives Uncoded 02/12/25 09:00 Review of Systems Review of Systems: Constitutional : No Fever, No Chills,pos Fatigue ENT/Mouth : No sore throat, No Rhinorrhea Eyes: No Eye Pain, No Swelling, No Redness Cardiovascular : No Chest Pain, No SOB, No Dyspnea on Exertion Respiratory : No Cough, No Sputum Gastrointestinal : No Nausea, No Vomiting, No Diarrhea, No abdominal Pain Genitourinary : No Dysuria, No Urinary Frequency, No Hematuria, Musculoskeletal : No joint pain, No Myalgias, No Joint Swelling Skin : No Skin Lesions, No rash Neuro : No Weakness, No Numbness, No Dizziness All other systems reviewed and are negative PMFSH Past Medical History Attestation statement: The following information was validated with the patient. Source: old records reviewed Medical History Amputated toe of right foot Ganglion cyst Gastroparesis COVID-19 HTN (hypertension) Diabetes mellitus Urinary incontinence UTI (urinary tract infection) Surgical History History of left below knee amputation S/P carpal tunnel release History of surgical removal of ganglion cyst S/P rotator cuff repair History of surgery Social History Social History Are you a primary childcare center director to a significant other at home: No Do you presently have visiting nurse or other home services: No Alcohol intake: never Patient Tobacco Use Status: Former Tobacco user Substance Use Type: Marijuana Advance Directives: Yes Advance Directives Information Provided: No Advance Directives on File: No Current occupational status: disabled Current occupation: rt handed Physical Exam Vital Signs: Vital Signs: Last Vital Signs Pulse 72 02/12/25 08:58 Resp 18 02/12/25 08:58 BP 124/54 L 02/12/25 08:58 Pulse Ox 98 02/12/25 08:58 O2 Del Method Room Air 02/12/25 08:58 BMI result Body Mass Index 42.1 Appearance: Alert. Oriented X3. No acute distress. Eyes: Pupils equal, round and reactive to light. ENT: Pharynx normal. Neck: Normal inspection. Neck supple. CVS: Normal heart rate and rhythm. Pulses normal. Respiratory: No respiratory distress. Breath sounds normal. Abdomen: Soft and nontender. Skin: Skin warm and dry. Normal skin color. Normal skin turgor. Extremities: No lower extremity edema. LLE prosthetic Neuro: Oriented X 3. No motor deficit. No sensory deficit. Medications Administered Discontinued Medications Generic Name Dose Route Start Last Admin Trade Name Freq PRN Reason Stop Dose Admin Lactated Ringer's 1,000 mls @ 999 mls/hr 02/12/25 08:56 02/12/25 09:17 Lr IV 02/12/25 09:56 999 mls/hr .Q1H1M ONE Administration Medical Decision Making Medical Decision Making MDM Narrative: 64 yo female with PMH of DM, HTN, LLE amputation, hx of blood clots in leg on eliquis, urinary incontinence here with elevated BS in setting of holding DM medications for 3 days for procedure. She denies infectious symptoms at this time will give IVF, insulin sq and obtain basic labs. Seems her hyperglycemia is due to holding DM meds both injections and oral for 3 days. Differential Diagnosis Differential Diagnoses: The differential diagnosis associated with the presentation includes hyperglycemia, dehydration, lyte abnormality Admission/Observation Consideration of admission/observation: Escalation of care including admission/observation considered not in DKA stable for DC, bs down Consult Healthcare Provider Management of the patient was discussed with: Management Scientist (report received by anesthesia) Lab Data [facility] Lab Attestation statement: I reviewed the patient's lab results. 02/12/25 09:12 02/12/25 09:41 Labs: Lab Results 02/12/25 02/12/25 02/12/25 Range/Units 09:12 09:17 09:41 WBC 10.2 (4.8-10.8) X10*3/uL RBC 3.90 L (4.20-5.50) X10*6/uL Hgb 12.1 (12.0-16.0) g/dl Hct 36.2 L (37.0-47.0) % MCV 92.8 (80.0-98.0) fL MCH 31.0 (27.0-33.0) pg MCHC 33.4 (31.0-35.0) g/dl RDW 12.7 (11.0-16.0) % Plt Count 115 L D (160-400) X10*3/uL MPV 11.1 (9.4-12.3) fL Immature Gran % (Auto) 0.2 (0.0-0.4) % Neut % (Auto) 59.0 (45-73) % Lymph % (Auto) 31.4 (20-40) % [place] % (Auto) 6.2 (2-11) % Eos % (Auto) 2.8 (0-4) % Baso % (Auto) 0.4 (0-2) % Lymph # (Auto) 3.2 (1.2-4.9) X10*3/uL [place] # (Auto) 0.6 (0.1-1.2) X10*3/uL Eos # (Auto) 0.3 (0.0-0.4) X10*3/uL Baso # (Auto) 0.0 (0.0-0.2) X10*3/uL Abs Immat Gran (auto) 0.02 (0.00-0.03) X10*3/uL Absolute Neuts (auto) 5.9 (2.0-8.3) x10*3/uL Absolute Nucleated RBC 0.000 (0.0-0.012) X10*3/uL Nucleated RBC % (auto) 0.0 (0.0-0.2) /100WBC Smear Tech's Comments VERIFIED VBG pH 7.44 H (7.32-7.43) VBG pCO2 28 mmHg VBG pO2 141 mmHg VBG HCO3 19 L (22-26) mmol/L VBG O2 Saturation 99.0 % VBG Base Excess -3.6 mmol/L Sodium 134 L (135-145) mmol/L Potassium 5.2 H (3.3-5.1) mmol/L Chloride 103 (96-108) mmol/L Carbon Dioxide 25 (22-29) mmol/L Anion Gap 11 L (12-20) BUN 32 H (9-16) mg/dL Creatinine 1.20 (0.5-1.4) mg/dL Estim Creat Clear Calc 55.1 Estimated GFR 46 Random Glucose 423 H* (60-115) mg/dL Calcium 9.0 D (8.4-10.2) mg/dL Magnesium 1.9 (1.6-2.6) mg/dL Total Bilirubin 0.4 (0.0-1.0) mg/dL Direct Bilirubin 0.1 (0.0-0.5) mg/dL AST 30 (5-31) U/L ALT 49 H (0-31) U/L Alkaline Phosphatase 73 (39-117) U/L Total Protein 5.8 L (6.5-8.0) g/dL Albumin 3.6 (3.5-5.0) g/dL Lipase 49 (8-78) U/L Beta-Hydroxybutyrate 0.13 (0.02-0.27) mmol/L Independent Interpretation I performed an independent interpretation of an: EKG Interpretation: Rate: 70 Rhythm: NSR [place]: normal Normal P waves. Normal YULI. Normal QRS complex. ST T wave : flat t waves ant, no KENNETH qTC: 442 prior studies: no acute ischemia The study has been interpreted contemporaneously by me. . Independent Historian Clinical information obtained from an independent historian. History obtained from or confirmed by: Other External Record Review External record reviewed: Outpatient record Discharge Plan Discharge Clinical Impression: Acute hyperglycemia Patient Disposition: Home, Self-Care Instructions: Diabetic Hyperglycemia (ED) Additional Instructions: I would resume your home medications tonight return for any worsening symptoms or concerns monitor your blood sugars your platelets are slightly lower than baseline would recheck with your doctor by Prescriptions: No Action (DME) disposable gloves [Nitrile Exam Gloves] Misc See Rx Instructions .Route Qty: 50 11RF Rx Instructions: As directed- pt requesting size XL (DME) incontinence pad, liner, disp Pad See Rx Instructions .ROUTE .MEDSUPPLY Qty: 180 11RF Rx Instructions: As directed- pt requesting 6 per day (DME) underpads [Bed Underpads] Pad See Rx Instructions .Route Qty: 90 11RF Rx Instructions: As directed- pt requesting 3 per night metoclopramide HCl [Reglan] 10 mg tablet 10 mg PO .six times a day Qty: 180 6RF baclofen 10 mg tablet 10 mg PO BID 30 Days Qty: 60 3RF fluocinonide 0.05 % cream 1 appl topical DAILY Qty: 30 0RF diphenhydramine HCl [Allergy (diphenhydramine)] 25 mg capsule 50 mg PO .COMPLEX Qty: 2 0RF Rx Instructions: 50 mg orally 1 hour before MRI with contrast injection; MRI on 12/22/2024 prednisone 50 mg tablet 50 mg PO .COMPLEX Qty: 3 0RF Rx Instructions: 50 mg orally 13 hours, 7 hours, and 1 hour before MRI with contrast injection; MRI on 12/22/2024 oxcarbazepine [Trileptal] 150 mg tablet 150 mg PO TID 30 Days Qty: 90 1RF Emgality Syringe 300 mg/3 mL (100 mg/mL x 3) syringe 300 mg subcut QMONTH 30 Days Qty: 3 6RF Rx Instructions: administer as three 100 mg injections at separate sites albuterol sulfate 90 mcg/actuation HFA aerosol inhaler 1 inh inhalation QID PRN (Reason: shortness of breath or wheezing) Qty: 8.5 0RF lidocaine 5 % adhesive patch,medicated 1 patch topical DAILY PRN (Reason: pain) Qty: 15 0RF Rx Instructions: leave on most painful area for up to 12 hrs nitrofurantoin monohyd/m-cryst [Macrobid] 100 mg capsule 100 mg PO Q12H 3 Days Qty: 6 0RF Rx Instructions: must administer with a meal/food phenazopyridine [Pyridium] 200 mg tablet 200 mg PO BID Qty: 6 0RF Rx Instructions: must take with food (DME) lancets 30 gauge misc See Rx Instructions .ROUTE TID Qty: 100 Rx Instructions: As directed (DME) pen needle, diabetic 32 gauge x /32 needle See Rx Instructions .ROUTE .MEDSUPPLY Qty: 50 Rx Instructions: As directed cholecalciferol (vitamin D3) 50 mcg (2,000 unit) capsule 50 mcg PO BEDTIME diclofenac sodium 1 % gel topical loratadine 10 mg tablet 10 mg PO DAILY fluticasone propionate 50 mcg/actuation spray,suspension 0 mcg intranasal BID losartan 100 mg tablet 100 mg PO DAILY hydrochlorothiazide 25 mg tablet 25 mg PO QAM alcohol swabs Pads, Medicated topical TID montelukast 10 mg tablet 10 mg PO DAILY temazepam 30 mg capsule 30 mg PO BEDTIME PRN (Reason: Sleep) amlodipine 5 mg tablet 5 mg PO DAILY (DME) FreeStyle Lite Strips Strip See Rx Instructions Not Applicable TID Qty: 10 Rx Instructions: As directed metoprolol succinate 100 mg tablet extended release 24 hr 100 mg PO DAILY atorvastatin 10 mg tablet 10 mg PO DAILY citalopram 40 mg tablet 40 mg PO DAILY Eliquis 5 mg tablet 5 mg PO BID triamcinolone acetonide 0.025 % cream topical Lantus Solostar U-100 Insulin 100 unit/mL (3 mL) insulin pen subcut BEDTIME insulin lispro 100 unit/mL insulin pen 30 unit subcut TID (DME) Poise Pads Pad See Rx Instructions .ROUTE .MEDSUPPLY Qty: 90 0RF Rx Instructions: As directed ezetimibe 10 mg tablet 10 mg PO DAILY lorazepam 1 mg tablet 1 mg PO BID hydroxyzine HCl 25 mg tablet 25 mg PO DAILY metformin 850 mg tablet 850 mg PO BID nystatin 100,000 unit/gram powder 1 appl topical TID 30 Days Qty: 30 0RF Rx Instructions: to abdominal fold bilaterally trospium 60 mg capsule,extended release 24hr 60 mg PO DAILY Qty: 90 3RF Rx Instructions: must be taken on empty stomach at least 1 hour before a meal/food with water only Gemtesa 75 mg tablet 75 mg PO DAILY 90 Days Qty: 90 3RF omeprazole 20 mg capsule,delayed release(DR/EC) 20 mg PO DAILY Qty: 30 6RF (DME) Oxygen Home Use Kit See Rx Instructions .Route Qty: 3 6RF Rx Instructions: Start home O2 at 15-25 L/min via non-rebreather facemask x's 15-20 minutes at onset of cluster headache attack. Patient will require both M tanks and E tanks. Ozempic 0.25 mg or 0.5 mg (2 mg/3 mL) pen injector subcut citalopram 20 mg tablet 20 mg PO DAILY Print Language: Kinyarwanda
[2025-02-12] MEDS: Lactated Ringers 1,000 ML 999 ML IV (09:17)
[2025-02-12 09:20] LABS: Hematocrit 36.2 % (37.0-47.0); Hemoglobin 12.1 g/dl (12.0-16.0); Imm Gran Abs Auto 0.02 X10*3/uL (0.00-0.03); Imm Gran Pct Auto 0.2 % (0.0-0.4); Lymphocytes Absolute Auto 3.2 X10*3/uL (1.2-4.9); MANUAL DIFF FLAG SCAN; Mean Corpuscular HGB Conc 33.4 g/dl (31.0-35.0); Mean Corpuscular Hemoglobin 31.0 pg (27.0-33.0); Mean Corpuscular Volume 92.8 fL (80.0-98.0); NRBC Abs Auto 0.000 X10*3/uL (0.0-0.012); NRBC Pct Auto 0.0 /100WBC (0.0-0.2); PLT CLUMP 1; Red Blood Count 3.90 X10*6/uL (4.20-5.50); SCAN SMEAR FLAG 1
[2025-02-12 09:21] LABS: VBG HCO3 19 mmol/L (22-26); VBG O2 % Saturation 99.0 %
[2025-02-12 09:22] LABS: Venous Blood Gas Refer to POC result
[2025-02-12 10:00] LABS: Platelet Count 115 X10*3/uL (160-400); White Blood Count 10.2 X10*3/uL (4.8-10.8)
--- OUTSIDE RECORDS SUMMARY | 2025-02-12 10:07 | XMS_ITS | Clinical Summary ---
Author Organization [address] [facility] Address [address] [place] [address] Phone Care Team Providers Care Baker Head Name Role Phone Samuel Hilario MD Primary Care Provider [phone] Allergies Active Allergy Reactions Criticality Noted Date [...] questions answered. Diabetic gastroparesis ([facility] V24, [facility] V28 ) 08/25/2022 Prurigo nodularis [...] wit h neurological manifestations ([facility] V24, [facility] V28) 03/29/2014 Overview (03/27/2024): Left stump neuropathy Intolerant metformin Refused increase med. See Tel. 02/02/16 Urinary incontinence 03/29/2014 Overview (03/27/2024): [place]line. Changed to [place] Panic attacks 03/29/2014 Overview (03/27/2024): Sees psych Morbid obesity ([facility] V24, [facility] V28) 2013 Overview (03/27/2024): BMI 43.0 on 02/07/14 per transfer records MUSA (obstructive sleep apnea) 03/18/2014 Lumbosacral spondylosis without myelopathy 03/18 Eczema 03/18/2014 History of leg amputation ([facility] V24, [facility] V28) 03/18/2014 Overview (03/27/2024): BKA 08/10/11 left Lumbago 04/16/2009 S/P BKA (below knee amputation) ([facility] V24, S/[facility] V28) 12/30/2008 Overview (03/27/2024): left Sleep apnea 09/01/2005 Overview (03/27/2024): uses CPAP IMO update 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 ([facility] V24, [facility] [place] 08/19/2005 Overview (03/27/2024): from birthcontrol.had amputation on 10/11.on coumadin since October previous pcp dr ANA ignacio u/s negative in [place] 08/16/05 plastic sugeon for wound care s/p amputation.sees dr loyd for infection suresh gray is her plastic surgeon just finished reconstruciton Heartburn 08/19/2005 Phantom limb syndrome ([facility] [place] [facility] V28) 08/19/2005 Overview (03/27/2024): IMO update Asthma 08/19/2005 Depressive disorder 08/19/2005 Overview (03/27/2024): Shannon hernandez,[facility].they give wellbutrin,remerenon,seroquel Encounters Date Type Department Care Team Description 12/20/2024 1:45 PM EDT Office Visit Orthopedic Surgery - [address] [address] Nolberto Cruz, DPM Dermatophytosis of nail (Primary Dx); Acquired hammer toe of right foot; Type II diabetes mellitus with peripheral circulatory disorder ([facility] [place], [facility] V28); Diabetic mononeuropathy simplex ([facility] [place], [facility] V28); Hx of BKA, left ([facility] [place], [facility] V28); Corns and callosities from Last 3 Months Immunizations Immunization Administration Dates Next Due Influenza Quadravalent, MDCK , 0.5ml, with preservative (Flucelvax) 6mo and older 02/02/2017 Moderna SARS-CoV-2 COVID-19, mRNA, LNP-S, preservative free 09/19/2020,08/21/2020 Pneumococcal polysaccharide 23 valent (Pneumovax 23) 2yo and older 04/29/2014 Tdap Tetanus diptheria acell ular pertussis (Boostrix; Adacel) 7yo and older 04/17/2015 Surgical History Surgery Date Site/Laterality Comments ENDOMETRIAL ABLATION 2006 PROCEDURE: RI ENDOMETRIAL ABLTJ THERMAL W/O HYSTEROSCOPIC GUID; COMMENT: Whit OTHER SURGICAL HISTORY 2011 Left PROCEDURE: HISTORICAL BELOW KNEE AMP; COMMENT: vascular problems COLONOSCOPY 08/20/2008 PROCEDURE: HISTORICAL COLONOSCOPY; COMMENT: normal TUBAL LIGATION PROCEDURE: HISTORICAL TUBAL LIGATION CARPAL TUNNEL RELEASE 2021 PROCEDURE: RI NEUROPLASTY &/TRANSPOS MEDIAN NRV CARPAL TUNNE Medical History Medical History Date Comments 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 V24, CMS/[facility] V28) DX:Arterial embolism and thr ombosis of lower extremity (HCC) Left hip pain DX:Left hip pain Amenorrhea DX:Amenorrhea Chronic abdominal pain DX:Chroni c abdominal pain Asthma DX:Asthma Obesity DX:Obesity Amputation of leg ([facility] V 24, [facility] V28) DX:Amputation of leg ([facility]) Incontinence DX:Incontinence Otitis media DX:Otitis media Pelvic pain DX:Pelvic pain Left shoulder pain DX:Left shoul krystle pain Sleep apnea DX:Sleep apnea; COMMENT: CPAP Historical Medical DX 2004 DX:HTN; CO MMENT: Metropolol and Buspar Rotator cuff tear 05/18/2014 DX:Rotator cuf f tear; COMMENT: Chronic anterior/superior tear, managed medically Carpal tunnel syndrome 05/18/2014 DX:Carpal tunnel syndrome; COMMENT: left History of leg amputation ([facility] V24, [facility] V28) 03/18/2014 DX:History of leg amputation (HCC); COMMENT: BKA 08/10/11 (leg not specified) History of pulmonary embolism 03/18/2014 DX :History of pulmonary embolism; COMMENT: 2011 MUSA (obstructive sleep apnea) 03/18/2014 DX :MUSA (obstructive sleep apnea) Impaired fasting glucose 03/18/2014 DX:Impa ired fasting glucose Lumbosacral spondylosis with out myelopathy 03/18/2014 DX:Lumbosacral spondylosis w ithout myelopathy Eczema 03/18/2014 DX:Eczema Morbid obesity (CMS/HCC V24, [facility] V28) 03/18/2014 DX:Morbid obesity (HCC); COM MENT: BMI 43.0 on 02/07/14 Hypertension DX:Hypertension Type 2 diabetes mellitus wit hout complications ([facility] V24, [facility] V28) DX:Type 2 diabetes mellitus [...] PM EST Office Visit Orthopedic Surgery - [place] [address] [facility] [address] [place] [address] [place] [phone] Nolberto Cruz, DPM [address] [phone] Health Maintenance Due Date Last Done Comments Colorectal Cancer Screening: Colonoscopy 1962 Diabetes: Annual GFR (Glomerular Filtration Rate) 1962 Diabetes: Annual Foot Exam 1972 Diabetes: Annual Retina Eye Exam 1972 Pneumococcal Vaccine: 50+ Years (2 of 2 - PCV) 04/29/2015 04/29/2014 Cholesterol Screening (Lipid Panel) 04/17/2022 02/25/2017 HIV Screening 04/17/2022 Social Influencers of Health [...] year. [facility] [address], [address] -------- FINAL REPORT -------- Dictated By: Sd Restrepo Dictated Date: 08/20/2024 16:32 ET Assigned Physician: Sd Restrepo Reviewed and Electronically Signed By: Sd Restrepo Signed Date: 08/20/2024 16:39 ET Workstation ID: [id number] Transcribed By: Self Edit Transcribed Date: 08/20/2024 16:32 ET Narrative 08/20/2024 4:39 PM EDT EXAM: SCREENING MAMMOGRAPHY, BILATERAL HISTORY: SCREENING. Paternal aunt diagnosed with breast cancer age 39 COMPARISON: 10/21/20 TECHNIQUE: Synthesized CC and MLO projections of each breast. Tomosynthesis of each breast in the CC and MLO projections. ADDITIONAL IMAGING: None Computer-aided detection was employed with the [employer] AI 3-D. TISSUE DENSITY: The breasts are [...] None Computer-aided detection was employed with the [employer] AI 3-D. TISSUE DENSITY: The breasts are [...] year. [facility]amm[facility] location: [facility] [address] [place], [address] -------- FINAL REPORT -------- Dictated By: Sd Restrepo Dictated Date: 08/20/2024 16:32 ET Assigned Physician: Sd Restrepo Reviewed and Electronically Signed By: Sd Restrepo Signed Date: 08/20/2024 16:39 ET Workstation ID: [id number] Transcribed By: Self Edit Transcribed Date: 08/20/2024 16:32 ET Betty Matt CNM IMG BI PROCEDURES Final Resul t * HPV with reflex genotype (08/07/2024 2:32 PM EDT) [facility] HPV Negative Negative LAB MICROBIOLOGY METHOD 08/08/2024 1:09 PM EDT [facility] Brushing/Spatula Cervix uteri structure / Unknown 08/07/2024 2:32 PM EDT 08/08/2024 6:17 AM EDT Betty Matt CNM LAB MOLECULAR DIAGNOSTICS ORD ERABLES Final Result [facility] [address] [place] [address], * HM Urine Albumin Creatinine Ratio (02/25/2017) [facility] Urine Albumin Creatinine Ratio abstracted Historical Provider HEALTH MAINTENANCE Final Result * (ABNORMAL) Hemoglobin A1c (02/25/2017) [facility] Hemoglobin A1C 7.4(A) 4.0 - 6.0 % Blood Venous blood specimen / Unknown Historical Provider LAB BLOOD ORDERABLES Jessy l Result * (ABNORMAL) Lipid panel (02/25/2017) [facility] LDL/HDL Ratio 4 0 - 4 Triglycerides 280(A) 0 - 150 mg/dL Cholesterol 110 0 - 200 mg/dL HDL 29(A) >=40 mg/dL LDL Cholesterol 25 0 - 100 mg/dL Blood Venous blood specimen / Unknown Historical Provider LAB BLOOD ORDERABLES Jessy l Result * Hepatitis C Screening (01/02/2016) Pathologist [facility] Hepatitis C Screening abstracted Historical Provider HEALTH MAINTENANCE Final Result * Depression Screening (08/19/2005) Pathologist [facility] Depression Screening abstracted [facility] Provider HEALTH MAINTENANCE Final Result from Last 3 Months or Most Recently Relevant to Health Maintenance Insurance [facility] [employer] Care Teams Baker Head Relationship Specialty Start Date End Date Samuel Hilario MD [address] [place] [phone] PCP - General Internal Medicine 03/19/20
--- OUTSIDE RECORDS SUMMARY | 2025-02-12 10:08 | XMS_ITS | Patient Health Record ---
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 Prediabetes: 5.7 - 6.4 Diabetes: >6.4 Glycemic control for adults with diabetes: <7.0 Hemoglobin [id number] Reviewed date:08/04/2024 01:31:25 PM Interpretation: Performing Lab:[facility], [address] [facility], Phone - [phone], Director - Mohsen Notes/Report: Hemoglobin A1c 7.1 4.8-5.6 % . Prediabetes: 5.7 - 6.4 Diabetes: >6.4 Glycemic control for adults with diabetes: <7.0 Albumin/Creatinine Ratio,Yosi ne-[id number] Reviewed date:08/04/2024 01:31:32 PM Interpretation: Performing Lab:[facility], [address] [place] [address], Phone - [phone], Director - MDJodry Notes/Report: Creatinine, Urine 88.2 Not Estab. mg/dL Albumin, Urine 19.2 Not Estab. ug/mL Alb/Creat Ratio 22 0-29 mg/g creat Normal: 0 - 29 Moderately increased: 30 - 300 Severely increased: >300 Lipid Panel-[id number] Reviewed date:08/16/2024 04:22:18 PM Interpretation: Performing Lab:[facility], [address] [place] [address], Phone - [phone], Director - MDSvitlanay Notes/Report: Cholesterol, Total 132 100-199 mg/dL Triglycerides 228 0-149 mg/dL HDL Cholesterol 38 >39 mg/dL VLDL Cholesterol Timothy 37 5-40 mg/dL LDL Chol Calc (NIH) 57 0-99 mg/dL Comp. Metabolic Panel (14)-3 23195 Reviewed date:08/04/2024 01:36:37 PM Interpretation: Performing Lab:[facility], [address] [place] [address], Phone - [phone], Director - [facility] Notes/Report: Glucose 101 70-99 mg/dL BUN [...] provided by [facility], at [address] [place] [address], [place] [address] (CLIA # [id number]/Omi Connelly MD, Education And Outreach Coordinator.) Console Pap Interpretation Reported General Categorization Negative Lipid Panel-[id number] Reviewed date:08/26/2024 07:23:29 AM Interpretation: Performing Lab:[facility], [address] [facility], [place], Phone - [phone], Director - Mohsen Notes/Report: Cholesterol, Total 125 100-199 mg/dL Triglycerides 203 0-149 mg/dL HDL Cholesterol 39 >39 mg/dL VLDL Cholesterol Timothy 33 5-40 mg/dL LDL Chol Calc (NIH) 53 0-99 mg/dL HPV WITH REFLEX GENOTYPE Reviewed date:08/08/2024 01:37:20 PM Interpretation: Performing Lab: Notes/Report: HPV Negative Negative MG MAMMO DIGITAL SCREENING W TONG BILAT Reviewed date:08/22/2024 02:13:16 PM Interpretation: Performing Lab: Notes/Report: Note See Note [facility], a member of [facility] Patient Name: MARIBELL TAYLOR Date of : 1960 Reason for Exam: Breast cancer screen, avg risk, asymptomatic (Age => 42y) Exam Date: 08/20/2024 [id number] EST Report Status: Final Ordering Provider: TONY [...] [facility]amm[facility] location[facility] at [address], [address] -------- FINAL REPOR T -------- Dictated By: Sd Holbrook Dictated Date: 08/20/2024 16:32 ET Assigned Physician: Sd Restrepo Reviewed and Electronically Signed By: Sd Restrepo Signed Date: 025 16:39 ET Workstation ID: [id number] Transcribed By: Self Edit Transcribed Date: 08/20/2024 16:32 ET Comp. Metabolic Panel (14)-3 Reviewed date:09/03/2024 02:43:50 PM Interpretation: Performing Lab:[facility], [address] [place] [address], Phone - [phone], Director - Mohsen Notes/Report: Glucose 145 70-99 [...] IU/L ALT (SGPT) 38 0-32 IU/L Lipid Panel-[id number] Reviewed date:09/03/2024 02:43:34 PM Interpretation: Performing Lab:[facility] [place], [address] [facility], [place], Phone - [phone], Director - MDSvitlanay Notes/Report: Cholesterol, Total 126 100-199 mg/dL Triglycerides 205 0-149 mg/dL HDL Cholesterol 38 >39 mg/dL VLDL Cholesterol Timothy 33 5-40 mg/dL LDL Chol Calc (NIH) 55 0-99 mg/dL Albumin/Creatinine Ratio,Uri ne-[id number] Reviewed date:09/03/2024 02:43:41 PM Interpretation: Performing Lab:[facility] [place], [address] [facility], [place], Phone - [phone], Director - MDSvitlanay Notes/Report: Creatinine, Urine 75.8 Not Estab. mg/dL [...] of [place] Referring Provider First Name JARAMILLO Referring Provider Last Name [facility] Referring Provider Speciality Internal M edicine Referred Provider Specialty Pain Medicin e General Notes Referral sent to [facility] in [place] - Office will call patient for scheduling.Janene Latraya 02/21/2024 10:54:41 AM > Referral Priority Routine [...] day. TAKE WITH MEALS; Duration: 30 Active clonazePAM 1 MG 2 tablets [...] 10 days 05/31/2023 Active True Comfort Pen [place] 32G X 4 MM USE TO INJECT [...] a day; Duration: 7 days 11/05/2022 Active Pigftvps-Miiajfoul-FP 1 % 4 drops into affected ear [...] a day; Duration: 14 days 01/02/2024 Not-Taking tiZANidine HCl 4 mg TAKE 1 TABLET BY MOUTH 3 (THREE) TIMES A DAY NEEDED; Duration: 10 Active Atorvastatin Calcium 10 mg TAKE 1 [...] TIMES A DAY; Duration: 33 Active Nystatin-Triamcinolone 927606-7.1 UNIT/GM 1 application Externally Twice a day; [...] W/U Status Risk Notes Problem Diabetic neuropathy (956997953) Diabetes mellitus due to underlying condition with diabetic neuropathy, unspecified (E08.40) Active confirmed Problem Morbid obesity (disorder) (605171066) Morbid (severe) obesity due to excess calories (E66.01) Active confirmed Problem Anxiety disorder (199301448) Anxiety disorder, unspecified (F41.9) Active confirmed Problem Essential tremor (632414896) Essential tremor (G25.0) Active confirmed Problem Insomnia (028424273) Insomnia, unspecified (G47.00) Active confirmed Problem Obstructive sleep apnea syndrome (63004301) Obstructive sleep apnea (adult) (pediatric) (G47.33) Active confirmed Problem Essential hypertensi on (42540287) Essential (primary) hypertension (I10) Active confirmed Problem Chronic kidney disea se due to hypertension (825068056980704) Hypertensive chronic kidney disease with stage 1 through stage 4 chronic kidney disease, or unspecified chronic kidney disease (I12.9) Active confirmed Problem Peripheral vascular disease (126987423) Peripheral vascular disease, unspecified (I73.9) Active confirmed Problem Embolism from thrombosis of vein of lower extremity (259509165) Chronic embolism and thrombosis of unspecified deep veins of unspecified lower extremity (I82.509) Active confirmed Problem Uncomplicated mild persistent asthma (425584506) Mild persistent asthma, uncomplicated (J45.30) Active confirmed Problem Polyp of colon (10728880) Polyp of colon (K63.5) Active confirmed Problem Acquired hammer toe of right foot (8851280722551047) Other hammer toe(s) (acquired), right foot (M20.41) Active confirmed Problem Shoulder joint pain (139353533) Pain in left shoulder (M25.512) Active confirmed Problem Lumbosacral radiculopathy (9332642) Radiculopathy, lumbosacral region (M54.17) Active confirmed Problem Dysphagia (48027288) Dysphagia, unspecified (R13.10) Active confirmed Problem Paresthesia (finding ) (31562106) Paresthesia of skin (R20.2) Active confirmed Problem Amputated below knee (755719805) Acquired absence of left leg below knee (Z89.512) Active confirmed Problem Pure hypercholesterolemia (298895730) Pure hypercholesterolem ia, unspecified (E78.00) Active confirmed Problem Chronic kidney disea se stage 3 (disorder) (676977663) Chronic kidney disease, stage 3 unspecified (N18.30) Active confirmed Problem Chronic kidney disea se stage 3A (disorder) (432278936) Chronic kidney disease, stage 3a (N18.31) Active confirmed Problem Type 2 diabetes mellitus with other specified complication, without long-term current use of insulin (E11.69) Active confirmed Problem Urinary incontinence (613940175) Urinary incontinence, unspecified type (R32) Active confirmed Problem Gastroesophageal reflux disease (305781202) Gastroesophageal reflux disease, unspecified whether esophagitis present (K21.9) Active confirmed Vital Signs Heart Rate 79 /min 01/21/2025 Temperature 96.8 degrees Fahrenheit 01/21/2025 Oximetry 96 % 01/21/2025 Blood pressure diastolic 72 mm Hg 01/21/2025 Height 62.24 in 01/21/2025 Blood pressure systolic 130 mm Hg 01/21/2025 Weight 226.0 lbs 01/21/2025 BMI 41.01 kg/m2 01/21/2025 Encounters Encounter Location Date Provider Diagnosis [address] [place] [address] 02/21/2024 JARAMILLO GUL Radiculopathy, lumbosacral region M54.17 ; Diabetes mellitus due to underlying condition with diabetic neuropathy, unspecified E08.40 ; Essential (primary) hypertension I10 and Chronic kidney disease, stage 3 unspecified N18.[address] [place] [address] 02/29/2024 Adolfo Vilchis Acute URI J06.[address] [place] [address] 04/18/2024 Adolfo Vilchis Diabetes mellitus du e [...] of micturition R35.0 and Epidermal cyst L72.[address] [address] 05/14/2024 ELLA WUL Pain in right leg M79.[address] [address] 05/23/2024 JARAMILLO GUL Diabetes mellitus du e to underlying condition with diabetic neuropathy, unspecified E08.40 ; Essential (primary) hypertension I10 ; Obstructive sleep apnea (adult) (pediatric) G47.33 ; Anxiety disorder, unspecified F41.9 ; Mild persistent asthma, uncomplicated J45.30 ; Chronic embolism and thrombosis of unspecified deep veins of unspecified lower extremity I82.509 and Chronic kidney disease, stage 3 unspecified N18.[address] [address] 07/31/2024 JARAMILLO GUL Diabetes mellitus du e [...] Chronic kidney disease, stage 3 unspecified N18.[address] [address] 09/17/2024 JARAMILLO GUL Unspecified fall, initial encounter W19.XXXA and Pain in right leg M79.[address] [address] 11/26/2024 JARAMILLO GUL Annual physical exam Z00.00 ; Essential (primary) [...] deep veins of unspecified lower extremity I82.[address] [place] [address] 01/21/2025 ELLA MICHAEL Diarrhea, unspecifie d R19.7 and Viral infection, unspecified B34.[address] [place] [address] 02/16/2024 JARAMILLO GU Diabetes mellitus du e to underlying condition with diabetic neuropathy, unspecified E08.[address] [place] [address] 02/23/[address] [place] [address] 02/28/[address] [place] [address] 03/05/[address] [place] [address] 04/16/[address] [place] [address] 04/16/[address] [place] [address] 06/21/[address] [place] [address] 07/13/[address] [place] [address] 07/30/[address] [place] [address] 08/16/2024 Ghadeer Mazloum [address] [place] [address] 08/16/2024 JARAMILLO JAZMINL Pure hypercholesterolemia, unspecified E78.[address] [place] [address] 08/22/2024 JARAMILLO JAZMINL [address] [place] [address] 08/22/[address] [place] [address] 09/25/2024 JARAMILLO JAZMIN Acute URI J06.[address] [place] [address] 11/08/[address] [place] [address] 11/12/2024 JARAMILLO FERNANDA [address] [place] [address] 11/26/2024 ELLA MICHAEL Peripheral vascular disease, unspecified I73.[address] [address] 01/17/2025 ELLA MICHAEL Assessments Encounter Date Diagnosis (ICD Code) Assessment Notes Treatment Notes Treatment Clinical Notes Section Notes 02/16/2024 Diabetes mellitus due to underlying condition [...] afternoon for breakthrough pains. She follows with [facility] Dr. Iraheta. Chronic kidney disease stage 3. -She does not appear to be in volume overload. Advised appropriate hydration. Avoid NSAIDs. She sees Dr. Lakhani. Asthma. -She uses her inhalers as needed. Follows with Dr. [facility] Generalized anxiety disorder. -Mood is stable on Lorazepam 3 times a day. She has a psychiatrist and a therapist. GERD/gastroparesis /dysphagia - Currently she is on omperazole 20m and Reglan 10 MG twice a day. I have increased omperazole to 40mg and advised patient to follow-up with her GI at [place]. She has an appt in May. MUSA: [...] with diabetic neuropathy. She follows up with [facility] endocrinology and according to patient her last A1c was within normal range. She is seen maintenance helper in the past. She follows up with blood donor unit assistant and kidney function is stable. Foot care discussed with the patient. Hypertension/hyper lipidemia. Blood pressure well controlled and last lipid panel was within reasonable limits Obstructive sleep apnea. Continue on CPAP machine and no daytime sleepiness. Moderate persistent asthma. She stable when she follows up with painter maintenance Anxiety/depression . Stable on current regimen. Considering her neuropathy she may be a good candidate for duloxetine which can be added to her regimen and she will check with her psychiatrist. Chronic kidney disease. She is stable and she follows up with blood donor unit assistant to avoid NSAIDs. Right lower extremity swelling. [...] and hemoglobin A1c and follows up with [facility] endocrinology. She is seen maintenance helper in the past. She follows up with blood donor unit assistant and kidney function is stable. Foot care discussed with the patient. Hypertension/hyper lipidemia. Blood pressure well controlled and last lipid panel was within reasonable limits Obstructive sleep apnea. Continue on CPAP machine and no daytime sleepiness. Moderate persistent asthma. She stable when she follows up with painter maintenance Anxiety/depression . Stable on current regimen. Considering her neuropathy she may be a good candidate for duloxetine which can be added to her regimen and she will check with her psychiatrist. Chronic kidney disease. She is stable and she follows up with blood donor unit assistant to avoid NSAIDs. Right lower extremity swelling. It is nonpitting edema most likely lymphedema. She is on Eliquis and less likely to be a DVT and ultrasound lower extremity was negative. Vaginal candidiasis. She is given fluconazole and advised to control blood sugars 08/16/2024 Pure hypercholesterolemi a, unspecified (ICD-10 - E78.00) 09/17/2024 Pain in [...] is on Eliquis. She was taken to [facility] ER where she had CT scan [...] is on Eliquis. She was taken to [facility] ER where she had CT scan of the head and x-ray of the right leg which were negative. Plan is as follows Hematoma of right [place]. Discussed with the patient that it is superficial and she is low risk for DVTs. Keep the leg elevated and iced the leg. No other intervention is very 09/25/2024 Acute URI (ICD-10 - J06.9) 11/26/2024 Essential (primary) hypertension (ICD-10 - I10) Maribell is a 64-year-old lady with DM2, hypertension, hyperlipidemia, asthma, insomnia, anxiety, obstructive sleep apnea, peripheral vascular disease, DVT right lower extremity, obesity, chronic kidney disease stage IIIa and follows up with blood donor unit assistant is here today for annual physical. Diabetes mellitus type 2 with diabetic neuropathy. Her last hemoglobin A1c was 7.1. She is stable on the above-mentioned regimen. She follows up with qc scientist. She is seeing maintenance helper in the past 1 year. She takes [...] for GLP-1. Advised to talk to her qc scientist to start the medication. EKG is normal sinus rhythm at 88 [address]pm with no acute ST or T wave changes., no bundle branch blocks, normal intervals She is up to date on age specific screening. She is full code and her is her healthcare proxy 01/21/2025 Viral infection, unspecified (ICD-10 - B34.9) Maribell is a 64-year-old lady with DM2, hypertension, hyperlipidemia, asthma, insomnia, anxiety, obstructive sleep apnea, peripheral vascular disease, DVT right lower extremity, obesity, chronic kidney disease stage IIIa and follows up with blood donor unit assistant is for cough, postnasal dripping, diarrhea which [...] disease stage IIIa and follows up with blood donor unit assistant is for cough, postnasal dripping, diarrhea which [...] hydrated, soft diet and advance as tolerated. 02/21/2024 Diabetes mellitus due to underlying condition with diabetic neuropathy, unspecified (ICD-10 - E08.40) Maribell is a 63-year-old lady with DM2, hypertension, hyperlipidemia, asthma, insomnia and anxiety here for follow up. Plan is as follows: Type II diabetes mellitus. Hb A1c improve energy 6.1.She is on right medications. She has seen her maintenance helper in the past 1 year. Foot care [...] because she is on temazepam. Referred to [facility] Dr. Iraheta. Chronic kidney [...] this note under HIPAA compliance and under [place] law mandated for scribe services. Patient aware of service. Verbal consent and written consent taken from the patient. Patient understands and verbalizes understanding of the scribes services and all questions answered regarding scribes services. Patient agrees to use of scribes services. 11/26/2024 Annual physical exam (ICD-10 - Z00.00) Maribell is a 64-year-old lady with DM2, hypertension, hyperlipidemia, asthma, insomnia, anxiety, obstructive sleep apnea, peripheral vascular disease, DVT right lower extremity, obesity, chronic kidney disease stage IIIa and follows up with blood donor unit assistant is here today for annual physical. Diabetes mellitus type 2 with diabetic neuropathy. Her last hemoglobin A1c was 7.1. She is stable on the above-mentioned regimen. She follows up with qc scientist. She is seeing maintenance helper in the past 1 year. She takes [...] for GLP-1. Advised to talk to her qc scientist to start the medication. EKG is normal sinus rhythm at 88 bpm with no acute ST or T wave changes., no bundle branch blocks, normal intervals She is up to date on age specific screening. She is full code and her is her healthcare proxy 02/21/2024 Radiculopathy, lumbosacral region (ICD-10 - M54.17) Maribell is a 63-year-old lady with DM2, hypertension, hyperlipidemia, asthma, insomnia and anxiety here for follow up. Plan is as follows: Type II diabetes mellitus. Hb A1c improve energy 6.1.She is on right medications. She has seen her maintenance helper in the past 1 year. Foot care [...] because she is on temazepam. Referred to [facility] Dr. Iraheta. Chronic kidney [...] this note under HIPAA compliance and under [place] law mandated for scribe services. Patient aware of service. Verbal consent and written consent taken from the patient. Patient understands and verbalizes understanding of the scribes services and all questions answered regarding scribes services. Patient agrees to use of scribes services. 11/26/2024 Peripheral vascular disease, unspecified (ICD-10 - I73.9) 02/21/2024 Essential (primary) hypertension (ICD-10 - I10) Maribell is a 63-year-old lady with DM2, hypertension, hyperlipidemia, asthma, insomnia and anxiety here for follow up. Plan is as follows: Type II diabetes mellitus. Hb A1c improve energy 6.1.She is on right medications. She has seen her maintenance helper in the past 1 year. Foot care [...] because she is on temazepam. Referred to [facility] Dr. Iraheta. Chronic kidney [...] this note under HIPAA compliance and under [place] law mandated for scribe services. Patient aware of service. Verbal consent and written consent taken from the patient. Patient understands and verbalizes understanding of the scribes services and all questions answered regarding scribes services. Patient agrees to use of scribes services. 11/26/2024 Diabetes mellitus due to underlying condition with diabetic neuropathy, unspecified (ICD-10 - E08.40) Maribell is a 64-year-old lady with DM2, hypertension, hyperlipidemia, asthma, insomnia, anxiety, obstructive sleep apnea, peripheral vascular disease, DVT right lower extremity, obesity, chronic kidney disease stage IIIa and follows up with blood donor unit assistant is here today for annual physical. Diabetes mellitus type 2 with diabetic neuropathy. Her last hemoglobin A1c was 7.1. She is stable on the above-mentioned regimen. She follows up with qc scientist. She is seeing maintenance helper in the past 1 year. She takes [...] for GLP-1. Advised to talk to her qc scientist to start the medication. EKG is normal sinus rhythm at 88 bpm with no acute ST or T wave changes., no bundle branch blocks, normal intervals She is up to date on age specific screening. She is full code and her is her healthcare proxy 07/31/2024 Other urogenital candidiasis (ICD-10 - B37.49) [...] and hemoglobin A1c and follows up with [facility] endocrinology. She is seen maintenance helper in the past. She follows up with blood donor unit assistant and kidney function is stable. Foot care discussed with the patient. Hypertension/hyper lipidemia. Blood pressure well controlled and last lipid panel was within reasonable limits Obstructive sleep apnea. Continue on CPAP machine and no daytime sleepiness. Moderate persistent asthma. She stable when she follows up with painter maintenance Anxiety/depression . Stable on current regimen. Considering her neuropathy she may be a good candidate for duloxetine which can be added to her regimen and she will check with her psychiatrist. Chronic kidney disease. She is stable and she follows up with blood donor unit assistant to avoid NSAIDs. Right lower extremity swelling. [...] and hemoglobin A1c and follows up with [facility] endocrinology. She is seen maintenance helper in the past. She follows up with blood donor unit assistant and kidney function is stable. Foot care discussed with the patient. Hypertension/hyper lipidemia. Blood pressure well controlled and last lipid panel was within reasonable limits Obstructive sleep apnea. Continue on CPAP machine and no daytime sleepiness. Moderate persistent asthma. She stable when she follows up with painter maintenance Anxiety/depression . Stable on current regimen. Considering her neuropathy she may be a good candidate for duloxetine which can be added to her regimen and she will check with her psychiatrist. Chronic kidney disease. She is stable and she follows up with blood donor unit assistant to avoid NSAIDs. Right lower extremity swelling. [...] with diabetic neuropathy. She follows up with [facility] endocrinology and according to patient her last A1c was within normal range. She is seen maintenance helper in the past. She follows up with blood donor unit assistant and kidney function is stable. Foot care discussed with the patient. Hypertension/hyper lipidemia. Blood pressure well controlled and last lipid panel was within reasonable limits Obstructive sleep apnea. Continue on CPAP machine and no daytime sleepiness. Moderate persistent asthma. She stable when she follows up with painter maintenance Anxiety/depression . Stable on current regimen. Considering her neuropathy she may be a good candidate for duloxetine which can be added to her regimen and she will check with her psychiatrist. Chronic kidney disease. She is stable and she follows up with blood donor unit assistant to avoid NSAIDs. Right lower extremity swelling. [...] afternoon for breakthrough pains. She follows with [facility] Dr. Iraheta. Chronic kidney [...] patient to follow-up with her GI at [place]. She has an appt in May. MUSA: [...] afternoon for breakthrough pains. She follows with [facility] Dr. Iraheta. Chronic kidney disease stage 3. -She does not appear to be in volume overload. Advised appropriate hydration. Avoid NSAIDs. She sees Dr. Lakhani. Asthma. -She uses her inhalers as needed. Follows with Dr. RiveraBisbee Generalized anxiety disorder. -Mood is stable on Lorazepam 3 times a day. She has a psychiatrist and a therapist. GERD/gastroparesis /dysphagia - Currently she is on omperazole 20m and Reglan 10 MG twice a day. I have increased omperazole to 40mg and advised patient to follow-up with her GI at [place]. She has an appt in May. MUSA: [...] with diabetic neuropathy. She follows up with [facility] endocrinology and according to patient her last A1c was within normal range. She is seen maintenance helper in the past. She follows up with blood donor unit assistant and kidney function is stable. Foot care discussed with the patient. Hypertension/hyper lipidemia. Blood pressure well controlled and last lipid panel was within reasonable limits Obstructive sleep apnea. Continue on CPAP machine and no daytime sleepiness. Moderate persistent asthma. She stable when she follows up with painter maintenance Anxiety/depression . Stable on current regimen. Considering her neuropathy she may be a good candidate for duloxetine which can be added to her regimen and she will check with her psychiatrist. Chronic kidney disease. She is stable and she follows up with blood donor unit assistant to avoid NSAIDs. Right lower extremity swelling. [...] and hemoglobin A1c and follows up with [facility] endocrinology. She is seen maintenance helper in the past. She follows up with blood donor unit assistant and kidney function is stable. Foot care discussed with the patient. Hypertension/hyper lipidemia. Blood pressure well controlled and last lipid panel was within reasonable limits Obstructive sleep apnea. Continue on CPAP machine and no daytime sleepiness. Moderate persistent asthma. She stable when she follows up with painter maintenance Anxiety/depression . Stable on current regimen. Considering her neuropathy she may be a good candidate for duloxetine which can be added to her regimen and she will check with her psychiatrist. Chronic kidney disease. She is stable and she follows up with blood donor unit assistant to avoid NSAIDs. Right lower extremity swelling. [...] disease stage IIIa and follows up with blood donor unit assistant is here today for annual physical. Diabetes mellitus type 2 with diabetic neuropathy. Her last hemoglobin A1c was 7.1. She is stable on the above-mentioned regimen. She follows up with qc scientist. She is seeing maintenance helper in the past 1 year. She takes [...] for GLP-1. Advised to talk to her qc scientist to start the medication. EKG is normal sinus rhythm at [address] with no acute [address] or T wave changes., no bundle branch blocks, normal intervals She is up to date on age specific screening. She is full code and her is her healthcare proxy 02/21/2024 Chronic kidney disease, stage 3 unspecified (ICD-10 - N18.30) Maribell is a 63-year-old lady with DM2, hypertension, hyperlipidemia, asthma, insomnia and anxiety here for follow up. Plan is as follows: Type II diabetes mellitus. Hb A1c improve energy 6.1.She is on right medications. She has seen her maintenance helper in the past 1 year. Foot care [...] because she is on temazepam. Referred to [facility] Dr. Iraheta. Chronic kidney [...] this note under HIPAA compliance and under [place] law mandated for scribe services. Patient aware of service. Verbal consent and written consent taken from the patient. Patient understands and verbalizes understanding of the scribes services and all questions answered regarding scribes services. Patient agrees to use of scribes services. 11/26/2024 Chronic kidney disease, stage 3a (ICD-10 - N18.31) Maribell is a 64-year-old lady with DM2, hypertension, hyperlipidemia, asthma, insomnia, anxiety, obstructive sleep apnea, peripheral vascular disease, DVT right lower extremity, obesity, chronic kidney disease stage IIIa and follows up with blood donor unit assistant is here today for annual physical. Diabetes mellitus type 2 with diabetic neuropathy. Her last hemoglobin A1c was 7.1. She is stable on the above-mentioned regimen. She follows up with qc scientist. She is seeing maintenance helper in the past 1 year. She takes [...] for GLP-1. Advised to talk to her qc scientist to start the medication. EKG is normal [...] and hemoglobin A1c and follows up with [facility] endocrinology. She is seen maintenance helper in the past. She follows up with blood donor unit assistant and kidney function is stable. Foot care discussed with the patient. Hypertension/hyper lipidemia. Blood pressure well controlled and last lipid panel was within reasonable limits Obstructive sleep apnea. Continue on CPAP machine and no daytime sleepiness. Moderate persistent asthma. She stable when she follows up with painter maintenance Anxiety/depression . Stable on current regimen. Considering her neuropathy she may be a good candidate for duloxetine which can be added to her regimen and she will check with her psychiatrist. Chronic kidney disease. She is stable and she follows up with blood donor unit assistant to avoid NSAIDs. Right lower extremity swelling. [...] with diabetic neuropathy. She follows up with [facility] endocr[facility]ology and according to patient her last A1c was within normal range. She is seen maintenance helper in the past. She follows up with blood donor unit assistant and kidney function is stable. Foot care discussed with the patient. Hypertension/hyper lipidemia. Blood pressure well controlled and last lipid panel was within reasonable limits Obstructive sleep apnea. Continue on CPAP machine and no daytime sleepiness. Moderate persistent asthma. She stable when she follows up with painter maintenance Anxiety/depression . Stable on current regimen. Considering her neuropathy she may be a good candidate for duloxetine which can be added to her regimen and she will check with her psychiatrist. Chronic kidney disease. She is stable and she follows up with blood donor unit assistant to avoid NSAIDs. Right lower extremity swelling. [...] afternoon for breakthrough pains. She follows with [facility] Dr. Iraheta. Chronic kidney disease stage 3. -She does not appear to be in volume overload. Advised appropriate hydration. Avoid NSAIDs. She sees Dr. Lakhani. Asthma. -She uses her inhalers as needed. Follows with Dr. Shipley-[facility] Generalized anxiety disorder. -Mood is stable on Lorazepam 3 times a day. She has a psychiatrist and a therapist. GERD/gastroparesis /dysphagia - Currently she is on omperazole 20m and Reglan 10 MG twice a day. I have increased omperazole to 40mg and advised patient to follow-up with her GI at [place]. She has an appt in May. MUSA: [...] afternoon for breakthrough pains. She follows with [facility] Dr. Iraheta. Chronic kidney disease stage 3. -She does not appear to be in volume overload. Advised appropriate hydration. Avoid NSAIDs. She sees Dr. Lakhani. Asthma. -She uses her inhalers as needed. Follows with Dr. [facility]ley[facility] Generalized anxiety disorder. -Mood is stable on Lorazepam 3 times a day. She has a psychiatrist and a therapist. GERD/gastroparesis /dysphagia - Currently she is on omperazole 20m and Reglan 10 MG twice a day. I have increased omperazole to 40mg and advised patient to follow-up with her GI at [place]. She has an appt in May. MUSA: [...] with diabetic neuropathy. She follows up with [facility] endocrinology and according to patient her last A1c was within normal range. She is seen maintenance helper in the past. She follows up with blood donor unit assistant and kidney function is stable. Foot care discussed with the patient. Hypertension/hyper lipidemia. Blood pressure well controlled and last lipid panel was within reasonable limits Obstructive sleep apnea. Continue on CPAP machine and no daytime sleepiness. Moderate persistent asthma. She stable when she follows up with painter maintenance Anxiety/depression . Stable on current regimen. Considering her neuropathy she may be a good candidate for duloxetine which can be added to her regimen and she will check with her psychiatrist. Chronic kidney disease. She is stable and she follows up with blood donor unit assistant to avoid NSAIDs. Right lower extremity swelling. [...] and hemoglobin A1c and follows up with [facility] endocrinology. She is seen maintenance helper in the past. She follows up with blood donor unit assistant and kidney function is stable. Foot care discussed with the patient. Hypertension/hyper lipidemia. Blood pressure well controlled and last lipid panel was within reasonable limits Obstructive sleep apnea. Continue on CPAP machine and no daytime sleepiness. Moderate persistent asthma. She stable when she follows up with painter maintenance Anxiety/depression . Stable on current regimen. Considering her neuropathy she may be a good candidate for duloxetine which can be added to her regimen and she will check with her psychiatrist. Chronic kidney disease. She is stable and she follows up with blood donor unit assistant to avoid NSAIDs. Right lower extremity swelling. [...] disease stage IIIa and follows up with blood donor unit assistant is here today for annual physical. Diabetes mellitus type 2 with diabetic neuropathy. Her last hemoglobin A1c was 7.1. She is stable on the above-mentioned regimen. She follows up with qc scientist. She is seeing maintenance helper in the past 1 year. She takes [...] for GLP-1. Advised to talk to her qc scientist to start the medication. EKG is normal [...] disease stage IIIa and follows up with blood donor unit assistant is here today for annual physical. Diabetes mellitus type 2 with diabetic neuropathy. Her last hemoglobin A1c was 7.1. She is stable on the above-mentioned regimen. She follows up with qc scientist. She is seeing maintenance helper in the past 1 year. She takes [...] for GLP-1. Advised to talk to her qc scientist to start the medication. EKG is normal [...] and hemoglobin A1c and follows up with [facility] endocrinology. She is seen maintenance helper in the past. She follows up with blood donor unit assistant and kidney function is stable. Foot care discussed with the patient. Hypertension/hyper lipidemia. Blood pressure well controlled and last lipid panel was within reasonable limits Obstructive sleep apnea. Continue on CPAP machine and no daytime sleepiness. Moderate persistent asthma. She stable when she follows up with painter maintenance Anxiety/depression . Stable on current regimen. Considering her neuropathy she may be a good candidate for duloxetine which can be added to her regimen and she will check with her psychiatrist. Chronic kidney disease. She is stable and she follows up with blood donor unit assistant to avoid NSAIDs. Right lower extremity swelling. [...] with diabetic neuropathy. She follows up with [facility] endocr[facility]ology and according to patient her last A1c was within normal range. She is seen maintenance helper in the past. She follows up with blood donor unit assistant and kidney function is stable. Foot care discussed with the patient. Hypertension/hyper lipidemia. Blood pressure well controlled and last lipid panel was within reasonable limits Obstructive sleep apnea. Continue on CPAP machine and no daytime sleepiness. Moderate persistent asthma. She stable when she follows up with painter maintenance Anxiety/depression . Stable on current regimen. Considering her neuropathy she may be a good candidate for duloxetine which can be added to her regimen and she will check with her psychiatrist. Chronic kidney disease. She is stable and she follows up with blood donor unit assistant to avoid NSAIDs. Right lower extremity swelling. [...] afternoon for breakthrough pains. She follows with [facility] Dr. Iraheta. Chronic kidney disease stage 3. -She does not appear to be in volume overload. Advised appropriate hydration. Avoid NSAIDs. She sees Dr. Lakhani. Asthma. -She uses her inhalers as needed. Follows with Dr. [facility] Generalized anxiety disorder. -Mood is stable on Lorazepam 3 times a day. She has a psychiatrist and a therapist. GERD/gastroparesis /dysphagia - Currently she is on omperazole 20m and Reglan 10 MG twice a day. I have increased omperazole to 40mg and advised patient to follow-up with her GI at [place]. She has an appt in May. MUSA: [...] with diabetic neuropathy. She follows up with [facility] endocrinology and according to patient her last A1c was within normal range. She is seen maintenance helper in the past. She follows up with blood donor unit assistant and kidney function is stable. Foot care discussed with the patient. Hypertension/hyper lipidemia. Blood pressure well controlled and last lipid panel was within reasonable limits Obstructive sleep apnea. Continue on CPAP machine and no daytime sleepiness. Moderate persistent asthma. She stable when she follows up with painter maintenance Anxiety/depression . Stable on current regimen. Considering her neuropathy she may be a good candidate for duloxetine which can be added to her regimen and she will check with her psychiatrist. Chronic kidney disease. She is stable and she follows up with blood donor unit assistant to avoid NSAIDs. Right lower extremity swelling. [...] afternoon for breakthrough pains. She follows with [facility] Dr. Iraheta. Chronic kidney disease stage 3. -She does not appear to be in volume overload. Advised appropriate hydration. Avoid NSAIDs. She sees Dr. Lakhani. Asthma. -She uses her inhalers as needed. Follows with Dr. [facility] Generalized anxiety disorder. -Mood is stable on Lorazepam 3 times a day. She has a psychiatrist and a therapist. GERD/gastroparesis /dysphagia - Currently she is on omperazole 20m and Reglan 10 MG twice a day. I have increased omperazole to 40mg and advised patient to follow-up with her GI at [place]. She has an appt in May. MUSA: [...] and hemoglobin A1c and follows up with [facility] endocrinology. She is seen maintenance helper in the past. She follows up with blood donor unit assistant and kidney function is stable. Foot care discussed with the patient. Hypertension/hyper lipidemia. Blood pressure well controlled and last lipid panel was within reasonable limits Obstructive sleep apnea. Continue on CPAP machine and no daytime sleepiness. Moderate persistent asthma. She stable when she follows up with painter maintenance Anxiety/depression . Stable on current regimen. Considering her neuropathy she may be a good candidate for duloxetine which can be added to her regimen and she will check with her psychiatrist. Chronic kidney disease. She is stable and she follows up with blood donor unit assistant to avoid NSAIDs. Right lower extremity swelling. [...] disease stage IIIa and follows up with blood donor unit assistant is here today for annual physical. Diabetes mellitus type 2 with diabetic neuropathy. Her last hemoglobin A1c was 7.1. She is stable on the above-mentioned regimen. She follows up with qc scientist. She is seeing maintenance helper in the past 1 year. She takes [...] for GLP-1. Advised to talk to her qc scientist to start the medication. EKG is normal [...] disease stage IIIa and follows up with blood donor unit assistant is here today for annual physical. Diabetes mellitus type 2 with diabetic neuropathy. Her last hemoglobin A1c was 7.1. She is stable on the above-mentioned regimen. She follows up with qc scientist. She is seeing maintenance helper in the past 1 year. She takes [...] for GLP-1. Advised to talk to her qc scientist to start the medication. EKG is normal [...] afternoon for breakthrough pains. She follows with [facility] Dr. Iraheta. Chronic kidney disease stage 3. -She does not appear to be in volume overload. Advised appropriate hydration. Avoid NSAIDs. She sees Dr. Lakhani. Asthma. -She uses her inhalers as needed. Follows with Dr. [facility] Generalized anxiety disorder. -Mood is stable on Lorazepam 3 times a day. She has a psychiatrist and a therapist. GERD/gastroparesis /dysphagia - Currently she is on omperazole 20m and Reglan 10 MG twice a day. I have increased omperazole to 40mg and advised patient to follow-up with her GI at [place]. She has an appt in May. MUSA: [...] afternoon for breakthrough pains. She follows with [facility] Dr. Iraheta. Chronic kidney disease stage 3. -She does not appear to be in volume overload. Advised appropriate hydration. Avoid NSAIDs. She sees Dr. Lakhani. Asthma. -She uses her inhalers as needed. Follows with Dr. [facility]ley[facility] Generalized anxiety disorder. -Mood is stable on Lorazepam 3 times a day. She has a psychiatrist and a therapist. GERD/gastroparesis /dysphagia - Currently she is on omperazole 20m and Reglan 10 MG twice a day. I have increased omperazole to 40mg and advised patient to follow-up with her GI at [place]. She has an appt in May. MUSA: [...] afternoon for breakthrough pains. She follows with [facility] Dr. Iraheta. Chronic kidney disease stage 3. -She does not appear to be in volume overload. Advised appropriate hydration. Avoid NSAIDs. She sees Dr. Lakhani. Asthma. -She uses her inhalers as needed. Follows with Dr. [facility] Generalized anxiety disorder. -Mood is stable on Lorazepam 3 times a day. She has a psychiatrist and a therapist. GERD/gastroparesis /dysphagia - Currently she is on omperazole 20m and Reglan 10 MG twice a day. I have increased omperazole to 40mg and advised patient to follow-up with her GI at [place]. She has an appt in May. MUSA: [...] afternoon for breakthrough pains. She follows with [facility] Dr. Iraheta. Chronic kidney disease stage 3. -She does not appear to be in volume overload. Advised appropriate hydration. Avoid NSAIDs. She sees Dr. Lakhani. Asthma. -She uses her inhalers as needed. Follows with Dr. [facility] Generalized anxiety disorder. -Mood is stable on Lorazepam 3 times a day. She has a psychiatrist and a therapist. GERD/gastroparesis /dysphagia - Currently she is on omperazole 20m and Reglan 10 MG twice a day. I have increased omperazole to 40mg and advised patient to follow-up with her GI at [place]. She has an appt in May. MUSA: [...] afternoon for breakthrough pains. She follows with [facility] Dr. Iraheta. Chronic kidney [...] patient to follow-up with her GI at [place]. She has an appt in May. MUSA: [...] afternoon for breakthrough pains. She follows with [facility] Dr. Iraheta. Chronic kidney disease stage 3. -She does not appear to be in volume overload. Advised appropriate hydration. Avoid NSAIDs. She sees Dr. Lakhani. Asthma. -She uses her inhalers as needed. Follows with Dr. Quinten-[facility] Generalized anxiety disorder. -Mood is stable on Lorazepam 3 times a day. She has a psychiatrist and a therapist. GERD/gastroparesis /dysphagia - Currently she is on omperazole 20m and Reglan 10 MG twice a day. I have increased omperazole to 40mg and advised patient to follow-up with her GI at [place]. She has an appt in May. MUSA: [...] Provider Name:ELLA MICHAEL , 05/29/2025 10:30:00 AM, [address] [place] [address], [phone], Insurance Providers Payer Name Payer Address Payer Phone Subscriber Number Group Number Insured Name Patient Relationship to Insured Coverage Start Date Coverage End Date [facility] [address] [place] [address] [id number] Maribell Taylor Self - patient is the insured Medical (General) History Medical History History ICD Code hypertension, benign hyperlipidemia IDDM T 2, [facility] Urinary incontinence and she sees Dr. England at [place] Left shoulder pain and she sees Dr. Alida villa and she is also seen Dr. Diaz Asthma and she sees Pul at [facility] Generalized anxiety disorder and she is seen by a psychiatrist and she goes to [facility] Pain management and has seen Dr. Montiel at [facility] in past Peripheral arterial disease and status post amputation below knee joint currently on Coumadin and goes to Coumadin clinic Lumbar radiculopathy on oxycodone 30 mg 3 times a day DVT leg LE sleep apnea see Pul at [facility] Left leg amputation below knee joint Chronic kidney disease stage 3, Dr. Janis smalls Personal history of COVID-19 [facility] Surgical History Surgery Date(Month/Year) rotator cuff tear repair September 2017 wrist surgery below the knee amputation 07 left side for Blood clots 2/2 to OCP and pt was smoking rt toes amputation 2004 right wrist synovial cyst resection, Dr. Henriquez 2021 right carpal tunnel decompression, Dr. Flores hadley 2021 Hospitalization History Reason Date(Month/Year)
--- OUTSIDE RECORDS SUMMARY | 2025-02-12 10:08 | XMS_ITS | Clinical Summary ---
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[employer] Name Role Phone Samuel Hilario MD Primary Care Provider [phone] Allergies Active Allergy Reactions Criticality Noted Date Comments Aspirin Anaphylaxis,Hives High 05/26/2021 Gabapentin 05/26/2021 Pregabalin 03/22/2022 Menthol-Zinc Oxide Other (see comments) 022 Naproxen Hives 05/26/2021 Oxycodone-Acetaminophen Itching 05/26/2021 Valproic Acid Anaphylaxis High 05/26/2021 Hydrocodone-Acetaminophen Itching 05/26/2021 Medications glucose blood test strip See Instructions, # 100 each, Maintenance, Test three times daily, 08/21/17 18:59:38 EDT, Compound 08/22/19 18 Active cholecalciferol (VITAMIN D-3) 50 MCG (1999 UT) capsule Take 2,000 Int'l Units by mouth 08/22/19 18 Active albuterol (2.5 MG/3ML) 0.083% nebulizer solution Inhale 2.5 mg 05/17/19 19 Active apixaban (ELIQUIS) 5 MG tablet TAKE ONE TABLET BY MOUTH 2 (two) times a day 05/03/20 19 Active busPIRone (BUSPAR) 10 MG tablet Take 10 mg by mouth 08/22/19 18 Active cetirizine (ZyrTEC) 10 MG tablet Take 10 mg by mouth 08/22/19 18 Active citalopram (CeleXA) 20 MG tablet Take 20 mg by mouth 08/22/19 18 Active fluticasone HFA (Flovent HFA) 110 MCG/ACT inhaler Inhale 10/27/19 19 Active insulin glargine (LANTUS) 100 UNIT/ML injection Inject under the skin 03/02/20 18 Active Insulin Lispro, 1 Unit Dial, 100 UNIT/ML solution pen-injector Inject under the skin 05/03/20 19 Active insulin lispro (HumaLOG) 100 UNIT/ML injection Inject under the skin 05/04/20 18 Active lidocaine (XYLOCAINE) 2 % jelly Apply 0.2 g topically 03/06/20 18 Active loratadine (CLARITIN) 10 MG tablet Take 10 mg by mouth 10/27/19 19 Active losartan (COZAAR) 100 MG tablet Take 100 mg by mouth 08/22/19 18 Active metoprolol succinate XL (TOPROL-XL) 100 MG 24 hr tablet Take 100 mg by mouth 08/22/19 18 Active mometasone (ELOCON) 0.1 % cream Apply topically 03/06/20 18 Active montelukast (SINGULAIR) 10 MG tablet Take 10 mg by mouth 03/06/20 18 Active nystatin (MYCOSTATIN) powder Apply topically 03/19/20 14 Active pantoprazole (PROTONIX) 40 MG EC tablet Take 40 mg by mouth 08/22/19 18 Active amLODIPine (NORVASC) 5 MG tablet TAKE ONE TABLET BY MOUTH ONCE A DAY 06/08/19 22 Active fluticasone (FLONASE) 50 MCG/ACT nasal spray 06/09/19 22 Active hydrOXYzine (ATARAX) 25 MG tablet TAKE ONE TABLET BY MOUTH 3 (THREE) TIMES A DAY NEEDED 05/08/20 21 Active Comfort EZ Pen Alice 32G X 4 MM [facility] 06/09/19 22 Active Easy Comfort Lancets [facility] 06/09/19 22 Active gemfibrozil (LOPID) 600 MG tablet TAKE ONE TABLET BY MOUTH two (2) times a day 30 MINUTES BEFORE morning AND EVENING MEALS 06/01/19 22 Active omeprazole (PriLOSEC) [address] capsule TAKE ONE CAPSULE BY MOUTH DAILY DIRECTED BEFORE A MEAL 06/08/19 22 Active hydroCHLOROthiaz ede 25 MG tablet TAKE ONE TABLET BY MOUTH ONCE A DAY IN THE MORNING 06/08/19 22 Active temazepam (RESTORIL) 30 MG capsule Take 30 mg by mouth at night if needed 06/01/19 22 Active tiZANidine (ZANAFLEX) 4 MG tablet TAKE ONE TABLET BY MOUTH 3 (THREE) TIMES A DAY FOR 7 DAYS 03/30/20 21 Active EPINEPHrine (EPIPEN IJ) Inject as directed [...] this for 5 days. 10 tablet 1 07/17/19 22 Active solifenacin (VESICARE) 10 MG tablet Take [...] total) in the evening. 180 capsule 3 03/04/20 22 Active Fluticasone-Salm eterol 250-50 MCG/ACT aerosol powder Inhale Active azelastine (ASTELIN) 0.1 % nasal spray 2 sprays each nostril each day Active docusate calcium (SURFAK) 240 MG capsule Take by mouth Active beclomethasone (QNASL) 80 MCG/ACT aerosol solution Administer 2 Squirts into affected nostril(s) 06/01/19 18 Active betamethasone, augmented, (DIPROLENE) 0.05 % cream Apply to eczematous patches daily as needed, for no longer than a 2-3 week period, then only on Sat/Sun 08/12/19 17 Active calcipotriene (DOVONOX) 0.005 % ointment Apply sparingly second after mometasone twice a day to affected areas on arms and legs as needed 11/14/19 17 Active clotrimazole-bet amethasone (LOTRISONE) cream Apply topically Acti ve clobetasol (TEMOVATE) 0.05 % cream To affected area 2-3 times daily for no more than 2-3 weeks, then only using on the weekends prn 08/12/19 17 Active fluconazole (DIFLUCAN) 150 MG tablet Take one tab today, if no improvement in 3 dys then take 2nd dose 06/01/19 23 Active diclofenac (VOLTAREN) 75 MG EC tablet Take 75 mg by mouth Active ipratropium-albu terol (DUO-NEB) 0.5-2.5 mg/3 mL nebulizer solution Inhale 07/02/19 10 Active Lactobacillus (Acidophilus) capsule Take 1 capsule by mouth 1 (one) time each day 03/09/20 22 Active levalbuterol (XOPENEX) 0.63 MG/3ML nebulizer solution Inhale 0.63 mg 06/01/19 18 Active Mirabegron ER (Myrbetriq) 25 MG tablet sustained-releas e 24 hour 1 tablet 09/11/19 17 Active metFORMIN (GLUCOPHAGE) 850 MG tablet Take 850 mg by mouth Active ezetimibe (ZETIA) 10 MG tablet Take 10 mg by mouth 1 (one) time each day 09/11/19 23 Active Vibegron (Gemtesa) 75 MG tablet Take by mouth Active Tirzepatide (MOUNJARO SC) Inject under the skin Active salmeterol (Serevent Diskus) 50 MCG/DOSE diskus inhaler Inhale 50 mcg 04/07/20 18 025 Discontin ued(Med List Maintenan ce) Insulin Degludec (TRESIBA FLEXTOUCH SC) once a week, 0 Refills, Maintenance, 02/11/20 10:04:00 EDT 02/11/20 20 025 Discontin ued(Med List Maintenan ce) Trulicity 3 MG/0.5ML solution pen-injector INJECT THE CONTENT OF 1 pen UNDER THE SKIN EACH WEEK DIRECTED 06/01/19 22 025 Discontin ued(Med List Maintenan ce) oxyCODONE (ROXICODONE) 30 MG immediate release tablet 05/21/19 22 025 Discontin ued(Med List Maintenan ce) Semaglutide 3 MG tabletIndication s:Type 2 diabetes mellitus with diabetic chronic kidney disease (HCC) Take 1 tablet by mouth 1 (one) time each day 90 tablet 5 07/22/19 22 025 Discontin ued(Med List Maintenan ce) Empagliflozin (Jardiance) 10 MG tablet Take 1 tablet by mouth 04/23/20 22 025 Discontin ued(Med List Maintenan ce) Active Problems Problem Noted Date Diagnosed Date Dysuria 08/01/2024 Left flank pain 08/01/2024 Persistent proteinuria 02/06/2024 Stage 3a chronic kidney disease 02/02/2024 Gastroparesis due to diabetes mellitus 3 Insomnia 06/17/2021 Deep venous thrombosis 06/17/2021 Anxiety 06/17/2021 Asthma 05/26/2021 Bladder muscle dysfunction - overactive 05/26/19 Hypertension 05/26/2021 History of amputation of leg [...] incontinence 03/29/2014 Overview (09/06/2022): Darline. Changed to [place] Panic attack 03/29/2014 Overview (09/06/2022): Sees psych [...] Encounters Date Type Department Care Team Description 02/04/2025 11:15 AM EDT Office Visit [facility] [address] [address] Racheal Wood ARNP Stage 3a chronic kidney disease (HCC) (Primary Dx); Hypertension; Persistent proteinuria 12/07/2024 Orders Only [facility] [address] [address] Racheal Wood ARNP Stage 3a chronic kidney [...] Sign Reading Time Taken Comments Blood Pressure 126/70 02/04/2025 11:50 AM EDT Pulse 74 02/04/2025 11:40 AM EDT Temperature - - Respiratory Rate - - Oxygen Saturation 97% 02/04/2025 11:40 AM EDT Inhaled Oxygen Concentration - - Weight 104 kg (229 lb) 02/04/2025 11:40 AM EDT Height 157.5 cm (5' 2 ) 08/18/2021 11:20 AM EDT Body Mass Index 41.88 08/18/2021 11:20 AM EDT Plan of Treatment Upcoming Encounters Date Type Department Care Team (Late st Contact Info) Description 08/01/2025 1:15 PM EDT Office Visit [facility] [address] [phone] [place] RachealCHAIM [address] [address] Health Maintenance Due Date Last [...] Procedure Name Priority Date/Time Associated Diagnosis Comments MAGNESIUM Routine 01/31/2025 4:00 PM EDT Stage 3a chronic kidney disease (HCC) Hypertension PROTEIN / CREATININE RATIO, URINE Routine 01/31/2025 4:00 PM EDT Stage 3a chronic kidney disease (HCC) Hypertension URINE ALBUMIN / CREATININE RATIO Routine 01/31/2025 4:00 PM EDT Stage 3a chronic kidney disease (HCC) Hypertension CBC Routine 01/31/2025 4:00 PM EDT Stage 3a chronic kidney disease (HCC) Hypertension RENAL FUNCTION PANEL Routine 01/31/2025 4:00 PM EDT Stage 3a chronic kidney disease (HCC) Hypertension PTH, INTACT Routine 01/31/2025 4:00 PM EDT Stage 3a chronic kidney disease (HCC) Hypertension HEMOGLOBIN A1C Routine 06/17/2021 4:28 PM EST Type 2 diabetes mellitus with diabetic chronic kidney disease (HCC) from Last 3 Months or Most Recently Relevant to Health Maintenance Results * (ABNORMAL) Urine Protein / creatinine ratio (01/31/2025 4:00 PM EDT) Creatinine, Ur 144.4 Not Estab. mg/dL [facility] Protein, Ur 44.7 Not Estab. mg/dL [facility] Urine Protein/Creati nine Ratio 310(H) 0 - 200 mg/g creat [facility] Urine specimen (specimen) Urine specimen obtained by clean catch procedure / Unknown 01/31/2025 4:00 PM EDT 01/31/2025 Racheal Wood [facility] URINE ORDERABLES Final Result [facility] [address] [place] [address] * (ABNORMAL) Urine Albumin / Creatinine Ratio (01/31/2025 4:00 PM EDT) Albumin, Urine 117.0 Not Estab. ug/mL [facility] Albumin/Creatin ine Ratio 81(H) 0 - 29 mg/g creat [facility] Comment: Normal: 0 - 29 Moderately increased: 30 - 300 Severely increased: >300 Urine specimen (specimen) Urine specimen obtained by clean catch procedure / Unknown 01/31/2025 4:00 PM EDT 01/31/2025 Racheal Wood [facility] URINE ORDERABLES Final Result Performing Organization Address City/[facility]/ZIP Co de Phone Number [facility] [address] [place] [address] * CBC (01/31/2025 4:00 PM EDT) WBC 9.8 3.4 - 10.8 x10E3/uL [facility] RBC 4.30 3.77 - 5.28 x10E6/uL [facility] Hemoglobin 12.9 11.1 - 15.9 g/dL [facility] Hematocrit 39.9 34.0 - 46.6 % [facility] MCV 93 79 - 97 fL [facility] MCH 30.0 26.6 - 33.0 pg [facility] MCHC 32.3 31.5 - 35.7 g/dL [facility] RDW 12.9 11.7 - 15.4 % [facility] Platelets 215 150 - 450 x10E3/uL [facility] Blood specimen (specimen) Venous blood / Unknown 01/31/2025 4:00 PM EDT 01/31/2025 us Racheal [facility] LAB BLOOD ORDERABLES Final Result [facility] [address] [place] [address] * PTH, intact (01/31/2025 4:00 PM EDT) PTH 28 15 - 65 pg/mL [facility] Blood specimen (specimen) Venous blood / Unknown 01/31/2025 4:00 PM EDT 01/31/2025 [facility] LAB BLOOD ORDERABLES Final Result Performing Organization Address City/[facility]/ZIP Co de Phone Number [facility] [address] [place] [address] * Magnesium (01/31/2025 4:00 PM EDT) Pathologist [facility] Magnesium 1.7 1.6 - 2.3 mg/dL [facility] Blood specimen (specimen) Venous blood / Unknown 01/31/2025 4:00 PM EDT 01/31/2025 [facility] LAB BLOOD ORDERABLES Final Result Performing Organization Address City/[facility] de Phone Number [facility] [address] [place] [address] * (ABNORMAL) Renal function panel (01/31/2025 4:00 PM EDT) Glucose 261(H) 70 - 99 mg/dL [facility] BUN 23 8 - 27 mg/dL [facility] Creatinine 1.20(H) 0.57 - 1.00 mg/dL [facility] eGFR CKD-EPI CR 2020 51(L) >59 mL/min/1.7 3 [facility] BUN/Creatinine Ratio 19 12 - 28 [facility] Sodium 139 134 - 144 mmol/L [facility] Potassium 4.4 3.5 - 5.2 mmol/L [facility] Chloride 101 96 - 106 mmol/L [facility] Bicarbonate (CO2) 22 20 - 29 mmol/L [facility] Calcium 9.6 8.7 - 10.3 mg/dL [facility] Albumin 4.1 3.9 - 4.9 g/dL [facility] Phosphorus 3.1 3.0 - 4.3 mg/dL [facility] Blood specimen (specimen) Venous blood / Unknown 01/31/2025 4:00 PM EDT 01/31/2025 Racheal Wood [facility] LAB BLOOD ORDERABLES Final Result [facility] [address] [place] [address] * (ABNORMAL) Hemoglobin A1c (06/17/2021 4:28 PM EST) Hemoglobin A1C 9.2(H) (4.0-5.6) % [facility] Comment: MONITORING: In known diabetic patients, hemoglobin A1c targets should be discussed with health care provider. 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
[2025-02-12 10:10] LABS: Alanine Aminotransferase 49 U/L (0-31); Albumin Level 3.6 g/dL (3.5-5.0); Alkaline Phosphatase 73 U/L (39-117); Anion Gap 11 (12-20); Aspartate Amino Transferase 30 U/L (5-31); Blood Urea Nitrogen 32 mg/dL (9-16); Calcium 9.0 mg/dL (8.4-10.2); Carbon Dioxide 25 mmol/L (22-29); Chloride 103 mmol/L (96-108); Creatinine Clr Calc Pharmacy 55.1; Estimated Glomerular Filt Rate 46; Lipase 49 U/L (8-78); Magnesium 1.9 mg/dL (1.6-2.6); Potassium 5.2 mmol/L (3.3-5.1); Sodium 134 mmol/L (135-145); Total Protein 5.8 g/dL (6.5-8.0)
[2025-02-12 11:17] VITALS: BP 141/62; PULSE 66; RESP 14; TEMP 36.7; O2SAT 99
[2025-02-12 11:25] LABS: Glucose, Whole Blood 292 mg/dL (60-115)
== END 2025-02-12 11:39 | disposition home or self-care (01) ==
PROVIDERS: Emergency Provider Emergency Medicine; PCP Hospitalist
DX: E11.65 Type 2 diabetes mellitus with hyperglycemia (principal); I10 Essential (primary) hypertension; R32 Unspecified urinary incontinence; T38.3X6A Underdosing of insulin and oral hypoglycemic [antidiabetic] drugs, initial encounter; Y92.9 Unspecified place or not applicable; Z86.718 Personal history of other venous thrombosis and embolism; Z89.512 Acquired absence of left leg below knee
CPT/HCPCS: 36415; 80048; 80076; 82010; 82803; 82947; 83690; 83735; 85025; 93005; 96361; 96374; 99284; J7120

== ENCOUNTER → 2025-02-12 08:56 | Outpatient (BNV) | payer OTHER, SELFPAY | PROVIDERS: Emergency Provider Emergency Medicine; PCP Hospitalist; Visit Provider Internal Medicine Cardiovascular Disease | DX: R94.31 Abnormal electrocardiogram [ECG] [EKG] (principal); R53.1 Weakness | CPT/HCPCS: 93010 ==

== ENCOUNTER 2025-02-25 06:37 | Day surgery (SDC) | payer OTHER, SELFPAY ==
--- OUTSIDE RECORDS SUMMARY | 2025-01-09 07:05 | XMS_ITS | Clinical Summary ---
Author Organization [facility] Address [address] [place] [address] Phone Care Team Providers Care Fuel Efficient Aircraft Designer Name Role Phone Samuel Hilario MD Primary Care Provider [phone] Allergies Active Allergy Reactions Criticality Noted Date [...] that time. All questions answered. Diabetic gastroparesis ([facility] V24, [facility] V28 ) 08/25/2022 Prurigo nodularis 11/13/2016 [...] 2 diabetes mellitus wit h neurological manifestations ([facility] V24, [facility] V28) 03/29/2014 Overview (03/27/2024): Left stump neuropathy Intolerant metformin Refused increase med. See Tel. 02/02/16 Urinary incontinence 03/29/2014 Overview (03/27/2024): Darline. Changed to [place] Panic attacks 03/29/2014 Overview (03/27/2024): Sees psych Morbid obesity ([facility] V24, [facility] V28) 2013 Overview (03/27/2024): BMI 43.0 on 02/07/14 per transfer records MUSA (obstructive sleep apnea) 03/18/2014 Lumbosacral spondylosis without myelopathy 03/18 Eczema 03/18/2014 History of leg amputation ([facility] V24, [facility] V28) 03/18/2014 Overview (03/27/2024): BKA 08/10/11 left Lumbago 04/16/2009 S/P BKA (below knee amputation) ([facility] V24, S/[facility] V28) 12/30/2008 Overview (03/27/2024): left Sleep apnea 09/01/2005 Overview (03/27/2024): uses CPAP IMO update 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 ([facility] V24, [facility] V28) 08/19/2005 Overview (03/27/2024): from birthcontrol.had amputation on 10/11.on coumadin since October previous pcp dr ANA ignacio u/s negative in [place] 08/16/05 plastic sugeon for wound care s/p amputation.sees dr loyd for infection suresh gray is her plastic surgeon just finished reconstruciton Heartburn 08/19/2005 Phantom limb syndrome ([facility] V24, [facility] V28) 08/19/2005 Overview (03/27/2024): IMO update Asthma 08/19/2005 Depressive disorder 08/19/2005 Overview (03/27/2024): Shannon hernandez,[facility].they give wellbutrin,remerenon,seroquel Encounters Date Type Department Care Team Description 12/20/2024 1:45 PM EDT Office Visit Orthopedic Surgery - [address] [address] Nolberto Cruz, DPM Dermatophytosis of nail (Primary Dx); Acquired hammer toe of right foot; Type II diabetes mellitus with peripheral circulatory disorder ([facility] V24, [facility] V28); Diabetic mononeuropathy simplex ([facility] V24, [facility] V28); Hx of BKA, left ([facility] V24, [facility] V28); Corns and callosities from Last 3 [...] Date Site/Laterality Comments ENDOMETRIAL ABLATION 2006 PROCEDURE: CA ENDOMETRIAL ABLTJ THERMAL W/O HYSTEROSCOPIC GUID; COMMENT: Whit OTHER SURGICAL HISTORY 2011 Left PROCEDURE: HISTORICAL BELOW KNEE AMP; COMMENT: vascular problems COLONOSCOPY 08/20/2008 PROCEDURE: HISTORICAL COLONOSCOPY; COMMENT: normal TUBAL LIGATION PROCEDURE: HISTORICAL TUBAL LIGATION CARPAL TUNNEL RELEASE 2021 PROCEDURE: CA NEUROPLASTY &/TRANSPOS MEDIAN NRV CARPAL TUNNE Medical History Medical History Date Comments 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 V24, CMS[facility] V28) DX:Arterial embolism and thr ombosis of lower extremity (HCC) Left hip pain DX:Left hip pain Amenorrhea DX:Amenorrhea Chronic abdominal pain DX:Chroni c abdominal pain Asthma DX:Asthma Obesity DX:Obesity Amputation of leg ([facility] V 24, [facility] V28) DX:Amputation of leg ([facility]) Incontinence DX:Incontinence Otitis media DX:Otitis media Pelvic pain DX:Pelvic pain Left shoulder pain DX:Left shoul krystle pain Sleep apnea DX:Sleep apnea; COMMENT: CPAP Historical Medical DX 2004 DX:HTN; CO MMENT: Metropolol and Buspar Rotator cuff tear 05/18/2014 DX:Rotator cuf f tear; COMMENT: Chronic anterior/superior tear, managed medically Carpal tunnel syndrome 05/18/2014 DX:Carpal tunnel syndrome; COMMENT: left History of leg amputation (C ID/[facility] V24, CMS/[facility] V28) 03/18/2014 DX:History of leg amputation (HCC); COMMENT: BKA 08/10/11 (leg not specified) History of pulmonary embolism 03/18/2014 DX :History of pulmonary embolism; COMMENT: 2011 MUSA (obstructive sleep apnea) 03/18/2014 DX :MUSA (obstructive sleep apnea) Impaired fasting glucose 03/18/2014 DX:Impa ired fasting glucose Lumbosacral spondylosis with out myelopathy 03/18/2014 DX:Lumbosacral spondylosis w ithout myelopathy Eczema 03/18/2014 DX:Eczema Morbid obesity (CMS/HCC V24, [facility] V28) 03/18/2014 DX:Morbid obesity (HCC); COM MENT: BMI 43.0 on 02/07/14 Hypertension DX:Hypertension Type 2 diabetes mellitus wit hout complications ([facility] V24, [facility] V28) DX:Type 2 diabetes mellitus without [...] PM EST Office Visit Orthopedic Surgery - [place] [address] [facility] [address] [place] [address] [place] [phone] Nolberto Cruz, DPM [address] [phone] Health Maintenance Due Date Last Done Comments [...] BILATERAL in 1 year. Mammography location: [facility] Mammography at [address], [address] -------- FINAL REPORT -------- Dictated By: Sd Restrepo Dictated Date: 08/20/2024 16:32 ET Assigned Physician: Sd Restrepo Reviewed and Electronically Signed By: Sd Restrepo Signed Date: 08/20/2024 16:39 ET Workstation ID: [id number] Transcribed By: Self Edit Transcribed Date: 08/20/2024 16:32 ET Narrative 08/20/2024 4:39 PM EDT EXAM: SCREENING MAMMOGRAPHY, BILATERAL HISTORY: SCREENING. Paternal aunt diagnosed with breast cancer age 39 COMPARISON: 10/21/20 TECHNIQUE: Synthesized CC and MLO projections of each breast. Tomosynthesis of each breast in the CC and MLO projections. ADDITIONAL IMAGING: None Computer-aided detection was employed with the myJambi AI 3-D. TISSUE DENSITY: The breasts are [...] None Computer-aided detection was employed with the myJambi AI 3-D. TISSUE DENSITY: The breasts are [...] year. [facility]amm[facility] location: [facility] [address] [place], [address] -------- FINAL REPORT -------- Dictated By: Sd Restrepo Dictated Date: 08/20/2024 16:32 ET Assigned Physician: Sd Restrepo Reviewed and Electronically Signed By: Sd Restrepo Signed Date: 08/20/2024 16:39 ET Workstation ID: [id number] Transcribed By: Self Edit Transcribed Date: 08/20/2024 16:32 ET Betty Matt CNM IMG BI PROCEDURES Final Resul t * HPV with reflex genotype (08/07/2024 2:32 PM EDT) [facility] HPV Negative Negative LAB MICROBIOLOGY METHOD 08/08/2024 1:09 PM EDT [facility] Brushing/Spatula Cervix uteri structure / Unknown 08/07/2024 2:32 PM EDT 08/08/2024 6:17 AM EDT Betty Matt CNM LAB MOLECULAR DIAGNOSTICS ORD ERABLES Final Result [facility] [address] [place] [address], * HM Urine Albumin Creatinine Ratio (02/25/2017) Pathologist [facility] Urine Albumin Creatinine Ratio abstracted Historical Provider HEALTH MAINTENANCE Final Result * (ABNORMAL) Hemoglobin A1c (02/25/2017) [facility] Hemoglobin A1C 7.4(A) 4.0 - 6.0 % Blood Venous blood specimen / Unknown Historical Provider LAB BLOOD ORDERABLES Jessy l Result * (ABNORMAL) Lipid panel (02/25/2017) [facility] LDL/HDL Ratio 4 0 - 4 Triglycerides 280(A) 0 - 150 mg/dL Cholesterol 110 0 - 200 mg/dL HDL 29(A) >=40 mg/dL LDL Cholesterol 25 0 - 100 mg/dL Blood Venous blood specimen / Unknown Historical Provider LAB BLOOD ORDERABLES Jessy l Result * Hepatitis C Screening (01/02/2016) Pathologist [facility] Hepatitis C Screening abstracted [facility] Provider HEALTH MAINTENANCE Final Result * Depression Screening (08/19/2005) Pathologist [facility] Depression Screening abstracted [facility] Provider HEALTH MAINTENANCE Final Result from Last 3 Months or Most Recently Relevant to Health Maintenance Insurance [facility] [employer] Care Teams Fuel Efficient Aircraft Designer Relationship Specialty Start Date End Date Samuel Hilario MD [address] [phone] PCP - General Internal Medicine 03/19/20
--- OUTSIDE RECORDS SUMMARY | 2025-01-09 07:05 | XMS_ITS | Clinical Summary ---
Author Organization [facility] Address [address] [place] [phone] Phone Care Team Providers Care Potato Spotter Name Role Phone Samuel Hilario MD Primary Care Provider [phone] Allergies Active Allergy Reactions Criticality Noted Date [...] DAY NEEDED 1 Active Comfort EZ Pen [place] 32G X 4 MM [facility] 2 Active Easy Comfort Lancets [facility] 2 Active gemfibrozil (LOPID) 600 MG tablet [...] incontinence 03/29/2014 Overview (09/06/2022): Darline. Changed to [place] Panic attack 03/29/2014 Overview (09/06/2022): Sees psych [...] Only [facility] [address] [phone] Racheal Wood ARNP Stage 3a chronic kidney [...] [facility] [address] [phone] Racheal Wood ARNP [address] [phone] Health Maintenance Due Date Last [...] Creatinine, Ur 76.5 Not Estab. mg/dL [facility] Protein, Ur 29.8 Not Estab. mg/dL [facility] Urine Protein/Creati nine Ratio 390(H) 0 - 200 mg/g creat [facility] 11/07/2024 9:01 AM EDT 11/07/2024 Racheal [facility] LAB URINE ORDERABLES Final Result Performing Organization Address City/[facility] Co de Phone Number [facility] [address] [place] [address] * (ABNORMAL) Urine Albumin / Creatinine Ratio (11/07/2024 9:01 AM EDT) Albumin, Urine 35.1 Not Estab. ug/mL [facility] Albumin/Creatin ine Ratio 46(H) 0 - 29 mg/g creat [facility] Comment: Normal: 0 - 29 Moderately increased: 30 - 300 Severely increased: >300 11/07/2024 9:01 AM EDT 11/07/2024 [facility] LAB URINE ORDERABLES Final Result Performing Organization Address [facility] Co de Phone Number [facility] [address] [place] [address] * CBC (11/07/2024 9:01 AM EDT) WBC 9.5 3.4 - 10.8 x10E3/uL [facility] RBC 4.38 3.77 - 5.28 x10E6/uL [facility] Hemoglobin 13.3 11.1 - 15.9 g/dL [facility] Hematocrit 40.9 34.0 - 46.6 % [facility] MCV 93 79 - 97 fL [facility] MCH 30.4 26.6 - 33.0 pg [facility] MCHC 32.5 31.5 - 35.7 g/dL [facility] RDW 12.6 11.7 - 15.4 % [facility] Platelets 244 150 - 450 x10E3/uL [facility] 11/07/2024 9:01 AM EDT 11/07/2024 Racheal [facility] LAB BLOOD ORDERABLES Final Result [facility] [address] [place] [address] * PTH, Intact (11/07/2024 9:01 AM EDT) PTH 35 15 - 65 pg/mL [facility] 11/07/2024 9:01 AM EDT 11/07/2024 Racheal [facility] LAB BLOOD ORDERABLES Final Result Performing Organization Address [facility] Co de Phone Number [facility] [address] [place] [address] * Magnesium (11/07/2024 9:01 AM EDT) Magnesium 1.7 1.6 - 2.3 mg/dL [facility] 11/07/2024 9:01 AM EDT 11/07/2024 Racheal [facility] LAB BLOOD ORDERABLES Final Result Performing Organization Address City/[facility]/ZIP Co de Phone Number [facility] [address] [place] [address] * (ABNORMAL) Renal Function Panel (11/07/2024 9:01 AM EDT) Glucose 196(H) 70 - 99 mg/dL [facility] BUN 20 8 - 27 mg/dL [facility] Creatinine 1.17(H) 0.57 - 1.00 mg/dL [facility] eGFR CKD-EPI CR 2020 53(L) >59 mL/min/1.7 3 [facility] BUN/Creatinine Ratio 17 12 - 28 [facility] Sodium 138 134 - 144 mmol/L [facility] Potassium 4.5 3.5 - 5.2 mmol/L [facility] Chloride 102 96 - 106 mmol/L [facility] Bicarbonate (CO2) 20 20 - 29 mmol/L [facility] Calcium 9.7 8.7 - 10.3 mg/dL [facility] Albumin 4.0 3.9 - 4.9 g/dL [facility] Phosphorus 3.7 3.0 - 4.3 mg/dL [facility] 11/07/2024 9:01 AM EDT 11/07/2024 Racheal Wood [facility] LAB BLOOD ORDERABLES Final Result [facility] [address] [place] [address] * (ABNORMAL) Hemoglobin A1c (06/17/2021 4:28 PM EST) Hemoglobin A1C 9.2(H) (4.0-5.6) % [facility] Comment: MONITORING: In known diabetic patients, hemoglobin A1c targets should be discussed with health care provider. DIAGNOSTIC USE: The [place] Diabetes Association (ADA) and the World Health [...] Supplement 1 Testing performed or reported by [facility] [employer], a Service of [facility], [address] [place] [address] Bertin Bethea MD, Director Operating [facility]# [id number] Blood specimen (specimen) Venous blood / Unknown 06/17/2021 4:28 PM EST 06/17/2021 4:29 PM EST us Feroz Lakhani MD LAB BLOOD ORDERABLES Final Re sult [facility] from Last 3 Months or Most Recently Relevant to Health Maintenance Insurance [employer] Care Teams Potato Spotter Relationship Specialty Start Date End Date Samuel Hilario MD [address] [place] [address] PCP - General Internal Medicine 05/26/21
--- OUTSIDE RECORDS SUMMARY | 2025-01-09 07:06 | XMS_ITS | Patient Health Record ---
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 Prediabetes: 5.7 - 6.4 Diabetes: >6.4 Glycemic control for adults with diabetes: <7.0 Hemoglobin [id number] Reviewed date:08/04/2024 01:31:25 PM Interpretation: Performing Lab:[facility], [address] [facility], Phone - [phone], Director - Mohsen Notes/Report: Hemoglobin A1c 7.1 4.8-5.6 % . Prediabetes: 5.7 - 6.4 Diabetes: >6.4 Glycemic control for adults with diabetes: <7.0 Albumin/Creatinine Ratio,[facility] [id number] Reviewed date:08/04/2024 01:31:32 PM Interpretation: Performing Lab:[facility], [address] [place] [address], Phone - [phone], Director - Mohsen Notes/Report: Creatinine, Urine 88.2 Not Estab. mg/dL Albumin, Urine 19.2 Not Estab. ug/mL Alb/Creat Ratio 22 0-29 mg/g creat Normal: 0 - 29 Moderately increased: 30 - 300 Severely increased: >300 Albumin/Creatinine Ratio,Ur [id number] Reviewed date:09/03/2024 02:43:41 PM Interpretation: Performing Lab:[facility], [address] [place] [address], Phone - [phone], Director - Mohsen Notes/Report: Creatinine, Urine 75.8 Not Estab. mg/dL Albumin, Urine 24.0 Not Estab. ug/mL Alb/Creat Ratio 32 0-29 mg/g creat Normal: 0 - 29 Moderately increased: 30 - 300 Severely increased: >300 Lipid Panel-[id number] Reviewed date:09/03/2024 02:43:34 PM Interpretation: Performing Lab:[facility], [address] [place] [address], Phone - [phone], Director - Mohsen Notes/Report: Cholesterol, Total 126 100-199 mg/dL Triglycerides 205 0-149 mg/dL HDL Cholesterol 38 >39 mg/dL VLDL Cholesterol Timothy 33 5-40 mg/dL LDL Chol Calc (NIH) 55 0-99 mg/dL Lipid Panel-[id number] Reviewed date:08/26/2024 07:23:29 AM Interpretation: Performing Lab:[facility] [address] [place] [address], Phone - [phone], Director - Mohsen Notes/Report: Cholesterol, Total 125 100-199 mg/dL Triglycerides 203 0-149 mg/dL HDL Cholesterol 39 >39 mg/dL VLDL Cholesterol Timothy 33 5-40 mg/dL LDL Chol Calc (NIH) 53 0-99 mg/dL Lipid Panel-[id number] Reviewed date:08/16/2024 04:22:18 PM Interpretation: Performing Lab:[facility], [address] [facility], Phone - [phone], Director - MDNigel Notes/Report: Cholesterol, Total 132 100-199 mg/dL Triglycerides 228 0-149 mg/dL HDL Cholesterol 38 >39 mg/dL VLDL Cholesterol Timothy 37 5-40 mg/dL LDL Chol Calc (NIH) 57 0-99 mg/dL Comp. Metabolic Panel (14)-3 Reviewed date:08/04/2024 01:36:37 PM Interpretation: Performing Lab:[facility], [address] [facility], Phone - [phone], Director - MDNigel Notes/Report: Glucose 101 70-99 [...] (14)- Reviewed date:09/03/2024 02:43:50 PM Interpretation: Performing Lab:[facility], [address] [facility], Phone - [phone], Director - MDSvitlanay Notes/Report: Glucose 145 70-99 [...] screening system. Technical cytopathology services provided by [facility], at [address] [place] [address] (CLIA # [id number]/Omi Connelly MD, Art Psychotherapist.) Console Pap Interpretation Reported General Categorization Negative MG MAMMO DIGITAL SCREENING W TONG BILAT Reviewed date:08/22/2024 02:13:16 PM Interpretation: Performing Lab: Notes/Report: Note See Note [facility], a member of [facility] Patient Name: MARIBELL TAYLOR Date of : 1960 Reason for Exam: Breast cancer screen, avg risk, asymptomatic (Age => 42y) Exam Date: 08/20/2024 [id number] EST Report Status: Final Ordering Provider: TONY [...] Mamm[facility] location[facility] [address], [address] -------- FINAL REPOR T -------- Dictated By: Sd Holbrook Dictated Date: 08/20/2024 16:32 ET Assigned Physician: Sd Restrepo Reviewed and Electronically Signed By: Sd Restrepo Signed Date: 025 16:39 ET Workstation ID: [id number] Transcribed By: Self Edit Transcribed Date: 08/20/2024 16:32 ET HPV WITH REFLEX GENOTYPE Reviewed date:08/08/2024 01:37:20 PM Interpretation: Performing Lab: Notes/Report: HPV Negative Negative Reason For Referral Reason Evaluation and manag ement - Dr Cruz Diagnosis 1 Other hammer toe(s) (acquired), right foot (M20.41) Referral Organization [facility] Referring Provider First Name ELLA Referring Provider Last Name [facility] Referred Provider Specialty Podiatry General Notes Referral sent to [facility] General Surgery in [place] - Office will call patient for scheduling.Janene [...] Low back pain (M54.5 ) Referral Organization [facility] Referring Provider First Name ELLA Referring Provider Last Name [facility] Referring Provider Speciality Internal M edicine Referred Provider Specialty Pain Medicin e General Notes Referral sent to [facility] in [place] - Office will call patient for scheduling., [...] a day; Duration: 7 days 12/06/2023 Not-Taking Dtixvfiz-Jwhblafht-ON 1 % 4 drops into affected ear [...] 4 hours,PRN:for wheezing; Duration: 17 Not-Taking Nystatin-Triamcinolone 659868-5.1 UNIT/GM 1 application Externally Twice a day; [...] DAYS; Duration: 3 Active True Comfort Pen Destrehan 32G X 4 MM USE TO INJECT [...] W/U Status Risk Notes Problem Diabetic neuropathy (244443576) Diabetes mellitus due to underlying condition with diabetic neuropathy, unspecified (E08.40) Active confirmed Problem Morbid obesity (disorder) (799146283) Morbid (severe) obesity due to excess calories (E66.01) Active confirmed Problem Anxiety disorder (663287851) Anxiety disorder, unspecified (F41.9) Active confirmed Problem Essential tremor (395580535) Essential tremor (G25.0) Active confirmed Problem Insomnia (807979215) Insomnia, unspecified (G47.00) Active confirmed Problem Obstructive sleep apnea syndrome (05917904) Obstructive sleep apnea (adult) (pediatric) (G47.33) Active confirmed Problem Essential hypertensi on (53109663) Essential (primary) hypertension (I10) Active confirmed Problem Chronic kidney disea se due to hypertension (064534690931824) Hypertensive chronic kidney disease with stage 1 through stage 4 chronic kidney disease, or unspecified chronic kidney disease (I12.9) Active confirmed Problem Peripheral vascular disease (466455796) Peripheral vascular disease, unspecified (I73.9) Active confirmed Problem Embolism from thrombosis of vein of lower extremity (844974640) Chronic embolism and thrombosis of unspecified deep veins of unspecified lower extremity (I82.509) Active confirmed Problem Uncomplicated mild persistent asthma (635457723) Mild persistent asthma, uncomplicated (J45.30) Active confirmed Problem Polyp of colon (23036111) Polyp of colon (K63.5) Active confirmed Problem Acquired hammer toe of right foot (9531640538772211) Other hammer toe(s) (acquired), right foot (M20.41) Active confirmed Problem Shoulder joint pain (375434606) Pain in left shoulder (M25.512) Active confirmed Problem Lumbosacral radiculopathy (1838128) Radiculopathy, lumbosacral region (M54.17) Active confirmed Problem Dysphagia (80510160) Dysphagia, unspecified (R13.10) Active confirmed Problem Paresthesia (finding ) (58494891) Paresthesia of skin (R20.2) Active confirmed Problem Amputated below knee (088339855) Acquired absence of left leg below knee (Z89.512) Active confirmed Problem Pure hypercholesterolemia (097274818) Pure hypercholesterolem ia, unspecified (E78.00) Active confirmed Problem Chronic kidney disea se stage 3 (disorder) (678590951) Chronic kidney disease, stage 3 unspecified (N18.30) Active confirmed Problem Chronic kidney disea se stage 3A (disorder) (014077769) Chronic kidney disease, stage 3a (N18.31) Active confirmed Problem Type 2 diabetes mellitus with other specified complication, without long-term current use of insulin (E11.69) Active confirmed Problem Urinary incontinence (433485638) Urinary incontinence, unspecified type (R32) Active confirmed Problem Gastroesophageal reflux disease (023177163) Gastroesophageal reflux disease, unspecified whether esophagitis present (K21.9) Active confirmed Vital Signs Heart Rate 74 /min 11/26/2024 Temperature 97.0 degrees Fahrenheit 11/26/2024 Blood pressure diastolic 78 mm Hg 11/26/2024 Oximetry 96 % 11/26/2024 Height 62.24 in 11/26/2024 Blood pressure systolic 130 mm Hg 11/26/2024 Weight 229.8 lbs 11/26/2024 BMI 41.7 kg/m2 11/26/2024 Encounters Encounter Location Date Provider Diagnosis [address] [address] 02/01/2024 JARAMILLO GUL Other conjunctivitis H10.89 ; Left temporomandibular joint disorder, unspecified M26.602 ; Radiculopathy, lumbosacral region M54.17 and Other hammer toe(s) (acquired), right foot M20.[address] [address] 02/21/2024 JARAMILLO GUL Radiculopathy, lumbosacral region M54.17 ; Diabetes mellitus due to underlying condition with diabetic neuropathy, unspecified E08.40 ; Essential (primary) hypertension I10 and Chronic kidney disease, stage [address] [address] 02/29/2024 Adolfo Efraínpolykuldeep Acute URI J06.[address] [place] [address] 04/18/2024 Adolfo Vilchis Diabetes mellitus du e [...] of micturition R35.0 and Epidermal cyst L72.[address] [place] [address] 05/14/2024 JARAMILLO GUL Pain in right leg M7 9.[address] [place] [address] 05/23/2024 JARAMILLO GUL Diabetes mellitus du e to underlying condition with diabetic neuropathy, unspecified E08.40 ; Essential (primary) hypertension I10 ; Obstructive sleep apnea (adult) (pediatric) G47.33 ; Anxiety disorder, unspecified F41.9 ; Mild persistent asthma, uncomplicated J45.30 ; Chronic embolism and thrombosis of unspecified deep veins of unspecified lower extremity I82.509 and Chronic kidney disease, stage 3 unspecified N18.[address] [place] [address] 07/31/2024 JARAMILLO GUL Diabetes mellitus du e [...] kidney disease, stage 3 unspecified N18.[address] [place] [address] 09/17/2024 ELLA MICHAEL Unspecified fall, in itial encounter W19.XXXA and Pain in right leg M79.[address] [place] [address] 11/26/2024 ELLA MICHAEL Annual physical exam Z00.00 [...] deep veins of unspecified lower extremity I82.[address] [place] [address] 01/10/[address] [place] [address] 01/25/[address] [place] [address] 02/02/2024 ELLA MICHAEL Other conjunctivitis H10.[address] [place] [address] 02/07/[address] [place] [address] 02/16/2024 ELLA MICHAEL Diabetes mellitus du e to underlying condition with diabetic neuropathy, unspecified E08.[address] [place] [address] 02/23/[address] [place] [address] 02/28/2024 [facility] [address] [facility] [address] [place] [address] 03/05/2024 [facility] [address] [place] [address] 04/16/2024 [facility] [address] [place] [address] 04/16/2024 [facility] [address] [place] [address] 06/21/2024 [facility] [address] [place] [address] 07/13/2024 [facility] [address] [place] [address] 07/30/2024 [facility] [address] [place] [address] 08/16/2024 [facility] [address] [place] [address] 08/16/2024 [facility] Pure hypercholesterolemia, unspecified E78.00 [facility] [address] [place] [address] 08/22/2024 [facility] [address] [place] [address] 08/22/2024 [facility] [address] [place] [address] 09/25/2024 [facility] Acute URI J06.9 [facility] [address] [place] [address] 11/08/2024 [facility] [address] [place] [address] 11/12/2024 [facility] [address] [place] [address] 11/26/2024 ELLA MICHAEL Peripheral vascular disease, unspecified [...] was negative and it was sent to [facility] for further evaluation and it was reported [...] this note under HIPAA compliance and under [place] law mandated for scribe services. Patient aware [...] was negative and it was sent to [facility] for further evaluation and it was reported [...] this note under HIPAA compliance and under [place] law mandated for scribe services. Patient aware [...] on right medications. She has seen her tin can feeder in the past 1 year. Foot care [...] because she is on temazepam. Referred to [facility] Dr. Iraheta. Chronic kidney [...] this note under HIPAA compliance and under [place] law mandated for scribe services. Patient aware of service. Verbal consent and written consent taken from the patient. Patient understands and verbalizes understanding of the scribes services and all questions answered regarding scribes services. Patient agrees to use of scribes services. 02/21/2024 Diabetes mellitus due to underlying condition with diabetic neuropathy, unspecified (ICD-10 - E08.40) Mariblel is a 63-year-old lady with DM2, hypertension, hyperlipidemia, asthma, insomnia and anxiety here for follow up. Plan is as follows: Type II diabetes mellitus. Hb A1c improve energy 6.1.She is on right medications. She has seen her tin can feeder in the past 1 year. Foot care [...] because she is on temazepam. Referred to [facility] Dr. Iraheta. Chronic kidney [...] this note under HIPAA compliance and under [place] law mandated for scribe services. Patient aware [...] afternoon for breakthrough pains. She follows with [facility] Dr. Iraheta. Chronic kidney disease stage 3. -She does not appear to be in volume overload. Advised appropriate hydration. Avoid NSAIDs. She sees Dr. Lakhani. Asthma. -She uses her inhalers as needed. Follows with Dr. Shipley-[facility] Generalized anxiety disorder. -Mood is stable on Lorazepam 3 times a day. She has a psychiatrist and a therapist. GERD/gastroparesis /dysphagia - Currently she is on omperazole 20m and Reglan 10 MG twice a day. I have increased omperazole to 40mg and advised patient to follow-up with her GI at [place]. She has an appt in May. MUSA: [...] with diabetic neuropathy. She follows up with [facility] endocrinology and according to patient her last A1c was within normal range. She is seen tin can feeder in the past. She follows up with copper etcher and kidney function is stable. Foot care discussed with the patient. Hypertension/hyper lipidemia. Blood pressure well controlled and last lipid panel was within reasonable limits Obstructive sleep apnea. Continue on CPAP machine and no daytime sleepiness. Moderate persistent asthma. She stable when she follows up with manager employee relations Anxiety/depression . Stable on current regimen. Considering her neuropathy she may be a good candidate for duloxetine which can be added to her regimen and she will check with her psychiatrist. Chronic kidney disease. She is stable and she follows up with copper etcher to avoid NSAIDs. Right lower extremity swelling. [...] and hemoglobin A1c and follows up with [facility] endocr[facility]ology. She is seen tin can feeder in the past. She follows up with copper etcher and kidney function is stable. Foot care discussed with the patient. Hypertension/hyper lipidemia. Blood pressure well controlled and last lipid panel was within reasonable limits Obstructive sleep apnea. Continue on CPAP machine and no daytime sleepiness. Moderate persistent asthma. She stable when she follows up with manager employee relations Anxiety/depression . Stable on current regimen. Considering her neuropathy she may be a good candidate for duloxetine which can be added to her regimen and she will check with her psychiatrist. Chronic kidney disease. She is stable and she follows up with copper etcher to avoid NSAIDs. Right lower extremity swelling. [...] is on Eliquis. She was taken to [facility] ER where she had CT scan of [...] is on Eliquis. She was taken to [facility] ER where she had CT scan of [...] disease stage IIIa and follows up with copper etcher is here today for annual physical. Diabetes mellitus type 2 with diabetic neuropathy. Her last hemoglobin A1c was 7.1. She is stable on the above-mentioned regimen. She follows up with security incident response specialist. She is seeing tin can feeder in the past 1 year. She takes [...] for GLP-1. Advised to talk to her security incident response specialist to start the medication. EKG is normal [...] disease stage IIIa and follows up with copper etcher is here today for annual physical. Diabetes mellitus type 2 with diabetic neuropathy. Her last hemoglobin A1c was 7.1. She is stable on the above-mentioned regimen. She follows up with security incident response specialist. She is seeing tin can feeder in the past 1 year. She takes [...] for GLP-1. Advised to talk to her security incident response specialist to start the medication. EKG is normal [...] disease stage IIIa and follows up with copper etcher is here today for annual physical. Diabetes mellitus type 2 with diabetic neuropathy. Her last hemoglobin A1c was 7.1. She is stable on the above-mentioned regimen. She follows up with security incident response specialist. She is seeing tin can feeder in the past 1 year. She takes [...] for GLP-1. Advised to talk to her security incident response specialist to start the medication. EKG is normal [...] and hemoglobin A1c and follows up with [facility]. She is seen tin can feeder in the past. She follows up with copper etcher and kidney function is stable. Foot care discussed with the patient. Hypertension/hyper lipidemia. Blood pressure well controlled and last lipid panel was within reasonable limits Obstructive sleep apnea. Continue on CPAP machine and no daytime sleepiness. Moderate persistent asthma. She stable when she follows up with manager employee relations Anxiety/depression . Stable on current regimen. Considering her neuropathy she may be a good candidate for duloxetine which can be added to her regimen and she will check with her psychiatrist. Chronic kidney disease. She is stable and she follows up with copper etcher to avoid NSAIDs. Right lower extremity swelling. [...] and hemoglobin A1c and follows up with [facility]. She is seen tin can feeder in the past. She follows up with copper etcher and kidney function is stable. Foot care discussed with the patient. Hypertension/hyper lipidemia. Blood pressure well controlled and last lipid panel was within reasonable limits Obstructive sleep apnea. Continue on CPAP machine and no daytime sleepiness. Moderate persistent asthma. She stable when she follows up with manager employee relations Anxiety/depression . Stable on current regimen. Considering her neuropathy she may be a good candidate for duloxetine which can be added to her regimen and she will check with her psychiatrist. Chronic kidney disease. She is stable and she follows up with copper etcher to avoid NSAIDs. Right lower extremity swelling. [...] with diabetic neuropathy. She follows up with [facility] and according to patient her last A1c was within normal range. She is seen tin can feeder in the past. She follows up with copper etcher and kidney function is stable. Foot care discussed with the patient. Hypertension/hyper lipidemia. Blood pressure well controlled and last lipid panel was within reasonable limits Obstructive sleep apnea. Continue on CPAP machine and no daytime sleepiness. Moderate persistent asthma. She stable when she follows up with manager employee relations Anxiety/depression . Stable on current regimen. Considering her neuropathy she may be a good candidate for duloxetine which can be added to her regimen and she will check with her psychiatrist. Chronic kidney disease. She is stable and she follows up with copper etcher to avoid NSAIDs. Right lower extremity swelling. [...] afternoon for breakthrough pains. She follows with [facility] Dr. Iraheta. Chronic kidney disease stage 3. -She does not appear to be in volume overload. Advised appropriate hydration. Avoid NSAIDs. She sees Dr. Lakhani. Asthma. -She uses her inhalers as needed. Follows with Dr. Shipley-[facility] Generalized anxiety disorder. -Mood is stable on Lorazepam 3 times a day. She has a psychiatrist and a therapist. GERD/gastroparesis /dysphagia - Currently she is on omperazole 20m and Reglan 10 MG twice a day. I have increased omperazole to 40mg and advised patient to follow-up with her GI at [place]. She has an appt in May. MUSA: [...] on right medications. She has seen her tin can feeder in the past 1 year. Foot care [...] because she is on temazepam. Referred to [facility] Dr. Iraheta. Chronic kidney [...] this note under HIPAA compliance and under [place] law mandated for scribe services. Patient aware [...] was negative and it was sent to [facility] for further evaluation and it was reported [...] this note under HIPAA compliance and under [place] law mandated for scribe services. Patient aware [...] was negative and it was sent to [facility] for further evaluation and it was reported [...] this note under HIPAA compliance and under [place] law mandated for scribe services. Patient aware [...] on right medications. She has seen her tin can feeder in the past 1 year. Foot care [...] because she is on temazepam. Referred to [facility] Dr. Iraheta. Chronic kidney [...] this note under HIPAA compliance and under [place] law mandated for scribe services. Patient aware [...] with diabetic neuropathy. She follows up with [facility] and according to patient her last A1c was within normal range. She is seen tin can feeder in the past. She follows up with copper etcher and kidney function is stable. Foot care discussed with the patient. Hypertension/hyper lipidemia. Blood pressure well controlled and last lipid panel was within reasonable limits Obstructive sleep apnea. Continue on CPAP machine and no daytime sleepiness. Moderate persistent asthma. She stable when she follows up with manager employee relations Anxiety/depression . Stable on current regimen. Considering her neuropathy she may be a good candidate for duloxetine which can be added to her regimen and she will check with her psychiatrist. Chronic kidney disease. She is stable and she follows up with copper etcher to avoid NSAIDs. Right lower extremity swelling. [...] afternoon for breakthrough pains. [facility] [facility] Iraheta. Chronic kidney disease stage 3. -She does not appear to be in volume overload. Advised appropriate hydration. Avoid NSAIDs. She sees Dr. Lakhani. Asthma. -She uses her inhalers as needed. Follows with Dr. Shipley-[facility] Generalized anxiety disorder. -Mood is stable on Lorazepam 3 times a day. She has a psychiatrist and a therapist. GERD/gastroparesis /dysphagia - Currently she is on omperazole 20m and Reglan 10 MG twice a day. I have increased omperazole to 40mg and advised patient to follow-up with her GI at [place]. She has an appt in May. MUSA: [...] and hemoglobin A1c and follows up with [facility] endocrinology. She is seen tin can feeder in the past. She follows up with copper etcher and kidney function is stable. Foot care discussed with the patient. Hypertension/hyper lipidemia. Blood pressure well controlled and last lipid panel was within reasonable limits Obstructive sleep apnea. Continue on CPAP machine and no daytime sleepiness. Moderate persistent asthma. She stable when she follows up with manager employee relations Anxiety/depression . Stable on current regimen. Considering her neuropathy she may be a good candidate for duloxetine which can be added to her regimen and she will check with her psychiatrist. Chronic kidney disease. She is stable and she follows up with copper etcher to avoid NSAIDs. Right lower extremity swelling. [...] disease stage IIIa and follows up with copper etcher is here today for annual physical. Diabetes mellitus type 2 with diabetic neuropathy. Her last hemoglobin A1c was 7.1. She is stable on the above-mentioned regimen. She follows up with security incident response specialist. She is seeing tin can feeder in the past 1 year. She takes [...] for GLP-1. Advised to talk to her security incident response specialist to start the medication. EKG is normal [...] disease stage IIIa and follows up with copper etcher is here today for annual physical. Diabetes mellitus type 2 with diabetic neuropathy. Her last hemoglobin A1c was 7.1. She is stable on the above-mentioned regimen. She follows up with security incident response specialist. She is seeing tin can feeder in the past 1 year. She takes [...] for GLP-1. Advised to talk to her security incident response specialist to start the medication. EKG is normal [...] and hemoglobin A1c and follows up with [facility] endocrinology. She is seen tin can feeder in the past. She follows up with copper etcher and kidney function is stable. Foot care discussed with the patient. Hypertension/hyper lipidemia. Blood pressure well controlled and last lipid panel was within reasonable limits Obstructive sleep apnea. Continue on CPAP machine and no daytime sleepiness. Moderate persistent asthma. She stable when she follows up with manager employee relations Anxiety/depression . Stable on current regimen. Considering her neuropathy she may be a good candidate for duloxetine which can be added to her regimen and she will check with her psychiatrist. Chronic kidney disease. She is stable and she follows up with copper etcher to avoid NSAIDs. Right lower extremity swelling. [...] afternoon for breakthrough pains. She follows with [facility] Dr. Iraheta. Chronic kidney disease stage 3. -She does not appear to be in volume overload. Advised appropriate hydration. Avoid NSAIDs. She sees Dr. Lakhani. Asthma. -She uses her inhalers as needed. Follows with Dr. Shipley-[facility] Generalized anxiety disorder. -Mood is stable on Lorazepam 3 times a day. She has a psychiatrist and a therapist. GERD/gastroparesis /dysphagia - Currently she is on omperazole 20m and Reglan 10 MG twice a day. I have increased omperazole to 40mg and advised patient to follow-up with her GI at [place]. She has an appt in May. MUSA: [...] with diabetic neuropathy. She follows up with [facility] endocrinology and according to patient her last A1c was within normal range. She is seen tin can feeder in the past. She follows up with copper etcher and kidney function is stable. Foot care discussed with the patient. Hypertension/hyper lipidemia. Blood pressure well controlled and last lipid panel was within reasonable limits Obstructive sleep apnea. Continue on CPAP machine and no daytime sleepiness. Moderate persistent asthma. She stable when she follows up with manager employee relations Anxiety/depression . Stable on current regimen. Considering her neuropathy she may be a good candidate for duloxetine which can be added to her regimen and she will check with her psychiatrist. Chronic kidney disease. She is stable and she follows up with copper etcher to avoid NSAIDs. Right lower extremity swelling. [...] afternoon for breakthrough pains. She follows with [facility] Dr. Iraheta. Chronic kidney disease stage 3. -She does not appear to be in volume overload. Advised appropriate hydration. Avoid NSAIDs. She sees Dr. Lakhani. Asthma. -She uses her inhalers as needed. Follows with Dr. Shipley-[facility] Generalized anxiety disorder. -Mood is stable on Lorazepam 3 times a day. She has a psychiatrist and a therapist. GERD/gastroparesis /dysphagia - Currently she is on omperazole 20m and Reglan 10 MG twice a day. I have increased omperazole to 40mg and advised patient to follow-up with her GI at [place]. She has an appt in May. MUSA: [...] with diabetic neuropathy. She follows up with [facility] endocrinology and according to patient her last A1c was within normal range. She is seen tin can feeder in the past. She follows up with copper etcher and kidney function is stable. Foot care discussed with the patient. Hypertension/hyper lipidemia. Blood pressure well controlled and last lipid panel was within reasonable limits Obstructive sleep apnea. Continue on CPAP machine and no daytime sleepiness. Moderate persistent asthma. She stable when she follows up with manager employee relations Anxiety/depression . Stable on current regimen. Considering her neuropathy she may be a good candidate for duloxetine which can be added to her regimen and she will check with her psychiatrist. Chronic kidney disease. She is stable and she follows up with copper etcher to avoid NSAIDs. Right lower extremity swelling. [...] and hemoglobin A1c and follows up with [facility] endocrinology. She is seen tin can feeder in the past. She follows up with copper etcher and kidney function is stable. Foot care discussed with the patient. Hypertension/hyper lipidemia. Blood pressure well controlled and last lipid panel was within reasonable limits Obstructive sleep apnea. Continue on CPAP machine and no daytime sleepiness. Moderate persistent asthma. She stable when she follows up with manager employee relations Anxiety/depression . Stable on current regimen. Considering her neuropathy she may be a good candidate for duloxetine which can be added to her regimen and she will check with her psychiatrist. Chronic kidney disease. She is stable and she follows up with copper etcher to avoid NSAIDs. Right lower extremity swelling. [...] disease stage IIIa and follows up with copper etcher is here today for annual physical. Diabetes mellitus type 2 with diabetic neuropathy. Her last hemoglobin A1c was 7.1. She is stable on the above-mentioned regimen. She follows up with security incident response specialist. She is seeing tin can feeder in the past 1 year. She takes [...] for GLP-1. Advised to talk to her security incident response specialist to start the medication. EKG is normal [...] disease stage IIIa and follows up with copper etcher is here today for annual physical. Diabetes mellitus type 2 with diabetic neuropathy. Her last hemoglobin A1c was 7.1. She is stable on the above-mentioned regimen. She follows up with security incident response specialist. She is seeing tin can feeder in the past 1 year. She takes [...] for GLP-1. Advised to talk to her security incident response specialist to start the medication. EKG is normal [...] and hemoglobin A1c and follows up with [facility] endocrinology. She is seen tin can feeder in the past. She follows up with copper etcher and kidney function is stable. Foot care discussed with the patient. Hypertension/hyper lipidemia. Blood pressure well controlled and last lipid panel was within reasonable limits Obstructive sleep apnea. Continue on CPAP machine and no daytime sleepiness. Moderate persistent asthma. She stable when she follows up with manager employee relations Anxiety/depression . Stable on current regimen. Considering her neuropathy she may be a good candidate for duloxetine which can be added to her regimen and she will check with her psychiatrist. Chronic kidney disease. She is stable and she follows up with copper etcher to avoid NSAIDs. Right lower extremity swelling. [...] afternoon for breakthrough pains. She follows with [facility] Dr. Iraheta. Chronic kidney disease stage 3. -She does not appear to be in volume overload. Advised appropriate hydration. Avoid NSAIDs. She sees Dr. Lakhani. Asthma. -She uses her inhalers as needed. Follows with Dr. Shipley-[facility] Generalized anxiety disorder. -Mood is stable on Lorazepam 3 times a day. She has a psychiatrist and a therapist. GERD/gastroparesis /dysphagia - Currently she is on omperazole 20m and Reglan 10 MG twice a day. I have increased omperazole to 40mg and advised patient to follow-up with her GI at [place]. She has an appt in May. MUSA: [...] with diabetic neuropathy. She follows up with [facility] endocrinology and according to patient her last A1c was within normal range. She is seen tin can feeder in the past. She follows up with copper etcher and kidney function is stable. Foot care discussed with the patient. Hypertension/hyper lipidemia. Blood pressure well controlled and last lipid panel was within reasonable limits Obstructive sleep apnea. Continue on CPAP machine and no daytime sleepiness. Moderate persistent asthma. She stable when she follows up with manager employee relations Anxiety/depression . Stable on current regimen. Considering her neuropathy she may be a good candidate for duloxetine which can be added to her regimen and she will check with her psychiatrist. Chronic kidney disease. She is stable and she follows up with copper etcher to avoid NSAIDs. Right lower extremity swelling. [...] afternoon for breakthrough pains. She follows with [facility] Dr. Iraheta. Chronic kidney disease stage 3. -She does not appear to be in volume overload. Advised appropriate hydration. Avoid NSAIDs. She sees Dr. Lakhani. Asthma. -She uses her inhalers as needed. Follows with Dr. Shipley-[facility] Generalized anxiety disorder. -Mood is stable on Lorazepam 3 times a day. She has a psychiatrist and a therapist. GERD/gastroparesis /dysphagia - Currently she is on omperazole 20m and Reglan 10 MG twice a day. I have increased omperazole to 40mg and advised patient to follow-up with her GI at [place]. She has an appt in May. MUSA: [...] with diabetic neuropathy. She follows up with [facility] endocrinology and according to patient her last A1c was within normal range. She is seen tin can feeder in the past. She follows up with copper etcher and kidney function is stable. Foot care discussed with the patient. Hypertension/hyper lipidemia. Blood pressure well controlled and last lipid panel was within reasonable limits Obstructive sleep apnea. Continue on CPAP machine and no daytime sleepiness. Moderate persistent asthma. She stable when she follows up with manager employee relations Anxiety/depression . Stable on current regimen. Considering her neuropathy she may be a good candidate for duloxetine which can be added to her regimen and she will check with her psychiatrist. Chronic kidney disease. She is stable and she follows up with copper etcher to avoid NSAIDs. Right lower extremity swelling. [...] and hemoglobin A1c and follows up with [facility] endocrinology. She is seen tin can feeder in the past. She follows up with copper etcher and kidney function is stable. Foot care discussed with the patient. Hypertension/hyper lipidemia. Blood pressure well controlled and last lipid panel was within reasonable limits Obstructive sleep apnea. Continue on CPAP machine and no daytime sleepiness. Moderate persistent asthma. She stable when she follows up with manager employee relations Anxiety/depression . Stable on current regimen. Considering her neuropathy she may be a good candidate for duloxetine which can be added to her regimen and she will check with her psychiatrist. Chronic kidney disease. She is stable and she follows up with copper etcher to avoid NSAIDs. Right lower extremity swelling. [...] disease stage IIIa and follows up with copper etcher is here today for annual physical. Diabetes mellitus type 2 with diabetic neuropathy. Her last hemoglobin A1c was 7.1. She is stable on the above-mentioned regimen. She follows up with security incident response specialist. She is seeing tin can feeder in the past 1 year. She takes [...] for GLP-1. Advised to talk to her security incident response specialist to start the medication. EKG is normal [...] disease stage IIIa and follows up with copper etcher is here today for annual physical. Diabetes mellitus type 2 with diabetic neuropathy. Her last hemoglobin A1c was 7.1. She is stable on the above-mentioned regimen. She follows up with security incident response specialist. She is seeing tin can feeder in the past 1 year. She takes [...] for GLP-1. Advised to talk to her security incident response specialist to start the medication. EKG is normal [...] afternoon for breakthrough pains. She follows with [facility] Dr. Iraheta. Chronic kidney [...] patient to follow-up with her GI at [place]. She has an appt in May. MUSA: [...] afternoon for breakthrough pains. She follows with [facility] Dr. Iraheta. Chronic kidney disease stage 3. -She does not appear to be in volume overload. Advised appropriate hydration. Avoid NSAIDs. She sees Dr. Lakhani. Asthma. -She uses her inhalers as needed. Follows with Dr. Shipley-[facility] Generalized anxiety disorder. -Mood is stable on Lorazepam 3 times a day. She has a psychiatrist and a therapist. GERD/gastroparesis /dysphagia - Currently she is on omperazole 20m and Reglan 10 MG twice a day. I have increased omperazole to 40mg and advised patient to follow-up with her GI at [place]. She has an appt in May. MUSA: [...] afternoon for breakthrough pains. She follows with [facility] Dr. Iraheta. Chronic kidney disease stage 3. -She does not appear to be in volume overload. Advised appropriate hydration. Avoid NSAIDs. She sees Dr. Lakhani. Asthma. -She uses her inhalers as needed. Follows with Dr. Shipley-[facility] Generalized anxiety disorder. -Mood is stable on Lorazepam 3 times a day. She has a psychiatrist and a therapist. GERD/gastroparesis /dysphagia - Currently she is on omperazole 20m and Reglan 10 MG twice a day. I have increased omperazole to 40mg and advised patient to follow-up with her GI at [place]. She has an appt in May. MUSA: [...] afternoon for breakthrough pains. She follows with [facility] Dr. Iraheta. Chronic kidney disease stage 3. -She does not appear to be in volume overload. Advised appropriate hydration. Avoid NSAIDs. She sees Dr. Lakhani. Asthma. -She uses her inhalers as needed. Follows with Dr. Shipley-[facility] Generalized anxiety disorder. -Mood is stable on Lorazepam 3 times a day. She has a psychiatrist and a therapist. GERD/gastroparesis /dysphagia - Currently she is on omperazole 20m and Reglan 10 MG twice a day. I have increased omperazole to 40mg and advised patient to follow-up with her GI at [place]. She has an appt in May. MUSA: [...] afternoon for breakthrough pains. She follows with [facility] Dr. Iraheta. Chronic kidney disease stage 3. -She does not appear to be in volume overload. Advised appropriate hydration. Avoid NSAIDs. She sees Dr. Lakhani. Asthma. -She uses her inhalers as needed. Follows with Dr. Shipley-[facility] Generalized anxiety disorder. -Mood is stable on Lorazepam 3 times a day. She has a psychiatrist and a therapist. GERD/gastroparesis /dysphagia - Currently she is on omperazole 20m and Reglan 10 MG twice a day. I have increased omperazole to 40mg and advised patient to follow-up with her GI at [place]. She has an appt in May. MUSA: [...] afternoon for breakthrough pains. She follows with [facility] Dr. Iraheta. Chronic kidney disease stage 3. -She does not appear to be in volume overload. Advised appropriate hydration. Avoid NSAIDs. She sees Dr. Lakhani. Asthma. -She uses her inhalers as needed. Follows with Dr. Shipley-[facility] Generalized anxiety disorder. -Mood is stable on Lorazepam 3 times a day. She has a psychiatrist and a therapist. GERD/gastroparesis /dysphagia - Currently she is on omperazole 20m and Reglan 10 MG twice a day. I have increased omperazole to 40mg and advised patient to follow-up with her GI at [place]. She has an appt in May. MUSA: [...] Provider Name:ELLA MICHAEL , 05/29/2025 10:30:00 AM, [address] [place] [address], [place], [id number], Insurance Providers Payer Name Payer Address Payer Phone Subscriber Number Group Number Insured Name Patient Relationship to Insured Coverage Start Date Coverage End Date [facility] [address] [place] [address] [id number] PatelMaribell Self - patient is the insured Medical (General) History Medical History History ICD Code hypertension, benign hyperlipidemia IDDM T 2, [facility] endo Urinary incontinence and she sees Dr. England at [place] Left shoulder pain and she sees Dr. Alida villa and she is also seen Dr. Diaz Asthma and she sees Pul at [facility] Generalized anxiety disorder and she is seen by a psychiatrist and she goes to [facility] Pain management and has seen Dr. Montiel at [facility] in past Peripheral arterial disease and status post amputation below knee joint currently on Coumadin and goes to Coumadin clinic Lumbar radiculopathy on oxycodone 30 mg 3 times a day DVT leg LE sleep apnea [place] [facility] [place] amputation below knee joint Chronic kidney disease stage 3, Dr. Janis smalls Personal history of COVID-19 - [facility] Surgical History Surgery Date(Month/Year) rotator cuff tear repair September 2017 wrist surgery below the knee amputation 07 left side for Blood clots 2/2 to OCP and pt was smoking rt toes amputation 2004 right wrist synovial cyst resection, Dr. Henriquez 2021 right carpal tunnel decompression, Dr. Flores hadley 2021 Hospitalization History Reason Date(Month/Year)
[2025-02-25 05:37] VITALS: BMI 40.1
[2025-02-25 06:39] VITALS: BP 136/78; PULSE 87; RESP 18; TEMP 36.9; O2SAT 99
--- NOTE | 2025-02-25 07:43 | MHC.SHP ---
Pre-Procedural Eval Section A - 24 Hr Update-Section A only Date of Service: 02/25/25 The patient is an INPATIENT: No Changes since office visit: No Cold of Flu in the past 2 weeks, No New Medical Problems, No Changes in Medication and No Patient answered all questions The patient has been examined within 24 hours of the surgical procedure. The History & Physical has been completed within 30 days and I have reviewed it.: Yes Section B - Complete if H&P > 30 days Chief Complaint: Carpal tunnel syndrome, right upper limb Allergies: Allergies Allergy/AdvReac Type Severity Reaction Status Date / Time octopus Allergy Severe Anaphylaxis Verified 02/12/25 09:00 oxybutynin Allergy Severe Difficulty Verified 02/12/25 09:00 Swallowing tolterodine Allergy Severe Difficulty Verified 02/12/25 09:00 Swallowing aspirin Allergy Unknown anaphylaxis Verified 02/12/25 09:00 citalopram Allergy Unknown Unknown Verified 02/12/25 09:00 empagliflozin (From Allergy Unknown Unknown Verified 02/12/25 09:00 Jardiance) Fish Containing Products Allergy Unknown Unknown Verified 02/12/25 09:00 gabapentin Allergy Unknown hives Verified 02/12/25 09:00 hydrocodone (Vicodin) Allergy Unknown hives Verified 02/12/25 09:00 naproxen (Naprosyn) Allergy Unknown anaphylaxis Verified 02/12/25 09:00 pregabalin (From Lyrica) Allergy Unknown Unknown Verified 02/12/25 09:00 sertraline Allergy Unknown Unknown Verified 02/12/25 09:00 shellfish derived Allergy Unknown Unknown Verified 02/12/25 09:00 peanut Allergy Anaphylaxis Verified 02/12/25 09:00 solifenacin AdvReac phlegm Verified 02/12/25 09:00 Vicodin Allergy Unknown hives Uncoded 02/12/25 09:00 Plan Diagnosis/Plan: Unchanged I have reviewed the history and physical and performed a pertinent physical examination on my patient. No changes have occurred unless specified. Time Spent With Patient Time: Total time managing care of this patient today ____ minutes.
--- NOTE | 2025-02-25 08:28 | P.OP_ITS ---
Operative Note Operative Note Date of Service: 02/25/25 Narrative: Preop diagnosis: 1. Right recurrent Carpal tunnel syndrome Postop diagnosis: same Procedure: 1. Right repeat Carpal tunnel release Surgeon: Whit Carty MD Curing Room Supervisor: Win HOWARD Anesthesia: local block using 1% lidocaine with epinephrine Findings: Thickened transverse carpal ligament. EBL: Less than 5 mL Specimens: None Complications: None Disposition: Brought to recovery room in stable condition Plan: Follow-up for 10-14 days for wound check and suture removal Indications: The patient is a 64 years old, with recurrent right carpal tunnel syndrome that has been unresponsive to nonoperative management. The risks and benefits of operative treatment including but not limited to risk of damage to blood vessels, nerves, tendons, infection, persistent pain, persistent symptoms, or possible need for additional surgery were discussed with the patient and the patient wishes to proceed with surgery. Procedure: Once consent was obtained a local block was performed using a combination of 1% lidocaine with epinephrine. The patient was then brought back to the operating suite and placed on the operative table in supine position. The right upper extremity was prepped and draped in a standard surgical fashion. Once assured that we had a good block, a 2.0 cm longitudinal incision was made centered over the carpal tunnel and extended proximally in a zigzag fashion. The incision was made through the skin to the subcutaneous tissues using a #15 blade. Dissection was made down to the level of the volar forearm fascia just proximal to the distal wrist crease. There we made a longitudinal incision in the volar forearm fascia and identified the median nerve. We are then able to protect the median nerve as we proceeded distally through the scar tissue over the previous transverse carpal ligament. Once satisfied with our repeat carpal tunnel release the wound was copiously irrigated with normal saline and hemostasis was obtained with a brief period of local pressure. The skin edges were reapproximated with some 5.0 nylon suture material and a sterile dressing was applied. The patient appears to have tolerated the procedure well and with no complica tions. All digits were well vascularized at the conclusion of the case.
[2025-02-25 08:55] VITALS: BP 149/74; PULSE 77; RESP 16; O2SAT 100
== END 2025-02-25 08:54 | disposition home or self-care (01) ==
PROVIDERS: PCP Hospitalist; Visit Provider Orthopaedic Surgery
PROC: (CPT 64721; principal; 2025-02-25 08:00)
DX: G56.01 Carpal tunnel syndrome, right upper limb (principal); Z98.890 Other specified postprocedural states; I10 Essential (primary) hypertension; E11.9 Type 2 diabetes mellitus without complications; K31.84 Gastroparesis; R32 Unspecified urinary incontinence; Z89.421 Acquired absence of other right toe(s); Z79.01 Long term (current) use of anticoagulants; Z88.6 Allergy status to analgesic agent; Z88.5 Allergy status to narcotic agent; Z88.8 Allergy status to other drugs, medicaments and biological substances; Z91.010 Allergy to peanuts; Z91.013 Allergy to seafood; Z87.891 Personal history of nicotine dependence
CPT/HCPCS: 64721; J0165; J2003; J2004; J2795

== ENCOUNTER → 2025-02-25 06:37 | Outpatient (BNV) | payer OTHER, SELFPAY | PROVIDERS: PCP Hospitalist; Visit Provider Orthopaedic Surgery | DX: G56.01 Carpal tunnel syndrome, right upper limb (principal) | CPT/HCPCS: 64721 ==

== ENCOUNTER 2025-03-12 13:19 | Outpatient (AMB) | payer OTHER, SELFPAY ==
--- NOTE | 2025-03-12 13:59 | A.OFFVIS_ITS ---
Vital Signs 03/12/25 14:03 Height 5 ft 2 in Weight 200 lb BMI 36.6 Intake Visit Reasons: PO RT CTR 02/25/25 AR Intake Note: Maribell is a 64 year old right hand dominant female who presents today for a Post-Operative Visit status post Right Carpal Tunnel Release performed by Dr. Carty on 02/25/25. At today's visit she states that her right hand into the forearm has a pulling sensation. She noted that due to the numbness she has to wiggle her fingers to help get sensation back. Patient would like to add a note to today's visit, she has noticed for the past week her left pointer,middle and ring finger have been over lapping each other. Allergies octopus Allergy (Severe, Verified 02/12/25 09:00) Anaphylaxis oxybutynin Allergy (Severe, Verified 02/12/25 09:00) Difficulty Swallowing tolterodine Allergy (Severe, Verified 02/12/25 09:00) Difficulty Swallowing aspirin Allergy (Unknown, Verified 02/12/25 09:00) anaphylaxis citalopram Allergy (Unknown, Verified 02/12/25 09:00) Unknown empagliflozin (From Jardiance) Allergy (Unknown, Verified 02/12/25 09:00) Unknown Fish Containing Products Allergy (Unknown, Verified 02/12/25 09:00) Unknown gabapentin Allergy (Unknown, Verified 02/12/25 09:00) hives hydrocodone (Vicodin) Allergy (Unknown, Verified 02/12/25 09:00) hives naproxen (Naprosyn) Allergy (Unknown, Verified 02/12/25 09:00) anaphylaxis pregabalin (From Lyrica) Allergy (Unknown, Verified 02/12/25 09:00) Unknown sertraline Allergy (Unknown, Verified 02/12/25 09:00) Unknown shellfish derived Allergy (Unknown, Verified 02/12/25 09:00) Unknown peanut Allergy (Verified 02/12/25 09:00) Anaphylaxis solifenacin Adverse Reaction (Verified 02/12/25 09:00) phlegm Vicodin Allergy (Unknown, Uncoded 02/12/25 09:00) hives HPI HPI PO RT CTR 02/25/25 AR: Details: Maribell is a 64 year old right hand dominant female who presents today for a Post-Operative Visit status post Right Carpal Tunnel Release performed by Dr. Carty on 02/25/25. At today's visit she states that her right hand into the forearm has a pulling sensation. She noted that due to the numbness she has to wiggle her fingers to help get sensation back. Despite this, the patient does report that her sensation has improved since prior to surgery. Patient would like to add a note to today's visit, she has noticed for the past week her left pointer,middle and ring finger have been over lapping each other, and feels that there is a cramping sensation. [facility] Medical History Amputated toe of right foot Ganglion cyst Gastroparesis COVID-19 HTN (hypertension) Diabetes mellitus Urinary incontinence UTI (urinary tract infection) Surgical History History of left below knee amputation S/P carpal tunnel release History of surgical removal of ganglion cyst S/P rotator cuff repair History of surgery Social History Are you a primary primary care physician to a significant other at home: No Do you presently have visiting nurse or other home services: No Alcohol intake: never Patient Tobacco Use Status: Former Tobacco user Substance Use Type: Marijuana Current occupational status: disabled Current occupation: rt handed Review of Systems Const All systems reviewed & are unremarkable except as noted in HPI and below Physical Exam Vital Signs: BMI result Body Mass Index 36.6 Extrem Other: Patient is alert, oriented, and in no acute distress. Neuro: Normal sensation of the tips of all digits of the right hand at this time Vascular: Cap refill brisk Pain: No tenderness to palpation about the incision site on right volar wrist ROM: With encouragement, Patient is able to make a closed fist and extend all digits of the right hand fully Skin: Well approximated and well healing incision site noted on the volar right wrist No lacerations or abrasions. General: No ecchymosis, erythema, or evidence of infection. Psych: Appears grossly normal Affect normal Attitude cooperative Assessment & Plan Assessment & Plan (1) Carpal tunnel syndrome: Code(s): G56.00 - Carpal tunnel syndrome, unspecified upper limb Category: Medical Plan 1. Status post right carpal tunnel release DOS 02/25/2025 With symptomatic improvement, but not resolution, postoperatively Patient appears to be recovering fairly well postoperatively Patient is educated about the typical recovery course At this time, patient is informed that it can take up to 9 months for sensation to return after carpal tunnel release Patient understands this in his amenable to this plan I do feel that the patient is experiencing some postoperative stiffness in the right hand, so a course of OT we will be very helpful for her OT referral placed, patient amenable Follow-up as needed with any acute concerns Orders: Orders OT Evaluation and Treatment 03/12/25 G56.00 - Carpal tunnel syndrome, unspecified upper limb Coding Level of Care Code Global (53503) Diagnoses Carpal tunnel syndrome G56.00
[2025-03-12 14:03] VITALS: BMI 36.6
--- OUTSIDE RECORDS SUMMARY | 2025-03-12 16:14 | XMS_ITS | Patient Health Record ---
Author Organization [facility] Address [address] [place] [address] Care Team Providers Care Cullet Washer Name Role Phone ELLA MICHAEL Primary Care Provider [phone] Adolfo Vilchis Unavailable [phone] Allergies Allergen (clinical drug ingredient) Drug/Non Drug [...] kathleen Results Component Value Reference Range Notes HPV WITH REFLEX GENOTYPE Reviewed date:08/08/2024 01:37:20 [...] system. Technical cytopathology services provided by [facility], at [address] [place] [address] (IA # [id number]/Omi Connelly MD, [employer] Supervisor.) Console Pap Interpretation Reported General Categorization Negative MG MAMMO DIGITAL SCREENING W TONGMiguel Angel MILLER Reviewed date:08/22/2024 02:13:16 PM Interpretation: Performing Lab: Notes/Report: Note See Note [facility], a member of [facility] Patient Name: MARIBELL TAYLOR Date of : 1960 Reason for Exam: Breast cancer screen, avg risk, asymptomatic (Age => 42y) Exam Date: 08/20/2024 [id number] EST Report Status: Final Ordering Provider: TONY RAPP PCP: ELLA MICHAEL EXAM: SCREENING MAMMOGRAPHY, BILATERAL HISTORY: SCREENING. Paternal aunt diagnosed with breast cancer age 39 COMPARISON: 10/21/20 TECHNIQUE: Synthesiz ed CC and MLO projections of each breast. Tomosynthesis of each breast in the CC and MLO projections. ADDITIONAL IMAGING: None Computer-aided detection was employed with the [employer] AI 3-D. TISSUE DENSITY: The breasts are [...] Mammography location: [facility] [address] [place], [address] -------- FINAL REPOR T -------- Dictated By: Sd Holbrook Dictated Date: 08/20/2024 16:32 ET Assigned Physician: Sd Restrepo Reviewed and Electronically Signed By: Sd Restrepo Signed Date: 16:39 ET Workstation ID: [id number] Transcribed By: Self Edit Transcribed Date: 08/20/2024 16:32 ET Comp. Metabolic Panel (14)-3 Reviewed date:09/03/2024 02:43:50 PM Interpretation: Performing Lab:J Carlos Subramanian, [address] [facility], Phone - [phone], [facility] Notes/Report: Glucose 145 70-99 mg/dL BUN 21 8-27 mg/dL Creatinine 1.12 0.57-1.00 mg/dL eGFR 56 >59 mL/min/1.73 BUN/Creatinine Ratio 19 -28 Sodium 140 134-144 mmol/L Potassium 5.0 3.5-5.2 mmol/L Chloride 102 96-106 mmol/L Carbon Dioxide, Total 21 20-29 mmol/L Calcium 9.5 8.7-10.3 mg/dL Protein, Total 6.2 6.0-8.5 g/dL Albumin 4.0 3.9-4.9 g/dL Globulin, Total 2.2 1.5-4.5 g/dL Bilirubin, Total 0.4 0.0-1.2 mg/dL Alkaline Phosphatase 96 44-121 IU/L AST (SGOT) 23 0-40 IU/L ALT (SGPT) 38 0-32 IU/L Comp. Metabolic Panel (14)-3 Reviewed date:08/04/2024 01:36:37 PM Interpretation: Performing Lab:J Carlos Subramanian, [address] [facility], Phone - [phone], Director - [facility] Notes/Report: Glucose 101 70-99 mg/dL BUN 19 8-27 mg/dL Creatinine 1.31 0.57-1.00 mg/dL eGFR 46 >59 mL/min/1.73 BUN/Creatinine Ratio 15 05-05 Sodium 141 134-144 mmol/L Potassium 4.7 3.5-5.2 mmol/L Chloride 101 96-106 mmol/L Carbon Dioxide, Total 24 20-29 mmol/L Calcium 9.8 8.7-10.3 mg/dL Protein, Total 6.2 6.0-8.5 g/dL Albumin 4.1 3.9-4.9 g/dL Globulin, Total 2.1 1.5-4.5 g/dL Bilirubin, Total 0.2 0.0-1.2 mg/dL Alkaline Phosphatase 100 44-121 IU/L AST (SGOT) 29 0-40 IU/L ALT (SGPT) 46 0-32 IU/L Lipid [id number] Reviewed date:08/16/2024 04:22:18 PM Interpretation: Performing Lab:Airizu Moris, [address] [place] [address], Phone - [phone], Director - [facility] Notes/Report: Cholesterol, Total 132 100-199 mg/dL Triglycerides 228 0-149 mg/dL HDL Cholesterol 38 >39 mg/dL VLDL Cholesterol Timothy 37 5-40 mg/dL LDL Chol Calc (NIH) 57 0-99 mg/dL Lipid Panel-[id number] Reviewed date:08/26/2024 07:23:29 AM Interpretation: Performing Lab:Airizu Moirs, [address] [place] [address], Phone - [phone], Director - [facility] Notes/Report: Cholesterol, Total 125 100-199 mg/dL Triglycerides 203 0-149 mg/dL HDL Cholesterol 39 >39 mg/dL VLDL Cholesterol Timothy 33 5-40 mg/dL LDL Chol Calc (NIH) 53 0-99 mg/dL Lipid Panel-[id number] Reviewed date:09/03/2024 02:43:34 PM Interpretation: Performing Lab:Airizu Moris, [address] [place] [address], Phone - [phone], Director - [facility] Notes/Report: Cholesterol, Total 126 100-199 mg/dL Triglycerides 205 0-149 mg/dL HDL Cholesterol 38 >39 mg/dL VLDL Cholesterol Timothy 33 5-40 mg/dL LDL Chol Calc (NIH) 55 0-99 mg/dL Albumin/Creatinine Ratio,Uri [id number] Reviewed date:09/03/2024 02:43:41 PM Interpretation: Performing Lab:Airizu Moris [address] [place] [address], Phone - [phone], Director - [facility] Notes/Report: Creatinine, Urine 75.8 Not Estab. mg/dL Albumin, Urine 24.0 Not Estab. ug/mL Alb/Creat Ratio 32 0-29 mg/g creat Normal: 0 - 29 Moderately increased: 30 - 300 Severely increased: >300 Albumin/Creatinine Ratio,Uri [id number] Reviewed date:08/04/2024 01:31:32 PM Interpretation: Performing Lab:Airizu Moris [address] [place] [address], Phone - [phone], Director - [facility] Notes/Report: Creatinine, Urine 88.2 Not Estab. mg/dL Albumin, Urine 19.2 Not Estab. ug/mL Alb/Creat Ratio 22 0-29 mg/g creat Normal: 0 - 29 Moderately increased: 30 - 300 Severely increased: >300 Hemoglobin [id number] Reviewed date:08/04/2024 01:31:25 PM Interpretation: Performing Lab:J Carlos Subramanian, [address], [place], Phone - [phone], Director - [facility] Notes/Report: Hemoglobin A1c 7.1 4.8-5.6 % . Prediabetes: 5.7 - 6.4 Diabetes: >6.4 Glycemic control for adults with diabetes: <7.0 Reason For Referral No Information Medications Medication SIG (Take, Route, Frequency, Duration) [...] (THREE) TIMES A DAY; Duration: 30 Active clonazePAM 1 MG 2 [...] 10 days 05/31/2023 Active True Comfort Pen [place] 32G X 4 MM USE TO INJECT [...] a day; Duration: 7 days 11/05/2022 Active Rgeinivi-Betzswmpj-MD 1 % 4 drops into affected ear [...] as directed; Duration: 100 days 11/26/2024 Active metFORMIN HCl 850 mg TAKE 1 TABLET BY MOUTH two (2) times a day WITH MEALS; Duration: 30 Active Losartan Potassium 100 mg [...] TIMES A DAY; Duration: 33 Active Nystatin-Triamcinolone 947514-8.1 UNIT/GM 1 application Externally Twice a day; [...] W/U Status Risk Notes Problem Diabetic neuropathy (793002435) Diabetes mellitus due to underlying condition with diabetic neuropathy, unspecified (E08.40) Active confirmed Problem Morbid obesity (disorder) (300169904) Morbid (severe) obesity due to excess calories (E66.01) Active confirmed Problem Anxiety disorder (928474039) Anxiety disorder, unspecified (F41.9) Active confirmed Problem Essential tremor (389029227) Essential tremor (G25.0) Active confirmed Problem Insomnia (557538107) Insomnia, unspecified (G47.00) Active confirmed Problem Obstructive sleep apnea syndrome (81139398) Obstructive sleep apnea (adult) (pediatric) (G47.33) Active confirmed Problem Essential hypertensi on (85267959) Essential (primary) hypertension (I10) Active confirmed Problem Chronic kidney disea se due to hypertension (084711828181242) Hypertensive chronic kidney disease with stage 1 through stage 4 chronic kidney disease, or unspecified chronic kidney disease (I12.9) Active confirmed Problem Peripheral vascular disease (888137254) Peripheral vascular disease, unspecified (I73.9) Active confirmed Problem Embolism from thrombosis of vein of lower extremity (662455873) Chronic embolism and thrombosis of unspecified deep veins of unspecified lower extremity (I82.509) Active confirmed Problem Uncomplicated mild persistent asthma (798510996) Mild persistent asthma, uncomplicated (J45.30) Active confirmed Problem Polyp of colon (38667759) Polyp of colon (K63.5) Active confirmed Problem Acquired hammer toe of right foot (5191843719230337) Other hammer toe(s) (acquired), right foot (M20.41) Active confirmed Problem Shoulder joint pain (907150109) Pain in left shoulder (M25.512) Active confirmed Problem Lumbosacral radiculopathy (3962807) Radiculopathy, lumbosacral region (M54.17) Active confirmed Problem Dysphagia (63385226) Dysphagia, unspecified (R13.10) Active confirmed Problem Paresthesia (finding ) (68703843) Paresthesia of skin (R20.2) Active confirmed Problem Amputated below knee (985875403) Acquired absence of left leg below knee (Z89.512) Active confirmed Problem Pure hypercholesterolemia (555545605) Pure hypercholesterolem ia, unspecified (E78.00) Active confirmed Problem Chronic kidney disea se stage 3 (disorder) (949604216) Chronic kidney disease, stage 3 unspecified (N18.30) Active confirmed Problem Chronic kidney disea se stage 3A (disorder) (134869856) Chronic kidney disease, stage 3a (N18.31) Active confirmed Problem Type 2 diabetes mellitus with other specified complication, without long-term current use of insulin (E11.69) Active confirmed Problem Urinary incontinence (561444683) Urinary incontinence, unspecified type (R32) Active confirmed Problem Gastroesophageal reflux disease (992452307) Gastroesophageal reflux disease, unspecified whether esophagitis present (K21.9) Active confirmed Vital Signs Heart Rate 79 /min 01/21/2025 Temperature 96.8 degrees Fahrenheit 01/21/2025 Blood pressure diastolic 72 mm Hg 01/21/2025 Oximetry 96 % 01/21/2025 Height 62.24 in 01/21/2025 Blood pressure systolic 130 mm Hg 01/21/2025 Weight 226.0 lbs 01/21/2025 BMI 41.01 kg/m2 01/21/2025 Encounters Encounter Location Date Provider Diagnosis [address] [address] 04/18/2024 Adolfo Vilchis Diabetes mellitus du e [...] of micturition R35.0 and Epidermal cyst L72.[address] [place] [address] 05/14/2024 ELLA MICHAEL Pain in right leg M79.[address] [place] [address] 05/23/2024 JARAMILLO JAZMINL Diabetes mellitus du e to underlying condition with diabetic neuropathy, unspecified E08.40 ; Essential (primary) hypertension I10 ; Obstructive sleep apnea (adult) (pediatric) G47.33 ; Anxiety disorder, unspecified F41.9 ; Mild persistent asthma, uncomplicated J45.30 ; Chronic embolism and thrombosis of unspecified deep veins of unspecified lower extremity I82.509 and Chronic kidney disease, stage 3 unspecified N18.[address] [place] [address] 07/31/2024 JARAMILLO GUL Diabetes mellitus du e [...] Chronic kidney disease, stage 3 unspecified N18.[address] [place] [address] 09/17/2024 JARAMILLO GUL Unspecified fall, initial encounter W19.XXXA and Pain in right leg M79.[address] [place] [address] 11/26/2024 ELLA MICHAEL Annual physical exam Z00.00 [...] deep veins of unspecified lower extremity I82.[address] [place] [address] 01/21/2025 ELLA MICHAEL Diarrhea, unspecifie d R19.7 and Viral infection, unspecified B34.[address] [place] [address] 04/16/[address] [place] [address] 04/16/[address] [place] [address] 06/21/[address] [place] [address] 07/13/[address] [place] [address] 07/30/[address] [place] [address] 08/16/2024 Adolfo Vilchis [address] [place] [address] 08/16/2024 JARAMILLO GUL Pure hypercholesterolemia, unspecified E78.[address] [place] [address] 08/22/[address] [place] [address] 08/22/[address] [place] [address] 09/25/2024 JARAMILLO [facility] Acute URI J06.[address] [address] 11/08/[address] [place] [address] 11/12/[address] [address] 11/26/2024 JARAMILLO [facility] Peripheral vascular disease, unspecified I73.[address] [address] 01/17/2025 ELLA MICHAEL Assessments Encounter Date Diagnosis [...] afternoon for breakthrough pains. She follows with [facility] Dr. Iraheta. Chronic kidney disease stage 3. -She does not appear to be in volume overload. Advised appropriate hydration. Avoid NSAIDs. She sees Dr. Lakhani. Asthma. -She uses her inhalers as needed. Follows with Dr. [facility] Generalized anxiety disorder. -Mood is stable on Lorazepam 3 times a day. She has a psychiatrist and a therapist. GERD/gastroparesi s/dysphagia - Currently she is on omperazole 20m and Reglan 10 MG twice a day. I have increased omperazole to 40mg and advised patient to follow-up with her GI at [place]. She has an appt in May. MUSA: [...] hypertension, hyperlipidemia, morbid persistent asthma, generalized anxiety disorder/depressi on, chronic kidney disease stage IIIa, trigeminal neuralgia, obstructive sleep apnea, chronic pain syndrome is here for follow-up. Plan is as follows Diabetes mellitus type 2 with diabetic neuropathy. She follows up with [facility] endocrinology and according to patient her last A1c was within normal range. She is seen last repairer in the past. She follows up with upper cutter machine and kidney function is stable. Foot care discussed with the patient. Hypertension/hype rlipidemia. Blood pressure well controlled and last lipid panel was within reasonable limits Obstructive sleep apnea. Continue on CPAP machine and no daytime sleepiness. Moderate persistent asthma. She stable when she follows up with horticulture worker Anxiety/depressio n. Stable on current regimen. Considering her neuropathy she may be a good candidate for duloxetine which can be added to her regimen and she will check with her psychiatrist. Chronic kidney disease. She is stable and she follows up with upper cutter machine to avoid NSAIDs. Right lower extremity swelling. [...] hypertension, hyperlipidemia, morbid persistent asthma, generalized anxiety disorder/depressi on, chronic kidney disease stage IIIa, trigeminal neuralgia, [...] and hemoglobin A1c and follows up with [facility] endocrinology. She is seen last repairer in the past. She follows up with upper cutter machine and kidney function is stable. Foot care discussed with the patient. Hypertension/hype rlipidemia. Blood pressure well controlled and last lipid panel was within reasonable limits Obstructive sleep apnea. Continue on CPAP machine and no daytime sleepiness. Moderate persistent asthma. She stable when she follows up with horticulture worker Anxiety/depressio n. Stable on current regimen. Considering her neuropathy she may be a good candidate for duloxetine which can be added to her regimen and she will check with her psychiatrist. Chronic kidney disease. She is stable and she follows up with upper cutter machine to avoid NSAIDs. Right lower extremity swelling. It is nonpitting edema most likely lymphedema. She is on Eliquis and less likely to be a DVT and ultrasound lower extremity was negative. Vaginal candidiasis. She is given fluconazole and advised to control blood sugars 08/16/2024 Pure hypercholesterolemi a, unspecified (ICD-10 - E78.00) 09/17/2024 Unspecified fall, [...] Eliquis. She was taken to [facility] ER where she had CT scan [...] Eliquis. She was taken to [facility] ER where she had CT scan [...] disease stage IIIa and follows up with upper cutter machine is here today for annual physical. Diabetes mellitus type 2 with diabetic neuropathy. Her last hemoglobin A1c was 7.1. She is stable on the above-mentioned regimen. She follows up with loft worker apprentice. She is seeing last repairer in the past 1 year. She takes good care of her right leg and foot. She is on appropriate medications. Hypertension/hype rlipidemia. Blood pressure well controlled on current regimen [...] for GLP-1. Advised to talk to her loft worker apprentice to start the medication. EKG is normal [...] disease stage IIIa and follows up with upper cutter machine is here today for annual physical. Diabetes mellitus type 2 with diabetic neuropathy. Her last hemoglobin A1c was 7.1. She is stable on the above-mentioned regimen. She follows up with loft worker apprentice. She is seeing last repairer in the past 1 year. She takes good care of her right leg and foot. She is on appropriate medications. Hypertension/hype rlipidemia. Blood pressure well controlled on current regimen [...] for GLP-1. Advised to talk to her loft worker apprentice to start the medication. EKG is normal sinus rhythm at 88 bpm with no acute ST or T wave changes., no bundle branch blocks, normal intervals She is up to date on age specific screening. She is full code and her is her healthcare proxy 01/21/2025 Diarrhea, unspecified (ICD-10 - R19.7) Maribell is a 64-year-old lady with DM2, hypertension, hyperlipidemia, asthma, insomnia, anxiety, obstructive sleep apnea, peripheral vascular disease, DVT right lower extremity, obesity, chronic kidney disease stage IIIa and follows up with upper cutter machine is for cough, postnasal dripping, diarrhea which [...] soft diet and advance as tolerated. 01/21/2025 Viral infection, unspecified (ICD-10 - B34.9) Maribell is a 64-year-old lady with DM2, hypertension, hyperlipidemia, asthma, insomnia, anxiety, obstructive sleep apnea, peripheral vascular disease, DVT right lower extremity, obesity, chronic kidney disease stage IIIa and follows up with upper cutter machine is for cough, postnasal dripping, diarrhea which [...] hydrated, soft diet and advance as tolerated. 11/26/2024 Peripheral vascular disease, unspecified (ICD-10 - I73.9) 11/26/2024 Diabetes mellitus due to underlying condition with diabetic neuropathy, unspecified (ICD-10 - E08.40) Maribell is a 64-year-old lady with DM2, hypertension, hyperlipidemia, asthma, insomnia, anxiety, obstructive sleep apnea, peripheral vascular disease, DVT right lower extremity, obesity, chronic kidney disease stage IIIa and follows up with upper cutter machine is here today for annual physical. Diabetes mellitus type 2 with diabetic neuropathy. Her last hemoglobin A1c was 7.1. She is stable on the above-mentioned regimen. She follows up with loft worker apprentice. She is seeing last repairer in the past 1 year. She takes good care of her right leg and foot. She is on appropriate medications. Hypertension/hype rlipidemia. Blood pressure well controlled on current regimen [...] for GLP-1. Advised to talk to her loft worker apprentice to start the medication. EKG is normal sinus rhythm at 88 bpm with no acute ST or T wave changes., no bundle branch blocks, normal intervals She is up to date on age specific screening. She is full code and her is her healthcare proxy 07/31/2024 Essential (primary) hypertension (ICD-10 - I10) Maribell is 63 years old lady with DM type II, hypertension, hyperlipidemia, morbid persistent asthma, generalized anxiety disorder/depressi on, chronic kidney disease stage IIIa, trigeminal neuralgia, [...] and hemoglobin A1c and follows up with [facility] endocrinology. She is seen last repairer in the past. She follows up with upper cutter machine and kidney function is stable. Foot care discussed with the patient. Hypertension/hype rlipidemia. Blood pressure well controlled and last lipid panel was within reasonable limits Obstructive sleep apnea. Continue on CPAP machine and no daytime sleepiness. Moderate persistent asthma. She stable when she follows up with horticulture worker Anxiety/depressio n. Stable on current regimen. Considering her neuropathy she may be a good candidate for duloxetine which can be added to her regimen and she will check with her psychiatrist. Chronic kidney disease. She is stable and she follows up with upper cutter machine to avoid NSAIDs. Right lower extremity swelling. [...] hypertension, hyperlipidemia, morbid persistent asthma, generalized anxiety disorder/depressi on, chronic kidney disease stage IIIa, trigeminal neuralgia, [...] and hemoglobin A1c and follows up with [facility] end[facility]. She is seen last repairer in the past. She follows up with upper cutter machine and kidney function is stable. Foot care discussed with the patient. Hypertension/hype rlipidemia. Blood pressure well controlled and last lipid panel was within reasonable limits Obstructive sleep apnea. Continue on CPAP machine and no daytime sleepiness. Moderate persistent asthma. She stable when she follows up with horticulture worker Anxiety/depresskevin n. Stable on current regimen. Considering her neuropathy she may be a good candidate for duloxetine which can be added to her regimen and she will check with her psychiatrist. Chronic kidney disease. She is stable and she follows up with upper cutter machine to avoid NSAIDs. Right lower extremity swelling. [...] hypertension, hyperlipidemia, morbid persistent asthma, generalized anxiety disorder/depressi on, chronic kidney disease stage IIIa, trigeminal neuralgia, obstructive sleep apnea, chronic pain syndrome is here for follow-up. Plan is as follows Diabetes mellitus type 2 with diabetic neuropathy. She follows up with [facility] end[facility] and according to patient her last A1c was within normal range. She is seen last repairer in the past. She follows up with upper cutter machine and kidney function is stable. Foot care discussed with the patient. Hypertension/hype rlipidemia. Blood pressure well controlled and last lipid panel was within reasonable limits Obstructive sleep apnea. Continue on CPAP machine and no daytime sleepiness. Moderate persistent asthma. She stable when she follows up with horticulture worker Anxiety/depressio n. Stable on current regimen. Considering her neuropathy she may be a good candidate for duloxetine which can be added to her regimen and she will check with her psychiatrist. Chronic kidney disease. She is stable and she follows up with upper cutter machine to avoid NSAIDs. Right lower extremity swelling. [...] afternoon for breakthrough pains. She follows with [facility] Dr. Iraheta. Chronic kidney disease stage 3. -She does not appear to be in volume overload. Advised appropriate hydration. Avoid NSAIDs. She sees Dr. Lakhani. Asthma. -She uses her inhalers as needed. Follows with Dr. [facility] Generalized anxiety disorder. -Mood is stable on Lorazepam 3 times a day. She has a psychiatrist and a therapist. GERD/gastroparesi s/dysphagia - Currently she is on omperazole 20m and Reglan 10 MG twice a day. I have increased omperazole to 40mg and advised patient to follow-up with her GI at [place]. She has an appt in May. MUSA: [...] hypertension, hyperlipidemia, morbid persistent asthma, generalized anxiety disorder/depressi on, chronic kidney disease stage IIIa, trigeminal neuralgia, obstructive sleep apnea, chronic pain syndrome is here for follow-up. Plan is as follows Diabetes mellitus type 2 with diabetic neuropathy. She follows up with [facility] end[facility] and according to patient her last A1c was within normal range. She is seen last repairer in the past. She follows up with upper cutter machine and kidney function is stable. Foot care discussed with the patient. Hypertension/hype rlipidemia. Blood pressure well controlled and last lipid panel was within reasonable limits Obstructive sleep apnea. Continue on CPAP machine and no daytime sleepiness. Moderate persistent asthma. She stable when she follows up with horticulture worker Anxiety/depressio n. Stable on current regimen. Considering her neuropathy she may be a good candidate for duloxetine which can be added to her regimen and she will check with her psychiatrist. Chronic kidney disease. She is stable and she follows up with upper cutter machine to avoid NSAIDs. Right lower extremity swelling. [...] afternoon for breakthrough pains. She follows with [facility] Dr. Iraheta. Chronic kidney disease stage 3. -She does not appear to be in volume overload. Advised appropriate hydration. Avoid NSAIDs. She sees Dr. Lakhani. Asthma. -She uses her inhalers as needed. Follows with Dr. [facility] Generalized anxiety disorder. -Mood is stable on Lorazepam 3 times a day. She has a psychiatrist and a therapist. GERD/gastroparesi s/dysphagia - Currently she is on omperazole 20m and Reglan 10 MG twice a day. I have increased omperazole to 40mg and advised patient to follow-up with her GI at [place]. She has an appt in May. MUSA: [...] sleep apnea (adult) (pediatric) (ICD-10 - G47.33) Mariebll is 63 years old lady with DM type II, hypertension, hyperlipidemia, morbid persistent asthma, generalized anxiety disorder/depressi on, chronic kidney disease stage IIIa, trigeminal neuralgia, [...] and hemoglobin A1c and follows up with [facility] endocrinology. She is seen last repairer in the past. She follows up with upper cutter machine and kidney function is stable. Foot care discussed with the patient. Hypertension/hype rlipidemia. Blood pressure well controlled and last lipid panel was within reasonable limits Obstructive sleep apnea. Continue on CPAP machine and no daytime sleepiness. Moderate persistent asthma. She stable when she follows up with horticulture worker Anxiety/depressio n. Stable on current regimen. Considering her neuropathy she may be a good candidate for duloxetine which can be added to her regimen and she will check with her psychiatrist. Chronic kidney disease. She is stable and she follows up with upper cutter machine to avoid NSAIDs. Right lower extremity swelling. [...] disease stage IIIa and follows up with upper cutter machine is here today for annual physical. Diabetes mellitus type 2 with diabetic neuropathy. Her last hemoglobin A1c was 7.1. She is stable on the above-mentioned regimen. She follows up with loft worker apprentice. She is seeing last repairer in the past 1 year. She takes good care of her right leg and foot. She is on appropriate medications. Hypertension/hype rlipidemia. Blood pressure well controlled on current regimen [...] for GLP-1. Advised to talk to her loft worker apprentice to start the medication. EKG is normal [...] disease stage IIIa and follows up with upper cutter machine is here today for annual physical. Diabetes mellitus type 2 with diabetic neuropathy. Her last hemoglobin A1c was 7.1. She is stable on the above-mentioned regimen. She follows up with loft worker apprentice. She is seeing last repairer in the past 1 year. She takes good care of her right leg and foot. She is on appropriate medications. Hypertension/hype rlipidemia. Blood pressure well controlled on current regimen [...] for GLP-1. Advised to talk to her loft worker apprentice to start the medication. EKG is normal [...] hypertension, hyperlipidemia, morbid persistent asthma, generalized anxiety disorder/depressi on, chronic kidney disease stage IIIa, trigeminal neuralgia, [...] and hemoglobin A1c and follows up with [facility] endocrinology. She is seen last repairer in the past. She follows up with upper cutter machine and kidney function is stable. Foot care discussed with the patient. Hypertension/hype rlipidemia. Blood pressure well controlled and last lipid panel was within reasonable limits Obstructive sleep apnea. Continue on CPAP machine and no daytime sleepiness. Moderate persistent asthma. She stable when she follows up with horticulture worker Anxiety/depressio n. Stable on current regimen. Considering her neuropathy she may be a good candidate for duloxetine which can be added to her regimen and she will check with her psychiatrist. Chronic kidney disease. She is stable and she follows up with upper cutter machine to avoid NSAIDs. Right lower extremity swelling. [...] afternoon for breakthrough pains. She follows with [facility] Dr. Iraheta. Chronic kidney disease stage 3. -She does not appear to be in volume overload. Advised appropriate hydration. Avoid NSAIDs. She sees Dr. Lakhani. Asthma. -She uses her inhalers as needed. Follows with Dr. [facility]ley[facility] Generalized anxiety disorder. -Mood is stable on Lorazepam 3 times a day. She has a psychiatrist and a therapist. GERD/gastroparesi s/dysphagia - Currently she is on omperazole 20m and Reglan 10 MG twice a day. I have increased omperazole to 40mg and advised patient to follow-up with her GI at [place]. She has an appt in May. MUSA: [...] hypertension, hyperlipidemia, morbid persistent asthma, generalized anxiety disorder/depressi on, chronic kidney disease stage IIIa, trigeminal neuralgia, obstructive sleep apnea, chronic pain syndrome is here for follow-up. Plan is as follows Diabetes mellitus type 2 with diabetic neuropathy. She follows up with [facility] endocr[facility]ology and according to patient her last A1c was within normal range. She is seen last repairer in the past. She follows up with upper cutter machine and kidney function is stable. Foot care discussed with the patient. Hypertension/hype rlipidemia. Blood pressure well controlled and last lipid panel was within reasonable limits Obstructive sleep apnea. Continue on CPAP machine and no daytime sleepiness. Moderate persistent asthma. She stable when she follows up with horticulture worker Anxiety/depressio n. Stable on current regimen. Considering her neuropathy she may be a good candidate for duloxetine which can be added to her regimen and she will check with her psychiatrist. Chronic kidney disease. She is stable and she follows up with upper cutter machine to avoid NSAIDs. Right lower extremity swelling. [...] afternoon for breakthrough pains. She follows with [facility] Dr. Iraheta. Chronic kidney disease stage 3. -She does not appear to be in volume overload. Advised appropriate hydration. Avoid NSAIDs. She sees Dr. Lakhani. Asthma. -She uses her inhalers as needed. Follows with Dr. [facility]ley[facility] Generalized anxiety disorder. -Mood is stable on Lorazepam 3 times a day. She has a psychiatrist and a therapist. GERD/gastroparesi s/dysphagia - Currently she is on omperazole 20m and Reglan 10 MG twice a day. I have increased omperazole to 40mg and advised patient to follow-up with her GI at [place]. She has an appt in May. MUSA: [...] hypertension, hyperlipidemia, morbid persistent asthma, generalized anxiety disorder/depressi on, chronic kidney disease stage IIIa, trigeminal neuralgia, obstructive sleep apnea, chronic pain syndrome is here for follow-up. Plan is as follows Diabetes mellitus type 2 with diabetic neuropathy. She follows up with [facility] end[facility] and according to patient her last A1c was within normal range. She is seen last repairer in the past. She follows up with upper cutter machine and kidney function is stable. Foot care discussed with the patient. Hypertension/hype rlipidemia. Blood pressure well controlled and last lipid panel was within reasonable limits Obstructive sleep apnea. Continue on CPAP machine and no daytime sleepiness. Moderate persistent asthma. She stable when she follows up with horticulture worker Anxiety/depressio n. Stable on current regimen. Considering her neuropathy she may be a good candidate for duloxetine which can be added to her regimen and she will check with her psychiatrist. Chronic kidney disease. She is stable and she follows up with upper cutter machine to avoid NSAIDs. Right lower extremity swelling. [...] hypertension, hyperlipidemia, morbid persistent asthma, generalized anxiety disorder/depressi on, chronic kidney disease stage IIIa, trigeminal neuralgia, [...] and hemoglobin A1c and follows up with [facility] end[facility]. She is seen last repairer in the past. She follows up with upper cutter machine and kidney function is stable. Foot care discussed with the patient. Hypertension/hype rlipidemia. Blood pressure well controlled and last lipid panel was within reasonable limits Obstructive sleep apnea. Continue on CPAP machine and no daytime sleepiness. Moderate persistent asthma. She stable when she follows up with horticulture worker Anxiety/depressio n. Stable on current regimen. Considering her neuropathy she may be a good candidate for duloxetine which can be added to her regimen and she will check with her psychiatrist. Chronic kidney disease. She is stable and she follows up with upper cutter machine to avoid NSAIDs. Right lower extremity swelling. [...] disease stage IIIa and follows up with upper cutter machine is here today for annual physical. Diabetes mellitus type 2 with diabetic neuropathy. Her last hemoglobin A1c was 7.1. She is stable on the above-mentioned regimen. She follows up with loft worker apprentice. She is seeing last repairer in the past 1 year. She takes good care of her right leg and foot. She is on appropriate medications. Hypertension/hype rlipidemia. Blood pressure well controlled on current regimen [...] for GLP-1. Advised to talk to her loft worker apprentice to start the medication. EKG is normal [...] disease stage IIIa and follows up with upper cutter machine is here today for annual physical. Diabetes mellitus type 2 with diabetic neuropathy. Her last hemoglobin A1c was 7.1. She is stable on the above-mentioned regimen. She follows up with loft worker apprentice. She is seeing last repairer in the past 1 year. She takes good care of her right leg and foot. She is on appropriate medications. Hypertension/hype rlipidemia. Blood pressure well controlled on current regimen [...] for GLP-1. Advised to talk to her loft worker apprentice to start the medication. EKG is normal [...] hypertension, hyperlipidemia, morbid persistent asthma, generalized anxiety disorder/depressi on, chronic kidney disease stage IIIa, trigeminal neuralgia, [...] and hemoglobin A1c and follows up with [facility] end[facility]. She is seen last repairer in the past. She follows up with upper cutter machine and kidney function is stable. Foot care discussed with the patient. Hypertension/hype rlipidemia. Blood pressure well controlled and last lipid panel was within reasonable limits Obstructive sleep apnea. Continue on CPAP machine and no daytime sleepiness. Moderate persistent asthma. She stable when she follows up with horticulture worker Anxiety/depressio n. Stable on current regimen. Considering her neuropathy she may be a good candidate for duloxetine which can be added to her regimen and she will check with her psychiatrist. Chronic kidney disease. She is stable and she follows up with upper cutter machine to avoid NSAIDs. Right lower extremity swelling. [...] afternoon for breakthrough pains. She follows with [facility] Dr. Iraheta. Chronic kidney disease stage 3. -She does not appear to be in volume overload. Advised appropriate hydration. Avoid NSAIDs. She sees Dr. Lakhani. Asthma. -She uses her inhalers as needed. Follows with Dr. [facility]ley[facility] Generalized anxiety disorder. -Mood is stable on Lorazepam 3 times a day. She has a psychiatrist and a therapist. GERD/gastroparesi s/dysphagia - Currently she is on omperazole 20m and Reglan 10 MG twice a day. I have increased omperazole to 40mg and advised patient to follow-up with her GI at [facility]. She has an appt in May. MUSA: [...] hypertension, hyperlipidemia, morbid persistent asthma, generalized anxiety disorder/depressi on, chronic kidney disease stage IIIa, trigeminal neuralgia, obstructive sleep apnea, chronic pain syndrome is here for follow-up. Plan is as follows Diabetes mellitus type 2 with diabetic neuropathy. She follows up with [facility] end[facility] and according to patient her last A1c was within normal range. She is seen last repairer in the past. She follows up with upper cutter machine and kidney function is stable. Foot care discussed with the patient. Hypertension/hype rlipidemia. Blood pressure well controlled and last lipid panel was within reasonable limits Obstructive sleep apnea. Continue on CPAP machine and no daytime sleepiness. Moderate persistent asthma. She stable when she follows up with horticulture worker Anxiety/depressio n. Stable on current regimen. Considering her neuropathy she may be a good candidate for duloxetine which can be added to her regimen and she will check with her psychiatrist. Chronic kidney disease. She is stable and she follows up with upper cutter machine to avoid NSAIDs. Right lower extremity swelling. [...] afternoon for breakthrough pains. She follows with [facility] Dr. Iraheta. Chronic kidney disease stage 3. -She does not appear to be in volume overload. Advised appropriate hydration. Avoid NSAIDs. She sees Dr. Lakhani. Asthma. -She uses her inhalers as needed. Follows with Dr. [facility]ley[facility] Generalized anxiety disorder. -Mood is stable on Lorazepam 3 times a day. She has a psychiatrist and a therapist. GERD/gastroparesi s/dysphagia - Currently she is on omperazole 20m and Reglan 10 MG twice a day. I have increased omperazole to 40mg and advised patient to follow-up with her GI at [place]. She has an appt in May. MUSA: [...] hypertension, hyperlipidemia, morbid persistent asthma, generalized anxiety disorder/depressi on, chronic kidney disease stage IIIa, trigeminal neuralgia, obstructive sleep apnea, chronic pain syndrome is here for follow-up. Plan is as follows Diabetes mellitus type 2 with diabetic neuropathy. She follows up with [facility] end[facility] and according to patient her last A1c was within normal range. She is seen last repairer in the past. She follows up with upper cutter machine and kidney function is stable. Foot care discussed with the patient. Hypertension/hype rlipidemia. Blood pressure well controlled and last lipid panel was within reasonable limits Obstructive sleep apnea. Continue on CPAP machine and no daytime sleepiness. Moderate persistent asthma. She stable when she follows up with horticulture worker Anxiety/depressio n. Stable on current regimen. Considering her neuropathy she may be a good candidate for duloxetine which can be added to her regimen and she will check with her psychiatrist. Chronic kidney disease. She is stable and she follows up with upper cutter machine to avoid NSAIDs. Right lower extremity swelling. [...] hypertension, hyperlipidemia, morbid persistent asthma, generalized anxiety disorder/depressi on, chronic kidney disease stage IIIa, trigeminal neuralgia, [...] and hemoglobin A1c and follows up with [facility] end[facility]. She is seen last repairer in the past. She follows up with upper cutter machine and kidney function is stable. Foot care discussed with the patient. Hypertension/hype rlipidemia. Blood pressure well controlled and last lipid panel was within reasonable limits Obstructive sleep apnea. Continue on CPAP machine and no daytime sleepiness. Moderate persistent asthma. She stable when she follows up with horticulture worker Anxiety/depressio n. Stable on current regimen. Considering her neuropathy she may be a good candidate for duloxetine which can be added to her regimen and she will check with her psychiatrist. Chronic kidney disease. She is stable and she follows up with upper cutter machine to avoid NSAIDs. Right lower extremity swelling. [...] disease stage IIIa and follows up with upper cutter machine is here today for annual physical. Diabetes mellitus type 2 with diabetic neuropathy. Her last hemoglobin A1c was 7.1. She is stable on the above-mentioned regimen. She follows up with loft worker apprentice. She is seeing last repairer in the past 1 year. She takes good care of her right leg and foot. She is on appropriate medications. Hypertension/hype rlipidemia. Blood pressure well controlled on current regimen [...] for GLP-1. Advised to talk to her loft worker apprentice to start the medication. EKG is normal [...] disease stage IIIa and follows up with upper cutter machine is here today for annual physical. Diabetes mellitus type 2 with diabetic neuropathy. Her last hemoglobin A1c was 7.1. She is stable on the above-mentioned regimen. She follows up with loft worker apprentice. She is seeing last repairer in the past 1 year. She takes good care of her right leg and foot. She is on appropriate medications. Hypertension/hype rlipidemia. Blood pressure well controlled on current regimen [...] for GLP-1. Advised to talk to her loft worker apprentice to start the medication. EKG is normal [...] afternoon for breakthrough pains. She follows with [facility] Dr. Iraheta. Chronic kidney disease stage 3. -She does not appear to be in volume overload. Advised appropriate hydration. Avoid NSAIDs. She sees Dr. Lakhani. Asthma. -She uses her inhalers as needed. Follows with Dr. [facility]ley[facility] Generalized anxiety disorder. -Mood is stable on Lorazepam 3 times a day. She has a psychiatrist and a therapist. GERD/gastroparesi s/dysphagia - Currently she is on omperazole 20m and Reglan 10 MG twice a day. I have increased omperazole to 40mg and advised patient to follow-up with her GI at [place]. She has an appt in May. MUSA: [...] afternoon for breakthrough pains. She follows with [facility] Dr. Iraheta. Chronic kidney disease stage 3. -She does not appear to be in volume overload. Advised appropriate hydration. Avoid NSAIDs. She sees Dr. Lakhani. Asthma. -She uses her inhalers as needed. Follows with Dr. Shipley[facility] Generalized anxiety disorder. -Mood is stable on Lorazepam 3 times a day. She has a psychiatrist and a therapist. GERD/gastroparesi s/dysphagia - Currently she is on omperazole 20m and Reglan 10 MG twice a day. I have increased omperazole to 40mg and advised patient to follow-up with her GI at [place]. She has an appt in May. MUSA: [...] afternoon for breakthrough pains. She follows with [facility] Dr. Iraheta. Chronic kidney disease stage 3. -She does not appear to be in volume overload. Advised appropriate hydration. Avoid NSAIDs. She sees Dr. Lakhani. Asthma. -She uses her inhalers as needed. Follows with Dr. [facility]ley[facility] Generalized anxiety disorder. -Mood is stable on Lorazepam 3 times a day. She has a psychiatrist and a therapist. GERD/gastroparesi s/dysphagia - Currently she is on omperazole 20m and Reglan 10 MG twice a day. I have increased omperazole to 40mg and advised patient to follow-up with her GI at [place]. She has an appt in May. MUSA: [...] afternoon for breakthrough pains. She follows with [facility] Dr. Iraheta. Chronic kidney disease stage 3. -She does not appear to be in volume overload. Advised appropriate hydration. Avoid NSAIDs. She sees Dr. Lakhani. Asthma. -She uses her inhalers as needed. Follows with Dr. Shipley-[facility] Generalized anxiety disorder. -Mood is stable on Lorazepam 3 times a day. She has a psychiatrist and a therapist. GERD/gastroparesi s/dysphagia - Currently she is on omperazole 20m and Reglan 10 MG twice a day. I have increased omperazole to 40mg and advised patient to follow-up with her GI at [place]. She has an appt in May. MUSA: [...] afternoon for breakthrough pains. She follows with [facility] Dr. Iraheta. Chronic kidney disease stage 3. -She does not appear to be in volume overload. Advised appropriate hydration. Avoid NSAIDs. She sees Dr. Lakhani. Asthma. -She uses her inhalers as needed. Follows with Dr. Shipley[facility] Generalized anxiety disorder. -Mood is stable on Lorazepam 3 times a day. She has a psychiatrist and a therapist. GERD/gastroparesi s/dysphagia - Currently she is on omperazole 20m and Reglan 10 MG twice a day. I have increased omperazole to 40mg and advised patient to follow-up with her GI at [place]. She has an appt in May. MUSA: [...] afternoon for breakthrough pains. She follows with [facility] Dr. Iraheta. Chronic kidney disease stage 3. -She does not appear to be in volume overload. Advised appropriate hydration. Avoid NSAIDs. She sees Dr. Lakhani. Asthma. -She uses her inhalers as needed. Follows with Dr. [facility] Generalized anxiety disorder. -Mood is stable on Lorazepam 3 times a day. She has a psychiatrist and a therapist. GERD/gastroparesi s/dysphagia - Currently she is on omperazole 20m and Reglan 10 MG twice a day. I have increased omperazole to 40mg and advised patient to follow-up with her GI at [place]. She has an appt in May. MUSA: [...] Provider Name:ELLA MICHAEL , 05/29/2025 10:30:00 AM, [address] [place] [address], [id number], Insurance Providers Payer Name Payer Address Payer Phone Subscriber Number Group Number Insured Name Patient Relationship to Insured Coverage Start Date Coverage End Date [facility] [address] [place] [phone] [id number] Maribell Taylor Self - patient is the insured Medical (General) History Medical History History ICD Code hypertension, benign hyperlipidemia IDDM T 2, [facility] end[facility] Urinary incontinence and she sees Dr. England at [facility] Left shoulder pain and she sees Dr. Alida villa and she is also seen Dr. Diaz Asthma and she sees Pul at [facility] Generalized anxiety disorder and she is seen by a psychiatrist and she goes to [facility] Pain management and has seen Dr. Montiel at [facility] in past Peripheral arterial disease and status post amputation below knee joint currently on Coumadin and goes to Coumadin clinic Lumbar radiculopathy on oxycodone 30 mg 3 times a day DVT leg LE sleep apnea see Pul at [facility] Left leg amputation below knee joint Chronic kidney disease stage 3, Dr. Janis smalls Personal history of COVID-19 [facility] Surgical History Surgery Date(Month/Year) rotator cuff tear repair September 2017 wrist surgery below the knee amputation 07 left side for Blood clots 2/2 to OCP and pt was smoking rt toes amputation 2004 right wrist synovial cyst resection, Dr. Henriquez 2021 right carpal tunnel decompression, Dr. Flores [facility] 2021 Hospitalization History Reason Date(Month/Year)
--- OUTSIDE RECORDS SUMMARY | 2025-03-12 16:14 | XMS_ITS | Data Portability ---
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 Referral None recorded . Procedures None recorded . Surgeries None recorded . Imaging MRI, brain, w/wo contrast - prefers [facility] eld 2023 024 david [facility] ([facility]), [address], [place], [address], 01/03/2024 14:20:34 Medication Orders clotrima zole-bet amethaso ne 1 %-0.05 % topical cream [address] [facility] [place], [place] - [phone], [address] [facility], [place], [address], 02/29/2024 15:08:30 Patient TargetsNo targets recorded. Patient InstructionsNo instructions recorded. Reason for Referral None Reported. Results Created Date Observation Date Name Description Value Unit Range Abnormal Flag Note LastModifiedBy Organization Detail LastModifiedTime 12/13/19 24 12/12/2023 MRI, brain + brain stem, w/wo contr ast [facility] Access ion Number : [id number] Patien t Name: Patel, Maribell Meadowsa l Record Number : [id number] Date of : 1960 Date of Exam: 2023 Referr ing Physic kellen: Duran Estes [facility] [address] [place] [address] Exam: MR Brain (C-/C+ ) CPT 52276 Room Descri ption: [facility] 3.0T MR Brain (C-/C+ ) CPT 23205 INDICA TION / CLIN[facility] ON: [...] onical ly Signed By: Abdulaziz Parmar MD [facility] ([facility]) [address], [place], [address], 12/31/2023 04:57:08 12/28/19 24 07/18/2023 imagi ng/di [...] observ ation record ed. [facility] ([facility]) [address] [address], [place], [address], 06/14/2024 10:19:22 06/20/19 25 05/30/2024 MRI, cervi elina spine , w/o contr ast No observ ation record ed. [email or web address] Not Available 2024 16:10:50 09/18/19 25 09/13/2024 audio gram No observ ation record ed. [email or web address] Not Available 2024 11:25:21 Result Notes Documentation Provider Name and Address Organization Details Recorded Time Mri, Brain + Brain Stem, W/wo Contrast : [facility] Accession Number: [id number] Patient Name: Maribell Sweeney Date of : 1960 Date of Exam: 12-12-2023 Referring Physician: Duran [facility] [address] [address] Exam: MR Brain (C-/C+) CPT 35699 Room Description: [facility] 3.0T MR Brain (C-/C+) CPT 87642 INDICATION / CLINICAL QUESTION: Trigeminal neuralgia TECHNIQUE: [...] disease. Electronically Signed By: Kaleigh NELSON MD [address] [place] [address], [phone], [facility] - [facility] 12/31/2023 04:57:08 Problems Name Problem SNOMED Code Status Onset Date Resolution Date Notes Provider Name and Address Organization Details Recorded Time Dysphagia 49612092 Active 2017 Dysphagia , unspecifi ed; Note: Date Diagnosed : 10/26/2017 3:35 PM (R13.10) Not Available [facility] 4 02:15:17 Gastroeso phageal reflux disease without esophagit is 667501230 Active 2017 Gastro-es ophageal reflux disease without esophagit is; Note: Date Diagnosed : 10/26/2017 3:36 PM (K21.9) Not Available [facility] 4 02:13:57 Disorder of nasal sinus 7188439 Active 2019 Unspecifi ed disorder of nose and nasal sinuses; Note: Date Diagnosed : 12/11/2019 7:07 PM (J34.9) Not Available [facility] 4 02:14:50 Disorder of the nose 85898393 Active 2019 Unspecifi ed disorder of nose and nasal sinuses; Note: Date Diagnosed : 12/11/2019 7:07 PM (J34.9) Not Available [facility] 4 02:14:50 Acute maxillary sinusitis 13852149 Active 2019 Acute maxillary sinusitis , unspecifi ed; Note: Date Diagnosed : 12/11/2019 7:07 PM (J01.00) Not Available [facility] 4 02:13:26 Itching of skin 568104390 Active 2019 Pruritus, unspecifi ed; Note: Date Diagnosed : 12/17/2019 9:41 AM (L29.9) Not Available [facility] 4 02:15:04 Diffuse otitis externa 87669706 Active 2020 Diffuse otitis externa, left ear; Note: Date Diagnosed : 07/17/2020 5:26 PM (H60.312) Note: Date Diagnosed : 07/17/2020 5:26 PM (H60.312) Not Available [facility] 4 00:49:08 Sensorine ural hearing loss 54321129 Active 2020 Sensorine ural hearing loss, unilatera l, left ear, with unrestric trisha hearing on the contralat eral side; Note: Date Diagnosed : 08/04/2020 11:03 AM (H90.42) Not Available [facility] 4 02:14:29 Otalgia of left ear 1184807926 Active 2020 Otalgia, left ear; Note: Date Diagnosed : 04/08/2021 3:18 PM (H92.02) Not Available [facility] 4 02:15:47 Pain of left temporoma ndibular joint 81281340493 863039 Active 2020 Arthralgi a of left temporoma ndibular joint; Note: Date Diagnosed : 04/08/2021 3:18 PM (M26.622) Not Available [facility] 4 02:15:35 Tinnitus of left ear 74465264893 06 Active 2020 Tinnitus, left ear; Note: Date Diagnosed : 04/08/2021 3:18 PM (H93.12) Not Available [facility] 4 02:13:36 Type 2 diabetes mellitus without complicat ion 882648582 Active 2023 Type 2 diabetes mellitus without complicat ions; Note: Date Diagnosed : 06/13/2023 1:31 PM (E11.9) Not Available [facility] 4 02:15:17 Localized masticato ry muscle soreness 362417346 Active 2023 Myalgia of masticati on muscle; Note: Date Diagnosed : 07/26/2023 2:53 PM (M79.11) Not Available [facility] 4 02:15:11 Trigemina l neuralgia 67855086 Active 2023 DURAN NELSON MD [address] [place] [address], [facility] [place], [address] , [facility] - [facility] 4 18:40:58 Abnormal auditory perceptio n 16050461 Active 2024 LEXIS MONET, AuD [address] [facility],[address] [address], [place], [address] , [facility] 15:01:40 Problem Notes None recorded. Procedures Surgical History Date Name Laterality Status Provider Name and Address Organization Details Recorded Time 09/13/2024 Air & Speech Audio with Tymps - 72048, 33529 & 24499 completed LEXIS MONET, AuD [address] [facility] [address], [place], [address], [facility] 09/13/2024 15:01:28 Imaging Results None recorded. Procedure Notes None recorded. Medical Equipment None Reported. Allergies Allergen ID Allergen Name Allergen Category Reaction Reaction Severity Criticality Documentation Date Start Date Code Code System Note Provider Name and Address Organization Details Recorded Time 63299 aspirin medicatio n other Not available Not available 09/20/2023 1191 RxNorm React ion: unkno wn, unspe cifie d;; Not Available [facility] 4 00:49:02 34986 acetamino phen / oxycodone medicatio n other Not available Not available 09/20/2023 41253 3 RxNorm React ion: unkno wn, unspe cifie d;; Not Available [facility] 4 00:49:48 19054 naproxen medicatio n other Not available Not available 09/20/2023 7258 RxNorm React ion: unkno wn, unspe cifie d;; Not Available [facility] 4 00:49:48 Medications Name Sig [...] a day 06/14 completed Medicati on ID: 636887 D uration Value: 10 Brand Name: ciproflo [...] mg tablet 2017 active Medicati on ID: 570155 D uration Value: 30 Brand Name: cyprohep [...] topical solution 01/11 completed Medicati on ID: 848530 D uration Value: 14 Prescri bed By [...] small amount 2020 active Medicati on ID: 802107 D uration Value: 7 Prescri bed By [...] drops,randy pension 01/11 completed Medicati on ID: 863584 P rescribe d By Name: AZUCENA Andrade [...] 5 drop 2020 active Medicati on ID: 921419 D uration Value: 30 Prescri bed By [...] by mouth 10/19 completed Medicati on ID: 997106 D uration Value: 30 Prescri bed By Name: Paula Leon VINAY Kruger nd Name: omeprazo le Send Method: E-Prescr ibed Sub s Allowed: subs OK Speci al Instruct ion: Take 1 tablet by mouth every day before a meal Med icationG enericNa me: omeprazo le Medic ation ID: [id number] D uration Value: 30 Prescri bed By [...] Available No t Available Comfort EZ Pen [place] 32 gauge x 5/32 USE TO INJECT [...] both nostrils 2019 active Medicati on ID: 677782 D uration Value: 30 Prescri bed By [...] Available No t Available FreeStyle Antonio 2 Enders USE DIRECTED active Not Available Not Available No t Available Trulicity 4.5 mg/0.5 mL subcutane ous pen injector INJECT THE CONTENT OF 1 pen SUBCUTAN EOUSLY EVERY WEEK. USE ON THE same DAY EVERY WEEK. rotate injectio n [facility] 10/19 completed Not Available Not Available Not [...] Updated DateTime 06/14/2024 157.48 cm 36.9 kg/m2 38603.66 g Nyla Rowland [place] - [facility] 06/14/2024 09:18:50 Date Recorded Body height Body mass index (BMI) Body weight Provider Name and Address Organization Details Last Updated DateTime 10/20/2023 157.48 cm 38.2 kg/m2 46734.81 g Nyla Rowland [place] - [facility] 10/20/2023 13:21:31 Date Recorded Body height Body mass index (BMI) Body weight Provider Name and Address Organization Details Last Updated DateTime 12/27/2023 157.48 cm 35.5 kg/m2 71475.92 g Nyla Janett [facility] 12/27/2023 13:07:29 Date Recorded Body height Body mass index (BMI) Body weight Provider Name and Address Organization Details Last Updated DateTime 01/12/2024 157.48 cm 35.5 kg/m2 24140.92 g Nyla Janett [facility] 01/12/2024 13:05:16 Social History None recorded. Functional Status None recorded. Mental Status None recorded. Family History Nothing Reported. Medical History No medical history recorded. Gynecological HistoryNo gynecological history recorded. Obstetrics History GPAL:G 0 P 0 0 0 0 Past Encounters Encounter ID Performer Location Encounter Start Date Encounter Closed Date Diagnosis/Indication Diagnosis SNOMED-CT Code Diagnosis ICD10 Code Diagnosis IMO Codes Diagnosis Note [id number] DURAN NELSON MD [facility] on [address] [place] [address] 10/20/2023 13:04:44 10/20/2023 14:59:17 Otalgia of left ear 5890665502 H92.02 63 yo F presents for follow up of her left ear. She is here for scheduled cerumen removal, but she is concerned about persistent pain. She was seen in [place] at the end of January and had [...] of her neurology visit. Trigeminal neuralgia 316 81310 G50.0 [id number] DURAN NELSON MD [facility] on [address] [place] [address] 12/27/2023 13:00:52 12/27/2023 13:42:13 Diffuse otitis externa 12002679 H60.312 Otalgia of left ear 1010 444094 H92.02 63 yo F presents for follow up of her left ear. She is here for scheduled cerumen removal, but she is concerned about persistent pain. She was seen in [place] at the end of January and had [...] Lotrisone into the canal. Follow-up 2 weeks. [id number] DURAN NELSON MD [facility] on [address] [place] [phone] 01/12/2024 12:56:02 01/12/2024 14:21:07 Otalgia of left ear 1032608207 H92.02 63 yo F presents for follow up of her left ear. Lotrisone is gone. No infection. Middle ear aerated. she can continue the vinegar drops for maintenanc e as lotrisone sparingly to the EAC meatus. Follow up three months for reassessme nt and cleaning. [id number] DURAN NELSON MD [facility] on [address] [place] [phone] 06/14/2024 09:03:19 06/14/2024 09:30:18 Otalgia of left ear 4892672758 H92.02 63 yo F presents for follow up of her left ear. No infection. Middle ear aerated. she can continue the vinegar drops for maintenanc e and lotrisone sparingly to the EAC meatus as needed. Follow up three months for reassessme nt. Will recheck hearing then. If ear canal is healthy appearing at that visit, we will stretch follow-up to 6 months. [id number] TYESHA CARRION PA-C [facility] on [address] [place] [address] 09/13/2024 14:30:16 09/13/2024 15:19:39 Abnormal auditory perception 63837250 H93.292 [id number] Audiologic al evaluation results: Right ear: Normal [...] Yost Member ID Guarantor Name 10/20/2023 1 [facility] - PREFERRED (MEDICARE SUPPLEMENT) [id number] Maribell H Colon [id number] 1 Maribell H Colon 09/13/2024 1 [facility] [id number] Maribell H Colon [id number] 1 Maribell H Colon Notes Date Note Type Note Provider Name and Address Organization Details Recorded Time 10/20/2023 text/html ROS as noted in the HPI 63 yo F presents for follow up of her left ear. She is here for scheduled cerumen removal, but she is concerned about persistent pain. She was seen in [place] at the end of January and had [...] a CT scan of the neck at [place] which did not show any sign of [...] mouth to to tightness DURAN NELSON MD [address] [place] [address], [phone], [place] - [facility] 10/30/2023 18:46:54 12/27/2023 text/html ROS as noted in the HPI 63-year-old female presents today for follow-up and reassessment of her ear. PV:63 yo F presents for follow up of her left ear. She is here for scheduled cerumen removal, but she is concerned about persistent pain. She was seen in [place] at the end of January and had [...] a CT scan of the neck at [place] which did not show any sign of [...] to to tightness DURAN NELSON MD [address] [facility],[address], [address], [place] - [facility] 01/03/2024 08:17:01 01/12/2024 text/html ROS as noted in the HPI 63 yo F presents for follow up after lotrisone injection on the left. She does feel improvement in left otalgia. \ She was seen in [place] at the end of January and had [...] symptoms on the left. DURAN NELSON MD [address] [place] [address],[address], [address], [facility] - [facility] [place] 01/18/2024 06:10:12 06/14/2024 text/html Oxcarbazepine helping with [...] recent AIC 7.4. DURAN NELSON MD [address] [facility],[address], [address], [facility] 06/14/2024 09:30:26 09/13/2024 text/html ROS as noted in the HPI 63 year old female presents for 3 month follow up of her left ear. She reports continued itching. She has been using Vinegar drops. She still has sensation that there is something in the ear after a shower. DURAN NELSON MD [address] [facility],[address] [address], [place], [address], [facility] 09/17/2024 08:17:08 OBGyn Episode No OBEpisode recorded.
== END 2025-03-12 14:48 | disposition home or self-care (01) ==
LOC: HO.HOS 13:19
PROVIDERS: PCP Hospitalist
DX: G56.00 Carpal tunnel syndrome, unspecified upper limb (principal)
CPT/HCPCS: 99024

== ENCOUNTER → 2025-03-12 13:19 | Outpatient (BNVA) | payer OTHER, SELFPAY | PROVIDERS: PCP Hospitalist | DX: Z47.89 Encounter for other orthopedic aftercare (principal); G56.01 Carpal tunnel syndrome, right upper limb | CPT/HCPCS: 99212 ==

== ENCOUNTER 2025-03-26 15:08 | Emergency (ER) | payer OTHER, SELFPAY ==
--- NOTE | ~2025-03-26 | CT_ITS ---
EXAMINATION: CT HEAD WITHOUT IV CONTRAST HISTORY: headache, left sided facial tingling. TECHNIQUE: Unenhanced helical CT of the head was performed per standard departmental protocol. Coronal and sagittal reformats of the head were also evaluated. One or more of the following techniques was used for dose reduction: Automated exposure control, adjustment of the mA and/or kV according to patient size, use of iterative reconstruction technique. DLP: 715 mGy-cm COMPARISON: Previous head CT scans most recent September 2023 and brain MRA December 2024 FINDINGS: BRAIN: There is no evidence of an extra-axial collection. There is no evidence of intra or extra-axial hemorrhage. The ventricles and extra-axial CSF spaces are appropriate. There is mild nonspecific periventricular white disease similar to prior exam. No mass, mass effect or infarct. Mild atherosclerotic disease. No dense vessel sign. SINUSES: The visualized paranasal sinuses are clear. The mastoid air cells and middle ear cavities are well pneumatized. ORBITS: The visualized orbits are unremarkable. BONES/SOFT TISSUES: The extracranial soft tissues are unremarkable. The calvarium is intact. No suspicious lytic or sclerotic lesions. CT/CT head/brain wo IV con IMPRESSION: No acute intracranial findings. Electronically signed by: Lula Forrester MD 03/26/2025 04:36 PM [facility]
[2025-03-26 15:15] VITALS: BP 164/81; PULSE 87; RESP 18; TEMP 36.6; O2SAT 98; BMI 41.5
--- NOTE | 2025-03-26 15:16 | ED.HA ---
HPI - Headache General Chief Complaint: Headache Stated Complaint: Head/facial pain & numbness L side Time Seen by Provider: 03/26/25 20:18 Source: patient Mode of arrival: ambulatory Limitations: no limitations History of Present Illness ED Provider: Russ HOWARD HPI Narrative: Patient is a 64-year-old female with a history of cluster headaches, giant cell arteritis, GERD, lumbar radiculopathy, anxiety, DVT, PID, chronic pain, CKD, diabetes, hyperlipidemia, MUSA, asthma, and hypertension, presenting to the ED reporting for the past 2-3 days she has been experiencing intermittent episodes of left-sided headache with numbness / tingling of the face. The patient denies associated fever /chills, nausea, vomiting, or other focal neurological deficit. The patient denies any recent blunt head trauma, near-syncope, or syncope. Patient reports she received her regularly scheduled injection for cluster headaches from her neurologist on March 06, reports the injections have been working well for some time, however headache developed atraumatically 3 days ago and has been recurring despite attempted interventions. Related Data Home Medications ?Medication ?Instructions ?Recorded ?Confirmed alcohol swabs pad topical TID 10/16/20 07/30/24 amlodipine 5 mg tablet 5 mg PO DAILY 10/16/20 12/24/24 apixaban 5 mg tablet 5 mg PO BID 10/16/20 12/24/24 atorvastatin 10 mg tablet 10 mg PO DAILY 10/16/20 12/24/24 blood sugar diagnostic #10 ea 10/16/20 07/30/24 cholecalciferol (vitamin D3) 50 50 mcg PO BEDTIME 10/16/20 12/24/24 mcg (2,000 unit) capsule citalopram 40 mg tablet 40 mg PO DAILY 10/16/20 12/24/24 diclofenac sodium 1 % topical gel g topical 10/16/20 07/30/24 fluticasone propionate 50 0 mcg intranasal BID 10/16/20 12/24/24 mcg/actuation nasal spray,suspension hydrochlorothiazide 25 mg tablet 25 mg PO QAM 10/16/20 12/24/24 lancets 30 gauge #100 ea 10/16/20 07/30/24 loratadine 10 mg tablet 10 mg PO DAILY 10/16/20 12/24/24 losartan 100 mg tablet 100 mg PO DAILY 10/16/20 12/24/24 metoprolol succinate 100 mg 100 mg PO DAILY 10/16/20 12/24/24 tablet,extended release 24 hr montelukast 10 mg tablet 10 mg PO DAILY 10/16/20 12/24/24 pen needle, diabetic 32 gauge x #50 ea 10/16/20 07/30/24 temazepam 30 mg capsule 30 mg PO BEDTIME PRN Sleep 10/16/20 12/24/24 triamcinolone acetonide 0.025 % appl topical 10/16/20 07/30/24 topical cream insulin glargine 100 unit/mL (3 unit subcut BEDTIME 08/14/21 07/30/24 mL) subcutaneous pen (Lantus Solostar U-100 Insulin) insulin lispro 100 unit/mL 30 unit subcut TID 08/14/21 12/24/24 subcutaneous pen ezetimibe 10 mg tablet 10 mg PO DAILY 01/13/23 12/24/24 hydroxyzine HCl 25 mg tablet 25 mg PO DAILY 01/13/23 12/24/24 lorazepam 1 mg tablet 1 mg PO BID 01/13/23 12/24/24 metformin 850 mg tablet 850 mg PO BID 01/13/23 12/24/24 citalopram 20 mg tablet 20 mg PO DAILY 09/28/24 12/24/24 semaglutide 0.25 mg or 0.5 mg (2 mg subcut 09/28/24 mg/3 mL) subcutaneous pen injector (Ozempic) Previous Rx's ?Medication ?Instructions ?Recorded incontinence pad, liner, disp #90 ea 11/13/21 (Poise Pads) albuterol sulfate 90 mcg/actuation 1 inh inhalation QID PRN shortness 06/06/22 aerosol inhaler of breath or wheezing #8.5 grams lidocaine 5 % topical patch 1 patch topical DAILY PRN pain #15 07/02/22 ea nystatin 100,000 unit/gram topical 1 appl topical TID 30 days #30 01/13/23 powder grams disposable gloves (Nitrile Exam #50 ea 02/15/23 Gloves) incontinence pad, liner, disp #180 ea 02/15/23 underpads (Bed Underpads) #90 ea 02/15/23 omeprazole 20 mg capsule,delayed 20 mg PO DAILY #30 caps 05/24/23 release trospium 60 mg capsule,extended 60 mg PO DAILY #90 caps 05/25/24 release 24 hr vibegron 75 mg tablet (Gemtesa) 75 mg PO DAILY 90 days #90 tabs 05/25/24 baclofen 10 mg tablet 10 mg PO BID 30 days #60 tabs 08/29/24 nitrofurantoin 100 mg PO Q12H 3 days #6 caps 09/04/24 monohydrate/macrocrystals 100 mg capsule (Macrobid) phenazopyridine 200 mg tablet 200 mg PO BID #6 tabs 09/04/24 (Pyridium) fluocinonide 0.05 % topical cream 1 appl topical DAILY #30 grams 10/05/24 Oxygen Home Use #3 ea 11/07/24 diphenhydramine HCl 25 mg capsule 50 mg (2 x 25 mg) PO .COMPLEX #2 12/14/24 (Allergy (diphenhydramine)) caps prednisone 50 mg tablet 50 mg PO .COMPLEX #3 tabs 12/14/24 galcanezumab-gnlm 300 mg/3 mL (100 300 mg (3 mL) subcut QMONTH 30 01/20/25 mg/mL x 3) subcutaneous syringe days #3 mL (Emgality) oxycodone-acetaminophen 5 mg-325 1 tab PO Q6H PRN pain, severe #5 10/20/25 mg tablet tabs metoclopramide HCl 10 mg tablet 10 mg PO .six times a day 03/15/25 (Reglan) gastroparesis #180 tabs oxcarbazepine 150 mg tablet 150 mg PO TID 30 days #90 tabs 03/20/25 (Trileptal) Allergies Allergy/AdvReac Type Severity Reaction Status Date / Time octopus Allergy Severe Anaphylaxis Verified 03/26/25 15:18 oxybutynin Allergy Severe Difficulty Verified 03/26/25 15:18 Swallowing tolterodine Allergy Severe Difficulty Verified 03/26/25 15:18 Swallowing aspirin Allergy Unknown anaphylaxis Verified 03/26/25 15:18 citalopram Allergy Unknown Unknown Verified 03/26/25 15:18 empagliflozin (From Allergy Unknown Unknown Verified 03/26/25 15:18 Jardiance) Fish Containing Products Allergy Unknown Unknown Verified 03/26/25 15:18 gabapentin Allergy Unknown hives Verified 03/26/25 15:18 hydrocodone (Vicodin) Allergy Unknown hives Verified 03/26/25 15:18 naproxen (Naprosyn) Allergy Unknown anaphylaxis Verified 03/26/25 15:18 pregabalin (From Lyrica) Allergy Unknown Unknown Verified 03/26/25 15:18 sertraline Allergy Unknown Unknown Verified 03/26/25 15:18 shellfish derived Allergy Unknown Unknown Verified 03/26/25 15:18 peanut Allergy Anaphylaxis Verified 03/26/25 15:18 solifenacin AdvReac phlegm Verified 03/26/25 15:18 Vicodin Allergy Unknown hives Uncoded 03/26/25 15:18 Review of Systems Review of Systems: Yes all other systems are reviewed and are negative PMFSH Past Medical History Medical History Amputated toe of right foot Ganglion cyst Gastroparesis COVID-19 HTN (hypertension) Diabetes mellitus Urinary incontinence UTI (urinary tract infection) Surgical History History of left below knee amputation S/P carpal tunnel release History of surgical removal of ganglion cyst S/P rotator cuff repair History of surgery Social History Social History Are you a primary healthcare specialist to a significant other at home: No Do you presently have visiting nurse or other home services: No Alcohol intake: never Patient Tobacco Use Status: Former Tobacco user Smoked in Last 30 Days: No Use of substances other than those prescribed or required for medical reasons: No Substance Use Type: Marijuana Advance Directives: No Advance Directives Information Provided: No Do you have a plan to hurt others: No Plan Current occupational status: disabled Current occupation: rt handed Physical Exam Vital Signs: Vital Signs: Last Vital Signs Temp 97.3 F 03/26/25 21:56 Pulse 82 03/26/25 21:56 Resp 16 03/26/25 21:56 BP 193/62 H 03/26/25 21:56 Pulse Ox 95 03/26/25 21:56 O2 Del Method Room Air 03/26/25 21:56 BMI result Body Mass Index 41.5 CONSTITUTIONAL: The patient appears uncomfortable but otherwise non-toxic, well nourished and in no acute distress. Vital signs as documented. HEAD: Atraumatic, normocephalic. EYES: EOMs grossly intact, pupils equal, conjunctiva clear, no exudate. ENT: Nares patent, no discharge. Airway patent, no audible stridor, visible mucosa is pink and moist without noted lesions. NECK: Trachea is midline, no obvious masses or gross abnormalities. CHEST: Symmetric movement, normal appearance. LUNGS: LS present and CTAB, no w/r/r. Non-labored work of breathing. CARDIAC: Regular Rhythm, S1/S2 appreciated, no murmurs, rubs or gallops. ABDOMEN: Abdomen soft and non-tender x4 quadrants, no palpable masses or organomegaly. : Deferred. EXTREMITIES: Normal tone, moves all extremities spontaneously without reported pain. No obvious acute injury or deformity noted. NEURO: Alert and oriented x3, CN II-XII appear grossly intact. Cerebellar Functioning grossly intact. No obvious sensory or motor deficits. Speech clear and appropriate. PSYCH: normal affect, appropriate eye contact, fluid speech, with appropriate response to questioning. No reported suicidality or homicidality. SKIN: Warm, dry, color appropriate, normal turgor. No rashes noted. Course Course Course Narrative: This is an RME: Additional HPI, ROS, PE not included below will be deferred to primary provider. RME assessment and note performed by: Venus Sprague PA-C This is a [id number]-female, with a PMH of DM, HTN, LLE amputation, hx of blood clots in leg on eliquis, DM, who presents to the ER with complaints of left sided facial numbness and headaches x 2 days.Reports that she develops episodes of left sided facial numbness/headache that lasts for 2-3 hours and resolves on its own. Reports that she has a hx of similar symptoms in the past, was seen by neurology. Medications Administered Discontinued Medications Generic Name Dose Route Start Last Admin Trade Name Freq PRN Reason Stop Dose Admin Acetaminophen 650 mg 03/26/25 19:15 03/26/25 19:19 Acetaminophen 325 Mg Tablet PO 03/26/25 19:16 650 mg ONCE ONE Administration Diphenhydramine HCl 50 mg 03/26/25 20:39 03/26/25 20:47 Diphenhydramine Hcl 50 Mg/Ml Vial IVPUSH 03/26/25 20:40 50 mg ONCE ONE Administration Sodium Chloride 1,000 mls @ 999 mls/hr 03/26/25 20:45 03/26/25 21:52 Ns IV 03/26/25 21:45 Infused .Q1H1M LATASHA Infusion Metoclopramide HCl 10 mg 03/26/25 20:39 03/26/25 20:47 Metoclopramide Hcl 10 Mg/2 Ml Vial IVPUSH 03/26/25 20:40 10 mg ONCE ONE Administration Medical Decision Making Medical Decision Making MDM Narrative: 8:45 PM 03/26/2025 (Warren HOWARD): Patient is a 64-year-old female with a history of cluster headaches, giant cell arteritis, GERD, lumbar radiculopathy, anxiety, DVT, PID, chronic pain, CKD, diabetes, hyperlipidemia, MUSA, asthma, and hypertension, presenting to the ED reporting for the past 2-3 days she has been experiencing intermittent episodes of left-sided headache with numbness / tingling of the face. The patient denies associated fever /chills, nausea, vomiting, or other focal neurological deficit. The patient denies any recent blunt head trauma, near-syncope, or syncope. Patient reports she received her regularly scheduled injection for cluster headaches from her neurologist on March 06, reports the injections have been working well for some time, however headache developed atraumatically 3 days ago and has been recurring despite attempted interventions. The patient in the ED appears uncomfortable but is otherwise in no acute distress, no focal neurological deficit. The patient's laboratory evaluation is reassuring, no leukocytosis, anemia, electrolyte abnormality, or significant MICKEY, although patient's BUN is elevated at 27, indicating prerenal azotemia. The patient's LFTs are mildly abnormal, CRP is mildly elevated at 0.56, ESR is normal. The patient's troponin is negative, EKG is nonischemic. Patient's CT head shows no acute intracranial pathology. The patient may be suffering from cluster headaches versus atypical migraine. Patient will be treated with IV fluid hydration given prerenal azotemia, Reglan, Benadryl, and high-flow oxygen. We will reassess following interventions. Pending improvement in symptoms the patient will likely be discharged to follow up with her neurologist. 9:30 PM 03/26/2025 (Warren HOWARD): The patient is reporting resolution of symptoms following interventions. At this time there is no indication for continued observation. Patient will be discharged with outpatient follow up with neurologist. Admission/Observation Consideration of admission/observation: Escalation of care including admission/observation considered Lab Data MDM Lab Attestation statement: I reviewed the patient's lab results. 03/26/25 15:55 03/26/25 15:55 Labs: Lab Results 03/26/25 Range/Units 15:55 WBC 9.1 (4.8-10.8) X10*3/uL RBC 4.39 (4.20-5.50) X10*6/uL Hgb 13.4 (12.0-16.0) g/dl Hct 40.8 (37.0-47.0) % MCV 92.9 (80.0-98.0) fL MCH 30.5 (27.0-33.0) pg MCHC 32.8 (31.0-35.0) g/dl RDW 12.5 (11.0-16.0) % Plt Count 211 D (160-400) X10*3/uL MPV 9.1 L (9.4-12.3) fL Immature Gran % (Auto) 0.2 (0.0-0.4) % Neut % (Auto) 51.8 (45-73) % Lymph % (Auto) 37.1 (20-40) % [place] % (Auto) 6.8 (2-11) % Eos % (Auto) 3.4 (0-4) % Baso % (Auto) 0.7 (0-2) % Lymph # (Auto) 3.4 (1.2-4.9) X10*3/uL [place] # (Auto) 0.6 (0.1-1.2) X10*3/uL Eos # (Auto) 0.3 (0.0-0.4) X10*3/uL Baso # (Auto) 0.1 (0.0-0.2) X10*3/uL Abs Immat Gran (auto) 0.02 (0.00-0.03) X10*3/uL Absolute Neuts (auto) 4.7 (2.0-8.3) x10*3/uL Absolute Nucleated RBC 0.000 (0.0-0.012) X10*3/uL Nucleated RBC % (auto) 0.0 (0.0-0.2) /100WBC ESR 12 (0-20) MM/HR Sodium 139 (135-145) mmol/L Potassium 4.8 (3.3-5.1) mmol/L Chloride 105 (96-108) mmol/L Carbon Dioxide 24 (22-29) mmol/L Anion Gap 15 (12-20) BUN 27 H (9-16) mg/dL Creatinine 1.40 (0.5-1.4) mg/dL Estim Creat Clear Calc 46.8 Estimated GFR 38 Random Glucose 163 H (60-115) mg/dL Calcium 10.0 D (8.4-10.2) mg/dL Magnesium 2.1 (1.6-2.6) mg/dL Total Bilirubin 0.4 (0.0-1.0) mg/dL Direct Bilirubin 0.1 (0.0-0.5) mg/dL AST 39 H (5-31) U/L ALT 52 H (0-31) U/L Alkaline Phosphatase 77 (39-117) U/L Troponin I High Sens < 2.7 (<3.5-17.0) ng/L C-Reactive Protein 0.56 H (< or = 0.50) mg/dL Total Protein 7.0 (6.5-8.0) g/dL Albumin 4.4 (3.5-5.0) g/dL Independent Interpretation I performed an independent interpretation of an: EKG ( EKG shows sinus rhythm with a rate of 86, no evidence of acute ischemia, no ST elevation, no ectopy. QTC 447. Compared to previous on 02/12/2025 there are no significant morphology changes.) Radiology Impression Discussion of test interpretation with radiology: I have reviewed the radiologist's reading. Radiologist Impression: EXAMINATION: CT HEAD WITHOUT IV CONTRAST HISTORY: headache, left sided facial tingling. TECHNIQUE: Unenhanced helical CT of the head was performed per standard departmental protocol. Coronal and sagittal reformats of the head were also evaluated. One or more of the following techniques was used for dose reduction: Automated exposure control, adjustment of the mA and/or kV according to patient size, use of iterative reconstruction technique. DLP: 715 mGy-cm COMPARISON: Previous head CT scans most recent September 2023 and brain MRA December 2024 FINDINGS: BRAIN: There is no evidence of an extra-axial collection. There is no evidence of intra or extra-axial hemorrhage. The ventricles and extra-axial CSF spaces are appropriate. There is mild nonspecific periventricular white disease similar to prior exam. No mass, mass effect or infarct. Mild atherosclerotic disease. No dense vessel sign. SINUSES: The visualized paranasal sinuses are clear. The mastoid air cells and middle ear cavities are well pneumatized. ORBITS: The visualized orbits are unremarkable. BONES/SOFT TISSUES: The extracranial soft tissues are unremarkable. The calvarium is intact. No suspicious lytic or sclerotic lesions. CT/CT head/brain wo IV con IMPRESSION: No acute intracranial findings. Electronically signed by: Lula Forrester MD 03/26/2025 04:36 PM [facility] External Record Review External record reviewed: Outpatient record and Prior outpatient labs Prescription Management I considered prescription management with: Pain Medication Discharge Plan Discharge Clinical Impression: Cluster headache Patient Disposition: Home, Self-Care Instructions: Cluster Headache (ED), Acute Headache (ED) Additional Instructions: Thank you for choosing [facility]'s Emergency Department for your care today. Thankfully your laboratory evaluation, CT head, EKG, and exam today were reassuring, and your symptoms improved after interventions in the ED. At this time there is no indication for admission to the hospital or continued ED observation, and it is safe to discharge you home. Your symptoms today are consistent with your known diagnosis of cluster headaches. Please follow up with your neurologist for your scheduled headache injections. Please also follow up with your primary care physician for re-evaluation, additional management of your symptoms, and continued preventative care. If you do not have a primary care physician, please call the [facility] at [phone] to establish a new primary care physician. While waiting to establish your new primary care physician, you can call our [facility] at [phone] for non-emergency needs. Please return to the emergency department if you develop a severe or sudden change in your symptoms, a fever over 100.4 that does not improve with Tylenol or Ibuprofen, recurrent vomiting, or any other new or worsening symptoms or concerns. Prescriptions: No Action (DME) disposable gloves [Nitrile Exam Gloves] Misc See Rx Instructions .Route Qty: 50 11RF Rx Instructions: As directed- pt requesting size XL (DME) incontinence pad, liner, disp Pad See Rx Instructions .ROUTE .MEDSUPPLY Qty: 180 11RF Rx Instructions: As directed- pt requesting 6 per day (DME) underpads [Bed Underpads] Pad See Rx Instructions .Route Qty: 90 11RF Rx Instructions: As directed- pt requesting 3 per night baclofen 10 mg tablet 10 mg PO BID 30 Days Qty: 60 3RF fluocinonide 0.05 % cream 1 appl topical DAILY Qty: 30 0RF diphenhydramine HCl [Allergy (diphenhydramine)] 25 mg capsule 50 mg PO .COMPLEX Qty: 2 0RF Rx Instructions: 50 mg orally 1 hour before MRI with contrast injection; MRI on 12/22/2024 prednisone 50 mg tablet 50 mg PO .COMPLEX Qty: 3 0RF Rx Instructions: 50 mg orally 13 hours, 7 hours, and 1 hour before MRI with contrast injection; MRI on 12/22/2024 Emgality Syringe 300 mg/3 mL (100 mg/mL x 3) syringe 300 mg subcut QMONTH 30 Days Qty: 3 6RF Rx Instructions: administer as three 100 mg injections at separate sites metoclopramide HCl [Reglan] 10 mg tablet 10 mg PO .six times a day Qty: 180 1RF oxcarbazepine [Trileptal] 150 mg tablet 150 mg PO TID 30 Days Qty: 90 1RF albuterol sulfate 90 mcg/actuation HFA aerosol inhaler 1 inh inhalation QID PRN (Reason: shortness of breath or wheezing) Qty: 8.5 0RF lidocaine 5 % adhesive patch,medicated 1 patch topical DAILY PRN (Reason: pain) Qty: 15 0RF Rx Instructions: leave on most painful area for up to 12 hrs oxycodone-acetaminophen 5-325 mg tablet 1 tab PO Q6H PRN (Reason: pain, severe) Qty: 5 0RF Rx Instructions: Partial Fill upon patient request. nitrofurantoin monohyd/m-cryst [Macrobid] 100 mg capsule 100 mg PO Q12H 3 Days Qty: 6 0RF Rx Instructions: must administer with a meal/food phenazopyridine [Pyridium] 200 mg tablet 200 mg PO BID Qty: 6 0RF Rx Instructions: must take with food (DME) lancets 30 gauge misc See Rx Instructions .ROUTE TID Qty: 100 Rx Instructions: As directed (DME) pen needle, diabetic 32 gauge x 5/32 needle See Rx Instructions .ROUTE .MEDSUPPLY Qty: 50 Rx Instructions: As directed cholecalciferol (vitamin D3) 50 mcg (2,000 unit) capsule 50 mcg PO BEDTIME diclofenac sodium 1 % gel topical loratadine 10 mg tablet 10 mg PO DAILY fluticasone propionate 50 mcg/actuation spray,suspension 0 mcg intranasal BID losartan 100 mg tablet 100 mg PO DAILY hydrochlorothiazide 25 mg tablet 25 mg PO QAM alcohol swabs Pads, Medicated topical TID montelukast 10 mg tablet 10 mg PO DAILY temazepam 30 mg capsule 30 mg PO BEDTIME PRN (Reason: Sleep) amlodipine 5 mg tablet 5 mg PO DAILY (DME) FreeStyle Lite Strips Strip See Rx Instructions Not Applicable TID Qty: 10 Rx Instructions: As directed metoprolol succinate 100 mg tablet extended release 24 hr 100 mg PO DAILY atorvastatin 10 mg tablet 10 mg PO DAILY citalopram 40 mg tablet 40 mg PO DAILY Eliquis 5 mg tablet 5 mg PO BID triamcinolone acetonide 0.025 % cream topical Lantus Solostar U-100 Insulin 100 unit/mL (3 mL) insulin pen subcut BEDTIME insulin lispro 100 unit/mL insulin pen 30 unit subcut TID (DME) Poise Pads Pad See Rx Instructions .ROUTE .MEDSUPPLY Qty: 90 0RF Rx Instructions: As directed ezetimibe 10 mg tablet 10 mg PO DAILY lorazepam 1 mg tablet 1 mg PO BID hydroxyzine HCl 25 mg tablet 25 mg PO DAILY metformin 850 mg tablet 850 mg PO BID nystatin 100,000 unit/gram powder 1 appl topical TID 30 Days Qty: 30 0RF Rx Instructions: to abdominal fold bilaterally trospium 60 mg capsule,extended release 24hr 60 mg PO DAILY Qty: 90 3RF Rx Instructions: must be taken on empty stomach at least 1 hour before a meal/food with water only Gemtesa 75 mg tablet 75 mg PO DAILY 90 Days Qty: 90 3RF omeprazole 20 mg capsule,delayed release(DR/EC) 20 mg PO DAILY Qty: 30 6RF (DME) Oxygen Home Use Kit See Rx Instructions .Route Qty: 3 6RF Rx Instructions: Start home O2 at 15-25 L/min via non-rebreather facemask x's 15-20 minutes at onset of cluster headache attack. Patient will require both M tanks and E tanks. Ozempic 0.25 mg or 0.5 mg (2 mg/3 mL) pen injector subcut citalopram 20 mg tablet 20 mg PO DAILY Referrals: Bang Hilario MD [Primary Care Provider, Primary Care] Clinical Impression: Cluster headache Interventions: ED Discharge Assessment Last Done: 03/26/25 21:56 Discharge Date/Time: 03/26/25 22:01 Print Language: Yoruba
--- NOTE | 2025-03-26 15:22 | ECG_ITS ---
Test Reason : CP Blood Pressure : */* mmHG Vent. Rate : 86 BPM Atrial Rate : 86 BPM P-R Int : 144 ms QRS Dur : 86 ms QT Int : 374 ms P-R-T Axes : 39 18 21 degrees QTcB Int : 447 ms Normal sinus rhythm Possible Anterior infarct (cited on or before 12-Feb-2025) Abnormal ECG When compared with ECG of 12-Feb-2025 09:12, No significant change was found Referred By: Venus Sprague Electronically Signed By: ARABELLA PRASAD
[2025-03-26 16:02] LABS: MANUAL DIFF FLAG NO
[2025-03-26 16:03] LABS: Hematocrit 40.8 % (37.0-47.0); Hemoglobin 13.4 g/dl (12.0-16.0); Imm Gran Abs Auto 0.02 X10*3/uL (0.00-0.03); Imm Gran Pct Auto 0.2 % (0.0-0.4); Lymphocytes Absolute Auto 3.4 X10*3/uL (1.2-4.9); Mean Corpuscular HGB Conc 32.8 g/dl (31.0-35.0); Mean Corpuscular Hemoglobin 30.5 pg (27.0-33.0); Mean Corpuscular Volume 92.9 fL (80.0-98.0); NRBC Abs Auto 0.000 X10*3/uL (0.0-0.012); NRBC Pct Auto 0.0 /100WBC (0.0-0.2); Platelet Count 211 X10*3/uL (160-400); Red Blood Count 4.39 X10*6/uL (4.20-5.50); White Blood Count 9.1 X10*3/uL (4.8-10.8)
[2025-03-26 16:30] VITALS: BP 174/69; PULSE 85; RESP 16; O2SAT 95
[2025-03-26 16:36] LABS: Alanine Aminotransferase 52 U/L (0-31); Albumin Level 4.4 g/dL (3.5-5.0); Alkaline Phosphatase 77 U/L (39-117); Anion Gap 15 (12-20); Aspartate Amino Transferase 39 U/L (5-31); Blood Urea Nitrogen 27 mg/dL (9-16); Calcium 10.0 mg/dL (8.4-10.2); Carbon Dioxide 24 mmol/L (22-29); Chloride 105 mmol/L (96-108); Creatinine Clr Calc Pharmacy 46.8; Estimated Glomerular Filt Rate 38; Magnesium 2.1 mg/dL (1.6-2.6); Potassium 4.8 mmol/L (3.3-5.1); Sodium 139 mmol/L (135-145); Total Protein 7.0 g/dL (6.5-8.0)
--- NOTE | 2025-03-26 16:39 | PC.NURSE ---
Pt awake and alert. Presents to ED for concerns of x2 days of headache with intermittent left sided facial numbness. States pain feels stabbing . Has had similar episodes in past, states has seen a neurologist for this. At this time, pain 10/10. Neuros intact, equal hand strengthen (baseline weakness from carpal tunnel), no facial droop noted. Speech clear. Had moment where she felt room was spinning . Vitals stable at this time. Awaiting ED provider eval. Family member at bedside.
[2025-03-26 16:46] LABS: Troponin-I High Sensitivity < 2.7 ng/L (<3.5-17.0)
[2025-03-26 17:43] LABS: Erythrocyte Sedimentation Rate 12 MM/HR (0-20)
[2025-03-26 18:25] VITALS: BP 177/63; PULSE 94; RESP 16; TEMP 36.6; O2SAT 97
[2025-03-26 20:35] VITALS: BP 193/62; PULSE 82; RESP 16; TEMP 36.3; O2SAT 95
[2025-03-26 21:56] VITALS: BP 193/62; PULSE 82; RESP 16; TEMP 36.3; O2SAT 95
== END 2025-03-26 22:01 | disposition home or self-care (01) ==
PROVIDERS: Physician Assistant Medical; Emergency Provider Emergency Medicine; PCP Hospitalist
DX: G44.009 Cluster headache syndrome, unspecified, not intractable (principal); E11.22 Type 2 diabetes mellitus with diabetic chronic kidney disease; I12.9 Hypertensive chronic kidney disease with stage 1 through stage 4 chronic kidney disease, or unspecified chronic kidney disease; N18.9 Chronic kidney disease, unspecified; Z86.718 Personal history of other venous thrombosis and embolism; Z79.01 Long term (current) use of anticoagulants; Z88.5 Allergy status to narcotic agent; Z88.6 Allergy status to analgesic agent; Z88.8 Allergy status to other drugs, medicaments and biological substances; Z91.010 Allergy to peanuts; Z91.013 Allergy to seafood
CPT/HCPCS: 36415; 70450; 80048; 80076; 83735; 84484; 85025; 85652; 86140; 93005; 96361; 96374; 96375; 99284; 99285; J1200; J2765

== ENCOUNTER → 2025-03-26 15:22 | Outpatient (BNV) | payer OTHER, SELFPAY | PROVIDERS: Emergency Provider Emergency Medicine; PCP Hospitalist; Visit Provider Internal Medicine | DX: R94.31 Abnormal electrocardiogram [ECG] [EKG] (principal); R07.9 Chest pain, unspecified | CPT/HCPCS: 93010 ==

== ENCOUNTER → 2025-03-26 15:40 | Outpatient (BNV) | payer OTHER, SELFPAY | PROVIDERS: PCP Hospitalist; Visit Provider Radiology Diagnostic Radiology | DX: R51.9 Headache, unspecified (principal); R20.2 Paresthesia of skin | CPT/HCPCS: 70450 ==

== ENCOUNTER 2025-04-02 05:35 | Day surgery (SDC) | payer OTHER, SELFPAY ==
--- OUTSIDE RECORDS SUMMARY | 2025-03-15 06:22 | XMS_ITS | Clinical Summary ---
Author Organization [address] [facility] Address [address] [place] [address] Phone Care Team Providers Care [employer] Lab Technician Name Role Phone Samuel Hilario MD Primary Care Provider [phone] Allergies Active Allergy Reactions Criticality Noted Date [...] that time. All questions answered. Diabetic gastroparesis ([facility] V24, [facility] V28 ) 08/25/2022 Prurigo nodularis 11/13/2016 Overview [...] 2 diabetes mellitus wit h neurological manifestations ([facility] V24, [facility] V28) 03/29/2014 Overview (03/27/2024): Left stump neuropathy Intolerant metformin Refused increase med. See Tel. 02/02/16 Urinary incontinence 03/29/2014 Overview (03/27/2024): [place]. Changed to [place] Panic attacks 03/29/2014 Overview (03/27/2024): Sees psych Morbid obesity ([facility] V24, [facility] V28) 2013 Overview (03/27/2024): BMI 43.0 on 02/07/14 per transfer records MUSA (obstructive sleep apnea) 03/18/2014 Lumbosacral spondylosis without myelopathy 03/18 Eczema 03/18/2014 History of leg amputation ([facility] V24, [facility] V28) 03/18/2014 Overview (03/27/2024): BKA 08/10/11 left Lumbago 04/16/2009 S/P BKA (below knee amputation) (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 V24, [facility] V28) 08/19/2005 Overview (03/27/2024): from birthcontrol.had amputation on 10/11.on coumadin since October previous pcp dr ANA ignacio u/s negative in [place] 08/16/05 plastic sugeon for wound care s/p amputation.sees dr loyd for infection suresh gray is her plastic surgeon just finished reconstruciton Heartburn 08/19/2005 Phantom limb syndrome ([facility] V24, [facility] V28) 08/19/2005 Overview (03/27/2024): IMO update Asthma 08/19/2005 Depressive disorder 08/19/2005 Overview (03/27/2024): Shannon hernandez,[facility].they give wellbutrin,remerenon,seroquel Encounters Date Type Department Care Team Description 12/20/2024 1:45 PM EDT Office Visit Orthopedic Surgery - [address] [phone] Nolberto Cruz, DPM Dermatophytosis of nail (Primary Dx); Acquired hammer toe of right foot; Type II diabetes mellitus with peripheral circulatory disorder ([facility] V24, [facility] V28); Diabetic mononeuropathy simplex ([facility] V24, [facility] V28); Hx of BKA, left ([facility] V24, [facility] V28); Corns and callosities from Last 3 [...] Date Site/Laterality Comments ENDOMETRIAL ABLATION 2006 PROCEDURE: DE ENDOMETRIAL ABLTJ THERMAL W/O HYSTEROSCOPIC GUID; COMMENT: Whit OTHER SURGICAL HISTORY 2011 Left PROCEDURE: HISTORICAL BELOW KNEE AMP; COMMENT: vascular problems COLONOSCOPY 08/20/2008 PROCEDURE: HISTORICAL COLONOSCOPY; COMMENT: normal TUBAL LIGATION PROCEDURE: HISTORICAL TUBAL LIGATION CARPAL TUNNEL RELEASE 2021 PROCEDURE: DE NEUROPLASTY &/TRANSPOS MEDIAN NRV CARPAL TUNNE Medical History Medical History Date Comments 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 V28) DX:Amputation of leg ([facility]) Incontinence DX:Incontinence Otitis media DX:Otitis media Pelvic pain DX:Pelvic pain Left shoulder pain DX:Left shoul krystle pain Sleep apnea DX:Sleep apnea; COMMENT: CPAP Historical Medical DX 2004 DX:HTN; CO MMENT: Metropolol and Buspar Rotator cuff tear 05/18/2014 DX:Rotator cuf f tear; COMMENT: Chronic anterior/superior tear, managed medically Carpal tunnel syndrome 05/18/2014 DX:Carpal tunnel syndrome; COMMENT: left History of leg amputation ([facility] V24, [facility] V28) 03/18/2014 DX:History of leg amputation (HCC); COMMENT: BKA 08/10/11 (leg not specified) History of pulmonary embolism 03/18/2014 DX :History of pulmonary embolism; COMMENT: 2011 MUSA (obstructive sleep apnea) 03/18/2014 DX :MUSA (obstructive sleep apnea) Impaired fasting glucose 03/18/2014 DX:Impa ired fasting glucose Lumbosacral spondylosis with out myelopathy 03/18/2014 DX:Lumbosacral spondylosis w ithout myelopathy Eczema 03/18/2014 DX:Eczema Morbid obesity (CMS/HCC V24, [facility] V28) 03/18/2014 DX:Morbid obesity (HCC); COM MENT: BMI 43.0 on 02/07/14 Hypertension DX:Hypertension Type 2 diabetes mellitus wit hout complications ([facility] V24, [facility] V28) DX:Type 2 diabetes mellitus without complications [...] PM EST Office Visit Orthopedic Surgery - [place] [address] [facility] [address] [place] [address] [place] [phone] Nloberto Cruz, DPM [address] [phone] Health Maintenance Due Date Last Done Comments [...] [facility] [address], [address] -------- FINAL REPORT -------- Dictated By: Sd Restrepo Dictated Date: 08/20/2024 16:32 ET Assigned Physician: Sd Restrepo Reviewed and Electronically Signed By: Sd Restrepo Signed Date: 08/20/2024 16:39 ET Workstation ID: [id number] Transcribed By: Self Edit Transcribed Date: 08/20/2024 16:32 ET Narrative 08/20/2024 4:39 PM EDT EXAM: SCREENING MAMMOGRAPHY, BILATERAL HISTORY: SCREENING. Paternal aunt diagnosed with breast cancer age 39 COMPARISON: 10/21/20 TECHNIQUE: Synthesized CC and MLO projections of each breast. Tomosynthesis of each breast in the CC and MLO projections. ADDITIONAL IMAGING: None Computer-aided detection was employed with the [employer] AI 3-D. TISSUE DENSITY: The breasts are [...] None Computer-aided detection was employed with the [employer] AI 3-D. TISSUE DENSITY: The breasts are [...] year. Mamm[facility] location: [facility] [address] [place], [address] -------- FINAL REPORT -------- Dictated By: Sd Restrepo Dictated Date: 08/20/2024 16:32 ET Assigned Physician: Sd Restrepo Reviewed and Electronically Signed By: Sd Restrepo Signed Date: 08/20/2024 16:39 ET Workstation ID: [id number] Transcribed By: Self Edit Transcribed Date: 08/20/2024 16:32 ET Betty Matt CNM IMG BI PROCEDURES Final Resul t * HPV with reflex genotype (08/07/2024 2:32 PM EDT) [facility] HPV Negative Negative LAB MICROBIOLOGY METHOD 08/08/2024 1:09 PM EDT [facility] Brushing/Spatula Cervix uteri structure / Unknown 08/07/2024 2:32 PM EDT 08/08/2024 6:17 AM EDT Betty Matt CNM LAB MOLECULAR DIAGNOSTICS ORD ERABLES Final Result [facility] [address] [place] [address], * HM Urine Albumin Creatinine Ratio (02/25/2017) [facility] Urine Albumin Creatinine Ratio abstracted Historical Provider HEALTH MAINTENANCE Final Result * (ABNORMAL) Hemoglobin A1c (02/25/2017) [facility] Hemoglobin A1C 7.4(A) 4.0 - 6.0 % Blood Venous blood specimen / Unknown Historical Provider LAB BLOOD ORDERABLES Jessy l Result * (ABNORMAL) Lipid panel (02/25/2017) [facility] LDL/HDL Ratio 4 0 - 4 Triglycerides 280(A) 0 - 150 mg/dL Cholesterol 110 0 - 200 mg/dL HDL 29(A) >=40 mg/dL LDL Cholesterol 25 0 - 100 mg/dL Blood Venous blood specimen / Unknown Historical Provider LAB BLOOD ORDERABLES Jessy l Result * Hepatitis C Screening (01/02/2016) Pathologist [facility] Hepatitis C Screening abstracted Historical Provider HEALTH MAINTENANCE Final Result * Depression Screening (08/19/2005) Pathologist [facility] Depression Screening abstracted [facility] Provider HEALTH MAINTENANCE Final Result from Last 3 Months or Most Recently Relevant to Health Maintenance Insurance [facility] Handseeing Information PLANS Care Teams [employer] Lab Technician Relationship Specialty Start Date End Date Samuel Hilario MD [address] [place] [phone] PCP - General Internal Medicine 03/19/20
--- OUTSIDE RECORDS SUMMARY | 2025-03-15 06:22 | XMS_ITS | Patient Health Record ---
Author Organization [facility] Address [address] [place] [address] Care Team Providers Care Remelt Furnace Expediter Name Role Phone ELLA MICHAEL Primary Care Provider Adolfo Vilchis Unavailable [phone] Allergies Allergen (clinical drug ingredient) Drug/Non Drug [...] kathleen Results Component Value Reference Range Notes MG MAMMO DIGITAL SCREENING W TONG BILAT Reviewed date:08/22/2024 02:13:16 PM Interpretation: Performing Lab: Notes/Report: Note See Note [facility], a member of [employer] Patient Name: MARIBELL TAYLOR Date of : 1960 Reason for Exam: Breast cancer screen, avg risk, asymptomatic (Age => 42y) Exam Date: 08/20/2024 [id number] EST Report Status: Final Ordering Provider: TONY RAPP PCP: LELA MICHAEL EXAM: SCREENING MAMMOGRAPHY, BILATERAL HISTORY: SCREENING. [...] Mammography location: [facility] at [address], [address] -------- FINAL REPOR T -------- Dictated By: Sd Holbrook Dictated Date: 08/20/2024 16:32 ET Assigned Physician: Sd Restrepo Reviewed and Electronically Signed By: Sd Restrepo Signed Date: 025 16:39 ET Workstation ID: [id number] Transcribed By: Self Edit Transcribed Date: 08/20/2024 [...] screening system. Technical cytopathology services provided by [facility], at [address], [place] [address] (CLIA # [id number]/Omi Connelly MD, Traction Power Engineer.) Console Pap Interpretation Reported General Categorization Negative Hemoglobin [id number] Reviewed date:08/04/2024 01:31:25 PM Interpretation: Performing Lab:[facility], [address] [place] [address], [place], Phone - [phone], Director - Mohsen Notes/Report: Hemoglobin A1c 7.1 4.8-5.6 % . Prediabetes: 5.7 - 6.4 Diabetes: >6.4 Glycemic control for adults with diabetes: <7.0 Albumin/Creatinine Ratio,Vinniei ne-[id number] Reviewed date:08/04/2024 01:31:32 PM Interpretation: Performing Lab:[facility], Phone - [phone], Director - Mohsen Notes/Report: Creatinine, Urine 88.2 Not Estab. mg/dL Albumin, Urine 19.2 Not Estab. ug/mL Alb/Creat Ratio 22 0-29 mg/g creat Normal: 0 - 29 Moderately increased: 30 - 300 Severely increased: >300 Lipid Panel-[id number] Reviewed date:08/16/2024 04:22:18 PM Interpretation: Performing Lab:[facility], [address] [place] [address], Phone - [phone], Director - Mohsen Notes/Report: Cholesterol, Total 132 100-199 mg/dL Triglycerides 228 0-149 mg/dL HDL Cholesterol 38 >39 mg/dL VLDL Cholesterol Timothy 37 5-40 mg/dL LDL Chol Calc (NIH) 57 0-99 mg/dL Comp. Metabolic Panel (14)-3 [id number] Reviewed date:08/04/2024 01:36:37 PM Interpretation: Performing Lab:[facility], [address] [place] [address], Phone - [phone], Director - Mohsen Notes/Report: Glucose 101 70-99 [...] IU/L ALT (SGPT) 46 0-32 IU/L Lipid Panel-[id number] Reviewed date:08/26/2024 07:23:29 AM Interpretation: Performing Lab:[facility], [address] [place] [address], Phone - [phone], Director - Mohsen Notes/Report: Cholesterol, Total 125 100-199 mg/dL Triglycerides 203 0-149 mg/dL HDL Cholesterol 39 >39 mg/dL VLDL Cholesterol Timothy 33 5-40 mg/dL LDL Chol Calc (NIH) 53 0-99 mg/dL Comp. Metabolic Panel (14)-3 Reviewed date:09/03/2024 02:43:50 PM Interpretation: Performing Lab:[facility], [address] [place] [address], Phone - [phone], Director - Mohsen Notes/Report: Glucose 145 70-99 [...] IU/L ALT (SGPT) 38 0-32 IU/L Lipid Panel-[id number] Reviewed date:09/03/2024 02:43:34 PM Interpretation: Performing Lab:[facility], [address] [place] [address], Phone - [phone], Director - Mohsen Notes/Report: Cholesterol, Total 126 100-199 mg/dL Triglycerides 205 0-149 mg/dL HDL Cholesterol 38 >39 mg/dL VLDL Cholesterol Timothy 33 5-40 mg/dL LDL Chol Calc ([facility]) 55 0-99 mg/dL Albumin/Creatinine Ratio,Uri ne-[id number] Reviewed date:09/03/2024 02:43:41 PM Interpretation: Performing Lab:[facility], [address], [place], Phone - [phone], Director - Mohsen Notes/Report: Creatinine, Urine 75.8 Not Estab. mg/dL Albumin, Urine 24.0 Not Estab. ug/mL Alb/Creat Ratio 32 0-29 mg/g creat Normal: 0 - 29 Moderately increased: 30 - 300 Severely increased: >300 HPV WITH REFLEX GENOTYPE Reviewed date:08/08/2024 01:37:20 PM Interpretation: Performing Lab: Notes/Report: HPV Negative Negative Reason For Referral No Information Medications Medication [...] 10 days 05/31/2023 Active True Comfort Pen [place] 32G X 4 MM USE TO [...] a day; Duration: 7 days 11/05/2022 Active Ndpzdnwt-Sczqyppbg-YM 1 % 4 drops into affected ear [...] TIMES A DAY; Duration: 33 Active Nystatin-Triamcinolone 451650-9.1 UNIT/GM 1 application Externally Twice a day; [...] W/U Status Risk Notes Problem Diabetic neuropathy (565532470) Diabetes mellitus due to underlying condition with diabetic neuropathy, unspecified (E08.40) Active confirmed Problem Morbid obesity (disorder) (462627417) Morbid (severe) obesity due to excess calories (E66.01) Active confirmed Problem Anxiety disorder (137771461) Anxiety disorder, unspecified (F41.9) Active confirmed Problem Essential tremor (819775948) Essential tremor (G25.0) Active confirmed Problem Insomnia (523342380) Insomnia, unspecified (G47.00) Active confirmed Problem Obstructive sleep apnea syndrome (35080090) Obstructive sleep apnea (adult) (pediatric) (G47.33) Active confirmed Problem Essential hypertensi on (84269405) Essential (primary) hypertension (I10) Active confirmed Problem Chronic kidney disea se due to hypertension (427866831113134) Hypertensive chronic kidney disease with stage 1 through stage 4 chronic kidney disease, or unspecified chronic kidney disease (I12.9) Active confirmed Problem Peripheral vascular disease (556626250) Peripheral vascular disease, unspecified (I73.9) Active confirmed Problem Embolism from thrombosis of vein of lower extremity (353745199) Chronic embolism and thrombosis of unspecified deep veins of unspecified lower extremity (I82.509) Active confirmed Problem Uncomplicated mild persistent asthma (047559379) Mild persistent asthma, uncomplicated (J45.30) Active confirmed Problem Polyp of colon (18741667) Polyp of colon (K63.5) Active confirmed Problem Acquired hammer toe of right foot (8894249536685677) Other hammer toe(s) (acquired), right foot (M20.41) Active confirmed Problem Shoulder joint pain (063608485) Pain in left shoulder (M25.512) Active confirmed Problem Lumbosacral radiculopathy (2308367) Radiculopathy, lumbosacral region (M54.17) Active confirmed Problem Dysphagia (30166432) Dysphagia, unspecified (R13.10) Active confirmed Problem Paresthesia (finding ) (51109958) Paresthesia of skin (R20.2) Active confirmed Problem Amputated below knee (613188935) Acquired absence of left leg below knee (Z89.512) Active confirmed Problem Pure hypercholesterolemia (428258434) Pure hypercholesterolem ia, unspecified (E78.00) Active confirmed Problem Chronic kidney disea se stage 3 (disorder) (303179084) Chronic kidney disease, stage 3 unspecified (N18.30) Active confirmed Problem Chronic kidney disea se stage 3A (disorder) (371465694) Chronic kidney disease, stage 3a (N18.31) Active confirmed Problem Type 2 diabetes mellitus with other specified complication, without long-term current use of insulin (E11.69) Active confirmed Problem Urinary incontinence (044933933) Urinary incontinence, unspecified type (R32) Active confirmed Problem Gastroesophageal reflux disease (130970953) Gastroesophageal reflux disease, unspecified whether esophagitis present (K21.9) Active confirmed Vital Signs Heart Rate 79 /min 01/21/2025 Temperature 96.8 degrees Fahrenheit 01/21/2025 Blood pressure diastolic 72 mm Hg 01/21/2025 Oximetry 96 % 01/21/2025 Height 62.24 in 01/21/2025 Blood pressure systolic 130 mm Hg 01/21/2025 Weight 226.0 lbs 01/21/2025 BMI 41.01 kg/m2 01/21/2025 Encounters Encounter Location Date Provider Diagnosis [address] [address] 04/18/2024 Adolfo Vilchis Diabetes mellitus du e [...] of micturition R35.0 and Epidermal cyst L72.[address] [place] [address] 05/14/2024 ELLA MICHAEL Pain in right leg M79.[address] [place] [address] 05/23/2024 JARAMILLO JAZMINL Diabetes mellitus du e to underlying condition with diabetic neuropathy, unspecified E08.40 ; Essential (primary) hypertension I10 ; Obstructive sleep apnea (adult) (pediatric) G47.33 ; Anxiety disorder, unspecified F41.9 ; Mild persistent asthma, uncomplicated J45.30 ; Chronic embolism and thrombosis of unspecified deep veins of unspecified lower extremity I82.509 and Chronic kidney disease, stage 3 unspecified N18.[address] [place] [address] 07/31/2024 JARAMILLO GUL Diabetes mellitus du e [...] Chronic kidney disease, stage 3 unspecified N18.[address] [place] [address] 09/17/2024 JARAMILLO GUL Unspecified fall, initial encounter W19.XXXA and Pain in right leg M79.[address] [place] [address] 11/26/2024 ELLA MICHAEL Annual physical exam Z00.00 [...] deep veins of unspecified lower extremity I82.[address] [place] [address] 01/21/2025 ELLA MICHAEL Diarrhea, unspecifie d R19.7 and Viral infection, unspecified B34.[address] [place] [address] 04/16/[address] [place] [address] 04/16/[address] [place] [address] 06/21/[address] [place] [address] 07/13/[address] [place] [address] 07/30/[address] [place] [address] 08/16/2024 Adolfo Vilchis [address] [place] [address] 08/16/2024 JARAMILLO GUL Pure hypercholesterolemia, unspecified E78.[address] [place] [address] 08/22/[address] [place] [address] 08/22/[address] [place] [address] 09/25/2024 JARAMILLO [facility] Acute URI J06.[address] [place] [address] 11/08/[address] [place] [address] 11/12/[address] [place] [address] 11/26/2024 JARAMILLO [facility] Peripheral vascular disease, unspecified I73.[address] [address] 01/17/2025 ELLA WU Assessments Encounter Date Diagnosis (ICD Code) Assessment Notes Treatment Notes Treatment Clinical Notes Section Notes 01/21/2025 Viral infection, unspecified (ICD-10 - B34.9) Maribell is a 64-year-old lady with DM2, hypertension, hyperlipidemia, asthma, insomnia, anxiety, obstructive sleep apnea, peripheral vascular disease, DVT right lower extremity, obesity, chronic kidney disease stage IIIa and follows up with [facility] is for cough, postnasal dripping, diarrhea which [...] disease stage IIIa and follows up with [facility] is for cough, postnasal dripping, diarrhea which [...] hydrated, soft diet and advance as tolerated. 07/31/2024 Diabetes mellitus due to underlying condition [...] and hemoglobin A1c and follows up with [facility] endocrinology. She is seen retort load expediter in the past. She follows up with [facility] and kidney function is stable. Foot care discussed with the patient. Hypertension/hype rlipidemia. Blood pressure well controlled and last lipid panel was within reasonable limits Obstructive sleep apnea. Continue on CPAP machine and no daytime sleepiness. Moderate persistent asthma. She stable when she follows up with servicing rep Anxiety/depressio n. Stable on current regimen. Considering her neuropathy she may be a good candidate for duloxetine which can be added to her regimen and she will check with her psychiatrist. Chronic kidney disease. She is stable and she follows up with [facility] to avoid NSAIDs. Right lower extremity swelling. It is nonpitting edema most likely lymphedema. She is on Eliquis and less likely to be a DVT and ultrasound lower extremity was negative. Vaginal candidiasis. She is given fluconazole and advised to control blood sugars 04/18/2024 Diabetes mellitus due to underlying condition [...] afternoon for breakthrough pains. She follows with [facility] Dr. Iraheta. Chronic kidney disease stage 3. -She does not appear to be in volume overload. Advised appropriate hydration. Avoid NSAIDs. She sees Dr. Lakhani. Asthma. -She uses her inhalers as needed. Follows with Dr. Shipley-[facility] Generalized anxiety disorder. -Mood is stable on Lorazepam 3 times a day. She has a psychiatrist and a therapist. GERD/gastroparesi s/dysphagia - Currently she is on omperazole 20m and Reglan 10 MG twice a day. I have increased omperazole to 40mg and advised patient to follow-up with her GI at [place]. She has an appt in May. MUSA: [...] the patient but was available upon request 09/17/2024 Pain in right leg (ICD-10 - [...] Eliquis. She was taken to [facility] ER where she had CT scan [...] Eliquis. She was taken to [facility] ER where she had CT scan of the head and x-ray of the right leg which were negative. Plan is as follows Hematoma of right wiseman. Discussed with the patient that it is superficial and she is low risk for DVTs. Keep the leg elevated and iced the leg. No other intervention is very 11/26/2024 Essential (primary) hypertension (ICD-10 - I10) Maribell is a 64-year-old lady with DM2, hypertension, hyperlipidemia, asthma, insomnia, anxiety, obstructive sleep apnea, peripheral vascular disease, DVT right lower extremity, obesity, chronic kidney disease stage IIIa and follows up with [facility] is here today for annual physical. Diabetes mellitus type 2 with diabetic neuropathy. Her last hemoglobin A1c was 7.1. She is stable on the above-mentioned regimen. She follows up with metalsmith helper. She is seeing retort load expediter in the past 1 year. She takes [...] for GLP-1. Advised to talk to her metalsmith helper to start the medication. EKG is normal [...] disease stage IIIa and follows up with [facility] is here today for annual physical. Diabetes mellitus type 2 with diabetic neuropathy. Her last hemoglobin A1c was 7.1. She is stable on the above-mentioned regimen. She follows up with metalsmith helper. She is seeing retort load expediter in the past 1 year. She takes [...] for GLP-1. Advised to talk to her metalsmith helper to start the medication. EKG is normal sinus rhythm at [address]pm with no acute ST or T wave changes., no bundle branch blocks, normal intervals She is up to date on age specific screening. She is full code and her is her healthcare proxy 09/25/2024 Acute URI (ICD-10 - J06.9) 05/14/2024 Pain in right leg (ICD-10 - [...] continue Eliquis 5 mg twice a day 08/16/2024 Pure hypercholesterolemi a, unspecified (ICD-10 - E78.00) 05/23/2024 Diabetes mellitus [...] with diabetic neuropathy. She follows up with [facility] endocrinology and according to patient her last A1c was within normal range. She is seen retort load expediter in the past. She follows up with [facility] and kidney function is stable. Foot care discussed with the patient. Hypertension/hype rlipidemia. Blood pressure well controlled and last lipid panel was within reasonable limits Obstructive sleep apnea. Continue on CPAP machine and no daytime sleepiness. Moderate persistent asthma. She stable when she follows up with servicing rep Anxiety/depressio n. Stable on current regimen. Considering her neuropathy she may be a good candidate for duloxetine which can be added to her regimen and she will check with her psychiatrist. Chronic kidney disease. She is stable and she follows up with [facility] to avoid NSAIDs. Right lower extremity swelling. [...] with diabetic neuropathy. She follows up with [facility] endocrinology and according to patient her last A1c was within normal range. She is seen retort load expediter in the past. She follows up with [facility] and kidney function is stable. Foot care discussed with the patient. Hypertension/hype rlipidemia. Blood pressure well controlled and last lipid panel was within reasonable limits Obstructive sleep apnea. Continue on CPAP machine and no daytime sleepiness. Moderate persistent asthma. She stable when she follows up with servicing rep Anxiety/depressio n. Stable on current regimen. Considering her neuropathy she may be a good candidate for duloxetine which can be added to her regimen and she will check with her psychiatrist. Chronic kidney disease. She is stable and she follows up with [facility] to avoid NSAIDs. Right lower extremity swelling. It is nonpitting edema most likely lymphedema. She is on Eliquis and less likely to be a DVT but considering her history we will do ultrasound right lower extremity in the next few days. 11/26/2024 Peripheral vascular disease, unspecified (ICD-10 - I73.9) 11/26/2024 Diabetes mellitus due to underlying condition with diabetic neuropathy, unspecified (ICD-10 - E08.40) Maribell is a 64-year-old lady with DM2, hypertension, hyperlipidemia, asthma, insomnia, anxiety, obstructive sleep apnea, peripheral vascular disease, DVT right lower extremity, obesity, chronic kidney disease stage IIIa and follows up with [facility] is here today for annual physical. Diabetes mellitus type 2 with diabetic neuropathy. Her last hemoglobin A1c was 7.1. She is stable on the above-mentioned regimen. She follows up with metalsmith helper. She is seeing retort load expediter in the past 1 year. She takes [...] for GLP-1. Advised to talk to her metalsmith helper to start the medication. EKG is normal [...] and hemoglobin A1c and follows up with [facility] endocrinology. She is seen retort load expediter in the past. She follows up with [facility] and kidney function is stable. Foot care discussed with the patient. Hypertension/hype rlipidemia. Blood pressure well controlled and last lipid panel was within reasonable limits Obstructive sleep apnea. Continue on CPAP machine and no daytime sleepiness. Moderate persistent asthma. She stable when she follows up with servicing rep Anxiety/depressio n. Stable on current regimen. Considering her neuropathy she may be a good candidate for duloxetine which can be added to her regimen and she will check with her psychiatrist. Chronic kidney disease. She is stable and she follows up with [facility] to avoid NSAIDs. Right lower extremity swelling. It is nonpitting edema most likely lymphedema. She is on Eliquis and less likely to be a DVT and ultrasound lower extremity was negative. Vaginal candidiasis. She is given fluconazole and advised to control blood sugars 04/18/2024 Essential (primary) hypertension (ICD-10 - I10) [...] afternoon for breakthrough pains. She follows with [facility] Dr. Iraheta. Chronic kidney disease stage 3. -She does not appear to be in volume overload. Advised appropriate hydration. Avoid NSAIDs. She sees Dr. Lakhani. Asthma. -She uses her inhalers as needed. Follows with Dr. Shipley-[facility] Generalized anxiety disorder. -Mood is stable on Lorazepam 3 times a day. She has a psychiatrist and a therapist. GERD/gastroparesi s/dysphagia - Currently she is on omperazole 20m and Reglan 10 MG twice a day. I have increased omperazole to 40mg and advised patient to follow-up with her GI at [place]. She has an appt in May. MUSA: [...] patient but was available upon request 07/31/2024 Other urogenital candidiasis (ICD-10 - B37.49) [...] and hemoglobin A1c and follows up with [facility] endocrinology. She is seen retort load expediter in the past. She follows up with [facility] and kidney function is stable. Foot care discussed with the patient. Hypertension/hype rlipidemia. Blood pressure well controlled and last lipid panel was within reasonable limits Obstructive sleep apnea. Continue on CPAP machine and no daytime sleepiness. Moderate persistent asthma. She stable when she follows up with servicing rep Anxiety/depressio n. Stable on current regimen. Considering her neuropathy she may be a good candidate for duloxetine which can be added to her regimen and she will check with her psychiatrist. Chronic kidney disease. She is stable and she follows up with [facility] to avoid NSAIDs. Right lower extremity swelling. It is nonpitting edema most likely lymphedema. She is on Eliquis and less likely to be a DVT and ultrasound lower extremity was negative. Vaginal candidiasis. She is given fluconazole and advised to control blood sugars 04/18/2024 Chronic embolism and thrombosis of unspecified [...] afternoon for breakthrough pains. She follows with [facility] Dr. Iraheta. Chronic kidney disease stage 3. -She does not appear to be in volume overload. Advised appropriate hydration. Avoid NSAIDs. She sees Dr. Lakhani. Asthma. -She uses her inhalers as needed. Follows with Dr. Shipley-[facility] Generalized anxiety disorder. -Mood is stable on Lorazepam 3 times a day. She has a psychiatrist and a therapist. GERD/gastroparesi s/dysphagia - Currently she is on omperazole 20m and Reglan 10 MG twice a day. I have increased omperazole to 40mg and advised patient to follow-up with her GI at [place]. She has an appt in May. MUSA: [...] and hemoglobin A1c and follows up with [facility] endocrinology. She is seen retort load expediter in the past. She follows up with [facility] and kidney function is stable. Foot care discussed with the patient. Hypertension/hype rlipidemia. Blood pressure well controlled and last lipid panel was within reasonable limits Obstructive sleep apnea. Continue on CPAP machine and no daytime sleepiness. Moderate persistent asthma. She stable when she follows up with servicing rep Anxiety/depressio n. Stable on current regimen. Considering her neuropathy she may be a good candidate for duloxetine which can be added to her regimen and she will check with her psychiatrist. Chronic kidney disease. She is stable and she follows up with [facility] to avoid NSAIDs. Right lower extremity swelling. [...] disease stage IIIa and follows up with [facility] is here today for annual physical. Diabetes mellitus type 2 with diabetic neuropathy. Her last hemoglobin A1c was 7.1. She is stable on the above-mentioned regimen. She follows up with metalsmith helper. She is seeing retort load expediter in the past 1 year. She takes good care of her right leg and foot. She is on appropriate medications. Hypertension/hype rlipidemia. Blood pressure well controlled on current regimen and she is on statins and THADDESU. Generalized anxiety disorder. She follows up with [...] for GLP-1. Advised to talk to her metalsmith helper to start the medication. EKG is normal sinus rhythm at [address] bpm with no acute ST or T wave changes., no bundle branch blocks, normal intervals She is up to date on age specific screening. She is full code and her is her healthcare proxy 05/23/2024 Obstructive sleep apnea (adult) (pediatric) (ICD-10 - G47.33) Maribell is 63 years old lady with DM type II, hypertension, hyperlipidemia, morbid persistent asthma, generalized anxiety disorder/depressi on, chronic kidney disease stage IIIa, trigeminal neuralgia, obstructive sleep apnea, chronic pain syndrome is here for follow-up. Plan is as follows Diabetes mellitus type 2 with diabetic neuropathy. She follows up with [facility] endocrinology and according to patient her last A1c was within normal range. She is seen retort load expediter in the past. She follows up with [facility] and kidney function is stable. Foot care discussed with the patient. Hypertension/hype rlipidemia. Blood pressure well controlled and last lipid panel was within reasonable limits Obstructive sleep apnea. Continue on CPAP machine and no daytime sleepiness. Moderate persistent asthma. She stable when she follows up with servicing rep Anxiety/depressio n. Stable on current regimen. Considering her neuropathy she may be a good candidate for duloxetine which can be added to her regimen and she will check with her psychiatrist. Chronic kidney disease. She is stable and she [facility] with [facility] to avoid NSAIDs. Right lower extremity swelling. [...] with diabetic neuropathy. She follows up with [facility] endocrinology and according to patient her last A1c was within normal range. She is seen retort load expediter in the past. She follows up with [facility] and kidney function is stable. Foot care discussed with the patient. Hypertension/hype rlipidemia. Blood pressure well controlled and last lipid panel was within reasonable limits Obstructive sleep apnea. Continue on CPAP machine and no daytime sleepiness. Moderate persistent asthma. She stable when she follows up with servicing rep Anxiety/depressio n. Stable on current regimen. Considering her neuropathy she may be a good candidate for duloxetine which can be added to her regimen and she will check with her psychiatrist. Chronic kidney disease. She is stable and she follows up with [facility] to avoid NSAIDs. Right lower extremity swelling. It is nonpitting edema most likely lymphedema. She is on Eliquis and less likely to be a DVT but considering her history we will do ultrasound right lower extremity in the next few days. 11/26/2024 Chronic kidney disease, stage 3a (ICD-10 - N18.31) Maribell is a 64-year-old lady with DM2, hypertension, hyperlipidemia, asthma, insomnia, anxiety, obstructive sleep apnea, peripheral vascular disease, DVT right lower extremity, obesity, chronic kidney disease stage IIIa and follows up with [facility] is here today for annual physical. Diabetes mellitus type 2 with diabetic neuropathy. Her last hemoglobin A1c was 7.1. She is stable on the above-mentioned regimen. She follows up with metalsmith helper. She is seeing retort load expediter in the past 1 year. She takes [...] for GLP-1. Advised to talk to her metalsmith helper to start the medication. EKG is normal sinus rhythm at [address] with no acute [address] or T wave changes., no bundle branch blocks, normal intervals She is up to date on age specific screening. She is full code and her is her healthcare proxy 04/18/2024 Radiculopathy, lumbosacral region (ICD-10 - M54.17) [...] afternoon for breakthrough pains. She follows with [facility] Dr. Iraheta. Chronic kidney disease stage 3. -She does not appear to be in volume overload. Advised appropriate hydration. Avoid NSAIDs. She sees Dr. Lakhani. Asthma. -She uses her inhalers as needed. Follows with Dr. Shipley-[facility] Generalized anxiety disorder. -Mood is stable on Lorazepam 3 times a day. She has a psychiatrist and a therapist. GERD/gastroparesi s/dysphagia - Currently she is on omperazole 20m and Reglan 10 MG twice a day. I have increased omperazole to 40mg and advised patient to follow-up with her GI at [place]. She has an appt in May. MUSA: [...] and hemoglobin A1c and follows up with [facility] endocrinology. She is seen retort load expediter in the past. She follows up with [facility] and kidney function is stable. Foot care discussed with the patient. Hypertension/hype rlipidemia. Blood pressure well controlled and last lipid panel was within reasonable limits Obstructive sleep apnea. Continue on CPAP machine and no daytime sleepiness. Moderate persistent asthma. She stable when she follows up with servicing rep Anxiety/depressio n. Stable on current regimen. Considering her neuropathy she may be a good candidate for duloxetine which can be added to her regimen and she will check with her psychiatrist. Chronic kidney disease. She is stable and she follows up with [facility] to avoid NSAIDs. Right lower extremity swelling. [...] afternoon for breakthrough pains. She follows with [facility] Dr. Iraheta. Chronic kidney disease stage 3. -She does not appear to be in volume overload. Advised appropriate hydration. Avoid NSAIDs. She sees Dr. Lakhani. Asthma. -She uses her inhalers as needed. Follows with Dr. Shipley-[facility] Generalized anxiety disorder. -Mood is stable on Lorazepam 3 times a day. She has a psychiatrist and a therapist. GERD/gastroparesi s/dysphagia - Currently she is on omperazole 20m and Reglan 10 MG twice a day. I have increased omperazole to 40mg and advised patient to follow-up with her GI at [place]. She has an appt in May. MUSA: [...] patient but was available upon request 07/31/2024 Mild persistent asthma, uncomplicated (ICD-10 - [...] and hemoglobin A1c and follows up with [facility] endocrinology. She is seen retort load expediter in the past. She follows up with [facility] and kidney function is stable. Foot care discussed with the patient. Hypertension/hype rlipidemia. Blood pressure well controlled and last lipid panel was within reasonable limits Obstructive sleep apnea. Continue on CPAP machine and no daytime sleepiness. Moderate persistent asthma. She stable when she follows up with servicing rep Anxiety/depressio n. Stable on current regimen. Considering her neuropathy she may be a good candidate for duloxetine which can be added to her regimen and she will check with her psychiatrist. Chronic kidney disease. She is stable and she follows up with [facility] to avoid NSAIDs. Right lower extremity swelling. [...] disease stage IIIa and follows up with [facility] is here today for annual physical. Diabetes mellitus type 2 with diabetic neuropathy. Her last hemoglobin A1c was 7.1. She is stable on the above-mentioned regimen. She follows up with metalsmith helper. She is seeing retort load expediter in the past 1 year. She takes [...] for GLP-1. Advised to talk to her metalsmith helper to start the medication. EKG is normal sinus rhythm at [address]pm with no acute ST or T wave changes., no bundle branch blocks, normal intervals She is up to date on age specific screening. She is full code and her is her healthcare proxy 05/23/2024 Mild persistent asthma, uncomplicated (ICD-10 - J45.30) Maribell is 63 years old lady with DM type II, hypertension, hyperlipidemia, morbid persistent asthma, generalized anxiety disorder/depressi on, chronic kidney disease stage IIIa, trigeminal neuralgia, obstructive sleep apnea, chronic pain syndrome is here for follow-up. Plan is as follows Diabetes mellitus type 2 with diabetic neuropathy. She follows up with [facility] endocrinology and according to patient her last A1c was within normal range. She is seen retort load expediter in the past. She follows up with [facility] and kidney function is stable. Foot care discussed with the patient. Hypertension/hype rlipidemia. Blood pressure well controlled and last lipid panel was within reasonable limits Obstructive sleep apnea. Continue on CPAP machine and no daytime sleepiness. Moderate persistent asthma. She stable when she follows up with servicing rep Anxiety/depressio n. Stable on current regimen. Considering her neuropathy she may be a good candidate for duloxetine which can be added to her regimen and she will check with her psychiatrist. Chronic kidney disease. She is stable and she follows up with [facility] to avoid NSAIDs. Right lower extremity swelling. [...] with diabetic neuropathy. She follows up with [facility] endocr[facility]ology and according to patient her last A1c was within normal range. She is seen retort load expediter in the past. She follows up with [facility] and kidney function is stable. Foot care discussed with the patient. Hypertension/hype rlipidemia. Blood pressure well controlled and last lipid panel was within reasonable limits Obstructive sleep apnea. Continue on CPAP machine and no daytime sleepiness. Moderate persistent asthma. She stable when she follows up with servicing rep Anxiety/depressio n. Stable on current regimen. Considering her neuropathy she may be a good candidate for duloxetine which can be added to her regimen and she will check with her psychiatrist. Chronic kidney disease. She is stable and she follows up with [facility] to avoid NSAIDs. Right lower extremity swelling. It is nonpitting edema most likely lymphedema. She is on Eliquis and less likely to be a DVT but considering her history we will do ultrasound right lower extremity in the next few days. 11/26/2024 Mild persistent asthma, uncomplicated (ICD-10 - J45.30) Maribell is a 64-year-old lady with DM2, hypertension, hyperlipidemia, asthma, insomnia, anxiety, obstructive sleep apnea, peripheral vascular disease, DVT right lower extremity, obesity, chronic kidney disease stage IIIa and follows [facility] with [facility] is here today for annual physical. Diabetes mellitus type 2 with diabetic neuropathy. Her last hemoglobin A1c was 7.1. She is stable on the above-mentioned regimen. She follows up with metalsmith helper. She is seeing retort load expediter in the past 1 year. She takes [...] for GLP-1. Advised to talk to her metalsmith helper to start the medication. EKG is normal [...] afternoon for breakthrough pains. She follows with [facility] Dr. Iraheta. Chronic kidney disease stage 3. -She does not appear to be in volume overload. Advised appropriate hydration. Avoid NSAIDs. She sees Dr. Lakhani. Asthma. -She uses her inhalers as needed. Follows with Dr. Shipley-[facility] Generalized anxiety disorder. -Mood is stable on Lorazepam 3 times a day. She has a psychiatrist and a therapist. GERD/gastroparesi s/dysphagia - Currently she is on omperazole 20m and Reglan 10 MG twice a day. I have increased omperazole to 40mg and advised patient to follow-up with her GI at [place]. She has an appt in May. MUSA: [...] and hemoglobin A1c and follows up with [facility] endocrinology. She is seen retort load expediter in the past. She follows up with [facility] and kidney function is stable. Foot care discussed with the patient. Hypertension/hype rlipidemia. Blood pressure well controlled and last lipid panel was within reasonable limits Obstructive sleep apnea. Continue on CPAP machine and no daytime sleepiness. Moderate persistent asthma. She stable when she follows up with servicing rep Anxiety/depressio n. Stable on current regimen. Considering her neuropathy she may be a good candidate for duloxetine which can be added to her regimen and she will check with her psychiatrist. Chronic kidney disease. She is stable and she follows up with [facility] to avoid NSAIDs. Right lower extremity swelling. [...] and hemoglobin A1c and follows up with [facility] endocrinology. She is seen retort load expediter in the past. She follows up with [facility] and kidney function is stable. Foot care discussed with the patient. Hypertension/hype rlipidemia. Blood pressure well controlled and last lipid panel was within reasonable limits Obstructive sleep apnea. Continue on CPAP machine and no daytime sleepiness. Moderate persistent asthma. She stable when she follows up with servicing rep Anxiety/depressio n. Stable on current regimen. Considering her neuropathy she may be a good candidate for duloxetine which can be added to her regimen and she will check with her psychiatrist. Chronic kidney disease. She is stable and she follows up with [facility] to avoid NSAIDs. Right lower extremity swelling. [...] afternoon for breakthrough pains. She follows with [facility] Dr. Iraheta. Chronic kidney disease stage 3. -She does not appear to be in volume overload. Advised appropriate hydration. Avoid NSAIDs. She sees Dr. Lakhani. Asthma. -She uses her inhalers as needed. Follows with Dr. Shipley-[facility] Generalized anxiety disorder. -Mood is stable on Lorazepam 3 times a day. She has a psychiatrist and a therapist. GERD/gastroparesi s/dysphagia - Currently she is on omperazole 20m and Reglan 10 MG twice a day. I have increased omperazole to 40mg and advised patient to follow-up with her GI at [place]. She has an appt in May. MUSA: [...] disease stage IIIa and follows up with [facility] is here today for annual physical. Diabetes mellitus type 2 with diabetic neuropathy. Her last hemoglobin A1c was 7.1. She is stable on the above-mentioned regimen. She follows up with metalsmith helper. She is seeing retort load expediter in the past 1 year. She takes [...] for GLP-1. Advised to talk to her metalsmith helper to start the medication. EKG is normal sinus rhythm at [address]pm with no acute ST or T wave changes., no bundle branch blocks, normal intervals She is up to date on age specific screening. She is full code and her is her healthcare proxy 05/23/2024 Chronic kidney disease, stage 3 unspecified (ICD-10 - N18.30) Maribell is 63 years old lady with DM type II, hypertension, hyperlipidemia, morbid persistent asthma, generalized anxiety disorder/depressi on, chronic kidney disease stage IIIa, trigeminal neuralgia, obstructive sleep apnea, chronic pain syndrome is here for follow-up. Plan is as follows Diabetes mellitus type 2 with diabetic neuropathy. She follows up with [facility] endocrinology and according to patient her last A1c was within normal range. She is seen retort load expediter in the past. She follows up with [facility] and kidney function is stable. Foot care discussed with the patient. Hypertension/hype rlipidemia. Blood pressure well controlled and last lipid panel was within reasonable limits Obstructive sleep apnea. Continue on CPAP machine and no daytime sleepiness. Moderate persistent asthma. She stable when she follows up with servicing rep Anxiety/depressio n. Stable on current regimen. Considering her neuropathy she may be a good candidate for duloxetine which can be added to her regimen and she will check with her psychiatrist. Chronic kidney disease. She is stable and she follows up with [facility] to avoid NSAIDs. Right lower extremity swelling. It is nonpitting edema most likely lymphedema. She is on Eliquis and less likely to be a DVT but considering her history we will do ultrasound right lower extremity in the next few days. 11/26/2024 Chronic embolism and thrombosis of unspecified deep veins of unspecified lower extremity (ICD-10 - I82.509) Maribell is a 64-year-old lady with DM2, hypertension, hyperlipidemia, asthma, insomnia, anxiety, obstructive sleep apnea, peripheral vascular disease, DVT right lower extremity, obesity, chronic kidney disease stage IIIa and follows up with [facility] is here today for annual physical. Diabetes mellitus type 2 with diabetic neuropathy. Her last hemoglobin A1c was 7.1. She is stable on the above-mentioned regimen. She follows up with metalsmith helper. She is seeing retort load expediter in the past 1 year. She takes [...] for GLP-1. Advised to talk to her metalsmith helper to start the medication. EKG is normal [...] afternoon for breakthrough pains. She follows with [facility] Dr. Iraheta. Chronic kidney disease stage 3. -She does not appear to be in volume overload. Advised appropriate hydration. Avoid NSAIDs. She sees Dr. Lakhani. Asthma. -She uses her inhalers as needed. Follows with Dr. Shipley-[facility] Generalized anxiety disorder. -Mood is stable on Lorazepam 3 times a day. She has a psychiatrist and a therapist. GERD/gastroparesi s/dysphagia - Currently she is on omperazole 20m and Reglan 10 MG twice a day. I have increased omperazole to 40mg and advised patient to follow-up with her GI at [place]. She has an appt in May. MUSA: [...] afternoon for breakthrough pains. She follows with [facility] Dr. Iraheta. Chronic kidney disease stage 3. -She does not appear to be in volume overload. Advised appropriate hydration. Avoid NSAIDs. She sees Dr. Lakhani. Asthma. -She uses her inhalers as needed. Follows with Dr. Shipley-[facility] Generalized anxiety disorder. -Mood is stable on Lorazepam 3 times a day. She has a psychiatrist and a therapist. GERD/gastroparesi s/dysphagia - Currently she is on omperazole 20m and Reglan 10 MG twice a day. I have increased omperazole to 40mg and advised patient to follow-up with her GI at [place]. She has an appt in May. MUSA: [...] afternoon for breakthrough pains. She follows with [facility] Dr. Iraheta. Chronic kidney disease stage 3. -She does not appear to be in volume overload. Advised appropriate hydration. Avoid NSAIDs. She sees Dr. Lakhani. Asthma. -She uses her inhalers as needed. Follows with Dr. Shipley-[facility] Generalized anxiety disorder. -Mood is stable on Lorazepam 3 times a day. She has a psychiatrist and a therapist. GERD/gastroparesi s/dysphagia - Currently she is on omperazole 20m and Reglan 10 MG twice a day. I have increased omperazole to 40mg and advised patient to follow-up with her GI at [place]. She has an appt in May. MUSA: [...] afternoon for breakthrough pains. She follows with [facility] Dr. Iraheta. Chronic kidney disease stage 3. -She does not appear to be in volume overload. Advised appropriate hydration. Avoid NSAIDs. She sees Dr. Lakhani. Asthma. -She uses her inhalers as needed. Follows with Dr. Shipley-[facility] Generalized anxiety disorder. -Mood is stable on Lorazepam 3 times a day. She has a psychiatrist and a therapist. GERD/gastroparesi s/dysphagia - Currently she is on omperazole 20m and Reglan 10 MG twice a day. I have increased omperazole to 40mg and advised patient to follow-up with her GI at [place]. She has an appt in May. MUSA: [...] afternoon for breakthrough pains. She follows with [facility] Dr. Iraheta. Chronic kidney disease stage 3. -She does not appear to be in volume overload. Advised appropriate hydration. Avoid NSAIDs. She sees Dr. Lakhani. Asthma. -She uses her inhalers as needed. Follows with Dr. Shipley-[facility] Generalized anxiety disorder. -Mood is stable on Lorazepam 3 times a day. She has a psychiatrist and a therapist. GERD/gastroparesi s/dysphagia - Currently she is on omperazole 20m and Reglan 10 MG twice a day. I have increased omperazole to 40mg and advised patient to follow-up with her GI at [place]. She has an appt in May. MUSA: [...] afternoon for breakthrough pains. She follows with [facility] Dr. Iraheta. Chronic kidney disease stage 3. -She does not appear to be in volume overload. Advised appropriate hydration. Avoid NSAIDs. She sees Dr. Lakhani. Asthma. -She uses her inhalers as needed. Follows with Dr. Shipley-[facility] Generalized anxiety disorder. -Mood is stable on Lorazepam 3 times a day. She has a psychiatrist and a therapist. GERD/gastroparesi s/dysphagia - Currently she is on omperazole 20m and Reglan 10 MG twice a day. I have increased omperazole to 40mg and advised patient to follow-up with her GI at [place]. She has an appt in May. MUSA: [...] Provider Name:ELLA MICHAEL , 05/29/2025 10:30:00 AM, [address] [place] [address], [id number], Insurance Providers Payer Name Payer Address Payer Phone Subscriber Number Group Number Insured Name Patient Relationship to Insured Coverage Start Date Coverage End Date [facility] [address] [place] [phone] [id number] Maribell Taylor Self - patient is the insured Medical (General) History Medical History History ICD Code hypertension, benign hyperlipidemia IDDM T 2, [facility] endo Urinary incontinence and she sees Dr. England at [place] Left shoulder pain and she sees Dr. Alida villa and she is also seen Dr. Diaz Asthma and she sees Pul at [facility] Generalized anxiety disorder and she is seen by a psychiatrist and she goes to [facility] Pain management and has seen Dr. Montiel at [facility] in past Peripheral arterial disease and status post amputation below knee joint currently on Coumadin and goes to Coumadin clinic Lumbar radiculopathy on oxycodone 30 mg 3 times a day DVT leg LE sleep apnea see Pul [place] [facility] Left leg amputation below knee joint Chronic kidney disease stage 3, Dr. Janis smalls Personal history of COVID-19 [facility] Surgical History Surgery Date(Month/Year) rotator cuff tear repair September 2017 wrist surgery below the knee amputation 07 left side for Blood clots 2/2 to OCP and pt was smoking rt toes amputation 2004 right wrist synovial cyst resection, Dr. Henriquez 2021 right carpal tunnel decompression, Dr. Flores hadley 2021 Hospitalization History Reason Date(Month/Year)
--- OUTSIDE RECORDS SUMMARY | 2025-03-15 06:22 | XMS_ITS | Clinical Summary ---
Author Organization [facility] Address [address] [address] Phone Care Team Providers Care Coal Sample Tester Name Role Phone Samuel Hilario MD Primary Care Provider [phone] Allergies Active Allergy Reactions Criticality Noted Date Comments Aspirin Anaphylaxis,Hives High 05/26/2021 Gabapentin 05/26/2021 Pregabalin 03/22/2022 Menthol-Zinc Oxide Other (see comments) 022 Naproxen Hives 05/26/2021 Oxycodone-Acetaminophen Itching 05/26/2021 Valproic Acid Anaphylaxis High 05/26/2021 Hydrocodone-Acetaminophen Itching 05/26/2021 Medications glucose blood test strip See Instructions, # 100 each, Maintenance, Test three times daily, 08/21/17 18:59:38 EDT, Compound 8 Active cholecalciferol (VITAMIN D-3) 50 MCG (1999 [...] HFA) 110 MCG/ACT inhaler Inhale 9 Active insulin glargine (LANTUS) 100 UNIT/ML injection [...] BY MOUTH ONCE A DAY 2 Active fluticasone (FLONASE) 50 MCG/ACT nasal spray 2 Active hydrOXYzine (ATARAX) 25 MG tablet TAKE ONE TABLET BY MOUTH 3 (THREE) TIMES A DAY NEEDED 1 Active Comfort EZ Pen [place] 32G X 4 MM [facility] 2 Active Easy Comfort Lancets [facility] 2 Active gemfibrozil (LOPID) 600 MG tablet TAKE ONE TABLET BY MOUTH two (2) times a day 30 MINUTES BEFORE morning AND EVENING MEALS 2 Active omeprazole (PriLOSEC) [address] [...] 5 days. 10 tablet 1 2 Active solifenacin (VESICARE) 10 MG tablet [...] dys then take 2nd dose 3 Active diclofenac (VOLTAREN) 75 MG EC tablet [...] (MOUNJARO SC) Inject under the skin Active Active Problems Problem Noted Date Diagnosed [...] Obesity 05/26/2021 Obstructive sleep apnea syndrome 05/26/2021 Pain of shoulder region 05/26/2021 Type 2 diabetes mellitus 05/26/2021 Thrombophilia [...] incontinence 03/29/2014 Overview (09/06/2022): Darline. Changed to [place] Panic attack 03/29/2014 Overview (09/06/2022): Sees psych [...] Visit [facility] [address] [address] Racheal Wood ARNP Stage 3a chronic kidney disease (HCC) (Primary Dx); Hypertension; Persistent proteinuria from Last 3 Months [...] Office Visit [facility] [address] [phone] Racheal Wood ARNP [address] [phone] Health Maintenance Due Date Last Done Comments [...] 09/14/2021 06/17/2021, 02/07 Influenza Vaccine (#1) 2025 4, 05/10/2021, 04/20/2018, Additional history exists Pneumococcal Vaccine: [...] Creatinine, Ur 144.4 Not Estab. mg/dL [facility] Protein, Ur 44.7 Not Estab. mg/dL [facility] Urine Protein/Creati nine Ratio 310(H) 0 - 200 mg/g creat [facility] Urine specimen (specimen) Urine specimen obtained by clean catch procedure / Unknown 01/31/2025 4:00 PM EDT 01/31/2025 us Racheal [facility]UCK[facility] LAB URINE ORDERABLES Final Result [facility] [address] [place] [address] * (ABNORMAL) Urine Albumin / Creatinine Ratio (01/31/2025 4:00 PM EDT) Albumin, Urine 117.0 Not Estab. ug/mL [facility] Albumin/Creatin ine Ratio 81(H) 0 - 29 mg/g creat [facility] Comment: Normal: 0 - 29 Moderately increased: 30 - 300 Severely increased: >300 Urine specimen (specimen) Urine specimen obtained by clean catch procedure / Unknown 01/31/2025 4:00 PM EDT 01/31/2025 Racheal Wood [facility] LAB URINE ORDERABLES Final Result [facility] [address] [place] [address] * CBC (01/31/2025 4:00 PM EDT) WBC 9.8 3.4 - 10.8 x10E3/uL [facility] RBC 4.30 3.77 - 5.28 x10E6/uL [facility] Hemoglobin 12.9 11.1 - 15.9 g/dL [facility] Hematocrit 39.9 34.0 - 46.6 % [facility] MCV 93 79 - 97 fL [facility] MCH 30.0 26.6 - 33.0 pg [facility] MCHC 32.3 31.5 - 35.7 g/dL [facility] RDW 12.9 11.7 - 15.4 % [facility] Platelets 215 150 - 450 x10E3/uL [facility] Blood specimen (specimen) Venous blood / Unknown 01/31/2025 4:00 PM EDT 01/31/2025 Racheal [facility] LAB BLOOD ORDERABLES Final Result Performing Organization Address City/[facility]/ZIP Co de Phone Number [facility] [address] [place] [address] * PTH, intact (01/31/2025 4:00 PM EDT) PTH 28 15 - 65 pg/mL [facility] Blood specimen (specimen) Venous blood / Unknown 01/31/2025 4:00 PM EDT 01/31/2025 Racheal [facility] LAB BLOOD ORDERABLES Final Result Performing Organization Address [facility]/ZIP Co de Phone Number [facility] [address] [place] [address] * Magnesium (01/31/2025 4:00 PM EDT) Magnesium 1.7 1.6 - 2.3 mg/dL [facility] Blood specimen (specimen) Venous blood / Unknown 01/31/2025 4:00 PM EDT 01/31/2025 Racheal [facility] LAB BLOOD ORDERABLES Final Result Performing Organization Address City/[facility]/ZIP Co de Phone Number [facility] [address] [place] [address] * (ABNORMAL) Renal function panel (01/31/2025 4:00 PM EDT) Glucose 261(H) 70 - 99 mg/dL [facility] BUN 23 8 - 27 mg/dL [facility] Creatinine 1.20(H) 0.57 - 1.00 mg/dL [facility] eGFR CKD-EPI CR 2020 51(L) >59 mL/min/1.7 3 [facility] BUN/Creatinine Ratio 19 12 - 28 [facility] Sodium 139 134 - 144 mmol/L [facility] Potassium 4.4 3.5 - 5.2 mmol/L [facility] Chloride 101 96 - 106 mmol/L [facility] Bicarbonate (CO2) 22 20 - 29 mmol/L [facility] Calcium 9.6 8.7 - 10.3 mg/dL [facility] Albumin 4.1 3.9 - 4.9 g/dL [facility] Phosphorus 3.1 3.0 - 4.3 mg/dL [facility] Blood specimen (specimen) Venous blood / Unknown 01/31/2025 4:00 PM EDT 01/31/2025 Racheal Wood [facility] LAB BLOOD ORDERABLES Final Result [facility] [address] [place] [address] * (ABNORMAL) Hemoglobin A1c (06/17/2021 4:28 PM EST) Hemoglobin A1C 9.2(H) (4.0-5.6) % [facility] Comment: MONITORING: In known diabetic patients, hemoglobin A1c targets should be discussed with health care provider. DIAGNOSTIC USE: The [place] [employer] Association (ADA) and the World Health [...] Supplement 1 Testing performed or reported by [facility], a Service of [facility], [address] [place] [address] Bertin Bethea MD, Entry Level Business Analyst [facility]# [id number] Blood specimen (specimen) Venous blood / Unknown 06/17/2021 4:28 PM EST 06/17/2021 4:29 PM EST us Feroz Lakhani MD LAB BLOOD ORDERABLES Final Re sult [facility] from Last 3 Months or Most Recently Relevant to Health Maintenance Insurance [place] Medicaid Medicaid Care Teams Coal Sample Tester Relationship Specialty Start Date End Date Samuel Hilario MD [address] [place] [address] PCP - General Internal Medicine 05/26/21
--- OUTSIDE RECORDS SUMMARY | 2025-03-15 06:22 | XMS_ITS | Data Portability ---
Author Organization [place] [facility], Allergy Address [address] [address] Care Team Providers Care Orthopedic Assistant Name Role Phone ELLA MICHAEL Primary Care [...] Details Last Modified Time Details Appointments Establis [facility] 15 2024 02:15P Mocnho NELSON MD Not available Not available Not available Lab None recorded . Referral None recorded . Procedures None recorded . Surgeries None recorded . Imaging MRI, brain, w/wo contrast - prefers [facility] eld 2023 024 david [facility] ([facility]), [address], [place], [address], 01/03/2024 14:20:34 Medication Orders clotrima zole-bet amethaso ne 1 %-0.05 % topical cream 2023 024 [facility] [place], [place] - [phone], [address] [facility], [place], [address], 02/29/2024 15:08:30 Patient TargetsNo targets recorded. Patient InstructionsNo instructions recorded. Reason for Referral None Reported. Results Created Date Observation Date Name Description Value Unit Range Abnormal Flag Note LastModifiedBy Organization Detail LastModifiedTime 12/13/19 24 12/12/2023 MRI, brain + brain stem, w/wo contr ast [facility] Access ion Number : [id number] Patien t Name: Patel, Maribell Meadowsa l Record Number : [id number] Date of : 1960 Date of Exam: 2023 Referr ing Physic kellen: Duran Estes [facility] [address] [place] [address] Exam: MR Brain (C-/C+ ) CPT 02569 Room Descri ption: [facility] 3.0T MR Brain (C-/C+ ) CPT 45762 INDICA TION / [facility]IN[facility] ON: [...] onical ly Signed By: Abdulaziz Parmar MD [facility] ([facility]) [address], [place], [place], [address], 12/31/2023 04:57:08 12/28/19 24 07/18/2023 imagi ng/di [...] contr ast No observ ation record ed. [facility] Radiology ([facility]) [address] [address], [place], [address], 06/14/2024 10:19:22 06/20/19 25 05/30/2024 MRI, cervi elina spine , w/o contr ast No observ ation record ed. [email or web address] Not Available 2024 16:10:50 09/18/19 25 09/13/2024 audio gram No observ ation record ed. [email or web address] Not Available 2024 11:25:21 Result Notes Documentation Provider Name and Address Organization Details Recorded Time Mri, Brain + Brain Stem, W/wo Contrast : [facility] Accession Number: [id number] Patient Name: Maribell Sweeney Date of : 1960 Date of Exam: 12-12-2023 Referring Physician: Duran [facility] [address] [address] Exam: MR Brain (C-/C+) CPT 94252 Room Description: [facility] 3.0T MR Brain (C-/C+) CPT 71786 INDICATION / CLINICAL QUESTION: Trigeminal neuralgia TECHNIQUE: [...] disease. Electronically Signed By: Kaleigh NELSON MD [address] [place] [address], [phone], [facility] - [facility] 12/31/2023 04:57:08 Problems Name Problem SNOMED Code Status Onset Date Resolution Date Notes Provider Name and Address Organization Details Recorded Time Dysphagia 00715832 Active 2017 Dysphagia , unspecifi ed; Note: Date Diagnosed : 10/26/2017 3:35 PM (R13.10) Not Available [facility] 4 02:15:17 Gastroeso phageal reflux disease without esophagit is 582942611 Active 2017 Gastro-es ophageal reflux disease without esophagit is; Note: Date Diagnosed : 10/26/2017 3:36 PM (K21.9) Not Available [facility] 4 02:13:57 Disorder of nasal sinus 7117756 Active 2019 Unspecifi ed disorder of nose and nasal sinuses; Note: Date Diagnosed : 12/11/2019 7:07 PM (J34.9) Not Available [facility] 4 02:14:50 Disorder of the nose 62857975 Active 2019 Unspecifi ed disorder of nose and nasal sinuses; Note: Date Diagnosed : 12/11/2019 7:07 PM (J34.9) Not Available [facility] 4 02:14:50 Acute maxillary sinusitis 53547461 Active 2019 Acute maxillary sinusitis , unspecifi ed; Note: Date Diagnosed : 12/11/2019 7:07 PM (J01.00) Not Available [facility] 4 02:13:26 Itching of skin 652302690 Active 2019 Pruritus, unspecifi ed; Note: Date Diagnosed : 12/17/2019 9:41 AM (L29.9) Not Available [facility] 4 02:15:04 Diffuse otitis externa 83223774 Active 2020 Diffuse otitis externa, left ear; Note: Date Diagnosed : 07/17/2020 5:26 PM (H60.312) Note: Date Diagnosed : 07/17/2020 5:26 PM (H60.312) Not Available [facility] 4 00:49:08 Sensorine ural hearing loss 68709228 Active 2020 Sensorine ural hearing loss, unilatera l, left ear, with unrestric trisha hearing on the contralat eral side; Note: Date Diagnosed : 08/04/2020 11:03 AM (H90.42) Not Available [facility] 4 02:14:29 Otalgia of left ear 5448992617 Active 2020 Otalgia, left ear; Note: Date Diagnosed : 04/08/2021 3:18 PM (H92.02) Not Available [facility] 4 02:15:47 Pain of left temporoma ndibular joint 49539830591 608071 Active 2020 Arthralgi a of left temporoma ndibular joint; Note: Date Diagnosed : 04/08/2021 3:18 PM (M26.622) Not Available [facility] 4 02:15:35 Tinnitus of left ear 98682264124 06 Active 2020 Tinnitus, left ear; Note: Date Diagnosed : 04/08/2021 3:18 PM (H93.12) Not Available [facility] 4 02:13:36 Type 2 diabetes mellitus without complicat ion 650821897 Active 2023 Type 2 diabetes mellitus without complicat ions; Note: Date Diagnosed : 06/13/2023 1:31 PM (E11.9) Not Available [facility] 4 02:15:17 Localized masticato ry muscle soreness 779659589 Active 2023 Myalgia of masticati on muscle; Note: Date Diagnosed : 07/26/2023 2:53 PM (M79.11) Not Available [facility] 4 02:15:11 Trigemina l neuralgia 83540092 Active 2023 DURAN ENLSON MD [address] [place] [address], [facility] [place], [address] , [facility] - [facility] 4 18:40:58 Abnormal auditory perceptio n 49729673 Active 2024 LEXIS MONET, AuD [address] [facility],[address] [address], [place], [address] , [facility] 15:01:40 Problem Notes None recorded. Procedures Surgical History Date Name Laterality Status Provider Name and Address Organization Details Recorded Time 09/13/2024 Air & Speech Audio with Tymps - 92459, 76337 & 91831 completed LEXIS MONET, AuD [address] [facility] [address], [place], [address], [facility] 09/13/2024 15:01:28 Imaging Results None recorded. Procedure Notes None recorded. Medical Equipment None Reported. Allergies Allergen ID Allergen Name Allergen Category Reaction Reaction Severity Criticality Documentation Date Start Date Code Code System Note Provider Name and Address Organization Details Recorded Time 21759 aspirin medicatio n other Not available Not available 09/20/2023 1191 RxNorm React ion: unkno wn, unspe cifie d;; Not Available [facility] 4 00:49:02 56991 acetamino phen / oxycodone medicatio n other Not available Not available 09/20/2023 72710 3 RxNorm React ion: unkno wn, unspe cifie d;; Not Available [facility] 4 00:49:48 93753 naproxen medicatio n other Not available Not available 09/20/2023 7258 RxNorm React ion: unkno wn, unspe cifie d;; Not Available [facility] 4 00:49:48 Medications Name Sig Start [...] a day 06/14 completed Medicati on ID: 866138 D uration Value: 10 Brand Name: ciproflo [...] mg tablet 2017 active Medicati on ID: 230353 D uration Value: 30 Brand Name: cyprohep [...] topical solution 01/11 completed Medicati on ID: 197522 D uration Value: 14 Prescri bed By [...] small amount 2020 active Medicati on ID: 966033 D uration Value: 7 Prescri bed By [...] drops,randy pension 01/11 completed Medicati on ID: 509473 P rescribe d By Name: AZUCENA Andrade [...] 5 drop 2020 active Medicati on ID: 492023 D uration Value: 30 Prescri bed By [...] by mouth 10/19 completed Medicati on ID: 875345 D uration Value: 30 Prescri bed By Name: Paula Leon VINAY Kruger nd Name: omeprazo le Send Method: E-Prescr ibed Sub s Allowed: subs OK Speci al Instruct ion: Take 1 tablet by mouth every day before a meal Med icationG enericNa me: omeprazo le Medic ation ID: [id number] D uration Value: 30 Prescri bed By [...] Available No t Available Comfort EZ Pen [place] 32 gauge x 5/32 USE TO INJECT [...] both nostrils 2019 active Medicati on ID: 579058 D uration Value: 30 Prescri bed By [...] Available No t Available FreeStyle [place] 2 [place] USE DIRECTED active Not Available Not Available No t Available Trulicity 4.5 mg/0.5 mL subcutane ous pen injector INJECT THE CONTENT OF 1 pen SUBCUTAN EOUSLY EVERY WEEK. USE ON THE same DAY EVERY WEEK. rotate injectio n [facility] 10/19 completed Not Available Not Available Not [...] Updated DateTime 06/14/2024 157.48 cm 36.9 kg/m2 95346.66 g Nlya Rowland [place] - [facility] 06/14/2024 09:18:50 Date Recorded Body height Body mass index (BMI) Body weight Provider Name and Address Organization Details Last Updated DateTime 10/20/2023 157.48 cm 38.2 kg/m2 67155.81 g Nyla Rowland [place] - [facility] 10/20/2023 13:21:31 Date Recorded Body height Body mass index (BMI) Body weight Provider Name and Address Organization Details Last Updated DateTime 12/27/2023 157.48 cm 35.5 kg/m2 51150.92 g Nyla Janett [facility] 12/27/2023 13:07:29 Date Recorded Body height Body mass index (BMI) Body weight Provider Name and Address Organization Details Last Updated DateTime 01/12/2024 157.48 cm 35.5 kg/m2 75275.92 g Nyla Janett [facility] 01/12/2024 13:05:16 Social History None recorded. [...] Note [id number] DURAN NELSON MD [facility] on [address] [place] [phone] 10/20/2023 13:04:44 10/20/2023 14:59:17 Otalgia of left ear 1119417383 H92.02 63 yo F presents for follow up of her left ear. She is here for scheduled cerumen removal, but she is concerned about persistent pain. She was seen in [place] at the end of January and had [...] of her neurology visit. Trigeminal neuralgia 316 [address]2279 G50.0 [id number] DURAN NELSON MD [facility] on [address] [place] [address] 12/27/2023 13:00:52 12/27/2023 13:42:13 Diffuse otitis externa 06908223 H60.312 Otalgia of left ear 1010 023158 H92.02 63 yo F presents for follow up of her left ear. She is here for scheduled cerumen removal, but she is concerned about persistent pain. She was seen in [place] at the end of January and had [...] Lotrisone into the canal. Follow-up 2 weeks. [id number] DURAN NELSON MD [facility] on [address] [place] [phone] 01/12/2024 12:56:02 01/12/2024 14:21:07 Otalgia of left ear 3103994810 H92.02 63 yo F presents for follow up of her left ear. Lotrisone is gone. No infection. Middle ear aerated. she can continue the vinegar drops for maintenanc e as lotrisone sparingly to the EAC meatus. Follow up three months for reassessme nt and cleaning. [id number] DURAN NELSON MD [facility] on [address] [place] [phone] 06/14/2024 09:03:19 06/14/2024 09:30:18 Otalgia of left ear 0641133599 H92.02 63 yo F presents for follow up of her left ear. No infection. Middle ear aerated. she can continue the vinegar drops for maintenanc e and lotrisone sparingly to the EAC meatus as needed. Follow up three months for reassessme nt. Will recheck hearing then. If ear canal is healthy appearing at that visit, we will stretch follow-up to 6 months. [id number] TYESHA CARRION PA-C [facility] on [address] [place] [address] 09/13/2024 14:30:16 09/13/2024 15:19:39 Abnormal auditory perception 53521156 H93.292 [id number] Audiologic al evaluation results: Right ear: Normal [...] Yost Member ID Guarantor Name 10/20/[address] [facility] - PREFERRED (MEDICARE SUPPLEMENT) [id number] Maribell H Colon [id number] 1 Maribell H Colon 09/13/[address] [facility] [id number] Maribell H Colon [id number] 1 Maribell H Colon Notes Date Note Type Note Provider Name and Address Organization Details Recorded Time 10/20/2023 text/html ROS as noted in the HPI 63 yo F presents for follow up of her left ear. She is here for scheduled cerumen removal, but she is concerned about persistent pain. She was seen in [place] at the end of January and had [...] a CT scan of the neck at [place] which did not show any sign of [...] mouth to to tightness DURAN NELSON MD [address] [place] [address], [phone], [place] - [facility] 10/30/2023 18:46:54 12/27/2023 text/html ROS as noted in the HPI 63-year-old female presents today for follow-up and reassessment of her ear. PV:63 yo F presents for follow up of her left ear. She is here for scheduled cerumen removal, but she is concerned about persistent pain. She was seen in [place] at the end of January and had [...] a CT scan of the neck at [place] which did not show any sign of [...] to to tightness DURAN NELSON MD [address] [facility],[address], [address], [place] - [facility] 01/03/2024 08:17:01 01/12/2024 text/html ROS as noted in the HPI 63 yo F presents for follow up after lotrisone injection on the left. She does feel improvement in left otalgia. \ She was seen in [place] at the end of January and had [...] symptoms on the left. DURAN NELSON MD [address] [place] [address],[address], [address], [facility] - [facility] [place] 01/18/2024 06:10:12 06/14/2024 text/html Oxcarbazepine helping with [...] recent AIC 7.4. DURAN NELSON MD [address] [facility],[address], [address], [facility] 06/14/2024 09:30:26 09/13/2024 text/html ROS as noted in the HPI 63 year old female presents for 3 month follow up of her left ear. She reports continued itching. She has been using Vinegar drops. She still has sensation that there is something in the ear after a shower. DURAN NELSON MD [address] [facility],[address] [address], [place], [address], [facility] 09/17/2024 08:17:08 OBGyn Episode No OBEpisode recorded.
[2025-03-29 14:33] VITALS: BMI 41.9
--- NOTE | 2025-04-01 11:08 | HO.ANESPROP2 ---
Documented by User: Yanet Feng NP 04/01/25 11:17 HPI - Anesthesia Eval Consult details Narrative: 64 yr old female for Cystoscopy Bladder Botox Injection BMI 42 s/p above procedure 08/2024 with TIVA [place] [facility] [place] with headache, tingling, diagnosed with cluster headache, head CT was neg, prescribed home O2 to use during HAs. Anesthesia Pre-Procedure Meds Is the patient on any of the following meds?: GLP1/DPP4 PMFSH Active Problems Active Problems: All Active Problems (Updated 03/26/25 @ 21:37 by Russ Parmar PA-C) On antiepileptic therapy (Acute) Cluster headache (Acute) Ulnar neuropathy (Acute) Carpal tunnel syndrome (Acute) OAB (overactive bladder) (Acute) Neuroforaminal stenosis of cervical spine (Acute) Urge incontinence of urine (Acute) Spastic neurogenic bladder (Acute) Cervical dystonia (Acute) Left temporal headache (Acute) Left-sided temporomandibular joint pain-dysfunction syndrome (Acute) Cervicalgia (Acute) Acute diarrhea (Acute) Lower urinary tract symptoms (Acute) Giant cell arteritis (Acute) Multiple food allergies (Acute) Multiple drug allergies (Acute) GERD (gastroesophageal reflux disease) (Acute) Lumbosacral radiculopathy due to degenerative joint disease of spine (Acute) Generalized anxiety disorder (Acute) Amputation of left lower extremity below knee (Acute) Chronic deep vein thrombosis (DVT) (Acute) Chronic anticoagulation (Acute) Peripheral arterial disease (Acute) Chronic, continuous use of opioids (Acute) Chronic pain (Acute) Chronic kidney disease, stage 3 (Acute) IDDM (insulin dependent diabetes mellitus) (Acute) High cholesterol (Acute) MUSA (obstructive sleep apnea) (Acute) Asthma (Acute) Morbid obesity (Acute) Pelvic floor dysfunction in female (Acute) Urinary incontinence (Acute) Gastroparesis (Acute) HTN (hypertension) (Acute) Diabetes mellitus (Acute) Past Medical History Medical History Amputated toe of right foot Ganglion cyst Gastroparesis COVID-19 HTN (hypertension) Diabetes mellitus Urinary incontinence UTI (urinary tract infection) Family History Family history of problems with anesthesia: No Surgical History Surgical History S/P carpal tunnel release (12/24/24) Hx of cystoscopy (09/04/24) History of left below knee amputation S/P carpal tunnel release (02/25/25) History of surgical removal of ganglion cyst S/P rotator cuff repair History of surgery History of Problems with Anesthesia: No Social History Social History Household Members: Spouse Housing: House Are you a primary foster care social worker to a significant other at home: No Do you presently have visiting nurse or other home services: No Alcohol intake: never Patient Tobacco Use Status: Former Tobacco user Use of substances other than those prescribed or required for medical reasons: No Substance Use Type: Marijuana Have you been hit, kicked, punched, or otherwise hurt by someone within the past year? If so, by whom?: No Advance Directives: No Advance Directives Information Provided: Yes Advance Directives on File: No Current occupational status: disabled Current occupation: rt handed Meds Allergies Allergy/AdvReac Type Severity Reaction Status Date / Time octopus Allergy Severe Anaphylaxis Verified 03/26/25 15:18 oxybutynin Allergy Severe Difficulty Verified 03/26/25 15:18 Swallowing tolterodine Allergy Severe Difficulty Verified 03/26/25 15:18 Swallowing aspirin Allergy Unknown anaphylaxis Verified 03/26/25 15:18 citalopram Allergy Unknown Unknown Verified 03/26/25 15:18 empagliflozin (From Allergy Unknown Unknown Verified 03/26/25 15:18 Jardiance) Fish Containing Products Allergy Unknown Unknown Verified 03/26/25 15:18 gabapentin Allergy Unknown hives Verified 03/26/25 15:18 hydrocodone (Vicodin) Allergy Unknown hives Verified 03/26/25 15:18 naproxen (Naprosyn) Allergy Unknown anaphylaxis Verified 03/26/25 15:18 pregabalin (From Lyrica) Allergy Unknown Unknown Verified 03/26/25 15:18 sertraline Allergy Unknown Unknown Verified 03/26/25 15:18 shellfish derived Allergy Unknown Unknown Verified 03/26/25 15:18 peanut Allergy Anaphylaxis Verified 03/26/25 15:18 solifenacin AdvReac phlegm Verified 03/26/25 15:18 Vicodin Allergy Unknown hives Uncoded 03/26/25 15:18 Home Medications ?Medication ?Instructions ?Recorded ?Confirmed ?Last Taken ?Type alcohol swabs pad topical TID 10/16/20 07/30/24 Unknown History amlodipine 5 mg tablet 5 mg PO DAILY 10/16/20 03/29/25 04/02/25 History apixaban 5 mg tablet (Eliquis) 5 mg PO BID 10/16/20 03/29/25 03/29/25 History atorvastatin 10 mg tablet 10 mg PO DAILY 10/16/20 03/29/25 04/02/25 History blood sugar diagnostic #10 ea 10/16/20 07/30/24 Unknown History cholecalciferol (vitamin D3) 50 50 mcg PO BEDTIME 10/16/20 03/29/25 Unknown History mcg (2,000 unit) capsule citalopram 40 mg tablet 40 mg PO DAILY 10/16/20 03/29/25 04/02/25 History diclofenac sodium 1 % topical gel g topical 10/16/20 07/30/24 Unknown History fluticasone propionate 50 0 mcg intranasal BID 10/16/20 03/29/25 Unknown History mcg/actuation nasal spray,suspension hydrochlorothiazide 25 mg tablet 25 mg PO QAM 10/16/20 03/29/25 Unknown History lancets 30 gauge #100 ea 10/16/20 07/30/24 Unknown History loratadine 10 mg tablet 10 mg PO DAILY 10/16/20 03/29/25 04/02/25 History losartan 100 mg tablet 100 mg PO DAILY 10/16/20 03/29/25 09/04/24 History metoprolol succinate 100 mg 100 mg PO DAILY 10/16/20 03/29/25 04/02/25 History tablet,extended release 24 hr montelukast 10 mg tablet 10 mg PO DAILY 10/16/20 03/29/25 04/02/25 History pen needle, diabetic 32 gauge x #50 ea 10/16/20 07/30/24 Unknown History temazepam 30 mg capsule 30 mg PO BEDTIME PRN Sleep 10/16/20 03/29/25 Unknown History triamcinolone acetonide 0.025 % appl topical 10/16/20 07/30/24 Unknown History topical cream insulin glargine 100 unit/mL (3 unit subcut BEDTIME 08/14/21 07/30/24 Unknown History mL) subcutaneous pen (Lantus Solostar U-100 Insulin) insulin lispro 100 unit/mL 30 unit subcut TID 08/14/21 03/29/25 Unknown History subcutaneous pen ezetimibe 10 mg tablet 10 mg PO DAILY 01/13/23 03/29/25 04/02/25 History hydroxyzine HCl 25 mg tablet 25 mg PO DAILY 01/13/23 03/29/25 Unknown History lorazepam 1 mg tablet 1 mg PO BID 01/13/23 03/29/25 Unknown History metformin 850 mg tablet 850 mg PO BID 01/13/23 03/29/25 Unknown History citalopram 20 mg tablet 20 mg PO DAILY 09/28/24 03/29/25 04/02/25 History semaglutide 0.25 mg or 0.5 mg (2 mg subcut 09/28/24 03/25/25 History mg/3 mL) subcutaneous pen injector (Ozempic) Exam Height,Weight and Vital Signs: Height 5 ft 2 in Weight 103.873 kg Narrative Narrative: EKG 03/26/25 Vent. Rate : 86 BPM Atrial Rate : 86 BPM P-R Int : 144 ms QRS Dur : 86 ms QT Int : 374 ms P-R-T Axes : 39 18 21 degrees QTcB Int : 447 ms Normal sinus rhythm Possible Anterior infarct (cited on or before 12-Feb-2025) Abnormal ECG When compared with ECG of 12-Feb-2025 09:12, No significant change was found Assessment and Plan Final Anesthetic Review Family History of Problems with Anesthesia: No History of Problems with Anesthesia: No Documented by User: Dylan Smith MD 04/02/25 07:30 [facility] Past Medical History Medical History Amputated toe of right foot Ganglion cyst Gastroparesis COVID-19 HTN (hypertension) Diabetes mellitus Urinary incontinence UTI (urinary tract infection) Functional capacity: independent ambulation Surgical History Surgical History S/P carpal tunnel release (12/24/24) Hx of cystoscopy (09/04/24) History of left below knee amputation S/P carpal tunnel release (02/25/25) History of surgical removal of ganglion cyst S/P rotator cuff repair History of surgery Social History Social History Household Members: Spouse Housing: House Are you a primary foster care social worker to a significant other at home: No Do you presently have visiting nurse or other home services: No Alcohol intake: never Patient Tobacco Use Status: Former Tobacco user Use of substances other than those prescribed or required for medical reasons: No Substance Use Type: Marijuana Have you been hit, kicked, punched, or otherwise hurt by someone within the past year? If so, by whom?: No Advance Directives: No Advance Directives Information Provided: Yes Advance Directives on File: No Current occupational status: disabled Current occupation: rt handed Meds Allergies Allergy/AdvReac Type Severity Reaction Status Date / Time octopus Allergy Severe Anaphylaxis Verified 03/26/25 15:18 oxybutynin Allergy Severe Difficulty Verified 03/26/25 15:18 Swallowing tolterodine Allergy Severe Difficulty Verified 03/26/25 15:18 Swallowing aspirin Allergy Unknown anaphylaxis Verified 03/26/25 15:18 citalopram Allergy Unknown Unknown Verified 03/26/25 15:18 empagliflozin (From Allergy Unknown Unknown Verified 03/26/25 15:18 Jardiance) Fish Containing Products Allergy Unknown Unknown Verified 03/26/25 15:18 gabapentin Allergy Unknown hives Verified 03/26/25 15:18 hydrocodone (Vicodin) Allergy Unknown hives Verified 03/26/25 15:18 naproxen (Naprosyn) Allergy Unknown anaphylaxis Verified 03/26/25 15:18 pregabalin (From Lyrica) Allergy Unknown Unknown Verified 03/26/25 15:18 sertraline Allergy Unknown Unknown Verified 03/26/25 15:18 shellfish derived Allergy Unknown Unknown Verified 03/26/25 15:18 peanut Allergy Anaphylaxis Verified 03/26/25 15:18 solifenacin AdvReac phlegm Verified 03/26/25 15:18 Vicodin Allergy Unknown hives Uncoded 03/26/25 15:18 Home Medications ?Medication ?Instructions ?Recorded ?Confirmed ?Last Taken ?Type alcohol swabs pad topical TID 10/16/20 07/30/24 Unknown History amlodipine 5 mg tablet 5 mg PO DAILY 10/16/20 03/29/25 04/02/25 History apixaban 5 mg tablet (Eliquis) 5 mg PO BID 10/16/20 03/29/25 03/29/25 History atorvastatin 10 mg tablet 10 mg PO DAILY 10/16/20 03/29/25 04/02/25 History blood sugar diagnostic #10 ea 10/16/20 07/30/24 Unknown History cholecalciferol (vitamin D3) 50 50 mcg PO BEDTIME 10/16/20 03/29/25 Unknown History mcg (2,000 unit) capsule citalopram 40 mg tablet 40 mg PO DAILY 10/16/20 03/29/25 04/02/25 History diclofenac sodium 1 % topical gel g topical 10/16/20 07/30/24 Unknown History fluticasone propionate 50 0 mcg intranasal BID 10/16/20 03/29/25 Unknown History mcg/actuation nasal spray,suspension hydrochlorothiazide 25 mg tablet 25 mg PO QAM 10/16/20 03/29/25 Unknown History lancets 30 gauge #100 ea 10/16/20 07/30/24 Unknown History loratadine 10 mg tablet 10 mg PO DAILY 10/16/20 03/29/25 04/02/25 History losartan 100 mg tablet 100 mg PO DAILY 10/16/20 03/29/25 09/04/24 History metoprolol succinate 100 mg 100 mg PO DAILY 10/16/20 03/29/25 04/02/25 History tablet,extended release 24 hr montelukast 10 mg tablet 10 mg PO DAILY 10/16/20 03/29/25 04/02/25 History pen needle, diabetic 32 gauge x #50 ea 10/16/20 07/30/24 Unknown History temazepam 30 mg capsule 30 mg PO BEDTIME PRN Sleep 10/16/20 03/29/25 Unknown History triamcinolone acetonide 0.025 % appl topical 10/16/20 07/30/24 Unknown History topical cream insulin glargine 100 unit/mL (3 unit subcut BEDTIME 08/14/21 07/30/24 Unknown History mL) subcutaneous pen (Lantus Solostar U-100 Insulin) insulin lispro 100 unit/mL 30 unit subcut TID 08/14/21 03/29/25 Unknown History subcutaneous pen ezetimibe 10 mg tablet 10 mg PO DAILY 01/13/23 03/29/25 04/02/25 History hydroxyzine HCl 25 mg tablet 25 mg PO DAILY 01/13/23 03/29/25 Unknown History lorazepam 1 mg tablet 1 mg PO BID 01/13/23 03/29/25 Unknown History metformin 850 mg tablet 850 mg PO BID 01/13/23 03/29/25 Unknown History citalopram 20 mg tablet 20 mg PO DAILY 09/28/24 03/29/25 04/02/25 History semaglutide 0.25 mg or 0.5 mg (2 mg subcut 09/28/24 03/25/25 History mg/3 mL) subcutaneous pen injector (Ozempic) Exam Exam Date and Time: 04/02/25 Airway Mallampati Class: II TM Dist: >3cm Neck ROM: Full Heart: normal Lungs: normal Other: normal Assessment and Plan Assessment Anesthesia Assessment: Anesthesia Plan Discussed and Chart Reviewed Final Anesthetic Review NPO: Yes ASA Class: II and III Final Preanesthetic Review: No Changes in Pt Med Stat, Meds/Allgs Chart Reviewed, Consent Obtained/Reviewed and Anes Risks/Benef Reviewed Patient Risk: Intermediate Procedure Risk: Intermediate Anesthetic Plan Anesthetic Plan: GA Disposition: Standard PACU
[2025-04-02] VITALS (7 sets, daily range): BP systolic 139–163; BP diastolic 52–61; PULSE 79–83; RESP 13–20; TEMP 36.6–37.4; O2SAT 96–100
[2025-04-02 06:13] LABS: Glucose, Whole Blood 223 mg/dL (60-115)
[2025-04-02] MEDS: Lactated Ringers 1,000 ML 100 ML IVCONT (07:11)
--- NOTE | 2025-04-02 07:20 | P.OP_ITS ---
Operative Note Operative Note Date of Service: 04/02/25 Narrative: PREOP DIAGNOSIS: Neurogenic bladder OAB POSTOP DIAGNOSIS: Neurogenic bladder OAB PROCEDURE: CYSTOSCOPY, BLADDER BOTOX INJECTION 100 UNITS SURGEON: Nahun Aldana MD ANESTHESIA: General Details of procedure: The patient was brought into the operating room placed on the OR table in supine position. Antibiotics confirmed. General anesthesia was administered. The patient was repositioned into lithotomy position, prepped and draped in the usual sterile fashion. Time-out was done per protocol. A 22 fr cystoscope was placed transurethrally into the bladder. Urine was sent for culture. The right and left ureteral orifices were visualized. There were moderate trabeculations noted. There were no suspicious bladder lesions seen. The Botox 100 units was mixed with 10 cc of normal saline and transurethral injections were placed into the posterior wall of the bladder. 0.5cc placed at each injection site. Injections were placed in a grid 5 across and 4 longitudin ally. Injections were placed from the inferior to superior position. 2% lidocaine urojet was passed transurethrally into the bladder. The patient was brought out of anesthesia and taken to recovery in stable condition. Complications: None EBL: minimal (<5 mL) Drains: none
--- NOTE | 2025-04-02 07:20 | MHC.SHP ---
Pre-Procedural Eval Section A - 24 Hr Update-Section A only Date of Service: 04/02/25 The patient is an INPATIENT: No The patient has been examined within 24 hours of the surgical procedure. The History & Physical has been completed within 30 days and I have reviewed it.: Yes Section B - Complete if H&P > 30 days Chief Complaint: Overactive bladder Allergies: Allergies Allergy/AdvReac Type Severity Reaction Status Date / Time octopus Allergy Severe Anaphylaxis Verified 03/26/25 15:18 oxybutynin Allergy Severe Difficulty Verified 03/26/25 15:18 Swallowing tolterodine Allergy Severe Difficulty Verified 03/26/25 15:18 Swallowing aspirin Allergy Unknown anaphylaxis Verified 03/26/25 15:18 citalopram Allergy Unknown Unknown Verified 03/26/25 15:18 empagliflozin (From Allergy Unknown Unknown Verified 03/26/25 15:18 Jardiance) Fish Containing Products Allergy Unknown Unknown Verified 03/26/25 15:18 gabapentin Allergy Unknown hives Verified 03/26/25 15:18 hydrocodone (Vicodin) Allergy Unknown hives Verified 03/26/25 15:18 naproxen (Naprosyn) Allergy Unknown anaphylaxis Verified 03/26/25 15:18 pregabalin (From Lyrica) Allergy Unknown Unknown Verified 03/26/25 15:18 sertraline Allergy Unknown Unknown Verified 03/26/25 15:18 shellfish derived Allergy Unknown Unknown Verified 03/26/25 15:18 peanut Allergy Anaphylaxis Verified 03/26/25 15:18 solifenacin AdvReac phlegm Verified 03/26/25 15:18 Vicodin Allergy Unknown hives Uncoded 03/26/25 15:18 Plan Diagnosis/Plan: Unchanged I have reviewed the history and physical and performed a pertinent physical examination on my patient. No changes have occurred unless specified. Cyatoscopy. Bladder botox injection. I have discussed risks to include hematuria, UTI, urinary retention, need to repeat procedure for sustained efficacy. Time Spent With Patient Time: Total time managing care of this patient today ____ minutes.
== END 2025-04-02 09:29 | disposition home or self-care (01) ==
PROVIDERS: PCP Hospitalist; Visit Provider Urology
PROC: 3E0K8GC Introduction of Other Therapeutic Substance into Genitourinary Tract, Via Natural or Artificial Opening Endoscopic (ICD-10-PCS; CPT 52287; principal; 2025-04-02 07:30)
DX: N32.81 Overactive bladder (principal); N31.8 Other neuromuscular dysfunction of bladder; N39.41 Urge incontinence; N32.89 Other specified disorders of bladder; Z89.421 Acquired absence of other right toe(s); Z79.01 Long term (current) use of anticoagulants; Z79.899 Other long term (current) drug therapy; Z88.5 Allergy status to narcotic agent; Z88.6 Allergy status to analgesic agent; Z88.8 Allergy status to other drugs, medicaments and biological substances; Z91.010 Allergy to peanuts; Z91.013 Allergy to seafood; Z98.890 Other specified postprocedural states; Z87.891 Personal history of nicotine dependence
CPT/HCPCS: 52287; 82947; 87086; 87088; 87186; J0131; J0585; J0690; J1100; J2003; J2405; J2704; J3010

== ENCOUNTER → 2025-04-02 05:35 | Outpatient (BNV) | payer OTHER, SELFPAY | PROVIDERS: PCP Hospitalist; Visit Provider Urology | DX: N32.81 Overactive bladder (principal) | CPT/HCPCS: 52287 ==

== ENCOUNTER → 2025-04-15 10:20 | Outpatient (BNVA) | payer OTHER, SELFPAY | PROVIDERS: PCP Hospitalist; Visit Provider Urology | DX: N32.81 Overactive bladder (principal) | CPT/HCPCS: 51798 ==